=== PATIENT | female | born 1935 | race Caucasian/White ===

== ENCOUNTER 2017-08-02 10:39 | Emergency (ER) | payer MEDICARE, OTHER ==
[~2017-08-02] VITALS: Ht 160 cm; Wt 60.8 kg
[~2017-08-02 10:39] MED LIST: NKM; NORCO 5-325 TA1 EACH ORAL
[2017-08-02] MEDS ORDERED: Tetanus/Diptheria/Pertussis Vaccine 0.5ml Syr IM ONE (11:30)
[2017-08-02] MEDS ORDERED: AUGMENTIN 875-1 EAC1 ORAL (11:49)
[2017-08-02 12:10] VITALS: BP 107/60
--- NOTE | 2017-08-02 14:09 | Emergency Room Report ---
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 family reports that the patient does have some underlying dementia She also does get out of the house intermittently and the exact source of injury is not clear Otherwise no reports of fever Patient denies any knee pain denies any ankle pain/ Allergies: Coded Allergies: No Known Allergies (Unverified , 08/10/13) Patient History Past Medical History: see triage record Pertinent Family History: none Last Menstrual Period: na Reviewed Nursing Documentation: PMH: Agreed, PSxH: Agreed Nursing Documentation-PMH Past Medical History: No History, Except For Hx Cardiac Problems: Yes Hx Hypertension: Yes Hx Pacemaker: Yes Hx Diabetes: Yes Review of Systems All Other Systems: negative except mentioned in HPI Physical Exam Vital Signs Date Time Temp Pulse Resp B/P (MAP) Pulse Ox O2 Delivery O2 Flow Rate FiO2 08/02/17 10:53 97.8 61 18 92/56 96 Room Air 97.9 Sp02 EP Interpretation: reviewed, normal General Appearance: well appearing, no apparent distress Head: normocephalic, atraumatic Eyes: bilateral eye PERRL, bilateral eye EOMI ENT: normal pharynx Neck: supple, thyroid normal Respiratory: lungs clear, normal breath sounds Cardiovascular #1: regular rate, rhythm Gastrointestinal: non tender, soft Musculoskeletal: normal inspection Neurologic: alert, responsive Skin: other - Patient has a semicircular approximately 3 cm laceration, appears to be secondarily scabbing already, no signs of surrounding erythema or fluctuance Lymphatic: no adenopathy Procedures Laceration/Wound Repair Laceration/Wound Repair : Consent: Verbal Wound Location: lower extremity Wound's Depth, Shape: into muscle, irregular Wound Length (cm): 3 Wound Explored: contaminated Irrigated w/ Saline (ccs): 100 Betadine Prep?: Yes Wound Debrided: minimal Layer Closure?: No Sterile Dressing Applied?: Yes Patient Tolerated: Well Complications: None Progress After appropriate cleansing patient had Steri-Strips applied the top of the laceration, the area has started to secondarily heal, further suture would be an appropriate Medical Decision Making Diagnostic Impression: Primary Impression: laceration ER Course Patient had wound care as noted above Area does not appear to be actively infected Already secondarily healing therefore suture was not applied Patient placed on oral antibiotics requires close outpatient follow-up as was concern for possible secondary infection Specifically given the patient's diabetic history Last Vital Signs Date Time Temp Pulse Resp B/P (MAP) Pulse Ox O2 Delivery O2 Flow Rate FiO2 08/02/17 12:10 98.0 87 20 107/60 99 Room Air 98.0 Status: improved Disposition: HOME, SELF-CARE Condition: Improved Scripts Amoxicillin/Potassium Clav 875-125* (AUGMENTIN 875-125 TABLET*) 1 Each Tablet 1 TAB ORAL TWICE A DAY, #14 TAB Prov: Albino Santos DO 08/02/17 Referrals: NOT CHOSEN IPA/MD,REFERRING (PCP) Patient Instructions: Skin Tear Care, [id number], Nonsutured Laceration Care Additional Instructions: Patient is provided with the discharge instructions notified to follow up with primary doctor in the next 2-3 days otherwise return to the er with any worsening symptoms. Please note that this report is being documented using AccuRev technology. This can lead to erroneous entry secondary to incorrect interpretation by the dictating instrument. Albino Santos DO Aug 02, 2017 14:09
== END 2017-08-02 12:10 | disposition home or self-care (01) ==
LOC: EMR 11:30
DX: S81.812A Laceration without foreign body, left lower leg, initial encounter (principal); X58.XXXA Exposure to other specified factors, initial encounter; Y92.9 Unspecified place or not applicable; Z23 Encounter for immunization; I10 Essential (primary) hypertension; E11.9 Type 2 diabetes mellitus without complications; Z95.0 Presence of cardiac pacemaker
CPT/HCPCS: 90471; 90715; 99284

== ENCOUNTER 2017-08-27 15:17 | Emergency (ER) | payer MEDICARE, OTHER ==
[~2017-08-27] VITALS: Ht 152.4 cm; Wt 49.9 kg
[~2017-08-27 15:17] MED LIST changes: +AUGMENTIN 875-1 EAC1 ORAL
[2017-08-27] MEDS ORDERED: Sodium Chloride 500ML 500 ML IV ONE (15:27)
[2017-08-27] MEDS ORDERED: Lidocaine 2% Visc 15ml soln ORAL ONE (15:30)
[2017-08-27] MEDS ORDERED: Dicyclomine HCl 10mg/5ml oral soln ORAL ONE (15:30)
[2017-08-27] MEDS ORDERED: Mylanta II UD 30ml ORAL ONE (15:30)
--- NOTE | 2017-08-27 15:34 | Emergency Room Report ---
History of Present Illness General Chief Complaint: Abdominal Pain Source: Patient Present Illness HPI Patient is an 82-year-old female brought in by EMS after increased left-sided abdominal pain. Patient reports having increased abdominal pain associated with nausea and vomiting. She reports having a tightness sensation. She denies any hematemesis. She denies any bloody stools. Patient denies any dysuria. The patient states she's had last bowel movement yesterday. She believes that she has a hernia to the left lower abdomen. The patient had prior history of pacemaker as well as the abdominal surgery for hernia. Allergies: Coded Allergies: No Known Allergies (Unverified , 08/10/13) Patient History Past Medical History: see triage record Past Surgical History: pacemaker Reviewed Nursing Documentation: PMH: Agreed; PSxH: Agreed Nursing Documentation-PMH Past Medical History: No Stated History Hx Cardiac Problems: Yes Hx Hypertension: Yes Hx Pacemaker: Yes Hx Diabetes: Yes Review of Systems All Other Systems: negative except mentioned in HPI Physical Exam Vital Signs Date Time Temp Pulse Resp B/P (MAP) Pulse Ox O2 Delivery O2 Flow Rate FiO2 08/27/17 15:10 98.0 78 16 142/60 98 Room Air 98.1 Sp02 EP Interpretation: reviewed, normal General Appearance: normal inspection, well appearing, no apparent distress, alert, GCS 15, Chronically Ill Head: atraumatic ENT: normal ENT inspection, hearing grossly normal, normal voice Neck: normal inspection, full range of motion, supple, no bony tend Respiratory: normal inspection, lungs clear, normal breath sounds, no respiratory distress, no retraction, no wheezing Cardiovascular #1: regular rate, rhythm, no edema Gastrointestinal: normal inspection, normal bowel sounds, non tender, soft, no guarding, no hernia Genitourinary: no CVA tenderness Musculoskeletal: normal inspection, back normal, normal range of motion Neurologic: normal inspection, alert, oriented x3, responsive, cord maker III-XII nml as tested, speech normal Psychiatric: normal inspection, judgement/insight normal, mood/affect normal Skin: normal inspection, normal color, no rash Medical Decision Making Diagnostic Impression: Primary Impression: Abdominal pain Additional Impression: Colitis ER Course Patient presented for abdominal pain. Differential diagnoses included ischemic bowel, appendicitis, perforated viscus, abdominal aortic aneurysm, inferior myocardial infarction, viral gastroenteritis. Because of complexity of patient' s case laboratory testing and imaging studies were ordered. CT imaging of the abdomen pelvis read by radiology showed evidence of the colon wall thickening consistent with possible colitis. Laboratory testing was unremarkable. Patient was noted to have improvement in discomfort after IV medications for nausea. The patient was offered admission for further evaluation and treatment with [place] seismic interpreter. The patient declined inpatient treatment stated she wanted to go home. Patient was advised that she could return at any time. Labs Test 08/27/17 15:55 08/27/17 17:30 White Blood Count 6.6 K/UL (4.8-10.8) Red Blood Count 3.51 M/UL (4.20-5.40) Hemoglobin 11.7 G/DL (12.0-16.0) Hematocrit 34.0 % (37.0-47.0) Mean Corpuscular Volume 97 FL (80-99) Mean Corpuscular Hemoglobin 33.4 PG (27.0-31.0) Mean Corpuscular Hemoglobin Concent 34.6 G/DL (32.0-36.0) Red Cell Distribution Width 14.3 % (11.6-14.8) Platelet Count 194 K/UL (150-450) Mean Platelet Volume 7.9 FL (6.5-10.1) Neutrophils (%) (Auto) 61.7 % (45.0-75.0) Lymphocytes (%) (Auto) 29.2 % (20.0-45.0) Monocytes (%) (Auto) 6.4 % (1.0-10.0) Eosinophils (%) (Auto) 2.5 % (0.0-3.0) Basophils (%) (Auto) 0.3 % (0.0-2.0) Prothrombin Time 9.6 SEC (9.30-11.50) Prothromb Time International Ratio 0.9 (0.9-1.1) Activated Partial Thromboplast Time 24 SEC (23-33) Sodium Level 145 MMOL/L (136-145) Potassium Level 3.5 MMOL/L (3.5-5.1) Chloride Level 110 MMOL/L (98-107) Carbon Dioxide Level 26 MMOL/L (21-32) Anion Gap 9 mmol/L (5-15) Blood Urea Nitrogen 18 mg/dL (7-18) Creatinine 1.0 MG/DL (0.55-1.30) Estimat Glomerular Filtration Rate mL/min (>60) Glucose Level 95 MG/DL (74-106) Calcium Level 8.9 MG/DL (8.5-10.1) Total Bilirubin 0.4 MG/DL (0.2-1.0) Aspartate Amino Transf (AST/SGOT) 15 U/L (15-37) Alanine Aminotransferase (ALT/SGPT) 15 U/L (12-78) Alkaline Phosphatase 51 U/L (46-116) Troponin I 0.002 ng/mL (0.000-0.056) Total Protein 6.3 G/DL (6.4-8.2) Albumin 3.5 G/DL (3.4-5.0) Globulin 2.8 g/dL Albumin/Globulin Ratio 1.2 (1.0-2.7) Lipase 298 U/L (73-393) Urine Color Pale yellow Urine Appearance Clear Urine pH 5 (4.5-8.0) Urine Specific [place] 1.015 (1.005-1.035) Urine Protein Negative (NEGATIVE) Urine Glucose (UA) Negative (NEGATIVE) Urine Ketones Negative (NEGATIVE) Urine Occult Blood 1+ (NEGATIVE) Urine Nitrite Negative (NEGATIVE) Urine Bilirubin Negative (NEGATIVE) Urine Urobilinogen Normal MG/DL (0.0-1.0) Urine Leukocyte Esterase Negative (NEGATIVE) Urine RBC 0-2 /HPF (0 - 2) Urine WBC 0 /HPF (0 - 2) Urine Squamous Epithelial Cells None /LPF (NONE/OCC) Urine Bacteria Occasional /HPF (NONE) Last Vital Signs Date Time Temp Pulse Resp B/P (MAP) Pulse Ox O2 Delivery O2 Flow Rate FiO2 08/27/17 15:10 98.0 78 16 142/60 98 Room Air 98.1 Status: improved Disposition: HOME, SELF-CARE Condition: Stable Scripts Dicyclomine Hcl* (DICYCLOMINE HCL*) 10 Mg Capsule 10 MG PO QID, #20 CAP Prov: Randall Aguirre 08/27/17 Famotidine (PEPCID) 20 Mg Tablet 20 MG ORAL BEDTIME, #7 TAB 0 Refills Prov: Randall Aguirre 08/27/17 Randall Aguirre Aug 27, 2017 15:34
[2017-08-27 16:28] LABS: BASOPHILS % (AUTO) 0.3 % (0.0-2.0); EOSINOPHILS % (AUTO) 2.5 % (0.0-3.0); HEMOGLOBIN 11.7 G/DL (12.0-16.0); LYMPHOCYTES % (AUTO) 29.2 % (20.0-45.0); MEAN CORPUSCULAR VOLUME 97 FL (80-99); MONOCYTES % (AUTO) 6.4 % (1.0-10.0); NEUTROPHILS % (AUTO) 61.7 % (45.0-75.0); PLATELET COUNT 194 K/UL (150-450); RED BLOOD COUNT 3.51 M/UL (4.20-5.40); RED CELL DISTRIBUTION WIDTH 14.3 % (11.6-14.8); WHITE BLOOD COUNT 6.6 K/UL (4.8-10.8)
[2017-08-27 16:35] LABS: ANION GAP 9 mmol/L (5-15); BLOOD UREA NITROGEN 18 mg/dL (7-18); CALCIUM 8.9 MG/DL (8.5-10.1); CARBON DIOXIDE 26 MMOL/L (21-32); CHLORIDE 110 MMOL/L (98-107); POTASSIUM 3.5 MMOL/L (3.5-5.1); SODIUM 145 MMOL/L (136-145)
[2017-08-27 16:39] LABS: ALANINE AMINOTRANSFERASE 15 U/L (12-78); ALBUMIN 3.5 G/DL (3.4-5.0); ALBUMIN/GLOBULIN RATIO 1.2 (1.0-2.7); ALKALINE PHOSPHATASE 51 U/L (46-116); ASPARTATE AMINO TRANSFERASE 15 U/L (15-37); BILIRUBIN,TOTAL 0.4 MG/DL (0.2-1.0)
[2017-08-27 16:42] LABS: INR 0.9 (0.9-1.1)
[2017-08-27 16:55] VITALS: BP 163/83
[2017-08-27] MEDS ORDERED: UNOBMED (18:04)
[2017-08-27 18:11] LABS: APPEARANCE,URINE CLEAR; BILIRUBIN, URINE NEGATIVE (NEGATIVE); COLOR,URINE PALE YELLOW; GLUCOSE, URINE (UA) NEGATIVE (NEGATIVE); KETONES,URINE NEGATIVE (NEGATIVE); LEUKOCYTE ESTERASE ,URINE NEGATIVE (NEGATIVE); NITRITE,URINE NEGATIVE (NEGATIVE); PH,URINE 5 (4.5-8.0); PROTEIN,URINE NEGATIVE (NEGATIVE); UROBILINOGEN,URINE NORMAL MG/DL (0.0-1.0)
[2017-08-27] MEDS ORDERED: PEPCID20 MG ORAL (18:26)
[2017-08-27] MEDS ORDERED: DICYCLOMINE HCL10 MG PO (18:26)
[2017-08-27 18:40] VITALS: BP 163/83
--- NOTE | 2017-08-28 08:41 | Diagnostic Imaging Report ---
Clinical Indication: Increasing left-sided abdominal pain, nausea, vomiting, tightness sensation Technique: No oral contrast utilized, per emergency room physician request IV administration nonionic contrast. Venous phase spiral acquisition obtained through the abdomen and pelvis. Multiplanar reconstructions were generated. Total dose length product 654.97 mGycm. CTDIvol(s) 12.67 mGy. Dose reduction achieved using automated exposure control Comparison: none Findings: There is colonic diverticulosis. No evidence of diverticulitis. The appendix is normal. Small bowel loops are fluid-filled with equivocally mildly enhancing shafer. There is a moderate size hiatal hernia. The stomach and duodenum are unremarkable. No small bowel distention. No free or loculated intraperitoneal air or fluid. There are small bilateral inguinal hernias which contain only fat The liver, gallbladder, bile ducts, pancreas, spleen, adrenals are unremarkable. There are bilateral renal parapelvic cysts. There are bilateral subcentimeter renal parenchymal lesions which are too small to characterize. No retroperitoneal or mesenteric mass or adenopathy. No pelvic mass or adenopathy. Uterus and adnexal structures are unremarkable. There is bilateral L4 spondylolysis, grade 2 L4 on L5 spondylolisthesis and marked secondary degenerative change, as well as degenerative spondylosis elsewhere. There is a compression fracture deformity of the T9 vertebral body, age indeterminate. Pacemaker wires are seen in the heart. Compressive atelectatic changes are seen at both lung bases. The heart is enlarged Impression: Mildly fluid-filled small bowel loops with slightly striking bowel wall enhancement; of uncertain significance, could indicate mild enteritis changes No other acute abnormality Diverticulosis. No evidence of diverticulitis Moderate size hiatal hernia Cardiomegaly Bilateral L4 spondylolysis, resultant grade 2 no 4 on L5 spondylolisthesis and secondary degenerative change T9 vertebral body compression fracture, age indeterminate. Consider MRI for better characterization if this is considered clinically relevant Bilateral renal parapelvic cysts. Bilateral subcentimeter renal parenchymal lesions which are too small to characterize, most likely benign simple cortical cysts. No further follow-up necessary Other findings as noted, including pacemaker, small fat-containing bilateral inguinal hernias, bilateral basilar compressive pulmonary parenchymal atelectasis. This agrees with the preliminary interpretation provided overnight by [facility] teleradiology service. The CT scanner at [facility] is accredited by the [employer] and the scans are performed using protocols designed to limit radiation exposure to as low as reasonably achievable to attain images of sufficient resolution adequate for diagnostic evaluation.
--- NOTE | 2017-08-28 14:57 | Cardiology Report ---
APPROVED REPORT EKG Measurement Heart [id number] ID [id number] Normal sinus rhythm Left axis deviation Abnormal ECG
== END 2017-08-27 18:40 | disposition home or self-care (01) ==
LOC: EDBD 15:17 → EMR 17:58 → CANBEDREQ 18:33 → EMR 18:40
DX: K52.9 Noninfective gastroenteritis and colitis, unspecified (principal); K57.30 Diverticulosis of large intestine without perforation or abscess without bleeding; K44.9 Diaphragmatic hernia without obstruction or gangrene; M43.06 Spondylolysis, lumbar region; M48.54XA Collapsed vertebra, not elsewhere classified, thoracic region, initial encounter for fracture; I10 Essential (primary) hypertension; Z95.0 Presence of cardiac pacemaker; E11.9 Type 2 diabetes mellitus without complications
CPT/HCPCS: 36415; 74177; 80053; 81003; 82962; 83690; 84484; 85025; 85610; 85730; 86850; 86900; 86901; 93005; 96374; 96375; 99284; J2405; J7040; Q9967

== ENCOUNTER 2018-01-23 21:33 | Emergency (ER) | payer MEDICARE, OTHER ==
[~2018-01-23] VITALS: Ht 162.6 cm; Wt 59.0 kg
[~2018-01-23 21:33] MED LIST changes: +DICYCLOMINE HCL10 MG PO; +PEPCID20 MG ORAL; +UNOBMED
[2018-01-23 21:55] VITALS: BP 162/74
--- NOTE | 2018-01-23 22:16 | Emergency Room Report ---
History of Present Illness General Chief Complaint: Dyspnea/Respdistress Source: EMS Present Illness HPI This 82F reportedly called 911 herself. The paramedics known this patient and state usually family keeps her there if/when she calls 911 but there was no family tonight. Pt. c/o "can't breathe." However while she says that she is very excited, lively, with no difficulty. She speaks only [place] and we had a transformation consultant on the phone. There really is nothing new. No cp, no cough, no fever. No travel. We spoke with her granddaughter who confirmed nothing new and she asked us to keep patient here overnight b/c it was hard for her to come pick her up. Reportedly no change in meds. Hx. limited due to age, language. Allergies: Coded Allergies: No Known Allergies (Unverified , 08/10/13) Patient History Limited by: language barrier, age Nursing Documentation-[facility] Past Medical History: No History, Except For Hx Cardiac Problems: Yes Hx Hypertension: Yes Hx Pacemaker: Yes Hx Asthma: Yes Hx Diabetes: Yes Review of Systems All Other Systems: limited Physical Exam Vital Signs Date Time Temp Pulse Resp B/P (MAP) Pulse Ox O2 Delivery O2 Flow Rate FiO2 01/23/18 21:26 98.0 88 16 162/74 100 Room Air 98.1 General Appearance: well appearing, no apparent distress Head: normocephalic, atraumatic ENT: hearing grossly normal, normal voice Neck: full range of motion, supple Respiratory: no respiratory distress, speaking full sentences Musculoskeletal: no calf tenderness Neurologic: alert, normal gait Psychiatric: anxious Skin: no rash Medical Decision Making Diagnostic Impression: Primary Impression: Anxiety ER Course Pt. is not at all dyspneic. RR 14-16, 99% on RA, able to talk with great energy , full paragraphs without difficulty. She is an anxious person. On PE no acute abnorm. No w/u needed at this time. PE, ACS, pericarditis, pleural effusion, COPD exacerbation, asthma exacerbation , CHF exacerbation, pulmonary edema, bronchitis, URI, pneumonia A: Anxiety Last Vital Signs Date Time Temp Pulse Resp B/P (MAP) Pulse Ox O2 Delivery O2 Flow Rate FiO2 01/23/18 21:26 98.0 88 16 162/74 100 Room Air 98.1 Status: improved Disposition: HOME, SELF-CARE Condition: Stable Patient Instructions: Shortness of Breath, [id number] Marcos Mccrary M.D. Jan 23, 2018 22:16
[2018-01-23] MEDS ORDERED: LORazepam 0.5mg tab ORAL ONE (22:30)
[2018-01-24 02:50] VITALS: BP 162/74
== END 2018-01-24 02:54 | disposition home or self-care (01) ==
LOC: EDBD 21:33 → EMR 22:00
DX: F41.9 Anxiety disorder, unspecified (principal)
CPT/HCPCS: 99283

== ENCOUNTER 2018-01-31 11:30 | Inpatient (IN) | payer MEDICARE, OTHER ==
[~2018-01-31] VITALS: Ht 162.6 cm; Wt 60.8 kg
[2018-01-31 11:48] VITALS: BP 122/65
[2018-01-31] MEDS ORDERED: ASPIRIN-LOW81 MG ORAL (11:51)
[2018-01-31] MEDS ORDERED: TENORMIN25 MG ORAL (11:51)
--- NOTE | 2018-01-31 11:57 | Emergency Room Report ---
History of Present Illness General Chief Complaint: General Complaint Source: Patient, Medical Record Present Illness HPI Patient presents with complaints of shortness of breath She has also had several falls with contusion to the left hip area Patient saw me reports that the patient had called ambulance several days ago with asthma exacerbation However they were told that it was anxiety and did not come to the emergency room At this time patient feels that her breathing is worsened when laying flat She has pain to the left hip area with obvious bruising Denies any vomiting or diarrhea denies any pleurisy Allergies: Coded Allergies: No Known Allergies (Unverified , 08/10/13) Patient History Past Medical History: see triage record Pertinent Family History: none Last Menstrual Period: unk Reviewed Nursing Documentation: PMH: Agreed; PSxH: Agreed Nursing Documentation-PMH Hx Cardiac Problems: Yes Hx Hypertension: Yes Hx Pacemaker: Yes Hx Asthma: Yes Hx Diabetes: Yes Review of Systems All Other Systems: negative except mentioned in HPI Physical Exam Vital Signs Date Time Temp Pulse Resp B/P (MAP) Pulse Ox O2 Delivery O2 Flow Rate FiO2 01/31/18 11:38 98.4 64 20 122/65 Room Air 98.4 01/31/18 11:48 99 Sp02 EP Interpretation: reviewed, normal General Appearance: mild distress - Appears short of breath Head: normocephalic, atraumatic Eyes: bilateral eye PERRL, bilateral eye EOMI ENT: normal pharynx, no angioedema Neck: supple, thyroid normal Respiratory: no retraction, no accessory muscle use, crackles - And wheezing bilaterally Cardiovascular #1: regular rate, rhythm, no edema Gastrointestinal: non tender, soft Musculoskeletal: other - Bruising to the left hip with ecchymosis Neurologic: alert, oriented x3, responsive Skin: other - As above Lymphatic: no adenopathy Procedures Critical Care Time Critical Care Time 50 minutesMultiple re-evaluations initial critical presentation concerning for cardiopulmonary arrest and injury not including any procedural time Medical Decision Making Diagnostic Impression: Primary Impression: NSTEMI (non-ST elevated myocardial infarction) Additional Impressions: CHF (congestive heart failure) Pelvic fracture ER Course Patient is a fairly complex patient with multiple differential to consideration including but not limited to cardiac cardiopulmonary and vascular emergencies Patient appears short of breath some wheezing was noted as well Breathing treatment was appropriately provided Patient has done better except also reveals some congestion Lasix was provided Patient's troponin level is elevated BNP is elevated EKG shows a paced rhythm patient at this time does not have any chest pain And shows concerning findings of non-ST elevation WA Patient's CAT scan of the pelvic area also shows multiple fractures Orthopedic consultation has been made Patient will require admission and further evaluation Labs Test 01/31/18 12:00 White Blood Count 6.4 K/UL (4.8-10.8) Red Blood Count 3.08 M/UL (4.20-5.40) Hemoglobin 8.9 G/DL (12.0-16.0) Hematocrit 28.6 % (37.0-47.0) Mean Corpuscular Volume 93 FL (80-99) Mean Corpuscular Hemoglobin 28.9 PG (27.0-31.0) Mean Corpuscular Hemoglobin Concent 31.1 G/DL (32.0-36.0) Red Cell Distribution Width 17.5 % (11.6-14.8) Platelet Count 328 K/UL (150-450) Mean Platelet Volume 7.2 FL (6.5-10.1) Neutrophils (%) (Auto) 70.8 % (45.0-75.0) Lymphocytes (%) (Auto) 21.9 % (20.0-45.0) Monocytes (%) (Auto) 5.7 % (1.0-10.0) Eosinophils (%) (Auto) 1.3 % (0.0-3.0) Basophils (%) (Auto) 0.3 % (0.0-2.0) Sodium Level 144 MMOL/L (136-145) Potassium Level 4.0 MMOL/L (3.5-5.1) Chloride Level 111 MMOL/L (98-107) Carbon Dioxide Level 22 MMOL/L (21-32) Anion Gap 11 mmol/L (5-15) Blood Urea Nitrogen 11 mg/dL (7-18) Creatinine 1.0 MG/DL (0.55-1.30) Estimat Glomerular Filtration Rate mL/min (>60) Glucose Level 143 MG/DL (74-106) Calcium Level 8.9 MG/DL (8.5-10.1) Total Bilirubin 0.6 MG/DL (0.2-1.0) Aspartate Amino Transf (AST/SGOT) 27 U/L (15-37) Alanine Aminotransferase (ALT/SGPT) 24 U/L (12-78) Alkaline Phosphatase 70 U/L (46-116) Total Creatine Kinase 488 U/L (26-308) Creatine Kinase MB 2.2 NG/ML (0.0-3.6) Creatine Kinase MB Relative Index 0.4 Troponin I 0.457 ng/mL (0.000-0.056) Pro-B-Type Natriuretic Peptide 72436 pg/mL (0-125) Total Protein 6.5 G/DL (6.4-8.2) Albumin 3.2 G/DL (3.4-5.0) Globulin 3.3 g/dL Albumin/Globulin Ratio 1.0 (1.0-2.7) Lipase 180 U/L (73-393) EKG Diagnostic Results Rate: other - pa Rhythm: other ST Segments: no acute changes Rhythm Strip Diag. Results EP Interpretation: yes Rate: 60 Rhythm: no PVC's, no ectopy, other - paced Chest X-Ray Diagnostic Results Chest X-Ray Diagnostic Results : Chest X-Ray Ordered: Yes # of Views/Limited/Complete: 1 View Indication: Chest Pain EP Interpretation: Yes Interpretation: no pneumothorax, other - Cardiomegaly, pulmonary congestion Impression: Other - Acute CHF Other X-Ray Diagnostic Results Other X-Ray Diagnostic Results #1: X-Ray ordered: Pelvic # of Views/Limited Vs Complete: 1 View Indication: Pain EP Interpretation: Yes Interpretation: no soft tissue swelling, other - Superior and inferior pubic rami fractures, displaced, Impression: Other - Superior and inferior Other X-Ray Diagnostic Results #2: X-Ray ordered: left femur # of Views/Limited Vs Complete: 2 View Indication: Pain EP Interpretation: Yes Interpretation: no dislocation, no soft tissue swelling, no fractures Impression: No acute disease - Of the femur Electronically Signed by: Albino Santos DO CT/MRI/US Diagnostic Results CT/MRI/US Diagnostic Results : Impression CT pelvicComminuted left parasymphyseal fracture extending to the proximal portions of the left superior and inferior pubic rami. Mildlydistracted fracture of the superior left iliacwing paralleling and extending to the left SI joint Bilateral L4 spondylolysiswith associated anterolisthesis of L4 relative to L5with 4 mmoffset, stable compared to 08/28/17. Degenerative changeswith disc space loss, endplate osteophytes, and bilateral facet arthrosis, at L4- 5 and L5-S1. Bilateral inguinal hernias containing loops of small bowel. No evidence of obstruction. Last Vital Signs Date Time Temp Pulse Resp B/P (MAP) Pulse Ox O2 Delivery O2 Flow Rate FiO2 01/31/18 11:48 98.4 20 122/65 99 Room Air 98.4 01/31/18 11:38 64 Status: improved Disposition: ADMITTED INPATIENT Condition: Critical Albino Santos DO Jan 31, 2018 11:57
[2018-01-31] MEDS ORDERED: Levalbuterol Inh UD 1.25mg/0.5ml HHN ONE (12:00)
[2018-01-31] MEDS ORDERED: Morphine Sulfate 2mg/ml Inj IVP ONE (12:00)
[2018-01-31 12:32] LABS: BASOPHILS % (AUTO) 0.3 % (0.0-2.0); EOSINOPHILS % (AUTO) 1.3 % (0.0-3.0); HEMATOCRIT 28.6 % (37.0-47.0); HEMOGLOBIN 8.9 G/DL (12.0-16.0); LYMPHOCYTES % (AUTO) 21.9 % (20.0-45.0); MEAN CORPUSCULAR VOLUME 93 FL (80-99); MONOCYTES % (AUTO) 5.7 % (1.0-10.0); NEUTROPHILS % (AUTO) 70.8 % (45.0-75.0); PLATELET COUNT 328 K/UL (150-450); RED BLOOD COUNT 3.08 M/UL (4.20-5.40); RED CELL DISTRIBUTION WIDTH 17.5 % (11.6-14.8); WHITE BLOOD COUNT 6.4 K/UL (4.8-10.8)
[2018-01-31 12:45] LABS: ANION GAP 11 mmol/L (5-15); BLOOD UREA NITROGEN 11 mg/dL (7-18); CALCIUM 8.9 MG/DL (8.5-10.1); CARBON DIOXIDE 22 MMOL/L (21-32); CHLORIDE 111 MMOL/L (98-107); SODIUM 144 MMOL/L (136-145)
[2018-01-31 12:57] LABS: ALANINE AMINOTRANSFERASE 24 U/L (12-78); ALBUMIN 3.2 G/DL (3.4-5.0); ALKALINE PHOSPHATASE 70 U/L (46-116); ASPARTATE AMINO TRANSFERASE 27 U/L (15-37); BILIRUBIN,TOTAL 0.6 MG/DL (0.2-1.0); CKMB 2.2 NG/ML (0.0-3.6); CREATINE KINASE 488 U/L (26-308)
[2018-01-31] MEDS ORDERED: dilTIAZem HCl 25mg/5ml Inj IV PRN (14:00)
[2018-01-31 14:08] VITALS: BP 126/70
--- NOTE | 2018-01-31 14:36 | Cardiology Progress Note ---
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 gi bleed reproted otoniel contreras post pci called into dr mina [id number] Objective Last 24 Hour Vital Signs Date Time Temp Pulse Resp B/P (MAP) Pulse Ox O2 Delivery O2 Flow Rate FiO2 01/31/18 14:08 98.0 71 19 126/70 95 Room Air 98.0 01/31/18 12:52 79 23 100 Room Air 21 01/31/18 12:43 72 14 Room Air 21 01/31/18 12:43 72 14 98 Room Air 21 01/31/18 12:10 98.4 01/31/18 11:48 98.4 20 122/65 99 Room Air 98.4 01/31/18 11:38 98.4 64 20 122/65 Room Air 98.4 Laboratory Tests Test 01/31/18 12:00 White Blood Count 6.4 K/UL (4.8-10.8) Red Blood Count 3.08 M/UL (4.20-5.40) L Hemoglobin 8.9 G/DL (12.0-16.0) L Hematocrit 28.6 % (37.0-47.0) L Mean Corpuscular Volume 93 FL (80-99) Mean Corpuscular Hemoglobin 28.9 PG (27.0-31.0) Mean Corpuscular Hemoglobin Concent 31.1 G/DL (32.0-36.0) L Red Cell Distribution Width 17.5 % (11.6-14.8) H Platelet Count 328 K/UL (150-450) Mean Platelet Volume 7.2 FL (6.5-10.1) Neutrophils (%) (Auto) 70.8 % (45.0-75.0) Lymphocytes (%) (Auto) 21.9 % (20.0-45.0) Monocytes (%) (Auto) 5.7 % (1.0-10.0) Eosinophils (%) (Auto) 1.3 % (0.0-3.0) Basophils (%) (Auto) 0.3 % (0.0-2.0) Sodium Level 144 MMOL/L (136-145) Potassium Level 4.0 MMOL/L (3.5-5.1) Chloride Level 111 MMOL/L (98-107) H Carbon Dioxide Level 22 MMOL/L (21-32) Anion Gap 11 mmol/L (5-15) Blood Urea Nitrogen 11 mg/dL (7-18) Creatinine 1.0 MG/DL (0.55-1.30) Estimat Glomerular Filtration Rate mL/min (>60) Glucose Level 143 MG/DL (74-106) H Calcium Level 8.9 MG/DL (8.5-10.1) Total Bilirubin 0.6 MG/DL (0.2-1.0) Aspartate Amino Transf (AST/SGOT) 27 U/L (15-37) Alanine Aminotransferase (ALT/SGPT) 24 U/L (12-78) Alkaline Phosphatase 70 U/L (46-116) Total Creatine Kinase 488 U/L (26-308) H Creatine Kinase MB 2.2 NG/ML (0.0-3.6) Creatine Kinase MB Relative Index 0.4 Troponin I 0.457 ng/mL (0.000-0.056) Pro-B-Type Natriuretic Peptide 57223 pg/mL (0-125) H Total Protein 6.5 G/DL (6.4-8.2) Albumin 3.2 G/DL (3.4-5.0) L Globulin 3.3 g/dL Albumin/Globulin Ratio 1.0 (1.0-2.7) Lipase 180 U/L (73-393) Ihsan Fischer MD Jan 31, 2018 14:35
[2018-01-31] MEDS ORDERED: Nitroglycerin Subl 0.4mg tab SL PRN (14:43)
[2018-01-31] MEDS ORDERED: Miralax 17gm pkt ORAL PRN (14:43)
[2018-01-31] MEDS ORDERED: Albuterol/Ipratropium 3ml neb HHN PRN (14:43)
[2018-01-31] MEDS ORDERED: Enalaprilat 2.5mg/2ml Inj IV PRN (14:44)
[2018-01-31] MEDS ORDERED: Norco 5mg/325mg tab ORAL PRN ×2 (14:47→23:45)
[2018-01-31] MEDS ORDERED: Ketorolac 30mg Inj IV PRN (14:48)
[2018-01-31] MEDS ORDERED: Morphine Sulfate 2mg/ml Inj IVP PRN (14:48)
[2018-01-31 15:54] VITALS: BP 110/79
[2018-01-31 16:50] VITALS: BP 134/78
--- NOTE | 2018-01-31 18:30 | Consultation ---
DATE OF CONSULTATION: 01/31/2018 CARDIOLOGY CONSULTATION CONSULTING PHYSICIAN: Ihsan Fischer M.D. REFERRING PHYSICIAN: Rod Mancera M.D. REASON FOR REFERRAL: Abnormal cardiac enzymes. HISTORY OF PRESENT ILLNESS: This is an elderly Nigerien speaking female, who really is a poor historian. The patient was brought to the emergency room at [facility], may have had a fall, the timing of which is not really clear and part of the workup was cardiac enzymes, which were mildly abnormal and this consultation was subsequently requested. The patient is being admitted to the hospital. The patient herself denies any pain. As much as I can ascertain, she does indicate that she has had some shortness of breath. No palpitations. No dizziness. She indicates she fell from a bed to the floor, but not clear when this occurred. When she presented to the emergency room, apparently, she was complaining of shortness of breath, had several falls with contusion to her lip area, apparently had an several days ago with asthma exacerbation, and she was told that was anxiety. She does not want to come to the emergency room and apparently, she has had some shortness of breath that worsens on laying down. The patient also has had delirium while she is in the intensive care unit as noted above as well as ischemic cardiomyopathy with ejection fraction most recently at [facility] of approximately 30%. Based on last ejection fraction at [facility] on 12/24/2017, it was actually an ejection fraction of 23% with moderate mitral regurgitation and severe tricuspid regurgitation being noted with a PA pressure in the 50s. PAST MEDICAL HISTORY: Positive for recent hospitalization at [facility] where she had presented with hypotension and was noted to have a troponin of 17, underwent cardiac consultation by Dr. Oliver, was noted to have basically severe coronary disease, not be a candidate for cardiac catheterization. The patient underwent percutaneous coronary intervention of the first obtuse marginal and the left anterior descending artery. She also has significant right coronary artery disease, but the history indicates that the patient had severe agitation and was subsequently discharged home relatively quickly after her percutaneous coronary intervention. She had drug-eluting stent that was placed in the obtuse marginal 1 and another one in the 90% stenosis of left anterior descending artery. Her past medical history is positive for diabetes, hyperlipidemia, hypertension, sick sinus syndrome, status post pacemaker implantation, she has two pacemakers, one that was placed in 1999 and the other one was in 2017 for sick sinus syndrome. MEDICATIONS: Previously had been listed as including metformin, atorvastatin, Detrol, Klonopin, Tenormin, Diovan HCT, Prilosec, aspirin, Plavix, and Crestor. ALLERGIES: She has no allergy to medications. [facility] data indicates the allergies to fish product derivatives and vancomycin. SOCIAL HISTORY: She denies any smoking or drinking. REVIEW OF SYSTEMS: GASTROINTESTINAL: She denies any abdominal pain. Denies any vomiting. Denies any diarrhea. Denies any bloody or black bowel movement. GENITOURINARY: Denies any problem with her urination. PULMONARY: Denies any coughing. CONSTITUTIONAL: Denies any fevers, chills, or night sweats. PHYSICAL EXAM: GENERAL: Shows to be elderly female, in no respiratory distress. She is lying down with approximately 10 to 20 degrees head of bed elevation. NECK: Supple. LUNGS: Appear to be relatively clear to auscultation and percussion. CARDIAC: S1 is normal. S2 is normal. Regular rate. Holosystolic regurgitant murmur noted. ABDOMEN: Soft and nontender. Positive bowel sounds. EXTREMITIES: There is no edema. There is ecchymosis of the area around the left hip. NEUROLOGICAL: She is awake, alert, and responsive. LABORATORY DATA: Her blood tests at this time show white count of 6.4 with a hemoglobin of 8.9 and platelet count of 328,000. Sodium 144, potassium 4.0, chloride 111, bicarb 22, BUN of 11, creatinine 1.0, and glucose of 143. Calcium is 8.9. The CK of 488. ProBNP of 3300. Troponin of 0.457. Albumin of 3.2. Electrocardiogram shows atrial pacing, ventricular sensing with some T-wave inversions in the inferolateral leads on the ventricular spontaneously conducted QRS's and in direct comparison with her prior EKGs done on 12/24/2017 at [facility]. The T-wave inversion may not be all that new. She did have some biphasic T-waves in 2, 3, AVF, and some in lead V6 as well. There may be slightly more prominent, but that different equipment for recording was used at this time. Her chest x-ray shows cardiomegaly and two different pacemakers, one on the left and one on the right. ASSESSMENT AND PLAN: 1. History of multiple falls. 2. Pubic ramus fracture and pelvic fractures. 3. Coronary disease status post PCI of the LAD and obtuse marginal in December of 2015 with significant right coronary artery stenosis remaining. 4. Ischemic cardiomyopathy history. 5. Dementia history. 6. Delirium history. 7. Diabetes mellitus. 8. History of hypertension. 9. Permanent pacemaker implantation for sick sinus syndrome. 10. Possible gastrointestinal bleed based on communications with Dr. Oliver regarding bloody stools post PCI. Stool should be checked for occult blood. Iron studies should be performed. PLAN: Dr. Mancera, this patient was seen in cardiac consultation. She seems to be denying any chest pain at this time for what that is . Her EKG is not significantly abnormal though she does have mild troponin abnormality, which in light of the fact that she has a history of coronary disease and this needs to be followed. Her creatinine is not significantly elevated, but she is somewhat anemic with a hemoglobin of 8.9 in comparison. Her last hemoglobin at [facility] was 10.9. There are some pain medications in the [facility] chart indicating that the patient may have had some gastrointestinal bleeding and compliance with aspirin and Plavix status is unknown. The patient should have serial enzymes, EKGs, and echocardiogram be monitored and I will let Dr. Oliver, who is the patient's primary treating elevating grader operator to follow the patient along, should have stool studies, and stool for occult blood should be sent. Ihsan Fischer M.D. DR: SINDY JOB#: [id number] CC:
[2018-01-31 20:00] VITALS: BP 115/70
[2018-01-31] MEDS: Heparin 5000 units/ml inj SUBQ SCH (20:36)
[2018-02-01] VITALS: BP 140/85
[2018-02-01] MEDS ORDERED: Norco 5mg/325mg tab ORAL PRN (02:47)
[2018-02-01 04:00] VITALS: BP 145/80
[2018-02-01 05:53] LABS: INR 1.2 (0.9-1.1)
[2018-02-01 06:00] LABS: BASOPHILS % (AUTO) 0.3 % (0.0-2.0); EOSINOPHILS % (AUTO) 1.5 % (0.0-3.0); HEMATOCRIT 28.4 % (37.0-47.0); HEMOGLOBIN 8.9 G/DL (12.0-16.0); IRON 34 ug/dL (50-175); LYMPHOCYTES % (AUTO) 34.6 % (20.0-45.0); MEAN CORPUSCULAR VOLUME 94 FL (80-99); NEUTROPHILS % (AUTO) 58.6 % (45.0-75.0); PLATELET COUNT 302 K/UL (150-450); RED BLOOD COUNT 3.02 M/UL (4.20-5.40); RED CELL DISTRIBUTION WIDTH 17.9 % (11.6-14.8); WHITE BLOOD COUNT 6.2 K/UL (4.8-10.8)
[2018-02-01 06:52] LABS: ALANINE AMINOTRANSFERASE 26 U/L (12-78); ALBUMIN 3.1 G/DL (3.4-5.0); ALKALINE PHOSPHATASE 58 U/L (46-116); ANION GAP 11 mmol/L (5-15); ASPARTATE AMINO TRANSFERASE 25 U/L (15-37); BILIRUBIN,TOTAL 0.6 MG/DL (0.2-1.0); BLOOD UREA NITROGEN 17 mg/dL (7-18); CALCIUM 8.9 MG/DL (8.5-10.1); CARBON DIOXIDE 23 MMOL/L (21-32); CHLORIDE 110 MMOL/L (98-107); CHOLESTEROL 149 MG/DL (< 200); HDL CHOLESTEROL 53 MG/DL (40-60); POTASSIUM 4.2 MMOL/L (3.5-5.1); SODIUM 144 MMOL/L (136-145); TRIGLYCERIDES 69 MG/DL (30-150)
[2018-02-01] MEDS ORDERED: ALPRAZolam 0.5mg tab ORAL PRN (07:15)
[2018-02-01 08:00] VITALS: BP 147/79
[2018-02-01] MEDS: Heparin 5000 units/ml inj SUBQ SCH ×2 (08:36→20:47)
[2018-02-01] MEDS ORDERED: Aspirin Baby 81mg ORAL SCH (09:00)
[2018-02-01] MEDS ORDERED: Atenolol 25mg tab ORAL SCH (09:00)
--- NOTE | 2018-02-01 09:11 | Diagnostic Imaging Report ---
Indication: Pain, trauma Technique: CT pelvis was performed utilizing automated exposure control without intravenous contrast material. Axial, sagittal coronal images were generated. CT dose: Total DLP 384.48 mGycm; CTDI vol 12.46 mGy Comparison: CT of the abdomen and pelvis 08/27/2017 Findings: There is a comminuted left parasymphyseal fracture extending to the left inferior and, to a lesser extent, superior pubic rami. There is a mildly distracted fracture of the left superior iliac wing paralleling and extending to the left sacroiliac joint (series series 3 image #19; series 6 image #62). There is degenerative change of the spine with disc space loss, endplate osteophytes, facet arthrosis and vacuum disc phenomenon. There is bilateral L4 spondylolysis with associated anterolisthesis of L4 relative to L5 with approximately 4 mm offset. This is stable when compared to 08/27/2017. There are bilateral inguinal hernias which contain a nonobstructed loops of small bowel. There is extensive atherosclerotic calcification of the visualized abdominal aorta, with areas of circumferential calcification. Calcification of the iliac vessels also noted. There is calcifications in the posterior gluteal soft tissues. IMPRESSION: Left-sided pelvic fractures including the left pubic rami and iliac bone fractures as detailed above. 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 Bilateral inguinal hernias containing loops of small bowel. No evidence of associated small bowel obstruction. This corresponds with the statrad preliminary report. The CT scanner at [facility] is accredited by the [employer] and the scans are performed using protocols designed to limit radiation exposure to as low as reasonably achievable to attain images of sufficient resolution adequate for diagnostic evaluation.
--- NOTE | 2018-02-01 11:02 | Cardiology Report ---
APPROVED REPORT EXAM: Two-dimensional and M-mode echocardiogram with Doppler and color Doppler. INDICATION Left Ventricular Function M-Mode DIMENSIONS IVSd1.1 (0.7-1.1cm)Left Atrium (MM)5.1 (1.6-4.0cm) LVDd5.8 (3.5-5.6cm)Aortic Root2.7 (2.0-3.7cm) PWd1.1 (0.7-1.1cm)Aortic Cusp Exc.1.2 (1.5-2.0cm) LVDs4.2 (2.5-4.0cm) PWs1.4 cm Mild left ventricular enlargement. Global left ventricular hypokinesis. Left ventricular ejection fraction estimated to be 30-35 %. Borderline left ventricular hypertrophy. No evidence of pericardial effusion. Mild left atrial enlargement. Right cardiac chamber sizes are within normal limits. Aortic valve calcification with decreased cusp excursion c/w aortic stenosis. Mildly thickened mitral valve leaflets with normal excursion. Moderate mitral annulus and aortic root calcification. Normal pulmonic valve structure. Normal tricuspid valve structure. IVC dilated at 2.5 cm with physiological collapse, suggestive of increased RA pressure. A color flow and spectral Doppler study was performed and revealed: Mild aortic insufficiency. Peak aortic valve gradient of 12 mmHg and a mean of 6 mmHg. Aortic valve area 1.3 cm2 calculated by continuity equation. Moderate to severe mitral regurgitation. Mitral inflow indicates increased left atrial pressure, suggestive restrictive pattern (Grade III). Moderate tricuspid regurgitation. Tricuspid systolic velocities suggests peak right ventricular systolic pressure of 83 mmHg, consistent with severe pulmonary hypertension. Moderate pulmonic regurgitation present.
--- NOTE | 2018-02-01 11:11 | Diagnostic Imaging Report ---
Indication: Chest pain Technique: XRAY Chest 1v Comparison: 06/06/2008 Findings: Interval placement of a right-sided pacemaker with lead tips projecting over the expected regions of the right atrium and ventricle. The previously identified left sided pacemaker is unchanged. Heart is enlarged. There is interstitial opacification/edema and perihilar fullness. There are patchy bibasilar airspace opacities. There is blunting of the bilateral costophrenic sulci, right greater than left. No pneumothorax. There are degenerative changes of the spine. Impression: Cardiomegaly with interstitial opacification/edema, patchy bibasilar airspace opacities and possible trace bilateral pleural effusions. Findings are likely related to CHF/pulmonary edema. Superimposed pneumonia not excluded. Clinical correlation/follow-up recommended. Bilateral chest pacemaker is in place. This corresponds with the preliminary interpretation of the treating ER physician, as documented in the electronic medical record. Study obtained via the emergency department however patient admitted to the hospital at time of dictation of the final report.
--- NOTE | 2018-02-01 11:16 | Diagnostic Imaging Report ---
Indication: Pain Technique: XRAY Pelvis 1v Comparison: Images of the pelvis from CT of the abdomen and pelvis 08/27/2017. Findings: Bones are demineralized. There is acute fracture involving the inferior pubic ramus on the left. This likely also extends to the superior pubic ramus and parasymphyseal region. No pubic symphysis widening. Additionally there is a transverse lucency through the superior iliac bone on the left concerning for fracture. There is degenerative change of the lower lumbar spine. There are atherosclerotic vascular calcifications. Degenerative changes also noted in the bilateral hips. No radiopaque foreign body identified. IMPRESSION: Left parasymphyseal fracture. Linear lucency through the left iliac bone concerning for additional fracture.
--- NOTE | 2018-02-01 11:18 | Diagnostic Imaging Report ---
Indication: Pain Technique: XRAY Femur 2v L Comparison: None Findings: Bones appear demineralized. Fracture of the left pubic bone partially visualized. The left hip is maintained, with some degenerative change. No femoral fracture identified. Left knee joint is maintained, also some degenerative changes. There are extensive atherosclerotic vascular calcifications. No radiopaque foreign body identified. Impression: No evidence of left femoral fracture. Additional findings as above.
--- NOTE | 2018-02-01 11:43 | Consultation ---
History of Present Illness General Date patient seen: Feb 01, 2018 Chief Complaint: General Complaint Present Illness HPI 82 year old female wth hx of CAD, pacemaker, htn presented to ER by paramedics with complaints of shortness of breath, dizziness and episodes of fall. She has pain to the left hip area with obvious bruising. Her troponin was positive. She is admitted to telemetry/jaqui to rule out pacemaker malfunction and rule out arrhythmias. Allergies: Coded Allergies: No Known Allergies (Unverified , 08/10/13) Medication History Scheduled Amoxicillin/Potassium Clav 875-125* (Augmentin 875-125 Tablet*), 1 TAB ORAL TWICE A DAY Aspirin (Aspirin EC), 81 MG ORAL DAILY, (Reported) Atenolol (Tenormin), 25 MG ORAL DAILY, (Reported) Dicyclomine Hcl* (Dicyclomine Hcl*), 10 MG PO QID Famotidine (Pepcid), 20 MG ORAL BEDTIME No Known Medications* (NKM - No Known Medications*), 0 ., (Reported) Scheduled PRN Hydrocodone Bit/Acetaminophen 5-325* (Renick 5-325*), 1 TAB ORAL Q6H PRN for For Pain Miscellaneous Medications Unable to Obtain Medications (Unable To Obtain Meds), (Reported) Patient History Healthcare decision maker Resuscitation status Full Code Advanced Directive on File Past Medical/Surgical History Past Medical/Surgical History: (1) CHF (congestive heart failure) (2) Pacemaker Review of Systems All Other Systems: negative except mentioned in HPI Physical Exam General Appearance: WD/WN Lines, tubes and drains: peripheral HEENT: normocephalic, atraumatic Neck: non-tender, supple Respiratory/Chest: chest wall non-tender, lungs clear Cardiovascular/Chest: normal peripheral pulses, normal rate Abdomen: normal bowel sounds, non tender Genitourinary/Rectal: normal genital exam, normal rectal exam Skin Exam: normal pigmentation Neurologic: administrator pesticide II-XII grossly normal Last 24 Hour Vital Signs Date Time Temp Pulse Resp B/P (MAP) Pulse Ox O2 Delivery O2 Flow Rate FiO2 02/01/18 09:00 74 02/01/18 08:34 65 147/79 02/01/18 08:00 98.1 65 20 147/79 (101) 97 98.1 02/01/18 08:00 Nasal Cannula 2.0 02/01/18 04:00 83 02/01/18 04:00 Nasal Cannula 2.0 02/01/18 04:00 98.2 78 20 145/80 (101) 100 98.2 02/01/18 00:00 98.3 72 20 140/85 (103) 95 98.3 02/01/18 00:00 75 02/01/18 00:00 Nasal Cannula 2.0 01/31/18 23:33 77 20 99 Room Air 21 01/31/18 23:10 77 18 98 Room Air 21 01/31/18 22:58 79 18 Room Air 21 01/31/18 20:00 62 01/31/18 20:00 97.9 66 20 115/70 (85) 95 97.9 01/31/18 20:00 Room Air 01/31/18 17:29 Room Air 01/31/18 17:04 98.4 70 21 110/79 95 Room Air 21 98.4 01/31/18 16:50 97.7 77 20 134/78 (96) 97.7 01/31/18 15:54 98.4 70 21 110/79 95 Room Air 21 98.4 01/31/18 14:08 98.0 71 19 126/70 95 Room Air 98.0 01/31/18 12:52 79 23 100 Room Air 01/31/18 12:43 72 14 Room Air 21 01/31/18 12:43 72 14 98 Room Air 21 01/31/18 12:10 98.4 01/31/18 11:48 98.4 20 122/65 99 Room Air 98.4 01/31/18 11:38 98.4 64 20 122/65 Room Air 98.4 Intake and Output 01/31/18 02/01/18 19:00 07:00 Intake Total 120 ml Output Total 200 ml Balance -80 ml Intake Oral 120 ml Output Urine Total 200 ml # Voids 3 7 Laboratory Tests Test 01/31/18 12:00 02/01/18 03:59 White Blood Count 6.4 K/UL (4.8-10.8) 6.2 K/UL (4.8-10.8) Red Blood Count 3.08 M/UL (4.20-5.40) L 3.02 M/UL (4.20-5.40) L Hemoglobin 8.9 G/DL (12.0-16.0) L 8.9 G/DL (12.0-16.0) L Hematocrit 28.6 % (37.0-47.0) L 28.4 % (37.0-47.0) L Mean Corpuscular Volume 93 FL (80-99) 94 FL (80-99) Mean Corpuscular Hemoglobin 28.9 PG (27.0-31.0) 29.5 PG (27.0-31.0) Mean Corpuscular Hemoglobin Concent 31.1 G/DL (32.0-36.0) L 31.4 G/DL (32.0-36.0) L Red Cell Distribution Width 17.5 % (11.6-14.8) H 17.9 % (11.6-14.8) H Platelet Count 328 K/UL (150-450) 302 K/UL (150-450) Mean Platelet Volume 7.2 FL (6.5-10.1) 6.7 FL (6.5-10.1) Neutrophils (%) (Auto) 70.8 % (45.0-75.0) 58.6 % (45.0-75.0) Lymphocytes (%) (Auto) 21.9 % (20.0-45.0) 34.6 % (20.0-45.0) Monocytes (%) (Auto) 5.7 % (1.0-10.0) 5.0 % (1.0-10.0) Eosinophils (%) (Auto) 1.3 % (0.0-3.0) 1.5 % (0.0-3.0) Basophils (%) (Auto) 0.3 % (0.0-2.0) 0.3 % (0.0-2.0) Sodium Level 144 MMOL/L (136-145) 144 MMOL/L (136-145) Potassium Level 4.0 MMOL/L (3.5-5.1) 4.2 MMOL/L (3.5-5.1) Chloride Level 111 MMOL/L (98-107) H 110 MMOL/L (98-107) H Carbon Dioxide Level 22 MMOL/L (21-32) 23 MMOL/L (21-32) Anion Gap 11 mmol/L (5-15) 11 mmol/L (5-15) Blood Urea Nitrogen 11 mg/dL (7-18) 17 mg/dL (7-18) Creatinine 1.0 MG/DL (0.55-1.30) 1.0 MG/DL (0.55-1.30) Estimat Glomerular Filtration Rate mL/min (>60) mL/min (>60) Glucose Level 143 MG/DL (74-106) H 89 MG/DL (74-106) Calcium Level 8.9 MG/DL (8.5-10.1) 8.9 MG/DL (8.5-10.1) Total Bilirubin 0.6 MG/DL (0.2-1.0) 0.6 MG/DL (0.2-1.0) Aspartate Amino Transf (AST/SGOT) 27 U/L (15-37) 25 U/L (15-37) Alanine Aminotransferase (ALT/SGPT) 24 U/L (12-78) 26 U/L (12-78) Alkaline Phosphatase 70 U/L (46-116) 58 U/L (46-116) Total Creatine Kinase 488 U/L (26-308) H Creatine Kinase MB 2.2 NG/ML (0.0-3.6) Creatine Kinase MB Relative Index 0.4 Troponin I 0.457 ng/mL (0.000-0.056) 0.320 ng/mL (0.000-0.056) Pro-B-Type Natriuretic Peptide 75261 pg/mL (0-125) H Total Protein 6.5 G/DL (6.4-8.2) 6.2 G/DL (6.4-8.2) L Albumin 3.2 G/DL (3.4-5.0) L 3.1 G/DL (3.4-5.0) L Globulin 3.3 g/dL 3.1 g/dL Albumin/Globulin Ratio 1.0 (1.0-2.7) 1.0 (1.0-2.7) Lipase 180 U/L (73-393) Prothrombin Time 12.2 SEC (9.30-11.50) H Prothromb Time International Ratio 1.2 (0.9-1.1) H Activated Partial Thromboplast Time 25 SEC (23-33) Magnesium Level 1.5 MG/DL (1.8-2.4) L Iron Level 34 ug/dL (50-175) L C-Reactive Protein, Quantitative 1.0 mg/dL (0.00-0.90) H Triglycerides Level 69 MG/DL (30-150) Cholesterol Level 149 MG/DL (< 200) LDL Cholesterol 80 mg/dL (<100) HDL Cholesterol 53 MG/DL (40-60) Cholesterol/HDL Ratio 2.8 (3.3-4.4) L Thyroid Stimulating Hormone (TSH) 3.306 uiU/mL (0.358-3.740) Height (Feet): 5 Height (Inches): 4.00 Weight (Pounds): 136 Medications Current Medications Medications (Trade) Dose Ordered Sig/Yi Route PRN Reason Start Time Stop Time Status Last Admin Dose Admin Acetaminophen (Tylenol) 650 mg Q4H PRN ORAL FEVER 01/31/18 14:43 03/02/18 14:42 Acetaminophen/ Hydrocodone Bitart (Renick 5/325) 1 tab Q6H PRN ORAL Moderate Pain (Pain Scale 4-6) 01/31/18 23:45 02/07/18 23:44 02/01/18 00:04 Albuterol/ Ipratropium (Albuterol/ Ipratropium) 3 ml EVERY 4 HOURS PRN HHN Shortness of Breath 01/31/18 14:43 02/05/18 14:42 01/31/18 23:12 Alprazolam (Xanax) 1 mg Q4H PRN ORAL For Anxiety 02/01/18 07:15 02/08/18 07:14 Aspirin (ASA) 162 mg DAILY ORAL 02/01/18 09:00 03/03/18 08:59 02/01/18 08:33 Atenolol (Tenormin) 25 mg DAILY ORAL 02/01/18 09:00 03/03/18 08:59 02/01/18 08:34 Diltiazem HCl (Cardizem) 10 mg Q1H PRN IV heart rate more than 120, 01/31/18 14:00 03/02/18 13:59 Enalaprilat (Vasotec) 2.5 mg EVERY 6 HOURS PRN IV sbp more than 160 01/31/18 14:44 03/02/18 14:43 Heparin Sodium (Porcine) (Heparin 5000 units/ml) 5,000 units EVERY 12 HOURS SUBQ 01/31/18 21:00 03/02/18 20:59 02/01/18 08:36 Ketorolac Tromethamine (Toradol 30mg) 15 mg Q6HR PRN IV moderate pain ( 4-6) 01/31/18 14:48 02/05/18 14:47 Morphine Sulfate (Morphine Sulfate) 2 mg Q4H PRN IVP severe Pain (Pain Scale 7-10) 01/31/18 14:48 02/07/18 14:47 Nitroglycerin (Ntg) 0.4 mg Q5MIN X 3 DOSES PRN SL Prn Chest Pain 01/31/18 14:43 03/02/18 14:42 Ondansetron HCl (Zofran) 4 mg Q6H PRN IVP Nausea & Vomiting 01/31/18 14:43 03/02/18 14:42 Polyethylene Glycol (Miralax) 17 gm DAILYPRN PRN ORAL Constipation 01/31/18 14:43 03/02/18 14:42 Temazepam (Restoril) 15 mg HSPRN PRN ORAL Insomnia 01/31/18 21:00 02/07/18 20:59 01/31/18 23:08 Assessment/Plan Problem List: (1) Dyspnea ICD Codes: R06.00 - Dyspnea, unspecified SNOMED: 910364001 (2) Pacemaker ICD Codes: Z95.0 - Presence of cardiac pacemaker SNOMED: 835596539 (3) NSTEMI (non-ST elevated myocardial infarction) ICD Codes: I21.4 - Non-ST elevation (NSTEMI) myocardial infarction SNOMED: 529186401 Assessment/Plan pt's cxr is clear she in not a high risk for PE f/u troponin check echo f/u cardiology recommendations keep bp at high normal levels Rod Mancera MD Feb 01, 2018 11:43
[2018-02-01 12:00] VITALS: BP 142/70
[2018-02-01] MEDS ORDERED: dilTIAZem HCl 25mg/5ml Inj IV PRN (16:28)
[2018-02-01] MEDS ORDERED: Miralax 17gm pkt ORAL PRN (16:29)
[2018-02-01] MEDS ORDERED: Nitroglycerin Subl 0.4mg tab SL PRN (16:30)
--- NOTE | 2018-02-01 16:48 | Cardiology Progress Note ---
Assessment/Plan Assessment/Plan congestive heart failure, systolic, acute on chronic ischenmic cardiomyopathy severe demential and delirium the patient is agitated, standing in the soler and refusing to cooperate I spoke to the nurse and recommended to call admitting physician for sedation Subjective Subjective the patient is agitated and delirious, refusing to go to her room and screaming Objective Last 24 Hour Vital Signs Date Time Temp Pulse Resp B/P (MAP) Pulse Ox O2 Delivery O2 Flow Rate FiO2 02/01/18 14:36 65 18 Room Air 21 02/01/18 12:00 97.9 77 18 142/70 (94) 97 97.9 02/01/18 12:00 81 02/01/18 12:00 Nasal Cannula 2.0 02/01/18 09:00 74 02/01/18 08:34 65 147/79 02/01/18 08:00 98.1 65 20 147/79 (101) 97 98.1 02/01/18 08:00 Nasal Cannula 2.0 02/01/18 04:00 83 02/01/18 04:00 Nasal Cannula 2.0 02/01/18 04:00 98.2 78 20 145/80 (101) 100 98.2 02/01/18 00:00 98.3 72 20 140/85 (103) 95 98.3 02/01/18 00:00 75 02/01/18 00:00 Nasal Cannula 2.0 01/31/18 23:33 77 20 99 Room Air 21 01/31/18 23:10 77 18 98 Room Air 21 01/31/18 22:58 79 18 Room Air 21 01/31/18 20:00 62 01/31/18 20:00 97.9 66 20 115/70 (85) 95 97.9 01/31/18 20:00 Room Air 01/31/18 17:29 Room Air 01/31/18 17:04 98.4 70 21 110/79 95 Room Air 21 98.4 01/31/18 16:50 97.7 77 20 134/78 (96) 97.7 General Appearance: alert, agitated, combative, other - confused EENT: PERRL/EOMI Neck: JVD Rhythm: NSR Cardiovascular: regular rhythm, gallop/S3 Respiratory/Chest: crackles/rales Abdomen: non tender Extremities: no swelling Intake and Output 01/31/18 02/01/18 19:00 07:00 Intake Total 120 ml Output Total 200 ml Balance -80 ml Intake Oral 120 ml Output Urine Total 200 ml # Voids 3 7 Laboratory Tests Test 02/01/18 03:59 White Blood Count 6.2 K/UL (4.8-10.8) Red Blood Count 3.02 M/UL (4.20-5.40) L Hemoglobin 8.9 G/DL (12.0-16.0) L Hematocrit 28.4 % (37.0-47.0) L Mean Corpuscular Volume 94 FL (80-99) Mean Corpuscular Hemoglobin 29.5 PG (27.0-31.0) Mean Corpuscular Hemoglobin Concent 31.4 G/DL (32.0-36.0) L Red Cell Distribution Width 17.9 % (11.6-14.8) H Platelet Count 302 K/UL (150-450) Mean Platelet Volume 6.7 FL (6.5-10.1) Neutrophils (%) (Auto) 58.6 % (45.0-75.0) Lymphocytes (%) (Auto) 34.6 % (20.0-45.0) Monocytes (%) (Auto) 5.0 % (1.0-10.0) Eosinophils (%) (Auto) 1.5 % (0.0-3.0) Basophils (%) (Auto) 0.3 % (0.0-2.0) Prothrombin Time 12.2 SEC (9.30-11.50) H Prothromb Time International Ratio 1.2 (0.9-1.1) H Activated Partial Thromboplast Time 25 SEC (23-33) Sodium Level 144 MMOL/L (136-145) Potassium Level 4.2 MMOL/L (3.5-5.1) Chloride Level 110 MMOL/L (98-107) H Carbon Dioxide Level 23 MMOL/L (21-32) Anion Gap 11 mmol/L (5-15) Blood Urea Nitrogen 17 mg/dL (7-18) Creatinine 1.0 MG/DL (0.55-1.30) Estimat Glomerular Filtration Rate mL/min (>60) Glucose Level 89 MG/DL (74-106) Calcium Level 8.9 MG/DL (8.5-10.1) Magnesium Level 1.5 MG/DL (1.8-2.4) L Iron Level 34 ug/dL (50-175) L Total Bilirubin 0.6 MG/DL (0.2-1.0) Aspartate Amino Transf (AST/SGOT) 25 U/L (15-37) Alanine Aminotransferase (ALT/SGPT) 26 U/L (12-78) Alkaline Phosphatase 58 U/L (46-116) Troponin I 0.320 ng/mL (0.000-0.056) C-Reactive Protein, Quantitative 1.0 mg/dL (0.00-0.90) H Total Protein 6.2 G/DL (6.4-8.2) L Albumin 3.1 G/DL (3.4-5.0) L Globulin 3.1 g/dL Albumin/Globulin Ratio 1.0 (1.0-2.7) Triglycerides Level 69 MG/DL (30-150) Cholesterol Level 149 MG/DL (< 200) LDL Cholesterol 80 mg/dL (<100) HDL Cholesterol 53 MG/DL (40-60) Cholesterol/HDL Ratio 2.8 (3.3-4.4) L Thyroid Stimulating Hormone (TSH) 3.306 uiU/mL (0.358-3.740) Karol Oliver MD Feb 01, 2018 16:48
[2018-02-01] MEDS ORDERED: Albuterol/Ipratropium 3ml neb HHN PRN (17:00)
[2018-02-01] MEDS ORDERED: LORazepam Inj 2mg/ml 1ml IV PRN (17:15)
--- NOTE | 2018-02-01 17:45 | Consultation ---
DATE OF CONSULTATION: 02/01/2018 ORTHOPEDIC CONSULTATION CONSULTING PHYSICIAN: Johnnie Ward M.D. REQUESTING PHYSICIAN: Carlos Alberto Berkowitz M.D. DIAGNOSIS: Pelvic fracture. HISTORY: The patient is an 82-year-old, [place] African-speaking woman with a history of coronary artery disease, pacemaker, and hypertension who presented to the emergency room because of shortness of breath, dizziness, and multiple falls. She was admitted to the hospital because of presumptive cardiac complaints. She had difficulty ambulating reportedly at that time as well. PAST MEDICAL HISTORY: Significant for coronary artery disease and has had percutaneous coronary intervention. She has a pacemaker. MEDICATIONS: It is unclear all medications include, but they may include metformin, atorvastatin, Detrol, Tenormin, Diovan, Prilosec, Plavix, and Crestor. ALLERGIES: She has allergies to fish product derivatives and vancomycin. REVIEW OF SYSTEMS: A 12-point review of system is difficult to elicit because she is a relatively poor historian. PHYSICAL EXAMINATION: GENERAL: She is well appearing and resting comfortably in bed. EXTREMITIES: A bilateral hip examination reveals normal range of motion, no pain with log rolling, and ability to straight leg raise bilaterally. She has no pelvic pain with lateral compression test or AP compression test. CT scan of 01/31/2018 of the pelvis revealed a comminuted left parasymphyseal fracture to the proximal portions of the left superior and inferior pubic rami and mildly distracted fracture of the left iliac wing paralleling and extending into the left sacroiliac joint. There are degenerative changes of her spine noted as well. The patient has multiple pelvic fractures that do not clinically appear to be acute. These may be old in nature and she has had multiple other falls as well. She has no pain on examination today. No operation is warranted from an orthopedic standpoint. She may be weightbearing as tolerated and seen by Physiotherapy. Should she remain bed-bound, appropriate DVT prophylaxis is recommended. Thank you for the opportunity to consult. Johnnie Ward M.D. DR: TONYA JOB#: [id number] CC:
[2018-02-01] MEDS ORDERED: Tubing IV Secondary IV ONE (17:49)
--- NOTE | 2018-02-01 17:58 | History & Physical ---
History and Physical History & Physicial Dictated for Int Med-dr Berkowitz no. [id number]. Aquilino Matthews MD Feb 01, 2018 17:58
[2018-02-01] MEDS ORDERED: Ketorolac 30mg Inj IV PRN (18:00)
[2018-02-01] MEDS ORDERED: Enalaprilat 2.5mg/2ml Inj IV PRN (18:00)
[2018-02-01] MEDS: LORazepam Inj 2mg/ml 1ml IV PRN (18:01)
--- NOTE | 2018-02-01 18:30 | History and Physical Report ---
DATE OF ADMISSION: 01/31/2018 CHIEF COMPLAINT: The patient is an 82-year-old white female, who presents with chief complaint of shortness of breath. HISTORY OF PRESENT ILLNESS: The patient was admitted to [facility] in December 2017. The patient was diagnosed with acute myocardial infarction, [id number] myocardial infarction. The patient herself speaks mostly Maldivian. The patient became short of breath yesterday, January 31, 2018. The patient was transported to [facility]. The patient is admitted with shortness of breath to rule out congestive heart failure versus acute myocardial infarction. REVIEW OF SYSTEMS: Unable to assess secondary to language barrier. PAST MEDICAL HISTORY: Significant for: 1. Diabetes type 2. 2. Hypertension. 3. Sick sinus syndrome. 4. Hypercholesterolemia. 5. Fxx-OT-[id number] myocardial infarction as above. PAST SURGICAL HISTORY: Significant for: 1. Coronary artery bypass graft in 2016. 2. Pacemaker generator change in 2016. 3. History of elbow debridement. 4. Pacemaker implantation in 2013. 5. Debridement of septic elbow. CURRENT MEDICATIONS: 1. Aspirin 81 mg one tablet p.o. daily. 2. Atenolol 25 mg p.o. daily. 3. Bentyl 10 mg p.o. 4 times daily p.r.n. 4. Pepcid 20 mg p.o. daily. 5. [place] 5/325 one tablet p.o. q.6 hours p.r.n. ALLERGIES: No known drug allergies. SOCIAL HISTORY: The patient is . The patient denies tobacco or alcohol use. PHYSICAL EXAMINATION: VITAL SIGNS: Temperature 98.1, respirations 20, pulse 65, blood pressure 147/79. GENERAL: The patient is a well-developed, well-nourished, agitated white female, in no apparent distress. HEENT: Eyes, pupils equal and responsive to light and accommodation. Extraocular movements are intact. NECK: Supple without lymphadenopathy. CHEST: Lungs with few crackles in bilateral bases, otherwise clear to auscultation. No wheezes or rales. CARDIOVASCULAR: Regular rhythm and rate. S1, S2 are normal without murmurs, rubs, or gallops. ABDOMEN: Soft, nontender, and nondistended. Positive bowel sounds. No evidence of hepatosplenomegaly. Currently, no rebound or guarding noted. EXTREMITIES: Negative for clubbing, cyanosis, or edema. RECTAL: Refused. GENITAL: Refused. NEUROLOGIC: Cranial nerves II through XII are grossly intact without focal deficits. Motor strength is 5/5 bilaterally intact. Deep tendon reflexes are 2+, plantar. LABORATORY STUDIES: WBC 6.4, hemoglobin 8.9, hematocrit 25.6, platelets 328,000. Sodium 144, potassium 4.0, chloride 111, CO2 22, BUN 11, creatinine 1.0, glucose 143. BNP elevated at 33,171. Troponin elevated at 0.457. Chest x-ray revealed cardiomegaly with interstitial opacification/edema consistent with congestive heart failure and/or pulmonary edema. ASSESSMENT: This is an 82-year-old white female with: 1. Shortness of breath. 2. Congestive heart failure. 3. Diabetes type 2. 4. Hypertension. 5. Sick sinus syndrome. 6. Hypercholesterolemia. 7. Pacemaker in situ. TREATMENT: 1. Shortness of breath. This is probably secondary to congestive heart failure. Cardiology consultation has been obtained with Dr. Oliver. We will follow recommendations of Cardiology. An echocardiogram is pending. 2. Congestive heart failure. As above, Cardiology consultation has been obtained with Dr. Karol Oliver. We will follow recommendations of Cardiology. 3. Diabetes type 2. The patient has been started on NovoLog sliding scale. 4. Hypertension. Continue atenolol as above. 5. Sick sinus syndrome. The patient is status post pacemaker implantation. 6. Hypercholesterolemia, stable. 7. Pacemaker in situ. Aquilino Matthews M.D. DR: Vikas JOB#: [id number] CC:
[2018-02-01 20:00] VITALS: BP 159/91
--- NOTE | 2018-02-01 22:08 | Consultation ---
History of Present Illness General Chief Complaint: General Complaint Present Illness HPI 82-year-old, Georgian-speaking female with a history of psychosis coronary artery disease, pacemaker, and hypertension who presented to the emergency room because of shortness of breath, dizziness, and multiple falls. the pt is agitated and pw waxing and waning of consciousness. the pt is forgetful Allergies: Coded Allergies: No Known Allergies (Unverified , 08/10/13) Medication History Scheduled Amoxicillin/Potassium Clav 875-125* (Augmentin 875-125 Tablet*), 1 TAB ORAL TWICE A DAY Aspirin (Aspirin EC), 81 MG ORAL DAILY, (Reported) Atenolol (Tenormin), 25 MG ORAL DAILY, (Reported) Dicyclomine Hcl* (Dicyclomine Hcl*), 10 MG PO QID Famotidine (Pepcid), 20 MG ORAL BEDTIME No Known Medications* (NKM - No Known Medications*), 0 ., (Reported) Scheduled PRN Hydrocodone Bit/Acetaminophen 5-325* ([place] 5-325*), 1 TAB ORAL Q6H PRN for For Pain Miscellaneous Medications Unable to Obtain Medications (Unable To Obtain Meds), (Reported) Patient History Limited by: medical condition History Provided By: Patient, Medical Record, PMD Healthcare decision maker Resuscitation status Full Code Advanced Directive on File Past Medical/Surgical History Past Medical/Surgical History: (1) right arm contusion (2) Abdominal pain (3) Colitis (4) CHF (congestive heart failure) (5) Pelvic fracture (6) Pacemaker (7) NSTEMI (non-ST elevated myocardial infarction) (8) Dyspnea (9) Delirium (10) Acute on chronic systolic CHF (congestive heart failure) Review of Systems Psychiatric: Reports: prior hx, anxiety, depressed feelings, emotional problems , hallucinations Physical Exam General Appearance: no apparent distress, alert, confused, agitated Last 24 Hour Vital Signs Date Time Temp Pulse Resp B/P (MAP) Pulse Ox O2 Delivery O2 Flow Rate FiO2 02/01/18 20:57 84 20 99 Nasal Cannula 2.0 28 02/01/18 20:50 80 18 98 Nasal Cannula 2.0 28 02/01/18 20:22 68 18 Room Air 21 02/01/18 20:00 99.1 85 18 159/91 (113) 97 99.1 02/01/18 20:00 82 9/17/18 16:00 Nasal Cannula 2.0 02/01/18 14:36 65 18 Room Air 21 02/01/18 12:00 97.9 77 18 142/70 (94) 97 97.9 02/01/18 12:00 81 02/01/18 12:00 Nasal Cannula 2.0 02/01/18 09:00 74 02/01/18 08:34 65 147/79 02/01/18 08:00 98.1 65 20 147/79 (101) 97 98.1 02/01/18 08:00 Nasal Cannula 2.0 02/01/18 04:00 83 02/01/18 04:00 Nasal Cannula 2.0 02/01/18 04:00 98.2 78 20 145/80 (101) 100 98.2 02/01/18 00:00 98.3 72 20 140/85 (103) 95 98.3 02/01/18 00:00 75 02/01/18 00:00 Nasal Cannula 2.0 01/31/18 23:33 77 20 99 Room Air 21 01/31/18 23:10 77 18 98 Room Air 21 01/31/18 22:58 79 18 Room Air 21 Intake and Output 01/31/18 02/01/18 19:00 07:00 Intake Total 120 ml Output Total 200 ml Balance -80 ml Intake Oral 120 ml Output Urine Total 200 ml # Voids 3 7 Laboratory Tests Test 02/01/18 03:59 White Blood Count 6.2 K/UL (4.8-10.8) Red Blood Count 3.02 M/UL (4.20-5.40) L Hemoglobin 8.9 G/DL (12.0-16.0) L Hematocrit 28.4 % (37.0-47.0) L Mean Corpuscular Volume 94 FL (80-99) Mean Corpuscular Hemoglobin 29.5 PG (27.0-31.0) Mean Corpuscular Hemoglobin Concent 31.4 G/DL (32.0-36.0) L Red Cell Distribution Width 17.9 % (11.6-14.8) H Platelet Count 302 K/UL (150-450) Mean Platelet Volume 6.7 FL (6.5-10.1) Neutrophils (%) (Auto) 58.6 % (45.0-75.0) Lymphocytes (%) (Auto) 34.6 % (20.0-45.0) Monocytes (%) (Auto) 5.0 % (1.0-10.0) Eosinophils (%) (Auto) 1.5 % (0.0-3.0) Basophils (%) (Auto) 0.3 % (0.0-2.0) Prothrombin Time 12.2 SEC (9.30-11.50) H Prothromb Time International Ratio 1.2 (0.9-1.1) H Activated Partial Thromboplast Time 25 SEC (23-33) Sodium Level 144 MMOL/L (136-145) Potassium Level 4.2 MMOL/L (3.5-5.1) Chloride Level 110 MMOL/L (98-107) H Carbon Dioxide Level 23 MMOL/L (21-32) Anion Gap 11 mmol/L (5-15) Blood Urea Nitrogen 17 mg/dL (7-18) Creatinine 1.0 MG/DL (0.55-1.30) Estimat Glomerular Filtration Rate mL/min (>60) Glucose Level 89 MG/DL (74-106) Calcium Level 8.9 MG/DL (8.5-10.1) Magnesium Level 1.5 MG/DL (1.8-2.4) L Iron Level 34 ug/dL (50-175) L Total Bilirubin 0.6 MG/DL (0.2-1.0) Aspartate Amino Transf (AST/SGOT) 25 U/L (15-37) Alanine Aminotransferase (ALT/SGPT) 26 U/L (12-78) Alkaline Phosphatase 58 U/L (46-116) Troponin I 0.320 ng/mL (0.000-0.056) C-Reactive Protein, Quantitative 1.0 mg/dL (0.00-0.90) H Total Protein 6.2 G/DL (6.4-8.2) L Albumin 3.1 G/DL (3.4-5.0) L Globulin 3.1 g/dL Albumin/Globulin Ratio 1.0 (1.0-2.7) Triglycerides Level 69 MG/DL (30-150) Cholesterol Level 149 MG/DL (< 200) LDL Cholesterol 80 mg/dL (<100) HDL Cholesterol 53 MG/DL (40-60) Cholesterol/HDL Ratio 2.8 (3.3-4.4) L Thyroid Stimulating Hormone (TSH) 3.306 uiU/mL (0.358-3.740) Height (Feet): 5 Height (Inches): 4.00 Weight (Pounds): 136 Medications Current Medications Medications (Trade) Dose Ordered Sig/Yi Route PRN Reason Start Time Stop Time Status Last Admin Dose Admin Acetaminophen (Tylenol) 650 mg Q4H PRN ORAL FEVER 02/01/18 16:27 03/02/18 16:26 Acetaminophen/ Hydrocodone Bitart ([place] 5/325) 1 tab Q6H PRN ORAL Moderate Pain (Pain Scale 4-6) 02/01/18 16:29 02/07/18 16:28 Albuterol/ Ipratropium (Albuterol/ Ipratropium) 3 ml Q4H PRN HHN Shortness of Breath 02/01/18 17:00 02/06/18 16:59 02/01/18 20:56 Alprazolam (Xanax) 1 mg Q4H PRN ORAL For Anxiety 02/01/18 16:28 02/08/18 16:27 Aspirin (ASA) 162 mg DAILY ORAL 02/02/18 09:00 03/03/18 08:59 Atenolol (Tenormin) 25 mg DAILY ORAL 02/02/18 09:00 03/03/18 08:59 Diltiazem HCl (Cardizem) 10 mg Q1H PRN IV heart rate more than 120, 02/01/18 16:28 03/02/18 16:27 Enalaprilat (Vasotec) 2.5 mg Q6H PRN IV sbp more than 160 02/01/18 18:00 03/03/18 17:59 Heparin Sodium (Porcine) (Heparin 5000 units/ml) 5,000 units EVERY 12 HOURS SUBQ 02/01/18 21:00 03/02/18 20:59 Ketorolac Tromethamine (Toradol 30mg) 15 mg Q6H PRN IV moderate pain ( 4-6) 02/01/18 18:00 02/06/18 17:59 Lorazepam (Ativan 2mg/ml 1ml) 0.5 mg Q4H PRN IV For Anxiety 02/01/18 17:35 02/08/18 17:14 02/01/18 18:01 Morphine Sulfate (Morphine Sulfate) 2 mg Q4H PRN IVP severe Pain (Pain Scale 7-10) 02/01/18 16:29 02/07/18 16:28 Nitroglycerin (Ntg) 0.4 mg Q5MIN X 3 DOSES PRN SL Prn Chest Pain 02/01/18 16:30 03/02/18 14:42 Ondansetron HCl (Zofran) 4 mg Q6H PRN IVP Nausea & Vomiting 02/01/18 16:29 03/02/18 16:28 Polyethylene Glycol (Miralax) 17 gm DAILYPRN PRN ORAL Constipation 02/01/18 16:29 03/03/18 16:28 Quetiapine Fumarate (SEROquel) 25 mg Q6H PRN ORAL ANXIETY/AGITATION 02/01/18 17:15 03/03/18 17:14 Quetiapine Fumarate (SEROquel) 25 mg THREE TIMES A DAY ORAL 02/01/18 18:00 03/03/18 17:59 02/01/18 20:43 Temazepam (Restoril) 15 mg HSPRN PRN ORAL Insomnia 02/01/18 21:00 02/07/18 20:59 Assessment/Plan Problem List: (1) encephalopathy due to Assessment & Plan: [facility] [place] psychotic d/o seroquel prn ativan prn Status: unchanged Lena Bob MD Feb 01, 2018 22:08
[2018-02-01] MEDS: ALPRAZolam 0.5mg tab ORAL PRN (22:20)
[2018-02-02] VITALS: BP 144/83
[2018-02-02] MEDS: LORazepam Inj 2mg/ml 1ml IV PRN ×3 (01:30→23:53)
[2018-02-02 04:00] VITALS: BP 157/88
[2018-02-02 07:59] LABS: BASOPHILS % (AUTO) 0.3 % (0.0-2.0); EOSINOPHILS % (AUTO) 1.2 % (0.0-3.0); HEMATOCRIT 28.9 % (37.0-47.0); LYMPHOCYTES % (AUTO) 20.9 % (20.0-45.0); MEAN CORPUSCULAR VOLUME 92 FL (80-99); NEUTROPHILS % (AUTO) 71.6 % (45.0-75.0); PLATELET COUNT 273 K/UL (150-450); RED BLOOD COUNT 3.14 M/UL (4.20-5.40); RED CELL DISTRIBUTION WIDTH 17.5 % (11.6-14.8); WHITE BLOOD COUNT 7.5 K/UL (4.8-10.8)
[2018-02-02 08:00] VITALS: BP 143/68
[2018-02-02 08:20] LABS: LACTATE DEHYDROGENASE 285 U/L (81-234)
[2018-02-02 08:21] LABS: INR 1.2 (0.9-1.1)
[2018-02-02 08:27] LABS: ANION GAP 12 mmol/L (5-15); BLOOD UREA NITROGEN 20 mg/dL (7-18); CALCIUM 9.1 MG/DL (8.5-10.1); CARBON DIOXIDE 23 MMOL/L (21-32); CHLORIDE 109 MMOL/L (98-107); CREATININE 1.2 MG/DL (0.55-1.30); POTASSIUM 4.3 MMOL/L (3.5-5.1); SODIUM 144 MMOL/L (136-145)
[2018-02-02] MEDS: Heparin 5000 units/ml inj SUBQ SCH ×3 (09:00→21:28)
[2018-02-02 09:01] LABS: % IRON SATURATION 12 % (15-50); IRON 29 ug/dL (50-175); TOTAL IRON BINDING CAPACITY 237 ug/dL (250-450)
[2018-02-02] MEDS: Atenolol 25mg tab ORAL SCH (09:03)
[2018-02-02] MEDS: Aspirin Baby 81mg ORAL SCH (09:03)
[2018-02-02] MEDS: ALPRAZolam 0.5mg tab ORAL PRN (09:53)
--- NOTE | 2018-02-02 10:32 | Pulmonology Progress Note ---
Assessment/Plan Problems: (1) Acute on chronic systolic CHF (congestive heart failure) (2) Dyspnea (3) Pacemaker (4) NSTEMI (non-ST elevated myocardial infarction) (5) Delirium Assessment/Plan diuretics optimize cardiac meds f/u BNP sedation, and psychiatry f/u f/u cxr respiratory treatment symptomatic treatment. Subjective ROS Limited/Unobtainable: No Constitutional: Reports: no symptoms HEENT: Repors: no symptoms Respiratory: Reports: no symptoms Allergies: Coded Allergies: No Known Allergies (Unverified , 08/10/13) Objective Last 24 Hour Vital Signs Date Time Temp Pulse Resp B/P (MAP) Pulse Ox O2 Delivery O2 Flow Rate FiO2 02/02/18 09:03 97 143/68 02/02/18 09:00 Nasal Cannula 2.0 02/02/18 08:00 97.7 97 21 143/68 (93) 94 97.7 02/02/18 04:00 98.6 81 21 157/88 (111) 97 98.6 02/02/18 04:00 90 02/02/18 00:00 86 02/02/18 00:00 98.9 80 19 144/83 (103) 97 98.9 02/01/18 21:00 Nasal Cannula 2.0 02/01/18 20:57 84 20 99 Nasal Cannula 2.0 28 02/01/18 20:50 80 18 98 Nasal Cannula 2.0 28 02/01/18 20:22 68 18 Room Air 21 02/01/18 20:00 99.1 85 18 159/91 (113) 97 99.1 02/01/18 20:00 82 02/01/18 16:00 Nasal Cannula 2.0 02/01/18 14:36 65 18 Room Air 21 02/01/18 12:00 97.9 77 18 142/70 (94) 97 97.9 02/01/18 12:00 81 02/01/18 12:00 Nasal Cannula 2.0 Intake and Output 02/01/18 02/02/18 19:00 07:00 Intake Total 600 ml 1015 ml Output Total 3 ml Balance 597 ml 1015 ml Intake Oral 600 ml 1015 ml Output Urine Total 3 ml # Voids 6 General Appearance: WD/WN HEENT: normocephalic, atraumatic Respiratory/Chest: chest wall non-tender, lungs clear Breasts: no masses Cardiovascular: normal peripheral pulses Abdomen: normal bowel sounds, soft, non tender Genitourinary: normal external genitalia Extremities: no clubbing Neurologic/Psychiatric: abnormal gait Lymphatic: no groin adenopathy Laboratory Tests 02/02/18 06:55: White Blood Count 7.5, Red Blood Count 3.14L, Hemoglobin 9.0L, Hematocrit 28.9L , Mean Corpuscular Volume 92, Mean Corpuscular Hemoglobin 28.8, Mean Corpuscular Hemoglobin Concent 31.3L, Red Cell Distribution Width 17.5H, Platelet Count 273, Mean Platelet Volume 7.0, Neutrophils (%) (Auto) 71.6, Lymphocytes (%) (Auto) 20.9, Monocytes (%) (Auto) 6.0, Eosinophils (%) (Auto) 1.2, Basophils (%) (Auto) 0.3, Erythrocyte Sedimentation Rate 15, Reticulocyte Count [Pending], Prothrombin Time 12.9H, Prothromb Time International Ratio 1.2H , Activated Partial Thromboplast Time 26, Sodium Level 144, Potassium Level 4.3 , Chloride Level 109H, Carbon Dioxide Level 23, Anion Gap 12, Blood Urea Nitrogen 20H, Creatinine 1.2, Estimat Glomerular Filtration Rate , Glucose Level 92, Calcium Level 9.1, Iron Level 29L, Total Iron Binding Capacity 237L, Percent Iron Saturation 12L, Unsaturated Iron Binding 208, Lactate Dehydrogenase 285H, Troponin I 0.174H, Pro-B-Type Natriuretic Peptide > 78383A, Carcinoembryonic Antigen [Pending], Vitamin B12 Level 606, Folate 18.2 Current Medications Medications (Trade) Dose Ordered Sig/Yi Route PRN Reason Start Time Stop Time Status Last Admin Dose Admin Acetaminophen (Tylenol) 650 mg Q4H PRN ORAL FEVER 02/01/18 16:27 03/02/18 16:26 Acetaminophen/ Hydrocodone Bitart ([place] 5/325) 1 tab Q6H PRN ORAL Moderate Pain (Pain Scale 4-6) 02/01/18 16:29 02/07/18 16:28 Albuterol/ Ipratropium (Albuterol/ Ipratropium) 3 ml Q4H PRN HHN Shortness of Breath 02/01/18 17:00 02/06/18 16:59 02/01/18 20:56 Alprazolam (Xanax) 1 mg Q4H PRN ORAL For Anxiety 02/01/18 16:28 02/08/18 16:27 02/02/18 09:53 Aspirin (ASA) 162 mg DAILY ORAL 02/02/18 09:00 03/03/18 08:59 02/02/18 09:03 Atenolol (Tenormin) 25 mg DAILY ORAL 02/02/18 09:00 03/03/18 08:59 02/02/18 09:03 Diltiazem HCl (Cardizem) 10 mg Q1H PRN IV heart rate more than 120, 02/01/18 16:28 03/02/18 16:27 Enalaprilat (Vasotec) 2.5 mg Q6H PRN IV sbp more than 160 02/01/18 18:00 03/03/18 17:59 Heparin Sodium (Porcine) (Heparin 5000 units/ml) 5,000 units EVERY 12 HOURS SUBQ 02/01/18 21:00 03/02/18 20:59 Ketorolac Tromethamine (Toradol 30mg) 15 mg Q6H PRN IV moderate pain ( 4-6) 02/01/18 18:00 02/06/18 17:59 Lorazepam (Ativan 2mg/ml 1ml) 0.5 mg Q4H PRN IV For Anxiety 02/01/18 17:35 02/08/18 17:14 02/02/18 08:20 Morphine Sulfate (Morphine Sulfate) 2 mg Q4H PRN IVP severe Pain (Pain Scale 7-10) 02/01/18 16:29 02/07/18 16:28 Nitroglycerin (Ntg) 0.4 mg Q5MIN X 3 DOSES PRN SL Prn Chest Pain 02/01/18 16:30 03/02/18 14:42 Ondansetron HCl (Zofran) 4 mg Q6H PRN IVP Nausea & Vomiting 02/01/18 16:29 03/02/18 16:28 Polyethylene Glycol (Miralax) 17 gm DAILYPRN PRN ORAL Constipation 02/01/18 16:29 03/03/18 16:28 Quetiapine Fumarate (SEROquel) 25 mg Q6H PRN ORAL ANXIETY/AGITATION 02/01/18 17:15 03/03/18 17:14 02/02/18 05:01 Quetiapine Fumarate (SEROquel) 25 mg THREE TIMES A DAY ORAL 02/01/18 18:00 03/03/18 17:59 02/02/18 09:03 Temazepam (Restoril) 15 mg HSPRN PRN ORAL Insomnia 02/01/18 21:00 02/07/18 20:59 Rod Mancera MD Feb 02, 2018 10:32
[2018-02-02] MEDS ORDERED: LORazepam Inj 2mg/ml 1ml IM SCH (10:45)
[2018-02-02] MEDS ORDERED: DiphenhydrAMINE 50mg/ml Inj IM SCH (10:45)
[2018-02-02] MEDS: Norco 5mg/325mg tab ORAL PRN (11:50)
[2018-02-02 12:00] VITALS: BP 133/76
--- NOTE | 2018-02-02 12:08 | General Progress Note ---
Assessment/Plan Assessment/Plan encephalopathy due to [facility] [facility] [place] d/o seroquel prn ativan prn Subjective Neurologic/Psychiatric: Reports: anxiety, depressed, emotional problems Allergies: Coded Allergies: No Known Allergies (Unverified , 08/10/13) Subjective yelling agitated Objective Last 24 Hour Vital Signs Date Time Temp Pulse Resp B/P (MAP) Pulse Ox O2 Delivery O2 Flow Rate FiO2 02/02/18 12:00 97.7 100 21 133/76 (95) 99 97.7 02/02/18 09:03 97 143/68 02/02/18 09:00 Nasal Cannula 2.0 02/02/18 08:00 97.7 97 21 143/68 (93) 94 97.7 02/02/18 08:00 84 02/02/18 04:00 98.6 81 21 157/88 (111) 97 98.6 02/02/18 04:00 90 02/02/18 00:00 86 02/02/18 00:00 98.9 80 19 144/83 (103) 97 98.9 02/01/18 21:00 Nasal Cannula 2.0 02/01/18 20:57 84 20 99 Nasal Cannula 2.0 28 02/01/18 20:50 80 18 98 Nasal Cannula 2.0 28 02/01/18 20:22 68 18 Room Air 21 02/01/18 20:00 99.1 85 18 159/91 (113) 97 99.1 02/01/18 20:00 82 02/01/18 16:00 Nasal Cannula 2.0 02/01/18 14:36 65 18 Room Air 21 Intake and Output 02/01/18 02/02/18 19:00 07:00 Intake Total 600 ml 1015 ml Output Total 3 ml Balance 597 ml 1015 ml Intake Oral 600 ml 1015 ml Output Urine Total 3 ml # Voids 6 Laboratory Tests 02/02/18 06:55: White Blood Count 7.5, Red Blood Count 3.14L, Hemoglobin 9.0L, Hematocrit 28.9L , Mean Corpuscular Volume 92, Mean Corpuscular Hemoglobin 28.8, Mean Corpuscular Hemoglobin Concent 31.3L, Red Cell Distribution Width 17.5H, Platelet Count 273, Mean Platelet Volume 7.0, Neutrophils (%) (Auto) 71.6, Lymphocytes (%) (Auto) 20.9, Monocytes (%) (Auto) 6.0, Eosinophils (%) (Auto) 1.2, Basophils (%) (Auto) 0.3, Erythrocyte Sedimentation Rate 15, Reticulocyte Count [Pending], Prothrombin Time 12.9H, Prothromb Time International Ratio 1.2H , Activated Partial Thromboplast Time 26, Sodium Level 144, Potassium Level 4.3 , Chloride Level 109H, Carbon Dioxide Level 23, Anion Gap 12, Blood Urea Nitrogen 20H, Creatinine 1.2, Estimat Glomerular Filtration Rate , Glucose Level 92, Calcium Level 9.1, Iron Level 29L, Total Iron Binding Capacity 237L, Percent Iron Saturation 12L, Unsaturated Iron Binding 208, Lactate Dehydrogenase 285H, Troponin I 0.174H, Pro-B-Type Natriuretic Peptide > 11600G, Carcinoembryonic Antigen [Pending], Vitamin B12 Level 606, Folate 18.2 Height (Feet): 5 Height (Inches): 4.00 Weight (Pounds): 136 General Appearance: no apparent distress, alert, confused, agitated Lena Bob MD Feb 02, 2018 12:08
[2018-02-02] MEDS ORDERED: Haloperidol 5mg/ml Inj IM SCH (12:15)
--- NOTE | 2018-02-02 14:06 | Psych Consult Progress Note ---
Psych Consult Progress Note Vital Signs Last 24 Hour Vital Signs Date Time Temp Pulse Resp B/P (MAP) Pulse Ox O2 Delivery O2 Flow Rate FiO2 02/02/18 12:00 97.7 100 21 133/76 (95) 99 97.7 02/02/18 10:05 78 18 Room Air 21 02/02/18 09:03 97 143/68 02/02/18 09:00 Nasal Cannula 2.0 02/02/18 08:00 97.7 97 21 143/68 (93) 94 97.7 02/02/18 08:00 84 02/02/18 04:00 98.6 81 21 157/88 (111) 97 98.6 02/02/18 04:00 90 02/02/18 00:00 86 02/02/18 00:00 98.9 80 19 144/83 (103) 97 98.9 02/01/18 21:00 Nasal Cannula 2.0 02/01/18 20:57 84 20 99 Nasal Cannula 2.0 28 02/01/18 20:50 80 18 98 Nasal Cannula 2.0 28 02/01/18 20:22 68 18 Room Air 21 02/01/18 20:00 99.1 85 18 159/91 (113) 97 99.1 02/01/18 20:00 82 02/01/18 16:00 Nasal Cannula 2.0 02/01/18 14:36 65 18 Room Air 21 Labs Laboratory Tests Test 02/02/18 06:55 White Blood Count 7.5 K/UL (4.8-10.8) Red Blood Count 3.14 M/UL (4.20-5.40) L Hemoglobin 9.0 G/DL (12.0-16.0) L Hematocrit 28.9 % (37.0-47.0) L Mean Corpuscular Volume 92 FL (80-99) Mean Corpuscular Hemoglobin 28.8 PG (27.0-31.0) Mean Corpuscular Hemoglobin Concent 31.3 G/DL (32.0-36.0) L Red Cell Distribution Width 17.5 % (11.6-14.8) H Platelet Count 273 K/UL (150-450) Mean Platelet Volume 7.0 FL (6.5-10.1) Neutrophils (%) (Auto) 71.6 % (45.0-75.0) Lymphocytes (%) (Auto) 20.9 % (20.0-45.0) Monocytes (%) (Auto) 6.0 % (1.0-10.0) Eosinophils (%) (Auto) 1.2 % (0.0-3.0) Basophils (%) (Auto) 0.3 % (0.0-2.0) Differential Total Cells Counted 100 Neutrophils % (Manual) 73 % (45-75) Lymphocytes % (Manual) 21 % (20-45) Monocytes % (Manual) 5 % (1-10) Eosinophils % (Manual) 1 % (0-3) Basophils % (Manual) 0 % (0-2) Band Neutrophils 0 % (0-8) Platelet Estimate Adequate Platelet Morphology Normal Hypochromasia 2+ Anisocytosis 1+ Erythrocyte Sedimentation Rate 15 MM/HR (0-30) Reticulocyte Count 2.9 % (0.0-2.0) H Prothrombin Time 12.9 SEC (9.30-11.50) H Prothromb Time International Ratio 1.2 (0.9-1.1) H Activated Partial Thromboplast Time 26 SEC (23-33) Sodium Level 144 MMOL/L (136-145) Potassium Level 4.3 MMOL/L (3.5-5.1) Chloride Level 109 MMOL/L (98-107) H Carbon Dioxide Level 23 MMOL/L (21-32) Anion Gap 12 mmol/L (5-15) Blood Urea Nitrogen 20 mg/dL (7-18) H Creatinine 1.2 MG/DL (0.55-1.30) Estimat Glomerular Filtration Rate mL/min (>60) Glucose Level 92 MG/DL (74-106) Calcium Level 9.1 MG/DL (8.5-10.1) Iron Level 29 ug/dL (50-175) L Total Iron Binding Capacity 237 ug/dL (250-450) L Percent Iron Saturation 12 % (15-50) L Unsaturated Iron Binding 208 ug/dL (112-346) Lactate Dehydrogenase 285 U/L (81-234) H Troponin I 0.174 ng/mL (0.000-0.056) Pro-B-Type Natriuretic Peptide > 20397 pg/mL (0-125) H Carcinoembryonic Antigen Pending Vitamin B12 Level 606 PG/ML (193-986) Folate 18.2 NG/ML (8.6-58.9) Medications Current Medications Medications (Trade) Dose Ordered Sig/Yi Route PRN Reason Start Time Stop Time Status Last Admin Dose Admin Acetaminophen (Tylenol) 650 mg Q4H PRN ORAL FEVER 02/01/18 16:27 03/02/18 16:26 Acetaminophen/ Hydrocodone Bitart ([place] 5/325) 1 tab Q6H PRN ORAL Moderate Pain (Pain Scale 4-6) 02/01/18 16:29 02/07/18 16:28 02/02/18 11:50 Albuterol/ Ipratropium (Albuterol/ Ipratropium) 3 ml Q4H PRN HHN Shortness of Breath 02/01/18 17:00 02/06/18 16:59 02/01/18 20:56 Alprazolam (Xanax) 1 mg Q4H PRN ORAL For Anxiety 02/01/18 16:28 02/08/18 16:27 02/02/18 09:53 Aspirin (ASA) 162 mg DAILY ORAL 02/02/18 09:00 03/03/18 08:59 02/02/18 09:03 Atenolol (Tenormin) 25 mg DAILY ORAL 02/02/18 09:00 03/03/18 08:59 02/02/18 09:03 Diltiazem HCl (Cardizem) 10 mg Q1H PRN IV heart rate more than 120, 02/01/18 16:28 03/02/18 16:27 Enalaprilat (Vasotec) 2.5 mg Q6H PRN IV sbp more than 160 02/01/18 18:00 03/03/18 17:59 Heparin Sodium (Porcine) (Heparin 5000 units/ml) 5,000 units EVERY 12 HOURS SUBQ 02/01/18 21:00 03/02/18 20:59 Ketorolac Tromethamine (Toradol 30mg) 15 mg Q6H PRN IV moderate pain ( 4-6) 02/01/18 18:00 02/06/18 17:59 Lorazepam (Ativan 2mg/ml 1ml) 0.5 mg Q4H PRN IV For Anxiety 02/01/18 17:35 02/08/18 17:14 02/02/18 08:20 Morphine Sulfate (Morphine Sulfate) 2 mg Q4H PRN IVP severe Pain (Pain Scale 7-10) 02/01/18 16:29 02/07/18 16:28 Nitroglycerin (Ntg) 0.4 mg Q5MIN X 3 DOSES PRN SL Prn Chest Pain 02/01/18 16:30 03/02/18 14:42 Ondansetron HCl (Zofran) 4 mg Q6H PRN IVP Nausea & Vomiting 02/01/18 16:29 03/02/18 16:28 Polyethylene Glycol (Miralax) 17 gm DAILYPRN PRN ORAL Constipation 02/01/18 16:29 03/03/18 16:28 Quetiapine Fumarate (SEROquel) 25 mg Q6H PRN ORAL ANXIETY/AGITATION 02/01/18 17:15 03/03/18 17:14 02/02/18 05:01 Quetiapine Fumarate (SEROquel) 50 mg THREE TIMES A DAY ORAL 02/02/18 13:00 03/04/18 12:59 02/02/18 13:57 Temazepam (Restoril) 15 mg HSPRN PRN ORAL Insomnia 02/01/18 21:00 02/07/18 20:59 Problems: (1) encephalopathy due to Assessment & Plan: encephalopathy due to C psychotic d/o seroquel prn ativan prn haldol prn benadryl prn dc the sitter restraints Lena Bob MD Feb 02, 2018 14:06
--- NOTE | 2018-02-02 14:23 | Cardiology Report ---
APPROVED REPORT EKG Measurement Heart [id number] [id number] Normal sinus rhythm Left axis deviation Septal infarct, age undetermined Abnormal ECG
--- NOTE | 2018-02-02 14:26 | Cardiology Report ---
APPROVED REPORT EKG Measurement Heart [id number] atrial pacing
[2018-02-02 16:00] VITALS: BP 121/81
--- NOTE | 2018-02-02 18:00 | Internal Med Progress Note ---
Subjective Date of Service: Feb 02, 2018 Physician Name Matthews,Aquilino Attending Physician Carlos Alberto Berkowitz MD Current Medications Medications (Trade) Dose Ordered Sig/Yi Route PRN Reason Start Time Stop Time Status Last Admin Dose Admin Acetaminophen (Tylenol) 650 mg Q4H PRN ORAL FEVER 02/01/18 16:27 03/02/18 16:26 Acetaminophen/ Hydrocodone Bitart ([place] 5/325) 1 tab Q6H PRN ORAL Moderate Pain (Pain Scale 4-6) 02/01/18 16:29 02/07/18 16:28 02/02/18 11:50 Albuterol/ Ipratropium (Albuterol/ Ipratropium) 3 ml Q4H PRN HHN Shortness of Breath 02/01/18 17:00 02/06/18 16:59 02/01/18 20:56 Alprazolam (Xanax) 1 mg Q4H PRN ORAL For Anxiety 02/01/18 16:28 02/08/18 16:27 02/02/18 09:53 Aspirin (ASA) 162 mg DAILY ORAL 02/02/18 09:00 03/03/18 08:59 02/02/18 09:03 Atenolol (Tenormin) 25 mg DAILY ORAL 02/02/18 09:00 03/03/18 08:59 02/02/18 09:03 Diltiazem HCl (Cardizem) 10 mg Q1H PRN IV heart rate more than 120, 02/01/18 16:28 03/02/18 16:27 Enalaprilat (Vasotec) 2.5 mg Q6H PRN IV sbp more than 160 02/01/18 18:00 03/03/18 17:59 Heparin Sodium (Porcine) (Heparin 5000 units/ml) 5,000 units EVERY 12 HOURS SUBQ 02/01/18 21:00 03/02/18 20:59 Ketorolac Tromethamine (Toradol 30mg) 15 mg Q6H PRN IV moderate pain ( 4-6) 02/01/18 18:00 02/06/18 17:59 Lorazepam (Ativan 2mg/ml 1ml) 0.5 mg Q4H PRN IV For Anxiety 02/01/18 17:35 02/08/18 17:14 02/02/18 08:20 Morphine Sulfate (Morphine Sulfate) 2 mg Q4H PRN IVP severe Pain (Pain Scale 7-10) 02/01/18 16:29 02/07/18 16:28 Nitroglycerin (Ntg) 0.4 mg Q5MIN X 3 DOSES PRN SL Prn Chest Pain 02/01/18 16:30 03/02/18 14:42 Ondansetron HCl (Zofran) 4 mg Q6H PRN IVP Nausea & Vomiting 02/01/18 16:29 03/02/18 16:28 Polyethylene Glycol (Miralax) 17 gm DAILYPRN PRN ORAL Constipation 02/01/18 16:29 03/03/18 16:28 Quetiapine Fumarate (SEROquel) 25 mg Q6H PRN ORAL ANXIETY/AGITATION 02/01/18 17:15 03/03/18 17:14 02/02/18 05:01 Quetiapine Fumarate (SEROquel) 50 mg THREE TIMES A DAY ORAL 02/02/18 13:00 03/04/18 12:59 02/02/18 13:57 Temazepam (Restoril) 15 mg HSPRN PRN ORAL Insomnia 02/01/18 21:00 02/07/18 20:59 Allergies: Coded Allergies: No Known Allergies (Unverified , 08/10/13) ROS Limited/Unobtainable: Yes Subjective 82 YO F admitted with shortness of breath. Now marisela heart failure. Cover for Int Aakash-Dr Berkowitz Objective Last Vital Signs Date Time Temp Pulse Resp B/P (MAP) Pulse Ox O2 Delivery O2 Flow Rate FiO2 02/02/18 16:00 98.5 81 21 121/81 (94) 96 98.5 02/02/18 10:05 Room Air 21 02/02/18 09:00 2.0 General Appearance: WD/WN, no apparent distress, alert EENT: PERRL/EOMI, normal ENT inspection Neck: non-tender, normal alignment, supple, normal inspection Cardiovascular: normal peripheral pulses, normal rate, regular rhythm, no gallop/murmur, no JVD Respiratory/Chest: chest wall non-tender, respiratory distress, crackles/rales , rhonchi - bilaterally, expiratory wheezing Abdomen: normal bowel sounds, non tender, soft, no organomegaly, no mass Extremities: normal range of motion, non-tender Edema: trace edema Neurologic: energy 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 II-XII grossly normal, no motor/sensory deficits Skin: normal pigmentation, warm/dry Laboratory Tests Test 02/02/18 06:55 White Blood Count 7.5 K/UL (4.8-10.8) Red Blood Count 3.14 M/UL (4.20-5.40) L Hemoglobin 9.0 G/DL (12.0-16.0) L Hematocrit 28.9 % (37.0-47.0) L Mean Corpuscular Volume 92 FL (80-99) Mean Corpuscular Hemoglobin 28.8 PG (27.0-31.0) Mean Corpuscular Hemoglobin Concent 31.3 G/DL (32.0-36.0) L Red Cell Distribution Width 17.5 % (11.6-14.8) H Platelet Count 273 K/UL (150-450) Mean Platelet Volume 7.0 FL (6.5-10.1) Neutrophils (%) (Auto) 71.6 % (45.0-75.0) Lymphocytes (%) (Auto) 20.9 % (20.0-45.0) Monocytes (%) (Auto) 6.0 % (1.0-10.0) Eosinophils (%) (Auto) 1.2 % (0.0-3.0) Basophils (%) (Auto) 0.3 % (0.0-2.0) Differential Total Cells Counted 100 Neutrophils % (Manual) 73 % (45-75) Lymphocytes % (Manual) 21 % (20-45) Monocytes % (Manual) 5 % (1-10) Eosinophils % (Manual) 1 % (0-3) Basophils % (Manual) 0 % (0-2) Band Neutrophils 0 % (0-8) Platelet Estimate Adequate Platelet Morphology Normal Hypochromasia 2+ Anisocytosis 1+ Erythrocyte Sedimentation Rate 15 MM/HR (0-30) Reticulocyte Count 2.9 % (0.0-2.0) H Prothrombin Time 12.9 SEC (9.30-11.50) H Prothromb Time International Ratio 1.2 (0.9-1.1) H Activated Partial Thromboplast Time 26 SEC (23-33) Sodium Level 144 MMOL/L (136-145) Potassium Level 4.3 MMOL/L (3.5-5.1) Chloride Level 109 MMOL/L (98-107) H Carbon Dioxide Level 23 MMOL/L (21-32) Anion Gap 12 mmol/L (5-15) Blood Urea Nitrogen 20 mg/dL (7-18) H Creatinine 1.2 MG/DL (0.55-1.30) Estimat Glomerular Filtration Rate mL/min (>60) Glucose Level 92 MG/DL (74-106) Calcium Level 9.1 MG/DL (8.5-10.1) Iron Level 29 ug/dL (50-175) L Total Iron Binding Capacity 237 ug/dL (250-450) L Percent Iron Saturation 12 % (15-50) L Unsaturated Iron Binding 208 ug/dL (112-346) Lactate Dehydrogenase 285 U/L (81-234) H Troponin I 0.174 ng/mL (0.000-0.056) Pro-B-Type Natriuretic Peptide > 37155 pg/mL (0-125) H Carcinoembryonic Antigen Pending Vitamin B12 Level 606 PG/ML (193-986) Folate 18.2 NG/ML (8.6-58.9) Intake and Output 02/01/18 02/02/18 19:00 07:00 Intake Total 600 ml 1015 ml Output Total 3 ml Balance 597 ml 1015 ml Intake Oral 600 ml 1015 ml Output Urine Total 3 ml # Voids 6 Assessment/Plan Problem List: (1) Sick sinus syndrome Assessment & Plan: S/P pacemaker (2) Hypercholesteremia (3) Fracture of pubic ramus Assessment & Plan: Non surgical - see ortho note (4) Closed fracture of symphysis pubis Assessment & Plan: Non surgical-see ortho note. (5) Diabetes mellitus, type II (6) HTN (hypertension) Assessment & Plan: Continue vasotec and diltiazem (7) Dyspnea (8) Acute on chronic systolic CHF (congestive heart failure) Assessment & Plan: BNP >35,000. see cardiology note. LVEF=35% (9) Pacemaker Status: not improved Aquilino Matthews MD Feb 02, 2018 17:59
[2018-02-02 20:00] VITALS: BP 158/78
[2018-02-03] VITALS: BP 114/63
[2018-02-03 04:00] VITALS: BP 152/93
[2018-02-03 08:00] VITALS: BP 148/77
--- NOTE | 2018-02-03 09:10 | Diagnostic Imaging Report ---
. Indication: Dyspnea Technique: One view of the chest Comparison: 01/31/2018 Findings: Bilateral pacemakers are again demonstrated. Bilateral interstitial congestive changes and airspace consolidation appear slightly increased from the prior studies. Left costophrenic angle remains slightly blunted, right costophrenic angle is obscured by the overlying pacemaker power pack Impression: Slightly increased interstitial congestion and bilateral airspace opacities, over 3 days. Other stable findings as described
[2018-02-03] MEDS: Aspirin Baby 81mg ORAL SCH (09:13)
[2018-02-03] MEDS: ALPRAZolam 0.5mg tab ORAL PRN (09:14)
[2018-02-03] MEDS: Atenolol 25mg tab ORAL SCH (09:14)
[2018-02-03] MEDS: Heparin 5000 units/ml inj SUBQ SCH ×2 (09:16→20:34)
[2018-02-03 09:42] LABS: BASOPHILS % (AUTO) 0.3 % (0.0-2.0); EOSINOPHILS % (AUTO) 0.9 % (0.0-3.0); HEMATOCRIT 30.6 % (37.0-47.0); HEMOGLOBIN 9.8 G/DL (12.0-16.0); LYMPHOCYTES % (AUTO) 15.1 % (20.0-45.0); MEAN CORPUSCULAR VOLUME 93 FL (80-99); MONOCYTES % (AUTO) 7.3 % (1.0-10.0); NEUTROPHILS % (AUTO) 76.4 % (45.0-75.0); PLATELET COUNT 287 K/UL (150-450); RED BLOOD COUNT 3.29 M/UL (4.20-5.40); WHITE BLOOD COUNT 6.8 K/UL (4.8-10.8)
[2018-02-03 10:16] LABS: ALANINE AMINOTRANSFERASE 24 U/L (12-78); ALBUMIN/GLOBULIN RATIO 0.9 (1.0-2.7); ALKALINE PHOSPHATASE 58 U/L (46-116); ANION GAP 10 mmol/L (5-15); ASPARTATE AMINO TRANSFERASE 25 U/L (15-37); BILIRUBIN,TOTAL 0.7 MG/DL (0.2-1.0); BLOOD UREA NITROGEN 15 mg/dL (7-18); CALCIUM 8.9 MG/DL (8.5-10.1); CARBON DIOXIDE 24 MMOL/L (21-32); CHLORIDE 112 MMOL/L (98-107); CREATININE 1.1 MG/DL (0.55-1.30); POTASSIUM 3.6 MMOL/L (3.5-5.1); SODIUM 146 MMOL/L (136-145)
--- NOTE | 2018-02-03 11:06 | General Progress Note ---
Assessment/Plan Problem List: (1) encephalopathy due to Assessment & Plan: encephalopathy due to [facility] psychotic d/o seroquel prn ativan prn haldol prn benadryl prn restraints Status: stable, progressing Assessment/Plan encephalopathy due to [facility] psychotic d/o seroquel prn ativan prn Subjective Date patient seen: Feb 03, 2018 Neurologic/Psychiatric: Reports: anxiety, depressed, emotional problems Allergies: Coded Allergies: No Known Allergies (Unverified , 08/10/13) Subjective yelling agitated Objective Last 24 Hour Vital Signs Date Time Temp Pulse Resp B/P (MAP) Pulse Ox O2 Delivery O2 Flow Rate FiO2 02/03/18 09:14 81 148/77 02/03/18 09:00 Nasal Cannula 2.0 02/03/18 08:00 98.1 81 20 148/77 (100) 93 98.1 02/03/18 07:54 83 02/03/18 04:00 80 02/03/18 04:00 97.8 87 20 152/93 (112) 94 97.8 02/03/18 00:00 97.0 93 20 114/63 (80) 97 97.0 02/03/18 00:00 70 02/02/18 22:07 77 18 Room Air 21 02/02/18 21:00 Nasal Cannula 2.0 02/02/18 20:00 97.8 64 20 158/78 (104) 95 97.8 02/02/18 20:00 68 02/02/18 16:00 89 02/02/18 16:00 98.5 81 21 121/81 (94) 96 98.5 02/02/18 12:00 97.7 100 21 133/76 (95) 99 97.7 02/02/18 12:00 76 Intake and Output 02/02/18 02/03/18 19:00 07:00 Intake Total 90 ml Balance 90 ml Intake Oral 90 ml # Voids 2 3 Laboratory Tests 02/03/18 09:30: White Blood Count 6.8, Red Blood Count 3.29L, Hemoglobin 9.8L, Hematocrit 30.6L , Mean Corpuscular Volume 93, Mean Corpuscular Hemoglobin 29.8, Mean Corpuscular Hemoglobin Concent 32.0, Red Cell Distribution Width 18.0H, Platelet Count 287, Mean Platelet Volume 7.4, Neutrophils (%) (Auto) 76.4H, Lymphocytes (%) (Auto) 15.1L, Monocytes (%) (Auto) 7.3, Eosinophils (%) (Auto) 0.9, Basophils (%) (Auto) 0.3, Sodium Level 146H, Potassium Level 3.6, Chloride Level 112H, Carbon Dioxide Level 24, Anion Gap 10, Blood Urea Nitrogen 15, Creatinine 1.1, Estimat Glomerular Filtration Rate , Glucose Level 138H, Calcium Level 8.9, Total Bilirubin 0.7, Aspartate Amino Transf (AST/SGOT) 25, Alanine Aminotransferase (ALT/SGPT) 24, Alkaline Phosphatase 58, Pro-B-Type Natriuretic Peptide 44316Y, Total Protein 6.4, Albumin 3.0L, Globulin 3.4, Albumin/Globulin Ratio 0.9L Height (Feet): 5 Height (Inches): 4.00 Weight (Pounds): 134 General Appearance: no apparent distress, alert, confused, agitated Lena Bob MD Feb 03, 2018 11:06
--- NOTE | 2018-02-03 11:11 | Pulmonology Progress Note ---
Assessment/Plan Problems: (1) Acute on chronic systolic CHF (congestive heart failure) (2) Dyspnea (3) Pacemaker (4) NSTEMI (non-ST elevated myocardial infarction) (5) Delirium Assessment/Plan diuretics optimize cardiac meds f/u BNP sedation, and psychiatry f/u respiratory treatment symptomatic treatment. f/u cardiology recommendation Subjective ROS Limited/Unobtainable: No Constitutional: Reports: no symptoms HEENT: Repors: no symptoms Respiratory: Reports: no symptoms Allergies: Coded Allergies: No Known Allergies (Unverified , 08/10/13) Objective Last 24 Hour Vital Signs Date Time Temp Pulse Resp B/P (MAP) Pulse Ox O2 Delivery O2 Flow Rate FiO2 02/03/18 09:14 81 148/77 02/03/18 09:00 Nasal Cannula 2.0 02/03/18 08:00 98.1 81 20 148/77 (100) 93 98.1 02/03/18 07:54 83 02/03/18 04:00 80 02/03/18 04:00 97.8 87 20 152/93 (112) 94 97.8 02/03/18 00:00 97.0 93 20 114/63 (80) 97 97.0 02/03/18 00:00 70 02/02/18 22:07 77 18 Room Air 21 02/02/18 21:00 Nasal Cannula 2.0 02/02/18 20:00 97.8 64 20 158/78 (104) 95 97.8 02/02/18 20:00 68 02/02/18 16:00 89 02/02/18 16:00 98.5 81 21 121/81 (94) 96 98.5 02/02/18 12:00 97.7 100 21 133/76 (95) 99 97.7 02/02/18 12:00 76 Intake and Output 02/02/18 02/03/18 19:00 07:00 Intake Total 90 ml Balance 90 ml Intake Oral 90 ml # Voids 2 3 General Appearance: WD/WN HEENT: normocephalic, atraumatic Respiratory/Chest: chest wall non-tender, lungs clear, no respiratory distress Cardiovascular: normal peripheral pulses, normal rate Abdomen: normal bowel sounds, soft, non tender Genitourinary: normal external genitalia Extremities: no clubbing Skin: no rash Laboratory Tests 02/03/18 09:30: White Blood Count 6.8, Red Blood Count 3.29L, Hemoglobin 9.8L, Hematocrit 30.6L , Mean Corpuscular Volume 93, Mean Corpuscular Hemoglobin 29.8, Mean Corpuscular Hemoglobin Concent 32.0, Red Cell Distribution Width 18.0H, Platelet Count 287, Mean Platelet Volume 7.4, Neutrophils (%) (Auto) 76.4H, Lymphocytes (%) (Auto) 15.1L, Monocytes (%) (Auto) 7.3, Eosinophils (%) (Auto) 0.9, Basophils (%) (Auto) 0.3, Sodium Level 146H, Potassium Level 3.6, Chloride Level 112H, Carbon Dioxide Level 24, Anion Gap 10, Blood Urea Nitrogen 15, Creatinine 1.1, Estimat Glomerular Filtration Rate , Glucose Level 138H, Calcium Level 8.9, Total Bilirubin 0.7, Aspartate Amino Transf (AST/SGOT) 25, Alanine Aminotransferase (ALT/SGPT) 24, Alkaline Phosphatase 58, Pro-B-Type Natriuretic Peptide 32818S, Total Protein 6.4, Albumin 3.0L, Globulin 3.4, Albumin/Globulin Ratio 0.9L Current Medications Medications (Trade) Dose Ordered Sig/Yi Route PRN Reason Start Time Stop Time Status Last Admin Dose Admin Acetaminophen (Tylenol) 650 mg Q4H PRN ORAL FEVER 02/01/18 16:27 03/02/18 16:26 Acetaminophen/ Hydrocodone Bitart ([place] 5/325) 1 tab Q6H PRN ORAL Moderate Pain (Pain Scale 4-6) 02/01/18 16:29 02/07/18 16:28 02/02/18 11:50 Albuterol/ Ipratropium (Albuterol/ Ipratropium) 3 ml Q4H PRN HHN Shortness of Breath 02/01/18 17:00 02/06/18 16:59 02/01/18 20:56 Aspirin (ASA) 162 mg DAILY ORAL 02/02/18 09:00 03/03/18 08:59 02/03/18 09:13 Atenolol (Tenormin) 25 mg DAILY ORAL 02/02/18 09:00 03/03/18 08:59 02/03/18 09:14 Diltiazem HCl (Cardizem) 10 mg Q1H PRN IV heart rate more than 120, 02/01/18 16:28 03/02/18 16:27 Enalaprilat (Vasotec) 2.5 mg Q6H PRN IV sbp more than 160 02/01/18 18:00 03/03/18 17:59 Heparin Sodium (Porcine) (Heparin 5000 units/ml) 5,000 units EVERY 12 HOURS SUBQ 02/01/18 21:00 03/02/18 20:59 02/03/18 09:16 Ketorolac Tromethamine (Toradol 30mg) 15 mg Q6H PRN IV moderate pain ( 4-6) 02/01/18 18:00 02/06/18 17:59 Lorazepam (Ativan 2mg/ml 1ml) 1 mg Q4H PRN IV For Anxiety 02/03/18 12:00 02/10/18 11:59 Morphine Sulfate (Morphine Sulfate) 2 mg Q4H PRN IVP severe Pain (Pain Scale 7-10) 02/01/18 16:29 02/07/18 16:28 Nitroglycerin (Ntg) 0.4 mg Q5MIN X 3 DOSES PRN SL Prn Chest Pain 02/01/18 16:30 03/02/18 14:42 Ondansetron HCl (Zofran) 4 mg Q6H PRN IVP Nausea & Vomiting 02/01/18 16:29 03/02/18 16:28 Polyethylene Glycol (Miralax) 17 gm DAILYPRN PRN ORAL Constipation 02/01/18 16:29 03/03/18 16:28 Quetiapine Fumarate (SEROquel) 25 mg Q6H PRN ORAL ANXIETY/AGITATION 02/01/18 17:15 03/03/18 17:14 02/02/18 05:01 Quetiapine Fumarate (SEROquel) 50 mg THREE TIMES A DAY ORAL 02/02/18 13:00 03/04/18 12:59 02/03/18 09:14 Temazepam (Restoril) 15 mg HSPRN PRN ORAL Insomnia 02/01/18 21:00 02/07/18 20:59 Rod Mancera MD Feb 03, 2018 11:11
[2018-02-03] MEDS: Norco 5mg/325mg tab ORAL PRN (11:49)
[2018-02-03 12:00] VITALS: BP 140/81
[2018-02-03] MEDS ORDERED: LORazepam Inj 2mg/ml 1ml IV PRN (12:00)
[2018-02-03] MEDS: Morphine Sulfate 2mg/ml Inj IVP PRN (14:44)
[2018-02-03 16:00] VITALS: BP 148/90
--- NOTE | 2018-02-03 17:45 | Internal Med Progress Note ---
Subjective Date of Service: Feb 03, 2018 Physician Name CassieAquilino Attending Physician Carlos Alberto Berkowitz MD Current Medications Medications (Trade) Dose Ordered Sig/Yi Route PRN Reason Start Time Stop Time Status Last Admin Dose Admin Acetaminophen (Tylenol) 650 mg Q4H PRN ORAL FEVER 02/01/18 16:27 03/02/18 16:26 Acetaminophen/ Hydrocodone Bitart ([place] 5/325) 1 tab Q6H PRN ORAL Moderate Pain (Pain Scale 4-6) 02/01/18 16:29 02/07/18 16:28 02/03/18 11:49 Albuterol/ Ipratropium (Albuterol/ Ipratropium) 3 ml Q4H PRN HHN Shortness of Breath 02/01/18 17:00 02/06/18 16:59 02/01/18 20:56 Aspirin (ASA) 162 mg DAILY ORAL 02/02/18 09:00 03/03/18 08:59 02/03/18 09:13 Atenolol (Tenormin) 25 mg DAILY ORAL 02/02/18 09:00 03/03/18 08:59 02/03/18 09:14 Diltiazem HCl (Cardizem) 10 mg Q1H PRN IV heart rate more than 120, 02/01/18 16:28 03/02/18 16:27 Enalaprilat (Vasotec) 2.5 mg Q6H PRN IV sbp more than 160 02/01/18 18:00 03/03/18 17:59 Heparin Sodium (Porcine) (Heparin 5000 units/ml) 5,000 units EVERY 12 HOURS SUBQ 02/01/18 21:00 03/02/18 20:59 02/03/18 09:16 Ketorolac Tromethamine (Toradol 30mg) 15 mg Q6H PRN IV moderate pain ( 4-6) 02/01/18 18:00 02/06/18 17:59 Lorazepam (Ativan 2mg/ml 1ml) 1 mg Q4H PRN IM Agitation 02/03/18 15:45 02/10/18 15:44 Morphine Sulfate (Morphine Sulfate) 2 mg Q4H PRN IVP severe Pain (Pain Scale 7-10) 02/01/18 16:29 02/07/18 16:28 02/03/18 14:44 Nitroglycerin (Ntg) 0.4 mg Q5MIN X 3 DOSES PRN SL Prn Chest Pain 02/01/18 16:30 03/02/18 14:42 Ondansetron HCl (Zofran) 4 mg Q6H PRN IVP Nausea & Vomiting 02/01/18 16:29 03/02/18 16:28 Polyethylene Glycol (Miralax) 17 gm DAILYPRN PRN ORAL Constipation 02/01/18 16:29 03/03/18 16:28 Quetiapine Fumarate (SEROquel) 25 mg Q6H PRN ORAL ANXIETY/AGITATION 02/01/18 17:15 03/03/18 17:14 02/02/18 05:01 Quetiapine Fumarate (SEROquel) 50 mg THREE TIMES A DAY ORAL 02/02/18 13:00 03/04/18 12:59 02/03/18 09:14 Temazepam (Restoril) 15 mg HSPRN PRN ORAL Insomnia 02/01/18 21:00 02/07/18 20:59 Allergies: Coded Allergies: No Known Allergies (Unverified , 08/10/13) ROS Limited/Unobtainable: Yes Subjective 82 YO F admitted with shortness of breath. Now marisela heart failure. Cover for Int Med-Dr Berkowitz Objective Last Vital Signs Date Time Temp Pulse Resp B/P (MAP) Pulse Ox O2 Delivery O2 Flow Rate FiO2 02/03/18 16:00 80 02/03/18 16:00 97.5 18 148/90 (109) 99 97.5 02/03/18 09:00 Nasal Cannula 2.0 02/02/18 22:07 21 Laboratory Tests Test 02/03/18 09:30 White Blood Count 6.8 K/UL (4.8-10.8) Red Blood Count 3.29 M/UL (4.20-5.40) L Hemoglobin 9.8 G/DL (12.0-16.0) L Hematocrit 30.6 % (37.0-47.0) L Mean Corpuscular Volume 93 FL (80-99) Mean Corpuscular Hemoglobin 29.8 PG (27.0-31.0) Mean Corpuscular Hemoglobin Concent 32.0 G/DL (32.0-36.0) Red Cell Distribution Width 18.0 % (11.6-14.8) H Platelet Count 287 K/UL (150-450) Mean Platelet Volume 7.4 FL (6.5-10.1) Neutrophils (%) (Auto) 76.4 % (45.0-75.0) H Lymphocytes (%) (Auto) 15.1 % (20.0-45.0) L Monocytes (%) (Auto) 7.3 % (1.0-10.0) Eosinophils (%) (Auto) 0.9 % (0.0-3.0) Basophils (%) (Auto) 0.3 % (0.0-2.0) Sodium Level 146 MMOL/L (136-145) H Potassium Level 3.6 MMOL/L (3.5-5.1) Chloride Level 112 MMOL/L (98-107) H Carbon Dioxide Level 24 MMOL/L (21-32) Anion Gap 10 mmol/L (5-15) Blood Urea Nitrogen 15 mg/dL (7-18) Creatinine 1.1 MG/DL (0.55-1.30) Estimat Glomerular Filtration Rate mL/min (>60) Glucose Level 138 MG/DL (74-106) H Calcium Level 8.9 MG/DL (8.5-10.1) Total Bilirubin 0.7 MG/DL (0.2-1.0) Aspartate Amino Transf (AST/SGOT) 25 U/L (15-37) Alanine Aminotransferase (ALT/SGPT) 24 U/L (12-78) Alkaline Phosphatase 58 U/L (46-116) Pro-B-Type Natriuretic Peptide 44239 pg/mL (0-125) H Total Protein 6.4 G/DL (6.4-8.2) Albumin 3.0 G/DL (3.4-5.0) L Globulin 3.4 g/dL Albumin/Globulin Ratio 0.9 (1.0-2.7) L Intake and Output 02/02/18 02/03/18 19:00 07:00 Intake Total 90 ml Balance 90 ml Intake Oral 90 ml # Voids 2 3 Objective General Appearance: WD/WN, no apparent distress, alert EENT: PERRL/EOMI, normal ENT inspection Neck: non-tender, normal alignment, supple, normal inspection Cardiovascular: normal peripheral pulses, normal rate, regular rhythm, no gallop/murmur, no JVD Respiratory/Chest: chest wall non-tender, respiratory distress, crackles/rales , rhonchi - bilaterally, expiratory wheezing Abdomen: normal bowel sounds, non tender, soft, no organomegaly, no mass Extremities: normal range of motion, non-tender Edema: trace edema 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 (5) Diabetes mellitus, type II (6) HTN (hypertension) Assessment & Plan: Continue vasotec and diltiazem (7) Dyspnea (8) Acute on chronic systolic CHF (congestive heart failure) Assessment & Plan: BNP >35,000. see cardiology note. LVEF=35% (9) Pacemaker (10) Psychosis Assessment & Plan: See psych note. Status: progressing Aquilino Matthews MD Feb 03, 2018 17:45
--- NOTE | 2018-02-03 17:55 | Cardiology Progress Note ---
Assessment/Plan Assessment/Plan the patient is restrianted, she does not seem ot be in acute distress, she clinically does not looks like CHF will change to cardvedilol and to losartan, add furosemide and atorvastatin, consider GI work up for recent GI bleed Subjective Subjective the patient is laying down in restraint, both wrist confused denies chest pin Objective Last 24 Hour Vital Signs Date Time Temp Pulse Resp B/P (MAP) Pulse Ox O2 Delivery O2 Flow Rate FiO2 02/03/18 16:00 80 02/03/18 16:00 97.5 84 18 148/90 (109) 99 97.5 02/03/18 12:03 78 02/03/18 12:00 97.3 73 20 140/81 (100) 96 97.3 02/03/18 10:05 71 16 Room Air 21 02/03/18 09:14 81 148/77 02/03/18 09:00 Nasal Cannula 2.0 02/03/18 08:00 98.1 81 20 148/77 (100) 93 98.1 02/03/18 07:54 83 02/03/18 04:00 80 02/03/18 04:00 97.8 87 20 152/93 (112) 94 97.8 02/03/18 00:00 97.0 93 20 114/63 (80) 97 97.0 02/03/18 00:00 70 02/02/18 22:07 77 18 Room Air 21 02/02/18 21:00 Nasal Cannula 2.0 02/02/18 20:00 97.8 64 20 158/78 (104) 95 97.8 02/02/18 20:00 68 General Appearance: cachetic, other - confused EENT: PERRL/EOMI Neck: JVD Rhythm: NSR Cardiovascular: normal rate, gallop/S4 Respiratory/Chest: crackles/rales - at bases Abdomen: non tender Extremities: normal capillary refill Neurologic: disoriented Intake and Output 02/02/18 02/03/18 19:00 07:00 Intake Total 90 ml Balance 90 ml Intake Oral 90 ml # Voids 2 3 Laboratory Tests Test 02/03/18 09:30 White Blood Count 6.8 K/UL (4.8-10.8) Red Blood Count 3.29 M/UL (4.20-5.40) L Hemoglobin 9.8 G/DL (12.0-16.0) L Hematocrit 30.6 % (37.0-47.0) L Mean Corpuscular Volume 93 FL (80-99) Mean Corpuscular Hemoglobin 29.8 PG (27.0-31.0) Mean Corpuscular Hemoglobin Concent 32.0 G/DL (32.0-36.0) Red Cell Distribution Width 18.0 % (11.6-14.8) H Platelet Count 287 K/UL (150-450) Mean Platelet Volume 7.4 FL (6.5-10.1) Neutrophils (%) (Auto) 76.4 % (45.0-75.0) H Lymphocytes (%) (Auto) 15.1 % (20.0-45.0) L Monocytes (%) (Auto) 7.3 % (1.0-10.0) Eosinophils (%) (Auto) 0.9 % (0.0-3.0) Basophils (%) (Auto) 0.3 % (0.0-2.0) Sodium Level 146 MMOL/L (136-145) H Potassium Level 3.6 MMOL/L (3.5-5.1) Chloride Level 112 MMOL/L (98-107) H Carbon Dioxide Level 24 MMOL/L (21-32) Anion Gap 10 mmol/L (5-15) Blood Urea Nitrogen 15 mg/dL (7-18) Creatinine 1.1 MG/DL (0.55-1.30) Estimat Glomerular Filtration Rate mL/min (>60) Glucose Level 138 MG/DL (74-106) H Calcium Level 8.9 MG/DL (8.5-10.1) Total Bilirubin 0.7 MG/DL (0.2-1.0) Aspartate Amino Transf (AST/SGOT) 25 U/L (15-37) Alanine Aminotransferase (ALT/SGPT) 24 U/L (12-78) Alkaline Phosphatase 58 U/L (46-116) Pro-B-Type Natriuretic Peptide 50545 pg/mL (0-125) H Total Protein 6.4 G/DL (6.4-8.2) Albumin 3.0 G/DL (3.4-5.0) L Globulin 3.4 g/dL Albumin/Globulin Ratio 0.9 (1.0-2.7) L Atif Olivere Y. MD Feb 03, 2018 17:55
[2018-02-03] MEDS: Losartan 25mg tab ORAL SCH (18:00)
[2018-02-03 20:30] VITALS: BP 160/85
[2018-02-03] MEDS: Carvedilol 6.25mg Tab ORAL SCH (20:33)
[2018-02-03] MEDS ORDERED: Atorvastatin 20mg tab ORAL SCH (21:00)
[2018-02-03] MEDS: Albuterol/Ipratropium 3ml neb HHN PRN (21:15)
[2018-02-03] MEDS: LORazepam Inj 2mg/ml 1ml IM PRN (22:44)
[2018-02-04] VITALS: BP 168/70
[2018-02-04 01:00] VITALS: BP 170/69
[2018-02-04] MEDS: Albuterol/Ipratropium 3ml neb HHN PRN (03:06)
[2018-02-04 03:30] VITALS: BP 150/84
[2018-02-04] MEDS: LORazepam Inj 2mg/ml 1ml IM PRN (05:26)
[2018-02-04 08:00] VITALS: BP 154/98
[2018-02-04] MEDS: Aspirin Baby 81mg ORAL SCH (08:16)
[2018-02-04] MEDS: Carvedilol 6.25mg Tab ORAL SCH (08:16)
[2018-02-04] MEDS: Losartan 25mg tab ORAL SCH (08:16)
[2018-02-04] MEDS: Heparin 5000 units/ml inj SUBQ SCH (08:17)
[2018-02-04] MEDS: Morphine Sulfate 2mg/ml Inj IVP PRN (08:18)
[2018-02-04] MEDS ORDERED: Furosemide 40mg tab ORAL SCH (09:00)
--- NOTE | 2018-02-04 10:38 | Pulmonology Progress Note ---
Assessment/Plan Problems: (1) DVT of left axillary vein, acute (2) Acute on chronic systolic CHF (congestive heart failure) (3) Dyspnea (4) Pacemaker (5) NSTEMI (non-ST elevated myocardial infarction) (6) Delirium (7) Psychosis Assessment/Plan diuretics, on laix PO optimize cardiac meds f/u BNP sedation, and psychiatry f/u respiratory treatment symptomatic treatment. f/u cardiology recommendation About left arm DVT, I am not sure if anticoagulation is a good option because of pts dementia and high risk of fall. Subjective ROS Limited/Unobtainable: No Constitutional: Reports: no symptoms HEENT: Repors: no symptoms Allergies: Coded Allergies: No Known Allergies (Unverified , 08/10/13) Objective Last 24 Hour Vital Signs Date Time Temp Pulse Resp B/P (MAP) Pulse Ox O2 Delivery O2 Flow Rate FiO2 02/04/18 09:00 Room Air 02/04/18 08:16 154/98 02/04/18 08:16 94 154/98 02/04/18 08:00 79 02/04/18 08:00 98.1 94 22 154/98 (116) 98 98.1 02/04/18 03:53 170/69 02/04/18 03:30 150/84 (106) 02/04/18 03:18 95 24 96 Room Air 21 02/04/18 03:18 21 02/04/18 03:10 95 20 94 Room Air 21 02/04/18 01:00 170/69 (102) 02/04/18 00:19 94 02/04/18 00:00 98.0 98 20 168/70 (102) 98 98.0 02/03/18 21:27 93 24 99 Room Air 21 02/03/18 21:15 21 02/03/18 21:15 87 20 Room Air 21 02/03/18 21:15 87 20 98 Room Air 21 02/03/18 21:00 Room Air 02/03/18 20:33 88 160/85 02/03/18 20:30 97.9 88 20 160/85 (110) 98 97.9 02/03/18 20:00 84 02/03/18 16:00 80 02/03/18 16:00 97.5 84 18 148/90 (109) 99 97.5 9/19/18 12:03 78 02/03/18 12:00 97.3 73 20 140/81 (100) 96 97.3 Intake and Output 02/03/18 02/04/18 19:00 07:00 Intake Total 120 ml Balance 120 ml Intake Oral 120 ml # Voids 1 4 General Appearance: WD/WN HEENT: normocephalic Respiratory/Chest: chest wall non-tender, lungs clear Breasts: no masses Cardiovascular: normal rate Abdomen: normal bowel sounds, soft, non tender Genitourinary: normal external genitalia Extremities: no cyanosis Current Medications Medications (Trade) Dose Ordered Sig/Yi Route PRN Reason Start Time Stop Time Status Last Admin Dose Admin Acetaminophen (Tylenol) 650 mg Q4H PRN ORAL FEVER 02/01/18 16:27 03/02/18 16:26 Acetaminophen/ Hydrocodone Bitart ([place] 5/325) 1 tab Q6H PRN ORAL Moderate Pain (Pain Scale 4-6) 02/01/18 16:29 02/07/18 16:28 02/03/18 11:49 Albuterol/ Ipratropium (Albuterol/ Ipratropium) 3 ml Q6HRT PRN HHN Shortness of Breath 02/03/18 01:00 02/08/18 00:59 02/04/18 03:06 Aspirin (ASA) 162 mg DAILY ORAL 02/02/18 09:00 03/03/18 08:59 02/04/18 08:16 Atorvastatin Calcium (Lipitor) 20 mg BEDTIME ORAL 02/03/18 21:00 03/05/18 20:59 02/03/18 20:33 Carvedilol (Coreg) 6.25 mg EVERY 12 HOURS ORAL 02/03/18 21:00 03/05/18 20:59 02/04/18 08:16 Diltiazem HCl (Cardizem) 10 mg Q1H PRN IV heart rate more than 120, 02/01/18 16:28 03/02/18 16:27 Enalaprilat (Vasotec) 2.5 mg Q6H PRN IV sbp more than 160 02/01/18 18:00 03/03/18 17:59 02/04/18 03:53 Furosemide (Lasix) 40 mg DAILY ORAL 02/04/18 09:00 03/06/18 08:59 02/04/18 08:15 Heparin Sodium (Porcine) (Heparin 5000 units/ml) 5,000 units EVERY 12 HOURS SUBQ 02/01/18 21:00 03/02/18 20:59 02/04/18 08:17 Ketorolac Tromethamine (Toradol 30mg) 15 mg Q6H PRN IV moderate pain ( 4-6) 02/01/18 18:00 02/06/18 17:59 Lorazepam (Ativan 2mg/ml 1ml) 1 mg Q4H PRN IM Agitation 02/03/18 15:45 02/10/18 15:44 02/04/18 05:26 Losartan Potassium (Cozaar) 25 mg DAILY ORAL 02/03/18 18:00 03/05/18 17:59 02/04/18 08:16 Morphine Sulfate (Morphine Sulfate) 2 mg Q4H PRN IVP severe Pain (Pain Scale 7-10) 02/01/18 16:29 02/07/18 16:28 02/04/18 08:18 Nitroglycerin (Ntg) 0.4 mg Q5MIN X 3 DOSES PRN SL Prn Chest Pain 02/01/18 16:30 03/02/18 14:42 Ondansetron HCl (Zofran) 4 mg Q6H PRN IVP Nausea & Vomiting 02/01/18 16:29 03/02/18 16:28 Polyethylene Glycol (Miralax) 17 gm DAILYPRN PRN ORAL Constipation 02/01/18 16:29 03/03/18 16:28 Quetiapine Fumarate (SEROquel) 25 mg Q6H PRN ORAL ANXIETY/AGITATION 02/01/18 17:15 03/03/18 17:14 02/02/18 05:01 Quetiapine Fumarate (SEROquel) 50 mg THREE TIMES A DAY ORAL 02/02/18 13:00 03/04/18 12:59 02/04/18 08:15 Temazepam (Restoril) 15 mg HSPRN PRN ORAL Insomnia 02/01/18 21:00 02/07/18 20:59 Rod Mancera MD Feb 04, 2018 10:38
[2018-02-04 12:00] VITALS: BP 149/90
--- NOTE | 2018-02-04 17:46 | Cardiology Progress Note ---
Assessment/Plan Assessment/Plan noted arm DVT the patient is restrained, otherwise she is very agitated and walks out of the floor her respiratory status is improved she is not a candidate for anticoagulation due to recent GI bleed, I believe it is better to discharge her she is better at home I had long discussion with other providers and with her I told him that they should comply with prescribed medications, and her promised to bring her to my office in one week. She should be discharged on b-blockers, arb and aspirin and furosemide Subjective Subjective the patient is laying down in restraint, both wrist confused denies chest pain she is confused Objective Last 24 Hour Vital Signs Date Time Temp Pulse Resp B/P (MAP) Pulse Ox O2 Delivery O2 Flow Rate FiO2 02/04/18 12:00 97.9 85 22 149/90 (109) 95 97.9 02/04/18 12:00 92 02/04/18 09:00 Room Air 02/04/18 08:16 154/98 02/04/18 08:16 94 154/98 02/04/18 08:00 79 02/04/18 08:00 98.1 94 22 154/98 (116) 98 98.1 02/04/18 03:53 170/69 02/04/18 03:30 150/84 (106) 02/04/18 03:18 95 24 96 Room Air 21 02/04/18 03:18 21 02/04/18 03:10 95 20 94 Room Air 21 02/04/18 01:00 170/69 (102) 02/04/18 00:19 94 02/04/18 00:00 98.0 98 20 168/70 (102) 98 98.0 02/03/18 21:27 93 24 99 Room Air 21 02/03/18 21:15 21 02/03/18 21:15 87 20 Room Air 21 02/03/18 21:15 87 20 98 Room Air 21 02/03/18 21:00 Room Air 02/03/18 20:33 88 160/85 02/03/18 20:30 97.9 88 20 160/85 (110) 98 97.9 02/03/18 20:00 84 General Appearance: agitated - confused EENT: PERRL/EOMI Neck: JVD Rhythm: NSR Cardiovascular: normal rate, gallop/S3 Respiratory/Chest: crackles/rales Abdomen: decreased bowel sounds Extremities: normal range of motion Intake and Output 02/03/18 02/04/18 19:00 07:00 Intake Total 120 ml Balance 120 ml Intake Oral 120 ml # Voids 1 4 Karol Oliver MD Feb 04, 2018 17:46
--- NOTE | 2018-02-05 13:58 | Discharge Summary ---
Discharge Summary Discharge Summary _ DATE OF ADMISSION: 01/31/2018 DATE OF DISCHARGE: 02/04/2018 CONSULTANTS: Dr. Karol Ward [facility]SE: Patient is an 82-year-old Burmese speaking female, who presented to ED with chief complaint of shortness of breath. Patient was admitted to [facility] on December 2017. She was diagnosed with acute [place]. She became short of breath, symptoms started on 01/31/2018. She also had several falls with contusion to the left hip area. She had pain to the left hip area without obvious bruising. She has medical history significant for type 2 diabetes mellitus, hypertension , sick sinus syndrome, hypercholesterolemia and recent non-ST elevated [place]. She was transported to [facility] for further evaluation. On evaluation at ED, vital signs were stable. Blood work did not show any leukocytosis, hemoglobin was 8.9, hematocrit was 26. Troponin was elevated to 0.457. BNP was elevated at 33,000. EKG showed paced rhythm. Chest x-ray revealed cardiomegaly with interstitial opacification/edema consistent with congestive heart failure and/or pulmonary edema. She was given nebulizer treatment and Lasix IV. X-ray of the pelvic area showed superior and inferior pubic rami fractures. Left femur x-ray was negative for fractures. A pelvic CT was then done and showed left sided pelvic fractures including the left pubic rami and iliac bone. She was admitted to [facility] for evaluation of non-ST elevated NY and pelvic fracture. She was seen by assistant elementary teacher. Upon review of records from [facility], patient has ischemic cardiomyopathy with ejection fraction of 23% with moderate mitral regurgitation and severe tricuspid regurgitation being noted with PA pressure in the 50s. She had severe coronary heart disease; she had drug eluding stent placed in the first obtuse marginal and left anterior descending artery. She also had significant right coronary artery disease. She has 2 pacemakers, one inserted on 1999 and another one on 2017 for sick sinus syndrome. She underwent evaluation by orthopedic surgeon. Patient had multiple pelvic fractures appear to be not clinically acute. Maybe old in nature and she had multiple other falls as well. Examination revealed no pain. No surgical intervention was warranted. She was advised weightbearing as tolerated. Patient was agitated and screaming, refusing to cooperate with care. Psychiatric evaluation was done. Patient was placed on restraints. She was given cocktail of Ativan, Haldol and Benadryl prn. She was given Seroquel. She had a venous duplex scan. Imaging showed acute thrombosis in the subclavian , axillary and brachial vein. There was acute thrombosis in the left basilar vein at the upper arm level. Anticoagulation not a good option due to patient' s dementia and high risk of falls. Full treatment was not carried out as patient left AMA. FINAL DIAGNOSES: Acute on chronic systolic congestive heart failure Non-ST elevated [place] Acute DVT of the left axillary vein Encephalopathy due to general medical condition Ischemic cardiomyopathy Delirium Psychosis Sick sinus syndrome status post pacemaker Hypercholesterolemia Pelvic fracture with history of multiple falls Diabetes mellitus type 2 Hypertension Coronary artery disease status post PCI of LAD and obtuse marginal in December 2015 with significant right coronary artery stenosis Possible GI bleed from recent hospitalization DISPOSITION: Patient left AMA I have been assigned to dictate discharge summary on this account, and I was not involved in the patient's management. Lacie Schulte NP Feb 05, 2018 13:58
--- NOTE | 2018-02-07 20:26 | Diagnostic Imaging Report ---
APPROVED REPORT CPT Code: 81143 Present Symptoms Comments: Swelling 2D Evaluation LEFT UPPER EXTREMITY: Venous imaging reveals acute thrombus in the subclavian, axillary and brachial veins. The remaining segments are within normal limits. There is no evidence of thrombus within the internal jugular, innominate, radial and ulnar veins. SUPERFICIAL VENOUS SYSTEM: Imaging reveals acute thrombus in the left basilic vein at upper arm level. Imaging also reveals patency of the left cephalic vein. Imaging also reveals a hematoma (3.5cm x 1.6cm) at the upper arm level. SOILA Moss was notified of abnormal results at 0945 hours.
== END 2018-02-04 12:29 | disposition left against medical advice (07) | DRG 280 ==
LOC: EMR 12:05 → EDBEDREQ 13:43 → EDBEDREQSVC 13:43 → EDBEDREQ 15:49 → 2W 16:12 → 2E 02-01 16:24
DX: I11.0 Hypertensive heart disease with heart failure (principal); I21.4 Non-ST elevation (NSTEMI) myocardial infarction; G93.40 Encephalopathy, unspecified; S32.592A Other specified fracture of left pubis, initial encounter for closed fracture; S32.392A Other fracture of left ilium, initial encounter for closed fracture; I82.A12 Acute embolism and thrombosis of left axillary vein; I50.23 Acute on chronic systolic (congestive) heart failure; E11.9 Type 2 diabetes mellitus without complications; Z95.0 Presence of cardiac pacemaker; W19.XXXA Unspecified fall, initial encounter; Z95.1 Presence of aortocoronary bypass graft; E78.00 Pure hypercholesterolemia, unspecified; I34.0 Nonrheumatic mitral (valve) insufficiency; I36.1 Nonrheumatic tricuspid (valve) insufficiency; I25.10 Atherosclerotic heart disease of native coronary artery without angina pectoris; Z95.5 Presence of coronary angioplasty implant and graft; F03.90 Unspecified dementia, unspecified severity, without behavioral disturbance, psychotic disturbance, mood disturbance, and anxiety; I25.5 Ischemic cardiomyopathy; F29 Unspecified psychosis not due to a substance or known physiological condition; Z79.84 Long term (current) use of oral hypoglycemic drugs; Z79.02 Long term (current) use of antithrombotics/antiplatelets; Z79.82 Long term (current) use of aspirin; Z91.81 History of falling; Z91.19 Patient's noncompliance with other medical treatment and regimen; R06.00 Dyspnea, unspecified
CPT/HCPCS: 36415; 71045; 72170; 72192; 80048; 80053; 80061; 82378; 82550; 82553; 82607; 82746; 83540; 83550; 83615; 83690; 83735; 83880; 84443; 84484; 85007; 85025; 85044; 85060; 85610; 85651; 85730; 86140; 93005; 93306; 93971; 94640; 94664; 96361; 96374; 96375; 99291; J2405; J7620

== ENCOUNTER 2018-02-16 08:55 | Inpatient (IN) | payer MEDICARE, OTHER ==
[2018-02-16] VITALS (7 sets, daily range): BP systolic 120–157; BP diastolic 59–90
[~2018-02-16] VITALS: Ht 167.6 cm; Wt 54.5 kg
[~2018-02-16 08:55] MED LIST changes: +ASPIRIN-LOW81 MG ORAL; +TENORMIN25 MG ORAL
[2018-02-16] MEDS ORDERED: JANUMET XR 50-1 EAC1 ORAL (10:27)
[2018-02-16] MEDS ORDERED: LOSARTAN POTASS25 MG ORAL (10:27)
[2018-02-16] MEDS ORDERED: VITAMIN D400 INTLU ORAL (10:27)
[2018-02-16] MEDS ORDERED: CLOPIDOGREL75 MG ORAL (10:27)
[2018-02-16] MEDS ORDERED: METOPROLOL SUCC50 MG ORAL (10:27)
[2018-02-16] MEDS ORDERED: TRAZODONE HCL150 MG ORAL (10:27)
[2018-02-16] MEDS ORDERED: CRESTOR10 M2 ORAL (10:27)
[2018-02-16] MEDS ORDERED: KLONOPIN0.5 MG ORAL (10:27)
[2018-02-16] MEDS ORDERED: FUROSEMIDE40 MG ORAL (10:27)
[2018-02-16] MEDS ORDERED: CATAPRES0.1 MG ORAL (10:27)
[2018-02-16] MEDS ORDERED: POTASSIUM CHLO10 ME3 ORAL (10:27)
[2018-02-16] MEDS ORDERED: Ketorolac 30mg Inj IV ONE (10:45)
[2018-02-16 11:00] LABS: APPEARANCE,URINE CLOUDY; BILIRUBIN, URINE NEGATIVE (NEGATIVE); COLOR,URINE PALE YELLOW; GLUCOSE, URINE (UA) NEGATIVE (NEGATIVE); KETONES,URINE NEGATIVE (NEGATIVE); LEUKOCYTE ESTERASE ,URINE 1+ (NEGATIVE); NITRITE,URINE POSITIVE (NEGATIVE); PH,URINE 5 (4.5-8.0); PROTEIN,URINE 1+ (NEGATIVE); UROBILINOGEN,URINE NORMAL MG/DL (0.0-1.0)
[2018-02-16 11:02] LABS: BASOPHILS % (AUTO) 0.4 % (0.0-2.0); EOSINOPHILS % (AUTO) 0.4 % (0.0-3.0); HEMATOCRIT 30.9 % (37.0-47.0); HEMOGLOBIN 9.5 G/DL (12.0-16.0); LYMPHOCYTES % (AUTO) 13.5 % (20.0-45.0); MEAN CORPUSCULAR VOLUME 93 FL (80-99); MONOCYTES % (AUTO) 7.1 % (1.0-10.0); NEUTROPHILS % (AUTO) 78.6 % (45.0-75.0); PLATELET COUNT 443 K/UL (150-450); RED BLOOD COUNT 3.34 M/UL (4.20-5.40); RED CELL DISTRIBUTION WIDTH 17.3 % (11.6-14.8); WHITE BLOOD COUNT 10.5 K/UL (4.8-10.8)
[2018-02-16 11:12] LABS: ANION GAP 10 mmol/L (5-15); BLOOD UREA NITROGEN 20 mg/dL (7-18); CALCIUM 8.9 MG/DL (8.5-10.1); CARBON DIOXIDE 26 MMOL/L (21-32); CHLORIDE 106 MMOL/L (98-107); CREATININE 1.1 MG/DL (0.55-1.30); POTASSIUM 4.4 MMOL/L (3.5-5.1); SODIUM 141 MMOL/L (136-145)
[2018-02-16 11:17] LABS: ALANINE AMINOTRANSFERASE 27 U/L (12-78); ALBUMIN 3.1 G/DL (3.4-5.0); ALKALINE PHOSPHATASE 69 U/L (46-116); ASPARTATE AMINO TRANSFERASE 27 U/L (15-37); BILIRUBIN,TOTAL 0.4 MG/DL (0.2-1.0)
--- NOTE | 2018-02-16 12:04 | Diagnostic Imaging Report ---
Indications: Reason For Exam: PAIN Technique: Spiral acquisitions obtained through the lumbar spine. Multiplanar reconstructions were generated. No IV contrast utilized. Total dose length product 485.71 mGycm. CTDIvol(s) 14.03 mGy. Dose reduction achieved using automated exposure control Comparison: Reference made to abdomen pelvis CT dated 08/27/2017 Findings: There is bilateral L4 spondylolysis. This results in grade 2 L4 on L5 spondylolisthesis. There is severe degenerative change at L4-5, with complete obliteration of the disc, significant degenerative remodeling, and considerable proliferative change posterior to the posterior margin of the L4 vertebral body. The appearance, however, is unchanged from the previous abdomen pelvis CT of August 2017 Bony alignment is normal at the other segments. The vertebral body heights are preserved. There is degenerative disc narrowing at T12-L1. The remaining lumbar disc spaces are preserved. There is [id number] apposition of the L2-3 and L3-4 spinous processes with some secondary degenerative change as a result. No acute fractures. No dislocations. At at L1-2, there is circumferential annular bulge which may result in minimal compromise of the right neural foramen. No significant spinal stenosis or left neural foraminal stenosis. At L2-3, there is bilateral facet arthrosis. There is mild circumferential annular bulge, which may impinge slightly upon the bilateral neural foramina. Desiccation spinal stenosis. At L3-4, no significant disc bulge or protrusion or spinal stenosis. There is bilateral facet arthrosis. At L4-5, the alignment abnormality results in significant kinking of the spinal canal. It is uncertain whether this results in significant impingement upon the thecal sac, but at its narrowest point the spinal canal measures approximately 9 mm minimum AP dimension. The alignment abnormality does result in at least moderate narrowing of the bilateral neural foramina. At L5-S1, there is minimal circumferential annular bulge which does not significant compromise the spinal canal or the neural foramina. The included extraspinal soft tissues demonstrate bilateral pleural effusions. There are extensive vascular calcifications there is a 1.1 cm exophytic lesion of the upper pole of the right kidney. Previous CT exam demonstrates a nonexophytic hypoattenuating area at the same location, current finding more prominent than previously.. Impression: No acute bony trauma. No significant interim change from prior abdomen pelvis CT of 08/27/2017 Bilateral L4 spondylolysis, L4 on L5 spondylolisthesis, spurs dedicated. Degenerative change, resulting in possible impingement upon the spinal canal and narrowing of the bilateral neural foramina. This is unchanged from earlier study of August 2017, however. Other less extensive multilevel degenerative changes, as detailed above. Possible left renal mass, new/increased from prior CT scan of 08/27/2017. Although likely a hyperattenuating proteinaceous cyst, solid neoplasm not excludable. Recommend ultrasound for better characterization Findings discussed by phone with Dr. Lui in the emergency room at the time of interpretation The CT scanner at [facility] is accredited by the [employer] and the scans are performed using protocols designed to limit radiation exposure to as low as reasonably achievable to attain images of sufficient resolution adequate for diagnostic evaluation.
--- NOTE | 2018-02-16 12:20 | Diagnostic Imaging Report ---
Indication: Right hip and leg pain, trauma Technique: Noncontrast spiral acquisitions obtained through the pelvis. Multiplanar reconstructions generated. Total dose length product 361.92 mGycm. CTDIvol(s) 11.52 mGy. Dose reduction achieved using automated exposure control Comparison: 01/31/2018 Findings: There is a fracture of the right femoral head neck junction. This is comminuted. There is upwardly displaced by about one half bone width, slightly posteriorly angulated, anteriorly displaced by about one half bone width. There is significant unusual calcific densities are seen posterior to the left acetabulum, posterior to the left greater trochanter, lateral to the right ischium, and medial to the proximal femur. These are not evident on the previous exam. There is mild swelling of the adjacent musculature, but no definite soft tissue hematoma is demonstrated. There is mild edema of the subcutaneous fat. Fracture deformity of the right inferior and superior pubic rami are again demonstrated, with some callus formation about the inferior pubic ramus fracture that was not evident previously, otherwise unchanged in appearance there is also fracture deformity of the posterior iliac bone, with evidence of some healing. Previously demonstrated right inguinal no longer contains bowel, still contains a small amount of fat. Previously demonstrated left inguinal hernia is still present, but appears to contain less bowel than the prior study. Degenerative changes of the lumbosacral junction are again noted. Impression: Comminuted fracture of the subcapital right femoral neck, as described Unusual calcific/ossific densities about the right hip joint, as described, not evident on prior study of 2 1/2 weeks earlier. This could be rapidly progressive heterotopic ossification, given recent trauma to this area, but development over 16 days would be very unusual. Significance/etiology otherwise uncertain Subacute left superior and inferior pubic fracture, left posterior iliac bone fracture again demonstrated, with evidence of a slight degree of healing of the inferior pubic ramus in the interim. Previously demonstrated right inguinal hernia no longer contains bowel. Previously demonstrated left inguinal hernia persists, appears smaller than on the previous study. Generalized mild soft tissue edema noted Findings discussed by phone with Dr. Lui in the emergency room at the time of interpretation The CT scanner at [facility] is accredited by the [employer] and the scans are performed using protocols designed to limit radiation exposure to as low as reasonably achievable to attain images of sufficient resolution adequate for diagnostic evaluation.
[2018-02-16] MEDS ORDERED: Morphine Sulfate 2mg/ml Inj IVP ONE (12:30)
--- NOTE | 2018-02-16 13:00 | Emergency Room Report ---
History of Present Illness General Chief Complaint: Pain Source: Patient Present Illness HPI This patient states that she has had multiple falls over the past 3 weeks. She states that she has generalized weakness and pain in her right hip. She states that she has been unable to walk and keeps falling at home. She complains of pain in her right hip and inability to walk for the past week. She states that she has fallen down multiple times. She lives with her elderly who has very severe edema and cannot walk and she cares for him. Allergies: Coded Allergies: No Known Allergies (Unverified , 08/10/13) Patient History Past Medical History: see triage record, DM, HTN, asthma, dementia Past Surgical History: pacemaker Social History: Denies: smoking, alcohol use, drug use Now: No Reviewed Nursing Documentation: PMH: Agreed; PSxH: Agreed Nursing Documentation-PMH Hx Cardiac Problems: Yes Hx Hypertension: Yes Hx Pacemaker: Yes - left chest pacemaker Hx Asthma: Yes Hx Diabetes: Yes Hx Cancer: No Hx Gastrointestinal Problems: No Hx Neurological Problems: Yes Hx Dementia: Yes Review of Systems All Other Systems: negative except mentioned in HPI Physical Exam Vital Signs Date Time Temp Pulse Resp B/P (MAP) Pulse Ox O2 Delivery O2 Flow Rate FiO2 02/16/18 08:50 83 18 157/73 100 Room Air 02/16/18 09:02 98.0 98.0 02/16/18 10:35 1.0 Sp02 EP Interpretation: reviewed, normal General Appearance: no apparent distress, alert, GCS 15, non-toxic Head: normocephalic, atraumatic Eyes: bilateral eye normal inspection, bilateral eye PERRL ENT: hearing grossly normal, normal pharynx, no angioedema, normal voice Neck: full range of motion, supple/symm/no masses Respiratory: chest non-tender, lungs clear, normal breath sounds, no respiratory distress, no retraction, no accessory muscle use, speaking full sentences Cardiovascular #1: regular rate, rhythm, no edema Gastrointestinal: normal bowel sounds, non tender, soft, non-distended, no guarding, no rebound Rectal: deferred Musculoskeletal: other - Unable to ambulate. Severe pain with palpation and ROM of R. hip. Neurologic: alert, oriented x3, responsive, motor strength/tone normal, sensory intact, speech normal Psychiatric: judgement/insight normal, memory normal, mood/affect normal, no suicidal/homicidal ideation Skin: normal color, no rash, warm/dry, well hydrated Medical Decision Making Diagnostic Impression: Primary Impression: Hip fracture, right ER Course This patient has a right hip fracture. She will need surgical repair. She is admitted for surgical repair. She will also need a social work and manager case management evaluation. She and her elderly reside home alone together and are not able to safely go about their activities of daily living. Laboratory Tests Test 02/16/18 10:45 White Blood Count 10.5 K/UL (4.8-10.8) Red Blood Count 3.34 M/UL (4.20-5.40) L Hemoglobin 9.5 G/DL (12.0-16.0) L Hematocrit 30.9 % (37.0-47.0) L Mean Corpuscular Volume 93 FL (80-99) Mean Corpuscular Hemoglobin 28.6 PG (27.0-31.0) Mean Corpuscular Hemoglobin Concent 30.8 G/DL (32.0-36.0) L Red Cell Distribution Width 17.3 % (11.6-14.8) H Platelet Count 443 K/UL (150-450) Mean Platelet Volume 6.9 FL (6.5-10.1) Neutrophils (%) (Auto) 78.6 % (45.0-75.0) H Lymphocytes (%) (Auto) 13.5 % (20.0-45.0) L Monocytes (%) (Auto) 7.1 % (1.0-10.0) Eosinophils (%) (Auto) 0.4 % (0.0-3.0) Basophils (%) (Auto) 0.4 % (0.0-2.0) Urine Color Pale yellow Urine Appearance Cloudy Urine pH 5 (4.5-8.0) Urine Specific [place] 1.015 (1.005-1.035) Urine Protein 1+ (NEGATIVE) H Urine Glucose (UA) Negative (NEGATIVE) Urine Ketones Negative (NEGATIVE) Urine Blood 1+ (NEGATIVE) H Urine Nitrite Positive (NEGATIVE) H Urine Bilirubin Negative (NEGATIVE) Urine Urobilinogen Normal MG/DL (0.0-1.0) Urine Leukocyte Esterase 1+ (NEGATIVE) H Urine RBC 0-2 /HPF (0 - 2) Urine WBC 5-10 /HPF (0 - 2) H Urine Squamous Epithelial Cells Few /LPF (NONE/OCC) Urine Bacteria Many /HPF (NONE) H Sodium Level 141 MMOL/L (136-145) Potassium Level 4.4 MMOL/L (3.5-5.1) Chloride Level 106 MMOL/L (98-107) Carbon Dioxide Level 26 MMOL/L (21-32) Anion Gap 10 mmol/L (5-15) Blood Urea Nitrogen 20 mg/dL (7-18) H Creatinine 1.1 MG/DL (0.55-1.30) Estimate Glomerular Filtration Rate mL/min (>60) Glucose Level 89 MG/DL (74-106) Calcium Level 8.9 MG/DL (8.5-10.1) Total Bilirubin 0.4 MG/DL (0.2-1.0) Aspartate Amino Transferase (AST) 27 U/L (15-37) Alanine Aminotransferase (ALT) 27 U/L (12-78) Alkaline Phosphatase 69 U/L (46-116) Total Protein 6.3 G/DL (6.4-8.2) L Albumin 3.1 G/DL (3.4-5.0) L Globulin 3.2 g/dL Albumin/Globulin Ratio 1.0 (1.0-2.7) CT/MRI/US Diagnostic Results CT/MRI/US Diagnostic Results : Imaging Test Ordered: CT abd/pelvis, CT L-spine Impression Impression: No acute bony trauma. No significant interim change from prior abdomen pelvis CT of 08/27/2017 Bilateral L4 spondylolysis, L4 on L5 spondylolisthesis, spurs dedicated. Degenerative change, resulting in possible impingement upon the spinal canal and narrowing of the bilateral neural foramina. This is unchanged from earlier study of August 2017, however. Other less extensive multilevel degenerative changes, as detailed above. Possible left renal mass, new/increased from prior CT scan of 08/27/2017. Although likely a hyperattenuating proteinaceous cyst, solid neoplasm not excludable. Recommend ultrasound for better characterization Findings discussed by phone with Dr. Lui in the emergency room at the time of interpretation Impression: Comminuted fracture of the subcapital right femoral neck, as described Unusual calcific/ossific densities about the right hip joint, as described, not evident on prior study of 2 1/2 weeks earlier. This could be rapidly progressive heterotopic ossification, given recent trauma to this area, but development over 16 days would be very unusual. Significance/etiology otherwise uncertain Subacute left superior and inferior pubic fracture, left posterior iliac bone fracture again demonstrated, with evidence of a slight degree of healing of the inferior pubic ramus in the interim. Previously demonstrated right inguinal hernia no longer contains bowel. Previously demonstrated left inguinal hernia persists, appears smaller than on the previous study. Generalized mild soft tissue edema noted Findings discussed by phone with Dr. Lui in the emergency room at the time of interpretation Last Vital Signs Date Time Temp Pulse Resp B/P (MAP) Pulse Ox O2 Delivery O2 Flow Rate FiO2 02/16/18 12:33 98.0 02/16/18 10:35 74 18 140/90 100 Nasal Cannula 1.0 Disposition: ADMITTED INPATIENT Condition: Serious Referrals: NON PHYSICIAN (PCP) Anne Marie Rivera DO Feb 16, 2018 13:00
[2018-02-16] MEDS ORDERED: Mylanta II UD 30ml ORAL PRN (14:23)
[2018-02-16] MEDS ORDERED: Morphine Sulfate 2mg/ml Inj IVP PRN (14:30)
[2018-02-16] MEDS ORDERED: Miralax 17gm pkt ORAL PRN (14:30)
--- NOTE | 2018-02-16 14:30 | Diagnostic Imaging Report ---
Indication: Reason For Exam: PAIN Technique: 2 views of the right hip and one view of the pelvis Comparison: 01/31/2018 Findings: Interim development of comminuted subcapital right femoral neck fracture. Unusual soft tissue calcifications are seen medial to the greater trochanter. Complex left superior and inferior pubic ramus fracture also demonstrated. Left iliac bone fracture demonstrated on recent CT scan is not clearly evident on plain radiograph. Impression: Positive for right hip fracture, as described. Findings previously discussed by phone with Dr. Lui in the emergency room
[2018-02-16] MEDS: D5 1/2NS 1,000 ML IV SCH (15:36)
[2018-02-16] MEDS: clonazePAM 0.5mg tab ORAL SCH (17:43)
--- NOTE | 2018-02-16 18:41 | History & Physical ---
History and Physical History & Physicial Dictated for Int Med Dr Berkowitz no. [id number]. Aquilino Matthews MD Feb 16, 2018 18:41
[2018-02-16] MEDS: Haloperidol 5mg/ml Inj IM PRN (18:42)
[2018-02-16] MEDS: Norco 5mg/325mg tab ORAL PRN (18:52)
[2018-02-16] MEDS: LORazepam Inj 2mg/ml 1ml IV PRN (20:22)
[2018-02-16] MEDS: TraZODone 50mg tab ORAL SCH (20:58)
[2018-02-16] MEDS: Heparin 5000 units/ml inj SUBQ SCH (21:00)
[2018-02-16] MEDS: Zolpidem 5mg tab ORAL PRN (22:09)
[2018-02-17] VITALS: BP 130/62
[2018-02-17] MEDS: clonazePAM 0.5mg tab ORAL SCH ×4 (00:05→17:02)
--- NOTE | 2018-02-17 02:00 | History and Physical Report ---
DATE OF ADMISSION: 02/16/2018 CHIEF COMPLAINT: The patient is an 82-year-old Serbian-speaking female, presents with chief complaint of right hip pain. HISTORY OF PRESENT ILLNESS: The patient was admitted to [facility] from 01/31/2018 to 02/06/2018. The patient was status post non-ST elevated myocardial infarction. The patient also had congestive heart failure. Please see history and physical and discharge summary dictated at that time. The patient has been falling since she returned home. The patient presented to [place] emergency room after being found on the floor. The patient was complaining of right hip pain. A CT scan of the right hip revealed comminuted fracture of the right femoral neck. The patient is admitted for right femoral neck fracture. PAST MEDICAL HISTORY: Significant for: 1. Diabetes, type 2. 2. Hypertension. 3. Sick sinus syndrome. 4. Hypercholesterolemia. 5. Non ST elevated myocardial infarction as above. PAST SURGICAL HISTORY: Significant for: 1. Coronary artery bypass graft in 2016. 2. Pacemaker generator change in 2016. 3. History of elbow debridement. 4. Pacemaker implantation in 2013. CURRENT MEDICATIONS: 1. Aspirin 81 mg p.o. daily. 2. Atenolol 25 mg p.o. daily. 3. Klonopin 0.5 mg p.o. q.6 h. p.r.n. 4. Clonidine 0.1 mg p.o. q.8 h. 5. Clopidogrel 75 mg p.o. daily. 6. Dicyclomine 10 mg p.o. four times daily. 7. Pepcid 20 mg p.o. daily. 8. Furosemide 40 mg p.o. daily. 9. [place] 5/325 mg one tablet p.o. q.6 h. 10. Losartan 25 mg p.o. daily. 11. Metoprolol 50 mg p.o. daily. 12. Potassium chloride 10 mEq p.o. daily. 13. Crestor 10 mg p.o. daily. 14. Janumet one tablet p.o. daily. 15. Trazodone 50 mg p.o. at bedtime. 16. Vitamin D 400 mg one tablet p.o. daily. ALLERGIES: No known drug allergies. SOCIAL HISTORY: The patient is and lives with her . The patient denies tobacco or alcohol use. REVIEW OF SYSTEMS: CONSTITUTIONAL: The patient denies weight loss or weight gain. The patient denies fevers or chills. HEENT: The patient denies ear or throat pain. The patient denies headache. CARDIOVASCULAR: The patient denies palpitations or chest pain. CHEST: The patient denies wheezing or shortness of breath. ABDOMINAL: The patient denies nausea, vomiting, diarrhea, or constipation. GENITOURINARY: The patient denies dysuria or increased frequency of urination. NEUROMUSCULAR: The patient complains of right hip pain as above. The patient denies seizures or generalized weakness. PHYSICAL EXAMINATION: VITAL SIGNS: Temperature 98.0 degrees, respirations 18, pulse 73, and blood pressure 142/80. GENERAL: The patient is well-developed and well-nourished thin-appearing white female, in no apparent distress. HEENT: Eyes, pupils are equal and responsive to light and accommodation. Extraocular movements are intact. NECK: Supple without lymphadenopathy. CHEST: Lungs are clear to auscultation bilaterally without wheezes or rales. CARDIOVASCULAR: Regular rhythm and rate. S1 and S2 are normal without murmurs, rubs, or gallops. ABDOMEN: Soft, nontender, and nondistended. Positive bowel sounds. No evidence of hepatosplenomegaly. Currently, no rebound or guarding noted. EXTREMITIES: Negative for clubbing, cyanosis, or edema. RECTAL/GENITAL: Refused. NEUROLOGIC: Cranial nerves II through XII are grossly intact without focal deficits. Motor strength is 5/5 bilaterally. Deep tendon reflexes are 2+ plantar. LABORATORY STUDIES: WBC 10.5, hemoglobin 9.5, hematocrit 30.9, and platelets 442,000. Sodium 141, potassium 4.4, chloride 106, CO2 26, BUN 20, creatinine 1.1, and glucose 89. CT of the pelvis revealed a comminuted fracture of the right femoral neck. ASSESSMENT: This is an 82-year-old white female. 1. Comminuted fracture of the right femoral neck. 2. Coronary artery disease. 3. Hypertension. 4. Sick sinus syndrome. 5. Hypercholesterolemia. 6. Diabetes, type 2. 7. Pacemaker. TREATMENT: 1. Right femoral neck fracture. An Orthopedic consultation has been obtained with Dr. Shen Lopez. The patient will require surgery. We will follow recommendations of Orthopedic Surgery. 2. Coronary artery disease. A Cardiology consultation has been obtained with Dr. Oliver. The patient is to follow as an outpatient by Dr. Oliver. 3. Diabetes type 2. A regular insulin sliding scale has been instituted. 4. Hypertension. Continue clonidine, metoprolol, and losartan as above. 5. Sick sinus syndrome. 6. Hypercholesterolemia. The patient is status post pacemaker implantation. 7. Hypercholesterolemia. Continue Crestor as above. 8. Pacemaker in situ. Aquilino Matthews M.D. DR: SADIE JOB#: [id number] CC:
[2018-02-17 04:00] VITALS: BP 113/61
[2018-02-17] MEDS: Haloperidol 5mg/ml Inj IM PRN (04:36)
[2018-02-17] MEDS: LORazepam Inj 2mg/ml 1ml IV PRN (06:22)
[2018-02-17 07:43] LABS: BASOPHILS % (AUTO) 0.3 % (0.0-2.0); EOSINOPHILS % (AUTO) 0.6 % (0.0-3.0); HEMATOCRIT 32.7 % (37.0-47.0); LYMPHOCYTES % (AUTO) 20.6 % (20.0-45.0); MEAN CORPUSCULAR VOLUME 93 FL (80-99); MONOCYTES % (AUTO) 6.5 % (1.0-10.0); PLATELET COUNT 475 K/UL (150-450); RED CELL DISTRIBUTION WIDTH 17.7 % (11.6-14.8); WHITE BLOOD COUNT 9.5 K/UL (4.8-10.8)
[2018-02-17 08:00] VITALS: BP 116/60
--- NOTE | 2018-02-17 08:16 | Consultation ---
History of Present Illness General Date patient seen: Feb 17, 2018 Present Illness Allergies: Coded Allergies: No Known Allergies (Unverified , 08/10/13) Medication History Scheduled Amoxicillin/Potassium Clav 875-125* (Augmentin 875-125 Tablet*), 1 TAB ORAL TWICE A DAY Aspirin (Aspirin EC), 81 MG ORAL DAILY, (Reported) Atenolol (Tenormin), 25 MG ORAL DAILY, (Reported) Clonazepam* (Klonopin*), 0.5 MG ORAL Q6H, (Reported) Clonidine Hcl* (Catapres*), 0.1 MG ORAL EVERY 8 HOURS, (Reported) Clopidogrel* (Clopidogrel*), 75 MG ORAL DAILY, (Reported) Dicyclomine Hcl* (Dicyclomine Hcl*), 10 MG PO QID Famotidine (Pepcid), 20 MG ORAL BEDTIME Furosemide* (Lasix*), 40 MG ORAL DAILY, (Reported) Losartan Potassium* (Losartan Potassium*), 25 MG ORAL DAILY, (Reported) Metoprolol Succinate* (Metoprolol Succinate*), 50 MG ORAL DAILY, (Reported) No Known Medications* (NKM - No Known Medications*), 0 ., (Reported) Potassium Chloride (Potassium Chloride), 10 MEQ ORAL DAILY, (Reported) Rosuvastatin Calcium* (Crestor*), 10 MG ORAL DAILY, (Reported) Sitagliptin Phos/Metformin Hcl (Janumet Xr 50-1,000 Mg Tablet), 1 TAB ORAL DAILY , (Reported) Trazodone* (Trazodone*), 50 MG ORAL BEDTIME, (Reported) Vitamin D (Vitamin D3), 5,000 UNITS ORAL DAILY, (Reported) Scheduled PRN Hydrocodone Bit/Acetaminophen 5-325* ([place] 5-325*), 1 TAB ORAL Q6H PRN for For Pain Miscellaneous Medications Unable to Obtain Medications (Unable To Obtain Meds), (Reported) Patient History Healthcare decision maker Resuscitation status Full Code Advanced Directive on File Physical Exam Last 24 Hour Vital Signs Date Time Temp Pulse Resp B/P (MAP) Pulse Ox O2 Delivery O2 Flow Rate FiO2 02/17/18 04:00 98.4 75 18 113/61 (78) 95 98.4 02/17/18 00:00 98.2 87 18 130/62 (84) 99 98.2 02/16/18 21:00 Room Air 02/16/18 20:00 99.3 81 19 142/84 (103) 97 99.3 02/16/18 18:52 98.1 02/16/18 18:36 98.1 77 18 148/60 (89) 98 98.1 02/16/18 15:46 Room Air 02/16/18 15:40 97.8 77 18 138/78 (98) 95 97.8 02/16/18 15:15 98.1 73 16 144/88 97 Room Air 02/16/18 15:14 98.1 73 18 142/88 97 Room Air 98.1 02/16/18 13:03 98.0 02/16/18 12:33 98.0 02/16/18 12:00 98.2 80 18 120/59 97 Room Air 98.2 02/16/18 11:24 98.0 02/16/18 10:54 98.0 02/16/18 10:35 97.9 74 18 140/90 100 Nasal Cannula 1.0 97.9 02/16/18 09:02 98.0 18 157/73 100 Room Air 98.0 02/16/18 08:50 83 18 157/73 100 Room Air Intake and Output 02/16/18 02/17/18 19:00 07:00 Intake Total 50 ml 250 ml Balance 50 ml 250 ml Intake Oral 0 ml IV Total 50 ml 250 ml Laboratory Tests Test 02/16/18 10:45 02/17/18 06:10 White Blood Count 10.5 K/UL (4.8-10.8) 9.5 K/UL (4.8-10.8) Red Blood Count 3.34 M/UL (4.20-5.40) L 3.50 M/UL (4.20-5.40) L Hemoglobin 9.5 G/DL (12.0-16.0) L 10.0 G/DL (12.0-16.0) L Hematocrit 30.9 % (37.0-47.0) L 32.7 % (37.0-47.0) L Mean Corpuscular Volume 93 FL (80-99) 93 FL (80-99) Mean Corpuscular Hemoglobin 28.6 PG (27.0-31.0) 28.5 PG (27.0-31.0) Mean Corpuscular Hemoglobin Concent 30.8 G/DL (32.0-36.0) L 30.5 G/DL (32.0-36.0) L Red Cell Distribution Width 17.3 % (11.6-14.8) H 17.7 % (11.6-14.8) H Platelet Count 443 K/UL (150-450) 475 K/UL (150-450) H Mean Platelet Volume 6.9 FL (6.5-10.1) 6.7 FL (6.5-10.1) Neutrophils (%) (Auto) 78.6 % (45.0-75.0) H 72.0 % (45.0-75.0) Lymphocytes (%) (Auto) 13.5 % (20.0-45.0) L 20.6 % (20.0-45.0) Monocytes (%) (Auto) 7.1 % (1.0-10.0) 6.5 % (1.0-10.0) Eosinophils (%) (Auto) 0.4 % (0.0-3.0) 0.6 % (0.0-3.0) Basophils (%) (Auto) 0.4 % (0.0-2.0) 0.3 % (0.0-2.0) Urine Color Pale yellow Urine Appearance Cloudy Urine pH 5 (4.5-8.0) Urine Specific [place] 1.015 (1.005-1.035) Urine Protein 1+ (NEGATIVE) H Urine Glucose (UA) Negative (NEGATIVE) Urine Ketones Negative (NEGATIVE) Urine Blood 1+ (NEGATIVE) H Urine Nitrite Positive (NEGATIVE) H Urine Bilirubin Negative (NEGATIVE) Urine Urobilinogen Normal MG/DL (0.0-1.0) Urine Leukocyte Esterase 1+ (NEGATIVE) H Urine RBC 0-2 /HPF (0 - 2) Urine WBC 5-10 /HPF (0 - 2) H Urine Squamous Epithelial Cells Few /LPF (NONE/OCC) Urine Bacteria Many /HPF (NONE) H Sodium Level 141 MMOL/L (136-145) Pending Potassium Level 4.4 MMOL/L (3.5-5.1) Pending Chloride Level 106 MMOL/L (98-107) Pending Carbon Dioxide Level 26 MMOL/L (21-32) Pending Anion Gap 10 mmol/L (5-15) Blood Urea Nitrogen 20 mg/dL (7-18) H Pending Creatinine 1.1 MG/DL (0.55-1.30) Pending Estimat Glomerular Filtration Rate mL/min (>60) Pending Glucose Level 89 MG/DL (74-106) Pending Calcium Level 8.9 MG/DL (8.5-10.1) Pending Total Bilirubin 0.4 MG/DL (0.2-1.0) Pending Aspartate Amino Transf (AST/SGOT) 27 U/L (15-37) Pending Alanine Aminotransferase (ALT/SGPT) 27 U/L (12-78) Pending Alkaline Phosphatase 69 U/L (46-116) Pending Total Protein 6.3 G/DL (6.4-8.2) L Pending Albumin 3.1 G/DL (3.4-5.0) L Pending Globulin 3.2 g/dL Pending Albumin/Globulin Ratio 1.0 (1.0-2.7) Thyroid Stimulating Hormone (TSH) Pending Height (Feet): 5 Height (Inches): 6.00 Weight (Pounds): 120 Medications Current Medications Medications (Trade) Dose Ordered Sig/Yi Route PRN Reason Start Time Stop Time Status Last Admin Dose Admin Acetaminophen (Tylenol) 650 mg Q4H PRN ORAL fever 02/16/18 14:30 03/18/18 14:29 Acetaminophen/ Hydrocodone Bitart ([place] 5/325) 1 tab Q6H PRN ORAL For PAIN 1-3 02/16/18 14:30 02/23/18 14:29 02/16/18 18:52 Al Hydroxide/Mg Hydroxide ([place] II) 30 ml Q6H PRN ORAL dyspepsia 02/16/18 14:23 03/18/18 14:22 Atenolol (Tenormin) 25 mg DAILY ORAL 02/17/18 09:00 03/19/18 08:59 Clonazepam (KlonoPIN) 0.5 mg Q6HR ORAL 02/16/18 18:00 02/23/18 17:59 02/17/18 05:47 Dextrose (Dextrose 50%) 25 ml Q30M PRN IV Hypoglycemia 02/16/18 14:30 03/18/18 14:25 Dextrose (Dextrose 50%) 50 ml Q30M PRN IV hypoglycemia 02/16/18 14:30 03/18/18 14:29 Dextrose/Sodium Chloride 1,000 ml @ 50 mls/hr Q20H IV 02/16/18 14:22 03/18/18 14:21 02/16/18 15:36 Haloperidol Lactate (Haldol) 5 mg Q4H PRN IM Agitation 02/16/18 18:45 03/18/18 18:44 02/17/18 04:36 Heparin Sodium (Porcine) (Heparin 5000 units/ml) 5,000 units EVERY 12 HOURS SUBQ 02/16/18 21:00 03/18/18 20:59 02/16/18 21:00 Lorazepam (Ativan 2mg/ml 1ml) 0.5 mg Q4H PRN IV For Anxiety 02/16/18 14:30 02/23/18 14:29 02/17/18 06:22 Losartan Potassium (Cozaar) 25 mg DAILY ORAL 02/17/18 09:00 03/19/18 08:59 Morphine Sulfate (Morphine Sulfate) 2 mg Q4H PRN IVP For Pain 4-6 02/16/18 14:30 02/23/18 14:29 Morphine Sulfate (Morphine Sulfate) 4 mg Q4H PRN IVP For Pain 7-10 02/16/18 14:30 02/23/18 14:29 Ondansetron HCl (Zofran) 4 mg Q6H PRN IVP Nausea & Vomiting 02/16/18 14:30 03/18/18 14:29 Polyethylene Glycol (Miralax) 17 gm HSPRN PRN ORAL Constipation 02/16/18 14:30 03/18/18 14:29 Quetiapine Fumarate (SEROquel) 25 mg QHS ORAL 02/17/18 00:30 03/19/18 00:29 02/17/18 00:34 Trazodone HCl (Desyrel) 50 mg BEDTIME ORAL 02/16/18 21:00 03/18/18 20:59 02/16/18 20:58 Zolpidem Tartrate (Ambien) 5 mg HSPRN PRN ORAL Insomnia 02/16/18 14:30 02/23/18 14:29 02/16/18 22:09 Assessment/Plan Assessment/Plan (1) Right hip fracture (2) Right hip pain (3) S/p fall seen dictated. Efren Beltran Feb 17, 2018 08:16
[2018-02-17 08:22] LABS: ALANINE AMINOTRANSFERASE 24 U/L (12-78); ALBUMIN 2.9 G/DL (3.4-5.0); ALBUMIN/GLOBULIN RATIO 0.9 (1.0-2.7); ALKALINE PHOSPHATASE 55 U/L (46-116); ANION GAP 10 mmol/L (5-15); ASPARTATE AMINO TRANSFERASE 29 U/L (15-37); BILIRUBIN,TOTAL 0.6 MG/DL (0.2-1.0); BLOOD UREA NITROGEN 20 mg/dL (7-18); CALCIUM 8.8 MG/DL (8.5-10.1); CARBON DIOXIDE 26 MMOL/L (21-32); CHLORIDE 107 MMOL/L (98-107); POTASSIUM 4.2 MMOL/L (3.5-5.1); SODIUM 143 MMOL/L (136-145)
[2018-02-17] MEDS: Atenolol 25mg tab ORAL SCH (08:41)
[2018-02-17] MEDS: D5 1/2NS 1,000 ML IV SCH ×2 (08:42→22:07)
[2018-02-17] MEDS: Losartan 25mg tab ORAL SCH (08:42)
[2018-02-17] MEDS: Heparin 5000 units/ml inj SUBQ SCH ×2 (08:46→20:48)
[2018-02-17] MEDS: Morphine Sulfate 4mg/ml Inj (IV USE ONLY) IVP PRN ×2 (09:38→15:19)
[2018-02-17 12:07] VITALS: BP 126/85
--- NOTE | 2018-02-17 12:37 | Internal Med Progress Note ---
Subjective Date of Service: Feb 17, 2018 Physician Name Aquilino Matthews Attending Physician Carlos Alberto Berkowitz MD Current Medications Medications (Trade) Dose Ordered Sig/Yi Route PRN Reason Start Time Stop Time Status Last Admin Dose Admin Acetaminophen (Tylenol) 650 mg Q4H PRN ORAL fever 02/16/18 14:30 03/18/18 14:29 Acetaminophen/ Hydrocodone Bitart ([place] 5/325) 1 tab Q6H PRN ORAL For PAIN 1-3 02/16/18 14:30 02/23/18 14:29 02/16/18 18:52 Al Hydroxide/Mg Hydroxide (Mylanta II) 30 ml Q6H PRN ORAL dyspepsia 02/16/18 14:23 03/18/18 14:22 Atenolol (Tenormin) 25 mg DAILY ORAL 02/17/18 09:00 03/19/18 08:59 02/17/18 08:41 Clonazepam (KlonoPIN) 0.5 mg Q6HR ORAL 02/16/18 18:00 02/23/18 17:59 02/17/18 12:24 Dextrose (Dextrose 50%) 25 ml Q30M PRN IV Hypoglycemia 02/16/18 14:30 03/18/18 14:25 Dextrose (Dextrose 50%) 50 ml Q30M PRN IV hypoglycemia 02/16/18 14:30 03/18/18 14:29 Dextrose/Sodium Chloride 1,000 ml @ 50 mls/hr Q20H IV 02/16/18 14:22 03/18/18 14:21 02/17/18 08:42 Haloperidol Lactate (Haldol) 5 mg Q4H PRN IM Agitation 02/16/18 18:45 03/18/18 18:44 02/17/18 04:36 Heparin Sodium (Porcine) (Heparin 5000 units/ml) 5,000 units EVERY 12 HOURS SUBQ 02/16/18 21:00 03/18/18 20:59 02/17/18 08:46 Lorazepam (Ativan 2mg/ml 1ml) 0.5 mg Q4H PRN IV For Anxiety 02/16/18 14:30 02/23/18 14:29 02/17/18 06:22 Losartan Potassium (Cozaar) 25 mg DAILY ORAL 02/17/18 09:00 03/19/18 08:59 02/17/18 08:42 Morphine Sulfate (Morphine Sulfate) 2 mg Q4H PRN IVP For Pain 4-6 02/16/18 14:30 02/23/18 14:29 Morphine Sulfate (Morphine Sulfate) 4 mg Q4H PRN IVP For Pain 7-10 02/16/18 14:30 02/23/18 14:29 02/17/18 09:38 Ondansetron HCl (Zofran) 4 mg Q6H PRN IVP Nausea & Vomiting 02/16/18 14:30 03/18/18 14:29 Polyethylene Glycol (Miralax) 17 gm HSPRN PRN ORAL Constipation 02/16/18 14:30 03/18/18 14:29 Quetiapine Fumarate (SEROquel) 25 mg QHS ORAL 02/17/18 00:30 03/19/18 00:29 02/17/18 00:34 Trazodone HCl (Desyrel) 50 mg BEDTIME ORAL 02/16/18 21:00 03/18/18 20:59 02/16/18 20:58 Zolpidem Tartrate (Ambien) 5 mg HSPRN PRN ORAL Insomnia 02/16/18 14:30 02/23/18 14:29 02/16/18 22:09 Allergies: Coded Allergies: No Known Allergies (Unverified , 08/10/13) ROS Limited/Unobtainable: Yes Subjective 82 YO F admitted with right hip pain; S/P fall. Now right femoral neck fracture. Cover for Int Aakash-Dr Berkowitz Objective Last Vital Signs Date Time Temp Pulse Resp B/P (MAP) Pulse Ox O2 Delivery O2 Flow Rate FiO2 02/17/18 12:07 97.7 69 18 126/85 (99) 99 97.7 02/17/18 09:00 Room Air 02/16/18 10:35 1.0 Laboratory Tests Test 02/17/18 06:10 White Blood Count 9.5 K/UL (4.8-10.8) Red Blood Count 3.50 M/UL (4.20-5.40) L Hemoglobin 10.0 G/DL (12.0-16.0) L Hematocrit 32.7 % (37.0-47.0) L Mean Corpuscular Volume 93 FL (80-99) Mean Corpuscular Hemoglobin 28.5 PG (27.0-31.0) Mean Corpuscular Hemoglobin Concent 30.5 G/DL (32.0-36.0) L Red Cell Distribution Width 17.7 % (11.6-14.8) H Platelet Count 475 K/UL (150-450) H Mean Platelet Volume 6.7 FL (6.5-10.1) Neutrophils (%) (Auto) 72.0 % (45.0-75.0) Lymphocytes (%) (Auto) 20.6 % (20.0-45.0) Monocytes (%) (Auto) 6.5 % (1.0-10.0) Eosinophils (%) (Auto) 0.6 % (0.0-3.0) Basophils (%) (Auto) 0.3 % (0.0-2.0) Sodium Level 143 MMOL/L (136-145) Potassium Level 4.2 MMOL/L (3.5-5.1) Chloride Level 107 MMOL/L (98-107) Carbon Dioxide Level 26 MMOL/L (21-32) Anion Gap 10 mmol/L (5-15) Blood Urea Nitrogen 20 mg/dL (7-18) H Creatinine 1.0 MG/DL (0.55-1.30) Estimat Glomerular Filtration Rate mL/min (>60) Glucose Level 114 MG/DL (74-106) H Calcium Level 8.8 MG/DL (8.5-10.1) Total Bilirubin 0.6 MG/DL (0.2-1.0) Aspartate Amino Transf (AST/SGOT) 29 U/L (15-37) Alanine Aminotransferase (ALT/SGPT) 24 U/L (12-78) Alkaline Phosphatase 55 U/L (46-116) Total Protein 6.1 G/DL (6.4-8.2) L Albumin 2.9 G/DL (3.4-5.0) L Globulin 3.2 g/dL Albumin/Globulin Ratio 0.9 (1.0-2.7) L Thyroid Stimulating Hormone (TSH) 3.103 uiU/mL (0.358-3.740) Microbiology Date/Time Source Procedure Growth Status 02/16/18 10:45 Urine,Clean Catch Urine Culture - Preliminary Gram Negative Bacillus 1 Resulted Intake and Output 02/16/18 02/17/18 19:00 07:00 Intake Total 50 ml 250 ml Balance 50 ml 250 ml Intake Oral 0 ml IV Total 50 ml 250 ml Objective PHYSICAL EXAMINATION: GENERAL: The patient is well-developed and well-nourished thin-appearing white female, in no apparent distress. HEENT: Eyes, pupils are equal and responsive to light and accommodation. Extraocular movements are intact. NECK: Supple without lymphadenopathy. CHEST: Lungs are clear to auscultation bilaterally without wheezes or rales. CARDIOVASCULAR: Regular rhythm and rate. S1 and S2 are normal without murmurs, rubs, or gallops. ABDOMEN: Soft, nontender, and nondistended. Positive bowel sounds. No evidence of hepatosplenomegaly. Currently, no rebound or guarding noted. EXTREMITIES: Negative for clubbing, cyanosis, or edema. Pain to palp right hip RECTAL/GENITAL: Refused. NEUROLOGIC: Cranial nerves II through XII are grossly intact without focal deficits. Motor strength is 5/5 bilaterally. Deep tendon reflexes are 2+ plantar. Assessment/Plan Problem List: (1) Hypercholesterolemia (2) CAD (coronary artery disease) Assessment & Plan: see dardiology note (3) Fracture of femoral neck, right, closed Assessment & Plan: Surgery on 02/18/18-see ortho note. (4) HTN (hypertension) (5) Sick sinus syndrome Assessment & Plan: S/P pacemaker (6) Pacemaker Status: not improved Aquilino Matthews MD Feb 17, 2018 12:37
--- NOTE | 2018-02-17 14:21 | Consultation ---
History of Present Illness General Date patient seen: Feb 17, 2018 Chief Complaint: Pain Present Illness HPI 82 year old female with hx of pacemaker, psychosis, DM, CAD presented to ER with CC of multiple falls over the past 3 weeks. She states that she has generalized weakness and pain in her right hip. She states that she has been unable to walk and keeps falling at home. She complains of pain in her right hip and inability to walk for the past week. she was diagnosed to have hip fracture and admitted for further work up. Allergies: Coded Allergies: No Known Allergies (Unverified , 08/10/13) Medication History Scheduled Amoxicillin/Potassium Clav 875-125* (Augmentin 875-125 Tablet*), 1 TAB ORAL TWICE A DAY Aspirin (Aspirin EC), 81 MG ORAL DAILY, (Reported) Atenolol (Tenormin), 25 MG ORAL DAILY, (Reported) Clonazepam* (Klonopin*), 0.5 MG ORAL Q6H, (Reported) Clonidine Hcl* (Catapres*), 0.1 MG ORAL EVERY 8 HOURS, (Reported) Clopidogrel* (Clopidogrel*), 75 MG ORAL DAILY, (Reported) Dicyclomine Hcl* (Dicyclomine Hcl*), 10 MG PO QID Famotidine (Pepcid), 20 MG ORAL BEDTIME Furosemide* (Lasix*), 40 MG ORAL DAILY, (Reported) Losartan Potassium* (Losartan Potassium*), 25 MG ORAL DAILY, (Reported) Metoprolol Succinate* (Metoprolol Succinate*), 50 MG ORAL DAILY, (Reported) No Known Medications* (NKM - No Known Medications*), 0 ., (Reported) Potassium Chloride (Potassium Chloride), 10 MEQ ORAL DAILY, (Reported) Rosuvastatin Calcium* (Crestor*), 10 MG ORAL DAILY, (Reported) Sitagliptin Phos/Metformin Hcl (Janumet Xr 50-1,000 Mg Tablet), 1 TAB ORAL DAILY , (Reported) Trazodone* (Trazodone*), 50 MG ORAL BEDTIME, (Reported) Vitamin D (Vitamin D3), 5,000 UNITS ORAL DAILY, (Reported) Scheduled PRN Hydrocodone Bit/Acetaminophen 5-325* ([place] 5-325*), 1 TAB ORAL Q6H PRN for For Pain Miscellaneous Medications Unable to Obtain Medications (Unable To Obtain Meds), (Reported) Patient History Healthcare decision maker Resuscitation status Full Code Advanced Directive on File Past Medical/Surgical History Past Medical/Surgical History: (1) Pacemaker (2) HTN (hypertension) (3) CAD (coronary artery disease) (4) Sick sinus syndrome (5) Psychosis (6) Diabetes mellitus, type II Review of Systems All Other Systems: negative except mentioned in HPI Physical Exam General Appearance: cachetic Lines, tubes and drains: peripheral HEENT: normocephalic, atraumatic Neck: non-tender, normal alignment Respiratory/Chest: chest wall non-tender, lungs clear Breasts: no masses Cardiovascular/Chest: normal peripheral pulses Abdomen: normal bowel sounds, non tender Genitourinary/Rectal: normal genital exam Extremities: normal range of motion Skin Exam: normal pigmentation Last 24 Hour Vital Signs Date Time Temp Pulse Resp B/P (MAP) Pulse Ox O2 Delivery O2 Flow Rate FiO2 02/17/18 12:07 97.7 69 18 126/85 (99) 99 97.7 02/17/18 10:08 97.7 02/17/18 09:00 Room Air 02/17/18 08:42 116/60 02/17/18 08:41 93 116/60 02/17/18 08:00 97.7 93 21 116/60 (78) 93 97.7 02/17/18 04:00 98.4 75 18 113/61 (78) 95 98.4 02/17/18 00:00 98.2 87 18 130/62 (84) 99 98.2 02/16/18 21:00 Room Air 02/16/18 20:00 99.3 81 19 142/84 (103) 97 99.3 02/16/18 18:52 98.1 02/16/18 18:36 98.1 77 18 148/60 (89) 98 98.1 02/16/18 15:46 Room Air 02/16/18 15:40 97.8 77 18 138/78 (98) 95 97.8 02/16/18 15:15 98.1 73 16 144/88 97 Room Air 02/16/18 15:14 98.1 73 18 142/88 97 Room Air 98.1 Intake and Output 02/16/18 02/17/18 19:00 07:00 Intake Total 50 ml 250 ml Balance 50 ml 250 ml Intake Oral 0 ml IV Total 50 ml 250 ml Laboratory Tests Test 02/17/18 06:10 White Blood Count 9.5 K/UL (4.8-10.8) Red Blood Count 3.50 M/UL (4.20-5.40) L Hemoglobin 10.0 G/DL (12.0-16.0) L Hematocrit 32.7 % (37.0-47.0) L Mean Corpuscular Volume 93 FL (80-99) Mean Corpuscular Hemoglobin 28.5 PG (27.0-31.0) Mean Corpuscular Hemoglobin Concent 30.5 G/DL (32.0-36.0) L Red Cell Distribution Width 17.7 % (11.6-14.8) H Platelet Count 475 K/UL (150-450) H Mean Platelet Volume 6.7 FL (6.5-10.1) Neutrophils (%) (Auto) 72.0 % (45.0-75.0) Lymphocytes (%) (Auto) 20.6 % (20.0-45.0) Monocytes (%) (Auto) 6.5 % (1.0-10.0) Eosinophils (%) (Auto) 0.6 % (0.0-3.0) Basophils (%) (Auto) 0.3 % (0.0-2.0) Sodium Level 143 MMOL/L (136-145) Potassium Level 4.2 MMOL/L (3.5-5.1) Chloride Level 107 MMOL/L (98-107) Carbon Dioxide Level 26 MMOL/L (21-32) Anion Gap 10 mmol/L (5-15) Blood Urea Nitrogen 20 mg/dL (7-18) H Creatinine 1.0 MG/DL (0.55-1.30) Estimat Glomerular Filtration Rate mL/min (>60) Glucose Level 114 MG/DL (74-106) H Calcium Level 8.8 MG/DL (8.5-10.1) Total Bilirubin 0.6 MG/DL (0.2-1.0) Aspartate Amino Transf (AST/SGOT) 29 U/L (15-37) Alanine Aminotransferase (ALT/SGPT) 24 U/L (12-78) Alkaline Phosphatase 55 U/L (46-116) Total Protein 6.1 G/DL (6.4-8.2) L Albumin 2.9 G/DL (3.4-5.0) L Globulin 3.2 g/dL Albumin/Globulin Ratio 0.9 (1.0-2.7) L Thyroid Stimulating Hormone (TSH) 3.103 uiU/mL (0.358-3.740) Height (Feet): 5 Height (Inches): 6.00 Weight (Pounds): 120 Medications Current Medications Medications (Trade) Dose Ordered Sig/Yi Route PRN Reason Start Time Stop Time Status Last Admin Dose Admin Acetaminophen (Tylenol) 650 mg Q4H PRN ORAL fever 02/16/18 14:30 03/18/18 14:29 Acetaminophen/ Hydrocodone Bitart ([place] 5/325) 1 tab Q6H PRN ORAL For PAIN 1-3 02/16/18 14:30 02/23/18 14:29 02/16/18 18:52 Al Hydroxide/Mg Hydroxide (Mylanta II) 30 ml Q6H PRN ORAL dyspepsia 02/16/18 14:23 03/18/18 14:22 Atenolol (Tenormin) 25 mg DAILY ORAL 02/17/18 09:00 03/19/18 08:59 02/17/18 08:41 Clonazepam (KlonoPIN) 0.5 mg Q6HR ORAL 02/16/18 18:00 02/23/18 17:59 02/17/18 12:24 Dextrose (Dextrose 50%) 25 ml Q30M PRN IV Hypoglycemia 02/16/18 14:30 03/18/18 14:25 Dextrose (Dextrose 50%) 50 ml Q30M PRN IV hypoglycemia 02/16/18 14:30 03/18/18 14:29 Dextrose/Sodium Chloride 1,000 ml @ 50 mls/hr Q20H IV 02/16/18 14:22 03/18/18 14:21 02/17/18 08:42 Haloperidol Lactate (Haldol) 5 mg Q4H PRN IM Agitation 02/16/18 18:45 03/18/18 18:44 02/17/18 04:36 Heparin Sodium (Porcine) (Heparin 5000 units/ml) 5,000 units EVERY 12 HOURS SUBQ 02/16/18 21:00 03/18/18 20:59 02/17/18 08:46 Lorazepam (Ativan 2mg/ml 1ml) 0.5 mg Q4H PRN IV For Anxiety 02/16/18 14:30 02/23/18 14:29 02/17/18 06:22 Losartan Potassium (Cozaar) 25 mg DAILY ORAL 02/17/18 09:00 03/19/18 08:59 02/17/18 08:42 Morphine Sulfate (Morphine Sulfate) 2 mg Q4H PRN IVP For Pain 4-6 02/16/18 14:30 02/23/18 14:29 Morphine Sulfate (Morphine Sulfate) 4 mg Q4H PRN IVP For Pain 7-10 02/16/18 14:30 02/23/18 14:29 02/17/18 09:38 Ondansetron HCl (Zofran) 4 mg Q6H PRN IVP Nausea & Vomiting 02/16/18 14:30 03/18/18 14:29 Polyethylene Glycol (Miralax) 17 gm HSPRN PRN ORAL Constipation 02/16/18 14:30 03/18/18 14:29 Quetiapine Fumarate (SEROquel) 25 mg QHS ORAL 02/17/18 00:30 03/19/18 00:29 02/17/18 00:34 Trazodone HCl (Desyrel) 50 mg BEDTIME ORAL 02/16/18 21:00 03/18/18 20:59 02/16/18 20:58 Zolpidem Tartrate (Ambien) 5 mg HSPRN PRN ORAL Insomnia 02/16/18 14:30 02/23/18 14:29 02/16/18 22:09 Assessment/Plan Problem List: (1) Fracture of femoral neck, right, closed ICD Codes: S72.001A - Fracture of unspecified part of neck of right femur, initial encounter for closed fracture SNOMED: 324728834 (2) Pacemaker ICD Codes: Z95.0 - Presence of cardiac pacemaker SNOMED: 625223503 (3) HTN (hypertension) ICD Codes: I10 - Essential (primary) hypertension SNOMED: 70143376 (4) CAD (coronary artery disease) ICD Codes: I25.10 - Atherosclerotic heart disease of [place] coronary artery without angina pectoris SNOMED: 97492194 (5) Sick sinus syndrome ICD Codes: I49.5 - Sick sinus syndrome SNOMED: 16902146 (6) Hip fracture, right ICD Codes: S72.001A - Fracture of unspecified part of neck of right femur, initial encounter for closed fracture SNOMED: 257327913 (7) Hypercholesterolemia ICD Codes: E78.00 - Pure hypercholesterolemia, unspecified SNOMED: 73136037 Assessment/Plan surgical evaluation symptomatic treatment pain management cxr, Echo for cardiac evaluation sliding scale, diabetic diet dvt prophylaxis. Rod Mancera MD Feb 17, 2018 14:21
--- NOTE | 2018-02-17 14:34 | Consultation ---
History of Present Illness General Date patient seen: Feb 17, 2018 Chief Complaint: Pain Present Illness HPI 82-year-old [place]ian-speaking female, presents with chief complaint of right hip pain. The pt is having waxing and waning of consciousness. the pt has episodes of agitation Allergies: Coded Allergies: No Known Allergies (Unverified , 08/10/13) Medication History Scheduled Amoxicillin/Potassium Clav 875-125* (Augmentin 875-125 Tablet*), 1 TAB ORAL TWICE A DAY Aspirin (Aspirin EC), 81 MG ORAL DAILY, (Reported) Atenolol (Tenormin), 25 MG ORAL DAILY, (Reported) Clonazepam* (Klonopin*), 0.5 MG ORAL Q6H, (Reported) Clonidine Hcl* (Catapres*), 0.1 MG ORAL EVERY 8 HOURS, (Reported) Clopidogrel* (Clopidogrel*), 75 MG ORAL DAILY, (Reported) Dicyclomine Hcl* (Dicyclomine Hcl*), 10 MG PO QID Famotidine (Pepcid), 20 MG ORAL BEDTIME Furosemide* (Lasix*), 40 MG ORAL DAILY, (Reported) Losartan Potassium* (Losartan Potassium*), 25 MG ORAL DAILY, (Reported) Metoprolol Succinate* (Metoprolol Succinate*), 50 MG ORAL DAILY, (Reported) No Known Medications* (NKM - No Known Medications*), 0 ., (Reported) Potassium Chloride (Potassium Chloride), 10 MEQ ORAL DAILY, (Reported) Rosuvastatin Calcium* (Crestor*), 10 MG ORAL DAILY, (Reported) Sitagliptin Phos/Metformin Hcl (Janumet Xr 50-1,000 Mg Tablet), 1 TAB ORAL DAILY , (Reported) Trazodone* (Trazodone*), 50 MG ORAL BEDTIME, (Reported) Vitamin D (Vitamin D3), 5,000 UNITS ORAL DAILY, (Reported) Scheduled PRN Hydrocodone Bit/Acetaminophen 5-325* ([place] 5-325*), 1 TAB ORAL Q6H PRN for For Pain Miscellaneous Medications Unable to Obtain Medications (Unable To Obtain Meds), (Reported) Patient History Limited by: medical condition History Provided By: Patient, Medical Record Healthcare decision maker Resuscitation status Full Code Advanced Directive on File Past Medical/Surgical History Past Medical/Surgical History: (1) Delirium (2) Acute on chronic systolic CHF (congestive heart failure) (3) Colitis (4) Abdominal pain (5) right arm contusion (6) encephalopathy due to (7) Diabetes mellitus, type II (8) Hypercholesteremia (9) Closed fracture of symphysis pubis (10) Fracture of pubic ramus (11) Psychosis (12) DVT of left axillary vein, acute (13) Hip fracture, right (14) Sick sinus syndrome (15) CAD (coronary artery disease) (16) Hypercholesterolemia (17) HTN (hypertension) (18) Pacemaker (19) Fracture of femoral neck, right, closed Review of Systems Psychiatric: Reports: prior hx, anxiety Physical Exam General Appearance: no apparent distress, alert, agitated Neurologic: depressed affect Last 24 Hour Vital Signs Date Time Temp Pulse Resp B/P (MAP) Pulse Ox O2 Delivery O2 Flow Rate FiO2 02/17/18 12:07 97.7 69 18 126/85 (99) 99 97.7 02/17/18 10:08 97.7 02/17/18 09:00 Room Air 02/17/18 08:42 116/60 02/17/18 08:41 93 116/60 02/17/18 08:00 97.7 93 21 116/60 (78) 93 97.7 02/17/18 04:00 98.4 75 18 113/61 (78) 95 98.4 02/17/18 00:00 98.2 87 18 130/62 (84) 99 98.2 02/16/18 21:00 Room Air 02/16/18 20:00 99.3 81 19 142/84 (103) 97 99.3 02/16/18 18:52 98.1 02/16/18 18:36 98.1 77 18 148/60 (89) 98 98.1 02/16/18 15:46 Room Air 02/16/18 15:40 97.8 77 18 138/78 (98) 95 97.8 02/16/18 15:15 98.1 73 16 144/88 97 Room Air 02/16/18 15:14 98.1 73 18 142/88 97 Room Air 98.1 Intake and Output 02/16/18 02/17/18 19:00 07:00 Intake Total 50 ml 250 ml Balance 50 ml 250 ml Intake Oral 0 ml IV Total 50 ml 250 ml Laboratory Tests Test 02/17/18 06:10 White Blood Count 9.5 K/UL (4.8-10.8) Red Blood Count 3.50 M/UL (4.20-5.40) L Hemoglobin 10.0 G/DL (12.0-16.0) L Hematocrit 32.7 % (37.0-47.0) L Mean Corpuscular Volume 93 FL (80-99) Mean Corpuscular Hemoglobin 28.5 PG (27.0-31.0) Mean Corpuscular Hemoglobin Concent 30.5 G/DL (32.0-36.0) L Red Cell Distribution Width 17.7 % (11.6-14.8) H Platelet Count 475 K/UL (150-450) H Mean Platelet Volume 6.7 FL (6.5-10.1) Neutrophils (%) (Auto) 72.0 % (45.0-75.0) Lymphocytes (%) (Auto) 20.6 % (20.0-45.0) Monocytes (%) (Auto) 6.5 % (1.0-10.0) Eosinophils (%) (Auto) 0.6 % (0.0-3.0) Basophils (%) (Auto) 0.3 % (0.0-2.0) Sodium Level 143 MMOL/L (136-145) Potassium Level 4.2 MMOL/L (3.5-5.1) Chloride Level 107 MMOL/L (98-107) Carbon Dioxide Level 26 MMOL/L (21-32) Anion Gap 10 mmol/L (5-15) Blood Urea Nitrogen 20 mg/dL (7-18) H Creatinine 1.0 MG/DL (0.55-1.30) Estimat Glomerular Filtration Rate mL/min (>60) Glucose Level 114 MG/DL (74-106) H Calcium Level 8.8 MG/DL (8.5-10.1) Total Bilirubin 0.6 MG/DL (0.2-1.0) Aspartate Amino Transf (AST/SGOT) 29 U/L (15-37) Alanine Aminotransferase (ALT/SGPT) 24 U/L (12-78) Alkaline Phosphatase 55 U/L (46-116) Total Protein 6.1 G/DL (6.4-8.2) L Albumin 2.9 G/DL (3.4-5.0) L Globulin 3.2 g/dL Albumin/Globulin Ratio 0.9 (1.0-2.7) L Thyroid Stimulating Hormone (TSH) 3.103 uiU/mL (0.358-3.740) Height (Feet): 5 Height (Inches): 6.00 Weight (Pounds): 120 Medications Current Medications Medications (Trade) Dose Ordered Sig/Yi Route PRN Reason Start Time Stop Time Status Last Admin Dose Admin Acetaminophen (Tylenol) 650 mg Q4H PRN ORAL fever 02/16/18 14:30 03/18/18 14:29 Acetaminophen/ Hydrocodone Bitart ([place] 5/325) 1 tab Q6H PRN ORAL For PAIN 1-3 02/16/18 14:30 02/23/18 14:29 02/16/18 18:52 Al Hydroxide/Mg Hydroxide (Mylanta II) 30 ml Q6H PRN ORAL dyspepsia 02/16/18 14:23 03/18/18 14:22 Atenolol (Tenormin) 25 mg DAILY ORAL 02/17/18 09:00 03/19/18 08:59 02/17/18 08:41 Clonazepam (KlonoPIN) 0.5 mg Q6HR ORAL 02/16/18 18:00 02/23/18 17:59 02/17/18 12:24 Dextrose (Dextrose 50%) 25 ml Q30M PRN IV Hypoglycemia 02/16/18 14:30 03/18/18 14:25 Dextrose (Dextrose 50%) 50 ml Q30M PRN IV hypoglycemia 02/16/18 14:30 03/18/18 14:29 Dextrose/Sodium Chloride 1,000 ml @ 50 mls/hr Q20H IV 02/16/18 14:22 03/18/18 14:21 02/17/18 08:42 Haloperidol Lactate (Haldol) 5 mg Q4H PRN IM Agitation 02/16/18 18:45 03/18/18 18:44 02/17/18 04:36 Heparin Sodium (Porcine) (Heparin 5000 units/ml) 5,000 units EVERY 12 HOURS SUBQ 02/16/18 21:00 03/18/18 20:59 02/17/18 08:46 Lorazepam (Ativan 2mg/ml 1ml) 0.5 mg Q4H PRN IV For Anxiety 02/16/18 14:30 02/23/18 14:29 02/17/18 06:22 Losartan Potassium (Cozaar) 25 mg DAILY ORAL 02/17/18 09:00 03/19/18 08:59 02/17/18 08:42 Morphine Sulfate (Morphine Sulfate) 2 mg Q4H PRN IVP For Pain 4-6 02/16/18 14:30 02/23/18 14:29 Morphine Sulfate (Morphine Sulfate) 4 mg Q4H PRN IVP For Pain 7-10 02/16/18 14:30 02/23/18 14:29 02/17/18 09:38 Ondansetron HCl (Zofran) 4 mg Q6H PRN IVP Nausea & Vomiting 02/16/18 14:30 03/18/18 14:29 Polyethylene Glycol (Miralax) 17 gm HSPRN PRN ORAL Constipation 02/16/18 14:30 03/18/18 14:29 Quetiapine Fumarate (SEROquel) 25 mg QHS ORAL 02/17/18 00:30 03/19/18 00:29 02/17/18 00:34 Trazodone HCl (Desyrel) 50 mg BEDTIME ORAL 02/16/18 21:00 03/18/18 20:59 02/16/18 20:58 Zolpidem Tartrate (Ambien) 5 mg HSPRN PRN ORAL Insomnia 02/16/18 14:30 02/23/18 14:29 02/16/18 22:09 Assessment/Plan Status: stable Status Narrative encephalopathy due to metabolic condition -seroquel prn -provided kenneth/Lena Lawrence MD Feb 17, 2018 14:34
--- NOTE | 2018-02-17 15:22 | Diagnostic Imaging Report ---
Indication: Shortness of breath Technique: One view of the chest Comparison: 02/03/2018 Findings: Bilateral pacemakers are again demonstrated. There is possibly some right perihilar infiltrate. The heart is enlarged. There is equivocal slight blunting of left costophrenic sulcus. The remainder of the lungs are clear. Previously demonstrated generalized mild interstitial congestion has resolved Impression: Suspect right perihilar infiltrate Questionable trace left pleural effusion
--- NOTE | 2018-02-17 18:00 | Consultation ---
DATE OF CONSULTATION: 02/17/2018 PAIN MANAGEMENT CONSULTATION CONSULTING PHYSICIAN: Ruthie Lynn M.D. REFERRING PHYSICIAN: Rod Mancera M.D. PHYSICIAN [employer] PROFESSOR: NICOLLE Zapata. CHIEF COMPLAINT: Right hip pain. HISTORY OF PRESENT ILLNESS: This is an 82-year-old female, who is being seen on the Med/Surg floor of [facility] for initial comprehensive pain management consultation. The patient is admitted under the care of Dr. Berkowitz, being seen by Dr. Matthews, Tongan-speaking, and complaining of right hip pain, found to be on the floor. CT scan of the right hip was found to have a comminuted fracture of the right femoral neck and is going for surgery with Dr. Lopez. At this time, she is on morphine 2 to 4 mg IV every 4 hours as needed for [id number] pain with Riverside 5/325 one tablet every 4 hours as needed for mild pain. At this time, the patient is comfortable and showing no signs of pain or distress at this time. PAST MEDICAL HISTORY: Diabetes mellitus, hypertension, sick sinus syndrome, hypercholesteremia, and history of non-STEMI. PAST SURGICAL HISTORY: Coronary artery bypass, pacemaker placement, history of elbow debridement, and pacemaker implantation. SOCIAL HISTORY: Denies smoking tobacco, drinking alcohol, or IV drug abuse. MEDICATIONS: Aspirin, atenolol, Klonopin, clonidine, clopidogrel, dicyclomine, Pepcid, furosemide, Riverside, losartan, metoprolol, potassium, Crestor, Janumet, trazodone, and vitamin D. ALLERGIES: No known drug allergies. REVIEW OF SYSTEMS: Denies rash, fever, chills, sweating, dizziness, drowsiness, blurred vision, sore throat, or change in her weight. No shortness of breath, chest pain, palpitations, or cough. She is complaining of right hip pain. PHYSICAL EXAMINATION: GENERAL: Alert and awake. VITAL SIGNS: Blood pressure 113/64, heart rate 75, oxygen saturation 95%, respirations 18, and temperature 98.4 degrees Fahrenheit. HEENT: PERRLA. NECK: Range of motion is full in all directions. No tenderness to paracervical muscles. No adenopathy. LUNGS: Decreased breath sounds bilaterally. HEART: S1 and S2 regular. ABDOMEN: Benign. BACK: Range of motion is full in flexion and extension. EXTREMITIES: Upper and lower extremity range of motion is decreased due to the patient's condition with tenderness to palpation on the right hip. Ecchymosis noted. NEUROLOGIC: Sensory is intact. Reflexes are not obtainable. No adenopathy. ASSESSMENT: This is an 82-year-old female with right hip fracture and right hip pain status post fall. The patient will continue on Riverside and morphine as needed. The patient is awaiting to have surgical intervention with the orthopedic surgeon for the right hip fracture. The patient was discussed with Dr. Lynn and he concurred. We will follow up with the patient. Thank you very much for the courtesy of this consultation. Ruthie Lynn M.D. NICOLLE Liang DR: MARIS JOB#: [id number] CC:
[2018-02-17 19:26] LABS: INR 1.1 (0.9-1.1)
[2018-02-17 20:00] VITALS: BP 154/89
[2018-02-17] MEDS: TraZODone 50mg tab ORAL SCH (20:47)
[2018-02-18] VITALS (13 sets, daily range): BP systolic 114–157; BP diastolic 54–91
[2018-02-18] MEDS: Zolpidem 5mg tab ORAL PRN (00:14)
[2018-02-18] MEDS: clonazePAM 0.5mg tab ORAL SCH ×4 (00:14→22:04)
[2018-02-18] MEDS: Morphine Sulfate 4mg/ml Inj (IV USE ONLY) IVP PRN (05:40)
[2018-02-18] MEDS: Losartan 25mg tab ORAL SCH (09:00)
[2018-02-18] MEDS: Atenolol 25mg tab ORAL SCH (09:00)
[2018-02-18] MEDS: Heparin 5000 units/ml inj SUBQ SCH ×2 (09:00→22:03)
[2018-02-18 10:37] LABS: BASOPHILS % (AUTO) 0.3 % (0.0-2.0); EOSINOPHILS % (AUTO) 0.7 % (0.0-3.0); HEMATOCRIT 30.7 % (37.0-47.0); HEMOGLOBIN 9.6 G/DL (12.0-16.0); LYMPHOCYTES % (AUTO) 14.2 % (20.0-45.0); MEAN CORPUSCULAR VOLUME 93 FL (80-99); MONOCYTES % (AUTO) 7.8 % (1.0-10.0); NEUTROPHILS % (AUTO) 76.9 % (45.0-75.0); PLATELET COUNT 453 K/UL (150-450); RED BLOOD COUNT 3.31 M/UL (4.20-5.40); RED CELL DISTRIBUTION WIDTH 17.1 % (11.6-14.8)
[2018-02-18 10:52] LABS: ANION GAP 8 mmol/L (5-15); BLOOD UREA NITROGEN 12 mg/dL (7-18); CALCIUM 8.7 MG/DL (8.5-10.1); CARBON DIOXIDE 28 MMOL/L (21-32); CHLORIDE 108 MMOL/L (98-107); CREATININE 0.8 MG/DL (0.55-1.30); POTASSIUM 3.8 MMOL/L (3.5-5.1); SODIUM 143 MMOL/L (136-145)
[2018-02-18] MEDS ORDERED: cefTRIAXone 1 GM in D5W 55 ML IVPB SCH (12:30)
[2018-02-18] MEDS: LORazepam Inj 2mg/ml 1ml IV PRN (12:57)
--- NOTE | 2018-02-18 14:16 | General Progress Note ---
Assessment/Plan Assessment/Plan (1) Right hip fracture (2) Right hip pain (3) S/p fall Patient to be continued on Morphine and [place] as needed. D/w Dr. Lynn and he concurred. Subjective Date patient seen: Feb 18, 2018 Time patient seen: 01:15 - pm Allergies: Coded Allergies: No Known Allergies (Unverified , 08/10/13) Subjective REVIEW OF SYSTEMS: Denies rash, fever, chills, sweating, dizziness, drowsiness, blurred vision, sore throat, or change in her weight. No shortness of breath, chest pain, palpitations, or cough. She is complaining of right hip pain. SUBJECTIVE: Patient is in bed and showing no signs of pain or distress at this time. Had been c/o pain which was severe and received 3 doses of Morphine and 1 [place] in the last 24hrs. Waiting for Ortho eval. Objective Last 24 Hour Vital Signs Date Time Temp Pulse Resp B/P (MAP) Pulse Ox O2 Delivery O2 Flow Rate FiO2 02/18/18 12:09 97.7 81 20 155/75 (101) 97 97.7 02/18/18 09:00 Room Air 02/18/18 08:22 94.1 95 19 157/91 (113) 100 94.1 02/18/18 04:00 97.3 85 20 154/80 (104) 99 97.3 02/18/18 00:00 97.9 80 22 148/73 (98) 99 97.9 02/17/18 21:00 Room Air 02/17/18 20:00 97.9 99 20 154/89 (110) 100 97.9 02/17/18 15:49 97.7 Intake and Output 02/17/18 02/18/18 19:00 07:00 Intake Total 500 ml 550 ml Balance 500 ml 550 ml IV Total 500 ml 550 ml # Voids 3 7 Laboratory Tests 02/17/18 18:00: Prothrombin Time 11.9H, Prothromb Time International Ratio 1.1, Activated Partial Thromboplast Time 27 02/18/18 10:20: White Blood Count 8.0, Red Blood Count 3.31L, Hemoglobin 9.6L, Hematocrit 30.7L , Mean Corpuscular Volume 93, Mean Corpuscular Hemoglobin 28.9, Mean Corpuscular Hemoglobin Concent 31.1L, Red Cell Distribution Width 17.1H, Platelet Count 453H, Mean Platelet Volume 7.1, Neutrophils (%) (Auto) 76.9H, Lymphocytes (%) (Auto) 14.2L, Monocytes (%) (Auto) 7.8, Eosinophils (%) (Auto) 0.7, Basophils (%) (Auto) 0.3, Sodium Level 143, Potassium Level 3.8, Chloride Level 108H, Carbon Dioxide Level 28, Anion Gap 8, Blood Urea Nitrogen 12, Creatinine 0.8, Estimat Glomerular Filtration Rate , Glucose Level 139H, Calcium Level 8.7 Height (Feet): 5 Height (Inches): 6.00 Weight (Pounds): 120 Objective GENERAL: Alert and awake. LUNGS: Decreased breath sounds bilaterally. HEART: S1 and S2 regular. ABDOMEN: Benign. EXTREMITIES: No CCE noted. NEURO: No changes. Efren Beltran Feb 18, 2018 14:16
--- NOTE | 2018-02-18 15:08 | Pulmonology Progress Note ---
Assessment/Plan Problems: (1) Fracture of femoral neck, right, closed (2) Pacemaker (3) HTN (hypertension) (4) CAD (coronary artery disease) (5) Sick sinus syndrome (6) Hip fracture, right (7) Hypercholesterolemia Assessment/Plan cxr reviewed, questionable Right perihilar infiltrate noted. doubt pneumonia, will call ID titrate cardiology meds symptomatic treatment surgery when ok with Cardio Subjective ROS Limited/Unobtainable: No Constitutional: Reports: no symptoms HEENT: Repors: no symptoms Respiratory: Reports: no symptoms Allergies: Coded Allergies: No Known Allergies (Unverified , 08/10/13) Objective Last 24 Hour Vital Signs Date Time Temp Pulse Resp B/P (MAP) Pulse Ox O2 Delivery O2 Flow Rate FiO2 02/18/18 12:09 97.7 81 20 155/75 (101) 97 97.7 02/18/18 09:00 Room Air 02/18/18 08:22 94.1 95 19 157/91 (113) 100 94.1 02/18/18 04:00 97.3 85 20 154/80 (104) 99 97.3 02/18/18 00:00 97.9 80 22 148/73 (98) 99 97.9 02/17/18 21:00 Room Air 02/17/18 20:00 97.9 99 20 154/89 (110) 100 97.9 02/17/18 15:49 97.7 Intake and Output 02/17/18 02/18/18 19:00 07:00 Intake Total 500 ml 550 ml Balance 500 ml 550 ml IV Total 500 ml 550 ml # Voids 3 7 General Appearance: WD/WN HEENT: normocephalic, anicteric Breasts: no masses Cardiovascular: normal peripheral pulses, regular rhythm Abdomen: soft, non tender, no organomegaly Extremities: no cyanosis Skin: no rash Microbiology Date/Time Source Procedure Growth Status 02/16/18 10:45 Urine,Clean Catch Urine Culture - Final Escherichia Coli Complete Laboratory Tests 02/17/18 18:00: Prothrombin Time 11.9H, Prothromb Time International Ratio 1.1, Activated Partial Thromboplast Time 27 02/18/18 10:20: White Blood Count 8.0, Red Blood Count 3.31L, Hemoglobin 9.6L, Hematocrit 30.7L , Mean Corpuscular Volume 93, Mean Corpuscular Hemoglobin 28.9, Mean Corpuscular Hemoglobin Concent 31.1L, Red Cell Distribution Width 17.1H, Platelet Count 453H, Mean Platelet Volume 7.1, Neutrophils (%) (Auto) 76.9H, Lymphocytes (%) (Auto) 14.2L, Monocytes (%) (Auto) 7.8, Eosinophils (%) (Auto) 0.7, Basophils (%) (Auto) 0.3, Sodium Level 143, Potassium Level 3.8, Chloride Level 108H, Carbon Dioxide Level 28, Anion Gap 8, Blood Urea Nitrogen 12, Creatinine 0.8, Estimat Glomerular Filtration Rate , Glucose Level 139H, Calcium Level 8.7 Current Medications Medications (Trade) Dose Ordered Sig/Yi Route PRN Reason Start Time Stop Time Status Last Admin Dose Admin Acetaminophen (Tylenol) 650 mg Q4H PRN ORAL fever 02/16/18 14:30 03/18/18 14:29 Acetaminophen/ Hydrocodone Bitart ([place] 5/325) 1 tab Q6H PRN ORAL For PAIN 1-3 02/16/18 14:30 02/23/18 14:29 02/16/18 18:52 Al Hydroxide/Mg Hydroxide (Mylanta II) 30 ml Q6H PRN ORAL dyspepsia 02/16/18 14:23 03/18/18 14:22 Atenolol (Tenormin) 25 mg DAILY ORAL 02/17/18 09:00 03/19/18 08:59 02/17/18 08:41 Ceftriaxone Sodium 1 gm/ Dextrose 55 ml @ 110 mls/hr Q24H IVPB 02/18/18 12:30 02/25/18 12:29 02/18/18 13:07 Clonazepam (KlonoPIN) 0.5 mg Q6HR ORAL 02/16/18 18:00 02/23/18 17:59 02/18/18 05:39 Dextrose (Dextrose 50%) 25 ml Q30M PRN IV Hypoglycemia 02/16/18 14:30 03/18/18 14:25 Dextrose (Dextrose 50%) 50 ml Q30M PRN IV hypoglycemia 02/16/18 14:30 03/18/18 14:29 Dextrose/Sodium Chloride 1,000 ml @ 50 mls/hr Q20H IV 02/16/18 14:22 03/18/18 14:21 10/3/18 22:07 Haloperidol Lactate (Haldol) 5 mg Q4H PRN IM Agitation 02/16/18 18:45 03/18/18 18:44 02/17/18 04:36 Heparin Sodium (Porcine) (Heparin 5000 units/ml) 5,000 units EVERY 12 HOURS SUBQ 02/16/18 21:00 03/18/18 20:59 02/17/18 20:48 Lorazepam (Ativan 2mg/ml 1ml) 0.5 mg Q4H PRN IV For Anxiety 02/16/18 14:30 02/23/18 14:29 02/18/18 12:57 Losartan Potassium (Cozaar) 25 mg DAILY ORAL 02/17/18 09:00 03/19/18 08:59 02/17/18 08:42 Morphine Sulfate (Morphine Sulfate) 2 mg Q4H PRN IVP For Pain 4-6 02/16/18 14:30 02/23/18 14:29 Morphine Sulfate (Morphine Sulfate) 4 mg Q4H PRN IVP For Pain 7-10 02/16/18 14:30 02/23/18 14:29 02/18/18 05:40 Ondansetron HCl (Zofran) 4 mg Q6H PRN IVP Nausea & Vomiting 02/16/18 14:30 03/18/18 14:29 Polyethylene Glycol (Miralax) 17 gm HSPRN PRN ORAL Constipation 02/16/18 14:30 03/18/18 14:29 Quetiapine Fumarate (SEROquel) 12.5 mg Q4H PRN ORAL agitation 02/17/18 14:45 03/19/18 14:44 Quetiapine Fumarate (SEROquel) 25 mg QHS ORAL 02/17/18 00:30 03/19/18 00:29 02/17/18 20:47 Trazodone HCl (Desyrel) 50 mg BEDTIME ORAL 02/16/18 21:00 03/18/18 20:59 02/17/18 20:47 Zolpidem Tartrate (Ambien) 5 mg HSPRN PRN ORAL Insomnia 02/16/18 14:30 02/23/18 14:29 02/18/18 00:14 Rod Mancera MD Feb 18, 2018 15:08
[2018-02-18] MEDS ORDERED: Morphine Sulfate PF 0 ML ONE (16:34)
[2018-02-18] MEDS ORDERED: cloNIDine 1000mcg/10ml inj ONE (16:35)
[2018-02-18] MEDS ORDERED: Bupivacaine w/Epi 0.5% 30ml Vial INJ ONE (16:35)
[2018-02-18] MEDS ORDERED: Kenalog-40 1ml Vial ONE (16:35)
[2018-02-18] MEDS ORDERED: Ketorolac 30mg Inj ONE (16:35)
[2018-02-18] MEDS ORDERED: NeoSporin Gu Irrig 1ml Amp IRRIG ONE (16:35)
[2018-02-18] MEDS ORDERED: Bacitracin 50000 Units Vial ONE (16:35)
[2018-02-18] MEDS ORDERED: Bupivacaine 0.5% Inj 30 ml vial INJ ONE (16:37)
[2018-02-18] MEDS ORDERED: Bupivacaine w/Epi 0.25% 30ml Vial INJ ONE (16:37)
[2018-02-18] MEDS ORDERED: Propofol 200mg/20ml IV ONE (17:00)
[2018-02-18] MEDS ORDERED: Sterile Water Irrig 1000ml IRRIG ONE (17:00)
[2018-02-18] MEDS ORDERED: NS Irrig 1000ml ONE (17:00)
[2018-02-18] MEDS ORDERED: LR 1000ml 1,000 ML IVLG SCH (17:01)
--- NOTE | 2018-02-18 17:09 | Anethesia Preoperative Eval ---
Anesthesia Pre-op PMH/ROS General Date of Evaluation: Feb 18, 2018 Time of Evaluation: 17:11 Anesthesiologist: Jerod ASA Score: ASA 4 - Emergency Mallampati Score Class I : Soft palate, uvula, fauces, pillars visible Class II: Soft palate, uvula, fauces visible Class III: Soft palate, base of uvula visible Class IV: Only hard plate visible Mallampati Classification: Class III Surgeon: John Diagnosis: R Hip Fx Surgical Procedure: R Hip Hemiarthroplasty Anesthesia History: none Family History: no anesthesia problems Allergies: Coded Allergies: No Known Allergies (Unverified , 08/10/13) Medications: see eMAR Past Medical History Cardiovascular: Reports: HTN, CAD - CHF, arrhythmia - SSS, other - HL Gastrointestinal/Genitourinary: Reports: other - Colitis Neurologic/Psychiatric: Reports: dementia, depression/anxiety Hematology/Immune: Reports: anemia Musculoskeletal/Integumentary: Reports: other - R Hip Fracture PSxH Narrative: Pacemaker Anesthesia Pre-op Phys. Exam Physician Exam Last Vital Signs Date Time Temp Pulse Resp B/P (MAP) Pulse Ox O2 Delivery O2 Flow Rate FiO2 02/18/18 15:54 98.6 78 22 152/70 (97) 99 98.6 02/18/18 09:00 Room Air 02/16/18 10:35 1.0 Constitutional: NAD Neurologic: CN 2-12 intact Cardiovascular: RRR Respiratory: CTA Gastrointestinal: S/NT/ND Airway Exam Mallampati Score: Class III MO: limited ROM: limited Teeth: missing, intact Anesthesia Pre-op A/P Labs Hematology Test 02/18/18 10:20 White Blood Count 8.0 K/UL (4.8-10.8) Red Blood Count 3.31 M/UL (4.20-5.40) L Hemoglobin 9.6 G/DL (12.0-16.0) L Hematocrit 30.7 % (37.0-47.0) L Mean Corpuscular Volume 93 FL (80-99) Mean Corpuscular Hemoglobin 28.9 PG (27.0-31.0) Mean Corpuscular Hemoglobin Concent 31.1 G/DL (32.0-36.0) L Red Cell Distribution Width 17.1 % (11.6-14.8) H Platelet Count 453 K/UL (150-450) H Mean Platelet Volume 7.1 FL (6.5-10.1) Neutrophils (%) (Auto) 76.9 % (45.0-75.0) H Lymphocytes (%) (Auto) 14.2 % (20.0-45.0) L Monocytes (%) (Auto) 7.8 % (1.0-10.0) Eosinophils (%) (Auto) 0.7 % (0.0-3.0) Basophils (%) (Auto) 0.3 % (0.0-2.0) Coagulation Test 02/17/18 18:00 Prothrombin Time 11.9 SEC (9.30-11.50) H Prothromb Time International Ratio 1.1 (0.9-1.1) Activated Partial Thromboplast Time 27 SEC (23-33) Chemistry Test 02/18/18 10:20 Sodium Level 143 MMOL/L (136-145) Potassium Level 3.8 MMOL/L (3.5-5.1) Chloride Level 108 MMOL/L (98-107) H Carbon Dioxide Level 28 MMOL/L (21-32) Anion Gap 8 mmol/L (5-15) Blood Urea Nitrogen 12 mg/dL (7-18) Creatinine 0.8 MG/DL (0.55-1.30) Estimat Glomerular Filtration Rate mL/min (>60) Glucose Level 139 MG/DL (74-106) H Calcium Level 8.7 MG/DL (8.5-10.1) Risk Assessment & Plan Assessment: ASA 4 Plan: GA, SED, Spinal Status Change Before Surgery: No Pre-Antibiotics Dru Gram Ancef IV Given Within 1 Hr of Incision: Yes Time Given: 17:36 Arnulfo Newsome MD Feb 18, 2018 17:09
--- NOTE | 2018-02-18 17:10 | Immediate Post-Op Evaluation ---
Immediate Post-Op Evalulation Immediate Post-Op Evalulation Procedure: R Hip Hemiarthroplasty Date of Evaluation: Feb 18, 2018 Time of Evaluation: 19:05 IV Fluids: 300 NS Blood Products: 0 Estimated Blood Loss: 25 Urinary Output: 100 Blood Pressure Systolic: 142 Blood Pressure Diastolic: 71 Pulse Rate: 82 Respiratory Rate: 16 O2 Sat by Pulse Oximetry: 100 Temperature (Fahrenheit): 98.7 Pain Score (1-10): 1 Nausea: No Vomiting: No Complications 0 Patient Status: awake, reacts, patent, none Hydration Status: adequate Dru Gram Ancef IV Given Within 1 Hr of Incision: Yes Time Given: 17:36 Arnulfo Newsome MD Feb 18, 2018 17:10
[2018-02-18] MEDS ORDERED: fentaNYL 100 mcg/2 mL IV PRN (17:15)
[2018-02-18] MEDS ORDERED: DiphenhydrAMINE 50mg/ml Inj IVP PRN (17:15)
[2018-02-18] MEDS ORDERED: Meperidine 50mg/ml Inj(FOR RIGORS ONLY) IVP PRN (17:15)
[2018-02-18] MEDS ORDERED: LORazepam Inj 2mg/ml 1ml IV PRN (17:15)
[2018-02-18] MEDS ORDERED: oxyCODONE HCL/Acetaminophen 5/325mg ORAL PRN (17:15)
[2018-02-18] MEDS ORDERED: Hydromorphone 0.5mg/0.5ml inj IVP PRN (17:15)
[2018-02-18] MEDS ORDERED: Midazolam 2mg/2ml Inj IVP PRN (17:15)
[2018-02-18] MEDS ORDERED: Atropine Sulfate 0.4mg/ml inj IVP PRN (17:15)
[2018-02-18] MEDS ORDERED: HYDROcodone/Acetamin 7.5/325 tab ORAL PRN (17:15)
[2018-02-18] MEDS ORDERED: Norco 5mg/325mg tab ORAL PRN ×2 (17:15→17:30)
[2018-02-18] MEDS ORDERED: Labetalol 5mg/ml 20ml vial IV PRN (17:15)
[2018-02-18] MEDS ORDERED: Ketorolac 30mg Inj IV PRN ×2 (17:15)
[2018-02-18] MEDS ORDERED: EPINEPHrine 1mg/1ml Amp ONE (17:21)
[2018-02-18] MEDS ORDERED: Lidocaine 1% Plain 30 ml INJ ONE (17:28)
--- NOTE | 2018-02-18 17:29 | Operative Note - PDOC ---
Operative Note Operative Note Pre-op Diagnosis: right femoral neck fracture Procedure: see op report Post-op Diagnosis: same as pre-op plus Operative Findings: consistent w/pre-op dx studies Specimen: none Complications: none Condition: stable Estimated Blood Loss: none Implant(s) used?: Yes Shen Lopez MD Feb 18, 2018 17:29
--- NOTE | 2018-02-18 17:29 | Pre-Procedure Note/Attestation ---
Pre-Procedure Note/Attestation Complete Prior to Procedure Planned Procedure: right Procedure Narrative: hip hemiarthroplasty Indications for Procedure Pre-Operative Diagnosis: right femoral neck fracture Attestation I attest that I discussed the nature of the procedure; its benefits; risks and complications; and alternatives (and the risks and benefits of such alternatives ), prior to the procedure, with the patient (or the patient's legal direct customer service representative). I attest that, if there was a reasonable possibility of needing a blood transfusion, the patient (or the patient's legal direct customer service representative) was given the [facility] standardized written summary, pursuant to the [place] Blood Safety Act ([place] Health and Safety Code # 1645, as amended). I attest that I re-evaluated the patient just prior to the surgery and that there has been no change in the patient's H&P, except as documented below: Shen Lopez MD Feb 18, 2018 17:29
[2018-02-18] MEDS ORDERED: Milk of Magnesia 30ml Ud ORAL PRN (17:30)
[2018-02-18] MEDS ORDERED: Morphine Sulfate 2mg/ml Inj IVP PRN ×2 (17:30)
[2018-02-18] MEDS ORDERED: Midazolam 2mg/2ml Inj ONE (17:31)
[2018-02-18] MEDS ORDERED: ePHEDrine 50mg/ml Inj ONE (18:00)
[2018-02-18] MEDS ORDERED: Tranexamic Acid 1,000 MG in NS 65 ML IVPB ONE (18:15)
--- NOTE | 2018-02-18 19:48 | Internal Med Progress Note ---
Subjective Date of Service: Feb 18, 2018 Physician Name Aquilino Matthews Attending Physician Carlos Alberto Berkowitz MD Current Medications Medications (Trade) Dose Ordered Sig/Yi Route PRN Reason Start Time Stop Time Status Last Admin Dose Admin Acetaminophen (Tylenol) 650 mg Q4H PRN ORAL fever 02/16/18 14:30 03/18/18 14:29 Acetaminophen/ Hydrocodone Bitart ([place] 5/325) 1 tab Q1H PRN ORAL Mild Pain (Pain Scale 1-3) 02/18/18 17:15 02/18/18 20:00 Acetaminophen/ Hydrocodone Bitart ([place] 5/325) 1 tab Q6H PRN ORAL For PAIN 1-3 02/16/18 14:30 02/23/18 14:29 02/16/18 18:52 Acetaminophen/ Hydrocodone Bitart ([place] 5/325) 2 tab Q6H PRN ORAL Severe Pain (Pain Scale 7-10) 02/18/18 17:30 02/25/18 17:29 UNV Acetaminophen/ Hydrocodone Bitart ([place] 7.5/325) 1 tab Q1H PRN ORAL Moderate Pain (Pain Scale 4-6) 02/18/18 17:15 02/18/18 20:00 Al Hydroxide/Mg Hydroxide (Mylanta II) 30 ml Q6H PRN ORAL dyspepsia 02/16/18 14:23 03/18/18 14:22 Al Hydroxide/Mg Hydroxide (Mylanta) 15 ml Q1H PRN ORAL gi upset 02/18/18 17:15 02/18/18 20:00 Atenolol (Tenormin) 25 mg DAILY ORAL 02/17/18 09:00 03/19/18 08:59 02/17/18 08:41 Atropine Sulfate (Atropine 0.4mg/ ml) 0.5 mg Q5M PRN IVP HR<40 02/18/18 17:15 02/18/18 20:00 Cefazolin Sodium 2 gm/Dextrose 110 ml @ 220 mls/hr EVERY 8 HOURS IV 02/18/18 22:00 02/19/18 06:29 UNV Ceftriaxone Sodium 1 gm/ Dextrose 55 ml @ 110 mls/hr Q24H IVPB 02/18/18 12:30 02/25/18 12:29 02/18/18 13:07 Clonazepam (KlonoPIN) 0.5 mg Q6HR ORAL 02/16/18 18:00 02/23/18 17:59 02/18/18 05:39 Dextrose (Dextrose 50%) 25 ml Q30M PRN IV Hypoglycemia 02/16/18 14:30 03/18/18 14:25 Dextrose (Dextrose 50%) 50 ml Q30M PRN IV hypoglycemia 02/16/18 14:30 03/18/18 14:29 Dextrose/ Electrolytes 1,000 ml @ 75 mls/hr [id number] IV 02/18/18 17:28 03/20/18 17:27 UNV Dextrose/Sodium Chloride 1,000 ml @ 50 mls/hr Q20H IV 02/16/18 14:22 03/18/18 14:21 02/17/18 22:07 Diphenhydramine HCl (Benadryl) 25 mg Q15M PRN IVP Itching 02/18/18 17:15 02/18/18 20:00 Docusate Sodium (Colace) 100 mg THREE TIMES A DAY ORAL 02/18/18 18:00 03/20/18 17:59 UNV Fentanyl Citrate (Sublimaze 100 mcg/2 mL) 25 mcg Q10M PRN IV Moderate Pain (Pain Scale 4-6) 02/18/18 17:15 02/18/18 20:00 Ferrous Sulfate (Feosol) 325 mg THREE TIMES A DAY ORAL 02/18/18 18:00 03/20/18 17:59 UNV Haloperidol Lactate (Haldol) 5 mg Q4H PRN IM Agitation 02/16/18 18:45 03/18/18 18:44 02/17/18 04:36 Heparin Sodium (Porcine) (Heparin 5000 units/ml) 5,000 units EVERY 12 HOURS SUBQ 02/16/18 21:00 03/18/18 20:59 02/17/18 20:48 Hydralazine HCl (Apresoline) 5 mg Q30M PRN IV SBP>160 / DBP>90 02/18/18 17:15 02/18/18 20:00 Hydromorphone HCl (Dilaudid) 0.5 mg Q15M PRN IVP Severe Pain (Pain Scale 7-10) 02/18/18 17:15 02/18/18 20:00 Ketorolac Tromethamine (Toradol 30mg) 15 mg Q1H PRN IV Moderate Breakthru Pain (5-7) 02/18/18 17:15 02/18/18 20:00 Ketorolac Tromethamine (Toradol 30mg) 30 mg Q1H PRN IV Severe Breakthru Pain (>7) 02/18/18 17:15 02/18/18 20:00 Labetalol HCl (Normodyne) 5 mg Q10M PRN IV SBP>160 / DBP>90 02/18/18 17:15 02/18/18 20:00 Lactated Ringer's 1,000 ml @ 10 mls/hr Q24H IVLG 02/18/18 17:01 02/18/18 20:00 Lorazepam (Ativan 2mg/ml 1ml) 0.5 mg Q4H PRN IV For Anxiety 02/16/18 14:30 02/23/18 14:29 02/18/18 12:57 Lorazepam (Ativan 2mg/ml 1ml) 1 mg Q15M PRN IV For Anxiety 02/18/18 17:15 02/18/18 20:00 Losartan Potassium (Cozaar) 25 mg DAILY ORAL 02/17/18 09:00 03/19/18 08:59 02/17/18 08:42 Magnesium Hydroxide (Mom) 30 ml DAILYPRN PRN ORAL Constipation 02/18/18 17:30 03/20/18 17:29 UNV Meperidine HCl (Demerol) 25 mg Q5M PRN IVP Shivering.May repeat x 1 02/18/18 17:15 02/18/18 20:00 Midazolam HCl (Versed 2mg/2ml vial) 1 mg Q15M PRN IVP For Anxiety 02/18/18 17:15 02/18/18 20:00 Morphine Sulfate (Morphine Sulfate) 1 mg Q3H PRN IVP Pain scale 1-3 02/18/18 17:30 02/25/18 17:29 UNV Morphine Sulfate (Morphine Sulfate) 2 mg Q3H PRN IVP Moderate Pain (Pain Scale 4-6) 02/18/18 17:30 02/25/18 17:29 UNV Morphine Sulfate (Morphine Sulfate) 2 mg Q4H PRN IVP For Pain 4-6 02/16/18 14:30 02/23/18 14:29 Morphine Sulfate (Morphine Sulfate) 4 mg Q4H PRN IVP For Pain 7-10 02/16/18 14:30 02/23/18 14:29 02/18/18 05:40 Ondansetron HCl (Zofran) 4 mg Q1H PRN IVP Nausea & Vomiting 02/18/18 17:15 02/18/18 20:00 Ondansetron HCl (Zofran) 4 mg Q6H PRN IVP Nausea & Vomiting 02/16/18 14:30 03/18/18 14:29 Oxycodone/ Acetaminophen ([place] 5-325) 1 tab Q1H PRN ORAL Severe Pain (Pain Scale 7-10) 02/18/18 17:15 02/18/18 20:00 Polyethylene Glycol (Miralax) 17 gm HSPRN PRN ORAL Constipation 02/16/18 14:30 03/18/18 14:29 Prochlorperazine (Compazine) 10 mg Q6H PRN IVP Nausea & Vomiting 02/18/18 17:30 03/20/18 17:29 UNV Quetiapine Fumarate (SEROquel) 12.5 mg Q4H PRN ORAL agitation 02/17/18 14:45 03/19/18 14:44 Quetiapine Fumarate (SEROquel) 25 mg QHS ORAL 02/17/18 00:30 03/19/18 00:29 02/17/18 20:47 Trazodone HCl (Desyrel) 50 mg BEDTIME ORAL 02/16/18 21:00 03/18/18 20:59 02/17/18 20:47 Zolpidem Tartrate (Ambien) 5 mg HSPRN PRN ORAL Insomnia 02/16/18 14:30 02/23/18 14:29 02/18/18 00:14 Allergies: Coded Allergies: No Known Allergies (Unverified , 08/10/13) ROS Limited/Unobtainable: No Constitutional: Reports: no symptoms HEENT: Reports: no symptoms Cardiovascular: Reports: no symptoms Respiratory: Reports: no symptoms Gastrointestinal/Abdominal: Reports: no symptoms Genitourinary: Reports: no symptoms Neurologic/Psychiatric: Reports: no symptoms Subjective 82 YO F admitted with right hip pain; S/P fall. Now right femoral neck fracture. Cover for Int Med-Dr Berkowitz. S/P ORIF right hip fracture 02/18/18 Objective Last Vital Signs Date Time Temp Pulse Resp B/P (MAP) Pulse Ox O2 Delivery O2 Flow Rate FiO2 02/18/18 19:35 98.8 77 13 127/65 100 Nasal Cannula 3 98.8 Laboratory Tests Test 02/18/18 10:20 White Blood Count 8.0 K/UL (4.8-10.8) Red Blood Count 3.31 M/UL (4.20-5.40) L Hemoglobin 9.6 G/DL (12.0-16.0) L Hematocrit 30.7 % (37.0-47.0) L Mean Corpuscular Volume 93 FL (80-99) Mean Corpuscular Hemoglobin 28.9 PG (27.0-31.0) Mean Corpuscular Hemoglobin Concent 31.1 G/DL (32.0-36.0) L Red Cell Distribution Width 17.1 % (11.6-14.8) H Platelet Count 453 K/UL (150-450) H Mean Platelet Volume 7.1 FL (6.5-10.1) Neutrophils (%) (Auto) 76.9 % (45.0-75.0) H Lymphocytes (%) (Auto) 14.2 % (20.0-45.0) L Monocytes (%) (Auto) 7.8 % (1.0-10.0) Eosinophils (%) (Auto) 0.7 % (0.0-3.0) Basophils (%) (Auto) 0.3 % (0.0-2.0) Sodium Level 143 MMOL/L (136-145) Potassium Level 3.8 MMOL/L (3.5-5.1) Chloride Level 108 MMOL/L (98-107) H Carbon Dioxide Level 28 MMOL/L (21-32) Anion Gap 8 mmol/L (5-15) Blood Urea Nitrogen 12 mg/dL (7-18) Creatinine 0.8 MG/DL (0.55-1.30) Estimat Glomerular Filtration Rate mL/min (>60) Glucose Level 139 MG/DL (74-106) H Calcium Level 8.7 MG/DL (8.5-10.1) Microbiology Date/Time Source Procedure Growth Status 02/16/18 10:45 Urine,Clean Catch Urine Culture - Final Escherichia Coli Complete Intake and Output 02/17/18 02/18/18 19:00 07:00 Intake Total 500 ml 550 ml Balance 500 ml 550 ml IV Total 500 ml 550 ml # Voids 3 7 Objective PHYSICAL EXAMINATION: GENERAL: The patient is well-developed and well-nourished thin-appearing white female, in no apparent distress. HEENT: Eyes, pupils are equal and responsive to light and accommodation. Extraocular movements are intact. NECK: Supple without lymphadenopathy. CHEST: Lungs are clear to auscultation bilaterally without wheezes or rales. CARDIOVASCULAR: Regular rhythm and rate. S1 and S2 are normal without murmurs, rubs, or gallops. ABDOMEN: Soft, nontender, and nondistended. Positive bowel sounds. No evidence of hepatosplenomegaly. Currently, no rebound or guarding noted. EXTREMITIES: Negative for clubbing, cyanosis, or edema. Pain to palp right hip RECTAL/GENITAL: Refused. NEUROLOGIC: Cranial nerves II through XII are grossly intact without focal deficits. Motor strength is 5/5 bilaterally. Deep tendon reflexes are 2+ plantar. Assessment/Plan Problem List: (1) Hypercholesterolemia (2) CAD (coronary artery disease) Assessment & Plan: see dardiology note (3) Fracture of femoral neck, right, closed Assessment & Plan: S/P ORIF 02/18/18-see ortho note. (4) HTN (hypertension) (5) Sick sinus syndrome Assessment & Plan: S/P pacemaker (6) Pacemaker Status: not improved Aquilino Matthews MD Feb 18, 2018 19:48
[2018-02-18] MEDS: Docusate 100mg cap ORAL SCH (22:02)
[2018-02-18] MEDS: TraZODone 50mg tab ORAL SCH (22:02)
--- NOTE | 2018-02-18 22:06 | Psych Consult Progress Note ---
Psych Consult Progress Note Consult 02/16/18 encephalopathy due to metabolic condition -seroquel prn -provided ro/st Vital Signs Last 24 Hour Vital Signs Date Time Temp Pulse Resp B/P (MAP) Pulse Ox O2 Delivery O2 Flow Rate FiO2 02/18/18 19:40 98.8 80 15 118/58 100 Nasal Cannula 3 98.8 02/18/18 19:35 98.8 77 13 127/65 100 Nasal Cannula 3 98.8 02/18/18 19:20 84 12 121/56 100 Nasal Cannula 3 02/18/18 19:10 80 18 114/54 100 Simple Mask 6 02/18/18 18:59 78 13 115/55 100 Simple Mask 6 02/18/18 18:54 75 15 118/56 100 Simple Mask 6 02/18/18 18:54 209.7 82 16 100 02/18/18 18:51 98.7 78 26 142/71 100 Simple Mask 6 98.7 02/18/18 15:54 98.6 78 22 152/70 (97) 99 98.6 02/18/18 12:09 97.7 81 20 155/75 (101) 97 97.7 02/18/18 09:00 Room Air 02/18/18 08:22 94.1 95 19 157/91 (113) 100 94.1 02/18/18 04:00 97.3 85 20 154/80 (104) 99 97.3 02/18/18 00:00 97.9 80 22 148/73 (98) 99 97.9 Labs Laboratory Tests Test 02/18/18 10:20 White Blood Count 8.0 K/UL (4.8-10.8) Red Blood Count 3.31 M/UL (4.20-5.40) L Hemoglobin 9.6 G/DL (12.0-16.0) L Hematocrit 30.7 % (37.0-47.0) L Mean Corpuscular Volume 93 FL (80-99) Mean Corpuscular Hemoglobin 28.9 PG (27.0-31.0) Mean Corpuscular Hemoglobin Concent 31.1 G/DL (32.0-36.0) L Red Cell Distribution Width 17.1 % (11.6-14.8) H Platelet Count 453 K/UL (150-450) H Mean Platelet Volume 7.1 FL (6.5-10.1) Neutrophils (%) (Auto) 76.9 % (45.0-75.0) H Lymphocytes (%) (Auto) 14.2 % (20.0-45.0) L Monocytes (%) (Auto) 7.8 % (1.0-10.0) Eosinophils (%) (Auto) 0.7 % (0.0-3.0) Basophils (%) (Auto) 0.3 % (0.0-2.0) Sodium Level 143 MMOL/L (136-145) Potassium Level 3.8 MMOL/L (3.5-5.1) Chloride Level 108 MMOL/L (98-107) H Carbon Dioxide Level 28 MMOL/L (21-32) Anion Gap 8 mmol/L (5-15) Blood Urea Nitrogen 12 mg/dL (7-18) Creatinine 0.8 MG/DL (0.55-1.30) Estimat Glomerular Filtration Rate mL/min (>60) Glucose Level 139 MG/DL (74-106) H Calcium Level 8.7 MG/DL (8.5-10.1) Medications Current Medications Medications (Trade) Dose Ordered Sig/Yi Route PRN Reason Start Time Stop Time Status Last Admin Dose Admin Acetaminophen (Tylenol) 650 mg Q4H PRN ORAL fever 02/16/18 14:30 03/18/18 14:29 Acetaminophen/ Hydrocodone Bitart ([place] 5/325) 1 tab Q6H PRN ORAL For PAIN 1-3 02/16/18 14:30 02/23/18 14:29 02/16/18 18:52 Acetaminophen/ Hydrocodone Bitart ([place] 5/325) 2 tab Q6H PRN ORAL Severe Pain (Pain Scale 7-10) 02/18/18 17:30 02/25/18 17:29 Al Hydroxide/Mg Hydroxide (Mylanta II) 30 ml Q6H PRN ORAL dyspepsia 02/16/18 14:23 03/18/18 14:22 Atenolol (Tenormin) 25 mg DAILY ORAL 02/17/18 09:00 03/19/18 08:59 02/17/18 08:41 Cefazolin Sodium 50 ml @ 100 mls/hr Q8H IV 02/19/18 01:00 02/19/18 09:29 Ceftriaxone Sodium 1 gm/ Dextrose 55 ml @ 110 mls/hr Q24H IVPB 02/18/18 12:30 02/25/18 12:29 02/18/18 13:07 Clonazepam (KlonoPIN) 0.5 mg Q6HR ORAL 02/16/18 18:00 02/23/18 17:59 02/18/18 22:04 Dextrose (Dextrose 50%) 25 ml Q30M PRN IV Hypoglycemia 02/16/18 14:30 03/18/18 14:25 Dextrose (Dextrose 50%) 50 ml Q30M PRN IV hypoglycemia 02/16/18 14:30 03/18/18 14:29 Dextrose/ Electrolytes 1,000 ml @ 75 mls/hr [id number] IV 02/18/18 21:00 03/20/18 20:59 Docusate Sodium (Colace) 100 mg THREE TIMES A DAY ORAL 02/18/18 18:00 03/20/18 17:59 02/18/18 22:02 Ferrous Sulfate (Feosol) 325 mg THREE TIMES A DAY ORAL 02/18/18 18:00 03/20/18 17:59 02/18/18 22:02 Haloperidol Lactate (Haldol) 5 mg Q4H PRN IM Agitation 02/16/18 18:45 03/18/18 18:44 02/17/18 04:36 Heparin Sodium (Porcine) (Heparin 5000 units/ml) 5,000 units EVERY 12 HOURS SUBQ 02/16/18 21:00 03/18/18 20:59 02/18/18 22:03 Lorazepam (Ativan 2mg/ml 1ml) 0.5 mg Q4H PRN IV For Anxiety 02/16/18 14:30 02/23/18 14:29 02/18/18 12:57 Losartan Potassium (Cozaar) 25 mg DAILY ORAL 02/17/18 09:00 03/19/18 08:59 02/17/18 08:42 Magnesium Hydroxide (Mom) 30 ml DAILYPRN PRN ORAL Constipation 02/18/18 17:30 03/20/18 17:29 Morphine Sulfate (Morphine Sulfate) 1 mg Q3H PRN IVP Pain scale 1-3 02/18/18 17:30 02/25/18 17:29 Morphine Sulfate (Morphine Sulfate) 2 mg Q3H PRN IVP Moderate Pain (Pain Scale 4-6) 02/18/18 17:30 02/25/18 17:29 Morphine Sulfate (Morphine Sulfate) 4 mg Q4H PRN IVP For Pain 7-10 02/16/18 14:30 02/23/18 14:29 02/18/18 05:40 Ondansetron HCl (Zofran) 4 mg Q6H PRN IVP Nausea & Vomiting 02/16/18 14:30 03/18/18 14:29 Polyethylene Glycol (Miralax) 17 gm HSPRN PRN ORAL Constipation 02/16/18 14:30 03/18/18 14:29 Prochlorperazine (Compazine) 10 mg Q6H PRN IVP Nausea & Vomiting 02/18/18 17:30 03/20/18 17:29 Quetiapine Fumarate (SEROquel) 12.5 mg Q4H PRN ORAL agitation 02/17/18 14:45 03/19/18 14:44 Quetiapine Fumarate (SEROquel) 25 mg QHS ORAL 02/17/18 00:30 03/19/18 00:29 02/18/18 22:02 Trazodone HCl (Desyrel) 50 mg BEDTIME ORAL 02/16/18 21:00 03/18/18 20:59 02/18/18 22:02 Zolpidem Tartrate (Ambien) 5 mg HSPRN PRN ORAL Insomnia 02/16/18 14:30 02/23/18 14:29 02/18/18 00:14 Problems: (1) Psychosis (2) encephalopathy due to Lena Bob MD Feb 18, 2018 22:06
--- NOTE | 2018-02-18 22:07 | General Progress Note ---
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 SNOMED: 74075284 (2) encephalopathy due to Status: stable, progressing Assessment/Plan encephalopathy due to metabolic condition -seroquel prn -provided ro/st Subjective Date patient seen: Feb 18, 2018 Neurologic/Psychiatric: Reports: anxiety, depressed, emotional problems Allergies: Coded Allergies: No Known Allergies (Unverified , 08/10/13) Objective Last 24 Hour Vital Signs Date Time Temp Pulse Resp B/P (MAP) Pulse Ox O2 Delivery O2 Flow Rate FiO2 02/18/18 19:40 98.8 80 15 118/58 100 Nasal Cannula 3 98.8 02/18/18 19:35 98.8 77 13 127/65 100 Nasal Cannula 3 98.8 02/18/18 19:20 84 12 121/56 100 Nasal Cannula 3 02/18/18 19:10 80 18 114/54 100 Simple Mask 6 02/18/18 18:59 78 13 115/55 100 Simple Mask 6 02/18/18 18:54 75 15 118/56 100 Simple Mask 6 02/18/18 18:54 209.7 82 16 100 02/18/18 18:51 98.7 78 26 142/71 100 Simple Mask 6 98.7 02/18/18 15:54 98.6 78 22 152/70 (97) 99 98.6 02/18/18 12:09 97.7 81 20 155/75 (101) 97 97.7 02/18/18 09:00 Room Air 02/18/18 08:22 94.1 95 19 157/91 (113) 100 94.1 02/18/18 04:00 97.3 85 20 154/80 (104) 99 97.3 02/18/18 00:00 97.9 80 22 148/73 (98) 99 97.9 Intake and Output 02/17/18 02/18/18 19:00 07:00 Intake Total 500 ml 550 ml Balance 500 ml 550 ml IV Total 500 ml 550 ml # Voids 3 7 Laboratory Tests 02/18/18 10:20: White Blood Count 8.0, Red Blood Count 3.31L, Hemoglobin 9.6L, Hematocrit 30.7L , Mean Corpuscular Volume 93, Mean Corpuscular Hemoglobin 28.9, Mean Corpuscular Hemoglobin Concent 31.1L, Red Cell Distribution Width 17.1H, Platelet Count 453H, Mean Platelet Volume 7.1, Neutrophils (%) (Auto) 76.9H, Lymphocytes (%) (Auto) 14.2L, Monocytes (%) (Auto) 7.8, Eosinophils (%) (Auto) 0.7, Basophils (%) (Auto) 0.3, Sodium Level 143, Potassium Level 3.8, Chloride Level 108H, Carbon Dioxide Level 28, Anion Gap 8, Blood Urea Nitrogen 12, Creatinine 0.8, Estimat Glomerular Filtration Rate , Glucose Level 139H, Calcium Level 8.7 Height (Feet): 5 Height (Inches): 6.00 Weight (Pounds): 120 General Appearance: no apparent distress, alert, confused Lena Bob MD Feb 18, 2018 22:07
[2018-02-18] MEDS: D5 1/2NS w/KCl 20mEq 1,000 ML IV SCH (22:25)
--- NOTE | 2018-02-18 23:30 | Consultation ---
DATE OF CONSULTATION: 02/16/2018 NOTE: "POOR AUDIO QUALITY" ORTHOPEDIC CONSULTATION CONSULTING PHYSICIAN: Shen Lopez M.D. CHIEF COMPLAINT: Right hip pain. HISTORY OF PRESENT ILLNESS: The patient is a pleasant female, who sustained a mechanical fall. She was brought to the ER where she was diagnosed with a hip fracture. Orthopedic consultation was obtained for further care and recommendation. She has history of multiple falls and generalized weakness. PAST MEDICAL HISTORY: Significant for diabetes, hypertension, asthma, and dementia. PAST SURGICAL HISTORY: Pacemaker placement. MEDICATIONS: Reviewed from the intake chart. ALLERGIES: None. SOCIAL HISTORY: The patient resides with her . FAMILY HISTORY: Noncontributory. PHYSICAL EXAMINATION: GENERAL: The patient is alert. She is resting comfortably at this time in bed. EXTREMITIES: She has pain with internal and external rotation of the right leg. The right leg is shortened and internally rotated. DIAGNOSTIC DATA: Imaging studies showed displaced femoral neck fracture. ASSESSMENT: Right displaced femoral neck fracture. DISCUSSION: At this point, what I recommend is to proceed with right hip hemiarthroplasty. She will be medically optimized of surgery is tomorrow, Thursday. Risks, limitations, expectations, and complications of procedure were discussed in detail with her family, Jo Ann who is her daughter. Shen Lopez M.D. DR: Kayla JOB#: [id number] CC:
[2018-02-19] VITALS: BP 144/81
[2018-02-19] MEDS: Haloperidol 5mg/ml Inj IM PRN ×2 (02:00→09:03)
[2018-02-19] MEDS: ceFAZolin 2gm/50ml Premix 50 ML IV SCH ×2 (02:07→09:00)
[2018-02-19 04:00] VITALS: BP 159/94
--- NOTE | 2018-02-19 04:00 | Progress Note ---
DATE: 02/17/2018 SUBJECTIVE: No issues overnight. OBJECTIVE: The patient is resting comfortably at this time in bed. Stable vital signs. Right hip examination shows internally rotated and shortened. Posterior calf is soft. Dorsalis pedis +2. ASSESSMENT: Right displaced femoral neck fracture. DISCUSSION: At this point, we will follow up with Cardiology consult. She is optimized for surgery. We will proceed accordingly. She should be able to have surgery tomorrow. She will be made NPO after midnight in anticipation of surgery. Shen Lopez M.D. DR: WILLIAM JOB#: [id number] CC:
--- NOTE | 2018-02-19 05:15 | Operative Note - Dictated ---
DATE OF OPERATION: 02/18/2018 PREOPERATIVE DIAGNOSIS: Right displaced femoral neck fracture. POSTOPERATIVE DIAGNOSIS: Right displaced femoral neck fracture. PROCEDURE: Right hip hemiarthroplasty. SURGEON: Shen Lopez M.D. ANESTHESIA: General. INDICATION FOR PROCEDURE: A pleasant female, who sustained mechanical fall. She was diagnosed with displaced femoral neck fracture. Internal fixation with right hip hemiarthroplasty. Risks, limitations, expectations, and complications of procedure were discussed in detail. All questions were addressed. DESCRIPTION OF PROCEDURE: After informed consent was obtained, the patient was brought to the operating room. We placed the patient under general anesthesia. The patient was then carefully placed in lateral decubitus position. Right hip was prepped and draped in sterile manner. Time-out was performed. Posterolateral approach to the posterior hip was performed. The head was removed. Sequential broaching up to 10 was performed. A 10 standard 0 [id number] combo was selected. Hip was reduced, flexed to 120 degrees, 90 degrees flexion, and internal rotation to 60 degrees. Extension and external rotation were stable and this would be clinically equal. She had a little bit laxity to the soft tissue and therefore, we felt that implant selection was reasonable. Therefore, the trial components were removed. Final implants were packed into place. Hip flexed to 130 degrees, 90 degrees flexion, and internal rotation to 60 degrees. Extension and external rotation were stable. Leg lengths were clinically equal. Good soft tissue tensioning. At this point, the skin was closed with #1 Vicryl suture, 2-0 Vicryl suture, and 3-0 Monocryl suture. Steri-Strips and sterile dressing were applied. The patient was awoken and taken to recovery room with stable vital signs. ESTIMATED BLOOD LOSS: Minimal. COMPLICATIONS: None. SPECIMENS: None. IMPLANTS: Include consensus size 10 stem, high offset stem with a 0-47 bipolar head. Shen Lopez M.D. DR: Spencer JOB#: [id number] CC: KRISSY
[2018-02-19] MEDS: clonazePAM 0.5mg tab ORAL SCH ×5 (06:05→23:15)
[2018-02-19 08:00] VITALS: BP 142/96
[2018-02-19] MEDS ORDERED: Norco 5mg/325mg tab ORAL PRN (09:06)
--- NOTE | 2018-02-19 09:12 | General Progress Note ---
Assessment/Plan Assessment/Plan (1) Right hip fracture (2) Right hip pain (3) S/p fall and right hip arthroplasty Patient to be continued on Morphine and [place] as needed. D/w Dr. Lynn and he concurred. Subjective Date patient seen: Feb 19, 2018 Time patient seen: 07:15 - am Allergies: Coded Allergies: No Known Allergies (Unverified , 08/10/13) Subjective REVIEW OF SYSTEMS: Denies rash, fever, chills, sweating, dizziness, drowsiness, blurred vision, sore throat, or change in her weight. No shortness of breath, chest pain, palpitations, or cough. She is complaining of right hip pain. SUBJECTIVE: Patient is s/p right hip hemiarthroplasty. She is in bed with at bed side. No signs of pain or distress at this time. Objective Last 24 Hour Vital Signs Date Time Temp Pulse Resp B/P (MAP) Pulse Ox O2 Delivery O2 Flow Rate FiO2 02/19/18 04:00 97.9 117 20 159/94 (115) 100 97.9 02/19/18 00:00 97.7 103 20 144/81 (102) 98 97.7 02/18/18 21:00 Room Air 02/18/18 20:00 97.4 88 17 130/62 (84) 97 97.4 02/18/18 19:40 98.8 80 15 118/58 100 Nasal Cannula 3 98.8 02/18/18 19:35 98.8 77 13 127/65 100 Nasal Cannula 3 98.8 02/18/18 19:20 84 12 121/56 100 Nasal Cannula 3 02/18/18 19:10 80 18 114/54 100 Simple Mask 6 02/18/18 18:59 78 13 115/55 100 Simple Mask 6 02/18/18 18:54 75 15 118/56 100 Simple Mask 6 02/18/18 18:54 209.7 82 16 100 02/18/18 18:51 98.7 78 26 142/71 100 Simple Mask 6 98.7 02/18/18 15:54 98.6 78 22 152/70 (97) 99 98.6 02/18/18 12:09 97.7 81 20 155/75 (101) 97 97.7 Intake and Output 02/18/18 02/19/18 19:00 07:00 Intake Total 880 ml 580 ml Output Total 125 ml Balance 755 ml 580 ml Intake Oral 480 ml IV Total 880 ml 100 ml Output Urine Total 100 ml Estimated Blood Loss 25 ml # Voids 4 Laboratory Tests 02/18/18 10:20: White Blood Count 8.0, Red Blood Count 3.31L, Hemoglobin 9.6L, Hematocrit 30.7L , Mean Corpuscular Volume 93, Mean Corpuscular Hemoglobin 28.9, Mean Corpuscular Hemoglobin Concent 31.1L, Red Cell Distribution Width 17.1H, Platelet Count 453H, Mean Platelet Volume 7.1, Neutrophils (%) (Auto) 76.9H, Lymphocytes (%) (Auto) 14.2L, Monocytes (%) (Auto) 7.8, Eosinophils (%) (Auto) 0.7, Basophils (%) (Auto) 0.3, Sodium Level 143, Potassium Level 3.8, Chloride Level 108H, Carbon Dioxide Level 28, Anion Gap 8, Blood Urea Nitrogen 12, Creatinine 0.8, Estimat Glomerular Filtration Rate , Glucose Level 139H, Calcium Level 8.7 Height (Feet): 5 Height (Inches): 6.00 Weight (Pounds): 120 Objective GENERAL: Alert and awake. LUNGS: Decreased breath sounds bilaterally. HEART: S1 and S2 regular. ABDOMEN: Benign. EXTREMITIES: No CCE noted. Right hip bandages placed. NEURO: No changes. Efren Beltran Feb 19, 2018 09:12
[2018-02-19] MEDS: Docusate 100mg cap ORAL SCH ×3 (09:52→17:47)
[2018-02-19] MEDS: Atenolol 25mg tab ORAL SCH (09:52)
[2018-02-19] MEDS: Losartan 25mg tab ORAL SCH (09:52)
[2018-02-19] MEDS: Norco 5mg/325mg tab ORAL PRN ×2 (09:53→19:55)
[2018-02-19] MEDS: Heparin 5000 units/ml inj SUBQ SCH ×2 (09:55→21:26)
--- NOTE | 2018-02-19 10:00 | 48 Hour Post Anesthesia Eval ---
Post Anesthesia Evaluation Procedure: R Hip Hemiarthroplasty Date of Evaluation: Feb 19, 2018 Time of Evaluation: 06:10 Blood Pressure Systolic: 159 0: 94 Pulse Rate: 117 Respiratory Rate: 20 Temperature (Fahrenheit): 97.9 O2 Sat by Pulse Oximetry: 100 Airway: patent Nausea: No Vomiting: No Pain Intensity: 0 Hydration Status: adequate Cardiopulmonary Status: at baseline Mental Status/LOC: patient returned to baseline Post-Anesthesia Complications: 0 Follow-up care needed: N/A - further care as per primary team Sagrario Peterson MD Feb 19, 2018 10:00
[2018-02-19 10:50] LABS: HEMATOCRIT 29.1 % (37.0-47.0); HEMOGLOBIN 9.2 G/DL (12.0-16.0); MEAN CORPUSCULAR VOLUME 91 FL (80-99); PLATELET COUNT 376 K/UL (150-450); RED BLOOD COUNT 3.19 M/UL (4.20-5.40); RED CELL DISTRIBUTION WIDTH 16.7 % (11.6-14.8); WHITE BLOOD COUNT 11.8 K/UL (4.8-10.8)
[2018-02-19] MEDS: D5 1/2NS w/KCl 20mEq 1,000 ML IV SCH ×2 (11:13→23:16)
[2018-02-19] MEDS: Morphine Sulfate 4mg/ml Inj (IV USE ONLY) IVP PRN (11:14)
[2018-02-19 11:17] LABS: ALANINE AMINOTRANSFERASE 26 U/L (12-78); ALBUMIN 2.8 G/DL (3.4-5.0); ALBUMIN/GLOBULIN RATIO 0.9 (1.0-2.7); ALKALINE PHOSPHATASE 51 U/L (46-116); ANION GAP 11 mmol/L (5-15); ASPARTATE AMINO TRANSFERASE 41 U/L (15-37); BILIRUBIN,TOTAL 0.9 MG/DL (0.2-1.0); BLOOD UREA NITROGEN 9 mg/dL (7-18); CALCIUM 8.4 MG/DL (8.5-10.1); CARBON DIOXIDE 23 MMOL/L (21-32); CHLORIDE 107 MMOL/L (98-107); CREATININE 0.8 MG/DL (0.55-1.30); PHOSPHORUS 2.5 MG/DL (2.5-4.9); POTASSIUM 3.5 MMOL/L (3.5-5.1); SODIUM 140 MMOL/L (136-145)
--- NOTE | 2018-02-19 11:22 | Diagnostic Imaging Report ---
Indication: Postoperative, status post right hip arthroplasty Technique: One view of the pelvis Comparison: 02/16/2018 Findings: Interim right hip hemiarthroplasty for repair of previously demonstrated subcapital fracture. Satisfactory anatomic alignment of the prosthesis. Gas within the soft tissues presumably reflects retained air from the surgical exposure. A Harris catheter is noted. Old healed fracture deformities of the left pubic bone are noted. Impression: Postoperative right hip. No unusual features
--- NOTE | 2018-02-19 12:13 | Pulmonology Progress Note ---
Assessment/Plan Problems: (1) Fracture of femoral neck, right, closed (2) Pacemaker (3) HTN (hypertension) (4) CAD (coronary artery disease) (5) Sick sinus syndrome (6) Hip fracture, right (7) Hypercholesterolemia Assessment/Plan doing better surgery done yesterday titrate cardiology meds symptomatic treatment pt/ot Subjective ROS Limited/Unobtainable: No Constitutional: Reports: no symptoms HEENT: Repors: no symptoms Respiratory: Reports: no symptoms Allergies: Coded Allergies: No Known Allergies (Unverified , 08/10/13) Objective Last 24 Hour Vital Signs Date Time Temp Pulse Resp B/P (MAP) Pulse Ox O2 Delivery O2 Flow Rate FiO2 02/19/18 11:14 97.9 02/19/18 10:23 97.9 02/19/18 10:00 208.2 117 20 100 02/19/18 09:53 97.9 02/19/18 09:52 142/96 02/19/18 09:52 63 142/96 02/19/18 08:00 97.5 63 20 142/96 (111) 100 97.5 02/19/18 04:00 97.9 117 20 159/94 (115) 100 97.9 02/19/18 00:00 97.7 103 20 144/81 (102) 98 97.7 02/18/18 21:00 Room Air 02/18/18 20:00 97.4 88 17 130/62 (84) 97 97.4 02/18/18 19:40 98.8 80 15 118/58 100 Nasal Cannula 3 98.8 02/18/18 19:35 98.8 77 13 127/65 100 Nasal Cannula 3 98.8 02/18/18 19:20 84 12 121/56 100 Nasal Cannula 3 02/18/18 19:10 80 18 114/54 100 Simple Mask 6 02/18/18 18:59 78 13 115/55 100 Simple Mask 6 02/18/18 18:54 75 15 118/56 100 Simple Mask 6 02/18/18 18:54 209.7 82 16 100 02/18/18 18:51 98.7 78 26 142/71 100 Simple Mask 6 98.7 02/18/18 15:54 98.6 78 22 152/70 (97) 99 98.6 Intake and Output 02/18/18 02/19/18 19:00 07:00 Intake Total 880 ml 580 ml Output Total 125 ml Balance 755 ml 580 ml Intake Oral 480 ml IV Total 880 ml 100 ml Output Urine Total 100 ml Estimated Blood Loss 25 ml # Voids 4 Objective General Appearance: WD/WN HEENT: normocephalic, anicteric Breasts: no masses Cardiovascular: normal peripheral pulses, regular rhythm Abdomen: soft, non tender, no organomegaly Extremities: no cyanosis Skin: no rash Laboratory Tests 02/19/18 09:50: White Blood Count 11.8H, Red Blood Count 3.19L, Hemoglobin 9.2L, Hematocrit 29.1L, Mean Corpuscular Volume 91, Mean Corpuscular Hemoglobin 28.7, Mean Corpuscular Hemoglobin Concent 31.5L, Red Cell Distribution Width 16.7H, Platelet Count 376, Mean Platelet Volume 6.8, Neutrophils (%) (Auto) , Lymphocytes (%) (Auto) , Monocytes (%) (Auto) , Eosinophils (%) (Auto) , Basophils (%) (Auto) , Differential Total Cells Counted 100, Neutrophils % ( Manual) 86H, Lymphocytes % (Manual) 8L, Monocytes % (Manual) 6, Eosinophils % ( Manual) 0, Basophils % (Manual) 0, Band Neutrophils 0, Platelet Estimate Adequate, Platelet Morphology Normal, Hypochromasia 2+, Anisocytosis 1+, Sodium Level 140, Potassium Level 3.5, Chloride Level 107, Carbon Dioxide Level 23, Anion Gap 11, Blood Urea Nitrogen 9, Creatinine 0.8, Estimat Glomerular Filtration Rate , Glucose Level 118H, Calcium Level 8.4L, Phosphorus Level 2.5, Magnesium Level 1.2L, Total Bilirubin 0.9, Aspartate Amino Transf (AST/SGOT) 41H , Alanine Aminotransferase (ALT/SGPT) 26, Alkaline Phosphatase 51, Total Protein 5.8L, Albumin 2.8L, Globulin 3.0, Albumin/Globulin Ratio 0.9L Current Medications Medications (Trade) Dose Ordered Sig/Yi Route PRN Reason Start Time Stop Time Status Last Admin Dose Admin Acetaminophen (Tylenol) 650 mg Q4H PRN ORAL fever 02/16/18 14:30 03/18/18 14:29 Acetaminophen/ Hydrocodone Bitart ([place] 5/325) 1 tab Q4H PRN ORAL Moderate Pain (Pain Scale 4-6) 02/19/18 09:06 02/26/18 09:05 Acetaminophen/ Hydrocodone Bitart ([place] 5/325) 1 tab Q6H PRN ORAL For PAIN 1-3 02/16/18 14:30 02/23/18 14:29 02/19/18 09:53 Al Hydroxide/Mg Hydroxide (Mylanta II) 30 ml Q6H PRN ORAL dyspepsia 02/16/18 14:23 03/18/18 14:22 Atenolol (Tenormin) 25 mg DAILY ORAL 02/17/18 09:00 03/19/18 08:59 02/19/18 09:52 Ceftriaxone Sodium 1 gm/ Dextrose 55 ml @ 110 mls/hr Q24H IVPB 02/18/18 12:30 02/25/18 12:29 02/18/18 13:07 Clonazepam (KlonoPIN) 0.5 mg Q6HR ORAL 02/16/18 18:00 02/23/18 17:59 02/19/18 11:13 Dextrose (Dextrose 50%) 25 ml Q30M PRN IV Hypoglycemia 02/16/18 14:30 03/18/18 14:25 Dextrose (Dextrose 50%) 50 ml Q30M PRN IV hypoglycemia 02/16/18 14:30 03/18/18 14:29 Dextrose/ Electrolytes 1,000 ml @ 75 mls/hr [id number] IV 02/18/18 21:00 03/20/18 20:59 02/19/18 11:13 Docusate Sodium (Colace) 100 mg THREE TIMES A DAY ORAL 02/18/18 18:00 03/20/18 17:59 02/19/18 09:52 Ferrous Sulfate (Feosol) 325 mg THREE TIMES A DAY ORAL 02/18/18 18:00 03/20/18 17:59 02/19/18 09:53 Haloperidol Lactate (Haldol) 5 mg Q4H PRN IM Agitation 02/16/18 18:45 03/18/18 18:44 02/19/18 09:03 Heparin Sodium (Porcine) (Heparin 5000 units/ml) 5,000 units EVERY 12 HOURS SUBQ 02/16/18 21:00 03/18/18 20:59 02/19/18 09:55 Lorazepam (Ativan 2mg/ml 1ml) 0.5 mg Q4H PRN IV For Anxiety 02/16/18 14:30 02/23/18 14:29 02/18/18 12:57 Losartan Potassium (Cozaar) 25 mg DAILY ORAL 02/17/18 09:00 03/19/18 08:59 02/19/18 09:52 Magnesium Hydroxide (Mom) 30 ml DAILYPRN PRN ORAL Constipation 02/18/18 17:30 03/20/18 17:29 Morphine Sulfate (Morphine Sulfate) 4 mg Q4H PRN IVP For Pain 7-10 02/16/18 14:30 02/23/18 14:29 02/19/18 11:14 Ondansetron HCl (Zofran) 4 mg Q6H PRN IVP Nausea & Vomiting 02/16/18 14:30 03/18/18 14:29 Polyethylene Glycol (Miralax) 17 gm HSPRN PRN ORAL Constipation 02/16/18 14:30 03/18/18 14:29 Prochlorperazine (Compazine) 10 mg Q6H PRN IVP Nausea & Vomiting 02/18/18 17:30 03/20/18 17:29 Quetiapine Fumarate (SEROquel) 12.5 mg Q4H PRN ORAL agitation 02/17/18 14:45 03/19/18 14:44 Quetiapine Fumarate (SEROquel) 25 mg QHS ORAL 02/17/18 00:30 03/19/18 00:29 02/18/18 22:02 Trazodone HCl (Desyrel) 50 mg BEDTIME ORAL 02/16/18 21:00 03/18/18 20:59 02/18/18 22:02 Zolpidem Tartrate (Ambien) 5 mg HSPRN PRN ORAL Insomnia 02/16/18 14:30 02/23/18 14:29 02/18/18 00:14 Rod Mancera MD Feb 19, 2018 12:12
--- NOTE | 2018-02-19 14:06 | Consultation ---
Consult Note Consult Note [id number] Antonio Rodrigez MD Feb 19, 2018 14:06
[2018-02-19] MEDS: LORazepam Inj 2mg/ml 1ml IV PRN ×2 (15:17→23:15)
--- NOTE | 2018-02-19 18:00 | Consultation ---
DATE OF CONSULTATION: 02/19/2018 INFECTIOUS DISEASE CONSULTATION CONSULTING PHYSICIAN: Antonio Rodrigez M.D. REFERRING PHYSICIAN: Carlos Alberto Berkowitz M.D. and Rod Mancera M.D. REASON FOR CONSULTATION: Evaluation of the patient for probable urinary tract infection. HISTORY OF PRESENT ILLNESS: The patient is an 82-year-old female with multiple medical problems who was admitted to this medical center after the patient had multiple falls at home and was found to have right femoral neck fracture. The patient underwent surgery yesterday. The patient has been confused since admission. I am not sure what the patient's baseline mental status; however, I tried to reach patient's family though unfortunately I was not able to reach anyone. According to latest notes less than a month ago, the patient was alert and oriented. The patient has positive urine culture. Infectious Diseases consultation requested for further evaluation of the patient and antibiotic management. PAST MEDICAL HISTORY: 1. Diabetes. 2. Hypertension. 3. Sick sinus syndrome. 4. . 5. History of non-ST elevation. 6. History of coronary artery bypass surgery. 7. History of pacemaker in 2017. 8. History of pacemaker implantation. ALLERGIES: No known drug allergies. SOCIAL HISTORY: The patient lives at home. FAMILY HISTORY: Unavailable. REVIEW OF SYSTEMS: Unobtainable. PHYSICAL EXAMINATION: VITAL SIGNS: Temperature 97.8, pulse 86, respiratory rate 18. HEENT: No pale conjunctivae. No icterus. NECK: No lymphadenopathy. CHEST: Clear. HEART: S1 and S2. ABDOMEN: Soft. EXTREMITIES: Incision site on the right hip is healing. No sign of erythema. NEUROLOGIC: Confused. LABORATORY AND DIAGNOSTIC DATA: White blood 11.8, hemoglobin 9.2, platelets 376. UA showed positive nitrites, 5 to 10 white blood cells. BUN 9 and creatinine 0.8. ALT, AST, alkaline phosphatase unremarkable. Urine culture is growing more than 100,000 colonies of E. coli. Chest x-ray, right perihilar infiltrate. CT of pelvis subcapital right femoral neck fracture. ASSESSMENT: The patient is an 82-year-old female with: 1. Probable urinary tract infection. Urine culture, E. coli. 2. Probable pneumonia. 3. Probable sepsis (history of several falls and altered level of consciousness), this may be due to an infectious process. 4. Right hip fracture status post ORIF. PLAN: 1. We will start patient on Rocephin 1 g daily for coverage of possible healthcare-associated pneumonia and hospital-acquired pneumonia/urinary tract infection. 2. Monitor CBC. 3. Monitor BMP. 4. Monitor cultures, urine and blood. 5. Based on the patient's clinical course and labs, we will do further recommendations. 6. Monitor chest x-ray. Thank you for this consultation. I will follow the patient with you during this hospital. Antonio Rodrigez M.D. DR: Ted JOB#: [id number] CC:
--- NOTE | 2018-02-19 20:20 | Internal Med Progress Note ---
Subjective Date of Service: Feb 19, 2018 Physician Name Aquilino Matthews Attending Physician Carlos Alberto Berkowitz MD Current Medications Medications (Trade) Dose Ordered Sig/Yi Route PRN Reason Start Time Stop Time Status Last Admin Dose Admin Acetaminophen (Tylenol) 650 mg Q4H PRN ORAL fever 02/16/18 14:30 03/18/18 14:29 Acetaminophen/ Hydrocodone Bitart ([place] 5/325) 1 tab Q4H PRN ORAL Moderate Pain (Pain Scale 4-6) 02/19/18 09:06 02/26/18 09:05 Acetaminophen/ Hydrocodone Bitart ([place] 5/325) 1 tab Q6H PRN ORAL For PAIN 1-3 02/16/18 14:30 02/23/18 14:29 02/19/18 19:55 Al Hydroxide/Mg Hydroxide (Mylanta II) 30 ml Q6H PRN ORAL dyspepsia 02/16/18 14:23 03/18/18 14:22 Atenolol (Tenormin) 25 mg DAILY ORAL 02/17/18 09:00 03/19/18 08:59 02/19/18 09:52 Ceftriaxone Sodium 1 gm/ Dextrose 55 ml @ 110 mls/hr Q24H IVPB 02/20/18 12:30 02/27/18 12:29 Clonazepam (KlonoPIN) 0.5 mg Q6HR ORAL 02/16/18 18:00 02/23/18 17:59 02/19/18 17:47 Dextrose (Dextrose 50%) 25 ml Q30M PRN IV Hypoglycemia 02/16/18 14:30 03/18/18 14:25 Dextrose (Dextrose 50%) 50 ml Q30M PRN IV hypoglycemia 02/16/18 14:30 03/18/18 14:29 Dextrose/ Electrolytes 1,000 ml @ 75 mls/hr [id number] IV 02/18/18 21:00 03/20/18 20:59 02/19/18 11:13 Docusate Sodium (Colace) 100 mg THREE TIMES A DAY ORAL 02/18/18 18:00 03/20/18 17:59 02/19/18 17:47 Ferrous Sulfate (Feosol) 325 mg THREE TIMES A DAY ORAL 02/18/18 18:00 03/20/18 17:59 02/19/18 17:47 Haloperidol Lactate (Haldol) 5 mg Q4H PRN IM Agitation 02/16/18 18:45 03/18/18 18:44 02/19/18 09:03 Heparin Sodium (Porcine) (Heparin 5000 units/ml) 5,000 units EVERY 12 HOURS SUBQ 02/16/18 21:00 03/18/18 20:59 02/19/18 09:55 Lorazepam (Ativan 2mg/ml 1ml) 0.5 mg Q4H PRN IV For Anxiety 02/16/18 14:30 02/23/18 14:29 02/19/18 15:17 Losartan Potassium (Cozaar) 25 mg DAILY ORAL 02/17/18 09:00 03/19/18 08:59 02/19/18 09:52 Magnesium Hydroxide (Mom) 30 ml DAILYPRN PRN ORAL Constipation 02/18/18 17:30 03/20/18 17:29 Morphine Sulfate (Morphine Sulfate) 4 mg Q4H PRN IVP For Pain 7-10 02/16/18 14:30 02/23/18 14:29 02/19/18 11:14 Ondansetron HCl (Zofran) 4 mg Q6H PRN IVP Nausea & Vomiting 02/16/18 14:30 03/18/18 14:29 Polyethylene Glycol (Miralax) 17 gm HSPRN PRN ORAL Constipation 02/16/18 14:30 03/18/18 14:29 Prochlorperazine (Compazine) 10 mg Q6H PRN IVP Nausea & Vomiting 02/18/18 17:30 03/20/18 17:29 Quetiapine Fumarate (SEROquel) 12.5 mg Q4H PRN ORAL agitation 02/17/18 14:45 03/19/18 14:44 Quetiapine Fumarate (SEROquel) 25 mg QHS ORAL 02/17/18 00:30 03/19/18 00:29 02/18/18 22:02 Trazodone HCl (Desyrel) 50 mg BEDTIME ORAL 02/16/18 21:00 03/18/18 20:59 02/18/18 22:02 Zolpidem Tartrate (Ambien) 5 mg HSPRN PRN ORAL Insomnia 02/16/18 14:30 10/9/18 14:29 02/18/18 00:14 Allergies: Coded Allergies: No Known Allergies (Unverified , 08/10/13) Subjective 82 YO F admitted with right hip pain; S/P fall. Now right femoral neck fracture. Cover for Int Med-Dr Berkowitz. S/P ORIF right hip fracture 02/18/18 Objective Last Vital Signs Date Time Temp Pulse Resp B/P (MAP) Pulse Ox O2 Delivery O2 Flow Rate FiO2 02/19/18 11:44 97.9 02/19/18 10:00 117 20 100 02/19/18 09:52 142/96 02/19/18 09:00 Room Air 02/18/18 19:40 3 Laboratory Tests Test 02/19/18 09:50 White Blood Count 11.8 K/UL (4.8-10.8) H Red Blood Count 3.19 M/UL (4.20-5.40) L Hemoglobin 9.2 G/DL (12.0-16.0) L Hematocrit 29.1 % (37.0-47.0) L Mean Corpuscular Volume 91 FL (80-99) Mean Corpuscular Hemoglobin 28.7 PG (27.0-31.0) Mean Corpuscular Hemoglobin Concent 31.5 G/DL (32.0-36.0) L Red Cell Distribution Width 16.7 % (11.6-14.8) H Platelet Count 376 K/UL (150-450) Mean Platelet Volume 6.8 FL (6.5-10.1) Neutrophils (%) (Auto) % (45.0-75.0) Lymphocytes (%) (Auto) % (20.0-45.0) Monocytes (%) (Auto) % (1.0-10.0) Eosinophils (%) (Auto) % (0.0-3.0) Basophils (%) (Auto) % (0.0-2.0) Differential Total Cells Counted 100 Neutrophils % (Manual) 86 % (45-75) H Lymphocytes % (Manual) 8 % (20-45) L Monocytes % (Manual) 6 % (1-10) Eosinophils % (Manual) 0 % (0-3) Basophils % (Manual) 0 % (0-2) Band Neutrophils 0 % (0-8) Platelet Estimate Adequate Platelet Morphology Normal Hypochromasia 2+ Anisocytosis 1+ Sodium Level 140 MMOL/L (136-145) Potassium Level 3.5 MMOL/L (3.5-5.1) Chloride Level 107 MMOL/L (98-107) Carbon Dioxide Level 23 MMOL/L (21-32) Anion Gap 11 mmol/L (5-15) Blood Urea Nitrogen 9 mg/dL (7-18) Creatinine 0.8 MG/DL (0.55-1.30) Estimat Glomerular Filtration Rate mL/min (>60) Glucose Level 118 MG/DL (74-106) H Calcium Level 8.4 MG/DL (8.5-10.1) L Phosphorus Level 2.5 MG/DL (2.5-4.9) Magnesium Level 1.2 MG/DL (1.8-2.4) L Total Bilirubin 0.9 MG/DL (0.2-1.0) Aspartate Amino Transf (AST/SGOT) 41 U/L (15-37) H Alanine Aminotransferase (ALT/SGPT) 26 U/L (12-78) Alkaline Phosphatase 51 U/L (46-116) Total Protein 5.8 G/DL (6.4-8.2) L Albumin 2.8 G/DL (3.4-5.0) L Globulin 3.0 g/dL Albumin/Globulin Ratio 0.9 (1.0-2.7) L Intake and Output 02/18/18 02/19/18 19:00 07:00 Intake Total 880 ml 580 ml Output Total 125 ml Balance 755 ml 580 ml Intake Oral 480 ml IV Total 880 ml 100 ml Output Urine Total 100 ml Estimated Blood Loss 25 ml # Voids 4 Objective PHYSICAL EXAMINATION: GENERAL: The patient is well-developed and well-nourished thin-appearing white female, in no apparent distress. HEENT: Eyes, pupils are equal and responsive to light and accommodation. Extraocular movements are intact. NECK: Supple without lymphadenopathy. CHEST: Lungs are clear to auscultation bilaterally without wheezes or rales. CARDIOVASCULAR: Regular rhythm and rate. S1 and S2 are normal without murmurs, rubs, or gallops. ABDOMEN: Soft, nontender, and nondistended. Positive bowel sounds. No evidence of hepatosplenomegaly. Currently, no rebound or guarding noted. EXTREMITIES: Negative for clubbing, cyanosis, or edema. Pain to palp right hip RECTAL/GENITAL: Refused. NEUROLOGIC: Cranial nerves II through XII are grossly intact without focal deficits. Motor strength is 5/5 bilaterally. Deep tendon reflexes are 2+ plantar. Assessment/Plan Problem List: (1) Hypercholesterolemia (2) CAD (coronary artery disease) Assessment & Plan: see dardiology note (3) Fracture of femoral neck, right, closed Assessment & Plan: S/P ORIF 02/18/18-see ortho note. (4) HTN (hypertension) (5) Sick sinus syndrome Assessment & Plan: S/P pacemaker (6) Pacemaker Status: progressing Aquilino Matthews MD Feb 19, 2018 20:20
[2018-02-19 20:22] VITALS: BP 158/96
[2018-02-19] MEDS: TraZODone 50mg tab ORAL SCH (21:24)
[2018-02-19 23:30] VITALS: BP 129/76
[2018-02-20 04:00] VITALS: BP 138/82
[2018-02-20] MEDS: Norco 5mg/325mg tab ORAL PRN (05:00)
[2018-02-20] MEDS: clonazePAM 0.5mg tab ORAL SCH ×4 (05:00→23:44)
[2018-02-20 08:00] VITALS: BP 137/82
[2018-02-20 08:06] LABS: BASOPHILS % (AUTO) 0.5 % (0.0-2.0); EOSINOPHILS % (AUTO) 0.1 % (0.0-3.0); HEMATOCRIT 32.7 % (37.0-47.0); HEMOGLOBIN 10.5 G/DL (12.0-16.0); LYMPHOCYTES % (AUTO) 9.3 % (20.0-45.0); MEAN CORPUSCULAR VOLUME 91 FL (80-99); MONOCYTES % (AUTO) 5.8 % (1.0-10.0); NEUTROPHILS % (AUTO) 84.3 % (45.0-75.0); PLATELET COUNT 324 K/UL (150-450); RED BLOOD COUNT 3.58 M/UL (4.20-5.40); RED CELL DISTRIBUTION WIDTH 17.1 % (11.6-14.8); WHITE BLOOD COUNT 11.8 K/UL (4.8-10.8)
[2018-02-20 08:35] LABS: IRON 14 ug/dL (50-175); TOTAL IRON BINDING CAPACITY 216 ug/dL (250-450)
[2018-02-20 08:36] LABS: % IRON SATURATION 6 % (15-50)
[2018-02-20 08:44] LABS: INR 1.1 (0.9-1.1)
[2018-02-20] MEDS: Losartan 25mg tab ORAL SCH (09:22)
[2018-02-20] MEDS: Docusate 100mg cap ORAL SCH ×3 (09:22→17:04)
[2018-02-20] MEDS: Atenolol 25mg tab ORAL SCH (09:23)
[2018-02-20] MEDS: Heparin 5000 units/ml inj SUBQ SCH ×2 (09:24→21:56)
[2018-02-20 10:03] LABS: ALANINE AMINOTRANSFERASE 24 U/L (12-78); ALBUMIN 2.6 G/DL (3.4-5.0); ALBUMIN/GLOBULIN RATIO 0.8 (1.0-2.7); ALKALINE PHOSPHATASE 56 U/L (46-116); ANION GAP 11 mmol/L (5-15); ASPARTATE AMINO TRANSFERASE 39 U/L (15-37); BILIRUBIN,TOTAL 0.7 MG/DL (0.2-1.0); BLOOD UREA NITROGEN 8 mg/dL (7-18); CALCIUM 8.5 MG/DL (8.5-10.1); CARBON DIOXIDE 24 MMOL/L (21-32); CHLORIDE 108 MMOL/L (98-107); CREATININE 0.8 MG/DL (0.55-1.30); PHOSPHORUS 2.5 MG/DL (2.5-4.9); POTASSIUM 3.4 MMOL/L (3.5-5.1); SODIUM 143 MMOL/L (136-145)
[2018-02-20 10:42] LABS: LACTATE DEHYDROGENASE 461 U/L (81-234)
--- NOTE | 2018-02-20 11:48 | Pulmonology Progress Note ---
Assessment/Plan Problems: (1) Fracture of femoral neck, right, closed (2) Pacemaker (3) HTN (hypertension) (4) CAD (coronary artery disease) (5) Sick sinus syndrome (6) Hip fracture, right (7) Hypercholesterolemia Assessment/Plan confused doing better surgery done yesterday titrate cardiology meds symptomatic treatment pt/ot dc planning Subjective ROS Limited/Unobtainable: No Constitutional: Reports: no symptoms HEENT: Repors: no symptoms Allergies: Coded Allergies: No Known Allergies (Unverified , 08/10/13) Objective Last 24 Hour Vital Signs Date Time Temp Pulse Resp B/P (MAP) Pulse Ox O2 Delivery O2 Flow Rate FiO2 02/20/18 09:23 94 138/62 02/20/18 09:22 138/62 02/20/18 08:00 98.7 94 22 137/82 (100) 100 98.7 02/20/18 07:46 Room Air 02/20/18 05:30 98.9 02/20/18 04:00 98.9 101 20 138/82 (100) 98 98.9 02/19/18 23:30 98.2 104 20 129/76 (93) 100 98.2 02/19/18 23:27 Room Air 02/19/18 20:22 98.2 117 20 158/96 (116) 100 98.2 Intake and Output 02/19/18 02/20/18 19:00 07:00 Intake Total 585 ml 1375 ml Balance 585 ml 1375 ml Intake Oral 510 ml 550 ml IV Total 75 ml 825 ml # Voids 2 4 Objective General Appearance: WD/WN HEENT: normocephalic, anicteric Breasts: no masses Cardiovascular: normal peripheral pulses, regular rhythm Abdomen: soft, non tender, no organomegaly Extremities: no cyanosis Skin: no rash Laboratory Tests 02/20/18 07:10: White Blood Count 11.8H, Red Blood Count 3.58L, Hemoglobin 10.5L, Hematocrit 32.7L, Mean Corpuscular Volume 91, Mean Corpuscular Hemoglobin 29.3, Mean Corpuscular Hemoglobin Concent 32.0, Red Cell Distribution Width 17.1H, Platelet Count 324, Mean Platelet Volume 6.1L, Neutrophils (%) (Auto) 84.3H, Lymphocytes (%) (Auto) 9.3L, Monocytes (%) (Auto) 5.8, Eosinophils (%) (Auto) 0.1, Basophils (%) (Auto) 0.5, Neutrophils % (Manual) [Pending], Lymphocytes % ( Manual) [Pending], Platelet Estimate [Pending], Platelet Morphology [Pending], Erythrocyte Sedimentation Rate 22, Reticulocyte Count [Pending], Prothrombin Time 12.0H, Prothromb Time International Ratio 1.1, Activated Partial Thromboplast Time 27, Sodium Level 143, Potassium Level 3.4L, Chloride Level 108H, Carbon Dioxide Level 24, Anion Gap 11, Blood Urea Nitrogen 8, Creatinine 0.8, Estimat Glomerular Filtration Rate , Glucose Level 135H, Calcium Level 8.5 , Phosphorus Level 2.5, Magnesium Level 1.4L, Iron Level 14L, Total Iron Binding Capacity 216L, Percent Iron Saturation 6L, Unsaturated Iron Binding 202 , Total Bilirubin 0.7, Aspartate Amino Transf (AST/SGOT) 39H, Alanine Aminotransferase (ALT/SGPT) 24, Alkaline Phosphatase 56, Lactate Dehydrogenase 461H, Total Protein 5.9L, Albumin 2.6L, Globulin 3.3, Albumin/Globulin Ratio 0.8L, Carcinoembryonic Antigen [Pending], Vitamin B12 Level 959, Folate 21.6, Hepatitis A IgM Antibody [Pending], Hepatitis B Surface Antigen [Pending], Hepatitis B Core IgM Antibody [Pending], Hepatitis C Antibody [Pending], HIV (1& 2) Antibody Rapid [Pending] Current Medications Medications (Trade) Dose Ordered Sig/Yi Route PRN Reason Start Time Stop Time Status Last Admin Dose Admin Acetaminophen (Tylenol) 650 mg Q4H PRN ORAL fever 02/16/18 14:30 03/18/18 14:29 Acetaminophen/ Hydrocodone Bitart ([place] 5/325) 1 tab Q4H PRN ORAL Moderate Pain (Pain Scale 4-6) 02/19/18 09:06 02/26/18 09:05 Acetaminophen/ Hydrocodone Bitart ([place] 5/325) 1 tab Q6H PRN ORAL For PAIN 1-3 02/16/18 14:30 02/23/18 14:29 02/20/18 05:00 Al Hydroxide/Mg Hydroxide (Mylanta II) 30 ml Q6H PRN ORAL dyspepsia 02/16/18 14:23 03/18/18 14:22 Atenolol (Tenormin) 25 mg DAILY ORAL 02/17/18 09:00 03/19/18 08:59 02/20/18 09:23 Ceftriaxone Sodium 1 gm/ Dextrose 55 ml @ 110 mls/hr Q24H IVPB 02/20/18 12:30 02/27/18 12:29 Clonazepam (KlonoPIN) 0.5 mg Q6HR ORAL 02/16/18 18:00 02/23/18 17:59 02/20/18 05:00 Dextrose (Dextrose 50%) 25 ml Q30M PRN IV Hypoglycemia 02/16/18 14:30 03/18/18 14:25 Dextrose (Dextrose 50%) 50 ml Q30M PRN IV hypoglycemia 02/16/18 14:30 03/18/18 14:29 Dextrose/ Electrolytes 1,000 ml @ 75 mls/hr [id number] IV 02/18/18 21:00 03/20/18 20:59 02/19/18 23:16 Docusate Sodium (Colace) 100 mg THREE TIMES A DAY ORAL 02/18/18 18:00 03/20/18 17:59 02/20/18 09:22 Ferrous Sulfate (Feosol) 325 mg THREE TIMES A DAY ORAL 02/18/18 18:00 03/20/18 17:59 02/20/18 09:22 Haloperidol Lactate (Haldol) 5 mg Q4H PRN IM Agitation 02/16/18 18:45 03/18/18 18:44 02/19/18 09:03 Heparin Sodium (Porcine) (Heparin 5000 units/ml) 5,000 units EVERY 12 HOURS SUBQ 02/16/18 21:00 03/18/18 20:59 02/20/18 09:24 Lorazepam (Ativan 2mg/ml 1ml) 0.5 mg Q4H PRN IV For Anxiety 02/16/18 14:30 02/23/18 14:29 02/19/18 23:15 Losartan Potassium (Cozaar) 25 mg DAILY ORAL 02/17/18 09:00 03/19/18 08:59 02/20/18 09:22 Magnesium Hydroxide (Mom) 30 ml DAILYPRN PRN ORAL Constipation 02/18/18 17:30 03/20/18 17:29 Morphine Sulfate (Morphine Sulfate) 4 mg Q4H PRN IVP For Pain 7-10 02/16/18 14:30 02/23/18 14:29 02/19/18 11:14 Ondansetron HCl (Zofran) 4 mg Q6H PRN IVP Nausea & Vomiting 02/16/18 14:30 03/18/18 14:29 Polyethylene Glycol (Miralax) 17 gm HSPRN PRN ORAL Constipation 02/16/18 14:30 03/18/18 14:29 Prochlorperazine (Compazine) 10 mg Q6H PRN IVP Nausea & Vomiting 02/18/18 17:30 03/20/18 17:29 Quetiapine Fumarate (SEROquel) 12.5 mg Q4H PRN ORAL agitation 02/17/18 14:45 03/19/18 14:44 Quetiapine Fumarate (SEROquel) 25 mg QHS ORAL 02/17/18 00:30 03/19/18 00:29 02/19/18 21:24 Trazodone HCl (Desyrel) 50 mg BEDTIME ORAL 02/16/18 21:00 03/18/18 20:59 02/19/18 21:24 Zolpidem Tartrate (Ambien) 5 mg HSPRN PRN ORAL Insomnia 02/16/18 14:30 02/23/18 14:29 02/18/18 00:14 Rod Mancera MD Feb 20, 2018 11:48
[2018-02-20 12:00] VITALS: BP 146/84
[2018-02-20] MEDS: cefTRIAXone 1 GM in D5W 55 ML IVPB SCH (12:46)
[2018-02-20] MEDS: D5 1/2NS w/KCl 20mEq 1,000 ML IV SCH (12:55)
[2018-02-20 16:00] VITALS: BP 136/78
--- NOTE | 2018-02-20 17:32 | Internal Med Progress Note ---
Subjective Date of Service: Feb 20, 2018 Physician Name Aquilino Matthews Attending Physician Carlos Alberto Berkowitz MD Current Medications Medications (Trade) Dose Ordered Sig/Yi Route PRN Reason Start Time Stop Time Status Last Admin Dose Admin Acetaminophen (Tylenol) 650 mg Q4H PRN ORAL fever 02/16/18 14:30 03/18/18 14:29 Acetaminophen/ Hydrocodone Bitart ([place] 5/325) 1 tab Q4H PRN ORAL Moderate Pain (Pain Scale 4-6) 02/19/18 09:06 02/26/18 09:05 Acetaminophen/ Hydrocodone Bitart ([place] 5/325) 1 tab Q6H PRN ORAL For PAIN 1-3 02/16/18 14:30 02/23/18 14:29 02/20/18 05:00 Al Hydroxide/Mg Hydroxide (Mylanta II) 30 ml Q6H PRN ORAL dyspepsia 02/16/18 14:23 03/18/18 14:22 Atenolol (Tenormin) 25 mg DAILY ORAL 02/17/18 09:00 03/19/18 08:59 02/20/18 09:23 Ceftriaxone Sodium 1 gm/ Dextrose 55 ml @ 110 mls/hr Q24H IVPB 02/20/18 12:30 02/27/18 12:29 02/20/18 12:46 Clonazepam (KlonoPIN) 0.5 mg Q6HR ORAL 02/16/18 18:00 02/23/18 17:59 02/20/18 17:04 Dextrose (Dextrose 50%) 25 ml Q30M PRN IV Hypoglycemia 02/16/18 14:30 03/18/18 14:25 Dextrose (Dextrose 50%) 50 ml Q30M PRN IV hypoglycemia 02/16/18 14:30 03/18/18 14:29 Docusate Sodium (Colace) 100 mg THREE TIMES A DAY ORAL 02/18/18 18:00 03/20/18 17:59 02/20/18 17:04 Ferrous Sulfate (Feosol) 325 mg THREE TIMES A DAY ORAL 02/18/18 18:00 03/20/18 17:59 02/20/18 17:04 Haloperidol Lactate (Haldol) 5 mg Q4H PRN IM Agitation 02/16/18 18:45 03/18/18 18:44 02/19/18 09:03 Heparin Sodium (Porcine) (Heparin 5000 units/ml) 5,000 units EVERY 12 HOURS SUBQ 02/16/18 21:00 03/18/18 20:59 02/20/18 09:24 Lorazepam (Ativan 2mg/ml 1ml) 0.5 mg Q4H PRN IV For Anxiety 02/16/18 14:30 02/23/18 14:29 02/19/18 23:15 Losartan Potassium (Cozaar) 25 mg DAILY ORAL 02/17/18 09:00 03/19/18 08:59 02/20/18 09:22 Magnesium Hydroxide (Mom) 30 ml DAILYPRN PRN ORAL Constipation 02/18/18 17:30 03/20/18 17:29 Morphine Sulfate (Morphine Sulfate) 4 mg Q4H PRN IVP For Pain 7-02/16/18 14:30 02/23/18 14:29 02/19/18 11:14 Ondansetron HCl (Zofran) 4 mg Q6H PRN IVP Nausea & Vomiting 02/16/18 14:30 03/18/18 14:29 Polyethylene Glycol (Miralax) 17 gm HSPRN PRN ORAL Constipation 02/16/18 14:30 03/18/18 14:29 Potassium Chloride (K-Dur) 20 meq DAILY ORAL 02/20/18 21:00 03/22/18 20:59 Prochlorperazine (Compazine) 10 mg Q6H PRN IVP Nausea & Vomiting 02/18/18 17:30 03/20/18 17:29 Quetiapine Fumarate (SEROquel) 12.5 mg Q4H PRN ORAL agitation 02/17/18 14:45 03/19/18 14:44 Quetiapine Fumarate (SEROquel) 25 mg QHS ORAL 02/17/18 00:30 03/19/18 00:29 02/19/18 21:24 Trazodone HCl (Desyrel) 50 mg BEDTIME ORAL 02/16/18 21:00 03/18/18 20:59 02/19/18 21:24 Zolpidem Tartrate (Ambien) 5 mg HSPRN PRN ORAL Insomnia 02/16/18 14:30 02/23/18 14:29 02/18/18 00:14 Allergies: Coded Allergies: No Known Allergies (Unverified , 08/10/13) ROS Limited/Unobtainable: Yes Subjective 82 YO F admitted with right hip pain; S/P fall. Now right femoral neck fracture. Cover for Int Med-Dr Berkowitz. S/P ORIF right hip fracture 02/18/18 Objective Last Vital Signs Date Time Temp Pulse Resp B/P (MAP) Pulse Ox O2 Delivery O2 Flow Rate FiO2 02/20/18 16:00 98.8 98 18 136/78 (97) 98.8 02/20/18 12:00 96 02/20/18 07:46 Room Air 02/18/18 19:40 3 Laboratory Tests Test 02/20/18 07:10 White Blood Count 11.8 K/UL (4.8-10.8) H Red Blood Count 3.58 M/UL (4.20-5.40) L Hemoglobin 10.5 G/DL (12.0-16.0) L Hematocrit 32.7 % (37.0-47.0) L Mean Corpuscular Volume 91 FL (80-99) Mean Corpuscular Hemoglobin 29.3 PG (27.0-31.0) Mean Corpuscular Hemoglobin Concent 32.0 G/DL (32.0-36.0) Red Cell Distribution Width 17.1 % (11.6-14.8) H Platelet Count 324 K/UL (150-450) Mean Platelet Volume 6.1 FL (6.5-10.1) L Neutrophils (%) (Auto) 84.3 % (45.0-75.0) H Lymphocytes (%) (Auto) 9.3 % (20.0-45.0) L Monocytes (%) (Auto) 5.8 % (1.0-10.0) Eosinophils (%) (Auto) 0.1 % (0.0-3.0) Basophils (%) (Auto) 0.5 % (0.0-2.0) Differential Total Cells Counted 100 Neutrophils % (Manual) 88 % (45-75) H Lymphocytes % (Manual) 8 % (20-45) L Monocytes % (Manual) 4 % (1-10) Eosinophils % (Manual) 0 % (0-3) Basophils % (Manual) 0 % (0-2) Band Neutrophils 0 % (0-8) Platelet Estimate Adequate Platelet Morphology Normal Anisocytosis 1+ Erythrocyte Sedimentation Rate 22 MM/HR (0-30) Reticulocyte Count 1.8 % (0.0-2.0) Prothrombin Time 12.0 SEC (9.30-11.50) H Prothromb Time International Ratio 1.1 (0.9-1.1) Activated Partial Thromboplast Time 27 SEC (23-33) Sodium Level 143 MMOL/L (136-145) Potassium Level 3.4 MMOL/L (3.5-5.1) L Chloride Level 108 MMOL/L (98-107) H Carbon Dioxide Level 24 MMOL/L (21-32) Anion Gap 11 mmol/L (5-15) Blood Urea Nitrogen 8 mg/dL (7-18) Creatinine 0.8 MG/DL (0.55-1.30) Estimat Glomerular Filtration Rate mL/min (>60) Glucose Level 135 MG/DL (74-106) H Calcium Level 8.5 MG/DL (8.5-10.1) Phosphorus Level 2.5 MG/DL (2.5-4.9) Magnesium Level 1.4 MG/DL (1.8-2.4) L Iron Level 14 ug/dL (50-175) L Total Iron Binding Capacity 216 ug/dL (250-450) L Percent Iron Saturation 6 % (15-50) L Unsaturated Iron Binding 202 ug/dL (112-346) Total Bilirubin 0.7 MG/DL (0.2-1.0) Aspartate Amino Transf (AST/SGOT) 39 U/L (15-37) H Alanine Aminotransferase (ALT/SGPT) 24 U/L (12-78) Alkaline Phosphatase 56 U/L (46-116) Lactate Dehydrogenase 461 U/L (81-234) H Total Protein 5.9 G/DL (6.4-8.2) L Albumin 2.6 G/DL (3.4-5.0) L Globulin 3.3 g/dL Albumin/Globulin Ratio 0.8 (1.0-2.7) L Carcinoembryonic Antigen Pending Vitamin B12 Level 959 PG/ML (193-986) Folate 21.6 NG/ML (8.6-58.9) Hepatitis A IgM Antibody Pending Hepatitis B Surface Antigen Pending Hepatitis B Core IgM Antibody Pending Hepatitis C Antibody Pending HIV (1&2) Antibody Rapid Negative (NEGATIVE) Intake and Output 02/19/18 02/20/18 19:00 07:00 Intake Total 585 ml 1375 ml Balance 585 ml 1375 ml Intake Oral 510 ml 550 ml IV Total 75 ml 825 ml # Voids 2 4 Objective PHYSICAL EXAMINATION: GENERAL: The patient is well-developed and well-nourished thin-appearing white female, in no apparent distress. HEENT: Eyes, pupils are equal and responsive to light and accommodation. Extraocular movements are intact. NECK: Supple without lymphadenopathy. CHEST: Lungs are clear to auscultation bilaterally without wheezes or rales. CARDIOVASCULAR: Regular rhythm and rate. S1 and S2 are normal without murmurs, rubs, or gallops. ABDOMEN: Soft, nontender, and nondistended. Positive bowel sounds. No evidence of hepatosplenomegaly. Currently, no rebound or guarding noted. EXTREMITIES: Negative for clubbing, cyanosis, or edema. Pain to palp right hip RECTAL/GENITAL: Refused. NEUROLOGIC: Cranial nerves II through XII are grossly intact without focal deficits. Motor strength is 5/5 bilaterally. Deep tendon reflexes are 2+ plantar. Assessment/Plan Problem List: (1) Hypercholesterolemia (2) CAD (coronary artery disease) Assessment & Plan: see dardiology note (3) Fracture of femoral neck, right, closed Assessment & Plan: S/P ORIF 02/18/18-see ortho note. (4) HTN (hypertension) (5) Sick sinus syndrome Assessment & Plan: S/P pacemaker (6) Pacemaker (7) UTI (urinary tract infection) Assessment & Plan: E.Coli. Continue rocephin per ID (8) E coli infection Status: progressing Assessment/Plan Discharge planning: SNF vs Acute rehab Aquilino Matthews MD Feb 20, 2018 17:31
[2018-02-20 20:00] VITALS: BP 130/70
[2018-02-20] MEDS: TraZODone 50mg tab ORAL SCH (21:55)
--- NOTE | 2018-02-20 23:49 | General Progress Note ---
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 SNOMED: 16025281 (2) encephalopathy due to Status: stable, progressing Assessment/Plan encephalopathy due to metabolic condition -seroquel prn -provided ro/st Subjective Neurologic/Psychiatric: Reports: anxiety Allergies: Coded Allergies: No Known Allergies (Unverified , 08/10/13) Objective Last 24 Hour Vital Signs Date Time Temp Pulse Resp B/P (MAP) Pulse Ox O2 Delivery O2 Flow Rate FiO2 02/20/18 21:00 Room Air 02/20/18 20:00 98.1 97 19 130/70 (90) 98 98.1 02/20/18 16:00 98.8 98 18 136/78 (97) 98.8 02/20/18 12:00 98.6 112 20 146/84 (104) 96 98.6 02/20/18 09:23 94 138/62 02/20/18 09:22 138/62 02/20/18 08:00 98.7 94 22 137/82 (100) 100 98.7 02/20/18 07:46 Room Air 02/20/18 05:30 98.9 02/20/18 04:00 98.9 101 20 138/82 (100) 98 98.9 Intake and Output 02/19/18 02/20/18 19:00 07:00 Intake Total 585 ml 1375 ml Balance 585 ml 1375 ml Intake Oral 510 ml 550 ml IV Total 75 ml 825 ml # Voids 2 4 Laboratory Tests 02/20/18 07:10: White Blood Count 11.8H, Red Blood Count 3.58L, Hemoglobin 10.5L, Hematocrit 32.7L, Mean Corpuscular Volume 91, Mean Corpuscular Hemoglobin 29.3, Mean Corpuscular Hemoglobin Concent 32.0, Red Cell Distribution Width 17.1H, Platelet Count 324, Mean Platelet Volume 6.1L, Neutrophils (%) (Auto) 84.3H, Lymphocytes (%) (Auto) 9.3L, Monocytes (%) (Auto) 5.8, Eosinophils (%) (Auto) 0.1, Basophils (%) (Auto) 0.5, Differential Total Cells Counted 100, Neutrophils % (Manual) 88H, Lymphocytes % (Manual) 8L, Monocytes % (Manual) 4, Eosinophils % (Manual) 0, Basophils % (Manual) 0, Band Neutrophils 0, Platelet Estimate Adequate, Platelet Morphology Normal, Anisocytosis 1+, Erythrocyte Sedimentation Rate 22, Reticulocyte Count 1.8, Prothrombin Time 12.0H, Prothromb Time International Ratio 1.1, Activated Partial Thromboplast Time 27, Sodium Level 143, Potassium Level 3.4L, Chloride Level 108H, Carbon Dioxide Level 24, Anion Gap 11, Blood Urea Nitrogen 8, Creatinine 0.8, Estimat Glomerular Filtration Rate , Glucose Level 135H, Calcium Level 8.5, Phosphorus Level 2.5, Magnesium Level 1.4L, Iron Level 14L, Total Iron Binding Capacity 216L, Percent Iron Saturation 6L, Unsaturated Iron Binding 202, Total Bilirubin 0.7, Aspartate Amino Transf (AST/SGOT) 39H, Alanine Aminotransferase (ALT/SGPT) 24, Alkaline Phosphatase 56, Lactate Dehydrogenase 461H, Total Protein 5.9L, Albumin 2.6L, Globulin 3.3, Albumin/Globulin Ratio 0.8L, Carcinoembryonic Antigen [Pending], Vitamin B12 Level 959, Folate 21.6, Hepatitis A IgM Antibody [Pending], Hepatitis B Surface Antigen [Pending], Hepatitis B Core IgM Antibody [Pending], Hepatitis C Antibody [Pending], HIV (1&2) Antibody Rapid Negative Height (Feet): 5 Height (Inches): 6.00 Weight (Pounds): 120 General Appearance: no apparent distress, alert, confused Lena Bob MD Feb 20, 2018 23:49
--- NOTE | 2018-02-20 23:49 | Psych Consult Progress Note ---
Psych Consult Progress Note Vital Signs Last 24 Hour Vital Signs Date Time Temp Pulse Resp B/P (MAP) Pulse Ox O2 Delivery O2 Flow Rate FiO2 02/20/18 21:00 Room Air 02/20/18 20:00 98.1 97 19 130/70 (90) 98 98.1 02/20/18 16:00 98.8 98 18 136/78 (97) 98.8 02/20/18 12:00 98.6 112 20 146/84 (104) 96 98.6 02/20/18 09:23 94 138/62 02/20/18 09:22 138/62 02/20/18 08:00 98.7 94 22 137/82 (100) 100 98.7 02/20/18 07:46 Room Air 02/20/18 05:30 98.9 02/20/18 04:00 98.9 101 20 138/82 (100) 98 98.9 Labs Laboratory Tests Test 02/20/18 07:10 White Blood Count 11.8 K/UL (4.8-10.8) H Red Blood Count 3.58 M/UL (4.20-5.40) L Hemoglobin 10.5 G/DL (12.0-16.0) L Hematocrit 32.7 % (37.0-47.0) L Mean Corpuscular Volume 91 FL (80-99) Mean Corpuscular Hemoglobin 29.3 PG (27.0-31.0) Mean Corpuscular Hemoglobin Concent 32.0 G/DL (32.0-36.0) Red Cell Distribution Width 17.1 % (11.6-14.8) H Platelet Count 324 K/UL (150-450) Mean Platelet Volume 6.1 FL (6.5-10.1) L Neutrophils (%) (Auto) 84.3 % (45.0-75.0) H Lymphocytes (%) (Auto) 9.3 % (20.0-45.0) L Monocytes (%) (Auto) 5.8 % (1.0-10.0) Eosinophils (%) (Auto) 0.1 % (0.0-3.0) Basophils (%) (Auto) 0.5 % (0.0-2.0) Differential Total Cells Counted 100 Neutrophils % (Manual) 88 % (45-75) H Lymphocytes % (Manual) 8 % (20-45) L Monocytes % (Manual) 4 % (1-10) Eosinophils % (Manual) 0 % (0-3) Basophils % (Manual) 0 % (0-2) Band Neutrophils 0 % (0-8) Platelet Estimate Adequate Platelet Morphology Normal Anisocytosis 1+ Erythrocyte Sedimentation Rate 22 MM/HR (0-30) Reticulocyte Count 1.8 % (0.0-2.0) Prothrombin Time 12.0 SEC (9.30-11.50) H Prothromb Time International Ratio 1.1 (0.9-1.1) Activated Partial Thromboplast Time 27 SEC (23-33) Sodium Level 143 MMOL/L (136-145) Potassium Level 3.4 MMOL/L (3.5-5.1) L Chloride Level 108 MMOL/L (98-107) H Carbon Dioxide Level 24 MMOL/L (21-32) Anion Gap 11 mmol/L (5-15) Blood Urea Nitrogen 8 mg/dL (7-18) Creatinine 0.8 MG/DL (0.55-1.30) Estimat Glomerular Filtration Rate mL/min (>60) Glucose Level 135 MG/DL (74-106) H Calcium Level 8.5 MG/DL (8.5-10.1) Phosphorus Level 2.5 MG/DL (2.5-4.9) Magnesium Level 1.4 MG/DL (1.8-2.4) L Iron Level 14 ug/dL (50-175) L Total Iron Binding Capacity 216 ug/dL (250-450) L Percent Iron Saturation 6 % (15-50) L Unsaturated Iron Binding 202 ug/dL (112-346) Total Bilirubin 0.7 MG/DL (0.2-1.0) Aspartate Amino Transf (AST/SGOT) 39 U/L (15-37) H Alanine Aminotransferase (ALT/SGPT) 24 U/L (12-78) Alkaline Phosphatase 56 U/L (46-116) Lactate Dehydrogenase 461 U/L (81-234) H Total Protein 5.9 G/DL (6.4-8.2) L Albumin 2.6 G/DL (3.4-5.0) L Globulin 3.3 g/dL Albumin/Globulin Ratio 0.8 (1.0-2.7) L Carcinoembryonic Antigen Pending Vitamin B12 Level 959 PG/ML (193-986) Folate 21.6 NG/ML (8.6-58.9) Hepatitis A IgM Antibody Pending Hepatitis B Surface Antigen Pending Hepatitis B Core IgM Antibody Pending Hepatitis C Antibody Pending HIV (1&2) Antibody Rapid Negative (NEGATIVE) Medications Current Medications Medications (Trade) Dose Ordered Sig/Yi Route PRN Reason Start Time Stop Time Status Last Admin Dose Admin Acetaminophen (Tylenol) 650 mg Q4H PRN ORAL fever 02/16/18 14:30 03/18/18 14:29 Acetaminophen/ Hydrocodone Bitart ([place] 5/325) 1 tab Q4H PRN ORAL Moderate Pain (Pain Scale 4-6) 02/19/18 09:06 02/26/18 09:05 Acetaminophen/ Hydrocodone Bitart ([place] 5/325) 1 tab Q6H PRN ORAL For PAIN 1-3 02/16/18 14:30 02/23/18 14:29 02/20/18 05:00 Al Hydroxide/Mg Hydroxide (Mylanta II) 30 ml Q6H PRN ORAL dyspepsia 02/16/18 14:23 03/18/18 14:22 Atenolol (Tenormin) 25 mg DAILY ORAL 02/17/18 09:00 03/19/18 08:59 02/20/18 09:23 Ceftriaxone Sodium 1 gm/ Dextrose 55 ml @ 110 mls/hr Q24H IVPB 02/20/18 12:30 02/27/18 12:29 02/20/18 12:46 Clonazepam (KlonoPIN) 0.5 mg Q6HR ORAL 02/16/18 18:00 02/23/18 17:59 02/20/18 23:44 Dextrose (Dextrose 50%) 25 ml Q30M PRN IV Hypoglycemia 02/16/18 14:30 03/18/18 14:25 Dextrose (Dextrose 50%) 50 ml Q30M PRN IV hypoglycemia 02/16/18 14:30 03/18/18 14:29 Docusate Sodium (Colace) 100 mg THREE TIMES A DAY ORAL 02/18/18 18:00 03/20/18 17:59 02/20/18 17:04 Ferrous Sulfate (Feosol) 325 mg THREE TIMES A DAY ORAL 02/18/18 18:00 03/20/18 17:59 02/20/18 17:04 Haloperidol Lactate (Haldol) 5 mg Q4H PRN IM Agitation 02/16/18 18:45 03/18/18 18:44 02/19/18 09:03 Heparin Sodium (Porcine) (Heparin 5000 units/ml) 5,000 units EVERY 12 HOURS SUBQ 02/16/18 21:00 03/18/18 20:59 02/20/18 21:56 Lorazepam (Ativan 2mg/ml 1ml) 0.5 mg Q4H PRN IV For Anxiety 02/16/18 14:30 02/23/18 14:29 02/19/18 23:15 Losartan Potassium (Cozaar) 25 mg DAILY ORAL 02/17/18 09:00 03/19/18 08:59 02/20/18 09:22 Magnesium Hydroxide (Mom) 30 ml DAILYPRN PRN ORAL Constipation 02/18/18 17:30 03/20/18 17:29 Morphine Sulfate (Morphine Sulfate) 4 mg Q4H PRN IVP For Pain 7-10 02/16/18 14:30 02/23/18 14:29 02/19/18 11:14 Ondansetron HCl (Zofran) 4 mg Q6H PRN IVP Nausea & Vomiting 02/16/18 14:30 03/18/18 14:29 Polyethylene Glycol (Miralax) 17 gm HSPRN PRN ORAL Constipation 02/16/18 14:30 03/18/18 14:29 Potassium Chloride (K-Dur) 20 meq DAILY ORAL 02/20/18 21:00 03/22/18 20:59 02/20/18 21:55 Prochlorperazine (Compazine) 10 mg Q6H PRN IVP Nausea & Vomiting 02/18/18 17:30 03/20/18 17:29 Quetiapine Fumarate (SEROquel) 12.5 mg Q4H PRN ORAL agitation 02/17/18 14:45 03/19/18 14:44 Quetiapine Fumarate (SEROquel) 25 mg QHS ORAL 02/17/18 00:30 03/19/18 00:29 02/20/18 21:55 Trazodone HCl (Desyrel) 50 mg BEDTIME ORAL 02/16/18 21:00 03/18/18 20:59 02/20/18 21:55 Zolpidem Tartrate (Ambien) 5 mg HSPRN PRN ORAL Insomnia 02/16/18 14:30 02/23/18 14:29 02/18/18 00:14 Problems: (1) Psychosis (2) encephalopathy due to Assessment & Plan: encephalopathy due to metabolic condition -seroquel prn -provided kenneth/Lena Lawrence MD Feb 20, 2018 23:49
[2018-02-21] VITALS (9 sets, daily range): BP systolic 125–156; BP diastolic 63–88
[2018-02-21] MEDS: clonazePAM 0.5mg tab ORAL SCH ×4 (05:53→18:34)
[2018-02-21 07:28] LABS: BASOPHILS % (AUTO) 0.3 % (0.0-2.0); EOSINOPHILS % (AUTO) 0.3 % (0.0-3.0); HEMATOCRIT 30.1 % (37.0-47.0); HEMOGLOBIN 9.4 G/DL (12.0-16.0); LYMPHOCYTES % (AUTO) 10.5 % (20.0-45.0); MEAN CORPUSCULAR VOLUME 92 FL (80-99); MONOCYTES % (AUTO) 6.1 % (1.0-10.0); NEUTROPHILS % (AUTO) 82.8 % (45.0-75.0); PLATELET COUNT 295 K/UL (150-450); RED BLOOD COUNT 3.27 M/UL (4.20-5.40); WHITE BLOOD COUNT 11.1 K/UL (4.8-10.8)
[2018-02-21 07:57] LABS: ANION GAP 9 mmol/L (5-15); BLOOD UREA NITROGEN 10 mg/dL (7-18); CALCIUM 8.3 MG/DL (8.5-10.1); CARBON DIOXIDE 23 MMOL/L (21-32); CHLORIDE 111 MMOL/L (98-107); CREATININE 0.8 MG/DL (0.55-1.30); POTASSIUM 3.5 MMOL/L (3.5-5.1); SODIUM 143 MMOL/L (136-145)
[2018-02-21] MEDS: Heparin 5000 units/ml inj SUBQ SCH ×2 (08:46→21:14)
[2018-02-21] MEDS: Atenolol 25mg tab ORAL SCH (08:48)
[2018-02-21] MEDS: Losartan 25mg tab ORAL SCH (08:48)
[2018-02-21] MEDS: Docusate 100mg cap ORAL SCH ×4 (08:56→18:34)
[2018-02-21 13:07] LABS: BASOPHILS % (AUTO) 0.3 % (0.0-2.0); EOSINOPHILS % (AUTO) 0.3 % (0.0-3.0); HEMATOCRIT 29.9 % (37.0-47.0); HEMOGLOBIN 9.4 G/DL (12.0-16.0); LYMPHOCYTES % (AUTO) 9.4 % (20.0-45.0); MEAN CORPUSCULAR VOLUME 92 FL (80-99); MONOCYTES % (AUTO) 7.5 % (1.0-10.0); NEUTROPHILS % (AUTO) 82.4 % (45.0-75.0); PLATELET COUNT 288 K/UL (150-450); RED BLOOD COUNT 3.25 M/UL (4.20-5.40); RED CELL DISTRIBUTION WIDTH 17.2 % (11.6-14.8); WHITE BLOOD COUNT 9.6 K/UL (4.8-10.8)
[2018-02-21] MEDS: cefTRIAXone 1 GM in D5W 55 ML IVPB SCH (13:20)
[2018-02-21 13:34] LABS: ANION GAP 10 mmol/L (5-15); BLOOD UREA NITROGEN 9 mg/dL (7-18); CALCIUM 8.5 MG/DL (8.5-10.1); CARBON DIOXIDE 24 MMOL/L (21-32); CHLORIDE 109 MMOL/L (98-107); CREATININE 0.7 MG/DL (0.55-1.30); POTASSIUM 3.5 MMOL/L (3.5-5.1); SODIUM 143 MMOL/L (136-145)
--- NOTE | 2018-02-21 14:42 | Internal Med Progress Note ---
Subjective Date of Service: Feb 21, 2018 Physician Name Aquilino Matthews Attending Physician Carlos Alberto Berkowitz MD Current Medications Medications (Trade) Dose Ordered Sig/Yi Route PRN Reason Start Time Stop Time Status Last Admin Dose Admin Acetaminophen (Tylenol) 650 mg Q4H PRN ORAL fever 02/16/18 14:30 03/18/18 14:29 Acetaminophen/ Hydrocodone Bitart ([place] 5/325) 1 tab Q4H PRN ORAL Moderate Pain (Pain Scale 4-6) 02/19/18 09:06 02/26/18 09:05 Acetaminophen/ Hydrocodone Bitart ([place] 5/325) 1 tab Q6H PRN ORAL For PAIN 1-3 02/16/18 14:30 02/23/18 14:29 02/20/18 05:00 Al Hydroxide/Mg Hydroxide (Mylanta II) 30 ml Q6H PRN ORAL dyspepsia 02/16/18 14:23 03/18/18 14:22 Atenolol (Tenormin) 25 mg DAILY ORAL 02/17/18 09:00 03/19/18 08:59 02/21/18 08:48 Ceftriaxone Sodium 1 gm/ Dextrose 55 ml @ 110 mls/hr Q24H IVPB 02/20/18 12:30 02/27/18 12:29 02/21/18 13:20 Clonazepam (KlonoPIN) 0.5 mg Q6HR ORAL 02/16/18 18:00 02/23/18 17:59 02/21/18 05:53 Dextrose (Dextrose 50%) 25 ml Q30M PRN IV Hypoglycemia 02/16/18 14:30 03/18/18 14:25 Dextrose (Dextrose 50%) 50 ml Q30M PRN IV hypoglycemia 02/16/18 14:30 03/18/18 14:29 Docusate Sodium (Colace) 100 mg THREE TIMES A DAY ORAL 02/18/18 18:00 03/20/18 17:59 02/20/18 17:04 Ferrous Sulfate (Feosol) 325 mg THREE TIMES A DAY ORAL 02/18/18 18:00 03/20/18 17:59 02/21/18 08:48 Haloperidol Lactate (Haldol) 5 mg Q4H PRN IM Agitation 02/16/18 18:45 03/18/18 18:44 02/19/18 09:03 Heparin Sodium (Porcine) (Heparin 5000 units/ml) 5,000 units EVERY 12 HOURS SUBQ 02/16/18 21:00 03/18/18 20:59 02/21/18 08:46 Lorazepam (Ativan 2mg/ml 1ml) 0.5 mg Q4H PRN IV For Anxiety 02/16/18 14:30 02/23/18 14:29 02/19/18 23:15 Losartan Potassium (Cozaar) 25 mg DAILY ORAL 02/17/18 09:00 03/19/18 08:59 02/21/18 08:48 Magnesium Hydroxide (Mom) 30 ml DAILYPRN PRN ORAL Constipation 02/18/18 17:30 03/20/18 17:29 Morphine Sulfate (Morphine Sulfate) 4 mg Q4H PRN IVP For Pain 7-02/16/18 14:30 02/23/18 14:29 02/19/18 11:14 Ondansetron HCl (Zofran) 4 mg Q6H PRN IVP Nausea & Vomiting 02/16/18 14:30 03/18/18 14:29 Polyethylene Glycol (Miralax) 17 gm HSPRN PRN ORAL Constipation 02/16/18 14:30 03/18/18 14:29 Potassium Chloride (K-Dur) 20 meq DAILY ORAL 02/20/18 21:00 03/22/18 20:59 02/21/18 08:47 Prochlorperazine (Compazine) 10 mg Q6H PRN IVP Nausea & Vomiting 02/18/18 17:30 03/20/18 17:29 Quetiapine Fumarate (SEROquel) 12.5 mg Q4H PRN ORAL agitation 02/17/18 14:45 03/19/18 14:44 Quetiapine Fumarate (SEROquel) 25 mg QHS ORAL 02/17/18 00:30 03/19/18 00:29 02/20/18 21:55 Trazodone HCl (Desyrel) 50 mg BEDTIME ORAL 02/16/18 21:00 03/18/18 20:59 02/20/18 21:55 Zolpidem Tartrate (Ambien) 5 mg HSPRN PRN ORAL Insomnia 02/16/18 14:30 10/9/18 14:29 02/18/18 00:14 Allergies: Coded Allergies: No Known Allergies (Unverified , 08/10/13) ROS Limited/Unobtainable: No Constitutional: Reports: no symptoms HEENT: Reports: no symptoms Cardiovascular: Reports: no symptoms Respiratory: Reports: no symptoms Gastrointestinal/Abdominal: Reports: no symptoms Genitourinary: Reports: no symptoms Neurologic/Psychiatric: Reports: no symptoms Subjective 82 YO F admitted with right hip pain; S/P fall. Now right femoral neck fracture. Cover for Int Med-Dr Berkowitz. S/P ORIF right hip fracture 02/18/18. Patient had syncopal episode transferring from chair to bed today-now on Tele Objective Last Vital Signs Date Time Temp Pulse Resp B/P (MAP) Pulse Ox O2 Delivery O2 Flow Rate FiO2 02/21/18 11:21 71 18 138/83 (101) 100 02/21/18 09:00 Room Air 02/21/18 08:00 98.6 98.6 02/18/18 19:40 3 Laboratory Tests Test 02/21/18 06:35 02/21/18 11:45 White Blood Count 11.1 K/UL (4.8-10.8) H 9.6 K/UL (4.8-10.8) Red Blood Count 3.27 M/UL (4.20-5.40) L 3.25 M/UL (4.20-5.40) L Hemoglobin 9.4 G/DL (12.0-16.0) L 9.4 G/DL (12.0-16.0) L Hematocrit 30.1 % (37.0-47.0) L 29.9 % (37.0-47.0) L Mean Corpuscular Volume 92 FL (80-99) 92 FL (80-99) Mean Corpuscular Hemoglobin 28.7 PG (27.0-31.0) 29.0 PG (27.0-31.0) Mean Corpuscular Hemoglobin Concent 31.2 G/DL (32.0-36.0) L 31.4 G/DL (32.0-36.0) L Red Cell Distribution Width 17.0 % (11.6-14.8) H 17.2 % (11.6-14.8) H Platelet Count 295 K/UL (150-450) 288 K/UL (150-450) Mean Platelet Volume 5.8 FL (6.5-10.1) L 6.2 FL (6.5-10.1) L Neutrophils (%) (Auto) 82.8 % (45.0-75.0) H 82.4 % (45.0-75.0) H Lymphocytes (%) (Auto) 10.5 % (20.0-45.0) L 9.4 % (20.0-45.0) L Monocytes (%) (Auto) 6.1 % (1.0-10.0) 7.5 % (1.0-10.0) Eosinophils (%) (Auto) 0.3 % (0.0-3.0) 0.3 % (0.0-3.0) Basophils (%) (Auto) 0.3 % (0.0-2.0) 0.3 % (0.0-2.0) Sodium Level 143 MMOL/L (136-145) 143 MMOL/L (136-145) Potassium Level 3.5 MMOL/L (3.5-5.1) 3.5 MMOL/L (3.5-5.1) Chloride Level 111 MMOL/L (98-107) H 109 MMOL/L (98-107) H Carbon Dioxide Level 23 MMOL/L (21-32) 24 MMOL/L (21-32) Anion Gap 9 mmol/L (5-15) 10 mmol/L (5-15) Blood Urea Nitrogen 10 mg/dL (7-18) 9 mg/dL (7-18) Creatinine 0.8 MG/DL (0.55-1.30) 0.7 MG/DL (0.55-1.30) Estimat Glomerular Filtration Rate mL/min (>60) mL/min (>60) Glucose Level 88 MG/DL (74-106) 104 MG/DL (74-106) Calcium Level 8.3 MG/DL (8.5-10.1) L 8.5 MG/DL (8.5-10.1) Microbiology Date/Time Source Procedure Growth Status 02/19/18 18:45 Blood Blood Culture - Preliminary NO GROWTH AFTER 24 HOURS Resulted 02/19/18 18:30 Blood Blood Culture - Preliminary NO GROWTH AFTER 24 HOURS Resulted Intake and Output 10/6/18 10/7/18 19:00 07:00 Intake Total 75 ml 560 ml Balance 75 ml 560 ml Intake Oral 560 ml IV Total 75 ml # Voids 4 Objective PHYSICAL EXAMINATION: GENERAL: The patient is well-developed and well-nourished thin-appearing white female, in no apparent distress. HEENT: Eyes, pupils are equal and responsive to light and accommodation. Extraocular movements are intact. NECK: Supple without lymphadenopathy. CHEST: Lungs are clear to auscultation bilaterally without wheezes or rales. CARDIOVASCULAR: Regular rhythm and rate. S1 and S2 are normal without murmurs, rubs, or gallops. ABDOMEN: Soft, nontender, and nondistended. Positive bowel sounds. No evidence of hepatosplenomegaly. Currently, no rebound or guarding noted. EXTREMITIES: Negative for clubbing, cyanosis, or edema. Pain to palp right hip RECTAL/GENITAL: Refused. NEUROLOGIC: Cranial nerves II through XII are grossly intact without focal deficits. Motor strength is 5/5 bilaterally. Deep tendon reflexes are 2+ plantar. Assessment/Plan Problem List: (1) Hypercholesterolemia (2) CAD (coronary artery disease) Assessment & Plan: see dardiology note (3) Fracture of femoral neck, right, closed Assessment & Plan: S/P ORIF 02/18/18-see ortho note. (4) HTN (hypertension) (5) Sick sinus syndrome Assessment & Plan: S/P pacemaker (6) Pacemaker (7) UTI (urinary tract infection) Assessment & Plan: E.Coli. Continue rocephin per ID (8) E coli infection (9) Syncope Assessment & Plan: ?vasovagal vs hypoglycemia? Transfer to [facility]; [facility] & [facility] Status: not improved Assessment/Plan Discharge planning: SNF vs Acute rehab Aquilino Matthews MD Feb 21, 2018 14:42
[2018-02-21] MEDS ORDERED: Mylanta II UD 30ml ORAL PRN (15:16)
[2018-02-21] MEDS ORDERED: Norco 5mg/325mg tab ORAL PRN ×3 (15:18→16:15)
[2018-02-21] MEDS ORDERED: Haloperidol 5mg/ml Inj IM PRN (15:18)
[2018-02-21] MEDS ORDERED: LORazepam Inj 2mg/ml 1ml IV PRN (15:19)
[2018-02-21] MEDS ORDERED: Milk of Magnesia 30ml Ud ORAL PRN (15:19)
[2018-02-21] MEDS ORDERED: Morphine Sulfate 4mg/ml Inj (IV USE ONLY) IVP PRN (15:19)
[2018-02-21] MEDS ORDERED: Miralax 17gm pkt ORAL PRN ×2 (15:19→15:25)
[2018-02-21] MEDS ORDERED: Zolpidem 5mg tab ORAL PRN (15:20)
--- NOTE | 2018-02-21 16:16 | General Progress Note ---
Assessment/Plan Assessment/Plan (1) Right hip fracture (2) Right hip pain (3) S/p fall and right hip arthroplasty Patient to be discontinued off Morphine and continued on Weed or Tylenol as needed. D/w Dr. Lynn and he concurred. Subjective Date patient seen: Feb 21, 2018 Time patient seen: 03:45 - pm Allergies: Coded Allergies: No Known Allergies (Unverified , 08/10/13) Subjective REVIEW OF SYSTEMS: Denies rash, fever, chills, sweating, dizziness, drowsiness, blurred vision, sore throat, or change in her weight. No shortness of breath, chest pain, palpitations, or cough. She is complaining of right hip pain. SUBJECTIVE: Patient is in bed showing no signs of pain or distress. Has not requested the Morphine or Weed in the last 24hrs. D/w nurse. Objective Last 24 Hour Vital Signs Date Time Temp Pulse Resp B/P (MAP) Pulse Ox O2 Delivery O2 Flow Rate FiO2 02/21/18 11:21 71 18 138/83 (101) 100 02/21/18 11:00 77 18 142/81 (101) 100 02/21/18 10:50 69 18 156/79 (104) 95 02/21/18 09:00 Room Air 02/21/18 08:48 132/78 02/21/18 08:48 96 132/78 02/21/18 08:00 98.6 96 18 132/78 (96) 98 98.6 02/21/18 04:00 99.6 93 19 125/63 (83) 98 99.6 02/21/18 00:00 98.0 95 20 137/82 (100) 98 98.0 02/20/18 21:00 Room Air 02/20/18 20:00 98.1 97 19 130/70 (90) 98 98.1 Intake and Output 02/20/18 02/21/18 19:00 07:00 Intake Total 75 ml 560 ml Balance 75 ml 560 ml Intake Oral 560 ml IV Total 75 ml # Voids 4 Laboratory Tests 02/21/18 06:35: White Blood Count 11.1H, Red Blood Count 3.27L, Hemoglobin 9.4L, Hematocrit 30.1L, Mean Corpuscular Volume 92, Mean Corpuscular Hemoglobin 28.7, Mean Corpuscular Hemoglobin Concent 31.2L, Red Cell Distribution Width 17.0H, Platelet Count 295, Mean Platelet Volume 5.8L, Neutrophils (%) (Auto) 82.8H, Lymphocytes (%) (Auto) 10.5L, Monocytes (%) (Auto) 6.1, Eosinophils (%) (Auto) 0.3, Basophils (%) (Auto) 0.3, Sodium Level 143, Potassium Level 3.5, Chloride Level 111H, Carbon Dioxide Level 23, Anion Gap 9, Blood Urea Nitrogen 10, Creatinine 0.8, Estimat Glomerular Filtration Rate , Glucose Level 88, Calcium Level 8.3L 02/21/18 11:45: White Blood Count 9.6, Red Blood Count 3.25L, Hemoglobin 9.4L, Hematocrit 29.9L , Mean Corpuscular Volume 92, Mean Corpuscular Hemoglobin 29.0, Mean Corpuscular Hemoglobin Concent 31.4L, Red Cell Distribution Width 17.2H, Platelet Count 288, Mean Platelet Volume 6.2L, Neutrophils (%) (Auto) 82.4H, Lymphocytes (%) (Auto) 9.4L, Monocytes (%) (Auto) 7.5, Eosinophils (%) (Auto) 0.3, Basophils (%) (Auto) 0.3, Sodium Level 143, Potassium Level 3.5, Chloride Level 109H, Carbon Dioxide Level 24, Anion Gap 10, Blood Urea Nitrogen 9, Creatinine 0.7, Estimat Glomerular Filtration Rate , Glucose Level 104, Calcium Level 8.5 Height (Feet): 5 Height (Inches): 6.00 Weight (Pounds): 120 Objective GENERAL: Alert and awake. LUNGS: Decreased breath sounds bilaterally. HEART: S1 and S2 regular. ABDOMEN: Benign. EXTREMITIES: No CCE noted. Right hip bandages placed. NEURO: No changes. Efren Beltran Feb 21, 2018 16:16
[2018-02-21 16:34] LABS: BASOPHILS % (AUTO) 0.3 % (0.0-2.0); EOSINOPHILS % (AUTO) 0.5 % (0.0-3.0); HEMATOCRIT 35.4 % (37.0-47.0); HEMOGLOBIN 11.1 G/DL (12.0-16.0); LYMPHOCYTES % (AUTO) 10.5 % (20.0-45.0); MEAN CORPUSCULAR VOLUME 96 FL (80-99); MONOCYTES % (AUTO) 7.3 % (1.0-10.0); NEUTROPHILS % (AUTO) 81.4 % (45.0-75.0); PLATELET COUNT 304 K/UL (150-450); RED BLOOD COUNT 3.68 M/UL (4.20-5.40); RED CELL DISTRIBUTION WIDTH 17.1 % (11.6-14.8); WHITE BLOOD COUNT 11.2 K/UL (4.8-10.8)
--- NOTE | 2018-02-21 20:42 | Infectious Diseases Prog Note ---
Assessment/Plan Assessment/Plan ASSESSMENT: The patient is an 82-year-old female with: Mild leukocytosis Probable urinary tract infection. Urine culture, E. coli. Probable pneumonia. Probable sepsis (history of several falls and altered level of consciousness), this may be due to an infectious process. Neg: HIV< Hep panel Right hip fracture status post ORIF. Diabetes. Hypertension. Sick sinus syndrome. History of non-ST elevation. History of coronary artery bypass surgery. History of pacemaker in 2017. History of pacemaker implantation. PLAN: - cont on Rocephin d # 2 - Monitor CBC. BMP - Monitor CXR. - Monitor cultures, urine and blood. Subjective Constitutional: Denies: no symptoms, fever, chills, fatigue, anorexia, drenching sweats, other Allergies: Coded Allergies: No Known Allergies (Unverified , 08/10/13) Objective Vital Signs Last 24 Hour Vital Signs Date Time Temp Pulse Resp B/P (MAP) Pulse Ox O2 Delivery O2 Flow Rate FiO2 02/21/18 19:19 98.1 89 18 135/78 (97) 99 98.1 02/21/18 16:00 84 02/21/18 16:00 98.8 96 22 136/86 (103) 98 98.8 02/21/18 12:00 79 02/21/18 12:00 98.7 86 20 136/88 (104) 100 98.7 02/21/18 11:21 71 18 138/83 (101) 100 02/21/18 11:00 77 18 142/81 (101) 100 02/21/18 10:50 69 18 156/79 (104) 95 02/21/18 09:00 Room Air 02/21/18 08:48 132/78 02/21/18 08:48 96 132/78 02/21/18 08:00 98.6 96 18 132/78 (96) 98 98.6 02/21/18 04:00 99.6 93 19 125/63 (83) 98 99.6 02/21/18 00:00 98.0 95 20 137/82 (100) 98 98.0 02/20/18 21:00 Room Air Height (Feet): 5 Height (Inches): 6.00 Weight (Pounds): 120 HEENT: anicteric Respiratory/Chest: no respiratory distress Cardiovascular: normal rate Abdomen: no organomegaly Microbiology Date/Time Source Procedure Growth Status 02/19/18 18:45 Blood Blood Culture - Preliminary NO GROWTH AFTER 24 HOURS Resulted 02/19/18 18:30 Blood Blood Culture - Preliminary NO GROWTH AFTER 24 HOURS Resulted Laboratory Tests Test 02/21/18 06:35 02/21/18 11:45 02/21/18 16:15 White Blood Count 11.1 K/UL (4.8-10.8) H 9.6 K/UL (4.8-10.8) 11.2 K/UL (4.8-10.8) H Red Blood Count 3.27 M/UL (4.20-5.40) L 3.25 M/UL (4.20-5.40) L 3.68 M/UL (4.20-5.40) L Hemoglobin 9.4 G/DL (12.0-16.0) L 9.4 G/DL (12.0-16.0) L 11.1 G/DL (12.0-16.0) L Hematocrit 30.1 % (37.0-47.0) L 29.9 % (37.0-47.0) L 35.4 % (37.0-47.0) L Mean Corpuscular Volume 92 FL (80-99) 92 FL (80-99) 96 FL (80-99) Mean Corpuscular Hemoglobin 28.7 PG (27.0-31.0) 29.0 PG (27.0-31.0) 30.1 PG (27.0-31.0) Mean Corpuscular Hemoglobin Concent 31.2 G/DL (32.0-36.0) L 31.4 G/DL (32.0-36.0) L 31.4 G/DL (32.0-36.0) L Red Cell Distribution Width 17.0 % (11.6-14.8) H 17.2 % (11.6-14.8) H 17.1 % (11.6-14.8) H Platelet Count 295 K/UL (150-450) 288 K/UL (150-450) 304 K/UL (150-450) Mean Platelet Volume 5.8 FL (6.5-10.1) L 6.2 FL (6.5-10.1) L 7.0 FL (6.5-10.1) Neutrophils (%) (Auto) 82.8 % (45.0-75.0) H 82.4 % (45.0-75.0) H 81.4 % (45.0-75.0) H Lymphocytes (%) (Auto) 10.5 % (20.0-45.0) L 9.4 % (20.0-45.0) L 10.5 % (20.0-45.0) L Monocytes (%) (Auto) 6.1 % (1.0-10.0) 7.5 % (1.0-10.0) 7.3 % (1.0-10.0) Eosinophils (%) (Auto) 0.3 % (0.0-3.0) 0.3 % (0.0-3.0) 0.5 % (0.0-3.0) Basophils (%) (Auto) 0.3 % (0.0-2.0) 0.3 % (0.0-2.0) 0.3 % (0.0-2.0) Sodium Level 143 MMOL/L (136-145) 143 MMOL/L (136-145) Potassium Level 3.5 MMOL/L (3.5-5.1) 3.5 MMOL/L (3.5-5.1) Chloride Level 111 MMOL/L (98-107) H 109 MMOL/L (98-107) H Carbon Dioxide Level 23 MMOL/L (21-32) 24 MMOL/L (21-32) Anion Gap 9 mmol/L (5-15) 10 mmol/L (5-15) Blood Urea Nitrogen 10 mg/dL (7-18) 9 mg/dL (7-18) Creatinine 0.8 MG/DL (0.55-1.30) 0.7 MG/DL (0.55-1.30) Estimat Glomerular Filtration Rate mL/min (>60) mL/min (>60) Glucose Level 88 MG/DL (74-106) 104 MG/DL (74-106) Calcium Level 8.3 MG/DL (8.5-10.1) L 8.5 MG/DL (8.5-10.1) Current Medications Medications (Trade) Dose Ordered Sig/Yi Route PRN Reason Start Time Stop Time Status Last Admin Dose Admin Acetaminophen (Tylenol) 650 mg Q4H PRN ORAL moderate pain/fever 02/21/18 16:15 03/18/18 16:14 Acetaminophen/ Hydrocodone Bitart ([place] 5/325) 1 tab Q4H PRN ORAL severe pain 02/21/18 16:15 02/26/18 16:14 Al Hydroxide/Mg Hydroxide (Mylanta II) 30 ml Q6H PRN ORAL dyspepsia 02/21/18 15:16 03/18/18 15:15 Atenolol (Tenormin) 25 mg DAILY ORAL 02/22/18 09:00 03/19/18 08:59 Ceftriaxone Sodium 1 gm/ Dextrose 55 ml @ 110 mls/hr Q24H IVPB 02/22/18 12:30 02/27/18 12:29 Clonazepam (KlonoPIN) 0.5 mg Q6HR ORAL 02/21/18 18:00 02/23/18 17:59 Dextrose (Dextrose 50%) 25 ml Q30M PRN IV Hypoglycemia 02/21/18 15:30 03/18/18 14:25 Dextrose (Dextrose 50%) 50 ml Q30M PRN IV hypoglycemia 02/21/18 15:30 03/18/18 14:29 Docusate Sodium (Colace) 100 mg THREE TIMES A DAY ORAL 02/21/18 18:00 03/20/18 17:59 Ferrous Sulfate (Feosol) 325 mg TIAC ORAL 02/21/18 16:30 03/23/18 16:29 Haloperidol Lactate (Haldol) 5 mg Q4H PRN IM Agitation 02/21/18 15:18 03/18/18 15:17 Heparin Sodium (Porcine) (Heparin 5000 units/ml) 5,000 units EVERY 12 HOURS SUBQ 02/21/18 21:00 03/18/18 20:59 Lorazepam (Ativan 2mg/ml 1ml) 0.5 mg Q4H PRN IV For Anxiety 02/21/18 15:19 02/23/18 15:18 Losartan Potassium (Cozaar) 25 mg DAILY ORAL 02/22/18 09:00 03/19/18 08:59 Magnesium Hydroxide (Mom) 30 ml DAILYPRN PRN ORAL Constipation 10/7/18 15:19 03/20/18 15:18 Ondansetron HCl (Zofran) 4 mg Q6H PRN IVP Nausea & Vomiting 02/21/18 15:19 03/18/18 15:18 Polyethylene Glycol (Miralax) 17 gm HSPRN PRN ORAL Constipation 02/21/18 15:25 03/23/18 15:18 Potassium Chloride (K-Dur) 20 meq DAILY ORAL 02/22/18 09:00 03/22/18 20:59 Prochlorperazine (Compazine) 10 mg Q6H PRN IVP Nausea & Vomiting 02/21/18 15:20 03/20/18 15:19 Quetiapine Fumarate (SEROquel) 12.5 mg Q4H PRN ORAL agitation 02/21/18 15:20 03/19/18 15:19 Quetiapine Fumarate (SEROquel) 25 mg QHS ORAL 02/21/18 21:00 03/19/18 00:29 Trazodone HCl (Desyrel) 50 mg BEDTIME ORAL 02/21/18 21:00 03/18/18 20:59 Zolpidem Tartrate (Ambien) 5 mg HSPRN PRN ORAL Insomnia 02/21/18 15:20 02/28/18 15:19 Antonio Rodrigez MD Feb 21, 2018 20:42
[2018-02-21] MEDS ORDERED: TraZODone 50mg tab ORAL SCH (21:00)
[2018-02-22] MEDS: clonazePAM 0.5mg tab ORAL SCH ×2 (00:04→06:04)
[2018-02-22 00:37] VITALS: BP 126/64
[2018-02-22 04:02] VITALS: BP 133/71
--- NOTE | 2018-02-22 07:42 | Cardiology Report ---
APPROVED REPORT EXAM: Two-dimensional and M-mode echocardiogram with Doppler and color Doppler. M-Mode DIMENSIONS IVSd1.3 (0.7-1.1cm)Left Atrium (MM)4.3 (1.6-4.0cm) LVDd6.3 (3.5-5.6cm)Aortic Root3.4 (2.0-3.7cm) PWd1.1 (0.7-1.1cm)Aortic Cusp Exc.1.2 (1.5-2.0cm) LVDs5.4 (2.5-4.0cm) PWs1.5 cm Limited 2-D Echo study due to pt's resistance. Moderate left ventricular enlargement. Global left ventricular hypokinesis, worse in posterior wall. Left ventricular ejection fraction estimated to be 30-35 %. Increased E point-interventricular septal separation c/w left ventricular dysfunction. Mild left ventricular hypertrophy. No evidence of pericardial effusion. Moderate bi-atrial enlargement. Right cardiac chamber size is within normal limits. Aortic valve calcification with decreased cusp excursion c/w aortic stenosis. Thickened mitral valve leaflets with normal excursion. Moderate mitral annulus and aortic root calcification. Normal pulmonic valve structure. Normal tricuspid valve structure. No subcostal views obtained. Pacemaker wire present in the right side chambers. A color flow and spectral Doppler study was performed and revealed: Mild aortic insufficiency. Peak aortic valve gradient of 20 mmHg and a mean of 8 mmHg. Aortic valve area 1.2 cm2 calculated by continuity equation suggestive of mild to moderate aortic stenosis. Moderate mitral regurgitation. Mitral inflow velocities indicates possible pseudo normalization pattern implying moderately elevated left atrial pressure (Grade II ). Moderate tricuspid regurgitation. Tricuspid systolic velocities suggests peak right ventricular systolic pressure of 82 mmHg, consistent with severe pulmonary hypertension. Moderate pulmonic regurgitation present.
[2018-02-22 07:55] VITALS: BP 159/75
--- NOTE | 2018-02-22 08:57 | General Progress Note ---
Assessment/Plan Assessment/Plan (1) Right hip fracture (2) Right hip pain (3) S/p fall and right hip arthroplasty Patient to be continued on [place] or Tylenol as needed. D/w Dr. Lynn and he concurred. Subjective Date patient seen: Feb 22, 2018 Time patient seen: 07:45 - am Allergies: Coded Allergies: No Known Allergies (Unverified , 08/10/13) Subjective REVIEW OF SYSTEMS: Denies rash, fever, chills, sweating, dizziness, drowsiness, blurred vision, sore throat, or change in her weight. No shortness of breath, chest pain, palpitations, or cough. She is complaining of right hip pain. SUBJECTIVE: Patient has continued pain more so with movement. The pain has been tolerated on the norco using one dose in the last 24hrs. No new complaints at this time. Objective Last 24 Hour Vital Signs Date Time Temp Pulse Resp B/P (MAP) Pulse Ox O2 Delivery O2 Flow Rate FiO2 02/22/18 07:55 96.3 100 18 159/75 (103) 100 96.3 02/22/18 04:02 97.9 86 19 133/71 (91) 97 97.9 02/22/18 00:37 97.7 81 19 126/64 (84) 98 97.7 02/22/18 00:00 99 02/21/18 21:00 Room Air 02/21/18 20:00 76 02/21/18 19:19 98.1 89 18 135/78 (97) 99 98.1 02/21/18 16:00 84 02/21/18 16:00 98.8 96 22 136/86 (103) 98 98.8 02/21/18 12:00 79 02/21/18 12:00 98.7 86 20 136/88 (104) 100 98.7 02/21/18 11:21 71 18 138/83 (101) 100 02/21/18 11:00 77 18 142/81 (101) 100 02/21/18 10:50 69 18 156/79 (104) 95 02/21/18 09:00 Room Air Intake and Output 02/21/18 02/22/18 19:00 07:00 # Voids 2 Laboratory Tests 02/21/18 11:45: White Blood Count 9.6, Red Blood Count 3.25L, Hemoglobin 9.4L, Hematocrit 29.9L , Mean Corpuscular Volume 92, Mean Corpuscular Hemoglobin 29.0, Mean Corpuscular Hemoglobin Concent 31.4L, Red Cell Distribution Width 17.2H, Platelet Count 288, Mean Platelet Volume 6.2L, Neutrophils (%) (Auto) 82.4H, Lymphocytes (%) (Auto) 9.4L, Monocytes (%) (Auto) 7.5, Eosinophils (%) (Auto) 0.3, Basophils (%) (Auto) 0.3, Sodium Level 143, Potassium Level 3.5, Chloride Level 109H, Carbon Dioxide Level 24, Anion Gap 10, Blood Urea Nitrogen 9, Creatinine 0.7, Estimat Glomerular Filtration Rate , Glucose Level 104, Calcium Level 8.5 02/21/18 16:15: White Blood Count 11.2H, Red Blood Count 3.68L, Hemoglobin 11.1L, Hematocrit 35.4L, Mean Corpuscular Volume 96, Mean Corpuscular Hemoglobin 30.1, Mean Corpuscular Hemoglobin Concent 31.4L, Red Cell Distribution Width 17.1H, Platelet Count 304, Mean Platelet Volume 7.0, Neutrophils (%) (Auto) 81.4H, Lymphocytes (%) (Auto) 10.5L, Monocytes (%) (Auto) 7.3, Eosinophils (%) (Auto) 0.5, Basophils (%) (Auto) 0.3 02/22/18 08:15: Sodium Level [Pending], Potassium Level [Pending], Chloride Level [Pending], Carbon Dioxide Level [Pending], Blood Urea Nitrogen [Pending], Creatinine [ Pending], Estimat Glomerular Filtration Rate [Pending], Glucose Level [Pending] , Calcium Level [Pending] Height (Feet): 5 Height (Inches): 6.00 Weight (Pounds): 120 Objective GENERAL: Alert and awake. LUNGS: Decreased breath sounds bilaterally. HEART: S1 and S2 regular. ABDOMEN: Benign. EXTREMITIES: No CCE noted. Right hip bandages placed. NEURO: No changes. Efren Beltran Feb 22, 2018 08:57
[2018-02-22 09:05] LABS: ANION GAP 14 mmol/L (5-15); BLOOD UREA NITROGEN 12 mg/dL (7-18); CALCIUM 8.3 MG/DL (8.5-10.1); CARBON DIOXIDE 18 MMOL/L (21-32); CHLORIDE 109 MMOL/L (98-107); CREATININE 0.6 MG/DL (0.55-1.30); POTASSIUM 4.6 MMOL/L (3.5-5.1); SODIUM 141 MMOL/L (136-145)
[2018-02-22] MEDS: Docusate 100mg cap ORAL SCH ×3 (09:23→17:35)
[2018-02-22] MEDS: Atenolol 25mg tab ORAL SCH (09:23)
[2018-02-22] MEDS: Losartan 25mg tab ORAL SCH (09:23)
[2018-02-22] MEDS: Heparin 5000 units/ml inj SUBQ SCH ×2 (09:26→21:25)
--- NOTE | 2018-02-22 10:38 | General Progress Note ---
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 SNOMED: [id number] (2) encephalopathy due to Assessment & Plan: encephalopathy due to metabolic condition -seroquel prn -provided ro/st Status: deteriorating Assessment/Plan encephalopathy due to metabolic condition -seroquel prn -provided ro/st -seroquel standing -dc haldol -dc sitter -restraints Subjective Date patient seen: Feb 22, 2018 Neurologic/Psychiatric: Reports: anxiety, emotional problems Allergies: Coded Allergies: No Known Allergies (Unverified , 08/10/13) Subjective the pt was agitated and had a sitter pulls out IV noncompliance Objective Last 24 Hour Vital Signs Date Time Temp Pulse Resp B/P (MAP) Pulse Ox O2 Delivery O2 Flow Rate FiO2 02/22/18 09:23 159/75 02/22/18 09:23 100 159/75 02/22/18 07:55 96.3 100 18 159/75 (103) 100 96.3 02/22/18 04:02 97.9 86 19 133/71 (91) 97 97.9 02/22/18 00:37 97.7 81 19 126/64 (84) 98 97.7 02/22/18 00:00 99 02/21/18 21:00 Room Air 02/21/18 20:00 76 02/21/18 19:19 98.1 89 18 135/78 (97) 99 98.1 02/21/18 16:00 84 02/21/18 16:00 98.8 96 22 136/86 (103) 98 98.8 02/21/18 12:00 79 02/21/18 12:00 98.7 86 20 136/88 (104) 100 98.7 02/21/18 11:21 71 18 138/83 (101) 100 02/21/18 11:00 77 18 142/81 (101) 100 02/21/18 10:50 69 18 156/79 (104) 95 Intake and Output 02/21/18 02/22/18 19:00 07:00 # Voids 2 Laboratory Tests 02/21/18 11:45: White Blood Count 9.6, Red Blood Count 3.25L, Hemoglobin 9.4L, Hematocrit 29.9L , Mean Corpuscular Volume 92, Mean Corpuscular Hemoglobin 29.0, Mean Corpuscular Hemoglobin Concent 31.4L, Red Cell Distribution Width 17.2H, Platelet Count 288, Mean Platelet Volume 6.2L, Neutrophils (%) (Auto) 82.4H, Lymphocytes (%) (Auto) 9.4L, Monocytes (%) (Auto) 7.5, Eosinophils (%) (Auto) 0.3, Basophils (%) (Auto) 0.3, Sodium Level 143, Potassium Level 3.5, Chloride Level 109H, Carbon Dioxide Level 24, Anion Gap 10, Blood Urea Nitrogen 9, Creatinine 0.7, Estimat Glomerular Filtration Rate , Glucose Level 104, Calcium Level 8.5 02/21/18 16:15: White Blood Count 11.2H, Red Blood Count 3.68L, Hemoglobin 11.1L, Hematocrit 35.4L, Mean Corpuscular Volume 96, Mean Corpuscular Hemoglobin 30.1, Mean Corpuscular Hemoglobin Concent 31.4L, Red Cell Distribution Width 17.1H, Platelet Count 304, Mean Platelet Volume 7.0, Neutrophils (%) (Auto) 81.4H, Lymphocytes (%) (Auto) 10.5L, Monocytes (%) (Auto) 7.3, Eosinophils (%) (Auto) 0.5, Basophils (%) (Auto) 0.3 02/22/18 08:15: Sodium Level 141, Potassium Level 4.6, Chloride Level 109H, Carbon Dioxide Level 18L, Anion Gap 14, Blood Urea Nitrogen 12, Creatinine 0.6, Estimat Glomerular Filtration Rate , Glucose Level 155H, Calcium Level 8.3L Height (Feet): 5 Height (Inches): 6.00 Weight (Pounds): 120 General Appearance: alert, confused, agitated Lena Bob MD Feb 22, 2018 10:38
[2018-02-22 12:00] VITALS: BP 154/85
--- NOTE | 2018-02-22 12:04 | Pulmonology Progress Note ---
Assessment/Plan Problems: (1) Fracture of femoral neck, right, closed (2) Pacemaker (3) HTN (hypertension) (4) CAD (coronary artery disease) (5) Sick sinus syndrome (6) Hip fracture, right (7) Hypercholesterolemia Assessment/Plan sinus rhythm, v-paced\ confused doing better surgery done yesterday titrate cardiology meds symptomatic treatment pt/ot dc planning Subjective ROS Limited/Unobtainable: Yes Interval Events: confused HEENT: Repors: no symptoms Allergies: Coded Allergies: No Known Allergies (Unverified , 08/10/13) Objective Last 24 Hour Vital Signs Date Time Temp Pulse Resp B/P (MAP) Pulse Ox O2 Delivery O2 Flow Rate FiO2 02/22/18 09:23 159/75 02/22/18 09:23 100 159/75 02/22/18 07:55 96.3 100 18 159/75 (103) 100 96.3 02/22/18 04:02 97.9 86 19 133/71 (91) 97 97.9 02/22/18 00:37 97.7 81 19 126/64 (84) 98 97.7 02/22/18 00:00 99 02/21/18 21:00 Room Air 02/21/18 20:00 76 02/21/18 19:19 98.1 89 18 135/78 (97) 99 98.1 02/21/18 16:00 84 02/21/18 16:00 98.8 96 22 136/86 (103) 98 98.8 02/21/18 12:00 79 02/21/18 12:00 98.7 86 20 136/88 (104) 100 98.7 Intake and Output 02/21/18 02/22/18 19:00 07:00 # Voids 2 Objective General Appearance: WD/WN HEENT: normocephalic, anicteric Breasts: no masses Cardiovascular: normal peripheral pulses, regular rhythm Abdomen: soft, non tender, no organomegaly Extremities: no cyanosis Skin: no rash Microbiology Date/Time Source Procedure Growth Status 02/19/18 18:45 Blood Blood Culture - Preliminary NO GROWTH AFTER 48 HOURS Resulted 02/19/18 18:30 Blood Blood Culture - Preliminary NO GROWTH AFTER 48 HOURS Resulted Laboratory Tests 02/21/18 16:15: White Blood Count 11.2H, Red Blood Count 3.68L, Hemoglobin 11.1L, Hematocrit 35.4L, Mean Corpuscular Volume 96, Mean Corpuscular Hemoglobin 30.1, Mean Corpuscular Hemoglobin Concent 31.4L, Red Cell Distribution Width 17.1H, Platelet Count 304, Mean Platelet Volume 7.0, Neutrophils (%) (Auto) 81.4H, Lymphocytes (%) (Auto) 10.5L, Monocytes (%) (Auto) 7.3, Eosinophils (%) (Auto) 0.5, Basophils (%) (Auto) 0.3 02/22/18 08:15: Sodium Level 141, Potassium Level 4.6, Chloride Level 109H, Carbon Dioxide Level 18L, Anion Gap 14, Blood Urea Nitrogen 12, Creatinine 0.6, Estimat Glomerular Filtration Rate , Glucose Level 155H, Calcium Level 8.3L Current Medications Medications (Trade) Dose Ordered Sig/Yi Route PRN Reason Start Time Stop Time Status Last Admin Dose Admin Acetaminophen (Tylenol) 650 mg Q4H PRN ORAL moderate pain/fever 02/21/18 16:15 03/18/18 16:14 Acetaminophen/ Hydrocodone Bitart ([place] 5/325) 1 tab Q4H PRN ORAL severe pain 02/21/18 16:15 02/26/18 16:14 02/22/18 02:52 Al Hydroxide/Mg Hydroxide (Mylanta II) 30 ml Q6H PRN ORAL dyspepsia 02/21/18 15:16 03/18/18 15:15 Atenolol (Tenormin) 25 mg DAILY ORAL 02/22/18 09:00 03/19/18 08:59 02/22/18 09:23 Ceftriaxone Sodium 1 gm/ Dextrose 55 ml @ 110 mls/hr Q24H IVPB 02/22/18 12:30 02/27/18 12:29 Dextrose (Dextrose 50%) 25 ml Q30M PRN IV Hypoglycemia 02/21/18 15:30 03/18/18 14:25 Dextrose (Dextrose 50%) 50 ml Q30M PRN IV hypoglycemia 02/21/18 15:30 03/18/18 14:29 Docusate Sodium (Colace) 100 mg THREE TIMES A DAY ORAL 02/21/18 18:00 03/20/18 17:59 02/22/18 09:23 Ferrous Sulfate (Feosol) 325 mg TIAC ORAL 02/21/18 16:30 03/23/18 16:29 02/22/18 06:04 Heparin Sodium (Porcine) (Heparin 5000 units/ml) 5,000 units EVERY 12 HOURS SUBQ 02/21/18 21:00 03/18/18 20:59 02/22/18 09:26 Losartan Potassium (Cozaar) 25 mg DAILY ORAL 02/22/18 09:00 03/19/18 08:59 02/22/18 09:23 Magnesium Hydroxide (Mom) 30 ml DAILYPRN PRN ORAL Constipation 02/21/18 15:19 03/20/18 15:18 Ondansetron HCl (Zofran) 4 mg Q6H PRN IVP Nausea & Vomiting 02/21/18 15:19 03/18/18 15:18 Polyethylene Glycol (Miralax) 17 gm HSPRN PRN ORAL Constipation 02/21/18 15:25 03/23/18 15:18 Potassium Chloride (K-Dur) 20 meq DAILY ORAL 02/22/18 09:00 03/22/18 20:59 02/22/18 09:24 Prochlorperazine (Compazine) 10 mg Q6H PRN IVP Nausea & Vomiting 02/21/18 15:20 03/20/18 15:19 Quetiapine Fumarate (SEROquel) 25 mg Q4H PRN ORAL agitation 02/22/18 11:20 03/24/18 11:19 Quetiapine Fumarate (SEROquel) 25 mg QHS ORAL 02/21/18 21:00 03/19/18 00:29 02/21/18 21:12 Rod Mancera MD Feb 22, 2018 12:04
--- NOTE | 2018-02-22 12:13 | Infectious Diseases Prog Note ---
Assessment/Plan Assessment/Plan ASSESSMENT: The patient is an 82-year-old female with: Mild leukocytosis Probable urinary tract infection. Urine culture, E. coli. (R amp, bactrim otherwise S) Probable pneumonia. Probable sepsis (history of several falls and altered level of consciousness), this may be due to an infectious process. Neg: HIV< Hep panel Right hip fracture status post ORIF. Diabetes. Hypertension. Sick sinus syndrome. History of non-ST elevation. History of coronary artery bypass surgery. History of pacemaker in 2017. History of pacemaker implantation. PLAN: - cont on Rocephin d # 07/20- - Monitor CBC. BMP - Monitor CXR. - Monitor cultures, urine and blood. -CBC, CXR am Subjective Allergies: Coded Allergies: No Known Allergies (Unverified , 08/10/13) Subjective afebrile mild leukocytosis, no cbc today Objective Vital Signs Last 24 Hour Vital Signs Date Time Temp Pulse Resp B/P (MAP) Pulse Ox O2 Delivery O2 Flow Rate FiO2 02/22/18 09:23 159/75 02/22/18 09:23 100 159/75 02/22/18 07:55 96.3 100 18 159/75 (103) 100 96.3 02/22/18 04:02 97.9 86 19 133/71 (91) 97 97.9 02/22/18 00:37 97.7 81 19 126/64 (84) 98 97.7 02/22/18 00:00 99 02/21/18 21:00 Room Air 02/21/18 20:00 76 02/21/18 19:19 98.1 89 18 135/78 (97) 99 98.1 02/21/18 16:00 84 02/21/18 16:00 98.8 96 22 136/86 (103) 98 98.8 Height (Feet): 5 Height (Inches): 6.00 Weight (Pounds): 120 Objective General Appearance: WD/WN HEENT: normocephalic, anicteric Breasts: no masses Cardiovascular: normal peripheral pulses, regular rhythm Abdomen: soft, non tender, no organomegaly Extremities: no cyanosis Skin: no rash Microbiology Date/Time Source Procedure Growth Status 02/19/18 18:45 Blood Blood Culture - Preliminary NO GROWTH AFTER 48 HOURS Resulted 02/19/18 18:30 Blood Blood Culture - Preliminary NO GROWTH AFTER 48 HOURS Resulted Laboratory Tests Test 02/21/18 16:15 02/22/18 08:15 White Blood Count 11.2 K/UL (4.8-10.8) H Red Blood Count 3.68 M/UL (4.20-5.40) L Hemoglobin 11.1 G/DL (12.0-16.0) L Hematocrit 35.4 % (37.0-47.0) L Mean Corpuscular Volume 96 FL (80-99) Mean Corpuscular Hemoglobin 30.1 PG (27.0-31.0) Mean Corpuscular Hemoglobin Concent 31.4 G/DL (32.0-36.0) L Red Cell Distribution Width 17.1 % (11.6-14.8) H Platelet Count 304 K/UL (150-450) Mean Platelet Volume 7.0 FL (6.5-10.1) Neutrophils (%) (Auto) 81.4 % (45.0-75.0) H Lymphocytes (%) (Auto) 10.5 % (20.0-45.0) L Monocytes (%) (Auto) 7.3 % (1.0-10.0) Eosinophils (%) (Auto) 0.5 % (0.0-3.0) Basophils (%) (Auto) 0.3 % (0.0-2.0) Sodium Level 141 MMOL/L (136-145) Potassium Level 4.6 MMOL/L (3.5-5.1) Chloride Level 109 MMOL/L (98-107) H Carbon Dioxide Level 18 MMOL/L (21-32) L Anion Gap 14 mmol/L (5-15) Blood Urea Nitrogen 12 mg/dL (7-18) Creatinine 0.6 MG/DL (0.55-1.30) Estimat Glomerular Filtration Rate mL/min (>60) Glucose Level 155 MG/DL (74-106) H Calcium Level 8.3 MG/DL (8.5-10.1) L Current Medications Medications (Trade) Dose Ordered Sig/Yi Route PRN Reason Start Time Stop Time Status Last Admin Dose Admin Acetaminophen (Tylenol) 650 mg Q4H PRN ORAL moderate pain/fever 02/21/18 16:15 03/18/18 16:14 Acetaminophen/ Hydrocodone Bitart ([place] 5/325) 1 tab Q4H PRN ORAL severe pain 02/21/18 16:15 02/26/18 16:14 02/22/18 02:52 Al Hydroxide/Mg Hydroxide (Mylanta II) 30 ml Q6H PRN ORAL dyspepsia 02/21/18 15:16 03/18/18 15:15 Atenolol (Tenormin) 25 mg DAILY ORAL 02/22/18 09:00 03/19/18 08:59 02/22/18 09:23 Ceftriaxone Sodium 1 gm/ Dextrose 55 ml @ 110 mls/hr Q24H IVPB 02/22/18 12:30 02/27/18 12:29 Dextrose (Dextrose 50%) 25 ml Q30M PRN IV Hypoglycemia 02/21/18 15:30 03/18/18 14:25 Dextrose (Dextrose 50%) 50 ml Q30M PRN IV hypoglycemia 02/21/18 15:30 03/18/18 14:29 Docusate Sodium (Colace) 100 mg THREE TIMES A DAY ORAL 02/21/18 18:00 03/20/18 17:59 02/22/18 09:23 Ferrous Sulfate (Feosol) 325 mg TIAC ORAL 02/21/18 16:30 03/23/18 16:29 02/22/18 06:04 Heparin Sodium (Porcine) (Heparin 5000 units/ml) 5,000 units EVERY 12 HOURS SUBQ 02/21/18 21:00 03/18/18 20:59 02/22/18 09:26 Losartan Potassium (Cozaar) 25 mg DAILY ORAL 02/22/18 09:00 03/19/18 08:59 02/22/18 09:23 Magnesium Hydroxide (Mom) 30 ml DAILYPRN PRN ORAL Constipation 02/21/18 15:19 03/20/18 15:18 Ondansetron HCl (Zofran) 4 mg Q6H PRN IVP Nausea & Vomiting 02/21/18 15:19 03/18/18 15:18 Polyethylene Glycol (Miralax) 17 gm HSPRN PRN ORAL Constipation 02/21/18 15:25 03/23/18 15:18 Potassium Chloride (K-Dur) 20 meq DAILY ORAL 02/22/18 09:00 03/22/18 20:59 02/22/18 09:24 Prochlorperazine (Compazine) 10 mg Q6H PRN IVP Nausea & Vomiting 02/21/18 15:20 03/20/18 15:19 Quetiapine Fumarate (SEROquel) 25 mg Q4H PRN ORAL agitation 02/22/18 11:20 03/24/18 11:19 Quetiapine Fumarate (SEROquel) 25 mg QHS ORAL 02/21/18 21:00 03/19/18 00:29 02/21/18 21:12 Roseann Bardales M.D. Feb 22, 2018 12:13
[2018-02-22] MEDS: cefTRIAXone 1 GM in D5W 55 ML IVPB SCH (14:23)
--- NOTE | 2018-02-22 14:44 | Cardiology Report ---
APPROVED REPORT EKG Measurement Heart [id number] ID [id number] Normal sinus rhythm Septal infarct, age undetermined Lateral infarct, age undetermined Abnormal ECG
--- NOTE | 2018-02-22 14:56 | Cardiology Report ---
APPROVED REPORT EKG Measurement Heart [id number] Left axis deviation Left ventricular hypertrophy with repolarization abnormality Possible Lateral infarct, age undetermined Abnormal ECG
[2018-02-22 16:00] VITALS: BP 120/79
--- NOTE | 2018-02-22 19:23 | Internal Med Progress Note ---
Subjective Date of Service: Feb 22, 2018 Physician Name Aquilino Matthews Attending Physician Carlos Alberto Berkowitz MD Current Medications Medications (Trade) Dose Ordered Sig/Yi Route PRN Reason Start Time Stop Time Status Last Admin Dose Admin Acetaminophen (Tylenol) 650 mg Q4H PRN ORAL moderate pain/fever 02/21/18 16:15 03/18/18 16:14 Acetaminophen/ Hydrocodone Bitart ([place] 5/325) 1 tab Q4H PRN ORAL severe pain 02/21/18 16:15 02/26/18 16:14 02/22/18 02:52 Al Hydroxide/Mg Hydroxide (Mylanta II) 30 ml Q6H PRN ORAL dyspepsia 02/21/18 15:16 03/18/18 15:15 Atenolol (Tenormin) 25 mg DAILY ORAL 02/22/18 09:00 03/19/18 08:59 02/22/18 09:23 Ceftriaxone Sodium 1 gm/ Dextrose 55 ml @ 110 mls/hr Q24H IVPB 02/22/18 12:30 02/27/18 12:29 02/22/18 14:23 Dextrose (Dextrose 50%) 25 ml Q30M PRN IV Hypoglycemia 02/21/18 15:30 03/18/18 14:25 Dextrose (Dextrose 50%) 50 ml Q30M PRN IV hypoglycemia 02/21/18 15:30 03/18/18 14:29 Docusate Sodium (Colace) 100 mg THREE TIMES A DAY ORAL 02/21/18 18:00 03/20/18 17:59 02/22/18 17:35 Ferrous Sulfate (Feosol) 325 mg TIAC ORAL 02/21/18 16:30 03/23/18 16:29 02/22/18 17:35 Heparin Sodium (Porcine) (Heparin 5000 units/ml) 5,000 units EVERY 12 HOURS SUBQ 02/21/18 21:00 03/18/18 20:59 02/22/18 09:26 Losartan Potassium (Cozaar) 25 mg DAILY ORAL 02/22/18 09:00 03/19/18 08:59 02/22/18 09:23 Magnesium Hydroxide (Mom) 30 ml DAILYPRN PRN ORAL Constipation 02/21/18 15:19 03/20/18 15:18 Ondansetron HCl (Zofran) 4 mg Q6H PRN IVP Nausea & Vomiting 02/21/18 15:19 03/18/18 15:18 Polyethylene Glycol (Miralax) 17 gm HSPRN PRN ORAL Constipation 02/21/18 15:25 03/23/18 15:18 Potassium Chloride (K-Dur) 20 meq DAILY ORAL 02/22/18 09:00 03/22/18 20:59 02/22/18 09:24 Prochlorperazine (Compazine) 10 mg Q6H PRN IVP Nausea & Vomiting 02/21/18 15:20 03/20/18 15:19 Quetiapine Fumarate (SEROquel) 25 mg Q4H PRN ORAL agitation 02/22/18 11:20 03/24/18 11:19 Quetiapine Fumarate (SEROquel) 25 mg QHS ORAL 02/21/18 21:00 03/19/18 00:29 02/21/18 21:12 Allergies: Coded Allergies: No Known Allergies (Unverified , 08/10/13) ROS Limited/Unobtainable: No Constitutional: Reports: no symptoms HEENT: Reports: no symptoms Cardiovascular: Reports: no symptoms Respiratory: Reports: no symptoms Gastrointestinal/Abdominal: Reports: no symptoms Genitourinary: Reports: no symptoms Neurologic/Psychiatric: Reports: no symptoms Subjective 82 YO F admitted with right hip pain; S/P fall. Now right femoral neck fracture. Cover for Int Med-Dr Berkowitz. S/P ORIF right hip fracture 02/18/18. Patient had syncopal episode transferring from chair to bed today-now on Tele Objective Last Vital Signs Date Time Temp Pulse Resp B/P (MAP) Pulse Ox O2 Delivery O2 Flow Rate FiO2 02/22/18 16:00 97.7 85 18 120/79 (93) 99 97.7 02/22/18 09:00 Room Air 02/18/18 19:40 3 Laboratory Tests Test 02/22/18 08:15 Sodium Level 141 MMOL/L (136-145) Potassium Level 4.6 MMOL/L (3.5-5.1) Chloride Level 109 MMOL/L (98-107) H Carbon Dioxide Level 18 MMOL/L (21-32) L Anion Gap 14 mmol/L (5-15) Blood Urea Nitrogen 12 mg/dL (7-18) Creatinine 0.6 MG/DL (0.55-1.30) Estimat Glomerular Filtration Rate mL/min (>60) Glucose Level 155 MG/DL (74-106) H Calcium Level 8.3 MG/DL (8.5-10.1) L Intake and Output 02/21/18 02/22/18 19:00 07:00 # Voids 2 Objective PHYSICAL EXAMINATION: GENERAL: The patient is well-developed and well-nourished thin-appearing white female, in no apparent distress. HEENT: Eyes, pupils are equal and responsive to light and accommodation. Extraocular movements are intact. NECK: Supple without lymphadenopathy. CHEST: Lungs are clear to auscultation bilaterally without wheezes or rales. CARDIOVASCULAR: Regular rhythm and rate. S1 and S2 are normal without murmurs, rubs, or gallops. ABDOMEN: Soft, nontender, and nondistended. Positive bowel sounds. No evidence of hepatosplenomegaly. Currently, no rebound or guarding noted. EXTREMITIES: Negative for clubbing, cyanosis, or edema. Pain to palp right hip RECTAL/GENITAL: Refused. NEUROLOGIC: Cranial nerves II through XII are grossly intact without focal deficits. Motor strength is 5/5 bilaterally. Deep tendon reflexes are 2+ plantar. Assessment/Plan Problem List: (1) Hypercholesterolemia (2) CAD (coronary artery disease) Assessment & Plan: see dardiology note (3) Fracture of femoral neck, right, closed Assessment & Plan: S/P ORIF 02/18/18-see ortho note. (4) HTN (hypertension) (5) Sick sinus syndrome Assessment & Plan: S/P pacemaker (6) Pacemaker (7) UTI (urinary tract infection) Assessment & Plan: E.Coli. Continue rocephin per ID (8) E coli infection (9) Syncope Assessment & Plan: ?vasovagal vs hypoglycemia? Transfer to [facility] Status: stable Assessment/Plan Discharge planning: SNF vs Acute rehab Aquilino Matthews MD Feb 22, 2018 19:23
[2018-02-22 20:00] VITALS: BP 145/82
--- NOTE | 2018-02-22 21:38 | Consultation ---
History of Present Illness General Date patient seen: Feb 22, 2018 Time patient seen: 15:23 Chief Complaint: Pain Present Illness HPI 82 year old female complains of right hip and right leg pain, 10/10 pain score and noted screaming and swelling noted on right ankle. The patient was admitted to [facility] from 01/31/2018 to 02/06/2018. The patient was status post non-ST elevated myocardial infarction. The patient also had congestive heart failure. The patient has been falling since she returned home. The patient presented to [facility] emergency room after being found on the floor. The patient was complaining of right hip pain. A CT scan of the right hip revealed comminuted fracture of the right femoral neck. The patient is admitted for right femoral neck fracture. Limited 2-D Echo study due to pt's resistance. Moderate left ventricular enlargement. Global left ventricular hypokinesis, worse in posterior wall. Left ventricular ejection fraction estimated to be 30-35 %. Increased E point-interventricular septal separation c/w left ventricular dysfunction. Mild left ventricular hypertrophy. No evidence of pericardial effusion. Moderate bi-atrial enlargement. Right cardiac chamber size is within normal limits. Aortic valve calcification with decreased cusp excursion c/w aortic stenosis. Thickened mitral valve leaflets with normal excursion. Moderate mitral annulus and aortic root calcification. Normal pulmonic valve structure. Normal tricuspid valve structure. No subcostal views obtained. Pacemaker wire present in the right side chambers. A color flow and spectral Doppler study was performed and revealed: Mild aortic insufficiency. Peak aortic valve gradient of 20 mmHg and a mean of 8 mmHg. Aortic valve area 1.2 cm2 calculated by continuity equation suggestive of mild to moderate aortic stenosis. Moderate mitral regurgitation. Mitral inflow velocities indicates possible pseudo normalization pattern implying moderately elevated left atrial pressure (Grade II ). Moderate tricuspid regurgitation. Tricuspid systolic velocities suggests peak right ventricular systolic pressure of 82 mmHg, consistent with severe pulmonary hypertension. Moderate pulmonic regurgitation present. Allergies: Coded Allergies: No Known Allergies (Unverified , 08/10/13) Medication History Scheduled Amoxicillin/Potassium Clav 875-125* (Augmentin 875-125 Tablet*), 1 TAB ORAL TWICE A DAY Aspirin (Aspirin EC), 81 MG ORAL DAILY, (Reported) Atenolol (Tenormin), 25 MG ORAL DAILY, (Reported) Clonazepam* (Klonopin*), 0.5 MG ORAL Q6H, (Reported) Clonidine Hcl* (Catapres*), 0.1 MG ORAL EVERY 8 HOURS, (Reported) Clopidogrel* (Clopidogrel*), 75 MG ORAL DAILY, (Reported) Dicyclomine Hcl* (Dicyclomine Hcl*), 10 MG PO QID Famotidine (Pepcid), 20 MG ORAL BEDTIME Furosemide* (Lasix*), 40 MG ORAL DAILY, (Reported) Losartan Potassium* (Losartan Potassium*), 25 MG ORAL DAILY, (Reported) Metoprolol Succinate* (Metoprolol Succinate*), 50 MG ORAL DAILY, (Reported) No Known Medications* (NKM - No Known Medications*), 0 ., (Reported) Potassium Chloride (Potassium Chloride), 10 MEQ ORAL DAILY, (Reported) Rosuvastatin Calcium* (Crestor*), 10 MG ORAL DAILY, (Reported) Sitagliptin Phos/Metformin Hcl (Janumet Xr 50-1,000 Mg Tablet), 1 TAB ORAL DAILY , (Reported) Trazodone* (Trazodone*), 50 MG ORAL BEDTIME, (Reported) Vitamin D (Vitamin D3), 5,000 UNITS ORAL DAILY, (Reported) Scheduled PRN Hydrocodone Bit/Acetaminophen 5-325* ([place] 5-325*), 1 TAB ORAL Q6H PRN for For Pain Miscellaneous Medications Unable to Obtain Medications (Unable To Obtain Meds), (Reported) Patient History Healthcare decision maker Resuscitation status Full Code Advanced Directive on File Review of Systems Constitutional: Reports: no symptoms Eye: Reports: no symptoms ENT: Reports: no symptoms Respiratory: Reports: no symptoms Cardiovascular: Reports: no symptoms Gastrointestinal: Reports: no symptoms Genitourinary: Reports: no symptoms Musculoskeletal: Reports: no symptoms Skin: Reports: no symptoms Psychiatric: Reports: no symptoms Neurological: Reports: no symptoms Endocrine: Reports: no symptoms Hematologic/Lymphatic: Reports: no symptoms Physical Exam General Appearance: no apparent distress, lethargic, confused Lines, tubes and drains: peripheral HEENT: normocephalic, atraumatic, anicteric, mucous membranes moist, PERRL Neck: non-tender, normal alignment, supple, normal inspection Respiratory/Chest: chest wall non-tender, lungs clear, normal breath sounds Cardiovascular/Chest: normal peripheral pulses, normal rate, regular rhythm, diastolic murmur, systolic murmur, gallop/S3, gallop/S4, pacemaker/AICD Abdomen: normal bowel sounds, non tender Extremities: normal range of motion, non-tender, normal inspection 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, 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 Last 24 Hour Vital Signs Date Time Temp Pulse Resp B/P (MAP) Pulse Ox O2 Delivery O2 Flow Rate FiO2 02/22/18 16:00 97.7 85 18 120/79 (93) 99 97.7 02/22/18 16:00 98 02/22/18 12:00 97.7 79 18 154/85 (108) 100 97.7 02/22/18 12:00 84 02/22/18 09:23 159/75 02/22/18 09:23 100 159/75 02/22/18 09:00 Room Air 02/22/18 07:55 96.3 100 18 159/75 (103) 100 96.3 02/22/18 04:02 97.9 86 19 133/71 (91) 97 97.9 02/22/18 00:37 97.7 81 19 126/64 (84) 98 97.7 02/22/18 00:00 99 Intake and Output 02/21/18 02/22/18 19:00 07:00 # Voids 2 Laboratory Tests Test 02/22/18 08:15 Sodium Level 141 MMOL/L (136-145) Potassium Level 4.6 MMOL/L (3.5-5.1) Chloride Level 109 MMOL/L (98-107) H Carbon Dioxide Level 18 MMOL/L (21-32) L Anion Gap 14 mmol/L (5-15) Blood Urea Nitrogen 12 mg/dL (7-18) Creatinine 0.6 MG/DL (0.55-1.30) Estimat Glomerular Filtration Rate mL/min (>60) Glucose Level 155 MG/DL (74-106) H Calcium Level 8.3 MG/DL (8.5-10.1) L Height (Feet): 5 Height (Inches): 6.00 Weight (Pounds): 120 Medications Current Medications Medications (Trade) Dose Ordered Sig/Yi Route PRN Reason Start Time Stop Time Status Last Admin Dose Admin Acetaminophen (Tylenol) 650 mg Q4H PRN ORAL moderate pain/fever 02/21/18 16:15 03/18/18 16:14 Acetaminophen/ Hydrocodone Bitart ([place] 5/325) 1 tab Q4H PRN ORAL severe pain 02/21/18 16:15 02/26/18 16:14 02/22/18 02:52 Al Hydroxide/Mg Hydroxide (Mylanta II) 30 ml Q6H PRN ORAL dyspepsia 02/21/18 15:16 03/18/18 15:15 Atenolol (Tenormin) 25 mg DAILY ORAL 02/22/18 09:00 03/19/18 08:59 02/22/18 09:23 Ceftriaxone Sodium 1 gm/ Dextrose 55 ml @ 110 mls/hr Q24H IVPB 02/22/18 12:30 02/27/18 12:29 02/22/18 14:23 Dextrose (Dextrose 50%) 25 ml Q30M PRN IV Hypoglycemia 02/21/18 15:30 03/18/18 14:25 Dextrose (Dextrose 50%) 50 ml Q30M PRN IV hypoglycemia 02/21/18 15:30 03/18/18 14:29 Docusate Sodium (Colace) 100 mg THREE TIMES A DAY ORAL 02/21/18 18:00 03/20/18 17:59 02/22/18 17:35 Ferrous Sulfate (Feosol) 325 mg TIAC ORAL 02/21/18 16:30 03/23/18 16:29 02/22/18 17:35 Heparin Sodium (Porcine) (Heparin 5000 units/ml) 5,000 units EVERY 12 HOURS SUBQ 02/21/18 21:00 03/18/18 20:59 02/22/18 21:25 Losartan Potassium (Cozaar) 25 mg DAILY ORAL 02/22/18 09:00 03/19/18 08:59 02/22/18 09:23 Magnesium Hydroxide (Mom) 30 ml DAILYPRN PRN ORAL Constipation 02/21/18 15:19 03/20/18 15:18 Ondansetron HCl (Zofran) 4 mg Q6H PRN IVP Nausea & Vomiting 02/21/18 15:19 03/18/18 15:18 Polyethylene Glycol (Miralax) 17 gm HSPRN PRN ORAL Constipation 02/21/18 15:25 03/23/18 15:18 Potassium Chloride (K-Dur) 20 meq DAILY ORAL 10/8/18 09:00 03/22/18 20:59 02/22/18 09:24 Prochlorperazine (Compazine) 10 mg Q6H PRN IVP Nausea & Vomiting 02/21/18 15:20 03/20/18 15:19 Quetiapine Fumarate (SEROquel) 25 mg Q4H PRN ORAL agitation 02/22/18 11:20 03/24/18 11:19 Quetiapine Fumarate (SEROquel) 25 mg QHS ORAL 02/21/18 21:00 03/19/18 00:29 02/22/18 21:17 Assessment/Plan Status: stable Assessment/Plan Assessment: 1. Diabetes, type 2. 2. Hypertension. 3. Sick sinus syndrome. 4. Hypercholesterolemia. 5. Non ST elevated myocardial infarction as above. 6. Coronary artery bypass graft in 2016. 7. Pacemaker generator change in 2016. 8. History of elbow debridement. 9. Pacemaker implantation in 2013. 10. Hip fracture s/p sugery 02/18 11. Aortic stenosis 12. Mitral regurgitation Plan: Pain control Incentive spirometry Aspirin Crestor TTE: LVEF 35% with and MR and elevated filling pressures -change atenolol to coreg 3.125 BID and titrate to max tolerated -Losartan -Add aldactone -CV stable, no indication for cath/stress test at this time Johnnie Herrera MD Feb 22, 2018 21:38
--- NOTE | 2018-02-22 23:32 | Psych Consult Progress Note ---
Psych Consult Progress Note Consult 02/21/18 Vital Signs Last 24 Hour Vital Signs Date Time Temp Pulse Resp B/P (MAP) Pulse Ox O2 Delivery O2 Flow Rate FiO2 02/22/18 21:00 Room Air 02/22/18 20:00 98.5 87 19 145/82 (103) 95 98.5 02/22/18 20:00 94 02/22/18 16:00 97.7 85 18 120/79 (93) 99 97.7 02/22/18 16:00 98 02/22/18 12:00 97.7 79 18 154/85 (108) 100 97.7 02/22/18 12:00 84 02/22/18 09:23 159/75 02/22/18 09:23 100 159/75 02/22/18 09:00 Room Air 02/22/18 07:55 96.3 100 18 159/75 (103) 100 96.3 02/22/18 04:02 97.9 86 19 133/71 (91) 97 97.9 02/22/18 00:37 97.7 81 19 126/64 (84) 98 97.7 02/22/18 00:00 99 Labs Laboratory Tests Test 02/22/18 08:15 Sodium Level 141 MMOL/L (136-145) Potassium Level 4.6 MMOL/L (3.5-5.1) Chloride Level 109 MMOL/L (98-107) H Carbon Dioxide Level 18 MMOL/L (21-32) L Anion Gap 14 mmol/L (5-15) Blood Urea Nitrogen 12 mg/dL (7-18) Creatinine 0.6 MG/DL (0.55-1.30) Estimat Glomerular Filtration Rate mL/min (>60) Glucose Level 155 MG/DL (74-106) H Calcium Level 8.3 MG/DL (8.5-10.1) L Medications Current Medications Medications (Trade) Dose Ordered Sig/Yi Route PRN Reason Start Time Stop Time Status Last Admin Dose Admin Acetaminophen (Tylenol) 650 mg Q4H PRN ORAL moderate pain/fever 02/21/18 16:15 03/18/18 16:14 Acetaminophen/ Hydrocodone Bitart ([place] 5/325) 1 tab Q4H PRN ORAL severe pain 02/21/18 16:15 02/26/18 16:14 02/22/18 02:52 Al Hydroxide/Mg Hydroxide (Mylanta II) 30 ml Q6H PRN ORAL dyspepsia 02/21/18 15:16 03/18/18 15:15 Atenolol (Tenormin) 25 mg DAILY ORAL 02/22/18 09:00 03/19/18 08:59 02/22/18 09:23 Ceftriaxone Sodium 1 gm/ Dextrose 55 ml @ 110 mls/hr Q24H IVPB 02/22/18 12:30 02/27/18 12:29 02/22/18 14:23 Dextrose (Dextrose 50%) 25 ml Q30M PRN IV Hypoglycemia 02/21/18 15:30 03/18/18 14:25 Dextrose (Dextrose 50%) 50 ml Q30M PRN IV hypoglycemia 02/21/18 15:30 03/18/18 14:29 Docusate Sodium (Colace) 100 mg THREE TIMES A DAY ORAL 02/21/18 18:00 03/20/18 17:59 02/22/18 17:35 Ferrous Sulfate (Feosol) 325 mg TIAC ORAL 02/21/18 16:30 03/23/18 16:29 02/22/18 17:35 Heparin Sodium (Porcine) (Heparin 5000 units/ml) 5,000 units EVERY 12 HOURS SUBQ 02/21/18 21:00 03/18/18 20:59 02/22/18 21:25 Losartan Potassium (Cozaar) 25 mg DAILY ORAL 02/22/18 09:00 03/19/18 08:59 02/22/18 09:23 Magnesium Hydroxide (Mom) 30 ml DAILYPRN PRN ORAL Constipation 02/21/18 15:19 03/20/18 15:18 Ondansetron HCl (Zofran) 4 mg Q6H PRN IVP Nausea & Vomiting 02/21/18 15:19 03/18/18 15:18 Polyethylene Glycol (Miralax) 17 gm HSPRN PRN ORAL Constipation 02/21/18 15:25 03/23/18 15:18 Potassium Chloride (K-Dur) 20 meq DAILY ORAL 02/22/18 09:00 03/22/18 20:59 02/22/18 09:24 Prochlorperazine (Compazine) 10 mg Q6H PRN IVP Nausea & Vomiting 02/21/18 15:20 03/20/18 15:19 Quetiapine Fumarate (SEROquel) 25 mg Q4H PRN ORAL agitation 02/22/18 11:20 03/24/18 11:19 Quetiapine Fumarate (SEROquel) 25 mg QHS ORAL 02/21/18 21:00 03/19/18 00:29 02/22/18 21:17 Problems: (1) Psychosis (2) encephalopathy due to Assessment & Plan: encephalopathy due to metabolic condition -seroquel prn -provided ro/st -seroquel standing Lena Bob MD Feb 22, 2018 23:32
[2018-02-23] VITALS: BP 126/89
[2018-02-23 04:00] VITALS: BP 130/67
[2018-02-23 08:00] VITALS: BP 133/80
[2018-02-23 08:02] LABS: BASOPHILS % (AUTO) 0.3 % (0.0-2.0); EOSINOPHILS % (AUTO) 1.1 % (0.0-3.0); HEMATOCRIT 32.5 % (37.0-47.0); HEMOGLOBIN 10.1 G/DL (12.0-16.0); LYMPHOCYTES % (AUTO) 18.7 % (20.0-45.0); MEAN CORPUSCULAR VOLUME 92 FL (80-99); MONOCYTES % (AUTO) 7.4 % (1.0-10.0); NEUTROPHILS % (AUTO) 72.5 % (45.0-75.0); PLATELET COUNT 210 K/UL (150-450); RED BLOOD COUNT 3.54 M/UL (4.20-5.40); RED CELL DISTRIBUTION WIDTH 16.8 % (11.6-14.8); WHITE BLOOD COUNT 7.4 K/UL (4.8-10.8)
[2018-02-23 08:20] LABS: ALANINE AMINOTRANSFERASE 16 U/L (12-78); ALBUMIN 2.4 G/DL (3.4-5.0); ALBUMIN/GLOBULIN RATIO 0.7 (1.0-2.7); ALKALINE PHOSPHATASE 52 U/L (46-116); ANION GAP 10 mmol/L (5-15); ASPARTATE AMINO TRANSFERASE 31 U/L (15-37); BILIRUBIN,TOTAL 0.4 MG/DL (0.2-1.0); BLOOD UREA NITROGEN 10 mg/dL (7-18); CALCIUM 8.5 MG/DL (8.5-10.1); CARBON DIOXIDE 24 MMOL/L (21-32); CHLORIDE 110 MMOL/L (98-107); CREATININE 0.8 MG/DL (0.55-1.30); POTASSIUM 3.7 MMOL/L (3.5-5.1); SODIUM 144 MMOL/L (136-145)
[2018-02-23] MEDS: Docusate 100mg cap ORAL SCH ×2 (09:16→11:58)
[2018-02-23] MEDS: Atenolol 25mg tab ORAL SCH (09:17)
[2018-02-23] MEDS: Losartan 25mg tab ORAL SCH (09:17)
[2018-02-23] MEDS: Heparin 5000 units/ml inj SUBQ SCH (09:20)
--- NOTE | 2018-02-23 11:10 | Pulmonology Progress Note ---
Assessment/Plan Problems: (1) Fracture of femoral neck, right, closed (2) Pacemaker (3) HTN (hypertension) (4) CAD (coronary artery disease) (5) Sick sinus syndrome (6) Hip fracture, right (7) Hypercholesterolemia Assessment/Plan sinus rhythm, v-paced\ confused doing better surgery done yesterday titrate cardiology meds symptomatic treatment pt/ot dc planning home, family doesn't want any skilled facility Subjective ROS Limited/Unobtainable: No Constitutional: Reports: no symptoms HEENT: Repors: no symptoms Respiratory: Reports: no symptoms Allergies: Coded Allergies: No Known Allergies (Unverified , 08/10/13) Objective Last 24 Hour Vital Signs Date Time Temp Pulse Resp B/P (MAP) Pulse Ox O2 Delivery O2 Flow Rate FiO2 02/23/18 09:17 133/80 02/23/18 09:17 83 133/80 02/23/18 08:00 97.9 83 19 133/80 (97) 100 97.9 02/23/18 04:00 85 02/23/18 04:00 99.0 72 19 130/67 (88) 99 99.0 02/23/18 00:00 97 02/23/18 00:00 99.1 94 19 126/89 (101) 100 99.1 02/22/18 21:00 Room Air 02/22/18 20:00 98.5 87 19 145/82 (103) 95 98.5 02/22/18 20:00 94 02/22/18 16:00 97.7 85 18 120/79 (93) 99 97.7 02/22/18 16:00 98 02/22/18 12:00 97.7 79 18 154/85 (108) 100 97.7 02/22/18 12:00 84 Intake and Output 02/22/18 02/23/18 19:00 07:00 Intake Total 60 ml 60 ml Balance 60 ml 60 ml Intake Oral 60 ml 60 ml # Voids 2 2 Objective General Appearance: WD/WN HEENT: normocephalic, anicteric Breasts: no masses Cardiovascular: normal peripheral pulses, regular rhythm Abdomen: soft, non tender, no organomegaly Extremities: no cyanosis Skin: no rash Laboratory Tests 02/23/18 07:45: White Blood Count 7.4, Red Blood Count 3.54L, Hemoglobin 10.1L, Hematocrit 32.5L , Mean Corpuscular Volume 92, Mean Corpuscular Hemoglobin 28.4, Mean Corpuscular Hemoglobin Concent 30.9L, Red Cell Distribution Width 16.8H, Platelet Count 210, Mean Platelet Volume 6.8, Neutrophils (%) (Auto) 72.5, Lymphocytes (%) (Auto) 18.7L, Monocytes (%) (Auto) 7.4, Eosinophils (%) (Auto) 1.1, Basophils (%) (Auto) 0.3, Sodium Level 144, Potassium Level 3.7, Chloride Level 110H, Carbon Dioxide Level 24, Anion Gap 10, Blood Urea Nitrogen 10, Creatinine 0.8, Estimat Glomerular Filtration Rate , Glucose Level 94, Calcium Level 8.5, Total Bilirubin 0.4, Aspartate Amino Transf (AST/SGOT) 31, Alanine Aminotransferase (ALT/SGPT) 16, Alkaline Phosphatase 52, Total Protein 5.7L, Albumin 2.4L, Globulin 3.3, Albumin/Globulin Ratio 0.7L Current Medications Medications (Trade) Dose Ordered Sig/Yi Route PRN Reason Start Time Stop Time Status Last Admin Dose Admin Acetaminophen (Tylenol) 650 mg Q4H PRN ORAL moderate pain/fever 02/21/18 16:15 03/18/18 16:14 Acetaminophen/ Hydrocodone Bitart ([place] 5/325) 1 tab Q4H PRN ORAL severe pain 02/21/18 16:15 02/26/18 16:14 02/22/18 02:52 Al Hydroxide/Mg Hydroxide (Mylanta II) 30 ml Q6H PRN ORAL dyspepsia 02/21/18 15:16 03/18/18 15:15 Atenolol (Tenormin) 25 mg DAILY ORAL 02/22/18 09:00 03/19/18 08:59 02/23/18 09:17 Ceftriaxone Sodium 1 gm/ Dextrose 55 ml @ 110 mls/hr Q24H IVPB 02/22/18 12:30 02/27/18 12:29 02/22/18 14:23 Dextrose (Dextrose 50%) 25 ml Q30M PRN IV Hypoglycemia 02/21/18 15:30 03/18/18 14:25 Dextrose (Dextrose 50%) 50 ml Q30M PRN IV hypoglycemia 02/21/18 15:30 03/18/18 14:29 Docusate Sodium (Colace) 100 mg THREE TIMES A DAY ORAL 02/21/18 18:00 03/20/18 17:59 02/23/18 09:16 Ferrous Sulfate (Feosol) 325 mg TIAC ORAL 02/21/18 16:30 03/23/18 16:29 02/23/18 06:06 Heparin Sodium (Porcine) (Heparin 5000 units/ml) 5,000 units EVERY 12 HOURS SUBQ 02/21/18 21:00 03/18/18 20:59 02/23/18 09:20 Losartan Potassium (Cozaar) 25 mg DAILY ORAL 02/22/18 09:00 03/19/18 08:59 02/23/18 09:17 Magnesium Hydroxide (Mom) 30 ml DAILYPRN PRN ORAL Constipation 02/21/18 15:19 03/20/18 15:18 Ondansetron HCl (Zofran) 4 mg Q6H PRN IVP Nausea & Vomiting 02/21/18 15:19 03/18/18 15:18 Polyethylene Glycol (Miralax) 17 gm HSPRN PRN ORAL Constipation 02/21/18 15:25 03/23/18 15:18 Potassium Chloride (K-Dur) 20 meq DAILY ORAL 02/22/18 09:00 03/22/18 20:59 02/23/18 09:17 Prochlorperazine (Compazine) 10 mg Q6H PRN IVP Nausea & Vomiting 02/21/18 15:20 03/20/18 15:19 Quetiapine Fumarate (SEROquel) 25 mg Q4H PRN ORAL agitation 02/22/18 11:20 03/24/18 11:19 Quetiapine Fumarate (SEROquel) 25 mg QHS ORAL 02/21/18 21:00 03/19/18 00:29 02/22/18 21:17 Rod Mancera MD Feb 23, 2018 11:10
[2018-02-23] MEDS: cefTRIAXone 1 GM in D5W 55 ML IVPB SCH (11:33)
--- NOTE | 2018-02-23 11:41 | General Progress Note ---
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 SNOMED: 72802184 (2) encephalopathy due to Assessment & Plan: encephalopathy due to metabolic condition -seroquel prn -provided ro/st -seroquel standing Status: stable Assessment/Plan encephalopathy due to metabolic condition -seroquel prn -provided ro/st -seroquel standing -dc haldol -dc sitter -restraints Subjective Date patient seen: Feb 23, 2018 Neurologic/Psychiatric: Reports: anxiety, depressed, emotional problems Allergies: Coded Allergies: No Known Allergies (Unverified , 08/10/13) Subjective the pt was agitated and unable to make decisions. the pts family would like to take the pt home. Objective Last 24 Hour Vital Signs Date Time Temp Pulse Resp B/P (MAP) Pulse Ox O2 Delivery O2 Flow Rate FiO2 02/23/18 09:17 133/80 02/23/18 09:17 83 133/80 02/23/18 08:00 97.9 83 19 133/80 (97) 100 97.9 02/23/18 04:00 85 02/23/18 04:00 99.0 72 19 130/67 (88) 99 99.0 02/23/18 00:00 97 02/23/18 00:00 99.1 94 19 126/89 (101) 100 99.1 02/22/18 21:00 Room Air 02/22/18 20:00 98.5 87 19 145/82 (103) 95 98.5 02/22/18 20:00 94 02/22/18 16:00 97.7 85 18 120/79 (93) 99 97.7 02/22/18 16:00 98 02/22/18 12:00 97.7 79 18 154/85 (108) 100 97.7 02/22/18 12:00 84 Intake and Output 02/22/18 02/23/18 19:00 07:00 Intake Total 60 ml 60 ml Balance 60 ml 60 ml Intake Oral 60 ml 60 ml # Voids 2 2 Laboratory Tests 02/23/18 07:45: White Blood Count 7.4, Red Blood Count 3.54L, Hemoglobin 10.1L, Hematocrit 32.5L , Mean Corpuscular Volume 92, Mean Corpuscular Hemoglobin 28.4, Mean Corpuscular Hemoglobin Concent 30.9L, Red Cell Distribution Width 16.8H, Platelet Count 210, Mean Platelet Volume 6.8, Neutrophils (%) (Auto) 72.5, Lymphocytes (%) (Auto) 18.7L, Monocytes (%) (Auto) 7.4, Eosinophils (%) (Auto) 1.1, Basophils (%) (Auto) 0.3, Sodium Level 144, Potassium Level 3.7, Chloride Level 110H, Carbon Dioxide Level 24, Anion Gap 10, Blood Urea Nitrogen 10, Creatinine 0.8, Estimat Glomerular Filtration Rate , Glucose Level 94, Calcium Level 8.5, Total Bilirubin 0.4, Aspartate Amino Transf (AST/SGOT) 31, Alanine Aminotransferase (ALT/SGPT) 16, Alkaline Phosphatase 52, Total Protein 5.7L, Albumin 2.4L, Globulin 3.3, Albumin/Globulin Ratio 0.7L Height (Feet): 5 Height (Inches): 6.00 Weight (Pounds): 120 General Appearance: no apparent distress, alert, confused Neurologic: alert, disoriented, depressed affect Lena Bob MD Feb 23, 2018 11:41
[2018-02-23 12:00] VITALS: BP 135/72
--- NOTE | 2018-02-23 12:19 | Infectious Diseases Prog Note ---
Assessment/Plan Assessment/Plan ASSESSMENT: The patient is an 82-year-old female with: Mild leukocytosis , SP Probable urinary tract infection. Urine culture, E. coli. (R amp, bactrim otherwise S) Probable pneumonia. Probable sepsis (history of several falls and altered level of consciousness), this may be due to an infectious process.- SP Neg: HIV< Hep panel Right hip fracture status post ORIF. Diabetes. Hypertension. Sick sinus syndrome. History of non-ST elevation. History of coronary artery bypass surgery. History of pacemaker in 2017. History of pacemaker implantation. PLAN: - cont on Rocephin d # 4/-7 - Monitor CBC. BMP - Monitor CXR. - Monitor cultures, urine and blood. -f/u CXR am Subjective Allergies: Coded Allergies: No Known Allergies (Unverified , 08/10/13) Subjective afebrile leukocytosis resolved Bcx NTD Objective Vital Signs Last 24 Hour Vital Signs Date Time Temp Pulse Resp B/P (MAP) Pulse Ox O2 Delivery O2 Flow Rate FiO2 02/23/18 09:17 133/80 02/23/18 09:17 83 133/80 02/23/18 08:00 97.9 83 19 133/80 (97) 100 97.9 02/23/18 04:00 85 02/23/18 04:00 99.0 72 19 130/67 (88) 99 99.0 02/23/18 00:00 97 02/23/18 00:00 99.1 94 19 126/89 (101) 100 99.1 02/22/18 21:00 Room Air 02/22/18 20:00 98.5 87 19 145/82 (103) 95 98.5 02/22/18 20:00 94 02/22/18 16:00 97.7 85 18 120/79 (93) 99 97.7 02/22/18 16:00 98 Height (Feet): 5 Height (Inches): 6.00 Weight (Pounds): 120 Objective General Appearance: WD/WN HEENT: normocephalic, anicteric Breasts: no masses Cardiovascular: normal peripheral pulses, regular rhythm Abdomen: soft, non tender, no organomegaly Extremities: no cyanosis Skin: no rash Laboratory Tests Test 02/23/18 07:45 White Blood Count 7.4 K/UL (4.8-10.8) Red Blood Count 3.54 M/UL (4.20-5.40) L Hemoglobin 10.1 G/DL (12.0-16.0) L Hematocrit 32.5 % (37.0-47.0) L Mean Corpuscular Volume 92 FL (80-99) Mean Corpuscular Hemoglobin 28.4 PG (27.0-31.0) Mean Corpuscular Hemoglobin Concent 30.9 G/DL (32.0-36.0) L Red Cell Distribution Width 16.8 % (11.6-14.8) H Platelet Count 210 K/UL (150-450) Mean Platelet Volume 6.8 FL (6.5-10.1) Neutrophils (%) (Auto) 72.5 % (45.0-75.0) Lymphocytes (%) (Auto) 18.7 % (20.0-45.0) L Monocytes (%) (Auto) 7.4 % (1.0-10.0) Eosinophils (%) (Auto) 1.1 % (0.0-3.0) Basophils (%) (Auto) 0.3 % (0.0-2.0) Sodium Level 144 MMOL/L (136-145) Potassium Level 3.7 MMOL/L (3.5-5.1) Chloride Level 110 MMOL/L (98-107) H Carbon Dioxide Level 24 MMOL/L (21-32) Anion Gap 10 mmol/L (5-15) Blood Urea Nitrogen 10 mg/dL (7-18) Creatinine 0.8 MG/DL (0.55-1.30) Estimat Glomerular Filtration Rate mL/min (>60) Glucose Level 94 MG/DL (74-106) Calcium Level 8.5 MG/DL (8.5-10.1) Total Bilirubin 0.4 MG/DL (0.2-1.0) Aspartate Amino Transf (AST/SGOT) 31 U/L (15-37) Alanine Aminotransferase (ALT/SGPT) 16 U/L (12-78) Alkaline Phosphatase 52 U/L (46-116) Total Protein 5.7 G/DL (6.4-8.2) L Albumin 2.4 G/DL (3.4-5.0) L Globulin 3.3 g/dL Albumin/Globulin Ratio 0.7 (1.0-2.7) L Current Medications Medications (Trade) Dose Ordered Sig/Yi Route PRN Reason Start Time Stop Time Status Last Admin Dose Admin Acetaminophen (Tylenol) 650 mg Q4H PRN ORAL moderate pain/fever 02/21/18 16:15 03/18/18 16:14 Acetaminophen/ Hydrocodone Bitart ([place] 5/325) 1 tab Q4H PRN ORAL severe pain 02/21/18 16:15 02/26/18 16:14 02/22/18 02:52 Al Hydroxide/Mg Hydroxide (Mylanta II) 30 ml Q6H PRN ORAL dyspepsia 02/21/18 15:16 03/18/18 15:15 Atenolol (Tenormin) 25 mg DAILY ORAL 02/22/18 09:00 03/19/18 08:59 02/23/18 09:17 Ceftriaxone Sodium 1 gm/ Dextrose 55 ml @ 110 mls/hr Q24H IVPB 02/22/18 12:30 02/27/18 12:29 02/23/18 11:33 Dextrose (Dextrose 50%) 25 ml Q30M PRN IV Hypoglycemia 02/21/18 15:30 03/18/18 14:25 Dextrose (Dextrose 50%) 50 ml Q30M PRN IV hypoglycemia 02/21/18 15:30 03/18/18 14:29 Docusate Sodium (Colace) 100 mg THREE TIMES A DAY ORAL 02/21/18 18:00 03/20/18 17:59 02/23/18 11:58 Ferrous Sulfate (Feosol) 325 mg TIAC ORAL 02/21/18 16:30 03/23/18 16:29 02/23/18 11:33 Heparin Sodium (Porcine) (Heparin 5000 units/ml) 5,000 units EVERY 12 HOURS SUBQ 02/21/18 21:00 03/18/18 20:59 02/23/18 09:20 Losartan Potassium (Cozaar) 25 mg DAILY ORAL 02/22/18 09:00 03/19/18 08:59 02/23/18 09:17 Magnesium Hydroxide (Mom) 30 ml DAILYPRN PRN ORAL Constipation 02/21/18 15:19 03/20/18 15:18 Ondansetron HCl (Zofran) 4 mg Q6H PRN IVP Nausea & Vomiting 02/21/18 15:19 03/18/18 15:18 Polyethylene Glycol (Miralax) 17 gm HSPRN PRN ORAL Constipation 02/21/18 15:25 03/23/18 15:18 Potassium Chloride (K-Dur) 20 meq DAILY ORAL 02/22/18 09:00 03/22/18 20:59 02/23/18 09:17 Prochlorperazine (Compazine) 10 mg Q6H PRN IVP Nausea & Vomiting 02/21/18 15:20 03/20/18 15:19 Quetiapine Fumarate (SEROquel) 25 mg Q4H PRN ORAL agitation 02/22/18 11:20 03/24/18 11:19 Quetiapine Fumarate (SEROquel) 25 mg QHS ORAL 02/21/18 21:00 03/19/18 00:29 02/22/18 21:17 Roseann Bardales M.D. Feb 23, 2018 12:19
--- NOTE | 2018-02-23 13:26 | Diagnostic Imaging Report ---
Indication: Dyspnea Comparison: 02/17/2018 A single view chest radiograph was obtained. Findings: Cardiomegaly is present and relatively stable. There is a hazy opacity at the right lung bases. There is a possible effusion accounting for this. Central vessels appear prominent at the hilum. There is no evidence of interstitial edema or pneumonia. Bones are unremarkable. Pacemaker also present on the left. IMPRESSION: No significant change from the previous examination. Possible small right pleural effusion Hilar vascular prominence without overt CHF. Bilateral pacemakers
--- NOTE | 2018-02-23 14:35 | Cardiology Progress Note ---
Assessment/Plan Status: stable Assessment/Plan Assessment: 1. Diabetes, type 2. 2. Hypertension. 3. Sick sinus syndrome. 4. Hypercholesterolemia. 5. Non ST elevated myocardial infarction as above. 6. Coronary artery bypass graft in 2017. 7. Pacemaker generator change in 2016. 8. History of elbow debridement. 9. Pacemaker implantation in 2013. 10. Hip fracture s/p sugery 02/18 11. Aortic stenosis 12. Mitral regurgitation Plan: Pain control Incentive spirometry Aspirin Crestor TTE: LVEF 35% with and MR and elevated filling pressures -change atenolol to coreg 3.125 BID and titrate to max tolerated -Losartan -Add aldactone -CV stable, no indication for cath/stress test at this time Subjective Cardiovascular: Reports: no symptoms Respiratory: Reports: no symptoms Gastrointestinal/Abdominal: Reports: no symptoms Genitourinary: Reports: no symptoms Subjective no acute events, patient altered, vitals stable, mild pain Objective Last 24 Hour Vital Signs Date Time Temp Pulse Resp B/P (MAP) Pulse Ox O2 Delivery O2 Flow Rate FiO2 02/23/18 12:00 97.7 78 20 135/72 (93) 100 97.7 02/23/18 12:00 68 02/23/18 09:17 133/80 02/23/18 09:17 83 133/80 02/23/18 09:00 Room Air 02/23/18 08:00 77 02/23/18 08:00 97.9 83 19 133/80 (97) 100 97.9 02/23/18 04:00 85 02/23/18 04:00 99.0 72 19 130/67 (88) 99 99.0 02/23/18 00:00 97 02/23/18 00:00 99.1 94 19 126/89 (101) 100 99.1 02/22/18 21:00 Room Air 02/22/18 20:00 98.5 87 19 145/82 (103) 95 98.5 02/22/18 20:00 94 02/22/18 16:00 97.7 85 18 120/79 (93) 99 97.7 02/22/18 16:00 98 General Appearance: no apparent distress, agitated, combative EENT: PERRL/EOMI, normal ENT inspection, TMs normal Neck: non-tender, normal alignment, supple, normal inspection Rhythm: NSR Cardiovascular: normal peripheral pulses, normal rate, regular rhythm, diastolic murmur, systolic murmur Respiratory/Chest: chest wall non-tender, lungs clear, normal breath sounds, no respiratory distress Abdomen: normal bowel sounds, non tender, soft, no organomegaly Extremities: normal range of motion, non-tender, normal inspection Neurologic: childrens club attendant II-XII grossly normal, no motor/sensory deficits, disoriented, unresponsiveness Intake and Output 02/22/18 02/23/18 19:00 07:00 Intake Total 60 ml 60 ml Balance 60 ml 60 ml Intake Oral 60 ml 60 ml # Voids 2 2 Laboratory Tests Test 02/23/18 07:45 White Blood Count 7.4 K/UL (4.8-10.8) Red Blood Count 3.54 M/UL (4.20-5.40) L Hemoglobin 10.1 G/DL (12.0-16.0) L Hematocrit 32.5 % (37.0-47.0) L Mean Corpuscular Volume 92 FL (80-99) Mean Corpuscular Hemoglobin 28.4 PG (27.0-31.0) Mean Corpuscular Hemoglobin Concent 30.9 G/DL (32.0-36.0) L Red Cell Distribution Width 16.8 % (11.6-14.8) H Platelet Count 210 K/UL (150-450) Mean Platelet Volume 6.8 FL (6.5-10.1) Neutrophils (%) (Auto) 72.5 % (45.0-75.0) Lymphocytes (%) (Auto) 18.7 % (20.0-45.0) L Monocytes (%) (Auto) 7.4 % (1.0-10.0) Eosinophils (%) (Auto) 1.1 % (0.0-3.0) Basophils (%) (Auto) 0.3 % (0.0-2.0) Sodium Level 144 MMOL/L (136-145) Potassium Level 3.7 MMOL/L (3.5-5.1) Chloride Level 110 MMOL/L (98-107) H Carbon Dioxide Level 24 MMOL/L (21-32) Anion Gap 10 mmol/L (5-15) Blood Urea Nitrogen 10 mg/dL (7-18) Creatinine 0.8 MG/DL (0.55-1.30) Estimat Glomerular Filtration Rate mL/min (>60) Glucose Level 94 MG/DL (74-106) Calcium Level 8.5 MG/DL (8.5-10.1) Total Bilirubin 0.4 MG/DL (0.2-1.0) Aspartate Amino Transf (AST/SGOT) 31 U/L (15-37) Alanine Aminotransferase (ALT/SGPT) 16 U/L (12-78) Alkaline Phosphatase 52 U/L (46-116) Total Protein 5.7 G/DL (6.4-8.2) L Albumin 2.4 G/DL (3.4-5.0) L Globulin 3.3 g/dL Albumin/Globulin Ratio 0.7 (1.0-2.7) L Johnnie Herrera MD Feb 23, 2018 14:35
[2018-02-23 16:00] VITALS: BP 149/73
[2018-02-24] MEDS ORDERED: Spironolactone 25mg tab ORAL SCH (09:00)
--- NOTE | 2018-02-26 10:28 | Discharge Summary ---
Discharge Summary Discharge Summary _ DATE OF ADMISSION: 02/16/2018 DATE OF DISCHARGE: 02/23/2018 REASON FOR ADMISSION: 82 years old female with past medical history of diabetes mellitus, hypertension , asthma, dementia, pacemaker, was brought for evaluation due to generalized weakness and right hip pain. Patient reported multiply falls over the past 3 weeks. Patient reported inability to walk . She stated, that she kept falling at home. Upon evaluation vital signs were stable. No leukocytosis, evidence of anemia with hemoglobin 9.5 hematocrit 30.9 Urinalysis with evidence of UTI. Stable electrolytes and renal parameters. X-ray right hip revealed comminuted R hip fracture. CT L-spine revealed no acute bony trauma , bilateral spondylolysis at L4 and spondylolisthesis L4 on L5 ; less extensive other multilevel degenerative changes. Possible left renal mass, increased from prior CT scan on 08/27. CT of the pelvis revealed comminuted fracture of the subcapital right femoral neck. Chest x-ray revealed suspicion of right perihilar infiltrate. Patient admitted with diagnoses status post fall , acute right hip fracture, urinary tract infection, probable pneumonia, probable sepsis (with history of several falls and altered level of consciousness, possibly due to infectious process), coronary artery disease with history of CABG, sick sinus syndrome , status post pacemaker, hypertension, diabetes mellitus, asthma ,dementia , anemia. CONSULTANTS: sales agent protective service Dr. Herrera pulmonary Dr. Mancera ID specialist Dr. Rodrigez surgery Dr. Lopez psychiatrist pain specialist Dr. Lynn HOSPITAL COURSE: Patient admitted to telemetry floor. Orthopedic surgery consult was requested. Patient subsequently undergone right hip hemiarthroplasty on February 18. Patient was working with physical and occupational therapists. Fall precautions maintained. Hip surgery precautions maintained. Pain management was addressed as per pain specialist recommendations. Pain was controlled. Bowel regimen instituted. DVT and GI prophylaxis provided. Patient started initially on empiric antibiotic. Infectious disease specialist followed. Patient noted to have leukocytosis . Chest x-ray with possible pneumonia . Urine culture revealed Escherichia coli. Blood culture were negative. Antibiotic provided as per ID specialist recommendations. According to ID specialist , patient probably had sepsis due to history of multiple falls at home and altered level of consciousness, which could be possibly due to infectious process. Leukocytosis resolved , no fevers. Hepatitis panel and HIV test were negative. Condenser Setter closely followed. Echocardiogram revealed ejection fraction of 30-35%, grade 2 diastolic dysfunction, moderate mitral regurgitation, moderate aortic stenosis, and evidence of severe pulmonary hypertension with right ventricular systolic pressure of 82. Condenser Setter optimized anti-failure medication regimen. Atenolol was changed to Coreg and to be titrated to maximum dose as tolerated as outpatient . Aldactone was added. ARB was continued. Blood rpessure was stable with current regimen. Cardiovascular status was stable, no evidence of decompensation at this time. Per sales agent protective service, no indication for cardiac catheterization or stress test at this time. Patient was V pacing on telemetry. Supplemental oxygen provided as needed to keep pulse oximetry above 92%. Pulmonary toilet provided as needed. No evidence of asthma exacerbation. Blood sugar was stable, [id number]. Hemoglobin and hematocrit were closely monitored with goal to keep hemoglobin above 7. CEA was negative. Patient started on iron supplement. Prior to discharge hemoglobin 10.1 hematocrit 22.5. Psychiatrist seen and evaluated patient, and diagnosed patient with encephalopathy due to metabolic condition and psychosis. Patient started on Seroquel. Reality orientation and supportive therapy provided. Family declined SNF placement. Patient was discharged home with home health services to follow . FINAL DIAGNOSES: Status post multiply falls Right hip displaced femoral neck fracture Status post right hip hemiarthroplasty Encephalopathy due to metabolic condition Probably sepsis UTI Escherichia coli Probably pneumonia Coronary artery disease with history of CABG Sick sinus syndrome , status post permanent pacemaker implantation Hypertension Diabetes mellitus Dementia Anemia Cardiomyopathy( per Echo) Aortic stenosis Mitral regurgitation Severe pulmonary hypertension DISCHARGE MEDICATIONS: See Medication Reconciliation list. DISCHARGE INSTRUCTIONS: Patient was discharged home with home health services. Follow up with primary care provider in one week. I have been assigned to dictate discharge summary for this account. I was not involved in the patient's management. Stormy Morel NP Feb 26, 2018 10:28
== END 2018-02-23 17:05 | disposition home health service (06) | DRG 469 ==
LOC: EDBD 08:55 → EMR 09:57 → 4E 13:14 → EDBEDREQ 13:53 → 3E 02-18 19:55 → 2E 02-21 11:22
PROC: 0SRR0JZ Replacement of Right Hip Joint, Femoral Surface with Synthetic Substitute, Open Approach (ICD-10-PCS; principal; 2018-02-18 15:30)
DX: S72.011A Unspecified intracapsular fracture of right femur, initial encounter for closed fracture (principal); G93.41 Metabolic encephalopathy; I21.4 Non-ST elevation (NSTEMI) myocardial infarction; A41.9 Sepsis, unspecified organism; J18.9 Pneumonia, unspecified organism; I50.20 Unspecified systolic (congestive) heart failure; G93.40 Encephalopathy, unspecified; N39.0 Urinary tract infection, site not specified; W19.XXXA Unspecified fall, initial encounter; Z91.81 History of falling; Y92.009 Unspecified place in unspecified non-institutional (private) residence as the place of occurrence of the external cause; E11.9 Type 2 diabetes mellitus without complications; I11.0 Hypertensive heart disease with heart failure; F03.90 Unspecified dementia, unspecified severity, without behavioral disturbance, psychotic disturbance, mood disturbance, and anxiety; E78.00 Pure hypercholesterolemia, unspecified; I25.10 Atherosclerotic heart disease of native coronary artery without angina pectoris; Z95.1 Presence of aortocoronary bypass graft; Z95.0 Presence of cardiac pacemaker; B96.20 Unspecified Escherichia coli [E. coli] as the cause of diseases classified elsewhere; F29 Unspecified psychosis not due to a substance or known physiological condition; J45.909 Unspecified asthma, uncomplicated
CPT/HCPCS: 36415; 71045; 72131; 72170; 72192; 80048; 80053; 81003; 82378; 82607; 82746; 82962; 83036; 83540; 83550; 83615; 83735; 84100; 84443; 85007; 85025; 85044; 85060; 85610; 85651; 85730; 86703; 86705; 86709; 86803; 87040; 87086; 87181; 87340; 93005; 93306; 94003; 94150; 96361; 96374; 96375; 99285; J2250; J8499

== ENCOUNTER 2018-02-28 10:50 | Inpatient (IN) | payer MEDICARE, OTHER ==
[2018-02-28] VITALS (8 sets, daily range): BP systolic 110–152; BP diastolic 54–76
[~2018-02-28] VITALS: Ht 160 cm; Wt 61.8 kg
[~2018-02-28 10:50] MED LIST changes: +CATAPRES0.1 MG ORAL; +CLOPIDOGREL75 MG ORAL; +CRESTOR10 M2 ORAL; +FUROSEMIDE40 MG ORAL; +JANUMET XR 50-1 EAC1 ORAL; +KLONOPIN0.5 MG ORAL; +LOSARTAN POTASS25 MG ORAL; +METOPROLOL SUCC50 MG ORAL; +POTASSIUM CHLO10 ME3 ORAL; +TRAZODONE HCL150 MG ORAL; +VITAMIN D400 INTLU ORAL
[2018-02-28] MEDS ORDERED: Morphine Sulfate 2mg/ml Inj IVP ONE (11:45)
[2018-02-28 12:06] LABS: BASOPHILS % (AUTO) 0.3 % (0.0-2.0); EOSINOPHILS % (AUTO) 1.2 % (0.0-3.0); HEMATOCRIT 29.4 % (37.0-47.0); HEMOGLOBIN 9.1 G/DL (12.0-16.0); LYMPHOCYTES % (AUTO) 18.4 % (20.0-45.0); MEAN CORPUSCULAR VOLUME 92 FL (80-99); MONOCYTES % (AUTO) 9.4 % (1.0-10.0); NEUTROPHILS % (AUTO) 70.7 % (45.0-75.0); PLATELET COUNT 239 K/UL (150-450); RED CELL DISTRIBUTION WIDTH 17.6 % (11.6-14.8); WHITE BLOOD COUNT 6.1 K/UL (4.8-10.8)
[2018-02-28 12:13] LABS: INR 1.1 (0.9-1.1)
--- NOTE | 2018-02-28 12:13 | Diagnostic Imaging Report ---
INDICATION: Pain COMPARISON: CT dated [birth year] FINDINGS: Patient is status post right total hip arthroplasty with dislocation of the arthroplasty. Fracture deformity of the left inferior and superior pubic rami seen. Limited visualization of the sacrum due to bowel. Decreased bone mineral density. IMPRESSION: 1. Status post right total hip arthroplasty with dislocation of the arthroplasty. Correlation can be obtained with CT for exact anatomic location. 2. Fracture deformity of left superior pubic rami. [employer] 02/28/18 12:05 Call Doctor Regarding Other, called Kylee Buck 02/28/18 12:17 Call Doctor Regarding Other, called Timothy GODINEZ on 02/28 12: 17 (-07:00)
[2018-02-28 12:14] LABS: ANION GAP 6 mmol/L (5-15); BLOOD UREA NITROGEN 14 mg/dL (7-18); CALCIUM 8.7 MG/DL (8.5-10.1); CARBON DIOXIDE 25 MMOL/L (21-32); CHLORIDE 109 MMOL/L (98-107); CREATININE 0.9 MG/DL (0.55-1.30); POTASSIUM 3.8 MMOL/L (3.5-5.1); SODIUM 140 MMOL/L (136-145)
[2018-02-28 12:18] LABS: ALANINE AMINOTRANSFERASE 22 U/L (12-78); ALBUMIN 2.5 G/DL (3.4-5.0); ALBUMIN/GLOBULIN RATIO 0.8 (1.0-2.7); ALKALINE PHOSPHATASE 64 U/L (46-116); ASPARTATE AMINO TRANSFERASE 23 U/L (15-37); BILIRUBIN,TOTAL 0.3 MG/DL (0.2-1.0)
[2018-02-28] MEDS ORDERED: Propofol 200mg/20ml IV ONE (12:30)
--- NOTE | 2018-02-28 12:32 | Emergency Room Report ---
History of Present Illness General Chief Complaint: Pain Source: Medical Record Present Illness HPI Patient is an 82-year-old female presented after fall from the bed. Patient had a recent right hip fracture and was noted to have the surgical repair. The patient's approximately 10 days postoperative. The patient had been unable to ambulate since falling. History is markedly limited by patient's mental status and dementia. Allergies: Coded Allergies: No Known Allergies (Unverified , 08/10/13) Patient History Past Medical History: see triage record Reviewed Nursing Documentation: PMH: Agreed; PSxH: Agreed Nursing Documentation-PMH Past Medical History: No History, Except For Hx Cardiac Problems: Yes Hx Hypertension: Yes Hx Pacemaker: Yes - left chest pacemaker Hx Asthma: Yes Hx Diabetes: Yes Hx Cancer: No Hx Gastrointestinal Problems: No Hx Neurological Problems: Yes Hx Dementia: Yes Review of Systems All Other Systems: limited - by mental status Physical Exam Vital Signs Date Time Temp Pulse Resp B/P (MAP) Pulse Ox O2 Delivery O2 Flow Rate FiO2 02/28/18 10:52 97.8 70 13 111/54 100 Room Air 97.9 Sp02 EP Interpretation: reviewed, normal General Appearance: normal inspection, alert, Chronically Ill Head: atraumatic ENT: normal ENT inspection, hearing grossly normal, normal voice Neck: normal inspection, supple, no bony tend, limited range of motion Respiratory: normal inspection, lungs clear, normal breath sounds, no respiratory distress, no retraction, no wheezing Cardiovascular #1: regular rate, rhythm, edema - right lower extremity Gastrointestinal: normal inspection, normal bowel sounds, non tender, soft, no guarding, no hernia Genitourinary: no CVA tenderness Musculoskeletal: normal inspection, back normal, other - deformity and shortening of left hip Neurologic: normal inspection, alert, responsive, speech normal Psychiatric: normal inspection, mood/affect normal Skin: normal inspection, normal color, no rash Procedures Procedural Sedation Consent: Emergent Time out called at: 13:13 Pre-Sedation Assessment: Elective Airway Assessment (Malampati): I Heart: abnormal - chf Lungs: normal Abdomen: normal Extremities: abnormal - dislocation Plan for Moderate Sedation: Propofol ASA Score: III Procedure Narrative The patient was given IV propofol in 10 mg aliquots until the patient was adequately sedated. The reduction was attempted without successful reduction. Start Time: 13:15 End Time: 13:25 Communication: No Apparent Limitation Mental Status: Awake Respiration: Unlabored Skin Condition: WNL Abdomen: WNL Nausea: NO Vomiting: NO Additional Comments: unable to reduce hip Post procedure xray without change in alignement. Medical Decision Making Diagnostic Impression: Primary Impression: Hip dislocation, right Additional Impression: Closed fracture of symphysis pubis ER Course Patient presented for hip pain. Differential diagnosis included was not limited to fracture, dislocation, sprain, contusion and among others. X-ray imaging of the right hip the interpreted by me showed posterior dislocation of prosthesis. The pelvic fracture was noted. The patient's hip could not be successfully reduced by me in emergency department. Dr. Lopez was contacted for orthopedic consult. Dr. Carlos Alberto Berkowitz was contacted for inpatient management Labs Test 02/28/18 11:50 White Blood Count 6.1 K/UL (4.8-10.8) Red Blood Count 3.20 M/UL (4.20-5.40) Hemoglobin 9.1 G/DL (12.0-16.0) Hematocrit 29.4 % (37.0-47.0) Mean Corpuscular Volume 92 FL (80-99) Mean Corpuscular Hemoglobin 28.6 PG (27.0-31.0) Mean Corpuscular Hemoglobin Concent 31.2 G/DL (32.0-36.0) Red Cell Distribution Width 17.6 % (11.6-14.8) Platelet Count 239 K/UL (150-450) Mean Platelet Volume 7.9 FL (6.5-10.1) Neutrophils (%) (Auto) 70.7 % (45.0-75.0) Lymphocytes (%) (Auto) 18.4 % (20.0-45.0) Monocytes (%) (Auto) 9.4 % (1.0-10.0) Eosinophils (%) (Auto) 1.2 % (0.0-3.0) Basophils (%) (Auto) 0.3 % (0.0-2.0) Prothrombin Time 11.4 SEC (9.30-11.50) Prothromb Time International Ratio 1.1 (0.9-1.1) Activated Partial Thromboplast Time 22 SEC (23-33) Sodium Level 140 MMOL/L (136-145) Potassium Level 3.8 MMOL/L (3.5-5.1) Chloride Level 109 MMOL/L (98-107) Carbon Dioxide Level 25 MMOL/L (21-32) Anion Gap 6 mmol/L (5-15) Blood Urea Nitrogen 14 mg/dL (7-18) Creatinine 0.9 MG/DL (0.55-1.30) Estimat Glomerular Filtration Rate mL/min (>60) Glucose Level 134 MG/DL (74-106) Calcium Level 8.7 MG/DL (8.5-10.1) Total Bilirubin 0.3 MG/DL (0.2-1.0) Aspartate Amino Transf (AST/SGOT) 23 U/L (15-37) Alanine Aminotransferase (ALT/SGPT) 22 U/L (12-78) Alkaline Phosphatase 64 U/L (46-116) Total Protein 5.7 G/DL (6.4-8.2) Albumin 2.5 G/DL (3.4-5.0) Globulin 3.2 g/dL Albumin/Globulin Ratio 0.8 (1.0-2.7) Last Vital Signs Date Time Temp Pulse Resp B/P (MAP) Pulse Ox O2 Delivery O2 Flow Rate FiO2 02/28/18 11:55 97.9 02/28/18 11:09 61 16 111/54 100 Room Air Status: improved Referrals: NOT CHOSEN IPA/,REFERRING (PCP) Randall Aguirre MD Feb 28, 2018 12:32
[2018-02-28] MEDS ORDERED: ATENOLOL50 MG ORAL (14:22)
[2018-02-28] MEDS ORDERED: TOFRANIL50 MG ORAL (14:22)
[2018-02-28] MEDS ORDERED: clonazePAM 0.5mg tab ORAL PRN (17:45)
[2018-02-28] MEDS ORDERED: Norco 5mg/325mg tab ORAL PRN (17:45)
[2018-02-28] MEDS: TraZODone 50mg tab ORAL SCH (20:26)
[2018-02-28] MEDS: Heparin 5000 units/ml inj SUBQ SCH (20:26)
[2018-03-01] VITALS (12 sets, daily range): BP systolic 106–165; BP diastolic 58–94
[2018-03-01 08:19] LABS: BASOPHILS % (AUTO) 0.6 % (0.0-2.0); EOSINOPHILS % (AUTO) 1.7 % (0.0-3.0); HEMOGLOBIN 8.9 G/DL (12.0-16.0); LYMPHOCYTES % (AUTO) 22.1 % (20.0-45.0); MEAN CORPUSCULAR VOLUME 91 FL (80-99); MONOCYTES % (AUTO) 7.6 % (1.0-10.0); PLATELET COUNT 241 K/UL (150-450); RED BLOOD COUNT 3.07 M/UL (4.20-5.40); RED CELL DISTRIBUTION WIDTH 17.3 % (11.6-14.8); WHITE BLOOD COUNT 5.3 K/UL (4.8-10.8)
[2018-03-01 08:29] LABS: INR 1.1 (0.9-1.1)
[2018-03-01] MEDS: Imipramine 10mg tab ORAL SCH ×2 (08:29→09:00)
[2018-03-01] MEDS: Aspirin EC 81mg tab ORAL SCH ×2 (08:30→09:00)
[2018-03-01] MEDS: Furosemide 40mg tab ORAL SCH ×2 (08:30→09:00)
[2018-03-01] MEDS: Losartan 25mg tab ORAL SCH ×2 (08:30→09:00)
[2018-03-01] MEDS: Heparin 5000 units/ml inj SUBQ SCH ×3 (08:32→21:00)
[2018-03-01 08:48] LABS: ALANINE AMINOTRANSFERASE 19 U/L (12-78); ALBUMIN 2.2 G/DL (3.4-5.0); ALBUMIN/GLOBULIN RATIO 0.8 (1.0-2.7); ALKALINE PHOSPHATASE 64 U/L (46-116); ANION GAP 6 mmol/L (5-15); ASPARTATE AMINO TRANSFERASE 22 U/L (15-37); BILIRUBIN,TOTAL 0.3 MG/DL (0.2-1.0); BLOOD UREA NITROGEN 14 mg/dL (7-18); CALCIUM 8.3 MG/DL (8.5-10.1); CARBON DIOXIDE 24 MMOL/L (21-32); CHLORIDE 110 MMOL/L (98-107); CREATININE 0.8 MG/DL (0.55-1.30); POTASSIUM 3.8 MMOL/L (3.5-5.1); SODIUM 140 MMOL/L (136-145)
--- NOTE | 2018-03-01 10:50 | Diagnostic Imaging Report ---
Indication: pain Pelvic trauma and pain Findings: Single AP view of the pelvis was performed. Dislocated right hip demonstrated with superolateral dislocation of the right hip in a patient was had a bipolar hemiarthroplasty. There are fractures present involving the superior pubic ramus bilaterally as well as the left inferior pubic ramus. The sacrum is a obscured and not evaluated well on this examination. These fractures were described on a CT report from February 16, 2018 at the time of the right hip fracture. IMPRESSION: Dislocation of the right bipolar hemiarthroplasty
--- NOTE | 2018-03-01 10:52 | Consultation ---
History of Present Illness General Chief Complaint: Pain Present Illness HPI 82-year-old female presented with mmp who was admitted for hip displacement. The pt was agitated and yelling. the pt is Congolese speaking and is disorganized. the pt is unable to provide hx. The pt is disoriented. She get Trazodone outside of the hospital Allergies: Coded Allergies: No Known Allergies (Unverified , 08/10/13) Medication History Scheduled Amoxicillin/Potassium Clav 875-125* (Augmentin 875-125 Tablet*), 1 TAB ORAL TWICE A DAY Aspirin (Aspirin EC), 81 MG ORAL DAILY, (Reported) Atenolol (Tenormin), 25 MG ORAL DAILY, (Reported) Atenolol* (Tenormin*), 50 MG ORAL BID, (Reported) Clonazepam* (Klonopin*), 0.5 MG ORAL Q6H, (Reported) Clonidine Hcl* (Catapres*), 0.1 MG ORAL EVERY 8 HOURS, (Reported) Clopidogrel* (Clopidogrel*), 75 MG ORAL DAILY, (Reported) Dicyclomine Hcl* (Dicyclomine Hcl*), 10 MG PO QID Famotidine (Pepcid), 20 MG ORAL BEDTIME Furosemide* (Lasix*), 40 MG ORAL DAILY, (Reported) Imipramine Hcl* (Tofranil*), 25 MG ORAL DAILY, (Reported) Losartan Potassium* (Losartan Potassium*), 25 MG ORAL DAILY, (Reported) Metoprolol Succinate* (Metoprolol Succinate*), 50 MG ORAL DAILY, (Reported) No Known Medications* (NKM - No Known Medications*), 0 ., (Reported) Potassium Chloride (Potassium Chloride), 10 MEQ ORAL DAILY, (Reported) Rosuvastatin Calcium* (Crestor*), 10 MG ORAL DAILY, (Reported) Sitagliptin Phos/Metformin Hcl (Janumet Xr 50-1,000 Mg Tablet), 1 TAB ORAL DAILY , (Reported) Trazodone* (Trazodone*), 50 MG ORAL BEDTIME, (Reported) Vitamin D (Vitamin D3), 5,000 UNITS ORAL DAILY, (Reported) Scheduled PRN Hydrocodone Bit/Acetaminophen 5-325* (Keene 5-325*), 1 TAB ORAL Q6H PRN for For Pain Miscellaneous Medications Unable to Obtain Medications (Unable To Obtain Meds), (Reported) Patient History Limited by: medical condition History Provided By: Patient, Medical Record Healthcare decision maker Resuscitation status Full Code Advanced Directive on File No Past Medical/Surgical History Past Medical/Surgical History: (1) Delirium (2) Acute on chronic systolic CHF (congestive heart failure) (3) Colitis (4) Diabetes mellitus, type II (5) Closed fracture of symphysis pubis (6) Psychosis (7) DVT of left axillary vein, acute (8) Sick sinus syndrome (9) CAD (coronary artery disease) (10) HTN (hypertension) (11) Pacemaker (12) Fracture of femoral neck, right, closed (13) Hip fracture requiring operative repair (14) UTI (urinary tract infection) (15) E coli infection (16) Hip dislocation, right Review of Systems Psychiatric: Reports: anxiety, hallucinations Physical Exam General Appearance: alert, confused, severe distress, agitated Last 24 Hour Vital Signs Date Time Temp Pulse Resp B/P (MAP) Pulse Ox O2 Delivery O2 Flow Rate FiO2 03/01/18 09:00 Room Air 03/01/18 09:00 119/58 03/01/18 08:00 97.9 76 19 119/58 (78) 98 97.9 03/01/18 07:45 80 03/01/18 04:00 77 03/01/18 04:00 97.0 76 20 118/60 (79) 98 97.0 03/01/18 00:00 97.3 69 20 106/63 (77) 98 97.3 03/01/18 00:00 68 02/28/18 21:00 Room Air 02/28/18 20:00 98.1 68 20 117/59 (78) 97 98.1 02/28/18 20:00 68 02/28/18 17:55 Room Air 02/28/18 17:01 61 02/28/18 16:45 97.7 65 19 110/57 (74) 95 97.7 02/28/18 16:44 97.9 69 15 150/72 100 Room Air 97.9 02/28/18 15:56 69 15 150/72 100 Room Air 02/28/18 14:45 68 12 152/74 100 Room Air 02/28/18 13:38 97.9 77 15 110/59 100 Room Air 97.9 02/28/18 13:12 98.2 60 15 100 Room Air 98.2 69 94 64 96 62 100 72 02/28/18 13:12 Room Air 02/28/18 13:08 97.9 02/28/18 12:39 97.9 61 16 120/58 100 Room Air 97.9 02/28/18 11:55 97.9 02/28/18 11:09 97.9 61 16 111/54 100 Room Air 97.9 02/28/18 10:52 97.8 70 13 111/54 100 Room Air 97.9 Intake and Output 02/28/18 03/01/18 19:00 07:00 Intake Total 220 ml Balance 220 ml Intake Oral 220 ml # Voids 1 2 Laboratory Tests Test 02/28/18 11:50 03/01/18 07:01 White Blood Count 6.1 K/UL (4.8-10.8) 5.3 K/UL (4.8-10.8) Red Blood Count 3.20 M/UL (4.20-5.40) L 3.07 M/UL (4.20-5.40) L Hemoglobin 9.1 G/DL (12.0-16.0) L 8.9 G/DL (12.0-16.0) L Hematocrit 29.4 % (37.0-47.0) L 28.0 % (37.0-47.0) L Mean Corpuscular Volume 92 FL (80-99) 91 FL (80-99) Mean Corpuscular Hemoglobin 28.6 PG (27.0-31.0) 29.1 PG (27.0-31.0) Mean Corpuscular Hemoglobin Concent 31.2 G/DL (32.0-36.0) L 31.9 G/DL (32.0-36.0) L Red Cell Distribution Width 17.6 % (11.6-14.8) H 17.3 % (11.6-14.8) H Platelet Count 239 K/UL (150-450) 241 K/UL (150-450) Mean Platelet Volume 7.9 FL (6.5-10.1) 7.4 FL (6.5-10.1) Neutrophils (%) (Auto) 70.7 % (45.0-75.0) 68.0 % (45.0-75.0) Lymphocytes (%) (Auto) 18.4 % (20.0-45.0) L 22.1 % (20.0-45.0) Monocytes (%) (Auto) 9.4 % (1.0-10.0) 7.6 % (1.0-10.0) Eosinophils (%) (Auto) 1.2 % (0.0-3.0) 1.7 % (0.0-3.0) Basophils (%) (Auto) 0.3 % (0.0-2.0) 0.6 % (0.0-2.0) Prothrombin Time 11.4 SEC (9.30-11.50) 11.4 SEC (9.30-11.50) Prothromb Time International Ratio 1.1 (0.9-1.1) 1.1 (0.9-1.1) Activated Partial Thromboplast Time 22 SEC (23-33) L 27 SEC (23-33) Sodium Level 140 MMOL/L (136-145) 140 MMOL/L (136-145) Potassium Level 3.8 MMOL/L (3.5-5.1) 3.8 MMOL/L (3.5-5.1) Chloride Level 109 MMOL/L (98-107) H 110 MMOL/L (98-107) H Carbon Dioxide Level 25 MMOL/L (21-32) 24 MMOL/L (21-32) Anion Gap 6 mmol/L (5-15) 6 mmol/L (5-15) Blood Urea Nitrogen 14 mg/dL (7-18) 14 mg/dL (7-18) Creatinine 0.9 MG/DL (0.55-1.30) 0.8 MG/DL (0.55-1.30) Estimat Glomerular Filtration Rate mL/min (>60) mL/min (>60) Glucose Level 134 MG/DL (74-106) H 102 MG/DL (74-106) Calcium Level 8.7 MG/DL (8.5-10.1) 8.3 MG/DL (8.5-10.1) L Total Bilirubin 0.3 MG/DL (0.2-1.0) 0.3 MG/DL (0.2-1.0) Aspartate Amino Transf (AST/SGOT) 23 U/L (15-37) 22 U/L (15-37) Alanine Aminotransferase (ALT/SGPT) 22 U/L (12-78) 19 U/L (12-78) Alkaline Phosphatase 64 U/L (46-116) 64 U/L (46-116) Total Protein 5.7 G/DL (6.4-8.2) L 5.1 G/DL (6.4-8.2) L Albumin 2.5 G/DL (3.4-5.0) L 2.2 G/DL (3.4-5.0) L Globulin 3.2 g/dL 2.9 g/dL Albumin/Globulin Ratio 0.8 (1.0-2.7) L 0.8 (1.0-2.7) L Height (Feet): 5 Height (Inches): 4.00 Weight (Pounds): 120 Medications Current Medications Medications (Trade) Dose Ordered Sig/Yi Route PRN Reason Start Time Stop Time Status Last Admin Dose Admin Acetaminophen/ Hydrocodone Bitart (Keene 5/325) 1 tab Q6H PRN ORAL For Pain 02/28/18 17:45 03/07/18 17:44 03/01/18 01:35 Aspirin (Ecotrin) 81 mg DAILY ORAL 03/01/18 09:00 03/31/18 08:59 Atenolol (Tenormin) 50 mg BID ORAL 02/28/18 18:00 03/30/18 17:59 UNV Clonazepam (KlonoPIN) 0.5 mg Q6H PRN ORAL For Anxiety 02/28/18 17:45 03/07/18 17:44 Famotidine (Pepcid) 20 mg DAILY ORAL 03/01/18 09:00 03/31/18 08:59 Furosemide (Lasix) 40 mg DAILY ORAL 03/01/18 09:00 03/31/18 08:59 Heparin Sodium (Porcine) (Heparin 5000 units/ml) 5,000 units EVERY 12 HOURS SUBQ 02/28/18 21:00 03/30/18 20:59 02/28/18 20:26 Imipramine HCl (Tofranil) 25 mg DAILY ORAL 03/01/18 09:00 03/31/18 08:59 Losartan Potassium (Cozaar) 25 mg DAILY ORAL 03/01/18 09:00 03/31/18 08:59 Metoprolol Succinate (Toprol XL) 50 mg DAILY ORAL 03/01/18 09:00 03/31/18 08:59 UNV Potassium Chloride (K-Dur) 10 meq DAILY ORAL 03/01/18 09:00 03/31/18 08:59 Trazodone HCl (Desyrel) 50 mg BEDTIME ORAL 02/28/18 21:00 03/30/18 20:59 02/28/18 20:26 Assessment/Plan Status: stable Assessment/Plan Dementia with behavioral dist Encephalopathy Psychotic d/o Risperdal .5mg tid ativan prn trazodone 50mg qhs Lena Bob MD Mar 01, 2018 10:52
--- NOTE | 2018-03-01 11:00 | Consultation ---
History of Present Illness General Date patient seen: Mar 01, 2018 Chief Complaint: Pain Present Illness HPI 82-year-old female with hx of dementia, CAD, HTN, with recent fall and fracture of right hip and s/p R hip replacement presented to ER by paramedics after and an episode of fall from the bed. The patient had been unable to ambulate since falling. Pt was diagnosed to have a dislocation of her right and admitted for surgical correction. Allergies: Coded Allergies: No Known Allergies (Unverified , 08/10/13) Medication History Scheduled Amoxicillin/Potassium Clav 875-125* (Augmentin 875-125 Tablet*), 1 TAB ORAL TWICE A DAY Aspirin (Aspirin EC), 81 MG ORAL DAILY, (Reported) Atenolol (Tenormin), 25 MG ORAL DAILY, (Reported) Atenolol* (Tenormin*), 50 MG ORAL BID, (Reported) Clonazepam* (Klonopin*), 0.5 MG ORAL Q6H, (Reported) Clonidine Hcl* (Catapres*), 0.1 MG ORAL EVERY 8 HOURS, (Reported) Clopidogrel* (Clopidogrel*), 75 MG ORAL DAILY, (Reported) Dicyclomine Hcl* (Dicyclomine Hcl*), 10 MG PO QID Famotidine (Pepcid), 20 MG ORAL BEDTIME Furosemide* (Lasix*), 40 MG ORAL DAILY, (Reported) Imipramine Hcl* (Tofranil*), 25 MG ORAL DAILY, (Reported) Losartan Potassium* (Losartan Potassium*), 25 MG ORAL DAILY, (Reported) Metoprolol Succinate* (Metoprolol Succinate*), 50 MG ORAL DAILY, (Reported) No Known Medications* (NKM - No Known Medications*), 0 ., (Reported) Potassium Chloride (Potassium Chloride), 10 MEQ ORAL DAILY, (Reported) Rosuvastatin Calcium* (Crestor*), 10 MG ORAL DAILY, (Reported) Sitagliptin Phos/Metformin Hcl (Janumet Xr 50-1,000 Mg Tablet), 1 TAB ORAL DAILY , (Reported) Trazodone* (Trazodone*), 50 MG ORAL BEDTIME, (Reported) Vitamin D (Vitamin D3), 5,000 UNITS ORAL DAILY, (Reported) Scheduled PRN Hydrocodone Bit/Acetaminophen 5-325* ([place] 5-325*), 1 TAB ORAL Q6H PRN for For Pain Miscellaneous Medications Unable to Obtain Medications (Unable To Obtain Meds), (Reported) Patient History Healthcare decision maker Resuscitation status Full Code Advanced Directive on File No Past Medical/Surgical History Past Medical/Surgical History: (1) Pacemaker (2) HTN (hypertension) (3) CAD (coronary artery disease) (4) Psychosis Review of Systems All Other Systems: negative except mentioned in HPI Physical Exam General Appearance: cachetic Lines, tubes and drains: peripheral HEENT: normocephalic, atraumatic Neck: non-tender, normal alignment Respiratory/Chest: chest wall non-tender, lungs clear Cardiovascular/Chest: normal peripheral pulses, normal rate Abdomen: normal bowel sounds, non tender Genitourinary/Rectal: normal genital exam Extremities: normal range of motion Last 24 Hour Vital Signs Date Time Temp Pulse Resp B/P (MAP) Pulse Ox O2 Delivery O2 Flow Rate FiO2 03/01/18 09:00 Room Air 03/01/18 09:00 119/58 03/01/18 08:00 97.9 76 19 119/58 (78) 98 97.9 03/01/18 07:45 80 03/01/18 04:00 77 03/01/18 04:00 97.0 76 20 118/60 (79) 98 97.0 03/01/18 00:00 97.3 69 20 106/63 (77) 98 97.3 03/01/18 00:00 68 02/28/18 21:00 Room Air 02/28/18 20:00 98.1 68 20 117/59 (78) 97 98.1 02/28/18 20:00 68 02/28/18 17:55 Room Air 02/28/18 17:01 61 02/28/18 16:45 97.7 65 19 110/57 (74) 95 97.7 02/28/18 16:44 97.9 69 15 150/72 100 Room Air 97.9 02/28/18 15:56 69 15 150/72 100 Room Air 02/28/18 14:45 68 12 152/74 100 Room Air 02/28/18 13:38 97.9 77 15 110/59 100 Room Air 97.9 02/28/18 13:12 98.2 60 15 100 Room Air 98.2 69 94 64 96 62 100 72 02/28/18 13:12 Room Air 02/28/18 13:08 97.9 02/28/18 12:39 97.9 61 16 120/58 100 Room Air 97.9 02/28/18 11:55 97.9 02/28/18 11:09 97.9 61 16 111/54 100 Room Air 97.9 Intake and Output 02/28/18 03/01/18 19:00 07:00 Intake Total 220 ml Balance 220 ml Intake Oral 220 ml # Voids 1 2 Laboratory Tests Test 02/28/18 11:50 03/01/18 07:01 White Blood Count 6.1 K/UL (4.8-10.8) 5.3 K/UL (4.8-10.8) Red Blood Count 3.20 M/UL (4.20-5.40) L 3.07 M/UL (4.20-5.40) L Hemoglobin 9.1 G/DL (12.0-16.0) L 8.9 G/DL (12.0-16.0) L Hematocrit 29.4 % (37.0-47.0) L 28.0 % (37.0-47.0) L Mean Corpuscular Volume 92 FL (80-99) 91 FL (80-99) Mean Corpuscular Hemoglobin 28.6 PG (27.0-31.0) 29.1 PG (27.0-31.0) Mean Corpuscular Hemoglobin Concent 31.2 G/DL (32.0-36.0) L 31.9 G/DL (32.0-36.0) L Red Cell Distribution Width 17.6 % (11.6-14.8) H 17.3 % (11.6-14.8) H Platelet Count 239 K/UL (150-450) 241 K/UL (150-450) Mean Platelet Volume 7.9 FL (6.5-10.1) 7.4 FL (6.5-10.1) Neutrophils (%) (Auto) 70.7 % (45.0-75.0) 68.0 % (45.0-75.0) Lymphocytes (%) (Auto) 18.4 % (20.0-45.0) L 22.1 % (20.0-45.0) Monocytes (%) (Auto) 9.4 % (1.0-10.0) 7.6 % (1.0-10.0) Eosinophils (%) (Auto) 1.2 % (0.0-3.0) 1.7 % (0.0-3.0) Basophils (%) (Auto) 0.3 % (0.0-2.0) 0.6 % (0.0-2.0) Prothrombin Time 11.4 SEC (9.30-11.50) 11.4 SEC (9.30-11.50) Prothromb Time International Ratio 1.1 (0.9-1.1) 1.1 (0.9-1.1) Activated Partial Thromboplast Time 22 SEC (23-33) L 27 SEC (23-33) Sodium Level 140 MMOL/L (136-145) 140 MMOL/L (136-145) Potassium Level 3.8 MMOL/L (3.5-5.1) 3.8 MMOL/L (3.5-5.1) Chloride Level 109 MMOL/L (98-107) H 110 MMOL/L (98-107) H Carbon Dioxide Level 25 MMOL/L (21-32) 24 MMOL/L (21-32) Anion Gap 6 mmol/L (5-15) 6 mmol/L (5-15) Blood Urea Nitrogen 14 mg/dL (7-18) 14 mg/dL (7-18) Creatinine 0.9 MG/DL (0.55-1.30) 0.8 MG/DL (0.55-1.30) Estimat Glomerular Filtration Rate mL/min (>60) mL/min (>60) Glucose Level 134 MG/DL (74-106) H 102 MG/DL (74-106) Calcium Level 8.7 MG/DL (8.5-10.1) 8.3 MG/DL (8.5-10.1) L Total Bilirubin 0.3 MG/DL (0.2-1.0) 0.3 MG/DL (0.2-1.0) Aspartate Amino Transf (AST/SGOT) 23 U/L (15-37) 22 U/L (15-37) Alanine Aminotransferase (ALT/SGPT) 22 U/L (12-78) 19 U/L (12-78) Alkaline Phosphatase 64 U/L (46-116) 64 U/L (46-116) Total Protein 5.7 G/DL (6.4-8.2) L 5.1 G/DL (6.4-8.2) L Albumin 2.5 G/DL (3.4-5.0) L 2.2 G/DL (3.4-5.0) L Globulin 3.2 g/dL 2.9 g/dL Albumin/Globulin Ratio 0.8 (1.0-2.7) L 0.8 (1.0-2.7) L Height (Feet): 5 Height (Inches): 4.00 Weight (Pounds): 120 Medications Current Medications Medications (Trade) Dose Ordered Sig/Yi Route PRN Reason Start Time Stop Time Status Last Admin Dose Admin Acetaminophen/ Hydrocodone Bitart ([place] 5/325) 1 tab Q6H PRN ORAL For Pain 02/28/18 17:45 03/07/18 17:44 03/01/18 01:35 Aspirin (Ecotrin) 81 mg DAILY ORAL 03/01/18 09:00 03/31/18 08:59 Atenolol (Tenormin) 50 mg BID ORAL 02/28/18 18:00 03/30/18 17:59 UNV Clonazepam (KlonoPIN) 0.5 mg Q6H PRN ORAL For Anxiety 02/28/18 17:45 03/07/18 17:44 Famotidine (Pepcid) 20 mg DAILY ORAL 03/01/18 09:00 03/31/18 08:59 Furosemide (Lasix) 40 mg DAILY ORAL 03/01/18 09:00 03/31/18 08:59 Heparin Sodium (Porcine) (Heparin 5000 units/ml) 5,000 units EVERY 12 HOURS SUBQ 02/28/18 21:00 03/30/18 20:59 02/28/18 20:26 Imipramine HCl (Tofranil) 25 mg DAILY ORAL 03/01/18 09:00 03/31/18 08:59 Losartan Potassium (Cozaar) 25 mg DAILY ORAL 03/01/18 09:00 03/31/18 08:59 Metoprolol Succinate (Toprol XL) 50 mg DAILY ORAL 03/01/18 09:00 11/14/18 08:59 UNV Potassium Chloride (K-Dur) 10 meq DAILY ORAL 03/01/18 09:00 03/31/18 08:59 Trazodone HCl (Desyrel) 50 mg BEDTIME ORAL 02/28/18 21:00 03/30/18 20:59 02/28/18 20:26 Assessment/Plan Problem List: (1) Hip dislocation, right ICD Codes: S73.004A - Unspecified dislocation of right hip, initial encounter SNOMED: 522793868 (2) Delirium ICD Codes: R41.0 - Disorientation, unspecified SNOMED: 2186203 (3) CAD (coronary artery disease) ICD Codes: I25.10 - Atherosclerotic heart disease of [place] coronary artery without angina pectoris SNOMED: 99718347 (4) HTN (hypertension) ICD Codes: I10 - Essential (primary) hypertension SNOMED: 64870986 (5) Pacemaker ICD Codes: Z95.0 - Presence of cardiac pacemaker SNOMED: 316051151 (6) Diabetes mellitus, type II ICD Codes: E11.9 - Type 2 diabetes mellitus without complications SNOMED: 80307439 Assessment/Plan symptomatic treatment psychology f/u sliding scale iv fluids ortho consult dvt prophylaxis monitor BP Rod Mancera MD Mar 01, 2018 11:00
[2018-03-01] MEDS ORDERED: LORazepam 1mg tab ORAL PRN (11:47)
[2018-03-01] MEDS: Metoprolol Succinate XL 50mg tab ORAL SCH (11:47)
--- NOTE | 2018-03-01 18:13 | History & Physical ---
History and Physical History & Physicial Dictated for Int Med-dr Berkowitz no. [id number]. Aquilino Matthews MD Mar 01, 2018 18:13
[2018-03-01] MEDS ORDERED: Ketamine 500mg Inj ONE (19:59)
[2018-03-01] MEDS ORDERED: NS Irrig 1000ml ONE (20:00)
[2018-03-01] MEDS ORDERED: LR 1000ml ONE (20:00)
[2018-03-01] MEDS ORDERED: Sterile Water Irrig 1000ml IRRIG ONE (20:00)
--- NOTE | 2018-03-01 20:01 | Pre-Procedure Note/Attestation ---
Pre-Procedure Note/Attestation Complete Prior to Procedure Planned Procedure: right Procedure Narrative: hip closed reduction verses open reduction Indications for Procedure Pre-Operative Diagnosis: right hip dislocation Attestation I attest that I discussed the nature of the procedure; its benefits; risks and complications; and alternatives (and the risks and benefits of such alternatives ), prior to the procedure, with the patient (or the patient's legal medical center representative). I attest that, if there was a reasonable possibility of needing a blood transfusion, the patient (or the patient's legal medical center representative) was given the [facility] standardized written summary, pursuant to the [place] Blood Safety Act ([place] Health and Safety Code # 1645, as amended). I attest that I re-evaluated the patient just prior to the surgery and that there has been no change in the patient's H&P, except as documented below: Shen Lopez MD Mar 01, 2018 20:01
--- NOTE | 2018-03-01 20:01 | Operative Note - PDOC ---
Operative Note Operative Note Pre-op Diagnosis: right hip dislocation Procedure: see op report Post-op Diagnosis: same as pre-op plus Operative Findings: consistent w/pre-op dx studies Anesthesia: general Specimen: none Complications: none Condition: stable Estimated Blood Loss: none Implant(s) used?: Shen Costa MD Mar 01, 2018 20:01
[2018-03-01] MEDS ORDERED: Propofol 200mg/20ml IV ONE (20:24)
[2018-03-01] MEDS ORDERED: Metoclopramide 10mg/2ml Inj ONE (20:24)
[2018-03-01] MEDS ORDERED: Phenylephrine 10mg/ml Vial ONE (20:24)
[2018-03-01] MEDS ORDERED: Lidocaine 1% MPF 10mg/ml 5ml ONE (20:24)
[2018-03-01] MEDS ORDERED: Bacitracin 50000 Units Vial ONE (20:26)
[2018-03-01] MEDS ORDERED: NeoSporin Gu Irrig 1ml Amp IRRIG ONE (20:26)
[2018-03-01] MEDS ORDERED: ePHEDrine 50mg/ml Inj ONE (20:38)
[2018-03-01] MEDS ORDERED: Hydromorphone 0.5mg/0.5ml inj IVP PRN (20:45)
[2018-03-01] MEDS ORDERED: fentaNYL 100 mcg/2 mL IV PRN (20:45)
[2018-03-01] MEDS ORDERED: Metoclopramide 10mg/2ml Inj IVP PRN (20:45)
[2018-03-01] MEDS ORDERED: LORazepam Inj 2mg/ml 1ml IV PRN (20:45)
--- NOTE | 2018-03-01 20:48 | Anethesia Preoperative Eval ---
Anesthesia Pre-op PMH/ROS General Date of Evaluation: Mar 01, 2018 Time of Evaluation: 19:30 Anesthesiologist: lauren ASA Score: ASA 4 Mallampati Score Class I : Soft palate, uvula, fauces, pillars visible Class II: Soft palate, uvula, fauces visible Class III: Soft palate, base of uvula visible Class IV: Only hard plate visible Mallampati Classification: Class III Surgeon: ed Diagnosis: hip dislocation Surgical Procedure: closed and open right hip reduction Anesthesia History: none Family History: no anesthesia problems Allergies: Coded Allergies: No Known Allergies (Unverified , 08/10/13) Medications: see eMAR Patient NPO?: Yes NPO Date: Mar 01, 2018 NPO Time: 0800 Past Medical History Cardiovascular: Reports: HTN, CAD, arrhythmia - hx sick sinus, other - pacemaker AV paced - 2013; chf ef 35% Pulmonary: Reports: asthma, other - chf Gastrointestinal/Genitourinary: Denies: GERD, CRI, ESRD, other Neurologic/Psychiatric: Reports: dementia, depression/anxiety; Denies: CVA, TIA, other Endocrine: Reports: DM; Denies: hypothyroidism, steroids, other HEENT: Denies: cataract (L), cataract (R), glaucoma, ILIAMNA (L), ILIAMNA (R), other Hematology/Immune: Denies: anemia, DVT, bleeding disorder, other Musculoskeletal/Integumentary: Reports: DJD, other - dislocated hip; Denies: OA, RA, DDD, edema PSxH Narrative: hip replacement 10d ago; cardiac bypass 2017 Anesthesia Pre-op Phys. Exam Physician Exam Last Vital Signs Date Time Temp Pulse Resp B/P (MAP) Pulse Ox O2 Delivery O2 Flow Rate FiO2 03/01/18 16:00 97.7 89 18 131/58 (82) 98 97.7 03/01/18 09:00 Room Air Constitutional: other - vss at this time; disoriented Neurologic: other - demented Cardiovascular: other - av paced Respiratory: CTA Gastrointestinal: S/NT/ND Airway Exam Mallampati Classification 2 Mallampati Score: Class II MO: limited ROM: limited Dentures: no upper, no lower Anesthesia Pre-op A/P Labs Hematology Test 03/01/18 07:01 White Blood Count 5.3 K/UL (4.8-10.8) Red Blood Count 3.07 M/UL (4.20-5.40) L Hemoglobin 8.9 G/DL (12.0-16.0) L Hematocrit 28.0 % (37.0-47.0) L Mean Corpuscular Volume 91 FL (80-99) Mean Corpuscular Hemoglobin 29.1 PG (27.0-31.0) Mean Corpuscular Hemoglobin Concent 31.9 G/DL (32.0-36.0) L Red Cell Distribution Width 17.3 % (11.6-14.8) H Platelet Count 241 K/UL (150-450) Mean Platelet Volume 7.4 FL (6.5-10.1) Neutrophils (%) (Auto) 68.0 % (45.0-75.0) Lymphocytes (%) (Auto) 22.1 % (20.0-45.0) Monocytes (%) (Auto) 7.6 % (1.0-10.0) Eosinophils (%) (Auto) 1.7 % (0.0-3.0) Basophils (%) (Auto) 0.6 % (0.0-2.0) Coagulation Test 03/01/18 07:01 Prothrombin Time 11.4 SEC (9.30-11.50) Prothromb Time International Ratio 1.1 (0.9-1.1) Activated Partial Thromboplast Time 27 SEC (23-33) Chemistry Test 03/01/18 07:01 Sodium Level 140 MMOL/L (136-145) Potassium Level 3.8 MMOL/L (3.5-5.1) Chloride Level 110 MMOL/L (98-107) H Carbon Dioxide Level 24 MMOL/L (21-32) Anion Gap 6 mmol/L (5-15) Blood Urea Nitrogen 14 mg/dL (7-18) Creatinine 0.8 MG/DL (0.55-1.30) Estimat Glomerular Filtration Rate mL/min (>60) Glucose Level 102 MG/DL (74-106) Calcium Level 8.3 MG/DL (8.5-10.1) L Total Bilirubin 0.3 MG/DL (0.2-1.0) Aspartate Amino Transf (AST/SGOT) 22 U/L (15-37) Alanine Aminotransferase (ALT/SGPT) 19 U/L (12-78) Alkaline Phosphatase 64 U/L (46-116) Total Protein 5.1 G/DL (6.4-8.2) L Albumin 2.2 G/DL (3.4-5.0) L Globulin 2.9 g/dL Albumin/Globulin Ratio 0.8 (1.0-2.7) L Studies Pre-op Studies: EKG - AV paced, echo - ef 35% Risk Assessment & Plan Assessment: admitted to ; Plan: general Status Change Before Surgery: No Pre-Antibiotics Drug: ancef Given Within 1 Hr of Incision: Yes Time Given: 20:15 Naty Funes [facility] Mar 01, 2018 20:48
[2018-03-01] MEDS: TraZODone 50mg tab ORAL SCH (21:00)
--- NOTE | 2018-03-01 21:15 | Immediate Post-Op Evaluation ---
Immediate Post-Op Evalulation Immediate Post-Op Evalulation Procedure: closed and open reduction of right hip Date of Evaluation: Mar 01, 2018 Time of Evaluation: 21:15 IV Fluids: 400 Blood Products: 0 Estimated Blood Loss: 5 Blood Pressure Systolic: 164 Blood Pressure Diastolic: 81 Pulse Rate: 73 Respiratory Rate: 14 O2 Sat by Pulse Oximetry: 98 Temperature (Fahrenheit): 98.9 Pain Score (1-10): 0 Nausea: No Vomiting: No Complications none Patient Status: awake, reacts, patent Hydration Status: adequate Drug: ancef Given Within 1 Hr of Incision: Yes Time Given: 20:15 Naty Funes CRNA Mar 01, 2018 21:15
--- NOTE | 2018-03-01 22:30 | Consultation ---
DATE OF CONSULTATION: 02/28/2018 ORTHOPEDIC CONSULTATION CONSULTING PHYSICIAN: Shen Lopez M.D. CHIEF COMPLAINT: Right hip pain. HISTORY OF PRESENT ILLNESS: The patient is an 82-year-old female, who underwent a right hip hemiarthroplasty last week. She subsequently was brought to the ER with shortened, internally rotated leg. Imaging studies showed what appeared to be dislocation of the hip prosthesis. Now, the patient was noticed to have a fall from her bed. PAST MEDICAL HISTORY: Reviewed from the intake chart. SURGICAL HISTORY: Reviewed from the intake chart. MEDICATION: Reviewed from the intake chart. PHYSICAL EXAMINATION: SKIN: Shows incision is clean, dry, and intact. No ecchymosis or swelling of the right hip. MUSCULOSKELETAL: Right leg is shortened and internally rotated. DIAGNOSTIC DATA: Imaging studies showed hip dislocation with hemiarthroplasty. No obvious loosening or periprosthetic fracture. ASSESSMENT: Right hip hemiarthroplasty dislocation. DISCUSSION: At this point, ER tried multiple times to try to reduce it. It was unsuccessful. Therefore, we will preop her for possible closed reduction versus open reduction in the operating room tomorrow. She will be made n.p.o. after midnight in anticipation of surgery. Shen Lopez M.D. DR: Kayla JOB#: [id number] CC:
[2018-03-01] MEDS: D5 1/2NS w/KCl 20mEq 1,000 ML IV SCH (22:31)
--- NOTE | 2018-03-01 22:59 | Psych Consult Progress Note ---
Psych Consult Progress Note Consult 02/28/18 the pt was agitated and confused. the pt was yelling and became more agitated when seeing her dislocated hip Vital Signs Last 24 Hour Vital Signs Date Time Temp Pulse Resp B/P (MAP) Pulse Ox O2 Delivery O2 Flow Rate FiO2 03/01/18 21:42 75 14 158/76 100 Nasal Cannula 3 03/01/18 21:35 97.7 76 14 165/77 100 Nasal Cannula 3 97.7 03/01/18 21:30 75 15 155/78 100 Nasal Cannula 3 03/01/18 21:20 76 14 162/73 100 Nasal Cannula 3 03/01/18 21:15 210.0 73 14 98 03/01/18 21:10 73 14 150/94 100 Simple Mask 6 03/01/18 21:05 73 17 163/81 100 Simple Mask 6 03/01/18 21:00 98.9 73 14 161/92 100 Simple Mask 6 98.9 03/01/18 16:00 97.7 89 18 131/58 (82) 98 97.7 03/01/18 16:00 86 03/01/18 13:03 97 03/01/18 12:00 97.7 83 19 141/82 (101) 92 97.7 03/01/18 11:47 83 141/82 03/01/18 09:00 Room Air 03/01/18 09:00 119/58 03/01/18 08:00 97.9 76 19 119/58 (78) 98 97.9 03/01/18 07:45 80 03/01/18 04:00 77 03/01/18 04:00 97.0 76 20 118/60 (79) 98 97.0 03/01/18 00:00 97.3 69 20 106/63 (77) 98 97.3 03/01/18 00:00 68 Labs Laboratory Tests Test 03/01/18 07:01 White Blood Count 5.3 K/UL (4.8-10.8) Red Blood Count 3.07 M/UL (4.20-5.40) L Hemoglobin 8.9 G/DL (12.0-16.0) L Hematocrit 28.0 % (37.0-47.0) L Mean Corpuscular Volume 91 FL (80-99) Mean Corpuscular Hemoglobin 29.1 PG (27.0-31.0) Mean Corpuscular Hemoglobin Concent 31.9 G/DL (32.0-36.0) L Red Cell Distribution Width 17.3 % (11.6-14.8) H Platelet Count 241 K/UL (150-450) Mean Platelet Volume 7.4 FL (6.5-10.1) Neutrophils (%) (Auto) 68.0 % (45.0-75.0) Lymphocytes (%) (Auto) 22.1 % (20.0-45.0) Monocytes (%) (Auto) 7.6 % (1.0-10.0) Eosinophils (%) (Auto) 1.7 % (0.0-3.0) Basophils (%) (Auto) 0.6 % (0.0-2.0) Prothrombin Time 11.4 SEC (9.30-11.50) Prothromb Time International Ratio 1.1 (0.9-1.1) Activated Partial Thromboplast Time 27 SEC (23-33) Sodium Level 140 MMOL/L (136-145) Potassium Level 3.8 MMOL/L (3.5-5.1) Chloride Level 110 MMOL/L (98-107) H Carbon Dioxide Level 24 MMOL/L (21-32) Anion Gap 6 mmol/L (5-15) Blood Urea Nitrogen 14 mg/dL (7-18) Creatinine 0.8 MG/DL (0.55-1.30) Estimat Glomerular Filtration Rate mL/min (>60) Glucose Level 102 MG/DL (74-106) Calcium Level 8.3 MG/DL (8.5-10.1) L Total Bilirubin 0.3 MG/DL (0.2-1.0) Aspartate Amino Transf (AST/SGOT) 22 U/L (15-37) Alanine Aminotransferase (ALT/SGPT) 19 U/L (12-78) Alkaline Phosphatase 64 U/L (46-116) Total Protein 5.1 G/DL (6.4-8.2) L Albumin 2.2 G/DL (3.4-5.0) L Globulin 2.9 g/dL Albumin/Globulin Ratio 0.8 (1.0-2.7) L Medications Current Medications Medications (Trade) Dose Ordered Sig/Yi Route PRN Reason Start Time Stop Time Status Last Admin Dose Admin Acetaminophen/ Hydrocodone Bitart ([place] 5/325) 1 tab Q6H PRN ORAL For Pain 02/28/18 17:45 03/07/18 17:44 03/01/18 01:35 Aspirin (Ecotrin) 81 mg DAILY ORAL 03/01/18 09:00 03/31/18 08:59 Dextrose/ Electrolytes 1,000 ml @ 75 mls/hr [id number] IV 03/01/18 20:00 03/31/18 19:59 03/01/18 22:31 Famotidine (Pepcid) 20 mg DAILY ORAL 03/01/18 09:00 03/31/18 08:59 Fentanyl Citrate (Sublimaze 100 mcg/2 mL) 25 mcg Q10M PRN IV Moderate Pain (Pain Scale 4-6) 03/01/18 20:45 03/02/18 01:00 Furosemide (Lasix) 40 mg DAILY ORAL 03/01/18 09:00 03/31/18 08:59 Heparin Sodium (Porcine) (Heparin 5000 units/ml) 5,000 units EVERY 12 HOURS SUBQ 02/28/18 21:00 03/30/18 20:59 02/28/18 20:26 Hydromorphone HCl (Dilaudid) 0.5 mg Q15M PRN IVP Severe Pain (Pain Scale 7-10) 03/01/18 20:45 03/02/18 01:00 03/01/18 22:31 Imipramine HCl (Tofranil) 25 mg DAILY ORAL 03/01/18 09:00 03/31/18 08:59 Lorazepam (Ativan 2mg/ml 1ml) 0.5 mg Q15M PRN IV For Anxiety 03/01/18 20:45 03/02/18 01:00 Lorazepam (Ativan 2mg/ml 1ml) 2 mg Q6H PRN IV For Anxiety 03/01/18 17:45 03/08/18 17:44 Losartan Potassium (Cozaar) 25 mg DAILY ORAL 03/01/18 09:00 03/31/18 08:59 Metoclopramide HCl (Reglan) 10 mg Q1H PRN IVP Nausea & Vomiting 03/01/18 20:45 03/02/18 01:00 Metoprolol Succinate (Toprol XL) 50 mg DAILY ORAL 03/01/18 11:47 03/31/18 11:46 Ondansetron HCl (Zofran) 4 mg Q1H PRN IVP Nausea & Vomiting 03/01/18 20:45 03/02/18 01:00 Potassium Chloride (K-Dur) 10 meq DAILY ORAL 03/01/18 09:00 03/31/18 08:59 Risperidone (RisperDAL) 0.5 mg TID ORAL 03/01/18 13:00 03/31/18 12:59 Trazodone HCl (Desyrel) 50 mg BEDTIME ORAL 02/28/18 21:00 03/30/18 20:59 02/28/18 20:26 Problems: (1) Delirium Assessment & Plan: Dementia with behavioral dist Encephalopathy Psychotic d/o Risperdal .5mg tid ativan prn trazodone 50mg qhs (2) Psychosis (3) Hip dislocation, right Status: Acute Lena Bob MD Mar 01, 2018 22:59
--- NOTE | 2018-03-01 23:15 | History and Physical Report ---
DATE OF ADMISSION: 02/28/2018 CHIEF COMPLAINT: This is an 82-year-old Swedish-speaking female who presents with chief complaint of right hip pain. HISTORY OF PRESENT ILLNESS: The patient was admitted to [facility] from February 16, 2018 to February 23, 2018. The patient was admitted with right femoral neck fracture. The patient is status post right hip hemiarthroplasty on February 18, 2018. The patient was discharged home with home health. The patient then fell out of bed yesterday February 28, 2018. The patient was transported to [facility] emergency room with right hip pain. An x-ray demonstrated a dislocation of the right hip arthroplasty. The patient was admitted with dislocation of the right hip arthroplasty for Orthopedic consultation. REVIEW OF SYSTEMS: Unable to assess secondary to patient's mental status. PAST MEDICAL HISTORY: Significant for: 1. Right hip fracture as above. 2. Diabetes type 2. 3. Hypertension. 4. Sick sinus syndrome. 5. Hypercholesterolemia. 6. Coronary artery disease, status post non-ST elevated myocardial infarction. 7. Hypertension. 8. Aortic stenosis. 9. Pulmonary hypertension. 10. Alzheimer's dementia. PAST SURGICAL HISTORY: Significant for: 1. Right hip hemiarthroplasty on February 18, 2018. 2. Coronary artery bypass graft in 2016. 3. Pacemaker generator change in 2016. 4. Elbow debridement. 5. Pacemaker implantation in 2013. CURRENT MEDICATIONS: 1. Aspirin 81 mg one tablet p.o. daily. 2. Atenolol 25 mg p.o. daily. 3. Klonopin 0.5 mg p.o. twice daily. 4. Clonidine 0.1 mg p.o. q.8 hours p.r.n. 5. Clopidogrel 75 mg p.o. daily. 6. Dicyclomine 10 mg p.o. four times daily. 7. Pepcid 20 mg p.o. at bedtime. 8. Lasix 40 mg p.o. daily. 9. [place] 5/325 mg one tablet p.o. q.6 h. p.r.n. 10. Imipramine 25 mg p.o. daily. 11. Losartan 25 mg p.o. daily. 12. Metoprolol 50 mg p.o. daily. 13. Potassium chloride 10 mEq p.o. daily. 14. Rosuvastatin 10 mg p.o. daily. 15. Sitagliptin/metformin one tab p.o. daily. 16. Trazodone 50 mg p.o. at bedtime. ALLERGIES: No known drug allergies. SOCIAL HISTORY: The patient is and lives with her . The patient denies tobacco or alcohol use. PHYSICAL EXAMINATION: VITAL SIGNS: Temperature 97.9, respirations 19, pulse 76, blood pressure 119/58. GENERAL: The patient is well-developed and well-nourished confused elderly female, in no apparent distress. HEENT: Eyes, pupils are equal and responsive to light and accommodation. Extraocular movements are intact. NECK: Supple without lymphadenopathy. CHEST: Lungs are clear to auscultation bilaterally without wheezes or rales. CARDIOVASCULAR: Regular rate. S1 and S2 are normal without murmurs, rubs, or gallops. ABDOMEN: Soft, nontender, nondistended. Positive bowel sounds. No evidence of hepatosplenomegaly. Currently, no rebound or guarding noted. EXTREMITIES: Negative for clubbing, cyanosis, or edema. There is pain to palpation in the right hip. RECTAL/GENITAL: Refused. NEUROLOGICAL: Cranial nerves II through XII are grossly intact without focal deficits. Motor strength is 5/5 bilaterally. Deep tendon reflexes 2+ plantar. LABORATORY AND DIAGNOSTIC DATA: An x-ray of the pelvis showed dislocation of the right total hip arthroplasty and fracture of the left superior pubic rami. WBC 6.1, hemoglobin 9.1, hematocrit 29.4, platelets 239,000. Sodium 140, potassium 3.8, chloride 109, CO2 25, BUN 14, creatinine 0.9, glucose 134. ASSESSMENT: This is an 82-year-old white female. 1. Dislocation of the right hip arthroplasty. 2. Left superior rami fracture. 3. Coronary artery disease. 4. Diabetes type 2. 5. Hypertension. 6. Sick sinus syndrome. 7. Hypercholesteremia. 8. Aortic stenosis. 9. Alzheimer's dementia. 10. Pulmonary hypertension. TREATMENT: 1. Dislocation of the right hip arthroplasty. An Orthopedic consultation obtained with Dr. Girish Lopez. We will follow recommendation of Orthopedic Surgery. The patient will require repair of dislocation right hip arthroplasty. 2. Left superior rami fracture. 3. Coronary artery disease. The patient is status post coronary artery bypass graft in 2017. 4. Diabetes type 2. The patient has been started on NovoLog sliding scale. 5. Hypertension. The patient is currently hypotensive. Hold antihypertensive medication. 6. Sick sinus syndrome. The patient is status post pacemaker implantation. 7. Hypercholesteremia. Continue rosuvastatin as above. 8. Aortic stenosis. 9. Pulmonary hypertension. 10. Alzheimer's dementia. Aquilino Matthews M.D. DR: Jocelyn JOB#: [id number] CC:
--- NOTE | 2018-03-01 23:30 | Operative Note - Dictated ---
DATE OF OPERATION: 03/01/2018 NOTE: "POOR AUDIO QUALITY" SURGEON: Shen Lopez M.D. PREOPERATIVE DIAGNOSIS: Right dislocated hemiarthroplasty. POSTOPERATIVE DIAGNOSIS: Right dislocated hemiarthroplasty. PROCEDURE: Open reduction of a right hip hemiarthroplasty dislocation. SURGEON: Shen Lopez M.D. ANESTHESIA: General. INDICATION FOR PROCEDURE: The patient is a pleasant 82-year-old female, who sustained a mechanical fall and underwent right hip hemiarthroplasty approximately a week ago. She was in rehabilitation center. She was noted to have a fall from her bed and subsequently presented with shortened, internally rotated leg. Attempted reduction of the hip dislocation was attempted by the ER staff, which was unsuccessful and therefore, she was brought to the ER for possible closed reduction versus open reduction. I attempted to contact her daughter, Celine, was attempted, however, voicemail was full at the contact number provided. DESCRIPTION OF PROCEDURE: After informed consent was obtained, the patient was brought to the operating room. The patient was placed under sedation. Attempted reduction of the hip was performed which was unsuccessful. Therefore, it was felt that a formal open reduction was necessary. The patient was then carefully positioned in lateral decubitus position. The right hip was prepped and draped in sterile manner. Previous skin incision was marked out. The skin was incised. Blunt dissection through the fascia was performed. A hematoma was evacuated. Once this was done, care was taken to make sure there was no any soft tissue in the acetabulum that might be causing dislocation difficult with capsule head torn off the greater tuberosity. Reduction maneuver was performed. Once reduction maneuver was performed, hip flexed to 110 degrees, 90 degrees of flexion, internal rotation was 45 in extension, extension in external rotation was somewhat tight. It seemed like the patient had been out for at least a couple of days given that the soft tissue tension was much harder than I remembered it to be last week. Therefore, given that there was no loosening of the implant and postoperative x-rays looked reasonable in terms of the leg length, so it was felt that this was appropriate soft tissue tensioning. The capsule was reapproximated to the greater tuberosity. Fascia reji was approximated with #1 Vicryl suture, 2-0 Vicryl suture, and 3-0 Monocryl suture. Steri-Strips and a sterile dressing were applied. The patient was awoken and taken to recovery room with stable signs. ESTIMATED BLOOD LOSS: None. COMPLICATIONS: None. SPECIMENS: Include right hip aspirate for cultures. Shen Lopez M.D. DR: Kayla JOB#: [id number] CC:
[2018-03-02] VITALS (7 sets, daily range): BP systolic 113–174; BP diastolic 55–94
[2018-03-02] MEDS ORDERED: Hydromorphone 0.5mg/0.5ml inj IVP PRN (02:00)
[2018-03-02] MEDS: Hydromorphone 0.5mg/0.5ml inj IVP PRN ×2 (02:15→09:11)
[2018-03-02] MEDS: Losartan 25mg tab ORAL SCH (08:51)
[2018-03-02] MEDS: Imipramine 10mg tab ORAL SCH (08:51)
[2018-03-02] MEDS: Metoprolol Succinate XL 50mg tab ORAL SCH (08:52)
[2018-03-02] MEDS: Furosemide 40mg tab ORAL SCH (08:52)
[2018-03-02] MEDS: Aspirin EC 81mg tab ORAL SCH (08:52)
[2018-03-02] MEDS: LORazepam Inj 2mg/ml 1ml IV PRN (08:53)
[2018-03-02] MEDS: Heparin 5000 units/ml inj SUBQ SCH ×2 (08:53→21:11)
[2018-03-02] MEDS: D5 1/2NS w/KCl 20mEq 1,000 ML IV SCH ×2 (09:02→21:17)
--- NOTE | 2018-03-02 11:14 | General Progress Note ---
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 .5mg tid ativan prn trazodone 50mg qhs ICD Codes: R41.0 - Disorientation, unspecified SNOMED: 8253051 (2) Psychosis ICD Codes: F29 - Unspecified psychosis not due to a substance or known physiological condition SNOMED: 93532986 (3) Hip dislocation, right ICD Codes: S73.004A - Unspecified dislocation of right hip, initial encounter SNOMED: 978364614 Status: stable, progressing Subjective Date patient seen: Mar 02, 2018 Neurologic/Psychiatric: Reports: anxiety, depressed, emotional problems Allergies: Coded Allergies: No Known Allergies (Unverified , 08/10/13) Subjective the pt cont to be confused however calm and resting in NAD Objective Last 24 Hour Vital Signs Date Time Temp Pulse Resp B/P (MAP) Pulse Ox O2 Delivery O2 Flow Rate FiO2 03/02/18 09:11 98.0 03/02/18 08:52 96 144/82 03/02/18 08:51 144/82 03/02/18 07:10 105 144/88 (106) 97 03/02/18 04:00 98.0 115 22 150/84 (106) 86 98.0 03/02/18 04:00 79 03/02/18 00:00 98.1 118 22 174/94 (120) 88 98.1 03/02/18 00:00 131 03/01/18 21:42 75 14 158/76 100 Nasal Cannula 3 03/01/18 21:35 97.7 76 14 165/77 100 Nasal Cannula 3 97.7 03/01/18 21:30 75 15 155/78 100 Nasal Cannula 3 03/01/18 21:20 76 14 162/73 100 Nasal Cannula 3 03/01/18 21:15 210.0 73 14 98 03/01/18 21:10 73 14 150/94 100 Simple Mask 6 03/01/18 21:05 73 17 163/81 100 Simple Mask 6 03/01/18 21:00 Room Air 03/01/18 21:00 98.9 73 14 161/92 100 Simple Mask 6 98.9 03/01/18 20:00 93 03/01/18 16:00 97.7 89 18 131/58 (82) 98 97.7 03/01/18 16:00 86 03/01/18 13:03 97 03/01/18 12:00 97.7 83 19 141/82 (101) 92 97.7 03/01/18 11:47 83 141/82 Intake and Output 03/01/18 03/02/18 19:00 07:00 Intake Total 450 ml Output Total 10 ml Balance 440 ml IV Total 450 ml Output Urine Total 0 ml Estimated Blood Loss 10 ml # Voids 3 Height (Feet): 5 Height (Inches): 3.00 Weight (Pounds): 120 General Appearance: no apparent distress, alert, confused Neurologic: depressed affect Lena Bob MD Mar 02, 2018 11:14
--- NOTE | 2018-03-02 11:30 | Pulmonology Progress Note ---
Assessment/Plan Problems: (1) Hip dislocation, right (2) Delirium (3) CAD (coronary artery disease) (4) HTN (hypertension) (5) Pacemaker (6) Diabetes mellitus, type II Assessment/Plan symptomatic treatment pain management ortho f/u sliding scale one episode of fever. Open reduction was done yesterday. Subjective ROS Limited/Unobtainable: No Constitutional: Reports: no symptoms HEENT: Repors: no symptoms Respiratory: Reports: no symptoms Allergies: Coded Allergies: No Known Allergies (Unverified , 08/10/13) Objective Last 24 Hour Vital Signs Date Time Temp Pulse Resp B/P (MAP) Pulse Ox O2 Delivery O2 Flow Rate FiO2 03/02/18 09:11 98.0 03/02/18 08:52 96 144/82 03/02/18 08:51 144/82 03/02/18 07:10 105 144/88 (106) 97 03/02/18 04:00 98.0 115 22 150/84 (106) 86 98.0 03/02/18 04:00 79 03/02/18 00:00 98.1 118 22 174/94 (120) 88 98.1 03/02/18 00:00 131 03/01/18 21:42 75 14 158/76 100 Nasal Cannula 3 03/01/18 21:35 97.7 76 14 165/77 100 Nasal Cannula 3 97.7 03/01/18 21:30 75 15 155/78 100 Nasal Cannula 3 03/01/18 21:20 76 14 162/73 100 Nasal Cannula 3 03/01/18 21:15 210.0 73 14 98 03/01/18 21:10 73 14 150/94 100 Simple Mask 6 03/01/18 21:05 73 17 163/81 100 Simple Mask 6 03/01/18 21:00 Room Air 03/01/18 21:00 98.9 73 14 161/92 100 Simple Mask 6 98.9 03/01/18 20:00 93 03/01/18 16:00 97.7 89 18 131/58 (82) 98 97.7 03/01/18 16:00 86 03/01/18 13:03 97 03/01/18 12:00 97.7 83 19 141/82 (101) 92 97.7 03/01/18 11:47 83 141/82 Intake and Output 03/01/18 03/02/18 19:00 07:00 Intake Total 450 ml Output Total 10 ml Balance 440 ml IV Total 450 ml Output Urine Total 0 ml Estimated Blood Loss 10 ml # Voids 3 General Appearance: cachetic HEENT: normocephalic, atraumatic Respiratory/Chest: chest wall non-tender, lungs clear Cardiovascular: normal peripheral pulses, normal rate Abdomen: normal bowel sounds, soft, non tender Skin: no rash 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 Complete Current Medications Medications (Trade) Dose Ordered Sig/Yi Route PRN Reason Start Time Stop Time Status Last Admin Dose Admin Acetaminophen/ Hydrocodone Bitart ([place] 5/325) 1 tab Q6H PRN ORAL For Pain 02/28/18 17:45 03/07/18 17:44 03/01/18 01:35 Aspirin (Ecotrin) 81 mg DAILY ORAL 03/01/18 09:00 03/31/18 08:59 03/02/18 08:52 Dextrose/ Electrolytes 1,000 ml @ 75 mls/hr [id number] IV 03/01/18 20:00 03/31/18 19:59 03/02/18 09:02 Famotidine (Pepcid) 20 mg DAILY ORAL 03/01/18 09:00 03/31/18 08:59 03/02/18 08:52 Furosemide (Lasix) 40 mg DAILY ORAL 03/01/18 09:00 03/31/18 08:59 03/02/18 08:52 Heparin Sodium (Porcine) (Heparin 5000 units/ml) 5,000 units EVERY 12 HOURS SUBQ 02/28/18 21:00 03/30/18 20:59 03/02/18 08:53 Hydromorphone HCl (Dilaudid) 0.5 mg Q4H PRN IVP For SEVERE Pain 7-02/2403/02/18 06:00 03/09/18 01:59 03/02/18 09:11 Imipramine HCl (Tofranil) 25 mg DAILY ORAL 03/01/18 09:00 03/31/18 08:59 03/02/18 08:51 Lorazepam (Ativan 2mg/ml 1ml) 2 mg Q6H PRN IV For Anxiety 03/01/18 17:45 03/08/18 17:44 03/02/18 08:53 Losartan Potassium (Cozaar) 25 mg DAILY ORAL 03/01/18 09:00 03/31/18 08:59 03/02/18 08:51 Metoprolol Succinate (Toprol XL) 50 mg DAILY ORAL 03/01/18 11:47 03/31/18 11:46 03/02/18 08:52 Potassium Chloride (K-Dur) 10 meq DAILY ORAL 03/01/18 09:00 03/31/18 08:59 03/02/18 08:52 Risperidone (RisperDAL) 0.5 mg BEDTIME ORAL 03/02/18 21:00 04/01/18 20:59 Trazodone HCl (Desyrel) 50 mg BEDTIME ORAL 02/28/18 21:00 03/30/18 20:59 02/28/18 20:26 Rod Mancera MD Mar 02, 2018 11:30
--- NOTE | 2018-03-02 12:30 | Diagnostic Imaging Report ---
Indication: POST-OP, hip pain, status post prosthesis dislocation Technique: One view of the pelvis Comparison: 02/28/2018 Findings: Interim reduction of previously demonstrated dislocated right hip hemiarthroplasty prosthesis, prosthesis in good position. A small amount of gas is seen in the soft tissues, presumably retained air from the surgical exposure. Old fracture deformity of the left pubic bones is noted. Impression: Interim reduction of previously demonstrated dislocated right hip hemiarthroplasty prosthesis. No unusual features
--- NOTE | 2018-03-02 13:25 | 48 Hour Post Anesthesia Eval ---
Post Anesthesia Evaluation Procedure: closed and open reduction of right hip Date of Evaluation: Mar 02, 2018 Time of Evaluation: 13:25 Nausea: No Vomiting: No Sarah Conner MD Mar 02, 2018 13:25
--- NOTE | 2018-03-02 16:22 | Internal Med Progress Note ---
Subjective Date of Service: Mar 02, 2018 Physician Name Aquilino Matthews Attending Physician Carlos Alberto Berkowitz MD Current Medications Medications (Trade) Dose Ordered Sig/Yi Route PRN Reason Start Time Stop Time Status Last Admin Dose Admin Acetaminophen/ Hydrocodone Bitart ([place] 5/325) 1 tab Q6H PRN ORAL For Pain 02/28/18 17:45 03/07/18 17:44 03/01/18 01:35 Aspirin (Ecotrin) 81 mg DAILY ORAL 03/01/18 09:00 03/31/18 08:59 03/02/18 08:52 Dextrose/ Electrolytes 1,000 ml @ 75 mls/hr [id number] IV 03/01/18 20:00 03/31/18 19:59 03/02/18 09:02 Famotidine (Pepcid) 20 mg DAILY ORAL 03/01/18 09:00 03/31/18 08:59 03/02/18 08:52 Furosemide (Lasix) 40 mg DAILY ORAL 03/01/18 09:00 03/31/18 08:59 03/02/18 08:52 Heparin Sodium (Porcine) (Heparin 5000 units/ml) 5,000 units EVERY 12 HOURS SUBQ 02/28/18 21:00 03/30/18 20:59 03/02/18 08:53 Hydromorphone HCl (Dilaudid) 0.5 mg Q4H PRN IVP For SEVERE Pain 7-02/2403/02/18 06:00 03/09/18 01:59 03/02/18 09:11 Imipramine HCl (Tofranil) 25 mg DAILY ORAL 03/01/18 09:00 03/31/18 08:59 03/02/18 08:51 Lorazepam (Ativan 2mg/ml 1ml) 2 mg Q6H PRN IV For Anxiety 03/01/18 17:45 03/08/18 17:44 03/02/18 08:53 Losartan Potassium (Cozaar) 25 mg DAILY ORAL 03/01/18 09:00 03/31/18 08:59 03/02/18 08:51 Metoprolol Succinate (Toprol XL) 50 mg DAILY ORAL 03/01/18 11:47 03/31/18 11:46 03/02/18 08:52 Potassium Chloride (K-Dur) 10 meq DAILY ORAL 03/01/18 09:00 03/31/18 08:59 03/02/18 08:52 Risperidone (RisperDAL) 0.5 mg BEDTIME ORAL 03/02/18 21:00 04/01/18 20:59 Trazodone HCl (Desyrel) 50 mg BEDTIME ORAL 02/28/18 21:00 03/30/18 20:59 02/28/18 20:26 Allergies: Coded Allergies: No Known Allergies (Unverified , 08/10/13) ROS Limited/Unobtainable: No Constitutional: Reports: no symptoms HEENT: Reports: no symptoms Cardiovascular: Reports: no symptoms Respiratory: Reports: no symptoms Gastrointestinal/Abdominal: Reports: no symptoms Genitourinary: Reports: no symptoms Neurologic/Psychiatric: Reports: no symptoms Subjective 82 YO F admitted with dislocation of right hip hemiarthroplasty. S/P open reduction right hip hemiarthroplasty dislocation on 03/01/18. Cover for [facility] Aak[facility] -Dr Berkowitz. Objective Last Vital Signs Date Time Temp Pulse Resp B/P (MAP) Pulse Ox O2 Delivery O2 Flow Rate FiO2 03/02/18 12:00 97.2 83 18 113/61 (78) 99 97.2 03/02/18 09:00 Room Air 03/01/18 21:42 3 General Appearance: WD/WN, no apparent distress, alert EENT: PERRL/EOMI, normal ENT inspection Neck: non-tender, normal alignment, supple, normal inspection Cardiovascular: normal peripheral pulses, normal rate, regular rhythm, no gallop/murmur, no JVD Respiratory/Chest: chest wall non-tender, lungs clear, normal breath sounds, no respiratory distress, no accessory muscle use Abdomen: normal bowel sounds, non tender, soft, no organomegaly, no mass Extremities: normal range of motion, other - tender right hip 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 Complete Intake and Output 03/01/18 03/02/18 19:00 07:00 Intake Total 450 ml Output Total 10 ml Balance 440 ml IV Total 450 ml Output Urine Total 0 ml Estimated Blood Loss 10 ml # Voids 3 Assessment/Plan Problem List: (1) Hypercholesterolemia (2) Aortic stenosis (3) Pulmonary hypertension (4) Alzheimer's dementia (5) Recurrent dislocation, right hip Assessment & Plan: S/P open reduction right hip hemiarthroplasty dislocation on 03/01/18-see ortho note (6) Fracture of superior pubic ramus (7) CAD (coronary artery disease) (8) Diabetes mellitus, type II (9) HTN (hypertension) Assessment & Plan: Continue cozaar (10) Sick sinus syndrome Aquilino Matthews MD Mar 02, 2018 16:22
[2018-03-02] MEDS: TraZODone 50mg tab ORAL SCH (21:10)
[2018-03-03] VITALS (7 sets, daily range): BP systolic 108–151; BP diastolic 59–96
[2018-03-03] MEDS: Hydromorphone 0.5mg/0.5ml inj IVP PRN (00:12)
[2018-03-03 07:42] LABS: BASOPHILS % (AUTO) 0.5 % (0.0-2.0); EOSINOPHILS % (AUTO) 0.7 % (0.0-3.0); HEMATOCRIT 29.3 % (37.0-47.0); HEMOGLOBIN 9.1 G/DL (12.0-16.0); LYMPHOCYTES % (AUTO) 15.4 % (20.0-45.0); MEAN CORPUSCULAR VOLUME 93 FL (80-99); NEUTROPHILS % (AUTO) 77.4 % (45.0-75.0); PLATELET COUNT 221 K/UL (150-450); RED BLOOD COUNT 3.14 M/UL (4.20-5.40); RED CELL DISTRIBUTION WIDTH 17.8 % (11.6-14.8); WHITE BLOOD COUNT 5.8 K/UL (4.8-10.8)
[2018-03-03 08:04] LABS: ALANINE AMINOTRANSFERASE 16 U/L (12-78); ALBUMIN 2.2 G/DL (3.4-5.0); ALBUMIN/GLOBULIN RATIO 0.7 (1.0-2.7); ALKALINE PHOSPHATASE 57 U/L (46-116); ANION GAP 10 mmol/L (5-15); ASPARTATE AMINO TRANSFERASE 44 U/L (15-37); BILIRUBIN,TOTAL 0.5 MG/DL (0.2-1.0); BLOOD UREA NITROGEN 10 mg/dL (7-18); CALCIUM 8.5 MG/DL (8.5-10.1); CARBON DIOXIDE 23 MMOL/L (21-32); CHLORIDE 106 MMOL/L (98-107); CREATININE 0.7 MG/DL (0.55-1.30); PHOSPHORUS 3.1 MG/DL (2.5-4.9); POTASSIUM 4.3 MMOL/L (3.5-5.1); SODIUM 139 MMOL/L (136-145)
[2018-03-03] MEDS: LORazepam Inj 2mg/ml 1ml IV PRN (08:33)
[2018-03-03] MEDS: Aspirin EC 81mg tab ORAL SCH (09:03)
[2018-03-03] MEDS: Imipramine 10mg tab ORAL SCH (09:03)
[2018-03-03] MEDS: Losartan 25mg tab ORAL SCH (09:03)
[2018-03-03] MEDS: Furosemide 40mg tab ORAL SCH (09:03)
[2018-03-03] MEDS: Metoprolol Succinate XL 50mg tab ORAL SCH (09:03)
[2018-03-03] MEDS: Heparin 5000 units/ml inj SUBQ SCH ×2 (09:06→20:09)
--- NOTE | 2018-03-03 11:02 | General Progress Note ---
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 .5mg tid ativan prn trazodone 50mg qhs ICD Codes: R41.0 - Disorientation, unspecified SNOMED: 2625326 (2) Psychosis ICD Codes: F29 - Unspecified psychosis not due to a substance or known physiological condition SNOMED: 28909322 (3) Hip dislocation, right ICD Codes: S73.004A - Unspecified dislocation of right hip, initial encounter SNOMED: 342602357 Status: stable - risperdal .5 bid Subjective Date patient seen: Mar 03, 2018 Neurologic/Psychiatric: Reports: anxiety, depressed Allergies: Coded Allergies: No Known Allergies (Unverified , 08/10/13) Subjective the pt cont to be confused and was agitated this am. the pt was given ativan Objective Last 24 Hour Vital Signs Date Time Temp Pulse Resp B/P (MAP) Pulse Ox O2 Delivery O2 Flow Rate FiO2 03/03/18 09:03 87 120/72 03/03/18 09:03 120/72 03/03/18 09:00 Room Air 03/03/18 08:00 101 03/03/18 08:00 97.7 87 18 120/72 (88) 92 97.7 03/03/18 04:00 87 03/03/18 04:00 97.0 79 20 129/68 (88) 93 97.0 03/03/18 00:00 94 03/03/18 00:00 97.0 84 23 108/71 (83) 97 97.0 03/02/18 21:00 Room Air 03/02/18 20:00 96.8 88 19 132/69 (90) 97 96.8 03/02/18 20:00 86 03/02/18 16:00 97.1 76 18 117/55 (75) 97 97.1 03/02/18 16:00 76 03/02/18 12:00 97.2 83 18 113/61 (78) 99 97.2 03/02/18 12:00 78 Intake and Output 03/02/18 03/03/18 19:00 07:00 Intake Total 150 ml 1075 ml Output Total 1000 ml 310 ml Balance -850 ml 765 ml Intake Oral 150 ml 150 ml IV Total 925 ml Output Urine Total 1000 ml 300 ml Estimated Blood Loss 10 ml # Voids 3 Laboratory Tests 03/03/18 06:13: White Blood Count 5.8, Red Blood Count 3.14L, Hemoglobin 9.1L, Hematocrit 29.3L , Mean Corpuscular Volume 93, Mean Corpuscular Hemoglobin 29.0, Mean Corpuscular Hemoglobin Concent 31.1L, Red Cell Distribution Width 17.8H, Platelet Count 221, Mean Platelet Volume 7.4, Neutrophils (%) (Auto) 77.4H, Lymphocytes (%) (Auto) 15.4L, Monocytes (%) (Auto) 6.0, Eosinophils (%) (Auto) 0.7, Basophils (%) (Auto) 0.5, Sodium Level 139, Potassium Level 4.3, Chloride Level 106, Carbon Dioxide Level 23, Anion Gap 10, Blood Urea Nitrogen 10, Creatinine 0.7, Estimat Glomerular Filtration Rate , Glucose Level 105, Calcium Level 8.5, Phosphorus Level 3.1, Magnesium Level 1.4L, Total Bilirubin 0.5, Aspartate Amino Transf (AST/SGOT) 44H, Alanine Aminotransferase (ALT/SGPT) 16, Alkaline Phosphatase 57, Total Protein 5.2L, Albumin 2.2L, Globulin 3.0, Albumin /Globulin Ratio 0.7L Height (Feet): 5 Height (Inches): 3.00 Weight (Pounds): 136 General Appearance: no apparent distress, alert, confused, agitated Lena Bob MD Mar 03, 2018 11:02
--- NOTE | 2018-03-03 11:26 | Pulmonology Progress Note ---
Assessment/Plan Problems: (1) Hip dislocation, right (2) Delirium (3) CAD (coronary artery disease) (4) HTN (hypertension) (5) Pacemaker (6) Diabetes mellitus, type II Assessment/Plan symptomatic treatment pain management ortho f/u sliding scale one episode of fever. Open reduction was done Subjective ROS Limited/Unobtainable: No Constitutional: Reports: no symptoms HEENT: Repors: no symptoms Respiratory: Reports: no symptoms Allergies: Coded Allergies: No Known Allergies (Unverified , 08/10/13) Objective Last 24 Hour Vital Signs Date Time Temp Pulse Resp B/P (MAP) Pulse Ox O2 Delivery O2 Flow Rate FiO2 03/03/18 09:03 87 120/72 03/03/18 09:03 120/72 03/03/18 09:00 Room Air 03/03/18 08:00 101 03/03/18 08:00 97.7 87 18 120/72 (88) 92 97.7 03/03/18 04:00 87 03/03/18 04:00 97.0 79 20 129/68 (88) 93 97.0 03/03/18 00:00 94 03/03/18 00:00 97.0 84 23 108/71 (83) 97 97.0 03/02/18 21:00 Room Air 03/02/18 20:00 96.8 88 19 132/69 (90) 97 96.8 03/02/18 20:00 86 03/02/18 16:00 97.1 76 18 117/55 (75) 97 97.1 03/02/18 16:00 76 03/02/18 12:00 97.2 83 18 113/61 (78) 99 97.2 03/02/18 12:00 78 Intake and Output 03/02/18 03/03/18 19:00 07:00 Intake Total 150 ml 1075 ml Output Total 1000 ml 310 ml Balance -850 ml 765 ml Intake Oral 150 ml 150 ml IV Total 925 ml Output Urine Total 1000 ml 300 ml Estimated Blood Loss 10 ml # Voids 3 General Appearance: cachetic HEENT: normocephalic, atraumatic Respiratory/Chest: chest wall non-tender, lungs clear Breasts: no masses Cardiovascular: normal peripheral pulses Abdomen: normal bowel sounds Genitourinary: normal external genitalia Skin: no rash Microbiology Date/Time Source Procedure Growth Status 02/28/18 14:00 Nasal Nares MRSA Culture - Final Staphylococcus Aureus - Mrsa Complete 03/01/18 20:27 Hip Right Gram Stain - Final Resulted 03/01/18 20:27 Hip Right Aerobic Culture - Preliminary NO GROWTH AFTER 24 HOURS Resulted 03/01/18 20:27 Hip Right Anaerobic Culture - Preliminary NO GROWTH AFTER 48 HOURS Resulted 02/28/18 14:00 Rectum VRE Culture - Final NO VANCOMYCIN RESISTANT ENTEROCOCCUS ... Complete Laboratory Tests 03/03/18 06:13: White Blood Count 5.8, Red Blood Count 3.14L, Hemoglobin 9.1L, Hematocrit 29.3L , Mean Corpuscular Volume 93, Mean Corpuscular Hemoglobin 29.0, Mean Corpuscular Hemoglobin Concent 31.1L, Red Cell Distribution Width 17.8H, Platelet Count 221, Mean Platelet Volume 7.4, Neutrophils (%) (Auto) 77.4H, Lymphocytes (%) (Auto) 15.4L, Monocytes (%) (Auto) 6.0, Eosinophils (%) (Auto) 0.7, Basophils (%) (Auto) 0.5, Sodium Level 139, Potassium Level 4.3, Chloride Level 106, Carbon Dioxide Level 23, Anion Gap 10, Blood Urea Nitrogen 10, Creatinine 0.7, Estimat Glomerular Filtration Rate , Glucose Level 105, Calcium Level 8.5, Phosphorus Level 3.1, Magnesium Level 1.4L, Total Bilirubin 0.5, Aspartate Amino Transf (AST/SGOT) 44H, Alanine Aminotransferase (ALT/SGPT) 16, Alkaline Phosphatase 57, Total Protein 5.2L, Albumin 2.2L, Globulin 3.0, Albumin /Globulin Ratio 0.7L Current Medications Medications (Trade) Dose Ordered Sig/Yi Route PRN Reason Start Time Stop Time Status Last Admin Dose Admin Acetaminophen/ Hydrocodone Bitart ([place] 5/325) 1 tab Q6H PRN ORAL For Pain 02/28/18 17:45 03/07/18 17:44 03/01/18 01:35 Aspirin (Ecotrin) 81 mg DAILY ORAL 03/01/18 09:00 03/31/18 08:59 03/03/18 09:03 Dextrose/ Electrolytes 1,000 ml @ 75 mls/hr [id number] IV 03/01/18 20:00 03/31/18 19:59 03/02/18 21:17 Famotidine (Pepcid) 20 mg DAILY ORAL 03/01/18 09:00 03/31/18 08:59 03/03/18 09:03 Furosemide (Lasix) 40 mg DAILY ORAL 03/01/18 09:00 03/31/18 08:59 03/03/18 09:03 Heparin Sodium (Porcine) (Heparin 5000 units/ml) 5,000 units EVERY 12 HOURS SUBQ 02/28/18 21:00 03/30/18 20:59 03/03/18 09:06 Hydromorphone HCl (Dilaudid) 0.5 mg Q4H PRN IVP For SEVERE Pain 7-02/2403/02/18 06:00 03/09/18 01:59 03/03/18 00:12 Imipramine HCl (Tofranil) 25 mg DAILY ORAL 03/01/18 09:00 03/31/18 08:59 03/03/18 09:03 Lorazepam (Ativan 2mg/ml 1ml) 2 mg Q6H PRN IV For Anxiety 03/01/18 17:45 03/08/18 17:44 03/03/18 08:33 Losartan Potassium (Cozaar) 25 mg DAILY ORAL 03/01/18 09:00 03/31/18 08:59 03/03/18 09:03 Metoprolol Succinate (Toprol XL) 50 mg DAILY ORAL 03/01/18 11:47 03/31/18 11:46 03/03/18 09:03 Potassium Chloride (K-Dur) 10 meq DAILY ORAL 03/01/18 09:00 03/31/18 08:59 03/03/18 09:03 Risperidone (RisperDAL) 0.5 mg BID ORAL 03/03/18 18:00 04/02/18 17:59 Trazodone HCl (Desyrel) 50 mg BEDTIME ORAL 02/28/18 21:00 03/30/18 20:59 03/02/18 21:10 Rod Mancera MD Mar 03, 2018 11:26
--- NOTE | 2018-03-03 11:54 | Internal Med Progress Note ---
Subjective Date of Service: Mar 03, 2018 Physician Name Aquilino Matthews Attending Physician Carlos Alberto Berkowitz MD Current Medications Medications (Trade) Dose Ordered Sig/Yi Route PRN Reason Start Time Stop Time Status Last Admin Dose Admin Acetaminophen/ Hydrocodone Bitart ([place] 5/325) 1 tab Q6H PRN ORAL For Pain 02/28/18 17:45 03/07/18 17:44 03/01/18 01:35 Aspirin (Ecotrin) 81 mg DAILY ORAL 03/01/18 09:00 03/31/18 08:59 03/03/18 09:03 Dextrose/ Electrolytes 1,000 ml @ 75 mls/hr [id number] IV 03/01/18 20:00 03/31/18 19:59 03/02/18 21:17 Famotidine (Pepcid) 20 mg DAILY ORAL 03/01/18 09:00 03/31/18 08:59 03/03/18 09:03 Furosemide (Lasix) 40 mg DAILY ORAL 03/01/18 09:00 03/31/18 08:59 03/03/18 09:03 Heparin Sodium (Porcine) (Heparin 5000 units/ml) 5,000 units EVERY 12 HOURS SUBQ 02/28/18 21:00 03/30/18 20:59 03/03/18 09:06 Hydromorphone HCl (Dilaudid) 0.5 mg Q4H PRN IVP For SEVERE Pain 7-02/2403/02/18 06:00 03/09/18 01:59 03/03/18 00:12 Imipramine HCl (Tofranil) 25 mg DAILY ORAL 03/01/18 09:00 03/31/18 08:59 03/03/18 09:03 Lorazepam (Ativan 2mg/ml 1ml) 2 mg Q6H PRN IV For Anxiety 03/01/18 17:45 03/08/18 17:44 03/03/18 08:33 Losartan Potassium (Cozaar) 25 mg DAILY ORAL 03/01/18 09:00 03/31/18 08:59 03/03/18 09:03 Metoprolol Succinate (Toprol XL) 50 mg DAILY ORAL 03/01/18 11:47 03/31/18 11:46 03/03/18 09:03 Potassium Chloride (K-Dur) 10 meq DAILY ORAL 03/01/18 09:00 03/31/18 08:59 03/03/18 09:03 Risperidone (RisperDAL) 0.5 mg BID ORAL 03/03/18 18:00 04/02/18 17:59 Trazodone HCl (Desyrel) 50 mg BEDTIME ORAL 02/28/18 21:00 03/30/18 20:59 03/02/18 21:10 Allergies: Coded Allergies: No Known Allergies (Unverified , 08/10/13) ROS Limited/Unobtainable: No Constitutional: Reports: no symptoms HEENT: Reports: no symptoms Cardiovascular: Reports: no symptoms Respiratory: Reports: no symptoms Gastrointestinal/Abdominal: Reports: no symptoms Genitourinary: Reports: no symptoms Neurologic/Psychiatric: Reports: no symptoms Subjective 82 YO F admitted with dislocation of right hip hemiarthroplasty. S/P open reduction right hip hemiarthroplasty dislocation on 03/01/18. Cover for Int Aakash -Dr Berkowitz. Less agitated today Objective Last Vital Signs Date Time Temp Pulse Resp B/P (MAP) Pulse Ox O2 Delivery O2 Flow Rate FiO2 03/03/18 09:03 87 120/72 03/03/18 09:00 Room Air 03/03/18 08:00 97.7 18 92 97.7 03/01/18 21:42 3 Laboratory Tests Test 03/03/18 06:13 White Blood Count 5.8 K/UL (4.8-10.8) Red Blood Count 3.14 M/UL (4.20-5.40) L Hemoglobin 9.1 G/DL (12.0-16.0) L Hematocrit 29.3 % (37.0-47.0) L Mean Corpuscular Volume 93 FL (80-99) Mean Corpuscular Hemoglobin 29.0 PG (27.0-31.0) Mean Corpuscular Hemoglobin Concent 31.1 G/DL (32.0-36.0) L Red Cell Distribution Width 17.8 % (11.6-14.8) H Platelet Count 221 K/UL (150-450) Mean Platelet Volume 7.4 FL (6.5-10.1) Neutrophils (%) (Auto) 77.4 % (45.0-75.0) H Lymphocytes (%) (Auto) 15.4 % (20.0-45.0) L Monocytes (%) (Auto) 6.0 % (1.0-10.0) Eosinophils (%) (Auto) 0.7 % (0.0-3.0) Basophils (%) (Auto) 0.5 % (0.0-2.0) Sodium Level 139 MMOL/L (136-145) Potassium Level 4.3 MMOL/L (3.5-5.1) Chloride Level 106 MMOL/L (98-107) Carbon Dioxide Level 23 MMOL/L (21-32) Anion Gap 10 mmol/L (5-15) Blood Urea Nitrogen 10 mg/dL (7-18) Creatinine 0.7 MG/DL (0.55-1.30) Estimat Glomerular Filtration Rate mL/min (>60) Glucose Level 105 MG/DL (74-106) Calcium Level 8.5 MG/DL (8.5-10.1) Phosphorus Level 3.1 MG/DL (2.5-4.9) Magnesium Level 1.4 MG/DL (1.8-2.4) L Total Bilirubin 0.5 MG/DL (0.2-1.0) Aspartate Amino Transf (AST/SGOT) 44 U/L (15-37) H Alanine Aminotransferase (ALT/SGPT) 16 U/L (12-78) Alkaline Phosphatase 57 U/L (46-116) Total Protein 5.2 G/DL (6.4-8.2) L Albumin 2.2 G/DL (3.4-5.0) L Globulin 3.0 g/dL Albumin/Globulin Ratio 0.7 (1.0-2.7) L Microbiology Date/Time Source Procedure Growth Status 02/28/18 14:00 Nasal Nares MRSA Culture - Final Staphylococcus Aureus - Mrsa Complete 03/01/18 20:27 Hip Right Gram Stain - Final Resulted 03/01/18 20:27 Hip Right Aerobic Culture - Preliminary NO GROWTH AFTER 24 HOURS Resulted 03/01/18 20:27 Hip Right Anaerobic Culture - Preliminary NO GROWTH AFTER 48 HOURS Resulted 02/28/18 14:00 Rectum VRE Culture - Final NO VANCOMYCIN RESISTANT ENTEROCOCCUS ... Complete Intake and Output 03/02/18 03/03/18 19:00 07:00 Intake Total 150 ml 1075 ml Output Total 1000 ml 310 ml Balance -850 ml 765 ml Intake Oral 150 ml 150 ml IV Total 925 ml Output Urine Total 1000 ml 300 ml Estimated Blood Loss 10 ml # Voids 3 Objective General Appearance: WD/WN, no apparent distress, alert EENT: PERRL/EOMI, normal ENT inspection Neck: non-tender, normal alignment, supple, normal inspection Cardiovascular: normal peripheral pulses, normal rate, regular rhythm, no gallop/murmur, no JVD Respiratory/Chest: chest wall non-tender, lungs clear, normal breath sounds, no respiratory distress, no accessory muscle use Abdomen: normal bowel sounds, non tender, soft, no organomegaly, no mass Extremities: normal range of motion, other - tender right hip 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, no motor/sensory deficits Skin: normal pigmentation, warm/dry Assessment/Plan Problem List: (1) Hypercholesterolemia (2) Aortic stenosis (3) Pulmonary hypertension (4) Alzheimer's dementia (5) Recurrent dislocation, right hip Assessment & Plan: S/P open reduction right hip hemiarthroplasty dislocation on 03/01/18-see ortho note (6) Fracture of superior pubic ramus (7) CAD (coronary artery disease) (8) Diabetes mellitus, type II (9) HTN (hypertension) Assessment & Plan: Continue cozaar (10) Sick sinus syndrome Assessment/Plan Discharge planning: SNF vs Acute Rehab Aquilino Matthews MD Mar 03, 2018 11:54
[2018-03-03] MEDS: D5 1/2NS w/KCl 20mEq 1,000 ML IV SCH ×2 (12:10→17:45)
[2018-03-03] MEDS ORDERED: Norco 5mg/325mg tab ORAL PRN (17:45)
[2018-03-03] MEDS ORDERED: Hydromorphone 0.5mg/0.5ml inj IVP PRN (18:00)
[2018-03-03] MEDS ORDERED: TraZODone 50mg tab ORAL SCH (21:00)
[2018-03-04] VITALS (7 sets, daily range): BP systolic 98–149; BP diastolic 44–89
[2018-03-04] MEDS: D5 1/2NS w/KCl 20mEq 1,000 ML IV SCH (06:01)
[2018-03-04 08:30] LABS: ANION GAP 9 mmol/L (5-15); BLOOD UREA NITROGEN 7 mg/dL (7-18); CALCIUM 8.3 MG/DL (8.5-10.1); CARBON DIOXIDE 25 MMOL/L (21-32); CHLORIDE 105 MMOL/L (98-107); CREATININE 0.6 MG/DL (0.55-1.30); POTASSIUM 3.3 MMOL/L (3.5-5.1); SODIUM 139 MMOL/L (136-145)
[2018-03-04] MEDS: Furosemide 40mg tab ORAL SCH (09:05)
[2018-03-04] MEDS: Metoprolol Succinate XL 50mg tab ORAL SCH (09:06)
[2018-03-04] MEDS: Losartan 25mg tab ORAL SCH (09:06)
[2018-03-04] MEDS: Aspirin EC 81mg tab ORAL SCH (09:07)
[2018-03-04] MEDS: Imipramine 10mg tab ORAL SCH (09:08)
[2018-03-04] MEDS: Heparin 5000 units/ml inj SUBQ SCH ×2 (09:10→21:01)
[2018-03-04 09:52] LABS: BASOPHILS % (AUTO) 0.6 % (0.0-2.0); EOSINOPHILS % (AUTO) 1.2 % (0.0-3.0); HEMATOCRIT 30.2 % (37.0-47.0); HEMOGLOBIN 9.4 G/DL (12.0-16.0); MEAN CORPUSCULAR VOLUME 94 FL (80-99); NEUTROPHILS % (AUTO) 68.3 % (45.0-75.0); PLATELET COUNT 181 K/UL (150-450); RED BLOOD COUNT 3.22 M/UL (4.20-5.40); RED CELL DISTRIBUTION WIDTH 17.4 % (11.6-14.8); WHITE BLOOD COUNT 5.4 K/UL (4.8-10.8)
[2018-03-04] MEDS: LORazepam Inj 2mg/ml 1ml IV PRN (11:19)
[2018-03-04] MEDS ORDERED: LORazepam Inj 2mg/ml 1ml IV SCH (12:30)
--- NOTE | 2018-03-04 12:41 | Diagnostic Imaging Report ---
Indication: Cough Comparison: 02/23/2018 A single view chest radiograph was obtained. Findings: Heart is borderline enlarged. Bilateral pacemakers are present. Bones are osteopenic. Aorta is ectatic and mildly calcified. IMPRESSION: No acute disease
--- NOTE | 2018-03-04 12:52 | Pulmonology Progress Note ---
Assessment/Plan Problems: (1) Hip dislocation, right (2) Delirium (3) CAD (coronary artery disease) (4) HTN (hypertension) (5) Pacemaker (6) Diabetes mellitus, type II Assessment/Plan symptomatic treatment pain management ortho f/u sliding scale one episode of fever. Open reduction was done f/u by psychiatry dc home Subjective ROS Limited/Unobtainable: No Constitutional: Reports: no symptoms HEENT: Repors: no symptoms Respiratory: Reports: no symptoms Allergies: Coded Allergies: No Known Allergies (Unverified , 08/10/13) Objective Last 24 Hour Vital Signs Date Time Temp Pulse Resp B/P (MAP) Pulse Ox O2 Delivery O2 Flow Rate FiO2 03/04/18 12:00 97.5 86 20 98/44 (62) 95 97.5 03/04/18 09:06 80 122/60 03/04/18 09:06 122/60 03/04/18 09:00 Room Air 03/04/18 08:00 97.9 80 18 122/60 (80) 99 97.9 03/04/18 04:00 98.0 64 20 129/89 (102) 94 98.0 03/04/18 00:00 98.5 80 20 149/73 (98) 92 98.5 03/03/18 21:00 Room Air 03/03/18 20:00 99.3 112 20 142/90 (107) 92 99.3 03/03/18 17:48 51 123/59 (80) 95 51 03/03/18 16:00 97.5 90 22 125/66 (85) 98 97.5 Intake and Output 03/03/18 03/04/18 19:00 07:00 Intake Total 907.5 ml Balance 907.5 ml Intake Oral 240 ml IV Total 667.5 ml # Voids 2 4 General Appearance: WD/WN HEENT: normocephalic, atraumatic Respiratory/Chest: chest wall non-tender, lungs clear Cardiovascular: normal peripheral pulses, normal rate Abdomen: normal bowel sounds, soft, non tender Genitourinary: normal external genitalia Extremities: no cyanosis Skin: no rash 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 Microbiology Date/Time Source Procedure Growth Status 03/01/18 20:27 Hip Right Gram Stain - Final Resulted 03/01/18 20:27 Hip Right Aerobic Culture - Preliminary NO GROWTH AFTER 48 HOURS Resulted 03/01/18 20:27 Hip Right Anaerobic Culture - Preliminary NO GROWTH AFTER 48 HOURS Resulted Laboratory Tests 03/04/18 06:40: Sodium Level 139, Potassium Level 3.3L, Chloride Level 105, Carbon Dioxide Level 25, Anion Gap 9, Blood Urea Nitrogen 7, Creatinine 0.6, Estimat Glomerular Filtration Rate , Glucose Level 95, Calcium Level 8.3L 03/04/18 08:40: White Blood Count 5.4, Red Blood Count 3.22L, Hemoglobin 9.4L, Hematocrit 30.2L , Mean Corpuscular Volume 94, Mean Corpuscular Hemoglobin 29.2, Mean Corpuscular Hemoglobin Concent 31.1L, Red Cell Distribution Width 17.4H, Platelet Count 181, Mean Platelet Volume 7.1, Neutrophils (%) (Auto) 68.3, Lymphocytes (%) (Auto) 16.0L, Monocytes (%) (Auto) 14.0H, Eosinophils (%) (Auto ) 1.2, Basophils (%) (Auto) 0.6 03/04/18 08:54: Arterial Blood pH 7.443, Arterial Blood Partial Pressure CO2 38.4, Arterial Blood Partial Pressure O2 182.9H, Arterial Blood HCO3 25.7, Arterial Blood Oxygen Saturation 98.8, Arterial Blood Base Excess 1.5, Feroz Test Positive Current Medications Medications (Trade) Dose Ordered Sig/Yi Route PRN Reason Start Time Stop Time Status Last Admin Dose Admin Acetaminophen/ Hydrocodone Bitart ([place] 5/325) 1 tab Q6H PRN ORAL For Pain 03/03/18 17:45 03/07/18 17:44 Aspirin (Ecotrin) 81 mg DAILY ORAL 03/04/18 09:00 03/31/18 08:59 03/04/18 09:07 Famotidine (Pepcid) 20 mg DAILY ORAL 03/04/18 09:00 03/31/18 08:59 03/04/18 09:06 Furosemide (Lasix) 40 mg DAILY ORAL 03/04/18 09:00 03/31/18 08:59 03/04/18 09:05 Heparin Sodium (Porcine) (Heparin 5000 units/ml) 5,000 units EVERY 12 HOURS SUBQ 03/03/18 21:00 03/30/18 20:59 03/04/18 09:10 Imipramine HCl (Tofranil) 25 mg DAILY ORAL 03/04/18 09:00 03/31/18 08:59 03/04/18 09:08 Lorazepam (Ativan 2mg/ml 1ml) 1 mg ONCE IV 03/04/18 12:30 03/04/18 14:00 03/04/18 12:51 Lorazepam (Ativan 2mg/ml 1ml) 2 mg Q6H PRN IV For Anxiety 03/03/18 17:45 03/08/18 17:44 03/04/18 11:19 Losartan Potassium (Cozaar) 25 mg DAILY ORAL 03/04/18 09:00 03/31/18 08:59 03/04/18 09:06 Metoprolol Succinate (Toprol XL) 50 mg DAILY ORAL 03/04/18 09:00 03/31/18 11:46 03/04/18 09:06 Mirtazapine (Remeron) 7.5 mg BEDTIME ORAL 03/04/18 21:00 04/03/18 20:59 Potassium Chloride (K-Dur) 20 meq DAILY ORAL 03/05/18 09:00 04/04/18 08:59 Risperidone (RisperDAL) 1 mg DAILY ORAL 03/05/18 09:00 04/04/18 08:59 Rod Mancera MD Mar 04, 2018 12:52
--- NOTE | 2018-03-04 13:26 | Cardiology Report ---
APPROVED REPORT EKG Measurement Heart [id number] Normal sinus rhythm Left axis deviation Septal infarct, age undetermined Abnormal ECG
--- NOTE | 2018-03-04 18:30 | Internal Med Progress Note ---
Subjective Date of Service: Mar 04, 2018 Physician Name Aquilino Matthews Attending Physician Carlos Alberto Berkowitz MD Current Medications Medications (Trade) Dose Ordered Sig/Yi Route PRN Reason Start Time Stop Time Status Last Admin Dose Admin Acetaminophen/ Hydrocodone Bitart ([place] 5/325) 1 tab Q6H PRN ORAL For Pain 03/03/18 17:45 03/07/18 17:44 Aspirin (Ecotrin) 81 mg DAILY ORAL 03/04/18 09:00 03/31/18 08:59 03/04/18 09:07 Famotidine (Pepcid) 20 mg DAILY ORAL 03/04/18 09:00 03/31/18 08:59 03/04/18 09:06 Furosemide (Lasix) 40 mg DAILY ORAL 03/04/18 09:00 03/31/18 08:59 03/04/18 09:05 Heparin Sodium (Porcine) (Heparin 5000 units/ml) 5,000 units EVERY 12 HOURS SUBQ 03/03/18 21:00 03/30/18 20:59 03/04/18 09:10 Imipramine HCl (Tofranil) 25 mg DAILY ORAL 03/04/18 09:00 03/31/18 08:59 03/04/18 09:08 Lorazepam (Ativan 2mg/ml 1ml) 2 mg Q6H PRN IV For Anxiety 03/03/18 17:45 03/08/18 17:44 03/04/18 11:19 Losartan Potassium (Cozaar) 25 mg DAILY ORAL 03/04/18 09:00 03/31/18 08:59 03/04/18 09:06 Metoprolol Succinate (Toprol XL) 50 mg DAILY ORAL 03/04/18 09:00 03/31/18 11:46 03/04/18 09:06 Mirtazapine (Remeron) 7.5 mg BEDTIME ORAL 03/04/18 21:00 04/03/18 20:59 Potassium Chloride (K-Dur) 20 meq DAILY ORAL 03/05/18 09:00 04/04/18 08:59 Risperidone (RisperDAL) 1 mg DAILY ORAL 03/05/18 09:00 04/04/18 08:59 Allergies: Coded Allergies: No Known Allergies (Unverified , 08/10/13) ROS Limited/Unobtainable: No Constitutional: Reports: no symptoms HEENT: Reports: no symptoms Cardiovascular: Reports: no symptoms Respiratory: Reports: no symptoms Gastrointestinal/Abdominal: Reports: no symptoms Genitourinary: Reports: no symptoms Neurologic/Psychiatric: Reports: no symptoms Subjective 82 YO F admitted with dislocation of right hip hemiarthroplasty. S/P open reduction right hip hemiarthroplasty dislocation on 03/01/18. Cover for Int Aakash -Dr Berkowitz. Less agitated today. at bedside Objective Last Vital Signs Date Time Temp Pulse Resp B/P (MAP) Pulse Ox O2 Delivery O2 Flow Rate FiO2 03/04/18 16:00 98.5 85 16 111/55 (73) 96 98.5 03/04/18 09:00 Room Air 03/01/18 21:42 3 Laboratory Tests Test 03/04/18 06:40 03/04/18 08:40 03/04/18 08:54 Sodium Level 139 MMOL/L (136-145) Potassium Level 3.3 MMOL/L (3.5-5.1) L Chloride Level 105 MMOL/L (98-107) Carbon Dioxide Level 25 MMOL/L (21-32) Anion Gap 9 mmol/L (5-15) Blood Urea Nitrogen 7 mg/dL (7-18) Creatinine 0.6 MG/DL (0.55-1.30) Estimat Glomerular Filtration Rate mL/min (>60) Glucose Level 95 MG/DL (74-106) Calcium Level 8.3 MG/DL (8.5-10.1) L White Blood Count 5.4 K/UL (4.8-10.8) Red Blood Count 3.22 M/UL (4.20-5.40) L Hemoglobin 9.4 G/DL (12.0-16.0) L Hematocrit 30.2 % (37.0-47.0) L Mean Corpuscular Volume 94 FL (80-99) Mean Corpuscular Hemoglobin 29.2 PG (27.0-31.0) Mean Corpuscular Hemoglobin Concent 31.1 G/DL (32.0-36.0) L Red Cell Distribution Width 17.4 % (11.6-14.8) H Platelet Count 181 K/UL (150-450) Mean Platelet Volume 7.1 FL (6.5-10.1) Neutrophils (%) (Auto) 68.3 % (45.0-75.0) Lymphocytes (%) (Auto) 16.0 % (20.0-45.0) L Monocytes (%) (Auto) 14.0 % (1.0-10.0) H Eosinophils (%) (Auto) 1.2 % (0.0-3.0) Basophils (%) (Auto) 0.6 % (0.0-2.0) Arterial Blood pH 7.443 (7.350-7.450) Arterial Blood Partial Pressure CO2 38.4 mmHg (35.0-45.0) Arterial Blood Partial Pressure O2 182.9 mmHg (75.0-100.0) H Arterial Blood HCO3 25.7 mmol/L (22.0-26.0) Arterial Blood Oxygen Saturation 98.8 % (95-100) Arterial Blood Base Excess 1.5 (-2-2) Feroz Test Positive Microbiology Date/Time Source Procedure Growth Status 03/01/18 20:27 Hip Right Gram Stain - Final Resulted 03/01/18 20:27 Hip Right Aerobic Culture - Preliminary NO GROWTH AFTER 48 HOURS Resulted 03/01/18 20:27 Hip Right Anaerobic Culture - Preliminary NO GROWTH AFTER 48 HOURS Resulted Intake and Output 03/03/18 03/04/18 19:00 07:00 Intake Total 907.5 ml Balance 907.5 ml Intake Oral 240 ml IV Total 667.5 ml # Voids 2 4 Objective General Appearance: WD/WN, no apparent distress, alert EENT: PERRL/EOMI, normal ENT inspection Neck: non-tender, normal alignment, supple, normal inspection Cardiovascular: normal peripheral pulses, normal rate, regular rhythm, no gallop/murmur, no JVD Respiratory/Chest: chest wall non-tender, lungs clear, normal breath sounds, no respiratory distress, no accessory muscle use Abdomen: normal bowel sounds, non tender, soft, no organomegaly, no mass Extremities: normal range of motion, other - tender right hip 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, no motor/sensory deficits Skin: normal pigmentation, warm/dry Assessment/Plan Problem List: (1) Hypercholesterolemia (2) Aortic stenosis (3) Pulmonary hypertension (4) Alzheimer's dementia (5) Recurrent dislocation, right hip Assessment & Plan: S/P open reduction right hip hemiarthroplasty dislocation on 03/01/18-see ortho note (6) Fracture of superior pubic ramus (7) CAD (coronary artery disease) (8) Diabetes mellitus, type II (9) HTN (hypertension) Assessment & Plan: Continue cozaar (10) Sick sinus syndrome Status: progressing Assessment/Plan Discharge planning: [facility] Aquilino Cox MD Mar 04, 2018 18:30
[2018-03-05] MEDS: LORazepam Inj 2mg/ml 1ml IV PRN ×2 (00:13→11:31)
--- NOTE | 2018-03-05 02:30 | Progress Note ---
DATE: 03/04/2018 SUBJECTIVE: The patient continues to have episodes of agitation with yelling and screaming today, not following staff's direction. She is having anxiety. Her blood pressure was too low. We were not able to administer antianxiety medication until later. The patient at some point became combative. MENTAL STATUS EXAMINATION: The patient is alert and oriented times self, confused. Mood is agitated. Affect is flat. Thought process, there is paucity of thought content. Thought content, no suicidal or homicidal ideations. 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 PLAN: We will continue current medication. Provide the patient with supportive therapy and reality orientation. Lena Bob M.D. DR: Brigitte JOB#: [id number] CC:
[2018-03-05 04:00] VITALS: BP 144/66
[2018-03-05 08:00] VITALS: BP 125/74
[2018-03-05 08:03] LABS: BASOPHILS % (AUTO) 0.5 % (0.0-2.0); EOSINOPHILS % (AUTO) 2.7 % (0.0-3.0); HEMATOCRIT 26.3 % (37.0-47.0); HEMOGLOBIN 8.5 G/DL (12.0-16.0); LYMPHOCYTES % (AUTO) 27.9 % (20.0-45.0); MEAN CORPUSCULAR VOLUME 91 FL (80-99); MONOCYTES % (AUTO) 10.1 % (1.0-10.0); NEUTROPHILS % (AUTO) 58.8 % (45.0-75.0); PLATELET COUNT 308 K/UL (150-450); RED CELL DISTRIBUTION WIDTH 16.7 % (11.6-14.8); WHITE BLOOD COUNT 4.3 K/UL (4.8-10.8)
[2018-03-05 08:18] LABS: ANION GAP 8 mmol/L (5-15); BLOOD UREA NITROGEN 10 mg/dL (7-18); CALCIUM 8.7 MG/DL (8.5-10.1); CARBON DIOXIDE 27 MMOL/L (21-32); CHLORIDE 106 MMOL/L (98-107); CREATININE 0.7 MG/DL (0.55-1.30); POTASSIUM 3.6 MMOL/L (3.5-5.1); SODIUM 141 MMOL/L (136-145)
[2018-03-05] MEDS: Metoprolol Succinate XL 50mg tab ORAL SCH (09:16)
[2018-03-05] MEDS: Losartan 25mg tab ORAL SCH (09:16)
[2018-03-05] MEDS: Aspirin EC 81mg tab ORAL SCH (09:17)
[2018-03-05] MEDS: Furosemide 40mg tab ORAL SCH (09:17)
[2018-03-05] MEDS: Imipramine 10mg tab ORAL SCH (09:17)
[2018-03-05] MEDS: Heparin 5000 units/ml inj SUBQ SCH (09:21)
--- NOTE | 2018-03-05 11:07 | Discharge Summary ---
Discharge Summary Hospital Course Date of Admission Feb 28, 2018 at 15:37 Date of Discharge Admitting Diagnosis Prosthetic Hip Dislocation MINERVA Lafleur is a 82 year old female who was admitted on Feb 28, 2018 at 15 :37 for Prosthetic Hip Dislocation Hospital Course Job 3 [id number] Last 24 Hour Vital Signs Date Time Temp Pulse Resp B/P (MAP) Pulse Ox O2 Delivery O2 Flow Rate FiO2 03/05/18 09:16 79 125/74 03/05/18 09:16 125/74 03/05/18 09:14 Room Air 03/05/18 08:00 97.7 79 18 125/74 (91) 95 97.7 03/05/18 04:00 97.6 79 20 144/66 (92) 96 97.6 03/04/18 23:47 98.1 86 20 125/84 (98) 98 98.1 03/04/18 21:00 Room Air 03/04/18 20:00 99.6 99 20 121/56 (77) 100 99.6 03/04/18 16:00 98.5 85 16 111/55 (73) 96 98.5 03/04/18 12:00 97.5 86 20 98/44 (62) 95 97.5 Physical Exam General: No acute distress, awake and alert HEENT: NCAT, sclera anicteric, PERRL, EOMI. Neck: Supple, no significant jugular venous distention, Lungs: fair inspiratory effort, clear to auscultation bilaterally, no Wheeze or Rales. Heart: Regular rate and rhythm, normal S1/S2, + GEOVANNY @ LCW, PPM @ LCW. Abdomen: soft, nontender, nondistended. Normoactive bowel sounds. / Rectal: Refused and deferred. Extremities: No Cyanosis , clubbing or edema. Right hip surgical incision intact. Neuro: A&O x 3, Able to move all extremities Skin: warm, no rashes or lesions Psych: Normal mood and affect Discharge Discharge Disposition Patient was discharged to Carlos Alberto Berkowitz MD Mar 05, 2018 11:07
[2018-03-05 11:43] VITALS: BP 97/42
[2018-03-05] MEDS ORDERED: LORazepam Inj 2mg/ml 1ml IM SCH (11:45)
[2018-03-05] MEDS ORDERED: LORazepam 1mg tab ORAL PRN (11:45)
--- NOTE | 2018-03-05 13:32 | Pulmonology Progress Note ---
Assessment/Plan Problems: (1) Hip dislocation, right (2) Delirium (3) CAD (coronary artery disease) (4) HTN (hypertension) (5) Pacemaker (6) Diabetes mellitus, type II Assessment/Plan symptomatic treatment pain management ortho f/u sliding scale one episode of fever. Open reduction was done f/u by psychiatry dc to [facility] Subjective ROS Limited/Unobtainable: No Constitutional: Reports: no symptoms HEENT: Repors: no symptoms Respiratory: Reports: no symptoms Allergies: Coded Allergies: No Known Allergies (Unverified , 08/10/13) Objective Last 24 Hour Vital Signs Date Time Temp Pulse Resp B/P (MAP) Pulse Ox O2 Delivery O2 Flow Rate FiO2 03/05/18 11:43 98.2 83 18 97/42 (60) 95 98.2 03/05/18 09:16 79 125/74 03/05/18 09:16 125/74 03/05/18 09:14 Room Air 03/05/18 08:00 97.7 79 18 125/74 (91) 95 97.7 03/05/18 04:00 97.6 79 20 144/66 (92) 96 97.6 03/04/18 23:47 98.1 86 20 125/84 (98) 98 98.1 03/04/18 21:00 Room Air 03/04/18 20:00 99.6 99 20 121/56 (77) 100 99.6 03/04/18 16:00 98.5 85 16 111/55 (73) 96 98.5 Intake and Output 03/04/18 03/05/18 18:59 06:59 Intake Total 240 ml 60 ml Balance 240 ml 60 ml Intake Oral 240 ml 60 ml # Voids 5 3 General Appearance: WD/WN HEENT: normocephalic, anicteric Respiratory/Chest: lungs clear, no respiratory distress Breasts: no masses Cardiovascular: normal rate Abdomen: normal bowel sounds, soft, non tender Laboratory Tests 03/05/18 06:30: White Blood Count 4.3L, Red Blood Count 2.90L, Hemoglobin 8.5L, Hematocrit 26.3L , Mean Corpuscular Volume 91, Mean Corpuscular Hemoglobin 29.2, Mean Corpuscular Hemoglobin Concent 32.2, Red Cell Distribution Width 16.7H, Platelet Count 308#, Mean Platelet Volume 6.0L, Neutrophils (%) (Auto) 58.8, Lymphocytes (%) (Auto) 27.9, Monocytes (%) (Auto) 10.1H, Eosinophils (%) (Auto) 2.7, Basophils (%) (Auto) 0.5, Sodium Level 141, Potassium Level 3.6, Chloride Level 106, Carbon Dioxide Level 27, Anion Gap 8, Blood Urea Nitrogen 10, Creatinine 0.7, Estimat Glomerular Filtration Rate , Glucose Level 89, Calcium Level 8.7 Current Medications Medications (Trade) Dose Ordered Sig/Yi Route PRN Reason Start Time Stop Time Status Last Admin Dose Admin Acetaminophen/ Hydrocodone Bitart ([place] 5/325) 1 tab Q6H PRN ORAL For Pain 03/03/18 17:45 03/07/18 17:44 Aspirin (Ecotrin) 81 mg DAILY ORAL 03/04/18 09:00 03/31/18 08:59 03/05/18 09:17 Famotidine (Pepcid) 20 mg DAILY ORAL 03/04/18 09:00 03/31/18 08:59 03/05/18 09:16 Furosemide (Lasix) 40 mg DAILY ORAL 03/04/18 09:00 03/31/18 08:59 03/05/18 09:17 Heparin Sodium (Porcine) (Heparin 5000 units/ml) 5,000 units EVERY 12 HOURS SUBQ 03/03/18 21:00 03/30/18 20:59 03/05/18 09:21 Imipramine HCl (Tofranil) 25 mg DAILY ORAL 03/04/18 09:00 03/31/18 08:59 03/05/18 09:17 Lorazepam (Ativan) 2 mg Q6H PRN ORAL For Anxiety 03/05/18 11:45 03/12/18 11:44 Losartan Potassium (Cozaar) 25 mg DAILY ORAL 03/04/18 09:00 03/31/18 08:59 03/05/18 09:16 Metoprolol Succinate (Toprol XL) 50 mg DAILY ORAL 03/04/18 09:00 03/31/18 11:46 03/05/18 09:16 Mirtazapine (Remeron) 7.5 mg BEDTIME ORAL 03/04/18 21:00 04/03/18 20:59 03/04/18 20:57 Potassium Chloride (K-Dur) 20 meq DAILY ORAL 03/05/18 09:00 04/04/18 08:59 03/05/18 09:23 Risperidone (RisperDAL) 1 mg BID ORAL 03/05/18 18:00 04/04/18 17:59 Rod Mancera MD Mar 05, 2018 13:32
--- NOTE | 2018-03-05 21:40 | General Progress Note ---
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 .5mg tid ativan prn trazodone 50mg qhs ICD Codes: R41.0 - Disorientation, unspecified SNOMED: 0236123 (2) Psychosis ICD Codes: F29 - Unspecified psychosis not due to a substance or known physiological condition SNOMED: 59363796 (3) Hip dislocation, right ICD Codes: S73.004A - Unspecified dislocation of right hip, initial encounter SNOMED: 042297265 Status: stable Assessment/Plan risperdal 1mg bid ativan po prn Subjective Date patient seen: Mar 05, 2018 Neurologic/Psychiatric: Reports: anxiety, depressed, emotional problems Allergies: Coded Allergies: No Known Allergies (Unverified , 08/10/13) Subjective the pt cont to be confused and was agitated this am. the pt was given ativan again the pt is more agitated today Objective Last 24 Hour Vital Signs Date Time Temp Pulse Resp B/P (MAP) Pulse Ox O2 Delivery O2 Flow Rate FiO2 03/05/18 11:43 98.2 83 18 97/42 (60) 95 98.2 03/05/18 09:16 79 125/74 03/05/18 09:16 125/74 03/05/18 09:14 Room Air 03/05/18 08:00 97.7 79 18 125/74 (91) 95 97.7 03/05/18 04:00 97.6 79 20 144/66 (92) 96 97.6 03/04/18 23:47 98.1 86 20 125/84 (98) 98 98.1 Intake and Output 03/04/18 03/05/18 19:00 07:00 Intake Total 240 ml 60 ml Balance 240 ml 60 ml Intake Oral 240 ml 60 ml # Voids 5 3 Laboratory Tests 03/05/18 06:30: White Blood Count 4.3L, Red Blood Count 2.90L, Hemoglobin 8.5L, Hematocrit 26.3L , Mean Corpuscular Volume 91, Mean Corpuscular Hemoglobin 29.2, Mean Corpuscular Hemoglobin Concent 32.2, Red Cell Distribution Width 16.7H, Platelet Count 308#, Mean Platelet Volume 6.0L, Neutrophils (%) (Auto) 58.8, Lymphocytes (%) (Auto) 27.9, Monocytes (%) (Auto) 10.1H, Eosinophils (%) (Auto) 2.7, Basophils (%) (Auto) 0.5, Sodium Level 141, Potassium Level 3.6, Chloride Level 106, Carbon Dioxide Level 27, Anion Gap 8, Blood Urea Nitrogen 10, Creatinine 0.7, Estimat Glomerular Filtration Rate , Glucose Level 89, Calcium Level 8.7 Height (Feet): 5 Height (Inches): 3.00 Weight (Pounds): 136 General Appearance: alert, confused, moderate distress, agitated Lena Bob MD Mar 05, 2018 21:40
--- NOTE | 2018-03-06 03:45 | Discharge Summary ---
DATE OF ADMISSION: 02/28/2018 DATE OF DISCHARGE: 03/05/2018 HOSPITAL COURSE: This is an 82-year-old English-speaking female with past medical history significant for sick sinus syndrome, status post pacemaker; hypertension; diabetes type 2; history of recent right hip fracture, status post ORIF; dyslipidemia; coronary artery disease; hypertension; aortic stenosis; pulmonary hypertension; and Alzheimer dementia who presented to the hospital after she had complained about right hip pain. The patient was noted to have ORIF of the right hip on February 18, 2018 at [facility] due to the fracture. The patient tolerated the procedure well, discharged home and felt that the right hip became painful again, and upon arrival to the emergency room, x-ray confirmed the patient had dislocation of the right hip arthroplasty. The patient underwent a right hip revision by Dr. Shen Lopez on March 01, 2018, underwent open reduction of the right hip hemiarthroplasty dislocation. The patient tolerated the procedure well and subsequently was discharged to the senior living to be followed as outpatient. Throughout the hospital course, the patient was followed up with Dr. Shen Lopez from orthopedics, Dr. Rod Mancera from Pulmonary Critical Care, and Dr. Bob from Psychiatry. MEDICATIONS ON DISCHARGE: Continue discharge medication list. ACTIVITY: As tolerated. DIET: 1800-ADA cardiac diet. FINAL DIAGNOSES: 1. Dislocation of the right arthroplasty, hip. 2. Dyslipidemia. 3. Aortic stenosis. 4. Pulmonary hypertension. 5. Alzheimer dementia. 6. History of fracture of the superior pubic ramus. 7. Coronary artery disease. 8. Diabetes, type 2. 9. Hypertension. 10. Sick sinus syndrome, status post pacemaker. Carlos Alberto Berkowitz M.D. DR: CANDIE JOB#: [id number] CC:
== END 2018-03-05 14:55 | DRG 467 ==
LOC: EDBD 10:50 → EMR 11:09 → EDBEDREQ 12:34 → EDBEDREQSVC 12:36 → EDBEDREQ 13:28 → 2E 15:37 → 4E 03-03 17:14
PROC: 0SW90JZ Revision of Synthetic Substitute in Right Hip Joint, Open Approach (ICD-10-PCS; principal; 2018-03-01 19:30)
DX: T84.020A Dislocation of internal right hip prosthesis, initial encounter (principal); S32.512A Fracture of superior rim of left pubis, initial encounter for closed fracture; G93.40 Encephalopathy, unspecified; F02.81 Dementia in other diseases classified elsewhere, unspecified severity, with behavioral disturbance; W06.XXXA Fall from bed, initial encounter; Y92.003 Bedroom of unspecified non-institutional (private) residence as the place of occurrence of the external cause; I35.0 Nonrheumatic aortic (valve) stenosis; I27.20 Pulmonary hypertension, unspecified; G30.9 Alzheimer's disease, unspecified; F02.80 Dementia in other diseases classified elsewhere, unspecified severity, without behavioral disturbance, psychotic disturbance, mood disturbance, and anxiety; E11.9 Type 2 diabetes mellitus without complications; I25.10 Atherosclerotic heart disease of native coronary artery without angina pectoris; I25.2 Old myocardial infarction; Z95.0 Presence of cardiac pacemaker; E78.5 Hyperlipidemia, unspecified; Z86.718 Personal history of other venous thrombosis and embolism; F29 Unspecified psychosis not due to a substance or known physiological condition; Z79.82 Long term (current) use of aspirin
CPT/HCPCS: 36415; 36600; 71045; 72170; 76001; 80048; 80053; 82803; 83735; 84100; 85025; 85610; 85730; 87070; 87075; 87081; 87205; 93005; 94003; 94150; 96374; 96375; 99285; J2370; J2405; J2765; J8499

== ENCOUNTER 2018-04-02 12:26 | Inpatient (IN) | payer MEDICARE, OTHER ==
[~2018-04-02] VITALS: Ht 165.1 cm; Wt 67.1 kg
[~2018-04-02 12:26] MED LIST changes: +ATENOLOL50 MG ORAL; +TOFRANIL50 MG ORAL
[2018-04-02] MEDS ORDERED: NS 1000ml 1,400 ML IVLG ONE (12:45)
[2018-04-02 13:37] LABS: APPEARANCE,URINE SLIGHTLY CLOUDY; BASOPHILS % (AUTO) 0.2 % (0.0-2.0); BILIRUBIN, URINE 1+ (NEGATIVE); COLOR,URINE BROWN; EOSINOPHILS % (AUTO) 0.4 % (0.0-3.0); GLUCOSE, URINE (UA) NEGATIVE (NEGATIVE); HEMOGLOBIN 9.1 G/DL (12.0-16.0); KETONES,URINE 2+ (NEGATIVE); LEUKOCYTE ESTERASE ,URINE 1+ (NEGATIVE); LYMPHOCYTES % (AUTO) 18.7 % (20.0-45.0); MEAN CORPUSCULAR VOLUME 86 FL (80-99); MONOCYTES % (AUTO) 7.1 % (1.0-10.0); NEUTROPHILS % (AUTO) 73.6 % (45.0-75.0); NITRITE,URINE NEGATIVE (NEGATIVE); PH,URINE 5 (4.5-8.0); PLATELET COUNT 574 K/UL (150-450); PROTEIN,URINE 2+ (NEGATIVE); RED CELL DISTRIBUTION WIDTH 16.4 % (11.6-14.8); UROBILINOGEN,URINE 4 MG/DL (0.0-1.0); WHITE BLOOD COUNT 6.6 K/UL (4.8-10.8)
[2018-04-02 13:42] VITALS: BP 117/92
[2018-04-02 13:52] LABS: ANION GAP 9 mmol/L (5-15); BLOOD UREA NITROGEN 13 mg/dL (7-18); CALCIUM 8.6 MG/DL (8.5-10.1); CARBON DIOXIDE 24 MMOL/L (21-32); CHLORIDE 109 MMOL/L (98-107); CREATININE 0.7 MG/DL (0.55-1.30); POTASSIUM 3.7 MMOL/L (3.5-5.1); SODIUM 142 MMOL/L (136-145)
--- NOTE | 2018-04-02 13:54 | Diagnostic Imaging Report ---
Indications: Altered mental status Technique: Spiral acquisitions obtained through the brain. Angled axial and coronal 5 x 5 mm slices were reconstructed. Total dose length product 1372.57 mGycm. CTDI vol(s) 70.38 mGy. Dose reduction achieved using automated exposure control Comparison: None. Findings: There is age-related enlargement of the ventricles and extra axial CSF spaces. There is periventricular deep white matter low-attenuation consistent with chronic ischemic change. No acute intercranial hemorrhage nor edema. No mass effect nor midline shift. The calvarium is intact. Visualized orbits and sinuses are unremarkable. The mastoids are clear. Impression: Chronic and age-related changes, as described. Negative for acute intracranial bleed or mass effect The CT scanner at [facility] is accredited by the [employer] and the scans are performed using protocols designed to limit radiation exposure to as low as reasonably achievable to attain images of sufficient resolution adequate for diagnostic evaluation.
[2018-04-02 14:06] LABS: ALANINE AMINOTRANSFERASE 18 U/L (12-78); ALBUMIN 2.4 G/DL (3.4-5.0); ALBUMIN/GLOBULIN RATIO 0.5 (1.0-2.7); ALKALINE PHOSPHATASE 105 U/L (46-116); ASPARTATE AMINO TRANSFERASE 19 U/L (15-37); BILIRUBIN,TOTAL 0.6 MG/DL (0.2-1.0); CKMB 1.8 NG/ML (0.0-3.6); CREATINE KINASE 354 U/L (26-308)
--- NOTE | 2018-04-02 14:45 | Diagnostic Imaging Report ---
Indication: Shortness of breath Technique: One view of the chest Comparison: 03/04/2018 Findings: Interim development of bilateral pleural effusions. There is questionable mild interstitial congestive change. The heart is borderline enlarged. Bilateral pacemakers are again demonstrated Impression: Bilateral pleural effusions, developing since prior study 03/04/2018 Questionable mild interstitial edema Cardiomegaly
[2018-04-02] MEDS ORDERED: LORazepam Inj 2mg/ml 1ml IV ONE (15:45)
--- NOTE | 2018-04-02 15:50 | Emergency Room Report ---
History of Present Illness General Chief Complaint: Generalized Weakness Source: Medical Record Present Illness Allergies: Coded Allergies: No Known Allergies (Unverified , 08/10/13) Nursing Documentation-[facility] Past Medical History: No History, Except For Hx Cardiac Problems: Yes Hx Hypertension: Yes Hx Pacemaker: Yes - left chest pacemaker Hx Asthma: Yes Hx Diabetes: Yes Hx Cancer: No Hx Gastrointestinal Problems: No Hx Neurological Problems: Yes Hx Dementia: Yes Physical Exam Vital Signs Date Time Temp Pulse Resp B/P (MAP) Pulse Ox O2 Delivery O2 Flow Rate FiO2 04/02/18 12:29 98.1 91 14 155/69 98 Room Air 04/02/18 13:42 98 Medical Decision Making Diagnostic Impression: Primary Impression: Failure to thrive Additional Impression: Gravely disabled Laboratory Tests Test 04/02/18 13:15 White Blood Count 6.6 K/UL (4.8-10.8) Red Blood Count 3.50 M/UL (4.20-5.40) L Hemoglobin 9.1 G/DL (12.0-16.0) L Hematocrit 30.0 % (37.0-47.0) L Mean Corpuscular Volume 86 FL (80-99) Mean Corpuscular Hemoglobin 26.1 PG (27.0-31.0) L Mean Corpuscular Hemoglobin Concent 30.5 G/DL (32.0-36.0) L Red Cell Distribution Width 16.4 % (11.6-14.8) H Platelet Count 574 K/UL (150-450) H Mean Platelet Volume 6.6 FL (6.5-10.1) Neutrophils (%) (Auto) 73.6 % (45.0-75.0) Lymphocytes (%) (Auto) 18.7 % (20.0-45.0) L Monocytes (%) (Auto) 7.1 % (1.0-10.0) Eosinophils (%) (Auto) 0.4 % (0.0-3.0) Basophils (%) (Auto) 0.2 % (0.0-2.0) Urine Color Brown Urine Appearance Slightly cloudy Urine pH 5 (4.5-8.0) Urine Specific Collins 1.020 (1.005-1.035) Urine Protein 2+ (NEGATIVE) H Urine Glucose (UA) Negative (NEGATIVE) Urine Ketones 2+ (NEGATIVE) H Urine Blood Negative (NEGATIVE) Urine Nitrite Negative (NEGATIVE) Urine Bilirubin 1+ (NEGATIVE) H Urine Ictotest Negative (NEGATIVE) Urine Urobilinogen 4 MG/DL (0.0-1.0) H Urine Leukocyte Esterase 1+ (NEGATIVE) H Urine RBC 0 /HPF (0 - 2) Urine WBC 0-2 /HPF (0 - 2) Urine Squamous Epithelial Cells Few /LPF (NONE/OCC) Urine Bacteria Occasional /HPF (NONE) Sodium Level 142 MMOL/L (136-145) Potassium Level 3.7 MMOL/L (3.5-5.1) Chloride Level 109 MMOL/L (98-107) H Carbon Dioxide Level 24 MMOL/L (21-32) Anion Gap 9 mmol/L (5-15) Blood Urea Nitrogen 13 mg/dL (7-18) Creatinine 0.7 MG/DL (0.55-1.30) Estimate Glomerular Filtration Rate mL/min (>60) Glucose Level 86 MG/DL (74-106) Lactic Acid Level 1.10 mmol/L (0.4-2.0) Calcium Level 8.6 MG/DL (8.5-10.1) Total Bilirubin 0.6 MG/DL (0.2-1.0) Aspartate Amino Transferase (AST) 19 U/L (15-37) Alanine Aminotransferase (ALT) 18 U/L (12-78) Alkaline Phosphatase 105 U/L (46-116) Total Creatine Kinase 354 U/L (26-308) H Creatine Kinase MB 1.8 NG/ML (0.0-3.6) Creatine Kinase MB Relative Index 0.5 Troponin I 0.042 ng/mL (0.000-0.056) Total Protein 6.8 G/DL (6.4-8.2) Albumin 2.4 G/DL (3.4-5.0) L Globulin 4.4 g/dL Albumin/Globulin Ratio 0.5 (1.0-2.7) L EKG Diagnostic Results Rate: normal Rhythm: NSR ST Segments: no acute changes Rhythm Strip Diag. Results EP Interpretation: yes Rate: 70 Rhythm: NSR, no PVC's, no ectopy Chest X-Ray Diagnostic Results Chest X-Ray Diagnostic Results : Chest X-Ray Ordered: Yes # of Views/Limited/Complete: 1 View Indication: Other Impression: Other - Impression: Bilateral pleural effusions, developing since prior study 03/04/2018 Electronically Signed by: Norma CT/MRI/US Diagnostic Results CT/MRI/US Diagnostic Results : Imaging Test Ordered: CT head Impression No acute findings. Specifically no intracranial bleed, mass effect or edema. See official report. Last Vital Signs Date Time Temp Pulse Resp B/P (MAP) Pulse Ox O2 Delivery O2 Flow Rate FiO2 04/02/18 13:42 77 17 Room Air 98 04/02/18 13:42 98.1 117/92 98 Disposition: ADMITTED INPATIENT Condition: Serious Referrals: NOT CHOSEN IPA/,REFERRING (PCP) Anne Marie Rivera DO Apr 02, 2018 15:50
[2018-04-02 16:52] VITALS: BP 151/88
[2018-04-02] MEDS ORDERED: Norco 5mg/325mg tab ORAL PRN (17:30)
--- NOTE | 2018-04-02 18:58 | History & Physical ---
History and Physical History & Physicial Dictated for Int Med-dr Berkowitz no. [id number]. Aquilino Matthews MD Apr 02, 2018 18:58
[2018-04-02] MEDS: Dicyclomine 10mg Cap ORAL SCH ×2 (19:12→20:32)
[2018-04-02 20:00] VITALS: BP 159/97
[2018-04-02] MEDS: TraZODone 50mg tab ORAL SCH (20:32)
[2018-04-02] MEDS: Heparin 5000 units/ml inj SUBQ SCH (21:33)
--- NOTE | 2018-04-02 22:30 | History and Physical Report ---
DATE OF ADMISSION: 04/02/2018 CHIEF COMPLAINT: The patient is an 82-year-old Green[place]ic-speaking female who presents with chief complaint of generalized weakness. HISTORY OF PRESENT ILLNESS: The patient was admitted to [facility] from 02/28/2018 to 03/05/2018. The patient is status post open reduction and internal fixation and right hip hemiarthroplasty on 03/01/2018. The patient is status post open reduction and internal fixation of the right hip on 02/18/2018. The patient had dislocation on 02/28/2018. The patient underwent open reduction of right hip hemiarthroplasty dislocation on 03/01/2018. The patient was discharged home with home health. The patient has been noted to have increasing weakness at home. The patient has not been able to ambulate. The patient presented to [place] emergency room. The patient is admitted for generalized weakness. REVIEW OF SYSTEMS: Unable to assess secondary to the patient's mental status. PAST MEDICAL HISTORY: Significant for: 1. Right hip fracture on 02/16/2018 as above, status post right hip hemiarthroplasty on 02/18/2018. 2. Dislocation of right hip arthroplasty and subsequent reduction of dislocation on 03/01/2018 as above. 3. Diabetes type 2. 4. Hypertension. 5. Sick sinus syndrome. 6. Hypercholesterolemia. 7. Coronary artery disease, status post non-ST elevated myocardial infarction. 8. Hypertension. 9. Aortic stenosis. 10. Pulmonary hypertension. 11. Alzheimer dementia. PAST SURGICAL HISTORY: Significant for: 1. Reduction of right hip hemiarthroplasty dislocation on 03/01/2018. 2. Right hip hemiarthroplasty on 02/18/2018. 3. Coronary artery bypass graft in 2016. 4. Pacemaker generator change in 2016. 5. Elbow debridement. 6. Pacemaker implantation in 2013. CURRENT MEDICATIONS: 1. Aspirin 81 mg p.o. daily. 2. Atenolol 50 mg p.o. twice daily. 3. Klonopin 0.5 mg p.o. q.6 h. p.r.n. 4. Clonidine 0.1 mg p.o. q.8 h. 5. Clopidogrel 75 mg p.o. daily. 6. Bentyl 10 mg p.o. four times daily. 7. Pepcid 20 mg p.o. at bedtime. 8. Lasix 40 mg p.o. daily. 9. [place] 5/325 one tablet p.o. q.6 h. p.r.n. 10. Losartan 25 mg p.o. daily. 11. Potassium chloride 10 mEq p.o. daily. 12. Crestor 10 mg p.o. daily. 13. Sitagliptin/metformin one tablet p.o. daily. 14. Trazodone 50 mg p.o. at bedtime. 15. Vitamin D 5000 units p.o. daily. ALLERGIES: No known drug allergies. SOCIAL HISTORY: The patient is and lives with her . The patient denies tobacco or alcohol use. PHYSICAL EXAMINATION: VITAL SIGNS: Temperature 98.1, respirations 14, blood pressure 155/69, and pulse 91. GENERAL: The patient is a well-developed and well-nourished thin-appearing white female, in no apparent distress. HEENT: Eyes, pupils equal responsive to light and accommodation. Extraocular movements are intact. NECK: Supple. No lymphadenopathy. CHEST: Lungs are clear to auscultation bilaterally without wheezes or rales. CARDIOVASCULAR: Regular rhythm and rate. S1 and S2 are normal without murmurs, rubs, or gallops. ABDOMEN: Soft, nontender, and nondistended. Positive bowel sounds. No evidence of hepatosplenomegaly. Currently, no rebounding or guarding noted. EXTREMITIES: Negative for clubbing, cyanosis, or edema. RECTAL/GENITAL: Not performed. NEUROLOGIC: Cranial nerves II through XII are grossly intact without focal deficits. Motor strength is 5/5 bilaterally. Motor strength is 3/5 bilaterally. Deep tendon reflexes are 2+ plantar. LABORATORY STUDIES: WBC 6.6, hemoglobin 9.1, hematocrit 30.0, and platelets 535,000. Sodium 142, potassium 3.7, chloride 109, CO2 24, BUN 13, creatinine 0.7, glucose 86, and troponin 0.042. ASSESSMENT: This is an 82-year-old white female. 1. Generalized weakness. 2. Failure to thrive. 3. Coronary artery disease. 4. Diabetes, type 2. 5. Hypertension. 6. Sick sinus syndrome. 7. Hypercholesterolemia. 8. Aortic stenosis. 9. Pulmonary hypertension. 10. Alzheimer dementia. TREATMENT: 1. Generalized weakness/failure to thrive. A physical therapy consultation has been obtained. We will follow recommendation of physical therapy. The patient may have decreased condition secondary to previous surgeries. 2. Coronary artery disease. The patient is status post coronary artery bypass graft in 2017. 3. Diabetes, type 2. The patient has been started on NovoLog sliding scale. Januvia and metformin have been discontinued, as the patient is not tolerating p.o. well. 4. Hypertension. The patient is to continue on atenolol and losartan as above. 5. Sick sinus syndrome. The patient is status post pacemaker implantation. 6. Hypercholesterolemia. Continue simvastatin as above. 7. Aortic stenosis. 8. Pulmonary hypertension. 9. Alzheimer dementia. Aquilino Matthews M.D. DR: SADIE JOB#: [id number] CC:
[2018-04-03] VITALS (7 sets, daily range): BP systolic 146–158; BP diastolic 63–96
[2018-04-03] MEDS: sitaGLIPtin 50mg tab ORAL SCH (05:51)
[2018-04-03] MEDS: Heparin 5000 units/ml inj SUBQ SCH ×3 (05:55→21:13)
[2018-04-03 06:24] LABS: HEMATOCRIT 25.6 % (37.0-47.0); HEMOGLOBIN 7.8 G/DL (12.0-16.0); MEAN CORPUSCULAR VOLUME 86 FL (80-99); PLATELET COUNT 510 K/UL (150-450); RED BLOOD COUNT 2.99 M/UL (4.20-5.40); RED CELL DISTRIBUTION WIDTH 16.9 % (11.6-14.8); WHITE BLOOD COUNT 5.8 K/UL (4.8-10.8)
[2018-04-03 06:41] LABS: ALANINE AMINOTRANSFERASE 14 U/L (12-78); ALBUMIN/GLOBULIN RATIO 0.5 (1.0-2.7); ALKALINE PHOSPHATASE 90 U/L (46-116); ANION GAP 11 mmol/L (5-15); ASPARTATE AMINO TRANSFERASE 14 U/L (15-37); BILIRUBIN,TOTAL 0.5 MG/DL (0.2-1.0); BLOOD UREA NITROGEN 10 mg/dL (7-18); CARBON DIOXIDE 22 MMOL/L (21-32); CHLORIDE 111 MMOL/L (98-107); CREATININE 0.7 MG/DL (0.55-1.30); PHOSPHORUS 2.8 MG/DL (2.5-4.9); POTASSIUM 3.5 MMOL/L (3.5-5.1); SODIUM 144 MMOL/L (136-145)
[2018-04-03] MEDS: Aspirin Baby 81mg ORAL SCH (08:42)
[2018-04-03] MEDS: Dicyclomine 10mg Cap ORAL SCH ×4 (08:43→20:31)
[2018-04-03] MEDS: Furosemide 40mg tab ORAL SCH (08:45)
[2018-04-03] MEDS: metFORMIN 500mg tab ORAL SCH ×2 (08:45→18:00)
[2018-04-03] MEDS: Vitamin D 1000 IU Tab ORAL SCH (08:46)
[2018-04-03] MEDS ORDERED: Losartan 25mg tab ORAL SCH (09:00)
--- NOTE | 2018-04-03 17:00 | Internal Med Progress Note ---
Subjective Date of Service: Apr 03, 2018 Physician Name Aquilino Matthews Attending Physician Carlos Alberto Berkowitz MD Current Medications Medications (Trade) Dose Ordered Sig/Yi Route PRN Reason Start Time Stop Time Status Last Admin Dose Admin Acetaminophen (Tylenol) 650 mg Q6H PRN ORAL Mild Pain/Temp > 100.5 04/02/18 17:15 05/02/18 17:14 Acetaminophen/ Hydrocodone Bitart ([place] 5/325) 1 tab Q6H PRN ORAL Severe Pain (Pain Scale 7-10) 04/02/18 20:30 04/09/18 20:29 Aspirin (ASA) 81 mg DAILY ORAL 04/03/18 09:00 05/03/18 08:59 04/03/18 08:42 Atenolol (Tenormin) 50 mg Q12HR ORAL 04/02/18 21:00 05/02/18 20:59 04/03/18 08:46 Atorvastatin Calcium (Lipitor) 20 mg BEDTIME ORAL 04/03/18 21:00 05/03/18 20:59 Clonazepam (KlonoPIN) 0.5 mg Q6H PRN ORAL For Anxiety 04/02/18 17:30 04/09/18 17:29 Clonidine HCl (Catapres Tab) 0.1 mg EVERY 8 HOURS ORAL 04/02/18 22:00 05/02/18 21:59 04/03/18 13:46 Clopidogrel Bisulfate (Plavix) 75 mg DAILY ORAL 04/03/18 09:00 05/03/18 08:59 04/03/18 08:45 Dicyclomine HCl (Bentyl) 10 mg QID ORAL 04/02/18 18:00 05/02/18 17:59 04/03/18 13:46 Furosemide (Lasix) 40 mg DAILY ORAL 04/03/18 09:00 05/03/18 08:59 04/03/18 08:45 Heparin Sodium (Porcine) (Heparin 5000 units/ml) 5,000 units EVERY 8 HOURS SUBQ 04/02/18 22:00 05/02/18 21:59 04/03/18 13:45 Losartan Potassium (Cozaar) 25 mg DAILY ORAL 04/03/18 09:00 05/03/18 08:59 04/03/18 08:44 Metformin HCl (Glucophage) 500 mg BID ORAL 04/03/18 09:00 05/03/18 08:59 04/03/18 08:45 Potassium Chloride (K-Dur) 10 meq DAILY ORAL 04/03/18 09:00 05/03/18 08:59 04/03/18 08:45 Sitagliptin Phosphate (Januvia) 50 mg ACBREAKFAST ORAL 04/03/18 06:30 05/03/18 06:29 04/03/18 05:51 Trazodone HCl (Desyrel) 50 mg BEDTIME ORAL 04/02/18 21:00 05/02/18 20:59 04/02/18 20:32 Vitamin D (Vitamin D) 5,000 intlu DAILY ORAL 04/03/18 09:00 05/03/18 08:59 04/03/18 08:46 Allergies: Coded Allergies: No Known Allergies (Unverified , 08/10/13) ROS Limited/Unobtainable: Yes Subjective 82 YO F admitted with generalized weakness. Cover for Int Med-Dr Berkowitz. Objective Last Vital Signs Date Time Temp Pulse Resp B/P (MAP) Pulse Ox O2 Delivery O2 Flow Rate FiO2 04/03/18 13:46 154/82 04/03/18 12:09 65 18 99 04/03/18 09:00 Room Air Room Air 04/03/18 08:00 97.9 04/02/18 18:13 98 General Appearance: WD/WN, mild distress, agitated EENT: PERRL/EOMI, normal ENT inspection Neck: non-tender, normal alignment, supple, normal inspection Cardiovascular: normal peripheral pulses, normal rate, regular rhythm, no gallop/murmur, no JVD Respiratory/Chest: chest wall non-tender, lungs clear, normal breath sounds, no accessory muscle use, respiratory distress Abdomen: normal bowel sounds, non tender, soft, no organomegaly, no mass Extremities: normal range of motion Neurologic: university intern II-XII grossly normal Skin: normal pigmentation, warm/dry Laboratory Tests Test 04/03/18 05:40 White Blood Count 5.8 K/UL (4.8-10.8) Red Blood Count 2.99 M/UL (4.20-5.40) L Hemoglobin 7.8 G/DL (12.0-16.0) L Hematocrit 25.6 % (37.0-47.0) L Mean Corpuscular Volume 86 FL (80-99) Mean Corpuscular Hemoglobin 25.9 PG (27.0-31.0) L Mean Corpuscular Hemoglobin Concent 30.3 G/DL (32.0-36.0) L Red Cell Distribution Width 16.9 % (11.6-14.8) H Platelet Count 510 K/UL (150-450) H Mean Platelet Volume 6.9 FL (6.5-10.1) Neutrophils (%) (Auto) % (45.0-75.0) Lymphocytes (%) (Auto) % (20.0-45.0) Monocytes (%) (Auto) % (1.0-10.0) Eosinophils (%) (Auto) % (0.0-3.0) Basophils (%) (Auto) % (0.0-2.0) Differential Total Cells Counted 100 Neutrophils % (Manual) 68 % (45-75) Lymphocytes % (Manual) 27 % (20-45) Monocytes % (Manual) 5 % (1-10) Eosinophils % (Manual) 0 % (0-3) Basophils % (Manual) 0 % (0-2) Band Neutrophils 0 % (0-8) Platelet Estimate Increased H Platelet Morphology Normal Polychromasia Occasional Hypochromasia 2+ Anisocytosis 1+ Ovalocytes 1+ Sodium Level 144 MMOL/L (136-145) Potassium Level 3.5 MMOL/L (3.5-5.1) Chloride Level 111 MMOL/L (98-107) H Carbon Dioxide Level 22 MMOL/L (21-32) Anion Gap 11 mmol/L (5-15) Blood Urea Nitrogen 10 mg/dL (7-18) Creatinine 0.7 MG/DL (0.55-1.30) Estimat Glomerular Filtration Rate mL/min (>60) Glucose Level 72 MG/DL (74-106) L Calcium Level 8.0 MG/DL (8.5-10.1) L Phosphorus Level 2.8 MG/DL (2.5-4.9) Magnesium Level 1.6 MG/DL (1.8-2.4) L Total Bilirubin 0.5 MG/DL (0.2-1.0) Aspartate Amino Transf (AST/SGOT) 14 U/L (15-37) L Alanine Aminotransferase (ALT/SGPT) 14 U/L (12-78) Alkaline Phosphatase 90 U/L (46-116) Total Protein 5.8 G/DL (6.4-8.2) L Albumin 2.0 G/DL (3.4-5.0) L Globulin 3.8 g/dL Albumin/Globulin Ratio 0.5 (1.0-2.7) L Intake and Output 04/02/18 04/03/18 19:00 07:00 Intake Total 350 ml Output Total 2 ml Balance 348 ml Intake Oral 350 ml Output Urine Total 2 ml # Voids 1 Assessment/Plan Problem List: (1) Generalized weakness Assessment & Plan: ?deconditioning due to recent hip surgery? Await PT/OT eval (2) Diabetes mellitus, type II Assessment & Plan: Continue metformin and januvia (3) HTN (hypertension) Assessment & Plan: continue atenolol and cozaar (4) Sick sinus syndrome Assessment & Plan: S/P pacemaker (5) Aortic stenosis (6) Pulmonary hypertension (7) Alzheimer's dementia (8) Hypercholesterolemia Status: not improved Aquilino Matthews MD Apr 03, 2018 17:00
[2018-04-03] MEDS: Atorvastatin 20mg tab ORAL SCH (20:31)
[2018-04-03] MEDS: TraZODone 50mg tab ORAL SCH (20:31)
--- NOTE | 2018-04-03 22:43 | Consultation ---
History of Present Illness General Date patient seen: Apr 02, 2018 Chief Complaint: Generalized Weakness Present Illness HPI 82-year-old Lebanese-speaking female who presents with chief complaint of generalized weakness. the pt has hx of anxiety and depression . the pt has memory impairment and pw depressed mood and low energy. the pt is a poor historian and is confused. the pt has been agitated and given ativan Allergies: Coded Allergies: No Known Allergies (Unverified , 08/10/13) Medication History Scheduled Aspirin (Aspirin EC), 81 MG ORAL DAILY, (Reported) Atenolol* (Tenormin*), 50 MG ORAL BID, (Reported) Clonazepam* (Klonopin*), 0.5 MG ORAL Q6H, (Reported) Clonidine Hcl* (Catapres*), 0.1 MG ORAL EVERY 8 HOURS, (Reported) Clopidogrel* (Clopidogrel*), 75 MG ORAL DAILY, (Reported) Dicyclomine Hcl* (Dicyclomine Hcl*), 10 MG PO QID Famotidine (Pepcid), 20 MG ORAL BEDTIME Furosemide* (Lasix*), 40 MG ORAL DAILY, (Reported) Losartan Potassium* (Losartan Potassium*), 25 MG ORAL DAILY, (Reported) Potassium Chloride (Potassium Chloride), 10 MEQ ORAL DAILY, (Reported) Rosuvastatin Calcium* (Crestor*), 10 MG ORAL DAILY, (Reported) Sitagliptin Phos/Metformin Hcl (Janumet Xr 50-1,000 Mg Tablet), 1 TAB ORAL DAILY , (Reported) Trazodone* (Trazodone*), 50 MG ORAL BEDTIME, (Reported) Vitamin D (Vitamin D3), 5,000 UNITS ORAL DAILY, (Reported) Scheduled PRN Hydrocodone Bit/Acetaminophen 5-325* ([place] 5-325*), 1 TAB ORAL Q6H PRN for For Pain Patient History Limited by: medical condition History Provided By: Patient, Medical Record Healthcare decision maker Resuscitation status Full Code Advanced Directive on File No Past Medical/Surgical History Past Medical/Surgical History: (1) Recurrent dislocation, right hip (2) Fracture of superior pubic ramus (3) Gravely disabled (4) Failure to thrive (5) Pulmonary hypertension (6) Aortic stenosis (7) Generalized weakness (8) Hypercholesteremia (9) Hypercholesterolemia (10) Alzheimer's dementia (11) Delirium (12) Acute on chronic systolic CHF (congestive heart failure) (13) Colitis (14) Diabetes mellitus, type II (15) Closed fracture of symphysis pubis (16) Psychosis (17) DVT of left axillary vein, acute (18) Sick sinus syndrome (19) CAD (coronary artery disease) (20) HTN (hypertension) (21) Pacemaker (22) Fracture of femoral neck, right, closed (23) Hip fracture requiring operative repair (24) UTI (urinary tract infection) (25) E coli infection Review of Systems Psychiatric: Reports: prior hx, anxiety, depressed feelings Physical Exam General Appearance: alert, confused, moderate distress, agitated Last 24 Hour Vital Signs Date Time Temp Pulse Resp B/P (MAP) Pulse Ox O2 Delivery O2 Flow Rate FiO2 04/03/18 21:09 148/71 04/03/18 21:00 Room Air Room Air 04/03/18 20:31 69 149/74 04/03/18 20:00 97.9 69 20 149/74 (99) 99 04/03/18 16:00 97.6 66 18 146/63 (90) 100 04/03/18 13:46 154/82 04/03/18 12:09 65 18 156/89 (111) 99 04/03/18 09:00 Room Air Room Air 04/03/18 08:46 80 149/80 04/03/18 08:45 88 149/80 (103) 04/03/18 08:44 149/80 04/03/18 08:00 97.9 77 16 148/75 (99) 97 04/03/18 05:51 151/83 04/03/18 04:00 97.8 74 20 151/83 (105) 93 04/03/18 00:00 97.6 80 20 158/96 (116) 95 Intake and Output 04/02/18 04/03/18 18:59 06:59 Intake Total 350 ml Output Total 2 ml Balance 348 ml Intake Oral 350 ml Output Urine Total 2 ml # Voids 1 Laboratory Tests Test 04/03/18 05:40 White Blood Count 5.8 K/UL (4.8-10.8) Red Blood Count 2.99 M/UL (4.20-5.40) L Hemoglobin 7.8 G/DL (12.0-16.0) L Hematocrit 25.6 % (37.0-47.0) L Mean Corpuscular Volume 86 FL (80-99) Mean Corpuscular Hemoglobin 25.9 PG (27.0-31.0) L Mean Corpuscular Hemoglobin Concent 30.3 G/DL (32.0-36.0) L Red Cell Distribution Width 16.9 % (11.6-14.8) H Platelet Count 510 K/UL (150-450) H Mean Platelet Volume 6.9 FL (6.5-10.1) Neutrophils (%) (Auto) % (45.0-75.0) Lymphocytes (%) (Auto) % (20.0-45.0) Monocytes (%) (Auto) % (1.0-10.0) Eosinophils (%) (Auto) % (0.0-3.0) Basophils (%) (Auto) % (0.0-2.0) Differential Total Cells Counted 100 Neutrophils % (Manual) 68 % (45-75) Lymphocytes % (Manual) 27 % (20-45) Monocytes % (Manual) 5 % (1-10) Eosinophils % (Manual) 0 % (0-3) Basophils % (Manual) 0 % (0-2) Band Neutrophils 0 % (0-8) Platelet Estimate Increased H Platelet Morphology Normal Polychromasia Occasional Hypochromasia 2+ Anisocytosis 1+ Ovalocytes 1+ Sodium Level 144 MMOL/L (136-145) Potassium Level 3.5 MMOL/L (3.5-5.1) Chloride Level 111 MMOL/L (98-107) H Carbon Dioxide Level 22 MMOL/L (21-32) Anion Gap 11 mmol/L (5-15) Blood Urea Nitrogen 10 mg/dL (7-18) Creatinine 0.7 MG/DL (0.55-1.30) Estimat Glomerular Filtration Rate mL/min (>60) Glucose Level 72 MG/DL (74-106) L Calcium Level 8.0 MG/DL (8.5-10.1) L Phosphorus Level 2.8 MG/DL (2.5-4.9) Magnesium Level 1.6 MG/DL (1.8-2.4) L Total Bilirubin 0.5 MG/DL (0.2-1.0) Aspartate Amino Transf (AST/SGOT) 14 U/L (15-37) L Alanine Aminotransferase (ALT/SGPT) 14 U/L (12-78) Alkaline Phosphatase 90 U/L (46-116) Total Protein 5.8 G/DL (6.4-8.2) L Albumin 2.0 G/DL (3.4-5.0) L Globulin 3.8 g/dL Albumin/Globulin Ratio 0.5 (1.0-2.7) L Height (Feet): 5 Height (Inches): 0.00 Weight (Pounds): 100 Medications Current Medications Medications (Trade) Dose Ordered Sig/Yi Route PRN Reason Start Time Stop Time Status Last Admin Dose Admin Acetaminophen (Tylenol) 650 mg Q6H PRN ORAL Mild Pain/Temp > 100.5 04/02/18 17:15 05/02/18 17:14 Acetaminophen/ Hydrocodone Bitart ([place] 5/325) 1 tab Q6H PRN ORAL Severe Pain (Pain Scale 7-10) 04/02/18 20:30 04/09/18 20:29 Aspirin (ASA) 81 mg DAILY ORAL 04/03/18 09:00 05/03/18 08:59 04/03/18 08:42 Atenolol (Tenormin) 50 mg Q12HR ORAL 04/02/18 21:00 05/02/18 20:59 04/03/18 20:31 Atorvastatin Calcium (Lipitor) 20 mg BEDTIME ORAL 04/03/18 21:00 05/03/18 20:59 04/03/18 20:31 Clonazepam (KlonoPIN) 0.5 mg Q6H PRN ORAL For Anxiety 04/02/18 17:30 04/09/18 17:29 Clonidine HCl (Catapres Tab) 0.1 mg EVERY 8 HOURS ORAL 04/02/18 22:00 05/02/18 21:59 04/03/18 21:09 Clopidogrel Bisulfate (Plavix) 75 mg DAILY ORAL 04/03/18 09:00 05/03/18 08:59 04/03/18 08:45 Dicyclomine HCl (Bentyl) 10 mg QID ORAL 04/02/18 18:00 18 17:59 04/03/18 20:31 Furosemide (Lasix) 40 mg DAILY ORAL 04/03/18 09:00 12/17/18 08:59 04/03/18 08:45 Heparin Sodium (Porcine) (Heparin 5000 units/ml) 5,000 units EVERY 8 HOURS SUBQ 04/02/18 22:00 05/02/18 21:59 04/03/18 21:13 Losartan Potassium (Cozaar) 50 mg DAILY ORAL 04/04/18 09:00 05/03/18 08:59 Metformin HCl (Glucophage) 500 mg BID ORAL 04/03/18 09:00 05/03/18 08:59 04/03/18 18:00 Potassium Chloride (K-Dur) 10 meq DAILY ORAL 04/03/18 09:00 05/03/18 08:59 04/03/18 08:45 Sitagliptin Phosphate (Januvia) 50 mg ACBREAKFAST ORAL 04/03/18 06:30 05/03/18 06:29 04/03/18 05:51 Trazodone HCl (Desyrel) 50 mg BEDTIME ORAL 04/02/18 21:00 05/02/18 20:59 04/03/18 20:31 Vitamin D (Vitamin D) 5,000 intlu DAILY ORAL 04/03/18 09:00 05/03/18 08:59 04/03/18 08:46 Assessment/Plan Problem List: (1) encephalopathy due to metabolic diorder (2) Psychosis ICD Codes: F29 - Unspecified psychosis not due to a substance or known physiological condition SNOMED: 92054727 (3) Alzheimer's dementia ICD Codes: G30.9 - Alzheimer's disease, unspecified; F02.80 - Dementia in other diseases classified elsewhere without behavioral disturbance SNOMED: 85970771 Assessment/Plan trazadone 50mg qhs klomopin .5mg q 6hr prn the pt lacks capacity to make decisions. Lena Bob MD Apr 03, 2018 22:42
--- NOTE | 2018-04-03 22:46 | General Progress Note ---
Assessment/Plan Problem List: (1) encephalopathy due to metabolic diorder (2) Psychosis ICD Codes: F29 - Unspecified psychosis not due to a substance or known physiological condition SNOMED: 71678651 (3) Alzheimer's dementia ICD Codes: G30.9 - Alzheimer's disease, unspecified; F02.80 - Dementia in other diseases classified elsewhere without behavioral disturbance SNOMED: 26334542 Status: unchanged Assessment/Plan trazadone 50mg qhs klomopin .5mg q 6hr prn the pt lacks capacity to make decisions. Subjective Date patient seen: Apr 03, 2018 Neurologic/Psychiatric: Reports: anxiety, depressed, emotional problems Allergies: Coded Allergies: No Known Allergies (Unverified , 08/10/13) Objective Last 24 Hour Vital Signs Date Time Temp Pulse Resp B/P (MAP) Pulse Ox O2 Delivery O2 Flow Rate FiO2 04/03/18 21:09 148/71 04/03/18 21:00 Room Air Room Air 04/03/18 20:31 69 149/74 04/03/18 20:00 97.9 69 20 149/74 (99) 99 04/03/18 16:00 97.6 66 18 146/63 (90) 100 04/03/18 13:46 154/82 04/03/18 12:09 65 18 156/89 (111) 99 04/03/18 09:00 Room Air Room Air 04/03/18 08:46 80 149/80 04/03/18 08:45 88 149/80 (103) 04/03/18 08:44 149/80 04/03/18 08:00 97.9 77 16 148/75 (99) 97 04/03/18 05:51 151/83 04/03/18 04:00 97.8 74 20 151/83 (105) 93 04/03/18 00:00 97.6 80 20 158/96 (116) 95 Intake and Output 04/02/18 04/03/18 18:59 06:59 Intake Total 350 ml Output Total 2 ml Balance 348 ml Intake Oral 350 ml Output Urine Total 2 ml # Voids 1 Laboratory Tests 04/03/18 05:40: White Blood Count 5.8, Red Blood Count 2.99L, Hemoglobin 7.8L, Hematocrit 25.6L , Mean Corpuscular Volume 86, Mean Corpuscular Hemoglobin 25.9L, Mean Corpuscular Hemoglobin Concent 30.3L, Red Cell Distribution Width 16.9H, Platelet Count 510H, Mean Platelet Volume 6.9, Neutrophils (%) (Auto) , Lymphocytes (%) (Auto) , Monocytes (%) (Auto) , Eosinophils (%) (Auto) , Basophils (%) (Auto) , Differential Total Cells Counted 100, Neutrophils % ( Manual) 68, Lymphocytes % (Manual) 27, Monocytes % (Manual) 5, Eosinophils % ( Manual) 0, Basophils % (Manual) 0, Band Neutrophils 0, Platelet Estimate IncreasedH, Platelet Morphology Normal, Polychromasia Occasional, Hypochromasia 2+, Anisocytosis 1+, Ovalocytes 1+, Sodium Level 144, Potassium Level 3.5, Chloride Level 111H, Carbon Dioxide Level 22, Anion Gap 11, Blood Urea Nitrogen 10, Creatinine 0.7, Estimat Glomerular Filtration Rate , Glucose Level 72L, Calcium Level 8.0L, Phosphorus Level 2.8, Magnesium Level 1.6L, Total Bilirubin 0.5, Aspartate Amino Transf (AST/SGOT) 14L, Alanine Aminotransferase (ALT/SGPT) 14, Alkaline Phosphatase 90, Total Protein 5.8L, Albumin 2.0L, Globulin 3.8, Albumin/Globulin Ratio 0.5L Height (Feet): 5 Height (Inches): 0.00 Weight (Pounds): 100 General Appearance: alert, confused, agitated Lena Bob MD Apr 03, 2018 22:46
[2018-04-03] MEDS: clonazePAM 0.5mg tab ORAL PRN (23:31)
[2018-04-04] VITALS: BP 141/70
[2018-04-04 04:00] VITALS: BP 144/87
[2018-04-04] MEDS: sitaGLIPtin 50mg tab ORAL SCH (05:56)
[2018-04-04] MEDS: Heparin 5000 units/ml inj SUBQ SCH (06:01)
[2018-04-04 06:07] LABS: BASOPHILS % (AUTO) 0.3 % (0.0-2.0); EOSINOPHILS % (AUTO) 0.4 % (0.0-3.0); HEMATOCRIT 26.9 % (37.0-47.0); HEMOGLOBIN 8.2 G/DL (12.0-16.0); LYMPHOCYTES % (AUTO) 14.9 % (20.0-45.0); MEAN CORPUSCULAR VOLUME 84 FL (80-99); MONOCYTES % (AUTO) 8.9 % (1.0-10.0); NEUTROPHILS % (AUTO) 75.5 % (45.0-75.0); PLATELET COUNT 509 K/UL (150-450); RED BLOOD COUNT 3.19 M/UL (4.20-5.40); RED CELL DISTRIBUTION WIDTH 16.7 % (11.6-14.8); WHITE BLOOD COUNT 7.7 K/UL (4.8-10.8)
[2018-04-04 07:15] LABS: ANION GAP 10 mmol/L (5-15); BLOOD UREA NITROGEN 13 mg/dL (7-18); CALCIUM 8.2 MG/DL (8.5-10.1); CARBON DIOXIDE 24 MMOL/L (21-32); CHLORIDE 105 MMOL/L (98-107); CREATININE 0.7 MG/DL (0.55-1.30); SODIUM 139 MMOL/L (136-145)
[2018-04-04 08:00] VITALS: BP 143/68
[2018-04-04] MEDS: Vitamin D 1000 IU Tab ORAL SCH (08:16)
[2018-04-04] MEDS: Dicyclomine 10mg Cap ORAL SCH ×4 (08:17→20:24)
[2018-04-04] MEDS: Aspirin Baby 81mg ORAL SCH (08:17)
[2018-04-04] MEDS: metFORMIN 500mg tab ORAL SCH ×2 (08:17→17:11)
[2018-04-04] MEDS: Furosemide 40mg tab ORAL SCH (08:17)
[2018-04-04] MEDS: clonazePAM 0.5mg tab ORAL PRN (08:18)
[2018-04-04] MEDS: Losartan 25mg tab ORAL SCH (08:18)
[2018-04-04 12:00] VITALS: BP 160/68
[2018-04-04] MEDS ORDERED: Haloperidol 5mg/ml Inj IM PRN (13:00)
--- NOTE | 2018-04-04 13:08 | Internal Med Progress Note ---
Subjective Date of Service: Apr 04, 2018 Physician Name CassieAquilino Attending Physician Carlos Alberto Berkowitz MD Current Medications Medications (Trade) Dose Ordered Sig/Yi Route PRN Reason Start Time Stop Time Status Last Admin Dose Admin Acetaminophen (Tylenol) 650 mg Q6H PRN ORAL Mild Pain/Temp > 100.5 04/02/18 17:15 05/02/18 17:14 Acetaminophen/ Hydrocodone Bitart ([place] 5/325) 1 tab Q6H PRN ORAL Severe Pain (Pain Scale 7-10) 04/02/18 20:30 04/09/18 20:29 Atenolol (Tenormin) 50 mg Q12HR ORAL 04/02/18 21:00 05/02/18 20:59 04/04/18 08:17 Atorvastatin Calcium (Lipitor) 20 mg BEDTIME ORAL 04/03/18 21:00 05/03/18 20:59 04/03/18 20:31 Clonazepam (KlonoPIN) 0.5 mg Q6H PRN ORAL For Anxiety 04/02/18 17:30 04/09/18 17:29 04/04/18 08:18 Clonidine HCl (Catapres Tab) 0.1 mg EVERY 8 HOURS ORAL 04/02/18 22:00 05/02/18 21:59 04/04/18 05:56 Dicyclomine HCl (Bentyl) 10 mg QID ORAL 04/02/18 18:00 05/02/18 17:59 04/04/18 08:17 Furosemide (Lasix) 40 mg DAILY ORAL 04/03/18 09:00 05/03/18 08:59 04/04/18 08:17 Haloperidol Lactate (Haldol) 5 mg Q4H PRN IM Agitation 04/04/18 13:00 05/04/18 12:59 Losartan Potassium (Cozaar) 50 mg DAILY ORAL 04/04/18 09:00 05/03/18 08:59 04/04/18 08:18 Metformin HCl (Glucophage) 500 mg BID ORAL 04/03/18 09:00 05/03/18 08:59 04/04/18 08:17 Potassium Chloride (K-Dur) 10 meq DAILY ORAL 04/03/18 09:00 05/03/18 08:59 04/04/18 08:17 Sitagliptin Phosphate (Januvia) 50 mg ACBREAKFAST ORAL 04/03/18 06:30 05/03/18 06:29 04/04/18 05:56 Trazodone HCl (Desyrel) 50 mg BEDTIME ORAL 04/02/18 21:00 05/02/18 20:59 04/03/18 20:31 Vitamin D (Vitamin D) 5,000 intlu DAILY ORAL 04/03/18 09:00 05/03/18 08:59 04/04/18 08:16 Allergies: Coded Allergies: No Known Allergies (Unverified , 08/10/13) ROS Limited/Unobtainable: No Subjective 82 YO F admitted with generalized weakness. Cover for Int Med-Dr Berkowitz. Objective Last Vital Signs Date Time Temp Pulse Resp B/P (MAP) Pulse Ox O2 Delivery O2 Flow Rate FiO2 04/04/18 12:00 98.1 72 20 160/68 (98) 99 04/04/18 09:00 Room Air Room Air 04/02/18 18:13 98 Laboratory Tests Test 04/04/18 05:15 White Blood Count 7.7 K/UL (4.8-10.8) Red Blood Count 3.19 M/UL (4.20-5.40) L Hemoglobin 8.2 G/DL (12.0-16.0) L Hematocrit 26.9 % (37.0-47.0) L Mean Corpuscular Volume 84 FL (80-99) Mean Corpuscular Hemoglobin 25.7 PG (27.0-31.0) L Mean Corpuscular Hemoglobin Concent 30.4 G/DL (32.0-36.0) L Red Cell Distribution Width 16.7 % (11.6-14.8) H Platelet Count 509 K/UL (150-450) H Mean Platelet Volume 6.6 FL (6.5-10.1) Neutrophils (%) (Auto) 75.5 % (45.0-75.0) H Lymphocytes (%) (Auto) 14.9 % (20.0-45.0) L Monocytes (%) (Auto) 8.9 % (1.0-10.0) Eosinophils (%) (Auto) 0.4 % (0.0-3.0) Basophils (%) (Auto) 0.3 % (0.0-2.0) Sodium Level 139 MMOL/L (136-145) Potassium Level 3.0 MMOL/L (3.5-5.1) L Chloride Level 105 MMOL/L (98-107) Carbon Dioxide Level 24 MMOL/L (21-32) Anion Gap 10 mmol/L (5-15) Blood Urea Nitrogen 13 mg/dL (7-18) Creatinine 0.7 MG/DL (0.55-1.30) Estimat Glomerular Filtration Rate mL/min (>60) Glucose Level 111 MG/DL (74-106) H Calcium Level 8.2 MG/DL (8.5-10.1) L Microbiology Date/Time Source Procedure Growth Status 04/02/18 13:00 Blood Blood Culture - Preliminary NO GROWTH AFTER 24 HOURS Resulted 04/02/18 12:00 Blood Blood Culture - Preliminary NO GROWTH AFTER 24 HOURS Resulted Intake and Output 04/03/18 04/04/18 19:00 07:00 Intake Total 478 ml Balance 478 ml Intake Oral 478 ml # Voids 5 2 Objective General Appearance: WD/WN, mild distress, agitated EENT: PERRL/EOMI, normal ENT inspection Neck: non-tender, normal alignment, supple, normal inspection Cardiovascular: normal peripheral pulses, normal rate, regular rhythm, no gallop/murmur, no JVD Respiratory/Chest: chest wall non-tender, lungs clear, normal breath sounds, no accessory muscle use, respiratory distress Abdomen: normal bowel sounds, non tender, soft, no organomegaly, no mass Extremities: normal range of motion 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 Await PT/OT eval (2) Diabetes mellitus, type II Assessment & Plan: Continue metformin and januvia (3) HTN (hypertension) Assessment & Plan: continue atenolol and cozaar (4) Sick sinus syndrome Assessment & Plan: S/P pacemaker (5) Aortic stenosis (6) Pulmonary hypertension (7) Alzheimer's dementia (8) Hypercholesterolemia Aquilino Matthews MD Apr 04, 2018 13:08
[2018-04-04 15:52] VITALS: BP 127/69
--- NOTE | 2018-04-04 16:14 | Consultation ---
History of Present Illness General Date patient seen: Apr 04, 2018 Chief Complaint: Generalized Weakness Present Illness HPI 82 year old female with multiple medical comorbidities presented for generalized weakness/failure to thrive. Has been in care facility and recently has had Ortho surgery. In recovery when she declined and required admission. On admission noted to have sacral decubitus ulcers which may need intervention. Surgery called to evaluate and assist with care / management. patient seen, chart reviewed, patient examined. in bed comfortable. alert. significant dementia. Allergies: Coded Allergies: No Known Allergies (Unverified , 08/10/13) Medication History Scheduled Aspirin (Aspirin EC), 81 MG ORAL DAILY, (Reported) Atenolol* (Tenormin*), 50 MG ORAL BID, (Reported) Clonazepam* (Klonopin*), 0.5 MG ORAL Q6H, (Reported) Clonidine Hcl* (Catapres*), 0.1 MG ORAL EVERY 8 HOURS, (Reported) Clopidogrel* (Clopidogrel*), 75 MG ORAL DAILY, (Reported) Dicyclomine Hcl* (Dicyclomine Hcl*), 10 MG PO QID Famotidine (Pepcid), 20 MG ORAL BEDTIME Furosemide* (Lasix*), 40 MG ORAL DAILY, (Reported) Losartan Potassium* (Losartan Potassium*), 25 MG ORAL DAILY, (Reported) Potassium Chloride (Potassium Chloride), 10 MEQ ORAL DAILY, (Reported) Rosuvastatin Calcium* (Crestor*), 10 MG ORAL DAILY, (Reported) Sitagliptin Phos/Metformin Hcl (Janumet Xr 50-1,000 Mg Tablet), 1 TAB ORAL DAILY , (Reported) Trazodone* (Trazodone*), 50 MG ORAL BEDTIME, (Reported) Vitamin D (Vitamin D3), 5,000 UNITS ORAL DAILY, (Reported) Scheduled PRN Hydrocodone Bit/Acetaminophen 5-325* ([place] 5-325*), 1 TAB ORAL Q6H PRN for For Pain Patient History Limited by: age, medical condition History Provided By: Patient, Medical Record, PMD Healthcare decision maker Resuscitation status Full Code Advanced Directive on File No Past Medical/Surgical History Past Medical/Surgical History: (1) Gravely disabled (2) Pulmonary hypertension (3) Aortic stenosis (4) Generalized weakness (5) Hypercholesteremia (6) Hypercholesterolemia (7) Alzheimer's dementia (8) Failure to thrive (9) Recurrent dislocation, right hip (10) Fracture of superior pubic ramus (11) encephalopathy due to metabolic diorder (12) Pressure ulcer (13) Delirium (14) Acute on chronic systolic CHF (congestive heart failure) (15) Colitis (16) Diabetes mellitus, type II (17) Closed fracture of symphysis pubis (18) Psychosis (19) DVT of left axillary vein, acute (20) Sick sinus syndrome (21) CAD (coronary artery disease) (22) HTN (hypertension) (23) Pacemaker (24) Fracture of femoral neck, right, closed (25) Hip fracture requiring operative repair (26) UTI (urinary tract infection) (27) E coli infection Review of Systems All Other Systems: negative except mentioned in HPI ROS Narrative cannot obtain given medical condition Physical Exam General Appearance: no apparent distress, alert Lines, tubes and drains: peripheral HEENT: mucous membranes moist Neck: normal inspection Respiratory/Chest: normal breath sounds, no respiratory distress Cardiovascular/Chest: normal rate Abdomen: normal bowel sounds, non tender, soft, no organomegaly Extremities: normal inspection, other Skin Exam: other Neurologic: alert, disoriented Last 24 Hour Vital Signs Date Time Temp Pulse Resp B/P (MAP) Pulse Ox O2 Delivery O2 Flow Rate FiO2 04/04/18 15:52 98.3 63 16 127/69 (88) 99 04/04/18 13:20 160/68 04/04/18 12:00 98.1 72 20 160/68 (98) 99 04/04/18 09:00 Room Air Room Air 04/04/18 08:18 143/78 04/04/18 08:17 70 143/78 04/04/18 08:00 99.0 70 20 143/68 (93) 99 04/04/18 05:56 144/87 04/04/18 04:00 97.9 99 20 144/87 (106) 99 04/04/18 00:00 97.0 67 20 141/70 (93) 98 04/03/18 21:09 148/71 04/03/18 21:00 Room Air Room Air 04/03/18 20:31 69 149/74 04/03/18 20:00 97.9 69 20 149/74 (99) 99 Intake and Output 04/03/18 04/04/18 19:00 07:00 Intake Total 478 ml Balance 478 ml Intake Oral 478 ml # Voids 5 2 Laboratory Tests Test 04/04/18 05:15 White Blood Count 7.7 K/UL (4.8-10.8) Red Blood Count 3.19 M/UL (4.20-5.40) L Hemoglobin 8.2 G/DL (12.0-16.0) L Hematocrit 26.9 % (37.0-47.0) L Mean Corpuscular Volume 84 FL (80-99) Mean Corpuscular Hemoglobin 25.7 PG (27.0-31.0) L Mean Corpuscular Hemoglobin Concent 30.4 G/DL (32.0-36.0) L Red Cell Distribution Width 16.7 % (11.6-14.8) H Platelet Count 509 K/UL (150-450) H Mean Platelet Volume 6.6 FL (6.5-10.1) Neutrophils (%) (Auto) 75.5 % (45.0-75.0) H Lymphocytes (%) (Auto) 14.9 % (20.0-45.0) L Monocytes (%) (Auto) 8.9 % (1.0-10.0) Eosinophils (%) (Auto) 0.4 % (0.0-3.0) Basophils (%) (Auto) 0.3 % (0.0-2.0) Sodium Level 139 MMOL/L (136-145) Potassium Level 3.0 MMOL/L (3.5-5.1) L Chloride Level 105 MMOL/L (98-107) Carbon Dioxide Level 24 MMOL/L (21-32) Anion Gap 10 mmol/L (5-15) Blood Urea Nitrogen 13 mg/dL (7-18) Creatinine 0.7 MG/DL (0.55-1.30) Estimat Glomerular Filtration Rate mL/min (>60) Glucose Level 111 MG/DL (74-106) H Calcium Level 8.2 MG/DL (8.5-10.1) L Height (Feet): 5 Height (Inches): 0.00 Weight (Pounds): 100 Medications Current Medications Medications (Trade) Dose Ordered Sig/Yi Route PRN Reason Start Time Stop Time Status Last Admin Dose Admin Acetaminophen (Tylenol) 650 mg Q6H PRN ORAL Mild Pain/Temp > 100.5 04/02/18 17:15 05/02/18 17:14 Acetaminophen/ Hydrocodone Bitart ([place] 5/325) 1 tab Q6H PRN ORAL Severe Pain (Pain Scale 7-10) 04/02/18 20:30 04/09/18 20:29 Atenolol (Tenormin) 50 mg Q12HR ORAL 04/02/18 21:00 05/02/18 20:59 04/04/18 08:17 Atorvastatin Calcium (Lipitor) 20 mg BEDTIME ORAL 04/03/18 21:00 05/03/18 20:59 04/03/18 20:31 Clonazepam (KlonoPIN) 0.5 mg Q6H PRN ORAL For Anxiety 04/02/18 17:30 04/09/18 17:29 04/04/18 08:18 Clonidine HCl (Catapres Tab) 0.1 mg EVERY 8 HOURS ORAL 04/02/18 22:00 05/02/18 21:59 04/04/18 13:20 Dicyclomine HCl (Bentyl) 10 mg QID ORAL 04/02/18 18:00 05/02/18 17:59 04/04/18 13:19 Haloperidol Lactate (Haldol) 5 mg Q4H PRN IM Agitation 04/04/18 13:00 05/04/18 12:59 Losartan Potassium (Cozaar) 50 mg DAILY ORAL 04/04/18 09:00 05/03/18 08:59 04/04/18 08:18 Metformin HCl (Glucophage) 500 mg BID ORAL 04/03/18 09:00 05/03/18 08:59 04/04/18 08:17 Potassium Chloride (K-Dur) 10 meq DAILY ORAL 04/03/18 09:00 05/03/18 08:59 04/04/18 08:17 Sitagliptin Phosphate (Januvia) 50 mg ACBREAKFAST ORAL 04/03/18 06:30 05/03/18 06:29 04/04/18 05:56 Trazodone HCl (Desyrel) 50 mg BEDTIME ORAL 04/02/18 21:00 05/02/18 20:59 04/03/18 20:31 Vitamin D (Vitamin D) 5,000 intlu DAILY ORAL 04/03/18 09:00 05/03/18 08:59 04/04/18 08:16 Assessment/Plan Problem List: (1) Sacral decubitus ulcer, stage III Assessment & Plan: Full thickness pressure injury to sacral region. multiple areas some which are chronic with some slow resolving areas noted. 2cm x3cm midline sacral full thickness wound with 100% sloth, just right and just left to this there are smaller areas approximately <2cm x <2cm with similar appearing ulcerations. no odor. no significant drainage. no bone or muscle seem to be exposed. 100% sloth. wounds present upon admission and will be cared for during hospital stay Plan: wash wounds daily with NS; apply hydrogel or therahoney followed by foam dressing turn q2h heel protectors air mattress will likely need excisional vs non excisional debridement of sloth down to healthy viable tissue. may consider during hospitalization nutritional support ICD Codes: L89.153 - Pressure ulcer of sacral region, stage 3 SNOMED: 812696704, [id number] (2) Failure to thrive Assessment & Plan: elderly female with dementia albumin 2 multiple decubitus ulcers nutritional consult increase protein and Caloric intake will need optimization to help heal wounds SNOMED: [id number] Status: stable Sher Younger Apr 04, 2018 16:14
[2018-04-04] MEDS: Norco 5mg/325mg tab ORAL PRN (16:16)
--- NOTE | 2018-04-04 19:58 | General Progress Note ---
Subjective Allergies: Coded Allergies: No Known Allergies (Unverified , 08/10/13) Objective Last 24 Hour Vital Signs Date Time Temp Pulse Resp B/P (MAP) Pulse Ox O2 Delivery O2 Flow Rate FiO2 04/04/18 15:52 98.3 63 16 127/69 (88) 99 04/04/18 13:20 160/68 04/04/18 12:00 98.1 72 20 160/68 (98) 99 04/04/18 09:00 Room Air Room Air 04/04/18 08:18 143/78 04/04/18 08:17 70 143/78 04/04/18 08:00 99.0 70 20 143/68 (93) 99 04/04/18 05:56 144/87 04/04/18 04:00 97.9 99 20 144/87 (106) 99 04/04/18 00:00 97.0 67 20 141/70 (93) 98 04/03/18 21:09 148/71 04/03/18 21:00 Room Air Room Air 04/03/18 20:31 69 149/74 04/03/18 20:00 97.9 69 20 149/74 (99) 99 Intake and Output 04/03/18 04/04/18 19:00 07:00 Intake Total 478 ml Balance 478 ml Intake Oral 478 ml # Voids 5 2 Laboratory Tests 04/04/18 05:15: White Blood Count 7.7, Red Blood Count 3.19L, Hemoglobin 8.2L, Hematocrit 26.9L , Mean Corpuscular Volume 84, Mean Corpuscular Hemoglobin 25.7L, Mean Corpuscular Hemoglobin Concent 30.4L, Red Cell Distribution Width 16.7H, Platelet Count 509H, Mean Platelet Volume 6.6, Neutrophils (%) (Auto) 75.5H, Lymphocytes (%) (Auto) 14.9L, Monocytes (%) (Auto) 8.9, Eosinophils (%) (Auto) 0.4, Basophils (%) (Auto) 0.3, Sodium Level 139, Potassium Level 3.0L, Chloride Level 105, Carbon Dioxide Level 24, Anion Gap 10, Blood Urea Nitrogen 13, Creatinine 0.7, Estimat Glomerular Filtration Rate , Glucose Level 111H, Calcium Level 8.2L Height (Feet): 5 Height (Inches): 0.00 Weight (Pounds): 100 Thalia Grant MD Apr 04, 2018 19:57
[2018-04-04 20:00] VITALS: BP 147/67
[2018-04-04] MEDS ORDERED: Sorbitol Solution UD 30ml ORAL SCH (20:10)
--- NOTE | 2018-04-04 20:22 | General Progress Note ---
Assessment/Plan Assessment/Plan Assessment - constipation, rectal loading - hematochezia, likely hemorrhoidal - Anemia - agitation Recommendations - clear liquid diet - GI laxative - Will contact family re findings - Monitor H&H - Check Fe panel Subjective Allergies: Coded Allergies: No Known Allergies (Unverified , 08/10/13) Objective Last 24 Hour Vital Signs Date Time Temp Pulse Resp B/P (MAP) Pulse Ox O2 Delivery O2 Flow Rate FiO2 04/04/18 20:00 98.3 70 20 147/67 (93) 99 04/04/18 15:52 98.3 63 16 127/69 (88) 99 04/04/18 13:20 160/68 04/04/18 12:00 98.1 72 20 160/68 (98) 99 04/04/18 09:00 Room Air Room Air 04/04/18 08:18 143/78 04/04/18 08:17 70 143/78 04/04/18 08:00 99.0 70 20 143/68 (93) 99 04/04/18 05:56 144/87 04/04/18 04:00 97.9 99 20 144/87 (106) 99 04/04/18 00:00 97.0 67 20 141/70 (93) 98 04/03/18 21:09 148/71 04/03/18 21:00 Room Air Room Air 04/03/18 20:31 69 149/74 Intake and Output 04/03/18 04/04/18 19:00 07:00 Intake Total 478 ml Balance 478 ml Intake Oral 478 ml # Voids 5 2 Laboratory Tests 04/04/18 05:15: White Blood Count 7.7, Red Blood Count 3.19L, Hemoglobin 8.2L, Hematocrit 26.9L , Mean Corpuscular Volume 84, Mean Corpuscular Hemoglobin 25.7L, Mean Corpuscular Hemoglobin Concent 30.4L, Red Cell Distribution Width 16.7H, Platelet Count 509H, Mean Platelet Volume 6.6, Neutrophils (%) (Auto) 75.5H, Lymphocytes (%) (Auto) 14.9L, Monocytes (%) (Auto) 8.9, Eosinophils (%) (Auto) 0.4, Basophils (%) (Auto) 0.3, Sodium Level 139, Potassium Level 3.0L, Chloride Level 105, Carbon Dioxide Level 24, Anion Gap 10, Blood Urea Nitrogen 13, Creatinine 0.7, Estimat Glomerular Filtration Rate , Glucose Level 111H, Calcium Level 8.2L Height (Feet): 5 Height (Inches): 0.00 Weight (Pounds): 100 Thalia Grant MD Apr 04, 2018 20:22
[2018-04-04] MEDS: TraZODone 50mg tab ORAL SCH (20:24)
[2018-04-04] MEDS: Atorvastatin 20mg tab ORAL SCH (20:24)
[2018-04-04] MEDS ORDERED: Bisacodyl EC 5mg tab ORAL SCH (20:45)
--- NOTE | 2018-04-04 23:56 | General Progress Note ---
Assessment/Plan Problem List: (1) encephalopathy due to metabolic diorder (2) Psychosis ICD Codes: F29 - Unspecified psychosis not due to a substance or known physiological condition SNOMED: 29300413 (3) Alzheimer's dementia ICD Codes: G30.9 - Alzheimer's disease, unspecified; F02.80 - Dementia in other diseases classified elsewhere without behavioral disturbance SNOMED: 00087864 Assessment/Plan trazadone 50mg qhs klomopin .5mg q 6hr prn the pt lacks capacity to make decisions. Subjective Neurologic/Psychiatric: Reports: anxiety, depressed Allergies: Coded Allergies: No Known Allergies (Unverified , 08/10/13) Objective Last 24 Hour Vital Signs Date Time Temp Pulse Resp B/P (MAP) Pulse Ox O2 Delivery O2 Flow Rate FiO2 04/04/18 21:11 Room Air Room Air 04/04/18 20:51 147/67 04/04/18 20:24 70 147/67 04/04/18 20:00 98.3 70 20 147/67 (93) 99 04/04/18 15:52 98.3 63 16 127/69 (88) 99 04/04/18 13:20 160/68 04/04/18 12:00 98.1 72 20 160/68 (98) 99 04/04/18 09:00 Room Air Room Air 04/04/18 08:18 143/78 04/04/18 08:17 70 143/78 04/04/18 08:00 99.0 70 20 143/68 (93) 99 04/04/18 05:56 144/87 04/04/18 04:00 97.9 99 20 144/87 (106) 99 04/04/18 00:00 97.0 67 20 141/70 (93) 98 Intake and Output 04/03/18 04/04/18 19:00 07:00 Intake Total 478 ml Balance 478 ml Intake Oral 478 ml # Voids 5 2 Laboratory Tests 04/04/18 05:15: White Blood Count 7.7, Red Blood Count 3.19L, Hemoglobin 8.2L, Hematocrit 26.9L , Mean Corpuscular Volume 84, Mean Corpuscular Hemoglobin 25.7L, Mean Corpuscular Hemoglobin Concent 30.4L, Red Cell Distribution Width 16.7H, Platelet Count 509H, Mean Platelet Volume 6.6, Neutrophils (%) (Auto) 75.5H, Lymphocytes (%) (Auto) 14.9L, Monocytes (%) (Auto) 8.9, Eosinophils (%) (Auto) 0.4, Basophils (%) (Auto) 0.3, Sodium Level 139, Potassium Level 3.0L, Chloride Level 105, Carbon Dioxide Level 24, Anion Gap 10, Blood Urea Nitrogen 13, Creatinine 0.7, Estimat Glomerular Filtration Rate , Glucose Level 111H, Calcium Level 8.2L Height (Feet): 5 Height (Inches): 0.00 Weight (Pounds): 100 General Appearance: alert, confused, moderate distress, agitated Lena Bob MD Apr 04, 2018 23:55
[2018-04-05 00:12] VITALS: BP 163/85
--- NOTE | 2018-04-05 01:00 | Consultation ---
DATE OF CONSULTATION: 04/04/2018 GASTROENTEROLOGY CONSULTATION CONSULTING PHYSICIAN: Thalia Grant M.D. REFERRING PHYSICIAN: Carlos Alberto Berkowitz M.D. CHIEF COMPLAINT: I was asked to see this patient by Dr. Carlos Alberto Berkowitz for evaluation of gastrointestinal bleeding. The patient is an 82-year-old [place] woman who is admitted to the hospital due to complaints of generalized weakness. She has been seen by multiple consultants. At times, she has been agitated. She is status post open reduction and internal fixation of right hip on March 01. She was noted to have a bowel movement which had just a little amount of blood in it. Yesterday her bowel movements were brown and normal. There is no chart report of any significant gastrointestinal history in the past. PAST MEDICAL HISTORY: History of right hip fracture, status post right hip arthroplasty about a month ago. She has a history of right hip arthroplasty and subsequent reduction , type 2 diabetes, hypertension, sick sinus syndrome, hypercholesterolemia, coronary artery disease, status post myocardial infarction, aortic stenosis, pulmonary hypertension, Alzheimer dementia, status post pacemaker placement in 2013 as well as pacemaker generator change in 2016. MEDICATIONS: Include calcium and Forteo. ALLERGIES: None. FAMILY HISTORY: Noncontributory. SOCIAL HISTORY: The patient is and lives with her . There has been no history of smoking or drinking. REVIEW OF SYSTEMS: Otherwise negative. PHYSICAL EXAMINATION: GENERAL: An elderly white woman, seen in her room with the nurses at bedside. HEENT: Normocephalic and atraumatic. Sclerae are anicteric. Oropharynx clear. NECK: Supple. CHEST: Clear to auscultation. CARDIOVASCULAR: Revealed a regular rate. ABDOMEN: Soft. Good bowel sounds. There is no organomegaly. RECTAL: Revealed solid stool in the rectum, which was brown from just the anal area, which had some thrombosed hemorrhoids. ASSESSMENT: This patient has rectal bleeding, which is likely from hemorrhoids. The patient does have constipation and rectal stool loading. She could have lower gastrointestinal workup for evaluation of the bleeding, but I will first discuss with family regarding medication risks. For the time being, the patient should be placed on clear liquid diet and bowel regimen will be given. The CBC should be monitored. RECOMMENDATIONS: Per above discussion and per orders written in the chart. Thank you for asking me to participate in the care of this patient. Thalia Grant M.D. DR: RUSTY JOB#: [id number] CC: KRISSY
[2018-04-05 04:00] VITALS: BP 134/64
[2018-04-05] MEDS: sitaGLIPtin 50mg tab ORAL SCH (05:55)
[2018-04-05 08:00] VITALS: BP 143/84
[2018-04-05 08:04] LABS: BASOPHILS % (AUTO) 0.4 % (0.0-2.0); EOSINOPHILS % (AUTO) 0.2 % (0.0-3.0); HEMATOCRIT 28.8 % (37.0-47.0); HEMOGLOBIN 8.8 G/DL (12.0-16.0); LYMPHOCYTES % (AUTO) 17.6 % (20.0-45.0); MEAN CORPUSCULAR VOLUME 85 FL (80-99); MONOCYTES % (AUTO) 8.9 % (1.0-10.0); PLATELET COUNT 467 K/UL (150-450); RED BLOOD COUNT 3.39 M/UL (4.20-5.40); RED CELL DISTRIBUTION WIDTH 16.7 % (11.6-14.8); WHITE BLOOD COUNT 7.8 K/UL (4.8-10.8)
[2018-04-05 08:24] LABS: ANION GAP 9 mmol/L (5-15); BLOOD UREA NITROGEN 12 mg/dL (7-18); CALCIUM 8.8 MG/DL (8.5-10.1); CARBON DIOXIDE 27 MMOL/L (21-32); CHLORIDE 105 MMOL/L (98-107); CREATININE 0.7 MG/DL (0.55-1.30); POTASSIUM 3.5 MMOL/L (3.5-5.1); SODIUM 141 MMOL/L (136-145)
[2018-04-05 08:25] LABS: % IRON SATURATION 9 % (15-50); IRON 18 ug/dL (50-175); TOTAL IRON BINDING CAPACITY 201 ug/dL (250-450)
[2018-04-05] MEDS: Vitamin D 1000 IU Tab ORAL SCH (09:04)
[2018-04-05] MEDS: Losartan 25mg tab ORAL SCH (09:05)
[2018-04-05] MEDS: metFORMIN 500mg tab ORAL SCH ×2 (09:06→17:49)
[2018-04-05] MEDS: Dicyclomine 10mg Cap ORAL SCH ×4 (09:06→21:00)
[2018-04-05] MEDS: Norco 5mg/325mg tab ORAL PRN (09:16)
[2018-04-05] MEDS: clonazePAM 0.5mg tab ORAL PRN (09:35)
--- NOTE | 2018-04-05 10:33 | Consultation ---
History of Present Illness General Date patient seen: Apr 05, 2018 Chief Complaint: Generalized Weakness Present Illness HPI 82 year old female with hx of dementia, HTN, pace maker, pulmonary hypertension , aortic stenosis, decubiti ulcers, right hip replacement brought in by paramedics with CC of intractable pain of right hip and failure to thrive and possible neglect. an XR of right hip showed some dislocation of the right hip. She is admitted for further work up. Allergies: Coded Allergies: No Known Allergies (Unverified , 08/10/13) Medication History Scheduled Aspirin (Aspirin EC), 81 MG ORAL DAILY, (Reported) Atenolol* (Tenormin*), 50 MG ORAL BID, (Reported) Clonazepam* (Klonopin*), 0.5 MG ORAL Q6H, (Reported) Clonidine Hcl* (Catapres*), 0.1 MG ORAL EVERY 8 HOURS, (Reported) Clopidogrel* (Clopidogrel*), 75 MG ORAL DAILY, (Reported) Dicyclomine Hcl* (Dicyclomine Hcl*), 10 MG PO QID Famotidine (Pepcid), 20 MG ORAL BEDTIME Furosemide* (Lasix*), 40 MG ORAL DAILY, (Reported) Losartan Potassium* (Losartan Potassium*), 25 MG ORAL DAILY, (Reported) Potassium Chloride (Potassium Chloride), 10 MEQ ORAL DAILY, (Reported) Rosuvastatin Calcium* (Crestor*), 10 MG ORAL DAILY, (Reported) Sitagliptin Phos/Metformin Hcl (Janumet Xr 50-1,000 Mg Tablet), 1 TAB ORAL DAILY , (Reported) Trazodone* (Trazodone*), 50 MG ORAL BEDTIME, (Reported) Vitamin D (Vitamin D3), 5,000 UNITS ORAL DAILY, (Reported) Scheduled PRN Hydrocodone Bit/Acetaminophen 5-325* (Lavina 5-325*), 1 TAB ORAL Q6H PRN for For Pain Patient History Healthcare decision maker Resuscitation status Full Code Advanced Directive on File No Past Medical/Surgical History Past Medical/Surgical History: (1) Pulmonary hypertension (2) Aortic stenosis (3) Alzheimer's dementia (4) Pressure ulcer (5) Pacemaker (6) HTN (hypertension) (7) CAD (coronary artery disease) (8) Sick sinus syndrome (9) DVT of left axillary vein, acute Review of Systems All Other Systems: negative except mentioned in HPI Physical Exam General Appearance: cachetic Lines, tubes and drains: peripheral HEENT: normocephalic, atraumatic Neck: non-tender, normal alignment Respiratory/Chest: chest wall non-tender, lungs clear Breasts: no masses Cardiovascular/Chest: normal peripheral pulses Abdomen: normal bowel sounds, hyperactive bowel sounds Genitourinary/Rectal: normal rectal exam Extremities: non-tender Last 24 Hour Vital Signs Date Time Temp Pulse Resp B/P (MAP) Pulse Ox O2 Delivery O2 Flow Rate FiO2 04/05/18 09:05 143/84 04/05/18 09:05 77 143/84 04/05/18 08:16 Room Air Room Air 04/05/18 08:00 98.0 77 19 143/84 (103) 97 04/05/18 05:52 134/64 04/05/18 04:00 97.4 74 18 134/64 (87) 95 04/05/18 00:12 98.0 80 20 163/85 (111) 96 04/04/18 21:11 Room Air Room Air 04/04/18 20:51 147/67 04/04/18 20:24 70 147/67 04/04/18 20:00 98.3 70 20 147/67 (93) 99 04/04/18 15:52 98.3 63 16 127/69 (88) 99 04/04/18 13:20 160/68 04/04/18 12:00 98.1 72 20 160/68 (98) 99 Intake and Output 04/04/18 04/05/18 19:00 07:00 Intake Total 354 ml 118 ml Balance 354 ml 118 ml Intake Oral 354 ml 118 ml # Voids 4 6 # Bowel Movements 1 7 Laboratory Tests Test 04/05/18 07:16 White Blood Count 7.8 K/UL (4.8-10.8) Red Blood Count 3.39 M/UL (4.20-5.40) L Hemoglobin 8.8 G/DL (12.0-16.0) L Hematocrit 28.8 % (37.0-47.0) L Mean Corpuscular Volume 85 FL (80-99) Mean Corpuscular Hemoglobin 26.0 PG (27.0-31.0) L Mean Corpuscular Hemoglobin Concent 30.7 G/DL (32.0-36.0) L Red Cell Distribution Width 16.7 % (11.6-14.8) H Platelet Count 467 K/UL (150-450) H Mean Platelet Volume 6.8 FL (6.5-10.1) Neutrophils (%) (Auto) 73.0 % (45.0-75.0) Lymphocytes (%) (Auto) 17.6 % (20.0-45.0) L Monocytes (%) (Auto) 8.9 % (1.0-10.0) Eosinophils (%) (Auto) 0.2 % (0.0-3.0) Basophils (%) (Auto) 0.4 % (0.0-2.0) Sodium Level 141 MMOL/L (136-145) Potassium Level 3.5 MMOL/L (3.5-5.1) Chloride Level 105 MMOL/L (98-107) Carbon Dioxide Level 27 MMOL/L (21-32) Anion Gap 9 mmol/L (5-15) Blood Urea Nitrogen 12 mg/dL (7-18) Creatinine 0.7 MG/DL (0.55-1.30) Estimat Glomerular Filtration Rate mL/min (>60) Glucose Level 107 MG/DL (74-106) H Calcium Level 8.8 MG/DL (8.5-10.1) Iron Level 18 ug/dL (50-175) L Total Iron Binding Capacity 201 ug/dL (250-450) L Percent Iron Saturation 9 % (15-50) L Unsaturated Iron Binding 183 ug/dL (112-346) Height (Feet): 5 Height (Inches): 0.00 Weight (Pounds): 100 Medications Current Medications Medications (Trade) Dose Ordered Sig/Yi Route PRN Reason Start Time Stop Time Status Last Admin Dose Admin Acetaminophen (Tylenol) 650 mg Q6H PRN ORAL Mild Pain/Temp > 100.5 04/02/18 17:15 05/02/18 17:14 Acetaminophen/ Hydrocodone Bitart (Lavina 5/325) 1 tab Q6H PRN ORAL Severe Pain (Pain Scale 7-10) 04/02/18 20:30 04/09/18 20:29 04/05/18 09:16 Atenolol (Tenormin) 50 mg Q12HR ORAL 04/02/18 21:00 05/02/18 20:59 04/05/18 09:05 Atorvastatin Calcium (Lipitor) 20 mg BEDTIME ORAL 04/03/18 21:00 05/03/18 20:59 04/04/18 20:24 Clonazepam (KlonoPIN) 0.5 mg Q6H PRN ORAL For Anxiety 04/02/18 17:30 04/09/18 17:29 04/05/18 09:35 Clonidine HCl (Catapres Tab) 0.1 mg EVERY 8 HOURS ORAL 04/02/18 22:00 05/02/18 21:59 04/05/18 05:52 Dicyclomine HCl (Bentyl) 10 mg QID ORAL 04/02/18 18:00 05/02/18 17:59 04/05/18 09:06 Haloperidol Lactate (Haldol) 5 mg Q4H PRN IM Agitation 04/04/18 13:00 05/04/18 12:59 Losartan Potassium (Cozaar) 50 mg DAILY ORAL 04/04/18 09:00 05/03/18 08:59 04/05/18 09:05 Metformin HCl (Glucophage) 500 mg BID ORAL 04/03/18 09:00 05/03/18 08:59 04/05/18 09:06 Potassium Chloride (K-Dur) 10 meq DAILY ORAL 04/03/18 09:00 05/03/18 08:59 04/05/18 09:04 Sitagliptin Phosphate (Januvia) 50 mg ACBREAKFAST ORAL 04/03/18 06:30 05/03/18 06:29 04/05/18 05:55 Trazodone HCl (Desyrel) 50 mg BEDTIME ORAL 04/02/18 21:00 05/02/18 20:59 04/04/18 20:24 Vitamin D (Vitamin D) 5,000 intlu DAILY ORAL 04/03/18 09:00 05/03/18 08:59 04/05/18 09:04 Assessment/Plan Problem List: (1) Hip dislocation, right ICD Codes: S73.004A - Unspecified dislocation of right hip, initial encounter SNOMED: 193190426 (2) Protein-calorie malnutrition, severe ICD Codes: E43 - Unspecified severe protein-calorie malnutrition SNOMED: 365485828 (3) Psychosis ICD Codes: F29 - Unspecified psychosis not due to a substance or known physiological condition SNOMED: 23749814 (4) Sacral decubitus ulcer, stage III ICD Codes: L89.153 - Pressure ulcer of sacral region, stage 3 SNOMED: 690384631, 717760550 (5) CAD (coronary artery disease) ICD Codes: I25.10 - Atherosclerotic heart disease of lime coronary artery without angina pectoris SNOMED: 83887081 (6) Pulmonary hypertension ICD Codes: I27.20 - Pulmonary hypertension, unspecified SNOMED: 53215418 (7) Aortic stenosis ICD Codes: I35.0 - Nonrheumatic aortic (valve) stenosis SNOMED: 14209670 (8) Pacemaker ICD Codes: Z95.0 - Presence of cardiac pacemaker SNOMED: 757614043 (9) Diabetes mellitus, type II ICD Codes: E11.9 - Type 2 diabetes mellitus without complications SNOMED: 78570409 (10) HTN (hypertension) ICD Codes: I10 - Essential (primary) hypertension SNOMED: 03045174 (11) Alzheimer's dementia ICD Codes: G30.9 - Alzheimer's disease, unspecified; F02.80 - Dementia in other diseases classified elsewhere without behavioral disturbance SNOMED: 39925086 Assessment/Plan symptomatic treatment f/u ortho recommendations wound care consult nutrition evaluation social service consult check electrolytes Rod Mancera MD Apr 05, 2018 10:33
[2018-04-05] MEDS ORDERED: Haloperidol 5mg/ml Inj IM PRN (10:45)
[2018-04-05 12:00] VITALS: BP 130/80
--- NOTE | 2018-04-05 12:51 | General Progress Note ---
Assessment/Plan Problem List: (1) encephalopathy due to metabolic diorder (2) Psychosis ICD Codes: F29 - Unspecified psychosis not due to a substance or known physiological condition SNOMED: 61277949 (3) Alzheimer's dementia ICD Codes: G30.9 - Alzheimer's disease, unspecified; F02.80 - Dementia in other diseases classified elsewhere without behavioral disturbance SNOMED: 66062008 Status: unchanged Assessment/Plan trazadone 50mg qhs klomopin .5mg q 6hr prn the pt lacks capacity to make decisions. Subjective Neurologic/Psychiatric: Reports: anxiety, depressed, emotional problems Allergies: Coded Allergies: No Known Allergies (Unverified , 08/10/13) Objective Last 24 Hour Vital Signs Date Time Temp Pulse Resp B/P (MAP) Pulse Ox O2 Delivery O2 Flow Rate FiO2 04/05/18 12:00 98.1 80 18 130/80 (97) 98 04/05/18 09:05 143/84 04/05/18 09:05 77 143/84 04/05/18 08:16 Room Air Room Air 04/05/18 08:00 98.0 77 19 143/84 (103) 97 04/05/18 05:52 134/64 04/05/18 04:00 97.4 74 18 134/64 (87) 95 04/05/18 00:12 98.0 80 20 163/85 (111) 96 04/04/18 21:11 Room Air Room Air 04/04/18 20:51 147/67 04/04/18 20:24 70 147/67 04/04/18 20:00 98.3 70 20 147/67 (93) 99 04/04/18 15:52 98.3 63 16 127/69 (88) 99 04/04/18 13:20 160/68 Intake and Output 04/04/18 04/05/18 19:00 07:00 Intake Total 354 ml 118 ml Balance 354 ml 118 ml Intake Oral 354 ml 118 ml # Voids 4 6 # Bowel Movements 1 7 Laboratory Tests 04/05/18 07:16: White Blood Count 7.8, Red Blood Count 3.39L, Hemoglobin 8.8L, Hematocrit 28.8L , Mean Corpuscular Volume 85, Mean Corpuscular Hemoglobin 26.0L, Mean Corpuscular Hemoglobin Concent 30.7L, Red Cell Distribution Width 16.7H, Platelet Count 467H, Mean Platelet Volume 6.8, Neutrophils (%) (Auto) 73.0, Lymphocytes (%) (Auto) 17.6L, Monocytes (%) (Auto) 8.9, Eosinophils (%) (Auto) 0.2, Basophils (%) (Auto) 0.4, Sodium Level 141, Potassium Level 3.5, Chloride Level 105, Carbon Dioxide Level 27, Anion Gap 9, Blood Urea Nitrogen 12, Creatinine 0.7, Estimat Glomerular Filtration Rate , Glucose Level 107H, Calcium Level 8.8, Iron Level 18L, Total Iron Binding Capacity 201L, Percent Iron Saturation 9L, Unsaturated Iron Binding 183 Height (Feet): 5 Height (Inches): 0.00 Weight (Pounds): 100 General Appearance: alert, confused, moderate distress, agitated Lena Bob MD Apr 05, 2018 12:51
--- NOTE | 2018-04-05 14:13 | General Surgery Progress Note ---
General Surgery-Progress Note Subjective Additional Comments no acute events. anemia. iron panel noted. Objective Last 24 Hour Vital Signs Date Time Temp Pulse Resp B/P (MAP) Pulse Ox O2 Delivery O2 Flow Rate FiO2 04/05/18 12:00 98.1 80 18 130/80 (97) 98 04/05/18 09:05 143/84 04/05/18 09:05 77 143/84 04/05/18 08:16 Room Air Room Air 04/05/18 08:00 98.0 77 19 143/84 (103) 97 04/05/18 05:52 134/64 04/05/18 04:00 97.4 74 18 134/64 (87) 95 04/05/18 00:12 98.0 80 20 163/85 (111) 96 04/04/18 21:11 Room Air Room Air 04/04/18 20:51 147/67 04/04/18 20:24 70 147/67 04/04/18 20:00 98.3 70 20 147/67 (93) 99 04/04/18 15:52 98.3 63 16 127/69 (88) 99 I&O Intake and Output 04/04/18 04/05/18 19:00 07:00 Intake Total 354 ml 118 ml Balance 354 ml 118 ml Intake Oral 354 ml 118 ml # Voids 4 6 # Bowel Movements 1 7 Dressing: saturated Wound: other Drains: other Cardiovascular: RSR Respiratory: clear Abdomen: soft, flat, non-tender, present bowel sounds Extremities: other Laboratory Tests Test 04/05/18 07:16 White Blood Count 7.8 K/UL (4.8-10.8) Red Blood Count 3.39 M/UL (4.20-5.40) L Hemoglobin 8.8 G/DL (12.0-16.0) L Hematocrit 28.8 % (37.0-47.0) L Mean Corpuscular Volume 85 FL (80-99) Mean Corpuscular Hemoglobin 26.0 PG (27.0-31.0) L Mean Corpuscular Hemoglobin Concent 30.7 G/DL (32.0-36.0) L Red Cell Distribution Width 16.7 % (11.6-14.8) H Platelet Count 467 K/UL (150-450) H Mean Platelet Volume 6.8 FL (6.5-10.1) Neutrophils (%) (Auto) 73.0 % (45.0-75.0) Lymphocytes (%) (Auto) 17.6 % (20.0-45.0) L Monocytes (%) (Auto) 8.9 % (1.0-10.0) Eosinophils (%) (Auto) 0.2 % (0.0-3.0) Basophils (%) (Auto) 0.4 % (0.0-2.0) Sodium Level 141 MMOL/L (136-145) Potassium Level 3.5 MMOL/L (3.5-5.1) Chloride Level 105 MMOL/L (98-107) Carbon Dioxide Level 27 MMOL/L (21-32) Anion Gap 9 mmol/L (5-15) Blood Urea Nitrogen 12 mg/dL (7-18) Creatinine 0.7 MG/DL (0.55-1.30) Estimat Glomerular Filtration Rate mL/min (>60) Glucose Level 107 MG/DL (74-106) H Calcium Level 8.8 MG/DL (8.5-10.1) Iron Level 18 ug/dL (50-175) L Total Iron Binding Capacity 201 ug/dL (250-450) L Percent Iron Saturation 9 % (15-50) L Unsaturated Iron Binding 183 ug/dL (112-346) Plan Problems: (1) Sacral decubitus ulcer, stage III Assessment & Plan: Full thickness pressure injury to sacral region. multiple areas some which are chronic with some slow resolving areas noted. 2cm x3cm midline sacral full thickness wound with 100% sloth, just right and just left to this there are smaller areas approximately <2cm x <2cm with similar appearing ulcerations. no odor. no significant drainage. no bone or muscle seem to be exposed. 100% sloth. wounds present upon admission and will be cared for during hospital stay Plan: wash wounds daily with NS; apply hydrogel or therahoney followed by foam dressing turn q2h heel protectors air mattress will likely need excisional vs non excisional debridement of sloth down to healthy viable tissue. may consider during hospitalization nutritional support (2) Failure to thrive Assessment & Plan: elderly female with dementia albumin 2 multiple decubitus ulcers nutritional consult increase protein and Caloric intake will need optimization to help heal wounds Sher Younger Apr 05, 2018 14:13
[2018-04-05 15:46] VITALS: BP 144/87
[2018-04-05] MEDS ORDERED: Bisacodyl EC 5mg tab ORAL ONE (16:30)
[2018-04-05] MEDS ORDERED: Magnesium Citrate Liq Btl ORAL ONE (16:30)
--- NOTE | 2018-04-05 16:49 | Diagnostic Imaging Report ---
Indication: Right hip pain Technique: 2 views of the hip Comparison: none Findings: There is superior dislocation of the right hip hemiarthroplasty prosthesis, previously normally situated.. Request only a few bony fragments located medially, could represent fracture fragments but acuity indeterminate although suspect not acute. The acetabulum appears to be intact. The bones are osteoporotic Impression: Positive for superior dislocation of right femoral hemiarthroplasty prosthesis Osteoporosis Findings discussed by phone with patient's nurse at the time of interpretation
--- NOTE | 2018-04-05 18:02 | Internal Med Progress Note ---
Subjective Date of Service: Apr 05, 2018 Physician Name Matthews,Aquilino Attending Physician Carlos Alberto Berkowitz MD Current Medications Medications (Trade) Dose Ordered Sig/Yi Route PRN Reason Start Time Stop Time Status Last Admin Dose Admin Acetaminophen (Tylenol) 650 mg Q6H PRN ORAL Mild Pain/Temp > 100.5 04/02/18 17:15 05/02/18 17:14 Acetaminophen/ Hydrocodone Bitart (Camino 5/325) 1 tab Q6H PRN ORAL Severe Pain (Pain Scale 7-10) 04/02/18 20:30 04/09/18 20:29 04/05/18 09:16 Atenolol (Tenormin) 50 mg Q12HR ORAL 04/02/18 21:00 05/02/18 20:59 04/05/18 09:05 Atorvastatin Calcium (Lipitor) 20 mg BEDTIME ORAL 04/03/18 21:00 05/03/18 20:59 04/04/18 20:24 Clonazepam (KlonoPIN) 0.5 mg Q6H PRN ORAL For Anxiety 04/02/18 17:30 04/09/18 17:29 04/05/18 09:35 Clonidine HCl (Catapres Tab) 0.1 mg EVERY 8 HOURS ORAL 04/02/18 22:00 05/02/18 21:59 04/05/18 14:12 Dicyclomine HCl (Bentyl) 10 mg QID ORAL 04/02/18 18:00 05/02/18 17:59 04/05/18 17:49 Haloperidol Lactate (Haldol) 5 mg Q6H PRN IM Agitation 04/05/18 10:45 05/05/18 10:44 Lorazepam (Ativan 2mg/ml 1ml) 1 mg Q4H PRN IM For Anxiety 04/05/18 10:45 04/12/18 10:44 Losartan Potassium (Cozaar) 50 mg DAILY ORAL 04/06/18 09:00 05/03/18 08:59 Metformin HCl (Glucophage) 500 mg BID ORAL 04/03/18 09:00 05/03/18 08:59 04/05/18 17:49 Potassium Chloride (K-Dur) 10 meq DAILY ORAL 04/03/18 09:00 05/03/18 08:59 04/05/18 09:04 Sitagliptin Phosphate (Januvia) 50 mg ACBREAKFAST ORAL 04/03/18 06:30 05/03/18 06:29 04/05/18 05:55 Trazodone HCl (Desyrel) 50 mg BEDTIME ORAL 04/02/18 21:00 05/02/18 20:59 04/04/18 20:24 Vitamin D (Vitamin D) 5,000 intlu DAILY ORAL 04/03/18 09:00 05/03/18 08:59 04/05/18 09:04 Allergies: Coded Allergies: No Known Allergies (Unverified , 08/10/13) ROS Limited/Unobtainable: No Constitutional: Reports: no symptoms HEENT: Reports: no symptoms Cardiovascular: Reports: no symptoms Respiratory: Reports: no symptoms Gastrointestinal/Abdominal: Reports: no symptoms Genitourinary: Reports: no symptoms Neurologic/Psychiatric: Reports: no symptoms Subjective 82 YO F admitted with generalized weakness. Cover for Int Med-Dr Berkowitz. Await post acute care placement Objective Last Vital Signs Date Time Temp Pulse Resp B/P (MAP) Pulse Ox O2 Delivery O2 Flow Rate FiO2 04/05/18 15:46 97.5 99 20 144/87 (106) 98 04/05/18 08:16 Room Air Room Air 04/02/18 18:13 98 Laboratory Tests Test 04/05/18 07:16 White Blood Count 7.8 K/UL (4.8-10.8) Red Blood Count 3.39 M/UL (4.20-5.40) L Hemoglobin 8.8 G/DL (12.0-16.0) L Hematocrit 28.8 % (37.0-47.0) L Mean Corpuscular Volume 85 FL (80-99) Mean Corpuscular Hemoglobin 26.0 PG (27.0-31.0) L Mean Corpuscular Hemoglobin Concent 30.7 G/DL (32.0-36.0) L Red Cell Distribution Width 16.7 % (11.6-14.8) H Platelet Count 467 K/UL (150-450) H Mean Platelet Volume 6.8 FL (6.5-10.1) Neutrophils (%) (Auto) 73.0 % (45.0-75.0) Lymphocytes (%) (Auto) 17.6 % (20.0-45.0) L Monocytes (%) (Auto) 8.9 % (1.0-10.0) Eosinophils (%) (Auto) 0.2 % (0.0-3.0) Basophils (%) (Auto) 0.4 % (0.0-2.0) Sodium Level 141 MMOL/L (136-145) Potassium Level 3.5 MMOL/L (3.5-5.1) Chloride Level 105 MMOL/L (98-107) Carbon Dioxide Level 27 MMOL/L (21-32) Anion Gap 9 mmol/L (5-15) Blood Urea Nitrogen 12 mg/dL (7-18) Creatinine 0.7 MG/DL (0.55-1.30) Estimat Glomerular Filtration Rate mL/min (>60) Glucose Level 107 MG/DL (74-106) H Calcium Level 8.8 MG/DL (8.5-10.1) Iron Level 18 ug/dL (50-175) L Total Iron Binding Capacity 201 ug/dL (250-450) L Percent Iron Saturation 9 % (15-50) L Unsaturated Iron Binding 183 ug/dL (112-346) Intake and Output 04/04/18 04/05/18 19:00 07:00 Intake Total 354 ml 118 ml Balance 354 ml 118 ml Intake Oral 354 ml 118 ml # Voids 4 6 # Bowel Movements 1 7 Objective General Appearance: WD/WN, mild distress, agitated EENT: PERRL/EOMI, normal ENT inspection Neck: non-tender, normal alignment, supple, normal inspection Cardiovascular: normal peripheral pulses, normal rate, regular rhythm, no gallop/murmur, no JVD Respiratory/Chest: chest wall non-tender, lungs clear, normal breath sounds, no accessory muscle use, respiratory distress Abdomen: normal bowel sounds, non tender, soft, no organomegaly, no mass Extremities: normal range of motion Neurologic: business transformation consultant II-XII grossly normal Skin: normal pigmentation, warm/dry Assessment/Plan Problem List: (1) Generalized weakness Assessment & Plan: ?deconditioning due to recent hip surgery? Await PT/OT eval (2) Diabetes mellitus, type II Assessment & Plan: Continue metformin and januvia (3) HTN (hypertension) Assessment & Plan: continue atenolol and cozaar (4) Sick sinus syndrome Assessment & Plan: S/P pacemaker (5) Aortic stenosis (6) Pulmonary hypertension (7) Alzheimer's dementia (8) Hypercholesterolemia (9) Sacral decubitus ulcer, stage II Assessment & Plan: see wound care note. Status: not improved Assessment/Plan Discharge planning: post acute care. Aquilino Matthews MD Apr 05, 2018 18:02
[2018-04-05 20:00] VITALS: BP 115/67
[2018-04-05] MEDS: TraZODone 50mg tab ORAL SCH (21:00)
[2018-04-05] MEDS: Atorvastatin 20mg tab ORAL SCH (21:00)
[2018-04-05] MEDS ORDERED: Fleet's Enema 133ml RECTAL ONE (21:45)
[2018-04-05] MEDS ORDERED: Sorbitol Solution UD 30ml ORAL ONE (22:30)
--- NOTE | 2018-04-05 23:41 | General Progress Note ---
Assessment/Plan Assessment/Plan Assessment - constipation, rectal loading - hematochezia, likely hemorrhoidal - Anemia - agitation Recommendations - clear liquid diet - GI laxative - Colonoscopy in am - WIll log-roll patient given recent hip surgery - Monitor H&H - Check Fe panel Subjective Allergies: Coded Allergies: No Known Allergies (Unverified , 08/10/13) Subjective still agitated this am (+) BM d/w daughter - wants to proceed with colonoscopy patient refusing some of the GI prep Objective Last 24 Hour Vital Signs Date Time Temp Pulse Resp B/P (MAP) Pulse Ox O2 Delivery O2 Flow Rate FiO2 04/05/18 21:00 59 115/67 04/05/18 21:00 Room Air Room Air 04/05/18 20:00 97.3 59 17 115/67 (83) 93 04/05/18 15:46 97.5 99 20 144/87 (106) 98 04/05/18 14:12 130/80 04/05/18 12:00 98.1 80 18 130/80 (97) 98 04/05/18 09:05 143/84 04/05/18 09:05 77 143/84 04/05/18 08:16 Room Air Room Air 04/05/18 08:00 98.0 77 19 143/84 (103) 97 04/05/18 05:52 134/64 04/05/18 04:00 97.4 74 18 134/64 (87) 95 04/05/18 00:12 98.0 80 20 163/85 (111) 96 Intake and Output 04/04/18 04/05/18 19:00 07:00 Intake Total 354 ml 118 ml Balance 354 ml 118 ml Intake Oral 354 ml 118 ml # Voids 4 6 # Bowel Movements 1 7 Laboratory Tests 04/05/18 07:16: White Blood Count 7.8, Red Blood Count 3.39L, Hemoglobin 8.8L, Hematocrit 28.8L , Mean Corpuscular Volume 85, Mean Corpuscular Hemoglobin 26.0L, Mean Corpuscular Hemoglobin Concent 30.7L, Red Cell Distribution Width 16.7H, Platelet Count 467H, Mean Platelet Volume 6.8, Neutrophils (%) (Auto) 73.0, Lymphocytes (%) (Auto) 17.6L, Monocytes (%) (Auto) 8.9, Eosinophils (%) (Auto) 0.2, Basophils (%) (Auto) 0.4, Sodium Level 141, Potassium Level 3.5, Chloride Level 105, Carbon Dioxide Level 27, Anion Gap 9, Blood Urea Nitrogen 12, Creatinine 0.7, Estimat Glomerular Filtration Rate , Glucose Level 107H, Calcium Level 8.8, Iron Level 18L, Total Iron Binding Capacity 201L, Percent Iron Saturation 9L, Unsaturated Iron Binding 183 Height (Feet): 5 Height (Inches): 0.00 Weight (Pounds): 100 Objective Elderly WW NCAT CTA RRR Abd NT ND ext no edema Thalia Grant MD Apr 05, 2018 23:41
[2018-04-06] VITALS (16 sets, daily range): BP systolic 108–146; BP diastolic 55–86
--- NOTE | 2018-04-06 00:30 | Consultation ---
DATE OF CONSULTATION: 04/05/2018 CONSULTING PHYSICIAN: Shen Lopez M.D. CHIEF COMPLAINT: Right hip pain. HISTORY OF PRESENT ILLNESS: The patient is a pleasant female who is well known to me. She underwent right hip hemiarthroplasty. Subsequently underwent open reduction of the dislocated hemiarthroplasty. Subsequently and transferred home where she was doing well. She subsequently had another fall now presents for further care and recommendation. PAST MEDICAL HISTORY: Reviewed per intake chart. SURGICAL HISTORY: Reviewed per intake chart. MEDICATIONS: Reviewed per intake chart. PHYSICAL EXAMINATION: Showed an internally rotated right hip. Posterior calf is soft. Incisions clean, dry, and intact. ASSESSMENT: Right hip dislocated hemiarthroplasty. DISCUSSION: At this point, she underwent an uneventful right hip hemiarthroplasty. She had to undergo an open reduction. Clearly, she dislocated her hip given that she has been noncompliant. Therefore, I recommend at this point as to proceed with a conversion to a more constrained implant like total hip arthroplasty. Risks, limitations, expectations, and complications of procedure were discussed in detail with her daughter, Vesna. All questions were addressed. We will proceed with surgery tomorrow. She is medically cleared for surgery. Shen Lopez M.D. DR: SUMEET JOB#: [id number] CC:
[2018-04-06] MEDS ORDERED: Fleet's Enema 133ml RECTAL ONE (06:00)
[2018-04-06 06:01] LABS: BASOPHILS % (AUTO) 0.2 % (0.0-2.0); EOSINOPHILS % (AUTO) 0.3 % (0.0-3.0); HEMOGLOBIN 8.9 G/DL (12.0-16.0); LYMPHOCYTES % (AUTO) 18.3 % (20.0-45.0); MEAN CORPUSCULAR VOLUME 84 FL (80-99); MONOCYTES % (AUTO) 9.1 % (1.0-10.0); NEUTROPHILS % (AUTO) 72.1 % (45.0-75.0); PLATELET COUNT 520 K/UL (150-450); RED BLOOD COUNT 3.32 M/UL (4.20-5.40); RED CELL DISTRIBUTION WIDTH 16.4 % (11.6-14.8); WHITE BLOOD COUNT 7.4 K/UL (4.8-10.8)
[2018-04-06] MEDS: sitaGLIPtin 50mg tab ORAL SCH (06:15)
[2018-04-06 06:21] LABS: ALANINE AMINOTRANSFERASE 12 U/L (12-78); ALBUMIN 2.4 G/DL (3.4-5.0); ALBUMIN/GLOBULIN RATIO 0.6 (1.0-2.7); ALKALINE PHOSPHATASE 89 U/L (46-116); ANION GAP 7 mmol/L (5-15); ASPARTATE AMINO TRANSFERASE 20 U/L (15-37); BILIRUBIN,TOTAL 0.5 MG/DL (0.2-1.0); BLOOD UREA NITROGEN 12 mg/dL (7-18); CALCIUM 8.6 MG/DL (8.5-10.1); CARBON DIOXIDE 28 MMOL/L (21-32); CHLORIDE 108 MMOL/L (98-107); CREATININE 0.7 MG/DL (0.55-1.30); POTASSIUM 3.1 MMOL/L (3.5-5.1); SODIUM 143 MMOL/L (136-145)
[2018-04-06] MEDS ORDERED: Midazolam 2mg/2ml Inj IVP PRN ×2 (06:30→18:15)
[2018-04-06] MEDS ORDERED: Atropine Inj 1mg/10ml Syr IV PRN (06:30)
[2018-04-06] MEDS ORDERED: fentaNYL 100 mcg/2 mL IV PRN ×2 (06:30→18:15)
[2018-04-06] MEDS ORDERED: DiphenhydrAMINE 50mg/ml Inj IVP PRN ×2 (06:30→18:15)
--- NOTE | 2018-04-06 06:47 | Anethesia Preoperative Eval ---
Anesthesia Pre-op PMH/ROS General Date of Evaluation: Apr 06, 2018 Time of Evaluation: 06:30 Anesthesiologist: nalini ASA Score: ASA 4 Mallampati Score Class I : Soft palate, uvula, fauces, pillars visible Class II: Soft palate, uvula, fauces visible Class III: Soft palate, base of uvula visible Class IV: Only hard plate visible Mallampati Classification: Class II Surgeon: asher Diagnosis: hematochezia, constipation Surgical Procedure: colonoscopy Anesthesia History: none Family History: no anesthesia problems Allergies: Coded Allergies: No Known Allergies (Unverified , 08/10/13) Medications: see eMAR Patient NPO?: Yes Past Medical History Cardiovascular: Reports: HTN, CAD, NE, arrhythmia - sick sinus syndrome, other - chf, sick sinus syndrome, aortic stenosis, cabgx3, pacemaker Pulmonary: Reports: asthma, other - pulmonary htn Gastrointestinal/Genitourinary: Reports: other - crohn's disease Neurologic/Psychiatric: Reports: other - alzheimer's disease,ftt, psychosis Endocrine: Reports: DM Hematology/Immune: Reports: anemia, other - contact isolation MRSA nares Musculoskeletal/Integumentary: Reports: other - pelvic fx, right hip fx, stage 3 decubitus ulcer PSxH Narrative: right hip fracture repair,and revision Anesthesia Pre-op Phys. Exam Physician Exam Last Vital Signs Date Time Temp Pulse Resp B/P (MAP) Pulse Ox O2 Delivery O2 Flow Rate FiO2 04/06/18 04:00 97.0 66 17 140/66 (90) 92 04/05/18 21:00 Room Air Room Air 04/02/18 18:13 98 Constitutional: NAD Neurologic: CN 2-12 intact Cardiovascular: RRR Respiratory: CTA Gastrointestinal: S/NT/ND Airway Exam Mallampati Score: Class II MO: limited Neck: flexible TMD: 2fb ROM: limited Teeth: intact Anesthesia Pre-op A/P Labs Hematology Test 04/05/18 07:16 04/06/18 05:15 White Blood Count 7.8 K/UL (4.8-10.8) 7.4 K/UL (4.8-10.8) Red Blood Count 3.39 M/UL (4.20-5.40) L 3.32 M/UL (4.20-5.40) L Hemoglobin 8.8 G/DL (12.0-16.0) L 8.9 G/DL (12.0-16.0) L Hematocrit 28.8 % (37.0-47.0) L 28.0 % (37.0-47.0) L Mean Corpuscular Volume 85 FL (80-99) 84 FL (80-99) Mean Corpuscular Hemoglobin 26.0 PG (27.0-31.0) L 26.8 PG (27.0-31.0) L Mean Corpuscular Hemoglobin Concent 30.7 G/DL (32.0-36.0) L 31.9 G/DL (32.0-36.0) L Red Cell Distribution Width 16.7 % (11.6-14.8) H 16.4 % (11.6-14.8) H Platelet Count 467 K/UL (150-450) H 520 K/UL (150-450) H Mean Platelet Volume 6.8 FL (6.5-10.1) 6.9 FL (6.5-10.1) Neutrophils (%) (Auto) 73.0 % (45.0-75.0) 72.1 % (45.0-75.0) Lymphocytes (%) (Auto) 17.6 % (20.0-45.0) L 18.3 % (20.0-45.0) L Monocytes (%) (Auto) 8.9 % (1.0-10.0) 9.1 % (1.0-10.0) Eosinophils (%) (Auto) 0.2 % (0.0-3.0) 0.3 % (0.0-3.0) Basophils (%) (Auto) 0.4 % (0.0-2.0) 0.2 % (0.0-2.0) Chemistry Test 04/05/18 07:16 04/06/18 05:15 Sodium Level 141 MMOL/L (136-145) Pending Potassium Level 3.5 MMOL/L (3.5-5.1) Pending Chloride Level 105 MMOL/L (98-107) Pending Carbon Dioxide Level 27 MMOL/L (21-32) Pending Anion Gap 9 mmol/L (5-15) Blood Urea Nitrogen 12 mg/dL (7-18) Pending Creatinine 0.7 MG/DL (0.55-1.30) Pending Estimat Glomerular Filtration Rate mL/min (>60) Pending Glucose Level 107 MG/DL (74-106) H Pending Calcium Level 8.8 MG/DL (8.5-10.1) Pending Iron Level 18 ug/dL (50-175) L Total Iron Binding Capacity 201 ug/dL (250-450) L Percent Iron Saturation 9 % (15-50) L Unsaturated Iron Binding 183 ug/dL (112-346) Phosphorus Level Pending Magnesium Level Pending Total Bilirubin Pending Aspartate Amino Transf (AST/SGOT) Pending Alanine Aminotransferase (ALT/SGPT) Pending Alkaline Phosphatase Pending Total Protein Pending Albumin Pending Globulin Pending Risk Assessment & Plan Assessment: asa4 Plan: mac Status Change Before Surgery: No Pre-Antibiotics Drug: Regine Cohen MD Apr 06, 2018 06:47
[2018-04-06] MEDS ORDERED: Lidocaine 1% MPF 10mg/ml 5ml ONE (07:30)
[2018-04-06] MEDS ORDERED: Propofol 200mg/20ml IV ONE ×2 (07:30→17:00)
[2018-04-06] MEDS ORDERED: NS 500ML IVPB ONE (07:50)
--- NOTE | 2018-04-06 07:58 | General Progress Note ---
Assessment/Plan Assessment/Plan Assessment - constipation, rectal loading - hematochezia, likely hemorrhoidal, r/o other - low K and Mg - Anemia - agitation/OBS - dislocated hip Recommendations - NPO - replace K and MG - Colonoscopy today - will keep and do procedure on supine position - Monitor H&H - re check lytes Subjective Allergies: Coded Allergies: No Known Allergies (Unverified , 08/10/13) Subjective discussed with IM last night and with ortho this am discussed with daughter this am patient did not accept all of her GI prep yesterday (+) blood in BM this am anemic but stable scheduled for hip surgery tonight K and Mg low - replacements ordered Objective Last 24 Hour Vital Signs Date Time Temp Pulse Resp B/P (MAP) Pulse Ox O2 Delivery O2 Flow Rate FiO2 04/06/18 04:00 97.0 66 17 140/66 (90) 92 04/06/18 00:00 97.0 60 19 121/67 (85) 98 04/05/18 21:00 59 115/67 04/05/18 21:00 Room Air Room Air 04/05/18 20:00 97.3 59 17 115/67 (83) 93 04/05/18 15:46 97.5 99 20 144/87 (106) 98 04/05/18 14:12 130/80 04/05/18 12:00 98.1 80 18 130/80 (97) 98 04/05/18 09:05 143/84 04/05/18 09:05 77 143/84 04/05/18 08:16 Room Air Room Air 04/05/18 08:00 98.0 77 19 143/84 (103) 97 Intake and Output 04/05/18 04/06/18 19:00 07:00 Intake Total 500 ml Balance 500 ml Other 500 ml # Voids 4 6 # Bowel Movements 2 8 Laboratory Tests 04/06/18 05:15: White Blood Count 7.4, Red Blood Count 3.32L, Hemoglobin 8.9L, Hematocrit 28.0L , Mean Corpuscular Volume 84, Mean Corpuscular Hemoglobin 26.8L, Mean Corpuscular Hemoglobin Concent 31.9L, Red Cell Distribution Width 16.4H, Platelet Count 520H, Mean Platelet Volume 6.9, Neutrophils (%) (Auto) 72.1, Lymphocytes (%) (Auto) 18.3L, Monocytes (%) (Auto) 9.1, Eosinophils (%) (Auto) 0.3, Basophils (%) (Auto) 0.2, Sodium Level 143, Potassium Level 3.1L, Chloride Level 108H, Carbon Dioxide Level 28, Anion Gap 7, Blood Urea Nitrogen 12, Creatinine 0.7, Estimat Glomerular Filtration Rate , Glucose Level 106, Calcium Level 8.6, Phosphorus Level 3.0, Magnesium Level 1.4L, Total Bilirubin 0.5, Aspartate Amino Transf (AST/SGOT) 20, Alanine Aminotransferase (ALT/SGPT) 12, Alkaline Phosphatase 89, Total Protein 6.4, Albumin 2.4L, Globulin 4.0, Albumin/ Globulin Ratio 0.6L Height (Feet): 5 Height (Inches): 5.00 Weight (Pounds): 121 Objective Elderly WW NCAT CTA RRR Abd NT ND ext no edema Thalia Grant MD Apr 06, 2018 07:58
--- NOTE | 2018-04-06 07:58 | Pre-Procedure Note/Attestation ---
Pre-Procedure Note/Attestation Complete Prior to Procedure Planned Procedure: not applicable Procedure Narrative: colonoscopy Indications for Procedure Pre-Operative Diagnosis: GI Bleed Attestation I attest that I discussed the nature of the procedure; its benefits; risks and complications; and alternatives (and the risks and benefits of such alternatives ), prior to the procedure, with the patient (or the patient's legal sales representative facility services). I attest that, if there was a reasonable possibility of needing a blood transfusion, the patient (or the patient's legal sales representative facility services) was given the [facility] standardized written summary, pursuant to the Cheng Reggie Blood Safety Act ([place] Health and Safety Code # 1645, as amended). I attest that I re-evaluated the patient just prior to the surgery and that there has been no change in the patient's H&P, except as documented below: Thalia Grant MD Apr 06, 2018 07:58
--- NOTE | 2018-04-06 08:20 | General Progress Note ---
Assessment/Plan Assessment/Plan POST PROCEDURE ADDENDUM - Procedure performed in supine position - poor colonic preparation - only able to do a flexible sig to 30 cm - retroflex view of rectum showed ulcerated hemorrhoids, presumed site of rectal bleeding - solid stool above rectum is green, therefore do not suspect any other source for the blood - Procedure time appox 5 minutes Subjective Allergies: Coded Allergies: No Known Allergies (Unverified , 08/10/13) Objective Last 24 Hour Vital Signs Date Time Temp Pulse Resp B/P (MAP) Pulse Ox O2 Delivery O2 Flow Rate FiO2 04/06/18 04:00 97.0 66 17 140/66 (90) 92 04/06/18 00:00 97.0 60 19 121/67 (85) 98 04/05/18 21:00 59 115/67 04/05/18 21:00 Room Air Room Air 04/05/18 20:00 97.3 59 17 115/67 (83) 93 04/05/18 15:46 97.5 99 20 144/87 (106) 98 04/05/18 14:12 130/80 04/05/18 12:00 98.1 80 18 130/80 (97) 98 04/05/18 09:05 143/84 04/05/18 09:05 77 143/84 Intake and Output 04/05/18 04/06/18 18:59 06:59 Intake Total 500 ml Balance 500 ml Other 500 ml # Voids 4 6 # Bowel Movements 2 8 Laboratory Tests 04/06/18 05:15: White Blood Count 7.4, Red Blood Count 3.32L, Hemoglobin 8.9L, Hematocrit 28.0L , Mean Corpuscular Volume 84, Mean Corpuscular Hemoglobin 26.8L, Mean Corpuscular Hemoglobin Concent 31.9L, Red Cell Distribution Width 16.4H, Platelet Count 520H, Mean Platelet Volume 6.9, Neutrophils (%) (Auto) 72.1, Lymphocytes (%) (Auto) 18.3L, Monocytes (%) (Auto) 9.1, Eosinophils (%) (Auto) 0.3, Basophils (%) (Auto) 0.2, Sodium Level 143, Potassium Level 3.1L, Chloride Level 108H, Carbon Dioxide Level 28, Anion Gap 7, Blood Urea Nitrogen 12, Creatinine 0.7, Estimat Glomerular Filtration Rate , Glucose Level 106, Calcium Level 8.6, Phosphorus Level 3.0, Magnesium Level 1.4L, Total Bilirubin 0.5, Aspartate Amino Transf (AST/SGOT) 20, Alanine Aminotransferase (ALT/SGPT) 12, Alkaline Phosphatase 89, Total Protein 6.4, Albumin 2.4L, Globulin 4.0, Albumin/ Globulin Ratio 0.6L Height (Feet): 5 Height (Inches): 5.00 Weight (Pounds): 121 Thalia Grant MD Apr 06, 2018 08:20
[2018-04-06] MEDS: Losartan 50mg tab ORAL SCH (08:23)
[2018-04-06] MEDS: Dicyclomine 10mg Cap ORAL SCH ×4 (08:23→21:11)
[2018-04-06] MEDS: Vitamin D 1000 IU Tab ORAL SCH (08:24)
[2018-04-06] MEDS: metFORMIN 500mg tab ORAL SCH ×2 (08:24→18:00)
[2018-04-06] MEDS ORDERED: Potassium Chloride 10 MEQ in D5 1/2NS 1,000 ML IV SCH (09:00)
--- NOTE | 2018-04-06 09:30 | Immediate Post-Op Evaluation ---
Immediate Post-Op Evalulation Immediate Post-Op Evalulation Procedure: flexible sigmoidoscopy Date of Evaluation: Apr 06, 2018 Time of Evaluation: 08:37 IV Fluids: 250ml 0.9ns Blood Products: none Estimated Blood Loss: negligible Blood Pressure Systolic: 146 Blood Pressure Diastolic: 69 Pulse Rate: 57 Respiratory Rate: 18 O2 Sat by Pulse Oximetry: 100 Temperature (Fahrenheit): 97.7 Pain Score (1-10): 0 Nausea: No Vomiting: No Complications none Patient Status: awake, reacts, patent Hydration Status: adequate Drug: Regine Cohen MD Apr 06, 2018 09:30
--- NOTE | 2018-04-06 09:32 | 48 Hour Post Anesthesia Eval ---
Post Anesthesia Evaluation Procedure: flexible sigmoidoscopy Date of Evaluation: Apr 06, 2018 Time of Evaluation: 08:39 Blood Pressure Systolic: 144 0: 69 Pulse Rate: 66 Respiratory Rate: 18 Temperature (Fahrenheit): 97.7 O2 Sat by Pulse Oximetry: 100 Airway: patent Nausea: No Vomiting: No Pain Intensity: 0 Hydration Status: adequate Cardiopulmonary Status: stable Mental Status/LOC: patient returned to baseline Post-Anesthesia Complications: none Follow-up care needed: N/A Regine Dominique MD Apr 06, 2018 09:32
--- NOTE | 2018-04-06 10:48 | General Surgery Progress Note ---
General Surgery-Progress Note Subjective Additional Comments no acute events. looks more comfortable today Objective Last 24 Hour Vital Signs Date Time Temp Pulse Resp B/P (MAP) Pulse Ox O2 Delivery O2 Flow Rate FiO2 04/06/18 09:50 97.7 70 16 139/65 (89) 99 04/06/18 09:32 66 18 100 04/06/18 09:30 57 18 100 04/06/18 09:13 Room Air Room Air 04/06/18 08:47 62 18 133/69 100 Simple Mask 8 04/06/18 08:35 66 18 144/73 100 Simple Mask 8 04/06/18 08:30 63 18 134/69 100 Simple Mask 8 04/06/18 08:25 97.7 57 18 146/69 100 Simple Mask 8 04/06/18 04:00 97.0 66 17 140/66 (90) 92 04/06/18 00:00 97.0 60 19 121/67 (85) 98 04/05/18 21:00 59 115/67 04/05/18 21:00 Room Air Room Air 04/05/18 20:00 97.3 59 17 115/67 (83) 93 04/05/18 15:46 97.5 99 20 144/87 (106) 98 04/05/18 14:12 130/80 04/05/18 12:00 98.1 80 18 130/80 (97) 98 I&O Intake and Output 04/05/18 04/06/18 18:59 06:59 Intake Total 500 ml Balance 500 ml Other 500 ml # Voids 4 6 # Bowel Movements 2 8 Dressing: saturated Wound: other Drains: other Cardiovascular: RSR Respiratory: clear Abdomen: soft, flat, non-tender, present bowel sounds Extremities: other Laboratory Tests Test 04/06/18 05:15 White Blood Count 7.4 K/UL (4.8-10.8) Red Blood Count 3.32 M/UL (4.20-5.40) L Hemoglobin 8.9 G/DL (12.0-16.0) L Hematocrit 28.0 % (37.0-47.0) L Mean Corpuscular Volume 84 FL (80-99) Mean Corpuscular Hemoglobin 26.8 PG (27.0-31.0) L Mean Corpuscular Hemoglobin Concent 31.9 G/DL (32.0-36.0) L Red Cell Distribution Width 16.4 % (11.6-14.8) H Platelet Count 520 K/UL (150-450) H Mean Platelet Volume 6.9 FL (6.5-10.1) Neutrophils (%) (Auto) 72.1 % (45.0-75.0) Lymphocytes (%) (Auto) 18.3 % (20.0-45.0) L Monocytes (%) (Auto) 9.1 % (1.0-10.0) Eosinophils (%) (Auto) 0.3 % (0.0-3.0) Basophils (%) (Auto) 0.2 % (0.0-2.0) Sodium Level 143 MMOL/L (136-145) Potassium Level 3.1 MMOL/L (3.5-5.1) L Chloride Level 108 MMOL/L (98-107) H Carbon Dioxide Level 28 MMOL/L (21-32) Anion Gap 7 mmol/L (5-15) Blood Urea Nitrogen 12 mg/dL (7-18) Creatinine 0.7 MG/DL (0.55-1.30) Estimat Glomerular Filtration Rate mL/min (>60) Glucose Level 106 MG/DL (74-106) Calcium Level 8.6 MG/DL (8.5-10.1) Phosphorus Level 3.0 MG/DL (2.5-4.9) Magnesium Level 1.4 MG/DL (1.8-2.4) L Total Bilirubin 0.5 MG/DL (0.2-1.0) Aspartate Amino Transf (AST/SGOT) 20 U/L (15-37) Alanine Aminotransferase (ALT/SGPT) 12 U/L (12-78) Alkaline Phosphatase 89 U/L (46-116) Total Protein 6.4 G/DL (6.4-8.2) Albumin 2.4 G/DL (3.4-5.0) L Globulin 4.0 g/dL Albumin/Globulin Ratio 0.6 (1.0-2.7) L Plan Problems: (1) Sacral decubitus ulcer, stage III Assessment & Plan: Full thickness pressure injury to sacral region. multiple areas some which are chronic with some slow resolving areas noted. 2cm x3cm midline sacral full thickness wound with 100% sloth, just right and just left to this there are smaller areas approximately <2cm x <2cm with similar appearing ulcerations. no odor. no significant drainage. no bone or muscle seem to be exposed. 100% sloth. wounds present upon admission and will be cared for during hospital stay Plan: wash wounds daily with NS; apply hydrogel or therahoney followed by foam dressing turn q2h heel protectors air mattress will likely need excisional vs non excisional debridement of sloth down to healthy viable tissue. may consider during hospitalization nutritional support (2) Failure to thrive Assessment & Plan: elderly female with dementia albumin 2 multiple decubitus ulcers nutritional consult increase protein and Caloric intake will need optimization to help heal wounds Sher Younger Apr 06, 2018 10:48
[2018-04-06] MEDS: Norco 5mg/325mg tab ORAL PRN (11:21)
--- NOTE | 2018-04-06 11:21 | Pulmonology Progress Note ---
Assessment/Plan Problems: (1) Hip dislocation, right (2) Sacral decubitus ulcer, stage III (3) Protein-calorie malnutrition, severe (4) Psychosis (5) CAD (coronary artery disease) (6) Pulmonary hypertension (7) Aortic stenosis (8) Pacemaker (9) Diabetes mellitus, type II (10) HTN (hypertension) (11) Alzheimer's dementia Assessment/Plan symptomatic treatment f/u ortho recommendations wound care consult nutrition evaluation social service consult check electrolytes dvt prophylaxis Subjective ROS Limited/Unobtainable: No Constitutional: Reports: no symptoms Respiratory: Reports: no symptoms Allergies: Coded Allergies: No Known Allergies (Unverified , 08/10/13) Objective Last 24 Hour Vital Signs Date Time Temp Pulse Resp B/P (MAP) Pulse Ox O2 Delivery O2 Flow Rate FiO2 04/06/18 09:50 97.7 70 16 139/65 (89) 99 04/06/18 09:32 66 18 100 04/06/18 09:30 57 18 100 04/06/18 09:13 Room Air Room Air 04/06/18 08:47 62 18 133/69 100 Simple Mask 8 04/06/18 08:35 66 18 144/73 100 Simple Mask 8 04/06/18 08:30 63 18 134/69 100 Simple Mask 8 04/06/18 08:25 97.7 57 18 146/69 100 Simple Mask 8 04/06/18 04:00 97.0 66 17 140/66 (90) 92 04/06/18 00:00 97.0 60 19 121/67 (85) 98 04/05/18 21:00 59 115/67 04/05/18 21:00 Room Air Room Air 04/05/18 20:00 97.3 59 17 115/67 (83) 93 04/05/18 15:46 97.5 99 20 144/87 (106) 98 04/05/18 14:12 130/80 04/05/18 12:00 98.1 80 18 130/80 (97) 98 Intake and Output 04/05/18 04/06/18 18:59 06:59 Intake Total 500 ml Balance 500 ml Other 500 ml # Voids 4 6 # Bowel Movements 2 8 General Appearance: cachetic HEENT: normocephalic, atraumatic Respiratory/Chest: chest wall non-tender, normal breath sounds, chest wall tender Breasts: no masses Cardiovascular: normal rate Abdomen: normal bowel sounds, no organomegaly Genitourinary: normal external genitalia Skin: no rash Laboratory Tests 04/06/18 05:15: White Blood Count 7.4, Red Blood Count 3.32L, Hemoglobin 8.9L, Hematocrit 28.0L , Mean Corpuscular Volume 84, Mean Corpuscular Hemoglobin 26.8L, Mean Corpuscular Hemoglobin Concent 31.9L, Red Cell Distribution Width 16.4H, Platelet Count 520H, Mean Platelet Volume 6.9, Neutrophils (%) (Auto) 72.1, Lymphocytes (%) (Auto) 18.3L, Monocytes (%) (Auto) 9.1, Eosinophils (%) (Auto) 0.3, Basophils (%) (Auto) 0.2, Sodium Level 143, Potassium Level 3.1L, Chloride Level 108H, Carbon Dioxide Level 28, Anion Gap 7, Blood Urea Nitrogen 12, Creatinine 0.7, Estimat Glomerular Filtration Rate , Glucose Level 106, Calcium Level 8.6, Phosphorus Level 3.0, Magnesium Level 1.4L, Total Bilirubin 0.5, Aspartate Amino Transf (AST/SGOT) 20, Alanine Aminotransferase (ALT/SGPT) 12, Alkaline Phosphatase 89, Total Protein 6.4, Albumin 2.4L, Globulin 4.0, Albumin/ Globulin Ratio 0.6L Current Medications Medications (Trade) Dose Ordered Sig/Yi Route PRN Reason Start Time Stop Time Status Last Admin Dose Admin Acetaminophen (Tylenol) 650 mg Q6H PRN ORAL Mild Pain/Temp > 100.5 04/02/18 17:15 05/02/18 17:14 Acetaminophen/ Hydrocodone Bitart ([place] 5/325) 1 tab Q6H PRN ORAL Severe Pain (Pain Scale 7-10) 04/02/18 20:30 04/09/18 20:29 04/05/18 09:16 Al Hydroxide/Mg Hydroxide (Mylanta) 15 ml Q1H PRN ORAL gi upset 04/06/18 06:30 04/06/18 15:00 Atenolol (Tenormin) 50 mg Q12HR ORAL 04/02/18 21:00 05/02/18 20:59 04/05/18 09:05 Atorvastatin Calcium (Lipitor) 20 mg BEDTIME ORAL 04/03/18 21:00 05/03/18 20:59 04/04/18 20:24 Atropine Sulfate (Atropine) 0.5 mg Q5M PRN IV bpm less than 45 04/06/18 06:30 04/06/18 15:00 Clonazepam (KlonoPIN) 0.5 mg Q6H PRN ORAL For Anxiety 04/02/18 17:30 04/09/18 17:29 04/05/18 09:35 Clonidine HCl (Catapres Tab) 0.1 mg EVERY 8 HOURS ORAL 04/02/18 22:00 05/02/18 21:59 04/05/18 14:12 Dicyclomine HCl (Bentyl) 10 mg QID ORAL 04/02/18 18:00 05/02/18 17:59 04/05/18 17:49 Diphenhydramine HCl (Benadryl) 25 mg Q15M PRN IVP Itching 04/06/18 06:30 04/06/18 15:00 Fentanyl Citrate (Sublimaze 100 mcg/2 mL) 25 mcg Q10M PRN IV Moderate Pain (Pain Scale 4-6) 04/06/18 06:30 04/06/18 15:00 Haloperidol Lactate (Haldol) 5 mg Q6H PRN IM Agitation 04/05/18 10:45 05/05/18 10:44 Hydralazine HCl (Apresoline) 5 mg Q30M PRN IV SBP>160 OR___/DBP>90 OR___ 04/06/18 06:30 04/06/18 15:00 Lorazepam (Ativan 2mg/ml 1ml) 1 mg Q4H PRN IM For Anxiety 04/05/18 10:45 04/12/18 10:44 Losartan Potassium (Cozaar) 50 mg DAILY ORAL 04/06/18 09:00 05/03/18 08:59 Metformin HCl (Glucophage) 500 mg BID ORAL 04/03/18 09:00 05/03/18 08:59 04/05/18 17:49 Midazolam HCl (Versed 2mg/2ml vial) 1 mg Q15M PRN IVP For Anxiety 04/06/18 06:30 04/06/18 15:00 Ondansetron HCl (Zofran) 4 mg Q1H PRN IVP Nausea & Vomiting 04/06/18 06:30 04/06/18 15:00 Potassium Chloride 10 meq/ Dextrose/Sodium Chloride 1,005 ml @ 75 mls/hr [id number] IV 04/06/18 09:00 05/06/18 08:59 04/06/18 09:49 Potassium Chloride (K-Dur) 10 meq DAILY ORAL 04/03/18 09:00 05/03/18 08:59 04/05/18 09:04 Sitagliptin Phosphate (Januvia) 50 mg ACBREAKFAST ORAL 04/03/18 06:30 05/03/18 06:29 04/05/18 05:55 Sodium Chloride 1,000 ml @ 0 mls/hr Q0M IV 04/06/18 07:30 05/06/18 07:29 Sodium Chloride 1,000 ml @ 10 mls/hr Q24H IVLG 04/06/18 06:28 04/06/18 15:00 04/06/18 06:28 Trazodone HCl (Desyrel) 50 mg BEDTIME ORAL 04/02/18 21:00 05/02/18 20:59 04/04/18 20:24 Vitamin D (Vitamin D) 5,000 intlu DAILY ORAL 04/03/18 09:00 05/03/18 08:59 04/05/18 09:04 Rod Mancera MD Apr 06, 2018 11:21
--- NOTE | 2018-04-06 12:16 | General Progress Note ---
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 SNOMED: 86419067 (2) Alzheimer's dementia ICD Codes: G30.9 - Alzheimer's disease, unspecified; F02.80 - Dementia in other diseases classified elsewhere without behavioral disturbance SNOMED: [id number] Assessment/Plan trazadone 50mg qhs klomopin .5mg q 6hr prn the pt lacks capacity to make decisions. Subjective Date patient seen: Apr 06, 2018 Neurologic/Psychiatric: Reports: anxiety, depressed, emotional problems Allergies: Coded Allergies: No Known Allergies (Unverified , 08/10/13) Objective Last 24 Hour Vital Signs Date Time Temp Pulse Resp B/P (MAP) Pulse Ox O2 Delivery O2 Flow Rate FiO2 04/06/18 09:50 97.7 70 16 139/65 (89) 99 04/06/18 09:32 66 18 100 04/06/18 09:30 57 18 100 04/06/18 09:13 Room Air Room Air 04/06/18 08:47 62 18 133/69 100 Simple Mask 8 04/06/18 08:35 66 18 144/73 100 Simple Mask 8 04/06/18 08:30 63 18 134/69 100 Simple Mask 8 04/06/18 08:25 97.7 57 18 146/69 100 Simple Mask 8 04/06/18 04:00 97.0 66 17 140/66 (90) 92 04/06/18 00:00 97.0 60 19 121/67 (85) 98 04/05/18 21:00 59 115/67 04/05/18 21:00 Room Air Room Air 04/05/18 20:00 97.3 59 17 115/67 (83) 93 04/05/18 15:46 97.5 99 20 144/87 (106) 98 04/05/18 14:12 130/80 Intake and Output 04/05/18 04/06/18 18:59 06:59 Intake Total 500 ml Balance 500 ml Other 500 ml # Voids 4 6 # Bowel Movements 2 8 Laboratory Tests 04/06/18 05:15: White Blood Count 7.4, Red Blood Count 3.32L, Hemoglobin 8.9L, Hematocrit 28.0L , Mean Corpuscular Volume 84, Mean Corpuscular Hemoglobin 26.8L, Mean Corpuscular Hemoglobin Concent 31.9L, Red Cell Distribution Width 16.4H, Platelet Count 520H, Mean Platelet Volume 6.9, Neutrophils (%) (Auto) 72.1, Lymphocytes (%) (Auto) 18.3L, Monocytes (%) (Auto) 9.1, Eosinophils (%) (Auto) 0.3, Basophils (%) (Auto) 0.2, Sodium Level 143, Potassium Level 3.1L, Chloride Level 108H, Carbon Dioxide Level 28, Anion Gap 7, Blood Urea Nitrogen 12, Creatinine 0.7, Estimat Glomerular Filtration Rate , Glucose Level 106, Calcium Level 8.6, Phosphorus Level 3.0, Magnesium Level 1.4L, Total Bilirubin 0.5, Aspartate Amino Transf (AST/SGOT) 20, Alanine Aminotransferase (ALT/SGPT) 12, Alkaline Phosphatase 89, Total Protein 6.4, Albumin 2.4L, Globulin 4.0, Albumin/ Globulin Ratio 0.6L Height (Feet): 5 Height (Inches): 5.00 Weight (Pounds): 121 General Appearance: no apparent distress, alert, confused, agitated Lena Bob MD Apr 06, 2018 12:16
[2018-04-06] MEDS ORDERED: cloNIDine 1000mcg/10ml inj ONE (13:43)
[2018-04-06] MEDS ORDERED: Bupivacaine 0.5% Inj 30 ml vial INJ ONE (13:44)
[2018-04-06] MEDS ORDERED: EPINEPHrine 1mg/1ml Amp ONE (13:45)
[2018-04-06] MEDS ORDERED: Tranexamic Acid 500 MG in NS 55 ML IVPB ONE (14:00)
[2018-04-06 14:14] LABS: ANION GAP 10 mmol/L (5-15); BLOOD UREA NITROGEN 13 mg/dL (7-18); CALCIUM 8.5 MG/DL (8.5-10.1); CARBON DIOXIDE 26 MMOL/L (21-32); CHLORIDE 108 MMOL/L (98-107); CREATININE 0.7 MG/DL (0.55-1.30); POTASSIUM 4.1 MMOL/L (3.5-5.1); SODIUM 143 MMOL/L (136-145)
[2018-04-06] MEDS: LORazepam Inj 2mg/ml 1ml IM PRN (15:14)
[2018-04-06] MEDS ORDERED: Bupivacaine w/Epi 0.25% 30ml Vial INJ ONE (16:15)
[2018-04-06] MEDS ORDERED: Bacitracin 50000 Units Vial ONE (16:16)
[2018-04-06] MEDS ORDERED: Tranexamic Acid(Epistaxis Use) TOPIC ONE (16:30)
[2018-04-06] MEDS ORDERED: NS Irrig 1000ml ONE (17:00)
[2018-04-06] MEDS ORDERED: NS Irrig 2000ml IRRIG ONE ×2 (17:00→17:11)
[2018-04-06] MEDS ORDERED: Sterile Water Irrig 1000ml IRRIG ONE (17:00)
[2018-04-06] MEDS ORDERED: LR 1000ml ONE (17:00)
--- NOTE | 2018-04-06 17:03 | Cardiology Report ---
APPROVED REPORT EKG Measurement Heart [id number] Normal sinus rhythm Left axis deviation Septal infarct, age undetermined Abnormal ECG
[2018-04-06] MEDS ORDERED: Lidocaine 1% Plain 30 ml INJ ONE (17:13)
[2018-04-06] MEDS ORDERED: Sodium Chloride 10ml vial INJ ONE (17:13)
[2018-04-06] MEDS ORDERED: Midazolam 2mg/2ml Inj ONE (17:14)
--- NOTE | 2018-04-06 17:29 | Pre-Procedure Note/Attestation ---
Pre-Procedure Note/Attestation Complete Prior to Procedure Planned Procedure: right Procedure Narrative: revision hip replacement Indications for Procedure Pre-Operative Diagnosis: right dislocated hip hemiarthroplasty Attestation I attest that I discussed the nature of the procedure; its benefits; risks and complications; and alternatives (and the risks and benefits of such alternatives ), prior to the procedure, with the patient (or the patient's legal sales representatives). I attest that, if there was a reasonable possibility of needing a blood transfusion, the patient (or the patient's legal sales representatives) was given the [facility] standardized written summary, pursuant to the [place] Reggie Blood Safety Act ([place] Health and Safety Code # 1645, as amended). I attest that I re-evaluated the patient just prior to the surgery and that there has been no change in the patient's H&P, except as documented below: Shen Lopez MD Apr 06, 2018 17:29
--- NOTE | 2018-04-06 17:30 | Operative Note - PDOC ---
Operative Note Operative Note Pre-op Diagnosis: right dislocated hip hemiarthroplasty Procedure: see op report Post-op Diagnosis: same as pre-op plus Operative Findings: consistent w/pre-op dx studies Anesthesia: regional Specimen: none Complications: none Condition: stable Estimated Blood Loss: minimal Implant(s) used?: Yes Shen Lopez MD Apr 06, 2018 17:29
[2018-04-06] MEDS ORDERED: ePHEDrine 50mg/ml Inj ONE (17:50)
[2018-04-06] MEDS ORDERED: LR 1000ml 1,000 ML IVLG SCH (18:02)
--- NOTE | 2018-04-06 18:04 | Internal Med Progress Note ---
Subjective Date of Service: Apr 06, 2018 Physician Name Matthews,Aquilino Attending Physician Carlos Alberto Berkowitz MD Current Medications Medications (Trade) Dose Ordered Sig/Yi Route PRN Reason Start Time Stop Time Status Last Admin Dose Admin Acetaminophen (Tylenol) 650 mg Q6H PRN ORAL Mild Pain/Temp > 100.5 04/02/18 17:15 05/02/18 17:14 Acetaminophen/ Hydrocodone Bitart ([place] 5/325) 1 tab Q6H PRN ORAL Severe Pain (Pain Scale 7-10) 04/02/18 20:30 04/09/18 20:29 04/06/18 11:21 Atenolol (Tenormin) 50 mg Q12HR ORAL 04/02/18 21:00 05/02/18 20:59 04/05/18 09:05 Atorvastatin Calcium (Lipitor) 20 mg BEDTIME ORAL 04/03/18 21:00 05/03/18 20:59 04/04/18 20:24 Clonazepam (KlonoPIN) 0.5 mg Q6H PRN ORAL For Anxiety 04/02/18 17:30 04/09/18 17:29 04/05/18 09:35 Clonidine HCl (Catapres Tab) 0.1 mg EVERY 8 HOURS ORAL 04/02/18 22:00 05/02/18 21:59 04/05/18 14:12 Dextrose (Dextrose 50%) 25 ml Q30M PRN IV bs 60-69 04/06/18 15:30 05/06/18 15:29 Dextrose/ Electrolytes 1,000 ml @ 75 mls/hr [id number] IV 04/06/18 18:30 05/06/18 18:29 Dicyclomine HCl (Bentyl) 10 mg QID ORAL 04/02/18 18:00 05/02/18 17:59 04/05/18 17:49 Haloperidol Lactate (Haldol) 5 mg Q6H PRN IM Agitation 04/05/18 10:45 05/05/18 10:44 Lorazepam (Ativan 2mg/ml 1ml) 1 mg Q4H PRN IM For Anxiety 04/05/18 10:45 04/12/18 10:44 04/06/18 15:14 Losartan Potassium (Cozaar) 50 mg DAILY ORAL 04/06/18 09:00 05/03/18 08:59 Metformin HCl (Glucophage) 500 mg BID ORAL 04/03/18 09:00 05/03/18 08:59 04/05/18 17:49 Potassium Chloride (K-Dur) 10 meq DAILY ORAL 04/03/18 09:00 05/03/18 08:59 04/05/18 09:04 Sitagliptin Phosphate (Januvia) 50 mg ACBREAKFAST ORAL 04/03/18 06:30 05/03/18 06:29 04/05/18 05:55 Sodium Chloride 1,000 ml @ 0 mls/hr Q0M IV 04/06/18 07:30 05/06/18 07:29 Trazodone HCl (Desyrel) 50 mg BEDTIME ORAL 04/02/18 21:00 05/02/18 20:59 04/04/18 20:24 Vitamin D (Vitamin D) 5,000 intlu DAILY ORAL 04/03/18 09:00 05/03/18 08:59 04/05/18 09:04 Allergies: Coded Allergies: No Known Allergies (Unverified , 08/10/13) ROS Limited/Unobtainable: Yes Subjective 82 YO F admitted with generalized weakness. Cover for Int Med-Dr Berkowitz. S/P revision of dislocated right femoral hemiarthroplasty prosthesis 04/06/18 Objective Last Vital Signs Date Time Temp Pulse Resp B/P (MAP) Pulse Ox O2 Delivery O2 Flow Rate FiO2 04/06/18 16:10 97.0 76 16 130/81 (97) 99 04/06/18 09:13 Room Air Room Air 04/06/18 08:47 8 04/02/18 18:13 98 Laboratory Tests Test 04/06/18 05:15 04/06/18 13:45 White Blood Count 7.4 K/UL (4.8-10.8) Red Blood Count 3.32 M/UL (4.20-5.40) L Hemoglobin 8.9 G/DL (12.0-16.0) L Hematocrit 28.0 % (37.0-47.0) L Mean Corpuscular Volume 84 FL (80-99) Mean Corpuscular Hemoglobin 26.8 PG (27.0-31.0) L Mean Corpuscular Hemoglobin Concent 31.9 G/DL (32.0-36.0) L Red Cell Distribution Width 16.4 % (11.6-14.8) H Platelet Count 520 K/UL (150-450) H Mean Platelet Volume 6.9 FL (6.5-10.1) Neutrophils (%) (Auto) 72.1 % (45.0-75.0) Lymphocytes (%) (Auto) 18.3 % (20.0-45.0) L Monocytes (%) (Auto) 9.1 % (1.0-10.0) Eosinophils (%) (Auto) 0.3 % (0.0-3.0) Basophils (%) (Auto) 0.2 % (0.0-2.0) Sodium Level 143 MMOL/L (136-145) 143 MMOL/L (136-145) Potassium Level 3.1 MMOL/L (3.5-5.1) L 4.1 MMOL/L (3.5-5.1) Chloride Level 108 MMOL/L (98-107) H 108 MMOL/L (98-107) H Carbon Dioxide Level 28 MMOL/L (21-32) 26 MMOL/L (21-32) Anion Gap 7 mmol/L (5-15) 10 mmol/L (5-15) Blood Urea Nitrogen 12 mg/dL (7-18) 13 mg/dL (7-18) Creatinine 0.7 MG/DL (0.55-1.30) 0.7 MG/DL (0.55-1.30) Estimat Glomerular Filtration Rate mL/min (>60) mL/min (>60) Glucose Level 106 MG/DL (74-106) 118 MG/DL (74-106) H Calcium Level 8.6 MG/DL (8.5-10.1) 8.5 MG/DL (8.5-10.1) Phosphorus Level 3.0 MG/DL (2.5-4.9) Magnesium Level 1.4 MG/DL (1.8-2.4) L 1.6 MG/DL (1.8-2.4) L Total Bilirubin 0.5 MG/DL (0.2-1.0) Aspartate Amino Transf (AST/SGOT) 20 U/L (15-37) Alanine Aminotransferase (ALT/SGPT) 12 U/L (12-78) Alkaline Phosphatase 89 U/L (46-116) Total Protein 6.4 G/DL (6.4-8.2) Albumin 2.4 G/DL (3.4-5.0) L Globulin 4.0 g/dL Albumin/Globulin Ratio 0.6 (1.0-2.7) L Intake and Output 04/05/18 04/06/18 19:00 07:00 Intake Total 500 ml Balance 500 ml Other 500 ml # Voids 4 6 # Bowel Movements 2 8 Objective General Appearance: WD/WN, mild distress, agitated EENT: PERRL/EOMI, normal ENT inspection Neck: non-tender, normal alignment, supple, normal inspection Cardiovascular: normal peripheral pulses, normal rate, regular rhythm, no gallop/murmur, no JVD Respiratory/Chest: chest wall non-tender, lungs clear, normal breath sounds, no accessory muscle use, respiratory distress Abdomen: normal bowel sounds, non tender, soft, no organomegaly, no mass Extremities: normal range of motion Neurologic: duster tender II-XII grossly normal Skin: normal pigmentation, warm/dry Assessment/Plan Problem List: (1) Diabetes mellitus, type II Assessment & Plan: Continue metformin and januvia (2) HTN (hypertension) Assessment & Plan: continue atenolol and cozaar (3) Sick sinus syndrome Assessment & Plan: S/P pacemaker (4) Aortic stenosis (5) Pulmonary hypertension (6) Alzheimer's dementia (7) Dislocation, hip closed Assessment & Plan: S/P revision dislocated right femoral hemiarthroplasty prosthesis 04/06/18-see ortho note. Status: unchanged Assessment/Plan Discharge planning: post acute care. Aquilino Matthews MD Apr 06, 2018 18:03
--- NOTE | 2018-04-06 18:06 | Immediate Post-Op Evaluation ---
Immediate Post-Op Evalulation Immediate Post-Op Evalulation Procedure: R Hip Revision Hemiarthroplasty Date of Evaluation: Apr 06, 2018 Time of Evaluation: 19:37 IV Fluids: 600 LR Blood Products: 0 Estimated Blood Loss: 50 Urinary Output: 100 Blood Pressure Systolic: 111 Blood Pressure Diastolic: 64 Pulse Rate: 74 Respiratory Rate: 16 O2 Sat by Pulse Oximetry: 100 Temperature (Fahrenheit): 97.4 Pain Score (1-10): 1 Nausea: No Vomiting: No Complications 0 Patient Status: awake, reacts, patent, none Hydration Status: adequate Dru Gram Ancef IV Given Within 1 Hr of Incision: Yes Time Given: 17:28 Arnulfo Newsome MD Apr 06, 2018 18:06
[2018-04-06] MEDS ORDERED: Hydromorphone 0.5mg/0.5ml inj IVP PRN (18:15)
[2018-04-06] MEDS ORDERED: HYDROcodone/Acetamin 7.5/325 tab ORAL PRN (18:15)
[2018-04-06] MEDS ORDERED: Atropine Sulfate 0.4mg/ml inj IVP PRN (18:15)
[2018-04-06] MEDS ORDERED: Ketorolac 30mg Inj IV PRN ×2 (18:15)
[2018-04-06] MEDS ORDERED: Norco 5mg/325mg tab ORAL PRN (18:15)
[2018-04-06] MEDS ORDERED: LORazepam Inj 2mg/ml 1ml IV PRN (18:15)
[2018-04-06] MEDS ORDERED: oxyCODONE HCL/Acetaminophen 5/325mg ORAL PRN (18:15)
[2018-04-06] MEDS ORDERED: Meperidine 50mg/ml Inj(FOR RIGORS ONLY) IVP PRN (18:15)
[2018-04-06] MEDS ORDERED: Vancomycin 1gm inj IVPB ONE ×2 (18:49→18:55)
--- NOTE | 2018-04-06 18:58 | Endoscopy Procedure Note ---
Endoscopy Procedure Note General Indication for Procedure: rectal bleed Operative Findings/Diagnosis: ulcerated hemorrhoid Specimen: none Pt Tolerated Procedure Well: Yes Estimated Blood Loss: none Anesthesia Anesthesiologist: Dharmesh sanchez Anesthesia: MAC Medications Medication Given: fentanyl, see anesthesia record Inserted Devices Implant(s) used?: No GI Core Measures 50 yrs or older w/o bx or poly: Not Applicable 10yrs. F/U not recommended: Not Applicable If not recommended, why?: Thalia Grant MD Apr 06, 2018 18:58
--- NOTE | 2018-04-06 18:59 | Brief Operative Note ---
Immediate Post Operative Note Operative Note Chief Complaint: BRBPR Pre-op Diagnosis: GI Bleed Procedure: Flex sig Post-op Diagnosis: Ulcerated hemorrhoid Surgeon: asher Anesthesiologist: Dharmesh sanchez Specimen: none Complications: none Condition: stable Fluids: recorded Estimated Blood Loss: none Drains: none Implant(s) used?: No Thalia Grant MD Apr 06, 2018 18:59
--- NOTE | 2018-04-06 20:15 | Procedure Note ---
DATE OF PROCEDURE: 04/06/2018 PROCEDURE: Flexible sigmoidoscopy (original procedure plan was colonoscopy but procedure changed to sigmoidoscopy due to poor colonic preparation) . SURGEON: Thalia Grant M.D. ANESTHESIOLOGIST: Dr. Ashford. PRE-ENDOSCOPIC DIAGNOSIS: Rectal bleeding. POSTOPERATIVE DIAGNOSIS: 1. Ulcerated internal hemorrhoids. 2. No evidence of active bleeding. DESCRIPTION OF PROCEDURE: The procedure, its risks, indications, alternatives, and possible complications were explained to the patient's family and informed consent was obtained. Initially plans were made to perform a full colonoscopy but the patient refused all of her medications for preparation and therefore colon was felt to be unprepped and the colonoscope could not be advanced beyond 30 cm. The procedure was therefore changed to a flexible sigmoidoscopy which was felt to be adequate for the purpose of evaluation. The colonoscope was introduced into rectum and advanced to about 30 cm, at which point, the examination had to be halted due to solid stool. The colonoscope was then gradually withdrawn and the mucosa examined carefully. Examination of colonic mucosa in the rectum on retroflexed view revealed internal hemorrhoids that were ulcerated and was felt to be a source. There is stool above this area which was brown and there was no blood seen. The colonoscope was removed. The patient left to the recovery in good condition. COMPLICATIONS: None. RECOMMENDATIONS: 1. Bowel regimen. 2. Followup for further episodes of bleeding. 3. At the family desire, a complete colonoscopy can be offered a later date. Thank you for asking me to participate in the care of this patient. Thalia Grant M.D. DR: Arianna JOB#: [id number] CC:
[2018-04-06] MEDS: D5 1/2NS w/KCl 20mEq 1,000 ML IV SCH (21:06)
[2018-04-06] MEDS: Atorvastatin 20mg tab ORAL SCH (21:10)
[2018-04-06] MEDS: TraZODone 50mg tab ORAL SCH (21:11)
--- NOTE | 2018-04-06 22:00 | Operative Note - Dictated ---
DATE OF OPERATION: 04/06/2018 NOTE: "POOR AUDIO QUALITY" PREOPERATIVE DIAGNOSIS: Right dislocated hemiarthroplasty. POSTOPERATIVE DIAGNOSIS: Right dislocated hemiarthroplasty. PROCEDURE: 1. Conversion of previous hip surgery to total hip arthroplasty, complicated secondary to chronic dislocation. 2. Complete synovectomy, right hip. 3. Complex wound closure measuring 15 cm. SURGEON: Shen Lopez M.D. ANESTHESIA: Spinal. INDICATION FOR PROCEDURE: The patient is a pleasant female who underwent hip hemiarthroplasty, subsequently had dislocation, and underwent open reduction. She did well, was discharged home, then subsequently had another fall at home, and dislocated right hip hemiarthroplasty. Therefore, she was indicated for operative fixation and recommended total hip arthroplasty provide more stability. Risks, limitations, expectations, and complications of the procedure were discussed in detail with the daughter. All questions were addressed. DESCRIPTION OF PROCEDURE: After informed consent was obtained, the patient was brought to the operating room. The patient was placed under spinal anesthesia. The patient was then carefully placed in lateral decubitus position. Right hip was prepped and draped in sterile manner. Previous incision was marked out. The skin was incised. Fascia reji was incised. The previous femoral head was in the superior acetabular fossa. Complete synovectomy of the hip was performed. Once complete synovectomy was performed, the soft tissue in the acetabulum was removed. Sequential reaming up to 50 was performed. A 52 Renetta Trident Tritanium cup was placed along with a screw and neutral liner. A 28 -3 head was selected and the hip was reduced. The soft tissue was very tight. The abductors seemed very tight. Hip was stable to 90 degrees of flexion and internal rotation to 45. At this point, the capsule was reapproximated with two drill holes to the greater trochanter. Fascia reji was approximated with #1 Vicryl suture, 2-0 Vicryl suture, and 3-0 Monocryl suture, and covered with Dermabond. Dressing was applied. The patient was awoken and taken to recovery room with stable vital signs. ESTIMATED BLOOD LOSS: 50 mL. COMPLICATIONS: None. SPECIMENS: None. EXPLANTS: Include femoral head with bipolar femoral head. IMPLANTS: Include 52 acetabular component with neutral liner, 35 mm screw, and a 28 -3 head-neck combo. Shen Lopez M.D. DR: Kayla JOB#: [id number] CC:
[2018-04-07] VITALS (8 sets, daily range): BP systolic 90–131; BP diastolic 50–65
[2018-04-07] MEDS: Norco 5mg/325mg tab ORAL PRN ×3 (00:43→23:55)
[2018-04-07] MEDS: clonazePAM 0.5mg tab ORAL PRN ×3 (03:07→23:55)
[2018-04-07] MEDS: sitaGLIPtin 50mg tab ORAL SCH (06:25)
[2018-04-07] MEDS: LORazepam Inj 2mg/ml 1ml IM PRN (06:28)
[2018-04-07 06:38] LABS: HEMATOCRIT 21.3 % (37.0-47.0); MEAN CORPUSCULAR VOLUME 85 FL (80-99); PLATELET COUNT 393 K/UL (150-450); RED BLOOD COUNT 2.52 M/UL (4.20-5.40); RED CELL DISTRIBUTION WIDTH 16.6 % (11.6-14.8); WHITE BLOOD COUNT 12.1 K/UL (4.8-10.8)
[2018-04-07 06:43] LABS: HEMOGLOBIN 6.6 G/DL (12.0-16.0)
[2018-04-07 06:56] LABS: ALANINE AMINOTRANSFERASE 14 U/L (12-78); ALBUMIN 2.1 G/DL (3.4-5.0); ALBUMIN/GLOBULIN RATIO 0.6 (1.0-2.7); ALKALINE PHOSPHATASE 74 U/L (46-116); ANION GAP 9 mmol/L (5-15); ASPARTATE AMINO TRANSFERASE 19 U/L (15-37); BILIRUBIN,TOTAL 0.4 MG/DL (0.2-1.0); BLOOD UREA NITROGEN 15 mg/dL (7-18); CALCIUM 7.8 MG/DL (8.5-10.1); CARBON DIOXIDE 23 MMOL/L (21-32); CHLORIDE 104 MMOL/L (98-107); CREATININE 0.8 MG/DL (0.55-1.30); PHOSPHORUS 2.7 MG/DL (2.5-4.9); POTASSIUM 3.7 MMOL/L (3.5-5.1); SODIUM 136 MMOL/L (136-145)
[2018-04-07] MEDS: D5 1/2NS w/KCl 20mEq 1,000 ML IV SCH ×2 (07:50→21:12)
[2018-04-07] MEDS: metFORMIN 500mg tab ORAL SCH ×2 (08:55→17:07)
[2018-04-07] MEDS: Dicyclomine 10mg Cap ORAL SCH ×4 (08:56→21:37)
[2018-04-07] MEDS: Vitamin D 1000 IU Tab ORAL SCH (08:57)
[2018-04-07] MEDS: Losartan 50mg tab ORAL SCH (08:59)
--- NOTE | 2018-04-07 09:38 | General Surgery Progress Note ---
General Surgery-Progress Note Subjective Additional Comments doing okay. comfortable. awake, responsive, eating with assistance of nursing staff. pain controlled. labs noted Objective Last 24 Hour Vital Signs Date Time Temp Pulse Resp B/P (MAP) Pulse Ox O2 Delivery O2 Flow Rate FiO2 04/07/18 08:59 119/54 04/07/18 08:58 86 119/54 04/07/18 08:16 97.7 86 20 119/54 (75) 95 04/07/18 04:00 97.0 20 112/59 (76) 94 04/07/18 00:04 97.4 20 90/50 (63) 100 04/06/18 21:00 Room Air Room Air 04/06/18 20:52 96.3 20 108/63 (78) 94 04/06/18 20:10 98.0 69 15 116/67 96 Nasal Cannula 3 04/06/18 19:55 75 16 121/56 98 Nasal Cannula 3 04/06/18 19:45 78 16 121/61 100 Nasal Cannula 3 04/06/18 19:36 84 15 126/55 100 Simple Mask 6 04/06/18 19:31 71 14 123/59 100 Simple Mask 6 04/06/18 19:26 97.4 77 29 111/64 100 Simple Mask 6 04/06/18 19:25 74 16 100 04/06/18 16:10 97.0 76 16 130/81 (97) 99 04/06/18 12:29 97.0 72 16 139/86 (103) 99 04/06/18 11:51 97.7 04/06/18 09:50 97.7 70 16 139/65 (89) 99 I&O Intake and Output 04/06/18 04/07/18 19:00 07:00 Intake Total 725 ml 1070 ml Output Total 450 ml Balance 725 ml 620 ml Intake Oral 200 ml 120 ml IV Total 525 ml 950 ml Output Urine Total 400 ml Estimated Blood Loss 50 ml # Voids 3 Dressing: other Wound: other Drains: other Cardiovascular: RSR Respiratory: clear Abdomen: soft, flat, non-tender, present bowel sounds Extremities: other Laboratory Tests Test 04/06/18 13:45 04/07/18 06:00 Sodium Level 143 MMOL/L (136-145) 136 MMOL/L (136-145) Potassium Level 4.1 MMOL/L (3.5-5.1) 3.7 MMOL/L (3.5-5.1) Chloride Level 108 MMOL/L (98-107) H 104 MMOL/L (98-107) Carbon Dioxide Level 26 MMOL/L (21-32) 23 MMOL/L (21-32) Anion Gap 10 mmol/L (5-15) 9 mmol/L (5-15) Blood Urea Nitrogen 13 mg/dL (7-18) 15 mg/dL (7-18) Creatinine 0.7 MG/DL (0.55-1.30) 0.8 MG/DL (0.55-1.30) Estimat Glomerular Filtration Rate mL/min (>60) mL/min (>60) Glucose Level 118 MG/DL (74-106) H 180 MG/DL (74-106) H Calcium Level 8.5 MG/DL (8.5-10.1) 7.8 MG/DL (8.5-10.1) L Magnesium Level 1.6 MG/DL (1.8-2.4) L 1.3 MG/DL (1.8-2.4) L White Blood Count 12.1 K/UL (4.8-10.8) #H Red Blood Count 2.52 M/UL (4.20-5.40) L Hemoglobin 6.6 G/DL (12.0-16.0) *L Hematocrit 21.3 % (37.0-47.0) L Mean Corpuscular Volume 85 FL (80-99) Mean Corpuscular Hemoglobin 26.1 PG (27.0-31.0) L Mean Corpuscular Hemoglobin Concent 30.9 G/DL (32.0-36.0) L Red Cell Distribution Width 16.6 % (11.6-14.8) H Platelet Count 393 K/UL (150-450) Mean Platelet Volume 6.9 FL (6.5-10.1) Neutrophils (%) (Auto) % (45.0-75.0) Lymphocytes (%) (Auto) % (20.0-45.0) Monocytes (%) (Auto) % (1.0-10.0) Eosinophils (%) (Auto) % (0.0-3.0) Basophils (%) (Auto) % (0.0-2.0) Differential Total Cells Counted 100 Neutrophils % (Manual) 88 % (45-75) H Lymphocytes % (Manual) 7 % (20-45) L Monocytes % (Manual) 5 % (1-10) Eosinophils % (Manual) 0 % (0-3) Basophils % (Manual) 0 % (0-2) Band Neutrophils 0 % (0-8) Platelet Estimate Adequate Platelet Morphology Normal Hypochromasia 3+ Anisocytosis 2+ Erythrocyte Sedimentation Rate 18 MM/HR (0-30) Phosphorus Level 2.7 MG/DL (2.5-4.9) Total Bilirubin 0.4 MG/DL (0.2-1.0) Aspartate Amino Transf (AST/SGOT) 19 U/L (15-37) Alanine Aminotransferase (ALT/SGPT) 14 U/L (12-78) Alkaline Phosphatase 74 U/L (46-116) C-Reactive Protein, Quantitative 5.9 mg/dL (0.00-0.90) H Total Protein 5.5 G/DL (6.4-8.2) L Albumin 2.1 G/DL (3.4-5.0) L Globulin 3.4 g/dL Albumin/Globulin Ratio 0.6 (1.0-2.7) L Plan Problems: (1) Sacral decubitus ulcer, stage III Assessment & Plan: Full thickness pressure injury to sacral region. multiple areas some which are chronic with some slow resolving areas noted. 2cm x3cm midline sacral full thickness wound with 100% sloth, just right and just left to this there are smaller areas approximately <2cm x <2cm with similar appearing ulcerations. no odor. no significant drainage. no bone or muscle seem to be exposed. 100% sloth. wounds present upon admission and will be cared for during hospital stay Plan: wash wounds daily with NS; apply hydrogel or therahoney followed by foam dressing turn q2h heel protectors air mattress will likely need excisional vs non excisional debridement of sloth down to healthy viable tissue. may consider during hospitalization once ortho and GI care completed nutritional support (2) Failure to thrive Assessment & Plan: elderly female with dementia albumin 2 multiple decubitus ulcers nutritional consult increase protein and Caloric intake will need optimization to help heal wounds Sher Younger Apr 07, 2018 09:38
--- NOTE | 2018-04-07 10:32 | Diagnostic Imaging Report ---
Indication: Postoperative, status post right total hip replacement for dislocation, hip pain Technique: One view of the pelvis Comparison: 03/01/2018 pelvic radiograph, right hip radiograph dated 04/05/2018 Findings: Interim revision of previously demonstrated dislocated right hip hemiarthroplasty, with a total hip acetabular cup now in place. The femoral stem appears to remain the same. Retained air from the surgical exposure is seen in the soft tissues. Prosthesis appears well aligned. The bones are osteoporotic. Old healed fracture deformity of the left superior and inferior pubic rami are again demonstrated Impression: Postoperative right hip, as described
--- NOTE | 2018-04-07 10:48 | Internal Med Progress Note ---
Subjective Date of Service: Apr 07, 2018 Physician Name Aquilino Matthews Attending Physician Carlos Alberto Berkowitz MD Current Medications Medications (Trade) Dose Ordered Sig/Yi Route PRN Reason Start Time Stop Time Status Last Admin Dose Admin Acetaminophen (Tylenol) 650 mg Q6H PRN ORAL Mild Pain/Temp > 100.5 04/02/18 17:15 05/02/18 17:14 Acetaminophen/ Hydrocodone Bitart ([place] 5/325) 1 tab Q6H PRN ORAL Severe Pain (Pain Scale 7-10) 04/02/18 20:30 04/09/18 20:29 04/07/18 00:43 Atenolol (Tenormin) 50 mg Q12HR ORAL 04/02/18 21:00 05/02/18 20:59 04/07/18 08:58 Atorvastatin Calcium (Lipitor) 20 mg BEDTIME ORAL 04/03/18 21:00 05/03/18 20:59 04/06/18 21:10 Clonazepam (KlonoPIN) 0.5 mg Q6H PRN ORAL For Anxiety 04/02/18 17:30 04/09/18 17:29 04/07/18 03:07 Clonidine HCl (Catapres Tab) 0.1 mg EVERY 8 HOURS ORAL 04/02/18 22:00 05/02/18 21:59 04/05/18 14:12 Dextrose (Dextrose 50%) 25 ml Q30M PRN IV bs 60-69 04/06/18 15:30 05/06/18 15:29 Dextrose/ Electrolytes 1,000 ml @ 75 mls/hr [id number] IV 04/06/18 18:30 05/06/18 18:29 04/06/18 21:06 Dicyclomine HCl (Bentyl) 10 mg QID ORAL 04/02/18 18:00 05/02/18 17:59 04/07/18 08:56 Furosemide (Lasix) 20 mg BID IV 04/07/18 09:00 05/07/18 08:59 Haloperidol Lactate (Haldol) 5 mg Q6H PRN IM Agitation 04/05/18 10:45 05/05/18 10:44 Lorazepam (Ativan 2mg/ml 1ml) 1 mg Q4H PRN IM For Anxiety 04/05/18 10:45 04/12/18 10:44 04/07/18 06:28 Losartan Potassium (Cozaar) 50 mg DAILY ORAL 04/06/18 09:00 05/03/18 08:59 04/07/18 08:59 Metformin HCl (Glucophage) 500 mg BID ORAL 04/03/18 09:00 05/03/18 08:59 04/07/18 08:55 Potassium Chloride (K-Dur) 10 meq DAILY ORAL 04/03/18 09:00 05/03/18 08:59 04/07/18 08:55 Sitagliptin Phosphate (Januvia) 50 mg ACBREAKFAST ORAL 04/03/18 06:30 05/03/18 06:29 04/07/18 06:25 Trazodone HCl (Desyrel) 50 mg BEDTIME ORAL 04/02/18 21:00 05/02/18 20:59 04/06/18 21:11 Vitamin D (Vitamin D) 5,000 intlu DAILY ORAL 04/03/18 09:00 05/03/18 08:59 04/07/18 08:57 Allergies: Coded Allergies: No Known Allergies (Unverified , 08/10/13) ROS Limited/Unobtainable: Yes Subjective 82 YO F admitted with generalized weakness. Cover for Int Med-Dr Berkowitz. S/P right hip total arthroplasty 04/06/18. S/P colonoscopy 04/06/18 Objective Last Vital Signs Date Time Temp Pulse Resp B/P (MAP) Pulse Ox O2 Delivery O2 Flow Rate FiO2 04/07/18 09:00 Room Air Room Air 04/07/18 08:59 119/54 04/07/18 08:58 86 04/07/18 08:16 97.7 20 95 04/06/18 20:10 3 04/02/18 18:13 98 Laboratory Tests Test 04/06/18 13:45 04/07/18 06:00 Sodium Level 143 MMOL/L (136-145) 136 MMOL/L (136-145) Potassium Level 4.1 MMOL/L (3.5-5.1) 3.7 MMOL/L (3.5-5.1) Chloride Level 108 MMOL/L (98-107) H 104 MMOL/L (98-107) Carbon Dioxide Level 26 MMOL/L (21-32) 23 MMOL/L (21-32) Anion Gap 10 mmol/L (5-15) 9 mmol/L (5-15) Blood Urea Nitrogen 13 mg/dL (7-18) 15 mg/dL (7-18) Creatinine 0.7 MG/DL (0.55-1.30) 0.8 MG/DL (0.55-1.30) Estimat Glomerular Filtration Rate mL/min (>60) mL/min (>60) Glucose Level 118 MG/DL (74-106) H 180 MG/DL (74-106) H Calcium Level 8.5 MG/DL (8.5-10.1) 7.8 MG/DL (8.5-10.1) L Magnesium Level 1.6 MG/DL (1.8-2.4) L 1.3 MG/DL (1.8-2.4) L White Blood Count 12.1 K/UL (4.8-10.8) #H Red Blood Count 2.52 M/UL (4.20-5.40) L Hemoglobin 6.6 G/DL (12.0-16.0) *L Hematocrit 21.3 % (37.0-47.0) L Mean Corpuscular Volume 85 FL (80-99) Mean Corpuscular Hemoglobin 26.1 PG (27.0-31.0) L Mean Corpuscular Hemoglobin Concent 30.9 G/DL (32.0-36.0) L Red Cell Distribution Width 16.6 % (11.6-14.8) H Platelet Count 393 K/UL (150-450) Mean Platelet Volume 6.9 FL (6.5-10.1) Neutrophils (%) (Auto) % (45.0-75.0) Lymphocytes (%) (Auto) % (20.0-45.0) Monocytes (%) (Auto) % (1.0-10.0) Eosinophils (%) (Auto) % (0.0-3.0) Basophils (%) (Auto) % (0.0-2.0) Differential Total Cells Counted 100 Neutrophils % (Manual) 88 % (45-75) H Lymphocytes % (Manual) 7 % (20-45) L Monocytes % (Manual) 5 % (1-10) Eosinophils % (Manual) 0 % (0-3) Basophils % (Manual) 0 % (0-2) Band Neutrophils 0 % (0-8) Platelet Estimate Adequate Platelet Morphology Normal Hypochromasia 3+ Anisocytosis 2+ Erythrocyte Sedimentation Rate 18 MM/HR (0-30) Phosphorus Level 2.7 MG/DL (2.5-4.9) Total Bilirubin 0.4 MG/DL (0.2-1.0) Aspartate Amino Transf (AST/SGOT) 19 U/L (15-37) Alanine Aminotransferase (ALT/SGPT) 14 U/L (12-78) Alkaline Phosphatase 74 U/L (46-116) C-Reactive Protein, Quantitative 5.9 mg/dL (0.00-0.90) H Total Protein 5.5 G/DL (6.4-8.2) L Albumin 2.1 G/DL (3.4-5.0) L Globulin 3.4 g/dL Albumin/Globulin Ratio 0.6 (1.0-2.7) L Intake and Output 04/06/18 04/07/18 18:59 06:59 Intake Total 725 ml 1070 ml Output Total 450 ml Balance 725 ml 620 ml Intake Oral 200 ml 120 ml IV Total 525 ml 950 ml Output Urine Total 400 ml Estimated Blood Loss 50 ml # Voids 3 Objective General Appearance: WD/WN, mild distress, agitated EENT: PERRL/EOMI, normal ENT inspection Neck: non-tender, normal alignment, supple, normal inspection Cardiovascular: normal peripheral pulses, normal rate, regular rhythm, no gallop/murmur, no JVD Respiratory/Chest: chest wall non-tender, lungs clear, normal breath sounds, no accessory muscle use, respiratory distress Abdomen: normal bowel sounds, non tender, soft, no organomegaly, no mass Extremities: normal range of motion 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 (8) Rectal bleed Assessment & Plan: S/P colonoscopy 04/06/18=ulcerated hemorrhoid. See GI note. Status: progressing Assessment/Plan Discharge planning: post acute care. Aquilino Matthews MD Apr 07, 2018 10:48
--- NOTE | 2018-04-07 10:49 | Pulmonology Progress Note ---
Assessment/Plan Problems: (1) Hip dislocation, right (2) Sacral decubitus ulcer, stage III (3) Protein-calorie malnutrition, severe (4) Psychosis (5) CAD (coronary artery disease) (6) Pulmonary hypertension (7) Aortic stenosis (8) Pacemaker (9) Diabetes mellitus, type II (10) HTN (hypertension) (11) Alzheimer's dementia Assessment/Plan prbc today check h/h and Pt, ptt in symptomatic treatment f/u ortho recommendations wound care consult nutrition evaluation social service consult check electrolytes dvt prophylaxis Subjective Constitutional: Reports: no symptoms HEENT: Repors: no symptoms Respiratory: Reports: no symptoms Allergies: Coded Allergies: No Known Allergies (Unverified , 08/10/13) Objective Last 24 Hour Vital Signs Date Time Temp Pulse Resp B/P (MAP) Pulse Ox O2 Delivery O2 Flow Rate FiO2 04/07/18 09:00 Room Air Room Air 04/07/18 08:59 119/54 04/07/18 08:58 86 119/54 04/07/18 08:16 97.7 86 20 119/54 (75) 95 04/07/18 04:00 97.0 20 112/59 (76) 94 04/07/18 00:04 97.4 20 90/50 (63) 100 04/06/18 21:00 Room Air Room Air 04/06/18 20:52 96.3 20 108/63 (78) 94 04/06/18 20:10 98.0 69 15 116/67 96 Nasal Cannula 3 04/06/18 19:55 75 16 121/56 98 Nasal Cannula 3 04/06/18 19:45 78 16 121/61 100 Nasal Cannula 3 04/06/18 19:36 84 15 126/55 100 Simple Mask 6 04/06/18 19:31 71 14 123/59 100 Simple Mask 6 04/06/18 19:26 97.4 77 29 111/64 100 Simple Mask 6 04/06/18 19:25 74 16 100 04/06/18 16:10 97.0 76 16 130/81 (97) 99 04/06/18 12:29 97.0 72 16 139/86 (103) 99 04/06/18 11:51 97.7 Intake and Output 04/06/18 04/07/18 18:59 06:59 Intake Total 725 ml 1070 ml Output Total 450 ml Balance 725 ml 620 ml Intake Oral 200 ml 120 ml IV Total 525 ml 950 ml Output Urine Total 400 ml Estimated Blood Loss 50 ml # Voids 3 General Appearance: WD/WN HEENT: normocephalic Respiratory/Chest: chest wall non-tender, normal breath sounds Breasts: no masses Cardiovascular: normal peripheral pulses, normal rate Abdomen: normal bowel sounds, no organomegaly Genitourinary: normal external genitalia Skin: no rash Microbiology Date/Time Source Procedure Growth Status 04/06/18 18:02 Hip Right Gram Stain - Final Resulted 04/06/18 18:02 Hip Right Aerobic Culture Pending Resulted 04/06/18 18:02 Hip Right Anaerobic Culture Pending Resulted Laboratory Tests 04/06/18 13:45: Sodium Level 143, Potassium Level 4.1, Chloride Level 108H, Carbon Dioxide Level 26, Anion Gap 10, Blood Urea Nitrogen 13, Creatinine 0.7, Estimat Glomerular Filtration Rate , Glucose Level 118H, Calcium Level 8.5, Magnesium Level 1.6L 04/07/18 06:00: Sodium Level 136, Potassium Level 3.7, Chloride Level 104, Carbon Dioxide Level 23, Anion Gap 9, Blood Urea Nitrogen 15, Creatinine 0.8, Estimat Glomerular Filtration Rate , Glucose Level 180H, Calcium Level 7.8L, Magnesium Level 1.3L, White Blood Count 12.1#H, Red Blood Count 2.52L, Hemoglobin 6.6*L, Hematocrit 21.3L, Mean Corpuscular Volume 85, Mean Corpuscular Hemoglobin 26.1L, Mean Corpuscular Hemoglobin Concent 30.9L, Red Cell Distribution Width 16.6H, Platelet Count 393, Mean Platelet Volume 6.9, Neutrophils (%) (Auto) , Lymphocytes (%) (Auto) , Monocytes (%) (Auto) , Eosinophils (%) (Auto) , Basophils (%) (Auto) , Differential Total Cells Counted 100, Neutrophils % ( Manual) 88H, Lymphocytes % (Manual) 7L, Monocytes % (Manual) 5, Eosinophils % ( Manual) 0, Basophils % (Manual) 0, Band Neutrophils 0, Platelet Estimate Adequate, Platelet Morphology Normal, Hypochromasia 3+, Anisocytosis 2+, Erythrocyte Sedimentation Rate 18, Phosphorus Level 2.7, Total Bilirubin 0.4, Aspartate Amino Transf (AST/SGOT) 19, Alanine Aminotransferase (ALT/SGPT) 14, Alkaline Phosphatase 74, C-Reactive Protein, Quantitative 5.9H, Total Protein 5.5L, Albumin 2.1L, Globulin 3.4, Albumin/Globulin Ratio 0.6L Current Medications Medications (Trade) Dose Ordered Sig/Yi Route PRN Reason Start Time Stop Time Status Last Admin Dose Admin Acetaminophen (Tylenol) 650 mg Q6H PRN ORAL Mild Pain/Temp > 100.5 04/02/18 17:15 05/02/18 17:14 Acetaminophen/ Hydrocodone Bitart ([place] 5/325) 1 tab Q6H PRN ORAL Severe Pain (Pain Scale 7-10) 04/02/18 20:30 04/09/18 20:29 04/07/18 00:43 Atenolol (Tenormin) 50 mg Q12HR ORAL 04/02/18 21:00 05/02/18 20:59 04/07/18 08:58 Atorvastatin Calcium (Lipitor) 20 mg BEDTIME ORAL 04/03/18 21:00 05/03/18 20:59 04/06/18 21:10 Clonazepam (KlonoPIN) 0.5 mg Q6H PRN ORAL For Anxiety 04/02/18 17:30 04/09/18 17:29 04/07/18 03:07 Clonidine HCl (Catapres Tab) 0.1 mg EVERY 8 HOURS ORAL 04/02/18 22:00 05/02/18 21:59 04/05/18 14:12 Dextrose (Dextrose 50%) 25 ml Q30M PRN IV bs 60-69 04/06/18 15:30 05/06/18 15:29 Dextrose/ Electrolytes 1,000 ml @ 75 mls/hr [id number] IV 04/06/18 18:30 05/06/18 18:29 04/06/18 21:06 Dicyclomine HCl (Bentyl) 10 mg QID ORAL 04/02/18 18:00 05/02/18 17:59 04/07/18 08:56 Furosemide (Lasix) 20 mg BID IV 04/07/18 09:00 05/07/18 08:59 Haloperidol Lactate (Haldol) 5 mg Q6H PRN IM Agitation 04/05/18 10:45 05/05/18 10:44 Lorazepam (Ativan 2mg/ml 1ml) 1 mg Q4H PRN IM For Anxiety 04/05/18 10:45 04/12/18 10:44 04/07/18 06:28 Losartan Potassium (Cozaar) 50 mg DAILY ORAL 04/06/18 09:00 05/03/18 08:59 04/07/18 08:59 Metformin HCl (Glucophage) 500 mg BID ORAL 04/03/18 09:00 05/03/18 08:59 04/07/18 08:55 Potassium Chloride (K-Dur) 10 meq DAILY ORAL 04/03/18 09:00 05/03/18 08:59 04/07/18 08:55 Sitagliptin Phosphate (Januvia) 50 mg ACBREAKFAST ORAL 04/03/18 06:30 05/03/18 06:29 04/07/18 06:25 Trazodone HCl (Desyrel) 50 mg BEDTIME ORAL 04/02/18 21:00 05/02/18 20:59 04/06/18 21:11 Vitamin D (Vitamin D) 5,000 intlu DAILY ORAL 04/03/18 09:00 05/03/18 08:59 04/07/18 08:57 Rod Mancera MD Apr 07, 2018 10:49
[2018-04-07 15:22] LABS: HEMATOCRIT 21.4 % (37.0-47.0); MEAN CORPUSCULAR VOLUME 83 FL (80-99); PLATELET COUNT 361 K/UL (150-450); RED BLOOD COUNT 2.57 M/UL (4.20-5.40); RED CELL DISTRIBUTION WIDTH 15.9 % (11.6-14.8); WHITE BLOOD COUNT 10.3 K/UL (4.8-10.8)
[2018-04-07 15:25] LABS: HEMOGLOBIN 6.9 G/DL (12.0-16.0)
--- NOTE | 2018-04-07 20:35 | General Progress Note ---
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 SNOMED: 50632010 (2) Alzheimer's dementia ICD Codes: G30.9 - Alzheimer's disease, unspecified; F02.80 - Dementia in other diseases classified elsewhere without behavioral disturbance SNOMED: 32063405 Status: stable Assessment/Plan trazadone 50mg qhs klomopin .5mg q 6hr prn the pt lacks capacity to make decisions. Subjective Neurologic/Psychiatric: Reports: anxiety, depressed, emotional problems Allergies: Coded Allergies: No Known Allergies (Unverified , 08/10/13) Objective Last 24 Hour Vital Signs Date Time Temp Pulse Resp B/P (MAP) Pulse Ox O2 Delivery O2 Flow Rate FiO2 04/07/18 16:40 98.8 04/07/18 15:43 98.8 65 20 128/65 (86) 95 04/07/18 13:58 130/62 04/07/18 13:54 98.6 130/62 (84) 04/07/18 13:09 98.6 04/07/18 12:15 99.9 63 123/65 (84) 96 04/07/18 11:56 98.5 65 20 131/62 (85) 99 04/07/18 11:45 98.5 04/07/18 09:00 Room Air Room Air 04/07/18 08:59 119/54 04/07/18 08:58 86 119/54 04/07/18 08:16 97.7 86 20 119/54 (75) 95 04/07/18 04:00 97.0 20 112/59 (76) 94 04/07/18 00:04 97.4 20 90/50 (63) 100 04/06/18 21:00 Room Air Room Air 04/06/18 20:52 96.3 20 108/63 (78) 94 Intake and Output 04/06/18 04/07/18 19:00 07:00 Intake Total 725 ml 1070 ml Output Total 450 ml Balance 725 ml 620 ml Intake Oral 200 ml 120 ml IV Total 525 ml 950 ml Output Urine Total 400 ml Estimated Blood Loss 50 ml # Voids 3 Laboratory Tests 04/07/18 06:00: White Blood Count 12.1#H, Red Blood Count 2.52L, Hemoglobin 6.6*L, Hematocrit 21.3L, Mean Corpuscular Volume 85, Mean Corpuscular Hemoglobin 26.1L, Mean Corpuscular Hemoglobin Concent 30.9L, Red Cell Distribution Width 16.6H, Platelet Count 393, Mean Platelet Volume 6.9, Neutrophils (%) (Auto) , Lymphocytes (%) (Auto) , Monocytes (%) (Auto) , Eosinophils (%) (Auto) , Basophils (%) (Auto) , Differential Total Cells Counted 100, Neutrophils % ( Manual) 88H, Lymphocytes % (Manual) 7L, Monocytes % (Manual) 5, Eosinophils % ( Manual) 0, Basophils % (Manual) 0, Band Neutrophils 0, Platelet Estimate Adequate, Platelet Morphology Normal, Hypochromasia 3+, Anisocytosis 2+, Erythrocyte Sedimentation Rate 18, Sodium Level 136, Potassium Level 3.7, Chloride Level 104, Carbon Dioxide Level 23, Anion Gap 9, Blood Urea Nitrogen 15 , Creatinine 0.8, Estimat Glomerular Filtration Rate , Glucose Level 180H, Calcium Level 7.8L, Phosphorus Level 2.7, Magnesium Level 1.3L, Total Bilirubin 0.4, Aspartate Amino Transf (AST/SGOT) 19, Alanine Aminotransferase (ALT/SGPT) 14, Alkaline Phosphatase 74, C-Reactive Protein, Quantitative 5.9H, Total Protein 5.5L, Albumin 2.1L, Globulin 3.4, Albumin/Globulin Ratio 0.6L 04/07/18 15:00: White Blood Count 10.3, Red Blood Count 2.57L, Hemoglobin 6.9*L, Hematocrit 21.4L, Mean Corpuscular Volume 83, Mean Corpuscular Hemoglobin 27.0, Mean Corpuscular Hemoglobin Concent 32.4, Red Cell Distribution Width 15.9H, Platelet Count 361, Mean Platelet Volume 6.9, Neutrophils (%) (Auto) , Lymphocytes (%) (Auto) , Monocytes (%) (Auto) , Eosinophils (%) (Auto) , Basophils (%) (Auto) , Differential Total Cells Counted 100, Neutrophils % ( Manual) 88H, Lymphocytes % (Manual) 5L, Monocytes % (Manual) 7, Eosinophils % ( Manual) 0, Basophils % (Manual) 0, Band Neutrophils 0, Platelet Estimate Adequate, Platelet Morphology Normal, Hypochromasia 3+, Anisocytosis 1+, Polychromasia 1+ Height (Feet): 5 Height (Inches): 5.00 Weight (Pounds): 136 General Appearance: no apparent distress, alert, confused, agitated Lena Bob MD Apr 07, 2018 20:35
--- NOTE | 2018-04-07 20:50 | General Progress Note ---
Assessment/Plan Assessment/Plan Assessment - constipation - rectal loading due to ulcerated hemorrhoids - low K and Mg - Anemia - worse post op - agitation/OBS - dislocated hip - s/p arthroplasty conversion Recommendations - push po - replace K and MG PRN - Monitor H&H - transfuse PRN - Ortho f/u Subjective Allergies: Coded Allergies: No Known Allergies (Unverified , 08/10/13) Subjective s/p (R) hip hemiarthroplasty conversion calm NAD d/w RN Objective Last 24 Hour Vital Signs Date Time Temp Pulse Resp B/P (MAP) Pulse Ox O2 Delivery O2 Flow Rate FiO2 04/07/18 16:40 98.8 04/07/18 15:43 98.8 65 20 128/65 (86) 95 04/07/18 13:58 130/62 04/07/18 13:54 98.6 130/62 (84) 04/07/18 13:09 98.6 04/07/18 12:15 99.9 63 123/65 (84) 96 04/07/18 11:56 98.5 65 20 131/62 (85) 99 04/07/18 11:45 98.5 04/07/18 09:00 Room Air Room Air 04/07/18 08:59 119/54 04/07/18 08:58 86 119/54 04/07/18 08:16 97.7 86 20 119/54 (75) 95 04/07/18 04:00 97.0 20 112/59 (76) 94 04/07/18 00:04 97.4 20 90/50 (63) 100 04/06/18 21:00 Room Air Room Air 04/06/18 20:52 96.3 20 108/63 (78) 94 Intake and Output 04/06/18 04/07/18 19:00 07:00 Intake Total 725 ml 1070 ml Output Total 450 ml Balance 725 ml 620 ml Intake Oral 200 ml 120 ml IV Total 525 ml 950 ml Output Urine Total 400 ml Estimated Blood Loss 50 ml # Voids 3 Laboratory Tests 04/07/18 06:00: White Blood Count 12.1#H, Red Blood Count 2.52L, Hemoglobin 6.6*L, Hematocrit 21.3L, Mean Corpuscular Volume 85, Mean Corpuscular Hemoglobin 26.1L, Mean Corpuscular Hemoglobin Concent 30.9L, Red Cell Distribution Width 16.6H, Platelet Count 393, Mean Platelet Volume 6.9, Neutrophils (%) (Auto) , Lymphocytes (%) (Auto) , Monocytes (%) (Auto) , Eosinophils (%) (Auto) , Basophils (%) (Auto) , Differential Total Cells Counted 100, Neutrophils % ( Manual) 88H, Lymphocytes % (Manual) 7L, Monocytes % (Manual) 5, Eosinophils % ( Manual) 0, Basophils % (Manual) 0, Band Neutrophils 0, Platelet Estimate Adequate, Platelet Morphology Normal, Hypochromasia 3+, Anisocytosis 2+, Erythrocyte Sedimentation Rate 18, Sodium Level 136, Potassium Level 3.7, Chloride Level 104, Carbon Dioxide Level 23, Anion Gap 9, Blood Urea Nitrogen 15 , Creatinine 0.8, Estimat Glomerular Filtration Rate , Glucose Level 180H, Calcium Level 7.8L, Phosphorus Level 2.7, Magnesium Level 1.3L, Total Bilirubin 0.4, Aspartate Amino Transf (AST/SGOT) 19, Alanine Aminotransferase (ALT/SGPT) 14, Alkaline Phosphatase 74, C-Reactive Protein, Quantitative 5.9H, Total Protein 5.5L, Albumin 2.1L, Globulin 3.4, Albumin/Globulin Ratio 0.6L 04/07/18 15:00: White Blood Count 10.3, Red Blood Count 2.57L, Hemoglobin 6.9*L, Hematocrit 21.4L, Mean Corpuscular Volume 83, Mean Corpuscular Hemoglobin 27.0, Mean Corpuscular Hemoglobin Concent 32.4, Red Cell Distribution Width 15.9H, Platelet Count 361, Mean Platelet Volume 6.9, Neutrophils (%) (Auto) , Lymphocytes (%) (Auto) , Monocytes (%) (Auto) , Eosinophils (%) (Auto) , Basophils (%) (Auto) , Differential Total Cells Counted 100, Neutrophils % ( Manual) 88H, Lymphocytes % (Manual) 5L, Monocytes % (Manual) 7, Eosinophils % ( Manual) 0, Basophils % (Manual) 0, Band Neutrophils 0, Platelet Estimate Adequate, Platelet Morphology Normal, Hypochromasia 3+, Anisocytosis 1+, Polychromasia 1+ Height (Feet): 5 Height (Inches): 5.00 Weight (Pounds): 136 Objective WDWN NCAT supple CTA RRR abd soft no edema Khorrami,Payman MD Apr 07, 2018 20:50
[2018-04-07] MEDS: TraZODone 50mg tab ORAL SCH (21:36)
[2018-04-07] MEDS: Atorvastatin 20mg tab ORAL SCH (21:37)
[2018-04-08] VITALS: BP 124/71
[2018-04-08 04:00] VITALS: BP 119/61
[2018-04-08] MEDS: sitaGLIPtin 50mg tab ORAL SCH (06:30)
[2018-04-08 07:10] LABS: INR 1.2 (0.9-1.1)
[2018-04-08 07:17] LABS: BASOPHILS % (AUTO) 0.3 % (0.0-2.0); EOSINOPHILS % (AUTO) 0.6 % (0.0-3.0); HEMATOCRIT 26.5 % (37.0-47.0); LYMPHOCYTES % (AUTO) 11.1 % (20.0-45.0); MEAN CORPUSCULAR VOLUME 85 FL (80-99); MONOCYTES % (AUTO) 7.7 % (1.0-10.0); NEUTROPHILS % (AUTO) 80.4 % (45.0-75.0); PLATELET COUNT 342 K/UL (150-450); RED BLOOD COUNT 3.13 M/UL (4.20-5.40); RED CELL DISTRIBUTION WIDTH 15.2 % (11.6-14.8); WHITE BLOOD COUNT 11.1 K/UL (4.8-10.8)
[2018-04-08 07:23] LABS: ALANINE AMINOTRANSFERASE 14 U/L (12-78); ALBUMIN 2.1 G/DL (3.4-5.0); ALBUMIN/GLOBULIN RATIO 0.6 (1.0-2.7); ALKALINE PHOSPHATASE 81 U/L (46-116); ANION GAP 7 mmol/L (5-15); ASPARTATE AMINO TRANSFERASE 19 U/L (15-37); BILIRUBIN,TOTAL 0.7 MG/DL (0.2-1.0); BLOOD UREA NITROGEN 12 mg/dL (7-18); CALCIUM 8.4 MG/DL (8.5-10.1); CARBON DIOXIDE 25 MMOL/L (21-32); CHLORIDE 107 MMOL/L (98-107); CREATININE 0.8 MG/DL (0.55-1.30); PHOSPHORUS 2.7 MG/DL (2.5-4.9); POTASSIUM 3.9 MMOL/L (3.5-5.1); SODIUM 139 MMOL/L (136-145)
[2018-04-08 07:31] LABS: HEMOGLOBIN 8.4 G/DL (12.0-16.0)
[2018-04-08 08:00] VITALS: BP 121/70
--- NOTE | 2018-04-08 08:12 | Pulmonology Progress Note ---
Assessment/Plan Assessment/Plan ASSESSMENT recurrent dislocation right hip hemiarthroplasty s/p 04/06 conversion to total hip arthroplasty ulcerated internal hemorrhoids s/p flexible sigmoidoscopy anemia , s/p blood transfusion severe protein calorie malnutrition electrolytes imbalance sacral decub stage III, present on admission diabetes mellitus type 2 hypertension CAD with hx of NSTEMI aortic stenosis pulmonary hypertension Alzheimer dementia sick sinus syndrome , status post pacemaker implantation PLAN OF CARE Med Surg floor s/p R JEFFERY hip precautions PT/OT pain management bowel regimen s/p flexible sigmoidoscopy , no evidence of active bleeding colonoscopy later with consent of family fup with Gi recs anemia workup noted , s/p 2 u PRBC check ferritin level , may benefit from Venofer IV fluids monitor renal parameters ,electrolytes corrected electrolytes prn BP management with BB and ARB continue statin BS management with metformin and Januvia nutritional recommendations implemented in plan of care psychiatrist follow on trazodone according to psychiatrist, patient lacks capacity to make decisions supportive care wound care as per surgeon recommendations case discussed and evaluated by supervising physician Subjective Allergies: Coded Allergies: No Known Allergies (Unverified , 08/10/13) Subjective mild leukocytosis, no fever HH better after blood tranfusion Objective Last 24 Hour Vital Signs Date Time Temp Pulse Resp B/P (MAP) Pulse Ox O2 Delivery O2 Flow Rate FiO2 04/08/18 06:30 122/62 04/08/18 04:00 97.5 67 16 119/61 (80) 93 04/08/18 00:00 97.7 72 16 124/71 (88) 95 04/07/18 22:30 115/69 04/07/18 21:37 65 125/71 04/07/18 21:00 Room Air Room Air 04/07/18 20:00 97.8 76 16 121/63 (82) 95 04/07/18 16:40 98.8 04/07/18 15:43 98.8 65 20 128/65 (86) 95 04/07/18 13:58 130/62 04/07/18 13:54 98.6 130/62 (84) 04/07/18 13:09 98.6 04/07/18 12:15 99.9 63 123/65 (84) 96 04/07/18 11:56 98.5 65 20 131/62 (85) 99 04/07/18 11:45 98.5 04/07/18 09:00 Room Air Room Air 04/07/18 08:59 119/54 04/07/18 08:58 86 119/54 04/07/18 08:16 97.7 86 20 119/54 (75) 95 Intake and Output 04/07/18 04/08/18 19:00 07:00 Intake Total 315 ml 525 ml Balance 315 ml 525 ml Intake Oral 315 ml IV Total 525 ml # Voids 3 3 General Appearance: no acute distress, other - awake, confused elderly Iraqi speking female in NAD HEENT: normocephalic, atraumatic, anicteric Respiratory/Chest: lungs clear - with moderate air exchange Cardiovascular: normal rate Abdomen: soft, non tender, non distended Extremities: no edema Skin: other - R hip dressing intact Neurologic/Psychiatric: abnormal gait - bedridden , other - awake, but very confused Musculoskeletal: atrophy - BLE Microbiology Date/Time Source Procedure Growth Status 04/06/18 18:02 Hip Right Gram Stain - Final Resulted 04/06/18 18:02 Hip Right Aerobic Culture Pending Resulted 04/06/18 18:02 Hip Right Anaerobic Culture Pending Resulted Laboratory Tests 04/07/18 15:00: White Blood Count 10.3, Red Blood Count 2.57L, Hemoglobin 6.9*L, Hematocrit 21.4L, Mean Corpuscular Volume 83, Mean Corpuscular Hemoglobin 27.0, Mean Corpuscular Hemoglobin Concent 32.4, Red Cell Distribution Width 15.9H, Platelet Count 361, Mean Platelet Volume 6.9, Neutrophils (%) (Auto) , Lymphocytes (%) (Auto) , Monocytes (%) (Auto) , Eosinophils (%) (Auto) , Basophils (%) (Auto) , Differential Total Cells Counted 100, Neutrophils % ( Manual) 88H, Lymphocytes % (Manual) 5L, Monocytes % (Manual) 7, Eosinophils % ( Manual) 0, Basophils % (Manual) 0, Band Neutrophils 0, Platelet Estimate Adequate, Platelet Morphology Normal, Polychromasia 1+, Hypochromasia 3+, Anisocytosis 1+ 04/08/18 06:30: White Blood Count 11.1H, Red Blood Count 3.13L, Hemoglobin 8.4L, Hematocrit 26.5L, Mean Corpuscular Volume 85, Mean Corpuscular Hemoglobin 26.9L, Mean Corpuscular Hemoglobin Concent 31.8L, Red Cell Distribution Width 15.2H, Platelet Count 342, Mean Platelet Volume 7.4, Neutrophils (%) (Auto) 80.4H, Lymphocytes (%) (Auto) 11.1L, Monocytes (%) (Auto) 7.7, Eosinophils (%) (Auto) 0.6, Basophils (%) (Auto) 0.3, Prothrombin Time 13.0H, Prothromb Time International Ratio 1.2H, Activated Partial Thromboplast Time 36H, Sodium Level 139, Potassium Level 3.9, Chloride Level 107, Carbon Dioxide Level 25, Anion Gap 7, Blood Urea Nitrogen 12, Creatinine 0.8, Estimat Glomerular Filtration Rate , Glucose Level 94, Calcium Level 8.4L, Phosphorus Level 2.7, Magnesium Level 1.4L, Total Bilirubin 0.7, Aspartate Amino Transf (AST/SGOT) 19, Alanine Aminotransferase (ALT/SGPT) 14, Alkaline Phosphatase 81, Total Protein 5.8L, Albumin 2.1L, Globulin 3.7, Albumin/Globulin Ratio 0.6L Current Medications Medications (Trade) Dose Ordered Sig/Yi Route PRN Reason Start Time Stop Time Status Last Admin Dose Admin Acetaminophen (Tylenol) 650 mg Q6H PRN ORAL Mild Pain/Temp > 100.5 04/02/18 17:15 05/02/18 17:14 04/07/18 12:39 Acetaminophen/ Hydrocodone Bitart ([place] 5/325) 1 tab Q6H PRN ORAL Severe Pain (Pain Scale 7-10) 04/02/18 20:30 04/09/18 20:29 04/07/18 23:55 Atenolol (Tenormin) 50 mg Q12HR ORAL 04/02/18 21:00 05/02/18 20:59 04/07/18 21:37 Atorvastatin Calcium (Lipitor) 20 mg BEDTIME ORAL 04/03/18 21:00 05/03/18 20:59 04/07/18 21:37 Clonazepam (KlonoPIN) 0.5 mg Q6H PRN ORAL For Anxiety 04/02/18 17:30 04/09/18 17:29 04/07/18 23:55 Clonidine HCl (Catapres Tab) 0.1 mg EVERY 8 HOURS ORAL 04/02/18 22:00 05/02/18 21:59 04/08/18 06:30 Dextrose (Dextrose 50%) 25 ml Q30M PRN IV bs 60-69 04/06/18 15:30 05/06/18 15:29 Dextrose/ Electrolytes 1,000 ml @ 75 mls/hr [id number] IV 04/06/18 18:30 05/06/18 18:29 04/07/18 21:12 Dicyclomine HCl (Bentyl) 10 mg QID ORAL 04/02/18 18:00 05/02/18 17:59 04/07/18 21:37 Haloperidol Lactate (Haldol) 5 mg Q6H PRN IM Agitation 04/05/18 10:45 05/05/18 10:44 Lorazepam (Ativan 2mg/ml 1ml) 1 mg Q4H PRN IM For Anxiety 04/05/18 10:45 04/12/18 10:44 04/07/18 06:28 Losartan Potassium (Cozaar) 50 mg DAILY ORAL 04/06/18 09:00 05/03/18 08:59 04/07/18 08:59 Metformin HCl (Glucophage) 500 mg BID ORAL 04/03/18 09:00 05/03/18 08:59 04/07/18 17:07 Potassium Chloride (K-Dur) 10 meq DAILY ORAL 04/03/18 09:00 05/03/18 08:59 04/07/18 08:55 Sitagliptin Phosphate (Januvia) 50 mg ACBREAKFAST ORAL 04/03/18 06:30 05/03/18 06:29 04/08/18 06:30 Trazodone HCl (Desyrel) 50 mg BEDTIME ORAL 04/02/18 21:00 05/02/18 20:59 04/07/18 21:36 Vitamin D (Vitamin D) 5,000 intlu DAILY ORAL 04/03/18 09:00 05/03/18 08:59 04/07/18 08:57 Stormy Morel NP Apr 08, 2018 08:12
[2018-04-08] MEDS: Vitamin D 1000 IU Tab ORAL SCH (08:40)
[2018-04-08] MEDS: Losartan 50mg tab ORAL SCH (08:40)
[2018-04-08] MEDS: Dicyclomine 10mg Cap ORAL SCH ×4 (08:40→20:35)
[2018-04-08] MEDS: metFORMIN 500mg tab ORAL SCH ×2 (08:40→17:06)
[2018-04-08] MEDS: Norco 5mg/325mg tab ORAL PRN (08:41)
[2018-04-08] MEDS ORDERED: Tubing Blood Filter IV ONE (09:49)
--- NOTE | 2018-04-08 10:16 | General Surgery Progress Note ---
General Surgery-Progress Note Subjective Additional Comments no acute events. comfortable. pain controlled. resting Objective Last 24 Hour Vital Signs Date Time Temp Pulse Resp B/P (MAP) Pulse Ox O2 Delivery O2 Flow Rate FiO2 04/08/18 09:00 Room Air Room Air 04/08/18 08:40 121/70 04/08/18 08:40 70 121/70 04/08/18 08:00 96.0 70 16 121/70 (87) 93 04/08/18 06:30 122/62 04/08/18 04:00 97.5 67 16 119/61 (80) 93 04/08/18 00:00 97.7 72 16 124/71 (88) 95 04/07/18 22:30 115/69 04/07/18 21:37 65 125/71 04/07/18 21:00 Room Air Room Air 04/07/18 20:00 97.8 76 16 121/63 (82) 95 04/07/18 16:40 98.8 04/07/18 15:43 98.8 65 20 128/65 (86) 95 04/07/18 13:58 130/62 04/07/18 13:54 98.6 130/62 (84) 04/07/18 13:09 98.6 04/07/18 12:15 99.9 63 123/65 (84) 96 04/07/18 11:56 98.5 65 20 131/62 (85) 99 04/07/18 11:45 98.5 I&O Intake and Output 04/07/18 04/08/18 19:00 07:00 Intake Total 315 ml 525 ml Balance 315 ml 525 ml Intake Oral 315 ml IV Total 525 ml # Voids 3 3 Dressing: saturated Wound: other Drains: other Cardiovascular: RSR Respiratory: clear Abdomen: soft, flat, non-tender, present bowel sounds Extremities: no tenderness, no cyanosis, other Laboratory Tests Test 04/07/18 15:00 04/08/18 06:30 White Blood Count 10.3 K/UL (4.8-10.8) 11.1 K/UL (4.8-10.8) H Red Blood Count 2.57 M/UL (4.20-5.40) L 3.13 M/UL (4.20-5.40) L Hemoglobin 6.9 G/DL (12.0-16.0) *L 8.4 G/DL (12.0-16.0) L Hematocrit 21.4 % (37.0-47.0) L 26.5 % (37.0-47.0) L Mean Corpuscular Volume 83 FL (80-99) 85 FL (80-99) Mean Corpuscular Hemoglobin 27.0 PG (27.0-31.0) 26.9 PG (27.0-31.0) L Mean Corpuscular Hemoglobin Concent 32.4 G/DL (32.0-36.0) 31.8 G/DL (32.0-36.0) L Red Cell Distribution Width 15.9 % (11.6-14.8) H 15.2 % (11.6-14.8) H Platelet Count 361 K/UL (150-450) 342 K/UL (150-450) Mean Platelet Volume 6.9 FL (6.5-10.1) 7.4 FL (6.5-10.1) Neutrophils (%) (Auto) % (45.0-75.0) 80.4 % (45.0-75.0) H Lymphocytes (%) (Auto) % (20.0-45.0) 11.1 % (20.0-45.0) L Monocytes (%) (Auto) % (1.0-10.0) 7.7 % (1.0-10.0) Eosinophils (%) (Auto) % (0.0-3.0) 0.6 % (0.0-3.0) Basophils (%) (Auto) % (0.0-2.0) 0.3 % (0.0-2.0) Differential Total Cells Counted 100 Neutrophils % (Manual) 88 % (45-75) H Lymphocytes % (Manual) 5 % (20-45) L Monocytes % (Manual) 7 % (1-10) Eosinophils % (Manual) 0 % (0-3) Basophils % (Manual) 0 % (0-2) Band Neutrophils 0 % (0-8) Platelet Estimate Adequate Platelet Morphology Normal Polychromasia 1+ Hypochromasia 3+ Anisocytosis 1+ Prothrombin Time 13.0 SEC (9.30-11.50) H Prothromb Time International Ratio 1.2 (0.9-1.1) H Activated Partial Thromboplast Time 36 SEC (23-33) H Sodium Level 139 MMOL/L (136-145) Potassium Level 3.9 MMOL/L (3.5-5.1) Chloride Level 107 MMOL/L (98-107) Carbon Dioxide Level 25 MMOL/L (21-32) Anion Gap 7 mmol/L (5-15) Blood Urea Nitrogen 12 mg/dL (7-18) Creatinine 0.8 MG/DL (0.55-1.30) Estimat Glomerular Filtration Rate mL/min (>60) Glucose Level 94 MG/DL (74-106) Calcium Level 8.4 MG/DL (8.5-10.1) L Phosphorus Level 2.7 MG/DL (2.5-4.9) Magnesium Level 1.4 MG/DL (1.8-2.4) L Total Bilirubin 0.7 MG/DL (0.2-1.0) Aspartate Amino Transf (AST/SGOT) 19 U/L (15-37) Alanine Aminotransferase (ALT/SGPT) 14 U/L (12-78) Alkaline Phosphatase 81 U/L (46-116) Total Protein 5.8 G/DL (6.4-8.2) L Albumin 2.1 G/DL (3.4-5.0) L Globulin 3.7 g/dL Albumin/Globulin Ratio 0.6 (1.0-2.7) L Plan Problems: (1) Sacral decubitus ulcer, stage III Assessment & Plan: Multiple pressure injuries to sacrum and R hip. Four individual pressure injuries in close proximity noted to sacrum,Total area measuring (L)2cm x (W)7 cm., each wound with 100% yellow slough with red margins. Non-blanchable erythema periwound. Small pressure injury noted to L buttocks (L)0.4cm x(W)0.5cm with 100% slough. Full thickness pressure injury to R hip at historical surgical incision (L) 1.1cm x(W)0.9cm ,with 90% yellow slough noted. Non-blanchable erythema noted periwound ,an area of (L)7cm x (W)6.6cm . Stable dry eschar medial R heel. Periwound without erythema or induration. Wounds present upon admission and will be cared for during hospital stay Tx.Plan: Reposition at least every 2hours or as tolerated. Air fluidized mattress. Apply Cavilon wipes to heels and off-load heels with pillow. Cleanse wounds Sacrum with Saline. Apply Therahoney to wounds .Cavilon to borders and cover with Optifoam Drsg. Cleanse R hip wound with Saline.Apply Therahoney.Apply Cavilon wipe to red area periwound and cover with Optifoam drsg Daily and prn. Will likely need excisional vs non excisional debridement of sloth down to healthy viable tissue. may consider during hospitalization once ortho and GI care completed Nutritional support (2) Failure to thrive Assessment & Plan: elderly female with dementia albumin 2 multiple decubitus ulcers nutritional consult increase protein and Caloric intake will need optimization to help heal wounds DAILY ESTIMATED NEEDS: Needs based on Wound, DM, wasting / 51kg 30-35 kcals/kg [id number] total kcals 1.25-1.5 g protein/kg 64-77 g total protein NUTRITION DIAGNOSIS: * Increased kcal/prot needs R/T wound healing as evidenced by pt w/ stage 3 sacral and R hip wounds, refer to WC eval. PO DIET RECOMMENDATIONS: [place]/ Regular diet w/ <50% po intake (texture per [employer]) ADDITIONAL RECOMMENDATIONS: * Calibrated bedscale wt for accurate CBW * Wound healing: add MVI w/ min 1 tab QD, Vit C 500mg BID, [place] 1pkt BID * Add Glucerna 1 tetra harper TID * Lytes daily, replete as needed ( Mg 1.6) . Sher Younger Apr 08, 2018 10:16
[2018-04-08] MEDS: D5 1/2NS w/KCl 20mEq 1,000 ML IV SCH (10:20)
[2018-04-08 12:00] VITALS: BP 115/70
--- NOTE | 2018-04-08 13:02 | Internal Med Progress Note ---
Subjective Date of Service: Apr 08, 2018 Physician Name CassieAquilino Attending Physician Carlos Alberto Berkowitz MD Current Medications Medications (Trade) Dose Ordered Sig/Yi Route PRN Reason Start Time Stop Time Status Last Admin Dose Admin Acetaminophen (Tylenol) 650 mg Q6H PRN ORAL Mild Pain/Temp > 100.5 04/02/18 17:15 05/02/18 17:14 04/07/18 12:39 Acetaminophen/ Hydrocodone Bitart ([place] 5/325) 1 tab Q6H PRN ORAL Severe Pain (Pain Scale 7-10) 04/02/18 20:30 04/09/18 20:29 04/08/18 08:41 Atenolol (Tenormin) 50 mg Q12HR ORAL 04/02/18 21:00 05/02/18 20:59 04/08/18 08:40 Atorvastatin Calcium (Lipitor) 20 mg BEDTIME ORAL 04/03/18 21:00 05/03/18 20:59 04/07/18 21:37 Clonazepam (KlonoPIN) 0.5 mg Q6H PRN ORAL For Anxiety 04/02/18 17:30 04/09/18 17:29 04/07/18 23:55 Clonidine HCl (Catapres Tab) 0.1 mg EVERY 8 HOURS ORAL 04/02/18 22:00 05/02/18 21:59 04/08/18 06:30 Dextrose (Dextrose 50%) 25 ml Q30M PRN IV bs 60-69 04/06/18 15:30 05/06/18 15:29 Dextrose/ Electrolytes 1,000 ml @ 75 mls/hr [id number] IV 04/06/18 18:30 05/06/18 18:29 04/08/18 10:20 Dicyclomine HCl (Bentyl) 10 mg QID ORAL 04/02/18 18:00 05/02/18 17:59 04/08/18 08:40 Haloperidol Lactate (Haldol) 5 mg Q6H PRN IM Agitation 04/05/18 10:45 05/05/18 10:44 Lorazepam (Ativan 2mg/ml 1ml) 1 mg Q4H PRN IM For Anxiety 04/05/18 10:45 04/12/18 10:44 04/07/18 06:28 Losartan Potassium (Cozaar) 50 mg DAILY ORAL 04/06/18 09:00 05/03/18 08:59 04/08/18 08:40 Metformin HCl (Glucophage) 500 mg BID ORAL 04/03/18 09:00 05/03/18 08:59 04/08/18 08:40 Potassium Chloride (K-Dur) 10 meq DAILY ORAL 04/03/18 09:00 05/03/18 08:59 04/08/18 08:40 Sitagliptin Phosphate (Januvia) 50 mg ACBREAKFAST ORAL 04/03/18 06:30 05/03/18 06:29 04/08/18 06:30 Trazodone HCl (Desyrel) 50 mg BEDTIME ORAL 04/02/18 21:00 05/02/18 20:59 04/07/18 21:36 Vitamin D (Vitamin D) 5,000 intlu DAILY ORAL 04/03/18 09:00 05/03/18 08:59 04/08/18 08:40 Allergies: Coded Allergies: No Known Allergies (Unverified , 08/10/13) ROS Limited/Unobtainable: No Constitutional: Reports: no symptoms HEENT: Reports: no symptoms Cardiovascular: Reports: no symptoms Respiratory: Reports: no symptoms Gastrointestinal/Abdominal: Reports: no symptoms Genitourinary: Reports: no symptoms Subjective 82 YO F admitted with generalized weakness. Cover for Int Med-Dr Berkowitz. S/P right hip total arthroplasty 04/06/18. S/P colonoscopy 04/06/18 Objective Last Vital Signs Date Time Temp Pulse Resp B/P (MAP) Pulse Ox O2 Delivery O2 Flow Rate FiO2 04/08/18 09:00 Room Air Room Air 04/08/18 08:40 121/70 04/08/18 08:40 70 04/08/18 08:00 96.0 16 93 04/06/18 20:10 3 04/02/18 18:13 98 Laboratory Tests Test 04/07/18 15:00 04/08/18 06:30 White Blood Count 10.3 K/UL (4.8-10.8) 11.1 K/UL (4.8-10.8) H Red Blood Count 2.57 M/UL (4.20-5.40) L 3.13 M/UL (4.20-5.40) L Hemoglobin 6.9 G/DL (12.0-16.0) *L 8.4 G/DL (12.0-16.0) L Hematocrit 21.4 % (37.0-47.0) L 26.5 % (37.0-47.0) L Mean Corpuscular Volume 83 FL (80-99) 85 FL (80-99) Mean Corpuscular Hemoglobin 27.0 PG (27.0-31.0) 26.9 PG (27.0-31.0) L Mean Corpuscular Hemoglobin Concent 32.4 G/DL (32.0-36.0) 31.8 G/DL (32.0-36.0) L Red Cell Distribution Width 15.9 % (11.6-14.8) H 15.2 % (11.6-14.8) H Platelet Count 361 K/UL (150-450) 342 K/UL (150-450) Mean Platelet Volume 6.9 FL (6.5-10.1) 7.4 FL (6.5-10.1) Neutrophils (%) (Auto) % (45.0-75.0) 80.4 % (45.0-75.0) H Lymphocytes (%) (Auto) % (20.0-45.0) 11.1 % (20.0-45.0) L Monocytes (%) (Auto) % (1.0-10.0) 7.7 % (1.0-10.0) Eosinophils (%) (Auto) % (0.0-3.0) 0.6 % (0.0-3.0) Basophils (%) (Auto) % (0.0-2.0) 0.3 % (0.0-2.0) Differential Total Cells Counted 100 Neutrophils % (Manual) 88 % (45-75) H Lymphocytes % (Manual) 5 % (20-45) L Monocytes % (Manual) 7 % (1-10) Eosinophils % (Manual) 0 % (0-3) Basophils % (Manual) 0 % (0-2) Band Neutrophils 0 % (0-8) Platelet Estimate Adequate Platelet Morphology Normal Polychromasia 1+ Hypochromasia 3+ Anisocytosis 1+ Prothrombin Time 13.0 SEC (9.30-11.50) H Prothromb Time International Ratio 1.2 (0.9-1.1) H Activated Partial Thromboplast Time 36 SEC (23-33) H Sodium Level 139 MMOL/L (136-145) Potassium Level 3.9 MMOL/L (3.5-5.1) Chloride Level 107 MMOL/L (98-107) Carbon Dioxide Level 25 MMOL/L (21-32) Anion Gap 7 mmol/L (5-15) Blood Urea Nitrogen 12 mg/dL (7-18) Creatinine 0.8 MG/DL (0.55-1.30) Estimat Glomerular Filtration Rate mL/min (>60) Glucose Level 94 MG/DL (74-106) Calcium Level 8.4 MG/DL (8.5-10.1) L Phosphorus Level 2.7 MG/DL (2.5-4.9) Magnesium Level 1.4 MG/DL (1.8-2.4) L Total Bilirubin 0.7 MG/DL (0.2-1.0) Aspartate Amino Transf (AST/SGOT) 19 U/L (15-37) Alanine Aminotransferase (ALT/SGPT) 14 U/L (12-78) Alkaline Phosphatase 81 U/L (46-116) Total Protein 5.8 G/DL (6.4-8.2) L Albumin 2.1 G/DL (3.4-5.0) L Globulin 3.7 g/dL Albumin/Globulin Ratio 0.6 (1.0-2.7) L Microbiology Date/Time Source Procedure Growth Status 04/06/18 18:02 Hip Right Gram Stain - Final Resulted 04/06/18 18:02 Hip Right Aerobic Culture - Preliminary Resulted 04/06/18 18:02 Hip Right Anaerobic Culture - Preliminary Resulted Intake and Output 04/07/18 04/08/18 19:00 07:00 Intake Total 315 ml 525 ml Balance 315 ml 525 ml Intake Oral 315 ml IV Total 525 ml # Voids 3 3 Objective General Appearance: WD/WN, mild distress, agitated EENT: PERRL/EOMI, normal ENT inspection Neck: non-tender, normal alignment, supple, normal inspection Cardiovascular: normal peripheral pulses, normal rate, regular rhythm, no gallop/murmur, no JVD Respiratory/Chest: chest wall non-tender, lungs clear, normal breath sounds, no accessory muscle use, respiratory distress Abdomen: normal bowel sounds, non tender, soft, no organomegaly, no mass Extremities: normal range of motion Neurologic: fixer boarding room II-XII grossly normal Skin: normal pigmentation, warm/dry Assessment/Plan Problem List: (1) Diabetes mellitus, type II Assessment & Plan: Continue metformin and januvia (2) HTN (hypertension) Assessment & Plan: continue atenolol and cozaar (3) Sick sinus syndrome Assessment & Plan: S/P pacemaker (4) Aortic stenosis (5) Pulmonary hypertension (6) Alzheimer's dementia (7) Dislocation, hip closed Assessment & Plan: S/P right total hip arthroplasty 04/06/18-see ortho note. (8) Rectal bleed Assessment & Plan: S/P colonoscopy 04/06/18=ulcerated hemorrhoid. See GI note. (9) Severe anemia Assessment & Plan: Due to rectal bleed. S/P transfusion 2 units packed RBC Status: progressing Assessment/Plan Discharge planning: post acute care. Aquilino Matthews MD Apr 08, 2018 13:02
[2018-04-08] MEDS: clonazePAM 0.5mg tab ORAL PRN (13:37)
[2018-04-08 16:00] VITALS: BP 120/70
--- NOTE | 2018-04-08 18:49 | General Progress Note ---
Assessment/Plan Assessment/Plan Assessment - constipation - rectal loading due to ulcerated hemorrhoids - Anemia - worse post op - agitation/OBS - dislocated hip - s/p arthroplasty conversion Recommendations - push po - Monitor H&H - transfuse PRN - Ortho f/u Subjective Allergies: Coded Allergies: No Known Allergies (Unverified , 08/10/13) Subjective s/p (R) hip hemiarthroplasty conversion calm NAD d/w RN Objective Last 24 Hour Vital Signs Date Time Temp Pulse Resp B/P (MAP) Pulse Ox O2 Delivery O2 Flow Rate FiO2 04/08/18 16:00 98.0 67 16 120/70 (87) 93 04/08/18 13:35 121/70 04/08/18 12:00 97.9 63 16 115/70 (85) 93 04/08/18 09:00 Room Air Room Air 04/08/18 08:40 121/70 04/08/18 08:40 70 121/70 04/08/18 08:00 96.0 70 16 121/70 (87) 93 04/08/18 06:30 122/62 04/08/18 04:00 97.5 67 16 119/61 (80) 93 04/08/18 00:00 97.7 72 16 124/71 (88) 95 04/07/18 22:30 115/69 04/07/18 21:37 65 125/71 04/07/18 21:00 Room Air Room Air 04/07/18 20:00 97.8 76 16 121/63 (82) 95 Intake and Output 04/07/18 04/08/18 18:59 06:59 Intake Total 315 ml 525 ml Balance 315 ml 525 ml Intake Oral 315 ml IV Total 525 ml # Voids 3 3 Laboratory Tests 04/08/18 06:30: White Blood Count 11.1H, Red Blood Count 3.13L, Hemoglobin 8.4L, Hematocrit 26.5L, Mean Corpuscular Volume 85, Mean Corpuscular Hemoglobin 26.9L, Mean Corpuscular Hemoglobin Concent 31.8L, Red Cell Distribution Width 15.2H, Platelet Count 342, Mean Platelet Volume 7.4, Neutrophils (%) (Auto) 80.4H, Lymphocytes (%) (Auto) 11.1L, Monocytes (%) (Auto) 7.7, Eosinophils (%) (Auto) 0.6, Basophils (%) (Auto) 0.3, Prothrombin Time 13.0H, Prothromb Time International Ratio 1.2H, Activated Partial Thromboplast Time 36H, Sodium Level 139, Potassium Level 3.9, Chloride Level 107, Carbon Dioxide Level 25, Anion Gap 7, Blood Urea Nitrogen 12, Creatinine 0.8, Estimat Glomerular Filtration Rate , Glucose Level 94, Calcium Level 8.4L, Phosphorus Level 2.7, Magnesium Level 1.4L, Total Bilirubin 0.7, Aspartate Amino Transf (AST/SGOT) 19, Alanine Aminotransferase (ALT/SGPT) 14, Alkaline Phosphatase 81, Total Protein 5.8L, Albumin 2.1L, Globulin 3.7, Albumin/Globulin Ratio 0.6L Height (Feet): 5 Height (Inches): 5.00 Weight (Pounds): 136 Objective WDWN NCAT supple CTA RRR abd soft no edema Thalia Grant MD Apr 08, 2018 18:49
[2018-04-08 20:00] VITALS: BP 107/63
[2018-04-08] MEDS: Atorvastatin 20mg tab ORAL SCH (20:34)
[2018-04-08] MEDS: TraZODone 50mg tab ORAL SCH (20:34)
[2018-04-08] MEDS: Sorbitol Solution UD 30ml ORAL SCH (20:35)
[2018-04-09] VITALS: BP 95/59
[2018-04-09] MEDS: D5 1/2NS w/KCl 20mEq 1,000 ML IV SCH ×3 (00:41→18:07)
[2018-04-09 04:00] VITALS: BP 122/53
[2018-04-09] MEDS: sitaGLIPtin 50mg tab ORAL SCH (05:20)
[2018-04-09 06:16] LABS: HEMATOCRIT 24.2 % (37.0-47.0); HEMOGLOBIN 7.7 G/DL (12.0-16.0); MEAN CORPUSCULAR VOLUME 85 FL (80-99); PLATELET COUNT 289 K/UL (150-450); RED BLOOD COUNT 2.86 M/UL (4.20-5.40); RED CELL DISTRIBUTION WIDTH 15.2 % (11.6-14.8); WHITE BLOOD COUNT 9.2 K/UL (4.8-10.8)
[2018-04-09 06:30] LABS: ANION GAP 6 mmol/L (5-15); BLOOD UREA NITROGEN 11 mg/dL (7-18); CALCIUM 7.8 MG/DL (8.5-10.1); CARBON DIOXIDE 24 MMOL/L (21-32); CHLORIDE 109 MMOL/L (98-107); CREATININE 0.7 MG/DL (0.55-1.30); POTASSIUM 3.8 MMOL/L (3.5-5.1); SODIUM 139 MMOL/L (136-145)
[2018-04-09 08:00] VITALS: BP 110/58
[2018-04-09] MEDS: Losartan 50mg tab ORAL SCH (09:02)
[2018-04-09] MEDS: Vitamin D 1000 IU Tab ORAL SCH (09:02)
[2018-04-09] MEDS: Dicyclomine 10mg Cap ORAL SCH ×4 (09:02→21:02)
[2018-04-09] MEDS: metFORMIN 500mg tab ORAL SCH ×2 (09:03→18:06)
[2018-04-09] MEDS: Norco 5mg/325mg tab ORAL PRN (09:39)
--- NOTE | 2018-04-09 11:33 | General Surgery Progress Note ---
General Surgery-Progress Note Subjective Additional Comments no acute events. resting comfortable. no n/v/f/c. Objective Last 24 Hour Vital Signs Date Time Temp Pulse Resp B/P (MAP) Pulse Ox O2 Delivery O2 Flow Rate FiO2 04/09/18 10:09 98.2 04/09/18 09:02 110/58 04/09/18 09:01 59 110/58 04/09/18 09:00 Room Air Room Air 04/09/18 09:00 59 110/58 04/09/18 08:00 98.2 59 18 110/58 (75) 94 04/09/18 05:20 122/53 04/09/18 04:00 97.4 64 16 122/53 (76) 94 04/09/18 00:00 98.7 60 16 95/59 (71) 100 04/08/18 22:08 120/61 04/08/18 21:00 Room Air Room Air 04/08/18 20:35 66 107/63 04/08/18 20:00 99.1 66 16 107/63 (78) 92 04/08/18 16:00 98.0 67 16 120/70 (87) 93 04/08/18 13:35 121/70 04/08/18 12:00 97.9 63 16 115/70 (85) 93 I&O Intake and Output 04/08/18 04/09/18 19:00 07:00 Intake Total 1975 ml 675 ml Balance 1975 ml 675 ml Intake Oral 1000 ml IV Total 975 ml 675 ml # Voids 3 3 # Bowel Movements 1 Dressing: saturated, other Wound: other Drains: other Cardiovascular: RSR Respiratory: clear Abdomen: soft, flat, non-tender, present bowel sounds Extremities: no cyanosis, other Laboratory Tests Test 04/09/18 05:25 White Blood Count 9.2 K/UL (4.8-10.8) Red Blood Count 2.86 M/UL (4.20-5.40) L Hemoglobin 7.7 G/DL (12.0-16.0) L Hematocrit 24.2 % (37.0-47.0) L Mean Corpuscular Volume 85 FL (80-99) Mean Corpuscular Hemoglobin 27.1 PG (27.0-31.0) Mean Corpuscular Hemoglobin Concent 32.0 G/DL (32.0-36.0) Red Cell Distribution Width 15.2 % (11.6-14.8) H Platelet Count 289 K/UL (150-450) Mean Platelet Volume 7.5 FL (6.5-10.1) Neutrophils (%) (Auto) % (45.0-75.0) Lymphocytes (%) (Auto) % (20.0-45.0) Monocytes (%) (Auto) % (1.0-10.0) Eosinophils (%) (Auto) % (0.0-3.0) Basophils (%) (Auto) % (0.0-2.0) Sodium Level 139 MMOL/L (136-145) Potassium Level 3.8 MMOL/L (3.5-5.1) Chloride Level 109 MMOL/L (98-107) H Carbon Dioxide Level 24 MMOL/L (21-32) Anion Gap 6 mmol/L (5-15) Blood Urea Nitrogen 11 mg/dL (7-18) Creatinine 0.7 MG/DL (0.55-1.30) Estimat Glomerular Filtration Rate mL/min (>60) Glucose Level 105 MG/DL (74-106) Calcium Level 7.8 MG/DL (8.5-10.1) L Plan Problems: (1) Sacral decubitus ulcer, stage III Assessment & Plan: Multiple pressure injuries to sacrum and R hip. Four individual pressure injuries in close proximity noted to sacrum,Total area measuring (L)2cm x (W)7 cm., each wound with 100% yellow slough with red margins. Non-blanchable erythema periwound. Small pressure injury noted to L buttocks (L)0.4cm x(W)0.5cm with 100% slough. Full thickness pressure injury to R hip at historical surgical incision (L) 1.1cm x(W)0.9cm ,with 90% yellow slough noted. Non-blanchable erythema noted periwound ,an area of (L)7cm x (W)6.6cm . Stable dry eschar medial R heel. Periwound without erythema or induration. Wounds present upon admission and will be cared for during hospital stay Tx.Plan: Reposition at least every 2hours or as tolerated. Air fluidized mattress. Apply Cavilon wipes to heels and off-load heels with pillow. Cleanse wounds Sacrum with Saline. Apply Therahoney to wounds .Cavilon to borders and cover with Optifoam Drsg. Cleanse R hip wound with Saline.Apply Therahoney.Apply Cavilon wipe to red area periwound and cover with Optifoam drsg Daily and prn. Will likely need excisional vs non excisional debridement of sloth down to healthy viable tissue. may consider during hospitalization once ortho and GI care completed. can be done as outpatient Nutritional support Okay to d/c from surgical standpoint with outpatient follow up (2) Failure to thrive Assessment & Plan: elderly female with dementia albumin 2 multiple decubitus ulcers nutritional consult increase protein and Caloric intake will need optimization to help heal wounds DAILY ESTIMATED NEEDS: Needs based on Wound, DM, wasting / 51kg 30-35 kcals/kg [id number] total kcals 1.25-1.5 g protein/kg 64-77 g total protein NUTRITION DIAGNOSIS: * Increased kcal/prot needs R/T wound healing as evidenced by pt w/ stage 3 sacral and R hip wounds, refer to WC eval. 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 Sher Younger Apr 09, 2018 11:33
[2018-04-09] MEDS: clonazePAM 0.5mg tab ORAL PRN (11:49)
[2018-04-09 12:00] VITALS: BP 141/65
--- NOTE | 2018-04-09 12:18 | Internal Med Progress Note ---
Subjective Date of Service: Apr 09, 2018 Physician Name CassieAquilino Attending Physician Carlos Alberto Berkowitz MD Current Medications Medications (Trade) Dose Ordered Sig/Yi Route PRN Reason Start Time Stop Time Status Last Admin Dose Admin Acetaminophen (Tylenol) 650 mg ONCE ORAL 04/09/18 11:00 04/09/18 15:00 04/09/18 11:23 Acetaminophen (Tylenol) 650 mg Q6H PRN ORAL Mild Pain/Temp > 100.5 04/02/18 17:15 05/02/18 17:14 04/07/18 12:39 Acetaminophen/ Hydrocodone Bitart ([place] 5/325) 1 tab Q6H PRN ORAL Severe Pain (Pain Scale 7-10) 04/02/18 20:30 04/09/18 20:29 04/09/18 09:39 Atenolol (Tenormin) 50 mg Q12HR ORAL 04/02/18 21:00 05/02/18 20:59 04/09/18 09:01 Atorvastatin Calcium (Lipitor) 20 mg BEDTIME ORAL 04/03/18 21:00 05/03/18 20:59 04/08/18 20:34 Clonazepam (KlonoPIN) 0.5 mg Q6H PRN ORAL For Anxiety 04/02/18 17:30 04/09/18 17:29 04/09/18 11:49 Clonidine HCl (Catapres Tab) 0.1 mg EVERY 8 HOURS ORAL 04/02/18 22:00 05/02/18 21:59 04/09/18 05:20 Dextrose (Dextrose 50%) 25 ml Q30M PRN IV bs 60-69 04/06/18 15:30 05/06/18 15:29 Dextrose/ Electrolytes 1,000 ml @ 75 mls/hr [id number] IV 04/06/18 18:30 05/06/18 18:29 04/09/18 00:41 Dicyclomine HCl (Bentyl) 10 mg QID ORAL 04/02/18 18:00 05/02/18 17:59 04/09/18 09:02 Diphenhydramine HCl (Benadryl) 25 mg ONCE ORAL 04/09/18 11:00 04/09/18 15:00 04/09/18 11:22 Haloperidol Lactate (Haldol) 5 mg Q6H PRN IM Agitation 04/05/18 10:45 05/05/18 10:44 Lorazepam (Ativan 2mg/ml 1ml) 1 mg Q4H PRN IM For Anxiety 04/05/18 10:45 04/12/18 10:44 04/07/18 06:28 Losartan Potassium (Cozaar) 50 mg DAILY ORAL 04/06/18 09:00 05/03/18 08:59 04/09/18 09:02 Metformin HCl (Glucophage) 500 mg BID ORAL 04/03/18 09:00 05/03/18 08:59 04/09/18 09:03 Potassium Chloride (K-Dur) 10 meq DAILY ORAL 04/03/18 09:00 05/03/18 08:59 04/09/18 09:02 Sitagliptin Phosphate (Januvia) 50 mg ACBREAKFAST ORAL 04/03/18 06:30 05/03/18 06:29 04/09/18 05:20 Sorbitol (Sorbitol) 45 ml QHS ORAL 04/08/18 21:00 05/08/18 20:59 04/08/18 20:35 Trazodone HCl (Desyrel) 50 mg BEDTIME ORAL 04/02/18 21:00 05/02/18 20:59 04/08/18 20:34 Vitamin D (Vitamin D) 5,000 intlu DAILY ORAL 04/03/18 09:00 05/03/18 08:59 04/09/18 09:02 Allergies: Coded Allergies: No Known Allergies (Unverified , 08/10/13) ROS Limited/Unobtainable: No Constitutional: Reports: no symptoms HEENT: Reports: no symptoms Cardiovascular: Reports: no symptoms Respiratory: Reports: no symptoms Gastrointestinal/Abdominal: Reports: no symptoms Genitourinary: Reports: no symptoms Neurologic/Psychiatric: Reports: no symptoms Subjective 82 YO F admitted with generalized weakness. Cover for Int Aakash-Dr Berkowitz. S/P right hip total arthroplasty 04/06/18. S/P colonoscopy 04/06/18 Objective Last Vital Signs Date Time Temp Pulse Resp B/P (MAP) Pulse Ox O2 Delivery O2 Flow Rate FiO2 04/09/18 12:00 98.1 71 18 141/65 (90) 93 04/09/18 09:00 Room Air Room Air 11/20/18 20:10 3 04/02/18 18:13 98 Laboratory Tests Test 04/09/18 05:25 White Blood Count 9.2 K/UL (4.8-10.8) Red Blood Count 2.86 M/UL (4.20-5.40) L Hemoglobin 7.7 G/DL (12.0-16.0) L Hematocrit 24.2 % (37.0-47.0) L Mean Corpuscular Volume 85 FL (80-99) Mean Corpuscular Hemoglobin 27.1 PG (27.0-31.0) Mean Corpuscular Hemoglobin Concent 32.0 G/DL (32.0-36.0) Red Cell Distribution Width 15.2 % (11.6-14.8) H Platelet Count 289 K/UL (150-450) Mean Platelet Volume 7.5 FL (6.5-10.1) Neutrophils (%) (Auto) % (45.0-75.0) Lymphocytes (%) (Auto) % (20.0-45.0) Monocytes (%) (Auto) % (1.0-10.0) Eosinophils (%) (Auto) % (0.0-3.0) Basophils (%) (Auto) % (0.0-2.0) Sodium Level 139 MMOL/L (136-145) Potassium Level 3.8 MMOL/L (3.5-5.1) Chloride Level 109 MMOL/L (98-107) H Carbon Dioxide Level 24 MMOL/L (21-32) Anion Gap 6 mmol/L (5-15) Blood Urea Nitrogen 11 mg/dL (7-18) Creatinine 0.7 MG/DL (0.55-1.30) Estimat Glomerular Filtration Rate mL/min (>60) Glucose Level 105 MG/DL (74-106) Calcium Level 7.8 MG/DL (8.5-10.1) L Microbiology Date/Time Source Procedure Growth Status 04/06/18 18:02 Hip Right Gram Stain - Final Resulted 04/06/18 18:02 Aerobic Culture - Preliminary Staphylococcus Aureus Staphylococcus Sp Coag Neg Resulted 04/06/18 18:02 Hip Right Anaerobic Culture - Preliminary Resulted Intake and Output 04/08/18 04/09/18 19:00 07:00 Intake Total 1975 ml 675 ml Balance 1975 ml 675 ml Intake Oral 1000 ml IV Total 975 ml 675 ml # Voids 3 3 # Bowel Movements 1 Objective General Appearance: WD/WN, mild distress, agitated EENT: PERRL/EOMI, normal ENT inspection Neck: non-tender, normal alignment, supple, normal inspection Cardiovascular: normal peripheral pulses, normal rate, regular rhythm, no gallop/murmur, no JVD Respiratory/Chest: chest wall non-tender, lungs clear, normal breath sounds, no accessory muscle use, respiratory distress Abdomen: normal bowel sounds, non tender, soft, no organomegaly, no mass Extremities: normal range of motion 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 (8) Rectal bleed Assessment & Plan: S/P colonoscopy 04/06/18=ulcerated hemorrhoid. See GI note. (9) Severe anemia Assessment & Plan: Due to rectal bleed. S/P transfusion 2 units packed RBC . Transfuse 1 unit PRBC today Status: progressing Assessment/Plan Discharge planning: post acute care. Aquilino Matthews MD Apr 09, 2018 12:17
--- NOTE | 2018-04-09 12:55 | Pulmonology Progress Note ---
Assessment/Plan Problems: (1) Hip dislocation, right (2) Sacral decubitus ulcer, stage III (3) Protein-calorie malnutrition, severe (4) Psychosis (5) CAD (coronary artery disease) (6) Pulmonary hypertension (7) Aortic stenosis (8) Pacemaker (9) Diabetes mellitus, type II (10) HTN (hypertension) (11) Alzheimer's dementia Assessment/Plan prbc today again check h/h and Pt, ptt in symptomatic treatment f/u ortho recommendations wound care consult nutrition evaluation social service consult check electrolytes dvt prophylaxis Subjective ROS Limited/Unobtainable: No Constitutional: Reports: no symptoms HEENT: Repors: no symptoms Allergies: Coded Allergies: No Known Allergies (Unverified , 08/10/13) Objective Last 24 Hour Vital Signs Date Time Temp Pulse Resp B/P (MAP) Pulse Ox O2 Delivery O2 Flow Rate FiO2 04/09/18 12:00 98.1 71 18 141/65 (90) 93 04/09/18 11:53 98.2 04/09/18 10:09 98.2 04/09/18 09:02 110/58 04/09/18 09:01 59 110/58 04/09/18 09:00 Room Air Room Air 04/09/18 09:00 59 110/58 04/09/18 08:00 98.2 59 18 110/58 (75) 94 04/09/18 05:20 122/53 04/09/18 04:00 97.4 64 16 122/53 (76) 94 04/09/18 00:00 98.7 60 16 95/59 (71) 100 04/08/18 22:08 120/61 04/08/18 21:00 Room Air Room Air 04/08/18 20:35 66 107/63 04/08/18 20:00 99.1 66 16 107/63 (78) 92 04/08/18 16:00 98.0 67 16 120/70 (87) 93 04/08/18 13:35 121/70 Intake and Output 04/08/18 04/09/18 19:00 07:00 Intake Total 1975 ml 675 ml Balance 1975 ml 675 ml Intake Oral 1000 ml IV Total 975 ml 675 ml # Voids 3 3 # Bowel Movements 1 General Appearance: WD/WN HEENT: normocephalic, atraumatic Respiratory/Chest: chest wall non-tender, lungs clear Cardiovascular: normal peripheral pulses, normal rate Abdomen: normal bowel sounds, soft, non tender Genitourinary: normal external genitalia Extremities: no cyanosis 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 grossly normal Lymphatic: no neck adenopathy Microbiology Date/Time Source Procedure Growth Status 04/06/18 18:02 Hip Right Gram Stain - Final Resulted 04/06/18 18:02 Aerobic Culture - Preliminary Staphylococcus Aureus Staphylococcus Sp Coag Neg Resulted 04/06/18 18:02 Hip Right Anaerobic Culture - Preliminary Resulted Laboratory Tests 04/09/18 05:25: White Blood Count 9.2, Red Blood Count 2.86L, Hemoglobin 7.7L, Hematocrit 24.2L , Mean Corpuscular Volume 85, Mean Corpuscular Hemoglobin 27.1, Mean Corpuscular Hemoglobin Concent 32.0, Red Cell Distribution Width 15.2H, Platelet Count 289, Mean Platelet Volume 7.5, Neutrophils (%) (Auto) , Lymphocytes (%) (Auto) , Monocytes (%) (Auto) , Eosinophils (%) (Auto) , Basophils (%) (Auto) , Sodium Level 139, Potassium Level 3.8, Chloride Level 109H, Carbon Dioxide Level 24, Anion Gap 6, Blood Urea Nitrogen 11, Creatinine 0.7, Estimat Glomerular Filtration Rate , Glucose Level 105, Calcium Level 7.8L Current Medications Medications (Trade) Dose Ordered Sig/Yi Route PRN Reason Start Time Stop Time Status Last Admin Dose Admin Acetaminophen (Tylenol) 650 mg ONCE ORAL 04/09/18 11:00 04/09/18 15:00 04/09/18 11:23 Acetaminophen (Tylenol) 650 mg Q6H PRN ORAL Mild Pain/Temp > 100.5 04/02/18 17:15 05/02/18 17:14 04/07/18 12:39 Acetaminophen/ Hydrocodone Bitart ([place] 5/325) 1 tab Q6H PRN ORAL Severe Pain (Pain Scale 7-10) 04/02/18 20:30 04/09/18 20:29 04/09/18 09:39 Atenolol (Tenormin) 50 mg Q12HR ORAL 04/02/18 21:00 05/02/18 20:59 04/09/18 09:01 Atorvastatin Calcium (Lipitor) 20 mg BEDTIME ORAL 04/03/18 21:00 05/03/18 20:59 04/08/18 20:34 Clonazepam (KlonoPIN) 0.5 mg Q6H PRN ORAL For Anxiety 04/02/18 17:30 04/09/18 17:29 04/09/18 11:49 Clonidine HCl (Catapres Tab) 0.1 mg EVERY 8 HOURS ORAL 04/02/18 22:00 05/02/18 21:59 04/09/18 05:20 Dextrose (Dextrose 50%) 25 ml Q30M PRN IV bs 60-69 04/06/18 15:30 05/06/18 15:29 Dextrose/ Electrolytes 1,000 ml @ 75 mls/hr [id number] IV 04/06/18 18:30 05/06/18 18:29 04/09/18 00:41 Dicyclomine HCl (Bentyl) 10 mg QID ORAL 04/02/18 18:00 05/02/18 17:59 04/09/18 09:02 Diphenhydramine HCl (Benadryl) 25 mg ONCE ORAL 04/09/18 11:00 04/09/18 15:00 04/09/18 11:22 Haloperidol Lactate (Haldol) 5 mg Q6H PRN IM Agitation 04/05/18 10:45 05/05/18 10:44 Lorazepam (Ativan 2mg/ml 1ml) 1 mg Q4H PRN IM For Anxiety 04/05/18 10:45 04/12/18 10:44 04/07/18 06:28 Losartan Potassium (Cozaar) 50 mg DAILY ORAL 04/06/18 09:00 05/03/18 08:59 04/09/18 09:02 Metformin HCl (Glucophage) 500 mg BID ORAL 04/03/18 09:00 05/03/18 08:59 04/09/18 09:03 Potassium Chloride (K-Dur) 10 meq DAILY ORAL 04/03/18 09:00 05/03/18 08:59 04/09/18 09:02 Sitagliptin Phosphate (Januvia) 50 mg ACBREAKFAST ORAL 04/03/18 06:30 05/03/18 06:29 04/09/18 05:20 Sorbitol (Sorbitol) 45 ml QHS ORAL 04/08/18 21:00 05/08/18 20:59 04/08/18 20:35 Trazodone HCl (Desyrel) 50 mg BEDTIME ORAL 04/02/18 21:00 05/02/18 20:59 04/08/18 20:34 Vitamin D (Vitamin D) 5,000 intlu DAILY ORAL 04/03/18 09:00 05/03/18 08:59 04/09/18 09:02 Rod Mancera MD Apr 09, 2018 12:55
[2018-04-09 14:57] LABS: ANION GAP 9 mmol/L (5-15); BLOOD UREA NITROGEN 13 mg/dL (7-18); CALCIUM 7.9 MG/DL (8.5-10.1); CARBON DIOXIDE 21 MMOL/L (21-32); CHLORIDE 107 MMOL/L (98-107); CREATININE 0.7 MG/DL (0.55-1.30); POTASSIUM 4.4 MMOL/L (3.5-5.1); SODIUM 137 MMOL/L (136-145)
[2018-04-09 14:58] LABS: INR 1.2 (0.9-1.1)
[2018-04-09] MEDS: LORazepam Inj 2mg/ml 1ml IM PRN ×2 (15:09→23:30)
[2018-04-09 15:11] LABS: HEMATOCRIT 30.7 % (37.0-47.0); HEMOGLOBIN 9.7 G/DL (12.0-16.0); MEAN CORPUSCULAR VOLUME 84 FL (80-99); PLATELET COUNT 304 K/UL (150-450); RED BLOOD COUNT 3.63 M/UL (4.20-5.40); RED CELL DISTRIBUTION WIDTH 15.3 % (11.6-14.8); WHITE BLOOD COUNT 13.9 K/UL (4.8-10.8)
[2018-04-09 16:00] VITALS: BP 127/74
[2018-04-09 20:00] VITALS: BP 135/70
--- NOTE | 2018-04-09 20:07 | General Progress Note ---
Assessment/Plan Assessment/Plan Assessment - constipation - rectal loading due to ulcerated hemorrhoids - Anemia - worse post op - agitation/OBS - dislocated hip - s/p arthroplasty conversion Recommendations - push po - Monitor H&H - transfuse PRN - Ortho f/u Subjective Allergies: Coded Allergies: No Known Allergies (Unverified , 08/10/13) Subjective s/p (R) hip hemiarthroplasty conversion calm NAD d/w RN no further rectal bleeding Objective Last 24 Hour Vital Signs Date Time Temp Pulse Resp B/P (MAP) Pulse Ox O2 Delivery O2 Flow Rate FiO2 04/09/18 16:00 98.1 74 18 127/74 (91) 100 04/09/18 13:16 141/65 04/09/18 12:00 98.1 71 18 141/65 (90) 93 04/09/18 11:53 98.2 04/09/18 10:09 98.2 04/09/18 09:02 110/58 04/09/18 09:01 59 110/58 04/09/18 09:00 Room Air Room Air 04/09/18 09:00 59 110/58 04/09/18 08:00 98.2 59 18 110/58 (75) 94 04/09/18 05:20 122/53 04/09/18 04:00 97.4 64 16 122/53 (76) 94 04/09/18 00:00 98.7 60 16 95/59 (71) 100 04/08/18 22:08 120/61 04/08/18 21:00 Room Air Room Air 04/08/18 20:35 66 107/63 Intake and Output 04/08/18 04/09/18 18:59 06:59 Intake Total 1900 ml 750 ml Balance 1900 ml 750 ml Intake Oral 1000 ml IV Total 900 ml 750 ml # Voids 3 3 # Bowel Movements 1 Laboratory Tests 04/09/18 05:25: White Blood Count 9.2, Red Blood Count 2.86L, Hemoglobin 7.7L, Hematocrit 24.2L , Mean Corpuscular Volume 85, Mean Corpuscular Hemoglobin 27.1, Mean Corpuscular Hemoglobin Concent 32.0, Red Cell Distribution Width 15.2H, Platelet Count 289, Mean Platelet Volume 7.5, Neutrophils (%) (Auto) , Lymphocytes (%) (Auto) , Monocytes (%) (Auto) , Eosinophils (%) (Auto) , Basophils (%) (Auto) , Sodium Level 139, Potassium Level 3.8, Chloride Level 109H, Carbon Dioxide Level 24, Anion Gap 6, Blood Urea Nitrogen 11, Creatinine 0.7, Estimat Glomerular Filtration Rate , Glucose Level 105, Calcium Level 7.8L 04/09/18 14:40: White Blood Count 13.9#H, Red Blood Count 3.63L, Hemoglobin 9.7L, Hematocrit 30.7L, Mean Corpuscular Volume 84, Mean Corpuscular Hemoglobin 26.8L, Mean Corpuscular Hemoglobin Concent 31.7L, Red Cell Distribution Width 15.3H, Platelet Count 304, Mean Platelet Volume 7.6, Neutrophils (%) (Auto) , Lymphocytes (%) (Auto) , Monocytes (%) (Auto) , Eosinophils (%) (Auto) , Basophils (%) (Auto) , Sodium Level 137, Potassium Level 4.4, Chloride Level 107 , Carbon Dioxide Level 21, Anion Gap 9, Blood Urea Nitrogen 13, Creatinine 0.7, Estimat Glomerular Filtration Rate , Glucose Level 118H, Calcium Level 7.9L, Differential Total Cells Counted 100, Neutrophils % (Manual) 93H, Lymphocytes % (Manual) 5L, Monocytes % (Manual) 2, Eosinophils % (Manual) 0, Basophils % ( Manual) 0, Band Neutrophils 0, Platelet Estimate Adequate, Platelet Morphology Normal, Polychromasia 1+, Hypochromasia 2+, Anisocytosis 1+, Prothrombin Time 12.4H, Prothromb Time International Ratio 1.2H, Activated Partial Thromboplast Time 22L Height (Feet): 5 Height (Inches): 5.00 Weight (Pounds): 136 Objective WDWN NCAT supple CTA RRR abd soft no edema Thalia Grant MD Apr 09, 2018 20:07
[2018-04-09] MEDS: Sorbitol Solution UD 30ml ORAL SCH ×2 (21:00→21:02)
[2018-04-09] MEDS: TraZODone 50mg tab ORAL SCH (21:01)
[2018-04-09] MEDS: Atorvastatin 20mg tab ORAL SCH (21:01)
[2018-04-10] VITALS: BP 129/71
[2018-04-10 04:00] VITALS: BP 100/52
[2018-04-10] MEDS: sitaGLIPtin 50mg tab ORAL SCH (06:21)
[2018-04-10 06:23] LABS: BASOPHILS % (AUTO) 0.3 % (0.0-2.0); EOSINOPHILS % (AUTO) 0.8 % (0.0-3.0); HEMATOCRIT 29.7 % (37.0-47.0); HEMOGLOBIN 10.1 G/DL (12.0-16.0); LYMPHOCYTES % (AUTO) 15.3 % (20.0-45.0); MEAN CORPUSCULAR VOLUME 84 FL (80-99); MONOCYTES % (AUTO) 6.8 % (1.0-10.0); NEUTROPHILS % (AUTO) 76.8 % (45.0-75.0); PLATELET COUNT 295 K/UL (150-450); RED BLOOD COUNT 3.53 M/UL (4.20-5.40); RED CELL DISTRIBUTION WIDTH 15.1 % (11.6-14.8); WHITE BLOOD COUNT 9.9 K/UL (4.8-10.8)
[2018-04-10 06:30] LABS: ALANINE AMINOTRANSFERASE 11 U/L (12-78); ALBUMIN 1.8 G/DL (3.4-5.0); ALBUMIN/GLOBULIN RATIO 0.5 (1.0-2.7); ALKALINE PHOSPHATASE 88 U/L (46-116); ANION GAP 8 mmol/L (5-15); ASPARTATE AMINO TRANSFERASE 24 U/L (15-37); BILIRUBIN,TOTAL 0.9 MG/DL (0.2-1.0); BLOOD UREA NITROGEN 13 mg/dL (7-18); CALCIUM 8.1 MG/DL (8.5-10.1); CARBON DIOXIDE 22 MMOL/L (21-32); CHLORIDE 109 MMOL/L (98-107); CREATININE 0.6 MG/DL (0.55-1.30); POTASSIUM 4.2 MMOL/L (3.5-5.1); SODIUM 139 MMOL/L (136-145)
[2018-04-10 06:34] LABS: PHOSPHORUS 2.2 MG/DL (2.5-4.9)
[2018-04-10 08:00] VITALS: BP 127/60
--- NOTE | 2018-04-10 08:05 | Pulmonology Progress Note ---
Assessment/Plan Assessment/Plan ASSESSMENT recurrent dislocation right hip hemiarthroplasty s/p 04/06 conversion to total hip arthroplasty ulcerated internal hemorrhoids s/p flexible sigmoidoscopy anemia , s/p blood transfusion severe protein calorie malnutrition electrolytes imbalance sacral decub stage III, present on admission diabetes mellitus type 2 hypertension CAD with hx of NSTEMI aortic stenosis pulmonary hypertension Alzheimer dementia sick sinus syndrome , status post pacemaker implantation e/lyte imbalance ( low Mg and P) PLAN OF CARE Med Surg floor s/p R JEFFERY hip precautions PT/OT pain management bowel regimen s/p flexible sigmoidoscopy , no evidence of active bleeding colonoscopy later with consent of family fup with Gi recs anemia workup noted , s/p 2 u PRBC check ferritin level , may benefit from Venofer IV fluids monitor renal parameters ,electrolytes correct electrolytes prn, today correct Mg and P BP management with BB and ARB continue statin BS management with metformin and Januvia nutritional recommendations implemented in plan of care psychiatrist follow on trazodone according to psychiatrist, patient lacks capacity to make decisions supportive care wound care as per surgeon recommendations case discussed and evaluated by supervising physician Subjective Allergies: Coded Allergies: No Known Allergies (Unverified , 08/10/13) Subjective no fever , leukocytosis resolved elevated CRP, ESR WNL no signs of distress HH stable low P and Mg Objective Last 24 Hour Vital Signs Date Time Temp Pulse Resp B/P (MAP) Pulse Ox O2 Delivery O2 Flow Rate FiO2 04/10/18 06:00 100/52 04/10/18 04:00 98.2 67 20 100/52 (68) 94 04/10/18 00:00 97.4 69 19 129/71 (90) 99 04/09/18 21:00 Room Air Room Air 04/09/18 20:00 97.0 80 18 135/70 (91) 98 04/09/18 16:00 98.1 74 18 127/74 (91) 100 04/09/18 13:16 141/65 04/09/18 12:00 98.1 71 18 141/65 (90) 93 04/09/18 11:53 98.2 04/09/18 10:09 98.2 04/09/18 09:02 110/58 04/09/18 09:01 59 110/58 04/09/18 09:00 Room Air Room Air 04/09/18 09:00 59 110/58 Intake and Output 11/23/18 11/24/18 19:00 07:00 Intake Total 713 ml Balance 713 ml Intake Oral 118 ml IV Total 595 ml # Voids 1 2 # Bowel Movements 1 Objective General Appearance: no acute distress, awake, confused elderly [place] speaking female in NAD HEENT: normocephalic, atraumatic, anicteric Respiratory/Chest: lungs clear - with moderate air exchange Cardiovascular: normal rate Abdomen: soft, non tender, non distended Extremities: no edema Skin: R hip dressing intact Neurologic/Psychiatric: abnormal gait - bedridden , awake, but very confused Musculoskeletal: atrophy - BLE Laboratory Tests 04/09/18 14:40: White Blood Count 13.9#H, Red Blood Count 3.63L, Hemoglobin 9.7L, Hematocrit 30.7L, Mean Corpuscular Volume 84, Mean Corpuscular Hemoglobin 26.8L, Mean Corpuscular Hemoglobin Concent 31.7L, Red Cell Distribution Width 15.3H, Platelet Count 304, Mean Platelet Volume 7.6, Neutrophils (%) (Auto) , Lymphocytes (%) (Auto) , Monocytes (%) (Auto) , Eosinophils (%) (Auto) , Basophils (%) (Auto) , Differential Total Cells Counted 100, Neutrophils % ( Manual) 93H, Lymphocytes % (Manual) 5L, Monocytes % (Manual) 2, Eosinophils % ( Manual) 0, Basophils % (Manual) 0, Band Neutrophils 0, Platelet Estimate Adequate, Platelet Morphology Normal, Polychromasia 1+, Hypochromasia 2+, Anisocytosis 1+, Prothrombin Time 12.4H, Prothromb Time International Ratio 1.2H , Activated Partial Thromboplast Time 22L, Sodium Level 137, Potassium Level 4.4 , Chloride Level 107, Carbon Dioxide Level 21, Anion Gap 9, Blood Urea Nitrogen 13, Creatinine 0.7, Estimat Glomerular Filtration Rate , Glucose Level 118H, Calcium Level 7.9L 04/10/18 05:10: White Blood Count 9.9, Red Blood Count 3.53L, Hemoglobin 10.1L, Hematocrit 29.7L , Mean Corpuscular Volume 84, Mean Corpuscular Hemoglobin 28.6, Mean Corpuscular Hemoglobin Concent 33.9, Red Cell Distribution Width 15.1H, Platelet Count 295, Mean Platelet Volume 6.9, Neutrophils (%) (Auto) 76.8H, Lymphocytes (%) (Auto) 15.3L, Monocytes (%) (Auto) 6.8, Eosinophils (%) (Auto) 0.8, Basophils (%) (Auto) 0.3, Sodium Level 139, Potassium Level 4.2, Chloride Level 109H, Carbon Dioxide Level 22, Anion Gap 8, Blood Urea Nitrogen 13, Creatinine 0.6, Estimat Glomerular Filtration Rate , Glucose Level 102, Calcium Level 8.1L, Erythrocyte Sedimentation Rate [Pending], Phosphorus Level 2.2L, Magnesium Level 1.4L, Total Bilirubin 0.9, Aspartate Amino Transf (AST/SGOT) 24 , Alanine Aminotransferase (ALT/SGPT) 11L, Alkaline Phosphatase 88, C-Reactive Protein, Quantitative 11.7H, Total Protein 5.6L, Albumin 1.8L, Globulin 3.8, Albumin/Globulin Ratio 0.5L Current Medications Medications (Trade) Dose Ordered Sig/Yi Route PRN Reason Start Time Stop Time Status Last Admin Dose Admin Acetaminophen (Tylenol) 650 mg Q6H PRN ORAL Mild Pain/Temp > 100.5 04/02/18 17:15 05/02/18 17:14 04/07/18 12:39 Atenolol (Tenormin) 50 mg Q12HR ORAL 04/02/18 21:00 05/02/18 20:59 04/09/18 09:01 Atorvastatin Calcium (Lipitor) 20 mg BEDTIME ORAL 04/03/18 21:00 05/03/18 20:59 04/09/18 21:01 Clonidine HCl (Catapres Tab) 0.1 mg EVERY 8 HOURS ORAL 04/02/18 22:00 05/02/18 21:59 04/09/18 13:16 Dextrose (Dextrose 50%) 25 ml Q30M PRN IV bs 60-69 04/06/18 15:30 05/06/18 15:29 Dextrose/ Electrolytes 1,000 ml @ 75 mls/hr [id number] IV 04/06/18 18:30 05/06/18 18:29 04/09/18 18:07 Dicyclomine HCl (Bentyl) 10 mg QID ORAL 04/02/18 18:00 05/02/18 17:59 04/09/18 21:02 Haloperidol Lactate (Haldol) 5 mg Q6H PRN IM Agitation 04/05/18 10:45 05/05/18 10:44 Lorazepam (Ativan 2mg/ml 1ml) 1 mg Q4H PRN IM For Anxiety 04/05/18 10:45 04/12/18 10:44 04/09/18 23:30 Losartan Potassium (Cozaar) 50 mg DAILY ORAL 04/06/18 09:00 05/03/18 08:59 04/09/18 09:02 Metformin HCl (Glucophage) 500 mg BID ORAL 04/03/18 09:00 05/03/18 08:59 04/09/18 18:06 Potassium Chloride (K-Dur) 10 meq DAILY ORAL 04/03/18 09:00 05/03/18 08:59 04/09/18 09:02 Sitagliptin Phosphate (Januvia) 50 mg ACBREAKFAST ORAL 04/03/18 06:30 05/03/18 06:29 04/10/18 06:21 Sorbitol (Sorbitol) 45 ml QHS ORAL 04/08/18 21:00 05/08/18 20:59 04/08/18 20:35 Trazodone HCl (Desyrel) 50 mg BEDTIME ORAL 04/02/18 21:00 05/02/18 20:59 04/09/18 21:01 Vitamin D (Vitamin D) 5,000 intlu DAILY ORAL 04/03/18 09:00 05/03/18 08:59 04/09/18 09:02 Stormy Morel NP Apr 10, 2018 08:05
[2018-04-10] MEDS: Vitamin D 1000 IU Tab ORAL SCH (08:34)
[2018-04-10] MEDS: Losartan 50mg tab ORAL SCH (08:35)
[2018-04-10] MEDS: Dicyclomine 10mg Cap ORAL SCH ×4 (08:35→20:39)
[2018-04-10] MEDS: metFORMIN 500mg tab ORAL SCH ×2 (08:35→17:07)
[2018-04-10] MEDS ORDERED: LORazepam Inj 2mg/ml 1ml IM PRN (09:00)
[2018-04-10] MEDS ORDERED: Albuterol/Ipratropium 3ml neb HHN PRN (09:00)
[2018-04-10] MEDS: Phospha 250 Neutral tab ORAL SCH ×3 (09:20→17:07)
[2018-04-10] MEDS ORDERED: Norco 5mg/325mg tab ORAL PRN (11:30)
[2018-04-10] MEDS: Norco 5mg/325mg tab ORAL PRN ×2 (11:35→22:03)
[2018-04-10 12:00] VITALS: BP 131/81
--- NOTE | 2018-04-10 15:00 | Internal Med Progress Note ---
Subjective Date of Service: Apr 10, 2018 Physician Name CassieAquilino Attending Physician Carlos Alberto Berkowitz MD Current Medications Medications (Trade) Dose Ordered Sig/Yi Route PRN Reason Start Time Stop Time Status Last Admin Dose Admin Acetaminophen (Tylenol) 650 mg Q6H PRN ORAL Mild Pain/Temp > 100.5 04/02/18 17:15 05/02/18 17:14 04/07/18 12:39 Acetaminophen/ Hydrocodone Bitart ([place] 5/325) 1 tab Q6H PRN ORAL PAIN 4-10 04/10/18 11:30 04/17/18 11:29 04/10/18 11:35 Albuterol/ Ipratropium (Albuterol/ Ipratropium) 3 ml Q4H PRN HHN Shortness of Breath 04/10/18 09:00 04/15/18 08:59 Atenolol (Tenormin) 50 mg Q12HR ORAL 04/02/18 21:00 05/02/18 20:59 04/09/18 09:01 Atorvastatin Calcium (Lipitor) 20 mg BEDTIME ORAL 04/03/18 21:00 05/03/18 20:59 04/09/18 21:01 Clonidine HCl (Catapres Tab) 0.1 mg EVERY 8 HOURS ORAL 04/02/18 22:00 05/02/18 21:59 04/10/18 13:17 Dextrose (Dextrose 50%) 25 ml Q30M PRN IV bs 60-69 04/06/18 15:30 05/06/18 15:29 Dextrose/ Electrolytes 1,000 ml @ 75 mls/hr [id number] IV 04/06/18 18:30 05/06/18 18:29 04/09/18 18:07 Dicyclomine HCl (Bentyl) 10 mg QID ORAL 04/02/18 18:00 05/02/18 17:59 04/10/18 12:24 Haloperidol Lactate (Haldol) 5 mg Q6H PRN IM Agitation 04/05/18 10:45 05/05/18 10:44 Lorazepam (Ativan 2mg/ml 1ml) 1 mg Q4H PRN IM For Anxiety 04/10/18 09:00 04/17/18 08:59 Losartan Potassium (Cozaar) 50 mg DAILY ORAL 04/06/18 09:00 05/03/18 08:59 04/10/18 08:35 Metformin HCl (Glucophage) 500 mg BID ORAL 04/03/18 09:00 05/03/18 08:59 04/10/18 08:35 Phosphorus (Phospha 250 Neutral) 250 mg THREE TIMES A DAY ORAL 04/10/18 09:00 05/10/18 08:59 04/10/18 12:24 Potassium Chloride (K-Dur) 10 meq DAILY ORAL 04/03/18 09:00 05/03/18 08:59 04/10/18 08:35 Sitagliptin Phosphate (Januvia) 50 mg ACBREAKFAST ORAL 04/03/18 06:30 05/03/18 06:29 04/10/18 06:21 Sorbitol (Sorbitol) 45 ml QHS ORAL 04/08/18 21:00 05/08/18 20:59 04/08/18 20:35 Trazodone HCl (Desyrel) 50 mg BEDTIME ORAL 04/02/18 21:00 05/02/18 20:59 04/09/18 21:01 Vitamin D (Vitamin D) 5,000 intlu DAILY ORAL 04/03/18 09:00 05/03/18 08:59 04/10/18 08:34 Allergies: Coded Allergies: No Known Allergies (Unverified , 08/10/13) ROS Limited/Unobtainable: No Constitutional: Reports: no symptoms HEENT: Reports: no symptoms Cardiovascular: Reports: no symptoms Respiratory: Reports: no symptoms Gastrointestinal/Abdominal: Reports: no symptoms Genitourinary: Reports: no symptoms Neurologic/Psychiatric: Reports: no symptoms Subjective 82 YO F admitted with generalized weakness. Cover for Int Med-Dr Berkowitz. S/P right hip total arthroplasty 04/06/18. S/P colonoscopy 04/06/18 Objective Last Vital Signs Date Time Temp Pulse Resp B/P (MAP) Pulse Ox O2 Delivery O2 Flow Rate FiO2 04/10/18 13:17 131/81 04/10/18 12:05 98.8 04/10/18 12:00 64 19 98 04/10/18 09:00 Room Air Room Air 04/06/18 20:10 3 04/02/18 18:13 98 Laboratory Tests Test 04/10/18 05:10 White Blood Count 9.9 K/UL (4.8-10.8) Red Blood Count 3.53 M/UL (4.20-5.40) L Hemoglobin 10.1 G/DL (12.0-16.0) L Hematocrit 29.7 % (37.0-47.0) L Mean Corpuscular Volume 84 FL (80-99) Mean Corpuscular Hemoglobin 28.6 PG (27.0-31.0) Mean Corpuscular Hemoglobin Concent 33.9 G/DL (32.0-36.0) Red Cell Distribution Width 15.1 % (11.6-14.8) H Platelet Count 295 K/UL (150-450) Mean Platelet Volume 6.9 FL (6.5-10.1) Neutrophils (%) (Auto) 76.8 % (45.0-75.0) H Lymphocytes (%) (Auto) 15.3 % (20.0-45.0) L Monocytes (%) (Auto) 6.8 % (1.0-10.0) Eosinophils (%) (Auto) 0.8 % (0.0-3.0) Basophils (%) (Auto) 0.3 % (0.0-2.0) Erythrocyte Sedimentation Rate 10 MM/HR (0-30) Sodium Level 139 MMOL/L (136-145) Potassium Level 4.2 MMOL/L (3.5-5.1) Chloride Level 109 MMOL/L (98-107) H Carbon Dioxide Level 22 MMOL/L (21-32) Anion Gap 8 mmol/L (5-15) Blood Urea Nitrogen 13 mg/dL (7-18) Creatinine 0.6 MG/DL (0.55-1.30) Estimat Glomerular Filtration Rate mL/min (>60) Glucose Level 102 MG/DL (74-106) Calcium Level 8.1 MG/DL (8.5-10.1) L Phosphorus Level 2.2 MG/DL (2.5-4.9) L Magnesium Level 1.4 MG/DL (1.8-2.4) L Total Bilirubin 0.9 MG/DL (0.2-1.0) Aspartate Amino Transf (AST/SGOT) 24 U/L (15-37) Alanine Aminotransferase (ALT/SGPT) 11 U/L (12-78) L Alkaline Phosphatase 88 U/L (46-116) C-Reactive Protein, Quantitative 11.7 mg/dL (0.00-0.90) H Total Protein 5.6 G/DL (6.4-8.2) L Albumin 1.8 G/DL (3.4-5.0) L Globulin 3.8 g/dL Albumin/Globulin Ratio 0.5 (1.0-2.7) L Intake and Output 04/09/18 04/10/18 19:00 07:00 Intake Total 713 ml Balance 713 ml Intake Oral 118 ml IV Total 595 ml # Voids 1 2 # Bowel Movements 1 Objective General Appearance: WD/WN, mild distress, agitated EENT: PERRL/EOMI, normal ENT inspection Neck: non-tender, normal alignment, supple, normal inspection Cardiovascular: normal peripheral pulses, normal rate, regular rhythm, no gallop/murmur, no JVD Respiratory/Chest: chest wall non-tender, lungs clear, normal breath sounds, no accessory muscle use, respiratory distress Abdomen: normal bowel sounds, non tender, soft, no organomegaly, no mass Extremities: normal range of motion 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 (8) Rectal bleed Assessment & Plan: S/P colonoscopy 04/06/18=ulcerated hemorrhoid. See GI note. (9) Severe anemia Assessment & Plan: Due to rectal bleed. S/P transfusion 2 units packed RBC and 1 unit PRBC 04/09/18. Status: progressing Assessment/Plan Discharge planning: post acute care. Aquilino Matthews MD Apr 10, 2018 15:00
[2018-04-10] MEDS: D5 1/2NS w/KCl 20mEq 1,000 ML IV SCH (15:23)
--- NOTE | 2018-04-10 15:43 | General Surgery Progress Note ---
General Surgery-Progress Note Subjective Additional Comments bleeding from ortho surgical site. transfused prbc Objective Last 24 Hour Vital Signs Date Time Temp Pulse Resp B/P (MAP) Pulse Ox O2 Delivery O2 Flow Rate FiO2 04/10/18 13:17 131/81 04/10/18 12:05 98.8 04/10/18 12:00 97.7 64 19 131/81 (98) 98 04/10/18 09:00 Room Air Room Air 04/10/18 09:00 55 127/60 04/10/18 08:35 127/60 04/10/18 08:00 98.8 55 19 127/60 (82) 96 04/10/18 06:00 100/52 04/10/18 04:00 98.2 67 20 100/52 (68) 94 04/10/18 00:00 97.4 69 19 129/71 (90) 99 04/09/18 21:00 Room Air Room Air 04/09/18 20:00 97.0 80 18 135/70 (91) 98 04/09/18 16:00 98.1 74 18 127/74 (91) 100 I&O Intake and Output 04/09/18 04/10/18 19:00 07:00 Intake Total 713 ml Balance 713 ml Intake Oral 118 ml IV Total 595 ml # Voids 1 2 # Bowel Movements 1 Dressing: saturated Wound: other Drains: other Cardiovascular: RSR Respiratory: clear Abdomen: soft, flat, non-tender, present bowel sounds Extremities: other Laboratory Tests Test 04/10/18 05:10 White Blood Count 9.9 K/UL (4.8-10.8) Red Blood Count 3.53 M/UL (4.20-5.40) L Hemoglobin 10.1 G/DL (12.0-16.0) L Hematocrit 29.7 % (37.0-47.0) L Mean Corpuscular Volume 84 FL (80-99) Mean Corpuscular Hemoglobin 28.6 PG (27.0-31.0) Mean Corpuscular Hemoglobin Concent 33.9 G/DL (32.0-36.0) Red Cell Distribution Width 15.1 % (11.6-14.8) H Platelet Count 295 K/UL (150-450) Mean Platelet Volume 6.9 FL (6.5-10.1) Neutrophils (%) (Auto) 76.8 % (45.0-75.0) H Lymphocytes (%) (Auto) 15.3 % (20.0-45.0) L Monocytes (%) (Auto) 6.8 % (1.0-10.0) Eosinophils (%) (Auto) 0.8 % (0.0-3.0) Basophils (%) (Auto) 0.3 % (0.0-2.0) Erythrocyte Sedimentation Rate 10 MM/HR (0-30) Sodium Level 139 MMOL/L (136-145) Potassium Level 4.2 MMOL/L (3.5-5.1) Chloride Level 109 MMOL/L (98-107) H Carbon Dioxide Level 22 MMOL/L (21-32) Anion Gap 8 mmol/L (5-15) Blood Urea Nitrogen 13 mg/dL (7-18) Creatinine 0.6 MG/DL (0.55-1.30) Estimat Glomerular Filtration Rate mL/min (>60) Glucose Level 102 MG/DL (74-106) Calcium Level 8.1 MG/DL (8.5-10.1) L Phosphorus Level 2.2 MG/DL (2.5-4.9) L Magnesium Level 1.4 MG/DL (1.8-2.4) L Total Bilirubin 0.9 MG/DL (0.2-1.0) Aspartate Amino Transf (AST/SGOT) 24 U/L (15-37) Alanine Aminotransferase (ALT/SGPT) 11 U/L (12-78) L Alkaline Phosphatase 88 U/L (46-116) C-Reactive Protein, Quantitative 11.7 mg/dL (0.00-0.90) H Total Protein 5.6 G/DL (6.4-8.2) L Albumin 1.8 G/DL (3.4-5.0) L Globulin 3.8 g/dL Albumin/Globulin Ratio 0.5 (1.0-2.7) L Plan Problems: (1) Sacral decubitus ulcer, stage III Assessment & Plan: Multiple pressure injuries to sacrum and R hip. Four individual pressure injuries in close proximity noted to sacrum,Total area measuring (L)2cm x (W)7 cm., each wound with 100% yellow slough with red margins. Non-blanchable erythema periwound. Small pressure injury noted to L buttocks (L)0.4cm x(W)0.5cm with 100% slough. Full thickness pressure injury to R hip at historical surgical incision (L) 1.1cm x(W)0.9cm ,with 90% yellow slough noted. Non-blanchable erythema noted periwound ,an area of (L)7cm x (W)6.6cm . Stable dry eschar medial R heel. Periwound without erythema or induration. Wounds present upon admission and will be cared for during hospital stay Tx.Plan: Reposition at least every 2hours or as tolerated. Air fluidized mattress. Apply Cavilon wipes to heels and off-load heels with pillow. Cleanse wounds Sacrum with Saline. Apply Therahoney to wounds .Cavilon to borders and cover with Optifoam Drsg. Cleanse R hip wound with Saline.Apply Therahoney.Apply Cavilon wipe to red area periwound and cover with Optifoam drsg Daily and prn. Will likely need excisional vs non excisional debridement of sloth down to healthy viable tissue. may consider during hospitalization once ortho and GI care completed. can be done as outpatient Nutritional support Okay to d/c from surgical standpoint with outpatient follow up (2) Failure to thrive Assessment & Plan: elderly female with dementia albumin 2 multiple decubitus ulcers nutritional consult increase protein and Caloric intake will need optimization to help heal wounds DAILY ESTIMATED NEEDS: Needs based on Wound, DM, wasting / 51kg 30-35 kcals/kg [id number] total kcals 1.25-1.5 g protein/kg 64-77 g total protein NUTRITION DIAGNOSIS: * Increased kcal/prot needs R/T wound healing as evidenced by pt w/ stage 3 sacral and R hip wounds, refer to WC eval. PO DIET RECOMMENDATIONS: [place]/ Regular diet w/ <50% po intake (texture per GENERAL II [employer]ARM[employer]) ADDITIONAL RECOMMENDATIONS: * Calibrated bedscale wt for accurate CBW * Wound healing: add MVI w/ min 1 tab QD, Vit C 500mg BID, [place] 1pkt BID * Add Glucerna 1 tetra harper TID * Lytes daily, replete as needed ( Mg 1.6) . Sher Younger Apr 10, 2018 15:43
[2018-04-10 16:00] VITALS: BP 127/81
--- NOTE | 2018-04-10 17:40 | General Progress Note ---
Assessment/Plan Assessment/Plan Assessment - constipation - on sorbitol - rectal bleeding due to ulcerated hemorrhoids - Anemia - agitation/OBS - dislocated hip - s/p arthroplasty conversion Recommendations - push po - Monitor H&H - transfuse PRN - Ortho f/u Subjective Allergies: Coded Allergies: No Known Allergies (Unverified , 08/10/13) Subjective s/p (R) hip hemiarthroplasty conversion calm NAD d/w RN Objective Last 24 Hour Vital Signs Date Time Temp Pulse Resp B/P (MAP) Pulse Ox O2 Delivery O2 Flow Rate FiO2 04/10/18 16:00 98.8 69 17 127/81 (96) 96 04/10/18 13:17 131/81 04/10/18 12:05 98.8 04/10/18 12:00 97.7 64 19 131/81 (98) 98 04/10/18 09:00 Room Air Room Air 04/10/18 09:00 55 127/60 04/10/18 08:35 127/60 04/10/18 08:00 98.8 55 19 127/60 (82) 96 04/10/18 06:00 100/52 04/10/18 04:00 98.2 67 20 100/52 (68) 94 04/10/18 00:00 97.4 69 19 129/71 (90) 99 04/09/18 21:00 Room Air Room Air 04/09/18 20:00 97.0 80 18 135/70 (91) 98 Intake and Output 04/09/18 04/10/18 19:00 07:00 Intake Total 713 ml 75 ml Balance 713 ml 75 ml Intake Oral 118 ml IV Total 595 ml 75 ml # Voids 1 2 # Bowel Movements 1 Laboratory Tests 04/10/18 05:10: White Blood Count 9.9, Red Blood Count 3.53L, Hemoglobin 10.1L, Hematocrit 29.7L , Mean Corpuscular Volume 84, Mean Corpuscular Hemoglobin 28.6, Mean Corpuscular Hemoglobin Concent 33.9, Red Cell Distribution Width 15.1H, Platelet Count 295, Mean Platelet Volume 6.9, Neutrophils (%) (Auto) 76.8H, Lymphocytes (%) (Auto) 15.3L, Monocytes (%) (Auto) 6.8, Eosinophils (%) (Auto) 0.8, Basophils (%) (Auto) 0.3, Erythrocyte Sedimentation Rate 10, Sodium Level 139, Potassium Level 4.2, Chloride Level 109H, Carbon Dioxide Level 22, Anion Gap 8, Blood Urea Nitrogen 13, Creatinine 0.6, Estimat Glomerular Filtration Rate , Glucose Level 102, Calcium Level 8.1L, Phosphorus Level 2.2L, Magnesium Level 1.4L, Total Bilirubin 0.9, Aspartate Amino Transf (AST/SGOT) 24, Alanine Aminotransferase (ALT/SGPT) 11L, Alkaline Phosphatase 88, C-Reactive Protein, Quantitative 11.7H, Total Protein 5.6L, Albumin 1.8L, Globulin 3.8, Albumin/ Globulin Ratio 0.5L Height (Feet): 5 Height (Inches): 5.00 Weight (Pounds): 136 Objective WDWN NCAT supple CTA RRR abd soft no edema Thalia Grant MD Apr 10, 2018 17:40
[2018-04-10 20:00] VITALS: BP 132/62
[2018-04-10] MEDS: TraZODone 50mg tab ORAL SCH (20:39)
[2018-04-10] MEDS: Atorvastatin 20mg tab ORAL SCH (20:40)
[2018-04-10] MEDS: Sorbitol Solution UD 30ml ORAL SCH ×2 (20:41→20:48)
[2018-04-11] VITALS: BP 103/72
[2018-04-11 04:00] VITALS: BP 117/63
[2018-04-11] MEDS: Norco 5mg/325mg tab ORAL PRN ×3 (04:51→20:16)
[2018-04-11] MEDS: D5 1/2NS w/KCl 20mEq 1,000 ML IV SCH ×2 (04:51→17:13)
[2018-04-11] MEDS: sitaGLIPtin 50mg tab ORAL SCH (06:32)
[2018-04-11 07:12] LABS: BASOPHILS % (AUTO) 0.3 % (0.0-2.0); HEMATOCRIT 26.2 % (37.0-47.0); HEMOGLOBIN 8.4 G/DL (12.0-16.0); LYMPHOCYTES % (AUTO) 9.1 % (20.0-45.0); MEAN CORPUSCULAR VOLUME 84 FL (80-99); MONOCYTES % (AUTO) 8.5 % (1.0-10.0); NEUTROPHILS % (AUTO) 81.1 % (45.0-75.0); PLATELET COUNT 305 K/UL (150-450); RED BLOOD COUNT 3.11 M/UL (4.20-5.40); RED CELL DISTRIBUTION WIDTH 15.7 % (11.6-14.8); WHITE BLOOD COUNT 7.3 K/UL (4.8-10.8)
[2018-04-11 07:53] LABS: ANION GAP 5 mmol/L (5-15); BLOOD UREA NITROGEN 8 mg/dL (7-18); CALCIUM 7.7 MG/DL (8.5-10.1); CARBON DIOXIDE 24 MMOL/L (21-32); CHLORIDE 110 MMOL/L (98-107); CREATININE 0.6 MG/DL (0.55-1.30); FERRITIN 134 NG/ML (8-388); POTASSIUM 4.2 MMOL/L (3.5-5.1); SODIUM 139 MMOL/L (136-145)
[2018-04-11 08:00] VITALS: BP 141/67
--- NOTE | 2018-04-11 08:04 | Pulmonology Progress Note ---
Assessment/Plan Assessment/Plan ASSESSMENT recurrent dislocation right hip hemiarthroplasty s/p 04/06 conversion to total hip arthroplasty ulcerated internal hemorrhoids s/p flexible sigmoidoscopy anemia of chronic disease and iron deficiency , s/p blood transfusion severe protein calorie malnutrition electrolytes imbalance sacral decub stage III, present on admission diabetes mellitus type 2 hypertension CAD with hx of NSTEMI aortic stenosis pulmonary hypertension Alzheimer dementia sick sinus syndrome , status post pacemaker implantation e/lyte imbalance ( low Mg and P) PLAN OF CARE Med Surg floor s/p R JEFFERY hip precautions PT/OT pain management bowel regimen s/p flexible sigmoidoscopy , no evidence of active bleeding colonoscopy later with consent of family fup with Gi recs anemia workup noted , s/p 2 u PRBC check ferritin level -WNL, low Fe and sat, HH trending down, give Venofer x 3 doses, check stool OB IV fluids monitor renal parameters ,electrolytes correct electrolytes prn, Mg and P stable after 04/09 replacement BP management with BB and ARB continue statin BS management with metformin and Januvia nutritional recommendations implemented in plan of care psychiatrist follow on trazodone according to psychiatrist, patient lacks capacity to make decisions supportive care wound care as per surgeon recommendations case discussed and evaluated by supervising physician Subjective Allergies: Coded Allergies: No Known Allergies (Unverified , 08/10/13) Subjective no fever , leukocytosis resolved elevated CRP, ESR WNL no signs of distress HH stable P and Mg stable after 04/10 replacement HH with trend down Objective Last 24 Hour Vital Signs Date Time Temp Pulse Resp B/P (MAP) Pulse Ox O2 Delivery O2 Flow Rate FiO2 04/11/18 05:31 112/52 04/11/18 04:00 98.7 64 20 117/63 (81) 97 04/11/18 00:00 97.9 66 19 103/72 (82) 98 04/10/18 22:00 110/57 04/10/18 21:00 Nasal Cannula 2.0 Nasal Cannula 2.0 04/10/18 20:46 70 18 Room Air 98 04/10/18 20:40 71 132/62 04/10/18 20:00 98.0 71 20 132/62 (85) 98 04/10/18 16:00 98.8 69 17 127/81 (96) 96 04/10/18 13:17 131/81 11/24/18 12:05 98.8 04/10/18 12:00 97.7 64 19 131/81 (98) 98 04/10/18 09:00 Room Air Room Air 04/10/18 09:00 55 127/60 04/10/18 08:35 127/60 Intake and Output 04/10/18 04/11/18 19:00 07:00 Intake Total 1230 ml 905 ml Balance 1230 ml 905 ml Intake Oral 180 ml 80 ml IV Total 1050 ml 825 ml # Voids 3 2 Objective General Appearance: no acute distress, awake, confused elderly Swedish speaking female in NAD HEENT: normocephalic, atraumatic, anicteric Respiratory/Chest: lungs clear - with moderate air exchange Cardiovascular: normal rate Abdomen: soft, non tender, non distended Extremities: no edema Skin: R hip incision clean Neurologic/Psychiatric: abnormal gait - bedridden , awake, but very confused Musculoskeletal: atrophy - BLE Laboratory Tests 04/11/18 06:25: White Blood Count 7.3, Red Blood Count 3.11L, Hemoglobin 8.4L, Hematocrit 26.2L , Mean Corpuscular Volume 84, Mean Corpuscular Hemoglobin 27.1, Mean Corpuscular Hemoglobin Concent 32.2, Red Cell Distribution Width 15.7H, Platelet Count 305, Mean Platelet Volume 7.2, Neutrophils (%) (Auto) 81.1H, Lymphocytes (%) (Auto) 9.1L, Monocytes (%) (Auto) 8.5, Eosinophils (%) (Auto) 1.0, Basophils (%) (Auto) 0.3, Sodium Level 139, Potassium Level 4.2, Chloride Level 110H, Carbon Dioxide Level 24, Anion Gap 5, Blood Urea Nitrogen 8, Creatinine 0.6, Estimat Glomerular Filtration Rate , Glucose Level 113H, Calcium Level 7.7L, Phosphorus Level 3.0, Magnesium Level 1.8, Ferritin 134 Current Medications Medications (Trade) Dose Ordered Sig/Yi Route PRN Reason Start Time Stop Time Status Last Admin Dose Admin Acetaminophen (Tylenol) 650 mg Q6H PRN ORAL Mild Pain/Temp > 100.5 04/02/18 17:15 05/02/18 17:14 04/07/18 12:39 Acetaminophen/ Hydrocodone Bitart ([place] 5/325) 1 tab Q6H PRN ORAL PAIN 4-10 04/10/18 11:30 04/17/18 11:29 04/11/18 04:51 Albuterol/ Ipratropium (Albuterol/ Ipratropium) 3 ml Q4H PRN HHN Shortness of Breath 04/10/18 09:00 04/15/18 08:59 Atenolol (Tenormin) 50 mg Q12HR ORAL 04/02/18 21:00 05/02/18 20:59 04/10/18 20:40 Atorvastatin Calcium (Lipitor) 20 mg BEDTIME ORAL 04/03/18 21:00 05/03/18 20:59 04/10/18 20:40 Clonidine HCl (Catapres Tab) 0.1 mg EVERY 8 HOURS ORAL 04/02/18 22:00 05/02/18 21:59 04/10/18 13:17 Dextrose (Dextrose 50%) 25 ml Q30M PRN IV bs 60-69 04/06/18 15:30 05/06/18 15:29 Dextrose/ Electrolytes 1,000 ml @ 75 mls/hr [id number] IV 04/06/18 18:30 05/06/18 18:29 04/11/18 04:51 Dicyclomine HCl (Bentyl) 10 mg QID ORAL 04/02/18 18:00 05/02/18 17:59 04/10/18 20:39 Haloperidol Lactate (Haldol) 5 mg Q6H PRN IM Agitation 04/05/18 10:45 05/05/18 10:44 Lorazepam (Ativan 2mg/ml 1ml) 1 mg Q4H PRN IM For Anxiety 04/10/18 09:00 04/17/18 08:59 Losartan Potassium (Cozaar) 50 mg DAILY ORAL 04/06/18 09:00 05/03/18 08:59 04/10/18 08:35 Metformin HCl (Glucophage) 500 mg BID ORAL 04/03/18 09:00 05/03/18 08:59 04/10/18 17:07 Phosphorus (Phospha 250 Neutral) 250 mg THREE TIMES A DAY ORAL 04/10/18 09:00 05/10/18 08:59 04/10/18 17:07 Potassium Chloride (K-Dur) 10 meq DAILY ORAL 04/03/18 09:00 05/03/18 08:59 04/10/18 08:35 Sitagliptin Phosphate (Januvia) 50 mg ACBREAKFAST ORAL 04/03/18 06:30 05/03/18 06:29 04/11/18 06:32 Sorbitol (Sorbitol) 45 ml QHS ORAL 04/08/18 21:00 05/08/18 20:59 04/08/18 20:35 Trazodone HCl (Desyrel) 50 mg BEDTIME ORAL 04/02/18 21:00 05/02/18 20:59 04/10/18 20:39 Vitamin D (Vitamin D) 5,000 intlu DAILY ORAL 04/03/18 09:00 05/03/18 08:59 04/10/18 08:34 Stormy Morel ROTOR BALANCER Apr 11, 2018 08:04
[2018-04-11] MEDS: Vitamin D 1000 IU Tab ORAL SCH (08:30)
[2018-04-11] MEDS: metFORMIN 500mg tab ORAL SCH ×2 (08:30→17:13)
[2018-04-11] MEDS: Dicyclomine 10mg Cap ORAL SCH ×4 (08:30→20:14)
[2018-04-11] MEDS: Phospha 250 Neutral tab ORAL SCH ×3 (08:31→17:13)
[2018-04-11] MEDS: Losartan 50mg tab ORAL SCH (08:31)
[2018-04-11 11:51] VITALS: BP 129/69
--- NOTE | 2018-04-11 13:38 | Internal Med Progress Note ---
Subjective Date of Service: Apr 11, 2018 Physician Name Matthews,Aquilino Attending Physician Carlos Alberto Berkowitz MD Current Medications Medications (Trade) Dose Ordered Sig/Yi Route PRN Reason Start Time Stop Time Status Last Admin Dose Admin Acetaminophen (Tylenol) 650 mg Q6H PRN ORAL Mild Pain/Temp > 100.5 04/02/18 17:15 05/02/18 17:14 04/11/18 08:31 Acetaminophen/ Hydrocodone Bitart ([place] 5/325) 1 tab Q6H PRN ORAL PAIN 4-10 04/10/18 11:30 04/17/18 11:29 04/11/18 11:05 Albuterol/ Ipratropium (Albuterol/ Ipratropium) 3 ml Q4H PRN HHN Shortness of Breath 04/10/18 09:00 04/15/18 08:59 Atenolol (Tenormin) 50 mg Q12HR ORAL 04/02/18 21:00 05/02/18 20:59 04/11/18 08:30 Atorvastatin Calcium (Lipitor) 20 mg BEDTIME ORAL 04/03/18 21:00 05/03/18 20:59 04/10/18 20:40 Clonidine HCl (Catapres Tab) 0.1 mg EVERY 8 HOURS ORAL 04/02/18 22:00 05/02/18 21:59 04/11/18 13:11 Dextrose (Dextrose 50%) 25 ml Q30M PRN IV bs 60-69 04/06/18 15:30 05/06/18 15:29 Dextrose/ Electrolytes 1,000 ml @ 75 mls/hr [id number] IV 04/06/18 18:30 05/06/18 18:29 04/11/18 04:51 Dicyclomine HCl (Bentyl) 10 mg QID ORAL 04/02/18 18:00 05/02/18 17:59 04/11/18 13:11 Haloperidol Lactate (Haldol) 5 mg Q6H PRN IM Agitation 04/05/18 10:45 05/05/18 10:44 Iron Sucrose 100 mg/Sodium Chloride 60 ml @ 240 mls/hr BEDTIME IV 04/11/18 21:00 04/13/18 21:14 Lorazepam (Ativan 2mg/ml 1ml) 1 mg Q4H PRN IM For Anxiety 04/10/18 09:00 04/17/18 08:59 Losartan Potassium (Cozaar) 50 mg DAILY ORAL 04/06/18 09:00 05/03/18 08:59 04/11/18 08:31 Metformin HCl (Glucophage) 500 mg BID ORAL 04/03/18 09:00 05/03/18 08:59 04/11/18 08:30 Phosphorus (Phospha 250 Neutral) 250 mg THREE TIMES A DAY ORAL 04/10/18 09:00 05/10/18 08:59 04/11/18 13:11 Potassium Chloride (K-Dur) 10 meq DAILY ORAL 04/03/18 09:00 05/03/18 08:59 04/11/18 08:31 Sitagliptin Phosphate (Januvia) 50 mg ACBREAKFAST ORAL 04/03/18 06:30 05/03/18 06:29 04/11/18 06:32 Sorbitol (Sorbitol) 45 ml QHS ORAL 04/08/18 21:00 05/08/18 20:59 04/08/18 20:35 Trazodone HCl (Desyrel) 50 mg BEDTIME ORAL 04/02/18 21:00 05/02/18 20:59 04/10/18 20:39 Vitamin D (Vitamin D) 5,000 intlu DAILY ORAL 04/03/18 09:00 05/03/18 08:59 04/11/18 08:30 Allergies: Coded Allergies: No Known Allergies (Unverified , 08/10/13) ROS Limited/Unobtainable: No Constitutional: Reports: no symptoms HEENT: Reports: no symptoms Cardiovascular: Reports: no symptoms Respiratory: Reports: no symptoms Gastrointestinal/Abdominal: Reports: no symptoms Genitourinary: Reports: no symptoms Neurologic/Psychiatric: Reports: no symptoms Subjective 82 YO F admitted with generalized weakness. Cover for Int Aakash-Dr Berkowitz. S/P right hip total arthroplasty 04/06/18. S/P colonoscopy 04/06/18 Objective Last Vital Signs Date Time Temp Pulse Resp B/P (MAP) Pulse Ox O2 Delivery O2 Flow Rate FiO2 04/11/18 13:11 129/69 04/11/18 11:51 98.4 68 18 97 04/11/18 09:00 Room Air Room Air 04/10/18 21:00 2.0 2.0 04/10/18 20:46 98 Laboratory Tests Test 04/11/18 06:25 White Blood Count 7.3 K/UL (4.8-10.8) Red Blood Count 3.11 M/UL (4.20-5.40) L Hemoglobin 8.4 G/DL (12.0-16.0) L Hematocrit 26.2 % (37.0-47.0) L Mean Corpuscular Volume 84 FL (80-99) Mean Corpuscular Hemoglobin 27.1 PG (27.0-31.0) Mean Corpuscular Hemoglobin Concent 32.2 G/DL (32.0-36.0) Red Cell Distribution Width 15.7 % (11.6-14.8) H Platelet Count 305 K/UL (150-450) Mean Platelet Volume 7.2 FL (6.5-10.1) Neutrophils (%) (Auto) 81.1 % (45.0-75.0) H Lymphocytes (%) (Auto) 9.1 % (20.0-45.0) L Monocytes (%) (Auto) 8.5 % (1.0-10.0) Eosinophils (%) (Auto) 1.0 % (0.0-3.0) Basophils (%) (Auto) 0.3 % (0.0-2.0) Sodium Level 139 MMOL/L (136-145) Potassium Level 4.2 MMOL/L (3.5-5.1) Chloride Level 110 MMOL/L (98-107) H Carbon Dioxide Level 24 MMOL/L (21-32) Anion Gap 5 mmol/L (5-15) Blood Urea Nitrogen 8 mg/dL (7-18) Creatinine 0.6 MG/DL (0.55-1.30) Estimat Glomerular Filtration Rate mL/min (>60) Glucose Level 113 MG/DL (74-106) H Calcium Level 7.7 MG/DL (8.5-10.1) L Phosphorus Level 3.0 MG/DL (2.5-4.9) Magnesium Level 1.8 MG/DL (1.8-2.4) Ferritin 134 NG/ML (8-388) Carcinoembryonic Antigen Pending Intake and Output 04/10/18 04/11/18 19:00 07:00 Intake Total 1230 ml 905 ml Balance 1230 ml 905 ml Intake Oral 180 ml 80 ml IV Total 1050 ml 825 ml # Voids 3 2 Objective General Appearance: WD/WN, mild distress, agitated EENT: PERRL/EOMI, normal ENT inspection Neck: non-tender, normal alignment, supple, normal inspection Cardiovascular: normal peripheral pulses, normal rate, regular rhythm, no gallop/murmur, no JVD Respiratory/Chest: chest wall non-tender, lungs clear, normal breath sounds, no accessory muscle use, respiratory distress Abdomen: normal bowel sounds, non tender, soft, no organomegaly, no mass Extremities: normal range of motion Neurologic: penology professor II-XII grossly normal Skin: normal pigmentation, warm/dry Assessment/Plan Problem List: (1) Diabetes mellitus, type II Assessment & Plan: Continue metformin and januvia (2) HTN (hypertension) Assessment & Plan: continue atenolol and cozaar (3) Sick sinus syndrome Assessment & Plan: S/P pacemaker (4) Aortic stenosis (5) Pulmonary hypertension (6) Alzheimer's dementia (7) Dislocation, hip closed Assessment & Plan: S/P right total hip arthroplasty 04/06/18-see ortho note. (8) Rectal bleed Assessment & Plan: S/P colonoscopy 04/06/18=ulcerated hemorrhoid. See GI note. (9) Severe anemia Assessment & Plan: Due to rectal bleed. S/P transfusion 2 units packed RBC and 1 unit PRBC 04/09/18. Status: progressing Assessment/Plan Discharge planning: post acute care. Aquilino Matthews MD Apr 11, 2018 13:38
--- NOTE | 2018-04-11 15:10 | General Progress Note ---
Assessment/Plan Assessment/Plan Assessment - constipation - on sorbitol - rectal bleeding due to ulcerated hemorrhoids - Anemia - agitation/OBS - dislocated hip - s/p arthroplasty conversion Recommendations - push po - Monitor H&H - transfuse PRN - Ortho f/u Subjective Allergies: Coded Allergies: No Known Allergies (Unverified , 08/10/13) Subjective no events calm NAD d/w RN Objective Last 24 Hour Vital Signs Date Time Temp Pulse Resp B/P (MAP) Pulse Ox O2 Delivery O2 Flow Rate FiO2 04/11/18 13:11 129/69 04/11/18 11:51 98.4 68 18 129/69 (89) 97 04/11/18 09:00 Room Air Room Air 04/11/18 08:31 141/67 04/11/18 08:30 75 141/67 04/11/18 08:00 98.4 75 18 141/67 (91) 97 04/11/18 05:31 112/52 04/11/18 04:00 98.7 64 20 117/63 (81) 97 04/11/18 00:00 97.9 66 19 103/72 (82) 98 04/10/18 22:00 110/57 04/10/18 21:00 Nasal Cannula 2.0 Nasal Cannula 2.0 04/10/18 20:46 70 18 Room Air 98 04/10/18 20:40 71 132/62 04/10/18 20:00 98.0 71 20 132/62 (85) 98 04/10/18 16:00 98.8 69 17 127/81 (96) 96 Intake and Output 04/10/18 04/11/18 19:00 07:00 Intake Total 1230 ml 905 ml Balance 1230 ml 905 ml Intake Oral 180 ml 80 ml IV Total 1050 ml 825 ml # Voids 3 2 Laboratory Tests 04/11/18 06:25: White Blood Count 7.3, Red Blood Count 3.11L, Hemoglobin 8.4L, Hematocrit 26.2L , Mean Corpuscular Volume 84, Mean Corpuscular Hemoglobin 27.1, Mean Corpuscular Hemoglobin Concent 32.2, Red Cell Distribution Width 15.7H, Platelet Count 305, Mean Platelet Volume 7.2, Neutrophils (%) (Auto) 81.1H, Lymphocytes (%) (Auto) 9.1L, Monocytes (%) (Auto) 8.5, Eosinophils (%) (Auto) 1.0, Basophils (%) (Auto) 0.3, Sodium Level 139, Potassium Level 4.2, Chloride Level 110H, Carbon Dioxide Level 24, Anion Gap 5, Blood Urea Nitrogen 8, Creatinine 0.6, Estimat Glomerular Filtration Rate , Glucose Level 113H, Calcium Level 7.7L, Phosphorus Level 3.0, Magnesium Level 1.8, Ferritin 134, Carcinoembryonic Antigen [Pending] Height (Feet): 5 Height (Inches): 5.00 Weight (Pounds): 136 Objective WDWN NCAT supple CTA RRR abd soft no edema Thalia Grant MD Apr 11, 2018 15:10
[2018-04-11 16:00] VITALS: BP 108/57
--- NOTE | 2018-04-11 17:48 | General Surgery Progress Note ---
General Surgery-Progress Note Subjective Additional Comments anemia. labs noted. no n/v/f/c. Objective Last 24 Hour Vital Signs Date Time Temp Pulse Resp B/P (MAP) Pulse Ox O2 Delivery O2 Flow Rate FiO2 04/11/18 16:00 98.8 68 19 108/57 (74) 100 04/11/18 13:11 129/69 04/11/18 11:51 98.4 68 18 129/69 (89) 97 04/11/18 09:00 Room Air Room Air 04/11/18 08:31 141/67 04/11/18 08:30 75 141/67 04/11/18 08:00 98.4 75 18 141/67 (91) 97 04/11/18 05:31 112/52 04/11/18 04:00 98.7 64 20 117/63 (81) 97 04/11/18 00:00 97.9 66 19 103/72 (82) 98 04/10/18 22:00 110/57 04/10/18 21:00 Nasal Cannula 2.0 Nasal Cannula 2.0 04/10/18 20:46 70 18 Room Air 98 04/10/18 20:40 71 132/62 04/10/18 20:00 98.0 71 20 132/62 (85) 98 I&O Intake and Output 04/10/18 04/11/18 19:00 07:00 Intake Total 1230 ml 905 ml Balance 1230 ml 905 ml Intake Oral 180 ml 80 ml IV Total 1050 ml 825 ml # Voids 3 2 Dressing: saturated Wound: other Drains: other Cardiovascular: RSR Respiratory: decreased breath sounds Abdomen: soft, non-tender, present bowel sounds Extremities: other Laboratory Tests Test 04/11/18 06:25 White Blood Count 7.3 K/UL (4.8-10.8) Red Blood Count 3.11 M/UL (4.20-5.40) L Hemoglobin 8.4 G/DL (12.0-16.0) L Hematocrit 26.2 % (37.0-47.0) L Mean Corpuscular Volume 84 FL (80-99) Mean Corpuscular Hemoglobin 27.1 PG (27.0-31.0) Mean Corpuscular Hemoglobin Concent 32.2 G/DL (32.0-36.0) Red Cell Distribution Width 15.7 % (11.6-14.8) H Platelet Count 305 K/UL (150-450) Mean Platelet Volume 7.2 FL (6.5-10.1) Neutrophils (%) (Auto) 81.1 % (45.0-75.0) H Lymphocytes (%) (Auto) 9.1 % (20.0-45.0) L Monocytes (%) (Auto) 8.5 % (1.0-10.0) Eosinophils (%) (Auto) 1.0 % (0.0-3.0) Basophils (%) (Auto) 0.3 % (0.0-2.0) Sodium Level 139 MMOL/L (136-145) Potassium Level 4.2 MMOL/L (3.5-5.1) Chloride Level 110 MMOL/L (98-107) H Carbon Dioxide Level 24 MMOL/L (21-32) Anion Gap 5 mmol/L (5-15) Blood Urea Nitrogen 8 mg/dL (7-18) Creatinine 0.6 MG/DL (0.55-1.30) Estimat Glomerular Filtration Rate mL/min (>60) Glucose Level 113 MG/DL (74-106) H Calcium Level 7.7 MG/DL (8.5-10.1) L Phosphorus Level 3.0 MG/DL (2.5-4.9) Magnesium Level 1.8 MG/DL (1.8-2.4) Ferritin 134 NG/ML (8-388) Carcinoembryonic Antigen Pending Plan Problems: (1) Sacral decubitus ulcer, stage III Assessment & Plan: Multiple pressure injuries to sacrum and R hip. Four individual pressure injuries in close proximity noted to sacrum,Total area measuring (L)2cm x (W)7 cm., each wound with 100% yellow slough with red margins. Non-blanchable erythema periwound. Small pressure injury noted to L buttocks (L)0.4cm x(W)0.5cm with 100% slough. Full thickness pressure injury to R hip at historical surgical incision (L) 1.1cm x(W)0.9cm ,with 90% yellow slough noted. Non-blanchable erythema noted periwound ,an area of (L)7cm x (W)6.6cm . Stable dry eschar medial R heel. Periwound without erythema or induration. Wounds present upon admission and will be cared for during hospital stay Tx.Plan: Reposition at least every 2hours or as tolerated. Air fluidized mattress. Apply Cavilon wipes to heels and off-load heels with pillow. Cleanse wounds Sacrum with Saline. Apply Therahoney to wounds .Cavilon to borders and cover with Optifoam Drsg. Cleanse R hip wound with Saline.Apply Therahoney.Apply Cavilon wipe to red area periwound and cover with Optifoam drsg Daily and prn. Will likely need excisional vs non excisional debridement of sloth down to healthy viable tissue. may consider during hospitalization once ortho and GI care completed. can be done as outpatient Nutritional support Ortho f/u of wound (2) Failure to thrive Assessment & Plan: elderly female with dementia albumin 2 multiple decubitus ulcers nutritional consult increase protein and Caloric intake will need optimization to help heal wounds DAILY ESTIMATED NEEDS: Needs based on Wound, DM, wasting / 51kg 30-35 kcals/kg 5842-6280 total kcals 1.25-1.5 g protein/kg 64-77 g total protein NUTRITION DIAGNOSIS: * Increased kcal/prot needs R/T wound healing as evidenced by pt w/ stage 3 sacral and R hip wounds, refer to WC eval. PO DIET RECOMMENDATIONS: [place]/ Regular diet w/ <50% po intake (texture per CLERK CASHIER) ADDITIONAL RECOMMENDATIONS: * Calibrated bedscale wt for accurate CBW * Wound healing: add MVI w/ min 1 tab QD, Vit C 500mg BID, [place] 1pkt BID * Add Glucerna 1 tetra harper TID * Lytes daily, replete as needed ( Mg 1.6) . Sher Younger Apr 11, 2018 17:48
[2018-04-11 20:00] VITALS: BP 132/68
[2018-04-11] MEDS: TraZODone 50mg tab ORAL SCH (20:14)
[2018-04-11] MEDS: Sorbitol Solution UD 30ml ORAL SCH (20:15)
[2018-04-11] MEDS: Atorvastatin 20mg tab ORAL SCH (20:15)
[2018-04-11] MEDS: Iron Sucrose 100 MG in NS 55 ML IV SCH (20:23)
[2018-04-11] MEDS: LORazepam Inj 2mg/ml 1ml IM PRN (23:54)
[2018-04-12] VITALS: BP 138/69
[2018-04-12 04:00] VITALS: BP 138/76
[2018-04-12] MEDS: sitaGLIPtin 50mg tab ORAL SCH (05:40)
[2018-04-12 07:17] LABS: BASOPHILS % (AUTO) 0.2 % (0.0-2.0); EOSINOPHILS % (AUTO) 0.5 % (0.0-3.0); HEMOGLOBIN 8.6 G/DL (12.0-16.0); LYMPHOCYTES % (AUTO) 12.5 % (20.0-45.0); MEAN CORPUSCULAR VOLUME 85 FL (80-99); MONOCYTES % (AUTO) 7.5 % (1.0-10.0); NEUTROPHILS % (AUTO) 79.3 % (45.0-75.0); PLATELET COUNT 301 K/UL (150-450); RED BLOOD COUNT 3.29 M/UL (4.20-5.40); RED CELL DISTRIBUTION WIDTH 15.8 % (11.6-14.8)
[2018-04-12 07:37] LABS: ANION GAP 7 mmol/L (5-15); BLOOD UREA NITROGEN 11 mg/dL (7-18); CALCIUM 7.8 MG/DL (8.5-10.1); CARBON DIOXIDE 25 MMOL/L (21-32); CHLORIDE 107 MMOL/L (98-107); CREATININE 0.7 MG/DL (0.55-1.30); POTASSIUM 4.2 MMOL/L (3.5-5.1); SODIUM 139 MMOL/L (136-145)
[2018-04-12 08:00] VITALS: BP 145/93
[2018-04-12] MEDS: D5 1/2NS w/KCl 20mEq 1,000 ML IV SCH ×2 (09:31→21:10)
[2018-04-12] MEDS: Losartan 50mg tab ORAL SCH (09:31)
[2018-04-12] MEDS: Vitamin D 1000 IU Tab ORAL SCH (09:31)
[2018-04-12] MEDS: metFORMIN 500mg tab ORAL SCH ×2 (09:32→18:00)
[2018-04-12] MEDS: Phospha 250 Neutral tab ORAL SCH ×3 (09:32→18:00)
[2018-04-12] MEDS: Dicyclomine 10mg Cap ORAL SCH ×5 (09:32→21:20)
--- NOTE | 2018-04-12 10:59 | General Surgery Progress Note ---
General Surgery-Progress Note Subjective Additional Comments H/H stable. alert. awake. seems comfortable Objective Last 24 Hour Vital Signs Date Time Temp Pulse Resp B/P (MAP) Pulse Ox O2 Delivery O2 Flow Rate FiO2 04/12/18 09:32 84 145/93 04/12/18 09:31 145/93 04/12/18 09:00 Room Air Room Air 04/12/18 08:01 75 18 Room Air 98 04/12/18 08:01 94 Room Air 21 04/12/18 08:00 97.7 84 21 145/93 (110) 100 04/12/18 04:00 97.7 76 18 138/76 (96) 98 04/12/18 00:00 97.9 77 19 138/69 (92) 98 04/11/18 21:00 Room Air Room Air 04/11/18 20:15 73 132/68 04/11/18 20:00 98.1 73 19 132/68 (89) 98 04/11/18 19:52 93 Room Air 21 04/11/18 16:00 98.8 68 19 108/57 (74) 100 04/11/18 13:11 129/69 04/11/18 11:51 98.4 68 18 129/69 (89) 97 I&O Intake and Output 04/11/18 04/12/18 19:00 07:00 Intake Total 1600 ml 810 ml Balance 1600 ml 810 ml IV Total 900 ml 810 ml Other 700 ml # Voids 4 2 # Bowel Movements 1 Dressing: saturated Wound: other Drains: other Cardiovascular: RSR Respiratory: clear Abdomen: soft, flat, non-tender, present bowel sounds Extremities: other Laboratory Tests Test 04/12/18 06:00 White Blood Count 8.0 K/UL (4.8-10.8) Red Blood Count 3.29 M/UL (4.20-5.40) L Hemoglobin 8.6 G/DL (12.0-16.0) L Hematocrit 28.0 % (37.0-47.0) L Mean Corpuscular Volume 85 FL (80-99) Mean Corpuscular Hemoglobin 26.2 PG (27.0-31.0) L Mean Corpuscular Hemoglobin Concent 30.8 G/DL (32.0-36.0) L Red Cell Distribution Width 15.8 % (11.6-14.8) H Platelet Count 301 K/UL (150-450) Mean Platelet Volume 7.1 FL (6.5-10.1) Neutrophils (%) (Auto) 79.3 % (45.0-75.0) H Lymphocytes (%) (Auto) 12.5 % (20.0-45.0) L Monocytes (%) (Auto) 7.5 % (1.0-10.0) Eosinophils (%) (Auto) 0.5 % (0.0-3.0) Basophils (%) (Auto) 0.2 % (0.0-2.0) Sodium Level 139 MMOL/L (136-145) Potassium Level 4.2 MMOL/L (3.5-5.1) Chloride Level 107 MMOL/L (98-107) Carbon Dioxide Level 25 MMOL/L (21-32) Anion Gap 7 mmol/L (5-15) Blood Urea Nitrogen 11 mg/dL (7-18) Creatinine 0.7 MG/DL (0.55-1.30) Estimat Glomerular Filtration Rate mL/min (>60) Glucose Level 110 MG/DL (74-106) H Calcium Level 7.8 MG/DL (8.5-10.1) L Plan Problems: (1) Sacral decubitus ulcer, stage III Assessment & Plan: Multiple pressure injuries to sacrum and R hip. Four individual pressure injuries in close proximity noted to sacrum,Total area measuring (L)2cm x (W)7 cm., each wound with 100% yellow slough with red margins. Non-blanchable erythema periwound. Small pressure injury noted to L buttocks (L)0.4cm x(W)0.5cm with 100% slough. Full thickness pressure injury to R hip at historical surgical incision (L) 1.1cm x(W)0.9cm ,with 90% yellow slough noted. Non-blanchable erythema noted periwound ,an area of (L)7cm x (W)6.6cm . Stable dry eschar medial R heel. Periwound without erythema or induration. Wounds present upon admission and will be cared for during hospital stay Tx.Plan: Reposition at least every 2hours or as tolerated. Air fluidized mattress. Apply Cavilon wipes to heels and off-load heels with pillow. Cleanse wounds Sacrum with Saline. Apply Therahoney to wounds .Cavilon to borders and cover with Optifoam Drsg. Cleanse R hip wound with Saline.Apply Therahoney.Apply Cavilon wipe to red area periwound and cover with Optifoam drsg Daily and prn. Will likely need excisional vs non excisional debridement of sloth down to healthy viable tissue. may consider during hospitalization once ortho and GI care completed. Plan for outpatient care. Nutritional support Ortho f/u of wound okay to d/c from surgical standpoint (2) Failure to thrive Assessment & Plan: elderly female with dementia albumin 2 multiple decubitus ulcers nutritional consult increase protein and Caloric intake will need optimization to help heal wounds DAILY ESTIMATED NEEDS: Needs based on Wound, DM, wasting / 51kg 30-35 kcals/kg 2029-4896 total kcals 1.25-1.5 g protein/kg 64-77 g total protein NUTRITION DIAGNOSIS: * Increased kcal/prot needs R/T wound healing as evidenced by pt w/ stage 3 sacral and R hip wounds, refer to WC eval. PO DIET RECOMMENDATIONS: [place]/ Regular diet w/ <50% po intake (texture per PLASMA PROCESSOR) ADDITIONAL RECOMMENDATIONS: * Calibrated bedscale wt for accurate CBW * Wound healing: add MVI w/ min 1 tab QD, Vit C 500mg BID, [place] 1pkt BID * Add Glucerna 1 tetra harper TID * Lytes daily, replete as needed ( Mg 1.6) . Sher Younger Apr 12, 2018 10:59
[2018-04-12 12:00] VITALS: BP 117/56
--- NOTE | 2018-04-12 12:51 | Pulmonology Progress Note ---
Assessment/Plan Problems: (1) Hip dislocation, right (2) Sacral decubitus ulcer, stage III (3) Protein-calorie malnutrition, severe (4) Psychosis (5) CAD (coronary artery disease) (6) Pulmonary hypertension (7) Aortic stenosis (8) Pacemaker (9) Diabetes mellitus, type II (10) HTN (hypertension) (11) Alzheimer's dementia Assessment/Plan no new complains check h/h and Pt, ptt in symptomatic treatment f/u ortho recommendations wound care consult nutrition evaluation social service consult check electrolytes dvt prophylaxis Subjective ROS Limited/Unobtainable: No Allergies: Coded Allergies: No Known Allergies (Unverified , 08/10/13) Objective Last 24 Hour Vital Signs Date Time Temp Pulse Resp B/P (MAP) Pulse Ox O2 Delivery O2 Flow Rate FiO2 04/12/18 09:32 84 145/93 04/12/18 09:31 145/93 04/12/18 09:00 Room Air Room Air 04/12/18 08:01 75 18 Room Air 98 04/12/18 08:01 94 Room Air 21 04/12/18 08:00 97.7 84 21 145/93 (110) 100 04/12/18 04:00 97.7 76 18 138/76 (96) 98 04/12/18 00:00 97.9 77 19 138/69 (92) 98 04/11/18 21:00 Room Air Room Air 04/11/18 20:15 73 132/68 04/11/18 20:00 98.1 73 19 132/68 (89) 98 04/11/18 19:52 93 Room Air 21 04/11/18 16:00 98.8 68 19 108/57 (74) 100 04/11/18 13:11 129/69 Intake and Output 04/11/18 04/12/18 19:00 07:00 Intake Total 1600 ml 810 ml Balance 1600 ml 810 ml IV Total 900 ml 810 ml Other 700 ml # Voids 4 2 # Bowel Movements 1 General Appearance: WD/WN HEENT: normocephalic Respiratory/Chest: chest wall non-tender, lungs clear Breasts: no masses Cardiovascular: normal peripheral pulses Abdomen: normal bowel sounds, no mass Genitourinary: normal external genitalia Skin: no rash Laboratory Tests 04/12/18 06:00: White Blood Count 8.0, Red Blood Count 3.29L, Hemoglobin 8.6L, Hematocrit 28.0L , Mean Corpuscular Volume 85, Mean Corpuscular Hemoglobin 26.2L, Mean Corpuscular Hemoglobin Concent 30.8L, Red Cell Distribution Width 15.8H, Platelet Count 301, Mean Platelet Volume 7.1, Neutrophils (%) (Auto) 79.3H, Lymphocytes (%) (Auto) 12.5L, Monocytes (%) (Auto) 7.5, Eosinophils (%) (Auto) 0.5, Basophils (%) (Auto) 0.2, Sodium Level 139, Potassium Level 4.2, Chloride Level 107, Carbon Dioxide Level 25, Anion Gap 7, Blood Urea Nitrogen 11, Creatinine 0.7, Estimat Glomerular Filtration Rate , Glucose Level 110H, Calcium Level 7.8L Current Medications Medications (Trade) Dose Ordered Sig/Yi Route PRN Reason Start Time Stop Time Status Last Admin Dose Admin Acetaminophen (Tylenol) 650 mg Q6H PRN ORAL Mild Pain/Temp > 100.5 04/02/18 17:15 05/02/18 17:14 04/11/18 08:31 Acetaminophen/ Hydrocodone Bitart ([place] 5/325) 1 tab Q6H PRN ORAL PAIN 4-10 04/10/18 11:30 04/17/18 11:29 04/11/18 20:16 Albuterol/ Ipratropium (Albuterol/ Ipratropium) 3 ml Q4H PRN HHN Shortness of Breath 04/10/18 09:00 04/15/18 08:59 Atenolol (Tenormin) 50 mg Q12HR ORAL 04/02/18 21:00 05/02/18 20:59 04/12/18 09:32 Atorvastatin Calcium (Lipitor) 20 mg BEDTIME ORAL 04/03/18 21:00 05/03/18 20:59 04/11/18 20:15 Clonidine HCl (Catapres Tab) 0.1 mg EVERY 8 HOURS ORAL 04/02/18 22:00 05/02/18 21:59 04/11/18 13:11 Dextrose (Dextrose 50%) 25 ml Q30M PRN IV bs 60-69 04/06/18 15:30 05/06/18 15:29 Dextrose/ Electrolytes 1,000 ml @ 75 mls/hr [id number] IV 04/06/18 18:30 05/06/18 18:29 04/12/18 09:31 Dicyclomine HCl (Bentyl) 10 mg QID ORAL 04/02/18 18:00 05/02/18 17:59 04/12/18 09:32 Haloperidol Lactate (Haldol) 5 mg Q6H PRN IM Agitation 04/05/18 10:45 05/05/18 10:44 Iron Sucrose 100 mg/Sodium Chloride 60 ml @ 240 mls/hr BEDTIME IV 04/11/18 21:00 04/13/18 21:14 04/11/18 20:23 Lorazepam (Ativan 2mg/ml 1ml) 1 mg Q4H PRN IM For Anxiety 04/10/18 09:00 04/17/18 08:59 04/11/18 23:54 Losartan Potassium (Cozaar) 50 mg DAILY ORAL 04/06/18 09:00 05/03/18 08:59 04/12/18 09:31 Metformin HCl (Glucophage) 500 mg BID ORAL 04/03/18 09:00 05/03/18 08:59 04/12/18 09:32 Phosphorus (Phospha 250 Neutral) 250 mg THREE TIMES A DAY ORAL 04/10/18 09:00 05/10/18 08:59 04/12/18 09:32 Potassium Chloride (K-Dur) 10 meq DAILY ORAL 04/03/18 09:00 05/03/18 08:59 04/12/18 09:32 Sitagliptin Phosphate (Januvia) 50 mg ACBREAKFAST ORAL 04/03/18 06:30 05/03/18 06:29 04/11/18 06:32 Sorbitol (Sorbitol) 45 ml QHS ORAL 04/08/18 21:00 05/08/18 20:59 04/11/18 20:15 Trazodone HCl (Desyrel) 50 mg BEDTIME ORAL 04/02/18 21:00 05/02/18 20:59 04/11/18 20:14 Vitamin D (Vitamin D) 5,000 intlu DAILY ORAL 04/03/18 09:00 05/03/18 08:59 04/12/18 09:31 Rod Mancera MD Apr 12, 2018 12:51
[2018-04-12] MEDS: Norco 5mg/325mg tab ORAL PRN (13:52)
[2018-04-12 16:00] VITALS: BP 115/71
[2018-04-12] MEDS: LORazepam Inj 2mg/ml 1ml IM PRN (17:01)
--- NOTE | 2018-04-12 18:30 | Internal Med Progress Note ---
Subjective Date of Service: Apr 12, 2018 Physician Name Matthews,Aquilino Attending Physician Carlos Alberto Berkowitz MD Current Medications Medications (Trade) Dose Ordered Sig/Yi Route PRN Reason Start Time Stop Time Status Last Admin Dose Admin Acetaminophen (Tylenol) 650 mg Q6H PRN ORAL Mild Pain/Temp > 100.5 04/02/18 17:15 05/02/18 17:14 04/11/18 08:31 Acetaminophen/ Hydrocodone Bitart ([place] 5/325) 1 tab Q6H PRN ORAL PAIN 4-10 04/10/18 11:30 04/17/18 11:29 04/12/18 13:52 Albuterol/ Ipratropium (Albuterol/ Ipratropium) 3 ml Q4H PRN HHN Shortness of Breath 04/10/18 09:00 04/15/18 08:59 Atenolol (Tenormin) 50 mg Q12HR ORAL 04/02/18 21:00 05/02/18 20:59 04/12/18 09:32 Atorvastatin Calcium (Lipitor) 20 mg BEDTIME ORAL 04/03/18 21:00 05/03/18 20:59 04/11/18 20:15 Clonidine HCl (Catapres Tab) 0.1 mg EVERY 8 HOURS ORAL 04/02/18 22:00 05/02/18 21:59 04/11/18 13:11 Dextrose (Dextrose 50%) 25 ml Q30M PRN IV bs 60-69 04/06/18 15:30 05/06/18 15:29 Dextrose/ Electrolytes 1,000 ml @ 75 mls/hr [id number] IV 04/06/18 18:30 05/06/18 18:29 04/12/18 09:31 Dicyclomine HCl (Bentyl) 10 mg QID ORAL 04/02/18 18:00 05/02/18 17:59 04/12/18 18:00 Haloperidol Lactate (Haldol) 5 mg Q6H PRN IM Agitation 04/05/18 10:45 05/05/18 10:44 Iron Sucrose 100 mg/Sodium Chloride 60 ml @ 240 mls/hr BEDTIME IV 04/11/18 21:00 04/13/18 21:14 04/11/18 20:23 Lorazepam (Ativan 2mg/ml 1ml) 1 mg Q4H PRN IM For Anxiety 04/10/18 09:00 04/17/18 08:59 04/12/18 17:01 Losartan Potassium (Cozaar) 50 mg DAILY ORAL 04/06/18 09:00 05/03/18 08:59 04/12/18 09:31 Metformin HCl (Glucophage) 500 mg BID ORAL 04/03/18 09:00 05/03/18 08:59 04/12/18 18:00 Phosphorus (Phospha 250 Neutral) 250 mg THREE TIMES A DAY ORAL 04/10/18 09:00 05/10/18 08:59 04/12/18 18:00 Potassium Chloride (K-Dur) 10 meq DAILY ORAL 04/03/18 09:00 05/03/18 08:59 04/12/18 09:32 Sitagliptin Phosphate (Januvia) 50 mg ACBREAKFAST ORAL 04/03/18 06:30 05/03/18 06:29 04/11/18 06:32 Sorbitol (Sorbitol) 45 ml QHS ORAL 04/08/18 21:00 05/08/18 20:59 04/11/18 20:15 Trazodone HCl (Desyrel) 50 mg BEDTIME ORAL 04/02/18 21:00 05/02/18 20:59 04/11/18 20:14 Vitamin D (Vitamin D) 5,000 intlu DAILY ORAL 04/03/18 09:00 05/03/18 08:59 04/12/18 09:31 Allergies: Coded Allergies: No Known Allergies (Unverified , 08/10/13) ROS Limited/Unobtainable: No Constitutional: Reports: no symptoms HEENT: Reports: no symptoms Cardiovascular: Reports: no symptoms Respiratory: Reports: no symptoms Gastrointestinal/Abdominal: Reports: no symptoms Genitourinary: Reports: no symptoms Neurologic/Psychiatric: Reports: no symptoms Subjective 82 YO F admitted with generalized weakness. Cover for Int Aakash-Dr Berkowitz. S/P right hip total arthroplasty 04/06/18. S/P colonoscopy 04/06/18 Objective Last Vital Signs Date Time Temp Pulse Resp B/P (MAP) Pulse Ox O2 Delivery O2 Flow Rate FiO2 04/12/18 16:00 97.3 70 20 115/71 (86) 98 04/12/18 09:00 Room Air Room Air 04/12/18 08:01 98 04/10/18 21:00 2.0 2.0 Laboratory Tests Test 04/12/18 06:00 White Blood Count 8.0 K/UL (4.8-10.8) Red Blood Count 3.29 M/UL (4.20-5.40) L Hemoglobin 8.6 G/DL (12.0-16.0) L Hematocrit 28.0 % (37.0-47.0) L Mean Corpuscular Volume 85 FL (80-99) Mean Corpuscular Hemoglobin 26.2 PG (27.0-31.0) L Mean Corpuscular Hemoglobin Concent 30.8 G/DL (32.0-36.0) L Red Cell Distribution Width 15.8 % (11.6-14.8) H Platelet Count 301 K/UL (150-450) Mean Platelet Volume 7.1 FL (6.5-10.1) Neutrophils (%) (Auto) 79.3 % (45.0-75.0) H Lymphocytes (%) (Auto) 12.5 % (20.0-45.0) L Monocytes (%) (Auto) 7.5 % (1.0-10.0) Eosinophils (%) (Auto) 0.5 % (0.0-3.0) Basophils (%) (Auto) 0.2 % (0.0-2.0) Sodium Level 139 MMOL/L (136-145) Potassium Level 4.2 MMOL/L (3.5-5.1) Chloride Level 107 MMOL/L (98-107) Carbon Dioxide Level 25 MMOL/L (21-32) Anion Gap 7 mmol/L (5-15) Blood Urea Nitrogen 11 mg/dL (7-18) Creatinine 0.7 MG/DL (0.55-1.30) Estimat Glomerular Filtration Rate mL/min (>60) Glucose Level 110 MG/DL (74-106) H Calcium Level 7.8 MG/DL (8.5-10.1) L Intake and Output 04/11/18 04/12/18 19:00 07:00 Intake Total 1600 ml 810 ml Balance 1600 ml 810 ml IV Total 900 ml 810 ml Other 700 ml # Voids 4 2 # Bowel Movements 1 Objective General Appearance: WD/WN, mild distress, agitated EENT: PERRL/EOMI, normal ENT inspection Neck: non-tender, normal alignment, supple, normal inspection Cardiovascular: normal peripheral pulses, normal rate, regular rhythm, no gallop/murmur, no JVD Respiratory/Chest: chest wall non-tender, lungs clear, normal breath sounds, no accessory muscle use, respiratory distress Abdomen: normal bowel sounds, non tender, soft, no organomegaly, no mass Extremities: normal range of motion 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 (8) Rectal bleed Assessment & Plan: S/P colonoscopy 04/06/18=ulcerated hemorrhoid. See GI note. (9) Severe anemia Assessment & Plan: Due to rectal bleed. S/P transfusion 2 units packed RBC and 1 unit PRBC 04/09/18. Status: progressing Assessment/Plan Discharge planning: post acute care vs SNF vs acute rehab Aquilino Matthews MD Apr 12, 2018 18:30
[2018-04-12 20:00] VITALS: BP 148/90
[2018-04-12] MEDS: Sorbitol Solution UD 30ml ORAL SCH ×2 (21:00→21:20)
[2018-04-12] MEDS: TraZODone 50mg tab ORAL SCH ×2 (21:00→21:20)
[2018-04-12] MEDS: Atorvastatin 20mg tab ORAL SCH ×2 (21:00→21:19)
[2018-04-12] MEDS: Iron Sucrose 100 MG in NS 55 ML IV SCH (22:05)
--- NOTE | 2018-04-12 22:42 | General Progress Note ---
Assessment/Plan Assessment/Plan Assessment - constipation - on sorbitol - rectal bleeding due to ulcerated hemorrhoids - Anemia - agitation/OBS - dislocated hip - s/p arthroplasty conversion Recommendations - push po - Monitor H&H - transfuse PRN - Ortho f/u Subjective Allergies: Coded Allergies: No Known Allergies (Unverified , 08/10/13) Subjective no events calm NAD no abdominal issues Objective Last 24 Hour Vital Signs Date Time Temp Pulse Resp B/P (MAP) Pulse Ox O2 Delivery O2 Flow Rate FiO2 04/12/18 20:00 70 18 Room Air 21 04/12/18 16:00 97.3 70 20 115/71 (86) 98 04/12/18 13:53 117/56 04/12/18 12:00 97.2 66 20 117/56 (76) 98 04/12/18 09:32 84 145/93 04/12/18 09:31 145/93 04/12/18 09:00 Room Air Room Air 04/12/18 08:01 75 18 Room Air 98 04/12/18 08:01 94 Room Air 21 04/12/18 08:00 97.7 84 21 145/93 (110) 100 04/12/18 04:00 97.7 76 18 138/76 (96) 98 04/12/18 00:00 97.9 77 19 138/69 (92) 98 Intake and Output 04/11/18 04/12/18 19:00 07:00 Intake Total 1600 ml 810 ml Balance 1600 ml 810 ml IV Total 900 ml 810 ml Other 700 ml # Voids 4 2 # Bowel Movements 1 Laboratory Tests 04/12/18 06:00: White Blood Count 8.0, Red Blood Count 3.29L, Hemoglobin 8.6L, Hematocrit 28.0L , Mean Corpuscular Volume 85, Mean Corpuscular Hemoglobin 26.2L, Mean Corpuscular Hemoglobin Concent 30.8L, Red Cell Distribution Width 15.8H, Platelet Count 301, Mean Platelet Volume 7.1, Neutrophils (%) (Auto) 79.3H, Lymphocytes (%) (Auto) 12.5L, Monocytes (%) (Auto) 7.5, Eosinophils (%) (Auto) 0.5, Basophils (%) (Auto) 0.2, Sodium Level 139, Potassium Level 4.2, Chloride Level 107, Carbon Dioxide Level 25, Anion Gap 7, Blood Urea Nitrogen 11, Creatinine 0.7, Estimat Glomerular Filtration Rate , Glucose Level 110H, Calcium Level 7.8L Height (Feet): 5 Height (Inches): 5.00 Weight (Pounds): 136 Objective WDWN NCAT supple CTA RRR abd soft no edema Thalia Grant MD Apr 12, 2018 22:41
--- NOTE | 2018-04-12 23:18 | General Progress Note ---
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 SNOMED: 52802422 (2) Alzheimer's dementia ICD Codes: G30.9 - Alzheimer's disease, unspecified; F02.80 - Dementia in other diseases classified elsewhere without behavioral disturbance SNOMED: 97862665 Status: stable Assessment/Plan trazadone 50mg qhs klomopin .5mg q 6hr prn the pt lacks capacity to make decisions. Subjective Date patient seen: Apr 12, 2018 Neurologic/Psychiatric: Reports: anxiety, depressed, emotional problems Allergies: Coded Allergies: No Known Allergies (Unverified , 08/10/13) Objective Last 24 Hour Vital Signs Date Time Temp Pulse Resp B/P (MAP) Pulse Ox O2 Delivery O2 Flow Rate FiO2 04/12/18 20:00 70 18 Room Air 21 04/12/18 16:00 97.3 70 20 115/71 (86) 98 04/12/18 13:53 117/56 04/12/18 12:00 97.2 66 20 117/56 (76) 98 04/12/18 09:32 84 145/93 04/12/18 09:31 145/93 04/12/18 09:00 Room Air Room Air 04/12/18 08:01 75 18 Room Air 98 04/12/18 08:01 94 Room Air 21 04/12/18 08:00 97.7 84 21 145/93 (110) 100 04/12/18 04:00 97.7 76 18 138/76 (96) 98 04/12/18 00:00 97.9 77 19 138/69 (92) 98 Intake and Output 04/11/18 04/12/18 19:00 07:00 Intake Total 1600 ml 810 ml Balance 1600 ml 810 ml IV Total 900 ml 810 ml Other 700 ml # Voids 4 2 # Bowel Movements 1 Laboratory Tests 04/12/18 06:00: White Blood Count 8.0, Red Blood Count 3.29L, Hemoglobin 8.6L, Hematocrit 28.0L , Mean Corpuscular Volume 85, Mean Corpuscular Hemoglobin 26.2L, Mean Corpuscular Hemoglobin Concent 30.8L, Red Cell Distribution Width 15.8H, Platelet Count 301, Mean Platelet Volume 7.1, Neutrophils (%) (Auto) 79.3H, Lymphocytes (%) (Auto) 12.5L, Monocytes (%) (Auto) 7.5, Eosinophils (%) (Auto) 0.5, Basophils (%) (Auto) 0.2, Sodium Level 139, Potassium Level 4.2, Chloride Level 107, Carbon Dioxide Level 25, Anion Gap 7, Blood Urea Nitrogen 11, Creatinine 0.7, Estimat Glomerular Filtration Rate , Glucose Level 110H, Calcium Level 7.8L Height (Feet): 5 Height (Inches): 5.00 Weight (Pounds): 136 General Appearance: alert Neurologic: oriented x 3, responsive, depressed affect Lena Bob MD Apr 12, 2018 23:18
[2018-04-13] VITALS: BP 157/78
[2018-04-13] MEDS: Norco 5mg/325mg tab ORAL PRN ×3 (01:45→17:18)
[2018-04-13 04:00] VITALS: BP 147/73
[2018-04-13] MEDS: sitaGLIPtin 50mg tab ORAL SCH (06:00)
[2018-04-13 07:09] LABS: ANION GAP 7 mmol/L (5-15); BLOOD UREA NITROGEN 10 mg/dL (7-18); CALCIUM 7.8 MG/DL (8.5-10.1); CARBON DIOXIDE 24 MMOL/L (21-32); CHLORIDE 106 MMOL/L (98-107); CREATININE 0.7 MG/DL (0.55-1.30); POTASSIUM 4.8 MMOL/L (3.5-5.1); SODIUM 137 MMOL/L (136-145)
[2018-04-13 07:18] LABS: BASOPHILS % (AUTO) 0.6 % (0.0-2.0); EOSINOPHILS % (AUTO) 0.5 % (0.0-3.0); HEMATOCRIT 29.4 % (37.0-47.0); HEMOGLOBIN 9.2 G/DL (12.0-16.0); LYMPHOCYTES % (AUTO) 18.9 % (20.0-45.0); MEAN CORPUSCULAR VOLUME 85 FL (80-99); MONOCYTES % (AUTO) 7.4 % (1.0-10.0); NEUTROPHILS % (AUTO) 72.6 % (45.0-75.0); PLATELET COUNT 318 K/UL (150-450); RED BLOOD COUNT 3.45 M/UL (4.20-5.40); RED CELL DISTRIBUTION WIDTH 15.9 % (11.6-14.8); WHITE BLOOD COUNT 8.3 K/UL (4.8-10.8)
[2018-04-13 08:00] VITALS: BP 136/77
[2018-04-13] MEDS: Phospha 250 Neutral tab ORAL SCH ×3 (08:28→17:18)
[2018-04-13] MEDS: Losartan 50mg tab ORAL SCH (08:28)
[2018-04-13] MEDS: Dicyclomine 10mg Cap ORAL SCH ×4 (08:28→21:48)
[2018-04-13] MEDS: metFORMIN 500mg tab ORAL SCH ×2 (08:28→17:18)
[2018-04-13] MEDS: Vitamin D 1000 IU Tab ORAL SCH (08:29)
--- NOTE | 2018-04-13 10:53 | General Surgery Progress Note ---
General Surgery-Progress Note Subjective Additional Comments no acute events. h/h stable. wounds okay Objective Last 24 Hour Vital Signs Date Time Temp Pulse Resp B/P (MAP) Pulse Ox O2 Delivery O2 Flow Rate FiO2 04/13/18 09:30 71 18 Room Air 21 04/13/18 09:01 97.3 04/13/18 08:28 136/77 04/13/18 08:28 71 136/77 04/13/18 08:00 97.3 71 20 136/77 (96) 98 04/13/18 06:00 147/73 04/13/18 04:00 98.0 69 16 147/73 (97) 93 04/13/18 00:00 99.6 80 16 157/78 (104) 97 04/12/18 21:00 Room Air Room Air 04/12/18 20:00 70 18 Room Air 21 04/12/18 20:00 97.4 93 16 148/90 (109) 95 04/12/18 16:00 97.3 70 20 115/71 (86) 98 04/12/18 13:53 117/56 04/12/18 12:00 97.2 66 20 117/56 (76) 98 I&O Intake and Output 04/12/18 04/13/18 19:00 07:00 Intake Total 1275 ml Balance 1275 ml Intake Oral 600 ml IV Total 675 ml # Voids 2 3 Dressing: saturated Wound: other Drains: other Cardiovascular: RSR Respiratory: clear Abdomen: soft, flat, non-tender, present bowel sounds Extremities: other Laboratory Tests Test 04/13/18 06:10 White Blood Count 8.3 K/UL (4.8-10.8) Red Blood Count 3.45 M/UL (4.20-5.40) L Hemoglobin 9.2 G/DL (12.0-16.0) L Hematocrit 29.4 % (37.0-47.0) L Mean Corpuscular Volume 85 FL (80-99) Mean Corpuscular Hemoglobin 26.5 PG (27.0-31.0) L Mean Corpuscular Hemoglobin Concent 31.2 G/DL (32.0-36.0) L Red Cell Distribution Width 15.9 % (11.6-14.8) H Platelet Count 318 K/UL (150-450) Mean Platelet Volume 6.6 FL (6.5-10.1) Neutrophils (%) (Auto) 72.6 % (45.0-75.0) Lymphocytes (%) (Auto) 18.9 % (20.0-45.0) L Monocytes (%) (Auto) 7.4 % (1.0-10.0) Eosinophils (%) (Auto) 0.5 % (0.0-3.0) Basophils (%) (Auto) 0.6 % (0.0-2.0) Sodium Level 137 MMOL/L (136-145) Potassium Level 4.8 MMOL/L (3.5-5.1) Chloride Level 106 MMOL/L (98-107) Carbon Dioxide Level 24 MMOL/L (21-32) Anion Gap 7 mmol/L (5-15) Blood Urea Nitrogen 10 mg/dL (7-18) Creatinine 0.7 MG/DL (0.55-1.30) Estimat Glomerular Filtration Rate mL/min (>60) Glucose Level 173 MG/DL (74-106) H Calcium Level 7.8 MG/DL (8.5-10.1) L Plan Problems: (1) Sacral decubitus ulcer, stage III Assessment & Plan: Multiple pressure injuries to sacrum and R hip. Four individual pressure injuries in close proximity noted to sacrum,Total area measuring (L)2cm x (W)7 cm., each wound with 100% yellow slough with red margins. Non-blanchable erythema periwound. Small pressure injury noted to L buttocks (L)0.4cm x(W)0.5cm with 100% slough. Full thickness pressure injury to R hip at historical surgical incision (L) 1.1cm x(W)0.9cm ,with 90% yellow slough noted. Non-blanchable erythema noted periwound ,an area of (L)7cm x (W)6.6cm . Stable dry eschar medial R heel. Periwound without erythema or induration. Wounds present upon admission and will be cared for during hospital stay Tx.Plan: Reposition at least every 2hours or as tolerated. Air fluidized mattress. Apply Cavilon wipes to heels and off-load heels with pillow. Cleanse wounds Sacrum with Saline. Apply Therahoney to wounds .Cavilon to borders and cover with Optifoam Drsg. Cleanse R hip wound with Saline.Apply Therahoney.Apply Cavilon wipe to red area periwound and cover with Optifoam drsg Daily and prn. Will likely need excisional vs non excisional debridement of sloth down to healthy viable tissue. may consider during hospitalization once ortho and GI care completed. Plan for outpatient care. Nutritional support Ortho f/u of wound okay to d/c from surgical standpoint (2) Failure to thrive Assessment & Plan: elderly female with dementia albumin 2 multiple decubitus ulcers nutritional consult increase protein and Caloric intake will need optimization to help heal wounds DAILY ESTIMATED NEEDS: Needs based on Wound, DM, wasting / 51kg 30-35 kcals/kg [id number] total kcals 1.25-1.5 g protein/kg 64-77 g total protein NUTRITION DIAGNOSIS: * Increased kcal/prot needs R/T wound healing as evidenced by pt w/ stage 3 sacral and R hip wounds, refer to WC eval. PO DIET RECOMMENDATIONS: Matthews/ Regular diet w/ <50% po intake (texture per [employer]) ADDITIONAL RECOMMENDATIONS: * Calibrated bedscale wt for accurate CBW * Wound healing: add MVI w/ min 1 tab QD, Vit C 500mg BID, [place] 1pkt BID * Add Glucerna 1 tetra harper TID * Lytes daily, replete as needed ( Mg 1.6) . Sher Younger Apr 13, 2018 10:53
[2018-04-13] MEDS: D5 1/2NS w/KCl 20mEq 1,000 ML IV SCH (11:32)
[2018-04-13 12:00] VITALS: BP 116/60
--- NOTE | 2018-04-13 12:38 | Pulmonology Progress Note ---
Assessment/Plan Problems: (1) Hip dislocation, right (2) Sacral decubitus ulcer, stage III (3) Protein-calorie malnutrition, severe (4) Psychosis (5) CAD (coronary artery disease) (6) Pulmonary hypertension (7) Aortic stenosis (8) Pacemaker (9) Diabetes mellitus, type II (10) HTN (hypertension) (11) Alzheimer's dementia Assessment/Plan no new complains check h/h and Pt, ptt in symptomatic treatment f/u ortho recommendations wound care consult nutrition evaluation social service consult check electrolytes dvt prophylaxis Subjective ROS Limited/Unobtainable: No Constitutional: Reports: no symptoms HEENT: Repors: no symptoms Allergies: Coded Allergies: No Known Allergies (Unverified , 08/10/13) Objective Last 24 Hour Vital Signs Date Time Temp Pulse Resp B/P (MAP) Pulse Ox O2 Delivery O2 Flow Rate FiO2 04/13/18 09:30 71 18 Room Air 21 04/13/18 09:01 97.3 04/13/18 09:00 Room Air Room Air 04/13/18 08:28 136/77 04/13/18 08:28 71 136/77 04/13/18 08:00 97.3 71 20 136/77 (96) 98 04/13/18 06:00 147/73 04/13/18 04:00 98.0 69 16 147/73 (97) 93 04/13/18 00:00 99.6 80 16 157/78 (104) 97 04/12/18 21:00 Room Air Room Air 04/12/18 20:00 70 18 Room Air 21 04/12/18 20:00 97.4 93 16 148/90 (109) 95 04/12/18 16:00 97.3 70 20 115/71 (86) 98 04/12/18 13:53 117/56 Intake and Output 04/12/18 04/13/18 19:00 07:00 Intake Total 1275 ml Balance 1275 ml Intake Oral 600 ml IV Total 675 ml # Voids 2 3 General Appearance: cachetic HEENT: normocephalic, atraumatic Respiratory/Chest: chest wall non-tender, lungs clear Breasts: no masses Cardiovascular: normal peripheral pulses Abdomen: normal bowel sounds, soft, non tender Extremities: no cyanosis, no clubbing Skin: no lesions 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 normal Laboratory Tests 04/13/18 06:10: White Blood Count 8.3, Red Blood Count 3.45L, Hemoglobin 9.2L, Hematocrit 29.4L , Mean Corpuscular Volume 85, Mean Corpuscular Hemoglobin 26.5L, Mean Corpuscular Hemoglobin Concent 31.2L, Red Cell Distribution Width 15.9H, Platelet Count 318, Mean Platelet Volume 6.6, Neutrophils (%) (Auto) 72.6, Lymphocytes (%) (Auto) 18.9L, Monocytes (%) (Auto) 7.4, Eosinophils (%) (Auto) 0.5, Basophils (%) (Auto) 0.6, Sodium Level 137, Potassium Level 4.8, Chloride Level 106, Carbon Dioxide Level 24, Anion Gap 7, Blood Urea Nitrogen 10, Creatinine 0.7, Estimat Glomerular Filtration Rate , Glucose Level 173H, Calcium Level 7.8L Current Medications Medications (Trade) Dose Ordered Sig/Yi Route PRN Reason Start Time Stop Time Status Last Admin Dose Admin Acetaminophen (Tylenol) 650 mg Q6H PRN ORAL Mild Pain/Temp > 100.5 04/02/18 17:15 05/02/18 17:14 04/11/18 08:31 Acetaminophen/ Hydrocodone Bitart ([place] 5/325) 1 tab Q6H PRN ORAL PAIN 4-10 04/10/18 11:30 04/17/18 11:29 04/13/18 08:31 Albuterol/ Ipratropium (Albuterol/ Ipratropium) 3 ml Q4H PRN HHN Shortness of Breath 04/10/18 09:00 04/15/18 08:59 Atenolol (Tenormin) 50 mg Q12HR ORAL 04/02/18 21:00 05/02/18 20:59 04/13/18 08:28 Atorvastatin Calcium (Lipitor) 20 mg BEDTIME ORAL 04/03/18 21:00 05/03/18 20:59 04/11/18 20:15 Clonidine HCl (Catapres Tab) 0.1 mg EVERY 8 HOURS ORAL 04/02/18 22:00 05/02/18 21:59 04/13/18 06:00 Dextrose (Dextrose 50%) 25 ml Q30M PRN IV bs 60-69 04/06/18 15:30 05/06/18 15:29 Dextrose/ Electrolytes 1,000 ml @ 75 mls/hr [id number] IV 04/06/18 18:30 05/06/18 18:29 04/13/18 11:32 Dicyclomine HCl (Bentyl) 10 mg QID ORAL 04/02/18 18:00 05/02/18 17:59 04/13/18 08:28 Haloperidol Lactate (Haldol) 5 mg Q6H PRN IM Agitation 04/05/18 10:45 05/05/18 10:44 Iron Sucrose 100 mg/Sodium Chloride 60 ml @ 240 mls/hr BEDTIME IV 04/11/18 21:00 04/13/18 21:14 04/12/18 22:05 Lorazepam (Ativan 2mg/ml 1ml) 1 mg Q4H PRN IM For Anxiety 04/10/18 09:00 04/17/18 08:59 04/12/18 17:01 Losartan Potassium (Cozaar) 50 mg DAILY ORAL 04/06/18 09:00 05/03/18 08:59 04/13/18 08:28 Metformin HCl (Glucophage) 500 mg BID ORAL 04/03/18 09:00 05/03/18 08:59 04/13/18 08:28 Phosphorus (Phospha 250 Neutral) 250 mg THREE TIMES A DAY ORAL 04/10/18 09:00 05/10/18 08:59 04/13/18 08:28 Potassium Chloride (K-Dur) 10 meq DAILY ORAL 04/03/18 09:00 05/03/18 08:59 04/13/18 08:29 Sitagliptin Phosphate (Januvia) 50 mg ACBREAKFAST ORAL 04/03/18 06:30 05/03/18 06:29 04/13/18 06:00 Sorbitol (Sorbitol) 45 ml QHS ORAL 04/08/18 21:00 05/08/18 20:59 04/11/18 20:15 Trazodone HCl (Desyrel) 50 mg BEDTIME ORAL 04/02/18 21:00 05/02/18 20:59 04/11/18 20:14 Vitamin D (Vitamin D) 5,000 intlu DAILY ORAL 04/03/18 09:00 05/03/18 08:59 04/13/18 08:29 Rod Mancera MD Apr 13, 2018 12:38
--- NOTE | 2018-04-13 12:51 | General Progress Note ---
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 SNOMED: 00419638 (2) Alzheimer's dementia ICD Codes: G30.9 - Alzheimer's disease, unspecified; F02.80 - Dementia in other diseases classified elsewhere without behavioral disturbance SNOMED: 89644160 Assessment/Plan remeron 15mg ativan prn the pt lacks capacity to make decisions. Subjective Neurologic/Psychiatric: Reports: anxiety, depressed, emotional problems Allergies: Coded Allergies: No Known Allergies (Unverified , 08/10/13) Objective Last 24 Hour Vital Signs Date Time Temp Pulse Resp B/P (MAP) Pulse Ox O2 Delivery O2 Flow Rate FiO2 04/13/18 12:00 96.1 64 16 116/60 (78) 100 04/13/18 09:30 71 18 Room Air 21 04/13/18 09:01 97.3 04/13/18 09:00 Room Air Room Air 04/13/18 08:28 136/77 04/13/18 08:28 71 136/77 04/13/18 08:00 97.3 71 20 136/77 (96) 98 04/13/18 06:00 147/73 04/13/18 04:00 98.0 69 16 147/73 (97) 93 04/13/18 00:00 99.6 80 16 157/78 (104) 97 04/12/18 21:00 Room Air Room Air 04/12/18 20:00 70 18 Room Air 21 04/12/18 20:00 97.4 93 16 148/90 (109) 95 04/12/18 16:00 97.3 70 20 115/71 (86) 98 04/12/18 13:53 117/56 Intake and Output 04/12/18 04/13/18 19:00 07:00 Intake Total 1275 ml Balance 1275 ml Intake Oral 600 ml IV Total 675 ml # Voids 2 3 Laboratory Tests 04/13/18 06:10: White Blood Count 8.3, Red Blood Count 3.45L, Hemoglobin 9.2L, Hematocrit 29.4L , Mean Corpuscular Volume 85, Mean Corpuscular Hemoglobin 26.5L, Mean Corpuscular Hemoglobin Concent 31.2L, Red Cell Distribution Width 15.9H, Platelet Count 318, Mean Platelet Volume 6.6, Neutrophils (%) (Auto) 72.6, Lymphocytes (%) (Auto) 18.9L, Monocytes (%) (Auto) 7.4, Eosinophils (%) (Auto) 0.5, Basophils (%) (Auto) 0.6, Sodium Level 137, Potassium Level 4.8, Chloride Level 106, Carbon Dioxide Level 24, Anion Gap 7, Blood Urea Nitrogen 10, Creatinine 0.7, Estimat Glomerular Filtration Rate , Glucose Level 173H, Calcium Level 7.8L Height (Feet): 5 Height (Inches): 5.00 Weight (Pounds): 136 General Appearance: alert, confused, agitated Neurologic: alert, responsive, disoriented, depressed affect Lena Bob MD Apr 13, 2018 12:51
[2018-04-13] MEDS: OLANZapine 2.5mg tab ORAL SCH (13:02)
[2018-04-13 16:00] VITALS: BP 117/57
--- NOTE | 2018-04-13 16:15 | Progress Note ---
DATE: 04/13/2018 SUBJECTIVE: The patient continues to be having cognitive impairment, has episodes of agitation. He is having cognitive impairment and is able to respond to simple questions. MENTAL STATUS EXAMINATION: The patient is alert and oriented times self. Mood is anxious. Affect is constricted. Congruent with mood. Thought process is concrete. Thought content, no suicidal or homicidal ideation. Cognition is impaired. ASSESSMENT: 1. 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 2. Agitation PLAN: 1. We will continue the current medication. 2. Provide the patient with reality orientation and supportive therapy. Lena Bob M.D. DR: Bertha JOB#: [id number] CC:
--- NOTE | 2018-04-13 18:00 | Internal Med Progress Note ---
Subjective Date of Service: Apr 13, 2018 Physician Name Matthews,Aquilino Attending Physician Carlos Alberto Berkowitz MD Current Medications Medications (Trade) Dose Ordered Sig/Yi Route PRN Reason Start Time Stop Time Status Last Admin Dose Admin Acetaminophen (Tylenol) 650 mg Q6H PRN ORAL Mild Pain/Temp > 100.5 04/02/18 17:15 05/02/18 17:14 04/11/18 08:31 Acetaminophen/ Hydrocodone Bitart ([place] 5/325) 1 tab Q6H PRN ORAL PAIN 4-10 04/10/18 11:30 04/17/18 11:29 04/13/18 17:18 Albuterol/ Ipratropium (Albuterol/ Ipratropium) 3 ml Q4H PRN HHN Shortness of Breath 04/10/18 09:00 04/15/18 08:59 Atenolol (Tenormin) 50 mg Q12HR ORAL 04/02/18 21:00 05/02/18 20:59 04/13/18 08:28 Atorvastatin Calcium (Lipitor) 20 mg BEDTIME ORAL 04/03/18 21:00 05/03/18 20:59 04/11/18 20:15 Clonidine HCl (Catapres Tab) 0.1 mg EVERY 8 HOURS ORAL 04/02/18 22:00 05/02/18 21:59 04/13/18 13:01 Dextrose (Dextrose 50%) 25 ml Q30M PRN IV bs 60-69 04/06/18 15:30 05/06/18 15:29 Dextrose/ Electrolytes 1,000 ml @ 75 mls/hr [id number] IV 04/06/18 18:30 05/06/18 18:29 04/13/18 11:32 Dicyclomine HCl (Bentyl) 10 mg QID ORAL 04/02/18 18:00 05/02/18 17:59 04/13/18 13:02 Haloperidol Lactate (Haldol) 5 mg Q6H PRN IM Agitation 04/05/18 10:45 05/05/18 10:44 Iron Sucrose 100 mg/Sodium Chloride 60 ml @ 240 mls/hr BEDTIME IV 04/11/18 21:00 04/13/18 21:14 04/12/18 22:05 Lorazepam (Ativan 2mg/ml 1ml) 1 mg Q4H PRN IM For Anxiety 04/10/18 09:00 04/17/18 08:59 04/12/18 17:01 Losartan Potassium (Cozaar) 50 mg DAILY ORAL 04/06/18 09:00 05/03/18 08:59 04/13/18 08:28 Metformin HCl (Glucophage) 500 mg BID ORAL 04/03/18 09:00 05/03/18 08:59 04/13/18 17:18 Mirtazapine (Remeron) 15 mg BEDTIME ORAL 04/13/18 21:00 05/13/18 20:59 Olanzapine (ZyPREXA) 2.5 mg DAILY ORAL 04/13/18 12:52 05/13/18 12:51 04/13/18 13:02 Phosphorus (Phospha 250 Neutral) 250 mg THREE TIMES A DAY ORAL 04/10/18 09:00 05/10/18 08:59 04/13/18 17:18 Potassium Chloride (K-Dur) 10 meq DAILY ORAL 04/03/18 09:00 05/03/18 08:59 04/13/18 08:29 Sitagliptin Phosphate (Januvia) 50 mg ACBREAKFAST ORAL 04/03/18 06:30 05/03/18 06:29 04/13/18 06:00 Sorbitol (Sorbitol) 45 ml QHS ORAL 04/08/18 21:00 05/08/18 20:59 04/11/18 20:15 Vitamin D (Vitamin D) 5,000 intlu DAILY ORAL 04/03/18 09:00 05/03/18 08:59 04/13/18 08:29 Allergies: Coded Allergies: No Known Allergies (Unverified , 08/10/13) ROS Limited/Unobtainable: No Constitutional: Reports: no symptoms HEENT: Reports: no symptoms Cardiovascular: Reports: no symptoms Respiratory: Reports: no symptoms Gastrointestinal/Abdominal: Reports: no symptoms Genitourinary: Reports: no symptoms Neurologic/Psychiatric: Reports: no symptoms Subjective 82 YO F admitted with generalized weakness. Cover for Int Aakash-Dr Berkowitz. S/P right hip total arthroplasty 04/06/18. S/P colonoscopy 04/06/18. Patient pulled out IV Objective Last Vital Signs Date Time Temp Pulse Resp B/P (MAP) Pulse Ox O2 Delivery O2 Flow Rate FiO2 04/13/18 17:48 96.1 04/13/18 16:00 66 16 117/57 (77) 98 04/13/18 09:30 Room Air 21 04/10/18 21:00 2.0 2.0 Laboratory Tests Test 04/13/18 06:10 White Blood Count 8.3 K/UL (4.8-10.8) Red Blood Count 3.45 M/UL (4.20-5.40) L Hemoglobin 9.2 G/DL (12.0-16.0) L Hematocrit 29.4 % (37.0-47.0) L Mean Corpuscular Volume 85 FL (80-99) Mean Corpuscular Hemoglobin 26.5 PG (27.0-31.0) L Mean Corpuscular Hemoglobin Concent 31.2 G/DL (32.0-36.0) L Red Cell Distribution Width 15.9 % (11.6-14.8) H Platelet Count 318 K/UL (150-450) Mean Platelet Volume 6.6 FL (6.5-10.1) Neutrophils (%) (Auto) 72.6 % (45.0-75.0) Lymphocytes (%) (Auto) 18.9 % (20.0-45.0) L Monocytes (%) (Auto) 7.4 % (1.0-10.0) Eosinophils (%) (Auto) 0.5 % (0.0-3.0) Basophils (%) (Auto) 0.6 % (0.0-2.0) Sodium Level 137 MMOL/L (136-145) Potassium Level 4.8 MMOL/L (3.5-5.1) Chloride Level 106 MMOL/L (98-107) Carbon Dioxide Level 24 MMOL/L (21-32) Anion Gap 7 mmol/L (5-15) Blood Urea Nitrogen 10 mg/dL (7-18) Creatinine 0.7 MG/DL (0.55-1.30) Estimat Glomerular Filtration Rate mL/min (>60) Glucose Level 173 MG/DL (74-106) H Calcium Level 7.8 MG/DL (8.5-10.1) L Intake and Output 04/12/18 04/13/18 19:00 07:00 Intake Total 1275 ml Balance 1275 ml Intake Oral 600 ml IV Total 675 ml # Voids 2 3 Objective General Appearance: WD/WN, mild distress, agitated EENT: PERRL/EOMI, normal ENT inspection Neck: non-tender, normal alignment, supple, normal inspection Cardiovascular: normal peripheral pulses, normal rate, regular rhythm, no gallop/murmur, no JVD Respiratory/Chest: chest wall non-tender, lungs clear, normal breath sounds, no accessory muscle use, respiratory distress Abdomen: normal bowel sounds, non tender, soft, no organomegaly, no mass Extremities: normal range of motion 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 (8) Rectal bleed Assessment & Plan: S/P colonoscopy 04/06/18=ulcerated hemorrhoid. See GI note. (9) Severe anemia Assessment & Plan: Due to rectal bleed. S/P transfusion 2 units packed RBC and 1 unit PRBC 04/09/18. Assessment/Plan Discharge planning: post acute care vs SNF vs acute rehab Aquilino Matthews MD Apr 13, 2018 18:00
--- NOTE | 2018-04-13 19:20 | General Progress Note ---
Assessment/Plan Assessment/Plan Assessment - constipation - on sorbitol - rectal bleeding due to ulcerated hemorrhoids - Anemia - agitation/OBS - dislocated hip - s/p arthroplasty conversion Recommendations - push po - Monitor H&H - transfuse PRN - Ortho f/u Subjective Allergies: Coded Allergies: No Known Allergies (Unverified , 08/10/13) Subjective no events no abdominal issues (+) BM agitated at times Objective Last 24 Hour Vital Signs Date Time Temp Pulse Resp B/P (MAP) Pulse Ox O2 Delivery O2 Flow Rate FiO2 04/13/18 17:48 96.1 04/13/18 16:00 97.9 66 16 117/57 (77) 98 04/13/18 13:01 116/60 04/13/18 12:00 96.1 64 16 116/60 (78) 100 04/13/18 09:30 71 18 Room Air 21 04/13/18 09:00 Room Air Room Air 04/13/18 08:28 136/77 04/13/18 08:28 71 136/77 04/13/18 08:00 97.3 71 20 136/77 (96) 98 04/13/18 06:00 147/73 04/13/18 04:00 98.0 69 16 147/73 (97) 93 04/13/18 00:00 99.6 80 16 157/78 (104) 97 04/12/18 21:00 Room Air Room Air 04/12/18 20:00 70 18 Room Air 21 04/12/18 20:00 97.4 93 16 148/90 (109) 95 Intake and Output 04/12/18 04/13/18 19:00 07:00 Intake Total 1275 ml Balance 1275 ml Intake Oral 600 ml IV Total 675 ml # Voids 2 3 Laboratory Tests 04/13/18 06:10: White Blood Count 8.3, Red Blood Count 3.45L, Hemoglobin 9.2L, Hematocrit 29.4L , Mean Corpuscular Volume 85, Mean Corpuscular Hemoglobin 26.5L, Mean Corpuscular Hemoglobin Concent 31.2L, Red Cell Distribution Width 15.9H, Platelet Count 318, Mean Platelet Volume 6.6, Neutrophils (%) (Auto) 72.6, Lymphocytes (%) (Auto) 18.9L, Monocytes (%) (Auto) 7.4, Eosinophils (%) (Auto) 0.5, Basophils (%) (Auto) 0.6, Sodium Level 137, Potassium Level 4.8, Chloride Level 106, Carbon Dioxide Level 24, Anion Gap 7, Blood Urea Nitrogen 10, Creatinine 0.7, Estimat Glomerular Filtration Rate , Glucose Level 173H, Calcium Level 7.8L Height (Feet): 5 Height (Inches): 5.00 Weight (Pounds): 136 Objective WDWN NCAT supple CTA RRR abd soft no edema Thalia Grant MD Apr 13, 2018 19:20
[2018-04-13 20:00] VITALS: BP 128/59
[2018-04-13] MEDS: Sorbitol Solution UD 30ml ORAL SCH (21:00)
[2018-04-13] MEDS: Atorvastatin 20mg tab ORAL SCH (21:48)
[2018-04-14] VITALS: BP 141/68
[2018-04-14 04:00] VITALS: BP 139/67
[2018-04-14] MEDS: Norco 5mg/325mg tab ORAL PRN ×2 (04:03→13:05)
[2018-04-14] MEDS: sitaGLIPtin 50mg tab ORAL SCH (05:28)
[2018-04-14] MEDS: LORazepam Inj 2mg/ml 1ml IM PRN (05:28)
[2018-04-14 06:33] LABS: BASOPHILS % (AUTO) 0.2 % (0.0-2.0); EOSINOPHILS % (AUTO) 0.4 % (0.0-3.0); HEMATOCRIT 28.8 % (37.0-47.0); HEMOGLOBIN 9.1 G/DL (12.0-16.0); LYMPHOCYTES % (AUTO) 10.6 % (20.0-45.0); MEAN CORPUSCULAR VOLUME 85 FL (80-99); MONOCYTES % (AUTO) 5.8 % (1.0-10.0); NEUTROPHILS % (AUTO) 82.9 % (45.0-75.0); PLATELET COUNT 339 K/UL (150-450); RED CELL DISTRIBUTION WIDTH 16.4 % (11.6-14.8); WHITE BLOOD COUNT 9.3 K/UL (4.8-10.8)
[2018-04-14 06:48] LABS: ANION GAP 9 mmol/L (5-15); BLOOD UREA NITROGEN 11 mg/dL (7-18); CALCIUM 8.3 MG/DL (8.5-10.1); CARBON DIOXIDE 24 MMOL/L (21-32); CHLORIDE 109 MMOL/L (98-107); CREATININE 0.7 MG/DL (0.55-1.30); POTASSIUM 3.8 MMOL/L (3.5-5.1); SODIUM 142 MMOL/L (136-145)
[2018-04-14 08:00] VITALS: BP 143/64
[2018-04-14] MEDS: Dicyclomine 10mg Cap ORAL SCH ×3 (08:55→17:31)
[2018-04-14] MEDS: Vitamin D 1000 IU Tab ORAL SCH (08:55)
[2018-04-14] MEDS: OLANZapine 2.5mg tab ORAL SCH (08:55)
[2018-04-14] MEDS: Phospha 250 Neutral tab ORAL SCH ×3 (08:55→17:31)
[2018-04-14] MEDS: metFORMIN 500mg tab ORAL SCH ×2 (08:56→17:31)
[2018-04-14] MEDS: Losartan 50mg tab ORAL SCH (08:56)
[2018-04-14] MEDS ORDERED: LORazepam 1mg tab ORAL PRN (11:45)
--- NOTE | 2018-04-14 11:47 | General Progress Note ---
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 SNOMED: [id number] (2) Alzheimer's dementia ICD Codes: G30.9 - Alzheimer's disease, unspecified; F02.80 - Dementia in other diseases classified elsewhere without behavioral disturbance SNOMED: [id number] Status: stable Assessment/Plan Remeron 15mg increase Ativan prn the pt lacks capacity to make decisions. ashu Guajardo Subjective Date patient seen: Apr 14, 2018 Neurologic/Psychiatric: Reports: anxiety, depressed, emotional problems Allergies: Coded Allergies: No Known Allergies (Unverified , 08/10/13) Subjective the pt was agitated and pull out the IV access. the pt was yelling all day Objective Last 24 Hour Vital Signs Date Time Temp Pulse Resp B/P (MAP) Pulse Ox O2 Delivery O2 Flow Rate FiO2 04/14/18 09:00 Room Air Room Air 04/14/18 08:57 78 143/64 04/14/18 08:56 143/64 04/14/18 08:00 98.7 78 18 143/64 (90) 99 04/14/18 04:33 98.1 04/14/18 04:00 98.1 78 20 139/67 (91) 96 04/14/18 00:00 97.0 75 20 141/68 (92) 99 04/13/18 21:48 67 128/59 04/13/18 21:09 128/59 04/13/18 21:00 Room Air Room Air 04/13/18 20:00 98.0 67 20 128/59 (82) 97 04/13/18 19:44 68 16 Room Air 21 04/13/18 16:00 97.9 66 16 117/57 (77) 98 04/13/18 13:01 116/60 04/13/18 12:00 96.1 64 16 116/60 (78) 100 Intake and Output 04/13/18 04/14/18 18:59 06:59 Intake Total 1061 ml 220 ml Balance 1061 ml 220 ml Intake Oral 236 ml 220 ml IV Total 825 ml # Voids 1 4 Laboratory Tests 04/14/18 05:00: White Blood Count 9.3, Red Blood Count 3.40L, Hemoglobin 9.1L, Hematocrit 28.8L , Mean Corpuscular Volume 85, Mean Corpuscular Hemoglobin 26.7L, Mean Corpuscular Hemoglobin Concent 31.5L, Red Cell Distribution Width 16.4H, Platelet Count 339, Mean Platelet Volume 7.1, Neutrophils (%) (Auto) 82.9H, Lymphocytes (%) (Auto) 10.6L, Monocytes (%) (Auto) 5.8, Eosinophils (%) (Auto) 0.4, Basophils (%) (Auto) 0.2, Sodium Level 142, Potassium Level 3.8, Chloride Level 109H, Carbon Dioxide Level 24, Anion Gap 9, Blood Urea Nitrogen 11, Creatinine 0.7, Estimat Glomerular Filtration Rate , Glucose Level 125H, Calcium Level 8.3L Height (Feet): 5 Height (Inches): 5.00 Weight (Pounds): 148 General Appearance: alert, confused, moderate distress, agitated Lena Bob MD Apr 14, 2018 11:47
--- NOTE | 2018-04-14 11:55 | General Surgery Progress Note ---
General Surgery-Progress Note Subjective Additional Comments no acute events. Objective Last 24 Hour Vital Signs Date Time Temp Pulse Resp B/P (MAP) Pulse Ox O2 Delivery O2 Flow Rate FiO2 04/14/18 09:00 Room Air Room Air 04/14/18 08:57 78 143/64 04/14/18 08:56 143/64 04/14/18 08:00 98.7 78 18 143/64 (90) 99 04/14/18 04:33 98.1 04/14/18 04:00 98.1 78 20 139/67 (91) 96 04/14/18 00:00 97.0 75 20 141/68 (92) 99 04/13/18 21:48 67 128/59 04/13/18 21:09 128/59 04/13/18 21:00 Room Air Room Air 04/13/18 20:00 98.0 67 20 128/59 (82) 97 04/13/18 19:44 68 16 Room Air 21 04/13/18 16:00 97.9 66 16 117/57 (77) 98 04/13/18 13:01 116/60 04/13/18 12:00 96.1 64 16 116/60 (78) 100 I&O Intake and Output 04/13/18 04/14/18 18:59 06:59 Intake Total 1061 ml 220 ml Balance 1061 ml 220 ml Intake Oral 236 ml 220 ml IV Total 825 ml # Voids 1 4 Dressing: saturated Wound: other Drains: other Cardiovascular: RSR Respiratory: decreased breath sounds Abdomen: soft, flat, non-tender, present bowel sounds Extremities: other Laboratory Tests Test 04/14/18 05:00 White Blood Count 9.3 K/UL (4.8-10.8) Red Blood Count 3.40 M/UL (4.20-5.40) L Hemoglobin 9.1 G/DL (12.0-16.0) L Hematocrit 28.8 % (37.0-47.0) L Mean Corpuscular Volume 85 FL (80-99) Mean Corpuscular Hemoglobin 26.7 PG (27.0-31.0) L Mean Corpuscular Hemoglobin Concent 31.5 G/DL (32.0-36.0) L Red Cell Distribution Width 16.4 % (11.6-14.8) H Platelet Count 339 K/UL (150-450) Mean Platelet Volume 7.1 FL (6.5-10.1) Neutrophils (%) (Auto) 82.9 % (45.0-75.0) H Lymphocytes (%) (Auto) 10.6 % (20.0-45.0) L Monocytes (%) (Auto) 5.8 % (1.0-10.0) Eosinophils (%) (Auto) 0.4 % (0.0-3.0) Basophils (%) (Auto) 0.2 % (0.0-2.0) Sodium Level 142 MMOL/L (136-145) Potassium Level 3.8 MMOL/L (3.5-5.1) Chloride Level 109 MMOL/L (98-107) H Carbon Dioxide Level 24 MMOL/L (21-32) Anion Gap 9 mmol/L (5-15) Blood Urea Nitrogen 11 mg/dL (7-18) Creatinine 0.7 MG/DL (0.55-1.30) Estimat Glomerular Filtration Rate mL/min (>60) Glucose Level 125 MG/DL (74-106) H Calcium Level 8.3 MG/DL (8.5-10.1) L Plan Problems: (1) Sacral decubitus ulcer, stage III Assessment & Plan: Multiple pressure injuries to sacrum and R hip. Four individual pressure injuries in close proximity noted to sacrum,Total area measuring (L)2cm x (W)7 cm., each wound with 100% yellow slough with red margins. Non-blanchable erythema periwound. Small pressure injury noted to L buttocks (L)0.4cm x(W)0.5cm with 100% slough. Full thickness pressure injury to R hip at historical surgical incision (L) 1.1cm x(W)0.9cm ,with 90% yellow slough noted. Non-blanchable erythema noted periwound ,an area of (L)7cm x (W)6.6cm . Stable dry eschar medial R heel. Periwound without erythema or induration. Wounds present upon admission and will be cared for during hospital stay Tx.Plan: Reposition at least every 2hours or as tolerated. Air fluidized mattress. Apply Cavilon wipes to heels and off-load heels with pillow. Cleanse wounds Sacrum with Saline. Apply Therahoney to wounds .Cavilon to borders and cover with Optifoam Drsg. Cleanse R hip wound with Saline.Apply Therahoney.Apply Cavilon wipe to red area periwound and cover with Optifoam drsg Daily and prn. Will likely need excisional vs non excisional debridement of sloth down to healthy viable tissue. may consider during hospitalization once ortho and GI care completed. Plan for outpatient care. Nutritional support Ortho f/u of wound okay to d/c from surgical standpoint (2) Failure to thrive Assessment & Plan: elderly female with dementia albumin 2 multiple decubitus ulcers nutritional consult increase protein and Caloric intake will need optimization to help heal wounds DAILY ESTIMATED NEEDS: Needs based on Wound, DM, wasting / 51kg 30-35 kcals/kg [id number] total kcals 1.25-1.5 g protein/kg 64-77 g total protein NUTRITION DIAGNOSIS: * Increased kcal/prot needs R/T wound healing as evidenced by pt w/ stage 3 sacral and R hip wounds, refer to WC eval. PO DIET RECOMMENDATIONS: [place]/ Regular diet w/ <50% po intake (texture per [employer]) ADDITIONAL RECOMMENDATIONS: * Calibrated bedscale wt for accurate CBW * Wound healing: add MVI w/ min 1 tab QD, Vit C 500mg BID, [place] 1pkt BID * Add Glucerna 1 tetra harper TID * Lytes daily, replete as needed ( Mg 1.6) . Sher Younger Apr 14, 2018 11:55
[2018-04-14 12:00] VITALS: BP 116/60
--- NOTE | 2018-04-14 12:19 | Internal Med Progress Note ---
Subjective Date of Service: Apr 14, 2018 Physician Name Aquilino Matthews Attending Physician Carlos Alberto Berkowitz MD Current Medications Medications (Trade) Dose Ordered Sig/Yi Route PRN Reason Start Time Stop Time Status Last Admin Dose Admin Acetaminophen (Tylenol) 650 mg Q6H PRN ORAL Mild Pain/Temp > 100.5 04/02/18 17:15 05/02/18 17:14 04/11/18 08:31 Acetaminophen/ Hydrocodone Bitart ([place] 5/325) 1 tab Q6H PRN ORAL PAIN 4-10 04/10/18 11:30 04/17/18 11:29 04/14/18 04:03 Albuterol/ Ipratropium (Albuterol/ Ipratropium) 3 ml Q4H PRN HHN Shortness of Breath 04/10/18 09:00 04/15/18 08:59 Atenolol (Tenormin) 50 mg Q12HR ORAL 04/02/18 21:00 05/02/18 20:59 04/14/18 08:57 Atorvastatin Calcium (Lipitor) 20 mg BEDTIME ORAL 04/03/18 21:00 05/03/18 20:59 04/13/18 21:48 Clonidine HCl (Catapres Tab) 0.1 mg EVERY 8 HOURS ORAL 04/02/18 22:00 05/02/18 21:59 04/13/18 13:01 Dextrose (Dextrose 50%) 25 ml Q30M PRN IV bs 60-69 04/06/18 15:30 05/06/18 15:29 Dicyclomine HCl (Bentyl) 10 mg QID ORAL 04/02/18 18:00 05/02/18 17:59 04/14/18 08:55 Haloperidol Lactate (Haldol) 5 mg Q6H PRN IM Agitation 04/05/18 10:45 05/05/18 10:44 Lorazepam (Ativan) 2 mg Q6H PRN ORAL For Anxiety 04/14/18 11:45 04/21/18 11:44 Losartan Potassium (Cozaar) 50 mg DAILY ORAL 04/06/18 09:00 05/03/18 08:59 04/14/18 08:56 Metformin HCl (Glucophage) 500 mg BID ORAL 04/03/18 09:00 05/03/18 08:59 04/14/18 08:56 Mirtazapine (Remeron) 15 mg BEDTIME ORAL 04/13/18 21:00 05/13/18 20:59 04/13/18 21:48 Phosphorus (Phospha 250 Neutral) 250 mg THREE TIMES A DAY ORAL 04/10/18 09:00 05/10/18 08:59 04/14/18 08:55 Potassium Chloride (K-Dur) 10 meq DAILY ORAL 04/03/18 09:00 05/03/18 08:59 04/14/18 08:56 Sitagliptin Phosphate (Januvia) 50 mg ACBREAKFAST ORAL 04/03/18 06:30 05/03/18 06:29 04/13/18 06:00 Sorbitol (Sorbitol) 45 ml QHS ORAL 04/08/18 21:00 05/08/18 20:59 04/11/18 20:15 Vitamin D (Vitamin D) 5,000 intlu DAILY ORAL 04/03/18 09:00 05/03/18 08:59 04/14/18 08:55 Allergies: Coded Allergies: No Known Allergies (Unverified , 08/10/13) ROS Limited/Unobtainable: No Constitutional: Reports: no symptoms HEENT: Reports: no symptoms Cardiovascular: Reports: no symptoms Respiratory: Reports: no symptoms Gastrointestinal/Abdominal: Reports: no symptoms Genitourinary: Reports: no symptoms Neurologic/Psychiatric: Reports: no symptoms Subjective 82 YO F admitted with generalized weakness. Cover for Int Med-Dr Berkowitz. S/P right hip total arthroplasty 04/06/18. S/P colonoscopy 04/06/18. Await SNF vs [facility] re[facility] Objective Last Vital Signs Date Time Temp Pulse Resp B/P (MAP) Pulse Ox O2 Delivery O2 Flow Rate FiO2 04/14/18 09:00 Room Air Room Air 04/14/18 08:57 78 143/64 04/14/18 08:00 98.7 18 99 04/13/18 19:44 21 04/10/18 21:00 2.0 2.0 Laboratory Tests Test 04/14/18 05:00 White Blood Count 9.3 K/UL (4.8-10.8) Red Blood Count 3.40 M/UL (4.20-5.40) L Hemoglobin 9.1 G/DL (12.0-16.0) L Hematocrit 28.8 % (37.0-47.0) L Mean Corpuscular Volume 85 FL (80-99) Mean Corpuscular Hemoglobin 26.7 PG (27.0-31.0) L Mean Corpuscular Hemoglobin Concent 31.5 G/DL (32.0-36.0) L Red Cell Distribution Width 16.4 % (11.6-14.8) H Platelet Count 339 K/UL (150-450) Mean Platelet Volume 7.1 FL (6.5-10.1) Neutrophils (%) (Auto) 82.9 % (45.0-75.0) H Lymphocytes (%) (Auto) 10.6 % (20.0-45.0) L Monocytes (%) (Auto) 5.8 % (1.0-10.0) Eosinophils (%) (Auto) 0.4 % (0.0-3.0) Basophils (%) (Auto) 0.2 % (0.0-2.0) Sodium Level 142 MMOL/L (136-145) Potassium Level 3.8 MMOL/L (3.5-5.1) Chloride Level 109 MMOL/L (98-107) H Carbon Dioxide Level 24 MMOL/L (21-32) Anion Gap 9 mmol/L (5-15) Blood Urea Nitrogen 11 mg/dL (7-18) Creatinine 0.7 MG/DL (0.55-1.30) Estimat Glomerular Filtration Rate mL/min (>60) Glucose Level 125 MG/DL (74-106) H Calcium Level 8.3 MG/DL (8.5-10.1) L Intake and Output 04/13/18 04/14/18 18:59 06:59 Intake Total 1061 ml 220 ml Balance 1061 ml 220 ml Intake Oral 236 ml 220 ml IV Total 825 ml # Voids 1 4 Objective General Appearance: WD/WN, mild distress, agitated EENT: PERRL/EOMI, normal ENT inspection Neck: non-tender, normal alignment, supple, normal inspection Cardiovascular: normal peripheral pulses, normal rate, regular rhythm, no gallop/murmur, no JVD Respiratory/Chest: chest wall non-tender, lungs clear, normal breath sounds, no accessory muscle use, respiratory distress Abdomen: normal bowel sounds, non tender, soft, no organomegaly, no mass Extremities: normal range of motion 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 (8) Rectal bleed Assessment & Plan: S/P colonoscopy 04/06/18=ulcerated hemorrhoid. See GI note. (9) Severe anemia Assessment & Plan: Due to rectal bleed. S/P transfusion 2 units packed RBC and 1 unit PRBC 04/09/18. Assessment/Plan Discharge planning: post acute care vs SNF vs acute rehab Aquilino Matthews MD Apr 14, 2018 12:19
--- NOTE | 2018-04-14 12:54 | Pulmonology Progress Note ---
Assessment/Plan Problems: (1) Hip dislocation, right (2) Sacral decubitus ulcer, stage III (3) Protein-calorie malnutrition, severe (4) Psychosis (5) CAD (coronary artery disease) (6) Pulmonary hypertension (7) Aortic stenosis (8) Pacemaker (9) Diabetes mellitus, type II (10) HTN (hypertension) (11) Alzheimer's dementia Assessment/Plan still confused check h/h and Pt, ptt in symptomatic treatment f/u ortho recommendations wound care consult nutrition evaluation social service consult check electrolytes dvt prophylaxis Subjective ROS Limited/Unobtainable: No Constitutional: Reports: no symptoms HEENT: Repors: no symptoms Respiratory: Reports: no symptoms Allergies: Coded Allergies: No Known Allergies (Unverified , 08/10/13) Objective Last 24 Hour Vital Signs Date Time Temp Pulse Resp B/P (MAP) Pulse Ox O2 Delivery O2 Flow Rate FiO2 04/14/18 12:00 96.1 64 16 116/60 (78) 100 04/14/18 09:00 Room Air Room Air 04/14/18 08:57 78 143/64 04/14/18 08:56 143/64 04/14/18 08:00 98.7 78 18 143/64 (90) 99 04/14/18 04:33 98.1 04/14/18 04:00 98.1 78 20 139/67 (91) 96 04/14/18 00:00 97.0 75 20 141/68 (92) 99 04/13/18 21:48 67 128/59 04/13/18 21:09 128/59 04/13/18 21:00 Room Air Room Air 04/13/18 20:00 98.0 67 20 128/59 (82) 97 04/13/18 19:44 68 16 Room Air 21 04/13/18 16:00 97.9 66 16 117/57 (77) 98 04/13/18 13:01 116/60 Intake and Output 04/13/18 04/14/18 19:00 07:00 Intake Total 1061 ml 220 ml Balance 1061 ml 220 ml Intake Oral 236 ml 220 ml IV Total 825 ml # Voids 1 4 General Appearance: WD/WN HEENT: normocephalic, atraumatic Respiratory/Chest: chest wall non-tender, lungs clear Breasts: no masses Cardiovascular: normal peripheral pulses Skin: no rash Laboratory Tests 04/14/18 05:00: White Blood Count 9.3, Red Blood Count 3.40L, Hemoglobin 9.1L, Hematocrit 28.8L , Mean Corpuscular Volume 85, Mean Corpuscular Hemoglobin 26.7L, Mean Corpuscular Hemoglobin Concent 31.5L, Red Cell Distribution Width 16.4H, Platelet Count 339, Mean Platelet Volume 7.1, Neutrophils (%) (Auto) 82.9H, Lymphocytes (%) (Auto) 10.6L, Monocytes (%) (Auto) 5.8, Eosinophils (%) (Auto) 0.4, Basophils (%) (Auto) 0.2, Sodium Level 142, Potassium Level 3.8, Chloride Level 109H, Carbon Dioxide Level 24, Anion Gap 9, Blood Urea Nitrogen 11, Creatinine 0.7, Estimat Glomerular Filtration Rate , Glucose Level 125H, Calcium Level 8.3L Current Medications Medications (Trade) Dose Ordered Sig/Yi Route PRN Reason Start Time Stop Time Status Last Admin Dose Admin Acetaminophen (Tylenol) 650 mg Q6H PRN ORAL Mild Pain/Temp > 100.5 04/02/18 17:15 05/02/18 17:14 04/11/18 08:31 Acetaminophen/ Hydrocodone Bitart ([place] 5/325) 1 tab Q6H PRN ORAL PAIN 4-10 04/10/18 11:30 04/17/18 11:29 04/14/18 04:03 Albuterol/ Ipratropium (Albuterol/ Ipratropium) 3 ml Q4H PRN HHN Shortness of Breath 04/10/18 09:00 04/15/18 08:59 Atenolol (Tenormin) 50 mg Q12HR ORAL 04/02/18 21:00 05/02/18 20:59 04/14/18 08:57 Atorvastatin Calcium (Lipitor) 20 mg BEDTIME ORAL 04/03/18 21:00 05/03/18 20:59 04/13/18 21:48 Clonidine HCl (Catapres Tab) 0.1 mg EVERY 8 HOURS ORAL 04/02/18 22:00 05/02/18 21:59 04/13/18 13:01 Dextrose (Dextrose 50%) 25 ml Q30M PRN IV bs 60-69 04/06/18 15:30 12/20/18 15:29 Dicyclomine HCl (Bentyl) 10 mg QID ORAL 04/02/18 18:00 05/02/18 17:59 04/14/18 12:36 Haloperidol Lactate (Haldol) 5 mg Q6H PRN IM Agitation 04/05/18 10:45 05/05/18 10:44 Lorazepam (Ativan) 2 mg Q6H PRN ORAL For Anxiety 04/14/18 11:45 04/21/18 11:44 Losartan Potassium (Cozaar) 50 mg DAILY ORAL 04/06/18 09:00 05/03/18 08:59 04/14/18 08:56 Metformin HCl (Glucophage) 500 mg BID ORAL 04/03/18 09:00 05/03/18 08:59 04/14/18 08:56 Mirtazapine (Remeron) 15 mg BEDTIME ORAL 04/13/18 21:00 05/13/18 20:59 04/13/18 21:48 Phosphorus (Phospha 250 Neutral) 250 mg THREE TIMES A DAY ORAL 04/10/18 09:00 05/10/18 08:59 04/14/18 12:35 Potassium Chloride (K-Dur) 10 meq DAILY ORAL 04/03/18 09:00 05/03/18 08:59 04/14/18 08:56 Sitagliptin Phosphate (Januvia) 50 mg ACBREAKFAST ORAL 04/03/18 06:30 05/03/18 06:29 04/13/18 06:00 Sorbitol (Sorbitol) 45 ml QHS ORAL 04/08/18 21:00 05/08/18 20:59 04/11/18 20:15 Vitamin D (Vitamin D) 5,000 intlu DAILY ORAL 04/03/18 09:00 05/03/18 08:59 04/14/18 08:55 Rod Mancera MD Apr 14, 2018 12:54
[2018-04-14 16:00] VITALS: BP 138/67
--- NOTE | 2018-04-14 20:45 | General Progress Note ---
Assessment/Plan Assessment/Plan Assessment - constipation - on sorbitol - rectal bleeding due to ulcerated hemorrhoids - Anemia - agitation/OBS - dislocated hip - s/p arthroplasty conversion Recommendations - push po - Monitor H&H - transfuse PRN - Ortho f/u Subjective Allergies: Coded Allergies: No Known Allergies (Unverified , 08/10/13) Subjective no events no abdominal issues (+) BM more calm for d/c today Objective Last 24 Hour Vital Signs Date Time Temp Pulse Resp B/P (MAP) Pulse Ox O2 Delivery O2 Flow Rate FiO2 04/14/18 16:00 99.5 80 18 138/67 (90) 98 04/14/18 13:35 96.1 04/14/18 13:05 116/60 04/14/18 12:00 96.1 64 16 116/60 (78) 100 04/14/18 09:00 Room Air Room Air 04/14/18 08:57 78 143/64 04/14/18 08:56 143/64 04/14/18 08:00 98.7 78 18 143/64 (90) 99 04/14/18 04:00 98.1 78 20 139/67 (91) 96 04/14/18 00:00 97.0 75 20 141/68 (92) 99 04/13/18 21:48 67 128/59 04/13/18 21:09 128/59 04/13/18 21:00 Room Air Room Air Intake and Output 04/13/18 04/14/18 19:00 07:00 Intake Total 1061 ml 220 ml Balance 1061 ml 220 ml Intake Oral 236 ml 220 ml IV Total 825 ml # Voids 1 4 Laboratory Tests 04/14/18 05:00: White Blood Count 9.3, Red Blood Count 3.40L, Hemoglobin 9.1L, Hematocrit 28.8L , Mean Corpuscular Volume 85, Mean Corpuscular Hemoglobin 26.7L, Mean Corpuscular Hemoglobin Concent 31.5L, Red Cell Distribution Width 16.4H, Platelet Count 339, Mean Platelet Volume 7.1, Neutrophils (%) (Auto) 82.9H, Lymphocytes (%) (Auto) 10.6L, Monocytes (%) (Auto) 5.8, Eosinophils (%) (Auto) 0.4, Basophils (%) (Auto) 0.2, Sodium Level 142, Potassium Level 3.8, Chloride Level 109H, Carbon Dioxide Level 24, Anion Gap 9, Blood Urea Nitrogen 11, Creatinine 0.7, Estimat Glomerular Filtration Rate , Glucose Level 125H, Calcium Level 8.3L Height (Feet): 5 Height (Inches): 5.00 Weight (Pounds): 148 Objective WDWN NCAT supple CTA RRR abd soft no edema Thalia Grant MD Apr 14, 2018 20:45
--- NOTE | 2018-04-14 21:00 | Consultation ---
DATE OF CONSULTATION: PHYSICAL MEDICINE AND REHABILITATION CONSULTATION DATE OF SURGERY: 04/06/2018. CONSULTING PHYSICIAN: Robert Koehler M.D. REQUESTING PHYSICIANS: 1. Carlos Alberto Berkowitz M.D. 2. Aquilino Matthews M.D. PSYCHIATRIST: Lena Bob M.D. ORTHOPEDIC SURGEON: Shen Lopez M.D. SURGEON: Sher Younger M.D. SOFTWARE MAINTENANCE ENGINEER: Thalia Grant M.D. KITCHEN LEAD: Rod Mancera M.D. CHIEF COMPLAINT: Functional impairment, difficulty with ambulation and activity of daily living, and cognitive and memory impairment in a patient with complicated right hip fracture, multiple dislocations, now status post total hip arthroplasty and difficulty with swallowing. HISTORY OF PRESENT ILLNESS: The patient is an 82-year-old Stateless female who was originally admitted to [facility] on 02/16/2018, status post fall with right hip fracture. At that time, the patient underwent open reduction and internal fixation of the right hip displaced femoral neck fracture and then underwent right hip hemiarthroplasty on 02/18/2018. Apparently, the patient had multiple ulcers, which were seen by a surgeon and wound care team. The patient was eventually discharged home. However, she was readmitted to the hospital on 03/02/2018 due to right hip dislocation. This was reduced by orthopedic surgeon and the patient was discharged home again on 04/05/2018. The patient was readmitted to the hospital on 04/02/2018 with hip dislocation and significant functional impairment, also with worsening of the pressure ulcers, was seen and followed by multiple consultants as above. Head CT reported chronic atrophy. Chest x-ray reported with bilateral pleural effusion and cardiomegaly. Repeat of hip x-ray reported with superior dislocation of right femoral hemiarthroplasty. The patient was taken to operation room by Dr. Shen Lopez and underwent total hip replacement on 04/06/2018. At this time, the patient has been followed by multiple consultants including psychiatrist. She had a drop on her hemoglobin and hematocrit to as low as 6.6 on 04/07/2018, and she received two packs of packed RBC on 2 occasions of 04/07/2018 and 04/09/2018. The patient had some rectal bleed, which underwent colonoscopy by adult school counselor on 04/06/2018, reported with ulcerated hemorrhoid. The patient also closely followed up by psychiatrist with diagnoses of Alzheimer disease, dementia, and unspecified psychosis. I was asked today to evaluate the patient for rehabilitation. The patient has memory and cognitive impairment and severe functional impairment and multiple ulcers, which were seen and followed by a surgeon and customs compliance specialist. Ejection fraction per echocardiogram on 02/18/2018 reported 35%. PAST MEDICAL AND SURGICAL HISTORY: 1. Aortic stenosis. 2. Alzheimer dementia. 3. Pressure ulcer. 4. Sick sinus syndrome with pacemaker. 5. Hypertension. 6. Coronary artery disease. 7. DVT of the left axillary vein. 8. Diabetes mellitus. 9. Coronary artery bypass graft in 2017 and pacemaker placement in 2017. ALLERGIES: No known drug allergy. MEDICATIONS: Ativan p.r.n., Remeron 15 mg at bedtime, [place] p.r.n., albuterol inhaler every 4 hours, sorbitol 45 mL at bedtime, Cozaar 50 mg daily, Haldol p.r.n., Lipitor 20 mg daily. K-Dur 10 mEq daily, vitamin D 5000 units p.o. daily, Glucophage 500 mg b.i.d., Januvia 50 mg daily, clonidine q.8 h. 0.1 mg, atenolol 50 mg b.i.d., Bentyl 10 mg q.i.d, and Tylenol p.r.n. FAMILY AND SOCIAL HISTORY: This patient was at home until February, which she had a hip fracture and after that was in snf for few days, but due to the dislocation of the hip again admitted to the hospital. Apparently, on her previous admission, she was able to ambulate up to 30 feet with front wheeled walker. No history of tobacco, alcohol, or illicit drugs reported. The patient lives with her and family are supporting willing to take care of her at home. Current level of function requires moderate assist on rolling and [id number] and moderate to maximum assist [id number] and [id number] transfer. Family history is unclear. Family are willing to take her back home to her condominium with 4 steps. REVIEW OF SYSTEMS: Difficult to assess due to patient's cognitive and memory status. CONSTITUTIONAL: No chills. No fever. EYES: No pain. EAR, NOSE, AND THROAT: The patient with dysphagia. CARDIOVASCULAR: No chest pain. PULMONARY: The patient with chest x-ray reports of bilateral pleural effusion. No short of breath reported. GASTROINTESTINAL: With ulcerative hemorrhoid and episode of rectal bleed. GENITOURINARY: With Harris catheter. MUSCULOSKELETAL: Right hip fracture and multiple dislocations, now status post total hip arthroplasty. INTEGUMENTARY: Multiple ulcers. NEUROLOGIC: The patient with dementia, Alzheimer's, and weakness. PHYSICAL EXAMINATION: VITAL SIGNS: Blood pressure 130/60, respiratory rate 18 per minute, heart rate 80 per minute, temperature 99 degrees Fahrenheit, and O2 saturation 98%. Height is 165 cm, weight is 67 kg, and body mass index 25. GENERAL: No acute distress. HEENT: No facial droop. NECK: Supple with no lymphadenopathy. HEART: Regular. LUNGS: Clear to auscultation bilaterally. ABDOMEN: Soft, nontender, and nondistended. EXTREMITIES: Right knee postoperative with dressing. SKIN: Multiple ulcers including left heel, left ankle, and sacral. NEUROLOGIC: The patient is awake. Follows simple commands. Not oriented to place. Moves bilateral upper and left lower limb with weakness. The right lower limb movement is very limited, especially at the proximal area, post hip fracture and surgery. DATA: WBC 9.3, hemoglobin 9.1, platelets 339,000. Sodium 142, potassium 3.8, BUN 11, creatinine 0.7, and glucose 125. Gram Stain of ulcers positive for Staphylococcus aureus. ASSESSMENT: An 82-year-old Stateless female with 1. Status post fall on 02/16/2018, causing right neck fracture, status post right hemiarthroplasty on 02/18/[address] Shen Lopez, status post multiple dislocations and reduction, which was not successful and now status post conversion of previous hip surgery to total hip arthroplasty on 04/06/2018. 2. Weightbearing as tolerated per orthopedic surgeon. 3. Multiple pressure ulcers. 4. Limb pain. 5. Debility and functional decline. 6. Gait abnormality. 7. Ulcerative hemorrhoid and rectal bleed. 8. Diabetes mellitus. 9. Hypertension. 10. Sick sinus syndrome with pacemaker in place. 11. Ejection fraction of 35%. 12. Aortic stenosis. 13. Severe anemia, required 2 times blood transfusion on 04/07/2018 and 04/09/2018. 14. Dysphagia. RECOMMENDATION: This patient requires physical therapy, occupational therapy, speech therapy, and 24 hours nursing care. Physical therapy for range of motion, transfer training, endurance, balance, and ambulation training with appropriate assistive device. Occupational therapy for activities of daily living, equipment, function and transfer evaluation and training, and upper extremity range of motion and strengthening exercise. Speech therapy for evaluation of retraining on status of her cognition, memory, communication and swallowing and aspiration precaution and language and speech retraining. Nursing for evaluation of her bowel and bladder, medication regimen, skin care, prevention of pressure ulcer, and patient and family education. Wound care manager follow up closely on prevention of further pressure ulcer and management of current ulcer. Continue medical and surgical management per Medicine. Acute inpatient rehabilitation is warranted when the patient is medically and surgically stable. Thank you for your consultation. Robert Koehler M.D. DR: HENRY JOB#: [id number] CC:
--- NOTE | 2018-04-15 16:06 | Discharge Summary ---
Discharge Summary Discharge Summary _ DATE OF ADMISSION: 04/02/2018 DATE OF DISCHARGE: 04/14/2018 CONSULTANTS: Dr. Robert Bob BRIEF HOSPITAL COURSE: Patient is an 82-year-old Honduran-speaking female, who presented with chief complaint of generalized weakness. Patient was admitted to [facility] on 02/18/2018 and underwent right hip hemiarthroplasty due to right hip displaced femoral neck fracture. She presented with a right dislocated hemiarthroplasty, and on 03/01/2018, underwent open reduction of right hemiarthroplasty dislocation. She was subsequently discharged to a rehabilitation center and was subsequently discharged home with home health. She was noted to have increasing weakness home. She was not able to ambulate. She was then taken to [place] emergency room. On evaluation at ED, vital signs were stable. Blood work did not show any leukocytosis. Hemoglobin was 9, hematocrit 30. Troponin was negative. EKG showed normal sinus rhythm with no acute changes. CT of the head did not show any acute findings. Chest x-ray showed developing bilateral pleural effusions. She was admitted for evaluation of failure to thrive and generalized weakness. She was continued on her home medications. Patient is status post pacemaker implantation. She was given atenolol and Cozaar. She was continued on simvastatin. Blood glucose was monitored. Patient has anxiety and depression and had been agitated. Psychiatrist was consulted. She was assessed to lack capacity to make medical decisions. She was placed on trazodone and Klonopin. Patient was agitated she was given lorazepam and Haldol. She was noted to have stage III sacral decubitus ulcer on admission. Surgery was called to evaluate and assist with care and management. She was given wound care. She was placed on air mattress. Advised nutritional support to optimize wound healing. She was noted to have a bowel movement with blood. GI was consulted. She was placed on clear liquid diet. CBC was monitored. There was a drop in patient's hemoglobin. She required blood transfusion. She complained on pain on the right hip. X-ray done showed superior dislocation of the right femoral hemiarthroplasty prostheses. Dr. Lopez was consulted. Patient had been noncompliant and had dislocated the hip. On 2017, she underwent conversion of previous hip surgery to total hip arthroplasty , complicated secondary to chronic dislocation. She also underwent flexible sigmoidoscopy, originally planned as colonoscopy but procedure change to sigmoidoscopy due to poor colonic preparation. Findings showed ulcerated internal hemorrhoids, there was no evidence of active bleed. Postoperatively, she was given pain control. She was given physical therapy. There was again drop in hemoglobin on 04/09/2018, she received another 1 unit packed RBC blood transfusion. She was given IV iron. Dr. Koehler was consulted. Patient was recommended physical therapy, occupational therapy, speech therapy and 24-hour nursing care. Acute inpatient rehabilitation was warranted. She was eventually discharged to [facility] acute rehabilitation. FINAL DIAGNOSES: Recurrent hip locations status post right total hip arthroplasty on 04/06/2018 Rectal bleeding secondary to ulcerated hemorrhoids, status post sigmoidoscopy on 04/06/2018 Severe anemia requiring blood transfusion Alzheimer's dementia Pulmonary hypertension Aortic stenosis Sick sinus syndrome Eppert tension Diabetes mellitus type 2 Constipation Agitation Sacral decubitus ulcer, stage III, present on admission Protein calorie malnutrition, severe Psychosis Coronary artery disease DISPOSITION: Patient was discharged to Acute Rehab. DISCHARGE MEDICATIONS: Refer to Discharge Medication List. I have been assigned to dictate discharge summary on this account, and I was not involved in the patient's management. Lacie Schulte NP Apr 15, 2018 16:06
== END 2018-04-14 18:30 | disposition short-term general hospital (02) | DRG 466 ==
LOC: EDUNIT# 12:26 → EDBD 12:26 → EMR 13:15 → 4E 14:57 → ENRESERVDT 15:05 → ENRESERVTM 15:05 → EDBEDREQ 15:07
PROC: 0DJD8ZZ Inspection of Lower Intestinal Tract, Via Natural or Artificial Opening Endoscopic (ICD-10-PCS; 2018-04-06)
PROC: 0SR90JZ Replacement of Right Hip Joint with Synthetic Substitute, Open Approach (ICD-10-PCS; principal; 2018-04-06 08:04)
PROC: 0SB90ZZ Excision of Right Hip Joint, Open Approach (ICD-10-PCS; principal; 2018-04-06 08:04)
PROC: 0SP90JZ Removal of Synthetic Substitute from Right Hip Joint, Open Approach (ICD-10-PCS; principal; 2018-04-06 08:04)
DX: T84.020A Dislocation of internal right hip prosthesis, initial encounter (principal); E43 Unspecified severe protein-calorie malnutrition; L89.153 Pressure ulcer of sacral region, stage 3; G93.41 Metabolic encephalopathy; R71.0 Precipitous drop in hematocrit; Z68.24 Body mass index [BMI] 24.0-24.9, adult; E11.9 Type 2 diabetes mellitus without complications; I10 Essential (primary) hypertension; Z95.0 Presence of cardiac pacemaker; E78.00 Pure hypercholesterolemia, unspecified; I25.10 Atherosclerotic heart disease of native coronary artery without angina pectoris; I25.2 Old myocardial infarction; I35.0 Nonrheumatic aortic (valve) stenosis; I27.20 Pulmonary hypertension, unspecified; G30.9 Alzheimer's disease, unspecified; F02.80 Dementia in other diseases classified elsewhere, unspecified severity, without behavioral disturbance, psychotic disturbance, mood disturbance, and anxiety; R62.7 Adult failure to thrive; F29 Unspecified psychosis not due to a substance or known physiological condition; K59.00 Constipation, unspecified; K64.8 Other hemorrhoids; R13.10 Dysphagia, unspecified
CPT/HCPCS: 36415; 70450; 71045; 72170; 80048; 80053; 81003; 82378; 82550; 82553; 82728; 82962; 83540; 83550; 83605; 83735; 84100; 84484; 85007; 85025; 85610; 85651; 85730; 86140; 86850; 86900; 86901; 86920; 87040; 87070; 87075; 87181; 87205; 93005; 94003; 94150; 94664; 94760; 96361; 96374; 99285; C9399; J2250; J8499

== ENCOUNTER 2018-05-12 18:00 | Emergency (ER) | payer MEDICARE, OTHER ==
[~2018-05-12] VITALS: Ht 170.2 cm; Wt 59.0 kg
[2018-05-12 18:40] VITALS: BP 125/76
[2018-05-12] MEDS ORDERED: ELIQUIS5 MG PO (19:11)
[2018-05-12] MEDS ORDERED: MIRTAZAPINE15 M3 ORAL (19:11)
[2018-05-12] MEDS ORDERED: LORAZEPAM2 MG ORAL (19:11)
[2018-05-12] MEDS ORDERED: METFORMIN HCL500 M1 ORAL (19:11)
[2018-05-12] MEDS ORDERED: HALOPERIDOL0.5 MG IM (19:11)
[2018-05-12] MEDS ORDERED: VANCOCIN250 MG IV (19:11)
[2018-05-12] MEDS ORDERED: ZINC SULFATE220 M1 ORAL (19:11)
[2018-05-12] MEDS ORDERED: VITAMIN D1000 UNI1 ORAL (19:11)
[2018-05-12] MEDS ORDERED: ASCORBIC ACID500 MG ORAL (19:11)
[2018-05-12] MEDS ORDERED: ATORVASTATIN CA20 MG ORAL (19:11)
--- NOTE | 2018-05-12 19:22 | Emergency Room Report ---
History of Present Illness General Chief Complaint: General Complaint Source: EMS Present Illness HPI Patient was sent to the emergency room as she has had no IV access Apparently recently pulled out her PICC line Which was being used to treat endocarditis Patient herself has severe Alzheimer's and dementia History is obtained from the nursing facility notes and paramedics patient herself cannot provide any appropriate input there was no reports of any vomiting or diarrhea No documented recent fevers Allergies: Coded Allergies: No Known Allergies (Unverified , 08/10/13) Patient History Limited by: medical condition Past Medical History: see triage record Pertinent Family History: none Reviewed Nursing Documentation: PMH: Agreed; PSxH: Agreed Nursing Documentation-PMH Past Medical History: No History, Except For Hx Cardiac Problems: Yes - HTN, PACEMAKER, 3 BYPASS SUGERIES Hx Hypertension: Yes Hx Pacemaker: Yes Hx Asthma: Yes Hx Diabetes: Yes Hx Cancer: No - UNKNOWN Hx Gastrointestinal Problems: No - UNKNOWN, PT IS CONFUSED Hx Neurological Problems: Yes - DEMENTIA, ALHZEIMERS, SCHIZOPHRENIA Hx Dementia: Yes Hx Memory Loss: Yes Review of Systems All Other Systems: limited - Other than the ones mentioned in the history of present illness all others are reviewed however they do stay limited due to the patient's mental status Physical Exam Vital Signs Date Time Temp Pulse Resp B/P (MAP) Pulse Ox O2 Delivery O2 Flow Rate FiO2 05/12/18 17:58 98.2 85 17 125/76 98 Room Air Sp02 EP Interpretation: reviewed, normal General Appearance: no apparent distress Head: normocephalic, atraumatic Eyes: bilateral eye PERRL, bilateral eye EOMI ENT: normal pharynx Neck: supple Respiratory: lungs clear Cardiovascular #1: regular rate, rhythm Gastrointestinal: non tender, soft Musculoskeletal: other - No obvious focal deficit Neurologic: responsive - To verbal and physical stimuli Skin: normal color, no rash Lymphatic: no adenopathy Medical Decision Making Diagnostic Impression: Primary Impression: Alzheimer's dementia Additional Impression: Endocarditis ER Course Given the patient's history and presentation Patient's primary physician at the nursing facility is contacted He will accept a peripheral line at this time Patient did have a peripheral line placed And is able to have continued medications at the nursing facility Disposition for further outpatient care Rhythm Strip Diag. Results EP Interpretation: yes Rate: 66 Rhythm: NSR, no PVC's, no ectopy Last Vital Signs Date Time Temp Pulse Resp B/P (MAP) Pulse Ox O2 Delivery O2 Flow Rate FiO2 05/12/18 18:40 98.2 76 17 125/76 98 Room Air Status: improved Disposition: XFER SNF Condition: Improved Additional Instructions: Please follow-up with primary physician next one day, patient will require likely or permanent IV access however the peripheral line can be used safely for the next 2-3 days Albino Santos DO May 12, 2018 19:22
[2018-05-12 19:37] VITALS: BP 124/61
[2018-05-12 20:12] VITALS: BP 126/61
[2018-05-12 20:15] VITALS: BP 126/61
== END 2018-05-12 20:42 ==
LOC: EDBD 18:00 → EMR 19:45
DX: I38 Endocarditis, valve unspecified (principal); G30.9 Alzheimer's disease, unspecified; F02.80 Dementia in other diseases classified elsewhere, unspecified severity, without behavioral disturbance, psychotic disturbance, mood disturbance, and anxiety; I10 Essential (primary) hypertension; E11.9 Type 2 diabetes mellitus without complications; J45.909 Unspecified asthma, uncomplicated; F20.9 Schizophrenia, unspecified; Z95.0 Presence of cardiac pacemaker; Z95.1 Presence of aortocoronary bypass graft
CPT/HCPCS: 99282

== ENCOUNTER 2018-06-24 11:53 | Inpatient (IN) | payer MEDICARE, OTHER ==
[~2018-06-24] VITALS: Ht 165.1 cm; Wt 66.7 kg
[~2018-06-24 11:53] MED LIST changes: +ASCORBIC ACID500 MG ORAL; +ATORVASTATIN CA20 MG ORAL; +ELIQUIS5 MG PO; +HALOPERIDOL0.5 MG IM; +LORAZEPAM2 MG ORAL; +METFORMIN HCL500 M1 ORAL; +MIRTAZAPINE15 M3 ORAL; +VANCOCIN250 MG IV; +VITAMIN D1000 UNI1 ORAL; +ZINC SULFATE220 M1 ORAL
[2018-06-24] MEDS ORDERED: LORazepam Inj 2mg/ml 1ml IV ONE (12:00)
[2018-06-24 12:05] VITALS: BP 110/64
--- NOTE | 2018-06-24 12:05 | NUR ---
ED Nurse Note: pt brought in by BLS from [facility], c/o dehydration and evaluation. pt Ethiopian speaking, AA&ox0, gcs=13, confused, hx dementia, skin warm and dry, resp even and unlabored, on RA, 100% o2sat, -n/v/d, abd soft nontender, noted hx incision site on right hip. pt has skin tear on right lateral LE with dressing, no drainage, pressure ulcer on left heel and coccyx area. noted edema on left elbow area, ERMD notified. NSR on desk monitor, vss, will cont monitor. pt bed lowest position w/ siderail x2, will cont monitor.
[2018-06-24 12:43] LABS: ANION GAP 13 mmol/L (5-15); BLOOD UREA NITROGEN 47 mg/dL (7-18); CALCIUM 9.2 MG/DL (8.5-10.1); CARBON DIOXIDE 21 MMOL/L (21-32); CHLORIDE 111 MMOL/L (98-107); CREATININE 1.5 MG/DL (0.55-1.30); POTASSIUM 5.2 MMOL/L (3.5-5.1); SODIUM 145 MMOL/L (136-145)
[2018-06-24 12:58] LABS: ALANINE AMINOTRANSFERASE 85 U/L (12-78); ALBUMIN 2.1 G/DL (3.4-5.0); ALBUMIN/GLOBULIN RATIO 0.5 (1.0-2.7); ALKALINE PHOSPHATASE 133 U/L (46-116); ASPARTATE AMINO TRANSFERASE 204 U/L (15-37); CKMB 0.8 NG/ML (0.0-3.6); CREATINE KINASE 211 U/L (26-308)
[2018-06-24 13:00] LABS: HEMATOCRIT 36.4 % (37.0-47.0); HEMOGLOBIN 11.3 G/DL (12.0-16.0); MEAN CORPUSCULAR VOLUME 93 FL (80-99); PLATELET COUNT 124 K/UL (150-450); RED BLOOD COUNT 3.92 M/UL (4.20-5.40); RED CELL DISTRIBUTION WIDTH 16.9 % (11.6-14.8); WHITE BLOOD COUNT 14.6 K/UL (4.8-10.8)
[2018-06-24 13:01] LABS: BILIRUBIN,DIRECT 1.2 MG/DL (0.0-0.3)
[2018-06-24 13:05] VITALS: BP 120/62
--- NOTE | 2018-06-24 13:15 | NUR ---
ED Nurse Note: lactic reflex redraw sent.
--- NOTE | 2018-06-24 13:20 | Diagnostic Imaging Report ---
Indication: Chest pain Comparison: 04/02/2018 A single view chest radiograph was obtained. Findings: Lungs are clear. Cardiomegaly is present. Bilateral pacemakers noted. Bones are osteopenic. No pleural effusion identified. IMPRESSION: No acute disease
--- NOTE | 2018-06-24 13:25 | Consultation ---
History of Present Illness General Date patient seen: Jun 24, 2018 Chief Complaint: General Complaint Present Illness HPI 82 year old female with hx of dementia, HTN, pace-maker, pulmonary hypertension , DM, aortic stenosis, decubiti ulcers, right hip replacement brought in by paramedics with CC of less responsive and poor oral intake. She has multiple decubiti ulcers and was found to be azotemic. She is admitted for further work up. Allergies: Coded Allergies: No Known Allergies (Unverified , 08/10/13) Medication History Scheduled Ascorbic Acid* (Ascorbic Acid*), 500 MG ORAL DAILY, (Reported) Aspirin (Aspirin EC), 81 MG ORAL DAILY, (Reported) Atenolol* (Tenormin*), 50 MG ORAL BID, (Reported) Atorvastatin Calcium* (Atorvastatin Calcium*), 20 MG ORAL BEDTIME, (Reported) Cholecalciferol (Vitamin D3)* (Vitamin D*), 2,000 UNITS ORAL DAILY, (Reported) Clonazepam* (Klonopin*), 0.5 MG ORAL Q6H, (Reported) Clonidine Hcl* (Catapres*), 0.1 MG ORAL EVERY 8 HOURS, (Reported) Clopidogrel* (Clopidogrel*), 75 MG ORAL DAILY, (Reported) Dicyclomine Hcl* (Dicyclomine Hcl*), 10 MG PO QID Famotidine (Pepcid), 20 MG ORAL BEDTIME Furosemide* (Lasix*), 40 MG ORAL DAILY, (Reported) Losartan Potassium* (Losartan Potassium*), 25 MG ORAL DAILY, (Reported) Metformin Hcl* (Metformin Hcl*), 500 MG ORAL TWICE A DAY, (Reported) Mirtazapine* (Mirtazapine*), 15 MG ORAL BEDTIME, (Reported) Potassium Chloride (Potassium Chloride), 10 MEQ ORAL DAILY, (Reported) Rosuvastatin Calcium* (Crestor*), 10 MG ORAL DAILY, (Reported) Sitagliptin Phos/Metformin Hcl (Janumet Xr 50-1,000 Mg Tablet), 1 TAB ORAL DAILY , (Reported) Trazodone* (Trazodone*), 50 MG ORAL BEDTIME, (Reported) Vancomycin HCl (Vancocin HCl), 1,000 MG IV DAILY, (Reported) Vitamin D (Vitamin D3), 5,000 UNITS ORAL DAILY, (Reported) Zinc Sulfate (Zinc Sulfate*), 220 MG ORAL DAILY, (Reported) Scheduled PRN Haloperidol* (Haldol*), 5 MG IM EVERY 6 HOURS PRN for Agitation, (Reported) Hydrocodone Bit/Acetaminophen 5-325* ([place] 5-325*), 1 TAB ORAL Q6H PRN for For Pain Lorazepam* (Lorazepam*), 2 MG ORAL THREE TIMES A DAY PRN for For Anxiety, ( Reported) Miscellaneous Medications Apixaban (Eliquis), 5 MG PO, (Reported) Patient History Healthcare decision maker Resuscitation status Advanced Directive on File Past Medical/Surgical History Past Medical/Surgical History: (1) Diabetes mellitus, type II (2) Psychosis (3) CAD (coronary artery disease) (4) HTN (hypertension) (5) Pacemaker (6) Protein-calorie malnutrition, severe (7) Alzheimer's dementia (8) Sacral decubitus ulcer, stage III Review of Systems All Other Systems: negative except mentioned in HPI Physical Exam General Appearance: cachetic Lines, tubes and drains: peripheral HEENT: normocephalic Neck: non-tender, normal alignment Respiratory/Chest: chest wall non-tender, lungs clear Cardiovascular/Chest: normal peripheral pulses, regular rhythm Abdomen: normal bowel sounds, non tender Genitourinary/Rectal: normal genital exam Extremities: non-pitting Skin Exam: normal pigmentation Neurologic: resident buyer II-XII grossly normal Last 24 Hour Vital Signs Date Time Temp Pulse Resp B/P (MAP) Pulse Ox O2 Delivery O2 Flow Rate FiO2 06/24/18 11:54 99.5 68 20 100/64 98 Room Air Laboratory Tests Test 06/24/18 12:07 White Blood Count 14.6 K/UL (4.8-10.8) H Red Blood Count 3.92 M/UL (4.20-5.40) L Hemoglobin 11.3 G/DL (12.0-16.0) L Hematocrit 36.4 % (37.0-47.0) L Mean Corpuscular Volume 93 FL (80-99) Mean Corpuscular Hemoglobin 28.9 PG (27.0-31.0) Mean Corpuscular Hemoglobin Concent 31.2 G/DL (32.0-36.0) L Red Cell Distribution Width 16.9 % (11.6-14.8) H Platelet Count 124 K/UL (150-450) L Mean Platelet Volume 9.5 FL (6.5-10.1) Neutrophils (%) (Auto) % (45.0-75.0) Lymphocytes (%) (Auto) % (20.0-45.0) Monocytes (%) (Auto) % (1.0-10.0) Eosinophils (%) (Auto) % (0.0-3.0) Basophils (%) (Auto) % (0.0-2.0) Neutrophils % (Manual) Pending Lymphocytes % (Manual) Pending Platelet Estimate Pending Platelet Morphology Pending Sodium Level 145 MMOL/L (136-145) Potassium Level 5.2 MMOL/L (3.5-5.1) H Chloride Level 111 MMOL/L (98-107) H Carbon Dioxide Level 21 MMOL/L (21-32) Anion Gap 13 mmol/L (5-15) Blood Urea Nitrogen 47 mg/dL (7-18) H Creatinine 1.5 MG/DL (0.55-1.30) H Estimat Glomerular Filtration Rate mL/min (>60) Glucose Level 131 MG/DL (74-106) H Lactic Acid Level 3.70 mmol/L (0.4-2.0) H Calcium Level 9.2 MG/DL (8.5-10.1) Total Bilirubin 2.0 MG/DL (0.2-1.0) H Direct Bilirubin 1.2 MG/DL (0.0-0.3) H Aspartate Amino Transf (AST/SGOT) 204 U/L (15-37) H Alanine Aminotransferase (ALT/SGPT) 85 U/L (12-78) H Alkaline Phosphatase 133 U/L (46-116) H Total Creatine Kinase 211 U/L (26-308) Creatine Kinase MB 0.8 NG/ML (0.0-3.6) Creatine Kinase MB Relative Index 0.3 Troponin I 0.131 ng/mL (0.000-0.056) Total Protein 6.6 G/DL (6.4-8.2) Albumin 2.1 G/DL (3.4-5.0) L Globulin 4.5 g/dL Albumin/Globulin Ratio 0.5 (1.0-2.7) L Lipase 58 U/L (73-393) L Height (Feet): 5 Height (Inches): 6.00 Weight (Pounds): 150 Assessment/Plan Problem List: (1) Sepsis ICD Codes: A41.9 - Sepsis, unspecified organism SNOMED: 98182240 (2) ATN (acute tubular necrosis) ICD Codes: N17.0 - Acute kidney failure with tubular necrosis SNOMED: 69283598 (3) Pulmonary hypertension ICD Codes: I27.20 - Pulmonary hypertension, unspecified SNOMED: 14287298 (4) Pacemaker ICD Codes: Z95.0 - Presence of cardiac pacemaker SNOMED: 204897219 (5) HTN (hypertension) ICD Codes: I10 - Essential (primary) hypertension SNOMED: 82983799 (6) CAD (coronary artery disease) ICD Codes: I25.10 - Atherosclerotic heart disease of [place] coronary artery without angina pectoris SNOMED: 57915046 (7) Protein-calorie malnutrition, severe ICD Codes: E43 - Unspecified severe protein-calorie malnutrition SNOMED: 879153684 (8) Alzheimer's dementia ICD Codes: G30.9 - Alzheimer's disease, unspecified; F02.80 - Dementia in other diseases classified elsewhere without behavioral disturbance SNOMED: 58700536 Assessment/Plan mckeon cultures iv fluids sliding scale check electrolytes daily broad spectrum abx dvt prophylaxis insulin coverage. social service consult Rod Mancera MD Jun 24, 2018 13:25
[2018-06-24] MEDS ORDERED: Miralax 17gm pkt ORAL PRN (13:30)
[2018-06-24] MEDS ORDERED: Morphine Sulfate 2mg/ml Inj(IV/IM USE ONLY) IVP PRN (13:30)
[2018-06-24] MEDS ORDERED: Albuterol/Ipratropium 3ml neb HHN PRN (13:30)
[2018-06-24] MEDS ORDERED: clonazePAM 0.5mg tab ORAL PRN (13:30)
--- NOTE | 2018-06-24 13:30 | NUR ---
ED Nurse Note: unable to upload pictures due to computer failure, IT notified.
[2018-06-24] MEDS ORDERED: Dextrose 50% 25ml Syringe IV PRN (13:45)
--- NOTE | 2018-06-24 14:00 | NUR ---
ED Nurse Note: pt cleaned and changed, extra blanket provided for comfort.
[2018-06-24 14:05] VITALS: BP 126/68
--- NOTE | 2018-06-24 14:35 | Diagnostic Imaging Report ---
Indication: Pain Findings: 3 views of the left elbow were obtained. No acute fractures, malalignment, erosions or periostitis are identified. Soft tissues are unremarkable. Impression: No acute injury
--- NOTE | 2018-06-24 14:38 | Emergency Room Report ---
History of Present Illness General Chief Complaint: General Complaint Source: Patient, EMS Present Illness HPI Patient presents from nursing facility with reports of decreased oral intake General malaise Patient upon arrival is not verbal with staff History of present illness is significantly limited There was no reports of vomiting or diarrhea Unclear change in medications There was no reports of any rash Attempt is being made to contact nursing facility and obtain further history as well Allergies: Coded Allergies: No Known Allergies (Unverified , 08/10/13) Patient History Limited by: medical condition Past Medical History: see triage record Pertinent Family History: unable to obtain Now: No Reviewed Nursing Documentation: PMH: Agreed; PSxH: Agreed Nursing Documentation-PMH Past Medical History: No History, Except For Hx Cardiac Problems: Yes - HTN, PACEMAKER L SIDE, 3 BYPASS SUGERIES Hx Hypertension: Yes Hx Pacemaker: Yes Hx Asthma: Yes Hx Diabetes: Yes - TYPE 2 Hx Cancer: No - UNKNOWN Hx Gastrointestinal Problems: No - UNKNOWN, PT IS CONFUSED Hx Neurological Problems: Yes - DEMENTIA, ALHZEIMERS, SCHIZOPHRENIA Hx Dementia: Yes Hx Memory Loss: Yes Review of Systems All Other Systems: limited - Other than the ones mentioned in the history of present illness all others are reviewed however they do stay limited due to the patient's mental status Physical Exam Vital Signs Date Time Temp Pulse Resp B/P (MAP) Pulse Ox O2 Delivery O2 Flow Rate FiO2 06/24/18 11:54 99.5 68 20 100/64 98 Room Air Sp02 EP Interpretation: reviewed, normal General Appearance: mild distress - Appears agitated Head: normocephalic, atraumatic Eyes: bilateral eye PERRL, bilateral eye EOMI ENT: dry mucus membranes Neck: supple Respiratory: lungs clear, no retraction, no accessory muscle use Cardiovascular #1: regular rate, rhythm Gastrointestinal: non tender, soft Musculoskeletal: swelling - Left elbow area Neurologic: responsive - To physical and verbal stimuli Skin: other - As above along with decubitus ulcer lower back Lymphatic: no adenopathy Medical Decision Making Diagnostic Impression: Primary Impression: Dehydration Additional Impressions: Weakness Acute encephalopathy Leukocytosis ER Course Patient is a fairly complex patient with multiple differential to consideration including but not limited to cardiac cardiopulmonary and vascular emergencies Other intracranial, infectious pathology also entertained Patient's white blood cell count is elevated lactic acid is also elevated Patient is further hydrated However does not meet severe sepsis criteria Also consideration for fluid overload is made and patient has limited fluid intake There is no obvious source of infection an antibiotic for held until further inpatient consultation Labs Test 06/24/18 12:07 06/24/18 13:00 06/24/18 13:36 White Blood Count 14.6 K/UL (4.8-10.8) Red Blood Count 3.92 M/UL (4.20-5.40) Hemoglobin 11.3 G/DL (12.0-16.0) Hematocrit 36.4 % (37.0-47.0) Mean Corpuscular Volume 93 FL (80-99) Mean Corpuscular Hemoglobin 28.9 PG (27.0-31.0) Mean Corpuscular Hemoglobin Concent 31.2 G/DL (32.0-36.0) Red Cell Distribution Width 16.9 % (11.6-14.8) Platelet Count 124 K/UL (150-450) Mean Platelet Volume 9.5 FL (6.5-10.1) Neutrophils (%) (Auto) % (45.0-75.0) Lymphocytes (%) (Auto) % (20.0-45.0) Monocytes (%) (Auto) % (1.0-10.0) Eosinophils (%) (Auto) % (0.0-3.0) Basophils (%) (Auto) % (0.0-2.0) Differential Total Cells Counted 100 Neutrophils % (Manual) 84 % (45-75) Lymphocytes % (Manual) 4 % (20-45) Monocytes % (Manual) 2 % (1-10) Eosinophils % (Manual) 0 % (0-3) Basophils % (Manual) 0 % (0-2) Band Neutrophils 10 % (0-8) Platelet Estimate Decreased Platelet Morphology Normal Hypochromasia 1+ Anisocytosis 1+ Sodium Level 145 MMOL/L (136-145) Potassium Level 5.2 MMOL/L (3.5-5.1) Chloride Level 111 MMOL/L (98-107) Carbon Dioxide Level 21 MMOL/L (21-32) Anion Gap 13 mmol/L (5-15) Blood Urea Nitrogen 47 mg/dL (7-18) Creatinine 1.5 MG/DL (0.55-1.30) Estimat Glomerular Filtration Rate mL/min (>60) Glucose Level 131 MG/DL (74-106) Lactic Acid Level 3.70 mmol/L (0.4-2.0) 5.30 mmol/L (0.66-2.22) Uric Acid 5.7 MG/DL (2.6-7.2) Calcium Level 9.2 MG/DL (8.5-10.1) Total Bilirubin 2.0 MG/DL (0.2-1.0) Direct Bilirubin 1.2 MG/DL (0.0-0.3) Aspartate Amino Transf (AST/SGOT) 204 U/L (15-37) Alanine Aminotransferase (ALT/SGPT) 85 U/L (12-78) Alkaline Phosphatase 133 U/L (46-116) Total Creatine Kinase 211 U/L (26-308) Creatine Kinase MB 0.8 NG/ML (0.0-3.6) Creatine Kinase MB Relative Index 0.3 Troponin I 0.131 ng/mL (0.000-0.056) Total Protein 6.6 G/DL (6.4-8.2) Albumin 2.1 G/DL (3.4-5.0) Globulin 4.5 g/dL Albumin/Globulin Ratio 0.5 (1.0-2.7) Lipase 58 U/L (73-393) Urine Eosinophils None seen (NONE SEEN) Urine Random Sodium < 20 mmol/L (20-110) Urine Potassium Timed 61 mmol/L (12-62) Rhythm Strip Diag. Results EP Interpretation: yes Rate: 80 Rhythm: NSR, no PVC's, no ectopy Chest X-Ray Diagnostic Results Chest X-Ray Diagnostic Results : Chest X-Ray Ordered: Yes # of Views/Limited/Complete: 1 View Indication: Chest Pain EP Interpretation: Yes Interpretation: no consolidation, no effusion, no pneumothorax Impression: No acute disease Electronically Signed by: Albino Santos DO Other X-Ray Diagnostic Results Other X-Ray Diagnostic Results : X-Ray ordered: Left elbow # of Views/Limited Vs Complete: 3 View Indication: Pain EP Interpretation: Yes Interpretation: no dislocation, no soft tissue swelling, no fractures Impression: No acute disease Electronically Signed by: Albino Santos DO Last Vital Signs Date Time Temp Pulse Resp B/P (MAP) Pulse Ox O2 Delivery O2 Flow Rate FiO2 06/24/18 12:05 68 20 Room Air 2/7/19 12:05 99.4 110/64 100 Status: improved Disposition: ADMITTED INPATIENT Condition: Serious Referrals: Aquilino Matthews MD (PCP) Albino Santos DO Jun 24, 2018 14:38
[2018-06-24] MEDS ORDERED: Cefepime HCl 2 GM in D5W 110 ML IV ONE (16:00)
[2018-06-24 16:05] VITALS: BP 132/68
--- NOTE | 2018-06-24 16:26 | NUR ---
ED Nurse Note: report given to monica CM.
[2018-06-24] MEDS ORDERED: Vancomycin 1250mg/D5W 275ml IVPB ONE (17:00)
[2018-06-24 18:05] VITALS: BP 128/63
--- NOTE | 2018-06-24 19:35 | History & Physical ---
History and Physical History & Physicial Patient: NILA RASHID [facility] Rec #: [id number] Date of Service: 06/24/18 DATE OF ADMISSION: 06/24/2018 CHIEF COMPLAINT: The patient is an 82-year-old Stateless-speaking female who presents with chief complaint of generalized weakness and decreased oral intake. HISTORY OF PRESENT ILLNESS: The patient was admitted to [facility] from 02/28/2018 to 03/05/2018. The patient is status post open reduction and internal fixation and right hip hemiarthroplasty on 03/01/2018. The patient is status post open reduction and internal fixation of the right hip on 2017. The patient had dislocation on 02/28/2018. The patient underwent open reduction of right hip hemiarthroplasty dislocation on 03/01/2018. She presented to the hospital from country we last saw nursing facility due to the severe dehydration, decreased oral intake, and weakness. she has not been able to ambulate. The patient presented to [facility] emergency department as per request by Dr. Aquilino Matthews for further evaluation and aggressive therapy. Shortly after initial evaluation emergency patient was noted to have elevated lactic acid and severe dehydration and subsequently patient was admitted to hospital for possible sepsis and acute kidney injury with dehydration. REVIEW OF SYSTEMS: Unable to assess secondary to the patient's mental status. PAST MEDICAL HISTORY: Significant for: 1. Right hip fracture on 02/16/2018 as above, status post right hip hemiarthroplasty on 02/18/2018. 2. Dislocation of right hip arthroplasty and subsequent reduction of dislocation on 03/01/2018 as above. 3. Diabetes type 2. 4. Hypertension. 5. Sick sinus syndrome. 6. Hypercholesterolemia. 7. Coronary artery disease, status post non-ST elevated myocardial infarction. 8. Hypertension. 9. Aortic stenosis. 10. Pulmonary hypertension. 11. Alzheimer dementia. PAST SURGICAL HISTORY: Significant for: 1. Reduction of right hip hemiarthroplasty dislocation on 03/01/2018. 2. Right hip hemiarthroplasty on 02/18/2018. 3. Coronary artery bypass graft in 2016. 4. Pacemaker generator change in 2016. 5. Elbow debridement. 6. Pacemaker implantation in 2013. CURRENT MEDICATIONS: 1. Aspirin 81 mg p.o. daily. 2. Atenolol 50 mg p.o. twice daily. 3. Klonopin 0.5 mg p.o. q.6 h. p.r.n. 4. Clonidine 0.1 mg p.o. q.8 h. 5. Clopidogrel 75 mg p.o. daily. 6. Bentyl 10 mg p.o. four times daily. 7. Pepcid 20 mg p.o. at bedtime. 8. Lasix 40 mg p.o. daily. 9. [place] 5/325 one tablet p.o. q.6 h. p.r.n. 10. Losartan 25 mg p.o. daily. 11. Potassium chloride 10 mEq p.o. daily. 12. Crestor 10 mg p.o. daily. 13. Sitagliptin/metformin one tablet p.o. daily. 14. Trazodone 50 mg p.o. at bedtime. 15. Vitamin D 5000 units p.o. daily. ALLERGIES: No known drug allergies. SOCIAL HISTORY: The patient is and lives with her . The patient denies tobacco or alcohol use. PHYSICAL EXAMINATION: VITAL SIGNS: Date Time Temp Pulse Resp B/P (MAP) Pulse Ox O2 Delivery O2 Flow Rate FiO2 06/24/18 16:05 98.9 86 18 132/68 100 Room Air 06/24/18 14:05 99.4 80 18 126/68 100 Room Air 06/24/18 13:05 99.4 78 18 120/62 100 Room Air 06/24/18 12:05 68 20 Room Air 06/24/18 12:05 99.4 78 18 110/64 100 Room Air 06/24/18 11:54 99.5 68 20 100/64 98 Room Air GENERAL: Awake responsive to deep stimuli with opening of her eyes, in no apparent distress. HEENT: Eyes, pupils equal responsive to light and accommodation. Extraocular movements are intact. NECK: Supple. No lymphadenopathy. CHEST: Poor inspiratory effort, decreased air in the bases no wheezes or rhonchi was appreciated CARDIOVASCULAR: Regular rhythm and rate. S1 and S2 are normal without murmurs or gallops. ABDOMEN: Soft, nontender, and nondistended. Positive bowel sounds. No rebounding or guarding noted. EXTREMITIES: Negative for clubbing, cyanosis, or edema, muscle atrophy in bilateral lower extremity RECTAL/GENITAL: Not performed. NEUROLOGIC: Less responsive, unable to follow commands, however open her eyes with a deep stimulation, unable to evaluate for gait due to the patient's status. LABORATORY STUDIES: Test 06/24/18 12:07 06/24/18 13:00 06/24/18 13:36 06/24/18 19:20 White Blood Count 14.6 K/UL (4.8-10.8) Red Blood Count 3.92 M/UL (4.20-5.40) Hemoglobin 11.3 G/DL (12.0-16.0) Hematocrit 36.4 % (37.0-47.0) Mean Corpuscular Volume 93 FL (80-99) Mean Corpuscular Hemoglobin 28.9 PG (27.0-31.0) Mean Corpuscular Hemoglobin Concent 31.2 G/DL (32.0-36.0) Red Cell Distribution Width 16.9 % (11.6-14.8) Platelet Count 124 K/UL (150-450) Mean Platelet Volume 9.5 FL (6.5-10.1) Neutrophils (%) (Auto) % (45.0-75.0) Lymphocytes (%) (Auto) % (20.0-45.0) Monocytes (%) (Auto) % (1.0-10.0) Eosinophils (%) (Auto) % (0.0-3.0) Basophils (%) (Auto) % (0.0-2.0) Differential Total Cells Counted 100 Neutrophils % (Manual) 84 % (45-75) Lymphocytes % (Manual) 4 % (20-45) Monocytes % (Manual) 2 % (1-10) Eosinophils % (Manual) 0 % (0-3) Basophils % (Manual) 0 % (0-2) Band Neutrophils 10 % (0-8) Platelet Estimate Decreased Platelet Morphology Normal Hypochromasia 1+ Anisocytosis 1+ Sodium Level 145 MMOL/L (136-145) Potassium Level 5.2 MMOL/L (3.5-5.1) Chloride Level 111 MMOL/L (98-107) Carbon Dioxide Level 21 MMOL/L (21-32) Anion Gap 13 mmol/L (5-15) Blood Urea Nitrogen 47 mg/dL (7-18) Creatinine 1.5 MG/DL (0.55-1.30) Estimat Glomerular Filtration Rate mL/min (>60) Glucose Level 131 MG/DL (74-106) Lactic Acid Level 3.70 mmol/L (0.4-2.0) 5.30 mmol/L (0.66-2.22) Uric Acid 5.7 MG/DL (2.6-7.2) Calcium Level 9.2 MG/DL (8.5-10.1) Total Bilirubin 2.0 MG/DL (0.2-1.0) Direct Bilirubin 1.2 MG/DL (0.0-0.3) Aspartate Amino Transf (AST/SGOT) 204 U/L (15-37) Alanine Aminotransferase (ALT/SGPT) 85 U/L (12-78) Alkaline Phosphatase 133 U/L (46-116) Total Creatine Kinase 211 U/L (26-308) Creatine Kinase MB 0.8 NG/ML (0.0-3.6) Creatine Kinase MB Relative Index 0.3 Troponin I 0.131 ng/mL (0.000-0.056) Total Protein 6.6 G/DL (6.4-8.2) Albumin 2.1 G/DL (3.4-5.0) Globulin 4.5 g/dL Albumin/Globulin Ratio 0.5 (1.0-2.7) Lipase 58 U/L (73-393) Urine Eosinophils None seen (NONE SEEN) Urine Random Sodium < 20 mmol/L (20-110) Urine Potassium Timed 61 mmol/L (12-62) ASSESSMENT: This is an 82-year-old white female. 1. Sepsis, lactic acidosis. 2. Failure to thrive with severe protein calorie malnutrition. 3. Coronary artery disease. 4. Diabetes, type 2. 5. Hypertension. 6. Sick sinus syndrome. 7. Hypercholesterolemia. 8. Aortic stenosis. 9. Pulmonary hypertension. 10. Alzheimer dementia. 11. Acute tubular necrosis/acute kidney injury most likely secondary to dehydration and sepsis. TREATMENT: 1. Patient on broad spectrum antibiotics with vancomycin and cefepime. Monitor culture. 2. Coronary artery disease. The patient is status post coronary artery bypass graft in 2017. 3. Diabetes, type 2. The patient has been started on NovoLog sliding scale. Januvia and metformin have been discontinued, as the patient is not tolerating p.o. well. 4. Hypertension. The patient is to continue on atenolol and losartan as above. 5. Sick sinus syndrome. The patient is status post pacemaker implantation. 6. Hypercholesterolemia. Continue simvastatin as above. 7. Aortic stenosis. 8. Pulmonary hypertension. 9. Alzheimer dementia. CODE STATUS is full code as per ARLET, DVT prophylaxis: Heparin subcu. Carlos Alberto Berkowitz M.D. Carlos Alberto Berkowitz MD Jun 24, 2018 19:35
--- NOTE | 2018-06-24 20:12 | NUR ---
ED Nurse Note: noted fluid in right elbow area, ERMD notified and MD inserted IV 20g in L EJ, flushed with 10cc, pt tolerated well, dressing applied and intact. IV on right forearm dc.
[2018-06-24 20:13] LABS: APPEARANCE,URINE CLEAR; BILIRUBIN, URINE 1+ (NEGATIVE); GLUCOSE, URINE (UA) NEGATIVE (NEGATIVE); KETONES,URINE 1+ (NEGATIVE); LEUKOCYTE ESTERASE ,URINE 1+ (NEGATIVE); NITRITE,URINE NEGATIVE (NEGATIVE); PH,URINE 5 (4.5-8.0); PROTEIN,URINE 2+ (NEGATIVE); UROBILINOGEN,URINE 4 MG/DL (0.0-1.0)
[2018-06-24 20:15] LABS: COLOR,URINE YELLOW
--- NOTE | 2018-06-24 20:31 | NUR ---
ED Nurse Note: report given to SOILA Penaloza from Tele floor to continue care.
[2018-06-24 20:33] VITALS: BP 119/67
--- NOTE | 2018-06-24 20:39 | NUR ---
ED Nurse Note: pt transferred to tele, all belongings sent with pt, pt vss, airway intact, endorsed care to SOILA Penaloza.
--- NOTE | 2018-06-24 20:40 | NUR ---
NURSE NOTES: Received report from Anushka CM. Pt on perico confused, agitated, bedbound and moaning, transferred to bed with staff assist. Pt IVF running at prescribed rate. Bed in lowest position with side rails up x2 and tele monitor applied. Pt belongings list reviewed and signed. VSS. Pt on room air. Will continue to monitor.
[2018-06-24] MEDS: NovoLOG Insulin Flexpen SUBQ SCH ×2 (20:57→22:10)
[2018-06-24] MEDS ORDERED: TraZODone 50mg tab ORAL SCH (21:00)
[2018-06-24] MEDS: Heparin 5000 units/ml inj SUBQ SCH (22:08)
--- NOTE | 2018-06-24 22:40 | NUR ---
NURSE NOTES: Rechecked BS and there was increase from 49 to 104 after administering dextrose 50% syringe. CN made aware.
[2018-06-25] VITALS (7 sets, daily range): BP systolic 112–142; BP diastolic 54–99
[2018-06-25] MEDS ORDERED: Vancomycin 1 GM in D5W 275 ML IV SCH (00:30)
--- NOTE | 2018-06-25 02:31 | NUR ---
NURSE NOTES: Gave report to Magaly Hong RN per Stem Shaper and CN. Endorsed continuity of care.
--- NOTE | 2018-06-25 02:47 | NUR ---
NURSE NOTES: Received report from SOILA Penaloza. Patient is asleep lying semi-sky's; resting comfortably. Arousable to verbal stimuli. No signs of acute distress or pain noted at this time. AOx1; unable to verbalize needs. Checked IV site, line, and IV rate; patent and running. No erythema, bleeding, or infiltration noted. Bed at lowest position, brakes on, siderails up x3. Call light within reach. Will continue to monitor.
[2018-06-25] MEDS: NovoLOG Insulin Flexpen SUBQ SCH ×4 (05:55→21:49)
--- NOTE | 2018-06-25 05:55 | NUR ---
NURSE NOTES: NURSE NOTES: Dextrose 50 administered as ordered since patient's blood sugar level was noted to be 36. Will continue to monitor.
--- NOTE | 2018-06-25 06:10 | NUR ---
NURSE NOTES: Rechecked blood sugar. 50. Will administer another dose of Dextrose 50.
--- NOTE | 2018-06-25 06:39 | NUR ---
NURSE NOTES: Notified [facility] pharmacist regarding 0600 dose of Dextrose 50 not scanned. Was told, "you can scan a dose now and we'll just call the on-site pharmacy to see if they can address this a bit better."
--- NOTE | 2018-06-25 06:43 | NUR ---
NURSE NOTES: Called Dr. Mancera to notify him that patient's blood sugar is 50 after pushing Dextrose 50 when patient's blood sugar was inititally 36. Awaiting callback.
--- NOTE | 2018-06-25 06:50 | NUR ---
NURSE NOTES: Received new order from Dr. Mancera to change 1/2 NS fluid to D5 1/2 NS at 100 mls/hr. Noted and carried out.
[2018-06-25] MEDS ORDERED: D5 1/2NS 1,000 ML IV SCH (07:00)
--- NOTE | 2018-06-25 07:05 | NUR ---
NURSE NOTES: Rechecked blood sugar. 191.
[2018-06-25 07:29] LABS: HEMATOCRIT 31.6 % (37.0-47.0); MEAN CORPUSCULAR VOLUME 92 FL (80-99); PLATELET COUNT 105 K/UL (150-450); RED BLOOD COUNT 3.42 M/UL (4.20-5.40); WHITE BLOOD COUNT 14.9 K/UL (4.8-10.8)
--- NOTE | 2018-06-25 07:37 | NUR ---
HAND-OFF: Report given to SOILA Yusuf. Patient is awake lying semi-sky's; resting comfortably. In stable condition.
[2018-06-25 08:12] LABS: PHOSPHORUS 3.6 MG/DL (2.5-4.9)
--- NOTE | 2018-06-25 08:26 | NUR ---
NURSE NOTES: Pt in bed with HOB in semi fowlers and in a low position, pt is confused Ox zero, may or may not respond to name, and is a [place] speaker, is a 1:1 feeder, is not strong enough so pt needs to be turned every 2hrs, night nurse reported that the pt was having episodes of hypoglycemia and D50% was given twice to bring up the blood sugar to acceptable levels, no s/s of distress or sob noted.
[2018-06-25 08:54] LABS: ALANINE AMINOTRANSFERASE 54 U/L (12-78); ALBUMIN 1.5 G/DL (3.4-5.0); ALBUMIN/GLOBULIN RATIO 0.4 (1.0-2.7); ALKALINE PHOSPHATASE 90 U/L (46-116); ANION GAP 14 mmol/L (5-15); ASPARTATE AMINO TRANSFERASE 68 U/L (15-37); BILIRUBIN,TOTAL 1.4 MG/DL (0.2-1.0); BLOOD UREA NITROGEN 47 mg/dL (7-18); CARBON DIOXIDE 17 MMOL/L (21-32); CHLORIDE 111 MMOL/L (98-107); CREATININE 1.3 MG/DL (0.55-1.30); POTASSIUM 3.6 MMOL/L (3.5-5.1); SODIUM 142 MMOL/L (136-145)
--- NOTE | 2018-06-25 09:53 | Consultation ---
History of Present Illness General Date patient seen: Jun 25, 2018 Chief Complaint: General Complaint Reason for Consultation: Sepsis Present Illness HPI Ms. Lafleur is a 82 yo female with PMHx DM, CAD, Alzheimer dementia and Hip fracture who presents with dehydration and weakness. The patient was seen by Dr. Matthews and was then sent to the hospital for futher treatment. The patient has been experincing wekaness and poor oral intake. She has not been able to walk and lives at a [place] [facility]. We are unabel to get futher history due to her dementia. In the ED she was afebrile with WBCs of 14. She also had elevated lactic acid. CXR negative, UA positive. ID consulted for sepsis PMHx/PSHx Right hip fracture with hemiarthroplasty Feb 2018 DM HTN Sick sinus syndrome sp Pacemaker HLD CAD - SP IN and CABG Aortic stenosis. Pulmonary hypertension. Alzheimer dementia. SocHx Unable to obtain secondary to dementia FamHx Unable to obtain secondary to dementia Allergies: Coded Allergies: No Known Allergies (Unverified , 08/10/13) Medication History Scheduled Ascorbic Acid* (Ascorbic Acid*), 500 MG ORAL DAILY, (Reported) Aspirin (Aspirin EC), 81 MG ORAL DAILY, (Reported) Atenolol* (Tenormin*), 50 MG ORAL BID, (Reported) Atorvastatin Calcium* (Atorvastatin Calcium*), 20 MG ORAL BEDTIME, (Reported) Cholecalciferol (Vitamin D3)* (Vitamin D*), 2,000 UNITS ORAL DAILY, (Reported) Clonazepam* (Klonopin*), 0.5 MG ORAL Q6H, (Reported) Clonidine Hcl* (Catapres*), 0.1 MG ORAL EVERY 8 HOURS, (Reported) Clopidogrel* (Clopidogrel*), 75 MG ORAL DAILY, (Reported) Dicyclomine Hcl* (Dicyclomine Hcl*), 10 MG PO QID Famotidine (Pepcid), 20 MG ORAL BEDTIME Furosemide* (Lasix*), 40 MG ORAL DAILY, (Reported) Losartan Potassium* (Losartan Potassium*), 25 MG ORAL DAILY, (Reported) Metformin Hcl* (Metformin Hcl*), 500 MG ORAL TWICE A DAY, (Reported) Mirtazapine* (Mirtazapine*), 15 MG ORAL BEDTIME, (Reported) Potassium Chloride (Potassium Chloride), 10 MEQ ORAL DAILY, (Reported) Rosuvastatin Calcium* (Crestor*), 10 MG ORAL DAILY, (Reported) Sitagliptin Phos/Metformin Hcl (Janumet Xr 50-1,000 Mg Tablet), 1 TAB ORAL DAILY , (Reported) Trazodone* (Trazodone*), 50 MG ORAL BEDTIME, (Reported) Vancomycin HCl (Vancocin HCl), 1,000 MG IV DAILY, (Reported) Vitamin D (Vitamin D3), 5,000 UNITS ORAL DAILY, (Reported) Zinc Sulfate (Zinc Sulfate*), 220 MG ORAL DAILY, (Reported) Scheduled PRN Haloperidol* (Haldol*), 5 MG IM EVERY 6 HOURS PRN for Agitation, (Reported) Hydrocodone Bit/Acetaminophen 5-325* ([place] 5-325*), 1 TAB ORAL Q6H PRN for For Pain Lorazepam* (Lorazepam*), 2 MG ORAL THREE TIMES A DAY PRN for For Anxiety, ( Reported) Miscellaneous Medications Apixaban (Eliquis), 5 MG PO, (Reported) Patient History Healthcare decision maker Resuscitation status Full Code Advanced Directive on File Review of Systems ROS Narrative Unable to obtain secondary to dementia Physical Exam Last 24 Hour Vital Signs Date Time Temp Pulse Resp B/P (MAP) Pulse Ox O2 Delivery O2 Flow Rate FiO2 06/25/18 08:51 Room Air 06/25/18 08:00 98.9 70 19 125/74 (91) 92 06/25/18 04:00 65 06/25/18 04:00 97.6 20 112/56 (74) 95 06/25/18 00:00 61 06/25/18 00:00 97.5 71 20 122/54 (76) 95 06/24/18 22:45 97.2 06/24/18 22:42 Room Air 06/24/18 20:37 97.2 86 18 128/63 100 Room Air 06/24/18 20:33 98.9 67 18 119/67 100 Room Air 06/24/18 18:05 98.9 86 18 128/63 100 Room Air 06/24/18 16:05 98.9 86 18 132/68 100 Room Air 06/24/18 14:05 99.4 80 18 126/68 100 Room Air 06/24/18 13:05 99.4 78 18 120/62 100 Room Air 06/24/18 12:05 68 20 Room Air 06/24/18 12:05 99.4 78 18 110/64 100 Room Air 06/24/18 11:54 99.5 68 20 100/64 98 Room Air Intake and Output 06/24/18 06/25/18 19:00 07:00 Intake Total 668 ml Balance 668 ml Intake IV Total 668 ml # Voids 1 Laboratory Tests Test 06/24/18 12:07 06/24/18 13:00 06/24/18 13:36 06/24/18 19:20 White Blood Count 14.6 K/UL (4.8-10.8) H Red Blood Count 3.92 M/UL (4.20-5.40) L Hemoglobin 11.3 G/DL (12.0-16.0) L Hematocrit 36.4 % (37.0-47.0) L Mean Corpuscular Volume 93 FL (80-99) Mean Corpuscular Hemoglobin 28.9 PG (27.0-31.0) Mean Corpuscular Hemoglobin Concent 31.2 G/DL (32.0-36.0) L Red Cell Distribution Width 16.9 % (11.6-14.8) H Platelet Count 124 K/UL (150-450) L Mean Platelet Volume 9.5 FL (6.5-10.1) Neutrophils (%) (Auto) % (45.0-75.0) Lymphocytes (%) (Auto) % (20.0-45.0) Monocytes (%) (Auto) % (1.0-10.0) Eosinophils (%) (Auto) % (0.0-3.0) Basophils (%) (Auto) % (0.0-2.0) Differential Total Cells Counted 100 Neutrophils % (Manual) 84 % (45-75) H Lymphocytes % (Manual) 4 % (20-45) L Monocytes % (Manual) 2 % (1-10) Eosinophils % (Manual) 0 % (0-3) Basophils % (Manual) 0 % (0-2) Band Neutrophils 10 % (0-8) H Platelet Estimate Decreased L Platelet Morphology Normal Hypochromasia 1+ Anisocytosis 1+ Sodium Level 145 MMOL/L (136-145) Potassium Level 5.2 MMOL/L (3.5-5.1) H Chloride Level 111 MMOL/L (98-107) H Carbon Dioxide Level 21 MMOL/L (21-32) Anion Gap 13 mmol/L (5-15) Blood Urea Nitrogen 47 mg/dL (7-18) H Creatinine 1.5 MG/DL (0.55-1.30) H Estimat Glomerular Filtration Rate mL/min (>60) Glucose Level 131 MG/DL (74-106) H Lactic Acid Level 3.70 mmol/L (0.4-2.0) H 5.30 mmol/L (0.66-2.22) H 3.30 mmol/L (0.4-2.0) H Uric Acid 5.7 MG/DL (2.6-7.2) Calcium Level 9.2 MG/DL (8.5-10.1) Total Bilirubin 2.0 MG/DL (0.2-1.0) H Direct Bilirubin 1.2 MG/DL (0.0-0.3) H Aspartate Amino Transf (AST/SGOT) 204 U/L (15-37) H Alanine Aminotransferase (ALT/SGPT) 85 U/L (12-78) H Alkaline Phosphatase 133 U/L (46-116) H Total Creatine Kinase 211 U/L (26-308) Creatine Kinase MB 0.8 NG/ML (0.0-3.6) Creatine Kinase MB Relative Index 0.3 Troponin I 0.131 ng/mL (0.000-0.056) Total Protein 6.6 G/DL (6.4-8.2) Albumin 2.1 G/DL (3.4-5.0) L Globulin 4.5 g/dL Albumin/Globulin Ratio 0.5 (1.0-2.7) L Lipase 58 U/L (73-393) L Urine Eosinophils None seen (NONE SEEN) Urine Random Sodium < 20 mmol/L (20-110) L Urine Potassium Timed 61 mmol/L (12-62) Test 06/24/18 19:33 06/25/18 07:15 Urine Color Yellow Urine Appearance Clear Urine pH 5 (4.5-8.0) Urine Specific [place] 1.015 (1.005-1.035) Urine Protein 2+ (NEGATIVE) H Urine Glucose (UA) Negative (NEGATIVE) Urine Ketones 1+ (NEGATIVE) H Urine Blood 3+ (NEGATIVE) H Urine Nitrite Negative (NEGATIVE) Urine Bilirubin 1+ (NEGATIVE) H Urine Ictotest Negative (NEGATIVE) Urine Urobilinogen 4 MG/DL (0.0-1.0) H Urine Leukocyte Esterase 1+ (NEGATIVE) H Urine RBC 10-15 /HPF (0 - 2) H Urine WBC 5-10 /HPF (0 - 2) H Urine Squamous Epithelial Cells Few /LPF (NONE/OCC) Urine Bacteria Few /HPF (NONE) White Blood Count 14.9 K/UL (4.8-10.8) H Red Blood Count 3.42 M/UL (4.20-5.40) L Hemoglobin 10.0 G/DL (12.0-16.0) L Hematocrit 31.6 % (37.0-47.0) L Mean Corpuscular Volume 92 FL (80-99) Mean Corpuscular Hemoglobin 29.1 PG (27.0-31.0) Mean Corpuscular Hemoglobin Concent 31.5 G/DL (32.0-36.0) L Red Cell Distribution Width 16.0 % (11.6-14.8) H Platelet Count 105 K/UL (150-450) L Mean Platelet Volume 11.4 FL (6.5-10.1) H Neutrophils (%) (Auto) % (45.0-75.0) Lymphocytes (%) (Auto) % (20.0-45.0) Monocytes (%) (Auto) % (1.0-10.0) Eosinophils (%) (Auto) % (0.0-3.0) Basophils (%) (Auto) % (0.0-2.0) Neutrophils % (Manual) Pending Lymphocytes % (Manual) Pending Platelet Estimate Pending Platelet Morphology Pending Sodium Level 142 MMOL/L (136-145) Potassium Level 3.6 MMOL/L (3.5-5.1) Chloride Level 111 MMOL/L (98-107) H Carbon Dioxide Level 17 MMOL/L (21-32) L Anion Gap 14 mmol/L (5-15) Blood Urea Nitrogen 47 mg/dL (7-18) H Creatinine 1.3 MG/DL (0.55-1.30) Estimat Glomerular Filtration Rate mL/min (>60) Glucose Level 352 MG/DL (74-106) #H Calcium Level 8.0 MG/DL (8.5-10.1) L Phosphorus Level 3.6 MG/DL (2.5-4.9) Magnesium Level 1.6 MG/DL (1.8-2.4) L Total Bilirubin 1.4 MG/DL (0.2-1.0) H Direct Bilirubin 1.0 MG/DL (0.0-0.3) H Aspartate Amino Transf (AST/SGOT) 68 U/L (15-37) H Alanine Aminotransferase (ALT/SGPT) 54 U/L (12-78) Alkaline Phosphatase 90 U/L (46-116) Troponin I 0.062 ng/mL (0.000-0.056) Total Protein 5.1 G/DL (6.4-8.2) L Albumin 1.5 G/DL (3.4-5.0) L Globulin 3.6 g/dL Albumin/Globulin Ratio 0.4 (1.0-2.7) L Height (Feet): 5 Height (Inches): 6.00 Weight (Pounds): 150 Medications Current Medications Medications (Trade) Dose Ordered Sig/Yi Route PRN Reason Start Time Stop Time Status Last Admin Dose Admin Acetaminophen (Tylenol) 650 mg Q4H PRN ORAL T>100.5 06/24/18 13:30 07/24/18 13:29 Albuterol/ Ipratropium (Albuterol/ Ipratropium) 3 ml Q4H PRN HHN Shortness of Breath 06/24/18 13:30 06/29/18 13:29 Cefepime HCl 1 gm/ Dextrose 55 ml @ 110 mls/hr Q24H IVPB 06/25/18 16:00 07/02/18 15:59 Clonazepam (KlonoPIN) 0.5 mg Q6H PRN ORAL Anxiety/agitation 06/24/18 13:30 07/01/18 13:29 Clonidine HCl (Catapres Tab) 0.1 mg Q8H PRN ORAL SBP>160mmHg 06/24/18 17:00 07/24/18 16:59 Dextrose (Dextrose 50%) 25 ml Q30M PRN IV Hypoglycemia 06/24/18 13:45 07/24/18 13:30 Dextrose (Dextrose 50%) 50 ml ONCE PRN IV HYPOGLYCEMIA 06/25/18 06:00 07/25/18 05:59 Dextrose (Dextrose 50%) 50 ml Q30M PRN IV hypoglycemia 06/24/18 13:45 07/24/18 13:44 06/25/18 06:46 Dextrose/Sodium Chloride 1,000 ml @ 100 mls/hr Q10H IV 06/25/18 07:00 07/25/18 06:59 Heparin Sodium (Porcine) (Heparin 5000 units/ml) 5,000 units EVERY 12 HOURS SUBQ 06/24/18 21:00 07/24/18 20:59 06/24/18 22:08 Insulin Aspart (NovoLOG) BEFORE MEALS AND HS SUBQ 06/24/18 16:30 07/24/18 16:29 Morphine Sulfate (Morphine Sulfate) 2 mg Q4H PRN IVP Moderate Pain (Pain Scale 4-6) 06/24/18 13:30 07/01/18 13:29 06/24/18 22:15 Ondansetron HCl (Zofran) 4 mg Q6H PRN IVP Nausea & Vomiting 06/24/18 13:30 07/24/18 13:29 Phenazopyridine HCl (Pyridium) 100 mg DAILYPRN PRN ORAL dysuria 06/24/18 13:30 07/24/18 13:29 Polyethylene Glycol (Miralax) 17 gm DAILYPRN PRN ORAL Constipation 06/24/18 13:30 07/24/18 13:29 Temazepam (Restoril) 15 mg HSPRN PRN ORAL Insomnia 06/24/18 21:00 07/01/18 20:59 Trazodone HCl (Desyrel) 50 mg BEDTIME ORAL 06/24/18 21:00 07/24/18 20:59 Vancomycin HCl (Vanco rx to dose) 1 ea DAILY PRN MISC . 06/24/18 14:45 07/24/18 14:44 Vancomycin HCl 750 mg/Sodium Chloride 275 ml @ 183.333 mls/hr Q24H IVPB 06/25/18 17:00 06/30/18 16:59 Objective Narrative Gen: Moaning, Awake but no following HEENT: NCAT, MMM, EOMI, PERRL, poor dentition, no scleral icterus NECK: full range of motion, supple, no meningismus, No LAD, No JVD LUNGS: CTAB, No W/C, No Accessory muscle use CARDS: RRR, S1, S2, No M/R/G, ABD: Soft, NT, ND, No R/G, + BS, No HSM, No Masses : Deferred Ext: Poor circulation to Ext (cool to touch) , Pulses 2+ B/L (DP, Rad): NEURO: A/O x 4, Strength and Sensation Grossly intact PSYCH: Mood/affect normal SKIN: Dry, No rashes, Large sacral ulcer. Mild odor no surrounding cellulitis, foot with eschar Assessment/Plan Assessment/Plan 82 yo female with PMHx DM, CAD, Alzheimer dementia and Hip fracture who presents with dehydration and weakness. Sepsis Unclear souce suspect may be lack of oral intake with UTI Mild leukocytosis Aferbile Positive UA CXR neg Pressure ulcers Not infected Right hip fracture with hemiarthroplasty Feb 2018 DM HTN Sick sinus syndrome sp Pacemaker HLD CAD - SP IN and CABG Aortic stenosis. Pulmonary hypertension. Alzheimer dementia. PLAN - continue cefepime and vancomycin - pending Cx - f/u cultures - Monitor CBC and temps - wound care - Nutritional support Thank you for this consult. We will continue to follow the patient during this hospitalization. Johnnie Alberts MD Jun 25, 2018 09:53
[2018-06-25] MEDS: Heparin 5000 units/ml inj SUBQ SCH ×2 (10:00→21:54)
[2018-06-25] MEDS ORDERED: LORazepam 1mg tab ORAL PRN (11:00)
[2018-06-25] MEDS ORDERED: OLANZapine 2.5mg tab ORAL SCH (11:00)
--- NOTE | 2018-06-25 11:02 | Pulmonology Progress Note ---
Assessment/Plan Problems: (1) Sepsis (2) ATN (acute tubular necrosis) (3) Pulmonary hypertension (4) Pacemaker (5) CAD (coronary artery disease) (6) Sacral decubitus ulcer, stage III (7) Alzheimer's dementia (8) Protein-calorie malnutrition, severe (9) HTN (hypertension) Assessment/Plan d/w wound care nurse, mckeon cultures iv fluids check electrolytes sliding scale check electrolytes daily broad spectrum abx dvt prophylaxis insulin coverage. social service consult Subjective ROS Limited/Unobtainable: No Constitutional: Reports: no symptoms HEENT: Repors: no symptoms Respiratory: Reports: no symptoms Allergies: Coded Allergies: No Known Allergies (Unverified , 08/10/13) Objective Last 24 Hour Vital Signs Date Time Temp Pulse Resp B/P (MAP) Pulse Ox O2 Delivery O2 Flow Rate FiO2 06/25/18 08:51 Room Air 06/25/18 08:00 98.9 70 19 125/74 (91) 92 06/25/18 04:00 65 06/25/18 04:00 97.6 20 112/56 (74) 95 06/25/18 00:00 61 06/25/18 00:00 97.5 71 20 122/54 (76) 95 06/24/18 22:45 97.2 06/24/18 22:42 Room Air 06/24/18 20:37 97.2 86 18 128/63 100 Room Air 06/24/18 20:33 98.9 67 18 119/67 100 Room Air 06/24/18 18:05 98.9 86 18 128/63 100 Room Air 06/24/18 16:05 98.9 86 18 132/68 100 Room Air 06/24/18 14:05 99.4 80 18 126/68 100 Room Air 06/24/18 13:05 99.4 78 18 120/62 100 Room Air 06/24/18 12:05 68 20 Room Air 06/24/18 12:05 99.4 78 18 110/64 100 Room Air 06/24/18 11:54 99.5 68 20 100/64 98 Room Air Intake and Output 06/24/18 06/25/18 19:00 07:00 Intake Total 668 ml Balance 668 ml Intake IV Total 668 ml # Voids 1 General Appearance: cachetic HEENT: normocephalic, atraumatic Respiratory/Chest: chest wall non-tender, lungs clear Cardiovascular: normal peripheral pulses, normal rate Abdomen: normal bowel sounds, no organomegaly Extremities: other - cold toes Laboratory Tests 06/24/18 12:07: White Blood Count 14.6H, Red Blood Count 3.92L, Hemoglobin 11.3L, Hematocrit 36.4L, Mean Corpuscular Volume 93, Mean Corpuscular Hemoglobin 28.9, Mean Corpuscular Hemoglobin Concent 31.2L, Red Cell Distribution Width 16.9H, Platelet Count 124L, Mean Platelet Volume 9.5, Neutrophils (%) (Auto) , Lymphocytes (%) (Auto) , Monocytes (%) (Auto) , Eosinophils (%) (Auto) , Basophils (%) (Auto) , Differential Total Cells Counted 100, Neutrophils % ( Manual) 84H, Lymphocytes % (Manual) 4L, Monocytes % (Manual) 2, Eosinophils % ( Manual) 0, Basophils % (Manual) 0, Band Neutrophils 10H, Platelet Estimate DecreasedL, Platelet Morphology Normal, Hypochromasia 1+, Anisocytosis 1+, Sodium Level 145, Potassium Level 5.2H, Chloride Level 111H, Carbon Dioxide Level 21, Anion Gap 13, Blood Urea Nitrogen 47H, Creatinine 1.5H, Estimat Glomerular Filtration Rate , Glucose Level 131H, Lactic Acid Level 3.70H, Uric Acid 5.7, Calcium Level 9.2, Total Bilirubin 2.0H, Direct Bilirubin 1.2H, Aspartate Amino Transf (AST/SGOT) 204H, Alanine Aminotransferase (ALT/SGPT) 85H , Alkaline Phosphatase 133H, Total Creatine Kinase 211, Creatine Kinase MB 0.8, Creatine Kinase MB Relative Index 0.3, Troponin I 0.131H, Total Protein 6.6, Albumin 2.1L, Globulin 4.5, Albumin/Globulin Ratio 0.5L, Lipase 58L 06/24/18 13:00: Urine Eosinophils None seen, Urine Random Sodium < 20L, Urine Potassium Timed 61 06/24/18 13:36: Lactic Acid Level 5.30H 06/24/18 19:20: Lactic Acid Level 3.30H 06/24/18 19:33: Urine Color Yellow, Urine Appearance Clear, Urine pH 5, Urine Specific [place] 1.015, Urine Protein 2+H, Urine Glucose (UA) Negative, Urine Ketones 1+H, Urine Blood 3+H, Urine Nitrite Negative, Urine Bilirubin 1+H, Urine Ictotest Negative , Urine Urobilinogen 4H, Urine Leukocyte Esterase 1+H, Urine RBC 10-15H, Urine WBC 5-10H, Urine Squamous Epithelial Cells Few, Urine Bacteria Few 06/25/18 07:15: White Blood Count 14.9H, Red Blood Count 3.42L, Hemoglobin 10.0L, Hematocrit 31.6L, Mean Corpuscular Volume 92, Mean Corpuscular Hemoglobin 29.1, Mean Corpuscular Hemoglobin Concent 31.5L, Red Cell Distribution Width 16.0H, Platelet Count 105L, Mean Platelet Volume 11.4H, Neutrophils (%) (Auto) , Lymphocytes (%) (Auto) , Monocytes (%) (Auto) , Eosinophils (%) (Auto) , Basophils (%) (Auto) , Differential Total Cells Counted 100, Neutrophils % ( Manual) 89H, Lymphocytes % (Manual) 3L, Monocytes % (Manual) 1, Eosinophils % ( Manual) 0, Basophils % (Manual) 0, Band Neutrophils 7, Platelet Estimate DecreasedL, Platelet Morphology Normal, Hypochromasia 2+, Anisocytosis 1+, Ovalocytes 1+, [place] Cells Occasional, Sodium Level 142, Potassium Level 3.6, Chloride Level 111H, Carbon Dioxide Level 17L, Anion Gap 14, Blood Urea Nitrogen 47H, Creatinine 1.3, Estimat Glomerular Filtration Rate , Glucose Level 352#H, Calcium Level 8.0L, Phosphorus Level 3.6, Magnesium Level 1.6L, Total Bilirubin 1.4H, Direct Bilirubin 1.0H, Aspartate Amino Transf (AST/SGOT) 68H, Alanine Aminotransferase (ALT/SGPT) 54, Alkaline Phosphatase 90, Troponin I 0.062H, Total Protein 5.1L, Albumin 1.5L, Globulin 3.6, Albumin/Globulin Ratio 0.4L Current Medications Medications (Trade) Dose Ordered Sig/Yi Route PRN Reason Start Time Stop Time Status Last Admin Dose Admin Acetaminophen (Tylenol) 650 mg Q4H PRN ORAL T>100.5 06/24/18 13:30 07/24/18 13:29 Albuterol/ Ipratropium (Albuterol/ Ipratropium) 3 ml Q4H PRN HHN Shortness of Breath 06/24/18 13:30 06/29/18 13:29 Cefepime HCl 1 gm/ Dextrose 55 ml @ 110 mls/hr Q24H IVPB 06/25/18 16:00 07/02/18 15:59 Clonidine HCl (Catapres Tab) 0.1 mg Q8H PRN ORAL SBP>160mmHg 06/24/18 17:00 07/24/18 16:59 Dextrose (Dextrose 50%) 25 ml Q30M PRN IV Hypoglycemia 06/24/18 13:45 07/24/18 13:30 Dextrose (Dextrose 50%) 50 ml ONCE PRN IV HYPOGLYCEMIA 06/25/18 06:00 07/25/18 05:59 Dextrose (Dextrose 50%) 50 ml Q30M PRN IV hypoglycemia 06/24/18 13:45 07/24/18 13:44 06/25/18 06:46 Dextrose/Sodium Chloride 1,000 ml @ 100 mls/hr Q10H IV 06/25/18 07:00 07/25/18 06:59 06/25/18 10:22 Heparin Sodium (Porcine) (Heparin 5000 units/ml) 5,000 units EVERY 12 HOURS SUBQ 06/24/18 21:00 07/24/18 20:59 06/24/18 22:08 Insulin Aspart (NovoLOG) BEFORE MEALS AND HS SUBQ 06/24/18 16:30 07/24/18 16:29 Mirtazapine (Remeron) 7.5 mg BEDTIME ORAL 06/25/18 21:00 07/25/18 20:59 UNV Morphine Sulfate (Morphine Sulfate) 2 mg Q4H PRN IVP Moderate Pain (Pain Scale 4-6) 06/24/18 13:30 07/01/18 13:29 06/24/18 22:15 Ondansetron HCl (Zofran) 4 mg Q6H PRN IVP Nausea & Vomiting 06/24/18 13:30 07/24/18 13:29 Phenazopyridine HCl (Pyridium) 100 mg DAILYPRN PRN ORAL dysuria 06/24/18 13:30 07/24/18 13:29 Polyethylene Glycol (Miralax) 17 gm DAILYPRN PRN ORAL Constipation 06/24/18 13:30 07/24/18 13:29 Temazepam (Restoril) 15 mg HSPRN PRN ORAL Insomnia 06/24/18 21:00 07/01/18 20:59 Vancomycin HCl (Vanco rx to dose) 1 ea DAILY PRN MISC . 06/24/18 14:45 07/24/18 14:44 Vancomycin HCl 750 mg/Sodium Chloride 275 ml @ 183.333 mls/hr Q24H IVPB 06/25/18 17:00 06/30/18 16:59 Rod Mancera MD Jun 25, 2018 11:02
--- NOTE | 2018-06-25 12:27 | Consultation ---
History of Present Illness General Date patient seen: Jun 25, 2018 Chief Complaint: General Complaint Reason for Consultation: Sepsis Present Illness HPI 82 yo female with multiple medical comorbidities including DM, CAD, Alzheimer dementia and Hip fracture presented with dehydration and weakness. On admission noted to have multiple wounds requiring care and assistance. patient long term resident dependant on care. surgery called to evaluate and assist with care/management. Allergies: Coded Allergies: No Known Allergies (Unverified , 08/10/13) Medication History Scheduled Ascorbic Acid* (Ascorbic Acid*), 500 MG ORAL DAILY, (Reported) Aspirin (Aspirin EC), 81 MG ORAL DAILY, (Reported) Atenolol* (Tenormin*), 50 MG ORAL BID, (Reported) Atorvastatin Calcium* (Atorvastatin Calcium*), 20 MG ORAL BEDTIME, (Reported) Cholecalciferol (Vitamin D3)* (Vitamin D*), 2,000 UNITS ORAL DAILY, (Reported) Clonazepam* (Klonopin*), 0.5 MG ORAL Q6H, (Reported) Clonidine Hcl* (Catapres*), 0.1 MG ORAL EVERY 8 HOURS, (Reported) Clopidogrel* (Clopidogrel*), 75 MG ORAL DAILY, (Reported) Dicyclomine Hcl* (Dicyclomine Hcl*), 10 MG PO QID Famotidine (Pepcid), 20 MG ORAL BEDTIME Furosemide* (Lasix*), 40 MG ORAL DAILY, (Reported) Losartan Potassium* (Losartan Potassium*), 25 MG ORAL DAILY, (Reported) Metformin Hcl* (Metformin Hcl*), 500 MG ORAL TWICE A DAY, (Reported) Mirtazapine* (Mirtazapine*), 15 MG ORAL BEDTIME, (Reported) Potassium Chloride (Potassium Chloride), 10 MEQ ORAL DAILY, (Reported) Rosuvastatin Calcium* (Crestor*), 10 MG ORAL DAILY, (Reported) Sitagliptin Phos/Metformin Hcl (Janumet Xr 50-1,000 Mg Tablet), 1 TAB ORAL DAILY , (Reported) Trazodone* (Trazodone*), 50 MG ORAL BEDTIME, (Reported) Vancomycin HCl (Vancocin HCl), 1,000 MG IV DAILY, (Reported) Vitamin D (Vitamin D3), 5,000 UNITS ORAL DAILY, (Reported) Zinc Sulfate (Zinc Sulfate*), 220 MG ORAL DAILY, (Reported) Scheduled PRN Haloperidol* (Haldol*), 5 MG IM EVERY 6 HOURS PRN for Agitation, (Reported) Hydrocodone Bit/Acetaminophen 5-325* ([place] 5-325*), 1 TAB ORAL Q6H PRN for For Pain Lorazepam* (Lorazepam*), 2 MG ORAL THREE TIMES A DAY PRN for For Anxiety, ( Reported) Miscellaneous Medications Apixaban (Eliquis), 5 MG PO, (Reported) Patient History Limited by: medical condition History Provided By: Medical Record, PMD Healthcare decision maker Resuscitation status Full Code Advanced Directive on File Past Medical/Surgical History Past Medical/Surgical History: (1) Sepsis (2) ATN (acute tubular necrosis) (3) Dehydration (4) Weakness (5) Delirium (6) Acute on chronic systolic CHF (congestive heart failure) (7) Colitis (8) Diabetes mellitus, type II (9) Psychosis (10) DVT of left axillary vein, acute (11) Sick sinus syndrome (12) CAD (coronary artery disease) (13) HTN (hypertension) (14) Pacemaker (15) Fracture of femoral neck, right, closed (16) UTI (urinary tract infection) (17) Protein-calorie malnutrition, severe (18) Pulmonary hypertension (19) Aortic stenosis (20) Alzheimer's dementia (21) Sacral decubitus ulcer, stage III (22) Rectal bleed (23) Severe anemia Review of Systems ROS Narrative cannot obtain Physical Exam General Appearance: no apparent distress Lines, tubes and drains: peripheral HEENT: mucous membranes moist Neck: normal inspection Respiratory/Chest: normal breath sounds Cardiovascular/Chest: regular rhythm Abdomen: soft, no organomegaly, no mass Extremities: other Skin Exam: other Last 24 Hour Vital Signs Date Time Temp Pulse Resp B/P (MAP) Pulse Ox O2 Delivery O2 Flow Rate FiO2 06/25/18 08:51 Room Air 06/25/18 08:00 98.9 70 19 125/74 (91) 92 06/25/18 04:00 65 06/25/18 04:00 97.6 20 112/56 (74) 95 06/25/18 00:00 61 06/25/18 00:00 97.5 71 20 122/54 (76) 95 06/24/18 22:45 97.2 06/24/18 22:42 Room Air 06/24/18 20:37 97.2 86 18 128/63 100 Room Air 06/24/18 20:33 98.9 67 18 119/67 100 Room Air 06/24/18 18:05 98.9 86 18 128/63 100 Room Air 06/24/18 16:05 98.9 86 18 132/68 100 Room Air 06/24/18 14:05 99.4 80 18 126/68 100 Room Air 06/24/18 13:05 99.4 78 18 120/62 100 Room Air Intake and Output 06/24/18 06/25/18 19:00 07:00 Intake Total 668 ml Balance 668 ml Intake IV Total 668 ml # Voids 1 Laboratory Tests Test 06/24/18 13:00 06/24/18 13:36 06/24/18 19:20 06/24/18 19:33 Urine Eosinophils None seen (NONE SEEN) Urine Random Sodium < 20 mmol/L (20-110) L Urine Potassium Timed 61 mmol/L (12-62) Lactic Acid Level 5.30 mmol/L (0.66-2.22) H 3.30 mmol/L (0.4-2.0) H Urine Color Yellow Urine Appearance Clear Urine pH 5 (4.5-8.0) Urine Specific [place] 1.015 (1.005-1.035) Urine Protein 2+ (NEGATIVE) H Urine Glucose (UA) Negative (NEGATIVE) Urine Ketones 1+ (NEGATIVE) H Urine Blood 3+ (NEGATIVE) H Urine Nitrite Negative (NEGATIVE) Urine Bilirubin 1+ (NEGATIVE) H Urine Ictotest Negative (NEGATIVE) Urine Urobilinogen 4 MG/DL (0.0-1.0) H Urine Leukocyte Esterase 1+ (NEGATIVE) H Urine RBC 10-15 /HPF (0 - 2) H Urine WBC 5-10 /HPF (0 - 2) H Urine Squamous Epithelial Cells Few /LPF (NONE/OCC) Urine Bacteria Few /HPF (NONE) Test 06/25/18 07:15 White Blood Count 14.9 K/UL (4.8-10.8) H Red Blood Count 3.42 M/UL (4.20-5.40) L Hemoglobin 10.0 G/DL (12.0-16.0) L Hematocrit 31.6 % (37.0-47.0) L Mean Corpuscular Volume 92 FL (80-99) Mean Corpuscular Hemoglobin 29.1 PG (27.0-31.0) Mean Corpuscular Hemoglobin Concent 31.5 G/DL (32.0-36.0) L Red Cell Distribution Width 16.0 % (11.6-14.8) H Platelet Count 105 K/UL (150-450) L Mean Platelet Volume 11.4 FL (6.5-10.1) H Neutrophils (%) (Auto) % (45.0-75.0) Lymphocytes (%) (Auto) % (20.0-45.0) Monocytes (%) (Auto) % (1.0-10.0) Eosinophils (%) (Auto) % (0.0-3.0) Basophils (%) (Auto) % (0.0-2.0) Differential Total Cells Counted 100 Neutrophils % (Manual) 89 % (45-75) H Lymphocytes % (Manual) 3 % (20-45) L Monocytes % (Manual) 1 % (1-10) Eosinophils % (Manual) 0 % (0-3) Basophils % (Manual) 0 % (0-2) Band Neutrophils 7 % (0-8) Platelet Estimate Decreased L Platelet Morphology Normal Hypochromasia 2+ Anisocytosis 1+ Ovalocytes 1+ Megan Cells Occasional Sodium Level 142 MMOL/L (136-145) Potassium Level 3.6 MMOL/L (3.5-5.1) Chloride Level 111 MMOL/L (98-107) H Carbon Dioxide Level 17 MMOL/L (21-32) L Anion Gap 14 mmol/L (5-15) Blood Urea Nitrogen 47 mg/dL (7-18) H Creatinine 1.3 MG/DL (0.55-1.30) Estimat Glomerular Filtration Rate mL/min (>60) Glucose Level 352 MG/DL (74-106) #H Calcium Level 8.0 MG/DL (8.5-10.1) L Phosphorus Level 3.6 MG/DL (2.5-4.9) Magnesium Level 1.6 MG/DL (1.8-2.4) L Total Bilirubin 1.4 MG/DL (0.2-1.0) H Direct Bilirubin 1.0 MG/DL (0.0-0.3) H Aspartate Amino Transf (AST/SGOT) 68 U/L (15-37) H Alanine Aminotransferase (ALT/SGPT) 54 U/L (12-78) Alkaline Phosphatase 90 U/L (46-116) Troponin I 0.062 ng/mL (0.000-0.056) Total Protein 5.1 G/DL (6.4-8.2) L Albumin 1.5 G/DL (3.4-5.0) L Globulin 3.6 g/dL Albumin/Globulin Ratio 0.4 (1.0-2.7) L Height (Feet): 5 Height (Inches): 6.00 Weight (Pounds): 150 Medications Current Medications Medications (Trade) Dose Ordered Sig/Yi Route PRN Reason Start Time Stop Time Status Last Admin Dose Admin Acetaminophen (Tylenol) 650 mg Q4H PRN ORAL T>100.5 06/24/18 13:30 07/24/18 13:29 Albuterol/ Ipratropium (Albuterol/ Ipratropium) 3 ml Q4H PRN HHN Shortness of Breath 06/24/18 13:30 06/29/18 13:29 Cefepime HCl 1 gm/ Dextrose 55 ml @ 110 mls/hr Q24H IVPB 06/25/18 16:00 07/02/18 15:59 Clonidine HCl (Catapres Tab) 0.1 mg Q8H PRN ORAL SBP>160mmHg 06/24/18 17:00 07/24/18 16:59 Dextrose (Dextrose 50%) 25 ml Q30M PRN IV Hypoglycemia 06/24/18 13:45 07/24/18 13:30 Dextrose (Dextrose 50%) 50 ml ONCE PRN IV HYPOGLYCEMIA 06/25/18 06:00 07/25/18 05:59 Dextrose (Dextrose 50%) 50 ml Q30M PRN IV hypoglycemia 06/24/18 13:45 07/24/18 13:44 06/25/18 12:08 Dextrose/Sodium Chloride 1,000 ml @ 100 mls/hr Q10H IV 06/25/18 07:00 07/25/18 06:59 06/25/18 10:22 Heparin Sodium (Porcine) (Heparin 5000 units/ml) 5,000 units EVERY 12 HOURS SUBQ 06/24/18 21:00 07/24/18 20:59 06/24/18 22:08 Insulin Aspart (NovoLOG) BEFORE MEALS AND HS SUBQ 06/24/18 16:30 07/24/18 16:29 Lorazepam (Ativan) 1 mg Q6H PRN ORAL For Anxiety 06/25/18 11:00 07/02/18 10:59 Mirtazapine (Remeron) 7.5 mg BEDTIME ORAL 06/25/18 21:00 07/25/18 20:59 Morphine Sulfate (Morphine Sulfate) 2 mg Q4H PRN IVP Moderate Pain (Pain Scale 4-6) 06/24/18 13:30 07/01/18 13:29 06/24/18 22:15 Olanzapine (ZyPREXA) 2.5 mg BID ORAL 06/25/18 11:00 07/25/18 10:59 Ondansetron HCl (Zofran) 4 mg Q6H PRN IVP Nausea & Vomiting 06/24/18 13:30 07/24/18 13:29 Phenazopyridine HCl (Pyridium) 100 mg DAILYPRN PRN ORAL dysuria 06/24/18 13:30 07/24/18 13:29 Polyethylene Glycol (Miralax) 17 gm DAILYPRN PRN ORAL Constipation 06/24/18 13:30 07/24/18 13:29 Temazepam (Restoril) 15 mg HSPRN PRN ORAL Insomnia 06/24/18 21:00 07/01/18 20:59 Vancomycin HCl (Vanco rx to dose) 1 ea DAILY PRN MISC . 06/24/18 14:45 07/24/18 14:44 Vancomycin HCl 750 mg/Sodium Chloride 275 ml @ 183.333 mls/hr Q24H IVPB 06/25/18 17:00 06/30/18 16:59 Assessment/Plan Problem List: (1) Sepsis ICD Codes: A41.9 - Sepsis, unspecified organism SNOMED: 36548987 (2) Sacral decubitus ulcer, stage III Assessment & Plan: DTPI sacrum.Maroon- indurated discoloration with opening at sacral coccygeal area(L)3.8cm x (W)1.4cm with entire wound measuring (L)10cmx(W) 12cm.Small amt malodorous brown exudate. Stable dry eschar R heel with dry peeling skin periwound (L)2cm x (W)3.5cm. Periwound is also red and boggy. Small dry eschar noted to lateral R 5th metatarsal (L)1.4cm x (W)0.3cm. L heel is boggy but colour is dusky . Resolving skin tear lateral R tibia. Wound bed is clean and dry. Tx. Plan: Cleanse Sacral wound with Saline.Apply Therahoney to opening at sacrococcygeal area.Cavilon skin barrier to DTPI. Cover with Optifoam drsg .Change Daily and prn. Apply Betadine to R heel and Lateral R 5th metatarsal.Cover with Abd pad .Wrap with kerlix daily and prn. Apply Cavilon Skin Barrier to L heel.Cover with Optifoam drsg .Change every 7 days and prn. Reposition at least every 2hours or as tolerated. Off-load heels with pillow. ICD Codes: L89.153 - Pressure ulcer of sacral region, stage 3 SNOMED: 342124616, 749037553 (3) Rectal bleed ICD Codes: K62.5 - Hemorrhage of anus and rectum SNOMED: 19733649 (4) Protein-calorie malnutrition, severe ICD Codes: E43 - Unspecified severe protein-calorie malnutrition SNOMED: 106096537 (5) Dehydration ICD Codes: E86.0 - Dehydration SNOMED: 70210651 Sher Younger Jun 25, 2018 12:27
[2018-06-25] MEDS ORDERED: Miralax 17gm pkt ORAL PRN (12:53)
--- NOTE | 2018-06-25 12:55 | NUR ---
NURSE NOTES: Transferring patient to [facility] [id number], md Mancera placed order for NG-Tube placement and xray to confirm placement
--- NOTE | 2018-06-25 13:17 | NUR ---
RD ASSESSMENT & RECOMMENDATIONS SEE CARE ACTIVITY FOR COMPLETE ASSESSMENT DAILY ESTIMATED NEEDS: Needs based on Wound, DM, wasting, sepsis / 55kg 30-35 kcals/kg 9548-4551 total kcals 1.25-2 g protein/kg 69-110 g total protein 25-30 mL/kg 4312-2914 total fluid mLs NUTRITION DIAGNOSIS: * Increased kcal/prot needs R/T wound healing as evidenced by pt w/ stage 3 sacral wound per MD CURRENT DIET:NPO ENTERAL NUTRITION RECOMMENDATIONS: Glucerna 1.5 @47ml/hr x24 hrs to provide 1128ml, 1692 kcal, 93g prot, 856ml free H2O - Obtain GI access, start Glucerna 1.5 @17ml/hr for 6 hrs - Advance 10ml/hr q4-6 hrs to goal as tolerated. TF at goal meets 100% est needs - Flush per MD. HOB over 30 degrees ADDITIONAL RECOMMENDATIONS: * RE-calibrate bedscale for accurate CBW * Wound healing: add MVI w/ min 1 tab QD, Vit C 250mg BID, [place]ano 1pkt BID + ZnSO4 220mg daily * Lytes daily, replete as needed * CAD ADMINISTRATOR eval/ currently NPO * TF recs as above as needed/ if part of POC
[2018-06-25] MEDS: D5 1/2NS 1,000 ML IV SCH ×2 (13:19→23:08)
--- NOTE | 2018-06-25 13:27 | NUR ---
NURSE NOTES: Pt is transferred to the floor via gurney. Received report form SOILA Yusuf. Pt is in the bed. Confused, on the RA. No s/s of respiratory distress or discomfort noted. Pictures had been taken earlier today and uploaded. Belongings reviewed and accounted for. Bed is in the lowest position. Call light is within the reach. Will continue to monitor.
[2018-06-25] MEDS ORDERED: Albuterol/Ipratropium 3ml neb HHN PRN (13:30)
--- NOTE | 2018-06-25 13:45 | NUR ---
NURSE NOTES: Talked to Eliana, speech therapist. Per Eliana, no swallow eval will be done till Thursday and we should proceed with the NG tube placement.
--- NOTE | 2018-06-25 14:14 | NUR ---
CASE MANAGEMENT: REVIEW 82/F BIBA FROM [facility] CC: WEAKNESS SI: DEHYDRATION . SEPSIS . SACRAL DECUBITUS ULCER, STAGE III T 99.5 HR 68 RR 20 BP 100/64 SAT 98% ROOM AIR WBC 14.6 H/H 11.3/36.4 LACTIC ACID 3.30 IS: NS IVF BOLUS X1 MAXIPIME IV X1 VANCO IV X1 INTERQUAL CRITERIA MET: PATIENT ADMITTED TO MED/SURG UNIT 06/24/2018 DCP: PATIENT IS FROM [facility]
--- NOTE | 2018-06-25 14:57 | NUR ---
NURSE NOTES:WOUND CARE NOTES:PT presents with DTPI sacrum.Maroon- indurated discoloration with opening at sacral coccygeal area(L)3.8cm x (W)1.4cm with entire wound measuring (L)10cmx(W)12cm.Small amt malodorous brown exudate.Stable dry eschar R heel with dry peeling skin periwound (L)2cm x (W)3.5cm. Periwound is also red and boggy. Small dry eschar noted to lateral R 5th metatarsal (L)1.4cm x (W)0.3cm. L heel is boggy but colour is dusky . Resolving skin tear lateral R tibia. Wound bed is clean and dry. Tx. Plan:Cleanse Sacral wound with Saline.Apply Therahoney to opening at sacrococcygeal area.Cavilon skin barrier to DTPI. Cover with Optifoam drsg .Change Daily and prn. Apply Betadine to R heel and Lateral R 5th metatarsal.Cover with Abd pad .Wrap with kerlix daily and prn. Apply CAvilon Skin Barrier to L heel.Cover with Optifoam drsg .Change every 7 days and prn. Reposition at least every 2hours or as tolerated. Off-load heels with pillow.
--- NOTE | 2018-06-25 15:34 | NUR ---
Social Work This Sw received a consult due to end of life decision making. Patient is not able to swallow and will require NG for nutrition. Patient is from [facility], with daughter, Celine Bernal ([phone]) listed as her contact. This SW made attempts to contact daughter; left message and awaiting call return at this time. -East finance and administration manager, Johnnie also explains they will continue making efforts to locate family as well. POLST stating full code, full treatment at this time.
--- NOTE | 2018-06-25 15:37 | Consultation ---
History of Present Illness General Date patient seen: Jun 24, 2018 Chief Complaint: General Complaint Reason for Consultation: Sepsis Present Illness HPI 82-year-old female with hx of mmp and dementia who presents with chief complaint of generalized weakness and decreased oral intake. the pt was yelling and screaming she was agitated and was unable to provide hx. Allergies: Coded Allergies: No Known Allergies (Unverified , 08/10/13) Medication History Scheduled Ascorbic Acid* (Ascorbic Acid*), 500 MG ORAL DAILY, (Reported) Aspirin (Aspirin EC), 81 MG ORAL DAILY, (Reported) Atenolol* (Tenormin*), 50 MG ORAL BID, (Reported) Atorvastatin Calcium* (Atorvastatin Calcium*), 20 MG ORAL BEDTIME, (Reported) Cholecalciferol (Vitamin D3)* (Vitamin D*), 2,000 UNITS ORAL DAILY, (Reported) Clonazepam* (Klonopin*), 0.5 MG ORAL Q6H, (Reported) Clonidine Hcl* (Catapres*), 0.1 MG ORAL EVERY 8 HOURS, (Reported) Clopidogrel* (Clopidogrel*), 75 MG ORAL DAILY, (Reported) Dicyclomine Hcl* (Dicyclomine Hcl*), 10 MG PO QID Famotidine (Pepcid), 20 MG ORAL BEDTIME Furosemide* (Lasix*), 40 MG ORAL DAILY, (Reported) Losartan Potassium* (Losartan Potassium*), 25 MG ORAL DAILY, (Reported) Metformin Hcl* (Metformin Hcl*), 500 MG ORAL TWICE A DAY, (Reported) Mirtazapine* (Mirtazapine*), 15 MG ORAL BEDTIME, (Reported) Potassium Chloride (Potassium Chloride), 10 MEQ ORAL DAILY, (Reported) Rosuvastatin Calcium* (Crestor*), 10 MG ORAL DAILY, (Reported) Sitagliptin Phos/Metformin Hcl (Janumet Xr 50-1,000 Mg Tablet), 1 TAB ORAL DAILY , (Reported) Trazodone* (Trazodone*), 50 MG ORAL BEDTIME, (Reported) Vancomycin HCl (Vancocin HCl), 1,000 MG IV DAILY, (Reported) Vitamin D (Vitamin D3), 5,000 UNITS ORAL DAILY, (Reported) Zinc Sulfate (Zinc Sulfate*), 220 MG ORAL DAILY, (Reported) Scheduled PRN Haloperidol* (Haldol*), 5 MG IM EVERY 6 HOURS PRN for Agitation, (Reported) Hydrocodone Bit/Acetaminophen 5-325* ([place] 5-325*), 1 TAB ORAL Q6H PRN for For Pain Lorazepam* (Lorazepam*), 2 MG ORAL THREE TIMES A DAY PRN for For Anxiety, ( Reported) Miscellaneous Medications Apixaban (Eliquis), 5 MG PO, (Reported) Patient History Limited by: medical condition History Provided By: Medical Record, PMD Healthcare decision maker Resuscitation status Full Code Advanced Directive on File Past Medical/Surgical History Past Medical/Surgical History: (1) Sepsis (2) ATN (acute tubular necrosis) (3) Dehydration (4) Weakness (5) Delirium (6) Acute on chronic systolic CHF (congestive heart failure) (7) Colitis (8) Diabetes mellitus, type II (9) Psychosis (10) DVT of left axillary vein, acute (11) Sick sinus syndrome (12) CAD (coronary artery disease) (13) HTN (hypertension) (14) Pacemaker (15) Fracture of femoral neck, right, closed (16) UTI (urinary tract infection) (17) Protein-calorie malnutrition, severe (18) Pulmonary hypertension (19) Aortic stenosis (20) Alzheimer's dementia (21) Sacral decubitus ulcer, stage III (22) Rectal bleed (23) Severe anemia Review of Systems Psychiatric: Reports: prior hx, anxiety, emotional problems, hallucinations Physical Exam General Appearance: alert, lethargic - waxing and waning of conciousness , confused, agitated Last 24 Hour Vital Signs Date Time Temp Pulse Resp B/P (MAP) Pulse Ox O2 Delivery O2 Flow Rate FiO2 06/25/18 12:00 98.6 62 20 122/75 (91) 98 06/25/18 08:51 Room Air 06/25/18 08:00 98.9 70 19 125/74 (91) 92 06/25/18 07:56 70 06/25/18 04:00 65 06/25/18 04:00 97.6 20 112/56 (74) 95 06/25/18 00:00 61 06/25/18 00:00 97.5 71 20 122/54 (76) 95 06/24/18 22:45 97.2 06/24/18 22:42 Room Air 06/24/18 20:37 97.2 86 18 128/63 100 Room Air 06/24/18 20:33 98.9 67 18 119/67 100 Room Air 06/24/18 18:05 98.9 86 18 128/63 100 Room Air 06/24/18 16:05 98.9 86 18 132/68 100 Room Air Intake and Output 06/24/18 06/25/18 19:00 07:00 Intake Total 668 ml Balance 668 ml Intake IV Total 668 ml # Voids 1 Laboratory Tests Test 06/24/18 19:20 06/24/18 19:33 06/25/18 07:15 Lactic Acid Level 3.30 mmol/L (0.4-2.0) H Urine Color Yellow Urine Appearance Clear Urine pH 5 (4.5-8.0) Urine Specific [place] 1.015 (1.005-1.035) Urine Protein 2+ (NEGATIVE) H Urine Glucose (UA) Negative (NEGATIVE) Urine Ketones 1+ (NEGATIVE) H Urine Blood 3+ (NEGATIVE) H Urine Nitrite Negative (NEGATIVE) Urine Bilirubin 1+ (NEGATIVE) H Urine Ictotest Negative (NEGATIVE) Urine Urobilinogen 4 MG/DL (0.0-1.0) H Urine Leukocyte Esterase 1+ (NEGATIVE) H Urine RBC 10-15 /HPF (0 - 2) H Urine WBC 5-10 /HPF (0 - 2) H Urine Squamous Epithelial Cells Few /LPF (NONE/OCC) Urine Bacteria Few /HPF (NONE) White Blood Count 14.9 K/UL (4.8-10.8) H Red Blood Count 3.42 M/UL (4.20-5.40) L Hemoglobin 10.0 G/DL (12.0-16.0) L Hematocrit 31.6 % (37.0-47.0) L Mean Corpuscular Volume 92 FL (80-99) Mean Corpuscular Hemoglobin 29.1 PG (27.0-31.0) Mean Corpuscular Hemoglobin Concent 31.5 G/DL (32.0-36.0) L Red Cell Distribution Width 16.0 % (11.6-14.8) H Platelet Count 105 K/UL (150-450) L Mean Platelet Volume 11.4 FL (6.5-10.1) H Neutrophils (%) (Auto) % (45.0-75.0) Lymphocytes (%) (Auto) % (20.0-45.0) Monocytes (%) (Auto) % (1.0-10.0) Eosinophils (%) (Auto) % (0.0-3.0) Basophils (%) (Auto) % (0.0-2.0) Differential Total Cells Counted 100 Neutrophils % (Manual) 89 % (45-75) H Lymphocytes % (Manual) 3 % (20-45) L Monocytes % (Manual) 1 % (1-10) Eosinophils % (Manual) 0 % (0-3) Basophils % (Manual) 0 % (0-2) Band Neutrophils 7 % (0-8) Platelet Estimate Decreased L Platelet Morphology Normal Hypochromasia 2+ Anisocytosis 1+ Ovalocytes 1+ Megan Cells Occasional Sodium Level 142 MMOL/L (136-145) Potassium Level 3.6 MMOL/L (3.5-5.1) Chloride Level 111 MMOL/L (98-107) H Carbon Dioxide Level 17 MMOL/L (21-32) L Anion Gap 14 mmol/L (5-15) Blood Urea Nitrogen 47 mg/dL (7-18) H Creatinine 1.3 MG/DL (0.55-1.30) Estimat Glomerular Filtration Rate mL/min (>60) Glucose Level 352 MG/DL (74-106) #H Calcium Level 8.0 MG/DL (8.5-10.1) L Phosphorus Level 3.6 MG/DL (2.5-4.9) Magnesium Level 1.6 MG/DL (1.8-2.4) L Total Bilirubin 1.4 MG/DL (0.2-1.0) H Direct Bilirubin 1.0 MG/DL (0.0-0.3) H Aspartate Amino Transf (AST/SGOT) 68 U/L (15-37) H Alanine Aminotransferase (ALT/SGPT) 54 U/L (12-78) Alkaline Phosphatase 90 U/L (46-116) Troponin I 0.062 ng/mL (0.000-0.056) Total Protein 5.1 G/DL (6.4-8.2) L Albumin 1.5 G/DL (3.4-5.0) L Globulin 3.6 g/dL Albumin/Globulin Ratio 0.4 (1.0-2.7) L Height (Feet): 5 Height (Inches): 6.00 Weight (Pounds): 150 Medications Current Medications Medications (Trade) Dose Ordered Sig/Yi Route PRN Reason Start Time Stop Time Status Last Admin Dose Admin Acetaminophen (Tylenol) 650 mg Q4H PRN ORAL T>100.5 06/25/18 13:30 07/24/18 13:29 Albuterol/ Ipratropium (Albuterol/ Ipratropium) 3 ml Q4H PRN HHN Shortness of Breath 06/25/18 13:30 06/29/18 13:29 Cefepime HCl 1 gm/ Dextrose 55 ml @ 110 mls/hr Q24H IVPB 06/25/18 16:00 07/02/18 15:59 Clonidine HCl (Catapres Tab) 0.1 mg Q8H PRN ORAL SBP>160mmHg 06/25/18 12:52 07/25/18 12:51 Dextrose (Dextrose 50%) 25 ml Q30M PRN IV Hypoglycemia 06/25/18 13:15 07/24/18 13:30 Dextrose (Dextrose 50%) 50 ml Q30M PRN IV hypoglycemia 06/25/18 13:15 07/24/18 13:44 Dextrose/Sodium Chloride 1,000 ml @ 100 mls/hr Q10H IV 06/25/18 12:52 07/25/18 12:51 06/25/18 13:19 Heparin Sodium (Porcine) (Heparin 5000 units/ml) 5,000 units EVERY 12 HOURS SUBQ 06/25/18 21:00 07/24/18 20:59 Insulin Aspart (NovoLOG) BEFORE MEALS AND HS SUBQ 06/25/18 16:30 07/24/18 16:29 Lorazepam (Ativan) 1 mg Q6H PRN ORAL For Anxiety 06/25/18 12:53 07/02/18 12:52 Mirtazapine (Remeron) 7.5 mg BEDTIME ORAL 06/25/18 21:00 07/25/18 20:59 Morphine Sulfate (Morphine Sulfate) 2 mg Q4H PRN IVP Moderate Pain (Pain Scale 4-6) 06/25/18 12:53 07/02/18 12:52 Olanzapine (ZyPREXA) 2.5 mg BID ORAL 06/25/18 18:00 07/25/18 10:59 Ondansetron HCl (Zofran) 4 mg Q6H PRN IVP Nausea & Vomiting 06/25/18 12:53 07/25/18 12:52 Phenazopyridine HCl (Pyridium) 100 mg DAILYPRN PRN ORAL dysuria 06/25/18 12:53 07/25/18 12:52 Polyethylene Glycol (Miralax) 17 gm DAILYPRN PRN ORAL Constipation 06/25/18 12:53 07/25/18 12:52 Temazepam (Restoril) 15 mg HSPRN PRN ORAL Insomnia 06/25/18 21:00 07/01/18 20:59 Vancomycin HCl (Vanco rx to dose) 1 ea DAILY PRN MISC . 06/26/18 09:00 07/24/18 14:44 Vancomycin HCl 750 mg/Sodium Chloride 275 ml @ 183.333 mls/hr Q24H IVPB 06/25/18 17:00 06/30/18 16:59 Assessment/Plan Problem List: (1) Acute encephalopathy Assessment & Plan: metabolic ICD Codes: G93.40 - Encephalopathy, unspecified SNOMED: 22755269, 729545184 (2) Delirium ICD Codes: R41.0 - Disorientation, unspecified SNOMED: 9677540 (3) Alzheimer's dementia ICD Codes: G30.9 - Alzheimer's disease, unspecified; F02.80 - Dementia in other diseases classified elsewhere without behavioral disturbance SNOMED: 96011825 Assessment/Plan Zyprexa the pt lacks capacity soft restraints if needed Lena Bob MD Jun 25, 2018 15:37
[2018-06-25] MEDS ORDERED: Cefepime 1gm/D5W 55ml IVPB SCH ×2 (16:00)
--- NOTE | 2018-06-25 16:43 | Diagnostic Imaging Report ---
Indication: NG tube placement Comparison: None Single view of the abdomen obtained Findings: Single view of the upper abdomen shows a nasogastric tube projected over the lower chest presumably within the esophagus. The tip is several centimeters above the EG junction. IMPRESSION: Nasogastric tube tip is likely within the distal esophagus several centimeters above the EG junction.
--- NOTE | 2018-06-25 16:48 | Internal Med Progress Note ---
Subjective Physician Name Carlos Alberto Berkowitz Attending Physician Carlos Alberto Berkowitz MD Current Medications Medications (Trade) Dose Ordered Sig/Yi Route PRN Reason Start Time Stop Time Status Last Admin Dose Admin Acetaminophen (Tylenol) 650 mg Q4H PRN ORAL T>100.5 06/25/18 13:30 07/24/18 13:29 Albuterol/ Ipratropium (Albuterol/ Ipratropium) 3 ml Q4H PRN HHN Shortness of Breath 06/25/18 13:30 06/29/18 13:29 Cefepime HCl 1 gm/ Dextrose 55 ml @ 110 mls/hr Q24H IVPB 06/25/18 16:00 07/02/18 15:59 Clonidine HCl (Catapres Tab) 0.1 mg Q8H PRN ORAL SBP>160mmHg 06/25/18 12:52 07/25/18 12:51 Dextrose (Dextrose 50%) 25 ml Q30M PRN IV Hypoglycemia 06/25/18 13:15 07/24/18 13:30 Dextrose (Dextrose 50%) 50 ml Q30M PRN IV hypoglycemia 06/25/18 13:15 07/24/18 13:44 Dextrose/Sodium Chloride 1,000 ml @ 100 mls/hr Q10H IV 06/25/18 12:52 07/25/18 12:51 06/25/18 13:19 Heparin Sodium (Porcine) (Heparin 5000 units/ml) 5,000 units EVERY 12 HOURS SUBQ 06/25/18 21:00 07/24/18 20:59 Insulin Aspart (NovoLOG) BEFORE MEALS AND HS SUBQ 06/25/18 16:30 07/24/18 16:29 Lorazepam (Ativan) 1 mg Q6H PRN ORAL For Anxiety 06/25/18 12:53 07/02/18 12:52 Mirtazapine (Remeron) 7.5 mg BEDTIME ORAL 06/25/18 21:00 07/25/18 20:59 Morphine Sulfate (Morphine Sulfate) 2 mg Q4H PRN IVP Moderate Pain (Pain Scale 4-6) 06/25/18 12:53 07/02/18 12:52 Olanzapine (ZyPREXA) 2.5 mg BID ORAL 06/25/18 18:00 07/25/18 10:59 Ondansetron HCl (Zofran) 4 mg Q6H PRN IVP Nausea & Vomiting 06/25/18 12:53 07/25/18 12:52 Phenazopyridine HCl (Pyridium) 100 mg DAILYPRN PRN ORAL dysuria 06/25/18 12:53 07/25/18 12:52 Polyethylene Glycol (Miralax) 17 gm DAILYPRN PRN ORAL Constipation 06/25/18 12:53 07/25/18 12:52 Temazepam (Restoril) 15 mg HSPRN PRN ORAL Insomnia 06/25/18 21:00 07/01/18 20:59 Vancomycin HCl (Vanco rx to dose) 1 ea DAILY PRN MISC . 06/26/18 09:00 07/24/18 14:44 Vancomycin HCl 750 mg/Sodium Chloride 275 ml @ 183.333 mls/hr Q24H IVPB 06/25/18 17:00 06/30/18 16:59 Allergies: Coded Allergies: No Known Allergies (Unverified , 08/10/13) Subjective Patient is awake and more responsive, no chest pain, no shortness of breath, feeling very weak, Objective Last Vital Signs Date Time Temp Pulse Resp B/P (MAP) Pulse Ox O2 Delivery O2 Flow Rate FiO2 06/25/18 16:00 97.7 77 20 120/72 (88) 96 06/25/18 08:51 Room Air Laboratory Tests Test 06/24/18 19:20 06/24/18 19:33 06/25/18 07:15 Lactic Acid Level 3.30 mmol/L (0.4-2.0) H Urine Color Yellow Urine Appearance Clear Urine pH 5 (4.5-8.0) Urine Specific [place] 1.015 (1.005-1.035) Urine Protein 2+ (NEGATIVE) H Urine Glucose (UA) Negative (NEGATIVE) Urine Ketones 1+ (NEGATIVE) H Urine Blood 3+ (NEGATIVE) H Urine Nitrite Negative (NEGATIVE) Urine Bilirubin 1+ (NEGATIVE) H Urine Ictotest Negative (NEGATIVE) Urine Urobilinogen 4 MG/DL (0.0-1.0) H Urine Leukocyte Esterase 1+ (NEGATIVE) H Urine RBC 10-15 /HPF (0 - 2) H Urine WBC 5-10 /HPF (0 - 2) H Urine Squamous Epithelial Cells Few /LPF (NONE/OCC) Urine Bacteria Few /HPF (NONE) White Blood Count 14.9 K/UL (4.8-10.8) H Red Blood Count 3.42 M/UL (4.20-5.40) L Hemoglobin 10.0 G/DL (12.0-16.0) L Hematocrit 31.6 % (37.0-47.0) L Mean Corpuscular Volume 92 FL (80-99) Mean Corpuscular Hemoglobin 29.1 PG (27.0-31.0) Mean Corpuscular Hemoglobin Concent 31.5 G/DL (32.0-36.0) L Red Cell Distribution Width 16.0 % (11.6-14.8) H Platelet Count 105 K/UL (150-450) L Mean Platelet Volume 11.4 FL (6.5-10.1) H Neutrophils (%) (Auto) % (45.0-75.0) Lymphocytes (%) (Auto) % (20.0-45.0) Monocytes (%) (Auto) % (1.0-10.0) Eosinophils (%) (Auto) % (0.0-3.0) Basophils (%) (Auto) % (0.0-2.0) Differential Total Cells Counted 100 Neutrophils % (Manual) 89 % (45-75) H Lymphocytes % (Manual) 3 % (20-45) L Monocytes % (Manual) 1 % (1-10) Eosinophils % (Manual) 0 % (0-3) Basophils % (Manual) 0 % (0-2) Band Neutrophils 7 % (0-8) Platelet Estimate Decreased L Platelet Morphology Normal Hypochromasia 2+ Anisocytosis 1+ Ovalocytes 1+ Megan Cells Occasional Sodium Level 142 MMOL/L (136-145) Potassium Level 3.6 MMOL/L (3.5-5.1) Chloride Level 111 MMOL/L (98-107) H Carbon Dioxide Level 17 MMOL/L (21-32) L Anion Gap 14 mmol/L (5-15) Blood Urea Nitrogen 47 mg/dL (7-18) H Creatinine 1.3 MG/DL (0.55-1.30) Estimat Glomerular Filtration Rate mL/min (>60) Glucose Level 352 MG/DL (74-106) #H Calcium Level 8.0 MG/DL (8.5-10.1) L Phosphorus Level 3.6 MG/DL (2.5-4.9) Magnesium Level 1.6 MG/DL (1.8-2.4) L Total Bilirubin 1.4 MG/DL (0.2-1.0) H Direct Bilirubin 1.0 MG/DL (0.0-0.3) H Aspartate Amino Transf (AST/SGOT) 68 U/L (15-37) H Alanine Aminotransferase (ALT/SGPT) 54 U/L (12-78) Alkaline Phosphatase 90 U/L (46-116) Troponin I 0.062 ng/mL (0.000-0.056) Total Protein 5.1 G/DL (6.4-8.2) L Albumin 1.5 G/DL (3.4-5.0) L Globulin 3.6 g/dL Albumin/Globulin Ratio 0.4 (1.0-2.7) L Microbiology Date/Time Source Procedure Growth Status 06/24/18 12:07 Blood Blood Culture - Preliminary Resulted 06/24/18 12:07 Blood Blood Culture - Preliminary Resulted Intake and Output 06/24/18 06/25/18 19:00 07:00 Intake Total 668 ml Balance 668 ml Intake IV Total 668 ml # Voids 1 Objective General: No acute distress, awake and more responsive, opening her eyes, cachectic. HEENT: NCAT, sclera anicteric, PERRL, EOMI. Neck: Supple, no significant jugular venous distention, Lungs: Poor inspiratory effort, decreased air in the bases , no Wheeze or Rales. Heart: Regular rate and rhythm, normal S1/S2, no murmur. Abdomen: soft, nontender, nondistended. Normoactive bowel sounds. / Rectal: Refused and deferred. Extremities: No Cyanosis , clubbing or edema. Lateral lower extremity / feet dressing intact. Neuro: A&O x 3, Able to move all extremities slowly Skin: warm, no rashes or lesions, ecchymosis in bilateral upper extremity noted. Assessment/Plan Assessment/Plan 1. Sepsis /gram positive cocci bacteremia, lactic acidosis. 2. Failure to thrive with severe protein calorie malnutrition. 3. Coronary artery disease. 4. Diabetes, type 2. 5. Hypertension. 6. Sick sinus syndrome. 7. Hypercholesterolemia. 8. Aortic stenosis. 9. Pulmonary hypertension. 10. Alzheimer dementia. 11. Acute tubular necrosis/acute kidney injury most likely secondary to dehydration and sepsis. TREATMENT: 1. Patient on broad spectrum antibiotics with vancomycin and cefepime. Monitor culture. 2. Coronary artery disease. The patient is status post coronary artery bypass graft in 2017. 3. Diabetes, type 2. The patient has been started on NovoLog sliding scale. Januvia and metformin have been discontinued, as the patient is not tolerating p.o. well. 4. Hypertension. The patient is to continue on atenolol and losartan as above. 5. Sick sinus syndrome. The patient is status post pacemaker implantation. 6. Hypercholesterolemia. Continue simvastatin as above. 7. Aortic stenosis. 8. Pulmonary hypertension. 9. Alzheimer dementia. CODE STATUS is full code as per POL, DVT prophylaxis: Heparin subcu. Carlos Alberto Berkowitz MD Jun 25, 2018 16:48
[2018-06-25] MEDS ORDERED: Vancomycin 750mg/NS 275ml IVPB SCH ×2 (17:00)
[2018-06-25] MEDS: Cefepime HCl 1 GM in D5W 55 ML IVPB SCH (17:15)
[2018-06-25] MEDS: OLANZapine 2.5mg tab ORAL SCH (18:00)
[2018-06-25] MEDS: Vancomycin 750 MG in NS 275 ML IVPB SCH (18:05)
--- NOTE | 2018-06-25 19:42 | NUR ---
HAND-OFF: Report given to SOILA Odell.
--- NOTE | 2018-06-25 20:03 | Diagnostic Imaging Report ---
History: NGT Exam: XR ABDOMEN single image Comparison: FINDINGS/IMPRESSION: Nasogastric tube tip either at the antrum of the distal stomach or duodenal bulb with side-port over the distal stomach.
--- NOTE | 2018-06-25 20:15 | NUR ---
NURSE NOTES: RT at bedside, patient 02 sat 35-40%, Dr Berkowitz called. ABG stat and CXR ordered by Dr. Berkowitz.
--- NOTE | 2018-06-25 21:00 | NUR ---
NURSE NOTES: Pt 02 sat now at 96-99%. Stable VS. Dr Berkowitz aware. No s/s of acute distress. NG placement confirmed via ABD xray. Called Dr Mancera for NG feeding orders.
--- NOTE | 2018-06-25 21:50 | Diagnostic Imaging Report ---
History: SOB Exam: XR CXR 1 VIEW Comparison: 06/24/2018 FINDINGS: Mild patchy right base opacity may represent atelectasis or developing infiltrate. The left lung appears clear. Cardiac silhouette appears unchanged with again note of multilead pacemakers. Nasogastric tube is seen at the second portion of the duodenum and tip extends off the inferior edge of film. IMPRESSION: Mild patchy right base opacity may represent atelectasis or developing infiltrate. The left lung appears clear. Cardiac silhouette appears unchanged with again note of multilead pacemakers. Nasogastric tube is seen at the second portion of the duodenum and tip extends off the inferior edge of film.
[2018-06-26] VITALS: BP 108/48
[2018-06-26] MEDS: LORazepam 1mg tab ORAL PRN ×2 (03:13→22:50)
[2018-06-26 04:00] VITALS: BP 106/54
[2018-06-26] MEDS: NovoLOG Insulin Flexpen SUBQ SCH ×3 (05:41→16:30)
[2018-06-26] MEDS ORDERED: 1/2 NS 1000ml IV ONE (07:47)
[2018-06-26 08:00] VITALS: BP 126/66
--- NOTE | 2018-06-26 08:16 | NUR ---
HAND-OFF: Report given to SOILA Blair.
--- NOTE | 2018-06-26 08:20 | NUR ---
NURSE NOTES: Patient recievd on bed, asleep. IV sites intact and patent. NG tube in place. Bed in low and locked position, call light within reach. No signs of respiratory distress or pain. Room board updated, will continue to monitor.
[2018-06-26] MEDS: D5 1/2NS 1,000 ML IV SCH ×2 (08:52→14:41)
[2018-06-26] MEDS: Heparin 5000 units/ml inj SUBQ SCH ×2 (09:00→20:54)
[2018-06-26] MEDS: OLANZapine 2.5mg tab ORAL SCH ×2 (09:30→17:08)
[2018-06-26 12:00] VITALS: BP 118/69
[2018-06-26] MEDS: Morphine Sulfate 2mg/ml Inj(IV/IM USE ONLY) IVP PRN ×2 (12:02→20:49)
--- NOTE | 2018-06-26 12:22 | NUR ---
NURSE NOTES: Patient bedside glucose was 46. Dextrose given and bedside glucose is now 82. Message left for MD Berkowitz. Awaiting any further orders. Charge nurse Sandy made aware.
--- NOTE | 2018-06-26 12:54 | Surgery Progress Note ---
Surgery Progress Note Subjective Additional Comments no acute events. leukocytosis. abnormal LFT's. Objective Last 24 Hour Vital Signs Date Time Temp Pulse Resp B/P (MAP) Pulse Ox O2 Delivery O2 Flow Rate FiO2 06/26/18 09:00 Room Air 06/26/18 08:00 97.4 73 18 126/66 (86) 98 06/26/18 04:00 97.7 68 20 106/54 (71) 97 06/26/18 00:00 97.8 70 20 108/48 (68) 95 06/25/18 21:00 Room Air 06/25/18 20:00 98.6 84 20 142/88 (106) 96 06/25/18 19:48 76 20 Room Air 21 06/25/18 16:00 97.7 77 20 120/72 (88) 96 06/25/18 13:45 98.2 73 20 133/99 (110) 98 I&O Intake and Output 06/25/18 06/26/18 19:00 07:00 Intake Total 510 ml 983.333 ml Balance 510 ml 983.333 ml Intake IV Total 510 ml 983.333 ml # Voids 2 Dressing: dry Wound: other Drains: other Cardiovascular: RSR Respiratory: clear Abdomen: soft, present bowel sounds, non-distended Extremities: other Laboratory Tests Test 06/25/18 20:15 Arterial Blood pH 7.468 (7.350-7.450) Arterial Blood Partial Pressure CO2 22.2 mmHg (35.0-45.0) *L Arterial Blood Partial Pressure O2 499.7 mmHg (75.0-100.0) H Arterial Blood HCO3 15.7 mmol/L (22.0-26.0) *L Arterial Blood Oxygen Saturation 99.2 % (95-100) Arterial Blood Base Excess -6.7 (-2-2) L Feroz Test Positive Plan Problems: (1) Sepsis Assessment & Plan: Leukocytosis LFT's elevated w/ t bili / d bili AM labs ordered hydrate Ultrasound abdomen ordered will follow with recs. (2) Sacral decubitus ulcer, stage III Assessment & Plan: DTPI sacrum.Maroon- indurated discoloration with opening at sacral coccygeal area(L)3.8cm x (W)1.4cm with entire wound measuring (L)10cmx(W) 12cm.Small amt malodorous brown exudate. Stable dry eschar R heel with dry peeling skin periwound (L)2cm x (W)3.5cm. Periwound is also red and boggy. Small dry eschar noted to lateral R 5th metatarsal (L)1.4cm x (W)0.3cm. L heel is boggy but colour is dusky . Resolving skin tear lateral R tibia. Wound bed is clean and dry. Tx. Plan: Cleanse Sacral wound with Saline.Apply Therahoney to opening at sacrococcygeal area.Cavilon skin barrier to DTPI. Cover with Optifoam drsg .Change Daily and prn. Apply Betadine to R heel and Lateral R 5th metatarsal.Cover with Abd pad .Wrap with kerlix daily and prn. Apply Cavilon Skin Barrier to L heel.Cover with Optifoam drsg .Change every 7 days and prn. Reposition at least every 2hours or as tolerated. Off-load heels with pillow. (3) Rectal bleed (4) Protein-calorie malnutrition, severe (5) Dehydration Sher Younger Jun 26, 2018 12:54
--- NOTE | 2018-06-26 13:25 | Pulmonology Progress Note ---
Assessment/Plan Problems: (1) Sepsis (2) ATN (acute tubular necrosis) (3) Pulmonary hypertension (4) Pacemaker (5) CAD (coronary artery disease) (6) Sacral decubitus ulcer, stage III (7) Alzheimer's dementia (8) Protein-calorie malnutrition, severe (9) HTN (hypertension) Assessment/Plan d/w wound care nurse, mckeon cultures iv fluids check electrolytes sliding scale check electrolytes daily broad spectrum abx dvt prophylaxis insulin coverage. social service consult Subjective ROS Limited/Unobtainable: No Constitutional: Reports: no symptoms HEENT: Repors: no symptoms Respiratory: Reports: no symptoms Allergies: Coded Allergies: No Known Allergies (Unverified , 08/10/13) Objective Last 24 Hour Vital Signs Date Time Temp Pulse Resp B/P (MAP) Pulse Ox O2 Delivery O2 Flow Rate FiO2 06/26/18 12:00 97.1 68 20 118/69 (85) 94 06/26/18 09:00 Room Air 06/26/18 08:00 97.4 73 18 126/66 (86) 98 06/26/18 04:00 97.7 68 20 106/54 (71) 97 06/26/18 00:00 97.8 70 20 108/48 (68) 95 06/25/18 21:00 Room Air 06/25/18 20:00 98.6 84 20 142/88 (106) 96 06/25/18 19:48 76 20 Room Air 21 06/25/18 16:00 97.7 77 20 120/72 (88) 96 06/25/18 13:45 98.2 73 20 133/99 (110) 98 Intake and Output 06/25/18 06/26/18 19:00 07:00 Intake Total 510 ml 983.333 ml Balance 510 ml 983.333 ml Intake IV Total 510 ml 983.333 ml # Voids 2 Objective General Appearance: cachectic HEENT: normocephalic, somnolent Respiratory/Chest: chest wall non-tender, lungs clear Cardiovascular: normal peripheral pulses, normal rate Abdomen: normal bowel sounds, soft, non tender Extremities: no cyanosis Skin: no rash Microbiology Date/Time Source Procedure Growth Status 06/24/18 12:07 Blood Blood Culture - Preliminary Staphylococcus Aureus Resulted 06/24/18 12:07 Blood Blood Culture - Preliminary Staphylococcus Aureus Resulted 06/25/18 05:30 Wound Gram Stain - Final Resulted 06/25/18 05:30 Wound Culture - Preliminary Gram Negative Beka Staphylococcus Aureus Resulted 06/24/18 13:00 Nasal Nares MRSA Culture - Final Staphylococcus Aureus - Mrsa Complete Laboratory Tests 06/25/18 20:15: Arterial Blood pH 7.468H, Arterial Blood Partial Pressure CO2 22.2*L, Arterial Blood Partial Pressure O2 499.7H, Arterial Blood HCO3 15.7*L, Arterial Blood Oxygen Saturation 99.2, Arterial Blood Base Excess -6.7L, Feroz Test Positive Current Medications Medications (Trade) Dose Ordered Sig/Yi Route PRN Reason Start Time Stop Time Status Last Admin Dose Admin Acetaminophen (Tylenol) 650 mg Q4H PRN ORAL T>100.5 06/25/18 13:30 07/24/18 13:29 Albuterol/ Ipratropium (Albuterol/ Ipratropium) 3 ml Q4H PRN HHN Shortness of Breath 06/25/18 13:30 06/29/18 13:29 Cefepime HCl 1 gm/ Dextrose 55 ml @ 110 mls/hr Q24H IVPB 06/25/18 16:00 07/02/18 15:59 06/25/18 17:15 Clonidine HCl (Catapres Tab) 0.1 mg Q8H PRN ORAL SBP>160mmHg 06/25/18 12:52 07/25/18 12:51 Dextrose (Dextrose 50%) 25 ml Q30M PRN IV Hypoglycemia 06/25/18 13:15 07/24/18 13:30 Dextrose (Dextrose 50%) 50 ml Q30M PRN IV hypoglycemia 06/25/18 13:15 07/24/18 13:44 06/26/18 11:50 Dextrose/Sodium Chloride 1,000 ml @ 100 mls/hr Q10H IV 06/25/18 12:52 07/25/18 12:51 06/25/18 23:08 Heparin Sodium (Porcine) (Heparin 5000 units/ml) 5,000 units EVERY 12 HOURS SUBQ 06/25/18 21:00 07/24/18 20:59 06/25/18 21:54 Insulin Aspart (NovoLOG) BEFORE MEALS AND HS SUBQ 06/25/18 16:30 07/24/18 16:29 06/26/18 05:41 Lorazepam (Ativan) 1 mg Q6H PRN ORAL For Anxiety 06/25/18 12:53 07/02/18 12:52 06/26/18 03:13 Mirtazapine (Remeron) 7.5 mg BEDTIME ORAL 06/25/18 21:00 07/25/18 20:59 06/25/18 22:52 Morphine Sulfate (Morphine Sulfate) 2 mg Q4H PRN IVP Moderate Pain (Pain Scale 4-6) 06/25/18 12:53 07/02/18 12:52 06/26/18 12:02 Olanzapine (ZyPREXA) 2.5 mg BID ORAL 06/25/18 18:00 07/25/18 10:59 06/26/18 09:30 Ondansetron HCl (Zofran) 4 mg Q6H PRN IVP Nausea & Vomiting 06/25/18 12:53 07/25/18 12:52 Phenazopyridine HCl (Pyridium) 100 mg DAILYPRN PRN ORAL dysuria 06/25/18 12:53 07/25/18 12:52 Polyethylene Glycol (Miralax) 17 gm DAILYPRN PRN ORAL Constipation 06/25/18 12:53 07/25/18 12:52 Temazepam (Restoril) 15 mg HSPRN PRN ORAL Insomnia 06/25/18 21:00 07/01/18 20:59 Vancomycin HCl (Vanco rx to dose) 1 ea DAILY PRN MISC . 06/26/18 09:00 07/24/18 14:44 Vancomycin HCl 750 mg/Sodium Chloride 275 ml @ 183.333 mls/hr Q24H IVPB 06/25/18 17:00 06/30/18 16:59 06/25/18 18:05 Rod Mancera MD Jun 26, 2018 13:25
--- NOTE | 2018-06-26 14:30 | NUR ---
NURSE NOTES: Started tube feeding Glucerna 1.5 at 10mL/hour. Goal is 47mL/hour. Patient tolerating well.
[2018-06-26 16:00] VITALS: BP 143/76
[2018-06-26] MEDS: Cefepime HCl 1 GM in D5W 55 ML IVPB SCH (16:30)
[2018-06-26] MEDS: Vancomycin 750 MG in NS 275 ML IVPB SCH (17:08)
--- NOTE | 2018-06-26 19:30 | NUR ---
HAND-OFF: Report given to SOILA Dunham.
--- NOTE | 2018-06-26 19:39 | NUR ---
NURSE NOTES: Received patient in bed, non verbal. On NG tube feeding, currently running at 20cc/hr, goal to be 47cc/hr. No S/Sx of aspiration, HOB remaining up. IV on L IJ intact, patent running fluids. Wound dressing intact, dry. Bed in lowest position, locked, alarms on. Call light in reach.
[2018-06-26 20:00] VITALS: BP 132/80
--- NOTE | 2018-06-26 22:09 | General Progress Note ---
Assessment/Plan Problem List: (1) Acute encephalopathy Assessment & Plan: metabolic ICD Codes: G93.40 - Encephalopathy, unspecified SNOMED: 92276057, 154951035 (2) Delirium ICD Codes: R41.0 - Disorientation, unspecified SNOMED: 7969178 (3) Alzheimer's dementia ICD Codes: G30.9 - Alzheimer's disease, unspecified; F02.80 - Dementia in other diseases classified elsewhere without behavioral disturbance SNOMED: 66093839 Assessment/Plan Zyprexa the pt lacks capacity soft restraints if needed Subjective Allergies: Coded Allergies: No Known Allergies (Unverified , 08/10/13) Subjective calmer was not yelling as much Objective Last 24 Hour Vital Signs Date Time Temp Pulse Resp B/P (MAP) Pulse Ox O2 Delivery O2 Flow Rate FiO2 06/26/18 21:00 Room Air 06/26/18 20:00 70 20 Room Air 21 06/26/18 20:00 98.8 70 21 132/80 (97) 99 06/26/18 16:00 97.8 83 18 143/76 (98) 96 06/26/18 12:00 97.1 68 20 118/69 (85) 94 06/26/18 09:00 Room Air 06/26/18 08:00 97.4 73 18 126/66 (86) 98 06/26/18 04:00 97.7 68 20 106/54 (71) 97 06/26/18 00:00 97.8 70 20 108/48 (68) 95 Intake and Output 06/25/18 06/26/18 19:00 07:00 Intake Total 510 ml 983.333 ml Balance 510 ml 983.333 ml IV Total 510 ml 983.333 ml # Voids 2 Laboratory Tests 06/26/18 16:15: Vancomycin Level Trough 15.4H Height (Feet): 5 Height (Inches): 6.00 Weight (Pounds): 150 General Appearance: alert, confused, agitated Lena Bob MD Jun 26, 2018 22:09
--- NOTE | 2018-06-26 23:47 | Internal Med Progress Note ---
Subjective Physician Name Carlos Alberto Berkowitz Attending Physician Carlos Alberto Berkowitz MD Current Medications Medications (Trade) Dose Ordered Sig/Yi Route PRN Reason Start Time Stop Time Status Last Admin Dose Admin Acetaminophen (Tylenol) 650 mg Q4H PRN ORAL T>100.5 06/25/18 13:30 07/24/18 13:29 Albuterol/ Ipratropium (Albuterol/ Ipratropium) 3 ml Q4H PRN HHN Shortness of Breath 06/25/18 13:30 06/29/18 13:29 Cefepime HCl 1 gm/ Dextrose 55 ml @ 110 mls/hr Q24H IVPB 06/25/18 16:00 07/02/18 15:59 06/26/18 16:30 Clonidine HCl (Catapres Tab) 0.1 mg Q8H PRN ORAL SBP>160mmHg 06/25/18 12:52 07/25/18 12:51 Dextrose (Dextrose 50%) 25 ml Q30M PRN IV Hypoglycemia 06/25/18 13:15 07/24/18 13:30 Dextrose (Dextrose 50%) 50 ml Q30M PRN IV hypoglycemia 06/25/18 13:15 07/24/18 13:44 06/26/18 11:50 Dextrose/Sodium Chloride 1,000 ml @ 100 mls/hr Q10H IV 06/25/18 12:52 07/25/18 12:51 06/26/18 14:41 Heparin Sodium (Porcine) (Heparin 5000 units/ml) 5,000 units EVERY 12 HOURS SUBQ 06/25/18 21:00 07/24/18 20:59 06/25/18 21:54 Insulin Aspart (NovoLOG) EVERY 6 HOURS SUBQ 06/27/18 00:00 07/24/18 16:29 Lorazepam (Ativan) 1 mg Q6H PRN ORAL For Anxiety 06/25/18 12:53 07/02/18 12:52 06/26/18 22:50 Mirtazapine (Remeron) 7.5 mg BEDTIME ORAL 06/25/18 21:00 07/25/18 20:59 06/26/18 20:48 Morphine Sulfate (Morphine Sulfate) 2 mg Q4H PRN IVP Moderate Pain (Pain Scale 4-6) 06/25/18 12:53 07/02/18 12:52 2/9/19 20:49 Olanzapine (ZyPREXA) 2.5 mg BID ORAL 06/25/18 18:00 07/25/18 10:59 06/26/18 17:08 Ondansetron HCl (Zofran) 4 mg Q6H PRN IVP Nausea & Vomiting 06/25/18 12:53 07/25/18 12:52 Phenazopyridine HCl (Pyridium) 100 mg DAILYPRN PRN ORAL dysuria 06/25/18 12:53 07/25/18 12:52 Polyethylene Glycol (Miralax) 17 gm DAILYPRN PRN ORAL Constipation 06/25/18 12:53 07/25/18 12:52 Temazepam (Restoril) 15 mg HSPRN PRN ORAL Insomnia 06/25/18 21:00 07/01/18 20:59 Vancomycin HCl (Vanco rx to dose) 1 ea DAILY PRN MISC . 06/26/18 09:00 07/24/18 14:44 Vancomycin HCl 750 mg/Sodium Chloride 275 ml @ 183.333 mls/hr Q24H IVPB 06/25/18 17:00 06/30/18 16:59 06/26/18 17:08 Allergies: Coded Allergies: No Known Allergies (Unverified , 08/10/13) Subjective Awake and responsive,with open eyes, NAD, agitated., Objective Last Vital Signs Date Time Temp Pulse Resp B/P (MAP) Pulse Ox O2 Delivery O2 Flow Rate FiO2 06/26/18 21:00 Room Air 06/26/18 20:00 70 20 21 06/26/18 20:00 98.8 132/80 (97) 99 Laboratory Tests Test 06/26/18 16:15 Vancomycin Level Trough 15.4 ug/mL (5.0-12.0) H Microbiology Date/Time Source Procedure Growth Status 06/24/18 12:07 Blood Blood Culture - Preliminary Staphylococcus Aureus Resulted 06/24/18 12:07 Blood Blood Culture - Preliminary Staphylococcus Aureus Resulted 06/25/18 05:30 Wound Gram Stain - Final Resulted 06/25/18 05:30 Wound Culture - Preliminary Gram Negative Beka Staphylococcus Aureus Resulted 06/24/18 13:00 Nasal Nares MRSA Culture - Final Staphylococcus Aureus - Mrsa Complete Intake and Output 2/8/19 2/9/19 19:00 07:00 Intake Total 510 ml 983.333 ml Balance 510 ml 983.333 ml IV Total 510 ml 983.333 ml # Voids 2 Objective General: No acute distress, awake and responsive, opening her eyes, cachectic. HEENT: NCAT, sclera anicteric, PERRL, NG tube. Neck: Supple, no significant jugular venous distention, Lungs: Poor inspiratory effort, decreased air in the bases , no Wheeze or Rales. Heart: Regular rate and rhythm, normal S1/S2, no murmur. Abdomen: soft, nontender, nondistended. Normoactive bowel sounds. / Rectal: Refused and deferred. Extremities: No Cyanosis , No clubbing, Left UE edema. Lateral lower extremity / feet dressing intact. Neuro: A&O x 1, Able to move all extremities Skin: warm, no rashes or lesions, ecchymosis in bilateral upper extremity noted. Assessment/Plan Assessment/Plan 1. Sepsis / STAPHYLOCOCCUS AUREUS bacteremia, lactic acidosis. 2. Failure to thrive with severe protein calorie malnutrition. 3. Coronary artery disease. 4. Diabetes, type 2. 5. Hypertension. 6. Sick sinus syndrome. 7. Hypercholesterolemia. 8. Aortic stenosis. 9. Pulmonary hypertension. 10. Alzheimer dementia. 11. Acute tubular necrosis/acute kidney injury most likely secondary to dehydration and sepsis. 12. Sacral decubitus ulcer, stage III 13. Severe dehydration TREATMENT: 1. Patient on broad spectrum antibiotics with vancomycin and cefepime. Monitor culture. 2. Coronary artery disease. The patient is status post coronary artery bypass graft in 2017. 3. Diabetes, type 2. The patient has been started on NovoLog sliding scale. Januvia and metformin have been discontinued, as the patient is not tolerating p.o. well. 4. Hypertension. The patient is to continue on atenolol and losartan as above. 5. Sick sinus syndrome. The patient is status post pacemaker implantation. 6. Hypercholesterolemia. Continue simvastatin as above. 7. Aortic stenosis. 8. Pulmonary hypertension. 9. Alzheimer dementia. CODE STATUS is full code as per POL, DVT prophylaxis: Heparin subcu. Carlos Alberto Berkowitz MD Jun 26, 2018 23:47
[2018-06-27] VITALS (7 sets, daily range): BP systolic 124–143; BP diastolic 61–88
--- NOTE | 2018-06-27 01:00 | NUR ---
NURSE NOTES: Patient noted with low blood sugar of 63 at 0020. 25ml dextrose given and blood sugar noted 140 at 0035. Currently NG tube feeding running glucerna 1.5 at 30cc/hr, goal to be 47cc/hr. IV intact, patent running D5 1/2 NS 100cc/hr. Asymptomatic, V/S stable. Left message to Dr Berkowitz and Dr Mancera.
[2018-06-27] MEDS: D5 1/2NS 1,000 ML IV SCH ×2 (03:42→12:43)
[2018-06-27] MEDS: NovoLOG Insulin Flexpen SUBQ SCH ×4 (05:47→17:26)
[2018-06-27] MEDS: Morphine Sulfate 2mg/ml Inj(IV/IM USE ONLY) IVP PRN ×3 (05:54→17:30)
[2018-06-27 07:06] LABS: HEMOGLOBIN 8.8 G/DL (12.0-16.0); MEAN CORPUSCULAR VOLUME 91 FL (80-99); PLATELET COUNT 43 K/UL (150-450); RED BLOOD COUNT 2.97 M/UL (4.20-5.40); RED CELL DISTRIBUTION WIDTH 16.5 % (11.6-14.8); WHITE BLOOD COUNT 10.6 K/UL (4.8-10.8)
[2018-06-27 07:08] LABS: ALANINE AMINOTRANSFERASE 117 U/L (12-78); ALBUMIN 1.4 G/DL (3.4-5.0); ALBUMIN/GLOBULIN RATIO 0.4 (1.0-2.7); ALKALINE PHOSPHATASE 175 U/L (46-116); ANION GAP 12 mmol/L (5-15); ASPARTATE AMINO TRANSFERASE 242 U/L (15-37); BILIRUBIN,TOTAL 1.7 MG/DL (0.2-1.0); BLOOD UREA NITROGEN 36 mg/dL (7-18); CARBON DIOXIDE 18 MMOL/L (21-32); CHLORIDE 112 MMOL/L (98-107); SODIUM 142 MMOL/L (136-145)
[2018-06-27 07:09] LABS: BILIRUBIN,DIRECT 1.2 MG/DL (0.0-0.3)
--- NOTE | 2018-06-27 07:37 | NUR ---
HAND-OFF: Report given to Irma CM.
--- NOTE | 2018-06-27 08:56 | Infectious Diseases Prog Note ---
Assessment/Plan Assessment/Plan 82 yo female with PMHx DM, CAD, Alzheimer dementia and Hip fracture who presents with dehydration and weakness. Septicemia - Sacral wound likely source 06/25/18 Blood Cx 06/19 MRSA 06/24/18 Wound Cx MRSA Mild leukocytosis - resolved Aferbile Positive UA CXR neg TTE to look of obvious endocarditis Will need to consider risks and benefits of NELDA if negative given Pacemaker Pressure ulcers Not infected Right hip fracture with hemiarthroplasty Feb 2018 DM HTN Sick sinus syndrome sp Pacemaker HLD CAD - SP RI and CABG Aortic stenosis. Pulmonary hypertension. Alzheimer dementia. PLAN - D/C Cefepime #3 - Start Zosyn #1 - Continue Vancomycin #3 - f/u repeat cultures - Monitor CBC and temps - wound care - Nutritional support Thank you for this consult. We will continue to follow the patient during this hospitalization. Subjective Allergies: Coded Allergies: No Known Allergies (Unverified , 08/10/13) Subjective Afebrile Leukocytosis resolved Objective Vital Signs Last 24 Hour Vital Signs Date Time Temp Pulse Resp B/P (MAP) Pulse Ox O2 Delivery O2 Flow Rate FiO2 06/27/18 04:00 99.3 90 22 131/66 (87) 100 06/27/18 00:00 99.1 72 21 132/88 (103) 100 06/26/18 21:00 Room Air 06/26/18 20:00 70 20 Room Air 21 06/26/18 20:00 98.8 70 21 132/80 (97) 99 06/26/18 16:00 97.8 83 18 143/76 (98) 96 06/26/18 12:00 97.1 68 20 118/69 (85) 94 06/26/18 09:00 Room Air Height (Feet): 5 Height (Inches): 6.00 Weight (Pounds): 150 Objective Gen: Moaning, Awake but no following HEENT: NCAT, MMM, EOMI, PERRL LUNGS: CTAB, No W CARDS: RRR, S1, S2, No M/R/G, ABD: Soft, NT, ND, + BS Ext: Poor circulation to Ext (cool to touch) , Pulses 2+ B/L (DP, Rad): SKIN: Dry, No rashes, Large sacral ulcer. Mild odor no surrounding cellulitis, foot with eschar Microbiology Date/Time Source Procedure Growth Status 2/7/19 12:07 Blood Blood Culture - Final Staphylococcus Aureus - Mrsa Complete 06/24/18 12:07 Blood Blood Culture - Final Staphylococcus Aureus - Mrsa Complete 06/25/18 05:30 Wound Gram Stain - Final Complete 06/25/18 05:30 Wound Culture - Final Klebsiella Pneumoniae Escherichia Coli - Esbl Staphylococcus Aureus - Mrsa Complete 06/24/18 13:00 Nasal Nares MRSA Culture - Final Staphylococcus Aureus - Mrsa Complete Laboratory Tests Test 06/26/18 16:15 06/27/18 05:40 Vancomycin Level Trough 15.4 ug/mL (5.0-12.0) H White Blood Count 10.6 K/UL (4.8-10.8) Red Blood Count 2.97 M/UL (4.20-5.40) L Hemoglobin 8.8 G/DL (12.0-16.0) L Hematocrit 27.0 % (37.0-47.0) L Mean Corpuscular Volume 91 FL (80-99) Mean Corpuscular Hemoglobin 29.5 PG (27.0-31.0) Mean Corpuscular Hemoglobin Concent 32.5 G/DL (32.0-36.0) Red Cell Distribution Width 16.5 % (11.6-14.8) H Platelet Count 43 K/UL (150-450) L Mean Platelet Volume 11.8 FL (6.5-10.1) H Neutrophils (%) (Auto) % (45.0-75.0) Lymphocytes (%) (Auto) % (20.0-45.0) Monocytes (%) (Auto) % (1.0-10.0) Eosinophils (%) (Auto) % (0.0-3.0) Basophils (%) (Auto) % (0.0-2.0) Neutrophils % (Manual) Pending Lymphocytes % (Manual) Pending Platelet Estimate Pending Platelet Morphology Pending Sodium Level 142 MMOL/L (136-145) Potassium Level 3.0 MMOL/L (3.5-5.1) L Chloride Level 112 MMOL/L (98-107) H Carbon Dioxide Level 18 MMOL/L (21-32) L Anion Gap 12 mmol/L (5-15) Blood Urea Nitrogen 36 mg/dL (7-18) H Creatinine 1.0 MG/DL (0.55-1.30) Estimat Glomerular Filtration Rate mL/min (>60) Glucose Level 218 MG/DL (74-106) H Lactic Acid Level 2.60 mmol/L (0.4-2.0) H Calcium Level 8.0 MG/DL (8.5-10.1) L Total Bilirubin 1.7 MG/DL (0.2-1.0) H Direct Bilirubin 1.2 MG/DL (0.0-0.3) H Aspartate Amino Transf (AST/SGOT) 242 U/L (15-37) H Alanine Aminotransferase (ALT/SGPT) 117 U/L (12-78) H Alkaline Phosphatase 175 U/L (46-116) H Total Protein 5.1 G/DL (6.4-8.2) L Albumin 1.4 G/DL (3.4-5.0) L Globulin 3.7 g/dL Albumin/Globulin Ratio 0.4 (1.0-2.7) L Lipase 58 U/L (73-393) L Current Medications Medications (Trade) Dose Ordered Sig/Yi Route PRN Reason Start Time Stop Time Status Last Admin Dose Admin Acetaminophen (Tylenol) 650 mg Q4H PRN ORAL T>100.5 06/25/18 13:30 07/24/18 13:29 Albuterol/ Ipratropium (Albuterol/ Ipratropium) 3 ml Q4H PRN HHN Shortness of Breath 06/25/18 13:30 06/29/18 13:29 Cefepime HCl 1 gm/ Dextrose 55 ml @ 110 mls/hr Q24H IVPB 06/25/18 16:00 07/02/18 15:59 06/26/18 16:30 Clonidine HCl (Catapres Tab) 0.1 mg Q8H PRN ORAL SBP>160mmHg 06/25/18 12:52 07/25/18 12:51 Dextrose (Dextrose 50%) 25 ml Q30M PRN IV Hypoglycemia 06/25/18 13:15 07/24/18 13:30 06/27/18 00:21 Dextrose (Dextrose 50%) 50 ml Q30M PRN IV hypoglycemia 06/25/18 13:15 07/24/18 13:44 06/26/18 11:50 Dextrose/Sodium Chloride 1,000 ml @ 100 mls/hr Q10H IV 06/25/18 12:52 07/25/18 12:51 06/27/18 03:42 Heparin Sodium (Porcine) (Heparin 5000 units/ml) 5,000 units EVERY 12 HOURS SUBQ 06/25/18 21:00 07/24/18 20:59 06/25/18 21:54 Insulin Aspart (NovoLOG) EVERY 6 HOURS SUBQ 06/27/18 00:00 07/24/18 16:29 Lorazepam (Ativan) 1 mg Q6H PRN ORAL For Anxiety 06/25/18 12:53 07/02/18 12:52 06/26/18 22:50 Mirtazapine (Remeron) 7.5 mg BEDTIME ORAL 06/25/18 21:00 07/25/18 20:59 06/26/18 20:48 Morphine Sulfate (Morphine Sulfate) 2 mg Q4H PRN IVP Moderate Pain (Pain Scale 4-6) 06/25/18 12:53 07/02/18 12:52 06/27/18 05:54 Olanzapine (ZyPREXA) 2.5 mg BID ORAL 06/25/18 18:00 07/25/18 10:59 06/26/18 17:08 Ondansetron HCl (Zofran) 4 mg Q6H PRN IVP Nausea & Vomiting 06/25/18 12:53 07/25/18 12:52 Phenazopyridine HCl (Pyridium) 100 mg DAILYPRN PRN ORAL dysuria 06/25/18 12:53 07/25/18 12:52 Polyethylene Glycol (Miralax) 17 gm DAILYPRN PRN ORAL Constipation 06/25/18 12:53 07/25/18 12:52 Temazepam (Restoril) 15 mg HSPRN PRN ORAL Insomnia 06/25/18 21:00 07/01/18 20:59 Vancomycin HCl (Vanco rx to dose) 1 ea DAILY PRN MISC . 06/26/18 09:00 07/24/18 14:44 Vancomycin HCl 750 mg/Sodium Chloride 275 ml @ 183.333 mls/hr Q24H IVPB 06/25/18 17:00 06/30/18 16:59 06/26/18 17:08 Johnnie Alberts MD Jun 27, 2018 08:56
[2018-06-27] MEDS: Heparin 5000 units/ml inj SUBQ SCH ×2 (09:00→21:00)
[2018-06-27] MEDS: OLANZapine 2.5mg tab ORAL SCH ×2 (09:31→17:24)
[2018-06-27] MEDS: LORazepam 1mg tab ORAL PRN (09:34)
[2018-06-27] MEDS ORDERED: D5 1/2NS 1000ml IV ONE (10:25)
[2018-06-27] MEDS: Piperacillin/Tazobactam 3.375 GM in D5W 110 ML IVPB SCH ×2 (12:27→22:28)
--- NOTE | 2018-06-27 12:50 | Cardiology Report ---
APPROVED REPORT EXAM: Two-dimensional and M-mode echocardiogram with Doppler and color Doppler. INDICATION ENDOCARDITIS M-Mode DIMENSIONS IVSd1.3 (0.7-1.1cm)Left Atrium (MM)4.4 (1.6-4.0cm) LVDd5.1 (3.5-5.6cm)Aortic Root3.0 (2.0-3.7cm) PWd1.1 (0.7-1.1cm)Aortic Cusp Exc.1.3 (1.5-2.0cm) IVSs1.7 cm LVDs4.2 (2.5-4.0cm) PWs1.0 cm Technically difficult study due to patient's contractures.. Global left ventricular hypokinesis . Mild left ventricular enlargement . Left ventricular ejection fraction estimated to be 20-25%. Mild left ventricular hypertrophy. No evidence of pericardial fat or effusion. Mild bi- atrial enlargement. Right ventricular chamber sizes is within normal limits. Aortic valve calcification with decreased cusp excursion c/w aortic stenosis. Mildly thickened mitral valve leaflets with normal excursion. Mild mitral annulus and aortic root calcification. Pulmonic valve not well visualized. Subcostal views are not obtained . Pacemaker wire present in the right side chambers. A color flow and spectral Doppler study was performed and revealed: Trace aortic insufficiency . Peak aortic valve gradient of 13 mm Hg and a mean of 7 mmHg. Aortic valve area 1.4 cm2 calculated by continuity equation. Mitral diastolic velocities suggest reduced left ventricular relaxation c/w mild LV diastolic dysfunction (Grade I ) Mild mitral regurgitation. Moderate tricuspid regurgitation. Tricuspid systolic velocities suggests peak right ventricular systolic pressure of 77mmHg,consistent with severe pulmonary hypertension . Mild pulmonic regurgitation .
--- NOTE | 2018-06-27 13:09 | Cardiology Report ---
APPROVED REPORT EKG Measurement Heart [id number] Normal sinus rhythm Left axis deviation Nonspecific intraventricular block Possible Lateral infarct, age undetermined Abnormal ECG
--- NOTE | 2018-06-27 13:29 | Internal Med Progress Note ---
Subjective Physician Name Carlos Alberto Berkowitz Attending Physician Carlos Alberto Berkowitz MD Current Medications Medications (Trade) Dose Ordered Sig/Yi Route PRN Reason Start Time Stop Time Status Last Admin Dose Admin Acetaminophen (Tylenol) 650 mg Q4H PRN ORAL T>100.5 06/25/18 13:30 07/24/18 13:29 Albuterol/ Ipratropium (Albuterol/ Ipratropium) 3 ml Q4H PRN HHN Shortness of Breath 06/25/18 13:30 06/29/18 13:29 Clonidine HCl (Catapres Tab) 0.1 mg Q8H PRN ORAL SBP>160mmHg 06/25/18 12:52 07/25/18 12:51 Dextrose (Dextrose 50%) 25 ml Q30M PRN IV Hypoglycemia 06/25/18 13:15 07/24/18 13:30 06/27/18 00:21 Dextrose (Dextrose 50%) 50 ml Q30M PRN IV hypoglycemia 06/25/18 13:15 07/24/18 13:44 06/26/18 11:50 Dextrose/Sodium Chloride 1,000 ml @ 100 mls/hr Q10H IV 06/25/18 12:52 07/25/18 12:51 06/27/18 12:43 Heparin Sodium (Porcine) (Heparin 5000 units/ml) 5,000 units EVERY 12 HOURS SUBQ 06/25/18 21:00 07/24/18 20:59 06/25/18 21:54 Insulin Aspart (NovoLOG) EVERY 6 HOURS SUBQ 06/27/18 00:00 07/24/18 16:29 06/27/18 12:47 Lorazepam (Ativan) 1 mg Q6H PRN ORAL For Anxiety 06/25/18 12:53 07/02/18 12:52 06/27/18 09:34 Mirtazapine (Remeron) 7.5 mg BEDTIME ORAL 06/25/18 21:00 07/25/18 20:59 06/26/18 20:48 Morphine Sulfate (Morphine Sulfate) 2 mg Q4H PRN IVP Moderate Pain (Pain Scale 4-6) 06/25/18 12:53 07/02/18 12:52 06/27/18 12:43 Olanzapine (ZyPREXA) 2.5 mg BID ORAL 06/25/18 18:00 3/10/19 10:59 06/27/18 09:31 Ondansetron HCl (Zofran) 4 mg Q6H PRN IVP Nausea & Vomiting 06/25/18 12:53 07/25/18 12:52 Phenazopyridine HCl (Pyridium) 100 mg DAILYPRN PRN ORAL dysuria 06/25/18 12:53 07/25/18 12:52 Piperacillin Sod/ Tazobactam Sod 3.375 gm/Dextrose 110 ml @ 27.5 mls/hr EVERY 8 HOURS IVPB 06/27/18 11:00 07/02/18 10:59 06/27/18 12:27 Polyethylene Glycol (Miralax) 17 gm DAILYPRN PRN ORAL Constipation 06/25/18 12:53 07/25/18 12:52 Temazepam (Restoril) 15 mg HSPRN PRN ORAL Insomnia 06/25/18 21:00 07/01/18 20:59 Vancomycin HCl (Vanco rx to dose) 1 ea DAILY PRN MISC . 06/26/18 09:00 07/24/18 14:44 Vancomycin HCl 750 mg/Sodium Chloride 275 ml @ 183.333 mls/hr Q24H IVPB 06/25/18 17:00 06/30/18 16:59 06/26/18 17:08 Allergies: Coded Allergies: No Known Allergies (Unverified , 08/10/13) Subjective Awake and less responsive, sleepy., K: 3.0, abnormal liver function test Objective Last Vital Signs Date Time Temp Pulse Resp B/P (MAP) Pulse Ox O2 Delivery O2 Flow Rate FiO2 06/27/18 09:00 Room Air 06/27/18 08:15 76 20 21 06/27/18 08:00 97.4 126/61 (82) 98 Laboratory Tests Test 06/26/18 16:15 06/27/18 05:40 06/27/18 10:20 Vancomycin Level Trough 15.4 ug/mL (5.0-12.0) H White Blood Count 10.6 K/UL (4.8-10.8) Red Blood Count 2.97 M/UL (4.20-5.40) L Hemoglobin 8.8 G/DL (12.0-16.0) L Hematocrit 27.0 % (37.0-47.0) L Mean Corpuscular Volume 91 FL (80-99) Mean Corpuscular Hemoglobin 29.5 PG (27.0-31.0) Mean Corpuscular Hemoglobin Concent 32.5 G/DL (32.0-36.0) Red Cell Distribution Width 16.5 % (11.6-14.8) H Platelet Count 43 K/UL (150-450) L Mean Platelet Volume 11.8 FL (6.5-10.1) H Neutrophils (%) (Auto) % (45.0-75.0) Lymphocytes (%) (Auto) % (20.0-45.0) Monocytes (%) (Auto) % (1.0-10.0) Eosinophils (%) (Auto) % (0.0-3.0) Basophils (%) (Auto) % (0.0-2.0) Differential Total Cells Counted 100 Neutrophils % (Manual) 89 % (45-75) H Lymphocytes % (Manual) 1 % (20-45) L Monocytes % (Manual) 3 % (1-10) Eosinophils % (Manual) 0 % (0-3) Basophils % (Manual) 0 % (0-2) Band Neutrophils 7 % (0-8) Platelet Estimate Decreased L Platelet Morphology Normal Anisocytosis 1+ Megan Cells 1+ Sodium Level 142 MMOL/L (136-145) Potassium Level 3.0 MMOL/L (3.5-5.1) L Chloride Level 112 MMOL/L (98-107) H Carbon Dioxide Level 18 MMOL/L (21-32) L Anion Gap 12 mmol/L (5-15) Blood Urea Nitrogen 36 mg/dL (7-18) H Creatinine 1.0 MG/DL (0.55-1.30) Estimat Glomerular Filtration Rate mL/min (>60) Glucose Level 218 MG/DL (74-106) H Lactic Acid Level 2.60 mmol/L (0.4-2.0) H 2.50 mmol/L (0.66-2.22) H Calcium Level 8.0 MG/DL (8.5-10.1) L Total Bilirubin 1.7 MG/DL (0.2-1.0) H Direct Bilirubin 1.2 MG/DL (0.0-0.3) H Aspartate Amino Transf (AST/SGOT) 242 U/L (15-37) H Alanine Aminotransferase (ALT/SGPT) 117 U/L (12-78) H Alkaline Phosphatase 175 U/L (46-116) H Total Protein 5.1 G/DL (6.4-8.2) L Albumin 1.4 G/DL (3.4-5.0) L Globulin 3.7 g/dL Albumin/Globulin Ratio 0.4 (1.0-2.7) L Lipase 58 U/L (73-393) L Microbiology Date/Time Source Procedure Growth Status 06/25/18 05:30 Wound Gram Stain - Final Complete 06/25/18 05:30 Wound Culture - Final Klebsiella Pneumoniae Escherichia Coli - Esbl Staphylococcus Aureus - Mrsa Complete Intake and Output 06/26/18 06/27/18 19:00 07:00 Intake Total 780.000 ml 1620 ml Balance 780.000 ml 1620 ml Intake Free Water 100 ml 100 ml IV Total 630.000 ml 1200 ml Tube Feeding 50 ml 320 ml Objective General: No acute distress, awake and less responsive, Sleepy, cachectic. HEENT: NCAT, sclera anicteric, PERRL, NG tube. Neck: Supple, no significant jugular venous distention, Lungs: Poor inspiratory effort, decreased air in the bases , no Wheeze or Rales. Heart: Regular rate and rhythm, normal S1/S2, no murmur. Abdomen: soft, nontender, nondistended. Normoactive bowel sounds. / Rectal: Refused and deferred. Extremities: No Cyanosis , No clubbing, Left UE edema. Lateral lower extremity / feet dressing intact. Neuro: A&O x 1, Able to move all extremities Skin: warm, no rashes or lesions, ecchymosis in bilateral upper extremity noted. Assessment/Plan Assessment/Plan 1. Sepsis / STAPHYLOCOCCUS AUREUS bacteremia, lactic acidosis. 2. Failure to thrive with severe protein calorie malnutrition. 3. Coronary artery disease. 4. Diabetes, type 2. 5. Hypertension. 6. Sick sinus syndrome. 7. Hypercholesterolemia. 8. Aortic stenosis. 9. Pulmonary hypertension. 10. Alzheimer dementia. 11. Acute tubular necrosis/acute kidney injury most likely secondary to dehydration and sepsis. 12. Sacral decubitus ulcer, stage III 13. Severe dehydration 14. Hypokalemia. 15. Abnormal liver function test TREATMENT: 1. Patient on broad spectrum antibiotics with vancomycin and Zosyn IV. Monitor culture. 2. Coronary artery disease. The patient is status post coronary artery bypass graft in 2017. 3. Diabetes, type 2. The patient has been started on NovoLog sliding scale. 4. Hypertension. The patient is to continue on atenolol and losartan as above. 5. Sick sinus syndrome. The patient is status post pacemaker implantation. 6. Hypercholesterolemia. Continue simvastatin as above. 7. Aortic stenosis. 8. Pulmonary hypertension. 9. Alzheimer dementia. KCl supplement, will follow her laboratory as well as culture in the morning. Continue tube feeding at rate of 45 cc/hr. CODE STATUS is full code as per ARLET, DVT prophylaxis: Heparin subcu. Carlos Alberto Berkowitz MD Jun 27, 2018 13:29
--- NOTE | 2018-06-27 13:33 | NUR ---
CASE MANAGEMENT: REVIEW 06/27/2018 SI: DEHYDRATION . SEPSIS . SACRAL DECUBITUS ULCER, STAGE III T 97.4 HR 76 RR 18 B/P 126/61 SATS 98% ON RA K 3 CL 112 CO2 18 BUN 36 GLUCOSE 218 LACTIC ACID 2.6 CA 8 TBILI 1.7 DBILI 1.2 AST 242 ALT 117 ALP 175 IS: IVF @ 100 mL/HR INSULIN ASPART SUBQ Q6H ZOSYN IV Q8H K DUR PO BID VANCO IV Q24H MED/SURG STATUS DCP: PATIENT IS FROM [facility]
--- NOTE | 2018-06-27 13:59 | Surgery Progress Note ---
Surgery Progress Note Subjective Additional Comments no acute events. stable. comfortable. Objective Last 24 Hour Vital Signs Date Time Temp Pulse Resp B/P (MAP) Pulse Ox O2 Delivery O2 Flow Rate FiO2 06/27/18 13:13 97.4 06/27/18 09:00 Room Air 06/27/18 08:15 76 20 Room Air 21 06/27/18 08:00 97.4 76 18 126/61 (82) 98 06/27/18 04:00 99.3 90 22 131/66 (87) 100 06/27/18 00:00 99.1 72 21 132/88 (103) 100 06/26/18 21:00 Room Air 06/26/18 20:00 70 20 Room Air 21 06/26/18 20:00 98.8 70 21 132/80 (97) 99 06/26/18 16:00 97.8 83 18 143/76 (98) 96 I&O Intake and Output 06/26/18 06/27/18 19:00 07:00 Intake Total 780.000 ml 1620 ml Balance 780.000 ml 1620 ml Intake Free Water 100 ml 100 ml IV Total 630.000 ml 1200 ml Tube Feeding 50 ml 320 ml Dressing: dry Wound: other Drains: other Cardiovascular: RSR Respiratory: clear Abdomen: soft, flat, present bowel sounds, non-distended Extremities: other Laboratory Tests Test 06/26/18 16:15 06/27/18 05:40 06/27/18 10:20 Vancomycin Level Trough 15.4 ug/mL (5.0-12.0) H White Blood Count 10.6 K/UL (4.8-10.8) Red Blood Count 2.97 M/UL (4.20-5.40) L Hemoglobin 8.8 G/DL (12.0-16.0) L Hematocrit 27.0 % (37.0-47.0) L Mean Corpuscular Volume 91 FL (80-99) Mean Corpuscular Hemoglobin 29.5 PG (27.0-31.0) Mean Corpuscular Hemoglobin Concent 32.5 G/DL (32.0-36.0) Red Cell Distribution Width 16.5 % (11.6-14.8) H Platelet Count 43 K/UL (150-450) L Mean Platelet Volume 11.8 FL (6.5-10.1) H Neutrophils (%) (Auto) % (45.0-75.0) Lymphocytes (%) (Auto) % (20.0-45.0) Monocytes (%) (Auto) % (1.0-10.0) Eosinophils (%) (Auto) % (0.0-3.0) Basophils (%) (Auto) % (0.0-2.0) Differential Total Cells Counted 100 Neutrophils % (Manual) 89 % (45-75) H Lymphocytes % (Manual) 1 % (20-45) L Monocytes % (Manual) 3 % (1-10) Eosinophils % (Manual) 0 % (0-3) Basophils % (Manual) 0 % (0-2) Band Neutrophils 7 % (0-8) Platelet Estimate Decreased L Platelet Morphology Normal Anisocytosis 1+ [place] Cells 1+ Sodium Level 142 MMOL/L (136-145) Potassium Level 3.0 MMOL/L (3.5-5.1) L Chloride Level 112 MMOL/L (98-107) H Carbon Dioxide Level 18 MMOL/L (21-32) L Anion Gap 12 mmol/L (5-15) Blood Urea Nitrogen 36 mg/dL (7-18) H Creatinine 1.0 MG/DL (0.55-1.30) Estimat Glomerular Filtration Rate mL/min (>60) Glucose Level 218 MG/DL (74-106) H Lactic Acid Level 2.60 mmol/L (0.4-2.0) H 2.50 mmol/L (0.66-2.22) H Calcium Level 8.0 MG/DL (8.5-10.1) L Total Bilirubin 1.7 MG/DL (0.2-1.0) H Direct Bilirubin 1.2 MG/DL (0.0-0.3) H Aspartate Amino Transf (AST/SGOT) 242 U/L (15-37) H Alanine Aminotransferase (ALT/SGPT) 117 U/L (12-78) H Alkaline Phosphatase 175 U/L (46-116) H Total Protein 5.1 G/DL (6.4-8.2) L Albumin 1.4 G/DL (3.4-5.0) L Globulin 3.7 g/dL Albumin/Globulin Ratio 0.4 (1.0-2.7) L Lipase 58 U/L (73-393) L Plan Problems: (1) Sepsis Assessment & Plan: Leukocytosis LFT's elevated w/ t bili / d bili AM labs ordered hydrate Ultrasound abdomen ordered will follow with recs. (2) Sacral decubitus ulcer, stage III Assessment & Plan: DTPI sacrum.Maroon- indurated discoloration with opening at sacral coccygeal area(L)3.8cm x (W)1.4cm with entire wound measuring (L)10cmx(W) 12cm.Small amt malodorous brown exudate. Stable dry eschar R heel with dry peeling skin periwound (L)2cm x (W)3.5cm. Periwound is also red and boggy. Small dry eschar noted to lateral R 5th metatarsal (L)1.4cm x (W)0.3cm. L heel is boggy but colour is dusky . Resolving skin tear lateral R tibia. Wound bed is clean and dry. Tx. Plan: Cleanse Sacral wound with Saline.Apply Therahoney to opening at sacrococcygeal area.Cavilon skin barrier to DTPI. Cover with Optifoam drsg .Change Daily and prn. Apply Betadine to R heel and Lateral R 5th metatarsal.Cover with Abd pad .Wrap with kerlix daily and prn. Apply Cavilon Skin Barrier to L heel.Cover with Optifoam drsg .Change every 7 days and prn. Reposition at least every 2hours or as tolerated. Off-load heels with pillow. (3) Rectal bleed (4) Protein-calorie malnutrition, severe (5) Dehydration Sher Younger Jun 27, 2018 13:59
[2018-06-27] MEDS: Vancomycin 750 MG in NS 275 ML IVPB SCH (17:29)
--- NOTE | 2018-06-27 19:30 | NUR ---
HAND-OFF: Report given to SOILA Dunham.
--- NOTE | 2018-06-27 19:58 | NUR ---
RESPIRATORY NOTE: [facility]ID RESPONSE CALLED AT THIS TIME. RT PRESENT IN ROOM WHE RAPID WAS CALLED. RN COBY CAMPBELL PRESENT AND ASSISTED IN NT SX. LARGE AMOUNT OF ZAFAR SECRETIONS OBTAINED ROM THIS PT. PT WAS FOUND WITH AND INCREASED RR OF 40-44BPM. HR OF 115-112, SPO2 IN LOW 90"S ON 2LPM N/C. AND LOUD RALES BILATERALLY. PT PLACED ON VENTI MASK 8LPM 40 %. ABG DRAWN. FIO2 INCREASED TO 14LPM 55% VENTI MASK POST ABG RESULTS. BREATHING TX GIVEN AND PT CONDITION IMPROVED POST TX. CURRENT VS HR99, SPO2 97, RR 28. WILL CONTINUE TO MONITOR.
--- NOTE | 2018-06-27 20:21 | Pulmonology Progress Note ---
Assessment/Plan Problems: (1) Sepsis (2) ATN (acute tubular necrosis) (3) Pulmonary hypertension (4) Pacemaker (5) CAD (coronary artery disease) (6) Sacral decubitus ulcer, stage III (7) Alzheimer's dementia (8) Protein-calorie malnutrition, severe (9) HTN (hypertension) Assessment/Plan d/w wound care nurse, mckeon cultures iv fluids check electrolytes sliding scale check electrolytes daily broad spectrum abx dvt prophylaxis insulin coverage. social service consult Subjective ROS Limited/Unobtainable: No Interval Events: mourning Allergies: Coded Allergies: No Known Allergies (Unverified , 08/10/13) Objective Last 24 Hour Vital Signs Date Time Temp Pulse Resp B/P (MAP) Pulse Ox O2 Delivery O2 Flow Rate FiO2 06/27/18 18:00 98.1 06/27/18 16:00 98.1 76 18 126/68 (87) 94 06/27/18 12:00 97.9 80 18 124/63 (83) 98 06/27/18 09:00 Room Air 06/27/18 08:15 76 20 Room Air 21 06/27/18 08:00 97.4 76 18 126/61 (82) 98 06/27/18 04:00 99.3 90 22 131/66 (87) 100 06/27/18 00:00 99.1 72 21 132/88 (103) 100 06/26/18 21:00 Room Air Intake and Output 06/26/18 06/27/18 19:00 07:00 Intake Total 780.000 ml 1620 ml Balance 780.000 ml 1620 ml Intake Free Water 100 ml 100 ml IV Total 630.000 ml 1200 ml Tube Feeding 50 ml 320 ml Objective General Appearance: cachectic HEENT: normocephalic, somnolent Respiratory/Chest: chest wall non-tender, lungs clear Cardiovascular: normal peripheral pulses, normal rate Abdomen: normal bowel sounds, soft, non tender Extremities: no cyanosis Skin: no rash Microbiology Date/Time Source Procedure Growth Status 06/25/18 05:30 Wound Gram Stain - Final Complete 06/25/18 05:30 Wound Culture - Final Klebsiella Pneumoniae Escherichia Coli - Esbl Staphylococcus Aureus - Mrsa Complete Laboratory Tests 06/27/18 05:40: White Blood Count 10.6, Red Blood Count 2.97L, Hemoglobin 8.8L, Hematocrit 27.0L , Mean Corpuscular Volume 91, Mean Corpuscular Hemoglobin 29.5, Mean Corpuscular Hemoglobin Concent 32.5, Red Cell Distribution Width 16.5H, Platelet Count 43L, Mean Platelet Volume 11.8H, Neutrophils (%) (Auto) , Lymphocytes (%) (Auto) , Monocytes (%) (Auto) , Eosinophils (%) (Auto) , Basophils (%) (Auto) , Differential Total Cells Counted 100, Neutrophils % ( Manual) 89H, Lymphocytes % (Manual) 1L, Monocytes % (Manual) 3, Eosinophils % ( Manual) 0, Basophils % (Manual) 0, Band Neutrophils 7, Platelet Estimate DecreasedL, Platelet Morphology Normal, Anisocytosis 1+, Megan Cells 1+, Sodium Level 142, Potassium Level 3.0L, Chloride Level 112H, Carbon Dioxide Level 18L, Anion Gap 12, Blood Urea Nitrogen 36H, Creatinine 1.0, Estimat Glomerular Filtration Rate , Glucose Level 218H, Lactic Acid Level 2.60H, Calcium Level 8.0L, Total Bilirubin 1.7H, Direct Bilirubin 1.2H, Aspartate Amino Transf (AST/ SGOT) 242H, Alanine Aminotransferase (ALT/SGPT) 117H, Alkaline Phosphatase 175H , Total Protein 5.1L, Albumin 1.4L, Globulin 3.7, Albumin/Globulin Ratio 0.4L, Lipase 58L 06/27/18 10:20: Lactic Acid Level 2.50H 06/27/18 20:06: Arterial Blood pH 7.395, Arterial Blood Partial Pressure CO2 25.6L, Arterial Blood Partial Pressure O2 82.4, Arterial Blood HCO3 15.3*L, Arterial Blood Oxygen Saturation 95.0, Arterial Blood Base Excess -8.3L, Feroz Test Positive Current Medications Medications (Trade) Dose Ordered Sig/Yi Route PRN Reason Start Time Stop Time Status Last Admin Dose Admin Acetaminophen (Tylenol) 650 mg Q4H PRN ORAL T>100.5 06/25/18 13:30 07/24/18 13:29 Albuterol/ Ipratropium (Albuterol/ Ipratropium) 3 ml Q4H PRN HHN Shortness of Breath 06/25/18 13:30 06/29/18 13:29 Clonidine HCl (Catapres Tab) 0.1 mg Q8H PRN ORAL SBP>160mmHg 06/25/18 12:52 07/25/18 12:51 Dextrose (Dextrose 50%) 25 ml Q30M PRN IV Hypoglycemia 06/25/18 13:15 07/24/18 13:30 06/27/18 00:21 Dextrose (Dextrose 50%) 50 ml Q30M PRN IV hypoglycemia 06/25/18 13:15 07/24/18 13:44 06/26/18 11:50 Dextrose/Sodium Chloride 1,000 ml @ 100 mls/hr Q10H IV 06/25/18 12:52 07/25/18 12:51 06/27/18 12:43 Heparin Sodium (Porcine) (Heparin 5000 units/ml) 5,000 units EVERY 12 HOURS SUBQ 06/25/18 21:00 07/24/18 20:59 06/25/18 21:54 Insulin Aspart (NovoLOG) EVERY 6 HOURS SUBQ 06/27/18 00:00 07/24/18 16:29 06/27/18 17:26 Lorazepam (Ativan) 1 mg Q6H PRN ORAL For Anxiety 06/25/18 12:53 07/02/18 12:52 06/27/18 09:34 Morphine Sulfate (Morphine Sulfate) 2 mg Q4H PRN IVP Moderate Pain (Pain Scale 4-6) 06/25/18 12:53 07/02/18 12:52 06/27/18 17:30 Olanzapine (ZyPREXA) 2.5 mg BID ORAL 06/25/18 18:00 07/25/18 10:59 06/27/18 17:24 Ondansetron HCl (Zofran) 4 mg Q6H PRN IVP Nausea & Vomiting 06/25/18 12:53 07/25/18 12:52 Phenazopyridine HCl (Pyridium) 100 mg DAILYPRN PRN ORAL dysuria 06/25/18 12:53 07/25/18 12:52 Piperacillin Sod/ Tazobactam Sod 3.375 gm/Dextrose 110 ml @ 27.5 mls/hr EVERY 8 HOURS IVPB 06/27/18 11:00 07/02/18 10:59 06/27/18 12:27 Polyethylene Glycol (Miralax) 17 gm DAILYPRN PRN ORAL Constipation 06/25/18 12:53 07/25/18 12:52 Potassium Chloride (K-Dur) 40 meq TWICE A DAY ORAL 06/27/18 18:00 06/28/18 17:59 06/27/18 17:23 Temazepam (Restoril) 15 mg HSPRN PRN ORAL Insomnia 06/25/18 21:00 07/01/18 20:59 Vancomycin HCl (Vanco rx to dose) 1 ea DAILY PRN MISC . 06/26/18 09:00 07/24/18 14:44 Vancomycin HCl 750 mg/Sodium Chloride 275 ml @ 183.333 mls/hr Q24H IVPB 06/25/18 17:00 06/30/18 16:59 06/27/18 17:29 Rod Mancera MD Jun 27, 2018 20:21
--- NOTE | 2018-06-27 20:40 | NUR ---
NURSE NOTES: Patient noted with RR of 40-44 with gurgling breathing sound upon rounding. Stopped NG feeding, raised HOB. [employer] was called by CN. Large amt of secretion noted with oral and deep suctioning. Removed about 600cc of air from NG tube. HHN Tx and O2 via venturi mask given by RT. V/S noted [id number] on 14 lpm 55% ventri mask. Blood sugar at 186. Stat ABG and CXR taken. Dr Berkowitz was notified and agreed to transfer to [facility].
--- NOTE | 2018-06-27 20:53 | NUR ---
Nurse's notes: per Yovanny Ma, requesting photos of wounds be taken prior to transfer to [facility] s/p [employer] as this patient will be the assigned to Herson Ramírez
--- NOTE | 2018-06-27 21:20 | NUR ---
NURSE NOTES: Transferred patient to [facility] 242-1. Belongings checked. Report given to charge nurse Shakira.
--- NOTE | 2018-06-27 21:53 | General Progress Note ---
Assessment/Plan Problem List: (1) Acute encephalopathy Assessment & Plan: metabolic ICD Codes: G93.40 - Encephalopathy, unspecified SNOMED: 58059590, 962947766 (2) Delirium ICD Codes: R41.0 - Disorientation, unspecified SNOMED: 1783591 (3) Alzheimer's dementia ICD Codes: G30.9 - Alzheimer's disease, unspecified; F02.80 - Dementia in other diseases classified elsewhere without behavioral disturbance SNOMED: 88211142 Assessment/Plan Zyprexa the pt lacks capacity soft restraints if needed Subjective Neurologic/Psychiatric: Reports: anxiety Allergies: Coded Allergies: No Known Allergies (Unverified , 08/10/13) Subjective cont to be agitated Objective Last 24 Hour Vital Signs Date Time Temp Pulse Resp B/P (MAP) Pulse Ox O2 Delivery O2 Flow Rate FiO2 06/27/18 20:18 97 28 Venturi Mask 55 06/27/18 20:18 99 28 97 Venturi Mask 14.0 55 06/27/18 20:08 109 32 100 Venturi Mask 8.0 40 06/27/18 18:00 98.1 06/27/18 16:00 98.1 76 18 126/68 (87) 94 06/27/18 12:00 97.9 80 18 124/63 (83) 98 06/27/18 09:00 Room Air 06/27/18 08:15 76 20 Room Air 21 06/27/18 08:00 97.4 76 18 126/61 (82) 98 06/27/18 04:00 99.3 90 22 131/66 (87) 100 06/27/18 00:00 99.1 72 21 132/88 (103) 100 Intake and Output 06/26/18 06/27/18 19:00 07:00 Intake Total 780.000 ml 1620 ml Balance 780.000 ml 1620 ml Intake Free Water 100 ml 100 ml IV Total 630.000 ml 1200 ml Tube Feeding 50 ml 320 ml Laboratory Tests 06/27/18 05:40: White Blood Count 10.6, Red Blood Count 2.97L, Hemoglobin 8.8L, Hematocrit 27.0L , Mean Corpuscular Volume 91, Mean Corpuscular Hemoglobin 29.5, Mean Corpuscular Hemoglobin Concent 32.5, Red Cell Distribution Width 16.5H, Platelet Count 43L, Mean Platelet Volume 11.8H, Neutrophils (%) (Auto) , Lymphocytes (%) (Auto) , Monocytes (%) (Auto) , Eosinophils (%) (Auto) , Basophils (%) (Auto) , Differential Total Cells Counted 100, Neutrophils % ( Manual) 89H, Lymphocytes % (Manual) 1L, Monocytes % (Manual) 3, Eosinophils % ( Manual) 0, Basophils % (Manual) 0, Band Neutrophils 7, Platelet Estimate DecreasedL, Platelet Morphology Normal, Anisocytosis 1+, Megan Cells 1+, Sodium Level 142, Potassium Level 3.0L, Chloride Level 112H, Carbon Dioxide Level 18L, Anion Gap 12, Blood Urea Nitrogen 36H, Creatinine 1.0, Estimat Glomerular Filtration Rate , Glucose Level 218H, Lactic Acid Level 2.60H, Calcium Level 8.0L, Total Bilirubin 1.7H, Direct Bilirubin 1.2H, Aspartate Amino Transf (AST/ SGOT) 242H, Alanine Aminotransferase (ALT/SGPT) 117H, Alkaline Phosphatase 175H , Total Protein 5.1L, Albumin 1.4L, Globulin 3.7, Albumin/Globulin Ratio 0.4L, Lipase 58L 06/27/18 10:20: Lactic Acid Level 2.50H 06/27/18 20:06: Arterial Blood pH 7.395, Arterial Blood Partial Pressure CO2 25.6L, Arterial Blood Partial Pressure O2 82.4, Arterial Blood HCO3 15.3*L, Arterial Blood Oxygen Saturation 95.0, Arterial Blood Base Excess -8.3L, Feroz Test Positive Height (Feet): 5 Height (Inches): 6.00 Weight (Pounds): 150 General Appearance: alert, confused, agitated Lena Bob MD Jun 27, 2018 21:53
--- NOTE | 2018-06-27 23:00 | NUR ---
NURSE NOTES: RECEIVED PATIENT FROM 4E S/P [employer]ITE[employer] RAFTING GUIDE DUE TO INCREASED RESPIRATORY RATE 40/MIN.PATIENT OBTUNDED,MOANS WHEN TOUCH.BP 124/69 ,HR 91 SINUS ON THE MONITOR,ON VENTURI MASK 55% WITH O2 SAT 95-97%,FEBRILE 100.5. ABG RESULTS: PH 7.3;CO2 25.6;HCO3 15.3 PO2 82.0,CHEST X-RAY RESULTS SHOWS PATCHY RIGHT GREATER THAN LEFT LING BASE AIRSPACE DIS. MAY REFLECT ATELECTASIS OR PNEUMONIA .,AIRSPACE DIS. HAS PROGRESSED.PAGED AND INFORMED DR AGUILAR.
[2018-06-28] VITALS: BP 124/75
[2018-06-28] MEDS: D5 1/2NS 1,000 ML IV SCH ×3 (01:11→21:31)
[2018-06-28] MEDS: NovoLOG Insulin Flexpen SUBQ SCH ×4 (01:12→18:52)
[2018-06-28 04:00] VITALS: BP 133/71
[2018-06-28 05:23] LABS: HEMATOCRIT 22.5 % (37.0-47.0); HEMOGLOBIN 7.1 G/DL (12.0-16.0); MEAN CORPUSCULAR VOLUME 91 FL (80-99); PLATELET COUNT 20 K/UL (150-450); RED BLOOD COUNT 2.46 M/UL (4.20-5.40); RED CELL DISTRIBUTION WIDTH 16.7 % (11.6-14.8); WHITE BLOOD COUNT 6.4 K/UL (4.8-10.8)
[2018-06-28] MEDS: Piperacillin/Tazobactam 3.375 GM in D5W 110 ML IVPB SCH ×3 (05:52→21:32)
[2018-06-28] MEDS ORDERED: NovoLOG Insulin Flexpen SUBQ SCH (06:00)
[2018-06-28] MEDS ORDERED: Piperacillin/Tazobactam 3.375 GM in D5W 110 ML IVPB SCH (06:00)
[2018-06-28] MEDS ORDERED: D5 1/2NS 1,000 ML IV SCH (06:00)
[2018-06-28 06:02] LABS: ALANINE AMINOTRANSFERASE 103 U/L (12-78); ALBUMIN 1.2 G/DL (3.4-5.0); ALBUMIN/GLOBULIN RATIO 0.4 (1.0-2.7); ALKALINE PHOSPHATASE 134 U/L (46-116); ANION GAP 10 mmol/L (5-15); ASPARTATE AMINO TRANSFERASE 148 U/L (15-37); BLOOD UREA NITROGEN 36 mg/dL (7-18); CALCIUM 7.7 MG/DL (8.5-10.1); CARBON DIOXIDE 20 MMOL/L (21-32); CHLORIDE 113 MMOL/L (98-107); PHOSPHORUS 1.6 MG/DL (2.5-4.9); POTASSIUM 3.5 MMOL/L (3.5-5.1); SODIUM 143 MMOL/L (136-145)
[2018-06-28 06:09] LABS: BILIRUBIN,DIRECT 1.6 MG/DL (0.0-0.3)
[2018-06-28] MEDS ORDERED: Miralax 17gm pkt ORAL PRN (06:30)
[2018-06-28] MEDS ORDERED: LORazepam 1mg tab ORAL PRN (07:00)
--- NOTE | 2018-06-28 07:40 | NUR ---
NURSE NOTES: Received report from Kirti Rivera RN. Patient asleep in bed, responsive to tactile stimuli, nonverbal. Receiving O2 via Venturi mask @ 14L/min, FiO2 55%, saturating at 100%. Left NGT in place, patient NPO at this time. Female external catheter in place and attached to continuous, low suction. Left EJ IV site infusing D51/2NS @ 100 cc/hr, asymptomatic. Bed locked in lowest position with side rails up x 3. All needs attended to. Call light within reach. Will continue to monitor.
[2018-06-28 08:00] VITALS: BP 150/77
[2018-06-28] MEDS ORDERED: Heparin 5000 units/ml inj SUBQ SCH (09:00)
[2018-06-28] MEDS: OLANZapine 2.5mg tab ORAL SCH ×2 (09:03→18:51)
[2018-06-28] MEDS ORDERED: Albuterol/Ipratropium 3ml neb HHN PRN (09:30)
--- NOTE | 2018-06-28 10:48 | NUR ---
swallow/speech therapy note: see swallow eval completed post chart review REFERRED BY DR GARCIA AND DR BINGHAM: DYSPHAGIA RISK FACTORS FOR THIS 82 Y.O. [place]ORE[place]-SPEAKING WOMAN: ACUTE DEHYDRATION, WEAKNESS, POOR INTAKE, DIFFICULTY CLEARING SECRETIONS AND RALES PER RT, PER CXR 06/25/18 MILD PATCHY RIGHT BASE OPACITY MAY REP ATELECTASIS OR DEV INFILTRATE. SEPSIS,PROTEIN-CALORIE MALNUTRITION, AMS. RELEVANT MEDS - ATIVAN, ALBUTEROL, MORPHINE, ZYPREXA H/O ALZHEIMER'S DZ DEMENTIA (?SEVERITY),FTT, HAD MILD OP DYSPHAGIA ON 03/2018, DM2, CHF, HTN, PSYCH (SCHIZO), PM (2013), ASTHMA. PER [facility] FULL [place] (NO NOTATION ABOUT TF PREFERENCES) PRIOR TO ADMIT AT A SNF ? DIET. AT [facility] [place]/2018 HAD A MILD OROPHARYNGEAL DYSPHAGIA WITH ASP RISK AND POOR INTAKE. [facility] AND THIN LIQUIDS AND GLUCERNA SUPPLEMENTS. PT NPO AND WAS GETTING NGT FEEDINGS OF GLUCERNA ON HOLD NOW DUE TO RESP ISSUES. INITIAL IMPRESSIONS: HIGH RISK FOR A PERSISTENT AND POSSIBLY WORSENENED OROPHARYNGEAL DYSPHAGIA PER RT HAS DIFFICULTY CLEARING ORAL SECRETIONS AND NEED DEEP NASAL SUCTION AND HAS MODERATE THICK AND THIN SECRETIONS. PATIENT DID NOT FOLLOW COMMANDS TO MOVE TONGUE AND WOULD ONLY MOAN. DID NOT SOUND LIKE SHE NEEDED OROPHARYNGEAL SUCTION. HAS HIGH RISK FOR SILENT ASPIRATION VITALS SIGNS STABLE FOR EXAM RECOMMENDATIONS: CONTINUE WITH ORAL CARE, ASP PREC FOR SECRETIONS (SEE SIGN) AND NONORAL FEEDINGS (GLUCERNA) WHEN ABLE COMPLETED MOD BARIUM SWALLOW STUDY WHEN READY TO FURTHER ASSESS SWALLOW, DETERMINE SILENT ASP RISK/ETIOLOGY, AND ATTEMPT TRIAL TX TECHNIQUES CONTINUE WITH DYSPHAGIA MANAGEMENT AND TX COG-COM EVAL/TX D/W RN (CORA)
--- NOTE | 2018-06-28 11:03 | Infectious Diseases Prog Note ---
Assessment/Plan Assessment/Plan 82 yo female with PMHx DM, CAD, Alzheimer dementia and Hip fracture who presents with dehydration and weakness. High grade bacteremia- suspect endovascular source (ie endocarditis, PPM infection) -2d Echo (limited study due to contractures): no vegetations seen -06/27 Bcx 4/4 GPC clusters 06/25/18 Blood Cx / MRSA 06/24/18 Wound Cx MRSA, ESBL E.coli (S ZOsyn), K. pna (S Zosyn) Mild leukocytosis - resolved Low grade fever Positive UA CXR neg Pressure ulcers Not infected Right hip fracture with hemiarthroplasty Feb 2018 DM HTN Sick sinus syndrome sp Pacemaker HLD CAD - SP NM and CABG Aortic stenosis. Pulmonary hypertension. Alzheimer dementia. PLAN - Continue Vancomycin #4 for persistent MRSA Bacteremia - Continue Zosyn #2/5 for sacral wound pathogens -06/27 SP Cefepime #3 -Will need NELDA to look for endocarditis and/or PPM infection if consistent with goals of care -REpeat 2 sets of Bcx - f/u repeat cultures - Monitor CBC and temps - wound care - Nutritional support Thank you for this consult. We will continue to follow the patient during this hospitalization. Subjective Allergies: Coded Allergies: No Known Allergies (Unverified , 08/10/13) Subjective Tm 100.9 no leukoycotis remains bacteremic Objective Vital Signs Last 24 Hour Vital Signs Date Time Temp Pulse Resp B/P (MAP) Pulse Ox O2 Delivery O2 Flow Rate FiO2 06/28/18 08:00 97.7 78 24 150/77 (101) 100 78 06/28/18 07:21 99 20 Venturi Mask 30 06/28/18 04:00 Venturi Mask 14.0 06/28/18 04:00 96.6 98 22 133/71 (91) 95 80 06/28/18 04:00 80 06/28/18 00:00 98.6 98 24 124/75 (91) 98 06/28/18 00:00 Venturi Mask 14.0 06/28/18 00:00 79 06/28/18 00:00 79 06/27/18 23:00 99.9 06/27/18 22:00 92 06/27/18 21:30 Venturi Mask 14.0 06/27/18 21:30 94 06/27/18 21:30 100.5 92 40 124/69 (87) 96 2/10/19 20:18 97 28 Venturi Mask 55 06/27/18 20:18 99 28 97 Venturi Mask 14.0 55 06/27/18 20:08 109 32 100 Venturi Mask 8.0 40 06/27/18 20:00 100.9 127 40 143/73 (96) 100 06/27/18 18:00 98.1 06/27/18 16:00 98.1 76 18 126/68 (87) 94 06/27/18 12:00 97.9 80 18 124/63 (83) 98 Height (Feet): 5 Height (Inches): 6.00 Weight (Pounds): 150 Objective Gen: Moaning, Awake but no following HEENT: NCAT, MMM, EOMI, PERRL LUNGS: CTAB, No W CARDS: RRR, S1, S2, No M/R/G, ABD: Soft, NT, ND, + BS Ext: Poor circulation to Ext (cool to touch) , Pulses 2+ B/L (DP, Rad): SKIN: Dry, No rashes, Large sacral ulcer. Mild odor no surrounding cellulitis, foot with eschar Microbiology Date/Time Source Procedure Growth Status 06/27/18 10:31 Blood Blood Culture - Preliminary Resulted 06/27/18 10:20 Blood Blood Culture - Preliminary Resulted Laboratory Tests Test 06/27/18 20:06 06/28/18 03:20 Arterial Blood pH 7.395 (7.350-7.450) Arterial Blood Partial Pressure CO2 25.6 mmHg (35.0-45.0) L Arterial Blood Partial Pressure O2 82.4 mmHg (75.0-100.0) Arterial Blood HCO3 15.3 mmol/L (22.0-26.0) *L Arterial Blood Oxygen Saturation 95.0 % (95-100) Arterial Blood Base Excess -8.3 (-2-2) L Feroz Test Positive White Blood Count 6.4 K/UL (4.8-10.8) Red Blood Count 2.46 M/UL (4.20-5.40) L Hemoglobin 7.1 G/DL (12.0-16.0) L Hematocrit 22.5 % (37.0-47.0) L Mean Corpuscular Volume 91 FL (80-99) Mean Corpuscular Hemoglobin 29.1 PG (27.0-31.0) Mean Corpuscular Hemoglobin Concent 31.8 G/DL (32.0-36.0) L Red Cell Distribution Width 16.7 % (11.6-14.8) H Platelet Count 20 K/UL (150-450) #L Mean Platelet Volume 13.2 FL (6.5-10.1) H Neutrophils (%) (Auto) % (45.0-75.0) Lymphocytes (%) (Auto) % (20.0-45.0) Monocytes (%) (Auto) % (1.0-10.0) Eosinophils (%) (Auto) % (0.0-3.0) Basophils (%) (Auto) % (0.0-2.0) Differential Total Cells Counted 100 Neutrophils % (Manual) 80 % (45-75) H Lymphocytes % (Manual) 6 % (20-45) L Monocytes % (Manual) 4 % (1-10) Eosinophils % (Manual) 0 % (0-3) Basophils % (Manual) 0 % (0-2) Band Neutrophils 10 % (0-8) H Platelet Estimate Decreased L Platelet Morphology Normal Anisocytosis 1+ Target Cells 2+ Ovalocytes 1+ Acanthocytes 1+ Schistocytes 1+ Sodium Level 143 MMOL/L (136-145) Potassium Level 3.5 MMOL/L (3.5-5.1) Chloride Level 113 MMOL/L (98-107) H Carbon Dioxide Level 20 MMOL/L (21-32) L Anion Gap 10 mmol/L (5-15) Blood Urea Nitrogen 36 mg/dL (7-18) H Creatinine 1.0 MG/DL (0.55-1.30) Estimat Glomerular Filtration Rate mL/min (>60) Glucose Level 127 MG/DL (74-106) H Calcium Level 7.7 MG/DL (8.5-10.1) L Phosphorus Level 1.6 MG/DL (2.5-4.9) L Magnesium Level 1.4 MG/DL (1.8-2.4) L Total Bilirubin 2.0 MG/DL (0.2-1.0) H Direct Bilirubin 1.6 MG/DL (0.0-0.3) H Aspartate Amino Transf (AST/SGOT) 148 U/L (15-37) H Alanine Aminotransferase (ALT/SGPT) 103 U/L (12-78) H Alkaline Phosphatase 134 U/L (46-116) H Total Protein 4.6 G/DL (6.4-8.2) L Albumin 1.2 G/DL (3.4-5.0) L Globulin 3.4 g/dL Albumin/Globulin Ratio 0.4 (1.0-2.7) L Current Medications Medications (Trade) Dose Ordered Sig/Yi Route PRN Reason Start Time Stop Time Status Last Admin Dose Admin Acetaminophen (Tylenol) 650 mg Q4H PRN ORAL T>100.5 06/28/18 09:30 07/24/18 13:29 Albuterol/ Ipratropium (Albuterol/ Ipratropium) 3 ml Q4H PRN HHN Shortness of Breath 06/28/18 09:30 06/29/18 13:29 Clonidine HCl (Catapres Tab) 0.1 mg Q8H PRN ORAL SBP>160mmHg 06/28/18 06:30 07/25/18 06:29 Dextrose (Dextrose 50%) 25 ml Q30M PRN IV Hypoglycemia 06/28/18 06:15 07/24/18 13:30 Dextrose (Dextrose 50%) 50 ml Q30M PRN IV hypoglycemia 06/28/18 06:15 07/24/18 13:44 Dextrose/Sodium Chloride 1,000 ml @ 100 mls/hr Q10H IV 06/28/18 10:00 07/25/18 12:51 06/28/18 09:02 Heparin Sodium (Porcine) (Heparin 5000 units/ml) 5,000 units EVERY 12 HOURS SUBQ 06/28/18 09:00 07/24/18 20:59 UNV Insulin Aspart (NovoLOG) EVERY 6 HOURS SUBQ 06/28/18 12:00 07/24/18 16:29 Lorazepam (Ativan) 1 mg Q6H PRN ORAL For Anxiety 06/28/18 07:00 07/02/18 12:52 Morphine Sulfate (Morphine Sulfate) 2 mg Q4H PRN IVP Moderate Pain (Pain Scale 4-6) 06/28/18 09:00 07/02/18 12:52 Olanzapine (ZyPREXA) 2.5 mg BID ORAL 06/28/18 09:00 07/25/18 10:59 2/11/19 09:03 Ondansetron HCl (Zofran) 4 mg Q6H PRN IVP Nausea & Vomiting 06/28/18 07:00 07/25/18 12:52 Phenazopyridine HCl (Pyridium) 100 mg DAILYPRN PRN ORAL dysuria 06/28/18 06:30 07/25/18 06:29 Piperacillin Sod/ Tazobactam Sod 3.375 gm/Dextrose 110 ml @ 27.5 mls/hr EVERY 8 HOURS IVPB 06/28/18 14:00 07/02/18 10:59 Polyethylene Glycol (Miralax) 17 gm DAILYPRN PRN ORAL Constipation 06/28/18 06:30 07/25/18 06:29 Potassium Chloride (K-Dur) 40 meq TWICE A DAY ORAL 06/28/18 09:00 06/28/18 17:59 06/28/18 09:03 Temazepam (Restoril) 15 mg HSPRN PRN ORAL Insomnia 06/28/18 21:00 07/01/18 20:59 Vancomycin HCl (Vanco rx to dose) 1 ea DAILY PRN MISC . 06/28/18 09:00 07/24/18 14:44 Vancomycin HCl 750 mg/Sodium Chloride 275 ml @ 183.333 mls/hr Q24H IVPB 06/28/18 17:00 06/30/18 16:59 Roseann Bardales M.D. Jun 28, 2018 11:03
--- NOTE | 2018-06-28 11:16 | Diagnostic Imaging Report ---
Indication: Chest pain Technique: One view of the chest Comparison: 06/25/2018 Findings: Nasogastric tube has retracted, tip now projected at the level of the gastric fundus and proximal port possibly the gastroesophageal junction. Bilateral pacemakers are again demonstrated. There is increased parenchymal consolidation in the right mid and lower lung and possibly in the left retrocardiac region. Suspect that there is a small amount of pleural fluid on the right, unchanged Impression: Retracted and now somewhat high position of nasogastric tube, advancement recommended. This finding was discussed with patient's nurse at the time of interpretation Slightly worsening bilateral infiltrates, over 2 days Other findings as noted This agrees with the preliminary interpretation provided overnight by [facility] teleradiology service.
[2018-06-28 12:00] VITALS: BP 139/106
--- NOTE | 2018-06-28 12:05 | Surgery Progress Note ---
Surgery Progress Note Subjective Additional Comments low grade fevers. leukocytosis resolved. lft's elevated. Objective Last 24 Hour Vital Signs Date Time Temp Pulse Resp B/P (MAP) Pulse Ox O2 Delivery O2 Flow Rate FiO2 06/28/18 08:00 97.7 78 24 150/77 (101) 100 78 06/28/18 08:00 73 06/28/18 08:00 Venturi Mask 14.0 06/28/18 07:21 99 20 Venturi Mask 30 06/28/18 04:00 Venturi Mask 14.0 06/28/18 04:00 96.6 98 22 133/71 (91) 95 80 06/28/18 04:00 80 06/28/18 00:00 98.6 98 24 124/75 (91) 98 06/28/18 00:00 Venturi Mask 14.0 06/28/18 00:00 79 06/28/18 00:00 79 06/27/18 23:00 99.9 06/27/18 22:00 92 06/27/18 21:30 Venturi Mask 14.0 06/27/18 21:30 94 06/27/18 21:30 100.5 92 40 124/69 (87) 96 06/27/18 20:18 97 28 Venturi Mask 55 06/27/18 20:18 99 28 97 Venturi Mask 14.0 55 06/27/18 20:08 109 32 100 Venturi Mask 8.0 40 06/27/18 20:00 100.9 127 40 143/73 (96) 100 06/27/18 18:00 98.1 06/27/18 16:00 98.1 76 18 126/68 (87) 94 I&O Intake and Output 06/27/18 06/28/18 18:59 06:59 Intake Total 893.333 ml 997.5 ml Balance 893.333 ml 997.5 ml Intake Free Water 60 ml IV Total 893.333 ml 937.5 ml # Voids 2 Drains: none Cardiovascular: RSR Respiratory: clear Abdomen: soft, flat, non-tender, non-distended Extremities: other Laboratory Tests Test 06/27/18 20:06 06/28/18 03:20 Arterial Blood pH 7.395 (7.350-7.450) Arterial Blood Partial Pressure CO2 25.6 mmHg (35.0-45.0) L Arterial Blood Partial Pressure O2 82.4 mmHg (75.0-100.0) Arterial Blood HCO3 15.3 mmol/L (22.0-26.0) *L Arterial Blood Oxygen Saturation 95.0 % (95-100) Arterial Blood Base Excess -8.3 (-2-2) L Feroz Test Positive White Blood Count 6.4 K/UL (4.8-10.8) Red Blood Count 2.46 M/UL (4.20-5.40) L Hemoglobin 7.1 G/DL (12.0-16.0) L Hematocrit 22.5 % (37.0-47.0) L Mean Corpuscular Volume 91 FL (80-99) Mean Corpuscular Hemoglobin 29.1 PG (27.0-31.0) Mean Corpuscular Hemoglobin Concent 31.8 G/DL (32.0-36.0) L Red Cell Distribution Width 16.7 % (11.6-14.8) H Platelet Count 20 K/UL (150-450) #L Mean Platelet Volume 13.2 FL (6.5-10.1) H Neutrophils (%) (Auto) % (45.0-75.0) Lymphocytes (%) (Auto) % (20.0-45.0) Monocytes (%) (Auto) % (1.0-10.0) Eosinophils (%) (Auto) % (0.0-3.0) Basophils (%) (Auto) % (0.0-2.0) Differential Total Cells Counted 100 Neutrophils % (Manual) 80 % (45-75) H Lymphocytes % (Manual) 6 % (20-45) L Monocytes % (Manual) 4 % (1-10) Eosinophils % (Manual) 0 % (0-3) Basophils % (Manual) 0 % (0-2) Band Neutrophils 10 % (0-8) H Platelet Estimate Decreased L Platelet Morphology Normal Anisocytosis 1+ Target Cells 2+ Ovalocytes 1+ Acanthocytes 1+ Schistocytes 1+ Sodium Level 143 MMOL/L (136-145) Potassium Level 3.5 MMOL/L (3.5-5.1) Chloride Level 113 MMOL/L (98-107) H Carbon Dioxide Level 20 MMOL/L (21-32) L Anion Gap 10 mmol/L (5-15) Blood Urea Nitrogen 36 mg/dL (7-18) H Creatinine 1.0 MG/DL (0.55-1.30) Estimat Glomerular Filtration Rate mL/min (>60) Glucose Level 127 MG/DL (74-106) H Calcium Level 7.7 MG/DL (8.5-10.1) L Phosphorus Level 1.6 MG/DL (2.5-4.9) L Magnesium Level 1.4 MG/DL (1.8-2.4) L Total Bilirubin 2.0 MG/DL (0.2-1.0) H Direct Bilirubin 1.6 MG/DL (0.0-0.3) H Aspartate Amino Transf (AST/SGOT) 148 U/L (15-37) H Alanine Aminotransferase (ALT/SGPT) 103 U/L (12-78) H Alkaline Phosphatase 134 U/L (46-116) H Total Protein 4.6 G/DL (6.4-8.2) L Albumin 1.2 G/DL (3.4-5.0) L Globulin 3.4 g/dL Albumin/Globulin Ratio 0.4 (1.0-2.7) L Plan Problems: (1) Sepsis Assessment & Plan: Leukocytosis resolved LFT's elevated w/ t bili / d bili AM labs ordered hydrate Ultrasound abdomen ordered and pending will follow with recs. (2) Sacral decubitus ulcer, stage III Assessment & Plan: DTPI sacrum.Maroon- indurated discoloration with opening at sacral coccygeal area(L)3.8cm x (W)1.4cm with entire wound measuring (L)10cmx(W) 12cm.Small amt malodorous brown exudate. Stable dry eschar R heel with dry peeling skin periwound (L)2cm x (W)3.5cm. Periwound is also red and boggy. Small dry eschar noted to lateral R 5th metatarsal (L)1.4cm x (W)0.3cm. L heel is boggy but colour is dusky . Resolving skin tear lateral R tibia. Wound bed is clean and dry. Tx. Plan: Cleanse Sacral wound with Saline.Apply Therahoney to opening at sacrococcygeal area.Cavilon skin barrier to DTPI. Cover with Optifoam drsg .Change Daily and prn. Apply Betadine to R heel and Lateral R 5th metatarsal.Cover with Abd pad .Wrap with kerlix daily and prn. Apply Cavilon Skin Barrier to L heel.Cover with Optifoam drsg .Change every 7 days and prn. Reposition at least every 2hours or as tolerated. Off-load heels with pillow. (3) Rectal bleed (4) Protein-calorie malnutrition, severe (5) Dehydration Sher Younger Jun 28, 2018 12:05
--- NOTE | 2018-06-28 12:13 | General Progress Note ---
Assessment/Plan Problem List: (1) Acute encephalopathy Assessment & Plan: metabolic ICD Codes: G93.40 - Encephalopathy, unspecified SNOMED: 52355335, 598760564 (2) Delirium ICD Codes: R41.0 - Disorientation, unspecified SNOMED: 8367387 (3) Alzheimer's dementia ICD Codes: G30.9 - Alzheimer's disease, unspecified; F02.80 - Dementia in other diseases classified elsewhere without behavioral disturbance SNOMED: 51443657 Assessment/Plan Zyprexa the pt lacks capacity soft restraints if needed Subjective Allergies: Coded Allergies: No Known Allergies (Unverified , 08/10/13) Subjective cont to be agitated lethargic today Objective Last 24 Hour Vital Signs Date Time Temp Pulse Resp B/P (MAP) Pulse Ox O2 Delivery O2 Flow Rate FiO2 06/28/18 08:00 97.7 78 24 150/77 (101) 100 78 06/28/18 08:00 73 06/28/18 08:00 Venturi Mask 14.0 06/28/18 07:21 99 20 Venturi Mask 30 06/28/18 04:00 Venturi Mask 14.0 06/28/18 04:00 96.6 98 22 133/71 (91) 95 80 06/28/18 04:00 80 06/28/18 00:00 98.6 98 24 124/75 (91) 98 06/28/18 00:00 Venturi Mask 14.0 06/28/18 00:00 79 06/28/18 00:00 79 06/27/18 23:00 99.9 06/27/18 22:00 92 06/27/18 21:30 Venturi Mask 14.0 06/27/18 21:30 94 06/27/18 21:30 100.5 92 40 124/69 (87) 96 06/27/18 20:18 97 28 Venturi Mask 55 06/27/18 20:18 99 28 97 Venturi Mask 14.0 55 06/27/18 20:08 109 32 100 Venturi Mask 8.0 40 06/27/18 20:00 100.9 127 40 143/73 (96) 100 06/27/18 18:00 98.1 06/27/18 16:00 98.1 76 18 126/68 (87) 94 Intake and Output 06/27/18 06/28/18 18:59 06:59 Intake Total 893.333 ml 997.5 ml Balance 893.333 ml 997.5 ml Intake Free Water 60 ml IV Total 893.333 ml 937.5 ml # Voids 2 Laboratory Tests 06/27/18 20:06: Arterial Blood pH 7.395, Arterial Blood Partial Pressure CO2 25.6L, Arterial Blood Partial Pressure O2 82.4, Arterial Blood HCO3 15.3*L, Arterial Blood Oxygen Saturation 95.0, Arterial Blood Base Excess -8.3L, Feroz Test Positive 06/28/18 03:20: White Blood Count 6.4, Red Blood Count 2.46L, Hemoglobin 7.1L, Hematocrit 22.5L , Mean Corpuscular Volume 91, Mean Corpuscular Hemoglobin 29.1, Mean Corpuscular Hemoglobin Concent 31.8L, Red Cell Distribution Width 16.7H, Platelet Count 20#L, Mean Platelet Volume 13.2H, Neutrophils (%) (Auto) , Lymphocytes (%) (Auto) , Monocytes (%) (Auto) , Eosinophils (%) (Auto) , Basophils (%) (Auto) , Differential Total Cells Counted 100, Neutrophils % ( Manual) 80H, Lymphocytes % (Manual) 6L, Monocytes % (Manual) 4, Eosinophils % ( Manual) 0, Basophils % (Manual) 0, Band Neutrophils 10H, Platelet Estimate DecreasedL, Platelet Morphology Normal, Anisocytosis 1+, Target Cells 2+, Ovalocytes 1+, Acanthocytes 1+, Schistocytes 1+, Sodium Level 143, Potassium Level 3.5, Chloride Level 113H, Carbon Dioxide Level 20L, Anion Gap 10, Blood Urea Nitrogen 36H, Creatinine 1.0, Estimat Glomerular Filtration Rate , Glucose Level 127H, Calcium Level 7.7L, Phosphorus Level 1.6L, Magnesium Level 1.4L, Total Bilirubin 2.0H, Direct Bilirubin 1.6H, Aspartate Amino Transf (AST/SGOT) 148H, Alanine Aminotransferase (ALT/SGPT) 103H, Alkaline Phosphatase 134H, Total Protein 4.6L, Albumin 1.2L, Globulin 3.4, Albumin/Globulin Ratio 0.4L Height (Feet): 5 Height (Inches): 6.00 Weight (Pounds): 150 General Appearance: lethargic, confused, agitated Lena Bob MD Jun 28, 2018 12:13
--- NOTE | 2018-06-28 12:18 | Pulmonology Progress Note ---
Assessment/Plan Problems: (1) Sepsis (2) ATN (acute tubular necrosis) (3) Pulmonary hypertension (4) Pacemaker (5) CAD (coronary artery disease) (6) Sacral decubitus ulcer, stage III (7) Alzheimer's dementia (8) Protein-calorie malnutrition, severe (9) HTN (hypertension) Assessment/Plan continues to have episodes of loud mourning failed swallow study Morphine prn d/w wound care nurse, mckeon cultures iv fluids check electrolytes sliding scale check electrolytes daily broad spectrum abx dvt prophylaxis insulin coverage. social service consult Subjective ROS Limited/Unobtainable: No Constitutional: Reports: no symptoms HEENT: Repors: no symptoms Respiratory: Reports: no symptoms Allergies: Coded Allergies: No Known Allergies (Unverified , 08/10/13) Objective Last 24 Hour Vital Signs Date Time Temp Pulse Resp B/P (MAP) Pulse Ox O2 Delivery O2 Flow Rate FiO2 06/28/18 08:00 97.7 78 24 150/77 (101) 100 78 06/28/18 08:00 73 06/28/18 08:00 Venturi Mask 14.0 06/28/18 07:21 99 20 Venturi Mask 30 06/28/18 04:00 Venturi Mask 14.0 06/28/18 04:00 96.6 98 22 133/71 (91) 95 80 06/28/18 04:00 80 06/28/18 00:00 98.6 98 24 124/75 (91) 98 06/28/18 00:00 Venturi Mask 14.0 06/28/18 00:00 79 06/28/18 00:00 79 06/27/18 23:00 99.9 06/27/18 22:00 92 06/27/18 21:30 Venturi Mask 14.0 06/27/18 21:30 94 06/27/18 21:30 100.5 92 40 124/69 (87) 96 06/27/18 20:18 97 28 Venturi Mask 55 06/27/18 20:18 99 28 97 Venturi Mask 14.0 55 06/27/18 20:08 109 32 100 Venturi Mask 8.0 40 06/27/18 20:00 100.9 127 40 143/73 (96) 100 06/27/18 18:00 98.1 06/27/18 16:00 98.1 76 18 126/68 (30) 94 Intake and Output 06/27/18 06/28/18 18:59 06:59 Intake Total 893.333 ml 997.5 ml Balance 893.333 ml 997.5 ml Intake Free Water 60 ml IV Total 893.333 ml 937.5 ml # Voids 2 Objective General Appearance: cachectic HEENT: normocephalic, somnolent Respiratory/Chest: chest wall non-tender, lungs clear Cardiovascular: normal peripheral pulses, normal rate Abdomen: normal bowel sounds, soft, non tender Extremities: no cyanosis Skin: no rash Microbiology Date/Time Source Procedure Growth Status 06/27/18 10:31 Blood Blood Culture - Preliminary Resulted 06/27/18 10:20 Blood Blood Culture - Preliminary Resulted Laboratory Tests 06/27/18 20:06: Arterial Blood pH 7.395, Arterial Blood Partial Pressure CO2 25.6L, Arterial Blood Partial Pressure O2 82.4, Arterial Blood HCO3 15.3*L, Arterial Blood Oxygen Saturation 95.0, Arterial Blood Base Excess -8.3L, Feroz Test Positive 06/28/18 03:20: White Blood Count 6.4, Red Blood Count 2.46L, Hemoglobin 7.1L, Hematocrit 22.5L , Mean Corpuscular Volume 91, Mean Corpuscular Hemoglobin 29.1, Mean Corpuscular Hemoglobin Concent 31.8L, Red Cell Distribution Width 16.7H, Platelet Count 20#L, Mean Platelet Volume 13.2H, Neutrophils (%) (Auto) , Lymphocytes (%) (Auto) , Monocytes (%) (Auto) , Eosinophils (%) (Auto) , Basophils (%) (Auto) , Differential Total Cells Counted 100, Neutrophils % ( Manual) 80H, Lymphocytes % (Manual) 6L, Monocytes % (Manual) 4, Eosinophils % ( Manual) 0, Basophils % (Manual) 0, Band Neutrophils 10H, Platelet Estimate DecreasedL, Platelet Morphology Normal, Anisocytosis 1+, Target Cells 2+, Ovalocytes 1+, Acanthocytes 1+, Schistocytes 1+, Sodium Level 143, Potassium Level 3.5, Chloride Level 113H, Carbon Dioxide Level 20L, Anion Gap 10, Blood Urea Nitrogen 36H, Creatinine 1.0, Estimat Glomerular Filtration Rate , Glucose Level 127H, Calcium Level 7.7L, Phosphorus Level 1.6L, Magnesium Level 1.4L, Total Bilirubin 2.0H, Direct Bilirubin 1.6H, Aspartate Amino Transf (AST/SGOT) 148H, Alanine Aminotransferase (ALT/SGPT) 103H, Alkaline Phosphatase 134H, Total Protein 4.6L, Albumin 1.2L, Globulin 3.4, Albumin/Globulin Ratio 0.4L Current Medications Medications (Trade) Dose Ordered Sig/Yi Route PRN Reason Start Time Stop Time Status Last Admin Dose Admin Acetaminophen (Tylenol) 650 mg Q4H PRN ORAL T>100.5 06/28/18 09:30 07/24/18 13:29 Albuterol/ Ipratropium (Albuterol/ Ipratropium) 3 ml Q4H PRN HHN Shortness of Breath 06/28/18 09:30 06/29/18 13:29 Clonidine HCl (Catapres Tab) 0.1 mg Q8H PRN ORAL SBP>160mmHg 06/28/18 06:30 07/25/18 06:29 Dextrose (Dextrose 50%) 25 ml Q30M PRN IV Hypoglycemia 06/28/18 06:15 07/24/18 13:30 Dextrose (Dextrose 50%) 50 ml Q30M PRN IV hypoglycemia 06/28/18 06:15 07/24/18 13:44 Dextrose/Sodium Chloride 1,000 ml @ 100 mls/hr Q10H IV 06/28/18 10:00 07/25/18 12:51 06/28/18 09:02 Heparin Sodium (Porcine) (Heparin 5000 units/ml) 5,000 units EVERY 12 HOURS SUBQ 06/28/18 09:00 07/24/18 20:59 UNV Insulin Aspart (NovoLOG) EVERY 6 HOURS SUBQ 06/28/18 12:00 07/24/18 16:29 06/28/18 11:54 Lorazepam (Ativan) 1 mg Q6H PRN ORAL For Anxiety 06/28/18 07:00 07/02/18 12:52 Morphine Sulfate (Morphine Sulfate) 2 mg Q4H PRN IVP Moderate Pain (Pain Scale 4-6) 06/28/18 09:00 07/02/18 12:52 Olanzapine (ZyPREXA) 2.5 mg BID ORAL 06/28/18 09:00 07/25/18 10:59 06/28/18 09:03 Ondansetron HCl (Zofran) 4 mg Q6H PRN IVP Nausea & Vomiting 06/28/18 07:00 07/25/18 12:52 Phenazopyridine HCl (Pyridium) 100 mg DAILYPRN PRN ORAL dysuria 06/28/18 06:30 07/25/18 06:29 Piperacillin Sod/ Tazobactam Sod 3.375 gm/Dextrose 110 ml @ 27.5 mls/hr EVERY 8 HOURS IVPB 06/28/18 14:00 07/02/18 10:59 Polyethylene Glycol (Miralax) 17 gm DAILYPRN PRN ORAL Constipation 06/28/18 06:30 07/25/18 06:29 Potassium Chloride (K-Dur) 40 meq TWICE A DAY ORAL 06/28/18 09:00 06/28/18 17:59 06/28/18 09:03 Temazepam (Restoril) 15 mg HSPRN PRN ORAL Insomnia 06/28/18 21:00 07/01/18 20:59 Vancomycin HCl (Vanco rx to dose) 1 ea DAILY PRN MISC . 06/28/18 09:00 07/24/18 14:44 Vancomycin HCl 750 mg/Sodium Chloride 275 ml @ 183.333 mls/hr Q24H IVPB 06/28/18 17:00 06/30/18 16:59 Rod Mancera MD Jun 28, 2018 12:18
[2018-06-28] MEDS: Morphine Sulfate 2mg/ml Inj(IV/IM USE ONLY) IVP PRN (12:23)
[2018-06-28] MEDS ORDERED: D5 1/2NS 1000ml IV ONE (15:59)
[2018-06-28 16:00] VITALS: BP 144/64
--- NOTE | 2018-06-28 17:10 | Diagnostic Imaging Report ---
Indication: Abnormal liver function tests Technique: Mix-scale and duplex images of the upper abdomen were obtained Comparison: 06/15/2006 Findings: Exam is very limited, due to limited ability of the patient to cooperate and due to contraction Gallbladder is distended, demonstrates sludge but no definite stones. No wall thickening or pericholecystic fluid. Sonographic Sharif's sign is negative. Common bile duct measures 4 mm in diameter. No intrahepatic biliary ductal dilatation. Liver demonstrates normal echogenicity, no focal abnormality. Portal vein and hepatic veins are patent. Pancreas is unremarkable. The spleen cannot be visualized Left kidney measures 9.5 cm in length. Right kidney measures 10.3 cm length. Both kidneys demonstrate normal echogenicity. There is no hydronephrosis. There are questionable bilateral parapelvic cysts . Non-aneurysmal abdominal aorta . There is incidental finding of a right pleural effusion Impression: Limited exam, as described. Note inability to visualize the spleen Negative for gallstones or dilated bile ducts Questionable bilateral renal parapelvic cysts Small to moderate right pleural effusion
[2018-06-28] MEDS: Vancomycin 750 MG in NS 275 ML IVPB SCH (17:14)
--- NOTE | 2018-06-28 19:06 | Internal Med Progress Note ---
Subjective Physician Name Aquilino Matthews Attending Physician Carlos Alberto Berkowitz MD Current Medications Medications (Trade) Dose Ordered Sig/Yi Route PRN Reason Start Time Stop Time Status Last Admin Dose Admin Acetaminophen (Tylenol) 650 mg Q4H PRN ORAL T>100.5 06/28/18 09:30 07/24/18 13:29 Albuterol/ Ipratropium (Albuterol/ Ipratropium) 3 ml Q4H PRN HHN Shortness of Breath 06/28/18 09:30 06/29/18 13:29 Clonidine HCl (Catapres Tab) 0.1 mg Q8H PRN ORAL SBP>160mmHg 06/28/18 06:30 07/25/18 06:29 Dextrose (Dextrose 50%) 25 ml Q30M PRN IV Hypoglycemia 06/28/18 06:15 07/24/18 13:30 Dextrose (Dextrose 50%) 50 ml Q30M PRN IV hypoglycemia 06/28/18 06:15 07/24/18 13:44 Dextrose/Sodium Chloride 1,000 ml @ 100 mls/hr Q10H IV 06/28/18 10:00 07/25/18 12:51 06/28/18 09:02 Insulin Aspart (NovoLOG) EVERY 6 HOURS SUBQ 06/28/18 12:00 07/24/18 16:29 06/28/18 11:54 Lorazepam (Ativan) 1 mg Q6H PRN ORAL For Anxiety 06/28/18 07:00 07/02/18 12:52 Morphine Sulfate (Morphine Sulfate) 2 mg Q4H PRN IVP Moderate Pain (Pain Scale 4-6) 06/28/18 09:00 07/02/18 12:52 06/28/18 12:23 Olanzapine (ZyPREXA) 2.5 mg BID ORAL 06/28/18 09:00 07/25/18 10:59 06/28/18 18:51 Ondansetron HCl (Zofran) 4 mg Q6H PRN IVP Nausea & Vomiting 06/28/18 07:00 07/25/18 12:52 Phenazopyridine HCl (Pyridium) 100 mg DAILYPRN PRN ORAL dysuria 06/28/18 06:30 07/25/18 06:29 Piperacillin Sod/ Tazobactam Sod 3.375 gm/Dextrose 110 ml @ 27.5 mls/hr EVERY 8 HOURS IVPB 06/28/18 14:00 07/02/18 10:59 06/28/18 14:23 Polyethylene Glycol (Miralax) 17 gm DAILYPRN PRN ORAL Constipation 06/28/18 06:30 07/25/18 06:29 Temazepam (Restoril) 15 mg HSPRN PRN ORAL Insomnia 06/28/18 21:00 07/01/18 20:59 Vancomycin HCl (Vanco rx to dose) 1 ea DAILY PRN MISC . 06/28/18 09:00 07/24/18 14:44 Vancomycin HCl 750 mg/Sodium Chloride 275 ml @ 183.333 mls/hr Q24H IVPB 06/28/18 17:00 06/30/18 16:59 06/28/18 17:14 Allergies: Coded Allergies: No Known Allergies (Unverified , 08/10/13) Objective Last Vital Signs Date Time Temp Pulse Resp B/P (MAP) Pulse Ox O2 Delivery O2 Flow Rate FiO2 06/28/18 16:00 79 06/28/18 16:00 Venturi Mask 14.0 06/28/18 12:53 97.7 06/28/18 12:00 31 139/106 (117) 96 06/28/18 07:21 30 Laboratory Tests Test 06/27/18 20:06 06/28/18 03:20 Arterial Blood pH 7.395 (7.350-7.450) Arterial Blood Partial Pressure CO2 25.6 mmHg (35.0-45.0) L Arterial Blood Partial Pressure O2 82.4 mmHg (75.0-100.0) Arterial Blood HCO3 15.3 mmol/L (22.0-26.0) *L Arterial Blood Oxygen Saturation 95.0 % (95-100) Arterial Blood Base Excess -8.3 (-2-2) L Feroz Test Positive White Blood Count 6.4 K/UL (4.8-10.8) Red Blood Count 2.46 M/UL (4.20-5.40) L Hemoglobin 7.1 G/DL (12.0-16.0) L Hematocrit 22.5 % (37.0-47.0) L Mean Corpuscular Volume 91 FL (80-99) Mean Corpuscular Hemoglobin 29.1 PG (27.0-31.0) Mean Corpuscular Hemoglobin Concent 31.8 G/DL (32.0-36.0) L Red Cell Distribution Width 16.7 % (11.6-14.8) H Platelet Count 20 K/UL (150-450) #L Mean Platelet Volume 13.2 FL (6.5-10.1) H Neutrophils (%) (Auto) % (45.0-75.0) Lymphocytes (%) (Auto) % (20.0-45.0) Monocytes (%) (Auto) % (1.0-10.0) Eosinophils (%) (Auto) % (0.0-3.0) Basophils (%) (Auto) % (0.0-2.0) Differential Total Cells Counted 100 Neutrophils % (Manual) 80 % (45-75) H Lymphocytes % (Manual) 6 % (20-45) L Monocytes % (Manual) 4 % (1-10) Eosinophils % (Manual) 0 % (0-3) Basophils % (Manual) 0 % (0-2) Band Neutrophils 10 % (0-8) H Platelet Estimate Decreased L Platelet Morphology Normal Anisocytosis 1+ Target Cells 2+ Ovalocytes 1+ Acanthocytes 1+ Schistocytes 1+ Sodium Level 143 MMOL/L (136-145) Potassium Level 3.5 MMOL/L (3.5-5.1) Chloride Level 113 MMOL/L (98-107) H Carbon Dioxide Level 20 MMOL/L (21-32) L Anion Gap 10 mmol/L (5-15) Blood Urea Nitrogen 36 mg/dL (7-18) H Creatinine 1.0 MG/DL (0.55-1.30) Estimat Glomerular Filtration Rate mL/min (>60) Glucose Level 127 MG/DL (74-106) H Calcium Level 7.7 MG/DL (8.5-10.1) L Phosphorus Level 1.6 MG/DL (2.5-4.9) L Magnesium Level 1.4 MG/DL (1.8-2.4) L Total Bilirubin 2.0 MG/DL (0.2-1.0) H Direct Bilirubin 1.6 MG/DL (0.0-0.3) H Aspartate Amino Transf (AST/SGOT) 148 U/L (15-37) H Alanine Aminotransferase (ALT/SGPT) 103 U/L (12-78) H Alkaline Phosphatase 134 U/L (46-116) H Total Protein 4.6 G/DL (6.4-8.2) L Albumin 1.2 G/DL (3.4-5.0) L Globulin 3.4 g/dL Albumin/Globulin Ratio 0.4 (1.0-2.7) L Microbiology Date/Time Source Procedure Growth Status 06/27/18 10:31 Blood Blood Culture - Preliminary Resulted 06/27/18 10:20 Blood Blood Culture - Preliminary Resulted Intake and Output 06/27/18 06/28/18 19:00 07:00 Intake Total 893.333 ml 1125.0 ml Balance 893.333 ml 1125.0 ml Intake Free Water 60 ml IV Total 893.333 ml 1065.0 ml # Voids 2 Objective Objective General: No acute distress, awake and less responsive, Sleepy, cachectic. HEENT: NCAT, sclera anicteric, PERRL, NG tube. Neck: Supple, no significant jugular venous distention, Lungs: Poor inspiratory effort, decreased air in the bases , no Wheeze or Rales. Heart: Regular rate and rhythm, normal S1/S2, no murmur. Abdomen: soft, nontender, nondistended. Normoactive bowel sounds. / Rectal: Refused and deferred. Extremities: No Cyanosis , No clubbing, Left UE edema. Lateral lower extremity / feet dressing intact. Neuro: A&O x 1, Able to move all extremities Skin: warm, no rashes or lesions, ecchymosis in bilateral upper extremity noted. Assessment/Plan Status: not improved Assessment/Plan Assessment/Plan Assessment/Plan 1. Sepsis / METHACILLIN RESISTANT STAPHYLOCOCCUS AUREUS bacteremia, lactic acidosis. 2. Failure to thrive with severe protein calorie malnutrition. 3. Coronary artery disease. 4. Diabetes, type 2. 5. Hypertension. 6. Sick sinus syndrome. 7. Hypercholesterolemia. 8. Aortic stenosis. 9. Pulmonary hypertension. 10. Alzheimer dementia. 11. Acute tubular necrosis/acute kidney injury most likely secondary to dehydration and sepsis. 12. Sacral decubitus ulcer, stage III 13. Severe dehydration 14. Hypokalemia. 15. Abnormal liver function test TREATMENT: 1. Patient on broad spectrum antibiotics with vancomycin and Zosyn IV. Monitor culture. 2. Coronary artery disease. The patient is status post coronary artery bypass graft in 2017. 3. Diabetes, type 2. The patient has been started on NovoLog sliding scale. 4. Hypertension. The patient is to continue on atenolol and losartan as above. 5. Sick sinus syndrome. The patient is status post pacemaker implantation. 6. Hypercholesterolemia. Continue simvastatin as above. 7. Aortic stenosis. 8. Pulmonary hypertension. 9. Alzheimer dementia. KCl supplement, will follow her laboratory as well as culture in the morning. Continue tube feeding at rate of 45 cc/hr. CODE STATUS is full code as per POL, DVT prophylaxis: Heparin subcu. Aquilino Matthews MD Jun 28, 2018 19:06
--- NOTE | 2018-06-28 19:35 | NUR ---
HAND-OFF: Report given to Mike Kang RN. IV site D/C per patient, unable to insert new line. Endorsed to receiving nurse. 1 PRBC ready at 18:15, patient's daughter has not yet called back to give consent for blood transfusion.
--- NOTE | 2018-06-28 19:36 | NUR ---
NURSE NOTES: Received bedside report from SOILA Mcgee.Patient stable,nonverbal,sleeping in a bed,moaning al the time,no IV access,patient hard to stick,will try later,tolerated non rebreathing mask with 15L well, SR on gambling monitor,BS active in all quadrants,no s/s of pain,no respiratory distress noted,bed in a low safety position,call light within a reach,will continue to monitor.
[2018-06-28 20:00] VITALS: BP 108/60
[2018-06-29] VITALS: BP 149/74
--- NOTE | 2018-06-29 00:10 | NUR ---
NURSE NOTES: Started blood transfusion,patient tolerated well no adverse reaction noted
[2018-06-29] MEDS: NovoLOG Insulin Flexpen SUBQ SCH ×4 (00:29→17:14)
[2018-06-29] MEDS: Morphine Sulfate 2mg/ml Inj(IV/IM USE ONLY) IVP PRN ×2 (00:36→22:01)
--- NOTE | 2018-06-29 02:20 | NUR ---
NURSE NOTES: Blood transfusion done,no adverse reaction noted,V/S stable.Will continue to monitor patient
[2018-06-29 04:00] VITALS: BP 125/80
[2018-06-29 05:55] LABS: HEMATOCRIT 22.4 % (37.0-47.0); HEMOGLOBIN 7.2 G/DL (12.0-16.0); MEAN CORPUSCULAR VOLUME 91 FL (80-99); PLATELET COUNT 23 K/UL (150-450); RED BLOOD COUNT 2.46 M/UL (4.20-5.40); RED CELL DISTRIBUTION WIDTH 16.5 % (11.6-14.8); WHITE BLOOD COUNT 6.3 K/UL (4.8-10.8)
[2018-06-29] MEDS: Piperacillin/Tazobactam 3.375 GM in D5W 110 ML IVPB SCH ×3 (06:04→21:05)
[2018-06-29] MEDS: D5 1/2NS 1,000 ML IV SCH ×2 (06:04→11:36)
--- NOTE | 2018-06-29 07:08 | NUR ---
HAND-OFF: Report given to SOILA Ann.Patient stable.
--- NOTE | 2018-06-29 07:25 | NUR ---
NURSE NOTES: Received report SOILA Ridley. Patient is resting in bed, in stable condition. Non-rebreather noted at 15 L, SpO2 93%. NGT noted in position. Patient is NPO. No s/sx of SOB, breathing is even and unlabored. Observed no presence of pain or discomfort at this time. Bed is in lowest position, brakes engaged. Call light is kept within easy reach. Will continue to monitor patient.
--- NOTE | 2018-06-29 07:26 | NUR ---
NURSE NOTES: Per report Dr. Mancera is aware of current magnesium and phosphorus levels. Noted. Will continue to monitor patient.
[2018-06-29 08:00] VITALS: BP 134/62
[2018-06-29] MEDS: OLANZapine 2.5mg tab ORAL SCH ×2 (09:00→17:14)
[2018-06-29 09:33] LABS: HEMATOCRIT 21.8 % (37.0-47.0); MEAN CORPUSCULAR VOLUME 102 FL (80-99); PLATELET COUNT 21 K/UL (150-450); RED BLOOD COUNT 2.14 M/UL (4.20-5.40); WHITE BLOOD COUNT 6.5 K/UL (4.8-10.8)
[2018-06-29 09:46] LABS: HEMOGLOBIN 6.2 G/DL (12.0-16.0)
--- NOTE | 2018-06-29 09:55 | NUR ---
RADIOLOGY DEPT ABDOMEN (KUB) X-RAY FOR NGT PLMT COMPLETED.-P.DYE
[2018-06-29] MEDS ORDERED: Heparin 2000 units/Ns 1000ml INJ PRN (11:00)
[2018-06-29] MEDS ORDERED: Lidocaine 1% Plain 30 ml INJ PRN (11:00)
--- NOTE | 2018-06-29 11:00 | NUR ---
NURSE NOTES: Dr. Mancera seen and examined patient and ordered PICC placement. Order entered, noted, and carried out. Will continue to monitor patient.
--- NOTE | 2018-06-29 11:05 | NUR ---
NURSE NOTES: Called and left message for patient's daughter, Celine, regarding PICC placement consent. Will call back. Will continue to monitor patient.
--- NOTE | 2018-06-29 11:13 | Pulmonology Progress Note ---
Assessment/Plan Problems: (1) Sepsis (2) ATN (acute tubular necrosis) (3) Pulmonary hypertension (4) Pacemaker (5) CAD (coronary artery disease) (6) Sacral decubitus ulcer, stage III (7) Alzheimer's dementia (8) Protein-calorie malnutrition, severe (9) HTN (hypertension) Assessment/Plan on face mask prbc X 2 failed swallow study Morphine prn d/w wound care nurse, mckeon cultures iv fluids check electrolytes sliding scale check electrolytes daily broad spectrum abx dvt prophylaxis insulin coverage. social service consult Subjective ROS Limited/Unobtainable: Yes Constitutional: Reports: no symptoms HEENT: Repors: no symptoms Allergies: Coded Allergies: No Known Allergies (Unverified , 08/10/13) Objective Last 24 Hour Vital Signs Date Time Temp Pulse Resp B/P (MAP) Pulse Ox O2 Delivery O2 Flow Rate FiO2 06/29/18 08:00 98 06/29/18 08:00 Non-Rebreather 15.0 06/29/18 08:00 98.9 93 26 134/62 (86) 98 06/29/18 04:00 Non-Rebreather 15.0 06/29/18 04:00 99.0 99 24 125/80 (95) 100 06/29/18 04:00 85 06/29/18 00:00 Venturi Mask 14.0 06/29/18 00:00 98.4 99 24 149/74 (99) 100 06/28/18 23:21 82 06/28/18 20:15 88 20 Venturi Mask 12.0 50 06/28/18 20:15 99 Venturi Mask 12.0 50 06/28/18 20:15 Venturi Mask 12.0 50 06/28/18 20:00 94 06/28/18 20:00 99.0 108 28 108/60 (76) 100 06/28/18 20:00 Venturi Mask 14.0 06/28/18 16:00 98.9 99 21 144/64 (90) 96 99 06/28/18 16:00 79 06/28/18 16:00 Venturi Mask 14.0 06/28/18 12:53 97.7 06/28/18 12:00 90 06/28/18 12:00 98.4 76 31 139/106 (117) 96 76 06/28/18 12:00 Venturi Mask 14.0 Intake and Output 06/28/18 06/29/18 19:00 07:00 Intake Total 1826.958 ml 1047.50 ml Output Total 600 ml 200 ml Balance 1226.958 ml 847.50 ml Intake Free Water 60 ml IV Total 1626.958 ml 987.50 ml Other 200 ml Output Urine Total 600 ml 200 ml # Bowel Movements 1 Objective General Appearance: cachectic HEENT: normocephalic, somnolent Respiratory/Chest: chest wall non-tender, lungs clear Cardiovascular: normal peripheral pulses, normal rate Abdomen: normal bowel sounds, soft, non tender Extremities: no cyanosis Skin: no rash Microbiology Date/Time Source Procedure Growth Status 06/28/18 15:15 Blood Blood Culture - Preliminary Resulted 06/28/18 15:15 Blood Blood Culture - Preliminary Resulted 06/27/18 10:31 Blood Blood Culture - Preliminary Staphylococcus Aureus Resulted 06/27/18 10:20 Blood Blood Culture - Preliminary Staphylococcus Aureus Resulted Laboratory Tests 06/29/18 03:45: White Blood Count 6.3, Red Blood Count 2.46L, Hemoglobin 7.2L, Hematocrit 22.4L , Mean Corpuscular Volume 91, Mean Corpuscular Hemoglobin 29.2, Mean Corpuscular Hemoglobin Concent 31.9L, Red Cell Distribution Width 16.5H, Platelet Count 23L, Mean Platelet Volume 11.2H, Neutrophils (%) (Auto) , Lymphocytes (%) (Auto) , Monocytes (%) (Auto) , Eosinophils (%) (Auto) , Basophils (%) (Auto) , Differential Total Cells Counted 100, Neutrophils % ( Manual) 80H, Lymphocytes % (Manual) 2L, Monocytes % (Manual) 4, Eosinophils % ( Manual) 0, Basophils % (Manual) 0, Band Neutrophils 14H, Platelet Estimate DecreasedL, Platelet Morphology Normal, Hypochromasia 1+, Anisocytosis 1+, Ovalocytes 1+ 06/29/18 09:10: White Blood Count 6.5, Red Blood Count 2.14L, Hemoglobin 6.2*L, Hematocrit 21.8L , Mean Corpuscular Volume 102#H, Mean Corpuscular Hemoglobin 29.0, Mean Corpuscular Hemoglobin Concent 28.4L, Red Cell Distribution Width 17.0H, Platelet Count 21L, Mean Platelet Volume 16.5H, Neutrophils (%) (Auto) , Lymphocytes (%) (Auto) , Monocytes (%) (Auto) , Eosinophils (%) (Auto) , Basophils (%) (Auto) , Neutrophils % (Manual) [Pending], Lymphocytes % (Manual) [Pending], Platelet Estimate [Pending], Platelet Morphology [Pending] Current Medications Medications (Trade) Dose Ordered Sig/Yi Route PRN Reason Start Time Stop Time Status Last Admin Dose Admin Acetaminophen (Tylenol) 650 mg Q4H PRN ORAL T>100.5 06/28/18 09:30 07/24/18 13:29 Albuterol/ Ipratropium (Albuterol/ Ipratropium) 3 ml Q4H PRN HHN Shortness of Breath 06/28/18 09:30 06/29/18 13:29 Chlorhexidine Gluconate (Mirtha-Hex 2%) 1 applic DAILY@2000 TOPIC 06/29/18 20:00 07/29/18 19:59 Clonidine HCl (Catapres Tab) 0.1 mg Q8H PRN ORAL SBP>160mmHg 06/28/18 06:30 07/25/18 06:29 Dextrose (Dextrose 50%) 25 ml Q30M PRN IV Hypoglycemia 06/28/18 06:15 07/24/18 13:30 Dextrose (Dextrose 50%) 50 ml Q30M PRN IV hypoglycemia 06/28/18 06:15 07/24/18 13:44 Dextrose/Sodium Chloride 1,000 ml @ 100 mls/hr Q10H IV 06/28/18 10:00 07/25/18 12:51 06/29/18 06:04 Heparin Sodium/ Sodium Chloride (Heparin 2000 units/Ns 1000ml premix) 2,000 unit ONCE PRN INJ picc line placement 06/29/18 11:00 06/30/18 10:59 Insulin Aspart (NovoLOG) EVERY 6 HOURS SUBQ 06/28/18 12:00 07/24/18 16:29 06/29/18 06:04 Lidocaine HCl (Xylocaine 1% 30ml) 30 ml ONCE PRN INJ picc line placement 06/29/18 11:00 06/30/18 10:59 Lorazepam (Ativan) 1 mg Q6H PRN ORAL For Anxiety 06/28/18 07:00 07/02/18 12:52 Morphine Sulfate (Morphine Sulfate) 2 mg Q4H PRN IVP Moderate Pain (Pain Scale 4-6) 06/28/18 09:00 07/02/18 12:52 06/29/18 00:36 Olanzapine (ZyPREXA) 2.5 mg BID ORAL 06/28/18 09:00 07/25/18 10:59 06/28/18 18:51 Ondansetron HCl (Zofran) 4 mg Q6H PRN IVP Nausea & Vomiting 06/28/18 07:00 07/25/18 12:52 Phenazopyridine HCl (Pyridium) 100 mg DAILYPRN PRN ORAL dysuria 06/28/18 06:30 07/25/18 06:29 Piperacillin Sod/ Tazobactam Sod 3.375 gm/Dextrose 110 ml @ 27.5 mls/hr EVERY 8 HOURS IVPB 06/28/18 14:00 07/02/18 10:59 06/29/18 06:04 Polyethylene Glycol (Miralax) 17 gm DAILYPRN PRN ORAL Constipation 06/28/18 06:30 07/25/18 06:29 Temazepam (Restoril) 15 mg HSPRN PRN ORAL Insomnia 06/28/18 21:00 07/01/18 20:59 Vancomycin HCl (Vanco rx to dose) 1 ea DAILY PRN MISC . 06/28/18 09:00 07/24/18 14:44 Vancomycin HCl 750 mg/Sodium Chloride 275 ml @ 183.333 mls/hr Q24H IVPB 06/28/18 17:00 06/30/18 16:59 06/28/18 17:14 Rod Mancera MD Jun 29, 2018 11:12
[2018-06-29 11:59] LABS: HEMATOCRIT 30.7 % (37.0-47.0); HEMOGLOBIN 9.7 G/DL (12.0-16.0); MEAN CORPUSCULAR VOLUME 93 FL (80-99); PLATELET COUNT 37 K/UL (150-450); RED CELL DISTRIBUTION WIDTH 15.7 % (11.6-14.8); WHITE BLOOD COUNT 8.1 K/UL (4.8-10.8)
[2018-06-29 12:00] VITALS: BP 121/77
[2018-06-29 12:19] LABS: ANION GAP 12 mmol/L (5-15); BLOOD UREA NITROGEN 34 mg/dL (7-18); CALCIUM 8.4 MG/DL (8.5-10.1); CARBON DIOXIDE 18 MMOL/L (21-32); CHLORIDE 113 MMOL/L (98-107); POTASSIUM 3.9 MMOL/L (3.5-5.1); SODIUM 143 MMOL/L (136-145)
--- NOTE | 2018-06-29 12:41 | Surgery Progress Note ---
Surgery Progress Note Subjective Additional Comments ill appearing. responded to blood products. labs noted. Objective Last 24 Hour Vital Signs Date Time Temp Pulse Resp B/P (MAP) Pulse Ox O2 Delivery O2 Flow Rate FiO2 06/29/18 12:00 Non-Rebreather 15.0 06/29/18 12:00 99.1 89 27 121/77 (92) 99 06/29/18 08:00 98 06/29/18 08:00 Non-Rebreather 15.0 06/29/18 08:00 98.9 93 26 134/62 (86) 98 06/29/18 04:00 Non-Rebreather 15.0 06/29/18 04:00 99.0 99 24 125/80 (95) 100 06/29/18 04:00 85 06/29/18 00:00 Venturi Mask 14.0 06/29/18 00:00 98.4 99 24 149/74 (99) 100 06/28/18 23:21 82 06/28/18 20:15 88 20 Venturi Mask 12.0 50 06/28/18 20:15 99 Venturi Mask 12.0 50 06/28/18 20:15 Venturi Mask 12.0 50 06/28/18 20:00 94 06/28/18 20:00 99.0 108 28 108/60 (76) 100 06/28/18 20:00 Venturi Mask 14.0 06/28/18 16:00 98.9 99 21 144/64 (90) 96 99 06/28/18 16:00 79 06/28/18 16:00 Venturi Mask 14.0 06/28/18 12:53 97.7 I&O Intake and Output 06/28/18 06/29/18 18:59 06:59 Intake Total 1954.458 ml 920.00 ml Output Total 600 ml 200 ml Balance 1354.458 ml 720.00 ml Intake Free Water 60 ml IV Total 1754.458 ml 860.00 ml Other 200 ml Output Urine Total 600 ml 200 ml # Bowel Movements 1 Dressing: other Wound: other Drains: other Cardiovascular: RSR Respiratory: decreased breath sounds Abdomen: soft, present bowel sounds, non-distended Extremities: other Laboratory Tests Test 06/29/18 03:45 06/29/18 09:10 06/29/18 11:45 White Blood Count 6.3 K/UL (4.8-10.8) 6.5 K/UL (4.8-10.8) 8.1 K/UL (4.8-10.8) Red Blood Count 2.46 M/UL (4.20-5.40) L 2.14 M/UL (4.20-5.40) L 3.30 M/UL (4.20-5.40) L Hemoglobin 7.2 G/DL (12.0-16.0) L 6.2 G/DL (12.0-16.0) *L 9.7 G/DL (12.0-16.0) #L Hematocrit 22.4 % (37.0-47.0) L 21.8 % (37.0-47.0) L 30.7 % (37.0-47.0) #L Mean Corpuscular Volume 91 FL (80-99) 102 FL (80-99) #H 93 FL (80-99) # Mean Corpuscular Hemoglobin 29.2 PG (27.0-31.0) 29.0 PG (27.0-31.0) 29.2 PG (27.0-31.0) Mean Corpuscular Hemoglobin Concent 31.9 G/DL (32.0-36.0) L 28.4 G/DL (32.0-36.0) L 31.4 G/DL (32.0-36.0) L Red Cell Distribution Width 16.5 % (11.6-14.8) H 17.0 % (11.6-14.8) H 15.7 % (11.6-14.8) H Platelet Count 23 K/UL (150-450) L 21 K/UL (150-450) L 37 K/UL (150-450) #L Mean Platelet Volume 11.2 FL (6.5-10.1) H 16.5 FL (6.5-10.1) H 12.9 FL (6.5-10.1) H Neutrophils (%) (Auto) % (45.0-75.0) % (45.0-75.0) % (45.0-75.0) Lymphocytes (%) (Auto) % (20.0-45.0) % (20.0-45.0) % (20.0-45.0) Monocytes (%) (Auto) % (1.0-10.0) % (1.0-10.0) % (1.0-10.0) Eosinophils (%) (Auto) % (0.0-3.0) % (0.0-3.0) % (0.0-3.0) Basophils (%) (Auto) % (0.0-2.0) % (0.0-2.0) % (0.0-2.0) Differential Total Cells Counted 100 100 Neutrophils % (Manual) 80 % (45-75) H 79 % (45-75) H Pending Lymphocytes % (Manual) 2 % (20-45) L 8 % (20-45) L Pending Monocytes % (Manual) 4 % (1-10) 5 % (1-10) Eosinophils % (Manual) 0 % (0-3) 0 % (0-3) Basophils % (Manual) 0 % (0-2) 0 % (0-2) Band Neutrophils 14 % (0-8) H 8 % (0-8) Platelet Estimate Decreased L Decreased L Pending Platelet Morphology Normal Normal Pending Hypochromasia 1+ 2+ Anisocytosis 1+ Ovalocytes 1+ Sodium Level 143 MMOL/L (136-145) Potassium Level 3.9 MMOL/L (3.5-5.1) Chloride Level 113 MMOL/L (98-107) H Carbon Dioxide Level 18 MMOL/L (21-32) L Anion Gap 12 mmol/L (5-15) Blood Urea Nitrogen 34 mg/dL (7-18) H Creatinine 1.0 MG/DL (0.55-1.30) Estimat Glomerular Filtration Rate mL/min (>60) Glucose Level 116 MG/DL (74-106) H Calcium Level 8.4 MG/DL (8.5-10.1) L Plan Problems: (1) Sepsis Assessment & Plan: Leukocytosis resolved LFT's elevated w/ t bili / d bili - improved AM labs ordered hydrate US Impression: Limited exam, as described. Note inability to visualize the spleen Negative for gallstones or dilated bile ducts Questionable bilateral renal parapelvic cysts Small to moderate right pleural effusion no acute surgical intervention planned. will follow with recs. (2) Sacral decubitus ulcer, stage III Assessment & Plan: DTPI sacrum.Maroon- indurated discoloration with opening at sacral coccygeal area(L)3.8cm x (W)1.4cm with entire wound measuring (L)10cmx(W) 12cm.Small amt malodorous brown exudate. Stable dry eschar R heel with dry peeling skin periwound (L)2cm x (W)3.5cm. Periwound is also red and boggy. Small dry eschar noted to lateral R 5th metatarsal (L)1.4cm x (W)0.3cm. L heel is boggy but colour is dusky . Resolving skin tear lateral R tibia. Wound bed is clean and dry. Tx. Plan: Cleanse Sacral wound with Saline.Apply Therahoney to opening at sacrococcygeal area.Cavilon skin barrier to DTPI. Cover with Optifoam drsg .Change Daily and prn. Apply Betadine to R heel and Lateral R 5th metatarsal.Cover with Abd pad .Wrap with kerlix daily and prn. Apply Cavilon Skin Barrier to L heel.Cover with Optifoam drsg .Change every 7 days and prn. Reposition at least every 2hours or as tolerated. Off-load heels with pillow. (3) Rectal bleed (4) Protein-calorie malnutrition, severe (5) Dehydration Sher Younger Jun 29, 2018 12:41
--- NOTE | 2018-06-29 12:44 | Diagnostic Imaging Report ---
Indication: Post nasogastric tube placement Technique: Supine view of the upper abdomen Comparison: June 25 2018 Findings: There is a nasogastric tube in place, tip projected at the level gastric antrum. Bowel gas pattern is unremarkable. Pulmonary parenchymal disease and bilateral pacemakers are noted Impression: Satisfactory nasogastric tube position Other stable findings as described
--- NOTE | 2018-06-29 13:08 | NUR ---
NURSE NOTES: Radiology department informed this nurse that PICC line may not be inserted at this time because per chest x-ray patient is shown with bilateral chest pacemakers. Informed Dr. Mancera, Dr. Mancera acknowledged and ordered to have a Midline inserted. Order entered and noted. Called and informed technical training manager of Midline insertion for patient, technical training manager acknowledged. Will continue to monitor patient.
--- NOTE | 2018-06-29 13:13 | General Progress Note ---
Assessment/Plan Problem List: (1) Acute encephalopathy Assessment & Plan: metabolic ICD Codes: G93.40 - Encephalopathy, unspecified SNOMED: 89376205, 149343520 (2) Delirium ICD Codes: R41.0 - Disorientation, unspecified SNOMED: 5333364 (3) Alzheimer's dementia ICD Codes: G30.9 - Alzheimer's disease, unspecified; F02.80 - Dementia in other diseases classified elsewhere without behavioral disturbance SNOMED: 55745870 Assessment/Plan Zyprexa the pt lacks capacity soft restraints if needed Subjective Allergies: Coded Allergies: No Known Allergies (Unverified , 08/10/13) Subjective cont to be agitated lethargic today Objective Last 24 Hour Vital Signs Date Time Temp Pulse Resp B/P (MAP) Pulse Ox O2 Delivery O2 Flow Rate FiO2 06/29/18 12:00 84 06/29/18 12:00 Non-Rebreather 15.0 06/29/18 12:00 99.1 89 27 121/77 (92) 99 06/29/18 08:00 98 06/29/18 08:00 Non-Rebreather 15.0 06/29/18 08:00 98.9 93 26 134/62 (86) 98 06/29/18 04:00 Non-Rebreather 15.0 06/29/18 04:00 99.0 99 24 125/80 (95) 100 06/29/18 04:00 85 06/29/18 00:00 Venturi Mask 14.0 06/29/18 00:00 98.4 99 24 149/74 (99) 100 06/28/18 23:21 82 06/28/18 20:15 88 20 Venturi Mask 12.0 50 06/28/18 20:15 99 Venturi Mask 12.0 50 06/28/18 20:15 Venturi Mask 12.0 50 06/28/18 20:00 94 06/28/18 20:00 99.0 108 28 108/60 (76) 100 06/28/18 20:00 Venturi Mask 14.0 06/28/18 16:00 98.9 99 21 144/64 (90) 96 99 06/28/18 16:00 79 06/28/18 16:00 Venturi Mask 14.0 Intake and Output 06/28/18 06/29/18 18:59 06:59 Intake Total 1954.458 ml 920.00 ml Output Total 600 ml 200 ml Balance 1354.458 ml 720.00 ml Intake Free Water 60 ml IV Total 1754.458 ml 860.00 ml Other 200 ml Output Urine Total 600 ml 200 ml # Bowel Movements 1 Laboratory Tests 06/29/18 03:45: White Blood Count 6.3, Red Blood Count 2.46L, Hemoglobin 7.2L, Hematocrit 22.4L , Mean Corpuscular Volume 91, Mean Corpuscular Hemoglobin 29.2, Mean Corpuscular Hemoglobin Concent 31.9L, Red Cell Distribution Width 16.5H, Platelet Count 23L, Mean Platelet Volume 11.2H, Neutrophils (%) (Auto) , Lymphocytes (%) (Auto) , Monocytes (%) (Auto) , Eosinophils (%) (Auto) , Basophils (%) (Auto) , Differential Total Cells Counted 100, Neutrophils % ( Manual) 80H, Lymphocytes % (Manual) 2L, Monocytes % (Manual) 4, Eosinophils % ( Manual) 0, Basophils % (Manual) 0, Band Neutrophils 14H, Platelet Estimate DecreasedL, Platelet Morphology Normal, Hypochromasia 1+, Anisocytosis 1+, Ovalocytes 1+ 06/29/18 09:10: White Blood Count 6.5, Red Blood Count 2.14L, Hemoglobin 6.2*L, Hematocrit 21.8L , Mean Corpuscular Volume 102#H, Mean Corpuscular Hemoglobin 29.0, Mean Corpuscular Hemoglobin Concent 28.4L, Red Cell Distribution Width 17.0H, Platelet Count 21L, Mean Platelet Volume 16.5H, Neutrophils (%) (Auto) , Lymphocytes (%) (Auto) , Monocytes (%) (Auto) , Eosinophils (%) (Auto) , Basophils (%) (Auto) , Differential Total Cells Counted 100, Neutrophils % ( Manual) 79H, Lymphocytes % (Manual) 8L, Monocytes % (Manual) 5, Eosinophils % ( Manual) 0, Basophils % (Manual) 0, Band Neutrophils 8, Platelet Estimate DecreasedL, Platelet Morphology Normal, Hypochromasia 2+ 06/29/18 11:45: White Blood Count 8.1, Red Blood Count 3.30L, Hemoglobin 9.7#L, Hematocrit 30.7# L, Mean Corpuscular Volume 93#, Mean Corpuscular Hemoglobin 29.2, Mean Corpuscular Hemoglobin Concent 31.4L, Red Cell Distribution Width 15.7H, Platelet Count 37#L, Mean Platelet Volume 12.9H, Neutrophils (%) (Auto) , Lymphocytes (%) (Auto) , Monocytes (%) (Auto) , Eosinophils (%) (Auto) , Basophils (%) (Auto) , Neutrophils % (Manual) [Pending], Lymphocytes % (Manual) [Pending], Platelet Estimate [Pending], Platelet Morphology [Pending], Sodium Level 143, Potassium Level 3.9, Chloride Level 113H, Carbon Dioxide Level 18L, Anion Gap 12, Blood Urea Nitrogen 34H, Creatinine 1.0, Estimat Glomerular Filtration Rate , Glucose Level 116H, Calcium Level 8.4L Height (Feet): 5 Height (Inches): 6.00 Weight (Pounds): 150 General Appearance: lethargic, agitated Lena Bob MD Jun 29, 2018 13:13
--- NOTE | 2018-06-29 14:32 | NUR ---
RD ASSESSMENT & RECOMMENDATIONS SEE CARE ACTIVITY FOR COMPLETE ASSESSMENT DAILY ESTIMATED NEEDS: Needs based on Wound, DM, wasting, sepsis / 55kg 30-35 kcals/kg 9527-0741 total kcals 1.25-2 g protein/kg 69-110 g total protein 25-30 mL/kg 6220-5392 total fluid mLs NUTRITION DIAGNOSIS: * Increased kcal/prot needs R/T wound healing as evidenced by pt w/ stage 3 sacral wound per MD * Swallowing difficulty R/T dysphagia, respiratory status as evidenced by per INTERIOR DECORATOR, pt at high risk for silent aspiration, rec for nonoral feedings, TF held at this time due to respiratory status. CURRENT TF:Glucerna 1.5 @ 47ml/hr x 24 hrs -> HELD ENTERAL NUTRITION RECOMMENDATIONS: Glucerna 1.5 @47ml/hr x24 hrs to provide 1128ml, 1692 kcal, 93g prot, 856ml free H2O - Resume TF as medically appropriate - Flush per MD. HOB over 30 degrees ADDITIONAL RECOMMENDATIONS: * RE-calibrate bedscale for accurate CBW * Wound healing: add MVI w/ min 1 tab QD, Vit C 500mg QD, Tano 1pkt BID + ZnSO4 220mg dailyx 10 days * Lytes daily, replete as needed (low mag and phos) * RESUME TF MEDICALLY APPROPRIATE . .
[2018-06-29 16:00] VITALS: BP 131/75
--- NOTE | 2018-06-29 16:06 | Infectious Diseases Prog Note ---
Assessment/Plan Assessment/Plan 82 yo female with PMHx DM, CAD, Alzheimer dementia and Hip fracture who presents with dehydration and weakness. High grade persistent bacteremia- suspect endovascular source (ie endocarditis, PPM infection) -2d Echo (limited study due to contractures): no vegetations seen -06/27 Bcx 4/4MRSA; 06/28 Bcx /4 GPC clusters 06/25/18 Blood Cx / MRSA 06/24/18 Wound Cx MRSA, ESBL E.coli (S ZOsyn), K. pna (S Zosyn) Mild leukocytosis - resolved Low grade fever; improving Positive UA CXR neg Pressure ulcers Not infected Right hip fracture with hemiarthroplasty Feb 2018 DM HTN Sick sinus syndrome sp Pacemaker HLD CAD - SP NH and CABG Aortic stenosis. Pulmonary hypertension. Alzheimer dementia. PLAN - Continue Vancomycin #5 for persistent MRSA Bacteremia - Continue Zosyn #3/5 for sacral wound pathogens -06/27 SP Cefepime #3 -Will need NELDA to look for endocarditis and/or PPM infection if consistent with goals of care -REpeat 2 sets of Bcx - f/u repeat cultures - Monitor CBC and temps - wound care - Nutritional support Thank you for this consult. We will continue to follow the patient during this hospitalization. Discussed with Dr Matthews and Dr Mancera Subjective Allergies: Coded Allergies: No Known Allergies (Unverified , 08/10/13) Subjective afebrile >36hrs no leukoycotis remains bacteremic Objective Vital Signs Last 24 Hour Vital Signs Date Time Temp Pulse Resp B/P (MAP) Pulse Ox O2 Delivery O2 Flow Rate FiO2 06/29/18 12:00 84 06/29/18 12:00 Non-Rebreather 15.0 06/29/18 12:00 99.1 89 27 121/77 (92) 99 06/29/18 08:00 98 06/29/18 08:00 Non-Rebreather 15.0 06/29/18 08:00 98.9 93 26 134/62 (86) 98 06/29/18 04:00 Non-Rebreather 15.0 06/29/18 04:00 99.0 99 24 125/80 (95) 100 06/29/18 04:00 85 06/29/18 00:00 Venturi Mask 14.0 06/29/18 00:00 98.4 99 24 149/74 (99) 100 06/28/18 23:21 82 06/28/18 20:15 88 20 Venturi Mask 12.0 50 06/28/18 20:15 99 Venturi Mask 12.0 50 06/28/18 20:15 Venturi Mask 12.0 50 06/28/18 20:00 94 06/28/18 20:00 99.0 108 28 108/60 (76) 100 06/28/18 20:00 Venturi Mask 14.0 Height (Feet): 5 Height (Inches): 6.00 Weight (Pounds): 150 Objective Gen: Moaning, Awake but no following HEENT: NCAT, MMM, EOMI, PERRL LUNGS: CTAB, No W CARDS: RRR, S1, S2, No M/R/G, ABD: Soft, NT, ND, + BS Ext: Poor circulation to Ext (cool to touch) , Pulses 2+ B/L (DP, Rad): SKIN: Dry, No rashes, Large sacral ulcer. Mild odor no surrounding cellulitis, foot with eschar Microbiology Date/Time Source Procedure Growth Status 06/28/18 15:15 Blood Blood Culture - Preliminary Resulted 06/28/18 15:15 Blood Blood Culture - Preliminary Resulted 06/27/18 10:31 Blood Blood Culture - Preliminary Staphylococcus Aureus Resulted 06/27/18 10:20 Blood Blood Culture - Preliminary Staphylococcus Aureus Resulted Laboratory Tests Test 06/29/18 03:45 06/29/18 09:10 06/29/18 11:45 White Blood Count 6.3 K/UL (4.8-10.8) 6.5 K/UL (4.8-10.8) 8.1 K/UL (4.8-10.8) Red Blood Count 2.46 M/UL (4.20-5.40) L 2.14 M/UL (4.20-5.40) L 3.30 M/UL (4.20-5.40) L Hemoglobin 7.2 G/DL (12.0-16.0) L 6.2 G/DL (12.0-16.0) *L 9.7 G/DL (12.0-16.0) #L Hematocrit 22.4 % (37.0-47.0) L 21.8 % (37.0-47.0) L 30.7 % (37.0-47.0) #L Mean Corpuscular Volume 91 FL (80-99) 102 FL (80-99) #H 93 FL (80-99) # Mean Corpuscular Hemoglobin 29.2 PG (27.0-31.0) 29.0 PG (27.0-31.0) 29.2 PG (27.0-31.0) Mean Corpuscular Hemoglobin Concent 31.9 G/DL (32.0-36.0) L 28.4 G/DL (32.0-36.0) L 31.4 G/DL (32.0-36.0) L Red Cell Distribution Width 16.5 % (11.6-14.8) H 17.0 % (11.6-14.8) H 15.7 % (11.6-14.8) H Platelet Count 23 K/UL (150-450) L 21 K/UL (150-450) L 37 K/UL (150-450) #L Mean Platelet Volume 11.2 FL (6.5-10.1) H 16.5 FL (6.5-10.1) H 12.9 FL (6.5-10.1) H Neutrophils (%) (Auto) % (45.0-75.0) % (45.0-75.0) % (45.0-75.0) Lymphocytes (%) (Auto) % (20.0-45.0) % (20.0-45.0) % (20.0-45.0) Monocytes (%) (Auto) % (1.0-10.0) % (1.0-10.0) % (1.0-10.0) Eosinophils (%) (Auto) % (0.0-3.0) % (0.0-3.0) % (0.0-3.0) Basophils (%) (Auto) % (0.0-2.0) % (0.0-2.0) % (0.0-2.0) Differential Total Cells Counted 100 100 100 Neutrophils % (Manual) 80 % (45-75) H 79 % (45-75) H 72 % (45-75) Lymphocytes % (Manual) 2 % (20-45) L 8 % (20-45) L 4 % (20-45) L Monocytes % (Manual) 4 % (1-10) 5 % (1-10) 4 % (1-10) Eosinophils % (Manual) 0 % (0-3) 0 % (0-3) 0 % (0-3) Basophils % (Manual) 0 % (0-2) 0 % (0-2) 0 % (0-2) Band Neutrophils 14 % (0-8) H 8 % (0-8) 20 % (0-8) H Platelet Estimate Decreased L Decreased L Decreased L Platelet Morphology Normal Normal Normal Hypochromasia 1+ 2+ Anisocytosis 1+ 1+ Ovalocytes 1+ Megan Cells 1+ Sodium Level 143 MMOL/L (136-145) Potassium Level 3.9 MMOL/L (3.5-5.1) Chloride Level 113 MMOL/L (98-107) H Carbon Dioxide Level 18 MMOL/L (21-32) L Anion Gap 12 mmol/L (5-15) Blood Urea Nitrogen 34 mg/dL (7-18) H Creatinine 1.0 MG/DL (0.55-1.30) Estimat Glomerular Filtration Rate mL/min (>60) Glucose Level 116 MG/DL (74-106) H Calcium Level 8.4 MG/DL (8.5-10.1) L Current Medications Medications (Trade) Dose Ordered Sig/Yi Route PRN Reason Start Time Stop Time Status Last Admin Dose Admin Acetaminophen (Tylenol) 650 mg Q4H PRN ORAL T>100.5 06/28/18 09:30 07/24/18 13:29 Chlorhexidine Gluconate (Mirtha-Hex 2%) 1 applic DAILY@1999 TOPIC 06/29/18 20:00 07/29/18 19:59 Clonidine HCl (Catapres Tab) 0.1 mg Q8H PRN ORAL SBP>160mmHg 06/28/18 06:30 07/25/18 06:29 Dextrose (Dextrose 50%) 25 ml Q30M PRN IV Hypoglycemia 06/28/18 06:15 07/24/18 13:30 Dextrose (Dextrose 50%) 50 ml Q30M PRN IV hypoglycemia 06/28/18 06:15 07/24/18 13:44 Dextrose/Sodium Chloride 1,000 ml @ 50 mls/hr Q20H IV 06/29/18 11:30 07/29/18 11:29 06/29/18 11:36 Heparin Sodium/ Sodium Chloride (Heparin 2000 units/Ns 1000ml premix) 2,000 unit ONCE PRN INJ picc line placement 06/29/18 11:00 06/30/18 10:59 Insulin Aspart (NovoLOG) EVERY 6 HOURS SUBQ 06/28/18 12:00 07/24/18 16:29 06/29/18 12:22 Lidocaine HCl (Xylocaine 1% 30ml) 30 ml ONCE PRN INJ picc line placement 06/29/18 11:00 06/30/18 10:59 Lorazepam (Ativan) 1 mg Q6H PRN ORAL For Anxiety 06/28/18 07:00 07/02/18 12:52 Morphine Sulfate (Morphine Sulfate) 2 mg Q4H PRN IVP Moderate Pain (Pain Scale 4-6) 06/28/18 09:00 07/02/18 12:52 06/29/18 00:36 Olanzapine (ZyPREXA) 2.5 mg BID ORAL 06/28/18 09:00 07/25/18 10:59 06/28/18 18:51 Ondansetron HCl (Zofran) 4 mg Q6H PRN IVP Nausea & Vomiting 06/28/18 07:00 07/25/18 12:52 Phenazopyridine HCl (Pyridium) 100 mg DAILYPRN PRN ORAL dysuria 06/28/18 06:30 07/25/18 06:29 Piperacillin Sod/ Tazobactam Sod 3.375 gm/Dextrose 110 ml @ 27.5 mls/hr EVERY 8 HOURS IVPB 06/28/18 14:00 07/02/18 10:59 06/29/18 13:13 Polyethylene Glycol (Miralax) 17 gm DAILYPRN PRN ORAL Constipation 06/28/18 06:30 07/25/18 06:29 Temazepam (Restoril) 15 mg HSPRN PRN ORAL Insomnia 06/28/18 21:00 07/01/18 20:59 Vancomycin HCl (Vanco rx to dose) 1 ea DAILY PRN MISC . 06/28/18 09:00 07/24/18 14:44 Vancomycin HCl 750 mg/Sodium Chloride 275 ml @ 183.333 mls/hr Q24H IVPB 06/28/18 17:00 06/30/18 16:59 06/28/18 17:14 Roseann Bardales M.D. Jun 29, 2018 16:06
--- NOTE | 2018-06-29 16:47 | Internal Med Progress Note ---
Subjective Date of Service: Jun 29, 2018 Physician Name Aquilino Matthews Attending Physician Carlos Alberto Berkowitz MD Current Medications Medications (Trade) Dose Ordered Sig/Yi Route PRN Reason Start Time Stop Time Status Last Admin Dose Admin Acetaminophen (Tylenol) 650 mg Q4H PRN ORAL T>100.5 06/28/18 09:30 07/24/18 13:29 Chlorhexidine Gluconate (Mirtha-Hex 2%) 1 applic DAILY@2000 TOPIC 06/29/18 20:00 07/29/18 19:59 Clonidine HCl (Catapres Tab) 0.1 mg Q8H PRN ORAL SBP>160mmHg 06/28/18 06:30 07/25/18 06:29 Dextrose (Dextrose 50%) 25 ml Q30M PRN IV Hypoglycemia 06/28/18 06:15 07/24/18 13:30 Dextrose (Dextrose 50%) 50 ml Q30M PRN IV hypoglycemia 06/28/18 06:15 07/24/18 13:44 Dextrose/Sodium Chloride 1,000 ml @ 50 mls/hr Q20H IV 06/29/18 11:30 07/29/18 11:29 06/29/18 11:36 Heparin Sodium/ Sodium Chloride (Heparin 2000 units/Ns 1000ml premix) 2,000 unit ONCE PRN INJ picc line placement 06/29/18 11:00 06/30/18 10:59 Insulin Aspart (NovoLOG) EVERY 6 HOURS SUBQ 06/28/18 12:00 07/24/18 16:29 06/29/18 12:22 Lidocaine HCl (Xylocaine 1% 30ml) 30 ml ONCE PRN INJ picc line placement 06/29/18 11:00 06/30/18 10:59 Lorazepam (Ativan) 1 mg Q6H PRN ORAL For Anxiety 06/28/18 07:00 07/02/18 12:52 Morphine Sulfate (Morphine Sulfate) 2 mg Q4H PRN IVP Moderate Pain (Pain Scale 4-6) 06/28/18 09:00 07/02/18 12:52 06/29/18 00:36 Olanzapine (ZyPREXA) 2.5 mg BID ORAL 06/28/18 09:00 07/25/18 10:59 06/28/18 18:51 Ondansetron HCl (Zofran) 4 mg Q6H PRN IVP Nausea & Vomiting 06/28/18 07:00 07/25/18 12:52 Phenazopyridine HCl (Pyridium) 100 mg DAILYPRN PRN ORAL dysuria 06/28/18 06:30 07/25/18 06:29 Piperacillin Sod/ Tazobactam Sod 3.375 gm/Dextrose 110 ml @ 27.5 mls/hr EVERY 8 HOURS IVPB 06/28/18 14:00 07/02/18 10:59 06/29/18 13:13 Polyethylene Glycol (Miralax) 17 gm DAILYPRN PRN ORAL Constipation 06/28/18 06:30 07/25/18 06:29 Temazepam (Restoril) 15 mg HSPRN PRN ORAL Insomnia 06/28/18 21:00 07/01/18 20:59 Vancomycin HCl (Vanco rx to dose) 1 ea DAILY PRN MISC . 06/28/18 09:00 07/24/18 14:44 Vancomycin HCl 750 mg/Sodium Chloride 275 ml @ 183.333 mls/hr Q24H IVPB 06/28/18 17:00 06/30/18 16:59 06/28/18 17:14 Allergies: Coded Allergies: No Known Allergies (Unverified , 08/10/13) ROS Limited/Unobtainable: No Constitutional: Reports: no symptoms HEENT: Reports: no symptoms Cardiovascular: Reports: no symptoms Respiratory: Reports: no symptoms Gastrointestinal/Abdominal: Reports: no symptoms Genitourinary: Reports: no symptoms Neurologic/Psychiatric: Reports: no symptoms Subjective 82 YO F admitted with dehydration and hypoxia. Now sepsis. Cover for Int Med- Dr Berkowitz. MATTI Objective Last Vital Signs Date Time Temp Pulse Resp B/P (MAP) Pulse Ox O2 Delivery O2 Flow Rate FiO2 06/29/18 12:00 84 06/29/18 12:00 Non-Rebreather 15.0 06/29/18 12:00 99.1 27 121/77 (92) 99 06/28/18 20:15 50 Laboratory Tests Test 06/29/18 03:45 06/29/18 09:10 06/29/18 11:45 White Blood Count 6.3 K/UL (4.8-10.8) 6.5 K/UL (4.8-10.8) 8.1 K/UL (4.8-10.8) Red Blood Count 2.46 M/UL (4.20-5.40) L 2.14 M/UL (4.20-5.40) L 3.30 M/UL (4.20-5.40) L Hemoglobin 7.2 G/DL (12.0-16.0) L 6.2 G/DL (12.0-16.0) *L 9.7 G/DL (12.0-16.0) #L Hematocrit 22.4 % (37.0-47.0) L 21.8 % (37.0-47.0) L 30.7 % (37.0-47.0) #L Mean Corpuscular Volume 91 FL (80-99) 102 FL (80-99) #H 93 FL (80-99) # Mean Corpuscular Hemoglobin 29.2 PG (27.0-31.0) 29.0 PG (27.0-31.0) 29.2 PG (27.0-31.0) Mean Corpuscular Hemoglobin Concent 31.9 G/DL (32.0-36.0) L 28.4 G/DL (32.0-36.0) L 31.4 G/DL (32.0-36.0) L Red Cell Distribution Width 16.5 % (11.6-14.8) H 17.0 % (11.6-14.8) H 15.7 % (11.6-14.8) H Platelet Count 23 K/UL (150-450) L 21 K/UL (150-450) L 37 K/UL (150-450) #L Mean Platelet Volume 11.2 FL (6.5-10.1) H 16.5 FL (6.5-10.1) H 12.9 FL (6.5-10.1) H Neutrophils (%) (Auto) % (45.0-75.0) % (45.0-75.0) % (45.0-75.0) Lymphocytes (%) (Auto) % (20.0-45.0) % (20.0-45.0) % (20.0-45.0) Monocytes (%) (Auto) % (1.0-10.0) % (1.0-10.0) % (1.0-10.0) Eosinophils (%) (Auto) % (0.0-3.0) % (0.0-3.0) % (0.0-3.0) Basophils (%) (Auto) % (0.0-2.0) % (0.0-2.0) % (0.0-2.0) Differential Total Cells Counted 100 100 100 Neutrophils % (Manual) 80 % (45-75) H 79 % (45-75) H 72 % (45-75) Lymphocytes % (Manual) 2 % (20-45) L 8 % (20-45) L 4 % (20-45) L Monocytes % (Manual) 4 % (1-10) 5 % (1-10) 4 % (1-10) Eosinophils % (Manual) 0 % (0-3) 0 % (0-3) 0 % (0-3) Basophils % (Manual) 0 % (0-2) 0 % (0-2) 0 % (0-2) Band Neutrophils 14 % (0-8) H 8 % (0-8) 20 % (0-8) H Platelet Estimate Decreased L Decreased L Decreased L Platelet Morphology Normal Normal Normal Hypochromasia 1+ 2+ Anisocytosis 1+ 1+ Ovalocytes 1+ [place] Cells 1+ Sodium Level 143 MMOL/L (136-145) Potassium Level 3.9 MMOL/L (3.5-5.1) Chloride Level 113 MMOL/L (98-107) H Carbon Dioxide Level 18 MMOL/L (21-32) L Anion Gap 12 mmol/L (5-15) Blood Urea Nitrogen 34 mg/dL (7-18) H Creatinine 1.0 MG/DL (0.55-1.30) Estimat Glomerular Filtration Rate mL/min (>60) Glucose Level 116 MG/DL (74-106) H Calcium Level 8.4 MG/DL (8.5-10.1) L Microbiology Date/Time Source Procedure Growth Status 06/28/18 15:15 Blood Blood Culture - Preliminary Resulted 06/28/18 15:15 Blood Blood Culture - Preliminary Resulted 06/27/18 10:31 Blood Blood Culture - Preliminary Staphylococcus Aureus Resulted 06/27/18 10:20 Blood Blood Culture - Preliminary Staphylococcus Aureus Resulted Intake and Output 06/28/18 06/29/18 18:59 06:59 Intake Total 1954.458 ml 920.00 ml Output Total 600 ml 200 ml Balance 1354.458 ml 720.00 ml Intake Free Water 60 ml IV Total 1754.458 ml 860.00 ml Other 200 ml Output Urine Total 600 ml 200 ml # Bowel Movements 1 Objective Objective General: No acute distress, awake and less responsive, Sleepy, cachectic. HEENT: NCAT, sclera anicteric, PERRL, NG tube. Neck: Supple, no significant jugular venous distention, Lungs: Poor inspiratory effort, decreased air in the bases , no Wheeze or Rales. Heart: Regular rate and rhythm, normal S1/S2, no murmur. Abdomen: soft, nontender, nondistended. Normoactive bowel sounds. / Rectal: Refused and deferred. Extremities: No Cyanosis , No clubbing, Left UE edema. Lateral lower extremity / feet dressing intact. Neuro: A&O x 1, Able to move all extremities Skin: warm, no rashes or lesions, ecchymosis in bilateral upper extremity noted. Assessment/Plan Assessment/Plan Assessment/Plan Assessment/Plan 1. Sepsis / METHACILLIN RESISTANT STAPHYLOCOCCUS AUREUS bacteremia, lactic acidosis. 2. Failure to thrive with severe protein calorie malnutrition. 3. Coronary artery disease. 4. Diabetes, type 2. 5. Hypertension. 6. Sick sinus syndrome. 7. Hypercholesterolemia. 8. Aortic stenosis. 9. Pulmonary hypertension. 10. Alzheimer dementia. 11. Acute tubular necrosis/acute kidney injury most likely secondary to dehydration and sepsis. 12. Sacral decubitus ulcer, stage III 13. Severe dehydration 14. Hypokalemia. 15. Abnormal liver function test TREATMENT: 1. Patient on broad spectrum antibiotics with vancomycin and Zosyn IV. Will require transesophageal echocardiogram to R/O endocarditis-see ID note 2. Coronary artery disease. The patient is status post coronary artery bypass graft in 2017. 3. Diabetes, type 2. The patient has been started on NovoLog sliding scale. 4. Hypertension. The patient is to continue on atenolol and losartan as above. 5. Sick sinus syndrome. The patient is status post pacemaker implantation. 6. Hypercholesterolemia. Continue simvastatin as above. 7. Aortic stenosis. 8. Pulmonary hypertension. 9. Alzheimer dementia. KCl supplement, will follow her laboratory as well as culture in the morning. Continue tube feeding at rate of 45 cc/hr. CODE STATUS is full code as per ARLET, DVT prophylaxis: Heparin subcu. Aquilino Matthews MD Jun 29, 2018 16:47
[2018-06-29] MEDS: Vancomycin 750 MG in NS 275 ML IVPB SCH (17:14)
[2018-06-29] MEDS ORDERED: Acetaminophen 650mg/20.3ml NG PRN (18:15)
--- NOTE | 2018-06-29 19:16 | NUR ---
HAND-OFF: Report given to SOILA Ridley.
--- NOTE | 2018-06-29 19:17 | NUR ---
NURSE NOTES: Received bedside report from SOILA Ann.Patient stable,nonverbal,sleeping in a bed,moaning all the time,tolerated non rebreather mask with 15L well, SR on monitoring analyst,BS active in all quadrants,no feeding started yet,NGT in place,will confirm with doctor, no s/s of pain,no respiratory distress noted,bed in a low safety position,call light within a reach,will continue to monitor.
[2018-06-29 20:00] VITALS: BP 118/67
[2018-06-29] MEDS: Dyna-Hex 2% Top Sol 2oz TOPIC SCH (20:23)
--- NOTE | 2018-06-29 20:45 | NUR ---
CASE MANAGEMENT: REVIEW SI: DEHYDRATION . SEPSIS . SACRAL DECUBITUS ULCER, STAGE III T 100.2 HR 105 RR 26 BP 131/75 SAT 93% VENTURI MASK FIO2 50 H/H 9.7/30.7 IS: VANCO IV Q24HR ZOSYN IV Q8HR S/P TRANSFUSION PRBC STEP DOWN UNIT STATUS DCP: PATIENT IS FROM [facility]\ PLAN: NELDA
--- NOTE | 2018-06-29 22:00 | NUR ---
NURSE NOTES: Patient's grand daughter at bedside,consent for PICC line placement signed.
--- NOTE | 2018-06-29 22:15 | NUR ---
NURSE NOTES: Called to confirm feeding,received instruction to start feeding in a morning.Will endorse next shift,charge nurse aware.
[2018-06-30] VITALS: BP 122/60
[2018-06-30 04:00] VITALS: BP 118/54
[2018-06-30] MEDS: Piperacillin/Tazobactam 3.375 GM in D5W 110 ML IVPB SCH (05:28)
[2018-06-30] MEDS: NovoLOG Insulin Flexpen SUBQ SCH ×4 (05:28→17:23)
[2018-06-30 05:42] LABS: HEMATOCRIT 27.3 % (37.0-47.0); HEMOGLOBIN 8.7 G/DL (12.0-16.0); MEAN CORPUSCULAR VOLUME 92 FL (80-99); PLATELET COUNT 36 K/UL (150-450); RED BLOOD COUNT 2.98 M/UL (4.20-5.40); WHITE BLOOD COUNT 8.1 K/UL (4.8-10.8)
[2018-06-30 06:09] LABS: INR 1.3 (0.9-1.1)
[2018-06-30 06:21] LABS: ALANINE AMINOTRANSFERASE 78 U/L (12-78); ALBUMIN 1.2 G/DL (3.4-5.0); ALBUMIN/GLOBULIN RATIO 0.3 (1.0-2.7); ALKALINE PHOSPHATASE 132 U/L (46-116); ANION GAP 11 mmol/L (5-15); ASPARTATE AMINO TRANSFERASE 163 U/L (15-37); BILIRUBIN,TOTAL 2.6 MG/DL (0.2-1.0); BLOOD UREA NITROGEN 31 mg/dL (7-18); CALCIUM 7.8 MG/DL (8.5-10.1); CARBON DIOXIDE 19 MMOL/L (21-32); CHLORIDE 113 MMOL/L (98-107); CREATININE 0.9 MG/DL (0.55-1.30); PHOSPHORUS 2.4 MG/DL (2.5-4.9); POTASSIUM 3.5 MMOL/L (3.5-5.1); SODIUM 143 MMOL/L (136-145)
[2018-06-30 06:40] LABS: BILIRUBIN,DIRECT 1.8 MG/DL (0.0-0.3)
--- NOTE | 2018-06-30 06:50 | NUR ---
NURSE NOTES: notified lab results Mg 1.3 Ph 2.4 Ca 7.8.Charge nurse aware.
--- NOTE | 2018-06-30 07:05 | NUR ---
HAND-OFF: Report given to SOILA Ann.Patient stable.
--- NOTE | 2018-06-30 07:10 | NUR ---
NURSE NOTES: Received report from Shaye Martinez RN. Patient is asleep in bed, A/O x1. No s/s of acute distress noted. Sinus rhythm on radiation monitor. Receiving 15L O2 via venturi mask at 50%. Left nare NGT in place and set to low-intermittent suction. Purewick catheter in place and suctioning well. Right upper midline double lumen catheter, intact and patent; right hand 22g IV, intact and patent; left thumb 24g IV, intact and patent. Bed locked in lowest position with side rails up x3. Call light left within reach. Will continue to monitor. Addendum: 06/30/18 at 1953 by JR WASHINGTON RN TIME IS 1909 -- NOT 07
--- NOTE | 2018-06-30 07:11 | NUR ---
NURSE NOTES: Received report from SOILA Ridley. Patient is resting in bed in stable condition. No s/sx of SOB, breathing is even and unlabored. Observed no presence of pain or discomfort at this time. Bed is in lowest position, brakes engaged. Call light is kept within easy reach. Will continue to monitor patient.
[2018-06-30] MEDS: D5 1/2NS 1,000 ML IV SCH (07:31)
--- NOTE | 2018-06-30 07:38 | NUR ---
NURSE NOTES: Per report, night nurse endorsed to this nurse that per Dr. Mancera, okay to resume tube feeding in AM. Noted. Will continue to monitor patient.
[2018-06-30 08:00] VITALS: BP 120/62
[2018-06-30] MEDS: OLANZapine 2.5mg tab ORAL SCH ×2 (08:14→17:23)
--- NOTE | 2018-06-30 10:43 | NUR ---
ST NOTE: SWALLOW STATUS AND D/C SUMMARY: FOLLOWED UP PT'S CONDITIONS. PT IS LETHARGIC AND UNABLE TO PARTICIPATE. NGT INSERTED BUT NO TUBE FEEDING STARTED YET. PER BOBBI CM OKAY TO RESUME TUBE FEEDING PER MD. CURRENTLY, PT IS NOT A CANDIDATE FOR SKILLED ST SERVICE. PLEASE RE-ORDER ST EVAL AND EVERWALLOW STUDY WHEN PT IS MEDICALLY IMPROVED. D/W BOBBI CM. Addendum: 06/30/18 at 1156 by ZELALEM NOBLE FIBROUS PLASTERER D/W Rosenda.PJudie, CHRISTI, RE:PT'S CONDITIONS AND RECOMMENDATIONS. PER N.P., POSSIBLE COFFEE GROUND DUE TO BLACKISH SUBSTANCE WAS COMING OUT THROUGH THE NGT. PT PROBABLY REQUIRES LONG-TERM NONORAL FEEDING MEANS TO MEET NUTRITION AND HYDRATION NEEDS DUE TO PT CURRENT MEDICAL CONDITIONS. ALSO, SPOKE TO MD, DR. BINGHAM RE:PT'S CONDITIONS.
--- NOTE | 2018-06-30 11:20 | NUR ---
NURSE NOTES: Dr. Mancera at nurse station. Informed MD that patient has blackish substance coming out of NGT. Dr. Mancera acknowledged and ordered Dr. Wallace as GI consult. Noted. Per Dr. Mancera hold tube feeding at this time. Patient is on IV fluids. Noted. Will continue to monitor patient.
[2018-06-30] MEDS ORDERED: Potassium Chloride 40 MEQ in Sodium Chloride 550 ML IVPB ONE (11:45)
--- NOTE | 2018-06-30 11:59 | Internal Med Progress Note ---
Subjective Date of Service: Jun 30, 2018 Physician Name MatthewsAquilino Attending Physician Carlos Alberto Berkowitz MD Current Medications Medications (Trade) Dose Ordered Sig/Yi Route PRN Reason Start Time Stop Time Status Last Admin Dose Admin Acetaminophen (Tylenol) 650 mg Q4H PRN NG Mild Pain/Temp > 100.5 06/29/18 18:15 07/29/18 18:14 Chlorhexidine Gluconate (Mirtha-Hex 2%) 1 applic DAILY@2000 TOPIC 06/29/18 20:00 07/29/18 19:59 06/29/18 20:23 Clonidine HCl (Catapres Tab) 0.1 mg Q8H PRN ORAL SBP>160mmHg 06/28/18 06:30 07/25/18 06:29 Dextrose (Dextrose 50%) 25 ml Q30M PRN IV Hypoglycemia 06/28/18 06:15 07/24/18 13:30 Dextrose (Dextrose 50%) 50 ml Q30M PRN IV hypoglycemia 06/28/18 06:15 07/24/18 13:44 Dextrose/Sodium Chloride 1,000 ml @ 50 mls/hr Q20H IV 06/29/18 11:30 07/29/18 11:29 06/30/18 07:31 Insulin Aspart (NovoLOG) EVERY 6 HOURS SUBQ 06/28/18 12:00 07/24/18 16:29 06/29/18 12:22 Lorazepam (Ativan) 1 mg Q6H PRN ORAL For Anxiety 06/28/18 07:00 07/02/18 12:52 Magnesium Sulfate 100 ml @ 100 mls/hr Q1H IV 06/30/18 12:45 06/30/18 14:44 UNV Morphine Sulfate (Morphine Sulfate) 2 mg Q4H PRN IVP Moderate Pain (Pain Scale 4-6) 06/28/18 09:00 07/02/18 12:52 06/29/18 22:01 Olanzapine (ZyPREXA) 2.5 mg BID ORAL 06/28/18 09:00 07/25/18 10:59 06/30/18 08:14 Ondansetron HCl (Zofran) 4 mg Q6H PRN IVP Nausea & Vomiting 06/28/18 07:00 07/25/18 12:52 Pantoprazole (Protonix) 40 mg EVERY 12 HOURS IVP 06/30/18 21:00 07/30/18 20:59 UNV Potassium Chloride 40 meq/ Sodium Chloride 570 ml @ 142.5 mls/ hr ONCE ONCE IVPB 06/30/18 11:45 06/30/18 15:44 UNV Sodium Phosphate 30 mm/Sodium Chloride 285 ml @ 47.5 mls/hr ONCE ONCE IV 06/30/18 12:45 06/30/18 18:44 UNV Temazepam (Restoril) 15 mg HSPRN PRN ORAL Insomnia 06/28/18 21:00 07/01/18 20:59 06/30/18 01:10 Vancomycin HCl (Vanco rx to dose) 1 ea DAILY PRN MISC . 06/28/18 09:00 07/24/18 14:44 Vancomycin HCl 750 mg/Sodium Chloride 275 ml @ 183.333 mls/hr Q24H IVPB 06/28/18 17:00 07/01/18 16:59 06/29/18 17:14 Allergies: Coded Allergies: No Known Allergies (Unverified , 08/10/13) ROS Limited/Unobtainable: Yes Subjective 82 YO F admitted with dehydration and hypoxia. Now sepsis. Cover for Int Med- Dr Berkowitz. MATTI. Continues on non-rebreather Objective Last Vital Signs Date Time Temp Pulse Resp B/P (MAP) Pulse Ox O2 Delivery O2 Flow Rate FiO2 06/30/18 08:00 63 06/30/18 08:00 97.7 24 120/62 (81) 100 06/30/18 08:00 Non-Rebreather 15.0 06/30/18 07:08 50 Laboratory Tests Test 06/30/18 03:10 White Blood Count 8.1 K/UL (4.8-10.8) Red Blood Count 2.98 M/UL (4.20-5.40) L Hemoglobin 8.7 G/DL (12.0-16.0) L Hematocrit 27.3 % (37.0-47.0) L Mean Corpuscular Volume 92 FL (80-99) Mean Corpuscular Hemoglobin 29.3 PG (27.0-31.0) Mean Corpuscular Hemoglobin Concent 31.9 G/DL (32.0-36.0) L Red Cell Distribution Width 15.0 % (11.6-14.8) H Platelet Count 36 K/UL (150-450) L Mean Platelet Volume 12.6 FL (6.5-10.1) H Neutrophils (%) (Auto) % (45.0-75.0) Lymphocytes (%) (Auto) % (20.0-45.0) Monocytes (%) (Auto) % (1.0-10.0) Eosinophils (%) (Auto) % (0.0-3.0) Basophils (%) (Auto) % (0.0-2.0) Differential Total Cells Counted 100 Neutrophils % (Manual) 86 % (45-75) H Lymphocytes % (Manual) 2 % (20-45) L Monocytes % (Manual) 3 % (1-10) Eosinophils % (Manual) 0 % (0-3) Basophils % (Manual) 0 % (0-2) Band Neutrophils 9 % (0-8) H Platelet Estimate Decreased L Platelet Morphology Giant Platelets Occasional Hypochromasia 1+ Anisocytosis 1+ Prothrombin Time 13.9 SEC (9.30-11.50) H Prothromb Time International Ratio 1.3 (0.9-1.1) H Activated Partial Thromboplast Time 36 SEC (23-33) H Sodium Level 143 MMOL/L (136-145) Potassium Level 3.5 MMOL/L (3.5-5.1) Chloride Level 113 MMOL/L (98-107) H Carbon Dioxide Level 19 MMOL/L (21-32) L Anion Gap 11 mmol/L (5-15) Blood Urea Nitrogen 31 mg/dL (7-18) H Creatinine 0.9 MG/DL (0.55-1.30) Estimat Glomerular Filtration Rate mL/min (>60) Glucose Level 98 MG/DL (74-106) Calcium Level 7.8 MG/DL (8.5-10.1) L Phosphorus Level 2.4 MG/DL (2.5-4.9) L Magnesium Level 1.3 MG/DL (1.8-2.4) L Total Bilirubin 2.6 MG/DL (0.2-1.0) H Direct Bilirubin 1.8 MG/DL (0.0-0.3) H Aspartate Amino Transf (AST/SGOT) 163 U/L (15-37) H Alanine Aminotransferase (ALT/SGPT) 78 U/L (12-78) Alkaline Phosphatase 132 U/L (46-116) H Total Protein 4.7 G/DL (6.4-8.2) L Albumin 1.2 G/DL (3.4-5.0) L Globulin 3.5 g/dL Albumin/Globulin Ratio 0.3 (1.0-2.7) L Microbiology Date/Time Source Procedure Growth Status 06/29/18 18:15 Blood Blood Culture - Preliminary Resulted 06/29/18 18:00 Blood Blood Culture - Preliminary Resulted 06/28/18 15:15 Blood Blood Culture - Preliminary Staphylococcus Aureus Resulted 06/28/18 15:15 Blood Blood Culture - Preliminary Staphylococcus Aureus Resulted Intake and Output 06/29/18 06/30/18 19:00 07:00 Intake Total 1357.500 ml 851.25 ml Output Total 400 ml 350 ml Balance 957.500 ml 501.25 ml Intake Free Water 60 ml IV Total 1297.500 ml 751.25 ml Other 100 ml Output Urine Total 400 ml 350 ml Objective Objective General: No acute distress, awake and less responsive, Sleepy, cachectic. HEENT: NCAT, sclera anicteric, PERRL, NG tube. Neck: Supple, no significant jugular venous distention, Lungs: Non-rebreather mask; Poor inspiratory effort, decreased air in the bases , Bilateral Wheeze and Rales. Heart: Regular rate and rhythm, normal S1/S2, no murmur. Abdomen: soft, nontender, nondistended. Normoactive bowel sounds. / Rectal: Refused and deferred. Extremities: No Cyanosis , No clubbing, Left UE edema. Lateral lower extremity / feet dressing intact. Neuro: A&O x 1, Able to move all extremities Skin: warm, no rashes or lesions, ecchymosis in bilateral upper extremity noted. Assessment/Plan Status: not improved Assessment/Plan Assessment/Plan Assessment/Plan 1. Sepsis / METHACILLIN RESISTANT STAPHYLOCOCCUS AUREUS bacteremia, lactic acidosis. 2. Failure to thrive with severe protein calorie malnutrition. 3. Coronary artery disease. 4. Diabetes, type 2. 5. Hypertension. 6. Sick sinus syndrome. 7. Hypercholesterolemia. 8. Aortic stenosis. 9. Pulmonary hypertension. 10. Alzheimer dementia. 11. Acute tubular necrosis/acute kidney injury most likely secondary to dehydration and sepsis. 12. Sacral decubitus ulcer, stage III 13. Severe dehydration 14. Hypokalemia. 15. Abnormal liver function test 16. Anemia/thrombocytopenia TREATMENT: 1. Patient on broad spectrum antibiotics with vancomycin and Zosyn IV. Will require transesophageal echocardiogram to R/O endocarditis-see ID note 2. Coronary artery disease. The patient is status post coronary artery bypass graft in 2017. 3. Diabetes, type 2. The patient has been started on NovoLog sliding scale. 4. Hypertension. The patient is to continue on atenolol and losartan as above. 5. Sick sinus syndrome. The patient is status post pacemaker implantation. 6. Hypercholesterolemia. Continue simvastatin as above. 7. Aortic stenosis. 8. Pulmonary hypertension. 9. Alzheimer dementia. 10. Anemia/thrombocytopenia-S/P 1 unit PRBC on 06/28/18. Heme/Onc consult. Hold heparin Restart tube feeding at rate of 45 cc/hr. CODE STATUS is full code as per ARLET, DVT prophylaxis: D/C Heparin subcu due to thrombocytopenia Aquilino Matthews MD Jun 30, 2018 11:59
[2018-06-30 12:00] VITALS: BP 136/78
--- NOTE | 2018-06-30 12:44 | General Progress Note ---
Assessment/Plan Problem List: (1) Acute encephalopathy Assessment & Plan: metabolic ICD Codes: G93.40 - Encephalopathy, unspecified SNOMED: 20750417, 139892186 (2) Delirium ICD Codes: R41.0 - Disorientation, unspecified SNOMED: 4199562 (3) Alzheimer's dementia ICD Codes: G30.9 - Alzheimer's disease, unspecified; F02.80 - Dementia in other diseases classified elsewhere without behavioral disturbance SNOMED: 64455853 Assessment/Plan Zyprexa the pt lacks capacity soft restraints if needed Subjective Neurologic/Psychiatric: Reports: anxiety, depressed, emotional problems Allergies: Coded Allergies: No Known Allergies (Unverified , 08/10/13) Subjective cont to be agitated lethargic Objective Last 24 Hour Vital Signs Date Time Temp Pulse Resp B/P (MAP) Pulse Ox O2 Delivery O2 Flow Rate FiO2 06/30/18 12:00 97.0 83 22 136/78 (97) 100 06/30/18 11:51 Venturi Mask 12.0 06/30/18 08:00 63 06/30/18 08:00 97.7 75 24 120/62 (81) 100 06/30/18 08:00 Non-Rebreather 15.0 06/30/18 07:08 82 20 Venturi Mask 12.0 50 06/30/18 07:08 100 Venturi Mask 12.0 50 06/30/18 07:08 Venturi Mask 12.0 50 06/30/18 04:00 97.9 91 28 118/54 (75) 100 06/30/18 04:00 Non-Rebreather 15.0 06/30/18 03:56 78 06/30/18 00:00 98.2 89 28 122/60 (80) 100 06/30/18 00:00 Non-Rebreather 15.0 06/29/18 23:26 96 06/29/18 20:00 98.8 93 20 118/67 (84) 100 06/29/18 20:00 Non-Rebreather 15.0 06/29/18 20:00 92 06/29/18 19:48 Venturi Mask 12.0 50 06/29/18 19:48 98 Venturi Mask 12.0 50 06/29/18 19:47 85 20 Venturi Mask 12.0 50 06/29/18 16:00 Non-Rebreather 15.0 06/29/18 16:00 85 06/29/18 16:00 100.2 105 26 131/75 (93) 93 Intake and Output 06/29/18 06/30/18 19:00 07:00 Intake Total 1357.500 ml 851.25 ml Output Total 400 ml 350 ml Balance 957.500 ml 501.25 ml Intake Free Water 60 ml IV Total 1297.500 ml 751.25 ml Other 100 ml Output Urine Total 400 ml 350 ml Laboratory Tests 06/30/18 03:10: White Blood Count 8.1, Red Blood Count 2.98L, Hemoglobin 8.7L, Hematocrit 27.3L , Mean Corpuscular Volume 92, Mean Corpuscular Hemoglobin 29.3, Mean Corpuscular Hemoglobin Concent 31.9L, Red Cell Distribution Width 15.0H, Platelet Count 36L, Mean Platelet Volume 12.6H, Neutrophils (%) (Auto) , Lymphocytes (%) (Auto) , Monocytes (%) (Auto) , Eosinophils (%) (Auto) , Basophils (%) (Auto) , Differential Total Cells Counted 100, Neutrophils % ( Manual) 86H, Lymphocytes % (Manual) 2L, Monocytes % (Manual) 3, Eosinophils % ( Manual) 0, Basophils % (Manual) 0, Band Neutrophils 9H, Platelet Estimate DecreasedL, Platelet Morphology , Giant Platelets Occasional, Hypochromasia 1+, Anisocytosis 1+, Prothrombin Time 13.9H, Prothromb Time International Ratio 1.3H , Activated Partial Thromboplast Time 36H, Sodium Level 143, Potassium Level 3.5 , Chloride Level 113H, Carbon Dioxide Level 19L, Anion Gap 11, Blood Urea Nitrogen 31H, Creatinine 0.9, Estimat Glomerular Filtration Rate , Glucose Level 98, Calcium Level 7.8L, Phosphorus Level 2.4L, Magnesium Level 1.3L, Total Bilirubin 2.6H, Direct Bilirubin 1.8H, Aspartate Amino Transf (AST/SGOT) 163H, Alanine Aminotransferase (ALT/SGPT) 78, Alkaline Phosphatase 132H, Total Protein 4.7L, Albumin 1.2L, Globulin 3.5, Albumin/Globulin Ratio 0.3L Height (Feet): 5 Height (Inches): 6.00 Weight (Pounds): 145 General Appearance: lethargic, agitated Farhadi,Pantea MD Jun 30, 2018 12:44
--- NOTE | 2018-06-30 12:57 | Surgery Progress Note ---
Surgery Progress Note Subjective Additional Comments no acute events. stable. unchanged. Objective Last 24 Hour Vital Signs Date Time Temp Pulse Resp B/P (MAP) Pulse Ox O2 Delivery O2 Flow Rate FiO2 06/30/18 12:00 97.0 83 22 136/78 (97) 100 06/30/18 11:51 Venturi Mask 12.0 06/30/18 08:00 63 06/30/18 08:00 97.7 75 24 120/62 (81) 100 06/30/18 08:00 Non-Rebreather 15.0 06/30/18 07:08 82 20 Venturi Mask 12.0 50 06/30/18 07:08 100 Venturi Mask 12.0 50 06/30/18 07:08 Venturi Mask 12.0 50 06/30/18 04:00 97.9 91 28 118/54 (75) 100 06/30/18 04:00 Non-Rebreather 15.0 06/30/18 03:56 78 06/30/18 00:00 98.2 89 28 122/60 (80) 100 06/30/18 00:00 Non-Rebreather 15.0 06/29/18 23:26 96 06/29/18 20:00 98.8 93 20 118/67 (84) 100 06/29/18 20:00 Non-Rebreather 15.0 06/29/18 20:00 92 06/29/18 19:48 Venturi Mask 12.0 50 06/29/18 19:48 98 Venturi Mask 12.0 50 06/29/18 19:47 85 20 Venturi Mask 12.0 50 06/29/18 16:00 Non-Rebreather 15.0 06/29/18 16:00 85 06/29/18 16:00 100.2 105 26 131/75 (93) 93 I&O Intake and Output 06/29/18 06/30/18 19:00 07:00 Intake Total 1357.500 ml 851.25 ml Output Total 400 ml 350 ml Balance 957.500 ml 501.25 ml Intake Free Water 60 ml IV Total 1297.500 ml 751.25 ml Other 100 ml Output Urine Total 400 ml 350 ml Dressing: other Wound: other Drains: other Cardiovascular: RSR Respiratory: decreased breath sounds Abdomen: soft, present bowel sounds, non-distended Extremities: other Laboratory Tests Test 2/13/19 03:10 White Blood Count 8.1 K/UL (4.8-10.8) Red Blood Count 2.98 M/UL (4.20-5.40) L Hemoglobin 8.7 G/DL (12.0-16.0) L Hematocrit 27.3 % (37.0-47.0) L Mean Corpuscular Volume 92 FL (80-99) Mean Corpuscular Hemoglobin 29.3 PG (27.0-31.0) Mean Corpuscular Hemoglobin Concent 31.9 G/DL (32.0-36.0) L Red Cell Distribution Width 15.0 % (11.6-14.8) H Platelet Count 36 K/UL (150-450) L Mean Platelet Volume 12.6 FL (6.5-10.1) H Neutrophils (%) (Auto) % (45.0-75.0) Lymphocytes (%) (Auto) % (20.0-45.0) Monocytes (%) (Auto) % (1.0-10.0) Eosinophils (%) (Auto) % (0.0-3.0) Basophils (%) (Auto) % (0.0-2.0) Differential Total Cells Counted 100 Neutrophils % (Manual) 86 % (45-75) H Lymphocytes % (Manual) 2 % (20-45) L Monocytes % (Manual) 3 % (1-10) Eosinophils % (Manual) 0 % (0-3) Basophils % (Manual) 0 % (0-2) Band Neutrophils 9 % (0-8) H Platelet Estimate Decreased L Platelet Morphology Giant Platelets Occasional Hypochromasia 1+ Anisocytosis 1+ Prothrombin Time 13.9 SEC (9.30-11.50) H Prothromb Time International Ratio 1.3 (0.9-1.1) H Activated Partial Thromboplast Time 36 SEC (23-33) H Sodium Level 143 MMOL/L (136-145) Potassium Level 3.5 MMOL/L (3.5-5.1) Chloride Level 113 MMOL/L (98-107) H Carbon Dioxide Level 19 MMOL/L (21-32) L Anion Gap 11 mmol/L (5-15) Blood Urea Nitrogen 31 mg/dL (7-18) H Creatinine 0.9 MG/DL (0.55-1.30) Estimat Glomerular Filtration Rate mL/min (>60) Glucose Level 98 MG/DL (74-106) Calcium Level 7.8 MG/DL (8.5-10.1) L Phosphorus Level 2.4 MG/DL (2.5-4.9) L Magnesium Level 1.3 MG/DL (1.8-2.4) L Total Bilirubin 2.6 MG/DL (0.2-1.0) H Direct Bilirubin 1.8 MG/DL (0.0-0.3) H Aspartate Amino Transf (AST/SGOT) 163 U/L (15-37) H Alanine Aminotransferase (ALT/SGPT) 78 U/L (12-78) Alkaline Phosphatase 132 U/L (46-116) H Total Protein 4.7 G/DL (6.4-8.2) L Albumin 1.2 G/DL (3.4-5.0) L Globulin 3.5 g/dL Albumin/Globulin Ratio 0.3 (1.0-2.7) L Plan Problems: (1) Sepsis Assessment & Plan: Leukocytosis resolved LFT's elevated w/ t bili / d bili - improved AM labs ordered hydrate US Impression: Limited exam, as described. Note inability to visualize the spleen Negative for gallstones or dilated bile ducts Questionable bilateral renal parapelvic cysts Small to moderate right pleural effusion no acute surgical intervention planned. will follow with recs. (2) Sacral decubitus ulcer, stage III Assessment & Plan: DTPI sacrum.Maroon- indurated discoloration with opening at sacral coccygeal area(L)3.8cm x (W)1.4cm with entire wound measuring (L)10cmx(W) 12cm.Small amt malodorous brown exudate. Stable dry eschar R heel with dry peeling skin periwound (L)2cm x (W)3.5cm. Periwound is also red and boggy. Small dry eschar noted to lateral R 5th metatarsal (L)1.4cm x (W)0.3cm. L heel is boggy but colour is dusky . Resolving skin tear lateral R tibia. Wound bed is clean and dry. Tx. Plan: Cleanse Sacral wound with Saline.Apply Therahoney to opening at sacrococcygeal area.Cavilon skin barrier to DTPI. Cover with Optifoam drsg .Change Daily and prn. Apply Betadine to R heel and Lateral R 5th metatarsal.Cover with Abd pad .Wrap with kerlix daily and prn. Apply Cavilon Skin Barrier to L heel.Cover with Optifoam drsg .Change every 7 days and prn. Reposition at least every 2hours or as tolerated. Off-load heels with pillow. (3) Rectal bleed (4) Protein-calorie malnutrition, severe (5) Dehydration Sher Younger Jun 30, 2018 12:57
--- NOTE | 2018-06-30 13:19 | NUR ---
RADIOLOGY DEPT CHEST POST PICC LINE PLMT COMPLETED (OPAL).VALDEZ
--- NOTE | 2018-06-30 13:30 | GI Initial Consult Note ---
History of Present Illness General Date patient seen: Jun 30, 2018 Time patient seen: 13:24 Reason for Hospitalization: General Complaint Referring physician: LAUREN GARCIA Reason for Consultation: GI BLEED / DYSPHAGIA Present Illness HPI Patient presents from nursing facility with reports of decreased oral intake General malaise Patient upon arrival is not verbal with staff History of present illness is significantly limited There was no reports of vomiting or diarrhea Unclear change in medications There was no reports of any rash Attempt is being made to contact nursing facility and obtain further history as well GI consulted for coffee-ground emesis noted through the NGT. Initial HPI as noted above. ROS limited, patient seen no apparent distress, NGT present with coffee grounds noted. Labs reviewed; patient presents today with anemia most likely secondary to blood loss, elevated LFTs and reported poor p.o. intake with possible dysphagia. Unknown history of endoscopic or colonoscopy at this time. Home Meds Active Scripts Dicyclomine Hcl* (DICYCLOMINE HCL*) 10 Mg Capsule, 10 MG PO QID, #20 CAP Prov:Randall Aguirre MD 08/27/17 Famotidine (PEPCID) 20 Mg Tablet, 20 MG ORAL BEDTIME, #7 TAB 0 Refills Prov:Randall Aguirre MD 08/27/17 Hydrocodone Bit/Acetaminophen 5-325* (NORCO 5-325*) 1 Each Tablet, 1 TAB ORAL Q6H PRN for For Pain, #20 TAB Prov:MARGARET ZEPEDA 08/10/13 Reported Medications Zinc Sulfate (ZINC SULFATE*) 220 Mg Capsule, 220 MG ORAL DAILY, CAP 0 Refills 05/12/18 Vancomycin HCl (Vancocin HCl) 250 Mg Capsule, 1000 MG IV DAILY, CAP 05/12/18 Mirtazapine* (MIRTAZAPINE*) 15 Mg Tablet, 15 MG ORAL BEDTIME, TAB 05/12/18 Metformin Hcl* (METFORMIN HCL*) 500 Mg Tablet, 500 MG ORAL TWICE A DAY, TAB 05/12/18 Lorazepam* (LORAZEPAM*) 2 Mg Tablet, 2 MG ORAL THREE TIMES A DAY PRN for For Anxiety, TAB 05/12/18 Cholecalciferol (Vitamin D3)* (VITAMIN D*) 1,000 Unit Tablet, 2000 UNITS ORAL DAILY, #30 TAB 0 Refills 05/12/18 Atorvastatin Calcium* (ATORVASTATIN CALCIUM*) 20 Mg Tablet, 20 MG ORAL BEDTIME, TAB 05/12/18 Ascorbic Acid* (ASCORBIC ACID*) 500 Mg Tablet, 500 MG ORAL DAILY, TAB 05/12/18 Apixaban (ELIQUIS) 5 Mg Tablet, 5 MG PO, TAB 05/12/18 Haloperidol* (HALDOL*) 0.5 Mg Tablet, 5 MG IM EVERY 6 HOURS PRN for Agitation, # 20 TAB 0 Refills 05/12/18 Atenolol* (TENORMIN*) 50 Mg Tablet, 50 MG ORAL BID, TAB 02/28/18 Clonazepam* (KLONOPIN*) 0.5 Mg Tablet, 0.5 MG ORAL Q6H, #15 TAB 0 Refills 02/16/18 Rosuvastatin Calcium* (CRESTOR*) 10 Mg Tablet, 10 MG ORAL DAILY, TAB 02/16/18 Furosemide* (LASIX*) 40 Mg Tablet, 40 MG ORAL DAILY, TAB 02/16/18 Trazodone* (TRAZODONE*) 150 Mg Tablet, 50 MG ORAL BEDTIME, TAB 02/16/18 Vitamin D (Vitamin D3) 400 Unit Tablet, 5000 UNITS ORAL DAILY, TAB 02/16/18 Losartan Potassium* (LOSARTAN POTASSIUM*) 25 Mg Tablet, 25 MG ORAL DAILY, TAB 02/16/18 Clopidogrel* (CLOPIDOGREL*) 75 Mg Tablet, 75 MG ORAL DAILY, TAB 02/16/18 Potassium Chloride (POTASSIUM CHLORIDE) 10 Meq Tablet.er, 10 MEQ ORAL DAILY, # 30 TAB 0 Refills 02/16/18 Sitagliptin Phos/Metformin Hcl (JANUMET XR 50-1,000 MG TABLET) 1 Each Tbmp.24hr , 1 TAB ORAL DAILY, TAB 02/16/18 Clonidine Hcl* (CATAPRES*) 0.1 Mg Tablet, 0.1 MG ORAL EVERY 8 HOURS, TAB 02/16/18 Aspirin (Aspirin EC) 81 Mg Tablet.dr, 81 MG ORAL DAILY, TAB 01/31/18 Med list reviewed/reconciled: Yes Allergies: Coded Allergies: No Known Allergies (Unverified , 08/10/13) Patient History PMH Narrative Limited by: medical condition Past Medical History: see triage record Pertinent Family History: unable to obtain Now: No Reviewed Nursing Documentation: PMH: Agreed; PSxH: Agreed Nursing Documentation-PMH Past Medical History: No History, Except For Hx Cardiac Problems: Yes - HTN, PACEMAKER L SIDE, 3 BYPASS SURGERIES Hx Hypertension: Yes Hx Pacemaker: Yes Hx Asthma: Yes Hx Diabetes: Yes - TYPE 2 Hx Cancer: No - UNKNOWN Hx Gastrointestinal Problems: No - UNKNOWN, PT IS CONFUSED Hx Neurological Problems: Yes - DEMENTIA, ALZHEIMER, SCHIZOPHRENIA Hx Dementia: Yes Hx Memory Loss: Yes Review of Systems All Other Systems: limited Physical Exam Vital Signs Date Time Temp Pulse Resp B/P (MAP) Pulse Ox O2 Delivery O2 Flow Rate FiO2 06/26/18 08:00 97.4 73 18 126/66 (86) 98 06/26/18 09:00 Room Air 06/26/18 20:00 21 06/27/18 20:08 8.0 Sp02 EP Interpretation: reviewed, normal Labs Laboratory Tests Test 06/30/18 03:10 White Blood Count 8.1 K/UL (4.8-10.8) Red Blood Count 2.98 M/UL (4.20-5.40) L Hemoglobin 8.7 G/DL (12.0-16.0) L Hematocrit 27.3 % (37.0-47.0) L Mean Corpuscular Volume 92 FL (80-99) Mean Corpuscular Hemoglobin 29.3 PG (27.0-31.0) Mean Corpuscular Hemoglobin Concent 31.9 G/DL (32.0-36.0) L Red Cell Distribution Width 15.0 % (11.6-14.8) H Platelet Count 36 K/UL (150-450) L Mean Platelet Volume 12.6 FL (6.5-10.1) H Neutrophils (%) (Auto) % (45.0-75.0) Lymphocytes (%) (Auto) % (20.0-45.0) Monocytes (%) (Auto) % (1.0-10.0) Eosinophils (%) (Auto) % (0.0-3.0) Basophils (%) (Auto) % (0.0-2.0) Differential Total Cells Counted 100 Neutrophils % (Manual) 86 % (45-75) H Lymphocytes % (Manual) 2 % (20-45) L Monocytes % (Manual) 3 % (1-10) Eosinophils % (Manual) 0 % (0-3) Basophils % (Manual) 0 % (0-2) Band Neutrophils 9 % (0-8) H Platelet Estimate Decreased L Platelet Morphology Giant Platelets Occasional Hypochromasia 1+ Anisocytosis 1+ Prothrombin Time 13.9 SEC (9.30-11.50) H Prothromb Time International Ratio 1.3 (0.9-1.1) H Activated Partial Thromboplast Time 36 SEC (23-33) H Sodium Level 143 MMOL/L (136-145) Potassium Level 3.5 MMOL/L (3.5-5.1) Chloride Level 113 MMOL/L (98-107) H Carbon Dioxide Level 19 MMOL/L (21-32) L Anion Gap 11 mmol/L (5-15) Blood Urea Nitrogen 31 mg/dL (7-18) H Creatinine 0.9 MG/DL (0.55-1.30) Estimat Glomerular Filtration Rate mL/min (>60) Glucose Level 98 MG/DL (74-106) Calcium Level 7.8 MG/DL (8.5-10.1) L Phosphorus Level 2.4 MG/DL (2.5-4.9) L Magnesium Level 1.3 MG/DL (1.8-2.4) L Total Bilirubin 2.6 MG/DL (0.2-1.0) H Direct Bilirubin 1.8 MG/DL (0.0-0.3) H Aspartate Amino Transf (AST/SGOT) 163 U/L (15-37) H Alanine Aminotransferase (ALT/SGPT) 78 U/L (12-78) Alkaline Phosphatase 132 U/L (46-116) H Total Protein 4.7 G/DL (6.4-8.2) L Albumin 1.2 G/DL (3.4-5.0) L Globulin 3.5 g/dL Albumin/Globulin Ratio 0.3 (1.0-2.7) L General Appearance: no apparent distress Head: normocephalic EENT: PERRL/EOMI, normal ENT inspection Neck: supple Respiratory: normal breath sounds, no respiratory distress, other - On Venturi mask Cardiovascular: normal rate Gastrointestinal: normal inspection, non tender, soft, normal bowel sounds, non -distended, ngt Rectal: deferred Genitourinary: no CVA tenderness Skin: normal inspection, normal color, no rash, warm/dry, palpation normal, well hydrated Lymphatic: normal inspection, no adenopathy Current Medications Current Medications Medications (Trade) Dose Ordered Sig/Yi Route PRN Reason Start Time Stop Time Status Last Admin Dose Admin Acetaminophen (Tylenol) 650 mg Q4H PRN NG Mild Pain/Temp > 100.5 06/29/18 18:15 07/29/18 18:14 Chlorhexidine Gluconate (Mirtha-Hex 2%) 1 applic DAILY@2000 TOPIC 06/29/18 20:00 07/29/18 19:59 06/29/18 20:23 Clonidine HCl (Catapres Tab) 0.1 mg Q8H PRN ORAL SBP>160mmHg 06/28/18 06:30 07/25/18 06:29 Dextrose (Dextrose 50%) 25 ml Q30M PRN IV Hypoglycemia 06/28/18 06:15 07/24/18 13:30 Dextrose (Dextrose 50%) 50 ml Q30M PRN IV hypoglycemia 06/28/18 06:15 07/24/18 13:44 Dextrose/Sodium Chloride 1,000 ml @ 50 mls/hr Q20H IV 06/29/18 11:30 07/29/18 11:29 06/30/18 07:31 Insulin Aspart (NovoLOG) EVERY 6 HOURS SUBQ 06/28/18 12:00 07/24/18 16:29 06/29/18 12:22 Lorazepam (Ativan) 1 mg Q6H PRN ORAL For Anxiety 06/28/18 07:00 07/02/18 12:52 Magnesium Sulfate 100 ml @ 100 mls/hr Q1H IVPB 06/30/18 13:00 06/30/18 14:59 Morphine Sulfate (Morphine Sulfate) 2 mg Q4H PRN IVP Moderate Pain (Pain Scale 4-6) 06/28/18 09:00 07/02/18 12:52 06/29/18 22:01 Olanzapine (ZyPREXA) 2.5 mg BID ORAL 06/28/18 09:00 07/25/18 10:59 06/30/18 08:14 Ondansetron HCl (Zofran) 4 mg Q6H PRN IVP Nausea & Vomiting 06/28/18 07:00 07/25/18 12:52 Pantoprazole (Protonix) 40 mg EVERY 12 HOURS IVP 06/30/18 21:00 07/30/18 20:59 Potassium Phosphate 30 mm/ Sodium Chloride 285 ml @ 47.5 mls/hr ONCE IV 06/30/18 14:00 06/30/18 15:00 Temazepam (Restoril) 15 mg HSPRN PRN ORAL Insomnia 06/28/18 21:00 07/01/18 20:59 06/30/18 01:10 Vancomycin HCl (Vanco rx to dose) 1 ea DAILY PRN MISC . 06/28/18 09:00 07/24/18 14:44 Vancomycin HCl 750 mg/Sodium Chloride 275 ml @ 183.333 mls/hr Q24H IVPB 06/28/18 17:00 07/01/18 16:59 06/29/18 17:14 GI: Plan Problems: (1) LFT elevation (2) Upper GI bleed (3) Dysphasia (4) Severe malnutrition (5) Severe anemia (6) Alzheimer's dementia (7) Protein-calorie malnutrition, severe (8) Dehydration (9) Weakness Plan Possible EGD tomorrow to evaluate upper GI bleed, will tentatively schedule. Patient may need PEG in the future, follow-up ST evaluations NGT to low intermittent suction Start Protonix drip 1 dose of vitamin K Obtain abdominal ultrasound anemia work up OB stool r/o GI bleed monitor H&H, prn transfusions bowel regime fu labs, hepatitis panel Discussed with Dr. Wallace. Thank you for this patient referral, we will follow. The patient was seen and examined at bedside and all new and available data was reviewed in the patients chart. I agree with the above findings, impression and plan. (Patient seen earlier today. Signature stamp does not reflect patient encounter time.). - MD Tanika Vivas,[facility] CenterPhil TIE MAN Jun 30, 2018 13:29
--- NOTE | 2018-06-30 13:32 | NUR ---
PROCESS IMPROVEMENT ENGINEERMANAGER ACTIVITIES SI: RESP FAILURE,WEAKNESS T. 97.0 HR 83 RR 22 B/P 136/78 MG 1.3 AST 163 ALK PHOS 132 IS; K-PHOS IV PROTONIX IV MAGNESIUM IV IVF D5NS @ 50ML/HR VANCO IV STEP DOWN UNIT
[2018-06-30] MEDS ORDERED: Potassium Phosphate 30 MM in NS 275ml IV SCH (14:00)
--- NOTE | 2018-06-30 14:21 | NUR ---
NURSE NOTES: KINSEY Villarreal at nurse station, informed WIRELESS DEVELOPMENT MANAGER that patient had abdominal ultra sound already done on Thursday. KINSEY Villarreal acknowledged and ordered to continue abdominal ultra sound. Order discontinued. Will continue to monitor patient.
--- NOTE | 2018-06-30 14:32 | NUR ---
NURSE NOTES: Called patient's daughter, Celine Bernal, and gave consent for EGD, esophagogastroduodenoscopy and transesophageal echocardiogram procedures. Consent verified with second nurse, SOILA Jenkins. Consent's placed in chart. Will continue to monitor patient.
--- NOTE | 2018-06-30 14:37 | Diagnostic Imaging Report ---
Indications: Needs long-term IV access Technique: Procedure performed at bedside. Procedural timeout performed. Ultrasound confirms patent compressible right brachial vein. Total sterile technique, including sterile probe cover and sterile gel, sterile gloves, hand hygiene, hat, mask,, sterile gown, large sterile drape, and preparation with 2% chlorhexidine utilized. Local anesthesia with 1% lidocaine. Under real-time ultrasound guidance, puncture vein using 21-gauge needle, passage 0.018 guidewire, exchange for 5 Iraqi peel-away sheath. 5 Iraqi dual-lumen power PICC cut to cm. It was inserted through the peel-away sheath. However, the guidewire catheter combination would not advance centrally, despite multiple manipulations. The catheter was removed and cut short, 15 cm Peel-away sheath and guidewire removed. Catheter fixed to the skin. Both catheter ports aspirated and flushed. Patient tolerated procedure well, without immediate complication. Followup chest x-ray obtained, documents catheter tip position at the level of the right axillary vein Impression: Bedside placement of PICC under sonographic guidance, as described above. Note that the catheter was cut short, suitable only for use as a midline. 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
[2018-06-30] MEDS ORDERED: Phytonadione 1 MG in D5W 55 ML IVPB SCH (15:00)
[2018-06-30] MEDS ORDERED: Sodium Phosphate 30 MM in NS 275 ML IV SCH (15:00)
[2018-06-30] MEDS: Pantoprazole 80 MG in NS 250 ML IV SCH (15:44)
--- NOTE | 2018-06-30 15:58 | Consultation ---
History of Present Illness General Chief Complaint: General Complaint Referring physician: LAUREN BERKOWITZ Reason for Consultation: GI BLEED / DYSPHAGIA Present Illness Allergies: Coded Allergies: No Known Allergies (Unverified , 08/10/13) Medication History Scheduled Ascorbic Acid* (Ascorbic Acid*), 500 MG ORAL DAILY, (Reported) Aspirin (Aspirin EC), 81 MG ORAL DAILY, (Reported) Atenolol* (Tenormin*), 50 MG ORAL BID, (Reported) Atorvastatin Calcium* (Atorvastatin Calcium*), 20 MG ORAL BEDTIME, (Reported) Cholecalciferol (Vitamin D3)* (Vitamin D*), 2,000 UNITS ORAL DAILY, (Reported) Clonazepam* (Klonopin*), 0.5 MG ORAL Q6H, (Reported) Clonidine Hcl* (Catapres*), 0.1 MG ORAL EVERY 8 HOURS, (Reported) Clopidogrel* (Clopidogrel*), 75 MG ORAL DAILY, (Reported) Dicyclomine Hcl* (Dicyclomine Hcl*), 10 MG PO QID Famotidine (Pepcid), 20 MG ORAL BEDTIME Furosemide* (Lasix*), 40 MG ORAL DAILY, (Reported) Losartan Potassium* (Losartan Potassium*), 25 MG ORAL DAILY, (Reported) Metformin Hcl* (Metformin Hcl*), 500 MG ORAL TWICE A DAY, (Reported) Mirtazapine* (Mirtazapine*), 15 MG ORAL BEDTIME, (Reported) Potassium Chloride (Potassium Chloride), 10 MEQ ORAL DAILY, (Reported) Rosuvastatin Calcium* (Crestor*), 10 MG ORAL DAILY, (Reported) Sitagliptin Phos/Metformin Hcl (Janumet Xr 50-1,000 Mg Tablet), 1 TAB ORAL DAILY , (Reported) Trazodone* (Trazodone*), 50 MG ORAL BEDTIME, (Reported) Vancomycin HCl (Vancocin HCl), 1,000 MG IV DAILY, (Reported) Vitamin D (Vitamin D3), 5,000 UNITS ORAL DAILY, (Reported) Zinc Sulfate (Zinc Sulfate*), 220 MG ORAL DAILY, (Reported) Scheduled PRN Haloperidol* (Haldol*), 5 MG IM EVERY 6 HOURS PRN for Agitation, (Reported) Hydrocodone Bit/Acetaminophen 5-325* ([place] 5-325*), 1 TAB ORAL Q6H PRN for For Pain Lorazepam* (Lorazepam*), 2 MG ORAL THREE TIMES A DAY PRN for For Anxiety, ( Reported) Miscellaneous Medications Apixaban (Eliquis), 5 MG PO, (Reported) Patient History Healthcare decision maker Resuscitation status Full Code Advanced Directive on File Physical Exam Last 24 Hour Vital Signs Date Time Temp Pulse Resp B/P (MAP) Pulse Ox O2 Delivery O2 Flow Rate FiO2 06/30/18 12:00 71 06/30/18 12:00 97.0 83 22 136/78 (97) 100 06/30/18 11:51 Venturi Mask 12.0 06/30/18 08:00 63 06/30/18 08:00 97.7 75 24 120/62 (81) 100 06/30/18 08:00 Venturi Mask 15.0 06/30/18 07:08 82 20 Venturi Mask 12.0 50 06/30/18 07:08 100 Venturi Mask 12.0 50 06/30/18 07:08 Venturi Mask 12.0 50 06/30/18 04:00 97.9 91 28 118/54 (75) 100 06/30/18 04:00 Non-Rebreather 15.0 06/30/18 03:56 78 06/30/18 00:00 98.2 89 28 122/60 (80) 100 06/30/18 00:00 Non-Rebreather 15.0 06/29/18 23:26 96 06/29/18 20:00 98.8 93 20 118/67 (84) 100 06/29/18 20:00 Non-Rebreather 15.0 06/29/18 20:00 92 06/29/18 19:48 Venturi Mask 12.0 50 06/29/18 19:48 98 Venturi Mask 12.0 50 06/29/18 19:47 85 20 Venturi Mask 12.0 50 06/29/18 16:00 Non-Rebreather 15.0 06/29/18 16:00 85 06/29/18 16:00 100.2 105 26 131/75 (93) 93 Intake and Output 06/29/18 06/30/18 18:59 06:59 Intake Total 1300.555 ml 958.195 ml Output Total 400 ml 350 ml Balance 900.555 ml 608.195 ml Intake Free Water 60 ml IV Total 1240.555 ml 858.195 ml Other 100 ml Output Urine Total 400 ml 350 ml Laboratory Tests Test 06/30/18 03:10 White Blood Count 8.1 K/UL (4.8-10.8) Red Blood Count 2.98 M/UL (4.20-5.40) L Hemoglobin 8.7 G/DL (12.0-16.0) L Hematocrit 27.3 % (37.0-47.0) L Mean Corpuscular Volume 92 FL (80-99) Mean Corpuscular Hemoglobin 29.3 PG (27.0-31.0) Mean Corpuscular Hemoglobin Concent 31.9 G/DL (32.0-36.0) L Red Cell Distribution Width 15.0 % (11.6-14.8) H Platelet Count 36 K/UL (150-450) L Mean Platelet Volume 12.6 FL (6.5-10.1) H Neutrophils (%) (Auto) % (45.0-75.0) Lymphocytes (%) (Auto) % (20.0-45.0) Monocytes (%) (Auto) % (1.0-10.0) Eosinophils (%) (Auto) % (0.0-3.0) Basophils (%) (Auto) % (0.0-2.0) Differential Total Cells Counted 100 Neutrophils % (Manual) 86 % (45-75) H Lymphocytes % (Manual) 2 % (20-45) L Monocytes % (Manual) 3 % (1-10) Eosinophils % (Manual) 0 % (0-3) Basophils % (Manual) 0 % (0-2) Band Neutrophils 9 % (0-8) H Platelet Estimate Decreased L Platelet Morphology Giant Platelets Occasional Hypochromasia 1+ Anisocytosis 1+ Prothrombin Time 13.9 SEC (9.30-11.50) H Prothromb Time International Ratio 1.3 (0.9-1.1) H Activated Partial Thromboplast Time 36 SEC (23-33) H Sodium Level 143 MMOL/L (136-145) Potassium Level 3.5 MMOL/L (3.5-5.1) Chloride Level 113 MMOL/L (98-107) H Carbon Dioxide Level 19 MMOL/L (21-32) L Anion Gap 11 mmol/L (5-15) Blood Urea Nitrogen 31 mg/dL (7-18) H Creatinine 0.9 MG/DL (0.55-1.30) Estimat Glomerular Filtration Rate mL/min (>60) Glucose Level 98 MG/DL (74-106) Calcium Level 7.8 MG/DL (8.5-10.1) L Phosphorus Level 2.4 MG/DL (2.5-4.9) L Magnesium Level 1.3 MG/DL (1.8-2.4) L Total Bilirubin 2.6 MG/DL (0.2-1.0) H Direct Bilirubin 1.8 MG/DL (0.0-0.3) H Aspartate Amino Transf (AST/SGOT) 163 U/L (15-37) H Alanine Aminotransferase (ALT/SGPT) 78 U/L (12-78) Alkaline Phosphatase 132 U/L (46-116) H Total Protein 4.7 G/DL (6.4-8.2) L Albumin 1.2 G/DL (3.4-5.0) L Globulin 3.5 g/dL Albumin/Globulin Ratio 0.3 (1.0-2.7) L Microbiology Date/Time Source Procedure Growth Status 06/29/18 18:15 Blood Blood Culture - Preliminary Resulted 06/29/18 18:00 Blood Blood Culture - Preliminary Resulted Height (Feet): 5 Height (Inches): 6.00 Weight (Pounds): 145 Medications Current Medications Medications (Trade) Dose Ordered Sig/Yi Route PRN Reason Start Time Stop Time Status Last Admin Dose Admin Acetaminophen (Tylenol) 650 mg Q4H PRN NG Mild Pain/Temp > 100.5 06/29/18 18:15 07/29/18 18:14 Chlorhexidine Gluconate (Mirtha-Hex 2%) 1 applic DAILY@2000 TOPIC 06/29/18 20:00 07/29/18 19:59 06/29/18 20:23 Clonidine HCl (Catapres Tab) 0.1 mg Q8H PRN ORAL SBP>160mmHg 06/28/18 06:30 07/25/18 06:29 Dextrose (Dextrose 50%) 25 ml Q30M PRN IV Hypoglycemia 06/28/18 06:15 07/24/18 13:30 Dextrose (Dextrose 50%) 50 ml Q30M PRN IV hypoglycemia 06/28/18 06:15 07/24/18 13:44 Dextrose/Sodium Chloride 1,000 ml @ 50 mls/hr Q20H IV 06/29/18 11:30 07/29/18 11:29 06/30/18 07:31 Insulin Aspart (NovoLOG) EVERY 6 HOURS SUBQ 06/28/18 12:00 07/24/18 16:29 06/29/18 12:22 Lorazepam (Ativan) 1 mg Q6H PRN ORAL For Anxiety 06/28/18 07:00 07/02/18 12:52 Morphine Sulfate (Morphine Sulfate) 2 mg Q4H PRN IVP Moderate Pain (Pain Scale 4-6) 06/28/18 09:00 07/02/18 12:52 06/29/18 22:01 Olanzapine (ZyPREXA) 2.5 mg BID ORAL 06/28/18 09:00 07/25/18 10:59 06/30/18 08:14 Ondansetron HCl (Zofran) 4 mg Q6H PRN IVP Nausea & Vomiting 06/28/18 07:00 07/25/18 12:52 Pantoprazole 80 mg/Sodium Chloride 250 ml @ 25 mls/hr Q10H IV 06/30/18 15:00 07/30/18 14:59 06/30/18 15:44 Phytonadione 1 mg/ Dextrose 55.5 ml @ 222 mls/hr ONCE IVPB 06/30/18 15:00 06/30/18 17:00 06/30/18 15:02 Temazepam (Restoril) 15 mg HSPRN PRN ORAL Insomnia 06/28/18 21:00 07/01/18 20:59 06/30/18 01:10 Vancomycin HCl (Vanco rx to dose) 1 ea DAILY PRN MISC . 06/28/18 09:00 07/24/18 14:44 Vancomycin HCl 750 mg/Sodium Chloride 275 ml @ 183.333 mls/hr Q24H IVPB 06/28/18 17:00 07/01/18 16:59 06/29/18 17:14 Assessment/Plan Assessment/Plan Hematology Consultation REQ MD: Cassie Berkowitz Date of Service: 06/30/18 CHIEF COMPLAINT: The patient is an 82-year-old Citizen Of [place]-speaking female who presents with chief complaint of generalized weakness and decreased oral intake. RFC: Thrombocytopenia HISTORY OF PRESENT ILLNESS: The patient was admitted to [facility] from 02/28/2018 to 2017. The patient is status post open reduction and internal fixation and right hip hemiarthroplasty on 03/01/2018. The patient is status post open reduction and internal fixation of the right hip on 02/18/2018. The patient had dislocation on 02/28/2018. The patient underwent open reduction of right hip hemiarthroplasty dislocation on 03/01/2018.She presented to the hospital from country we last saw nursing facility due to the severe dehydration, decreased oral intake, and weakness. she has not been able to ambulate. The patient presented to [facility] emergency department as per request by Dr. Aquilino Matthews for further evaluation and aggressive therapy. Shortly after initial evaluation emergency patient was noted to have elevated lactic acid and severe dehydration and subsequently patient was admitted to hospital for possible sepsis and acute kidney injury with dehydration. REVIEW OF SYSTEMS: Unable to assess secondary to the patient's mental status. PAST MEDICAL HISTORY: Significant for: 1. Right hip fracture on 02/16/2018 as above, status post right hip hemiarthroplasty on 02/18/2018. 2. Dislocation of right hip arthroplasty and subsequent reduction of dislocation on 03/01/2018 as above. 3. Diabetes type 2. 4. Hypertension. 5. Sick sinus syndrome. 6. Hypercholesterolemia. 7. Coronary artery disease, status post non-ST elevated myocardial infarction. 8. Hypertension. 9. Aortic stenosis. 10. Pulmonary hypertension. 11. Alzheimer dementia. PAST SURGICAL HISTORY: Significant for: 1. Reduction of right hip hemiarthroplasty dislocation on 03/01/2018. 2. Right hip hemiarthroplasty on 02/18/2018. 3. Coronary artery bypass graft in 2016. 4. Pacemaker generator change in 2016. 5. Elbow debridement. 6. Pacemaker implantation in 2013. CURRENT MEDICATIONS: 1. Aspirin 81 mg p.o. daily. 2. Atenolol 50 mg p.o. twice daily. 3. Klonopin 0.5 mg p.o. q.6 h. p.r.n. 4. Clonidine 0.1 mg p.o. q.8 h. 5. Clopidogrel 75 mg p.o. daily. 6. Bentyl 10 mg p.o. four times daily. 7. Pepcid 20 mg p.o. at bedtime. 8. Lasix 40 mg p.o. daily. 9. [place] 5/325 one tablet p.o. q.6 h. p.r.n. 10. Losartan 25 mg p.o. daily. 11. Potassium chloride 10 mEq p.o. daily. 12. Crestor 10 mg p.o. daily. 13. Sitagliptin/metformin one tablet p.o. daily. 14. Trazodone 50 mg p.o. at bedtime. 15. Vitamin D 5000 units p.o. daily. ALLERGIES: No known drug allergies. SOCIAL HISTORY: The patient is and lives with her . The patient denies tobacco or alcohol use. Last 24 Hour Vital Signs Date Time Temp Pulse Resp B/P (MAP) Pulse Ox O2 Delivery O2 Flow Rate FiO2 06/30/18 12:00 71 06/30/18 12:00 97.0 83 22 136/78 (97) 100 06/30/18 11:51 Venturi Mask 12.0 06/30/18 08:00 63 06/30/18 08:00 97.7 75 24 120/62 (81) 100 06/30/18 08:00 Venturi Mask 15.0 06/30/18 07:08 82 20 Venturi Mask 12.0 50 06/30/18 07:08 100 Venturi Mask 12.0 50 06/30/18 07:08 Venturi Mask 12.0 50 06/30/18 04:00 97.9 91 28 118/54 (75) 100 06/30/18 04:00 Non-Rebreather 15.0 06/30/18 03:56 78 06/30/18 00:00 98.2 89 28 122/60 (80) 100 06/30/18 00:00 Non-Rebreather 15.0 06/29/18 23:26 96 06/29/18 20:00 98.8 93 20 118/67 (84) 100 06/29/18 20:00 Non-Rebreather 15.0 06/29/18 20:00 92 06/29/18 19:48 Venturi Mask 12.0 50 06/29/18 19:48 98 Venturi Mask 12.0 50 06/29/18 19:47 85 20 Venturi Mask 12.0 50 06/29/18 16:00 Non-Rebreather 15.0 06/29/18 16:00 85 06/29/18 16:00 100.2 105 26 131/75 (93) 93 GENERAL: Awake responsive to deep stimuli with opening of her eyes, in no apparent distress. HEENT: Eyes, pupils equal responsive to light and accommodation. Extraocular movements are intact. NECK: Supple. No lymphadenopathy. CHEST: Poor inspiratory effort, decreased air in the bases no wheezes or rhonchi was appreciated CARDIOVASCULAR: Regular rhythm and rate. S1 and S2 are normal without murmurs or gallops. ABDOMEN: Soft, nontender, and nondistended. Positive bowel sounds. No rebounding or guarding noted. EXTREMITIES: Negative for clubbing, cyanosis, or edema, muscle atrophy in bilateral lower extremity RECTAL/GENITAL: Not performed. NEUROLOGIC: Less responsive, unable to follow commands, however open her eyes with a deep stimulation, unable to evaluate for gait due to the patient's status. Laboratory Tests Test 06/30/18 03:10 White Blood Count 8.1 K/UL (4.8-10.8) Red Blood Count 2.98 M/UL (4.20-5.40) L Hemoglobin 8.7 G/DL (12.0-16.0) L Hematocrit 27.3 % (37.0-47.0) L Mean Corpuscular Volume 92 FL (80-99) Mean Corpuscular Hemoglobin 29.3 PG (27.0-31.0) Mean Corpuscular Hemoglobin Concent 31.9 G/DL (32.0-36.0) L Red Cell Distribution Width 15.0 % (11.6-14.8) H Platelet Count 36 K/UL (150-450) L Mean Platelet Volume 12.6 FL (6.5-10.1) H Neutrophils (%) (Auto) % (45.0-75.0) Lymphocytes (%) (Auto) % (20.0-45.0) Monocytes (%) (Auto) % (1.0-10.0) Eosinophils (%) (Auto) % (0.0-3.0) Basophils (%) (Auto) % (0.0-2.0) Differential Total Cells Counted 100 Neutrophils % (Manual) 86 % (45-75) H Lymphocytes % (Manual) 2 % (20-45) L Monocytes % (Manual) 3 % (1-10) Eosinophils % (Manual) 0 % (0-3) Basophils % (Manual) 0 % (0-2) Band Neutrophils 9 % (0-8) H Platelet Estimate Decreased L Platelet Morphology Giant Platelets Occasional Hypochromasia 1+ Anisocytosis 1+ Prothrombin Time 13.9 SEC (9.30-11.50) H Prothromb Time International Ratio 1.3 (0.9-1.1) H Activated Partial Thromboplast Time 36 SEC (23-33) H Sodium Level 143 MMOL/L (136-145) Potassium Level 3.5 MMOL/L (3.5-5.1) Chloride Level 113 MMOL/L (98-107) H Carbon Dioxide Level 19 MMOL/L (21-32) L Anion Gap 11 mmol/L (5-15) Blood Urea Nitrogen 31 mg/dL (7-18) H Creatinine 0.9 MG/DL (0.55-1.30) Estimat Glomerular Filtration Rate mL/min (>60) Glucose Level 98 MG/DL (74-106) Calcium Level 7.8 MG/DL (8.5-10.1) L Phosphorus Level 2.4 MG/DL (2.5-4.9) L Magnesium Level 1.3 MG/DL (1.8-2.4) L Total Bilirubin 2.6 MG/DL (0.2-1.0) H Direct Bilirubin 1.8 MG/DL (0.0-0.3) H Aspartate Amino Transf (AST/SGOT) 163 U/L (15-37) H Alanine Aminotransferase (ALT/SGPT) 78 U/L (12-78) Alkaline Phosphatase 132 U/L (46-116) H Total Protein 4.7 G/DL (6.4-8.2) L Albumin 1.2 G/DL (3.4-5.0) L Globulin 3.5 g/dL Albumin/Globulin Ratio 0.3 (1.0-2.7) L ASSESSMENT/RECS: This is an 82-year-old white female. 1. Pancytopenia with thrombocytopenia that is severe is most likely related to Sepsis, lactic acidosis. In addition has received heparin. US abdomen ordered and shows no spleen and no cirrhosis --> heparin discontinued --> HIT ab test ordered with venous duplex --> smear peripheral has been ordered --> tumor markers as needed/prn --> hold off on transfusion unless plt <20k --> hold off on steriods 2. Failure to thrive with severe protein calorie malnutrition. ->> calorie counts daily --> consider mirtazapine as needed per pcp 3. Anemia of chronic disease --> panel has been ordered --> transfuse if hgb <7 4. Leukocytosis --> on abx as per id for infection 5. Hypertension. 6. Sick sinus syndrome. 7. Hypercholesterolemia. 8. Aortic stenosis. 9. Pulmonary hypertension. 10. Alzheimer dementia. 11. Acute tubular necrosis/acute kidney injury most likely secondary to dehydration and sepsis. Greatly appreciate consultation! Kadeem Bennett MD Jun 30, 2018 15:58
[2018-06-30 16:00] VITALS: BP 141/93
[2018-06-30] MEDS ORDERED: Isovue-300 100ml vial INJ PRN (16:00)
--- NOTE | 2018-06-30 16:06 | Infectious Diseases Prog Note ---
Assessment/Plan Assessment/Plan 82 yo female with PMHx DM, CAD, Alzheimer dementia and Hip fracture who presents with dehydration and weakness. High grade persistent bacteremia- suspect endovascular source (ie endocarditis, PPM infection) -2d Echo (limited study due to contractures): no vegetations seen -06/27 Bcx /4MRSA; 06/28 Bcx / MRSA; 06/29 08/19 GPC clustesr 06/25/18 Blood Cx 08/19 MRSA 06/24/18 Wound Cx MRSA, ESBL E.coli (S ZOsyn), K. pna (S Zosyn) Mild leukocytosis - resolved Low grade fever; improving Positive UA CXR neg Thrombocytopenia- HIT vs medication related Pressure ulcers Not infected Right hip fracture with hemiarthroplasty Feb 2018 DM HTN Sick sinus syndrome sp Pacemaker HLD CAD - SP [place] and CABG Aortic stenosis. Pulmonary hypertension. Alzheimer dementia. PLAN - Switch Vancomycin #6 to Daptomycin given persistent MRSA Bacteremia -06/30 SP Zosyn #4 -06/27 SP Cefepime #3 -Will need NELDA to look for endocarditis and/or PPM infection if consistent with goals of care -REpeat 2 sets of Bcx -CT chest/abd/p w/ to eval for occult abscess - f/u repeat cultures - Monitor CBC and temps - wound care - Nutritional support -CBC, CMP, CPK am Thank you for this consult. We will continue to follow the patient during this hospitalization. Discussed with Dr Matthews and Dr Mancera Subjective Allergies: Coded Allergies: No Known Allergies (Unverified , 08/10/13) Subjective Tm 100.6; afebrline 24hrs no leukoycotis remains bacteremic Objective Vital Signs Last 24 Hour Vital Signs Date Time Temp Pulse Resp B/P (MAP) Pulse Ox O2 Delivery O2 Flow Rate FiO2 06/30/18 12:00 71 06/30/18 12:00 97.0 83 22 136/78 (97) 100 06/30/18 11:51 Venturi Mask 12.0 06/30/18 08:00 63 06/30/18 08:00 97.7 75 24 120/62 (81) 100 06/30/18 08:00 Venturi Mask 15.0 06/30/18 07:08 82 20 Venturi Mask 12.0 50 06/30/18 07:08 100 Venturi Mask 12.0 50 06/30/18 07:08 Venturi Mask 12.0 50 06/30/18 04:00 97.9 91 28 118/54 (75) 100 06/30/18 04:00 Non-Rebreather 15.0 06/30/18 03:56 78 06/30/18 00:00 98.2 89 28 122/60 (80) 100 06/30/18 00:00 Non-Rebreather 15.0 06/29/18 23:26 96 06/29/18 20:00 98.8 93 20 118/67 (84) 100 06/29/18 20:00 Non-Rebreather 15.0 06/29/18 20:00 92 06/29/18 19:48 Venturi Mask 12.0 50 06/29/18 19:48 98 Venturi Mask 12.0 50 06/29/18 19:47 85 20 Venturi Mask 12.0 50 06/29/18 16:00 Non-Rebreather 15.0 06/29/18 16:00 85 06/29/18 16:00 100.2 105 26 131/75 (93) 93 Height (Feet): 5 Height (Inches): 6.00 Weight (Pounds): 145 Objective Gen: Moaning, Awake but no following HEENT: NCAT, MMM, EOMI, PERRL LUNGS: CTAB, No W CARDS: RRR, S1, S2, No M/R/G, ABD: Soft, NT, ND, + BS Ext: Poor circulation to Ext (cool to touch) , Pulses 2+ B/L (DP, Rad): SKIN: Dry, No rashes, Large sacral ulcer. Mild odor no surrounding cellulitis, foot with eschar Microbiology Date/Time Source Procedure Growth Status 06/29/18 18:15 Blood Blood Culture - Preliminary Resulted 06/29/18 18:00 Blood Blood Culture - Preliminary Resulted 06/28/18 15:15 Blood Blood Culture - Preliminary Staphylococcus Aureus Resulted 06/28/18 15:15 Blood Blood Culture - Preliminary Staphylococcus Aureus Resulted Laboratory Tests Test 06/30/18 03:10 White Blood Count 8.1 K/UL (4.8-10.8) Red Blood Count 2.98 M/UL (4.20-5.40) L Hemoglobin 8.7 G/DL (12.0-16.0) L Hematocrit 27.3 % (37.0-47.0) L Mean Corpuscular Volume 92 FL (80-99) Mean Corpuscular Hemoglobin 29.3 PG (27.0-31.0) Mean Corpuscular Hemoglobin Concent 31.9 G/DL (32.0-36.0) L Red Cell Distribution Width 15.0 % (11.6-14.8) H Platelet Count 36 K/UL (150-450) L Mean Platelet Volume 12.6 FL (6.5-10.1) H Neutrophils (%) (Auto) % (45.0-75.0) Lymphocytes (%) (Auto) % (20.0-45.0) Monocytes (%) (Auto) % (1.0-10.0) Eosinophils (%) (Auto) % (0.0-3.0) Basophils (%) (Auto) % (0.0-2.0) Differential Total Cells Counted 100 Neutrophils % (Manual) 86 % (45-75) H Lymphocytes % (Manual) 2 % (20-45) L Monocytes % (Manual) 3 % (1-10) Eosinophils % (Manual) 0 % (0-3) Basophils % (Manual) 0 % (0-2) Band Neutrophils 9 % (0-8) H Platelet Estimate Decreased L Platelet Morphology Giant Platelets Occasional Hypochromasia 1+ Anisocytosis 1+ Prothrombin Time 13.9 SEC (9.30-11.50) H Prothromb Time International Ratio 1.3 (0.9-1.1) H Activated Partial Thromboplast Time 36 SEC (23-33) H Sodium Level 143 MMOL/L (136-145) Potassium Level 3.5 MMOL/L (3.5-5.1) Chloride Level 113 MMOL/L (98-107) H Carbon Dioxide Level 19 MMOL/L (21-32) L Anion Gap 11 mmol/L (5-15) Blood Urea Nitrogen 31 mg/dL (7-18) H Creatinine 0.9 MG/DL (0.55-1.30) Estimat Glomerular Filtration Rate mL/min (>60) Glucose Level 98 MG/DL (74-106) Calcium Level 7.8 MG/DL (8.5-10.1) L Phosphorus Level 2.4 MG/DL (2.5-4.9) L Magnesium Level 1.3 MG/DL (1.8-2.4) L Total Bilirubin 2.6 MG/DL (0.2-1.0) H Direct Bilirubin 1.8 MG/DL (0.0-0.3) H Aspartate Amino Transf (AST/SGOT) 163 U/L (15-37) H Alanine Aminotransferase (ALT/SGPT) 78 U/L (12-78) Alkaline Phosphatase 132 U/L (46-116) H Total Protein 4.7 G/DL (6.4-8.2) L Albumin 1.2 G/DL (3.4-5.0) L Globulin 3.5 g/dL Albumin/Globulin Ratio 0.3 (1.0-2.7) L Current Medications Medications (Trade) Dose Ordered Sig/Yi Route PRN Reason Start Time Stop Time Status Last Admin Dose Admin Acetaminophen (Tylenol) 650 mg Q4H PRN NG Mild Pain/Temp > 100.5 06/29/18 18:15 07/29/18 18:14 Chlorhexidine Gluconate (Mirtha-Hex 2%) 1 applic DAILY@2000 TOPIC 06/29/18 20:00 07/29/18 19:59 06/29/18 20:23 Clonidine HCl (Catapres Tab) 0.1 mg Q8H PRN ORAL SBP>160mmHg 06/28/18 06:30 07/25/18 06:29 Dextrose (Dextrose 50%) 25 ml Q30M PRN IV Hypoglycemia 06/28/18 06:15 07/24/18 13:30 Dextrose (Dextrose 50%) 50 ml Q30M PRN IV hypoglycemia 06/28/18 06:15 07/24/18 13:44 Dextrose/Sodium Chloride 1,000 ml @ 50 mls/hr Q20H IV 06/29/18 11:30 07/29/18 11:29 06/30/18 07:31 Insulin Aspart (NovoLOG) EVERY 6 HOURS SUBQ 06/28/18 12:00 07/24/18 16:29 06/29/18 12:22 Lorazepam (Ativan) 1 mg Q6H PRN ORAL For Anxiety 06/28/18 07:00 07/02/18 12:52 Morphine Sulfate (Morphine Sulfate) 2 mg Q4H PRN IVP Moderate Pain (Pain Scale 4-6) 06/28/18 09:00 07/02/18 12:52 06/29/18 22:01 Olanzapine (ZyPREXA) 2.5 mg BID ORAL 06/28/18 09:00 07/25/18 10:59 06/30/18 08:14 Ondansetron HCl (Zofran) 4 mg Q6H PRN IVP Nausea & Vomiting 06/28/18 07:00 07/25/18 12:52 Pantoprazole 80 mg/Sodium Chloride 250 ml @ 25 mls/hr Q10H IV 06/30/18 15:00 07/30/18 14:59 06/30/18 15:44 Phytonadione 1 mg/ Dextrose 55.5 ml @ 222 mls/hr ONCE IVPB 06/30/18 15:00 06/30/18 17:00 06/30/18 15:02 Temazepam (Restoril) 15 mg HSPRN PRN ORAL Insomnia 06/28/18 21:00 07/01/18 20:59 06/30/18 01:10 Vancomycin HCl (Vanco rx to dose) 1 ea DAILY PRN MISC . 06/28/18 09:00 07/24/18 14:44 Vancomycin HCl 750 mg/Sodium Chloride 275 ml @ 183.333 mls/hr Q24H IVPB 06/28/18 17:00 07/01/18 16:59 06/29/18 17:14 Roseann Bardales M.D. Jun 30, 2018 16:06
[2018-06-30] MEDS: DAPTOmycin 400 MG in NS 55 ML IV SCH (18:11)
--- NOTE | 2018-06-30 18:30 | NUR ---
NURSE NOTES: Patient vomited x 1 grayish emesis. Suctioned and placed on side, and raised head of bead 30 degrees for aspiration precaution. Contacted KINSEY Villarreal of situation. KINSEY Villarreal acknowledged and no new orders were given. Continue low intermittent suction via NGT. Noted. Will continue to monitor patient.
--- NOTE | 2018-06-30 19:10 | NUR ---
NURSE NOTES: Received report from Shaye Martinez RN. Patient is asleep in bed, A/O x1. No s/s of acute distress noted. Sinus rhythm on pit shoveler. Receiving 15L O2 via venturi mask at 50%. Left nare NGT in place and set to low-intermittent suction. Purewick catheter in place and suctioning well. Right upper midline double lumen catheter, intact and patent; right hand 22g IV, intact and patent; left thumb 24g IV, intact and patent. Bed locked in lowest position with side rails up x3. Call light left within reach. Will continue to monitor.
--- NOTE | 2018-06-30 19:20 | NUR ---
NURSE NOTES: Obtained telephone consent from patient's daughter, Celine Bernal, for IV contrast use for CT abdomen with contrast. SOILA Lam is second witness. Consent is placed in chart. Will continue to monitor patient.
--- NOTE | 2018-06-30 19:30 | NUR ---
HAND-OFF: Report given to SOILA aLm.
[2018-06-30 20:00] VITALS: BP 104/63
--- NOTE | 2018-06-30 20:31 | Cardiology Progress Note ---
Assessment/Plan Assessment/Plan The patient is seen and examined, full consult note will be dictated shortly. Objective Last 24 Hour Vital Signs Date Time Temp Pulse Resp B/P (MAP) Pulse Ox O2 Delivery O2 Flow Rate FiO2 06/30/18 20:00 98.6 72 32 104/63 (77) 100 06/30/18 16:00 94 06/30/18 16:00 98.5 99 22 141/93 (109) 95 06/30/18 16:00 Venturi Mask 12.0 06/30/18 12:00 71 06/30/18 12:00 97.0 83 22 136/78 (97) 100 06/30/18 11:51 Venturi Mask 12.0 06/30/18 08:00 63 06/30/18 08:00 97.7 75 24 120/62 (81) 100 06/30/18 08:00 Venturi Mask 15.0 06/30/18 07:08 82 20 Venturi Mask 12.0 50 06/30/18 07:08 100 Venturi Mask 12.0 50 06/30/18 07:08 Venturi Mask 12.0 50 06/30/18 04:00 97.9 91 28 118/54 (75) 100 06/30/18 04:00 Non-Rebreather 15.0 06/30/18 03:56 78 06/30/18 00:00 98.2 89 28 122/60 (80) 100 06/30/18 00:00 Non-Rebreather 15.0 06/29/18 23:26 96 Intake and Output 06/29/18 06/30/18 18:59 06:59 Intake Total 1300.555 ml 958.195 ml Output Total 400 ml 350 ml Balance 900.555 ml 608.195 ml Intake Free Water 60 ml IV Total 1240.555 ml 858.195 ml Other 100 ml Output Urine Total 400 ml 350 ml Laboratory Tests Test 06/30/18 03:10 06/30/18 16:30 White Blood Count 8.1 K/UL (4.8-10.8) Red Blood Count 2.98 M/UL (4.20-5.40) L Hemoglobin 8.7 G/DL (12.0-16.0) L Hematocrit 27.3 % (37.0-47.0) L Mean Corpuscular Volume 92 FL (80-99) Mean Corpuscular Hemoglobin 29.3 PG (27.0-31.0) Mean Corpuscular Hemoglobin Concent 31.9 G/DL (32.0-36.0) L Red Cell Distribution Width 15.0 % (11.6-14.8) H Platelet Count 36 K/UL (150-450) L Mean Platelet Volume 12.6 FL (6.5-10.1) H Neutrophils (%) (Auto) % (45.0-75.0) Lymphocytes (%) (Auto) % (20.0-45.0) Monocytes (%) (Auto) % (1.0-10.0) Eosinophils (%) (Auto) % (0.0-3.0) Basophils (%) (Auto) % (0.0-2.0) Differential Total Cells Counted 100 Neutrophils % (Manual) 86 % (45-75) H Lymphocytes % (Manual) 2 % (20-45) L Monocytes % (Manual) 3 % (1-10) Eosinophils % (Manual) 0 % (0-3) Basophils % (Manual) 0 % (0-2) Band Neutrophils 9 % (0-8) H Platelet Estimate Decreased L Platelet Morphology Giant Platelets Occasional Hypochromasia 1+ Anisocytosis 1+ Prothrombin Time 13.9 SEC (9.30-11.50) H Prothromb Time International Ratio 1.3 (0.9-1.1) H Activated Partial Thromboplast Time 36 SEC (23-33) H Sodium Level 143 MMOL/L (136-145) Potassium Level 3.5 MMOL/L (3.5-5.1) Chloride Level 113 MMOL/L (98-107) H Carbon Dioxide Level 19 MMOL/L (21-32) L Anion Gap 11 mmol/L (5-15) Blood Urea Nitrogen 31 mg/dL (7-18) H Creatinine 0.9 MG/DL (0.55-1.30) Estimat Glomerular Filtration Rate mL/min (>60) Glucose Level 98 MG/DL (74-106) Calcium Level 7.8 MG/DL (8.5-10.1) L Phosphorus Level 2.4 MG/DL (2.5-4.9) L Magnesium Level 1.3 MG/DL (1.8-2.4) L Total Bilirubin 2.6 MG/DL (0.2-1.0) H Direct Bilirubin 1.8 MG/DL (0.0-0.3) H Aspartate Amino Transf (AST/SGOT) 163 U/L (15-37) H Alanine Aminotransferase (ALT/SGPT) 78 U/L (12-78) Alkaline Phosphatase 132 U/L (46-116) H Total Protein 4.7 G/DL (6.4-8.2) L Albumin 1.2 G/DL (3.4-5.0) L Globulin 3.5 g/dL Albumin/Globulin Ratio 0.3 (1.0-2.7) L Ferritin 942 NG/ML (8-388) H Folate 13.1 NG/ML (8.6-58.9) Microbiology Date/Time Source Procedure Growth Status 06/29/18 18:15 Blood Blood Culture - Preliminary Resulted 06/29/18 18:00 Blood Blood Culture - Preliminary Resulted 06/28/18 15:15 Blood Blood Culture - Preliminary Staphylococcus Aureus Resulted 06/28/18 15:15 Blood Blood Culture - Preliminary Staphylococcus Aureus Resulted Ede Newman MD Jun 30, 2018 20:31
[2018-06-30] MEDS: Dyna-Hex 2% Top Sol 2oz TOPIC SCH (20:42)
[2018-06-30] MEDS ORDERED: Pantoprazole Inj IVP SCH (21:00)
--- NOTE | 2018-06-30 21:57 | NUR ---
HAND-OFF: Report given to Omayra Mcdonald RN.
--- NOTE | 2018-06-30 21:57 | NUR ---
NURSE NOTES: Received report from SOILA Lam. Patient seen in bed in sky position. Nonverbal at this time, Currently on venturi mast, 15L50%. Spo02 is 96%. No S/Sx of pain noted using FLACC scale. Mid line present to right arm, peripheral IV to right hand 22g and left thumb 24 g, intact. NGT to left nare present, currently on low intermittent suctioning. Bed is in lowest position. Call light is within easy reach while in bed. Will continue to monitor.
[2018-07-01] VITALS: BP 120/66
[2018-07-01] MEDS: Pantoprazole 80 MG in NS 250 ML IV SCH ×3 (00:29→21:39)
[2018-07-01] MEDS: D5 1/2NS 1,000 ML IV SCH ×2 (03:30→22:57)
[2018-07-01 04:00] VITALS: BP 115/58
[2018-07-01 05:48] LABS: HEMATOCRIT 18.9 % (37.0-47.0); MEAN CORPUSCULAR VOLUME 93 FL (80-99); PLATELET COUNT 30 K/UL (150-450); RED BLOOD COUNT 2.03 M/UL (4.20-5.40); RED CELL DISTRIBUTION WIDTH 15.4 % (11.6-14.8)
[2018-07-01 05:54] LABS: HEMOGLOBIN 5.9 G/DL (12.0-16.0)
[2018-07-01] MEDS: NovoLOG Insulin Flexpen SUBQ SCH ×5 (06:00→22:56)
[2018-07-01 06:01] LABS: ANION GAP 13 mmol/L (5-15); BLOOD UREA NITROGEN 30 mg/dL (7-18); CALCIUM 6.6 MG/DL (8.5-10.1); CARBON DIOXIDE 13 MMOL/L (21-32); CHLORIDE 120 MMOL/L (98-107); CREATININE 0.7 MG/DL (0.55-1.30); POTASSIUM 3.7 MMOL/L (3.5-5.1); SODIUM 146 MMOL/L (136-145)
[2018-07-01 06:04] LABS: INR 1.5 (0.9-1.1)
--- NOTE | 2018-07-01 06:06 | NUR ---
NURSE NOTES: noted with Hgb 5.9, paged Dr Berkowitz. currently awaiting for call back
[2018-07-01 06:08] LABS: ALANINE AMINOTRANSFERASE 46 U/L (12-78); ALBUMIN 1.1 G/DL (3.4-5.0); ALKALINE PHOSPHATASE 91 U/L (46-116); ASPARTATE AMINO TRANSFERASE 28 U/L (15-37); BILIRUBIN,DIRECT 1.2 MG/DL (0.0-0.3); BILIRUBIN,TOTAL 1.9 MG/DL (0.2-1.0)
[2018-07-01 06:17] LABS: % IRON SATURATION 79 % (15-50); IRON 49 ug/dL (50-175); TOTAL IRON BINDING CAPACITY 62 ug/dL (250-450)
[2018-07-01 06:19] LABS: CREATINE KINASE 92 U/L (26-308)
[2018-07-01 06:33] LABS: LACTATE DEHYDROGENASE 206 U/L (81-234)
--- NOTE | 2018-07-01 07:09 | NUR ---
HAND-OFF: Report given to Amanda Kwon RN.
--- NOTE | 2018-07-01 07:10 | NUR ---
NURSE NOTES: Received patient from SOILA Pimentel. Patient is in bed on venturi mask 50%. director of health education in placed. NGT on the left nare on intermittent low suction. Currently NPO. IV sites are asymptomatic. HGB is 5.9, Dr. Berkowitz aware. Will repeat CBC before infusing blood. Bed in lowest position with side rails up. Will continue to follow plan of care.
[2018-07-01 08:00] VITALS: BP 101/79
[2018-07-01 08:20] LABS: HEMOGLOBIN 9.3 G/DL (12.0-16.0); MEAN CORPUSCULAR VOLUME 90 FL (80-99); PLATELET COUNT 34 K/UL (150-450); RED BLOOD COUNT 3.22 M/UL (4.20-5.40); RED CELL DISTRIBUTION WIDTH 15.1 % (11.6-14.8); WHITE BLOOD COUNT 11.8 K/UL (4.8-10.8)
[2018-07-01] MEDS: OLANZapine 2.5mg tab ORAL SCH ×2 (08:45→17:41)
--- NOTE | 2018-07-01 09:00 | NUR ---
NURSE NOTES: No blood was transfused because repeat of CBC was HGB 9.1. Addendum: 07/01/18 at 1949 by Amanda Lama RN HGB 9.3
--- NOTE | 2018-07-01 10:48 | Pulmonology Progress Note ---
Assessment/Plan Problems: (1) Thrombocytopenia (2) Sepsis (3) ATN (acute tubular necrosis) (4) Pulmonary hypertension (5) Sacral decubitus ulcer, stage III (6) Alzheimer's dementia (7) Protein-calorie malnutrition, severe (8) HTN (hypertension) (9) Pacemaker (10) CAD (coronary artery disease) Assessment/Plan on face mask /u PLT failed swallow study Morphine prn d/w wound care nurse, mckeon cultures iv fluids check electrolytes sliding scale check electrolytes daily broad spectrum abx dvt prophylaxis insulin coverage. social service consult Subjective ROS Limited/Unobtainable: Yes Interval Events: responds to pain only Constitutional: Reports: no symptoms Allergies: Coded Allergies: No Known Allergies (Unverified , 08/10/13) Objective Last 24 Hour Vital Signs Date Time Temp Pulse Resp B/P (MAP) Pulse Ox O2 Delivery O2 Flow Rate FiO2 07/01/18 08:00 Venturi Mask 12.0 07/01/18 08:00 97.8 85 32 101/79 (86) 93 07/01/18 04:00 Venturi Mask 12.0 07/01/18 04:00 97.7 67 32 115/58 (77) 97 07/01/18 03:20 71 07/01/18 00:00 Venturi Mask 12.0 07/01/18 00:00 98.0 96 32 120/66 (84) 95 06/30/18 23:24 73 06/30/18 21:55 81 20 Venturi Mask 12.0 50 06/30/18 21:55 Venturi Mask 12.0 50 06/30/18 21:55 100 Venturi Mask 12.0 50 06/30/18 20:00 98.6 72 32 104/63 (77) 100 06/30/18 20:00 Venturi Mask 12.0 06/30/18 19:29 66 06/30/18 16:00 94 06/30/18 16:00 98.5 99 22 141/93 (109) 95 06/30/18 16:00 Venturi Mask 12.0 06/30/18 12:00 71 06/30/18 12:00 97.0 83 22 136/78 (97) 100 06/30/18 11:51 Venturi Mask 12.0 Intake and Output 06/30/18 07/01/18 19:00 07:00 Intake Total 775 ml 875 ml Output Total 300 ml 350 ml Balance 475 ml 525 ml IV Total 675 ml 775 ml Other 100 ml 100 ml Output Urine Total 300 ml 350 ml # Voids 2 Objective General Appearance: cachectic HEENT: normocephalic, somnolent Respiratory/Chest: chest wall non-tender, lungs clear Cardiovascular: normal peripheral pulses, normal rate Abdomen: normal bowel sounds, soft, non tender Extremities: no cyanosis Skin: no rash Microbiology Date/Time Source Procedure Growth Status 06/29/18 18:15 Blood Blood Culture - Final Staphylococcus Aureus - Mrsa Complete 06/29/18 18:00 Blood Blood Culture - Final Staphylococcus Aureus - Mrsa Complete 06/28/18 15:15 Blood Blood Culture - Final Staphylococcus Aureus - Mrsa Complete 06/28/18 15:15 Blood Blood Culture - Final Staphylococcus Aureus - Mrsa Complete Laboratory Tests 06/30/18 16:30: Ferritin 942H, Folate 13.1 07/01/18 05:24: White Blood Count 7.0, Red Blood Count 2.03L, Hemoglobin 5.9#*L, Hematocrit 18.9 #L, Mean Corpuscular Volume 93, Mean Corpuscular Hemoglobin 29.1, Mean Corpuscular Hemoglobin Concent 31.2L, Red Cell Distribution Width 15.4H, Platelet Count 30L, Mean Platelet Volume 13.2H, Neutrophils (%) (Auto) , Lymphocytes (%) (Auto) , Monocytes (%) (Auto) , Eosinophils (%) (Auto) , Basophils (%) (Auto) , Differential Total Cells Counted 100, Neutrophils % ( Manual) 80H, Lymphocytes % (Manual) 9L, Monocytes % (Manual) 3, Eosinophils % ( Manual) 0, Basophils % (Manual) 0, Band Neutrophils 8, Platelet Estimate DecreasedL, Platelet Morphology Normal, Hypochromasia 2+, Anisocytosis 2+, Prothrombin Time 15.4H, Prothromb Time International Ratio 1.5H, Activated Partial Thromboplast Time 39H, Fibrinogen 192L, Sodium Level 146H, Potassium Level 3.7, Chloride Level 120H, Carbon Dioxide Level 13L, Anion Gap 13, Blood Urea Nitrogen 30H, Creatinine 0.7, Estimat Glomerular Filtration Rate , Glucose Level 104, Calcium Level 6.6L, Iron Level 49L, Total Iron Binding Capacity 62L, Percent Iron Saturation 79H, Unsaturated Iron Binding 13L, Total Bilirubin 1.9H , Direct Bilirubin 1.2H, Aspartate Amino Transf (AST/SGOT) 28, Alanine Aminotransferase (ALT/SGPT) 46, Alkaline Phosphatase 91, Lactate Dehydrogenase 206, Total Creatine Kinase 92, C-Reactive Protein, Quantitative 8.9H, Total Protein 4.2L, Albumin 1.1L 07/01/18 07:45: White Blood Count 11.8#H, Red Blood Count 3.22L, Hemoglobin 9.3#L, Hematocrit 29.0#L, Mean Corpuscular Volume 90, Mean Corpuscular Hemoglobin 28.8, Mean Corpuscular Hemoglobin Concent 32.0, Red Cell Distribution Width 15.1H, Platelet Count 34L, Mean Platelet Volume 11.8H, Neutrophils (%) (Auto) , Lymphocytes (%) (Auto) , Monocytes (%) (Auto) , Eosinophils (%) (Auto) , Basophils (%) (Auto) , Differential Total Cells Counted 100, Neutrophils % ( Manual) 85H, Lymphocytes % (Manual) 4L, Monocytes % (Manual) 6, Eosinophils % ( Manual) 1, Basophils % (Manual) 0, Band Neutrophils 4, Platelet Estimate DecreasedL, Platelet Morphology Normal, Hypochromasia 1+, Anisocytosis 1+, Erythrocyte Sedimentation Rate 35H, Haptoglobin [Pending], Heparin-PF4 Antibody Screen [Pending], Hepatitis A IgM Antibody [Pending], Hepatitis B Surface Antigen [Pending], Hepatitis B Core IgM Antibody [Pending], Hepatitis C Antibody [Pending] Current Medications Medications (Trade) Dose Ordered Sig/Yi Route PRN Reason Start Time Stop Time Status Last Admin Dose Admin Acetaminophen (Tylenol) 650 mg Q4H PRN NG Mild Pain/Temp > 100.5 06/29/18 18:15 07/29/18 18:14 Barium Sulfate (Readi-Cat 2) 450 ml NOW PRN ORAL Radiology Procedure 06/30/18 16:00 07/01/18 15:59 Chlorhexidine Gluconate (Mirtha-Hex 2%) 1 applic DAILY@1999 TOPIC 06/29/18 20:00 07/29/18 19:59 06/30/18 20:42 Clonidine HCl (Catapres Tab) 0.1 mg Q8H PRN ORAL SBP>160mmHg 06/28/18 06:30 07/25/18 06:29 Daptomycin 400 mg/ Sodium Chloride 55 ml @ 100 mls/hr Q24H IV 06/30/18 18:00 07/07/18 17:59 06/30/18 18:11 Dextrose (Dextrose 50%) 25 ml Q30M PRN IV Hypoglycemia 06/28/18 06:15 07/24/18 13:30 Dextrose (Dextrose 50%) 50 ml Q30M PRN IV hypoglycemia 06/28/18 06:15 07/24/18 13:44 Dextrose/Sodium Chloride 1,000 ml @ 50 mls/hr Q20H IV 06/29/18 11:30 07/29/18 11:29 07/01/18 03:30 Insulin Aspart (NovoLOG) EVERY 6 HOURS SUBQ 06/28/18 12:00 07/24/18 16:29 06/29/18 12:22 Iopamidol (Isovue-300 100ml) 100 ml NOW PRN INJ Radiology Procedure 06/30/18 16:00 07/01/18 15:59 Lorazepam (Ativan) 1 mg Q6H PRN ORAL For Anxiety 06/28/18 07:00 07/02/18 12:52 Morphine Sulfate (Morphine Sulfate) 2 mg Q4H PRN IVP Moderate Pain (Pain Scale 4-6) 06/28/18 09:00 07/02/18 12:52 06/29/18 22:01 Olanzapine (ZyPREXA) 2.5 mg BID ORAL 06/28/18 09:00 07/25/18 10:59 07/01/18 08:45 Ondansetron HCl (Zofran) 4 mg Q6H PRN IVP Nausea & Vomiting 06/28/18 07:00 07/25/18 12:52 Pantoprazole 80 mg/Sodium Chloride 250 ml @ 25 mls/hr Q10H IV 06/30/18 15:00 07/30/18 14:59 07/01/18 10:15 Temazepam (Restoril) 15 mg HSPRN PRN ORAL Insomnia 06/28/18 21:00 07/01/18 20:59 06/30/18 01:10 Rod Mancera MD Jul 01, 2018 10:48
--- NOTE | 2018-07-01 11:44 | Pre-Procedure Note/Attestation ---
Pre-Procedure Note/Attestation Complete Prior to Procedure Planned Procedure: not applicable Procedure Narrative: EGD Indications for Procedure Pre-Operative Diagnosis: GERD Attestation I attest that I discussed the nature of the procedure; its benefits; risks and complications; and alternatives (and the risks and benefits of such alternatives ), prior to the procedure, with the patient (or the patient's legal retail representative). I attest that, if there was a reasonable possibility of needing a blood transfusion, the patient (or the patient's legal retail representative) was given the [facility] standardized written summary, pursuant to the [place] Blood Safety Act ([place] Health and Safety Code # 1645, as amended). I attest that I re-evaluated the patient just prior to the surgery and that there has been no change in the patient's H&P, except as documented below: Oli Wallace MD Jul 01, 2018 11:44
--- NOTE | 2018-07-01 11:49 | Anethesia Preoperative Eval ---
Anesthesia Pre-op PMH/ROS General Date of Evaluation: Jul 01, 2018 Time of Evaluation: 11:41 Anesthesiologist: Kita Stewart CRNA ASA Score: ASA 4 Mallampati Score Class I : Soft palate, uvula, fauces, pillars visible Class II: Soft palate, uvula, fauces visible Class III: Soft palate, base of uvula visible Class IV: Only hard plate visible Mallampati Classification: Class II Surgeon: Rodrigo Diagnosis: dehydration, gi bleed Surgical Procedure: EGD diagnostic Anesthesia History: none Family History: no anesthesia problems Allergies: Coded Allergies: No Known Allergies (Unverified , 08/10/13) Medications: see eMAR Patient NPO?: Yes NPO Date: Jul 01, 2018 NPO Time: 00:00 Past Medical History Cardiovascular: Reports: HTN, CAD, arrhythmia - sick sinus syndrome, (+) pacemacker, CHF Pulmonary: Reports: other - pulmonary hypertension Gastrointestinal/Genitourinary: Reports: other - acute tubular necrosis Neurologic/Psychiatric: Reports: dementia - alzheimers Endocrine: Reports: DM Hematology/Immune: Reports: anemia, DVT; Denies: bleeding disorder, other Musculoskeletal/Integumentary: Reports: other - sacral decubitus ulcer PMH Narrative: as above PSxH Narrative: see H & P Anesthesia Pre-op Phys. Exam Physician Exam Last Vital Signs Date Time Temp Pulse Resp B/P (MAP) Pulse Ox O2 Delivery O2 Flow Rate FiO2 07/01/18 08:00 Venturi Mask 12.0 07/01/18 08:00 97.8 85 32 101/79 (86) 93 06/30/18 21:55 50 Constitutional: other - contractured Cardiovascular: RRR Respiratory: other - Venturi mask Gastrointestinal: S/NT/ND, other - Ng tube insitu Airway Exam Mallampati Score: Class II Teeth: missing Anesthesia Pre-op A/P Labs Hematology Test 07/01/18 05:24 07/01/18 07:45 White Blood Count 7.0 K/UL (4.8-10.8) 11.8 K/UL (4.8-10.8) #H Red Blood Count 2.03 M/UL (4.20-5.40) L 3.22 M/UL (4.20-5.40) L Hemoglobin 5.9 G/DL (12.0-16.0) 9.3 G/DL (12.0-16.0) #L Hematocrit 18.9 % (37.0-47.0) #L 29.0 % (37.0-47.0) #L Mean Corpuscular Volume 93 FL (80-99) 90 FL (80-99) Mean Corpuscular Hemoglobin 29.1 PG (27.0-31.0) 28.8 PG (27.0-31.0) Mean Corpuscular Hemoglobin Concent 31.2 G/DL (32.0-36.0) L 32.0 G/DL (32.0-36.0) Red Cell Distribution Width 15.4 % (11.6-14.8) H 15.1 % (11.6-14.8) H Platelet Count 30 K/UL (150-450) L 34 K/UL (150-450) L Mean Platelet Volume 13.2 FL (6.5-10.1) H 11.8 FL (6.5-10.1) H Neutrophils (%) (Auto) % (45.0-75.0) % (45.0-75.0) Lymphocytes (%) (Auto) % (20.0-45.0) % (20.0-45.0) Monocytes (%) (Auto) % (1.0-10.0) % (1.0-10.0) Eosinophils (%) (Auto) % (0.0-3.0) % (0.0-3.0) Basophils (%) (Auto) % (0.0-2.0) % (0.0-2.0) Differential Total Cells Counted 100 100 Neutrophils % (Manual) 80 % (45-75) H 85 % (45-75) H Lymphocytes % (Manual) 9 % (20-45) L 4 % (20-45) L Monocytes % (Manual) 3 % (1-10) 6 % (1-10) Eosinophils % (Manual) 0 % (0-3) 1 % (0-3) Basophils % (Manual) 0 % (0-2) 0 % (0-2) Band Neutrophils 8 % (0-8) 4 % (0-8) Platelet Estimate Decreased L Decreased L Platelet Morphology Normal Normal Hypochromasia 2+ 1+ Anisocytosis 2+ 1+ Erythrocyte Sedimentation Rate 35 MM/HR (0-30) H Haptoglobin Pending Coagulation Test 07/01/18 05:24 Prothrombin Time 15.4 SEC (9.30-11.50) H Prothromb Time International Ratio 1.5 (0.9-1.1) H Activated Partial Thromboplast Time 39 SEC (23-33) H Fibrinogen 192 mg/dL (200-400) L Chemistry Test 06/30/18 16:30 07/01/18 05:24 Ferritin 942 NG/ML (8-388) H Folate 13.1 NG/ML (8.6-58.9) Sodium Level 146 MMOL/L (136-145) H Potassium Level 3.7 MMOL/L (3.5-5.1) Chloride Level 120 MMOL/L (98-107) H Carbon Dioxide Level 13 MMOL/L (21-32) L Anion Gap 13 mmol/L (5-15) Blood Urea Nitrogen 30 mg/dL (7-18) H Creatinine 0.7 MG/DL (0.55-1.30) Estimat Glomerular Filtration Rate mL/min (>60) Glucose Level 104 MG/DL (74-106) Calcium Level 6.6 MG/DL (8.5-10.1) L Iron Level 49 ug/dL (50-175) L Total Iron Binding Capacity 62 ug/dL (250-450) L Percent Iron Saturation 79 % (15-50) H Unsaturated Iron Binding 13 ug/dL (112-346) L Total Bilirubin 1.9 MG/DL (0.2-1.0) H Direct Bilirubin 1.2 MG/DL (0.0-0.3) H Aspartate Amino Transf (AST/SGOT) 28 U/L (15-37) Alanine Aminotransferase (ALT/SGPT) 46 U/L (12-78) Alkaline Phosphatase 91 U/L (46-116) Lactate Dehydrogenase 206 U/L (81-234) Total Creatine Kinase 92 U/L (26-308) C-Reactive Protein, Quantitative 8.9 mg/dL (0.00-0.90) H Total Protein 4.2 G/DL (6.4-8.2) L Albumin 1.1 G/DL (3.4-5.0) L Studies Pre-op Studies: EKG - NSR with lateral infarct, echo - EF 20-25, RT ventricula systolic pressure 77 Risk Assessment & Plan Assessment: ASA 4, ok to proceed Plan: MAC Pre-Antibiotics Given Within 1 Hr of Incision: Kita Alcaraz CRNA Jul 01, 2018 11:49
[2018-07-01 12:00] VITALS: BP 104/68
[2018-07-01] MEDS ORDERED: NS 500ML IVPB ONE (12:05)
--- NOTE | 2018-07-01 12:28 | General Progress Note ---
Assessment/Plan Problem List: (1) Severe anemia ICD Codes: D64.9 - Anemia, unspecified SNOMED: 193054826 (2) Alzheimer's dementia ICD Codes: G30.9 - Alzheimer's disease, unspecified; F02.80 - Dementia in other diseases classified elsewhere without behavioral disturbance SNOMED: 50454819 (3) Pulmonary hypertension ICD Codes: I27.20 - Pulmonary hypertension, unspecified SNOMED: 42910622 (4) Protein-calorie malnutrition, severe ICD Codes: E43 - Unspecified severe protein-calorie malnutrition SNOMED: 687199519 (5) Pacemaker ICD Codes: Z95.0 - Presence of cardiac pacemaker SNOMED: 892318114 (6) HTN (hypertension) ICD Codes: I10 - Essential (primary) hypertension SNOMED: 13209294 (7) CAD (coronary artery disease) ICD Codes: I25.10 - Atherosclerotic heart disease of [place] coronary artery without angina pectoris SNOMED: 09794246 (8) Diabetes mellitus, type II ICD Codes: E11.9 - Type 2 diabetes mellitus without complications SNOMED: 62907696 Assessment/Plan Possible EGD tomorrow to evaluate upper GI bleed, today's EGD was canceled by anesthesia Patient may need PEG in the future, follow-up ST evaluations NGT to low intermittent suction Protonix drip anemia work up OB stool r/o GI bleed monitor H&H, prn transfusions bowel regime fu labs, hepatitis panel Subjective ROS Limited/Unobtainable: No Allergies: Coded Allergies: No Known Allergies (Unverified , 08/10/13) Objective Last 24 Hour Vital Signs Date Time Temp Pulse Resp B/P (MAP) Pulse Ox O2 Delivery O2 Flow Rate FiO2 07/01/18 08:02 81 07/01/18 08:00 Venturi Mask 12.0 07/01/18 08:00 97.8 85 32 101/79 (86) 93 07/01/18 04:00 Venturi Mask 12.0 07/01/18 04:00 97.7 67 32 115/58 (77) 97 07/01/18 03:20 71 07/01/18 00:00 Venturi Mask 12.0 07/01/18 00:00 98.0 96 32 120/66 (84) 95 06/30/18 23:24 73 06/30/18 21:55 81 20 Venturi Mask 12.0 50 06/30/18 21:55 Venturi Mask 12.0 50 06/30/18 21:55 100 Venturi Mask 12.0 50 06/30/18 20:00 98.6 72 32 104/63 (77) 100 06/30/18 20:00 Venturi Mask 12.0 06/30/18 19:29 66 06/30/18 16:00 94 06/30/18 16:00 98.5 99 22 141/93 (109) 95 06/30/18 16:00 Venturi Mask 12.0 Intake and Output 06/30/18 07/01/18 19:00 07:00 Intake Total 775 ml 875 ml Output Total 300 ml 350 ml Balance 475 ml 525 ml IV Total 675 ml 775 ml Other 100 ml 100 ml Output Urine Total 300 ml 350 ml # Voids 2 Laboratory Tests 06/30/18 16:30: Ferritin 942H, Folate 13.1 07/01/18 05:24: White Blood Count 7.0, Red Blood Count 2.03L, Hemoglobin 5.9#*L, Hematocrit 18.9 #L, Mean Corpuscular Volume 93, Mean Corpuscular Hemoglobin 29.1, Mean Corpuscular Hemoglobin Concent 31.2L, Red Cell Distribution Width 15.4H, Platelet Count 30L, Mean Platelet Volume 13.2H, Neutrophils (%) (Auto) , Lymphocytes (%) (Auto) , Monocytes (%) (Auto) , Eosinophils (%) (Auto) , Basophils (%) (Auto) , Differential Total Cells Counted 100, Neutrophils % ( Manual) 80H, Lymphocytes % (Manual) 9L, Monocytes % (Manual) 3, Eosinophils % ( Manual) 0, Basophils % (Manual) 0, Band Neutrophils 8, Platelet Estimate DecreasedL, Platelet Morphology Normal, Hypochromasia 2+, Anisocytosis 2+, Prothrombin Time 15.4H, Prothromb Time International Ratio 1.5H, Activated Partial Thromboplast Time 39H, Fibrinogen 192L, Sodium Level 146H, Potassium Level 3.7, Chloride Level 120H, Carbon Dioxide Level 13L, Anion Gap 13, Blood Urea Nitrogen 30H, Creatinine 0.7, Estimat Glomerular Filtration Rate , Glucose Level 104, Calcium Level 6.6L, Iron Level 49L, Total Iron Binding Capacity 62L, Percent Iron Saturation 79H, Unsaturated Iron Binding 13L, Total Bilirubin 1.9H , Direct Bilirubin 1.2H, Aspartate Amino Transf (AST/SGOT) 28, Alanine Aminotransferase (ALT/SGPT) 46, Alkaline Phosphatase 91, Lactate Dehydrogenase 206, Total Creatine Kinase 92, C-Reactive Protein, Quantitative 8.9H, Total Protein 4.2L, Albumin 1.1L 07/01/18 07:45: White Blood Count 11.8#H, Red Blood Count 3.22L, Hemoglobin 9.3#L, Hematocrit 29.0#L, Mean Corpuscular Volume 90, Mean Corpuscular Hemoglobin 28.8, Mean Corpuscular Hemoglobin Concent 32.0, Red Cell Distribution Width 15.1H, Platelet Count 34L, Mean Platelet Volume 11.8H, Neutrophils (%) (Auto) , Lymphocytes (%) (Auto) , Monocytes (%) (Auto) , Eosinophils (%) (Auto) , Basophils (%) (Auto) , Differential Total Cells Counted 100, Neutrophils % ( Manual) 85H, Lymphocytes % (Manual) 4L, Monocytes % (Manual) 6, Eosinophils % ( Manual) 1, Basophils % (Manual) 0, Band Neutrophils 4, Platelet Estimate DecreasedL, Platelet Morphology Normal, Hypochromasia 1+, Anisocytosis 1+, Erythrocyte Sedimentation Rate 35H, Haptoglobin [Pending], Heparin-PF4 Antibody Screen [Pending], Hepatitis A IgM Antibody [Pending], Hepatitis B Surface Antigen [Pending], Hepatitis B Core IgM Antibody [Pending], Hepatitis C Antibody [Pending] Height (Feet): 5 Height (Inches): 5.00 Weight (Pounds): 144 General Appearance: confused EENT: normal ENT inspection Neck: supple Cardiovascular: tachycardia Respiratory/Chest: decreased breath sounds Abdomen: normal bowel sounds, non tender, soft Extremities: non-tender Oli Wallace MD Jul 01, 2018 12:28
--- NOTE | 2018-07-01 14:00 | NUR ---
NURSE NOTES: EGD procedure was cancelled because GI could not speak to the daughter to get consent for the Anesthesia. Will try again tomorrow.
--- NOTE | 2018-07-01 15:36 | Infectious Diseases Prog Note ---
Assessment/Plan Assessment/Plan 82 yo female with PMHx DM, CAD, Alzheimer dementia and Hip fracture who presents with dehydration and weakness. High grade persistent bacteremia- suspect endovascular source (ie endocarditis, PPM infection) -2d Echo (limited study due to contractures): no vegetations seen -06/27 Bcx /MRSA; 06/28 Bcx 06/21 MRSA; 06/29 08/19 MRSA; 06/30 Bc xp 06/25/18 Blood Cx 08/19 MRSA 06/24/18 Wound Cx MRSA, ESBL E.coli (S ZOsyn), K. pna (S Zosyn) Mild leukocytosis, recurrent Low grade fever; improving Positive UA CXR neg Thrombocytopenia- HIT vs medication related Pressure ulcers Not infected Right hip fracture with hemiarthroplasty Feb 2018 DM HTN Sick sinus syndrome sp Pacemaker HLD CAD - SP IL and CABG Aortic stenosis. Pulmonary hypertension. Alzheimer dementia. PLAN - Continue Daptomycin #2 (abx d #7) given persistent MRSA Bacteremia - will add Ceftaroline if ongoing bacteremia -06/30 SP Vancomycin #6 -06/30 SP Zosyn #4 -06/27 SP Cefepime #3 -Will need NELDA to look for endocarditis and/or PPM infection if consistent with goals of care -f/u REpeat 2 sets of Bcx -f/u CT chest/abd/p w/ to eval for occult abscess - f/u repeat cultures - Monitor CBC and temps - wound care - Nutritional support Thank you for this consult. We will continue to follow the patient during this hospitalization. Subjective Allergies: Coded Allergies: No Known Allergies (Unverified , 08/10/13) Subjective ; afebrline >36hrs mild leukoycotis Bcx 06/[address] p Objective Vital Signs Last 24 Hour Vital Signs Date Time Temp Pulse Resp B/P (MAP) Pulse Ox O2 Delivery O2 Flow Rate FiO2 07/01/18 12:00 Venturi Mask 12.0 07/01/18 12:00 96.8 110 28 104/68 (80) 95 07/01/18 08:02 81 07/01/18 08:00 Venturi Mask 12.0 07/01/18 08:00 97.8 85 32 101/79 (86) 93 07/01/18 04:00 Venturi Mask 12.0 07/01/18 04:00 97.7 67 32 115/58 (77) 97 07/01/18 03:20 71 07/01/18 00:00 Venturi Mask 12.0 07/01/18 00:00 98.0 96 32 120/66 (84) 95 06/30/18 23:24 73 06/30/18 21:55 81 20 Venturi Mask 12.0 50 06/30/18 21:55 Venturi Mask 12.0 50 06/30/18 21:55 100 Venturi Mask 12.0 50 06/30/18 20:00 98.6 72 32 104/63 (77) 100 06/30/18 20:00 Venturi Mask 12.0 06/30/18 19:29 66 06/30/18 16:00 94 06/30/18 16:00 98.5 99 22 141/93 (109) 95 06/30/18 16:00 Venturi Mask 12.0 Height (Feet): 5 Height (Inches): 5.00 Weight (Pounds): 144 Objective Gen: Moaning, Awake but no following HEENT: NCAT, MMM, EOMI, PERRL LUNGS: CTAB, No W CARDS: RRR, S1, S2, No M/R/G, ABD: Soft, NT, ND, + BS Ext: Poor circulation to Ext (cool to touch) , Pulses 2+ B/L (DP, Rad): SKIN: Dry, No rashes, Large sacral ulcer. Mild odor no surrounding cellulitis, foot with eschar Microbiology Date/Time Source Procedure Growth Status 06/29/18 18:15 Blood Blood Culture - Final Staphylococcus Aureus - Mrsa Complete 06/29/18 18:00 Blood Blood Culture - Final Staphylococcus Aureus - Mrsa Complete Laboratory Tests Test 06/30/18 16:30 07/01/18 05:24 07/01/18 07:45 Ferritin 942 NG/ML (8-388) H Folate 13.1 NG/ML (8.6-58.9) White Blood Count 7.0 K/UL (4.8-10.8) 11.8 K/UL (4.8-10.8) #H Red Blood Count 2.03 M/UL (4.20-5.40) L 3.22 M/UL (4.20-5.40) L Hemoglobin 5.9 G/DL (12.0-16.0) 9.3 G/DL (12.0-16.0) #L Hematocrit 18.9 % (37.0-47.0) #L 29.0 % (37.0-47.0) #L Mean Corpuscular Volume 93 FL (80-99) 90 FL (80-99) Mean Corpuscular Hemoglobin 29.1 PG (27.0-31.0) 28.8 PG (27.0-31.0) Mean Corpuscular Hemoglobin Concent 31.2 G/DL (32.0-36.0) L 32.0 G/DL (32.0-36.0) Red Cell Distribution Width 15.4 % (11.6-14.8) H 15.1 % (11.6-14.8) H Platelet Count 30 K/UL (150-450) L 34 K/UL (150-450) L Mean Platelet Volume 13.2 FL (6.5-10.1) H 11.8 FL (6.5-10.1) H Neutrophils (%) (Auto) % (45.0-75.0) % (45.0-75.0) Lymphocytes (%) (Auto) % (20.0-45.0) % (20.0-45.0) Monocytes (%) (Auto) % (1.0-10.0) % (1.0-10.0) Eosinophils (%) (Auto) % (0.0-3.0) % (0.0-3.0) Basophils (%) (Auto) % (0.0-2.0) % (0.0-2.0) Differential Total Cells Counted 100 100 Neutrophils % (Manual) 80 % (45-75) H 85 % (45-75) H Lymphocytes % (Manual) 9 % (20-45) L 4 % (20-45) L Monocytes % (Manual) 3 % (1-10) 6 % (1-10) Eosinophils % (Manual) 0 % (0-3) 1 % (0-3) Basophils % (Manual) 0 % (0-2) 0 % (0-2) Band Neutrophils 8 % (0-8) 4 % (0-8) Platelet Estimate Decreased L Decreased L Platelet Morphology Normal Normal Hypochromasia 2+ 1+ Anisocytosis 2+ 1+ Prothrombin Time 15.4 SEC (9.30-11.50) H Prothromb Time International Ratio 1.5 (0.9-1.1) H Activated Partial Thromboplast Time 39 SEC (23-33) H Fibrinogen 192 mg/dL (200-400) L Sodium Level 146 MMOL/L (136-145) H Potassium Level 3.7 MMOL/L (3.5-5.1) Chloride Level 120 MMOL/L (98-107) H Carbon Dioxide Level 13 MMOL/L (21-32) L Anion Gap 13 mmol/L (5-15) Blood Urea Nitrogen 30 mg/dL (7-18) H Creatinine 0.7 MG/DL (0.55-1.30) Estimat Glomerular Filtration Rate mL/min (>60) Glucose Level 104 MG/DL (74-106) Calcium Level 6.6 MG/DL (8.5-10.1) L Iron Level 49 ug/dL (50-175) L Total Iron Binding Capacity 62 ug/dL (250-450) L Percent Iron Saturation 79 % (15-50) H Unsaturated Iron Binding 13 ug/dL (112-346) L Total Bilirubin 1.9 MG/DL (0.2-1.0) H Direct Bilirubin 1.2 MG/DL (0.0-0.3) H Aspartate Amino Transf (AST/SGOT) 28 U/L (15-37) Alanine Aminotransferase (ALT/SGPT) 46 U/L (12-78) Alkaline Phosphatase 91 U/L (46-116) Lactate Dehydrogenase 206 U/L (81-234) Total Creatine Kinase 92 U/L (26-308) C-Reactive Protein, Quantitative 8.9 mg/dL (0.00-0.90) H Total Protein 4.2 G/DL (6.4-8.2) L Albumin 1.1 G/DL (3.4-5.0) L Erythrocyte Sedimentation Rate 35 MM/HR (0-30) H Haptoglobin Pending Heparin-PF4 Antibody Screen Pending Hepatitis A IgM Antibody Pending Hepatitis B Surface Antigen Pending Hepatitis B Core IgM Antibody Pending Hepatitis C Antibody Pending Current Medications Medications (Trade) Dose Ordered Sig/Yi Route PRN Reason Start Time Stop Time Status Last Admin Dose Admin Acetaminophen (Tylenol) 650 mg Q4H PRN NG Mild Pain/Temp > 100.5 06/29/18 18:15 07/29/18 18:14 Barium Sulfate (Readi-Cat 2) 450 ml NOW PRN ORAL Radiology Procedure 06/30/18 16:00 07/01/18 15:59 Chlorhexidine Gluconate (Mirtha-Hex 2%) 1 applic DAILY@2000 TOPIC 06/29/18 20:00 07/29/18 19:59 06/30/18 20:42 Clonidine HCl (Catapres Tab) 0.1 mg Q8H PRN ORAL SBP>160mmHg 06/28/18 06:30 07/25/18 06:29 Daptomycin 400 mg/ Sodium Chloride 55 ml @ 100 mls/hr Q24H IV 06/30/18 18:00 07/07/18 17:59 06/30/18 18:11 Dextrose (Dextrose 50%) 25 ml Q30M PRN IV Hypoglycemia 06/28/18 06:15 07/24/18 13:30 Dextrose (Dextrose 50%) 50 ml Q30M PRN IV hypoglycemia 06/28/18 06:15 07/24/18 13:44 Dextrose/Sodium Chloride 1,000 ml @ 50 mls/hr Q20H IV 06/29/18 11:30 07/29/18 11:29 07/01/18 03:30 Insulin Aspart (NovoLOG) EVERY 6 HOURS SUBQ 06/28/18 12:00 07/24/18 16:29 06/29/18 12:22 Iopamidol (Isovue-300 100ml) 100 ml NOW PRN INJ Radiology Procedure 06/30/18 16:00 07/01/18 15:59 Lorazepam (Ativan) 1 mg Q6H PRN ORAL For Anxiety 06/28/18 07:00 07/02/18 12:52 Morphine Sulfate (Morphine Sulfate) 2 mg Q4H PRN IVP Moderate Pain (Pain Scale 4-6) 06/28/18 09:00 07/02/18 12:52 06/29/18 22:01 Olanzapine (ZyPREXA) 2.5 mg BID ORAL 06/28/18 09:00 07/25/18 10:59 07/01/18 08:45 Ondansetron HCl (Zofran) 4 mg Q6H PRN IVP Nausea & Vomiting 06/28/18 07:00 07/25/18 12:52 Pantoprazole 80 mg/Sodium Chloride 250 ml @ 25 mls/hr Q10H IV 06/30/18 15:00 07/30/18 14:59 07/01/18 10:15 Temazepam (Restoril) 15 mg HSPRN PRN ORAL Insomnia 06/28/18 21:00 07/01/18 20:59 06/30/18 01:10 Roseann Bardales M.D. Jul 01, 2018 15:36
--- NOTE | 2018-07-01 15:46 | NUR ---
NURSE NOTES:WOUND CARE FOLLOW-UP NOTES:Pt's phalanges both hands cyanotic and cold.L upper ext edematous and weeping serous exudate.Non-blanchable erythema L elbow with an area medially noted to be weeping serous exudate.#3 petechiae noted to R scapula. R upper ext also edematous. DTPI sacrum-base of wound maroon ,indurated with multiple open areas with slough. Borders are indurated and purple small amt sanguineous exudate noted. Mild odor noted.(L)9.5cm x (W)11cm. L foot edematous,dusky and cold. cyanosis of metatarsals and plantar aspect .Dorso /flexor L foot maroon with scattered purple areas within base of affected area,oozing small amt serous exudate(L)7cm x (W)8cm. Stable dry eschar L heel2.5cm x (W)2cm .Periwound heel is dusky in colour. Stable dry eschar distal /posterior R tibia (L)1.1cm x (W)3.5cm. Wound posterior R calf with mixed slough/necrosis .Small amt non-odorous brown exudate noted (L)1.5cm x (W)1.5cm. All wound prevention protocols are being observed as implemented.Pt has an APM with ANALILIA mattress overlay and observed positioned properly with pillows. Tx.Plan : Apply Abd pads and wrap L forearm with kerlix .Change daily and prn. Continue all current wound care orders as ordered .
[2018-07-01 16:00] VITALS: BP 102/60
--- NOTE | 2018-07-01 16:54 | General Progress Note ---
Assessment/Plan Assessment/Plan ASSESSMENT/RECS: 1. Pancytopenia with thrombocytopenia that is severe is most likely related to Sepsis, lactic acidosis. In addition has received heparin. US abdomen ordered and shows no spleen and no cirrhosis --> heparin discontinued --> HIT ab test ordered with venous duplex --> smear peripheral has been ordered --> tumor markers as needed/prn --> hold off on transfusion unless plt <20k --> hold off on steriods --> plt trend: 34--> 2. Failure to thrive with severe protein calorie malnutrition. ->> calorie counts daily --> consider mirtazapine as needed per pcp 3. Anemia of chronic disease --> panel has been ordered --> transfuse if hgb <7 4. Leukocytosis --> on abx as per id for infection 5. Hypertension. 6. Sick sinus syndrome. 7. Hypercholesterolemia. 8. Aortic stenosis. 9. Pulmonary hypertension. 10. Alzheimer dementia. 11. Acute tubular necrosis/acute kidney injury most likely secondary to dehydration and sepsis. Greatly appreciate consultation! Subjective Allergies: Coded Allergies: No Known Allergies (Unverified , 08/10/13) Subjective 07/01:seen by bedside, Possible EGD tomorrow to evaluate upper GI bleed, today's EGD was canceled by anesthesia, plt remains low at 34, hgb trending up . Objective Last 24 Hour Vital Signs Date Time Temp Pulse Resp B/P (MAP) Pulse Ox O2 Delivery O2 Flow Rate FiO2 07/01/18 12:00 Venturi Mask 12.0 07/01/18 12:00 96.8 110 28 104/68 (80) 95 07/01/18 11:46 96 07/01/18 08:02 81 07/01/18 08:00 Venturi Mask 12.0 07/01/18 08:00 97.8 85 32 101/79 (86) 93 07/01/18 04:00 Venturi Mask 12.0 07/01/18 04:00 97.7 67 32 115/58 (77) 97 07/01/18 03:20 71 07/01/18 00:00 Venturi Mask 12.0 07/01/18 00:00 98.0 96 32 120/66 (84) 95 06/30/18 23:24 73 06/30/18 21:55 81 20 Venturi Mask 12.0 50 06/30/18 21:55 Venturi Mask 12.0 50 06/30/18 21:55 100 Venturi Mask 12.0 50 06/30/18 20:00 98.6 72 32 104/63 (77) 100 06/30/18 20:00 Venturi Mask 12.0 06/30/18 19:29 66 Intake and Output 06/30/18 07/01/18 19:00 07:00 Intake Total 775 ml 925 ml Output Total 300 ml 350 ml Balance 475 ml 575 ml IV Total 675 ml 825 ml Other 100 ml 100 ml Output Urine Total 300 ml 350 ml # Voids 2 Laboratory Tests 07/01/18 05:24: White Blood Count 7.0, Red Blood Count 2.03L, Hemoglobin 5.9#*L, Hematocrit 18.9 #L, Mean Corpuscular Volume 93, Mean Corpuscular Hemoglobin 29.1, Mean Corpuscular Hemoglobin Concent 31.2L, Red Cell Distribution Width 15.4H, Platelet Count 30L, Mean Platelet Volume 13.2H, Neutrophils (%) (Auto) , Lymphocytes (%) (Auto) , Monocytes (%) (Auto) , Eosinophils (%) (Auto) , Basophils (%) (Auto) , Differential Total Cells Counted 100, Neutrophils % ( Manual) 80H, Lymphocytes % (Manual) 9L, Monocytes % (Manual) 3, Eosinophils % ( Manual) 0, Basophils % (Manual) 0, Band Neutrophils 8, Platelet Estimate DecreasedL, Platelet Morphology Normal, Hypochromasia 2+, Anisocytosis 2+, Prothrombin Time 15.4H, Prothromb Time International Ratio 1.5H, Activated Partial Thromboplast Time 39H, Fibrinogen 192L, Sodium Level 146H, Potassium Level 3.7, Chloride Level 120H, Carbon Dioxide Level 13L, Anion Gap 13, Blood Urea Nitrogen 30H, Creatinine 0.7, Estimat Glomerular Filtration Rate , Glucose Level 104, Calcium Level 6.6L, Iron Level 49L, Total Iron Binding Capacity 62L, Percent Iron Saturation 79H, Unsaturated Iron Binding 13L, Total Bilirubin 1.9H , Direct Bilirubin 1.2H, Aspartate Amino Transf (AST/SGOT) 28, Alanine Aminotransferase (ALT/SGPT) 46, Alkaline Phosphatase 91, Lactate Dehydrogenase 206, Total Creatine Kinase 92, C-Reactive Protein, Quantitative 8.9H, Total Protein 4.2L, Albumin 1.1L 07/01/18 07:45: White Blood Count 11.8#H, Red Blood Count 3.22L, Hemoglobin 9.3#L, Hematocrit 29.0#L, Mean Corpuscular Volume 90, Mean Corpuscular Hemoglobin 28.8, Mean Corpuscular Hemoglobin Concent 32.0, Red Cell Distribution Width 15.1H, Platelet Count 34L, Mean Platelet Volume 11.8H, Neutrophils (%) (Auto) , Lymphocytes (%) (Auto) , Monocytes (%) (Auto) , Eosinophils (%) (Auto) , Basophils (%) (Auto) , Differential Total Cells Counted 100, Neutrophils % ( Manual) 85H, Lymphocytes % (Manual) 4L, Monocytes % (Manual) 6, Eosinophils % ( Manual) 1, Basophils % (Manual) 0, Band Neutrophils 4, Platelet Estimate DecreasedL, Platelet Morphology Normal, Hypochromasia 1+, Anisocytosis 1+, Erythrocyte Sedimentation Rate 35H, Haptoglobin [Pending], Heparin-PF4 Antibody Screen [Pending], Hepatitis A IgM Antibody [Pending], Hepatitis B Surface Antigen [Pending], Hepatitis B Core IgM Antibody [Pending], Hepatitis C Antibody [Pending] Height (Feet): 5 Height (Inches): 5.00 Weight (Pounds): 144 Objective GENERAL: Awake responsive to deep stimuli with opening of her eyes, in no apparent distress. HEENT: Eyes, pupils equal responsive to light and accommodation. CHEST: Poor inspiratory effort, decreased air in the bases no wheezes or rhonchi was appreciated CARDIOVASCULAR: Regular rhythm and rate. S1 and S2 are normal without murmurs or gallops. ABDOMEN: Soft, nontender, and nondistended. Positive bowel sounds. No rebounding or guarding noted. EXTREMITIES: Negative for clubbing, cyanosis, or edema, muscle atrophy in bilateral lower extremity RECTAL/GENITAL: Not performed. NEUROLOGIC: Less responsive, unable to follow commands, however open her eyes with a deep stimulation, unable to evaluate for gait due to the patient's status. Kadeem Bennett MD Jul 01, 2018 16:54
--- NOTE | 2018-07-01 17:04 | Surgery Progress Note ---
Surgery Progress Note Subjective Additional Comments no acute events. Objective Last 24 Hour Vital Signs Date Time Temp Pulse Resp B/P (MAP) Pulse Ox O2 Delivery O2 Flow Rate FiO2 07/01/18 12:00 Venturi Mask 12.0 07/01/18 12:00 96.8 110 28 104/68 (80) 95 07/01/18 11:46 96 07/01/18 08:02 81 07/01/18 08:00 Venturi Mask 12.0 07/01/18 08:00 97.8 85 32 101/79 (86) 93 07/01/18 04:00 Venturi Mask 12.0 07/01/18 04:00 97.7 67 32 115/58 (77) 97 07/01/18 03:20 71 07/01/18 00:00 Venturi Mask 12.0 07/01/18 00:00 98.0 96 32 120/66 (84) 95 06/30/18 23:24 73 06/30/18 21:55 81 20 Venturi Mask 12.0 50 06/30/18 21:55 Venturi Mask 12.0 50 06/30/18 21:55 100 Venturi Mask 12.0 50 06/30/18 20:00 98.6 72 32 104/63 (77) 100 06/30/18 20:00 Venturi Mask 12.0 06/30/18 19:29 66 I&O Intake and Output 06/30/18 07/01/18 19:00 07:00 Intake Total 775 ml 925 ml Output Total 300 ml 350 ml Balance 475 ml 575 ml IV Total 675 ml 825 ml Other 100 ml 100 ml Output Urine Total 300 ml 350 ml # Voids 2 Dressing: other Wound: other Drains: other Cardiovascular: RSR Respiratory: clear Abdomen: soft, non-distended Extremities: other Laboratory Tests Test 07/01/18 05:24 07/01/18 07:45 White Blood Count 7.0 K/UL (4.8-10.8) 11.8 K/UL (4.8-10.8) #H Red Blood Count 2.03 M/UL (4.20-5.40) L 3.22 M/UL (4.20-5.40) L Hemoglobin 5.9 G/DL (12.0-16.0) 9.3 G/DL (12.0-16.0) #L Hematocrit 18.9 % (37.0-47.0) #L 29.0 % (37.0-47.0) #L Mean Corpuscular Volume 93 FL (80-99) 90 FL (80-99) Mean Corpuscular Hemoglobin 29.1 PG (27.0-31.0) 28.8 PG (27.0-31.0) Mean Corpuscular Hemoglobin Concent 31.2 G/DL (32.0-36.0) L 32.0 G/DL (32.0-36.0) Red Cell Distribution Width 15.4 % (11.6-14.8) H 15.1 % (11.6-14.8) H Platelet Count 30 K/UL (150-450) L 34 K/UL (150-450) L Mean Platelet Volume 13.2 FL (6.5-10.1) H 11.8 FL (6.5-10.1) H Neutrophils (%) (Auto) % (45.0-75.0) % (45.0-75.0) Lymphocytes (%) (Auto) % (20.0-45.0) % (20.0-45.0) Monocytes (%) (Auto) % (1.0-10.0) % (1.0-10.0) Eosinophils (%) (Auto) % (0.0-3.0) % (0.0-3.0) Basophils (%) (Auto) % (0.0-2.0) % (0.0-2.0) Differential Total Cells Counted 100 100 Neutrophils % (Manual) 80 % (45-75) H 85 % (45-75) H Lymphocytes % (Manual) 9 % (20-45) L 4 % (20-45) L Monocytes % (Manual) 3 % (1-10) 6 % (1-10) Eosinophils % (Manual) 0 % (0-3) 1 % (0-3) Basophils % (Manual) 0 % (0-2) 0 % (0-2) Band Neutrophils 8 % (0-8) 4 % (0-8) Platelet Estimate Decreased L Decreased L Platelet Morphology Normal Normal Hypochromasia 2+ 1+ Anisocytosis 2+ 1+ Prothrombin Time 15.4 SEC (9.30-11.50) H Prothromb Time International Ratio 1.5 (0.9-1.1) H Activated Partial Thromboplast Time 39 SEC (23-33) H Fibrinogen 192 mg/dL (200-400) L Sodium Level 146 MMOL/L (136-145) H Potassium Level 3.7 MMOL/L (3.5-5.1) Chloride Level 120 MMOL/L (98-107) H Carbon Dioxide Level 13 MMOL/L (21-32) L Anion Gap 13 mmol/L (5-15) Blood Urea Nitrogen 30 mg/dL (7-18) H Creatinine 0.7 MG/DL (0.55-1.30) Estimat Glomerular Filtration Rate mL/min (>60) Glucose Level 104 MG/DL (74-106) Calcium Level 6.6 MG/DL (8.5-10.1) L Iron Level 49 ug/dL (50-175) L Total Iron Binding Capacity 62 ug/dL (250-450) L Percent Iron Saturation 79 % (15-50) H Unsaturated Iron Binding 13 ug/dL (112-346) L Total Bilirubin 1.9 MG/DL (0.2-1.0) H Direct Bilirubin 1.2 MG/DL (0.0-0.3) H Aspartate Amino Transf (AST/SGOT) 28 U/L (15-37) Alanine Aminotransferase (ALT/SGPT) 46 U/L (12-78) Alkaline Phosphatase 91 U/L (46-116) Lactate Dehydrogenase 206 U/L (81-234) Total Creatine Kinase 92 U/L (26-308) C-Reactive Protein, Quantitative 8.9 mg/dL (0.00-0.90) H Total Protein 4.2 G/DL (6.4-8.2) L Albumin 1.1 G/DL (3.4-5.0) L Erythrocyte Sedimentation Rate 35 MM/HR (0-30) H Haptoglobin Pending Heparin-PF4 Antibody Screen Pending Hepatitis A IgM Antibody Pending Hepatitis B Surface Antigen Pending Hepatitis B Core IgM Antibody Pending Hepatitis C Antibody Pending Plan Problems: (1) Sepsis Assessment & Plan: Leukocytosis resolved LFT's elevated w/ t bili / d bili - improved AM labs ordered hydrate US Impression: Limited exam, as described. Note inability to visualize the spleen Negative for gallstones or dilated bile ducts Questionable bilateral renal parapelvic cysts Small to moderate right pleural effusion no acute surgical intervention planned. will follow with recs. (2) Sacral decubitus ulcer, stage III Assessment & Plan: DTPI sacrum.Maroon- indurated discoloration with opening at sacral coccygeal area(L)3.8cm x (W)1.4cm with entire wound measuring (L)10cmx(W) 12cm.Small amt malodorous brown exudate. Stable dry eschar R heel with dry peeling skin periwound (L)2cm x (W)3.5cm. Periwound is also red and boggy. Small dry eschar noted to lateral R 5th metatarsal (L)1.4cm x (W)0.3cm. L heel is boggy but colour is dusky . Resolving skin tear lateral R tibia. Wound bed is clean and dry. Tx. Plan: Cleanse Sacral wound with Saline.Apply Therahoney to opening at sacrococcygeal area.Cavilon skin barrier to DTPI. Cover with Optifoam drsg .Change Daily and prn. Apply Betadine to R heel and Lateral R 5th metatarsal.Cover with Abd pad .Wrap with kerlix daily and prn. Apply Cavilon Skin Barrier to L heel.Cover with Optifoam drsg .Change every 7 days and prn. Reposition at least every 2hours or as tolerated. Off-load heels with pillow. (3) Rectal bleed (4) Protein-calorie malnutrition, severe (5) Dehydration Sher Younger Jul 01, 2018 17:04
--- NOTE | 2018-07-01 17:12 | Diagnostic Imaging Report ---
CLINICAL INDICATION:Abdominal pain, chest pain, persistent MRSA bacteremia TECHNIQUE: Patient given enteric contrast IV administration nonionic contrast multiphasic spiral acquisitions obtained through the chest, abdomen, and pelvis. Multiplanar reconstructions were generated. Total dose length product 2250.17 mGycm. CTDIvol(s) 24.46,23.8 mGy. Radiation dose was minimized using automated exposure control COMPARISON: Reference made to CT pelvis exam 02/16/2018, CT abdomen and pelvis 08/27/2017, recent sonogram 06/28/2018. No comparison chest CTs FINDINGS: There is anasarca, with diffuse edema of the subcutaneous, abdominal, and pelvic and mediastinal fat, as well as pleural fluid and ascites Chest: There is a large right pleural effusion, occupying approximately 40% of the right hemithorax. There is resultant compressive atelectasis of the majority of the right lower lobe. Reticular and groundglass opacity is seen in the right upper lobe. Multiple cavitary masses are seen bilaterally. These demonstrate intermediate wall thickness. The largest on the right is in the upper lobe and measures 2.5 cm in diameter. Largest on the left is in the upper lobe, measures 2.8 cm long axis dimension. There is a vfzzp-ri-[id number] left pleural effusion. This results in compressive atelectasis of portions of the left lower lobe. Reticular interstitial opacities are seen in the inferior left lower lobe. A noncavitary 9 mm nodule is seen in the mid left upper lobe. Other noncavitary nodules are seen scattered within the right middle lobe. The right and left main pulmonary arteries are ectatic but not frankly dilated. Descending thoracic aortic is mildly ectatic but not aneurysmal. There is a moderate size hiatal hernia. There is a nasogastric tube in place. A small amount of debris is seen in the posterior tracheal lumen. The heart is mildly enlarged. There is our bilateral pacemakers. There is evidence of narrowing of the bilateral innominate veins. Right arm midline is seen, tip terminating in the right axillary vein. No pericardial effusion. No mediastinal or hilar mass or adenopathy. The visualized portion of the thyroid is demonstrates a questionable subcentimeter low-attenuation lesion in the left lower pole. No mediastinal or hilar mass or adenopathy. No axillary or chest wall mass or adenopathy. The bones demonstrate compression fracture deformities of the T6 and T9 vertebral bodies; the T9 lesion was demonstrated on the prior 08/27/[address] The T6 lesion is age indeterminate although suspect old. Abdomen pelvis: The appendix is not definitely identified. However, no findings to suggest acute appendicitis are identified. Contrast is seen throughout the entirety of the small bowel and is far distally as ileocecal valve. The nasogastric tube tip terminates in the gastric antrum. The stomach and duodenum are otherwise unremarkable. There is a small amount of free intraperitoneal fluid demonstrated. No small bowel wall thickening. The prior exam demonstrated diverticulosis. This is less evident on the current exam, probably due to the surrounding anasarca. The presence of generalized edema makes diverticulitis and possible to exclude. There is mild distention of the rectal wall by feces. The liver, gallbladder, bile ducts, pancreas are all unremarkable. The spleen demonstrates a wedge-shaped area of low-attenuation in the upper pole. This is not evident on the prior CT abdomen and pelvis. The kidneys again demonstrate bilateral parapelvic cysts and subcentimeter low attenuation parenchymal lesions. No renal or ureteral calculi or hydronephrosis. The uterus and adnexal structures are unremarkable. The bladder is largely obscured by a right hip prosthesis causing streak artifact. The right hip prosthesis is a new finding since previous exams. There is a healed fracture deformity of the left superior and inferior pubic rami, demonstrated on prior pelvis CT of 02/16/2018 as well as an acute hip fracture some heterotopic ossification surrounds the prosthesis. Again demonstrated is bilateral L4 spondylolysis, L4 on L5 spondylolisthesis, and secondary degenerative change of the L4-5 disc. IMPRESSION: Interim development of multiple bilateral mostly upper lobe cavitary pulmonary parenchymal lesions. Given normal appearing chest radiograph on 06/24/2018, these are overwhelmingly likely infectious/inflammatory in nature. Most likely represent septic pulmonary emboli. The possibility of mycobacterial infection should also be included, deemed less likely given absence of adenopathy but still possible. Differential considerations also include fungal infections, noninfectious inflammatory processes. This finding was discussed by phone with Dr. Mancera at the time of interpretation Other noncavitary nodules are also demonstrated, with the same differential Large right and ihmog-ko-noglwspd left pleural effusions Compressive atelectasis of the majority of the right lower lobe. Infiltrates seen in the right upper lobe Anasarca, with, in addition to the above mentioned pleural fluid, ascites and generalized severe edema of the subcutaneous, mediastinal, abdominal and pelvic fat Ectatic but not frankly dilated bilateral pulmonary arteries, there is possibly pulmonary arterial hypertension Mild cardiomegaly Bilateral pacemaker. Evidence of central venoocclusive disease Questional subcentimeter low-attenuation left lower pole thyroid nodule. No further follow-up necessary T6 and T9 vertebral body compression fractures. T6 lesion is age-indeterminate, T9 vertebral lesion is old Wedge-shaped area of low-attenuation in the upper pole of the spleen, suspicious for infarct Postsurgical changes of the right hip. Healed fracture deformity of the left superior and inferior pubic rami Bilateral L4 spondylolysis, L4 on L5 spondylolisthesis, secondary degenerative changes of the L5 disc. Diverticulosis, better evident previously Minimal rectal distention by feces, early fecal impaction possible Other findings as noted, including bilateral renal parapelvic cysts and probable cortical cysts, hiatal hernia, nasogastric tube, bilateral pacemakers, right arm midline The CT scanner at [facility] is accredited by the [place] [employer] and the scans are performed using protocols designed to limit radiation exposure to as low as reasonably achievable to attain images of sufficient resolution adequate for diagnostic evaluation.
[2018-07-01] MEDS: DAPTOmycin 400 MG in NS 55 ML IV SCH (17:41)
--- NOTE | 2018-07-01 19:05 | NUR ---
HAND-OFF: Report given to SOILA Dias.
--- NOTE | 2018-07-01 19:06 | NUR ---
NURSE NOTES: Received patient from SOILA VARGAS. Patient is awake and resting comfortably in bed. Alert and oriented x2. Lithuanian speaking only. Family member call and spoked with patient via telephone. Patient shows no signs and symptoms of pain and/or distress. Will continue plan of care.
--- NOTE | 2018-07-01 19:29 | Internal Med Progress Note ---
Subjective Date of Service: Jul 01, 2018 Physician Name Aquilino Matthews Attending Physician Carlos Alberto Berkowitz MD Current Medications Medications (Trade) Dose Ordered Sig/Yi Route PRN Reason Start Time Stop Time Status Last Admin Dose Admin Acetaminophen (Tylenol) 650 mg Q4H PRN NG Mild Pain/Temp > 100.5 06/29/18 18:15 07/29/18 18:14 Chlorhexidine Gluconate (Mirtha-Hex 2%) 1 applic DAILY@2000 TOPIC 06/29/18 20:00 07/29/18 19:59 06/30/18 20:42 Clonidine HCl (Catapres Tab) 0.1 mg Q8H PRN ORAL SBP>160mmHg 06/28/18 06:30 07/25/18 06:29 Daptomycin 400 mg/ Sodium Chloride 55 ml @ 100 mls/hr Q24H IV 06/30/18 18:00 07/07/18 17:59 07/01/18 17:41 Dextrose (Dextrose 50%) 25 ml Q30M PRN IV Hypoglycemia 06/28/18 06:15 07/24/18 13:30 Dextrose (Dextrose 50%) 50 ml Q30M PRN IV hypoglycemia 06/28/18 06:15 07/24/18 13:44 Dextrose/Sodium Chloride 1,000 ml @ 50 mls/hr Q20H IV 06/29/18 11:30 07/29/18 11:29 07/01/18 03:30 Insulin Aspart (NovoLOG) EVERY 6 HOURS SUBQ 06/28/18 12:00 07/24/18 16:29 06/29/18 12:22 Lorazepam (Ativan) 1 mg Q6H PRN ORAL For Anxiety 06/28/18 07:00 07/02/18 12:52 Morphine Sulfate (Morphine Sulfate) 2 mg Q4H PRN IVP Moderate Pain (Pain Scale 4-6) 06/28/18 09:00 07/02/18 12:52 06/29/18 22:01 Olanzapine (ZyPREXA) 2.5 mg BID ORAL 06/28/18 09:00 07/25/18 10:59 07/01/18 17:41 Ondansetron HCl (Zofran) 4 mg Q6H PRN IVP Nausea & Vomiting 06/28/18 07:00 07/25/18 12:52 Pantoprazole 80 mg/Sodium Chloride 250 ml @ 25 mls/hr Q10H IV 06/30/18 15:00 07/30/18 14:59 07/01/18 10:15 Temazepam (Restoril) 15 mg HSPRN PRN ORAL Insomnia 06/28/18 21:00 07/01/18 20:59 06/30/18 01:10 Allergies: Coded Allergies: No Known Allergies (Unverified , 08/10/13) ROS Limited/Unobtainable: Yes Subjective 82 YO F admitted with dehydration and hypoxia. Now sepsis. Cover for Int Med- Dr Berkowitz. MATTI. Continues on venturi mask Objective Last Vital Signs Date Time Temp Pulse Resp B/P (MAP) Pulse Ox O2 Delivery O2 Flow Rate FiO2 07/01/18 18:00 Venturi Mask 12.0 07/01/18 16:00 97.5 77 20 102/60 (74) 95 06/30/18 21:55 50 Laboratory Tests Test 07/01/18 05:24 07/01/18 07:45 White Blood Count 7.0 K/UL (4.8-10.8) 11.8 K/UL (4.8-10.8) #H Red Blood Count 2.03 M/UL (4.20-5.40) L 3.22 M/UL (4.20-5.40) L Hemoglobin 5.9 G/DL (12.0-16.0) 9.3 G/DL (12.0-16.0) #L Hematocrit 18.9 % (37.0-47.0) #L 29.0 % (37.0-47.0) #L Mean Corpuscular Volume 93 FL (80-99) 90 FL (80-99) Mean Corpuscular Hemoglobin 29.1 PG (27.0-31.0) 28.8 PG (27.0-31.0) Mean Corpuscular Hemoglobin Concent 31.2 G/DL (32.0-36.0) L 32.0 G/DL (32.0-36.0) Red Cell Distribution Width 15.4 % (11.6-14.8) H 15.1 % (11.6-14.8) H Platelet Count 30 K/UL (150-450) L 34 K/UL (150-450) L Mean Platelet Volume 13.2 FL (6.5-10.1) H 11.8 FL (6.5-10.1) H Neutrophils (%) (Auto) % (45.0-75.0) % (45.0-75.0) Lymphocytes (%) (Auto) % (20.0-45.0) % (20.0-45.0) Monocytes (%) (Auto) % (1.0-10.0) % (1.0-10.0) Eosinophils (%) (Auto) % (0.0-3.0) % (0.0-3.0) Basophils (%) (Auto) % (0.0-2.0) % (0.0-2.0) Differential Total Cells Counted 100 100 Neutrophils % (Manual) 80 % (45-75) H 85 % (45-75) H Lymphocytes % (Manual) 9 % (20-45) L 4 % (20-45) L Monocytes % (Manual) 3 % (1-10) 6 % (1-10) Eosinophils % (Manual) 0 % (0-3) 1 % (0-3) Basophils % (Manual) 0 % (0-2) 0 % (0-2) Band Neutrophils 8 % (0-8) 4 % (0-8) Platelet Estimate Decreased L Decreased L Platelet Morphology Normal Normal Hypochromasia 2+ 1+ Anisocytosis 2+ 1+ Prothrombin Time 15.4 SEC (9.30-11.50) H Prothromb Time International Ratio 1.5 (0.9-1.1) H Activated Partial Thromboplast Time 39 SEC (23-33) H Fibrinogen 192 mg/dL (200-400) L Sodium Level 146 MMOL/L (136-145) H Potassium Level 3.7 MMOL/L (3.5-5.1) Chloride Level 120 MMOL/L (98-107) H Carbon Dioxide Level 13 MMOL/L (21-32) L Anion Gap 13 mmol/L (5-15) Blood Urea Nitrogen 30 mg/dL (7-18) H Creatinine 0.7 MG/DL (0.55-1.30) Estimat Glomerular Filtration Rate mL/min (>60) Glucose Level 104 MG/DL (74-106) Calcium Level 6.6 MG/DL (8.5-10.1) L Iron Level 49 ug/dL (50-175) L Total Iron Binding Capacity 62 ug/dL (250-450) L Percent Iron Saturation 79 % (15-50) H Unsaturated Iron Binding 13 ug/dL (112-346) L Total Bilirubin 1.9 MG/DL (0.2-1.0) H Direct Bilirubin 1.2 MG/DL (0.0-0.3) H Aspartate Amino Transf (AST/SGOT) 28 U/L (15-37) Alanine Aminotransferase (ALT/SGPT) 46 U/L (12-78) Alkaline Phosphatase 91 U/L (46-116) Lactate Dehydrogenase 206 U/L (81-234) Total Creatine Kinase 92 U/L (26-308) C-Reactive Protein, Quantitative 8.9 mg/dL (0.00-0.90) H Total Protein 4.2 G/DL (6.4-8.2) L Albumin 1.1 G/DL (3.4-5.0) L Erythrocyte Sedimentation Rate 35 MM/HR (0-30) H Haptoglobin Pending Heparin-PF4 Antibody Screen Pending Hepatitis A IgM Antibody Pending Hepatitis B Surface Antigen Pending Hepatitis B Core IgM Antibody Pending Hepatitis C Antibody Pending Microbiology Date/Time Source Procedure Growth Status 06/29/18 18:15 Blood Blood Culture - Final Staphylococcus Aureus - Mrsa Complete 06/29/18 18:00 Blood Blood Culture - Final Staphylococcus Aureus - Mrsa Complete Intake and Output 06/30/18 07/01/18 19:00 07:00 Intake Total 775 ml 925 ml Output Total 300 ml 350 ml Balance 475 ml 575 ml IV Total 675 ml 825 ml Other 100 ml 100 ml Output Urine Total 300 ml 350 ml # Voids 2 Objective Objective General: No acute distress, awake and less responsive, Sleepy, cachectic. HEENT: NCAT, sclera anicteric, PERRL, NG tube. Neck: Supple, no significant jugular venous distention, Lungs: Non-rebreather mask; Poor inspiratory effort, decreased air in the bases , Bilateral Wheeze and Rales. Heart: Regular rate and rhythm, normal S1/S2, no murmur. Abdomen: soft, nontender, nondistended. Normoactive bowel sounds. / Rectal: Refused and deferred. Extremities: No Cyanosis , No clubbing, Left UE edema. Lateral lower extremity / feet dressing intact. Neuro: A&O x 1, Able to move all extremities Skin: warm, no rashes or lesions, ecchymosis in bilateral upper extremity noted. Assessment/Plan Assessment/Plan Assessment/Plan Assessment/Plan 1. Sepsis / METHACILLIN RESISTANT STAPHYLOCOCCUS AUREUS bacteremia, lactic acidosis. 2. Failure to thrive with severe protein calorie malnutrition. 3. Coronary artery disease. 4. Diabetes, type 2. 5. Hypertension. 6. Sick sinus syndrome. 7. Hypercholesterolemia. 8. Aortic stenosis. 9. Pulmonary hypertension. 10. Alzheimer dementia. 11. Acute tubular necrosis/acute kidney injury most likely secondary to dehydration and sepsis. 12. Sacral decubitus ulcer, stage III 13. Severe dehydration 14. Hypokalemia. 15. Abnormal liver function test 16. Anemia/thrombocytopenia 17. Bilateral pneumonia ?septic emboli? TREATMENT: 1. Patient on broad spectrum antibiotics with vancomycin and Zosyn IV. Will require transesophageal echocardiogram to R/O endocarditis-see ID note 2. Coronary artery disease. The patient is status post coronary artery bypass graft in 2017. 3. Diabetes, type 2. The patient has been started on NovoLog sliding scale. 4. Hypertension. The patient is to continue on atenolol and losartan as above. 5. Sick sinus syndrome. The patient is status post pacemaker implantation. 6. Hypercholesterolemia. Continue simvastatin as above. 7. Aortic stenosis. 8. Pulmonary hypertension. 9. Alzheimer dementia. 10. Anemia/thrombocytopenia-S/P 1 unit PRBC on 06/28/18. Heme/Onc consult. Hold heparin 11. Septic pulmonary emboli-await NELDA-see cardiology note. Restart tube feeding at rate of 45 cc/hr. CODE STATUS is full code as per [facility]LET DVT prophylaxis: D/C Heparin subcu due to thrombocytopenia Aquilino Matthews MD Jul 01, 2018 19:29
[2018-07-01 20:00] VITALS: BP 94/72
--- NOTE | 2018-07-01 22:00 | Consultation ---
DATE OF CONSULTATION: 06/30/2018 CARDIOLOGY CONSULTATION CONSULTING PHYSICIAN: Ede Newman M.D. REFERRING PHYSICIAN: Dr. Aquilino Matthews. REASON FOR CONSULTATION: Management of possible infective endocarditis in the patient with high-grade persistent bacteremia with MRSA. PAST MEDICAL HISTORY: The patient is a very unfortunate 82-year-old lady who is a resident of a nursing facility, who was brought in to this facility on 06/24/2018 with decreased oral intake, general malaise. The patient is nonverbal. Initial evaluation in the emergency department revealed low-grade fever, temperature of 99.5 degrees Fahrenheit. Her blood pressure was 100/64 mmHg and heart rate of 68. Initially, in the emergency department, white blood cells elevated at 14.6 with left shift and presence of a bandemia. The patient also had renal failure with BUN and creatinine of 47 and 1.5 respectively. A troponin I was slightly elevated at 0.131. Initial 12-lead electrocardiogram in the emergency department revealed sinus rhythm, heart rate of 90 with left axis deviation, nonspecific intraventricular conduction delay, possible lateral wall infarct, and age indeterminate. The patient was admitted to the hospital and underwent a workup of sepsis, which showed presence of MRSA in the blood. Cardiology consultation at request of Dr. Matthews for transesophageal echocardiography, which was recommended by Infectious Disease specialist in face of high suspicion for infective endocarditis. PAST MEDICAL HISTORY: 1. Hypertension. 2. Coronary artery disease, status post coronary artery bypass graft surgery. 3. History of asthma. 4. History of diabetes mellitus, type 2. 5. History of dementia. 6. History of schizophrenia. PAST SURGICAL HISTORY: Including coronary artery bypass graft surgery as well as the permanent pacemaker implantation. FAMILY HISTORY: No premature coronary artery disease or arrhythmogenic in first-degree relatives. ALLERGIES: No known drug allergies. SOCIAL HISTORY: No current history of tobacco, alcohol, or illicit drug use. REVIEW OF SYSTEMS: HEENT: Denies any headache, diplopia, or blurred vision. CONSTITUTIONAL: Generalized weakness and malaise, but no fever, chills, or night sweats. CARDIOVASCULAR: Denies any chest pain, shortness breath, PND, orthopnea, or leg swelling. PULMONARY: Denies any cough, hemoptysis, or wheezing. GASTROINTESTINAL: Denies any nausea, vomiting, diarrhea, constipation, abdominal pain, or GI bleed. GENITOURINARY: Denies any hematuria, dysuria, or incontinence. NEUROLOGIC: Denies any motor dysfunction, sensory deficit, or altered speech. MEDICATIONS: List of medications at the nursing facility includes apixaban 5 mg p.o. twice daily, ascorbic acid 500 mg daily, aspirin 81 mg daily, Tenormin 50 mg p.o. twice daily, atorvastatin 20 mg p.o. at bedtime, vitamin D 2000 units daily, Klonopin 0.5 mg q.6 h., Catapres 0.1 mg q.8 h., clopidogrel 75 mg p.o. daily, dicyclomine 10 mg p.o. q.i.d., Pepcid 20 mg p.o. at bedtime, Lasix 40 mg p.o. daily, Haldol 0.5 mg IM q.6 h. p.r.n. agitation, [place] 5/325 one tablet q.6 h. p.r.n. pain, lorazepam 2 mg p.o. three times a day p.r.n. anxiety, losartan 25 mg p.o. daily, metformin 500 mg twice daily, mirtazapine 50 mg p.o. nightly, potassium chloride 10 mEq p.o. daily, rosuvastatin 10 mg p.o. at bedtime, Janumet mg one tablet daily, trazodone 50 mg p.o. nightly, vancomycin 1000 mg IV daily, vitamin D3 5000 unit daily, and zinc sulfate 220 mg p.o. daily. PHYSICAL EXAMINATION: VITAL SIGNS: At the time of my evaluation, blood pressure was 141/93, pulse of 99, temperature of 98.5 degrees Fahrenheit, and O2 saturation of 95% on Venturi mask, and respiratory of 22. GENERAL: The patient is a very unfortunate 82-year-old lady, somewhat confused and agitated. HEENT: Atraumatic and normocephalic. Anicteric. Pupils are equal, round, and reactive to light and accommodation. Extraocular muscles intact. NECK: JVP less than 5 cm. No carotid bruit. Carotid upstrokes 2+ bilaterally. CARDIOVASCULAR: Normal S1, S2. Regular rate and rhythm. No murmurs, gallops, or rubs. PMI is at fourth intercostal space at the midclavicular line. LUNGS: Clear to auscultation bilaterally. ABDOMEN: Soft, nontender, and nondistended. No hepatosplenomegaly. Positive bowel sounds. EXTREMITIES: Soft left elbow edema and some decubitus ulceration on the lower back. LABORATORY FINDINGS: Blood test from 06/30/2018, WBC 8.1, hemoglobin 8.7, hematocrit of 37.3, and platelet count of 36,000. Sodium 142, potassium is 3.5, chloride 113, bicarbonate 19, BUN of 31, creatinine 0.9, glucose 98, calcium is 7.8, and magnesium is 1.3. AST is 163 and ALT is 78. A 2D echocardiography done on 06/27/2018 global left ventricular hypokinesia with septal wall dyskinesia (left ventricular ejection fraction approximately 20 to 25%), biatrial enlargement, evidence of her right ventricular volume and pressure overload, grade 1 LV diastolic dysfunction, and severe pulmonary hypertension with right ventricular systolic pressure measured at 77 mmHg. Chest x-ray obtained from 06/27/2018 shows two pacemaker system with a right middle lobe and lower lobe infiltration, highly suggestive of aspiration pneumonia. ASSESSMENT AND PLAN: The patient is a very unfortunate 82-year-old female, seen in Cardiology consultation at request of Dr. Matthews. 1. MRSA bacteremia. The patient is being evaluated for obtaining consent for transesophageal echocardiography. The patient is considered to be high-risk and given severe LV systolic dysfunction with LVEF of approximately 20% as well as evidence of [id number] myocardial infarction type 2. Given elevation of troponin I level at the time of arrival to the ER. We discussed with the primary care physician as well as Infectious Disease to figure if the patient has management with antibiotic would be different if TE ruled in infective endocarditis now. In the meantime, we will continue with IV antibiotics, recommended by Infectious Disease. Of note, 2D echocardiography, which is a good study with good acoustic windows does not reveal any vegetative mass in the aortic or mitral leaflets. 2. Severe left ventricular systolic dysfunction with most likely ischemic cardiomyopathy in view of history of coronary artery disease and coronary artery bypass graft surgery. Given comorbidities. The patient is not considered to be a candidate for ischemic workup or any invasive procedure. 3. Slight elevation of troponin I level consistent with [id number] myocardial infarction, type 2 with demand ischemia. The patient will require to be on aspirin, statins, and beta-blockers. 4. Severe pulmonary hypertension with right ventricular systolic pressure measured at 77 mmHg. I would like to thank, Dr. Matthews, for courtesy of this consultation. Ede Newman M.D. DR: ARNOL JOB#: [id number] CC:
[2018-07-02] VITALS: BP 109/62
[2018-07-02 04:00] VITALS: BP 110/43
[2018-07-02] MEDS: NovoLOG Insulin Flexpen SUBQ SCH ×3 (05:18→19:56)
[2018-07-02 06:10] LABS: HEMATOCRIT 24.3 % (37.0-47.0); HEMOGLOBIN 7.9 G/DL (12.0-16.0); MEAN CORPUSCULAR VOLUME 90 FL (80-99); PLATELET COUNT 44 K/UL (150-450); WHITE BLOOD COUNT 12.3 K/UL (4.8-10.8)
[2018-07-02 06:30] LABS: INR 1.3 (0.9-1.1)
[2018-07-02 06:32] LABS: PHOSPHORUS 4.4 MG/DL (2.5-4.9)
[2018-07-02 06:50] LABS: ALANINE AMINOTRANSFERASE 35 U/L (12-78); ALBUMIN 1.3 G/DL (3.4-5.0); ALBUMIN/GLOBULIN RATIO 0.4 (1.0-2.7); ALKALINE PHOSPHATASE 76 U/L (46-116); ANION GAP 14 mmol/L (5-15); ASPARTATE AMINO TRANSFERASE 21 U/L (15-37); BILIRUBIN,TOTAL 1.5 MG/DL (0.2-1.0); BLOOD UREA NITROGEN 35 mg/dL (7-18); CALCIUM 7.1 MG/DL (8.5-10.1); CARBON DIOXIDE 17 MMOL/L (21-32); CHLORIDE 113 MMOL/L (98-107); POTASSIUM 3.6 MMOL/L (3.5-5.1); SODIUM 144 MMOL/L (136-145)
[2018-07-02] MEDS: Pantoprazole 80 MG in NS 250 ML IV SCH (07:00)
--- NOTE | 2018-07-02 07:04 | NUR ---
HAND-OFF: Report given to SOILA VARGAS.
--- NOTE | 2018-07-02 07:05 | NUR ---
NURSE NOTES: Received patient from SOILA Dias. Patient in bed and asleep. On venturi mask 50% 12L. Currently NPO. Scheduled for EGD today. campus monitor in placed. IV sites and CHRISTIAN midline are asymptomatic. Bed in lowest position with side rails up. Will continue to follow plan of care.
[2018-07-02 08:00] VITALS: BP 109/47
[2018-07-02] MEDS: OLANZapine 2.5mg tab ORAL SCH ×2 (08:17→19:03)
--- NOTE | 2018-07-02 10:01 | General Progress Note ---
Assessment/Plan Problem List: (1) Severe anemia ICD Codes: D64.9 - Anemia, unspecified SNOMED: 501046709 (2) Alzheimer's dementia ICD Codes: G30.9 - Alzheimer's disease, unspecified; F02.80 - Dementia in other diseases classified elsewhere without behavioral disturbance SNOMED: 39998747 (3) Pulmonary hypertension ICD Codes: I27.20 - Pulmonary hypertension, unspecified SNOMED: 72351721 (4) Protein-calorie malnutrition, severe ICD Codes: E43 - Unspecified severe protein-calorie malnutrition SNOMED: 149329476 (5) Pacemaker ICD Codes: Z95.0 - Presence of cardiac pacemaker SNOMED: 074876215 (6) HTN (hypertension) ICD Codes: I10 - Essential (primary) hypertension SNOMED: 74294290 (7) CAD (coronary artery disease) ICD Codes: I25.10 - Atherosclerotic heart disease of [place] coronary artery without angina pectoris SNOMED: 08668094 (8) Diabetes mellitus, type II ICD Codes: E11.9 - Type 2 diabetes mellitus without complications SNOMED: 86298098 Assessment/Plan EGD on hold per cardiology recs, pending NELDA on Thursday add ppi no obvious GIB per nurses start NGTF repeat labs fu stool ob Subjective ROS Limited/Unobtainable: No Allergies: Coded Allergies: No Known Allergies (Unverified , 08/10/13) Objective Last 24 Hour Vital Signs Date Time Temp Pulse Resp B/P (MAP) Pulse Ox O2 Delivery O2 Flow Rate FiO2 07/02/18 08:00 99.0 91 22 109/47 (67) 100 07/02/18 08:00 Venturi Mask 12.0 07/02/18 04:00 98.1 83 32 110/43 (65) 94 07/02/18 04:00 Venturi Mask 12.0 07/02/18 03:36 91 07/02/18 00:00 Venturi Mask 12.0 07/02/18 00:00 97.9 60 32 109/62 (78) 95 07/01/18 23:36 67 07/01/18 20:00 79 20 Venturi Mask 12.0 50 07/01/18 20:00 Venturi Mask 12.0 50 07/01/18 20:00 93 Venturi Mask 12.0 50 07/01/18 20:00 Venturi Mask 12.0 07/01/18 20:00 97.0 68 24 94/72 (79) 94 07/01/18 19:01 75 07/01/18 18:00 Venturi Mask 12.0 07/01/18 16:00 Venturi Mask 12.0 07/01/18 16:00 97.5 77 20 102/60 (74) 95 07/01/18 15:34 78 07/01/18 12:00 Venturi Mask 12.0 07/01/18 12:00 96.8 110 28 104/68 (80) 95 07/01/18 11:46 96 Intake and Output 07/01/18 07/02/18 19:00 07:00 Intake Total 948.75 ml 708.82 ml Output Total 70 ml 500 ml Balance 878.75 ml 208.82 ml IV Total 848.75 ml 708.82 ml Other 100 ml Output Urine Total 20 ml 500 ml Gastric Drainage Total 50 ml # Voids 1 # Bowel Movements 2 2 Laboratory Tests 07/02/18 03:00: Stool Occult Blood [Pending] 07/02/18 04:25: White Blood Count 12.3H, Red Blood Count 2.70L, Hemoglobin 7.9L, Hematocrit 24.3L, Mean Corpuscular Volume 90, Mean Corpuscular Hemoglobin 29.2, Mean Corpuscular Hemoglobin Concent 32.4, Red Cell Distribution Width 15.0H, Platelet Count 44L, Mean Platelet Volume 11.0H, Neutrophils (%) (Auto) , Lymphocytes (%) (Auto) , Monocytes (%) (Auto) , Eosinophils (%) (Auto) , Basophils (%) (Auto) , Neutrophils % (Manual) [Pending], Lymphocytes % (Manual) [Pending], Platelet Estimate [Pending], Platelet Morphology [Pending], Erythrocyte Sedimentation Rate 30, Prothrombin Time 13.4H, Prothromb Time International Ratio 1.3H, Sodium Level 144, Potassium Level 3.6, Chloride Level 113H, Carbon Dioxide Level 17L, Anion Gap 14, Blood Urea Nitrogen 35H, Creatinine 1.0, Estimat Glomerular Filtration Rate , Glucose Level 137H, Calcium Level 7.1L, Phosphorus Level 4.4, Magnesium Level 1.7L, Total Bilirubin 1.5H, Direct Bilirubin 1.0H, Aspartate Amino Transf (AST/SGOT) 21, Alanine Aminotransferase (ALT/SGPT) 35, Alkaline Phosphatase 76, C-Reactive Protein, Quantitative 11.0H, Total Protein 4.3L, Albumin 1.3L, Globulin 3.0, Albumin/ Globulin Ratio 0.4L Height (Feet): 5 Height (Inches): 5.00 Weight (Pounds): 144 General Appearance: lethargic EENT: normal ENT inspection Neck: supple Cardiovascular: normal rate Respiratory/Chest: decreased breath sounds Abdomen: normal bowel sounds, non tender, soft Extremities: non-tender Oli Wallace MD Jul 02, 2018 10:01
--- NOTE | 2018-07-02 10:51 | Pulmonology Progress Note ---
Assessment/Plan Problems: (1) Sepsis (2) Thrombocytopenia (3) ATN (acute tubular necrosis) (4) Pulmonary hypertension (5) Sacral decubitus ulcer, stage III (6) Alzheimer's dementia (7) Protein-calorie malnutrition, severe (8) HTN (hypertension) (9) Pacemaker (10) CAD (coronary artery disease) Assessment/Plan on face mask /u PLT, better today failed swallow study Morphine prn d/w wound care nurse, mckeon cultures iv fluids check electrolytes sliding scale check electrolytes daily broad spectrum abx dvt prophylaxis insulin coverage. social service consult Subjective ROS Limited/Unobtainable: No Interval Events: still on face mask Constitutional: Reports: no symptoms Allergies: Coded Allergies: No Known Allergies (Unverified , 08/10/13) Objective Last 24 Hour Vital Signs Date Time Temp Pulse Resp B/P (MAP) Pulse Ox O2 Delivery O2 Flow Rate FiO2 07/02/18 08:00 99.0 91 22 109/47 (67) 100 07/02/18 08:00 Venturi Mask 12.0 07/02/18 07:36 91 07/02/18 04:00 98.1 83 32 110/43 (65) 94 07/02/18 04:00 Venturi Mask 12.0 07/02/18 03:36 91 07/02/18 00:00 Venturi Mask 12.0 07/02/18 00:00 97.9 60 32 109/62 (78) 95 07/01/18 23:36 67 07/01/18 20:00 79 20 Venturi Mask 12.0 50 07/01/18 20:00 Venturi Mask 12.0 50 07/01/18 20:00 93 Venturi Mask 12.0 50 07/01/18 20:00 Venturi Mask 12.0 07/01/18 20:00 97.0 68 24 94/72 (79) 94 07/01/18 19:01 75 07/01/18 18:00 Venturi Mask 12.0 07/01/18 16:00 Venturi Mask 12.0 07/01/18 16:00 97.5 77 20 102/60 (74) 95 07/01/18 15:34 78 07/01/18 12:00 Venturi Mask 12.0 07/01/18 12:00 96.8 110 28 104/68 (80) 95 07/01/18 11:46 96 Intake and Output 07/01/18 07/02/18 18:59 06:59 Intake Total 948.75 ml 758.82 ml Output Total 70 ml 500 ml Balance 878.75 ml 258.82 ml IV Total 848.75 ml 758.82 ml Other 100 ml Output Urine Total 20 ml 500 ml Gastric Drainage Total 50 ml # Voids 1 # Bowel Movements 2 2 Objective General Appearance: cachectic HEENT: normocephalic, somnolent Respiratory/Chest: chest wall non-tender, lungs clear Cardiovascular: normal peripheral pulses, normal rate Abdomen: normal bowel sounds, soft, non tender Extremities: no cyanosis Skin: no rash Microbiology Date/Time Source Procedure Growth Status 06/29/18 18:15 Blood Blood Culture - Final Staphylococcus Aureus - Mrsa Complete 06/29/18 18:00 Blood Blood Culture - Final Staphylococcus Aureus - Mrsa Complete Laboratory Tests 07/02/18 03:00: Stool Occult Blood [Pending] 07/02/18 04:25: White Blood Count 12.3H, Red Blood Count 2.70L, Hemoglobin 7.9L, Hematocrit 24.3L, Mean Corpuscular Volume 90, Mean Corpuscular Hemoglobin 29.2, Mean Corpuscular Hemoglobin Concent 32.4, Red Cell Distribution Width 15.0H, Platelet Count 44L, Mean Platelet Volume 11.0H, Neutrophils (%) (Auto) , Lymphocytes (%) (Auto) , Monocytes (%) (Auto) , Eosinophils (%) (Auto) , Basophils (%) (Auto) , Differential Total Cells Counted 100, Neutrophils % ( Manual) 95H, Lymphocytes % (Manual) 3L, Monocytes % (Manual) 2, Eosinophils % ( Manual) 0, Basophils % (Manual) 0, Band Neutrophils 0, Platelet Estimate DecreasedL, Platelet Morphology Normal, Anisocytosis 1+, Acanthocytes 1+, Erythrocyte Sedimentation Rate 30, Prothrombin Time 13.4H, Prothromb Time International Ratio 1.3H, Sodium Level 144, Potassium Level 3.6, Chloride Level 113H, Carbon Dioxide Level 17L, Anion Gap 14, Blood Urea Nitrogen 35H, Creatinine 1.0, Estimat Glomerular Filtration Rate , Glucose Level 137H, Calcium Level 7.1L, Phosphorus Level 4.4, Magnesium Level 1.7L, Total Bilirubin 1.5H, Direct Bilirubin 1.0H, Aspartate Amino Transf (AST/SGOT) 21, Alanine Aminotransferase (ALT/SGPT) 35, Alkaline Phosphatase 76, C-Reactive Protein, Quantitative 11.0H, Total Protein 4.3L, Albumin 1.3L, Globulin 3.0, Albumin/ Globulin Ratio 0.4L Current Medications Medications (Trade) Dose Ordered Sig/Yi Route PRN Reason Start Time Stop Time Status Last Admin Dose Admin Acetaminophen (Tylenol) 650 mg Q4H PRN NG Mild Pain/Temp > 100.5 06/29/18 18:15 07/29/18 18:14 Clonidine HCl (Catapres Tab) 0.1 mg Q8H PRN ORAL SBP>160mmHg 06/28/18 06:30 07/25/18 06:29 Daptomycin 400 mg/ Sodium Chloride 55 ml @ 100 mls/hr Q24H IV 06/30/18 18:00 07/07/18 17:59 07/01/18 17:41 Dextrose (Dextrose 50%) 25 ml Q30M PRN IV Hypoglycemia 06/28/18 06:15 07/24/18 13:30 Dextrose (Dextrose 50%) 50 ml Q30M PRN IV hypoglycemia 06/28/18 06:15 07/24/18 13:44 Dextrose/Sodium Chloride 1,000 ml @ 50 mls/hr Q20H IV 06/29/18 11:30 07/29/18 11:29 07/01/18 22:57 Insulin Aspart (NovoLOG) EVERY 6 HOURS SUBQ 06/28/18 12:00 07/24/18 16:29 06/29/18 12:22 Lansoprazole (Prevacid) 30 mg DAILY NG 07/03/18 09:00 08/02/18 08:59 UNV Lorazepam (Ativan) 1 mg Q6H PRN ORAL For Anxiety 06/28/18 07:00 07/02/18 12:52 Magnesium Sulfate 100 ml @ 100 mls/hr Q1H IV 07/02/18 12:00 07/02/18 13:59 UNV Morphine Sulfate (Morphine Sulfate) 2 mg Q4H PRN IVP Moderate Pain (Pain Scale 4-6) 06/28/18 09:00 07/02/18 12:52 06/29/18 22:01 Olanzapine (ZyPREXA) 2.5 mg BID ORAL 06/28/18 09:00 07/25/18 10:59 07/02/18 08:17 Ondansetron HCl (Zofran) 4 mg Q6H PRN IVP Nausea & Vomiting 06/28/18 07:00 07/25/18 12:52 Rod Mancera MD Jul 02, 2018 10:51
[2018-07-02] MEDS ORDERED: Isovue-300 100ml vial INJ PRN ×2 (11:00→14:43)
[2018-07-02 12:00] VITALS: BP 112/85
[2018-07-02] MEDS ORDERED: PPD Tuberculin Skin Test 5TU IDERMAL ONE (12:00)
--- NOTE | 2018-07-02 12:15 | NUR ---
RD ASSESSMENT & RECOMMENDATIONS SEE CARE ACTIVITY FOR COMPLETE ASSESSMENT DAILY ESTIMATED NEEDS: Needs based on Wound, DM, wasting, sepsis / 55kg 30-35 kcals/kg 6208-0178 total kcals 1.25-2 g protein/kg 69-110 g total protein 25-30 mL/kg 5557-1965 total fluid mLs NUTRITION DIAGNOSIS: * Increased kcal/prot needs R/T wound healing as evidenced by pt w/ stage 3 sacral wound per MD * Swallowing difficulty R/T dysphagia, respiratory status as evidenced by per [employer], pt at high risk for silent aspiration, rec for nonoral feedings, on NGT feeding. CURRENT TF:Vital AF 1.2 @ 55ml/hr x 24 hrs -> just ordered ENTERAL NUTRITION RECOMMENDATIONS: Glucerna 1.2 @ 60ml/hr x 24 hrs to provide 1440ml, 1728kcal, 86g prot, 1159ml free water - Rec Glucerna 1.2-> elemental formula of Vital not indicated. - Initiate Glucerna 1.2 @ 10ml/hr x 6 hrs, advance 10ml q 4-6 hrs as tolerated to goal rate. - Flush per MD/ HOB over 30 degrees ADDITIONAL RECOMMENDATIONS: * RE-calibrate bedscale for accurate CBW * Wound healing: Vit C 500mg BID, [place] 1pkt BID + ZnSO4 220mg daily x 10 days * Lytes daily, replete as needed . . .
--- NOTE | 2018-07-02 13:22 | Cardiology Progress Note ---
Subjective Subjective The patient is well known to me. She has bacteremia. She has two pacemaker batteries and 4 pacemkaer leads. Will need NELDA, potentially pacemaker removal if there are vegetations on the leasd seen I will proceed with NELDA next week. Objective Last 24 Hour Vital Signs Date Time Temp Pulse Resp B/P (MAP) Pulse Ox O2 Delivery O2 Flow Rate FiO2 07/02/18 12:00 Venturi Mask 12.0 07/02/18 11:34 95 07/02/18 08:00 99.0 91 22 109/47 (67) 100 07/02/18 08:00 Venturi Mask 12.0 07/02/18 07:36 91 07/02/18 04:00 98.1 83 32 110/43 (65) 94 07/02/18 04:00 Venturi Mask 12.0 07/02/18 03:36 91 07/02/18 00:00 Venturi Mask 12.0 07/02/18 00:00 97.9 60 32 109/62 (78) 95 07/01/18 23:36 67 07/01/18 20:00 79 20 Venturi Mask 12.0 50 07/01/18 20:00 Venturi Mask 12.0 50 07/01/18 20:00 93 Venturi Mask 12.0 50 07/01/18 20:00 Venturi Mask 12.0 07/01/18 20:00 97.0 68 24 94/72 (79) 94 07/01/18 19:01 75 07/01/18 18:00 Venturi Mask 12.0 07/01/18 16:00 Venturi Mask 12.0 07/01/18 16:00 97.5 77 20 102/60 (74) 95 07/01/18 15:34 78 Intake and Output 07/01/18 07/02/18 18:59 06:59 Intake Total 948.75 ml 758.82 ml Output Total 70 ml 500 ml Balance 878.75 ml 258.82 ml IV Total 848.75 ml 758.82 ml Other 100 ml Output Urine Total 20 ml 500 ml Gastric Drainage Total 50 ml # Voids 1 # Bowel Movements 2 2 Laboratory Tests Test 07/02/18 03:00 07/02/18 04:25 07/02/18 12:30 Stool Occult Blood Positive (NEGATIVE) White Blood Count 12.3 K/UL (4.8-10.8) H Red Blood Count 2.70 M/UL (4.20-5.40) L Hemoglobin 7.9 G/DL (12.0-16.0) L Hematocrit 24.3 % (37.0-47.0) L Mean Corpuscular Volume 90 FL (80-99) Mean Corpuscular Hemoglobin 29.2 PG (27.0-31.0) Mean Corpuscular Hemoglobin Concent 32.4 G/DL (32.0-36.0) Red Cell Distribution Width 15.0 % (11.6-14.8) H Platelet Count 44 K/UL (150-450) L Mean Platelet Volume 11.0 FL (6.5-10.1) H Neutrophils (%) (Auto) % (45.0-75.0) Lymphocytes (%) (Auto) % (20.0-45.0) Monocytes (%) (Auto) % (1.0-10.0) Eosinophils (%) (Auto) % (0.0-3.0) Basophils (%) (Auto) % (0.0-2.0) Differential Total Cells Counted 100 Neutrophils % (Manual) 95 % (45-75) H Lymphocytes % (Manual) 3 % (20-45) L Monocytes % (Manual) 2 % (1-10) Eosinophils % (Manual) 0 % (0-3) Basophils % (Manual) 0 % (0-2) Band Neutrophils 0 % (0-8) Platelet Estimate Decreased L Platelet Morphology Normal Anisocytosis 1+ Acanthocytes 1+ Erythrocyte Sedimentation Rate 30 MM/HR (0-30) Prothrombin Time 13.4 SEC (9.30-11.50) H Prothromb Time International Ratio 1.3 (0.9-1.1) H Sodium Level 144 MMOL/L (136-145) Potassium Level 3.6 MMOL/L (3.5-5.1) Chloride Level 113 MMOL/L (98-107) H Carbon Dioxide Level 17 MMOL/L (21-32) L Anion Gap 14 mmol/L (5-15) Blood Urea Nitrogen 35 mg/dL (7-18) H Creatinine 1.0 MG/DL (0.55-1.30) Estimat Glomerular Filtration Rate mL/min (>60) Glucose Level 137 MG/DL (74-106) H Calcium Level 7.1 MG/DL (8.5-10.1) L Phosphorus Level 4.4 MG/DL (2.5-4.9) Magnesium Level 1.7 MG/DL (1.8-2.4) L Total Bilirubin 1.5 MG/DL (0.2-1.0) H Direct Bilirubin 1.0 MG/DL (0.0-0.3) H Aspartate Amino Transf (AST/SGOT) 21 U/L (15-37) Alanine Aminotransferase (ALT/SGPT) 35 U/L (12-78) Alkaline Phosphatase 76 U/L (46-116) Lactate Dehydrogenase 320 U/L (81-234) H C-Reactive Protein, Quantitative 11.0 mg/dL (0.00-0.90) H Total Protein 4.3 G/DL (6.4-8.2) L Albumin 1.3 G/DL (3.4-5.0) L Globulin 3.0 g/dL Albumin/Globulin Ratio 0.4 (1.0-2.7) L Carcinoembryonic Antigen Pending Blastomyces Ab Immunodiffusion Pending Histoplasma Mycelial Antibody Pending Histoplasma Antibody w Mycelial Ag Pending Histoplasma Antibody with Yeast Ag Pending TB Test (T-Spot) Pending TB Test Nil Control (T-Spot) Pending TB Test Panel A (T-Spot) Pending TB Test Panel B (T-Spot) Pending TB Test Positive Control (T-Spot) Pending Microbiology Date/Time Source Procedure Growth Status 07/01/18 07:45 Blood Blood Culture - Preliminary Resulted 07/01/18 07:35 Blood Blood Culture - Preliminary Resulted 06/29/18 18:15 Blood Blood Culture - Final Staphylococcus Aureus - Mrsa Complete 06/29/18 18:00 Blood Blood Culture - Final Staphylococcus Aureus - Mrsa Complete Karol Oliver MD Jul 02, 2018 13:22
--- NOTE | 2018-07-02 14:30 | NUR ---
NURSE NOTES: Received patient from SOILA Brooks. Patient on Venturi Mask 12L. Patient has midline and IV sites intact, asymptomatic and patent. Patient is on heart monitor at [facility]. Patient is AAO x1, responds in M[place]ese. Patient is on Nicholas 1.2 at 20ml/hr. NGT is secured. Patient has purewick attached. Patient has wounds. Sacral has pressure ulcer stage 4. right shoulder as pressure ulcer. 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 Patient was resting in bed. Will f/u with plan of care. Increase rate at 18:00 for Nicholas 1.2 to 30ml/hr. Had one BM at 18:30 patient was changed.
--- NOTE | 2018-07-02 14:30 | NUR ---
TRANSFER TO FLOOR: Patient transferred to Telemetry 217-2, per Dr. Mancera. Report given to SOILA Davis. Belongings (1 gold bracelet) and medications given to SOILA Davis. Patient stable.
[2018-07-02] MEDS ORDERED: Acetaminophen 650mg/20.3ml NG PRN (14:43)
--- NOTE | 2018-07-02 15:02 | Surgery Progress Note ---
Surgery Progress Note Subjective Additional Comments unchanged Objective Last 24 Hour Vital Signs Date Time Temp Pulse Resp B/P (MAP) Pulse Ox O2 Delivery O2 Flow Rate FiO2 07/02/18 12:00 98.6 77 22 112/85 (94) 100 07/02/18 12:00 Venturi Mask 12.0 07/02/18 11:34 95 07/02/18 08:00 99.0 91 22 109/47 (67) 100 07/02/18 08:00 Venturi Mask 12.0 07/02/18 07:36 91 07/02/18 04:00 98.1 83 32 110/43 (65) 94 07/02/18 04:00 Venturi Mask 12.0 07/02/18 03:36 91 07/02/18 00:00 Venturi Mask 12.0 07/02/18 00:00 97.9 60 32 109/62 (78) 95 07/01/18 23:36 67 07/01/18 20:00 79 20 Venturi Mask 12.0 50 07/01/18 20:00 Venturi Mask 12.0 50 07/01/18 20:00 93 Venturi Mask 12.0 50 07/01/18 20:00 Venturi Mask 12.0 07/01/18 20:00 97.0 68 24 94/72 (79) 94 07/01/18 19:01 75 07/01/18 18:00 Venturi Mask 12.0 07/01/18 16:00 Venturi Mask 12.0 07/01/18 16:00 97.5 77 20 102/60 (74) 95 07/01/18 15:34 78 I&O Intake and Output 07/01/18 07/02/18 19:00 07:00 Intake Total 948.75 ml 708.82 ml Output Total 70 ml 500 ml Balance 878.75 ml 208.82 ml IV Total 848.75 ml 708.82 ml Other 100 ml Output Urine Total 20 ml 500 ml Gastric Drainage Total 50 ml # Voids 1 # Bowel Movements 2 2 Laboratory Tests Test 07/02/18 03:00 07/02/18 04:25 07/02/18 12:30 Stool Occult Blood Positive (NEGATIVE) White Blood Count 12.3 K/UL (4.8-10.8) H Red Blood Count 2.70 M/UL (4.20-5.40) L Hemoglobin 7.9 G/DL (12.0-16.0) L Hematocrit 24.3 % (37.0-47.0) L Mean Corpuscular Volume 90 FL (80-99) Mean Corpuscular Hemoglobin 29.2 PG (27.0-31.0) Mean Corpuscular Hemoglobin Concent 32.4 G/DL (32.0-36.0) Red Cell Distribution Width 15.0 % (11.6-14.8) H Platelet Count 44 K/UL (150-450) L Mean Platelet Volume 11.0 FL (6.5-10.1) H Neutrophils (%) (Auto) % (45.0-75.0) Lymphocytes (%) (Auto) % (20.0-45.0) Monocytes (%) (Auto) % (1.0-10.0) Eosinophils (%) (Auto) % (0.0-3.0) Basophils (%) (Auto) % (0.0-2.0) Differential Total Cells Counted 100 Neutrophils % (Manual) 95 % (45-75) H Lymphocytes % (Manual) 3 % (20-45) L Monocytes % (Manual) 2 % (1-10) Eosinophils % (Manual) 0 % (0-3) Basophils % (Manual) 0 % (0-2) Band Neutrophils 0 % (0-8) Platelet Estimate Decreased L Platelet Morphology Normal Anisocytosis 1+ Acanthocytes 1+ Erythrocyte Sedimentation Rate 30 MM/HR (0-30) Prothrombin Time 13.4 SEC (9.30-11.50) H Prothromb Time International Ratio 1.3 (0.9-1.1) H Sodium Level 144 MMOL/L (136-145) Potassium Level 3.6 MMOL/L (3.5-5.1) Chloride Level 113 MMOL/L (98-107) H Carbon Dioxide Level 17 MMOL/L (21-32) L Anion Gap 14 mmol/L (5-15) Blood Urea Nitrogen 35 mg/dL (7-18) H Creatinine 1.0 MG/DL (0.55-1.30) Estimat Glomerular Filtration Rate mL/min (>60) Glucose Level 137 MG/DL (74-106) H Calcium Level 7.1 MG/DL (8.5-10.1) L Phosphorus Level 4.4 MG/DL (2.5-4.9) Magnesium Level 1.7 MG/DL (1.8-2.4) L Total Bilirubin 1.5 MG/DL (0.2-1.0) H Direct Bilirubin 1.0 MG/DL (0.0-0.3) H Aspartate Amino Transf (AST/SGOT) 21 U/L (15-37) Alanine Aminotransferase (ALT/SGPT) 35 U/L (12-78) Alkaline Phosphatase 76 U/L (46-116) Lactate Dehydrogenase 320 U/L (81-234) H C-Reactive Protein, Quantitative 11.0 mg/dL (0.00-0.90) H Total Protein 4.3 G/DL (6.4-8.2) L Albumin 1.3 G/DL (3.4-5.0) L Globulin 3.0 g/dL Albumin/Globulin Ratio 0.4 (1.0-2.7) L Carcinoembryonic Antigen Pending Blastomyces Ab Immunodiffusion Pending Histoplasma Mycelial Antibody Pending Histoplasma Antibody w Mycelial Ag Pending Histoplasma Antibody with Yeast Ag Pending TB Test (T-Spot) Pending TB Test Nil Control (T-Spot) Pending TB Test Panel A (T-Spot) Pending TB Test Panel B (T-Spot) Pending TB Test Positive Control (T-Spot) Pending Plan Problems: (1) Sepsis Assessment & Plan: Leukocytosis resolved LFT's elevated w/ t bili / d bili - improved AM labs ordered hydrate US Impression: Limited exam, as described. Note inability to visualize the spleen Negative for gallstones or dilated bile ducts Questionable bilateral renal parapelvic cysts Small to moderate right pleural effusion no acute surgical intervention planned. will follow with recs. (2) Sacral decubitus ulcer, stage III Assessment & Plan: DTPI sacrum.Maroon- indurated discoloration with opening at sacral coccygeal area(L)3.8cm x (W)1.4cm with entire wound measuring (L)10cmx(W) 12cm.Small amt malodorous brown exudate. Stable dry eschar R heel with dry peeling skin periwound (L)2cm x (W)3.5cm. Periwound is also red and boggy. Small dry eschar noted to lateral R 5th metatarsal (L)1.4cm x (W)0.3cm. L heel is boggy but colour is dusky . Resolving skin tear lateral R tibia. Wound bed is clean and dry. Tx. Plan: Cleanse Sacral wound with Saline.Apply Therahoney to opening at sacrococcygeal area.Cavilon skin barrier to DTPI. Cover with Optifoam drsg .Change Daily and prn. Apply Betadine to R heel and Lateral R 5th metatarsal.Cover with Abd pad .Wrap with kerlix daily and prn. Apply Cavilon Skin Barrier to L heel.Cover with Optifoam drsg .Change every 7 days and prn. Reposition at least every 2hours or as tolerated. Off-load heels with pillow. (3) Rectal bleed (4) Protein-calorie malnutrition, severe (5) Dehydration Sher Younger Jul 02, 2018 15:02
[2018-07-02] MEDS: D5 1/2NS 1,000 ML IV SCH (15:45)
--- NOTE | 2018-07-02 15:53 | Infectious Diseases Prog Note ---
Assessment/Plan Assessment/Plan 82 yo female with PMHx DM, CAD, Alzheimer dementia and Hip fracture who presents with dehydration and weakness. 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 Given normal appearing chest radiograph on 06/24/2018, these are overwhelmingly likely infectious/inflammatory in nature. Most likely represent septic pulmonary emboli. The possibility of mycobacterial infection should also be included, deemed less likely given absence of adenopathy but still possible. Differential considerations also include fungal infections, noninfectious inflammatory processes. Other noncavitary nodules are also demonstrated, with the same differential. Large right and [id number] left pleural effusions. Compressive atelectasis of the majority of the right lower lobe. Infiltrates seen in the right upper lobe. Bilateral pacemaker. Evidence of central venoocclusive disease. Wedge-shaped area of low-attenuation in the upper pole of the spleen, suspicious for infarct. -2d Echo (limited study due to contractures): no vegetations seen -06/27 Bcx 4/4MRSA; 06/28 Bcx 2/4 MRSA; 06/29 08/19 MRSA; 07/01 Bcx /4 GPC clusters 06/25/18 Blood Cx 08/19 MRSA 06/24/18 Wound Cx MRSA, ESBL E.coli (S ZOsyn), K. pna (S Zosyn) Leukocytosis, recurrent, increasing Low grade fever; improving Positive UA CXR neg Thrombocytopenia- HIT vs medication related Pressure ulcers Not infected Right hip fracture with hemiarthroplasty Feb 2018 DM HTN Sick sinus syndrome sp Pacemaker HLD CAD - SP UT and CABG Aortic stenosis. Pulmonary hypertension. Alzheimer dementia. PLAN - Continue Daptomycin #3 (abx d #8) and add IV Ceftaroline given persistent MRSA Bacteremia - repeat 2 sets of Bcx -06/30 SP Vancomycin #6 -06/30 SP Zosyn #4 -06/27 SP Cefepime #3 -Will need NELDA to look for endocarditis and/or PPM infection if consistent with goals of care -placed on airborne isolation -AFB s/cx x3, MTB PCR x1 - f/u repeat cultures - Monitor CBC and temps - wound care - Nutritional support -f/u cocci, crAg, histo, blasto serologies Thank you for this consult. We will continue to follow the patient during this hospitalization. Subjective Allergies: Coded Allergies: No Known Allergies (Unverified , 08/10/13) Subjective ; afebrline ~72hrs CT w/ cavitary lung lessions; placed on isolation Leukoycotis increasing remains bacteremic Objective Vital Signs Last 24 Hour Vital Signs Date Time Temp Pulse Resp B/P (MAP) Pulse Ox O2 Delivery O2 Flow Rate FiO2 07/02/18 12:00 98.6 77 22 112/85 (94) 100 07/02/18 12:00 Venturi Mask 12.0 07/02/18 11:34 95 07/02/18 08:00 99.0 91 22 109/47 (67) 100 07/02/18 08:00 Venturi Mask 12.0 07/02/18 07:36 91 07/02/18 04:00 98.1 83 32 110/43 (65) 94 07/02/18 04:00 Venturi Mask 12.0 07/02/18 03:36 91 07/02/18 00:00 Venturi Mask 12.0 07/02/18 00:00 97.9 60 32 109/62 (78) 95 07/01/18 23:36 67 07/01/18 20:00 79 20 Venturi Mask 12.0 50 07/01/18 20:00 Venturi Mask 12.0 50 07/01/18 20:00 93 Venturi Mask 12.0 50 07/01/18 20:00 Venturi Mask 12.0 07/01/18 20:00 97.0 68 24 94/72 (79) 94 07/01/18 19:01 75 07/01/18 18:00 Venturi Mask 12.0 07/01/18 16:00 Venturi Mask 12.0 07/01/18 16:00 97.5 77 20 102/60 (74) 95 Height (Feet): 5 Height (Inches): 5.00 Weight (Pounds): 144 Objective Gen: Moaning, Awake but no following HEENT: NCAT, MMM, EOMI, PERRL LUNGS: CTAB, No W CARDS: RRR, S1, S2, No M/R/G, ABD: Soft, NT, ND, + BS Ext: Poor circulation to Ext (cool to touch) , Pulses 2+ B/L (DP, Rad): SKIN: Dry, No rashes, Large sacral ulcer. Mild odor no surrounding cellulitis, foot with eschar Microbiology Date/Time Source Procedure Growth Status 07/01/18 07:45 Blood Blood Culture - Preliminary Resulted 07/01/18 07:35 Blood Blood Culture - Preliminary Resulted 06/29/18 18:15 Blood Blood Culture - Final Staphylococcus Aureus - Mrsa Complete 06/29/18 18:00 Blood Blood Culture - Final Staphylococcus Aureus - Mrsa Complete Laboratory Tests Test 07/02/18 03:00 07/02/18 04:25 07/02/18 12:30 Stool Occult Blood Positive (NEGATIVE) White Blood Count 12.3 K/UL (4.8-10.8) H Red Blood Count 2.70 M/UL (4.20-5.40) L Hemoglobin 7.9 G/DL (12.0-16.0) L Hematocrit 24.3 % (37.0-47.0) L Mean Corpuscular Volume 90 FL (80-99) Mean Corpuscular Hemoglobin 29.2 PG (27.0-31.0) Mean Corpuscular Hemoglobin Concent 32.4 G/DL (32.0-36.0) Red Cell Distribution Width 15.0 % (11.6-14.8) H Platelet Count 44 K/UL (150-450) L Mean Platelet Volume 11.0 FL (6.5-10.1) H Neutrophils (%) (Auto) % (45.0-75.0) Lymphocytes (%) (Auto) % (20.0-45.0) Monocytes (%) (Auto) % (1.0-10.0) Eosinophils (%) (Auto) % (0.0-3.0) Basophils (%) (Auto) % (0.0-2.0) Differential Total Cells Counted 100 Neutrophils % (Manual) 95 % (45-75) H Lymphocytes % (Manual) 3 % (20-45) L Monocytes % (Manual) 2 % (1-10) Eosinophils % (Manual) 0 % (0-3) Basophils % (Manual) 0 % (0-2) Band Neutrophils 0 % (0-8) Platelet Estimate Decreased L Platelet Morphology Normal Anisocytosis 1+ Acanthocytes 1+ Erythrocyte Sedimentation Rate 30 MM/HR (0-30) Prothrombin Time 13.4 SEC (9.30-11.50) H Prothromb Time International Ratio 1.3 (0.9-1.1) H Sodium Level 144 MMOL/L (136-145) Potassium Level 3.6 MMOL/L (3.5-5.1) Chloride Level 113 MMOL/L (98-107) H Carbon Dioxide Level 17 MMOL/L (21-32) L Anion Gap 14 mmol/L (5-15) Blood Urea Nitrogen 35 mg/dL (7-18) H Creatinine 1.0 MG/DL (0.55-1.30) Estimat Glomerular Filtration Rate mL/min (>60) Glucose Level 137 MG/DL (74-106) H Calcium Level 7.1 MG/DL (8.5-10.1) L Phosphorus Level 4.4 MG/DL (2.5-4.9) Magnesium Level 1.7 MG/DL (1.8-2.4) L Total Bilirubin 1.5 MG/DL (0.2-1.0) H Direct Bilirubin 1.0 MG/DL (0.0-0.3) H Aspartate Amino Transf (AST/SGOT) 21 U/L (15-37) Alanine Aminotransferase (ALT/SGPT) 35 U/L (12-78) Alkaline Phosphatase 76 U/L (46-116) Lactate Dehydrogenase 320 U/L (81-234) H C-Reactive Protein, Quantitative 11.0 mg/dL (0.00-0.90) H Total Protein 4.3 G/DL (6.4-8.2) L Albumin 1.3 G/DL (3.4-5.0) L Globulin 3.0 g/dL Albumin/Globulin Ratio 0.4 (1.0-2.7) L Carcinoembryonic Antigen Pending Blastomyces Ab Immunodiffusion Pending Histoplasma Mycelial Antibody Pending Histoplasma Antibody w Mycelial Ag Pending Histoplasma Antibody with Yeast Ag Pending TB Test (T-Spot) Pending TB Test Nil Control (T-Spot) Pending TB Test Panel A (T-Spot) Pending TB Test Panel B (T-Spot) Pending TB Test Positive Control (T-Spot) Pending Current Medications Medications (Trade) Dose Ordered Sig/Yi Route PRN Reason Start Time Stop Time Status Last Admin Dose Admin Acetaminophen (Tylenol) 650 mg Q4H PRN NG Mild Pain/Temp > 100.5 07/02/18 14:43 07/29/18 14:42 Clonidine HCl (Catapres Tab) 0.1 mg Q8H PRN ORAL SBP>160mmHg 07/02/18 14:43 07/25/18 14:42 Daptomycin 400 mg/ Sodium Chloride 55 ml @ 100 mls/hr Q24H IV 07/02/18 18:00 07/07/18 17:59 Dextrose (Dextrose 50%) 25 ml Q30M PRN IV Hypoglycemia 07/02/18 14:45 07/24/18 13:30 Dextrose (Dextrose 50%) 50 ml Q30M PRN IV hypoglycemia 07/02/18 14:45 07/24/18 13:44 Dextrose/Sodium Chloride 1,000 ml @ 50 mls/hr Q20H IV 07/02/18 14:43 07/29/18 14:42 Insulin Aspart (NovoLOG) EVERY 6 HOURS SUBQ 07/02/18 18:00 07/24/18 16:29 Iopamidol (Isovue-300 100ml) 100 ml NOW PRN INJ Radiology Procedure 07/02/18 14:43 07/03/18 14:42 Lansoprazole (Prevacid) 30 mg DAILY NG 07/03/18 09:00 08/02/18 08:59 Olanzapine (ZyPREXA) 2.5 mg BID ORAL 07/02/18 18:00 07/25/18 10:59 Ondansetron HCl (Zofran) 4 mg Q6H PRN IVP Nausea & Vomiting 07/02/18 14:44 07/25/18 14:43 Roseann Bardales M.D. Jul 02, 2018 15:53
[2018-07-02 16:00] VITALS: BP 117/56
--- NOTE | 2018-07-02 19:20 | Internal Med Progress Note ---
Subjective Physician Name Carlos Alberto Berkowitz Attending Physician Carlos Alberto Berkowitz MD Current Medications Medications (Trade) Dose Ordered Sig/Yi Route PRN Reason Start Time Stop Time Status Last Admin Dose Admin Acetaminophen (Tylenol) 650 mg Q4H PRN NG Mild Pain/Temp > 100.5 07/02/18 14:43 07/29/18 14:42 Ceftaroline Fosamil 400 mg/ Sodium Chloride 55 ml @ 55 mls/hr Q12HR IV 07/02/18 21:00 07/09/18 20:59 Clonidine HCl (Catapres Tab) 0.1 mg Q8H PRN ORAL SBP>160mmHg 07/02/18 14:43 07/25/18 14:42 Daptomycin 400 mg/ Sodium Chloride 55 ml @ 100 mls/hr Q24H IV 07/02/18 18:00 07/07/18 17:59 Dextrose (Dextrose 50%) 25 ml Q30M PRN IV Hypoglycemia 07/02/18 14:45 07/24/18 13:30 Dextrose (Dextrose 50%) 50 ml Q30M PRN IV hypoglycemia 07/02/18 14:45 07/24/18 13:44 Dextrose/Sodium Chloride 1,000 ml @ 50 mls/hr Q20H IV 07/02/18 14:43 07/29/18 14:42 07/02/18 15:45 Insulin Aspart (NovoLOG) EVERY 6 HOURS SUBQ 07/02/18 18:00 07/24/18 16:29 Iopamidol (Isovue-300 100ml) 100 ml NOW PRN INJ Radiology Procedure 07/02/18 14:43 07/03/18 14:42 Lansoprazole (Prevacid) 30 mg DAILY NG 07/03/18 09:00 08/02/18 08:59 Olanzapine (ZyPREXA) 2.5 mg BID ORAL 07/02/18 18:00 07/25/18 10:59 Ondansetron HCl (Zofran) 4 mg Q6H PRN IVP Nausea & Vomiting 07/02/18 14:44 07/25/18 14:43 Allergies: Coded Allergies: No Known Allergies (Unverified , 08/10/13) Subjective looking weak, less responsive, sleepy in respiratory isolation, on Venti Mask Objective Last Vital Signs Date Time Temp Pulse Resp B/P (MAP) Pulse Ox O2 Delivery O2 Flow Rate FiO2 07/02/18 16:00 98.1 77 22 117/56 (76) 95 07/02/18 16:00 Venturi Mask 12.0 07/01/18 20:00 50 Laboratory Tests Test 07/02/18 03:00 07/02/18 04:25 07/02/18 12:30 Stool Occult Blood Positive (NEGATIVE) White Blood Count 12.3 K/UL (4.8-10.8) H Red Blood Count 2.70 M/UL (4.20-5.40) L Hemoglobin 7.9 G/DL (12.0-16.0) L Hematocrit 24.3 % (37.0-47.0) L Mean Corpuscular Volume 90 FL (80-99) Mean Corpuscular Hemoglobin 29.2 PG (27.0-31.0) Mean Corpuscular Hemoglobin Concent 32.4 G/DL (32.0-36.0) Red Cell Distribution Width 15.0 % (11.6-14.8) H Platelet Count 44 K/UL (150-450) L Mean Platelet Volume 11.0 FL (6.5-10.1) H Neutrophils (%) (Auto) % (45.0-75.0) Lymphocytes (%) (Auto) % (20.0-45.0) Monocytes (%) (Auto) % (1.0-10.0) Eosinophils (%) (Auto) % (0.0-3.0) Basophils (%) (Auto) % (0.0-2.0) Differential Total Cells Counted 100 Neutrophils % (Manual) 95 % (45-75) H Lymphocytes % (Manual) 3 % (20-45) L Monocytes % (Manual) 2 % (1-10) Eosinophils % (Manual) 0 % (0-3) Basophils % (Manual) 0 % (0-2) Band Neutrophils 0 % (0-8) Platelet Estimate Decreased L Platelet Morphology Normal Anisocytosis 1+ Acanthocytes 1+ Erythrocyte Sedimentation Rate 30 MM/HR (0-30) Prothrombin Time 13.4 SEC (9.30-11.50) H Prothromb Time International Ratio 1.3 (0.9-1.1) H Sodium Level 144 MMOL/L (136-145) Potassium Level 3.6 MMOL/L (3.5-5.1) Chloride Level 113 MMOL/L (98-107) H Carbon Dioxide Level 17 MMOL/L (21-32) L Anion Gap 14 mmol/L (5-15) Blood Urea Nitrogen 35 mg/dL (7-18) H Creatinine 1.0 MG/DL (0.55-1.30) Estimat Glomerular Filtration Rate mL/min (>60) Glucose Level 137 MG/DL (74-106) H Calcium Level 7.1 MG/DL (8.5-10.1) L Phosphorus Level 4.4 MG/DL (2.5-4.9) Magnesium Level 1.7 MG/DL (1.8-2.4) L Total Bilirubin 1.5 MG/DL (0.2-1.0) H Direct Bilirubin 1.0 MG/DL (0.0-0.3) H Aspartate Amino Transf (AST/SGOT) 21 U/L (15-37) Alanine Aminotransferase (ALT/SGPT) 35 U/L (12-78) Alkaline Phosphatase 76 U/L (46-116) Lactate Dehydrogenase 320 U/L (81-234) H C-Reactive Protein, Quantitative 11.0 mg/dL (0.00-0.90) H Total Protein 4.3 G/DL (6.4-8.2) L Albumin 1.3 G/DL (3.4-5.0) L Globulin 3.0 g/dL Albumin/Globulin Ratio 0.4 (1.0-2.7) L Carcinoembryonic Antigen Pending Blastomyces Ab Immunodiffusion Pending Histoplasma Mycelial Antibody Pending Histoplasma Antibody w Mycelial Ag Pending Histoplasma Antibody with Yeast Ag Pending TB Test (T-Spot) Pending TB Test Nil Control (T-Spot) Pending TB Test Panel A (T-Spot) Pending TB Test Panel B (T-Spot) Pending TB Test Positive Control (T-Spot) Pending Microbiology Date/Time Source Procedure Growth Status 07/01/18 07:45 Blood Blood Culture - Preliminary Resulted 07/01/18 07:35 Blood Blood Culture - Preliminary Resulted Intake and Output 07/01/18 07/02/18 19:00 07:00 Intake Total 948.75 ml 708.82 ml Output Total 70 ml 500 ml Balance 878.75 ml 208.82 ml IV Total 848.75 ml 708.82 ml Other 100 ml Output Urine Total 20 ml 500 ml Gastric Drainage Total 50 ml # Voids 1 # Bowel Movements 2 2 Objective General: Awake and less responsive, Sleepy, cachectic. HEENT: NCAT, sclera anicteric, PERRL, NG tube. Neck: Supple, no significant jugular venous distention, Lungs: Poor inspiratory effort, decreased air in the bases , no Wheeze or Rales. Heart: Regular rate and rhythm, normal S1/S2, no murmur. Abdomen: soft, nontender, nondistended. Normoactive bowel sounds. / Rectal: Refused and deferred. Extremities: No Cyanosis , No clubbing, Left UE edema. Lateral lower extremity / feet dressing intact. RUE Piccline. Neuro: A&O x 1, Able to move all extremities Skin: warm, no rashes or lesions, ecchymosis in bilateral upper extremity noted.Stage 4 Decubi ulceration. Assessment/Plan Assessment/Plan 1. Sepsis / High grade persistent MRSA bacteremia w/ septic emboli- Infective endocarditis until proven otherwise- r/o probable PPM infection 2. Failure to thrive with severe protein calorie malnutrition. 3. Coronary artery disease. 4. Diabetes, type 2. 5. Hypertension. 6. Sick sinus syndrome. 7. Hypercholesterolemia. 8. Aortic stenosis. 9. Pulmonary hypertension. 10. Alzheimer dementia. 11. Acute tubular necrosis/acute kidney injury most likely secondary to dehydration and sepsis. 12. Sacral decubitus ulcer, stage III 13. Severe dehydration 14. Hypokalemia. 15. Abnormal liver function test TREATMENT: 1. Antibiotics with Daptomycin and Ceftaroline Monitor culture, for NELDA. 2. Coronary artery disease. The patient is status post coronary artery bypass graft in 2017. 3. Diabetes, type 2. The patient has been started on NovoLog sliding scale. 4. Hypertension. The patient is to continue on atenolol and losartan as above. 5. Sick sinus syndrome. The patient is status post pacemaker implantation. 6. Hypercholesterolemia. Continue simvastatin as above. 7. Aortic stenosis. 8. Pulmonary hypertension. 9. Alzheimer dementia. will follow her laboratory as well as culture in the morning. Tube feeding at rate of 45 cc/hr. CODE STATUS is full code as per ARLET, DVT prophylaxis: Heparin subcu. Carlos Alberto Berkowitz MD Jul 02, 2018 19:20
--- NOTE | 2018-07-02 19:43 | NUR ---
NURSE NOTES: Received pt. and report from SOILA Davis. Observed pt. resting in bed with both eyes open. Pt. is A/O x1; responds to name only. quality assurance monitor body is in placed. Pt. has a CHRISTIAN midline; currently running D5 1/2 NS @ 50cc/hr. Pt. also has a Lt thumb 24G S/L and Rt hand 22G S/L; both IV sites are intact, asymptomatic, and patent. Pt. has a NGT currently feeding Vital AF 1.2 @ 30cc/hr; goal rate of feeding is 55cc/hr. Call light within reach, bed is in the lowest position and locked. No acute distress noted at this time. Will continue plan of care. Addendum: 07/03/18 at 0054 by Maddi Ramírez Mai, RN J CARLOS midline
[2018-07-02] MEDS: DAPTOmycin 400 MG in NS 55 ML IV SCH (19:55)
[2018-07-02 20:00] VITALS: BP 103/63
--- NOTE | 2018-07-02 20:38 | General Progress Note ---
Assessment/Plan Problem List: (1) Acute encephalopathy Assessment & Plan: metabolic ICD Codes: G93.40 - Encephalopathy, unspecified SNOMED: 70758407, [id number] (2) Delirium ICD Codes: R41.0 - Disorientation, unspecified SNOMED: 4393681 (3) Alzheimer's dementia ICD Codes: G30.9 - Alzheimer's disease, unspecified; F02.80 - Dementia in other diseases classified elsewhere without behavioral disturbance SNOMED: 06869425 Assessment/Plan Zyprexa the pt lacks capacity soft restraints if needed Subjective Neurologic/Psychiatric: Reports: anxiety Allergies: Coded Allergies: No Known Allergies (Unverified , 08/10/13) Subjective cont to be agitated lethargic Objective Last 24 Hour Vital Signs Date Time Temp Pulse Resp B/P (MAP) Pulse Ox O2 Delivery O2 Flow Rate FiO2 07/02/18 16:00 98.1 77 22 117/56 (76) 95 07/02/18 16:00 Venturi Mask 12.0 07/02/18 15:36 83 07/02/18 14:00 Venturi Mask 12.0 07/02/18 12:00 98.6 77 22 112/85 (94) 100 07/02/18 12:00 Venturi Mask 12.0 07/02/18 11:34 95 07/02/18 08:00 99.0 91 22 109/47 (67) 100 07/02/18 08:00 Venturi Mask 12.0 07/02/18 07:36 91 07/02/18 04:00 98.1 83 32 110/43 (65) 94 07/02/18 04:00 Venturi Mask 12.0 07/02/18 03:36 91 07/02/18 00:00 Venturi Mask 12.0 07/02/18 00:00 97.9 60 32 109/62 (78) 95 07/01/18 23:36 67 Intake and Output 07/01/18 07/02/18 19:00 07:00 Intake Total 948.75 ml 708.82 ml Output Total 70 ml 500 ml Balance 878.75 ml 208.82 ml IV Total 848.75 ml 708.82 ml Other 100 ml Output Urine Total 20 ml 500 ml Gastric Drainage Total 50 ml # Voids 1 # Bowel Movements 2 2 Laboratory Tests 07/02/18 03:00: Stool Occult Blood Positive 2/15/19 04:25: White Blood Count 12.3H, Red Blood Count 2.70L, Hemoglobin 7.9L, Hematocrit 24.3L, Mean Corpuscular Volume 90, Mean Corpuscular Hemoglobin 29.2, Mean Corpuscular Hemoglobin Concent 32.4, Red Cell Distribution Width 15.0H, Platelet Count 44L, Mean Platelet Volume 11.0H, Neutrophils (%) (Auto) , Lymphocytes (%) (Auto) , Monocytes (%) (Auto) , Eosinophils (%) (Auto) , Basophils (%) (Auto) , Differential Total Cells Counted 100, Neutrophils % ( Manual) 95H, Lymphocytes % (Manual) 3L, Monocytes % (Manual) 2, Eosinophils % ( Manual) 0, Basophils % (Manual) 0, Band Neutrophils 0, Platelet Estimate DecreasedL, Platelet Morphology Normal, Anisocytosis 1+, Acanthocytes 1+, Erythrocyte Sedimentation Rate 30, Prothrombin Time 13.4H, Prothromb Time International Ratio 1.3H, Sodium Level 144, Potassium Level 3.6, Chloride Level 113H, Carbon Dioxide Level 17L, Anion Gap 14, Blood Urea Nitrogen 35H, Creatinine 1.0, Estimat Glomerular Filtration Rate , Glucose Level 137H, Calcium Level 7.1L, Phosphorus Level 4.4, Magnesium Level 1.7L, Total Bilirubin 1.5H, Direct Bilirubin 1.0H, Aspartate Amino Transf (AST/SGOT) 21, Alanine Aminotransferase (ALT/SGPT) 35, Alkaline Phosphatase 76, Lactate Dehydrogenase 320H, C-Reactive Protein, Quantitative 11.0H, Total Protein 4.3L, Albumin 1.3L, Globulin 3.0, Albumin/Globulin Ratio 0.4L, Carcinoembryonic Antigen [Pending], Blastomyces Ab Immunodiffusion [Pending], Histoplasma Mycelial Antibody [Pending ], Histoplasma Antibody w Mycelial Ag [Pending], Histoplasma Antibody with Yeast Ag [Pending] 07/02/18 12:30: TB Test (T-Spot) [Pending], TB Test Nil Control (T-Spot) [Pending], TB Test Panel A (T-Spot) [Pending], TB Test Panel B (T-Spot) [Pending], TB Test Positive Control (T-Spot) [Pending] Height (Feet): 5 Height (Inches): 5.00 Weight (Pounds): 144 General Appearance: lethargic, confused, agitated Lena Bob MD Jul 02, 2018 20:38
[2018-07-02] MEDS ORDERED: Ceftaroline 400 MG in NS 55 ML IV SCH (21:00)
--- NOTE | 2018-07-02 21:01 | General Progress Note ---
Assessment/Plan Assessment/Plan ASSESSMENT/RECS: 1. Pancytopenia with thrombocytopenia that is severe is most likely related to Sepsis, lactic acidosis. In addition has received heparin. US abdomen ordered and shows no spleen and no cirrhosis --> heparin discontinued --> HIT ab test ordered with venous duplex --> smear peripheral has been ordered --> tumor markers as needed/prn --> hold off on transfusion unless plt <20k --> hold off on steriods --> plt trend: 34--> 2. Failure to thrive with severe protein calorie malnutrition. ->> calorie counts daily --> consider mirtazapine as needed per pcp 3. Anemia of chronic disease --> panel has been ordered --> transfuse if hgb <7 4. Leukocytosis --> on abx as per id for infection 5. Hypertension. 6. Sick sinus syndrome. 7. Hypercholesterolemia. 8. Aortic stenosis. 9. Pulmonary hypertension. 10. Alzheimer dementia. 11. Acute tubular necrosis/acute kidney injury most likely secondary to dehydration and sepsis. Greatly appreciate consultation! Subjective Constitutional: Denies: no symptoms, chills, diaphoresis, fever, malaise, weakness, other HEENT: Denies: no symptoms, eye pain, blurred vision, tearing, double vision, ear pain, ear discharge, nose pain, nose congestion, throat pain, throat swelling, mouth pain, mouth swelling, other Cardiovascular: Denies: no symptoms, chest pain, edema, irregular heart rate, lightheadedness, palpitations, syncope, other Respiratory: Denies: no symptoms, cough, orthopnea, shortness of breath, SOB with excertion, SOB at rest, sputum, stridor, wheezing, other Gastrointestinal/Abdominal: Denies: no symptoms, abdomen distended, abdominal pain, black stools, tarry stools, blood in stool, constipated, diarrhea, difficulty swallowing, nausea, poor appetite, poor fluid intake, rectal bleeding , vomiting, other Genitourinary: Denies: no symptoms, burning, discharge, frequency, flank pain, hematuria, incontinence, pain, urgency, other Endocrine: Denies: no symptoms, excessive sweating, flushing, intolerance to cold, intolerance to heat, increased hunger, increased thirst, increased urine, unexplained weight gain, unexplained weight loss, other Hematologic/Lymphatic: Denies: no symptoms, anemia, easy bleeding, easy bruising, other Allergies: Coded Allergies: No Known Allergies (Unverified , 08/10/13) Subjective 07/01:seen by bedside, Possible EGD tomorrow to evaluate upper GI bleed, today's EGD was canceled by anesthesia, plt remains low at 34, hgb trending up . 07/02: Scheduled for EGD today,CT w/ cavitary lung lessions; placed on isolation , remains bacteremic, wbc 12. Objective Last 24 Hour Vital Signs Date Time Temp Pulse Resp B/P (MAP) Pulse Ox O2 Delivery O2 Flow Rate FiO2 07/02/18 16:00 98.1 77 22 117/56 (76) 95 07/02/18 16:00 Venturi Mask 12.0 07/02/18 15:36 83 07/02/18 14:00 Venturi Mask 12.0 07/02/18 12:00 98.6 77 22 112/85 (94) 100 07/02/18 12:00 Venturi Mask 12.0 07/02/18 11:34 95 07/02/18 08:00 99.0 91 22 109/47 (67) 100 07/02/18 08:00 Venturi Mask 12.0 07/02/18 07:36 91 07/02/18 04:00 98.1 83 32 110/43 (65) 94 07/02/18 04:00 Venturi Mask 12.0 07/02/18 03:36 91 07/02/18 00:00 Venturi Mask 12.0 07/02/18 00:00 97.9 60 32 109/62 (78) 95 07/01/18 23:36 67 Intake and Output 07/01/18 07/02/18 19:00 07:00 Intake Total 948.75 ml 708.82 ml Output Total 70 ml 500 ml Balance 878.75 ml 208.82 ml IV Total 848.75 ml 708.82 ml Other 100 ml Output Urine Total 20 ml 500 ml Gastric Drainage Total 50 ml # Voids 1 # Bowel Movements 2 2 Laboratory Tests 07/02/18 03:00: Stool Occult Blood Positive 07/02/18 04:25: White Blood Count 12.3H, Red Blood Count 2.70L, Hemoglobin 7.9L, Hematocrit 24.3L, Mean Corpuscular Volume 90, Mean Corpuscular Hemoglobin 29.2, Mean Corpuscular Hemoglobin Concent 32.4, Red Cell Distribution Width 15.0H, Platelet Count 44L, Mean Platelet Volume 11.0H, Neutrophils (%) (Auto) , Lymphocytes (%) (Auto) , Monocytes (%) (Auto) , Eosinophils (%) (Auto) , Basophils (%) (Auto) , Differential Total Cells Counted 100, Neutrophils % ( Manual) 95H, Lymphocytes % (Manual) 3L, Monocytes % (Manual) 2, Eosinophils % ( Manual) 0, Basophils % (Manual) 0, Band Neutrophils 0, Platelet Estimate DecreasedL, Platelet Morphology Normal, Anisocytosis 1+, Acanthocytes 1+, Erythrocyte Sedimentation Rate 30, Prothrombin Time 13.4H, Prothromb Time International Ratio 1.3H, Sodium Level 144, Potassium Level 3.6, Chloride Level 113H, Carbon Dioxide Level 17L, Anion Gap 14, Blood Urea Nitrogen 35H, Creatinine 1.0, Estimat Glomerular Filtration Rate , Glucose Level 137H, Calcium Level 7.1L, Phosphorus Level 4.4, Magnesium Level 1.7L, Total Bilirubin 1.5H, Direct Bilirubin 1.0H, Aspartate Amino Transf (AST/SGOT) 21, Alanine Aminotransferase (ALT/SGPT) 35, Alkaline Phosphatase 76, Lactate Dehydrogenase 320H, C-Reactive Protein, Quantitative 11.0H, Total Protein 4.3L, Albumin 1.3L, Globulin 3.0, Albumin/Globulin Ratio 0.4L, Carcinoembryonic Antigen [Pending], Blastomyces Ab Immunodiffusion [Pending], Histoplasma Mycelial Antibody [Pending ], Histoplasma Antibody w Mycelial Ag [Pending], Histoplasma Antibody with Yeast Ag [Pending] 07/02/18 12:30: TB Test (T-Spot) [Pending], TB Test Nil Control (T-Spot) [Pending], TB Test Panel A (T-Spot) [Pending], TB Test Panel B (T-Spot) [Pending], TB Test Positive Control (T-Spot) [Pending] Height (Feet): 5 Height (Inches): 5.00 Weight (Pounds): 144 Objective GENERAL: Awake responsive to deep stimuli with opening of her eyes, in no apparent distress. HEENT: Eyes, pupils equal responsive to light and accommodation. CHEST: Poor inspiratory effort, decreased air in the bases no wheezes or rhonchi was appreciated CARDIOVASCULAR: Regular rhythm and rate. S1 and S2 are normal without murmurs or gallops. ABDOMEN: Soft, nontender, and nondistended. Positive bowel sounds. No rebounding or guarding noted. EXTREMITIES: Negative for clubbing, cyanosis, or edema, muscle atrophy in bilateral lower extremity RECTAL/GENITAL: Not performed. NEUROLOGIC: Less responsive, unable to follow commands, however open her eyes with a deep stimulation, unable to evaluate for gait due to the patient's status. Kadeem Bennett MD Jul 02, 2018 21:01
[2018-07-03] VITALS: BP 114/58
[2018-07-03] MEDS: NovoLOG Insulin Flexpen SUBQ SCH ×4 (00:08→17:40)
[2018-07-03 04:00] VITALS: BP 109/87
--- NOTE | 2018-07-03 07:37 | NUR ---
HAND-OFF: Report given to SOILA Moss.
--- NOTE | 2018-07-03 07:38 | NUR ---
NURSE NOTES: Received pt. and report from SOILA Edmonds. Patient is resting in bed with both eyes open. Pt. is A/O x1; responds to name only. clinical research monitor is in placed. Pt. has a CHRISTIAN midline; currently running D5 1/2 NS @ 50cc/hr. Pt. has a NGT currently feeding Vital AF 1.2 @ 40cc/hr; goal rate of feeding is 55cc/hr. Call light and bed side table within reach, Call light on. Bed is in the lowest position with two side rails up and locked. No acute distress noted at this time. Will continue to monitor and follow plan of care.
--- NOTE | 2018-07-03 07:44 | Infectious Diseases Prog Note ---
Assessment/Plan Assessment/Plan 82 yo female with PMHx DM, CAD, Alzheimer dementia and Hip fracture who presents with dehydration and weakness. 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 Given normal appearing chest radiograph on 06/24/2018, these are overwhelmingly likely infectious/inflammatory in nature. Most likely represent septic pulmonary emboli. The possibility of mycobacterial infection should also be included, deemed less likely given absence of adenopathy but still possible. Differential considerations also include fungal infections, noninfectious inflammatory processes. Other noncavitary nodules are also demonstrated, with the same differential. Large right and [id number] left pleural effusions. Compressive atelectasis of the majority of the right lower lobe. Infiltrates seen in the right upper lobe. Bilateral pacemaker. Evidence of central venoocclusive disease. Wedge-shaped area of low-attenuation in the upper pole of the spleen, suspicious for infarct. -2d Echo (limited study due to contractures): no vegetations seen -06/27 Bcx 4/4MRSA; 06/28 Bcx 2/4 MRSA; 06/29 08/19 MRSA; 07/01 Bcx /4 GPC clusters 06/25/18 Blood Cx 08/19 MRSA 06/24/18 Wound Cx MRSA, ESBL E.coli (S ZOsyn), K. pna (S Zosyn) Leukocytosis, recurrent, increasing Low grade fever; improving Positive UA CXR neg Thrombocytopenia- HIT vs medication related Pressure ulcers Not infected Right hip fracture with hemiarthroplasty Feb 2018 DM HTN Sick sinus syndrome sp Pacemaker HLD CAD - SP UT and CABG Aortic stenosis. Pulmonary hypertension. Alzheimer dementia. PLAN - Continue Daptomycin #4 (abx d #9) and Ceftaroline #2 given persistent MRSA Bacteremia - repeat 2 sets of Bcx -06/30 SP Vancomycin #6 -06/30 SP Zosyn #4 -06/27 SP Cefepime #3 -Will need NELDA to look for endocarditis and/or PPM infection if consistent with goals of care -placed on airborne isolation -AFB s/cx x3, MTB PCR x1 - f/u repeat cultures - Monitor CBC and temps - wound care - Nutritional support -f/u cocci, crAg, histo, blasto serologies Thank you for this consult. We will continue to follow the patient during this hospitalization. Subjective Allergies: Coded Allergies: No Known Allergies (Unverified , 08/10/13) Subjective Afebrile Leukocytosis mild Objective Vital Signs Last 24 Hour Vital Signs Date Time Temp Pulse Resp B/P (MAP) Pulse Ox O2 Delivery O2 Flow Rate FiO2 07/03/18 04:00 97.7 90 20 109/87 (94) 98 07/03/18 04:00 87 07/03/18 00:00 97.7 78 22 114/58 (76) 100 07/02/18 23:25 81 07/02/18 22:15 100 Venturi Mask 12.0 50 07/02/18 22:15 Venturi Mask 12.0 50 07/02/18 22:15 84 20 Venturi Mask 12.0 50 07/02/18 21:00 Venturi Mask 12.0 07/02/18 20:00 82 07/02/18 20:00 97.0 80 20 103/63 (76) 96 07/02/18 16:00 98.1 77 22 117/56 (76) 95 07/02/18 16:00 Venturi Mask 12.0 07/02/18 15:36 83 07/02/18 14:00 Venturi Mask 12.0 07/02/18 12:00 98.6 77 22 112/85 (94) 100 07/02/18 12:00 Venturi Mask 12.0 07/02/18 11:34 95 07/02/18 08:00 99.0 91 22 109/47 (67) 100 07/02/18 08:00 Venturi Mask 12.0 Height (Feet): 5 Height (Inches): 5.00 Weight (Pounds): 144 Objective Gen: NAD, Awake HEENT: NCAT, MMM, EOMI, PERRL LUNGS: CTAB, No W CARDS: RRR, S1, S2, No M/R/G, Microbiology Date/Time Source Procedure Growth Status 07/01/18 07:45 Blood Blood Culture - Preliminary Staphylococcus Aureus Resulted 07/01/18 07:35 Blood Blood Culture - Preliminary Staphylococcus Aureus Resulted Laboratory Tests Test 07/02/18 12:30 TB Test (T-Spot) Pending TB Test Nil Control (T-Spot) Pending TB Test Panel A (T-Spot) Pending TB Test Panel B (T-Spot) Pending TB Test Positive Control (T-Spot) Pending Current Medications Medications (Trade) Dose Ordered Sig/Yi Route PRN Reason Start Time Stop Time Status Last Admin Dose Admin Acetaminophen (Tylenol) 650 mg Q4H PRN NG Mild Pain/Temp > 100.5 07/02/18 14:43 07/29/18 14:42 Ceftaroline Fosamil 400 mg/ Sodium Chloride 55 ml @ 55 mls/hr Q12HR IV 07/02/18 21:00 07/09/18 20:59 07/02/18 21:35 Clonidine HCl (Catapres Tab) 0.1 mg Q8H PRN ORAL SBP>160mmHg 07/02/18 14:43 07/25/18 14:42 Daptomycin 400 mg/ Sodium Chloride 55 ml @ 100 mls/hr Q24H IV 07/02/18 18:00 07/07/18 17:59 07/02/18 19:55 Dextrose (Dextrose 50%) 25 ml Q30M PRN IV Hypoglycemia 07/02/18 14:45 07/24/18 13:30 Dextrose (Dextrose 50%) 50 ml Q30M PRN IV hypoglycemia 07/02/18 14:45 07/24/18 13:44 Dextrose/Sodium Chloride 1,000 ml @ 50 mls/hr Q20H IV 07/02/18 14:43 07/29/18 14:42 07/02/18 15:45 Insulin Aspart (NovoLOG) EVERY 6 HOURS SUBQ 07/02/18 18:00 07/24/18 16:29 07/03/18 06:24 Iopamidol (Isovue-300 100ml) 100 ml NOW PRN INJ Radiology Procedure 07/02/18 14:43 07/03/18 14:42 Lansoprazole (Prevacid) 30 mg DAILY NG 07/03/18 09:00 08/02/18 08:59 Olanzapine (ZyPREXA) 2.5 mg BID ORAL 07/02/18 18:00 07/25/18 10:59 07/02/18 19:03 Ondansetron HCl (Zofran) 4 mg Q6H PRN IVP Nausea & Vomiting 2/15/19 14:44 07/25/18 14:43 Johnnie Alberts MD Jul 03, 2018 07:44
[2018-07-03 08:00] VITALS: BP 122/49
[2018-07-03] MEDS: OLANZapine 2.5mg tab ORAL SCH (09:23)
[2018-07-03] MEDS: Ceftaroline 400 MG in NS 55 ML IV SCH ×2 (09:24→20:57)
[2018-07-03 09:28] LABS: ALANINE AMINOTRANSFERASE 31 U/L (12-78); ALBUMIN 1.4 G/DL (3.4-5.0); ALBUMIN/GLOBULIN RATIO 0.4 (1.0-2.7); ALKALINE PHOSPHATASE 106 U/L (46-116); ANION GAP 12 mmol/L (5-15); ASPARTATE AMINO TRANSFERASE 24 U/L (15-37); BILIRUBIN,TOTAL 1.5 MG/DL (0.2-1.0); BLOOD UREA NITROGEN 30 mg/dL (7-18); CALCIUM 8.1 MG/DL (8.5-10.1); CARBON DIOXIDE 16 MMOL/L (21-32); CHLORIDE 113 MMOL/L (98-107); CREATININE 0.9 MG/DL (0.55-1.30); PHOSPHORUS 3.4 MG/DL (2.5-4.9); POTASSIUM 3.4 MMOL/L (3.5-5.1); SODIUM 141 MMOL/L (136-145)
[2018-07-03 09:29] LABS: HEMATOCRIT 26.4 % (37.0-47.0); HEMOGLOBIN 8.4 G/DL (12.0-16.0); MEAN CORPUSCULAR VOLUME 94 FL (80-99); PLATELET COUNT 49 K/UL (150-450); RED BLOOD COUNT 2.83 M/UL (4.20-5.40); RED CELL DISTRIBUTION WIDTH 15.6 % (11.6-14.8); WHITE BLOOD COUNT 12.8 K/UL (4.8-10.8)
--- NOTE | 2018-07-03 09:47 | Pulmonology Progress Note ---
Assessment/Plan Problems: (1) Sepsis (2) Thrombocytopenia (3) ATN (acute tubular necrosis) (4) Pulmonary hypertension (5) Sacral decubitus ulcer, stage III (6) Alzheimer's dementia (7) Protein-calorie malnutrition, severe (8) HTN (hypertension) (9) Pacemaker (10) CAD (coronary artery disease) Assessment/Plan on face mask /u PLT, better today failed swallow study Morphine prn d/w wound care nurse, mckeon cultures iv fluids check electrolytes sliding scale check electrolytes daily broad spectrum abx dvt prophylaxis insulin coverage. social service consult Subjective ROS Limited/Unobtainable: No Constitutional: Reports: no symptoms HEENT: Repors: no symptoms Respiratory: Reports: no symptoms Allergies: Coded Allergies: No Known Allergies (Unverified , 08/10/13) Objective Last 24 Hour Vital Signs Date Time Temp Pulse Resp B/P (MAP) Pulse Ox O2 Delivery O2 Flow Rate FiO2 07/03/18 08:49 85 20 Venturi Mask 12.0 50 07/03/18 08:49 Venturi Mask 12.0 50 07/03/18 08:49 100 Venturi Mask 12.0 50 07/03/18 08:00 97.0 69 20 122/49 (73) 100 07/03/18 04:00 97.7 90 20 109/87 (94) 98 07/03/18 04:00 87 07/03/18 00:00 97.7 78 22 114/58 (76) 100 07/02/18 23:25 81 07/02/18 22:15 100 Venturi Mask 12.0 50 07/02/18 22:15 Venturi Mask 12.0 50 07/02/18 22:15 84 20 Venturi Mask 12.0 50 07/02/18 21:00 Venturi Mask 12.0 07/02/18 20:00 82 07/02/18 20:00 97.0 80 20 103/63 (76) 96 07/02/18 16:00 98.1 77 22 117/56 (76) 95 07/02/18 16:00 Venturi Mask 12.0 07/02/18 15:36 83 07/02/18 14:00 Venturi Mask 12.0 07/02/18 12:00 98.6 77 22 112/85 (94) 100 07/02/18 12:00 Venturi Mask 12.0 07/02/18 11:34 95 Intake and Output 07/02/18 07/03/18 18:59 06:59 Intake Total 710 ml Output Total 100 ml Balance 610 ml Intake Free Water 30 ml IV Total 600 ml Tube Feeding 80 ml Output Urine Total 100 ml # Voids 2 3 # Bowel Movements 2 Objective General Appearance: cachectic HEENT: normocephalic, somnolent Respiratory/Chest: chest wall non-tender, lungs clear Cardiovascular: normal peripheral pulses, normal rate Abdomen: normal bowel sounds, soft, non tender Extremities: no cyanosis Skin: no rash Microbiology Date/Time Source Procedure Growth Status 07/01/18 07:45 Blood Blood Culture - Preliminary Staphylococcus Aureus Resulted 07/01/18 07:35 Blood Blood Culture - Preliminary Staphylococcus Aureus Resulted Laboratory Tests 07/02/18 12:30: TB Test (T-Spot) [Pending], TB Test Nil Control (T-Spot) [Pending], TB Test Panel A (T-Spot) [Pending], TB Test Panel B (T-Spot) [Pending], TB Test Positive Control (T-Spot) [Pending] 07/03/18 08:20: White Blood Count [Pending], Red Blood Count [Pending], Hemoglobin [Pending], Hematocrit [Pending], Mean Corpuscular Volume [Pending], Mean Corpuscular Hemoglobin [Pending], Mean Corpuscular Hemoglobin Concent [Pending], Red Cell Distribution Width [Pending], Platelet Count [Pending], Mean Platelet Volume [ Pending], Neutrophils (%) (Auto) [Pending], Lymphocytes (%) (Auto) [Pending], Monocytes (%) (Auto) [Pending], Eosinophils (%) (Auto) [Pending], Basophils (%) (Auto) [Pending], Erythrocyte Sedimentation Rate [Pending], Sodium Level 141, Potassium Level 3.4L, Chloride Level 113H, Carbon Dioxide Level 16L, Anion Gap 12, Blood Urea Nitrogen 30H, Creatinine 0.9, Estimat Glomerular Filtration Rate , Glucose Level 203H, Calcium Level 8.1L, Phosphorus Level 3.4, Magnesium Level 2.1, Total Bilirubin 1.5H, Direct Bilirubin [Pending], Aspartate Amino Transf ( AST/SGOT) 24, Alanine Aminotransferase (ALT/SGPT) 31, Alkaline Phosphatase 106, C-Reactive Protein, Quantitative 16.0H, Total Protein 5.0L, Albumin 1.4L, Globulin 3.6, Albumin/Globulin Ratio 0.4L Current Medications Medications (Trade) Dose Ordered Sig/Yi Route PRN Reason Start Time Stop Time Status Last Admin Dose Admin Acetaminophen (Tylenol) 650 mg Q4H PRN NG Mild Pain/Temp > 100.5 07/02/18 14:43 07/29/18 14:42 Ceftaroline Fosamil 400 mg/ Sodium Chloride 55 ml @ 55 mls/hr Q12HR IV 07/03/18 09:00 07/10/18 08:59 07/03/18 09:24 Clonidine HCl (Catapres Tab) 0.1 mg Q8H PRN ORAL SBP>160mmHg 07/02/18 14:43 07/25/18 14:42 Daptomycin 400 mg/ Sodium Chloride 55 ml @ 100 mls/hr Q24H IV 07/02/18 18:00 07/07/18 17:59 07/02/18 19:55 Dextrose (Dextrose 50%) 25 ml Q30M PRN IV Hypoglycemia 07/02/18 14:45 07/24/18 13:30 Dextrose (Dextrose 50%) 50 ml Q30M PRN IV hypoglycemia 07/02/18 14:45 07/24/18 13:44 Dextrose/Sodium Chloride 1,000 ml @ 50 mls/hr Q20H IV 07/02/18 14:43 07/29/18 14:42 07/02/18 15:45 Insulin Aspart (NovoLOG) EVERY 6 HOURS SUBQ 07/02/18 18:00 07/24/18 16:29 07/03/18 06:24 Iopamidol (Isovue-300 100ml) 100 ml NOW PRN INJ Radiology Procedure 07/02/18 14:43 07/03/18 14:42 Lansoprazole (Prevacid) 30 mg DAILY NG 07/03/18 09:00 08/02/18 08:59 07/03/18 09:24 Olanzapine (ZyPREXA) 2.5 mg BID ORAL 07/02/18 18:00 07/25/18 10:59 07/03/18 09:23 Ondansetron HCl (Zofran) 4 mg Q6H PRN IVP Nausea & Vomiting 07/02/18 14:44 07/25/18 14:43 Rod Mancera MD Jul 03, 2018 09:47
[2018-07-03 10:03] LABS: BILIRUBIN,DIRECT 0.8 MG/DL (0.0-0.3)
[2018-07-03] MEDS: D5 1/2NS 1,000 ML IV SCH (10:58)
--- NOTE | 2018-07-03 11:34 | General Progress Note ---
Assessment/Plan Problem List: (1) Severe anemia ICD Codes: D64.9 - Anemia, unspecified SNOMED: 663795933 (2) Alzheimer's dementia ICD Codes: G30.9 - Alzheimer's disease, unspecified; F02.80 - Dementia in other diseases classified elsewhere without behavioral disturbance SNOMED: 34360228 (3) Pulmonary hypertension ICD Codes: I27.20 - Pulmonary hypertension, unspecified SNOMED: 51443520 (4) Protein-calorie malnutrition, severe ICD Codes: E43 - Unspecified severe protein-calorie malnutrition SNOMED: 597097700 (5) Pacemaker ICD Codes: Z95.0 - Presence of cardiac pacemaker SNOMED: 812495479 (6) HTN (hypertension) ICD Codes: I10 - Essential (primary) hypertension SNOMED: 36383059 (7) CAD (coronary artery disease) ICD Codes: I25.10 - Atherosclerotic heart disease of cheesh-na coronary artery without angina pectoris SNOMED: 99915350 (8) Diabetes mellitus, type II ICD Codes: E11.9 - Type 2 diabetes mellitus without complications SNOMED: 18633074 Assessment/Plan EGD on hold per cardiology recs, pending NELDA on Thursday on ppi stool ob positive>> monitor H&H NGTF>> plan dc IVF if NGTF tolerated repeat labs Subjective ROS Limited/Unobtainable: No Allergies: Coded Allergies: No Known Allergies (Unverified , 08/10/13) Objective Last 24 Hour Vital Signs Date Time Temp Pulse Resp B/P (MAP) Pulse Ox O2 Delivery O2 Flow Rate FiO2 07/03/18 09:00 Venturi Mask 12.0 07/03/18 08:49 85 20 Venturi Mask 12.0 50 07/03/18 08:49 Venturi Mask 12.0 50 07/03/18 08:49 100 Venturi Mask 12.0 50 07/03/18 08:00 97.0 69 20 122/49 (73) 100 07/03/18 08:00 91 07/03/18 04:00 97.7 90 20 109/87 (94) 98 07/03/18 04:00 87 07/03/18 00:00 97.7 78 22 114/58 (76) 100 07/02/18 23:25 81 07/02/18 22:15 100 Venturi Mask 12.0 50 07/02/18 22:15 Venturi Mask 12.0 50 07/02/18 22:15 84 20 Venturi Mask 12.0 50 07/02/18 21:00 Venturi Mask 12.0 07/02/18 20:00 82 07/02/18 20:00 97.0 80 20 103/63 (76) 96 07/02/18 16:00 98.1 77 22 117/56 (76) 95 07/02/18 16:00 Venturi Mask 12.0 07/02/18 15:36 83 07/02/18 14:00 Venturi Mask 12.0 07/02/18 12:00 98.6 77 22 112/85 (94) 100 07/02/18 12:00 Venturi Mask 12.0 07/02/18 11:34 95 Intake and Output 07/02/18 07/03/18 18:59 06:59 Intake Total 710 ml Output Total 100 ml Balance 610 ml Intake Free Water 30 ml IV Total 600 ml Tube Feeding 80 ml Output Urine Total 100 ml # Voids 2 3 # Bowel Movements 2 Laboratory Tests 07/02/18 12:30: TB Test (T-Spot) [Pending], TB Test Nil Control (T-Spot) [Pending], TB Test Panel A (T-Spot) [Pending], TB Test Panel B (T-Spot) [Pending], TB Test Positive Control (T-Spot) [Pending] 07/03/18 08:20: White Blood Count 12.8H, Red Blood Count 2.83L, Hemoglobin 8.4L, Hematocrit 26.4L, Mean Corpuscular Volume 94, Mean Corpuscular Hemoglobin 29.7, Mean Corpuscular Hemoglobin Concent 31.7L, Red Cell Distribution Width 15.6H, Platelet Count 49L, Mean Platelet Volume 9.4, Neutrophils (%) (Auto) , Lymphocytes (%) (Auto) , Monocytes (%) (Auto) , Eosinophils (%) (Auto) , Basophils (%) (Auto) , Differential Total Cells Counted 100, Neutrophils % ( Manual) 94H, Lymphocytes % (Manual) 4L, Monocytes % (Manual) 2, Eosinophils % ( Manual) 0, Basophils % (Manual) 0, Band Neutrophils 0, Platelet Estimate DecreasedL, Platelet Morphology Normal, Hypochromasia 1+, Anisocytosis 1+, Erythrocyte Sedimentation Rate 40H, Sodium Level 141, Potassium Level 3.4L, Chloride Level 113H, Carbon Dioxide Level 16L, Anion Gap 12, Blood Urea Nitrogen 30H, Creatinine 0.9, Estimat Glomerular Filtration Rate , Glucose Level 203H, Calcium Level 8.1L, Phosphorus Level 3.4, Magnesium Level 2.1, Total Bilirubin 1.5H, Direct Bilirubin 0.8H, Aspartate Amino Transf (AST/SGOT) 24, Alanine Aminotransferase (ALT/SGPT) 31, Alkaline Phosphatase 106, C- Reactive Protein, Quantitative 16.0H, Total Protein 5.0L, Albumin 1.4L, Globulin 3.6, Albumin/Globulin Ratio 0.4L Height (Feet): 5 Height (Inches): 5.00 Weight (Pounds): 144 General Appearance: lethargic EENT: normal ENT inspection Neck: supple Cardiovascular: tachycardia, systolic murmur Respiratory/Chest: decreased breath sounds Abdomen: soft, hypoactive bowel sounds Extremities: non-tender Oli Wallace MD Jul 03, 2018 11:34
[2018-07-03 12:00] VITALS: BP 107/58
--- NOTE | 2018-07-03 13:21 | Cardiology Progress Note ---
Assessment/Plan Assessment/Plan staph bacteremia anemai thrombocytopenia cavitarya pulm nodule likey embolic in natuer metabolic encphalopathy multipe pacemaker generator and wires dr mina who is very familiar with this pt feel she is not a candidate for larissa at this time (to which i woudl agree) specilly now with such low plt counts iv abx supportive care watch plt and hgn for need for tx if full care is felt margo necessary i would in light of pulm cavitating lesion likey has micro embolic form eith erthe wires of right sided valve infection as a source of pulm lesion pt in pulm isolation for possible tb as well in light of pulm cavitating lesion however likely related to staph bacteremia Subjective ROS Limited/Unobtainable: Yes Objective Last 24 Hour Vital Signs Date Time Temp Pulse Resp B/P (MAP) Pulse Ox O2 Delivery O2 Flow Rate FiO2 07/03/18 12:00 97.7 90 22 107/58 (74) 100 07/03/18 09:00 Venturi Mask 12.0 07/03/18 08:49 85 20 Venturi Mask 12.0 50 07/03/18 08:49 Venturi Mask 12.0 50 07/03/18 08:49 100 Venturi Mask 12.0 50 07/03/18 08:00 97.0 69 20 122/49 (73) 100 07/03/18 08:00 91 07/03/18 04:00 97.7 90 20 109/87 (94) 98 07/03/18 04:00 87 07/03/18 00:00 97.7 78 22 114/58 (76) 100 07/02/18 23:25 81 07/02/18 22:15 100 Venturi Mask 12.0 50 07/02/18 22:15 Venturi Mask 12.0 50 07/02/18 22:15 84 20 Venturi Mask 12.0 50 07/02/18 21:00 Venturi Mask 12.0 07/02/18 20:00 82 07/02/18 20:00 97.0 80 20 103/63 (76) 96 07/02/18 16:00 98.1 77 22 117/56 (76) 95 07/02/18 16:00 Venturi Mask 12.0 07/02/18 15:36 83 07/02/18 14:00 Venturi Mask 12.0 General Appearance: no apparent distress Cardiovascular: normal rate, tachycardia Respiratory/Chest: lungs clear Abdomen: non tender, soft Extremities: moderate edema Intake and Output 07/02/18 07/03/18 18:59 06:59 Intake Total 710 ml Output Total 100 ml Balance 610 ml Intake Free Water 30 ml IV Total 600 ml Tube Feeding 80 ml Output Urine Total 100 ml # Voids 2 3 # Bowel Movements 2 Laboratory Tests Test 07/03/18 08:20 White Blood Count 12.8 K/UL (4.8-10.8) H Red Blood Count 2.83 M/UL (4.20-5.40) L Hemoglobin 8.4 G/DL (12.0-16.0) L Hematocrit 26.4 % (37.0-47.0) L Mean Corpuscular Volume 94 FL (80-99) Mean Corpuscular Hemoglobin 29.7 PG (27.0-31.0) Mean Corpuscular Hemoglobin Concent 31.7 G/DL (32.0-36.0) L Red Cell Distribution Width 15.6 % (11.6-14.8) H Platelet Count 49 K/UL (150-450) L Mean Platelet Volume 9.4 FL (6.5-10.1) Neutrophils (%) (Auto) % (45.0-75.0) Lymphocytes (%) (Auto) % (20.0-45.0) Monocytes (%) (Auto) % (1.0-10.0) Eosinophils (%) (Auto) % (0.0-3.0) Basophils (%) (Auto) % (0.0-2.0) Differential Total Cells Counted 100 Neutrophils % (Manual) 94 % (45-75) H Lymphocytes % (Manual) 4 % (20-45) L Monocytes % (Manual) 2 % (1-10) Eosinophils % (Manual) 0 % (0-3) Basophils % (Manual) 0 % (0-2) Band Neutrophils 0 % (0-8) Platelet Estimate Decreased L Platelet Morphology Normal Hypochromasia 1+ Anisocytosis 1+ Erythrocyte Sedimentation Rate 40 MM/HR (0-30) H Sodium Level 141 MMOL/L (136-145) Potassium Level 3.4 MMOL/L (3.5-5.1) L Chloride Level 113 MMOL/L (98-107) H Carbon Dioxide Level 16 MMOL/L (21-32) L Anion Gap 12 mmol/L (5-15) Blood Urea Nitrogen 30 mg/dL (7-18) H Creatinine 0.9 MG/DL (0.55-1.30) Estimat Glomerular Filtration Rate mL/min (>60) Glucose Level 203 MG/DL (74-106) H Calcium Level 8.1 MG/DL (8.5-10.1) L Phosphorus Level 3.4 MG/DL (2.5-4.9) Magnesium Level 2.1 MG/DL (1.8-2.4) Total Bilirubin 1.5 MG/DL (0.2-1.0) H Direct Bilirubin 0.8 MG/DL (0.0-0.3) H Aspartate Amino Transf (AST/SGOT) 24 U/L (15-37) Alanine Aminotransferase (ALT/SGPT) 31 U/L (12-78) Alkaline Phosphatase 106 U/L (46-116) C-Reactive Protein, Quantitative 16.0 mg/dL (0.00-0.90) H Total Protein 5.0 G/DL (6.4-8.2) L Albumin 1.4 G/DL (3.4-5.0) L Globulin 3.6 g/dL Albumin/Globulin Ratio 0.4 (1.0-2.7) L Microbiology Date/Time Source Procedure Growth Status 07/01/18 07:45 Blood Blood Culture - Preliminary Staphylococcus Aureus Resulted 07/01/18 07:35 Blood Blood Culture - Preliminary Staphylococcus Aureus Resulted Ihsan Fischer MD Jul 03, 2018 13:21
[2018-07-03 16:00] VITALS: BP 131/56
--- NOTE | 2018-07-03 16:05 | Surgery Progress Note ---
Surgery Progress Note Subjective Additional Comments leukocytosis. ESR elevated. exam unchanged. ng tube feeds. Objective Last 24 Hour Vital Signs Date Time Temp Pulse Resp B/P (MAP) Pulse Ox O2 Delivery O2 Flow Rate FiO2 07/03/18 12:00 97.7 90 22 107/58 (74) 100 07/03/18 09:00 Venturi Mask 12.0 07/03/18 08:49 85 20 Venturi Mask 12.0 50 07/03/18 08:49 Venturi Mask 12.0 50 07/03/18 08:49 100 Venturi Mask 12.0 50 07/03/18 08:00 97.0 69 20 122/49 (73) 100 07/03/18 08:00 91 07/03/18 04:00 97.7 90 20 109/87 (94) 98 07/03/18 04:00 87 07/03/18 00:00 97.7 78 22 114/58 (76) 100 07/02/18 23:25 81 07/02/18 22:15 100 Venturi Mask 12.0 50 07/02/18 22:15 Venturi Mask 12.0 50 07/02/18 22:15 84 20 Venturi Mask 12.0 50 07/02/18 21:00 Venturi Mask 12.0 07/02/18 20:00 82 07/02/18 20:00 97.0 80 20 103/63 (76) 96 I&O Intake and Output 07/02/18 07/03/18 18:59 06:59 Intake Total 710 ml Output Total 100 ml Balance 610 ml Intake Free Water 30 ml IV Total 600 ml Tube Feeding 80 ml Output Urine Total 100 ml # Voids 2 3 # Bowel Movements 2 Dressing: saturated Wound: other Drains: other Cardiovascular: RSR Respiratory: decreased breath sounds Abdomen: soft, present bowel sounds Extremities: other Laboratory Tests Test 07/03/18 08:20 White Blood Count 12.8 K/UL (4.8-10.8) H Red Blood Count 2.83 M/UL (4.20-5.40) L Hemoglobin 8.4 G/DL (12.0-16.0) L Hematocrit 26.4 % (37.0-47.0) L Mean Corpuscular Volume 94 FL (80-99) Mean Corpuscular Hemoglobin 29.7 PG (27.0-31.0) Mean Corpuscular Hemoglobin Concent 31.7 G/DL (32.0-36.0) L Red Cell Distribution Width 15.6 % (11.6-14.8) H Platelet Count 49 K/UL (150-450) L Mean Platelet Volume 9.4 FL (6.5-10.1) Neutrophils (%) (Auto) % (45.0-75.0) Lymphocytes (%) (Auto) % (20.0-45.0) Monocytes (%) (Auto) % (1.0-10.0) Eosinophils (%) (Auto) % (0.0-3.0) Basophils (%) (Auto) % (0.0-2.0) Differential Total Cells Counted 100 Neutrophils % (Manual) 94 % (45-75) H Lymphocytes % (Manual) 4 % (20-45) L Monocytes % (Manual) 2 % (1-10) Eosinophils % (Manual) 0 % (0-3) Basophils % (Manual) 0 % (0-2) Band Neutrophils 0 % (0-8) Platelet Estimate Decreased L Platelet Morphology Normal Hypochromasia 1+ Anisocytosis 1+ Erythrocyte Sedimentation Rate 40 MM/HR (0-30) H Sodium Level 141 MMOL/L (136-145) Potassium Level 3.4 MMOL/L (3.5-5.1) L Chloride Level 113 MMOL/L (98-107) H Carbon Dioxide Level 16 MMOL/L (21-32) L Anion Gap 12 mmol/L (5-15) Blood Urea Nitrogen 30 mg/dL (7-18) H Creatinine 0.9 MG/DL (0.55-1.30) Estimat Glomerular Filtration Rate mL/min (>60) Glucose Level 203 MG/DL (74-106) H Calcium Level 8.1 MG/DL (8.5-10.1) L Phosphorus Level 3.4 MG/DL (2.5-4.9) Magnesium Level 2.1 MG/DL (1.8-2.4) Total Bilirubin 1.5 MG/DL (0.2-1.0) H Direct Bilirubin 0.8 MG/DL (0.0-0.3) H Aspartate Amino Transf (AST/SGOT) 24 U/L (15-37) Alanine Aminotransferase (ALT/SGPT) 31 U/L (12-78) Alkaline Phosphatase 106 U/L (46-116) C-Reactive Protein, Quantitative 16.0 mg/dL (0.00-0.90) H Total Protein 5.0 G/DL (6.4-8.2) L Albumin 1.4 G/DL (3.4-5.0) L Globulin 3.6 g/dL Albumin/Globulin Ratio 0.4 (1.0-2.7) L Plan Problems: (1) Sepsis Assessment & Plan: Leukocytosis resolved LFT's elevated w/ t bili / d bili - improved AM labs ordered hydrate US Impression: Limited exam, as described. Note inability to visualize the spleen Negative for gallstones or dilated bile ducts Questionable bilateral renal parapelvic cysts Small to moderate right pleural effusion no acute surgical intervention planned. NELDA this week for septic emboli tube feeds as tolerated will follow with recs. (2) Sacral decubitus ulcer, stage III Assessment & Plan: DTPI sacrum.Maroon- indurated discoloration with opening at sacral coccygeal area(L)3.8cm x (W)1.4cm with entire wound measuring (L)10cmx(W) 12cm.Small amt malodorous brown exudate. Stable dry eschar R heel with dry peeling skin periwound (L)2cm x (W)3.5cm. Periwound is also red and boggy. Small dry eschar noted to lateral R 5th metatarsal (L)1.4cm x (W)0.3cm. L heel is boggy but colour is dusky . Resolving skin tear lateral R tibia. Wound bed is clean and dry. Tx. Plan: Cleanse Sacral wound with Saline.Apply Therahoney to opening at sacrococcygeal area.Cavilon skin barrier to DTPI. Cover with Optifoam drsg .Change Daily and prn. Apply Betadine to R heel and Lateral R 5th metatarsal.Cover with Abd pad .Wrap with kerlix daily and prn. Apply Cavilon Skin Barrier to L heel.Cover with Optifoam drsg .Change every 7 days and prn. Reposition at least every 2hours or as tolerated. Off-load heels with pillow. (3) Rectal bleed (4) Protein-calorie malnutrition, severe (5) Dehydration Sher Younger Jul 03, 2018 16:05
[2018-07-03] MEDS: OLANZapine 2.5mg tab NG SCH (17:39)
--- NOTE | 2018-07-03 18:05 | Cardiology Progress Note ---
Subjective Subjective [id number] Objective Last 24 Hour Vital Signs Date Time Temp Pulse Resp B/P (MAP) Pulse Ox O2 Delivery O2 Flow Rate FiO2 07/03/18 16:00 85 07/03/18 16:00 96.8 87 20 131/56 (81) 100 07/03/18 12:00 97.7 90 22 107/58 (74) 100 07/03/18 12:00 93 07/03/18 09:00 Venturi Mask 12.0 07/03/18 08:49 85 20 Venturi Mask 12.0 50 07/03/18 08:49 Venturi Mask 12.0 50 07/03/18 08:49 100 Venturi Mask 12.0 50 07/03/18 08:00 97.0 69 20 122/49 (73) 100 07/03/18 08:00 91 07/03/18 04:00 97.7 90 20 109/87 (94) 98 07/03/18 04:00 87 07/03/18 00:00 97.7 78 22 114/58 (76) 100 07/02/18 23:25 81 07/02/18 22:15 100 Venturi Mask 12.0 50 07/02/18 22:15 Venturi Mask 12.0 50 07/02/18 22:15 84 20 Venturi Mask 12.0 50 07/02/18 21:00 Venturi Mask 12.0 07/02/18 20:00 82 07/02/18 20:00 97.0 80 20 103/63 (76) 96 Intake and Output 07/02/18 07/03/18 19:00 07:00 Intake Total 710 ml Output Total 100 ml Balance 610 ml Intake Free Water 30 ml IV Total 600 ml Tube Feeding 80 ml Output Urine Total 100 ml # Voids 2 3 # Bowel Movements 2 Laboratory Tests Test 07/03/18 08:20 White Blood Count 12.8 K/UL (4.8-10.8) H Red Blood Count 2.83 M/UL (4.20-5.40) L Hemoglobin 8.4 G/DL (12.0-16.0) L Hematocrit 26.4 % (37.0-47.0) L Mean Corpuscular Volume 94 FL (80-99) Mean Corpuscular Hemoglobin 29.7 PG (27.0-31.0) Mean Corpuscular Hemoglobin Concent 31.7 G/DL (32.0-36.0) L Red Cell Distribution Width 15.6 % (11.6-14.8) H Platelet Count 49 K/UL (150-450) L Mean Platelet Volume 9.4 FL (6.5-10.1) Neutrophils (%) (Auto) % (45.0-75.0) Lymphocytes (%) (Auto) % (20.0-45.0) Monocytes (%) (Auto) % (1.0-10.0) Eosinophils (%) (Auto) % (0.0-3.0) Basophils (%) (Auto) % (0.0-2.0) Differential Total Cells Counted 100 Neutrophils % (Manual) 94 % (45-75) H Lymphocytes % (Manual) 4 % (20-45) L Monocytes % (Manual) 2 % (1-10) Eosinophils % (Manual) 0 % (0-3) Basophils % (Manual) 0 % (0-2) Band Neutrophils 0 % (0-8) Platelet Estimate Decreased L Platelet Morphology Normal Hypochromasia 1+ Anisocytosis 1+ Erythrocyte Sedimentation Rate 40 MM/HR (0-30) H Sodium Level 141 MMOL/L (136-145) Potassium Level 3.4 MMOL/L (3.5-5.1) L Chloride Level 113 MMOL/L (98-107) H Carbon Dioxide Level 16 MMOL/L (21-32) L Anion Gap 12 mmol/L (5-15) Blood Urea Nitrogen 30 mg/dL (7-18) H Creatinine 0.9 MG/DL (0.55-1.30) Estimat Glomerular Filtration Rate mL/min (>60) Glucose Level 203 MG/DL (74-106) H Calcium Level 8.1 MG/DL (8.5-10.1) L Phosphorus Level 3.4 MG/DL (2.5-4.9) Magnesium Level 2.1 MG/DL (1.8-2.4) Total Bilirubin 1.5 MG/DL (0.2-1.0) H Direct Bilirubin 0.8 MG/DL (0.0-0.3) H Aspartate Amino Transf (AST/SGOT) 24 U/L (15-37) Alanine Aminotransferase (ALT/SGPT) 31 U/L (12-78) Alkaline Phosphatase 106 U/L (46-116) C-Reactive Protein, Quantitative 16.0 mg/dL (0.00-0.90) H Total Protein 5.0 G/DL (6.4-8.2) L Albumin 1.4 G/DL (3.4-5.0) L Globulin 3.6 g/dL Albumin/Globulin Ratio 0.4 (1.0-2.7) L Microbiology Date/Time Source Procedure Growth Status 07/01/18 07:45 Blood Blood Culture - Preliminary Staphylococcus Aureus Resulted 07/01/18 07:35 Blood Blood Culture - Preliminary Staphylococcus Aureus Resulted Karol Oliver MD Jul 03, 2018 18:05
[2018-07-03] MEDS: DAPTOmycin 400 MG in NS 55 ML IV SCH (18:14)
--- NOTE | 2018-07-03 18:47 | Internal Med Progress Note ---
Subjective Date of Service: Jul 03, 2018 Physician Name Aquilino Matthews Attending Physician Carlos Alberto Berkowitz MD Current Medications Medications (Trade) Dose Ordered Sig/Yi Route PRN Reason Start Time Stop Time Status Last Admin Dose Admin Acetaminophen (Tylenol) 650 mg Q4H PRN NG Mild Pain/Temp > 100.5 07/02/18 14:43 07/29/18 14:42 Ceftaroline Fosamil 400 mg/ Sodium Chloride 55 ml @ 55 mls/hr Q12HR IV 07/03/18 09:00 07/10/18 08:59 07/03/18 09:24 Clonidine HCl (Catapres Tab) 0.1 mg Q8H PRN NG SBP>160mmHg 07/03/18 14:00 07/25/18 13:59 Daptomycin 400 mg/ Sodium Chloride 55 ml @ 100 mls/hr Q24H IV 07/02/18 18:00 07/07/18 17:59 07/03/18 18:14 Dextrose (Dextrose 50%) 25 ml Q30M PRN IV Hypoglycemia 07/02/18 14:45 07/24/18 13:30 Dextrose (Dextrose 50%) 50 ml Q30M PRN IV hypoglycemia 07/02/18 14:45 07/24/18 13:44 Dextrose/Sodium Chloride 1,000 ml @ 50 mls/hr Q20H IV 07/02/18 14:43 07/29/18 14:42 07/03/18 10:58 Insulin Aspart (NovoLOG) EVERY 6 HOURS SUBQ 07/02/18 18:00 07/24/18 16:29 07/03/18 17:40 Lansoprazole (Prevacid) 30 mg DAILY NG 07/03/18 09:00 08/02/18 08:59 07/03/18 09:24 Olanzapine (ZyPREXA) 2.5 mg BID NG 07/03/18 18:00 07/25/18 10:59 07/03/18 17:39 Ondansetron HCl (Zofran) 4 mg Q6H PRN IVP Nausea & Vomiting 07/02/18 14:44 07/25/18 14:43 Allergies: Coded Allergies: No Known Allergies (Unverified , 08/10/13) ROS Limited/Unobtainable: Yes Subjective 82 YO F admitted with dehydration and hypoxia. Now sepsis. Cover for Int Med- Dr Woo. MATTI. Continues on venturi mask Objective Last Vital Signs Date Time Temp Pulse Resp B/P (MAP) Pulse Ox O2 Delivery O2 Flow Rate FiO2 07/03/18 16:00 85 07/03/18 16:00 96.8 20 131/56 (81) 100 07/03/18 09:00 Venturi Mask 12.0 07/03/18 08:49 50 Laboratory Tests Test 07/03/18 08:20 White Blood Count 12.8 K/UL (4.8-10.8) H Red Blood Count 2.83 M/UL (4.20-5.40) L Hemoglobin 8.4 G/DL (12.0-16.0) L Hematocrit 26.4 % (37.0-47.0) L Mean Corpuscular Volume 94 FL (80-99) Mean Corpuscular Hemoglobin 29.7 PG (27.0-31.0) Mean Corpuscular Hemoglobin Concent 31.7 G/DL (32.0-36.0) L Red Cell Distribution Width 15.6 % (11.6-14.8) H Platelet Count 49 K/UL (150-450) L Mean Platelet Volume 9.4 FL (6.5-10.1) Neutrophils (%) (Auto) % (45.0-75.0) Lymphocytes (%) (Auto) % (20.0-45.0) Monocytes (%) (Auto) % (1.0-10.0) Eosinophils (%) (Auto) % (0.0-3.0) Basophils (%) (Auto) % (0.0-2.0) Differential Total Cells Counted 100 Neutrophils % (Manual) 94 % (45-75) H Lymphocytes % (Manual) 4 % (20-45) L Monocytes % (Manual) 2 % (1-10) Eosinophils % (Manual) 0 % (0-3) Basophils % (Manual) 0 % (0-2) Band Neutrophils 0 % (0-8) Platelet Estimate Decreased L Platelet Morphology Normal Hypochromasia 1+ Anisocytosis 1+ Erythrocyte Sedimentation Rate 40 MM/HR (0-30) H Sodium Level 141 MMOL/L (136-145) Potassium Level 3.4 MMOL/L (3.5-5.1) L Chloride Level 113 MMOL/L (98-107) H Carbon Dioxide Level 16 MMOL/L (21-32) L Anion Gap 12 mmol/L (5-15) Blood Urea Nitrogen 30 mg/dL (7-18) H Creatinine 0.9 MG/DL (0.55-1.30) Estimat Glomerular Filtration Rate mL/min (>60) Glucose Level 203 MG/DL (74-106) H Calcium Level 8.1 MG/DL (8.5-10.1) L Phosphorus Level 3.4 MG/DL (2.5-4.9) Magnesium Level 2.1 MG/DL (1.8-2.4) Total Bilirubin 1.5 MG/DL (0.2-1.0) H Direct Bilirubin 0.8 MG/DL (0.0-0.3) H Aspartate Amino Transf (AST/SGOT) 24 U/L (15-37) Alanine Aminotransferase (ALT/SGPT) 31 U/L (12-78) Alkaline Phosphatase 106 U/L (46-116) C-Reactive Protein, Quantitative 16.0 mg/dL (0.00-0.90) H Total Protein 5.0 G/DL (6.4-8.2) L Albumin 1.4 G/DL (3.4-5.0) L Globulin 3.6 g/dL Albumin/Globulin Ratio 0.4 (1.0-2.7) L Microbiology Date/Time Source Procedure Growth Status 07/01/18 07:45 Blood Blood Culture - Preliminary Staphylococcus Aureus Resulted 07/01/18 07:35 Blood Blood Culture - Preliminary Staphylococcus Aureus Resulted Intake and Output 07/02/18 07/03/18 19:00 07:00 Intake Total 710 ml Output Total 100 ml Balance 610 ml Intake Free Water 30 ml IV Total 600 ml Tube Feeding 80 ml Output Urine Total 100 ml # Voids 2 3 # Bowel Movements 2 Objective Objective General: No acute distress, awake and less responsive, Sleepy, cachectic. HEENT: NCAT, sclera anicteric, PERRL, NG tube. Neck: Supple, no significant jugular venous distention, Lungs: Non-rebreather mask; Poor inspiratory effort, decreased air in the bases , Bilateral Wheeze and Rales. Heart: Regular rate and rhythm, normal S1/S2, no murmur. Abdomen: soft, nontender, nondistended. Normoactive bowel sounds. / Rectal: Refused and deferred. Extremities: No Cyanosis , No clubbing, Left UE edema. Lateral lower extremity / feet dressing intact. Neuro: A&O x 1, Able to move all extremities Skin: warm, no rashes or lesions, ecchymosis in bilateral upper extremity noted. Assessment/Plan Assessment/Plan Assessment/Plan Assessment/Plan 1. Sepsis / METHACILLIN RESISTANT STAPHYLOCOCCUS AUREUS bacteremia, lactic acidosis. 2. Failure to thrive with severe protein calorie malnutrition. 3. Coronary artery disease. 4. Diabetes, type 2. 5. Hypertension. 6. Sick sinus syndrome. 7. Hypercholesterolemia. 8. Aortic stenosis. 9. Pulmonary hypertension. 10. Alzheimer dementia. 11. Acute tubular necrosis/acute kidney injury most likely secondary to dehydration and sepsis. 12. Sacral decubitus ulcer, stage III 13. Severe dehydration 14. Hypokalemia. 15. Abnormal liver function test 16. Anemia/thrombocytopenia 17. Bilateral pneumonia ?septic emboli? TREATMENT: 1. Patient on broad spectrum antibiotics with vancomycin and Zosyn IV. Will require transesophageal echocardiogram to R/O endocarditis-see ID note 2. Coronary artery disease. The patient is status post coronary artery bypass graft in 2017. 3. Diabetes, type 2. The patient has been started on NovoLog sliding scale. 4. Hypertension. The patient is to continue on atenolol and losartan as above. 5. Sick sinus syndrome. The patient is status post pacemaker implantation. 6. Hypercholesterolemia. Continue simvastatin as above. 7. Aortic stenosis. 8. Pulmonary hypertension. 9. Alzheimer dementia. 10. Anemia/thrombocytopenia-S/P 1 unit PRBC on 06/28/18. Heme/Onc consult. Hold heparin 11. Septic pulmonary emboli-await NELDA on Thursday07/06/18-see cardiology note. Restart tube feeding at rate of 45 cc/hr. CODE STATUS is full code as per ARLET, DVT prophylaxis: D/C Heparin subcu due to thrombocytopenia Aquilino Matthews MD Jul 03, 2018 18:47
--- NOTE | 2018-07-03 19:41 | NUR ---
HAND-OFF: Report given to Magaly. Addendum: 07/03/18 at 1945 by HERMAN PRIDE RN RN SOILA
[2018-07-03 20:00] VITALS: BP 137/75
--- NOTE | 2018-07-03 20:15 | NUR ---
NURSE NOTES: received pt AAOx1 pt on bed . no acute distress noted at this time. fall measures in place. will continue to monitor.
--- NOTE | 2018-07-03 22:09 | General Progress Note ---
Assessment/Plan Problem List: (1) Acute encephalopathy Assessment & Plan: metabolic ICD Codes: G93.40 - Encephalopathy, unspecified SNOMED: 55304666, [id number] (2) Delirium ICD Codes: R41.0 - Disorientation, unspecified SNOMED: 0020822 (3) Alzheimer's dementia ICD Codes: G30.9 - Alzheimer's disease, unspecified; F02.80 - Dementia in other diseases classified elsewhere without behavioral disturbance SNOMED: 73609151 Assessment/Plan Zyprexa the pt lacks capacity soft restraints if needed Subjective Allergies: Coded Allergies: No Known Allergies (Unverified , 08/10/13) Subjective cont to be agitated Objective Last 24 Hour Vital Signs Date Time Temp Pulse Resp B/P (MAP) Pulse Ox O2 Delivery O2 Flow Rate FiO2 07/03/18 20:00 96.8 79 20 137/75 (95) 100 07/03/18 20:00 71 07/03/18 16:00 85 07/03/18 16:00 96.8 87 20 131/56 (81) 100 07/03/18 12:00 97.7 90 22 107/58 (74) 100 07/03/18 12:00 93 07/03/18 09:00 Venturi Mask 12.0 07/03/18 08:49 85 20 Venturi Mask 12.0 50 07/03/18 08:49 Venturi Mask 12.0 50 07/03/18 08:49 100 Venturi Mask 12.0 50 07/03/18 08:00 97.0 69 20 122/49 (73) 100 07/03/18 08:00 91 07/03/18 04:00 97.7 90 20 109/87 (94) 98 07/03/18 04:00 87 07/03/18 00:00 97.7 78 22 114/58 (76) 100 07/02/18 23:25 81 07/02/18 22:15 100 Venturi Mask 12.0 50 07/02/18 22:15 Venturi Mask 12.0 50 07/02/18 22:15 84 20 Venturi Mask 12.0 50 Intake and Output 07/02/18 07/03/18 19:00 07:00 Intake Total 710 ml Output Total 100 ml Balance 610 ml Intake Free Water 30 ml IV Total 600 ml Tube Feeding 80 ml Output Urine Total 100 ml # Voids 2 3 # Bowel Movements 2 Laboratory Tests 07/03/18 08:20: White Blood Count 12.8H, Red Blood Count 2.83L, Hemoglobin 8.4L, Hematocrit 26.4L, Mean Corpuscular Volume 94, Mean Corpuscular Hemoglobin 29.7, Mean Corpuscular Hemoglobin Concent 31.7L, Red Cell Distribution Width 15.6H, Platelet Count 49L, Mean Platelet Volume 9.4, Neutrophils (%) (Auto) , Lymphocytes (%) (Auto) , Monocytes (%) (Auto) , Eosinophils (%) (Auto) , Basophils (%) (Auto) , Differential Total Cells Counted 100, Neutrophils % ( Manual) 94H, Lymphocytes % (Manual) 4L, Monocytes % (Manual) 2, Eosinophils % ( Manual) 0, Basophils % (Manual) 0, Band Neutrophils 0, Platelet Estimate DecreasedL, Platelet Morphology Normal, Hypochromasia 1+, Anisocytosis 1+, Erythrocyte Sedimentation Rate 40H, Sodium Level 141, Potassium Level 3.4L, Chloride Level 113H, Carbon Dioxide Level 16L, Anion Gap 12, Blood Urea Nitrogen 30H, Creatinine 0.9, Estimat Glomerular Filtration Rate , Glucose Level 203H, Calcium Level 8.1L, Phosphorus Level 3.4, Magnesium Level 2.1, Total Bilirubin 1.5H, Direct Bilirubin 0.8H, Aspartate Amino Transf (AST/SGOT) 24, Alanine Aminotransferase (ALT/SGPT) 31, Alkaline Phosphatase 106, C- Reactive Protein, Quantitative 16.0H, Total Protein 5.0L, Albumin 1.4L, Globulin 3.6, Albumin/Globulin Ratio 0.4L Height (Feet): 5 Height (Inches): 5.00 Weight (Pounds): 144 General Appearance: no apparent distress, confused, agitated Lena Bob MD Jul 03, 2018 22:09
--- NOTE | 2018-07-03 23:30 | Consultation ---
DATE OF CONSULTATION: 07/02/2018 CARDIOLOGY CONSULTATION CONSULTING PHYSICIAN: Karol Oliver M.D. REFERRING PHYSICIAN: Carlos Alberto Berkowitz M.D. REASON FOR EVALUATION: Bacteremia. HISTORY OF PRESENT ILLNESS: This is a very unfortunate 82-year-old female who was brought from residential with failure to thrive for oral intake, confusion, bedridden status, and dehydration. The patient was cultured. Blood cultures revealed positive for Staph aureus in multiple samples. The patient is well known to me in the past. She is the patient with hypertension and pacemaker, which first one was placed remotely 10 years ago and the second one was placed in 2016 in October by myself. Subsequently, the patient also had coronary artery disease and she had coronary intervention with stent placement in the LAD and circumflex with acute coronary syndrome that happened in November 2017, both of these procedures were done at [facility]. I will of this patient. Previously, she also had evidence of GI bleed and DVT and then apparently was placed. REVIEW OF SYSTEMS: Unobtainable because she is totally confused and nonresponsive. PHYSICAL EXAMINATION: GENERAL: Revealed extremely ill, moribund-appearing, cachectic female who is moaning. She is not opening her eyes. She is bedridden. She has very dry mucosa. VITAL SIGNS: Blood pressure 103/70, heart rate is 80, pulse oximetry 96%, and temperature is 97.7. HEENT: She has very dry mucosa. She has NG-tube in her nose which has some crusted blood around it. NECK: Her neck veins are flat and her carotid upstroke is diminished, low amplitude, but normal upstroke. LUNGS: She has crackles bilaterally. HEART: Very distant because of the moaning and has slightly accented A2. CHEST: There is no any rash on her chest, but she is cachectic with a breast bone sticking out and is visualized. ABDOMEN: Soft, scaphoid, tender throughout. It is difficult to say where is the tenderness because the patient is moaning with every touch and she has some decubital ulcers on the sacral area and the heels. LABORATORY AND DIAGNOSTIC DATA: Her EKG showed atrial-paced rhythm intermittent with sinus rhythm. The laboratory numbers from the beginning remarkable for elevated white count to 14.6, hemoglobin 10, and platelets 105,000. At present time, her hemoglobin is 8.7, WBC 8.1, and platelets are 36,000. The patient's chemistry remarkable for sodium 144, potassium 3.6, chloride 113, BUN 35, and creatinine 1. These are all numbers from July 02. Blood sugar was 137, bilirubin 1.5. Her INR is 1.3. Her chest x-ray was done and it revealed on June 28, bilateral infiltrates, comment about nasogastric tube. The patient also underwent a CAT scan of the abdomen and pelvis and it revealed large right pleural effusion and multiple cavitary pulmonary parenchymal lesions, probably infectious and inflammatory in nature, possible septic pulmonary emboli. TB could not be ruled out either. There is some minimum cavitary nodules as well. She has anasarca, ascites, and severe edema. Her echocardiogram which was done on June 27, reveals inferolateral akinesis and flattened interventricular septum, normally moving anterior wall suspicious for old anteroinferior infarct, ejection fraction assessed was approximately 40%. IMPRESSION AND RECOMMENDATION: This patient is septic. She is extremely malnourished, bedridden, and cachectic. 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 She probably has infected pacemaker lead I think. She has 2 pacemakers, one on the left side and one on the right side. Because the left-sided pacemaker was placed previously by unknown head operator and so the ventricular lead was mistakenly placed in coronary sinus, so I put a new set of this one and a half year ago on the right side and then the plan was to remove the previous pacemaker on the left side, but the patient never showed up for followup and so I am pretty confident that she unfortunately has vegetations on her pacemaker leads, however, at present time, she is in critical moribund type of condition with extreme malnutrition, sepsis, and respiratory failure and she should be treated with antibiotics to stabilize her because she is not a candidate for surgery definitely at this time considering her general condition. 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 She is not a candidate for transesophageal echo at this time as well in my opinion and this is very very ill patient with terrible prognosis. That is going to be discussed with primary care physician. IV antibiotics versus palliative care should be considered at present time. Thank you very much for your consult. Karol Oliver M.D. DR: Nena JOB#: [id number] CC:
[2018-07-04] VITALS (8 sets, daily range): BP systolic 107–141; BP diastolic 44–78
[2018-07-04] MEDS: NovoLOG Insulin Flexpen SUBQ SCH ×4 (00:55→18:17)
--- NOTE | 2018-07-04 00:55 | NUR ---
NURSE NOTES: Patient's blood sugar noted to be 67. Increased Glucerna 1.2 tube feeding rate to 40 mls/hr for a goal of 55 mls/hr. No residual noted. Will continue to monitor patient.
[2018-07-04] MEDS: D5 1/2NS 1,000 ML IV SCH (06:17)
--- NOTE | 2018-07-04 07:46 | NUR ---
HAND-OFF: Report given to SOILA Garcia and Onelia RN. Patient is awake lying semi-sky's; resting comfortably. In stable condition.
--- NOTE | 2018-07-04 07:57 | NUR ---
NURSE NOTES: Received report from Magaly/SOILA. Patient AAOx1 pt on bed. Lab is taking blood at this time No acute distress noted, fall measures in place bed is in low position, call light in reach. will continue to monitor.
[2018-07-04 08:23] LABS: HEMATOCRIT 24.3 % (37.0-47.0); HEMOGLOBIN 7.8 G/DL (12.0-16.0); MEAN CORPUSCULAR VOLUME 92 FL (80-99); PLATELET COUNT 55 K/UL (150-450); RED BLOOD COUNT 2.63 M/UL (4.20-5.40); RED CELL DISTRIBUTION WIDTH 16.2 % (11.6-14.8); WHITE BLOOD COUNT 11.7 K/UL (4.8-10.8)
[2018-07-04 08:46] LABS: ANION GAP 11 mmol/L (5-15); BLOOD UREA NITROGEN 23 mg/dL (7-18); CALCIUM 7.8 MG/DL (8.5-10.1); CARBON DIOXIDE 19 MMOL/L (21-32); CHLORIDE 114 MMOL/L (98-107); CREATININE 0.7 MG/DL (0.55-1.30); POTASSIUM 4.4 MMOL/L (3.5-5.1); SODIUM 144 MMOL/L (136-145)
[2018-07-04] MEDS: Ceftaroline 400 MG in NS 55 ML IV SCH ×2 (09:17→20:49)
[2018-07-04] MEDS: OLANZapine 2.5mg tab NG SCH ×2 (09:18→18:04)
--- NOTE | 2018-07-04 11:29 | NUR ---
NURSE NOTES: Called granddaughter Celine Bernal ([phone]) to get a consent for blood transfusion and left a message
--- NOTE | 2018-07-04 12:01 | General Progress Note ---
Assessment/Plan Problem List: (1) Severe anemia ICD Codes: D64.9 - Anemia, unspecified SNOMED: 618546384 (2) Alzheimer's dementia ICD Codes: G30.9 - Alzheimer's disease, unspecified; F02.80 - Dementia in other diseases classified elsewhere without behavioral disturbance SNOMED: 73654992 (3) Pulmonary hypertension ICD Codes: I27.20 - Pulmonary hypertension, unspecified SNOMED: 27749290 (4) Protein-calorie malnutrition, severe ICD Codes: E43 - Unspecified severe protein-calorie malnutrition SNOMED: 901199645 (5) Pacemaker ICD Codes: Z95.0 - Presence of cardiac pacemaker SNOMED: 755089058 (6) HTN (hypertension) ICD Codes: I10 - Essential (primary) hypertension SNOMED: 36508507 (7) CAD (coronary artery disease) ICD Codes: I25.10 - Atherosclerotic heart disease of [place] coronary artery without angina pectoris SNOMED: 03612382 (8) Diabetes mellitus, type II ICD Codes: E11.9 - Type 2 diabetes mellitus without complications SNOMED: 21740655 Assessment/Plan EGD on hold per cardiology recs, pending NELDA on Thursday on ppi stool ob positive>> monitor H&H NGTF repeat labs Subjective ROS Limited/Unobtainable: No Allergies: Coded Allergies: No Known Allergies (Unverified , 08/10/13) Objective Last 24 Hour Vital Signs Date Time Temp Pulse Resp B/P (MAP) Pulse Ox O2 Delivery O2 Flow Rate FiO2 07/04/18 10:12 Venturi Mask 12.0 07/04/18 08:11 88 18 Non-Rebreather 15.0 07/04/18 08:11 Non-Rebreather 15.0 100 07/04/18 08:11 91 Non-Rebreather 15.0 07/04/18 08:00 97.2 83 22 107/68 (81) 90 07/04/18 08:00 67 07/04/18 04:00 84 07/04/18 04:00 99.3 76 18 141/62 (88) 95 07/04/18 02:05 92 22 Non-Rebreather 15.0 07/04/18 02:05 93 Non-Rebreather 15.0 07/04/18 02:05 Non-Rebreather 15.0 07/04/18 00:00 78 07/04/18 00:00 97.0 79 18 110/44 (66) 98 07/03/18 21:00 Venturi Mask 12.0 07/03/18 20:00 96.8 79 20 137/75 (95) 100 07/03/18 20:00 71 07/03/18 16:00 85 07/03/18 16:00 96.8 87 20 131/56 (81) 100 Intake and Output 07/03/18 07/04/18 18:59 06:59 Intake Total 1195 ml Balance 1195 ml Intake Free Water 100 ml IV Total 655 ml Tube Feeding 440 ml # Voids 2 3 # Bowel Movements 1 Laboratory Tests 07/04/18 07:50: White Blood Count 11.7H, Red Blood Count 2.63L, Hemoglobin 7.8L, Hematocrit 24.3L, Mean Corpuscular Volume 92, Mean Corpuscular Hemoglobin 29.8, Mean Corpuscular Hemoglobin Concent 32.3, Red Cell Distribution Width 16.2H, Platelet Count 55L, Mean Platelet Volume 11.0H, Neutrophils (%) (Auto) , Lymphocytes (%) (Auto) , Monocytes (%) (Auto) , Eosinophils (%) (Auto) , Basophils (%) (Auto) , Differential Total Cells Counted 100, Neutrophils % ( Manual) 91H, Lymphocytes % (Manual) 7L, Monocytes % (Manual) 2, Eosinophils % ( Manual) 0, Basophils % (Manual) 0, Band Neutrophils 0, Platelet Estimate DecreasedL, Platelet Morphology Normal, Hypochromasia 1+, Anisocytosis 1+, Sodium Level 144, Potassium Level 4.4, Chloride Level 114H, Carbon Dioxide Level 19L, Anion Gap 11, Blood Urea Nitrogen 23H, Creatinine 0.7, Estimat Glomerular Filtration Rate , Glucose Level 183H, Calcium Level 7.8L, Coccidioides Antibody (Comp Fix) [Pending] Height (Feet): 5 Height (Inches): 5.00 Weight (Pounds): 144 General Appearance: no apparent distress EENT: normal ENT inspection Neck: supple Cardiovascular: tachycardia Respiratory/Chest: decreased breath sounds Abdomen: normal bowel sounds, non tender, soft Extremities: non-tender Oli Wallace MD Jul 04, 2018 12:01
--- NOTE | 2018-07-04 12:27 | NUR ---
NURSE NOTES: Seen by Dr. Wallace, and dc Iv fluid
--- NOTE | 2018-07-04 12:46 | Pulmonology Progress Note ---
Assessment/Plan Problems: (1) Sepsis (2) Thrombocytopenia (3) ATN (acute tubular necrosis) (4) Pulmonary hypertension (5) Sacral decubitus ulcer, stage III (6) Alzheimer's dementia (7) Protein-calorie malnutrition, severe (8) HTN (hypertension) (9) Pacemaker (10) CAD (coronary artery disease) Assessment/Plan on face mask /u PLT, better today up to 55 failed swallow study Morphine prn d/w wound care nurse, mckeon cultures iv fluids check electrolytes sliding scale check electrolytes daily broad spectrum abx dvt prophylaxis insulin coverage. social service consult Subjective ROS Limited/Unobtainable: Yes Allergies: Coded Allergies: No Known Allergies (Unverified , 08/10/13) Objective Last 24 Hour Vital Signs Date Time Temp Pulse Resp B/P (MAP) Pulse Ox O2 Delivery O2 Flow Rate FiO2 07/04/18 12:00 97.3 95 22 120/44 (69) 100 07/04/18 10:12 Venturi Mask 12.0 07/04/18 08:11 88 18 Non-Rebreather 15.0 07/04/18 08:11 Non-Rebreather 15.0 100 07/04/18 08:11 91 Non-Rebreather 15.0 07/04/18 08:00 97.2 83 22 107/68 (81) 90 07/04/18 08:00 67 07/04/18 04:00 84 07/04/18 04:00 99.3 76 18 141/62 (88) 95 07/04/18 02:05 92 22 Non-Rebreather 15.0 07/04/18 02:05 93 Non-Rebreather 15.0 07/04/18 02:05 Non-Rebreather 15.0 07/04/18 00:00 78 07/04/18 00:00 97.0 79 18 110/44 (66) 98 07/03/18 21:00 Venturi Mask 12.0 07/03/18 20:00 96.8 79 20 137/75 (95) 100 07/03/18 20:00 71 07/03/18 16:00 85 07/03/18 16:00 96.8 87 20 131/56 (81) 100 Intake and Output 07/03/18 07/04/18 18:59 06:59 Intake Total 1195 ml Balance 1195 ml Intake Free Water 100 ml IV Total 655 ml Tube Feeding 440 ml # Voids 2 3 # Bowel Movements 1 Objective General Appearance: cachectic HEENT: normocephalic, somnolent Respiratory/Chest: chest wall non-tender,loud rhonchi Cardiovascular: normal peripheral pulses, normal rate Abdomen: normal bowel sounds, soft, non tender Extremities: no cyanosis Skin: no rash Microbiology Date/Time Source Procedure Growth Status 07/03/18 08:45 Blood Blood Culture - Preliminary Resulted 07/03/18 08:20 Blood Blood Culture - Preliminary Resulted Laboratory Tests 07/04/18 07:50: White Blood Count 11.7H, Red Blood Count 2.63L, Hemoglobin 7.8L, Hematocrit 24.3L, Mean Corpuscular Volume 92, Mean Corpuscular Hemoglobin 29.8, Mean Corpuscular Hemoglobin Concent 32.3, Red Cell Distribution Width 16.2H, Platelet Count 55L, Mean Platelet Volume 11.0H, Neutrophils (%) (Auto) , Lymphocytes (%) (Auto) , Monocytes (%) (Auto) , Eosinophils (%) (Auto) , Basophils (%) (Auto) , Differential Total Cells Counted 100, Neutrophils % ( Manual) 91H, Lymphocytes % (Manual) 7L, Monocytes % (Manual) 2, Eosinophils % ( Manual) 0, Basophils % (Manual) 0, Band Neutrophils 0, Platelet Estimate DecreasedL, Platelet Morphology Normal, Hypochromasia 1+, Anisocytosis 1+, Sodium Level 144, Potassium Level 4.4, Chloride Level 114H, Carbon Dioxide Level 19L, Anion Gap 11, Blood Urea Nitrogen 23H, Creatinine 0.7, Estimat Glomerular Filtration Rate , Glucose Level 183H, Calcium Level 7.8L, Coccidioides Antibody (Comp Fix) [Pending] Current Medications Medications (Trade) Dose Ordered Sig/Yi Route PRN Reason Start Time Stop Time Status Last Admin Dose Admin Acetaminophen (Tylenol) 650 mg Q4H PRN NG Mild Pain/Temp > 100.5 07/02/18 14:43 07/29/18 14:42 Ceftaroline Fosamil 400 mg/ Sodium Chloride 55 ml @ 55 mls/hr Q12HR IV 07/03/18 09:00 07/10/18 08:59 07/04/18 09:17 Clonidine HCl (Catapres Tab) 0.1 mg Q8H PRN NG SBP>160mmHg 07/03/18 14:00 07/25/18 13:59 Daptomycin 400 mg/ Sodium Chloride 55 ml @ 100 mls/hr Q24H IV 07/02/18 18:00 07/07/18 17:59 07/03/18 18:14 Dextrose (Dextrose 50%) 25 ml Q30M PRN IV Hypoglycemia 07/02/18 14:45 07/24/18 13:30 Dextrose (Dextrose 50%) 50 ml Q30M PRN IV hypoglycemia 07/02/18 14:45 07/24/18 13:44 Insulin Aspart (NovoLOG) EVERY 6 HOURS SUBQ 07/02/18 18:00 07/24/18 16:29 07/04/18 12:06 Lansoprazole (Prevacid) 30 mg DAILY NG 07/03/18 09:00 08/02/18 08:59 07/04/18 09:18 Olanzapine (ZyPREXA) 2.5 mg BID NG 07/03/18 18:00 07/25/18 10:59 07/04/18 09:18 Ondansetron HCl (Zofran) 4 mg Q6H PRN IVP Nausea & Vomiting 07/02/18 14:44 07/25/18 14:43 Rod Mancera MD Jul 04, 2018 12:46
--- NOTE | 2018-07-04 14:05 | Cardiology Progress Note ---
Assessment/Plan Assessment/Plan staph bacteremia anemai thrombocytopenia cavitarya pulm nodule likey embolic in natuer metabolic encphalopathy multipe pacemaker generator and wires dr mina who is very familiar with this pt feel she is not a candidate for larissa at this time (to which i woudl agree) specilly now with such low plt counts iv abx supportive care watch plt and hgb for need for tx if full care is felt margo necessary i would in light of pulm cavitating lesion likey has micro embolic form eith erthe wires of right sided valve infection as a source of pulm lesion pt in pulm isolation for possible tb as well in light of pulm cavitating lesion however likely related to staph bacteremia Subjective ROS Limited/Unobtainable: Yes Objective Last 24 Hour Vital Signs Date Time Temp Pulse Resp B/P (MAP) Pulse Ox O2 Delivery O2 Flow Rate FiO2 07/04/18 12:00 97.3 95 22 120/44 (69) 100 07/04/18 12:00 86 07/04/18 10:12 Venturi Mask 12.0 07/04/18 08:11 88 18 Non-Rebreather 15.0 07/04/18 08:11 Non-Rebreather 15.0 100 07/04/18 08:11 91 Non-Rebreather 15.0 07/04/18 08:00 97.2 83 22 107/68 (81) 90 07/04/18 08:00 67 07/04/18 04:00 84 07/04/18 04:00 99.3 76 18 141/62 (88) 95 07/04/18 02:05 92 22 Non-Rebreather 15.0 07/04/18 02:05 93 Non-Rebreather 15.0 07/04/18 02:05 Non-Rebreather 15.0 07/04/18 00:00 78 07/04/18 00:00 97.0 79 18 110/44 (66) 98 07/03/18 21:00 Venturi Mask 12.0 07/03/18 20:00 96.8 79 20 137/75 (95) 100 07/03/18 20:00 71 07/03/18 16:00 85 07/03/18 16:00 96.8 87 20 131/56 (81) 100 General Appearance: no apparent distress Intake and Output 07/03/18 07/04/18 18:59 06:59 Intake Total 1195 ml Balance 1195 ml Intake Free Water 100 ml IV Total 655 ml Tube Feeding 440 ml # Voids 2 3 # Bowel Movements 1 Laboratory Tests Test 07/04/18 07:50 White Blood Count 11.7 K/UL (4.8-10.8) H Red Blood Count 2.63 M/UL (4.20-5.40) L Hemoglobin 7.8 G/DL (12.0-16.0) L Hematocrit 24.3 % (37.0-47.0) L Mean Corpuscular Volume 92 FL (80-99) Mean Corpuscular Hemoglobin 29.8 PG (27.0-31.0) Mean Corpuscular Hemoglobin Concent 32.3 G/DL (32.0-36.0) Red Cell Distribution Width 16.2 % (11.6-14.8) H Platelet Count 55 K/UL (150-450) L Mean Platelet Volume 11.0 FL (6.5-10.1) H Neutrophils (%) (Auto) % (45.0-75.0) Lymphocytes (%) (Auto) % (20.0-45.0) Monocytes (%) (Auto) % (1.0-10.0) Eosinophils (%) (Auto) % (0.0-3.0) Basophils (%) (Auto) % (0.0-2.0) Differential Total Cells Counted 100 Neutrophils % (Manual) 91 % (45-75) H Lymphocytes % (Manual) 7 % (20-45) L Monocytes % (Manual) 2 % (1-10) Eosinophils % (Manual) 0 % (0-3) Basophils % (Manual) 0 % (0-2) Band Neutrophils 0 % (0-8) Platelet Estimate Decreased L Platelet Morphology Normal Hypochromasia 1+ Anisocytosis 1+ Sodium Level 144 MMOL/L (136-145) Potassium Level 4.4 MMOL/L (3.5-5.1) Chloride Level 114 MMOL/L (98-107) H Carbon Dioxide Level 19 MMOL/L (21-32) L Anion Gap 11 mmol/L (5-15) Blood Urea Nitrogen 23 mg/dL (7-18) H Creatinine 0.7 MG/DL (0.55-1.30) Estimat Glomerular Filtration Rate mL/min (>60) Glucose Level 183 MG/DL (74-106) H Calcium Level 7.8 MG/DL (8.5-10.1) L Coccidioides Antibody (Comp Fix) Pending Microbiology Date/Time Source Procedure Growth Status 07/03/18 08:45 Blood Blood Culture - Preliminary Resulted 07/03/18 08:20 Blood Blood Culture - Preliminary Resulted Ihsan Fischer MD Jul 04, 2018 14:05
--- NOTE | 2018-07-04 15:44 | Surgery Progress Note ---
Surgery Progress Note Subjective Additional Comments no acute events. stable Objective Last 24 Hour Vital Signs Date Time Temp Pulse Resp B/P (MAP) Pulse Ox O2 Delivery O2 Flow Rate FiO2 07/04/18 12:00 97.3 95 22 120/44 (69) 100 07/04/18 12:00 86 07/04/18 10:12 Venturi Mask 12.0 07/04/18 08:11 88 18 Non-Rebreather 15.0 07/04/18 08:11 Non-Rebreather 15.0 100 07/04/18 08:11 91 Non-Rebreather 15.0 07/04/18 08:00 97.2 83 22 107/68 (81) 90 07/04/18 08:00 67 07/04/18 04:00 84 07/04/18 04:00 99.3 76 18 141/62 (88) 95 07/04/18 02:05 92 22 Non-Rebreather 15.0 07/04/18 02:05 93 Non-Rebreather 15.0 07/04/18 02:05 Non-Rebreather 15.0 07/04/18 00:00 78 07/04/18 00:00 97.0 79 18 110/44 (66) 98 07/03/18 21:00 Venturi Mask 12.0 07/03/18 20:00 96.8 79 20 137/75 (95) 100 07/03/18 20:00 71 07/03/18 16:00 85 07/03/18 16:00 96.8 87 20 131/56 (81) 100 I&O Intake and Output 07/03/18 07/04/18 18:59 06:59 Intake Total 1195 ml Balance 1195 ml Intake Free Water 100 ml IV Total 655 ml Tube Feeding 440 ml # Voids 2 3 # Bowel Movements 1 Dressing: saturated, other Wound: other Drains: other Cardiovascular: RSR Respiratory: clear, decreased breath sounds Abdomen: soft, non-tender, present bowel sounds Extremities: other Laboratory Tests Test 07/04/18 07:50 White Blood Count 11.7 K/UL (4.8-10.8) H Red Blood Count 2.63 M/UL (4.20-5.40) L Hemoglobin 7.8 G/DL (12.0-16.0) L Hematocrit 24.3 % (37.0-47.0) L Mean Corpuscular Volume 92 FL (80-99) Mean Corpuscular Hemoglobin 29.8 PG (27.0-31.0) Mean Corpuscular Hemoglobin Concent 32.3 G/DL (32.0-36.0) Red Cell Distribution Width 16.2 % (11.6-14.8) H Platelet Count 55 K/UL (150-450) L Mean Platelet Volume 11.0 FL (6.5-10.1) H Neutrophils (%) (Auto) % (45.0-75.0) Lymphocytes (%) (Auto) % (20.0-45.0) Monocytes (%) (Auto) % (1.0-10.0) Eosinophils (%) (Auto) % (0.0-3.0) Basophils (%) (Auto) % (0.0-2.0) Differential Total Cells Counted 100 Neutrophils % (Manual) 91 % (45-75) H Lymphocytes % (Manual) 7 % (20-45) L Monocytes % (Manual) 2 % (1-10) Eosinophils % (Manual) 0 % (0-3) Basophils % (Manual) 0 % (0-2) Band Neutrophils 0 % (0-8) Platelet Estimate Decreased L Platelet Morphology Normal Hypochromasia 1+ Anisocytosis 1+ Sodium Level 144 MMOL/L (136-145) Potassium Level 4.4 MMOL/L (3.5-5.1) Chloride Level 114 MMOL/L (98-107) H Carbon Dioxide Level 19 MMOL/L (21-32) L Anion Gap 11 mmol/L (5-15) Blood Urea Nitrogen 23 mg/dL (7-18) H Creatinine 0.7 MG/DL (0.55-1.30) Estimat Glomerular Filtration Rate mL/min (>60) Glucose Level 183 MG/DL (74-106) H Calcium Level 7.8 MG/DL (8.5-10.1) L Coccidioides Antibody (Comp Fix) Pending Plan Problems: (1) Sepsis Assessment & Plan: Leukocytosis resolved LFT's elevated w/ t bili / d bili - improved AM labs ordered hydrate US Impression: Limited exam, as described. Note inability to visualize the spleen Negative for gallstones or dilated bile ducts Questionable bilateral renal parapelvic cysts Small to moderate right pleural effusion no acute surgical intervention planned. NELDA this week for septic emboli tube feeds as tolerated will follow with recs. (2) Sacral decubitus ulcer, stage III Assessment & Plan: DTPI sacrum.Maroon- indurated discoloration with opening at sacral coccygeal area(L)3.8cm x (W)1.4cm with entire wound measuring (L)10cmx(W) 12cm.Small amt malodorous brown exudate. Stable dry eschar R heel with dry peeling skin periwound (L)2cm x (W)3.5cm. Periwound is also red and boggy. Small dry eschar noted to lateral R 5th metatarsal (L)1.4cm x (W)0.3cm. L heel is boggy but colour is dusky . Resolving skin tear lateral R tibia. Wound bed is clean and dry. Tx. Plan: Cleanse Sacral wound with Saline.Apply Therahoney to opening at sacrococcygeal area.Cavilon skin barrier to DTPI. Cover with Optifoam drsg .Change Daily and prn. Apply Betadine to R heel and Lateral R 5th metatarsal.Cover with Abd pad .Wrap with kerlix daily and prn. Apply Cavilon Skin Barrier to L heel.Cover with Optifoam drsg .Change every 7 days and prn. Reposition at least every 2hours or as tolerated. Off-load heels with pillow. (3) Rectal bleed (4) Protein-calorie malnutrition, severe (5) Dehydration Sher Younger Jul 04, 2018 15:44
[2018-07-04] MEDS ORDERED: NS 275ml ONE ×2 (15:57→17:31)
[2018-07-04] MEDS ORDERED: Sterile Water Irrig 1000ml IRRIG ONE (15:57)
[2018-07-04] MEDS ORDERED: Tubing IV Secondary IV ONE ×2 (15:57→17:31)
[2018-07-04] MEDS ORDERED: D5 1/2NS 1000ml IV ONE ×2 (15:57→17:31)
--- NOTE | 2018-07-04 16:07 | NUR ---
NURSE NOTES: Blood product is verified with another RN, and started with 125cc/hr, right upper arm midline. Vital sign are stable and we will continue plan of care.
--- NOTE | 2018-07-04 16:22 | NUR ---
NURSE NOTES: Vital sign is stable, no adverse effect reaction noted. will continue plan of care.
--- NOTE | 2018-07-04 17:23 | Internal Med Progress Note ---
Subjective Date of Service: Jul 04, 2018 Physician Name Aquilino Matthews Attending Physician Carlos Alberto Berkowitz MD Current Medications Medications (Trade) Dose Ordered Sig/Yi Route PRN Reason Start Time Stop Time Status Last Admin Dose Admin Acetaminophen (Tylenol) 650 mg Q4H PRN NG Mild Pain/Temp > 100.5 07/02/18 14:43 07/29/18 14:42 Ceftaroline Fosamil 400 mg/ Sodium Chloride 55 ml @ 55 mls/hr Q12HR IV 07/03/18 09:00 07/10/18 08:59 07/04/18 09:17 Clonidine HCl (Catapres Tab) 0.1 mg Q8H PRN NG SBP>160mmHg 07/03/18 14:00 07/25/18 13:59 Daptomycin 400 mg/ Sodium Chloride 55 ml @ 100 mls/hr Q24H IV 07/02/18 18:00 07/07/18 17:59 07/03/18 18:14 Dextrose (Dextrose 50%) 25 ml Q30M PRN IV Hypoglycemia 07/02/18 14:45 07/24/18 13:30 Dextrose (Dextrose 50%) 50 ml Q30M PRN IV hypoglycemia 07/02/18 14:45 07/24/18 13:44 Insulin Aspart (NovoLOG) EVERY 6 HOURS SUBQ 07/02/18 18:00 07/24/18 16:29 07/04/18 12:06 Lansoprazole (Prevacid) 30 mg DAILY NG 07/03/18 09:00 08/02/18 08:59 07/04/18 09:18 Olanzapine (ZyPREXA) 2.5 mg BID NG 07/03/18 18:00 07/25/18 10:59 07/04/18 09:18 Ondansetron HCl (Zofran) 4 mg Q6H PRN IVP Nausea & Vomiting 07/02/18 14:44 07/25/18 14:43 Allergies: Coded Allergies: No Known Allergies (Unverified , 08/10/13) Subjective 82 YO F admitted with dehydration and hypoxia. Now sepsis. Cover for Int Med- Dr Berkowitz. Continues on venturi mask Objective Last Vital Signs Date Time Temp Pulse Resp B/P (MAP) Pulse Ox O2 Delivery O2 Flow Rate FiO2 07/04/18 16:22 99.0 102 24 125/63 (83) 100 07/04/18 10:12 Venturi Mask 12.0 07/04/18 08:11 100 Laboratory Tests Test 07/04/18 07:50 White Blood Count 11.7 K/UL (4.8-10.8) H Red Blood Count 2.63 M/UL (4.20-5.40) L Hemoglobin 7.8 G/DL (12.0-16.0) L Hematocrit 24.3 % (37.0-47.0) L Mean Corpuscular Volume 92 FL (80-99) Mean Corpuscular Hemoglobin 29.8 PG (27.0-31.0) Mean Corpuscular Hemoglobin Concent 32.3 G/DL (32.0-36.0) Red Cell Distribution Width 16.2 % (11.6-14.8) H Platelet Count 55 K/UL (150-450) L Mean Platelet Volume 11.0 FL (6.5-10.1) H Neutrophils (%) (Auto) % (45.0-75.0) Lymphocytes (%) (Auto) % (20.0-45.0) Monocytes (%) (Auto) % (1.0-10.0) Eosinophils (%) (Auto) % (0.0-3.0) Basophils (%) (Auto) % (0.0-2.0) Differential Total Cells Counted 100 Neutrophils % (Manual) 91 % (45-75) H Lymphocytes % (Manual) 7 % (20-45) L Monocytes % (Manual) 2 % (1-10) Eosinophils % (Manual) 0 % (0-3) Basophils % (Manual) 0 % (0-2) Band Neutrophils 0 % (0-8) Platelet Estimate Decreased L Platelet Morphology Normal Hypochromasia 1+ Anisocytosis 1+ Sodium Level 144 MMOL/L (136-145) Potassium Level 4.4 MMOL/L (3.5-5.1) Chloride Level 114 MMOL/L (98-107) H Carbon Dioxide Level 19 MMOL/L (21-32) L Anion Gap 11 mmol/L (5-15) Blood Urea Nitrogen 23 mg/dL (7-18) H Creatinine 0.7 MG/DL (0.55-1.30) Estimat Glomerular Filtration Rate mL/min (>60) Glucose Level 183 MG/DL (74-106) H Calcium Level 7.8 MG/DL (8.5-10.1) L Coccidioides Antibody (Comp Fix) Pending Microbiology Date/Time Source Procedure Growth Status 07/03/18 08:45 Blood Blood Culture - Preliminary Resulted 07/03/18 08:20 Blood Blood Culture - Preliminary Resulted Intake and Output 07/03/18 07/04/18 18:59 06:59 Intake Total 1195 ml Balance 1195 ml Intake Free Water 100 ml IV Total 655 ml Tube Feeding 440 ml # Voids 2 3 # Bowel Movements 1 Objective Objective General: No acute distress, awake and less responsive, Sleepy, cachectic. HEENT: NCAT, sclera anicteric, PERRL, NG tube. Neck: Supple, no significant jugular venous distention, Lungs: Non-rebreather mask; Poor inspiratory effort, decreased air in the bases , Bilateral Wheeze and Rales. Heart: Regular rate and rhythm, normal S1/S2, no murmur. Abdomen: soft, nontender, nondistended. Normoactive bowel sounds. / Rectal: Refused and deferred. Extremities: No Cyanosis , No clubbing, Left UE edema. Lateral lower extremity / feet dressing intact. Neuro: A&O x 1, Able to move all extremities Skin: warm, no rashes or lesions, ecchymosis in bilateral upper extremity noted. Assessment/Plan Assessment/Plan Assessment/Plan Assessment/Plan 1. Sepsis / METHACILLIN RESISTANT STAPHYLOCOCCUS AUREUS bacteremia, lactic acidosis. 2. Failure to thrive with severe protein calorie malnutrition. 3. Coronary artery disease. 4. Diabetes, type 2. 5. Hypertension. 6. Sick sinus syndrome. 7. Hypercholesterolemia. 8. Aortic stenosis. 9. Pulmonary hypertension. 10. Alzheimer dementia. 11. Acute tubular necrosis/acute kidney injury most likely secondary to dehydration and sepsis. 12. Sacral decubitus ulcer, stage III 13. Severe dehydration 14. Hypokalemia. 15. Abnormal liver function test 16. Anemia/thrombocytopenia 17. Bilateral pneumonia ?septic emboli? TREATMENT: 1. Patient on broad spectrum antibiotics with vancomycin and Zosyn IV. Will require transesophageal echocardiogram to R/O endocarditis-see ID note 2. Coronary artery disease. The patient is status post coronary artery bypass graft in 2017. 3. Diabetes, type 2. The patient has been started on NovoLog sliding scale. 4. Hypertension. The patient is to continue on atenolol and losartan as above. 5. Sick sinus syndrome. The patient is status post pacemaker implantation. 6. Hypercholesterolemia. Continue simvastatin as above. 7. Aortic stenosis. 8. Pulmonary hypertension. 9. Alzheimer dementia. 10. Anemia/thrombocytopenia-S/P 1 unit PRBC on 06/28/18. Heme/Onc consult. Hold heparin 11. Septic pulmonary emboli-await NELDA on Thursday07/06/18-see cardiology note. Restart tube feeding at rate of 45 cc/hr. CODE STATUS is full code as per ARLET, DVT prophylaxis: D/C Heparin subcu due to thrombocytopenia Aquilino Matthews MD Jul 04, 2018 17:23
[2018-07-04] MEDS: DAPTOmycin 400 MG in NS 55 ML IV SCH (18:04)
--- NOTE | 2018-07-04 18:30 | NUR ---
NURSE NOTES: Blood transfusion is completed. No adverse reaction noted. VSS. Will continue plan of care.
--- NOTE | 2018-07-04 19:15 | NUR ---
NURSE NOTES: Received pt. and report from SOILA Garcia. Observed pt. resting in bed with both eyes closed. Pt. is A/O x1; responds to name only. air traffic supervisor is in placed. Pt. has a J CARLOS midline; intact, asymptomatic, patent, and saline locked. Pt. has a NGT currently feeding Glucerna 1.2 @ 55cc/hr. Call light is within reach, bed is in the lowest position and locked. Pt. is currently on airborne precaution. No acute distress noted at this time. Will continue plan of care.
--- NOTE | 2018-07-04 19:18 | General Progress Note ---
Assessment/Plan Assessment/Plan ASSESSMENT/RECS: 1. Pancytopenia with thrombocytopenia that is severe is most likely related to Sepsis, lactic acidosis. In addition has received heparin. US abdomen ordered and shows no spleen and no cirrhosis --> heparin discontinued --> HIT ab test ordered pending --> venous duplex negative --> smear peripheral has been reviewed and negative for abnml cells --> tumor markers as needed/prn --> hold off on transfusion unless plt <20k --> hold off on steriods --> plt trend: 34--> 50k 2. Failure to thrive with severe protein calorie malnutrition. ->> calorie counts daily --> consider mirtazapine as needed per pcp --> getting ngtfs 3. Anemia of chronic disease --> panel has been ordered --> transfuse if hgb <7 4. Leukocytosis --> on abx as per id for infection 5. Hypertension. 6. Sick sinus syndrome. 7. Hypercholesterolemia. 8. Aortic stenosis. 9. Pulmonary hypertension. 10. Alzheimer dementia. 11. Acute tubular necrosis/acute kidney injury most likely secondary to dehydration and sepsis. Greatly appreciate consultation! Subjective Constitutional: Denies: no symptoms, chills, diaphoresis, fever, malaise, weakness, other HEENT: Denies: no symptoms, eye pain, blurred vision, tearing, double vision, ear pain, ear discharge, nose pain, nose congestion, throat pain, throat swelling, mouth pain, mouth swelling, other Cardiovascular: Denies: no symptoms, chest pain, edema, irregular heart rate, lightheadedness, palpitations, syncope, other Gastrointestinal/Abdominal: Denies: no symptoms, abdomen distended, abdominal pain, black stools, tarry stools, blood in stool, constipated, diarrhea, difficulty swallowing, nausea, poor appetite, poor fluid intake, rectal bleeding , vomiting, other Genitourinary: Denies: no symptoms, burning, discharge, frequency, flank pain, hematuria, incontinence, pain, urgency, other Neurologic/Psychiatric: Denies: no symptoms, anxiety, depressed, emotional problems, headache, numbness, paresthesia, pre-existing deficit, seizure, tingling, tremors, weakness, other Hematologic/Lymphatic: Denies: no symptoms, anemia, easy bleeding, easy bruising, other Allergies: Coded Allergies: No Known Allergies (Unverified , 08/10/13) Subjective 07/01:seen by bedside, Possible EGD tomorrow to evaluate upper GI bleed, today's EGD was canceled by anesthesia, plt remains low at 34, hgb trending up . 07/02: Scheduled for EGD today,CT w/ cavitary lung lessions; placed on isolation , remains bacteremic, wbc 12. 07/04: continues to be somewhat sob, imaging reviewed, labs are better this am, plts uptrending, getting ngtfs Objective Last 24 Hour Vital Signs Date Time Temp Pulse Resp B/P (MAP) Pulse Ox O2 Delivery O2 Flow Rate FiO2 07/04/18 18:30 98.2 94 24 114/50 (71) 100 07/04/18 16:22 99.0 102 24 125/63 (83) 100 07/04/18 16:07 98.4 125 27 136/78 (97) 100 07/04/18 16:00 114 07/04/18 12:00 97.3 95 22 120/44 (69) 100 07/04/18 12:00 86 07/04/18 10:12 Venturi Mask 12.0 07/04/18 08:11 88 18 Non-Rebreather 15.0 07/04/18 08:11 Non-Rebreather 15.0 100 07/04/18 08:11 91 Non-Rebreather 15.0 07/04/18 08:00 97.2 83 22 107/68 (81) 90 07/04/18 08:00 67 07/04/18 04:00 84 07/04/18 04:00 99.3 76 18 141/62 (88) 95 07/04/18 02:05 92 22 Non-Rebreather 15.0 07/04/18 02:05 93 Non-Rebreather 15.0 07/04/18 02:05 Non-Rebreather 15.0 07/04/18 00:00 78 07/04/18 00:00 97.0 79 18 110/44 (66) 98 07/03/18 21:00 Venturi Mask 12.0 07/03/18 20:00 96.8 79 20 137/75 (95) 100 07/03/18 20:00 71 Intake and Output 07/03/18 07/04/18 18:59 06:59 Intake Total 1195 ml Balance 1195 ml Intake Free Water 100 ml IV Total 655 ml Tube Feeding 440 ml # Voids 2 3 # Bowel Movements 1 Laboratory Tests 07/04/18 07:50: White Blood Count 11.7H, Red Blood Count 2.63L, Hemoglobin 7.8L, Hematocrit 24.3L, Mean Corpuscular Volume 92, Mean Corpuscular Hemoglobin 29.8, Mean Corpuscular Hemoglobin Concent 32.3, Red Cell Distribution Width 16.2H, Platelet Count 55L, Mean Platelet Volume 11.0H, Neutrophils (%) (Auto) , Lymphocytes (%) (Auto) , Monocytes (%) (Auto) , Eosinophils (%) (Auto) , Basophils (%) (Auto) , Differential Total Cells Counted 100, Neutrophils % ( Manual) 91H, Lymphocytes % (Manual) 7L, Monocytes % (Manual) 2, Eosinophils % ( Manual) 0, Basophils % (Manual) 0, Band Neutrophils 0, Platelet Estimate DecreasedL, Platelet Morphology Normal, Hypochromasia 1+, Anisocytosis 1+, Sodium Level 144, Potassium Level 4.4, Chloride Level 114H, Carbon Dioxide Level 19L, Anion Gap 11, Blood Urea Nitrogen 23H, Creatinine 0.7, Estimat Glomerular Filtration Rate , Glucose Level 183H, Calcium Level 7.8L, Coccidioides Antibody (Comp Fix) [Pending] Height (Feet): 5 Height (Inches): 5.00 Weight (Pounds): 144 Objective GENERAL: Awake responsive to deep stimuli with opening of her eyes, in no apparent distress. HEENT: Eyes, pupils equal responsive to light and accommodation. ++ ngtf CHEST: Poor inspiratory effort, decreased air in the bases no wheezes or rhonchi was appreciated CARDIOVASCULAR: Regular rhythm and rate. S1 and S2 are normal without murmurs or gallops. ABDOMEN: Soft, nontender, and nondistended. Positive bowel sounds. No rebounding or guarding noted. EXTREMITIES: Negative for clubbing, cyanosis, or edema, muscle atrophy in bilateral lower extremity RECTAL/GENITAL: Not performed. NEUROLOGIC:somewhat responsive, better than before Kadeem Bennett MD Jul 04, 2018 19:18
--- NOTE | 2018-07-04 19:26 | NUR ---
HAND-OFF: Report given to SOILA Edmonds. Patient is in stable condition. No acute distress/SOB noted. Endorsed plan of care.
--- NOTE | 2018-07-04 20:22 | General Progress Note ---
Assessment/Plan Problem List: (1) Acute encephalopathy Assessment & Plan: metabolic ICD Codes: G93.40 - Encephalopathy, unspecified SNOMED: 18972709, [id number] (2) Delirium ICD Codes: R41.0 - Disorientation, unspecified SNOMED: 9565874 (3) Alzheimer's dementia ICD Codes: G30.9 - Alzheimer's disease, unspecified; F02.80 - Dementia in other diseases classified elsewhere without behavioral disturbance SNOMED: 28541041 Assessment/Plan Zyprexa the pt lacks capacity soft restraints if needed Subjective Allergies: Coded Allergies: No Known Allergies (Unverified , 08/10/13) Subjective cont to be agitated waxing and waning Objective Last 24 Hour Vital Signs Date Time Temp Pulse Resp B/P (MAP) Pulse Ox O2 Delivery O2 Flow Rate FiO2 07/04/18 18:30 98.2 94 24 114/50 (71) 100 07/04/18 16:22 99.0 102 24 125/63 (83) 100 07/04/18 16:07 98.4 125 27 136/78 (97) 100 07/04/18 16:00 114 07/04/18 12:00 97.3 95 22 120/44 (69) 100 07/04/18 12:00 86 07/04/18 10:12 Venturi Mask 12.0 07/04/18 08:11 88 18 Non-Rebreather 15.0 07/04/18 08:11 Non-Rebreather 15.0 100 07/04/18 08:11 91 Non-Rebreather 15.0 07/04/18 08:00 97.2 83 22 107/68 (81) 90 07/04/18 08:00 67 07/04/18 04:00 84 07/04/18 04:00 99.3 76 18 141/62 (88) 95 07/04/18 02:05 92 22 Non-Rebreather 15.0 07/04/18 02:05 93 Non-Rebreather 15.0 07/04/18 02:05 Non-Rebreather 15.0 07/04/18 00:00 78 07/04/18 00:00 97.0 79 18 110/44 (66) 98 07/03/18 21:00 Venturi Mask 12.0 Intake and Output 07/03/18 07/04/18 19:00 07:00 Intake Total 80 ml 1115 ml Balance 80 ml 1115 ml Intake Free Water 100 ml IV Total 50 ml 605 ml Tube Feeding 30 ml 410 ml # Voids 2 3 # Bowel Movements 1 Laboratory Tests 07/04/18 07:50: White Blood Count 11.7H, Red Blood Count 2.63L, Hemoglobin 7.8L, Hematocrit 24.3L, Mean Corpuscular Volume 92, Mean Corpuscular Hemoglobin 29.8, Mean Corpuscular Hemoglobin Concent 32.3, Red Cell Distribution Width 16.2H, Platelet Count 55L, Mean Platelet Volume 11.0H, Neutrophils (%) (Auto) , Lymphocytes (%) (Auto) , Monocytes (%) (Auto) , Eosinophils (%) (Auto) , Basophils (%) (Auto) , Differential Total Cells Counted 100, Neutrophils % ( Manual) 91H, Lymphocytes % (Manual) 7L, Monocytes % (Manual) 2, Eosinophils % ( Manual) 0, Basophils % (Manual) 0, Band Neutrophils 0, Platelet Estimate DecreasedL, Platelet Morphology Normal, Hypochromasia 1+, Anisocytosis 1+, Sodium Level 144, Potassium Level 4.4, Chloride Level 114H, Carbon Dioxide Level 19L, Anion Gap 11, Blood Urea Nitrogen 23H, Creatinine 0.7, Estimat Glomerular Filtration Rate , Glucose Level 183H, Calcium Level 7.8L, Coccidioides Antibody (Comp Fix) [Pending] Height (Feet): 5 Height (Inches): 5.00 Weight (Pounds): 144 General Appearance: no apparent distress, alert, confused Lena Bob MD Jul 04, 2018 20:22
[2018-07-05] VITALS: BP 123/58
[2018-07-05] MEDS: NovoLOG Insulin Flexpen SUBQ SCH ×5 (00:30→23:34)
[2018-07-05 04:00] VITALS: BP 124/76
--- NOTE | 2018-07-05 07:25 | NUR ---
NURSE NOTES: Received pt. and report from SOILA Edmonds. Observed pt. resting in bed with both eyes closed. Pt. is A/O x1; responds to name only. monitoring tech is in placed. Pt. has a J CARLOS midline; intact, asymptomatic, patent, and saline locked. Pt. has a NGT currently feeding Glucerna 1.2 @ 55cc/hr. Call light is within reach, bed is in the lowest position and locked. Pt. is currently on airborne precaution. No acute distress noted at this time. Will continue plan of care.
--- NOTE | 2018-07-05 07:28 | NUR ---
HAND-OFF: Report given to SOILA Davis.
[2018-07-05 08:00] VITALS: BP 97/52
[2018-07-05 08:15] LABS: HEMATOCRIT 26.8 % (37.0-47.0); HEMOGLOBIN 8.7 G/DL (12.0-16.0); MEAN CORPUSCULAR VOLUME 89 FL (80-99); PLATELET COUNT 58 K/UL (150-450); RED CELL DISTRIBUTION WIDTH 16.7 % (11.6-14.8); WHITE BLOOD COUNT 9.8 K/UL (4.8-10.8)
[2018-07-05 08:29] LABS: ANION GAP 8 mmol/L (5-15); BLOOD UREA NITROGEN 24 mg/dL (7-18); CALCIUM 7.7 MG/DL (8.5-10.1); CARBON DIOXIDE 21 MMOL/L (21-32); CHLORIDE 116 MMOL/L (98-107); CREATININE 0.6 MG/DL (0.55-1.30); POTASSIUM 4.3 MMOL/L (3.5-5.1); SODIUM 144 MMOL/L (136-145)
[2018-07-05] MEDS: OLANZapine 2.5mg tab NG SCH ×2 (08:42→18:30)
[2018-07-05] MEDS: Ceftaroline 400 MG in NS 55 ML IV SCH ×2 (08:42→20:46)
--- NOTE | 2018-07-05 10:04 | Infectious Diseases Prog Note ---
Assessment/Plan Assessment/Plan 82 yo female with PMHx DM, CAD, Alzheimer dementia and Hip fracture who presents with dehydration and weakness. 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 Given normal appearing chest radiograph on 06/24/2018, these are overwhelmingly likely infectious/inflammatory in nature. Most likely represent septic pulmonary emboli. The possibility of mycobacterial infection should also be included, deemed less likely given absence of adenopathy but still possible. Differential considerations also include fungal infections, noninfectious inflammatory processes. Other noncavitary nodules are also demonstrated, with the same differential. Large right and [id number] left pleural effusions. Compressive atelectasis of the majority of the right lower lobe. Infiltrates seen in the right upper lobe. Bilateral pacemaker. Evidence of central venoocclusive disease. Wedge-shaped area of low-attenuation in the upper pole of the spleen, suspicious for infarct. -2d Echo (limited study due to contractures): no vegetations seen -06/27 Bcx 4/4MRSA; 06/28 Bcx / MRSA; 06/29 08/19 MRSA; 07/01 Bcx / MRSA 06/25/18 Blood Cx 08/19 MRSA 06/24/18 Wound Cx MRSA, ESBL E.coli (S ZOsyn), K. pna (S Zosyn) Leukocytosis, recurrent, increasing Low grade fever; improving Positive UA CXR neg Thrombocytopenia- HIT vs medication related Pressure ulcers Not infected Right hip fracture with hemiarthroplasty Feb 2018 DM HTN Sick sinus syndrome sp Pacemaker HLD CAD - SP TX and CABG Aortic stenosis. Pulmonary hypertension. Alzheimer dementia. PLAN - Continue Daptomycin #6 (abx d #11) and Ceftaroline #4 given persistent MRSA Bacteremia - repeat 2 sets of Bcx -/ SP Vancomycin #6 -/ SP Zosyn #4 -06/27 SP Cefepime #3 -Will need NELDA to look for endocarditis and/or PPM infection if consistent with goals of care -placed on airborne isolation -AFB s/cx x3, MTB PCR x1 - f/u repeat cultures - Monitor CBC and temps - wound care - Nutritional support -f/u cocci, crAg, histo, blasto serologies -Discuss goals of care as patient with poor px given persistent MRSA bacteremia , likely endocarditis and PPM infection and advanced age and multiple comorbidities Thank you for this consult. We will continue to follow the patient during this hospitalization. Subjective Allergies: Coded Allergies: No Known Allergies (Unverified , 08/10/13) Subjective ; afebrile still bacteremic afb sputum collection pending Objective Vital Signs Last 24 Hour Vital Signs Date Time Temp Pulse Resp B/P (MAP) Pulse Ox O2 Delivery O2 Flow Rate FiO2 07/05/18 09:28 98.1 07/05/18 09:00 Venturi Mask 12.0 07/05/18 04:00 71 07/05/18 04:00 98.1 77 18 124/76 (92) 100 07/05/18 00:00 97.9 83 18 123/58 (79) 100 07/05/18 00:00 80 07/04/18 21:00 Venturi Mask 12.0 07/04/18 20:00 98.2 87 18 134/59 (84) 100 07/04/18 20:00 82 07/04/18 18:30 98.2 94 24 114/50 (71) 100 07/04/18 16:22 99.0 102 24 125/63 (83) 100 07/04/18 16:07 98.4 125 27 136/78 (97) 100 07/04/18 16:00 114 07/04/18 12:00 97.3 95 22 120/44 (69) 100 07/04/18 12:00 86 07/04/18 10:12 Venturi Mask 12.0 Height (Feet): 5 Height (Inches): 5.00 Weight (Pounds): 144 Objective Gen: Moaning, Awake but no following HEENT: NCAT, MMM, EOMI, PERRL LUNGS: CTAB, No W CARDS: RRR, S1, S2, No M/R/G, ABD: Soft, NT, ND, + BS Ext: Poor circulation to Ext (cool to touch) , Pulses 2+ B/L (DP, Rad): SKIN: Dry, No rashes, Large sacral ulcer. Mild odor no surrounding cellulitis, foot with eschar Microbiology Date/Time Source Procedure Growth Status 07/03/18 08:45 Blood Blood Culture - Preliminary Staphylococcus Aureus Resulted 07/03/18 08:20 Blood Blood Culture - Preliminary Staphylococcus Aureus Resulted Laboratory Tests Test 07/05/18 07:30 White Blood Count 9.8 K/UL (4.8-10.8) Red Blood Count 3.00 M/UL (4.20-5.40) L Hemoglobin 8.7 G/DL (12.0-16.0) L Hematocrit 26.8 % (37.0-47.0) L Mean Corpuscular Volume 89 FL (80-99) Mean Corpuscular Hemoglobin 29.1 PG (27.0-31.0) Mean Corpuscular Hemoglobin Concent 32.5 G/DL (32.0-36.0) Red Cell Distribution Width 16.7 % (11.6-14.8) H Platelet Count 58 K/UL (150-450) L Mean Platelet Volume 9.8 FL (6.5-10.1) Neutrophils (%) (Auto) % (45.0-75.0) Lymphocytes (%) (Auto) % (20.0-45.0) Monocytes (%) (Auto) % (1.0-10.0) Eosinophils (%) (Auto) % (0.0-3.0) Basophils (%) (Auto) % (0.0-2.0) Neutrophils % (Manual) Pending Lymphocytes % (Manual) Pending Platelet Estimate Pending Platelet Morphology Pending Sodium Level 144 MMOL/L (136-145) Potassium Level 4.3 MMOL/L (3.5-5.1) Chloride Level 116 MMOL/L (98-107) H Carbon Dioxide Level 21 MMOL/L (21-32) Anion Gap 8 mmol/L (5-15) Blood Urea Nitrogen 24 mg/dL (7-18) H Creatinine 0.6 MG/DL (0.55-1.30) Estimat Glomerular Filtration Rate mL/min (>60) Glucose Level 138 MG/DL (74-106) H Calcium Level 7.7 MG/DL (8.5-10.1) L Current Medications Medications (Trade) Dose Ordered Sig/Yi Route PRN Reason Start Time Stop Time Status Last Admin Dose Admin Acetaminophen (Tylenol) 650 mg Q4H PRN NG Mild Pain/Temp > 100.5 07/02/18 14:43 07/29/18 14:42 07/05/18 08:58 Ceftaroline Fosamil 400 mg/ Sodium Chloride 55 ml @ 55 mls/hr Q12HR IV 07/03/18 09:00 07/10/18 08:59 07/05/18 08:42 Clonidine HCl (Catapres Tab) 0.1 mg Q8H PRN NG SBP>160mmHg 07/03/18 14:00 07/25/18 13:59 Daptomycin 400 mg/ Sodium Chloride 55 ml @ 100 mls/hr Q24H IV 07/02/18 18:00 07/07/18 17:59 07/04/18 18:04 Dextrose (Dextrose 50%) 25 ml Q30M PRN IV Hypoglycemia 07/02/18 14:45 07/24/18 13:30 Dextrose (Dextrose 50%) 50 ml Q30M PRN IV hypoglycemia 07/02/18 14:45 07/24/18 13:44 Insulin Aspart (NovoLOG) EVERY 6 HOURS SUBQ 07/02/18 18:00 07/24/18 16:29 07/05/18 05:52 Lansoprazole (Prevacid) 30 mg DAILY NG 07/03/18 09:00 08/02/18 08:59 07/05/18 08:42 Olanzapine (ZyPREXA) 2.5 mg BID NG 07/03/18 18:00 07/25/18 10:59 07/05/18 08:42 Ondansetron HCl (Zofran) 4 mg Q6H PRN IVP Nausea & Vomiting 07/02/18 14:44 07/25/18 14:43 Roseann Bardales M.D. Jul 05, 2018 10:04
--- NOTE | 2018-07-05 10:05 | GI Progress Note ---
Assessment/Plan Problems: (1) Severe anemia ICD Codes: D64.9 - Anemia, unspecified SNOMED: 652656045 (2) Protein-calorie malnutrition, severe ICD Codes: E43 - Unspecified severe protein-calorie malnutrition SNOMED: 967014984 (3) Rectal bleed ICD Codes: K62.5 - Hemorrhage of anus and rectum SNOMED: 56019746 (4) Upper GI bleed ICD Codes: K92.2 - Gastrointestinal hemorrhage, unspecified SNOMED: 16764292 (5) Severe malnutrition ICD Codes: E43 - Unspecified severe protein-calorie malnutrition SNOMED: 18453042 (6) Weakness ICD Codes: R53.1 - Weakness SNOMED: 78797153 (7) Dysphasia ICD Codes: R47.02 - Dysphasia SNOMED: 14596702 (8) Dehydration ICD Codes: E86.0 - Dehydration SNOMED: 48251140 (9) Acute encephalopathy ICD Codes: G93.40 - Encephalopathy, unspecified SNOMED: 76608068, 731674841 (10) Sepsis ICD Codes: A41.9 - Sepsis, unspecified organism SNOMED: 76896827 (11) Diabetes mellitus, type II ICD Codes: E11.9 - Type 2 diabetes mellitus without complications SNOMED: 91746082 (12) Colitis ICD Codes: K52.9 - Noninfective gastroenteritis and colitis, unspecified SNOMED: 54663194 Status: unchanged Status Narrative Discussed with Dr. Wallace Assessment/Plan On airborne isolation EGD on hold per cardiology recs, pending NELDA on Thursday to rule out endocarditis on ppi stool ob positive>> monitor H&H and transfuse as needed NGTF repeat labs The patient was seen and examined at bedside and all new and available data was reviewed in the patients chart. I agree with the above findings, impression and plan. (Patient seen earlier today. Signature stamp does not reflect patient encounter time.). - Oli Wallace MD Subjective Subjective Limited Objective Last 24 Hour Vital Signs Date Time Temp Pulse Resp B/P (MAP) Pulse Ox O2 Delivery O2 Flow Rate FiO2 07/05/18 09:28 98.1 07/05/18 09:00 Venturi Mask 12.0 07/05/18 08:00 97.9 87 22 97/52 (67) 95 07/05/18 07:50 75 07/05/18 04:00 71 07/05/18 04:00 98.1 77 18 124/76 (92) 100 07/05/18 00:00 97.9 83 18 123/58 (79) 100 07/05/18 00:00 80 07/04/18 21:00 Venturi Mask 12.0 07/04/18 20:00 98.2 87 18 134/59 (84) 100 07/04/18 20:00 82 07/04/18 18:30 98.2 94 24 114/50 (71) 100 07/04/18 16:22 99.0 102 24 125/63 (83) 100 07/04/18 16:07 98.4 125 27 136/78 (97) 100 07/04/18 16:00 114 07/04/18 12:00 97.3 95 22 120/44 (69) 100 07/04/18 12:00 86 07/04/18 10:12 Venturi Mask 12.0 Intake and Output 07/04/18 07/05/18 19:00 07:00 Intake Total 55 ml 55 ml Balance 55 ml 55 ml IV Total 55 ml 55 ml # Voids 1 1 # Bowel Movements 1 1 Laboratory Tests Test 07/05/18 07:30 White Blood Count 9.8 K/UL (4.8-10.8) Red Blood Count 3.00 M/UL (4.20-5.40) L Hemoglobin 8.7 G/DL (12.0-16.0) L Hematocrit 26.8 % (37.0-47.0) L Mean Corpuscular Volume 89 FL (80-99) Mean Corpuscular Hemoglobin 29.1 PG (27.0-31.0) Mean Corpuscular Hemoglobin Concent 32.5 G/DL (32.0-36.0) Red Cell Distribution Width 16.7 % (11.6-14.8) H Platelet Count 58 K/UL (150-450) L Mean Platelet Volume 9.8 FL (6.5-10.1) Neutrophils (%) (Auto) % (45.0-75.0) Lymphocytes (%) (Auto) % (20.0-45.0) Monocytes (%) (Auto) % (1.0-10.0) Eosinophils (%) (Auto) % (0.0-3.0) Basophils (%) (Auto) % (0.0-2.0) Neutrophils % (Manual) Pending Lymphocytes % (Manual) Pending Platelet Estimate Pending Platelet Morphology Pending Sodium Level 144 MMOL/L (136-145) Potassium Level 4.3 MMOL/L (3.5-5.1) Chloride Level 116 MMOL/L (98-107) H Carbon Dioxide Level 21 MMOL/L (21-32) Anion Gap 8 mmol/L (5-15) Blood Urea Nitrogen 24 mg/dL (7-18) H Creatinine 0.6 MG/DL (0.55-1.30) Estimat Glomerular Filtration Rate mL/min (>60) Glucose Level 138 MG/DL (74-106) H Calcium Level 7.7 MG/DL (8.5-10.1) L Height (Feet): 5 Height (Inches): 5.00 Weight (Pounds): 144 General Appearance: mild distress Cardiovascular: normal rate Respiratory/Chest: other - Venturi mask Abdominal Exam: other - NGT Joe Sagastume NP Jul 05, 2018 10:05
[2018-07-05 12:00] VITALS: BP 100/62
--- NOTE | 2018-07-05 12:02 | Pulmonology Progress Note ---
Assessment/Plan Problems: (1) Sepsis (2) Thrombocytopenia (3) ATN (acute tubular necrosis) (4) Pulmonary hypertension (5) Sacral decubitus ulcer, stage III (6) Alzheimer's dementia (7) Protein-calorie malnutrition, severe (8) HTN (hypertension) (9) Pacemaker (10) CAD (coronary artery disease) Assessment/Plan on NRM /u PLT, better today up to 57 failed swallow study Morphine prn d/w wound care nurse, mckeon cultures, still positive iv fluids check electrolytes sliding scale check electrolytes daily broad spectrum abx dvt prophylaxis insulin coverage. social service consult might need removal of pacemaker leads, d/W dr Bardales Subjective ROS Limited/Unobtainable: No Constitutional: Reports: no symptoms HEENT: Repors: no symptoms Respiratory: Reports: no symptoms Allergies: Coded Allergies: No Known Allergies (Unverified , 08/10/13) Objective Last 24 Hour Vital Signs Date Time Temp Pulse Resp B/P (MAP) Pulse Ox O2 Delivery O2 Flow Rate FiO2 07/05/18 09:28 98.1 07/05/18 09:00 Venturi Mask 12.0 07/05/18 08:00 97.9 87 22 97/52 (67) 95 07/05/18 07:50 75 07/05/18 04:00 71 07/05/18 04:00 98.1 77 18 124/76 (92) 100 07/05/18 00:00 97.9 83 18 123/58 (79) 100 07/05/18 00:00 80 07/04/18 21:00 Venturi Mask 12.0 07/04/18 20:00 98.2 87 18 134/59 (84) 100 07/04/18 20:00 82 07/04/18 18:30 98.2 94 24 114/50 (71) 100 07/04/18 16:22 99.0 102 24 125/63 (83) 100 07/04/18 16:07 98.4 125 27 136/78 (97) 100 07/04/18 16:00 114 07/04/18 12:00 97.3 95 22 120/44 (69) 100 07/04/18 12:00 86 Intake and Output 07/04/18 07/05/18 19:00 07:00 Intake Total 55 ml 55 ml Balance 55 ml 55 ml IV Total 55 ml 55 ml # Voids 1 1 # Bowel Movements 1 1 Objective General Appearance: cachectic HEENT: normocephalic, somnolent Respiratory/Chest: chest wall non-tender,loud rhonchi Cardiovascular: normal peripheral pulses, normal rate Abdomen: normal bowel sounds, soft, non tender Extremities: no cyanosis Skin: no rash Microbiology Date/Time Source Procedure Growth Status 07/03/18 08:45 Blood Blood Culture - Preliminary Staphylococcus Aureus Resulted 07/03/18 08:20 Blood Blood Culture - Preliminary Staphylococcus Aureus Resulted Laboratory Tests 07/05/18 07:30: White Blood Count 9.8, Red Blood Count 3.00L, Hemoglobin 8.7L, Hematocrit 26.8L , Mean Corpuscular Volume 89, Mean Corpuscular Hemoglobin 29.1, Mean Corpuscular Hemoglobin Concent 32.5, Red Cell Distribution Width 16.7H, Platelet Count 58L, Mean Platelet Volume 9.8, Neutrophils (%) (Auto) , Lymphocytes (%) (Auto) , Monocytes (%) (Auto) , Eosinophils (%) (Auto) , Basophils (%) (Auto) , Neutrophils % (Manual) [Pending], Lymphocytes % (Manual) [Pending], Platelet Estimate [Pending], Platelet Morphology [Pending], Sodium Level 144, Potassium Level 4.3, Chloride Level 116H, Carbon Dioxide Level 21, Anion Gap 8, Blood Urea Nitrogen 24H, Creatinine 0.6, Estimat Glomerular Filtration Rate , Glucose Level 138H, Calcium Level 7.7L Current Medications Medications (Trade) Dose Ordered Sig/Yi Route PRN Reason Start Time Stop Time Status Last Admin Dose Admin Acetaminophen (Tylenol) 650 mg Q4H PRN NG Mild Pain/Temp > 100.5 07/02/18 14:43 07/29/18 14:42 07/05/18 08:58 Ceftaroline Fosamil 400 mg/ Sodium Chloride 55 ml @ 55 mls/hr Q12HR IV 07/03/18 09:00 07/10/18 08:59 07/05/18 08:42 Clonidine HCl (Catapres Tab) 0.1 mg Q8H PRN NG SBP>160mmHg 07/03/18 14:00 07/25/18 13:59 Daptomycin 400 mg/ Sodium Chloride 55 ml @ 100 mls/hr Q24H IV 07/02/18 18:00 07/07/18 17:59 07/04/18 18:04 Dextrose (Dextrose 50%) 25 ml Q30M PRN IV Hypoglycemia 07/02/18 14:45 07/24/18 13:30 Dextrose (Dextrose 50%) 50 ml Q30M PRN IV hypoglycemia 07/02/18 14:45 07/24/18 13:44 Insulin Aspart (NovoLOG) EVERY 6 HOURS SUBQ 07/02/18 18:00 07/24/18 16:29 07/05/18 05:52 Lansoprazole (Prevacid) 30 mg DAILY NG 07/03/18 09:00 08/02/18 08:59 07/05/18 08:42 Olanzapine (ZyPREXA) 2.5 mg BID NG 07/03/18 18:00 07/25/18 10:59 07/05/18 08:42 Ondansetron HCl (Zofran) 4 mg Q6H PRN IVP Nausea & Vomiting 07/02/18 14:44 07/25/18 14:43 Rod Mancera MD Jul 05, 2018 12:02
[2018-07-05 16:00] VITALS: BP 102/83
--- NOTE | 2018-07-05 16:00 | NUR ---
NURSE NOTES: 1600- Gave report to SOILA Mcgee. Moved patient per Dr. Mancera's order to [facility]. Patient is alert x1. Patient is on non-rebreather mask at100% pulse ox. V/s 104/64, 79 heart rate, 98.2 F and 22 respiration. Patient is SR at 78. Patient had one BM today at 15:00. Feeding is Glucerna 1.2 at 55 ml/hr. New feeding needed and was endorsed. Patient had purewic with 400ml of dark shayna urine. Ensure belonging of bracelet transferred. Endorsed wound care. Returned heart monitor back to unit.
--- NOTE | 2018-07-05 16:00 | NUR ---
NURSE NOTES: Patient transferred to [facility] per Dr. Mancera. Received report from Mary Ann Inman RN. Patient alert and oriented x 1, Brazilian-speaking. Receiving O2 via non-rebreather mask @ 15 L/min, no s/s of respiratory distress noted. Left NGT in place, feeding held during transfer. Left upper arm midline, left thumb 24g and right hand 22g saline locks patent and asymptomatic. Bed locked in lowest position with side rails up x 3. All needs attended to. Call light within reach. Will continue to monitor.
--- NOTE | 2018-07-05 16:12 | Surgery Progress Note ---
Surgery Progress Note Subjective Additional Comments leukocytosis resolved. appreciate ID input Objective Last 24 Hour Vital Signs Date Time Temp Pulse Resp B/P (MAP) Pulse Ox O2 Delivery O2 Flow Rate FiO2 07/05/18 09:28 98.1 07/05/18 09:00 Venturi Mask 12.0 07/05/18 08:00 97.9 87 22 97/52 (67) 95 07/05/18 07:50 75 07/05/18 04:00 71 07/05/18 04:00 98.1 77 18 124/76 (92) 100 07/05/18 00:00 97.9 83 18 123/58 (79) 100 07/05/18 00:00 80 07/04/18 21:00 Venturi Mask 12.0 07/04/18 20:00 98.2 87 18 134/59 (84) 100 07/04/18 20:00 82 07/04/18 18:30 98.2 94 24 114/50 (71) 100 07/04/18 16:22 99.0 102 24 125/63 (83) 100 I&O Intake and Output 07/04/18 07/05/18 18:59 06:59 Intake Total 55 ml 55 ml Balance 55 ml 55 ml IV Total 55 ml 55 ml # Voids 1 1 # Bowel Movements 1 1 Dressing: other Wound: other Drains: other Cardiovascular: RSR Respiratory: clear Abdomen: soft, present bowel sounds, non-distended Extremities: other Laboratory Tests Test 07/05/18 07:30 White Blood Count 9.8 K/UL (4.8-10.8) Red Blood Count 3.00 M/UL (4.20-5.40) L Hemoglobin 8.7 G/DL (12.0-16.0) L Hematocrit 26.8 % (37.0-47.0) L Mean Corpuscular Volume 89 FL (80-99) Mean Corpuscular Hemoglobin 29.1 PG (27.0-31.0) Mean Corpuscular Hemoglobin Concent 32.5 G/DL (32.0-36.0) Red Cell Distribution Width 16.7 % (11.6-14.8) H Platelet Count 58 K/UL (150-450) L Mean Platelet Volume 9.8 FL (6.5-10.1) Neutrophils (%) (Auto) % (45.0-75.0) Lymphocytes (%) (Auto) % (20.0-45.0) Monocytes (%) (Auto) % (1.0-10.0) Eosinophils (%) (Auto) % (0.0-3.0) Basophils (%) (Auto) % (0.0-2.0) Differential Total Cells Counted 100 Neutrophils % (Manual) 88 % (45-75) H Lymphocytes % (Manual) 4 % (20-45) L Monocytes % (Manual) 2 % (1-10) Eosinophils % (Manual) 0 % (0-3) Basophils % (Manual) 0 % (0-2) Band Neutrophils 6 % (0-8) Platelet Estimate Decreased L Platelet Morphology Normal Anisocytosis 1+ Sodium Level 144 MMOL/L (136-145) Potassium Level 4.3 MMOL/L (3.5-5.1) Chloride Level 116 MMOL/L (98-107) H Carbon Dioxide Level 21 MMOL/L (21-32) Anion Gap 8 mmol/L (5-15) Blood Urea Nitrogen 24 mg/dL (7-18) H Creatinine 0.6 MG/DL (0.55-1.30) Estimat Glomerular Filtration Rate mL/min (>60) Glucose Level 138 MG/DL (74-106) H Calcium Level 7.7 MG/DL (8.5-10.1) L Plan Problems: (1) Sepsis Assessment & Plan: Leukocytosis resolved LFT's elevated w/ t bili / d bili - improved AM labs ordered hydrate US Impression: Limited exam, as described. Note inability to visualize the spleen Negative for gallstones or dilated bile ducts Questionable bilateral renal parapelvic cysts Small to moderate right pleural effusion no acute surgical intervention planned. NELDA for septic emboli consider removing pacemaker as harboring sepsis source tube feeds as tolerated will follow with recs. (2) Sacral decubitus ulcer, stage III Assessment & Plan: DTPI sacrum.Maroon- indurated discoloration with opening at sacral coccygeal area(L)3.8cm x (W)1.4cm with entire wound measuring (L)10cmx(W) 12cm.Small amt malodorous brown exudate. Stable dry eschar R heel with dry peeling skin periwound (L)2cm x (W)3.5cm. Periwound is also red and boggy. Small dry eschar noted to lateral R 5th metatarsal (L)1.4cm x (W)0.3cm. L heel is boggy but colour is dusky . Resolving skin tear lateral R tibia. Wound bed is clean and dry. Tx. Plan: Cleanse Sacral wound with Saline.Apply Therahoney to opening at sacrococcygeal area.Cavilon skin barrier to DTPI. Cover with Optifoam drsg .Change Daily and prn. Apply Betadine to R heel and Lateral R 5th metatarsal.Cover with Abd pad .Wrap with kerlix daily and prn. Apply Cavilon Skin Barrier to L heel.Cover with Optifoam drsg .Change every 7 days and prn. Reposition at least every 2hours or as tolerated. Off-load heels with pillow. (3) Rectal bleed (4) Protein-calorie malnutrition, severe (5) Dehydration Sher Younger Jul 05, 2018 16:12
--- NOTE | 2018-07-05 16:15 | General Progress Note ---
Assessment/Plan Assessment/Plan ASSESSMENT/RECS: 1. Pancytopenia with thrombocytopenia that is severe is most likely related to Sepsis, lactic acidosis. In addition has received heparin. US abdomen ordered and shows no spleen and no cirrhosis --> heparin discontinued --> HIT ab test ordered pending --> venous duplex negative --> smear peripheral has been reviewed and negative for abnml cells --> tumor markers as needed/prn --> hold off on transfusion unless plt <20k --> hold off on steriods --> plt trend: 34--> 50k 2. Failure to thrive with severe protein calorie malnutrition. ->> calorie counts daily --> consider mirtazapine as needed per pcp --> getting ngtfs 3. Anemia of chronic disease --> panel has been ordered --> transfuse if hgb <7 4. Leukocytosis --> on abx as per id for infection 5. Hypertension. 6. Sick sinus syndrome. 7. Hypercholesterolemia. 8. Aortic stenosis. 9. Pulmonary hypertension. 10. Alzheimer dementia. 11. Acute tubular necrosis/acute kidney injury most likely secondary to dehydration and sepsis. Greatly appreciate consultation! Subjective Constitutional: Denies: no symptoms, chills, diaphoresis, fever, malaise, weakness, other HEENT: Denies: no symptoms, eye pain, blurred vision, tearing, double vision, ear pain, ear discharge, nose pain, nose congestion, throat pain, throat swelling, mouth pain, mouth swelling, other Cardiovascular: Denies: no symptoms, chest pain, edema, irregular heart rate, lightheadedness, palpitations, syncope, other Respiratory: Denies: no symptoms, cough, orthopnea, shortness of breath, SOB with excertion, SOB at rest, sputum, stridor, wheezing, other Gastrointestinal/Abdominal: Denies: no symptoms, abdomen distended, abdominal pain, black stools, tarry stools, blood in stool, constipated, diarrhea, difficulty swallowing, nausea, poor appetite, poor fluid intake, rectal bleeding , vomiting, other Genitourinary: Denies: no symptoms, burning, discharge, frequency, flank pain, hematuria, incontinence, pain, urgency, other Neurologic/Psychiatric: Denies: no symptoms, anxiety, depressed, emotional problems, headache, numbness, paresthesia, pre-existing deficit, seizure, tingling, tremors, weakness, other Endocrine: Denies: no symptoms, excessive sweating, flushing, intolerance to cold, intolerance to heat, increased hunger, increased thirst, increased urine, unexplained weight gain, unexplained weight loss, other Allergies: Coded Allergies: No Known Allergies (Unverified , 08/10/13) Subjective 07/01:seen by bedside, Possible EGD tomorrow to evaluate upper GI bleed, today's EGD was canceled by anesthesia, plt remains low at 34, hgb trending up . 07/02: Scheduled for EGD today,CT w/ cavitary lung lessions; placed on isolation , remains bacteremic, wbc 12. 07/04: continues to be somewhat sob, imaging reviewed, labs are better this am, plts uptrending, getting ngtfs 07/05: awake, comfortable, no events Objective Last 24 Hour Vital Signs Date Time Temp Pulse Resp B/P (MAP) Pulse Ox O2 Delivery O2 Flow Rate FiO2 07/05/18 09:28 98.1 07/05/18 09:00 Venturi Mask 12.0 07/05/18 08:00 97.9 87 22 97/52 (67) 95 07/05/18 07:50 75 07/05/18 04:00 71 07/05/18 04:00 98.1 77 18 124/76 (92) 100 07/05/18 00:00 97.9 83 18 123/58 (79) 100 07/05/18 00:00 80 07/04/18 21:00 Venturi Mask 12.0 07/04/18 20:00 98.2 87 18 134/59 (84) 100 07/04/18 20:00 82 07/04/18 18:30 98.2 94 24 114/50 (71) 100 07/04/18 16:22 99.0 102 24 125/63 (83) 100 Intake and Output 07/04/18 07/05/18 19:00 07:00 Intake Total 55 ml 55 ml Balance 55 ml 55 ml IV Total 55 ml 55 ml # Voids 1 1 # Bowel Movements 1 1 Laboratory Tests 07/05/18 07:30: White Blood Count 9.8, Red Blood Count 3.00L, Hemoglobin 8.7L, Hematocrit 26.8L , Mean Corpuscular Volume 89, Mean Corpuscular Hemoglobin 29.1, Mean Corpuscular Hemoglobin Concent 32.5, Red Cell Distribution Width 16.7H, Platelet Count 58L, Mean Platelet Volume 9.8, Neutrophils (%) (Auto) , Lymphocytes (%) (Auto) , Monocytes (%) (Auto) , Eosinophils (%) (Auto) , Basophils (%) (Auto) , Differential Total Cells Counted 100, Neutrophils % ( Manual) 88H, Lymphocytes % (Manual) 4L, Monocytes % (Manual) 2, Eosinophils % ( Manual) 0, Basophils % (Manual) 0, Band Neutrophils 6, Platelet Estimate DecreasedL, Platelet Morphology Normal, Anisocytosis 1+, Sodium Level 144, Potassium Level 4.3, Chloride Level 116H, Carbon Dioxide Level 21, Anion Gap 8, Blood Urea Nitrogen 24H, Creatinine 0.6, Estimat Glomerular Filtration Rate , Glucose Level 138H, Calcium Level 7.7L Height (Feet): 5 Height (Inches): 5.00 Weight (Pounds): 144 Objective GENERAL: Awake responsive to deep stimuli with opening of her eyes, in no apparent distress. HEENT: Eyes, pupils equal responsive to light and accommodation. ++ ngtf CHEST: Poor inspiratory effort, decreased air in the bases no wheezes or rhonchi was appreciated CARDIOVASCULAR: Regular rhythm and rate. S1 and S2 are normal without murmurs or gallops. ABDOMEN: Soft, nontender, and nondistended. Positive bowel sounds. No rebounding or guarding noted. EXTREMITIES: Negative for clubbing, cyanosis, or edema, muscle atrophy in bilateral lower extremity RECTAL/GENITAL: Not performed. NEUROLOGIC:somewhat responsive, better than before Kadeem Bennett MD Jul 05, 2018 16:15
--- NOTE | 2018-07-05 16:50 | Internal Med Progress Note ---
Subjective Date of Service: Jul 05, 2018 Physician Name Aquilino Matthews Attending Physician Carlos Alberto Berkowitz MD Current Medications Medications (Trade) Dose Ordered Sig/Yi Route PRN Reason Start Time Stop Time Status Last Admin Dose Admin Acetaminophen (Tylenol) 650 mg Q4H PRN NG Mild Pain/Temp > 100.5 07/05/18 16:30 07/29/18 16:29 Ceftaroline Fosamil 400 mg/ Sodium Chloride 55 ml @ 55 mls/hr Q12HR IV 07/05/18 21:00 07/10/18 08:59 Clonidine HCl (Catapres Tab) 0.1 mg Q8H PRN NG SBP>160mmHg 07/05/18 16:30 07/25/18 16:29 Daptomycin 400 mg/ Sodium Chloride 55 ml @ 100 mls/hr Q24H IV 07/05/18 18:00 07/07/18 17:59 Dextrose (Dextrose 50%) 25 ml Q30M PRN IV Hypoglycemia 07/05/18 16:45 07/24/18 13:30 Dextrose (Dextrose 50%) 50 ml Q30M PRN IV hypoglycemia 07/05/18 16:45 07/24/18 13:44 Insulin Aspart (NovoLOG) EVERY 6 HOURS SUBQ 07/05/18 18:00 07/24/18 16:29 Lansoprazole (Prevacid) 30 mg DAILY NG 07/06/18 09:00 08/02/18 08:59 Olanzapine (ZyPREXA) 2.5 mg BID NG 07/05/18 18:00 07/25/18 10:59 Ondansetron HCl (Zofran) 4 mg Q6H PRN IVP Nausea & Vomiting 07/05/18 16:30 07/25/18 16:29 Allergies: Coded Allergies: No Known Allergies (Unverified , 08/10/13) ROS Limited/Unobtainable: Yes Subjective 82 YO F admitted with dehydration and hypoxia. Now sepsis. Cover for Int Med- Dr Berkowitz. Continues on venturi mask. Transfered to [facility] for hypotension Objective Last Vital Signs Date Time Temp Pulse Resp B/P (MAP) Pulse Ox O2 Delivery O2 Flow Rate FiO2 07/05/18 12:00 79 07/05/18 09:28 98.1 07/05/18 09:00 Venturi Mask 12.0 07/05/18 08:00 22 97/52 (67) 95 07/04/18 08:11 100 Laboratory Tests Test 07/05/18 07:30 White Blood Count 9.8 K/UL (4.8-10.8) Red Blood Count 3.00 M/UL (4.20-5.40) L Hemoglobin 8.7 G/DL (12.0-16.0) L Hematocrit 26.8 % (37.0-47.0) L Mean Corpuscular Volume 89 FL (80-99) Mean Corpuscular Hemoglobin 29.1 PG (27.0-31.0) Mean Corpuscular Hemoglobin Concent 32.5 G/DL (32.0-36.0) Red Cell Distribution Width 16.7 % (11.6-14.8) H Platelet Count 58 K/UL (150-450) L Mean Platelet Volume 9.8 FL (6.5-10.1) Neutrophils (%) (Auto) % (45.0-75.0) Lymphocytes (%) (Auto) % (20.0-45.0) Monocytes (%) (Auto) % (1.0-10.0) Eosinophils (%) (Auto) % (0.0-3.0) Basophils (%) (Auto) % (0.0-2.0) Differential Total Cells Counted 100 Neutrophils % (Manual) 88 % (45-75) H Lymphocytes % (Manual) 4 % (20-45) L Monocytes % (Manual) 2 % (1-10) Eosinophils % (Manual) 0 % (0-3) Basophils % (Manual) 0 % (0-2) Band Neutrophils 6 % (0-8) Platelet Estimate Decreased L Platelet Morphology Normal Anisocytosis 1+ Sodium Level 144 MMOL/L (136-145) Potassium Level 4.3 MMOL/L (3.5-5.1) Chloride Level 116 MMOL/L (98-107) H Carbon Dioxide Level 21 MMOL/L (21-32) Anion Gap 8 mmol/L (5-15) Blood Urea Nitrogen 24 mg/dL (7-18) H Creatinine 0.6 MG/DL (0.55-1.30) Estimat Glomerular Filtration Rate mL/min (>60) Glucose Level 138 MG/DL (74-106) H Calcium Level 7.7 MG/DL (8.5-10.1) L Microbiology Date/Time Source Procedure Growth Status 07/03/18 08:45 Blood Blood Culture - Preliminary Staphylococcus Aureus Resulted 07/03/18 08:20 Blood Blood Culture - Preliminary Staphylococcus Aureus Resulted 07/05/18 03:25 Sputum Expectorated Gram Stain - Final Resulted 07/05/18 03:25 Sputum Expectorated Sputum Culture Pending Resulted Intake and Output 07/04/18 07/05/18 18:59 06:59 Intake Total 55 ml 55 ml Balance 55 ml 55 ml IV Total 55 ml 55 ml # Voids 1 1 # Bowel Movements 1 1 Objective Objective General: No acute distress, awake and less responsive, Sleepy, cachectic. HEENT: NCAT, sclera anicteric, PERRL, NG tube. Neck: Supple, no significant jugular venous distention, Lungs: Non-rebreather mask; Poor inspiratory effort, decreased air in the bases , Bilateral Wheeze and Rales. Heart: Regular rate and rhythm, normal S1/S2, no murmur. Abdomen: soft, nontender, nondistended. Normoactive bowel sounds. / Rectal: Refused and deferred. Extremities: No Cyanosis , No clubbing, Left UE edema. Lateral lower extremity / feet dressing intact. Neuro: A&O x 1, Able to move all extremities Skin: warm, no rashes or lesions, ecchymosis in bilateral upper extremity noted. Assessment/Plan Assessment/Plan Assessment/Plan Assessment/Plan 1. Sepsis / METHACILLIN RESISTANT STAPHYLOCOCCUS AUREUS bacteremia, lactic acidosis. 2. Failure to thrive with severe protein calorie malnutrition. 3. Coronary artery disease. 4. Diabetes, type 2. 5. Hypertension. 6. Sick sinus syndrome. 7. Hypercholesterolemia. 8. Aortic stenosis. 9. Pulmonary hypertension. 10. Alzheimer dementia. 11. Acute tubular necrosis/acute kidney injury most likely secondary to dehydration and sepsis. 12. Sacral decubitus ulcer, stage III 13. Severe dehydration 14. Hypokalemia. 15. Abnormal liver function test 16. Anemia/thrombocytopenia 17. Bilateral pneumonia ?septic emboli? TREATMENT: 1. Patient on broad spectrum antibiotics with vancomycin and Zosyn IV. Will require transesophageal echocardiogram to R/O endocarditis-see ID note 2. Coronary artery disease. The patient is status post coronary artery bypass graft in 2017. 3. Diabetes, type 2. The patient has been started on NovoLog sliding scale. 4. Hypertension. The patient is to continue on atenolol and losartan as above. 5. Sick sinus syndrome. The patient is status post pacemaker implantation. 6. Hypercholesterolemia. Continue simvastatin as above. 7. Aortic stenosis. 8. Pulmonary hypertension. 9. Alzheimer dementia. 10. Anemia/thrombocytopenia-S/P 1 unit PRBC on 06/28/18. Heme/Onc consult. Hold heparin 11. Septic pulmonary emboli-await NELDA on Thursday07/06/18-see cardiology note. Restart tube feeding at rate of 45 cc/hr. CODE STATUS is full code as per [facility], DVT prophylaxis: D/C Heparin subcu due to thrombocytopenia Aquilino Matthews MD Jul 05, 2018 16:50
[2018-07-05] MEDS ORDERED: DAPTOmycin 400 MG in NS 55 ML IV SCH (18:00)
--- NOTE | 2018-07-05 18:12 | Cardiology Progress Note ---
Assessment/Plan Assessment/Plan staph sepsis, probably endocarditis severe malnutrition multiple decubiti advanced dementia the patient looks better today, if she improves, consider NELDA to assess endocarditis on her leads and consider leads removal Subjective Subjective The patient looks a little better, she is not screaming so much and is slightly more alert has severe generalzied pain all over Objective Last 24 Hour Vital Signs Date Time Temp Pulse Resp B/P (MAP) Pulse Ox O2 Delivery O2 Flow Rate FiO2 07/05/18 16:00 98.6 89 26 102/83 (89) 100 07/05/18 16:00 Non-Rebreather 15.0 07/05/18 12:00 98.0 74 22 100/62 (75) 100 07/05/18 12:00 79 07/05/18 09:28 98.1 07/05/18 09:00 Venturi Mask 12.0 07/05/18 08:00 97.9 87 22 97/52 (67) 95 07/05/18 07:50 75 07/05/18 04:00 71 07/05/18 04:00 98.1 77 18 124/76 (92) 100 07/05/18 00:00 97.9 83 18 123/58 (79) 100 07/05/18 00:00 80 07/04/18 21:00 Venturi Mask 12.0 07/04/18 20:00 98.2 87 18 134/59 (84) 100 07/04/18 20:00 82 07/04/18 18:30 98.2 94 24 114/50 (71) 100 General Appearance: severe distress EENT: PERRL/EOMI Neck: supple Rhythm: NSR Cardiovascular: tachycardia Respiratory/Chest: decreased breath sounds, accessory muscle use, crackles/ rales Abdomen: distended Extremities: other - anasarca, dependent edema heel ulcers bialterally Intake and Output 07/04/18 07/05/18 19:00 07:00 Intake Total 55 ml 55 ml Balance 55 ml 55 ml IV Total 55 ml 55 ml # Voids 1 1 # Bowel Movements 1 1 Laboratory Tests Test 07/05/18 07:30 White Blood Count 9.8 K/UL (4.8-10.8) Red Blood Count 3.00 M/UL (4.20-5.40) L Hemoglobin 8.7 G/DL (12.0-16.0) L Hematocrit 26.8 % (37.0-47.0) L Mean Corpuscular Volume 89 FL (80-99) Mean Corpuscular Hemoglobin 29.1 PG (27.0-31.0) Mean Corpuscular Hemoglobin Concent 32.5 G/DL (32.0-36.0) Red Cell Distribution Width 16.7 % (11.6-14.8) H Platelet Count 58 K/UL (150-450) L Mean Platelet Volume 9.8 FL (6.5-10.1) Neutrophils (%) (Auto) % (45.0-75.0) Lymphocytes (%) (Auto) % (20.0-45.0) Monocytes (%) (Auto) % (1.0-10.0) Eosinophils (%) (Auto) % (0.0-3.0) Basophils (%) (Auto) % (0.0-2.0) Differential Total Cells Counted 100 Neutrophils % (Manual) 88 % (45-75) H Lymphocytes % (Manual) 4 % (20-45) L Monocytes % (Manual) 2 % (1-10) Eosinophils % (Manual) 0 % (0-3) Basophils % (Manual) 0 % (0-2) Band Neutrophils 6 % (0-8) Platelet Estimate Decreased L Platelet Morphology Normal Anisocytosis 1+ Sodium Level 144 MMOL/L (136-145) Potassium Level 4.3 MMOL/L (3.5-5.1) Chloride Level 116 MMOL/L (98-107) H Carbon Dioxide Level 21 MMOL/L (21-32) Anion Gap 8 mmol/L (5-15) Blood Urea Nitrogen 24 mg/dL (7-18) H Creatinine 0.6 MG/DL (0.55-1.30) Estimat Glomerular Filtration Rate mL/min (>60) Glucose Level 138 MG/DL (74-106) H Calcium Level 7.7 MG/DL (8.5-10.1) L Microbiology Date/Time Source Procedure Growth Status 07/03/18 08:45 Blood Blood Culture - Preliminary Staphylococcus Aureus Resulted 07/03/18 08:20 Blood Blood Culture - Preliminary Staphylococcus Aureus Resulted 07/05/18 03:25 Sputum Expectorated Gram Stain - Final Resulted 07/05/18 03:25 Sputum Expectorated Sputum Culture Pending Resulted Karol Oliver MD Jul 05, 2018 18:12
--- NOTE | 2018-07-05 19:20 | NUR ---
NURSE NOTES: Received patient from SOILA Mcgee. Patient is awake and resting comfortably in bed. Patient is non-verbal, eyes opened and making contact. On 15L non-rebreather mask and showing no signs and symptoms of pain and/or distress. Will continue plan of care.
[2018-07-05] MEDS ORDERED: Tubing Blood Filter IV ONE ×2 (19:55→20:14)
[2018-07-05] MEDS ORDERED: NS 275ml ONE ×2 (19:55→20:14)
[2018-07-05 20:00] VITALS: BP 115/57
--- NOTE | 2018-07-05 20:11 | NUR ---
HAND-OFF: Report given to Mikey Alcaraz RN. Patient noted with BS of 59, PRN medication of D50 50 ml given via right midline catheter, BS now 107. Dr. Mancera made aware
[2018-07-05] MEDS ORDERED: D5 1/2NS 1000ml IV ONE (20:14)
[2018-07-05] MEDS ORDERED: Tubing IV Secondary IV ONE (20:14)
--- NOTE | 2018-07-05 21:44 | General Progress Note ---
Assessment/Plan Problem List: (1) Acute encephalopathy Assessment & Plan: metabolic ICD Codes: G93.40 - Encephalopathy, unspecified SNOMED: 07209266, 010207315 (2) Delirium ICD Codes: R41.0 - Disorientation, unspecified SNOMED: 0925444 (3) Alzheimer's dementia ICD Codes: G30.9 - Alzheimer's disease, unspecified; F02.80 - Dementia in other diseases classified elsewhere without behavioral disturbance SNOMED: 88594596 Assessment/Plan Zyprexa the pt lacks capacity soft restraints if needed Subjective Allergies: Coded Allergies: No Known Allergies (Unverified , 08/10/13) Subjective cont to be agitated waxing and waning Objective Last 24 Hour Vital Signs Date Time Temp Pulse Resp B/P (MAP) Pulse Ox O2 Delivery O2 Flow Rate FiO2 07/05/18 20:00 Non-Rebreather 15.0 07/05/18 20:00 98.2 73 18 115/57 (76) 100 07/05/18 16:00 98.6 89 26 102/83 (89) 100 07/05/18 16:00 Non-Rebreather 15.0 07/05/18 16:00 74 07/05/18 12:00 98.0 74 22 100/62 (75) 100 07/05/18 12:00 79 07/05/18 09:28 98.1 07/05/18 09:00 Venturi Mask 12.0 07/05/18 08:00 97.9 87 22 97/52 (67) 95 07/05/18 07:50 75 07/05/18 04:00 71 07/05/18 04:00 98.1 77 18 124/76 (92) 100 07/05/18 00:00 97.9 83 18 123/58 (79) 100 07/05/18 00:00 80 Intake and Output 07/04/18 07/05/18 18:59 06:59 Intake Total 55 ml 55 ml Balance 55 ml 55 ml IV Total 55 ml 55 ml # Voids 1 1 # Bowel Movements 1 1 Laboratory Tests 07/05/18 07:30: White Blood Count 9.8, Red Blood Count 3.00L, Hemoglobin 8.7L, Hematocrit 26.8L , Mean Corpuscular Volume 89, Mean Corpuscular Hemoglobin 29.1, Mean Corpuscular Hemoglobin Concent 32.5, Red Cell Distribution Width 16.7H, Platelet Count 58L, Mean Platelet Volume 9.8, Neutrophils (%) (Auto) , Lymphocytes (%) (Auto) , Monocytes (%) (Auto) , Eosinophils (%) (Auto) , Basophils (%) (Auto) , Differential Total Cells Counted 100, Neutrophils % ( Manual) 88H, Lymphocytes % (Manual) 4L, Monocytes % (Manual) 2, Eosinophils % ( Manual) 0, Basophils % (Manual) 0, Band Neutrophils 6, Platelet Estimate DecreasedL, Platelet Morphology Normal, Anisocytosis 1+, Sodium Level 144, Potassium Level 4.3, Chloride Level 116H, Carbon Dioxide Level 21, Anion Gap 8, Blood Urea Nitrogen 24H, Creatinine 0.6, Estimat Glomerular Filtration Rate , Glucose Level 138H, Calcium Level 7.7L Height (Feet): 5 Height (Inches): 5.00 Weight (Pounds): 144 Lena Bob MD Jul 05, 2018 21:44
--- NOTE | 2018-07-05 21:48 | Diagnostic Imaging Report ---
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 Remainder of the deep venous system within normal limits. No evidence of thrombus within the superficial femoral, popliteal or tibial segments. Greater saphenous vein also within normal limits. Doppler indicates normal spontaneous flow within these segments. LEFT LEG: Venous imaging reveals a patent deep venous system. There is no evidence of thrombus within the femoral, popliteal or tibial segments. The greater saphenous vein is also within normal limits. Doppler indicates normal spontaneous flow within these segments. There is no evidence of acute deep vein thrombosis.
[2018-07-06] VITALS: BP 129/63
[2018-07-06 04:00] VITALS: BP 147/66
[2018-07-06 05:42] LABS: HEMATOCRIT 30.8 % (37.0-47.0); HEMOGLOBIN 9.6 G/DL (12.0-16.0); MEAN CORPUSCULAR VOLUME 91 FL (80-99); PLATELET COUNT 87 K/UL (150-450); RED BLOOD COUNT 3.36 M/UL (4.20-5.40); RED CELL DISTRIBUTION WIDTH 19.9 % (11.6-14.8); WHITE BLOOD COUNT 7.4 K/UL (4.8-10.8)
[2018-07-06] MEDS: NovoLOG Insulin Flexpen SUBQ SCH ×4 (05:51→23:57)
[2018-07-06 06:16] LABS: ANION GAP 9 mmol/L (5-15); BLOOD UREA NITROGEN 24 mg/dL (7-18); CALCIUM 7.8 MG/DL (8.5-10.1); CARBON DIOXIDE 19 MMOL/L (21-32); CHLORIDE 116 MMOL/L (98-107); CREATININE 0.7 MG/DL (0.55-1.30); POTASSIUM 4.8 MMOL/L (3.5-5.1); SODIUM 144 MMOL/L (136-145)
--- NOTE | 2018-07-06 07:20 | NUR ---
HAND-OFF: Report given to SOILA Gonzalez.
--- NOTE | 2018-07-06 07:20 | NUR ---
NURSE NOTES: Received patient from SOILA Dias. Patient VS stable at this time. patient confused at this time. Patient alert to name but confused about everything else. Patient does not respond to questions at this time. Patients eyes open. Patient yells out but does not form sentences at this time. Patient on nonrebreather mask at 15L at this time. Patient tolerating mask with oxygen saturation of 99% at this time. Patient has a left nares nasogastric tube that is patent, asymptomatic, and running Glucerna 1.2 at 55mL/hr at this time. Patient has a purewick that is patent and draining at this time. Patient has a sacral stage 3 pressure ulcer. Will monitor. Patient is on a pressure release mattress at this time. Patient has bilateral heal DTI. Patient will be turned every 2 hours and as needed. Patient has a left upper arm midline that is patent, asymptomatic, and saline locked at this time. Patient has a right hand 22G PIV and a left thumb 24G PIV that are both patent and asymptomatic at this time. Patient bed in low position with bed alarm on and call light in reach at this time. Patient's blood sugar dropped yesterday around 6pm. Dr Mancera is aware. Patient's blood sugar was stable throughout the night. Patient has an order for EGF and NELDA, but the patient has not been stable enough for these tests to be performed. Will follow up and continue to monitor at this time. Patient bed in low position with bed alarm on and call light in reach at this time. Addendum: 07/06/18 at 1104 by Lisa Pack RN Patient's left upper arm is red and swollen at this time. This was not endorsed to me. Will follow up with MD to ensure that they are aware.
[2018-07-06] MEDS ORDERED: Midazolam 2mg/2ml Inj IVP PRN (07:45)
[2018-07-06] MEDS ORDERED: fentaNYL 100 mcg/2 mL IV PRN (07:45)
[2018-07-06] MEDS ORDERED: Atropine Inj 1mg/10ml Syr IV PRN (07:45)
[2018-07-06] MEDS ORDERED: DiphenhydrAMINE 50mg/ml Inj IVP PRN (07:45)
--- NOTE | 2018-07-06 07:52 | Anethesia Preoperative Eval ---
Anesthesia Pre-op PMH/ROS General Date of Evaluation: Jul 06, 2018 Time of Evaluation: 07:46 Anesthesiologist: nalini Mallampati Score Class I : Soft palate, uvula, fauces, pillars visible Class II: Soft palate, uvula, fauces visible Class III: Soft palate, base of uvula visible Class IV: Only hard plate visible Surgeon: rachael butts Diagnosis: possible endocarditis Surgical Procedure: larissa Allergies: Coded Allergies: No Known Allergies (Unverified , 08/10/13) NPO Date: Jul 01, 2018 NPO Time: 00:00 Anesthesia Pre-op Phys. Exam Physician Exam Last Vital Signs Date Time Temp Pulse Resp B/P (MAP) Pulse Ox O2 Delivery O2 Flow Rate FiO2 07/06/18 04:00 Non-Rebreather 15.0 07/06/18 04:00 98.4 86 19 147/66 (93) 100 07/04/18 08:11 100 Airway Exam Mallampati Score: Class II Anesthesia Pre-op A/P Labs Hematology Test 07/06/18 04:15 White Blood Count 7.4 K/UL (4.8-10.8) Red Blood Count 3.36 M/UL (4.20-5.40) L Hemoglobin 9.6 G/DL (12.0-16.0) L Hematocrit 30.8 % (37.0-47.0) L Mean Corpuscular Volume 91 FL (80-99) Mean Corpuscular Hemoglobin 28.6 PG (27.0-31.0) Mean Corpuscular Hemoglobin Concent 31.3 G/DL (32.0-36.0) L Red Cell Distribution Width 19.9 % (11.6-14.8) H Platelet Count 87 K/UL (150-450) L Mean Platelet Volume 10.1 FL (6.5-10.1) Neutrophils (%) (Auto) % (45.0-75.0) Lymphocytes (%) (Auto) % (20.0-45.0) Monocytes (%) (Auto) % (1.0-10.0) Eosinophils (%) (Auto) % (0.0-3.0) Basophils (%) (Auto) % (0.0-2.0) Chemistry Test 07/06/18 04:15 Sodium Level 144 MMOL/L (136-145) Potassium Level 4.8 MMOL/L (3.5-5.1) Chloride Level 116 MMOL/L (98-107) H Carbon Dioxide Level 19 MMOL/L (21-32) L Anion Gap 9 mmol/L (5-15) Blood Urea Nitrogen 24 mg/dL (7-18) H Creatinine 0.7 MG/DL (0.55-1.30) Estimat Glomerular Filtration Rate mL/min (>60) Glucose Level 205 MG/DL (74-106) H Calcium Level 7.8 MG/DL (8.5-10.1) L Regine Dominique MD Jul 06, 2018 07:52
[2018-07-06 08:00] VITALS: BP 158/81
--- NOTE | 2018-07-06 08:07 | NUR ---
NURSE NOTES: Cardiology and GI lab called to confirm NELDA scheduled for today. Patient is not NPO at this time. It was endorsed to me that the patient is not stable enough for NELDA this morning. Will follow up with Dr Fischer.
--- NOTE | 2018-07-06 08:27 | NUR ---
NURSE NOTES: Notified by Dr Fischer that Dr Oliver is the hospital cna on the case.
[2018-07-06] MEDS: Ceftaroline 400 MG in NS 55 ML IV SCH ×2 (08:43→21:33)
[2018-07-06] MEDS: OLANZapine 2.5mg tab NG SCH ×2 (08:43→18:45)
--- NOTE | 2018-07-06 09:30 | NUR ---
NURSE NOTES: A nurse that was assisting this patient's nurse yesterday reported that this patient's arm was swollen yesterday as well.
--- NOTE | 2018-07-06 09:49 | NUR ---
NURSE NOTES: Left message for Dr Oliver regarding NELDA scheduled for this morning. Patient was unable to have NELDA done this morning. Patient is on 100% non-rebreather mask at this time. Also notified cardiology that Dr Oliver has been notified. Cardiology reported that when Dr Fischer was notified by them, he reported that he would also prefer not to do the NELDA this morning due to the patient's respiratory instability.
--- NOTE | 2018-07-06 10:08 | NUR ---
Dr Oliver called back. I told her that we were not able to do the NELDA this morning due to the patient being unstable, and she reported "If the patient needs NELDA, I will do the NELDA."
--- NOTE | 2018-07-06 10:13 | NUR ---
Social Service Note SW has left multiple messages for patient's dgt Celine [phone], with no return call. Will monitor and discussed with primary nurse if dgt calls to inform LINN.
[2018-07-06] MEDS: Acetaminophen 650mg/20.3ml NG PRN ×2 (10:54→18:46)
--- NOTE | 2018-07-06 11:02 | NUR ---
NURSE NOTES: Arterial and venous duplex of the left upper arm ordered STAT this morning. Called vascular lab to verify that they are on their way. Will follow up and assist in holding the patient's arm for the test if needed.
--- NOTE | 2018-07-06 11:10 | Pulmonology Progress Note ---
Assessment/Plan Problems: (1) Sepsis (2) Thrombocytopenia (3) ATN (acute tubular necrosis) (4) Pulmonary hypertension (5) Sacral decubitus ulcer, stage III (6) Alzheimer's dementia (7) Protein-calorie malnutrition, severe (8) HTN (hypertension) (9) Pacemaker (10) CAD (coronary artery disease) Assessment/Plan on NRM /u PLT, better today up to 80 failed swallow study Morphine prn d/w wound care nurse, mckeon cultures, still positive iv fluids check electrolytes sliding scale check electrolytes daily broad spectrum abx dvt prophylaxis insulin coverage. social service consult might need removal of pacemaker leads, d/W dr Bardales, Cardiology wants to wait until pt hemodynamically better to do an NELDA to find out if the they are infected. Subjective ROS Limited/Unobtainable: No Constitutional: Reports: no symptoms HEENT: Repors: no symptoms Respiratory: Reports: no symptoms Allergies: Coded Allergies: No Known Allergies (Unverified , 08/10/13) Objective Last 24 Hour Vital Signs Date Time Temp Pulse Resp B/P (MAP) Pulse Ox O2 Delivery O2 Flow Rate FiO2 07/06/18 09:19 81 20 Non-Rebreather 15.0 07/06/18 09:19 Non-Rebreather 15.0 100 07/06/18 09:19 93 Non-Rebreather 15.0 07/06/18 08:00 97.9 90 22 158/81 (106) 100 07/06/18 07:57 Non-Rebreather 15.0 07/06/18 07:44 75 07/06/18 04:00 Non-Rebreather 15.0 07/06/18 04:00 98.4 86 19 147/66 (93) 100 07/06/18 03:20 79 07/06/18 00:04 78 07/06/18 00:00 Non-Rebreather 15.0 07/06/18 00:00 97.7 80 20 129/63 (85) 99 07/05/18 20:00 Non-Rebreather 15.0 07/05/18 20:00 98.2 73 18 115/57 (76) 100 07/05/18 20:00 81 07/05/18 16:00 98.6 89 26 102/83 (89) 100 07/05/18 16:00 Non-Rebreather 15.0 07/05/18 16:00 74 07/05/18 12:00 98.0 74 22 100/62 (75) 100 07/05/18 12:00 79 Intake and Output 07/05/18 07/06/18 19:00 07:00 Intake Total 270 ml 715 ml Output Total 600 ml Balance -330 ml 715 ml IV Total 55 ml 55 ml Tube Feeding 165 ml 660 ml Other 50 ml Output Urine Total 600 ml # Voids 3 # Bowel Movements 2 2 Objective General Appearance: cachectic HEENT: normocephalic, somnolent Respiratory/Chest: chest wall non-tender,loud rhonchi Cardiovascular: normal peripheral pulses, normal rate Abdomen: normal bowel sounds, soft, non tender Extremities: no cyanosis Skin: no rash Microbiology Date/Time Source Procedure Growth Status 07/05/18 07:30 Blood Blood Culture - Preliminary Resulted 07/05/18 07:20 Blood Blood Culture - Preliminary Resulted 07/05/18 03:25 Sputum Expectorated Gram Stain - Final Resulted 07/05/18 03:25 Sputum Culture - Preliminary Gram Negative Bacillus 1 Gram Negative Bacillus 2 Resulted Laboratory Tests 07/06/18 04:15: White Blood Count 7.4, Red Blood Count 3.36L, Hemoglobin 9.6L, Hematocrit 30.8L , Mean Corpuscular Volume 91, Mean Corpuscular Hemoglobin 28.6, Mean Corpuscular Hemoglobin Concent 31.3L, Red Cell Distribution Width 19.9H, Platelet Count 87L, Mean Platelet Volume 10.1, Neutrophils (%) (Auto) , Lymphocytes (%) (Auto) , Monocytes (%) (Auto) , Eosinophils (%) (Auto) , Basophils (%) (Auto) , Sodium Level 144, Potassium Level 4.8, Chloride Level 116H, Carbon Dioxide Level 19L, Anion Gap 9, Blood Urea Nitrogen 24H, Creatinine 0.7, Estimat Glomerular Filtration Rate , Glucose Level 205H, Calcium Level 7.8L Current Medications Medications (Trade) Dose Ordered Sig/Yi Route PRN Reason Start Time Stop Time Status Last Admin Dose Admin Acetaminophen (Tylenol) 650 mg Q4H PRN NG Mild Pain/Temp > 100.5 07/05/18 16:30 07/29/18 16:29 07/06/18 10:54 Al Hydroxide/Mg Hydroxide (Mylanta) 15 ml Q1H PRN ORAL gi upset 07/06/18 07:45 07/06/18 18:00 Atropine Sulfate (Atropine) 0.5 mg Q5M PRN IV bpm less than 45 07/06/18 07:45 07/06/18 18:00 Ceftaroline Fosamil 400 mg/ Sodium Chloride 55 ml @ 55 mls/hr Q12HR IV 07/05/18 21:00 07/10/18 08:59 07/06/18 08:43 Clonidine HCl (Catapres Tab) 0.1 mg Q8H PRN NG SBP>160mmHg 07/05/18 16:30 07/25/18 16:29 Daptomycin 400 mg/ Sodium Chloride 55 ml @ 100 mls/hr Q24H IV 07/05/18 18:00 07/07/18 17:59 07/05/18 18:30 Dextrose (Dextrose 50%) 25 ml Q30M PRN IV Hypoglycemia 07/05/18 16:45 07/24/18 13:30 Dextrose (Dextrose 50%) 50 ml Q30M PRN IV hypoglycemia 07/05/18 16:45 07/24/18 13:44 07/05/18 19:28 Diphenhydramine HCl (Benadryl) 25 mg Q15M PRN IVP Itching 07/06/18 07:45 07/06/18 18:00 Fentanyl Citrate (Sublimaze 100 mcg/2 mL) 25 mcg Q10M PRN IV Moderate Pain (Pain Scale 4-6) 07/06/18 07:45 07/06/18 18:00 Hydralazine HCl (Apresoline) 5 mg Q30M PRN IV SBP>160 OR___/DBP>90 OR___ 07/06/18 07:45 07/06/18 18:00 Insulin Aspart (NovoLOG) EVERY 6 HOURS SUBQ 07/05/18 18:00 07/24/18 16:29 07/06/18 05:51 Lansoprazole (Prevacid) 30 mg DAILY NG 07/06/18 09:00 08/02/18 08:59 07/06/18 08:43 Midazolam HCl (Versed 2mg/2ml vial) 1 mg Q15M PRN IVP For Anxiety 07/06/18 07:45 07/06/18 18:00 Olanzapine (ZyPREXA) 2.5 mg BID NG 07/05/18 18:00 07/25/18 10:59 07/06/18 08:43 Ondansetron HCl (Zofran) 4 mg Q1H PRN IVP Nausea & Vomiting 07/06/18 07:45 07/06/18 18:00 Ondansetron HCl (Zofran) 4 mg Q6H PRN IVP Nausea & Vomiting 07/05/18 16:30 07/25/18 16:29 Rod Mancera MD Jul 06, 2018 11:10
--- NOTE | 2018-07-06 11:18 | Infectious Diseases Prog Note ---
Assessment/Plan Assessment/Plan 82 yo female with PMHx DM, CAD, Alzheimer dementia and Hip fracture who presents with dehydration and weakness. 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 Given normal appearing chest radiograph on 06/24/2018, these are overwhelmingly likely infectious/inflammatory in nature. Most likely represent septic pulmonary emboli. The possibility of mycobacterial infection should also be included, deemed less likely given absence of adenopathy but still possible. Differential considerations also include fungal infections, noninfectious inflammatory processes. Other noncavitary nodules are also demonstrated, with the same differential. Large right and [id number] left pleural effusions. Compressive atelectasis of the majority of the right lower lobe. Infiltrates seen in the right upper lobe. Bilateral pacemaker. Evidence of central venoocclusive disease. Wedge-shaped area of low-attenuation in the upper pole of the spleen, suspicious for infarct. -2d Echo (limited study due to contractures): no vegetations seen -06/27 Bcx /MRSA; 06/28 Bcx 06/21 MRSA; 06/29 08/19 MRSA; 07/01 Bcx / MRSA 06/25/18 Blood Cx 08/19 MRSA 06/24/18 Wound Cx MRSA, ESBL E.coli (S ZOsyn), K. pna (S Zosyn) Leukocytosis, recurrent, increasing Low grade fever; improving Positive UA CXR neg Thrombocytopenia- HIT vs medication related Pressure ulcers Not infected Right hip fracture with hemiarthroplasty Feb 2018 DM HTN Sick sinus syndrome sp Pacemaker HLD CAD - SP DE and CABG Aortic stenosis. Pulmonary hypertension. Alzheimer dementia. PLAN - Continue Daptomycin #7 (abx d #12) and Ceftaroline #5 given persistent MRSA Bacteremia - repeat 2 sets of Bcx daily until clearance of bacteremia -06/30 SP Vancomycin #6 -06/30 SP Zosyn #4 -06/27 SP Cefepime #3 -Will need NELDA and removal of PPM for bacteremia clearance/source control if consistent with goals of care -plan for NELDA when more stable -placed on airborne isolation -f/u AFB s/cx x3, MTB PCR x1 - f/u repeat cultures - Monitor CBC and temps - wound care - Nutritional support -f/u cocci, crAg, histo, blasto serologies -CXR Thank you for this consult. We will continue to follow the patient during this hospitalization. Subjective Allergies: Coded Allergies: No Known Allergies (Unverified , 08/10/13) Subjective ; afebrile still bacteremic afb sputum collection pending on NRB Objective Vital Signs Last 24 Hour Vital Signs Date Time Temp Pulse Resp B/P (MAP) Pulse Ox O2 Delivery O2 Flow Rate FiO2 07/06/18 09:19 81 20 Non-Rebreather 15.0 07/06/18 09:19 Non-Rebreather 15.0 100 07/06/18 09:19 93 Non-Rebreather 15.0 07/06/18 08:00 97.9 90 22 158/81 (106) 100 07/06/18 07:57 Non-Rebreather 15.0 07/06/18 07:44 75 07/06/18 04:00 Non-Rebreather 15.0 07/06/18 04:00 98.4 86 19 147/66 (93) 100 07/06/18 03:20 79 07/06/18 00:04 78 07/06/18 00:00 Non-Rebreather 15.0 07/06/18 00:00 97.7 80 20 129/63 (85) 99 07/05/18 20:00 Non-Rebreather 15.0 07/05/18 20:00 98.2 73 18 115/57 (76) 100 07/05/18 20:00 81 07/05/18 16:00 98.6 89 26 102/83 (89) 100 07/05/18 16:00 Non-Rebreather 15.0 07/05/18 16:00 74 07/05/18 12:00 98.0 74 22 100/62 (75) 100 07/05/18 12:00 79 Height (Feet): 5 Height (Inches): 5.00 Weight (Pounds): 144 Objective Gen: Moaning, Awake but no following HEENT: NCAT, MMM, EOMI, PERRL LUNGS: CTAB, No W CARDS: RRR, S1, S2, No M/R/G, ABD: Soft, NT, ND, + BS Ext: Poor circulation to Ext (cool to touch) , Pulses 2+ B/L (DP, Rad): SKIN: Dry, No rashes, Large sacral ulcer. Mild odor no surrounding cellulitis, foot with eschar Microbiology Date/Time Source Procedure Growth Status 07/05/18 07:30 Blood Blood Culture - Preliminary Resulted 07/05/18 07:20 Blood Blood Culture - Preliminary Resulted 07/05/18 03:25 Sputum Expectorated Gram Stain - Final Resulted 07/05/18 03:25 Sputum Culture - Preliminary Gram Negative Bacillus 1 Gram Negative Bacillus 2 Resulted Laboratory Tests Test 07/06/18 04:15 White Blood Count 7.4 K/UL (4.8-10.8) Red Blood Count 3.36 M/UL (4.20-5.40) L Hemoglobin 9.6 G/DL (12.0-16.0) L Hematocrit 30.8 % (37.0-47.0) L Mean Corpuscular Volume 91 FL (80-99) Mean Corpuscular Hemoglobin 28.6 PG (27.0-31.0) Mean Corpuscular Hemoglobin Concent 31.3 G/DL (32.0-36.0) L Red Cell Distribution Width 19.9 % (11.6-14.8) H Platelet Count 87 K/UL (150-450) L Mean Platelet Volume 10.1 FL (6.5-10.1) Neutrophils (%) (Auto) % (45.0-75.0) Lymphocytes (%) (Auto) % (20.0-45.0) Monocytes (%) (Auto) % (1.0-10.0) Eosinophils (%) (Auto) % (0.0-3.0) Basophils (%) (Auto) % (0.0-2.0) Sodium Level 144 MMOL/L (136-145) Potassium Level 4.8 MMOL/L (3.5-5.1) Chloride Level 116 MMOL/L (98-107) H Carbon Dioxide Level 19 MMOL/L (21-32) L Anion Gap 9 mmol/L (5-15) Blood Urea Nitrogen 24 mg/dL (7-18) H Creatinine 0.7 MG/DL (0.55-1.30) Estimat Glomerular Filtration Rate mL/min (>60) Glucose Level 205 MG/DL (74-106) H Calcium Level 7.8 MG/DL (8.5-10.1) L Current Medications Medications (Trade) Dose Ordered Sig/Yi Route PRN Reason Start Time Stop Time Status Last Admin Dose Admin Acetaminophen (Tylenol) 650 mg Q4H PRN NG Mild Pain/Temp > 100.5 07/05/18 16:30 07/29/18 16:29 07/06/18 10:54 Al Hydroxide/Mg Hydroxide (Mylanta) 15 ml Q1H PRN ORAL gi upset 07/06/18 07:45 07/06/18 18:00 Atropine Sulfate (Atropine) 0.5 mg Q5M PRN IV bpm less than 45 07/06/18 07:45 07/06/18 18:00 Ceftaroline Fosamil 400 mg/ Sodium Chloride 55 ml @ 55 mls/hr Q12HR IV 07/05/18 21:00 07/10/18 08:59 07/06/18 08:43 Clonidine HCl (Catapres Tab) 0.1 mg Q8H PRN NG SBP>160mmHg 07/05/18 16:30 07/25/18 16:29 Daptomycin 400 mg/ Sodium Chloride 55 ml @ 100 mls/hr Q24H IV 07/05/18 18:00 07/07/18 17:59 07/05/18 18:30 Dextrose (Dextrose 50%) 25 ml Q30M PRN IV Hypoglycemia 07/05/18 16:45 07/24/18 13:30 Dextrose (Dextrose 50%) 50 ml Q30M PRN IV hypoglycemia 07/05/18 16:45 07/24/18 13:44 07/05/18 19:28 Diphenhydramine HCl (Benadryl) 25 mg Q15M PRN IVP Itching 07/06/18 07:45 07/06/18 18:00 Fentanyl Citrate (Sublimaze 100 mcg/2 mL) 25 mcg Q10M PRN IV Moderate Pain (Pain Scale 4-6) 07/06/18 07:45 07/06/18 18:00 Hydralazine HCl (Apresoline) 5 mg Q30M PRN IV SBP>160 OR___/DBP>90 OR___ 07/06/18 07:45 07/06/18 18:00 Insulin Aspart (NovoLOG) EVERY 6 HOURS SUBQ 07/05/18 18:00 07/24/18 16:29 07/06/18 05:51 Lansoprazole (Prevacid) 30 mg DAILY NG 07/06/18 09:00 08/02/18 08:59 07/06/18 08:43 Midazolam HCl (Versed 2mg/2ml vial) 1 mg Q15M PRN IVP For Anxiety 07/06/18 07:45 07/06/18 18:00 Olanzapine (ZyPREXA) 2.5 mg BID NG 07/05/18 18:00 07/25/18 10:59 07/06/18 08:43 Ondansetron HCl (Zofran) 4 mg Q1H PRN IVP Nausea & Vomiting 07/06/18 07:45 07/06/18 18:00 Ondansetron HCl (Zofran) 4 mg Q6H PRN IVP Nausea & Vomiting 07/05/18 16:30 07/25/18 16:29 Roseann Bardales M.D. Jul 06, 2018 11:18
[2018-07-06 12:00] VITALS: BP 153/71
--- NOTE | 2018-07-06 12:39 | GI Progress Note ---
Assessment/Plan Problems: (1) Severe anemia ICD Codes: D64.9 - Anemia, unspecified SNOMED: 154320967 (2) Protein-calorie malnutrition, severe ICD Codes: E43 - Unspecified severe protein-calorie malnutrition SNOMED: 442234580 (3) Rectal bleed ICD Codes: K62.5 - Hemorrhage of anus and rectum SNOMED: 42776543 (4) Upper GI bleed ICD Codes: K92.2 - Gastrointestinal hemorrhage, unspecified SNOMED: 27472798 (5) Severe malnutrition ICD Codes: E43 - Unspecified severe protein-calorie malnutrition SNOMED: 11007479 (6) Weakness ICD Codes: R53.1 - Weakness SNOMED: 54099848 (7) Dysphasia ICD Codes: R47.02 - Dysphasia SNOMED: 72214513 (8) Dehydration ICD Codes: E86.0 - Dehydration SNOMED: 52367656 (9) Acute encephalopathy ICD Codes: G93.40 - Encephalopathy, unspecified SNOMED: 52507509, 591122559 (10) Sepsis ICD Codes: A41.9 - Sepsis, unspecified organism SNOMED: 13602547 (11) Diabetes mellitus, type II ICD Codes: E11.9 - Type 2 diabetes mellitus without complications SNOMED: 92086490 (12) Colitis ICD Codes: K52.9 - Noninfective gastroenteritis and colitis, unspecified SNOMED: 70869622 Status: unchanged Status Narrative Discussed with Dr. Wallace Assessment/Plan On airborne isolation EGD on hold per cardiology recs, pending NELDA to rule out endocarditis on ppi stool ob positive>> monitor H&H and transfuse as needed NGTF repeat labs The patient was seen and examined at bedside and all new and available data was reviewed in the patients chart. I agree with the above findings, impression and plan. (Patient seen earlier today. Signature stamp does not reflect patient encounter time.). - Oli Wallace MD Subjective Subjective Limited Objective Last 24 Hour Vital Signs Date Time Temp Pulse Resp B/P (MAP) Pulse Ox O2 Delivery O2 Flow Rate FiO2 07/06/18 09:19 81 20 Non-Rebreather 15.0 07/06/18 09:19 Non-Rebreather 15.0 100 07/06/18 09:19 93 Non-Rebreather 15.0 07/06/18 08:00 97.9 90 22 158/81 (106) 100 07/06/18 07:57 Non-Rebreather 15.0 07/06/18 07:44 75 07/06/18 04:00 Non-Rebreather 15.0 07/06/18 04:00 98.4 86 19 147/66 (93) 100 07/06/18 03:20 79 07/06/18 00:04 78 07/06/18 00:00 Non-Rebreather 15.0 07/06/18 00:00 97.7 80 20 129/63 (85) 99 07/05/18 20:00 Non-Rebreather 15.0 07/05/18 20:00 98.2 73 18 115/57 (76) 100 07/05/18 20:00 81 07/05/18 16:00 98.6 89 26 102/83 (89) 100 07/05/18 16:00 Non-Rebreather 15.0 07/05/18 16:00 74 Intake and Output 07/05/18 07/06/18 19:00 07:00 Intake Total 270 ml 715 ml Output Total 600 ml Balance -330 ml 715 ml IV Total 55 ml 55 ml Tube Feeding 165 ml 660 ml Other 50 ml Output Urine Total 600 ml # Voids 3 # Bowel Movements 2 2 Laboratory Tests Test 07/06/18 04:15 White Blood Count 7.4 K/UL (4.8-10.8) Red Blood Count 3.36 M/UL (4.20-5.40) L Hemoglobin 9.6 G/DL (12.0-16.0) L Hematocrit 30.8 % (37.0-47.0) L Mean Corpuscular Volume 91 FL (80-99) Mean Corpuscular Hemoglobin 28.6 PG (27.0-31.0) Mean Corpuscular Hemoglobin Concent 31.3 G/DL (32.0-36.0) L Red Cell Distribution Width 19.9 % (11.6-14.8) H Platelet Count 87 K/UL (150-450) L Mean Platelet Volume 10.1 FL (6.5-10.1) Neutrophils (%) (Auto) % (45.0-75.0) Lymphocytes (%) (Auto) % (20.0-45.0) Monocytes (%) (Auto) % (1.0-10.0) Eosinophils (%) (Auto) % (0.0-3.0) Basophils (%) (Auto) % (0.0-2.0) Sodium Level 144 MMOL/L (136-145) Potassium Level 4.8 MMOL/L (3.5-5.1) Chloride Level 116 MMOL/L (98-107) H Carbon Dioxide Level 19 MMOL/L (21-32) L Anion Gap 9 mmol/L (5-15) Blood Urea Nitrogen 24 mg/dL (7-18) H Creatinine 0.7 MG/DL (0.55-1.30) Estimat Glomerular Filtration Rate mL/min (>60) Glucose Level 205 MG/DL (74-106) H Calcium Level 7.8 MG/DL (8.5-10.1) L Height (Feet): 5 Height (Inches): 5.00 Weight (Pounds): 144 General Appearance: WD/WN, no apparent distress, alert Cardiovascular: normal rate Respiratory/Chest: normal breath sounds, no respiratory distress, other - Nonrebreather Abdominal Exam: normal bowel sounds, non tender, soft, GT site - Clean dry and intact Extremities: non-tender Joe Sagastume NP Jul 06, 2018 12:39
--- NOTE | 2018-07-06 12:56 | General Progress Note ---
Assessment/Plan Problem List: (1) Acute encephalopathy Assessment & Plan: metabolic ICD Codes: G93.40 - Encephalopathy, unspecified SNOMED: 13854237, 802212264 (2) Delirium ICD Codes: R41.0 - Disorientation, unspecified SNOMED: 8936646 (3) Alzheimer's dementia ICD Codes: G30.9 - Alzheimer's disease, unspecified; F02.80 - Dementia in other diseases classified elsewhere without behavioral disturbance SNOMED: 71166308 Assessment/Plan Zyprexa the pt lacks capacity soft restraints if needed Subjective Allergies: Coded Allergies: No Known Allergies (Unverified , 08/10/13) Subjective cont to be agitated waxing and waning stable Objective Last 24 Hour Vital Signs Date Time Temp Pulse Resp B/P (MAP) Pulse Ox O2 Delivery O2 Flow Rate FiO2 07/06/18 09:19 81 20 Non-Rebreather 15.0 07/06/18 09:19 Non-Rebreather 15.0 100 07/06/18 09:19 93 Non-Rebreather 15.0 07/06/18 08:00 97.9 90 22 158/81 (106) 100 07/06/18 07:57 Non-Rebreather 15.0 07/06/18 07:44 75 07/06/18 04:00 Non-Rebreather 15.0 07/06/18 04:00 98.4 86 19 147/66 (93) 100 07/06/18 03:20 79 07/06/18 00:04 78 07/06/18 00:00 Non-Rebreather 15.0 07/06/18 00:00 97.7 80 20 129/63 (85) 99 07/05/18 20:00 Non-Rebreather 15.0 07/05/18 20:00 98.2 73 18 115/57 (76) 100 07/05/18 20:00 81 07/05/18 16:00 98.6 89 26 102/83 (89) 100 07/05/18 16:00 Non-Rebreather 15.0 07/05/18 16:00 74 Intake and Output 07/05/18 07/06/18 19:00 07:00 Intake Total 270 ml 715 ml Output Total 600 ml Balance -330 ml 715 ml IV Total 55 ml 55 ml Tube Feeding 165 ml 660 ml Other 50 ml Output Urine Total 600 ml # Voids 3 # Bowel Movements 2 2 Laboratory Tests 07/06/18 04:15: White Blood Count 7.4, Red Blood Count 3.36L, Hemoglobin 9.6L, Hematocrit 30.8L , Mean Corpuscular Volume 91, Mean Corpuscular Hemoglobin 28.6, Mean Corpuscular Hemoglobin Concent 31.3L, Red Cell Distribution Width 19.9H, Platelet Count 87L, Mean Platelet Volume 10.1, Neutrophils (%) (Auto) , Lymphocytes (%) (Auto) , Monocytes (%) (Auto) , Eosinophils (%) (Auto) , Basophils (%) (Auto) , Sodium Level 144, Potassium Level 4.8, Chloride Level 116H, Carbon Dioxide Level 19L, Anion Gap 9, Blood Urea Nitrogen 24H, Creatinine 0.7, Estimat Glomerular Filtration Rate , Glucose Level 205H, Calcium Level 7.8L Height (Feet): 5 Height (Inches): 5.00 Weight (Pounds): 144 General Appearance: no apparent distress, lethargic, confused, agitated Lena Bob MD Jul 06, 2018 12:56
--- NOTE | 2018-07-06 13:00 | NUR ---
NURSE NOTES: Kimmy and Arterial duplex of the left arm negative for acute thrombus.
--- NOTE | 2018-07-06 13:27 | NUR ---
RADIOLOGY DEPT CHEST X-RAY DONE.-P.DYE
--- NOTE | 2018-07-06 14:10 | NUR ---
RD ASSESSMENT & RECOMMENDATIONS SEE CARE ACTIVITY FOR COMPLETE ASSESSMENT DAILY ESTIMATED NEEDS: Needs based on Wound, DM, wasting, sepsis / 55kg 30-35 kcals/kg 0611-8010 total kcals 1.25-2 g protein/kg 69-110 g total protein 25-30 mL/kg 8438-7491 total fluid mLs NUTRITION DIAGNOSIS: * Increased kcal/prot needs R/T wound healing as evidenced by pt w/ stage 3 sacral wound per MD * Swallowing difficulty R/T dysphagia, respiratory status as evidenced by per [employer] ETIOLOG[facility], pt at high risk for silent aspiration, rec for nonoral feedings, on NGT feeding. CURRENT TF:Glucerna 1.2 @ 55ml/hr x 24 hrs ENTERAL NUTRITION RECOMMENDATIONS: Glucerna 1.2 @ 60ml/hr x 24 hrs to provide 1440ml, 1728kcal, 86g prot, 1159ml free water - INCREASE GOAL TO 60ml/hr to better meet est needs - Flush per MD/ HOB over 30 degrees ADDITIONAL RECOMMENDATIONS: * RE-calibrate bedscale for accurate CBW (w/ added WC mattress) * Wound healing: Vit C 500mg BID, Tano 1pkt BID + ZnSO4 220mg dailyx 10 days * Lytes daily, replete as needed . . .
--- NOTE | 2018-07-06 14:42 | Diagnostic Imaging Report ---
Indication: Shortness of breath Technique: One view of the chest Comparison: 06/27/2018 Findings: Bilateral pacemakers are again demonstrated. There is increased, now large, pleural effusion on the right. Hazy right-sided parenchymal disease persists. There is a small amount of pleural fluid on the left. The left lung is otherwise clear. Nasogastric tube again demonstrated. The heart remains enlarged. Impression: Increased and now large right-sided pleural effusion, compared to prior study of 06/27/2018. Note that a large pleural effusion is evident on recent CT scan of 5 days earlier Otherwise stable findings as described
--- NOTE | 2018-07-06 15:00 | NUR ---
NURSE NOTES: Called family for consent for contrast for CT of the left arm. Left message. Awaiting call back.
--- NOTE | 2018-07-06 15:10 | Internal Med Progress Note ---
Subjective Date of Service: Jul 06, 2018 Physician Name MatthewsAquilino Attending Physician Carlos Alberto Berkowitz MD Current Medications Medications (Trade) Dose Ordered Sig/Yi Route PRN Reason Start Time Stop Time Status Last Admin Dose Admin Acetaminophen (Tylenol) 650 mg Q4H PRN NG Mild Pain/Temp > 100.5 07/05/18 16:30 07/29/18 16:29 07/06/18 10:54 Al Hydroxide/Mg Hydroxide (Mylanta) 15 ml Q1H PRN ORAL gi upset 07/06/18 07:45 07/06/18 18:00 Atropine Sulfate (Atropine) 0.5 mg Q5M PRN IV bpm less than 45 07/06/18 07:45 07/06/18 18:00 Ceftaroline Fosamil 400 mg/ Sodium Chloride 55 ml @ 55 mls/hr Q12HR IV 07/05/18 21:00 07/10/18 08:59 07/06/18 08:43 Clonidine HCl (Catapres Tab) 0.1 mg Q8H PRN NG SBP>160mmHg 07/05/18 16:30 07/25/18 16:29 Daptomycin 600 mg/ Sodium Chloride 55 ml @ 100 mls/hr Q24H IV 07/06/18 18:00 07/13/18 17:59 Dextrose (Dextrose 50%) 25 ml Q30M PRN IV Hypoglycemia 07/05/18 16:45 07/24/18 13:30 Dextrose (Dextrose 50%) 50 ml Q30M PRN IV hypoglycemia 07/05/18 16:45 07/24/18 13:44 07/05/18 19:28 Diphenhydramine HCl (Benadryl) 25 mg Q15M PRN IVP Itching 07/06/18 07:45 07/06/18 18:00 Fentanyl Citrate (Sublimaze 100 mcg/2 mL) 25 mcg Q10M PRN IV Moderate Pain (Pain Scale 4-6) 07/06/18 07:45 07/06/18 18:00 Hydralazine HCl (Apresoline) 5 mg Q30M PRN IV SBP>160 OR___/DBP>90 OR___ 07/06/18 07:45 07/06/18 18:00 Insulin Aspart (NovoLOG) EVERY 6 HOURS SUBQ 07/05/18 18:00 07/24/18 16:29 07/06/18 12:50 Lansoprazole (Prevacid) 30 mg DAILY NG 07/06/18 09:00 08/02/18 08:59 07/06/18 08:43 Midazolam HCl (Versed 2mg/2ml vial) 1 mg Q15M PRN IVP For Anxiety 07/06/18 07:45 07/06/18 18:00 Olanzapine (ZyPREXA) 2.5 mg BID NG 07/05/18 18:00 07/25/18 10:59 07/06/18 08:43 Ondansetron HCl (Zofran) 4 mg Q1H PRN IVP Nausea & Vomiting 07/06/18 07:45 07/06/18 18:00 Ondansetron HCl (Zofran) 4 mg Q6H PRN IVP Nausea & Vomiting 07/05/18 16:30 07/25/18 16:29 Allergies: Coded Allergies: No Known Allergies (Unverified , 08/10/13) ROS Limited/Unobtainable: Yes Subjective 82 YO F admitted with dehydration and hypoxia. Now sepsis. Cover for Int Med- Dr Berkowitz. Continues on non rebreather mask. MATTI Objective Last Vital Signs Date Time Temp Pulse Resp B/P (MAP) Pulse Ox O2 Delivery O2 Flow Rate FiO2 07/06/18 11:58 102 07/06/18 09:19 20 Non-Rebreather 15.0 07/06/18 09:19 100 07/06/18 09:19 93 07/06/18 08:00 97.9 158/81 (106) Laboratory Tests Test 07/06/18 04:15 White Blood Count 7.4 K/UL (4.8-10.8) Red Blood Count 3.36 M/UL (4.20-5.40) L Hemoglobin 9.6 G/DL (12.0-16.0) L Hematocrit 30.8 % (37.0-47.0) L Mean Corpuscular Volume 91 FL (80-99) Mean Corpuscular Hemoglobin 28.6 PG (27.0-31.0) Mean Corpuscular Hemoglobin Concent 31.3 G/DL (32.0-36.0) L Red Cell Distribution Width 19.9 % (11.6-14.8) H Platelet Count 87 K/UL (150-450) L Mean Platelet Volume 10.1 FL (6.5-10.1) Neutrophils (%) (Auto) % (45.0-75.0) Lymphocytes (%) (Auto) % (20.0-45.0) Monocytes (%) (Auto) % (1.0-10.0) Eosinophils (%) (Auto) % (0.0-3.0) Basophils (%) (Auto) % (0.0-2.0) Sodium Level 144 MMOL/L (136-145) Potassium Level 4.8 MMOL/L (3.5-5.1) Chloride Level 116 MMOL/L (98-107) H Carbon Dioxide Level 19 MMOL/L (21-32) L Anion Gap 9 mmol/L (5-15) Blood Urea Nitrogen 24 mg/dL (7-18) H Creatinine 0.7 MG/DL (0.55-1.30) Estimat Glomerular Filtration Rate mL/min (>60) Glucose Level 205 MG/DL (74-106) H Calcium Level 7.8 MG/DL (8.5-10.1) L Microbiology Date/Time Source Procedure Growth Status 07/05/18 07:30 Blood Blood Culture - Preliminary Resulted 07/05/18 07:20 Blood Blood Culture - Preliminary Resulted 07/05/18 03:25 Sputum AFB Specimen Processing Tissue - Final Resulted 07/05/18 03:25 Sputum Acid Fast Bacilli Smear - Final Resulted 07/05/18 03:25 Sputum Acid Fast Bacilli Culture Pending Resulted 07/05/18 03:25 Sputum Expectorated Gram Stain - Final Resulted 07/05/18 03:25 Sputum Culture - Preliminary Gram Negative Bacillus 1 Gram Negative Bacillus 2 Resulted 07/04/18 06:52 Sputum AFB Specimen Processing Tissue - Final Resulted 07/04/18 06:52 Sputum Acid Fast Bacilli Smear - Final Resulted 07/04/18 06:52 Sputum Acid Fast Bacilli Culture Pending Resulted Intake and Output 07/05/18 07/06/18 19:00 07:00 Intake Total 270 ml 715 ml Output Total 600 ml Balance -330 ml 715 ml IV Total 55 ml 55 ml Tube Feeding 165 ml 660 ml Other 50 ml Output Urine Total 600 ml # Voids 3 # Bowel Movements 2 2 Objective Objective General: No acute distress, awake and less responsive, Sleepy, cachectic. HEENT: NCAT, sclera anicteric, PERRL, NG tube. Neck: Supple, no significant jugular venous distention, Lungs: Non-rebreather mask; Poor inspiratory effort, decreased air in the bases , Bilateral Wheeze and Rales. Heart: Regular rate and rhythm, normal S1/S2, no murmur. Abdomen: soft, nontender, nondistended. Normoactive bowel sounds. / Rectal: Refused and deferred. Extremities: No Cyanosis , No clubbing, Left UE edema. Lateral lower extremity / feet dressing intact. Neuro: A&O x 1, Able to move all extremities Skin: warm, no rashes or lesions, ecchymosis in bilateral upper extremity noted. Assessment/Plan Assessment/Plan Assessment/Plan Assessment/Plan 1. Sepsis / METHACILLIN RESISTANT STAPHYLOCOCCUS AUREUS bacteremia, lactic acidosis. 2. Failure to thrive with severe protein calorie malnutrition. 3. Coronary artery disease. 4. Diabetes, type 2. 5. Hypertension. 6. Sick sinus syndrome. 7. Hypercholesterolemia. 8. Aortic stenosis. 9. Pulmonary hypertension. 10. Alzheimer dementia. 11. Acute tubular necrosis/acute kidney injury most likely secondary to dehydration and sepsis. 12. Sacral decubitus ulcer, stage III 13. Severe dehydration 14. Hypokalemia. 15. Abnormal liver function test 16. Anemia/thrombocytopenia 17. Bilateral pneumonia ?septic emboli? TREATMENT: 1. Patient on broad spectrum antibiotics with vancomycin and Zosyn IV. Will require transesophageal echocardiogram to R/O endocarditis-see ID note 2. Coronary artery disease. The patient is status post coronary artery bypass graft in 2017. 3. Diabetes, type 2. The patient has been started on NovoLog sliding scale. 4. Hypertension. The patient is to continue on atenolol and losartan as above. 5. Sick sinus syndrome. The patient is status post pacemaker implantation. 6. Hypercholesterolemia. Continue simvastatin as above. 7. Aortic stenosis. 8. Pulmonary hypertension. 9. Alzheimer dementia. 10. Anemia/thrombocytopenia-S/P 1 unit PRBC on 06/28/18. Heme/Onc consult. Hold heparin 11. Septic pulmonary emboli-await NELDA on Thursday07/06/18-see cardiology note- needs NG removed for NELDA-Discussed with Dr Oliver Restart tube feeding at rate of 45 cc/hr. CODE STATUS is full code as per ARLET, DVT prophylaxis: D/C Heparin subcu due to thrombocytopenia Aquilino Matthews MD Jul 06, 2018 15:10
[2018-07-06 16:00] VITALS: BP 113/55
[2018-07-06] MEDS ORDERED: DAPTOmycin 500 MG in NS 55 ML IV SCH (18:00)
--- NOTE | 2018-07-06 18:21 | Surgery Progress Note ---
Surgery Progress Note Subjective Additional Comments Left upper extremity ecchymosis. small IV site ulceration at left hand dorsal aspect. edema. no abscess. Objective Last 24 Hour Vital Signs Date Time Temp Pulse Resp B/P (MAP) Pulse Ox O2 Delivery O2 Flow Rate FiO2 07/06/18 16:00 98.1 68 22 113/55 (74) 99 07/06/18 16:00 Non-Rebreather 15.0 07/06/18 16:00 83 07/06/18 12:00 97.9 107 24 153/71 (98) 99 07/06/18 12:00 Non-Rebreather 15.0 07/06/18 11:58 102 07/06/18 09:19 81 20 Non-Rebreather 15.0 07/06/18 09:19 Non-Rebreather 15.0 100 07/06/18 09:19 93 Non-Rebreather 15.0 07/06/18 08:00 97.9 90 22 158/81 (106) 100 07/06/18 07:57 Non-Rebreather 15.0 07/06/18 07:44 75 07/06/18 04:00 Non-Rebreather 15.0 07/06/18 04:00 98.4 86 19 147/66 (93) 100 07/06/18 03:20 79 07/06/18 00:04 78 07/06/18 00:00 Non-Rebreather 15.0 07/06/18 00:00 97.7 80 20 129/63 (85) 99 07/05/18 20:00 Non-Rebreather 15.0 07/05/18 20:00 98.2 73 18 115/57 (76) 100 07/05/18 20:00 81 I&O Intake and Output 07/05/18 07/06/18 19:00 07:00 Intake Total 270 ml 715 ml Output Total 600 ml Balance -330 ml 715 ml IV Total 55 ml 55 ml Tube Feeding 165 ml 660 ml Other 50 ml Output Urine Total 600 ml # Voids 3 # Bowel Movements 2 2 Dressing: other Wound: other Drains: other Cardiovascular: RSR Respiratory: clear Abdomen: soft, non-tender, present bowel sounds Extremities: other Laboratory Tests Test 07/06/18 04:15 White Blood Count 7.4 K/UL (4.8-10.8) Red Blood Count 3.36 M/UL (4.20-5.40) L Hemoglobin 9.6 G/DL (12.0-16.0) L Hematocrit 30.8 % (37.0-47.0) L Mean Corpuscular Volume 91 FL (80-99) Mean Corpuscular Hemoglobin 28.6 PG (27.0-31.0) Mean Corpuscular Hemoglobin Concent 31.3 G/DL (32.0-36.0) L Red Cell Distribution Width 19.9 % (11.6-14.8) H Platelet Count 87 K/UL (150-450) L Mean Platelet Volume 10.1 FL (6.5-10.1) Neutrophils (%) (Auto) % (45.0-75.0) Lymphocytes (%) (Auto) % (20.0-45.0) Monocytes (%) (Auto) % (1.0-10.0) Eosinophils (%) (Auto) % (0.0-3.0) Basophils (%) (Auto) % (0.0-2.0) Sodium Level 144 MMOL/L (136-145) Potassium Level 4.8 MMOL/L (3.5-5.1) Chloride Level 116 MMOL/L (98-107) H Carbon Dioxide Level 19 MMOL/L (21-32) L Anion Gap 9 mmol/L (5-15) Blood Urea Nitrogen 24 mg/dL (7-18) H Creatinine 0.7 MG/DL (0.55-1.30) Estimat Glomerular Filtration Rate mL/min (>60) Glucose Level 205 MG/DL (74-106) H Calcium Level 7.8 MG/DL (8.5-10.1) L Plan Problems: (1) Sepsis Assessment & Plan: Leukocytosis resolved LFT's elevated w/ t bili / d bili - improved AM labs ordered hydrate US Impression: Limited exam, as described. Note inability to visualize the spleen Negative for gallstones or dilated bile ducts Questionable bilateral renal parapelvic cysts Small to moderate right pleural effusion no acute surgical intervention planned. NELDA for septic emboli consider removing pacemaker as harboring sepsis source tube feeds as tolerated will follow with recs. (2) Sacral decubitus ulcer, stage III Assessment & Plan: DTPI sacrum.Maroon- indurated discoloration with opening at sacral coccygeal area(L)3.8cm x (W)1.4cm with entire wound measuring (L)10cmx(W) 12cm.Small amt malodorous brown exudate. Stable dry eschar R heel with dry peeling skin periwound (L)2cm x (W)3.5cm. Periwound is also red and boggy. Small dry eschar noted to lateral R 5th metatarsal (L)1.4cm x (W)0.3cm. L heel is boggy but colour is dusky . Resolving skin tear lateral R tibia. Wound bed is clean and dry. Tx. Plan: Cleanse Sacral wound with Saline.Apply Therahoney to opening at sacrococcygeal area.Cavilon skin barrier to DTPI. Cover with Optifoam drsg .Change Daily and prn. Apply Betadine to R heel and Lateral R 5th metatarsal.Cover with Abd pad .Wrap with kerlix daily and prn. Apply Cavilon Skin Barrier to L heel.Cover with Optifoam drsg .Change every 7 days and prn. Reposition at least every 2hours or as tolerated. Off-load heels with pillow. (3) Rectal bleed (4) Protein-calorie malnutrition, severe (5) Dehydration (6) IV infiltration Assessment & Plan: left hand IV infiltration prior and now with edema/ irritation noted + ecchymosis on hand and arm keep hand and arm elevated medication reaction and will need to be monitored for worsening poor tissue / protoplasm Sher Younger Jul 06, 2018 18:21
--- NOTE | 2018-07-06 18:38 | Cardiology Progress Note ---
Assessment/Plan Assessment/Plan remains very ill, confused and agitated her left arm erythema of concern, possible cellulitis, rule out DVT, ordered arterial and venous duplex stat, D/W Dr Matthews Subjective Subjective The patient is confused and screaming, but occasionally is responding to questions Objective Last 24 Hour Vital Signs Date Time Temp Pulse Resp B/P (MAP) Pulse Ox O2 Delivery O2 Flow Rate FiO2 07/06/18 16:00 98.1 68 22 113/55 (74) 99 07/06/18 16:00 Non-Rebreather 15.0 07/06/18 16:00 83 07/06/18 12:00 97.9 107 24 153/71 (98) 99 07/06/18 12:00 Non-Rebreather 15.0 07/06/18 11:58 102 07/06/18 09:19 81 20 Non-Rebreather 15.0 07/06/18 09:19 Non-Rebreather 15.0 100 07/06/18 09:19 93 Non-Rebreather 15.0 07/06/18 08:00 97.9 90 22 158/81 (106) 100 07/06/18 07:57 Non-Rebreather 15.0 07/06/18 07:44 75 07/06/18 04:00 Non-Rebreather 15.0 07/06/18 04:00 98.4 86 19 147/66 (93) 100 07/06/18 03:20 79 07/06/18 00:04 78 07/06/18 00:00 Non-Rebreather 15.0 07/06/18 00:00 97.7 80 20 129/63 (85) 99 07/05/18 20:00 Non-Rebreather 15.0 07/05/18 20:00 98.2 73 18 115/57 (76) 100 07/05/18 20:00 81 General Appearance: moderate distress EENT: PERRL/EOMI, other - NG tube Neck: no JVD Rhythm: ST Cardiovascular: regular rhythm, systolic murmur Respiratory/Chest: accessory muscle use, crackles/rales Abdomen: non tender Extremities: other - left arm is dark red, which is new development from yesterday Pulses: decreased: radial (L) Neurologic: disoriented Intake and Output 07/05/18 07/06/18 19:00 07:00 Intake Total 270 ml 715 ml Output Total 600 ml Balance -330 ml 715 ml IV Total 55 ml 55 ml Tube Feeding 165 ml 660 ml Other 50 ml Output Urine Total 600 ml # Voids 3 # Bowel Movements 2 2 Laboratory Tests Test 07/06/18 04:15 White Blood Count 7.4 K/UL (4.8-10.8) Red Blood Count 3.36 M/UL (4.20-5.40) L Hemoglobin 9.6 G/DL (12.0-16.0) L Hematocrit 30.8 % (37.0-47.0) L Mean Corpuscular Volume 91 FL (80-99) Mean Corpuscular Hemoglobin 28.6 PG (27.0-31.0) Mean Corpuscular Hemoglobin Concent 31.3 G/DL (32.0-36.0) L Red Cell Distribution Width 19.9 % (11.6-14.8) H Platelet Count 87 K/UL (150-450) L Mean Platelet Volume 10.1 FL (6.5-10.1) Neutrophils (%) (Auto) % (45.0-75.0) Lymphocytes (%) (Auto) % (20.0-45.0) Monocytes (%) (Auto) % (1.0-10.0) Eosinophils (%) (Auto) % (0.0-3.0) Basophils (%) (Auto) % (0.0-2.0) Sodium Level 144 MMOL/L (136-145) Potassium Level 4.8 MMOL/L (3.5-5.1) Chloride Level 116 MMOL/L (98-107) H Carbon Dioxide Level 19 MMOL/L (21-32) L Anion Gap 9 mmol/L (5-15) Blood Urea Nitrogen 24 mg/dL (7-18) H Creatinine 0.7 MG/DL (0.55-1.30) Estimat Glomerular Filtration Rate mL/min (>60) Glucose Level 205 MG/DL (74-106) H Calcium Level 7.8 MG/DL (8.5-10.1) L Microbiology Date/Time Source Procedure Growth Status 07/05/18 07:30 Blood Blood Culture - Preliminary Resulted 07/05/18 07:20 Blood Blood Culture - Preliminary Resulted 07/05/18 03:25 Sputum AFB Specimen Processing Tissue - Final Resulted 07/05/18 03:25 Sputum Acid Fast Bacilli Smear - Final Resulted 07/05/18 03:25 Sputum Acid Fast Bacilli Culture Pending Resulted 07/05/18 03:25 Sputum Expectorated Gram Stain - Final Resulted 07/05/18 03:25 Sputum Culture - Preliminary Gram Negative Bacillus 1 Gram Negative Bacillus 2 Resulted 07/04/18 06:52 Sputum AFB Specimen Processing Tissue - Final Resulted 07/04/18 06:52 Sputum Acid Fast Bacilli Smear - Final Resulted 07/04/18 06:52 Sputum Acid Fast Bacilli Culture Pending Resulted Karol Oliver MD Jul 06, 2018 18:38
[2018-07-06] MEDS: DAPTOmycin 600 MG in NS 55 ML IV SCH (18:46)
--- NOTE | 2018-07-06 19:30 | NUR ---
HAND-OFF: Report given to SOILA Lanza. Patient VS stable at this time with no sign of acute distress. patient has an order for CT of the left arm. Awaiting call back from daughter with consent for contrast at this time.
--- NOTE | 2018-07-06 19:30 | NUR ---
NURSE NOTES: Report received from SOILA Gonzalez. Pt A/Ox1. [place] speaking. pets salesperson shows SR. Pt on a non-rebreather mask 15 litera @100%. Tolerating settings well. Pt has an NGT in place located in the left nare with glucerna 1.2 running at 55 ml/hr. Purewick present and working well. Accuchecks to be done q6h. Multiple wounds present. Pt has swelling and redness located on CHRISTIAN, painful to touch. Pt has a J CARLOS midline present asymptomatic and patent. Pt scheduled to have CT w/contrast on arm but no consent has been signed yet. NELDA and EGD also scheduled but pt unable to tolerate as pt on non-rebreather mask. Will continue to monitor and with patients plan of care.
[2018-07-06 20:00] VITALS: BP 134/60
--- NOTE | 2018-07-06 21:25 | NUR ---
Called daughter and LMOM regarding consent for CT w/contrast of LUE. Awaiting return call.
--- NOTE | 2018-07-06 21:33 | General Progress Note ---
Assessment/Plan Assessment/Plan ASSESSMENT/RECS: 1. Pancytopenia with thrombocytopenia that is severe is most likely related to Sepsis, lactic acidosis. In addition has received heparin. US abdomen ordered and shows no spleen and no cirrhosis --> heparin discontinued --> HIT ab test reviewed --> venous duplex negative --> smear peripheral has been reviewed and negative for abnml cells --> tumor markers as needed/prn --> hold off on transfusion unless plt <20k --> hold off on steriods --> plt trend: 34--> 50k 2. Failure to thrive with severe protein calorie malnutrition. ->> calorie counts daily --> consider mirtazapine as needed per pcp --> getting ngtfs 3. Anemia of chronic disease --> panel has been reviewed --> transfuse if hgb <7 4. Leukocytosis --> on abx as per id for infection 5. Hypertension. 6. Sick sinus syndrome. 7. Hypercholesterolemia. 8. Aortic stenosis. 9. Pulmonary hypertension. 10. Alzheimer dementia. 11. Acute tubular necrosis/acute kidney injury most likely secondary to dehydration and sepsis. Greatly appreciate consultation! Subjective Constitutional: Denies: no symptoms, chills, diaphoresis, fever, malaise, weakness, other HEENT: Denies: no symptoms, eye pain, blurred vision, tearing, double vision, ear pain, ear discharge, nose pain, nose congestion, throat pain, throat swelling, mouth pain, mouth swelling, other Cardiovascular: Denies: no symptoms, chest pain, edema, irregular heart rate, lightheadedness, palpitations, syncope, other Respiratory: Denies: no symptoms, cough, orthopnea, shortness of breath, SOB with excertion, SOB at rest, sputum, stridor, wheezing, other Gastrointestinal/Abdominal: Denies: no symptoms, abdomen distended, abdominal pain, black stools, tarry stools, blood in stool, constipated, diarrhea, difficulty swallowing, nausea, poor appetite, poor fluid intake, rectal bleeding , vomiting, other Genitourinary: Denies: no symptoms, burning, discharge, frequency, flank pain, hematuria, incontinence, pain, urgency, other Neurologic/Psychiatric: Denies: no symptoms, anxiety, depressed, emotional problems, headache, numbness, paresthesia, pre-existing deficit, seizure, tingling, tremors, weakness, other Endocrine: Denies: no symptoms, excessive sweating, flushing, intolerance to cold, intolerance to heat, increased hunger, increased thirst, increased urine, unexplained weight gain, unexplained weight loss, other Hematologic/Lymphatic: Denies: no symptoms, anemia, easy bleeding, easy bruising, other Allergies: Coded Allergies: No Known Allergies (Unverified , 08/10/13) Subjective 07/01:seen by bedside, Possible EGD tomorrow to evaluate upper GI bleed, today's EGD was canceled by anesthesia, plt remains low at 34, hgb trending up . 07/02: Scheduled for EGD today,CT w/ cavitary lung lessions; placed on isolation , remains bacteremic, wbc 12. 07/04: continues to be somewhat sob, imaging reviewed, labs are better this am, plts uptrending, getting ngtfs 07/05: awake, comfortable, no events 07/06: Pt is confused, screaming, Left upper extremity ecchymosis, edema. no abscess,ID following, plt trending up. Objective Last 24 Hour Vital Signs Date Time Temp Pulse Resp B/P (MAP) Pulse Ox O2 Delivery O2 Flow Rate FiO2 07/06/18 20:00 70 07/06/18 20:00 Non-Rebreather 15.0 07/06/18 16:00 98.1 68 22 113/55 (74) 99 07/06/18 16:00 Non-Rebreather 15.0 07/06/18 16:00 83 07/06/18 12:00 97.9 107 24 153/71 (98) 99 07/06/18 12:00 Non-Rebreather 15.0 07/06/18 11:58 102 07/06/18 09:19 81 20 Non-Rebreather 15.0 07/06/18 09:19 Non-Rebreather 15.0 100 07/06/18 09:19 93 Non-Rebreather 15.0 07/06/18 08:00 97.9 90 22 158/81 (106) 100 07/06/18 07:57 Non-Rebreather 15.0 07/06/18 07:44 75 07/06/18 04:00 Non-Rebreather 15.0 07/06/18 04:00 98.4 86 19 147/66 (93) 100 07/06/18 03:20 79 07/06/18 00:04 78 07/06/18 00:00 Non-Rebreather 15.0 07/06/18 00:00 97.7 80 20 129/63 (85) 99 Intake and Output 07/05/18 07/06/18 18:59 06:59 Intake Total 160 ml 770 ml Output Total 600 ml Balance -440 ml 770 ml IV Total 110 ml Tube Feeding 110 ml 660 ml Other 50 ml Output Urine Total 600 ml # Voids 3 # Bowel Movements 2 2 Laboratory Tests 07/06/18 04:15: White Blood Count 7.4, Red Blood Count 3.36L, Hemoglobin 9.6L, Hematocrit 30.8L , Mean Corpuscular Volume 91, Mean Corpuscular Hemoglobin 28.6, Mean Corpuscular Hemoglobin Concent 31.3L, Red Cell Distribution Width 19.9H, Platelet Count 87L, Mean Platelet Volume 10.1, Neutrophils (%) (Auto) , Lymphocytes (%) (Auto) , Monocytes (%) (Auto) , Eosinophils (%) (Auto) , Basophils (%) (Auto) , Sodium Level 144, Potassium Level 4.8, Chloride Level 116H, Carbon Dioxide Level 19L, Anion Gap 9, Blood Urea Nitrogen 24H, Creatinine 0.7, Estimat Glomerular Filtration Rate , Glucose Level 205H, Calcium Level 7.8L Height (Feet): 5 Height (Inches): 5.00 Weight (Pounds): 144 Objective GENERAL: Awake responsive to deep stimuli with opening of her eyes, in no apparent distress. HEENT: Eyes, pupils equal responsive to light and accommodation. ++ ngtf CHEST: Poor inspiratory effort, decreased air in the bases no wheezes or rhonchi was appreciated CARDIOVASCULAR: Regular rhythm and rate. S1 and S2 are normal without murmurs or gallops. ABDOMEN: Soft, nontender, and nondistended. Positive bowel sounds. No rebounding or guarding noted. EXTREMITIES: Negative for clubbing, cyanosis, or edema, muscle atrophy in bilateral lower extremity RECTAL/GENITAL: Not performed. NEUROLOGIC:somewhat responsive, better than before Kadeem Bennett MD Jul 06, 2018 21:33
[2018-07-07] VITALS: BP 147/62
[2018-07-07 04:00] VITALS: BP 152/55
[2018-07-07] MEDS: NovoLOG Insulin Flexpen SUBQ SCH ×3 (05:48→18:26)
[2018-07-07 06:20] LABS: HEMATOCRIT 27.1 % (37.0-47.0); HEMOGLOBIN 8.6 G/DL (12.0-16.0); MEAN CORPUSCULAR VOLUME 91 FL (80-99); PLATELET COUNT 78 K/UL (150-450); RED BLOOD COUNT 2.98 M/UL (4.20-5.40); RED CELL DISTRIBUTION WIDTH 19.9 % (11.6-14.8); WHITE BLOOD COUNT 6.9 K/UL (4.8-10.8)
[2018-07-07 07:01] LABS: ALANINE AMINOTRANSFERASE 23 U/L (12-78); ALBUMIN 1.1 G/DL (3.4-5.0); ALBUMIN/GLOBULIN RATIO 0.3 (1.0-2.7); ALKALINE PHOSPHATASE 116 U/L (46-116); ANION GAP 8 mmol/L (5-15); ASPARTATE AMINO TRANSFERASE 26 U/L (15-37); BILIRUBIN,TOTAL 0.7 MG/DL (0.2-1.0); BLOOD UREA NITROGEN 27 mg/dL (7-18); CARBON DIOXIDE 22 MMOL/L (21-32); CHLORIDE 117 MMOL/L (98-107); CREATININE 0.7 MG/DL (0.55-1.30); PHOSPHORUS 2.6 MG/DL (2.5-4.9); POTASSIUM 4.9 MMOL/L (3.5-5.1); SODIUM 147 MMOL/L (136-145)
--- NOTE | 2018-07-07 07:10 | NUR ---
NURSE NOTES: Received patient from SOILA Lanza. Patient VS stable at this time with no sign of acute distress. Patient has been sinus rhythm on the artificial limb fitter throughout the night. Patient is sleeping at this time. Patient is not yelling as she was yesterday. Patient is on 100% nonrebreather mask at this time. Patient saturation stable at 100% at this time. Will follow up with RT and MD to see if we can ween her off of nonrebreather today. Patient has an NGT in the left nares at this time that is patent, in place, and asymptomatic. Patient is running G tube feeding Glucerna 1.2 at 55mL/hr at this time. Patient has a purewick at this time. Patient is on pressure release mattress. Patient has sacral stage 3 pressure ulcer at this time. Patient has swollen and red left arm. Venous and arterial duplex were negative. Dr Younger noted that the reaction may be a result of IV infiltration. Dr Bardales ordered a CT with contrast. The daughter of the patient has been called twice with no call back at this time. Consent still needs to be obtained before the CT can be performed. Patient has a right upper arm midline at this time that is patent and saline locked at this time. Patient has an order for NELDA and EGD. Neither can be performed today due to the patient remaining on 100% nonrebreather. Patient bed in low position with bed alarm on can call light in reach at this time.
--- NOTE | 2018-07-07 07:43 | NUR ---
NURSE NOTES: Left message for Dr Mancera regarding Magnesium of 1.7 this morning. Awaiting call back at this time.
--- NOTE | 2018-07-07 07:49 | NUR ---
NURSE NOTES: Patient is now positive for ESBL of the sputum. Will notify Dr Bardales when she comes in to see the patient. Patient has already been positive for ESBL during this admission.
[2018-07-07 08:00] VITALS: BP 139/68
--- NOTE | 2018-07-07 08:03 | NUR ---
NURSE NOTES: Obtained consent from daughter for contrast for CT scan of the left arm.
[2018-07-07] MEDS: OLANZapine 2.5mg tab NG SCH ×2 (09:07→18:22)
--- NOTE | 2018-07-07 10:06 | NUR ---
CT LEFT UPPER EXT WITH CONTRAST COMPLETED. TJB/EP/AC
[2018-07-07] MEDS: Ceftaroline 400 MG in NS 55 ML IV SCH ×2 (10:10→22:36)
--- NOTE | 2018-07-07 11:07 | Pulmonology Progress Note ---
Assessment/Plan Problems: (1) Sepsis (2) Thrombocytopenia (3) ATN (acute tubular necrosis) (4) Pulmonary hypertension (5) Sacral decubitus ulcer, stage III (6) Alzheimer's dementia (7) Protein-calorie malnutrition, severe (8) HTN (hypertension) (9) Pacemaker (10) CAD (coronary artery disease) Assessment/Plan on NRM /u PLT, better today up to78 failed swallow study Morphine prn d/w wound care nurse, mckeon cultures, still positive BC are still positive from 07/05 and 06/05 check electrolytes sliding scale check electrolytes daily broad spectrum abx dvt prophylaxis insulin coverage. social service consult might need removal of pacemaker leads, d/W dr Bardales, Cardiology wants to wait until pt hemodynamically better to do an NELDA to find out if the they are infected. Subjective ROS Limited/Unobtainable: Yes Interval Events: on 100% NRM Constitutional: Reports: no symptoms Allergies: Coded Allergies: No Known Allergies (Unverified , 08/10/13) Objective Last 24 Hour Vital Signs Date Time Temp Pulse Resp B/P (MAP) Pulse Ox O2 Delivery O2 Flow Rate FiO2 07/07/18 08:00 98.1 75 14 139/68 (91) 100 07/07/18 07:47 64 07/07/18 04:00 98.0 66 16 152/55 (87) 100 07/07/18 04:00 Non-Rebreather 15.0 07/07/18 04:00 72 07/07/18 00:00 74 07/07/18 00:00 Non-Rebreather 15.0 07/07/18 00:00 98.4 67 13 147/62 (90) 100 07/06/18 20:00 70 07/06/18 20:00 Non-Rebreather 15.0 07/06/18 20:00 97.7 85 22 134/60 (84) 100 07/06/18 16:00 98.1 68 22 113/55 (74) 99 07/06/18 16:00 Non-Rebreather 15.0 07/06/18 16:00 83 07/06/18 12:00 97.9 107 24 153/71 (98) 99 07/06/18 12:00 Non-Rebreather 15.0 07/06/18 11:58 102 Intake and Output 07/06/18 07/07/18 19:00 07:00 Intake Total 710 ml 790 ml Output Total 80 ml Balance 710 ml 710 ml Intake Free Water 75 ml IV Total 110 ml Tube Feeding 660 ml 605 ml Other 50 ml Output Urine Total 80 ml # Voids 2 2 # Bowel Movements 2 2 Objective General Appearance: cachectic HEENT: normocephalic, somnolent Respiratory/Chest: chest wall non-tender,loud rhonchi Cardiovascular: normal peripheral pulses, normal rate Abdomen: normal bowel sounds, soft, non tender Extremities: no cyanosis Skin: no rash Microbiology Date/Time Source Procedure Growth Status 07/06/18 04:20 Blood Blood Culture - Preliminary Resulted 07/06/18 04:00 Blood Blood Culture - Preliminary Resulted 07/05/18 07:30 Blood Blood Culture - Preliminary Staphylococcus Aureus Resulted 07/05/18 07:20 Blood Blood Culture - Preliminary Staphylococcus Aureus Resulted 07/05/18 03:25 Sputum AFB Specimen Processing Tissue - Final Resulted 07/05/18 03:25 Sputum Acid Fast Bacilli Smear - Final Resulted 07/05/18 03:25 Sputum Acid Fast Bacilli Culture Pending Resulted 07/05/18 03:25 Sputum Expectorated Gram Stain - Final Resulted 07/05/18 03:25 Sputum Culture - Preliminary Klebsiella Pneumoniae Esbl Escherichia Coli Resulted Laboratory Tests 07/07/18 03:45: White Blood Count 6.9, Red Blood Count 2.98L, Hemoglobin 8.6L, Hematocrit 27.1L , Mean Corpuscular Volume 91, Mean Corpuscular Hemoglobin 28.9, Mean Corpuscular Hemoglobin Concent 31.8L, Red Cell Distribution Width 19.9H, Platelet Count 78L, Mean Platelet Volume 9.2, Neutrophils (%) (Auto) , Lymphocytes (%) (Auto) , Monocytes (%) (Auto) , Eosinophils (%) (Auto) , Basophils (%) (Auto) , Neutrophils % (Manual) [Pending], Lymphocytes % (Manual) [Pending], Platelet Estimate [Pending], Platelet Morphology [Pending], Erythrocyte Sedimentation Rate 79H, Sodium Level 147H, Potassium Level 4.9, Chloride Level 117H, Carbon Dioxide Level 22, Anion Gap 8, Blood Urea Nitrogen 27H, Creatinine 0.7, Estimat Glomerular Filtration Rate , Glucose Level 135H, Calcium Level 8.0L, Phosphorus Level 2.6, Magnesium Level 1.7L, Total Bilirubin 0.7, Aspartate Amino Transf (AST/SGOT) 26, Alanine Aminotransferase (ALT/SGPT) 23, Alkaline Phosphatase 116, C-Reactive Protein, Quantitative 22.3H, Total Protein 5.2L, Albumin 1.1L, Globulin 4.1, Albumin/Globulin Ratio 0.3L Current Medications Medications (Trade) Dose Ordered Sig/Yi Route PRN Reason Start Time Stop Time Status Last Admin Dose Admin Acetaminophen (Tylenol) 650 mg Q4H PRN NG Mild Pain/Temp > 100.5 07/05/18 16:30 07/29/18 16:29 07/06/18 18:46 Ceftaroline Fosamil 400 mg/ Sodium Chloride 55 ml @ 55 mls/hr Q12HR IV 07/05/18 21:00 07/10/18 08:59 07/07/18 10:10 Clonidine HCl (Catapres Tab) 0.1 mg Q8H PRN NG SBP>160mmHg 07/05/18 16:30 07/25/18 16:29 Daptomycin 600 mg/ Sodium Chloride 55 ml @ 100 mls/hr Q24H IV 07/06/18 18:00 07/13/18 17:59 07/06/18 18:46 Dextrose (Dextrose 50%) 25 ml Q30M PRN IV Hypoglycemia 07/05/18 16:45 07/24/18 13:30 Dextrose (Dextrose 50%) 50 ml Q30M PRN IV hypoglycemia 07/05/18 16:45 07/24/18 13:44 07/05/18 19:28 Insulin Aspart (NovoLOG) EVERY 6 HOURS SUBQ 07/05/18 18:00 07/24/18 16:29 07/07/18 05:48 Lansoprazole (Prevacid) 30 mg DAILY NG 07/06/18 09:00 08/02/18 08:59 07/07/18 09:07 Olanzapine (ZyPREXA) 2.5 mg BID NG 07/05/18 18:00 07/25/18 10:59 07/07/18 09:07 Ondansetron HCl (Zofran) 4 mg Q6H PRN IVP Nausea & Vomiting 07/05/18 16:30 07/25/18 16:29 Rod Mancera MD Jul 07, 2018 11:07
--- NOTE | 2018-07-07 11:33 | Diagnostic Imaging Report ---
Indication: Left arm diffuse redness and swelling Technique: IV administration nonionic contrast. Spiral acquisitions obtained through the left upper arm and forearm Multiplanar reconstructions were generated. Total dose length product 356 mGycm. CTDIvol(s) 6 mGy. Radiation dose was minimized using automated exposure control Comparison: none Findings: The subcutaneous fat and deep fat are diffusely edematous. No discrete rim-enhancing collection is demonstrated. The upper arm an forearm musculature is slightly heterogeneous, likely edematous. The large arteries are normal in appearance. Veins are unopacified, presumably due to early scanning prior to venous phase. The bones are unremarkable. No definite osteolytic lesions or unusual periosteal reaction. A left chest pacemaker is incidentally noted. Impression: Diffuse edema of the subcutaneous and deep fat and likely upper arm and forearm musculature. Given stated clinical history, possibly secondary to cellulitis and myositis, but could also be hemodynamic in origin. No discrete rim-enhancing collection to suggest abscess No CT evidence of acute osteomyelitis. Note, however, somewhat limited sensitivity of CT for such. Consider bone scan for further evaluation if there is high clinical suspicion The CT scanner at [facility] is accredited by the [employer] and the scans are performed using protocols designed to limit radiation exposure to as low as reasonably achievable to attain images of sufficient resolution adequate for diagnostic evaluation.
[2018-07-07 12:00] VITALS: BP 139/58
--- NOTE | 2018-07-07 12:30 | NUR ---
NURSE NOTES: Patient blood sugar is 60 at this time. Patient feeding discovered to be off from 0930 to 1130 this morning because it did not get turned back on after the patient went to CT. Patient given 25mL D50 and doctor will be notified.
--- NOTE | 2018-07-07 12:36 | GI Progress Note ---
Assessment/Plan Problems: (1) Severe anemia ICD Codes: D64.9 - Anemia, unspecified SNOMED: 253034777 (2) Protein-calorie malnutrition, severe ICD Codes: E43 - Unspecified severe protein-calorie malnutrition SNOMED: 145091860 (3) Rectal bleed ICD Codes: K62.5 - Hemorrhage of anus and rectum SNOMED: 01251480 (4) Upper GI bleed ICD Codes: K92.2 - Gastrointestinal hemorrhage, unspecified SNOMED: 29313469 (5) Severe malnutrition ICD Codes: E43 - Unspecified severe protein-calorie malnutrition SNOMED: 54602377 (6) Weakness ICD Codes: R53.1 - Weakness SNOMED: 17084801 (7) Dysphasia ICD Codes: R47.02 - Dysphasia SNOMED: 40803313 (8) Dehydration ICD Codes: E86.0 - Dehydration SNOMED: 97052473 (9) Acute encephalopathy ICD Codes: G93.40 - Encephalopathy, unspecified SNOMED: 20035794, 148548809 (10) Sepsis ICD Codes: A41.9 - Sepsis, unspecified organism SNOMED: 20044757 (11) Diabetes mellitus, type II ICD Codes: E11.9 - Type 2 diabetes mellitus without complications SNOMED: 72992549 (12) Colitis ICD Codes: K52.9 - Noninfective gastroenteritis and colitis, unspecified SNOMED: 98160533 Status: unchanged Status Narrative Discussed with Dr. Wallace. Assessment/Plan On airborne isolation EGD on hold per cardiology recs, pending NELDA to rule out endocarditis on ppi stool ob positive>> monitor H&H and transfuse as needed NGTF repeat labs The patient was seen and examined at bedside and all new and available data was reviewed in the patients chart. I agree with the above findings, impression and plan. (Patient seen earlier today. Signature stamp does not reflect patient encounter time.). - Oli Wallace MD Subjective Subjective Limited Objective Last 24 Hour Vital Signs Date Time Temp Pulse Resp B/P (MAP) Pulse Ox O2 Delivery O2 Flow Rate FiO2 07/07/18 12:00 Non-Rebreather 15.0 07/07/18 08:00 Non-Rebreather 15.0 07/07/18 08:00 98.1 75 14 139/68 (91) 100 07/07/18 07:47 64 07/07/18 04:00 98.0 66 16 152/55 (87) 100 07/07/18 04:00 Non-Rebreather 15.0 07/07/18 04:00 72 07/07/18 00:00 74 07/07/18 00:00 Non-Rebreather 15.0 07/07/18 00:00 98.4 67 13 147/62 (90) 100 07/06/18 20:00 70 07/06/18 20:00 Non-Rebreather 15.0 07/06/18 20:00 97.7 85 22 134/60 (84) 100 07/06/18 16:00 98.1 68 22 113/55 (74) 99 07/06/18 16:00 Non-Rebreather 15.0 07/06/18 16:00 83 Intake and Output 07/06/18 07/07/18 19:00 07:00 Intake Total 710 ml 790 ml Output Total 80 ml Balance 710 ml 710 ml Intake Free Water 75 ml IV Total 110 ml Tube Feeding 660 ml 605 ml Other 50 ml Output Urine Total 80 ml # Voids 2 2 # Bowel Movements 2 2 Laboratory Tests Test 07/07/18 03:45 White Blood Count 6.9 K/UL (4.8-10.8) Red Blood Count 2.98 M/UL (4.20-5.40) L Hemoglobin 8.6 G/DL (12.0-16.0) L Hematocrit 27.1 % (37.0-47.0) L Mean Corpuscular Volume 91 FL (80-99) Mean Corpuscular Hemoglobin 28.9 PG (27.0-31.0) Mean Corpuscular Hemoglobin Concent 31.8 G/DL (32.0-36.0) L Red Cell Distribution Width 19.9 % (11.6-14.8) H Platelet Count 78 K/UL (150-450) L Mean Platelet Volume 9.2 FL (6.5-10.1) Neutrophils (%) (Auto) % (45.0-75.0) Lymphocytes (%) (Auto) % (20.0-45.0) Monocytes (%) (Auto) % (1.0-10.0) Eosinophils (%) (Auto) % (0.0-3.0) Basophils (%) (Auto) % (0.0-2.0) Differential Total Cells Counted 100 Neutrophils % (Manual) 75 % (45-75) Lymphocytes % (Manual) 9 % (20-45) L Monocytes % (Manual) 4 % (1-10) Eosinophils % (Manual) 0 % (0-3) Basophils % (Manual) 0 % (0-2) Band Neutrophils 12 % (0-8) H Platelet Estimate Decreased L Platelet Morphology Normal Anisocytosis 2+ Erythrocyte Sedimentation Rate 79 MM/HR (0-30) H Sodium Level 147 MMOL/L (136-145) H Potassium Level 4.9 MMOL/L (3.5-5.1) Chloride Level 117 MMOL/L (98-107) H Carbon Dioxide Level 22 MMOL/L (21-32) Anion Gap 8 mmol/L (5-15) Blood Urea Nitrogen 27 mg/dL (7-18) H Creatinine 0.7 MG/DL (0.55-1.30) Estimat Glomerular Filtration Rate mL/min (>60) Glucose Level 135 MG/DL (74-106) H Calcium Level 8.0 MG/DL (8.5-10.1) L Phosphorus Level 2.6 MG/DL (2.5-4.9) Magnesium Level 1.7 MG/DL (1.8-2.4) L Total Bilirubin 0.7 MG/DL (0.2-1.0) Aspartate Amino Transf (AST/SGOT) 26 U/L (15-37) Alanine Aminotransferase (ALT/SGPT) 23 U/L (12-78) Alkaline Phosphatase 116 U/L (46-116) C-Reactive Protein, Quantitative 22.3 mg/dL (0.00-0.90) H Total Protein 5.2 G/DL (6.4-8.2) L Albumin 1.1 G/DL (3.4-5.0) L Globulin 4.1 g/dL Albumin/Globulin Ratio 0.3 (1.0-2.7) L Height (Feet): 5 Height (Inches): 5.00 Weight (Pounds): 147 General Appearance: no apparent distress Cardiovascular: normal rate Respiratory/Chest: other - non rebreather Abdominal Exam: soft Joe Sagastume NP Jul 07, 2018 12:36
--- NOTE | 2018-07-07 12:50 | NUR ---
NURSE NOTES: 15 min after D50 given, blood sugar is now 58. Patient will be given orange juice and reassess in 15 min.
--- NOTE | 2018-07-07 13:20 | NUR ---
NURSE NOTES: Patient blood sugar is now 65. Patient will be given another 25mL of D50 at this time.
--- NOTE | 2018-07-07 13:38 | NUR ---
PHLEBOTOMIST ASSOCIATEDOG TRAINER SI: RESP FAILURE T. 97.5 HR 75 RR 21 B/P 134/58 NA 147 BUN [address]=NEGATIVE FOR OSTEOMYELITIS IS: CEFTAROLINE IV DAPTOMYCIN IV MAG IV ZYPREXA PO STEP DOWN STATUS
--- NOTE | 2018-07-07 14:20 | NUR ---
NURSE NOTES: Patient blood sugar is 195 at this time. No coverage will be given.
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
--- NOTE | 2018-07-07 15:35 | Surgery Progress Note ---
Surgery Progress Note Subjective Additional Comments no acute events. still with tender swelling of left arm. CT noted. Objective Last 24 Hour Vital Signs Date Time Temp Pulse Resp B/P (MAP) Pulse Ox O2 Delivery O2 Flow Rate FiO2 07/07/18 12:00 Non-Rebreather 15.0 07/07/18 12:00 76 07/07/18 12:00 97.5 75 21 139/58 (85) 100 07/07/18 08:00 Non-Rebreather 15.0 07/07/18 08:00 98.1 75 14 139/68 (91) 100 07/07/18 07:47 64 07/07/18 04:00 98.0 66 16 152/55 (87) 100 07/07/18 04:00 Non-Rebreather 15.0 07/07/18 04:00 72 07/07/18 00:00 74 07/07/18 00:00 Non-Rebreather 15.0 07/07/18 00:00 98.4 67 13 147/62 (90) 100 07/06/18 20:00 70 07/06/18 20:00 Non-Rebreather 15.0 07/06/18 20:00 97.7 85 22 134/60 (84) 100 07/06/18 16:00 98.1 68 22 113/55 (74) 99 07/06/18 16:00 Non-Rebreather 15.0 07/06/18 16:00 83 I&O Intake and Output 07/06/18 07/07/18 19:00 07:00 Intake Total 710 ml 845 ml Output Total 80 ml Balance 710 ml 765 ml Intake Free Water 75 ml IV Total 110 ml Tube Feeding 660 ml 660 ml Other 50 ml Output Urine Total 80 ml # Voids 2 2 # Bowel Movements 2 2 Dressing: other Wound: other Drains: other Cardiovascular: RSR Respiratory: clear, decreased breath sounds Abdomen: soft, present bowel sounds Extremities: edema, tenderness, no cyanosis Laboratory Tests Test 07/07/18 03:45 White Blood Count 6.9 K/UL (4.8-10.8) Red Blood Count 2.98 M/UL (4.20-5.40) L Hemoglobin 8.6 G/DL (12.0-16.0) L Hematocrit 27.1 % (37.0-47.0) L Mean Corpuscular Volume 91 FL (80-99) Mean Corpuscular Hemoglobin 28.9 PG (27.0-31.0) Mean Corpuscular Hemoglobin Concent 31.8 G/DL (32.0-36.0) L Red Cell Distribution Width 19.9 % (11.6-14.8) H Platelet Count 78 K/UL (150-450) L Mean Platelet Volume 9.2 FL (6.5-10.1) Neutrophils (%) (Auto) % (45.0-75.0) Lymphocytes (%) (Auto) % (20.0-45.0) Monocytes (%) (Auto) % (1.0-10.0) Eosinophils (%) (Auto) % (0.0-3.0) Basophils (%) (Auto) % (0.0-2.0) Differential Total Cells Counted 100 Neutrophils % (Manual) 75 % (45-75) Lymphocytes % (Manual) 9 % (20-45) L Monocytes % (Manual) 4 % (1-10) Eosinophils % (Manual) 0 % (0-3) Basophils % (Manual) 0 % (0-2) Band Neutrophils 12 % (0-8) H Platelet Estimate Decreased L Platelet Morphology Normal Anisocytosis 2+ Erythrocyte Sedimentation Rate 79 MM/HR (0-30) H Sodium Level 147 MMOL/L (136-145) H Potassium Level 4.9 MMOL/L (3.5-5.1) Chloride Level 117 MMOL/L (98-107) H Carbon Dioxide Level 22 MMOL/L (21-32) Anion Gap 8 mmol/L (5-15) Blood Urea Nitrogen 27 mg/dL (7-18) H Creatinine 0.7 MG/DL (0.55-1.30) Estimat Glomerular Filtration Rate mL/min (>60) Glucose Level 135 MG/DL (74-106) H Calcium Level 8.0 MG/DL (8.5-10.1) L Phosphorus Level 2.6 MG/DL (2.5-4.9) Magnesium Level 1.7 MG/DL (1.8-2.4) L Total Bilirubin 0.7 MG/DL (0.2-1.0) Aspartate Amino Transf (AST/SGOT) 26 U/L (15-37) Alanine Aminotransferase (ALT/SGPT) 23 U/L (12-78) Alkaline Phosphatase 116 U/L (46-116) C-Reactive Protein, Quantitative 22.3 mg/dL (0.00-0.90) H Total Protein 5.2 G/DL (6.4-8.2) L Albumin 1.1 G/DL (3.4-5.0) L Globulin 4.1 g/dL Albumin/Globulin Ratio 0.3 (1.0-2.7) L Plan Problems: (1) Sepsis Assessment & Plan: Leukocytosis resolved LFT's elevated w/ t bili / d bili - improved AM labs ordered hydrate US Impression: Limited exam, as described. Note inability to visualize the spleen Negative for gallstones or dilated bile ducts Questionable bilateral renal parapelvic cysts Small to moderate right pleural effusion no acute surgical intervention planned. NELDA for septic emboli consider removing pacemaker as harboring sepsis source tube feeds as tolerated will follow with recs. (2) Sacral decubitus ulcer, stage III Assessment & Plan: DTPI sacrum.Maroon- indurated discoloration with opening at sacral coccygeal area(L)3.8cm x (W)1.4cm with entire wound measuring (L)10cmx(W) 12cm.Small amt malodorous brown exudate. Stable dry eschar R heel with dry peeling skin periwound (L)2cm x (W)3.5cm. Periwound is also red and boggy. Small dry eschar noted to lateral R 5th metatarsal (L)1.4cm x (W)0.3cm. L heel is boggy but colour is dusky . Resolving skin tear lateral R tibia. Wound bed is clean and dry. Tx. Plan: Cleanse Sacral wound with Saline.Apply Therahoney to opening at sacrococcygeal area.Cavilon skin barrier to DTPI. Cover with Optifoam drsg .Change Daily and prn. Apply Betadine to R heel and Lateral R 5th metatarsal.Cover with Abd pad .Wrap with kerlix daily and prn. Apply Cavilon Skin Barrier to L heel.Cover with Optifoam drsg .Change every 7 days and prn. Reposition at least every 2hours or as tolerated. Off-load heels with pillow. (3) Rectal bleed (4) Protein-calorie malnutrition, severe (5) Dehydration (6) IV infiltration Assessment & Plan: left hand IV infiltration prior and now with edema/ irritation noted + ecchymosis on hand and arm keep hand and arm elevated medication reaction and will need to be monitored for worsening poor tissue / protoplasm CT - Diffuse edema of the subcutaneous and deep fat and likely upper arm and forearm musculature. Given stated clinical history, possibly secondary to cellulitis and myositis, but could also be hemodynamic in origin. No discrete rim-enhancing collection to suggest abscess No CT evidence of acute osteomyelitis. Note, however, somewhat limited sensitivity of CT for such. Consider bone scan for further evaluation if there is high clinical suspicion Sher Younger Jul 07, 2018 15:35
[2018-07-07 16:00] VITALS: BP 133/64
--- NOTE | 2018-07-07 16:15 | Infectious Diseases Prog Note ---
Assessment/Plan Assessment/Plan 82 yo female with PMHx DM, CAD, Alzheimer dementia and Hip fracture who presents with dehydration and weakness. 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 Given normal appearing chest radiograph on 06/24/2018, these are overwhelmingly likely infectious/inflammatory in nature. Most likely represent septic pulmonary emboli. The possibility of mycobacterial infection should also be included, deemed less likely given absence of adenopathy but still possible. Differential considerations also include fungal infections, noninfectious inflammatory processes. Other noncavitary nodules are also demonstrated, with the same differential. Large right and [id number] left pleural effusions. Compressive atelectasis of the majority of the right lower lobe. Infiltrates seen in the right upper lobe. Bilateral pacemaker. Evidence of central venoocclusive disease. Wedge-shaped area of low-attenuation in the upper pole of the spleen, suspicious for infarct. -2d Echo (limited study due to contractures): no vegetations seen -06/27 Bcx 08/19MRSA; 06/28 Bcx 06/21 MRSA; 06/29 08/19 MRSA; 07/01 Bcx 08/19 MRSA 06/25/18 Blood Cx 08/19 MRSA 06/24/18 Wound Cx MRSA, ESBL E.coli (S ZOsyn), K. pna (S Zosyn) Gram neg bacteremia- ?source- UTI vs Mid mary infection vs from lungs -07/06 BCx 08/19 GNR r/o Probable PNA -07/06 CXR: Increased and now large right-sided pleural effusion, compared to prior study of 06/27/2018. Note that a large pleural effusion is evident on recent CT scan of 5 days earlier -sp cx ESBL K.pna and ESBL E>coli (both S Meropenem, Zosyn) L arm cellulitis from IV infiltration -CT L arm: Diffuse edema of the subcutaneous and deep fat and likely upper arm and forearm musculature. Given stated clinical history, possibly secondary to cellulitis and myositis, but could also be hemodynamic in origin. No discrete rim-enhancing collection to suggest abscess. No CT evidence of acute osteomyelitis. Leukocytosis, SP Low grade fever; SP Positive UA CXR neg Thrombocytopenia- HIT vs medication related Pressure ulcers Not infected Right hip fracture with hemiarthroplasty Feb 2018 DM HTN Sick sinus syndrome sp Pacemaker HLD CAD - SP OR and CABG Aortic stenosis. Pulmonary hypertension. Alzheimer dementia. PLAN - Continue Daptomycin #8 (abx d #13) and Ceftaroline #6 given persistent MRSA Bacteremia -Add Meropenem for GNR bacteremia and ESBL in sputum - repeat 2 sets of Bcx daily until clearance of bacteremia -/ SP Vancomycin #6 -2/ SP Zosyn #4 -06/27 SP Cefepime #3 -Will need NELDA and removal of PPM for bacteremia clearance/source control if consistent with goals of care -plan for NELDA when more stable -consider thoracentesis -D/c airborne isolation -f/u final AFB cx x3 - f/u repeat cultures - Monitor CBC and temps - wound care - Nutritional support -f/u cocci, crAg, histo, blasto serologies -Sx/ fu -L arm elevation Thank you for this consult. We will continue to follow the patient during this hospitalization. Subjective Allergies: Coded Allergies: No Known Allergies (Unverified , 08/10/13) Subjective ; afebrile still bacteremic but now GNR ?? afb sputum smear neg x3 and neg MTB PCR L arm swellign and erythema on NRB Objective Vital Signs Last 24 Hour Vital Signs Date Time Temp Pulse Resp B/P (MAP) Pulse Ox O2 Delivery O2 Flow Rate FiO2 07/07/18 12:00 Non-Rebreather 15.0 07/07/18 12:00 76 07/07/18 12:00 97.5 75 21 139/58 (85) 100 07/07/18 08:00 Non-Rebreather 15.0 07/07/18 08:00 98.1 75 14 139/68 (91) 100 07/07/18 07:47 64 07/07/18 04:00 98.0 66 16 152/55 (87) 100 07/07/18 04:00 Non-Rebreather 15.0 07/07/18 04:00 72 07/07/18 00:00 74 07/07/18 00:00 Non-Rebreather 15.0 07/07/18 00:00 98.4 67 13 147/62 (90) 100 07/06/18 20:00 70 07/06/18 20:00 Non-Rebreather 15.0 07/06/18 20:00 97.7 85 22 134/60 (84) 100 Height (Feet): 5 Height (Inches): 5.00 Weight (Pounds): 147 Objective Gen: Moaning, Awake but no following HEENT: NCAT, MMM, EOMI, PERRL LUNGS: CTAB, No W CARDS: RRR, S1, S2, No M/R/G, ABD: Soft, NT, ND, + BS Ext: Poor circulation to Ext (cool to touch) , Pulses 2+ B/L (DP, Rad): SKIN: Dry, No rashes, Large sacral ulcer. Mild odor no surrounding cellulitis, foot with eschar Microbiology Date/Time Source Procedure Growth Status 07/06/18 04:20 Blood Blood Culture - Preliminary Resulted 07/06/18 04:00 Blood Blood Culture - Preliminary Resulted 07/05/18 07:30 Blood Blood Culture - Preliminary Staphylococcus Aureus Resulted 07/05/18 07:20 Blood Blood Culture - Preliminary Staphylococcus Aureus Resulted 07/05/18 23:50 Sputum AFB Specimen Processing Tissue - Final Resulted 07/05/18 23:50 Sputum Acid Fast Bacilli Smear - Final Resulted 07/05/18 23:50 Sputum Acid Fast Bacilli Culture Pending Resulted 07/05/18 03:25 Sputum AFB Specimen Processing Tissue - Final Resulted 07/05/18 03:25 Sputum Acid Fast Bacilli Smear - Final Resulted 07/05/18 03:25 Sputum Acid Fast Bacilli Culture Pending Resulted 07/05/18 03:25 Sputum Expectorated Gram Stain - Final Resulted 07/05/18 03:25 Sputum Culture - Preliminary Klebsiella Pneumoniae Esbl Escherichia Coli Resulted Laboratory Tests Test 07/07/18 03:45 White Blood Count 6.9 K/UL (4.8-10.8) Red Blood Count 2.98 M/UL (4.20-5.40) L Hemoglobin 8.6 G/DL (12.0-16.0) L Hematocrit 27.1 % (37.0-47.0) L Mean Corpuscular Volume 91 FL (80-99) Mean Corpuscular Hemoglobin 28.9 PG (27.0-31.0) Mean Corpuscular Hemoglobin Concent 31.8 G/DL (32.0-36.0) L Red Cell Distribution Width 19.9 % (11.6-14.8) H Platelet Count 78 K/UL (150-450) L Mean Platelet Volume 9.2 FL (6.5-10.1) Neutrophils (%) (Auto) % (45.0-75.0) Lymphocytes (%) (Auto) % (20.0-45.0) Monocytes (%) (Auto) % (1.0-10.0) Eosinophils (%) (Auto) % (0.0-3.0) Basophils (%) (Auto) % (0.0-2.0) Differential Total Cells Counted 100 Neutrophils % (Manual) 75 % (45-75) Lymphocytes % (Manual) 9 % (20-45) L Monocytes % (Manual) 4 % (1-10) Eosinophils % (Manual) 0 % (0-3) Basophils % (Manual) 0 % (0-2) Band Neutrophils 12 % (0-8) H Platelet Estimate Decreased L Platelet Morphology Normal Anisocytosis 2+ Erythrocyte Sedimentation Rate 79 MM/HR (0-30) H Sodium Level 147 MMOL/L (136-145) H Potassium Level 4.9 MMOL/L (3.5-5.1) Chloride Level 117 MMOL/L (98-107) H Carbon Dioxide Level 22 MMOL/L (21-32) Anion Gap 8 mmol/L (5-15) Blood Urea Nitrogen 27 mg/dL (7-18) H Creatinine 0.7 MG/DL (0.55-1.30) Estimat Glomerular Filtration Rate mL/min (>60) Glucose Level 135 MG/DL (74-106) H Calcium Level 8.0 MG/DL (8.5-10.1) L Phosphorus Level 2.6 MG/DL (2.5-4.9) Magnesium Level 1.7 MG/DL (1.8-2.4) L Total Bilirubin 0.7 MG/DL (0.2-1.0) Aspartate Amino Transf (AST/SGOT) 26 U/L (15-37) Alanine Aminotransferase (ALT/SGPT) 23 U/L (12-78) Alkaline Phosphatase 116 U/L (46-116) C-Reactive Protein, Quantitative 22.3 mg/dL (0.00-0.90) H Total Protein 5.2 G/DL (6.4-8.2) L Albumin 1.1 G/DL (3.4-5.0) L Globulin 4.1 g/dL Albumin/Globulin Ratio 0.3 (1.0-2.7) L Current Medications Medications (Trade) Dose Ordered Sig/Yi Route PRN Reason Start Time Stop Time Status Last Admin Dose Admin Acetaminophen (Tylenol) 650 mg Q4H PRN NG Mild Pain/Temp > 100.5 07/05/18 16:30 07/29/18 16:29 07/06/18 18:46 Ceftaroline Fosamil 400 mg/ Sodium Chloride 55 ml @ 55 mls/hr Q12HR IV 07/05/18 21:00 07/10/18 08:59 07/07/18 10:10 Clonidine HCl (Catapres Tab) 0.1 mg Q8H PRN NG SBP>160mmHg 07/05/18 16:30 07/25/18 16:29 Daptomycin 600 mg/ Sodium Chloride 55 ml @ 100 mls/hr Q24H IV 07/06/18 18:00 07/13/18 17:59 07/06/18 18:46 Dextrose (Dextrose 50%) 25 ml Q30M PRN IV Hypoglycemia 07/05/18 16:45 07/24/18 13:30 07/07/18 13:21 Dextrose (Dextrose 50%) 50 ml Q30M PRN IV hypoglycemia 07/05/18 16:45 07/24/18 13:44 07/05/18 19:28 Insulin Aspart (NovoLOG) EVERY 6 HOURS SUBQ 07/05/18 18:00 07/24/18 16:29 07/07/18 05:48 Lansoprazole (Prevacid) 30 mg DAILY NG 07/06/18 09:00 08/02/18 08:59 07/07/18 09:07 Olanzapine (ZyPREXA) 2.5 mg BID NG 07/05/18 18:00 07/25/18 10:59 07/07/18 09:07 Ondansetron HCl (Zofran) 4 mg Q6H PRN IVP Nausea & Vomiting 07/05/18 16:30 07/25/18 16:29 Roseann Bardales M.D. Jul 07, 2018 16:15
--- NOTE | 2018-07-07 16:35 | NUR ---
NURSE NOTES: Left message for Dr Matthews regarding low blood sugar of 58 for which 50mL of D50 was given.
[2018-07-07] MEDS ORDERED: Ertapenem 1 GM in NS 55 ML IVPB SCH (18:00)
[2018-07-07] MEDS: Meropenem 1 GM in NS 55 ML IVPB SCH (18:21)
[2018-07-07] MEDS: DAPTOmycin 600 MG in NS 55 ML IV SCH (18:21)
--- NOTE | 2018-07-07 18:55 | NUR ---
NURSE NOTES: Spoke with Dr Matthews in person regarding blood sugar drop.
--- NOTE | 2018-07-07 19:15 | NUR ---
NURSE NOTES: Report received from SOILA Gonzalez. Pt A/Ox1. Yemeni speaking. front desk monitor shows SR. Pt on a non-rebreather mask 15 liters @100%. Tolerating settings well. Pt has an NGT in place located in the left nare with glucerna 1.2 running at 55 ml/hr. Purewick present and working well. Multiple wounds present. Pt has swelling and redness located on CHRISTIAN, painful to touch. Pt has a J CARLOS midline present asymptomatic and patent. Will continue to monitor and with patients plan of care.
--- NOTE | 2018-07-07 19:24 | NUR ---
HAND-OFF: Report given to SOILA Lanza. Patient VS stable with no sign of acute distress.
--- NOTE | 2018-07-07 19:32 | Internal Med Progress Note ---
Subjective Date of Service: Jul 07, 2018 Physician Name Aquilino Matthews Attending Physician Carlos Alberto Berkowitz MD Current Medications Medications (Trade) Dose Ordered Sig/Yi Route PRN Reason Start Time Stop Time Status Last Admin Dose Admin Acetaminophen (Tylenol) 650 mg Q4H PRN NG Mild Pain/Temp > 100.5 07/05/18 16:30 07/29/18 16:29 07/06/18 18:46 Ceftaroline Fosamil 400 mg/ Sodium Chloride 55 ml @ 55 mls/hr Q12HR IV 07/05/18 21:00 07/10/18 08:59 07/07/18 10:10 Clonidine HCl (Catapres Tab) 0.1 mg Q8H PRN NG SBP>160mmHg 07/05/18 16:30 07/25/18 16:29 Daptomycin 600 mg/ Sodium Chloride 55 ml @ 100 mls/hr Q24H IV 07/06/18 18:00 07/13/18 17:59 07/07/18 18:21 Dextrose (Dextrose 50%) 25 ml Q30M PRN IV Hypoglycemia 07/05/18 16:45 07/24/18 13:30 07/07/18 13:21 Dextrose (Dextrose 50%) 50 ml Q30M PRN IV hypoglycemia 07/05/18 16:45 07/24/18 13:44 07/05/18 19:28 Insulin Aspart (NovoLOG) EVERY 6 HOURS SUBQ 07/05/18 18:00 07/24/18 16:29 07/07/18 18:26 Lansoprazole (Prevacid) 30 mg DAILY NG 07/06/18 09:00 08/02/18 08:59 07/07/18 09:07 Meropenem 1 gm/ Sodium Chloride 55 ml @ 110 mls/hr Q12H IVPB 07/07/18 18:00 07/12/18 17:59 07/07/18 18:21 Olanzapine (ZyPREXA) 2.5 mg BID NG 07/05/18 18:00 07/25/18 10:59 07/07/18 18:22 Ondansetron HCl (Zofran) 4 mg Q6H PRN IVP Nausea & Vomiting 07/05/18 16:30 07/25/18 16:29 Allergies: Coded Allergies: No Known Allergies (Unverified , 08/10/13) ROS Limited/Unobtainable: Yes Subjective 82 YO F admitted with dehydration and hypoxia. Now sepsis. Cover for Int Med- Dr Berkowitz. Continues on non rebreather mask. MATTI Objective Last Vital Signs Date Time Temp Pulse Resp B/P (MAP) Pulse Ox O2 Delivery O2 Flow Rate FiO2 07/07/18 16:00 97.3 91 15 133/64 (87) 100 07/07/18 16:00 Non-Rebreather 15.0 07/06/18 09:19 100 Laboratory Tests Test 07/07/18 03:45 White Blood Count 6.9 K/UL (4.8-10.8) Red Blood Count 2.98 M/UL (4.20-5.40) L Hemoglobin 8.6 G/DL (12.0-16.0) L Hematocrit 27.1 % (37.0-47.0) L Mean Corpuscular Volume 91 FL (80-99) Mean Corpuscular Hemoglobin 28.9 PG (27.0-31.0) Mean Corpuscular Hemoglobin Concent 31.8 G/DL (32.0-36.0) L Red Cell Distribution Width 19.9 % (11.6-14.8) H Platelet Count 78 K/UL (150-450) L Mean Platelet Volume 9.2 FL (6.5-10.1) Neutrophils (%) (Auto) % (45.0-75.0) Lymphocytes (%) (Auto) % (20.0-45.0) Monocytes (%) (Auto) % (1.0-10.0) Eosinophils (%) (Auto) % (0.0-3.0) Basophils (%) (Auto) % (0.0-2.0) Differential Total Cells Counted 100 Neutrophils % (Manual) 75 % (45-75) Lymphocytes % (Manual) 9 % (20-45) L Monocytes % (Manual) 4 % (1-10) Eosinophils % (Manual) 0 % (0-3) Basophils % (Manual) 0 % (0-2) Band Neutrophils 12 % (0-8) H Platelet Estimate Decreased L Platelet Morphology Normal Anisocytosis 2+ Erythrocyte Sedimentation Rate 79 MM/HR (0-30) H Sodium Level 147 MMOL/L (136-145) H Potassium Level 4.9 MMOL/L (3.5-5.1) Chloride Level 117 MMOL/L (98-107) H Carbon Dioxide Level 22 MMOL/L (21-32) Anion Gap 8 mmol/L (5-15) Blood Urea Nitrogen 27 mg/dL (7-18) H Creatinine 0.7 MG/DL (0.55-1.30) Estimat Glomerular Filtration Rate mL/min (>60) Glucose Level 135 MG/DL (74-106) H Calcium Level 8.0 MG/DL (8.5-10.1) L Phosphorus Level 2.6 MG/DL (2.5-4.9) Magnesium Level 1.7 MG/DL (1.8-2.4) L Total Bilirubin 0.7 MG/DL (0.2-1.0) Aspartate Amino Transf (AST/SGOT) 26 U/L (15-37) Alanine Aminotransferase (ALT/SGPT) 23 U/L (12-78) Alkaline Phosphatase 116 U/L (46-116) C-Reactive Protein, Quantitative 22.3 mg/dL (0.00-0.90) H Total Protein 5.2 G/DL (6.4-8.2) L Albumin 1.1 G/DL (3.4-5.0) L Globulin 4.1 g/dL Albumin/Globulin Ratio 0.3 (1.0-2.7) L Microbiology Date/Time Source Procedure Growth Status 07/06/18 04:20 Blood Blood Culture - Preliminary Resulted 07/06/18 04:00 Blood Blood Culture - Preliminary Resulted 07/05/18 07:30 Blood Blood Culture - Preliminary Staphylococcus Aureus Resulted 07/05/18 07:20 Blood Blood Culture - Preliminary Staphylococcus Aureus Resulted 07/05/18 23:50 Sputum AFB Specimen Processing Tissue - Final Resulted 07/05/18 23:50 Sputum Acid Fast Bacilli Smear - Final Resulted 07/05/18 23:50 Sputum Acid Fast Bacilli Culture Pending Resulted 07/05/18 03:25 Sputum AFB Specimen Processing Tissue - Final Resulted 07/05/18 03:25 Sputum Acid Fast Bacilli Smear - Final Resulted 07/05/18 03:25 Sputum Acid Fast Bacilli Culture Pending Resulted 07/05/18 03:25 Sputum Expectorated Gram Stain - Final Resulted 07/05/18 03:25 Sputum Culture - Preliminary Klebsiella Pneumoniae Esbl Escherichia Coli Resulted Intake and Output 07/06/18 07/07/18 19:00 07:00 Intake Total 710 ml 845 ml Output Total 80 ml Balance 710 ml 765 ml Intake Free Water 75 ml IV Total 110 ml Tube Feeding 660 ml 660 ml Other 50 ml Output Urine Total 80 ml # Voids 2 2 # Bowel Movements 2 2 Objective Objective General: No acute distress, awake and less responsive, Sleepy, cachectic. HEENT: NCAT, sclera anicteric, PERRL, NG tube. Neck: Supple, no significant jugular venous distention, Lungs: Non-rebreather mask; Poor inspiratory effort, decreased air in the bases , Bilateral Wheeze and Rales. Heart: Regular rate and rhythm, normal S1/S2, no murmur. Abdomen: soft, nontender, nondistended. Normoactive bowel sounds. / Rectal: Refused and deferred. Extremities: No Cyanosis , No clubbing, Left UE edema. Lateral lower extremity / feet dressing intact. Neuro: A&O x 1, Able to move all extremities Skin: warm, no rashes or lesions, ecchymosis in bilateral upper extremity noted. Assessment/Plan Assessment/Plan Assessment/Plan Assessment/Plan 1. Sepsis / METHACILLIN RESISTANT STAPHYLOCOCCUS AUREUS bacteremia, lactic acidosis. 2. Failure to thrive with severe protein calorie malnutrition. 3. Coronary artery disease. 4. Diabetes, type 2. 5. Hypertension. 6. Sick sinus syndrome. 7. Hypercholesterolemia. 8. Aortic stenosis. 9. Pulmonary hypertension. 10. Alzheimer dementia. 11. Acute tubular necrosis/acute kidney injury most likely secondary to dehydration and sepsis. 12. Sacral decubitus ulcer, stage III 13. Severe dehydration 14. Hypokalemia. 15. Abnormal liver function test 16. Anemia/thrombocytopenia 17. Bilateral pneumonia ?septic emboli? TREATMENT: 1. Patient on broad spectrum antibiotics with meropenem and ceftaroline. Will require transesophageal echocardiogram to R/O endocarditis-see ID note 2. Coronary artery disease. The patient is status post coronary artery bypass graft in 2017. 3. Diabetes, type 2. The patient has been started on NovoLog sliding scale. 4. Hypertension. The patient is to continue on atenolol and losartan as above. 5. Sick sinus syndrome. The patient is status post pacemaker implantation. 6. Hypercholesterolemia. Continue simvastatin as above. 7. Aortic stenosis. 8. Pulmonary hypertension. 9. Alzheimer dementia. 10. Anemia/thrombocytopenia-S/P 1 unit PRBC on 06/28/18. Heme/Onc consult. Hold heparin 11. Septic pulmonary emboli-await NELDA on Thursday07/06/18-see cardiology note- needs NG removed for NELDA-Discussed with Dr Oliver Restart tube feeding at rate of 45 cc/hr. CODE STATUS is full code as per ARLET, DVT prophylaxis: D/C Heparin subcu due to thrombocytopenia Aquilino Matthews MD Jul 07, 2018 19:32
[2018-07-07 20:00] VITALS: BP 135/64
--- NOTE | 2018-07-07 21:00 | NUR ---
NURSE NOTES: Received bedside report from SOILA Lanza.Patient stable,SR on position clerk,no s/s of pain,no respiratory distress noted,tolerated well nonrebreather mask @15 L,Sat O2 100%,NGT on L nares running with Glucerna 1.2 @55 ml/hr,BS active in all quadrants,pt on P 200 mattress d/t pressure ulcers,IV on a J CARLOS midline,last time dressing changed on 06/30/18,bed secured call light within a reach,will continue to monitor and follow POC.
--- NOTE | 2018-07-07 21:06 | General Progress Note ---
Assessment/Plan Assessment/Plan ASSESSMENT/RECS: 1. Pancytopenia with thrombocytopenia that is severe is most likely related to Sepsis, lactic acidosis. In addition has received heparin. US abdomen ordered and shows no spleen and no cirrhosis --> heparin discontinued --> HIT ab test reviewed --> venous duplex negative --> smear peripheral has been reviewed and negative for abnml cells --> tumor markers as needed/prn --> hold off on transfusion unless plt <20k --> hold off on steriods --> plt trend: 34--> 50k 2. Failure to thrive with severe protein calorie malnutrition. ->> calorie counts daily --> consider mirtazapine as needed per pcp --> getting ngtfs 3. Anemia of chronic disease --> panel has been reviewed --> transfuse if hgb <7 4. Leukocytosis --> on abx as per id for infection 5. Hypertension. 6. Sick sinus syndrome. 7. Hypercholesterolemia. 8. Aortic stenosis. 9. Pulmonary hypertension. 10. Alzheimer dementia. 11. Acute tubular necrosis/acute kidney injury most likely secondary to dehydration and sepsis. Greatly appreciate consultation! Subjective Allergies: Coded Allergies: No Known Allergies (Unverified , 08/10/13) Subjective 07/01:seen by bedside, Possible EGD tomorrow to evaluate upper GI bleed, today's EGD was canceled by anesthesia, plt remains low at 34, hgb trending up . 07/02: Scheduled for EGD today,CT w/ cavitary lung lessions; placed on isolation , remains bacteremic, wbc 12. 07/04: continues to be somewhat sob, imaging reviewed, labs are better this am, plts uptrending, getting ngtfs 07/05: awake, comfortable, no events 07/06: Pt is confused, screaming, Left upper extremity ecchymosis, edema. no abscess,ID following, plt trending up. 07/07: awake, comfortable, no acute distress. Objective Last 24 Hour Vital Signs Date Time Temp Pulse Resp B/P (MAP) Pulse Ox O2 Delivery O2 Flow Rate FiO2 07/07/18 20:00 Non-Rebreather 15.0 07/07/18 20:00 97.9 89 20 135/64 (87) 100 07/07/18 16:00 97.3 91 15 133/64 (87) 100 2/20/19 16:00 82 07/07/18 16:00 Non-Rebreather 15.0 07/07/18 12:00 Non-Rebreather 15.0 07/07/18 12:00 76 07/07/18 12:00 97.5 75 21 139/58 (85) 100 07/07/18 08:00 Non-Rebreather 15.0 07/07/18 08:00 98.1 75 14 139/68 (91) 100 07/07/18 07:47 64 07/07/18 04:00 98.0 66 16 152/55 (87) 100 07/07/18 04:00 Non-Rebreather 15.0 07/07/18 04:00 72 07/07/18 00:00 74 07/07/18 00:00 Non-Rebreather 15.0 07/07/18 00:00 98.4 67 13 147/62 (90) 100 Intake and Output 07/06/18 07/07/18 19:00 07:00 Intake Total 710 ml 845 ml Output Total 80 ml Balance 710 ml 765 ml Intake Free Water 75 ml IV Total 110 ml Tube Feeding 660 ml 660 ml Other 50 ml Output Urine Total 80 ml # Voids 2 2 # Bowel Movements 2 2 Laboratory Tests 07/07/18 03:45: White Blood Count 6.9, Red Blood Count 2.98L, Hemoglobin 8.6L, Hematocrit 27.1L , Mean Corpuscular Volume 91, Mean Corpuscular Hemoglobin 28.9, Mean Corpuscular Hemoglobin Concent 31.8L, Red Cell Distribution Width 19.9H, Platelet Count 78L, Mean Platelet Volume 9.2, Neutrophils (%) (Auto) , Lymphocytes (%) (Auto) , Monocytes (%) (Auto) , Eosinophils (%) (Auto) , Basophils (%) (Auto) , Differential Total Cells Counted 100, Neutrophils % ( Manual) 75, Lymphocytes % (Manual) 9L, Monocytes % (Manual) 4, Eosinophils % ( Manual) 0, Basophils % (Manual) 0, Band Neutrophils 12H, Platelet Estimate DecreasedL, Platelet Morphology Normal, Anisocytosis 2+, Erythrocyte Sedimentation Rate 79H, Sodium Level 147H, Potassium Level 4.9, Chloride Level 117H, Carbon Dioxide Level 22, Anion Gap 8, Blood Urea Nitrogen 27H, Creatinine 0.7, Estimat Glomerular Filtration Rate , Glucose Level 135H, Calcium Level 8.0L , Phosphorus Level 2.6, Magnesium Level 1.7L, Total Bilirubin 0.7, Aspartate Amino Transf (AST/SGOT) 26, Alanine Aminotransferase (ALT/SGPT) 23, Alkaline Phosphatase 116, C-Reactive Protein, Quantitative 22.3H, Total Protein 5.2L, Albumin 1.1L, Globulin 4.1, Albumin/Globulin Ratio 0.3L Height (Feet): 5 Height (Inches): 5.00 Weight (Pounds): 147 Objective GENERAL: Awake responsive to deep stimuli with opening of her eyes, in no apparent distress. HEENT: Eyes, pupils equal responsive to light and accommodation. ++ ngtf CHEST: Poor inspiratory effort, decreased air in the bases no wheezes or rhonchi was appreciated CARDIOVASCULAR: Regular rhythm and rate. S1 and S2 are normal without murmurs or gallops. ABDOMEN: Soft, nontender, and nondistended. Positive bowel sounds. No rebounding or guarding noted. EXTREMITIES: Negative for clubbing, cyanosis, or edema, muscle atrophy in bilateral lower extremity RECTAL/GENITAL: Not performed. NEUROLOGIC:somewhat responsive, better than before Kadeem Bennett MD Jul 07, 2018 21:06
--- NOTE | 2018-07-07 21:34 | Cardiology Progress Note ---
Assessment/Plan Assessment/Plan continue to monitor, NELDA early next week, will need NG tube out for NELDA Subjective Subjective The patient is confused and screaming, but occasionally is responding to questions, she looks slightly better Objective Last 24 Hour Vital Signs Date Time Temp Pulse Resp B/P (MAP) Pulse Ox O2 Delivery O2 Flow Rate FiO2 07/07/18 20:00 Non-Rebreather 15.0 07/07/18 20:00 97.9 89 20 135/64 (87) 100 07/07/18 16:00 97.3 91 15 133/64 (87) 100 07/07/18 16:00 82 07/07/18 16:00 Non-Rebreather 15.0 07/07/18 12:00 Non-Rebreather 15.0 07/07/18 12:00 76 07/07/18 12:00 97.5 75 21 139/58 (85) 100 07/07/18 08:00 Non-Rebreather 15.0 07/07/18 08:00 98.1 75 14 139/68 (91) 100 07/07/18 07:47 64 07/07/18 04:00 98.0 66 16 152/55 (87) 100 07/07/18 04:00 Non-Rebreather 15.0 07/07/18 04:00 72 07/07/18 00:00 74 07/07/18 00:00 Non-Rebreather 15.0 07/07/18 00:00 98.4 67 13 147/62 (90) 100 General Appearance: thin, agitated EENT: PERRL/EOMI Neck: supple, no JVD Rhythm: NSR Cardiovascular: normal rate, systolic murmur Respiratory/Chest: accessory muscle use Abdomen: distended Extremities: other - left arm severe erhythema Neurologic: other - confused Intake and Output 07/06/18 07/07/18 19:00 07:00 Intake Total 710 ml 845 ml Output Total 80 ml Balance 710 ml 765 ml Intake Free Water 75 ml IV Total 110 ml Tube Feeding 660 ml 660 ml Other 50 ml Output Urine Total 80 ml # Voids 2 2 # Bowel Movements 2 2 Laboratory Tests Test 07/07/18 03:45 White Blood Count 6.9 K/UL (4.8-10.8) Red Blood Count 2.98 M/UL (4.20-5.40) L Hemoglobin 8.6 G/DL (12.0-16.0) L Hematocrit 27.1 % (37.0-47.0) L Mean Corpuscular Volume 91 FL (80-99) Mean Corpuscular Hemoglobin 28.9 PG (27.0-31.0) Mean Corpuscular Hemoglobin Concent 31.8 G/DL (32.0-36.0) L Red Cell Distribution Width 19.9 % (11.6-14.8) H Platelet Count 78 K/UL (150-450) L Mean Platelet Volume 9.2 FL (6.5-10.1) Neutrophils (%) (Auto) % (45.0-75.0) Lymphocytes (%) (Auto) % (20.0-45.0) Monocytes (%) (Auto) % (1.0-10.0) Eosinophils (%) (Auto) % (0.0-3.0) Basophils (%) (Auto) % (0.0-2.0) Differential Total Cells Counted 100 Neutrophils % (Manual) 75 % (45-75) Lymphocytes % (Manual) 9 % (20-45) L Monocytes % (Manual) 4 % (1-10) Eosinophils % (Manual) 0 % (0-3) Basophils % (Manual) 0 % (0-2) Band Neutrophils 12 % (0-8) H Platelet Estimate Decreased L Platelet Morphology Normal Anisocytosis 2+ Erythrocyte Sedimentation Rate 79 MM/HR (0-30) H Sodium Level 147 MMOL/L (136-145) H Potassium Level 4.9 MMOL/L (3.5-5.1) Chloride Level 117 MMOL/L (98-107) H Carbon Dioxide Level 22 MMOL/L (21-32) Anion Gap 8 mmol/L (5-15) Blood Urea Nitrogen 27 mg/dL (7-18) H Creatinine 0.7 MG/DL (0.55-1.30) Estimat Glomerular Filtration Rate mL/min (>60) Glucose Level 135 MG/DL (74-106) H Calcium Level 8.0 MG/DL (8.5-10.1) L Phosphorus Level 2.6 MG/DL (2.5-4.9) Magnesium Level 1.7 MG/DL (1.8-2.4) L Total Bilirubin 0.7 MG/DL (0.2-1.0) Aspartate Amino Transf (AST/SGOT) 26 U/L (15-37) Alanine Aminotransferase (ALT/SGPT) 23 U/L (12-78) Alkaline Phosphatase 116 U/L (46-116) C-Reactive Protein, Quantitative 22.3 mg/dL (0.00-0.90) H Total Protein 5.2 G/DL (6.4-8.2) L Albumin 1.1 G/DL (3.4-5.0) L Globulin 4.1 g/dL Albumin/Globulin Ratio 0.3 (1.0-2.7) L Microbiology Date/Time Source Procedure Growth Status 07/06/18 04:20 Blood Blood Culture - Preliminary Resulted 07/06/18 04:00 Blood Blood Culture - Preliminary Resulted 07/05/18 07:30 Blood Blood Culture - Preliminary Staphylococcus Aureus Resulted 07/05/18 07:20 Blood Blood Culture - Preliminary Staphylococcus Aureus Resulted 07/05/18 23:50 Sputum AFB Specimen Processing Tissue - Final Resulted 07/05/18 23:50 Sputum Acid Fast Bacilli Smear - Final Resulted 07/05/18 23:50 Sputum Acid Fast Bacilli Culture Pending Resulted 07/05/18 03:25 Sputum AFB Specimen Processing Tissue - Final Resulted 07/05/18 03:25 Sputum Acid Fast Bacilli Smear - Final Resulted 07/05/18 03:25 Sputum Acid Fast Bacilli Culture Pending Resulted 07/05/18 03:25 Sputum Expectorated Gram Stain - Final Resulted 07/05/18 03:25 Sputum Culture - Preliminary Klebsiella Pneumoniae Esbl Escherichia Coli Resulted Karol Oliver MD Jul 07, 2018 21:34
[2018-07-08] VITALS (7 sets, daily range): BP systolic 113–150; BP diastolic 50–76
[2018-07-08] MEDS: NovoLOG Insulin Flexpen SUBQ SCH ×4 (00:28→18:23)
[2018-07-08 05:43] LABS: HEMOGLOBIN 8.3 G/DL (12.0-16.0); MEAN CORPUSCULAR VOLUME 91 FL (80-99); PLATELET COUNT 93 K/UL (150-450); RED BLOOD COUNT 2.86 M/UL (4.20-5.40); RED CELL DISTRIBUTION WIDTH 18.9 % (11.6-14.8); WHITE BLOOD COUNT 6.6 K/UL (4.8-10.8)
[2018-07-08] MEDS: Meropenem 1 GM in NS 55 ML IVPB SCH ×2 (05:57→18:25)
[2018-07-08 06:35] LABS: ANION GAP 7 mmol/L (5-15); BLOOD UREA NITROGEN 28 mg/dL (7-18); CALCIUM 7.9 MG/DL (8.5-10.1); CARBON DIOXIDE 23 MMOL/L (21-32); CHLORIDE 118 MMOL/L (98-107); CREATININE 0.7 MG/DL (0.55-1.30); POTASSIUM 5.1 MMOL/L (3.5-5.1); SODIUM 148 MMOL/L (136-145)
[2018-07-08 06:40] LABS: CREATINE KINASE 137 U/L (26-308)
--- NOTE | 2018-07-08 07:11 | NUR ---
HAND-OFF: Report given to SOILA Mcgee.Patient stable.
--- NOTE | 2018-07-08 07:15 | NUR ---
NURSE NOTES: Received report from Mike Kang RN. Patient asleep in bed, responsive to tactile stimuli. Receiving O2 via non-rebreather mask @ 15 L/min, no s/s of respiratory distress noted. Left NGT in place with feeding of Glucerna 1.2 running @ 55 cc/hr, no residuals noted. HoB elevated. Female external catheter in place and attached to low, continuous suction. Right upper arm midline patent and asymptomatic. Bed locked in lowest position with side rails up x 3. All needs attended to. Call light within reach. Will continue to monitor.
[2018-07-08] MEDS: OLANZapine 2.5mg tab NG SCH ×2 (08:48→18:23)
[2018-07-08] MEDS: Ceftaroline 400 MG in NS 55 ML IV SCH ×2 (09:46→21:06)
--- NOTE | 2018-07-08 11:36 | GI Progress Note ---
Assessment/Plan Problems: (1) Severe anemia ICD Codes: D64.9 - Anemia, unspecified SNOMED: 566996181 (2) Protein-calorie malnutrition, severe ICD Codes: E43 - Unspecified severe protein-calorie malnutrition SNOMED: 031368028 (3) Rectal bleed ICD Codes: K62.5 - Hemorrhage of anus and rectum SNOMED: 23702246 (4) Upper GI bleed ICD Codes: K92.2 - Gastrointestinal hemorrhage, unspecified SNOMED: 18477766 (5) Severe malnutrition ICD Codes: E43 - Unspecified severe protein-calorie malnutrition SNOMED: 96167034 (6) Weakness ICD Codes: R53.1 - Weakness SNOMED: 71282209 (7) Dysphasia ICD Codes: R47.02 - Dysphasia SNOMED: 03054999 (8) Dehydration ICD Codes: E86.0 - Dehydration SNOMED: 58285380 (9) Acute encephalopathy ICD Codes: G93.40 - Encephalopathy, unspecified SNOMED: 41556281, 428561566 (10) Sepsis ICD Codes: A41.9 - Sepsis, unspecified organism SNOMED: 91552066 (11) Diabetes mellitus, type II ICD Codes: E11.9 - Type 2 diabetes mellitus without complications SNOMED: 85989615 (12) Colitis ICD Codes: K52.9 - Noninfective gastroenteritis and colitis, unspecified SNOMED: 19552795 Status: unchanged Status Narrative Discussed with Dr. Wallace. Assessment/Plan off airborne isolation Hgb downtrend NELDA next week OB stool positive EGD on hold until respiratory status stabilizes. on ppi stool ob positive>> monitor H&H and transfuse as needed NGTF cardiology recs repeat labs The patient was seen and examined at bedside and all new and available data was reviewed in the patients chart. I agree with the above findings, impression and plan. (Patient seen earlier today. Signature stamp does not reflect patient encounter time.). - Oli Wallace MD Subjective Subjective Limited Objective Last 24 Hour Vital Signs Date Time Temp Pulse Resp B/P (MAP) Pulse Ox O2 Delivery O2 Flow Rate FiO2 07/08/18 08:00 97.8 82 16 137/57 (83) 95 07/08/18 08:00 75 07/08/18 08:00 Non-Rebreather 15.0 07/08/18 04:00 97.9 62 20 127/70 (89) 96 07/08/18 03:29 Non-Rebreather 15.0 07/08/18 03:29 68 07/08/18 00:00 97.7 52 20 144/69 (94) 100 07/07/18 23:25 70 07/07/18 20:00 Non-Rebreather 15.0 07/07/18 20:00 97.9 89 20 135/64 (87) 100 07/07/18 19:01 75 07/07/18 16:00 97.3 91 15 133/64 (87) 100 07/07/18 16:00 82 07/07/18 16:00 Non-Rebreather 15.0 07/07/18 12:00 Non-Rebreather 15.0 07/07/18 12:00 76 07/07/18 12:00 97.5 75 21 139/58 (85) 100 Intake and Output 07/07/18 07/08/18 19:00 07:00 Intake Total 695 ml 760 ml Output Total 50 ml 450 ml Balance 645 ml 310 ml Intake Free Water 100 ml IV Total 255 ml 110 ml Tube Feeding 440 ml 550 ml Output Urine Total 50 ml 450 ml # Voids 2 # Bowel Movements 1 2 Laboratory Tests Test 07/08/18 04:05 White Blood Count 6.6 K/UL (4.8-10.8) Red Blood Count 2.86 M/UL (4.20-5.40) L Hemoglobin 8.3 G/DL (12.0-16.0) L Hematocrit 26.0 % (37.0-47.0) L Mean Corpuscular Volume 91 FL (80-99) Mean Corpuscular Hemoglobin 28.9 PG (27.0-31.0) Mean Corpuscular Hemoglobin Concent 31.8 G/DL (32.0-36.0) L Red Cell Distribution Width 18.9 % (11.6-14.8) H Platelet Count 93 K/UL (150-450) L Mean Platelet Volume 10.6 FL (6.5-10.1) H Neutrophils (%) (Auto) % (45.0-75.0) Lymphocytes (%) (Auto) % (20.0-45.0) Monocytes (%) (Auto) % (1.0-10.0) Eosinophils (%) (Auto) % (0.0-3.0) Basophils (%) (Auto) % (0.0-2.0) Differential Total Cells Counted 100 Neutrophils % (Manual) 92 % (45-75) H Lymphocytes % (Manual) 5 % (20-45) L Monocytes % (Manual) 2 % (1-10) Eosinophils % (Manual) 0 % (0-3) Basophils % (Manual) 0 % (0-2) Band Neutrophils 1 % (0-8) Platelet Estimate Decreased L Platelet Morphology Normal Hypochromasia 1+ Anisocytosis 2+ Sodium Level 148 MMOL/L (136-145) H Potassium Level 5.1 MMOL/L (3.5-5.1) Chloride Level 118 MMOL/L (98-107) H Carbon Dioxide Level 23 MMOL/L (21-32) Anion Gap 7 mmol/L (5-15) Blood Urea Nitrogen 28 mg/dL (7-18) H Creatinine 0.7 MG/DL (0.55-1.30) Estimat Glomerular Filtration Rate mL/min (>60) Glucose Level 166 MG/DL (74-106) H Calcium Level 7.9 MG/DL (8.5-10.1) L Total Creatine Kinase 137 U/L (26-308) Height (Feet): 5 Height (Inches): 5.00 Weight (Pounds): 147 General Appearance: no apparent distress Cardiovascular: normal rate Respiratory/Chest: normal breath sounds, no respiratory distress Abdominal Exam: normal bowel sounds, non tender, soft, GT site - c/d/i Extremities: non-tender Joe Sagastume NP Jul 08, 2018 11:36
--- NOTE | 2018-07-08 11:43 | NUR ---
P.T Note: P.T evaluation completed and treatment initiated. Please refer to P.T evaluation for current functional status. Pt is alert, O x 4 and cooperative. Pt appeared fatigued and exhausted even with conversation. Pt denied c/o pain and was agreeable to participate in P.T evaluation. Pt currently require MIN A X 1 for bed mobility and transfer activities using the FWW. Pt was only able to ambulate with FWW, MIN A not more than 4 steps, due to dizziness , fatigue and feeling exhausted. Pt is limited by generalized weakness, poor activity tolerance, SOB and symptomatic orthostatics resulting to dizziness : BP was 99/66 in sitting then dropped to 66/33 mmhg after standing and gait/ambulation assessment. BP recovered to 110/68 mmhg after pt was positioned to Trendelenberg position. RN notified/aware. Skilled P.T service is warranted to improve strength, endurance /activity tolerance to improve her ADL/functional mobility independence and safety. Recommend SNF for further rehab VS home with P.T depending on progress. DME to include FWW. Garcia for this referral. Addendum: 07/08/18 at 1215 by HÉTCOR RODRIGUEZ PT CORRECTION : THE ABOVE P.T NOTES WAS A WRONG ENTRY!! PLEASE DISREGARD THE ABOVE P.T NOTES. THANK YOU.
--- NOTE | 2018-07-08 12:02 | Pulmonology Progress Note ---
Assessment/Plan Problems: (1) Sepsis (2) Thrombocytopenia (3) ATN (acute tubular necrosis) (4) Pulmonary hypertension (5) Sacral decubitus ulcer, stage III (6) Alzheimer's dementia (7) Protein-calorie malnutrition, severe (8) HTN (hypertension) (9) Pacemaker (10) CAD (coronary artery disease) Assessment/Plan on NRM /u PLT, better today up to 93 failed swallow study Morphine prn d/w wound care nurse, mckeon cultures, still positive BC are still positive from 07/05 and 06/05, now for GN check electrolytes sliding scale check electrolytes daily broad spectrum abx dvt prophylaxis insulin coverage. social service consult might need removal of pacemaker leads, d/W dr Bardales, Cardiology wants to wait until pt hemodynamically better to do an NELDA to find out if the they are infected. Subjective ROS Limited/Unobtainable: No Interval Events: on face mask Allergies: Coded Allergies: No Known Allergies (Unverified , 08/10/13) Objective Last 24 Hour Vital Signs Date Time Temp Pulse Resp B/P (MAP) Pulse Ox O2 Delivery O2 Flow Rate FiO2 07/08/18 08:00 97.8 82 16 137/57 (83) 95 07/08/18 08:00 75 07/08/18 08:00 Non-Rebreather 15.0 07/08/18 04:00 97.9 62 20 127/70 (89) 96 07/08/18 03:29 Non-Rebreather 15.0 07/08/18 03:29 68 07/08/18 00:00 97.7 52 20 144/69 (94) 100 07/07/18 23:25 70 07/07/18 20:00 Non-Rebreather 15.0 07/07/18 20:00 97.9 89 20 135/64 (87) 100 07/07/18 19:01 75 07/07/18 16:00 97.3 91 15 133/64 (87) 100 07/07/18 16:00 82 07/07/18 16:00 Non-Rebreather 15.0 Intake and Output 07/07/18 07/08/18 19:00 07:00 Intake Total 695 ml 760 ml Output Total 50 ml 450 ml Balance 645 ml 310 ml Intake Free Water 100 ml IV Total 255 ml 110 ml Tube Feeding 440 ml 550 ml Output Urine Total 50 ml 450 ml # Voids 2 # Bowel Movements 1 2 Objective General Appearance: cachectic HEENT: normocephalic, somnolent Respiratory/Chest: chest wall non-tender,loud rhonchi Cardiovascular: normal peripheral pulses, normal rate Abdomen: normal bowel sounds, soft, non tender Extremities: no cyanosis Skin: no rash Microbiology Date/Time Source Procedure Growth Status 07/06/18 04:20 Blood Blood Culture - Preliminary Gram Negative Bacillus 1 Resulted 07/06/18 04:00 Blood Blood Culture - Preliminary Gram Negative Bacillus 1 Staphylococcus Aureus Resulted 07/05/18 23:50 Sputum AFB Specimen Processing Tissue - Final Resulted 07/05/18 23:50 Sputum Acid Fast Bacilli Smear - Final Resulted 07/05/18 23:50 Sputum Acid Fast Bacilli Culture Pending Resulted Laboratory Tests 07/08/18 04:05: White Blood Count 6.6, Red Blood Count 2.86L, Hemoglobin 8.3L, Hematocrit 26.0L , Mean Corpuscular Volume 91, Mean Corpuscular Hemoglobin 28.9, Mean Corpuscular Hemoglobin Concent 31.8L, Red Cell Distribution Width 18.9H, Platelet Count 93L, Mean Platelet Volume 10.6H, Neutrophils (%) (Auto) , Lymphocytes (%) (Auto) , Monocytes (%) (Auto) , Eosinophils (%) (Auto) , Basophils (%) (Auto) , Differential Total Cells Counted 100, Neutrophils % ( Manual) 92H, Lymphocytes % (Manual) 5L, Monocytes % (Manual) 2, Eosinophils % ( Manual) 0, Basophils % (Manual) 0, Band Neutrophils 1, Platelet Estimate DecreasedL, Platelet Morphology Normal, Hypochromasia 1+, Anisocytosis 2+, Sodium Level 148H, Potassium Level 5.1, Chloride Level 118H, Carbon Dioxide Level 23, Anion Gap 7, Blood Urea Nitrogen 28H, Creatinine 0.7, Estimat Glomerular Filtration Rate , Glucose Level 166H, Calcium Level 7.9L, Total Creatine Kinase 137 Current Medications Medications (Trade) Dose Ordered Sig/Yi Route PRN Reason Start Time Stop Time Status Last Admin Dose Admin Acetaminophen (Tylenol) 650 mg Q4H PRN NG Mild Pain/Temp > 100.5 07/05/18 16:30 07/29/18 16:29 07/06/18 18:46 Ceftaroline Fosamil 400 mg/ Sodium Chloride 55 ml @ 55 mls/hr Q12HR IV 07/05/18 21:00 07/10/18 08:59 07/08/18 09:46 Clonidine HCl (Catapres Tab) 0.1 mg Q8H PRN NG SBP>160mmHg 07/05/18 16:30 07/25/18 16:29 Daptomycin 600 mg/ Sodium Chloride 55 ml @ 100 mls/hr Q24H IV 07/06/18 18:00 07/13/18 17:59 07/07/18 18:21 Dextrose (Dextrose 50%) 25 ml Q30M PRN IV Hypoglycemia 07/05/18 16:45 07/24/18 13:30 07/07/18 13:21 Dextrose (Dextrose 50%) 50 ml Q30M PRN IV hypoglycemia 07/05/18 16:45 07/24/18 13:44 07/05/18 19:28 Insulin Aspart (NovoLOG) EVERY 6 HOURS SUBQ 07/05/18 18:00 07/24/18 16:29 07/08/18 00:28 Lansoprazole (Prevacid) 30 mg DAILY NG 07/06/18 09:00 08/02/18 08:59 07/08/18 08:48 Meropenem 1 gm/ Sodium Chloride 55 ml @ 110 mls/hr Q12H IVPB 07/07/18 18:00 07/12/18 17:59 07/08/18 05:57 Olanzapine (ZyPREXA) 2.5 mg BID NG 07/05/18 18:00 07/25/18 10:59 07/08/18 08:48 Ondansetron HCl (Zofran) 4 mg Q6H PRN IVP Nausea & Vomiting 07/05/18 16:30 07/25/18 16:29 Rod Mancera MD Jul 08, 2018 12:02
--- NOTE | 2018-07-08 12:55 | Surgery Progress Note ---
Surgery Progress Note Subjective Additional Comments EGD planned for tomorrow. labs noted. exam unchanged. Objective Last 24 Hour Vital Signs Date Time Temp Pulse Resp B/P (MAP) Pulse Ox O2 Delivery O2 Flow Rate FiO2 07/08/18 08:00 97.8 82 16 137/57 (83) 95 07/08/18 08:00 75 07/08/18 08:00 Non-Rebreather 15.0 07/08/18 04:00 97.9 62 20 127/70 (89) 96 07/08/18 03:29 Non-Rebreather 15.0 07/08/18 03:29 68 07/08/18 00:00 97.7 52 20 144/69 (94) 100 07/07/18 23:25 70 07/07/18 20:00 Non-Rebreather 15.0 07/07/18 20:00 97.9 89 20 135/64 (87) 100 07/07/18 19:01 75 07/07/18 16:00 97.3 91 15 133/64 (87) 100 07/07/18 16:00 82 07/07/18 16:00 Non-Rebreather 15.0 I&O Intake and Output 07/07/18 07/08/18 19:00 07:00 Intake Total 695 ml 760 ml Output Total 50 ml 450 ml Balance 645 ml 310 ml Intake Free Water 100 ml IV Total 255 ml 110 ml Tube Feeding 440 ml 550 ml Output Urine Total 50 ml 450 ml # Voids 2 # Bowel Movements 1 2 Dressing: other Wound: other Drains: other Cardiovascular: RSR Respiratory: decreased breath sounds Abdomen: soft, present bowel sounds, non-distended Extremities: edema, tenderness, other Laboratory Tests Test 07/08/18 04:05 White Blood Count 6.6 K/UL (4.8-10.8) Red Blood Count 2.86 M/UL (4.20-5.40) L Hemoglobin 8.3 G/DL (12.0-16.0) L Hematocrit 26.0 % (37.0-47.0) L Mean Corpuscular Volume 91 FL (80-99) Mean Corpuscular Hemoglobin 28.9 PG (27.0-31.0) Mean Corpuscular Hemoglobin Concent 31.8 G/DL (32.0-36.0) L Red Cell Distribution Width 18.9 % (11.6-14.8) H Platelet Count 93 K/UL (150-450) L Mean Platelet Volume 10.6 FL (6.5-10.1) H Neutrophils (%) (Auto) % (45.0-75.0) Lymphocytes (%) (Auto) % (20.0-45.0) Monocytes (%) (Auto) % (1.0-10.0) Eosinophils (%) (Auto) % (0.0-3.0) Basophils (%) (Auto) % (0.0-2.0) Differential Total Cells Counted 100 Neutrophils % (Manual) 92 % (45-75) H Lymphocytes % (Manual) 5 % (20-45) L Monocytes % (Manual) 2 % (1-10) Eosinophils % (Manual) 0 % (0-3) Basophils % (Manual) 0 % (0-2) Band Neutrophils 1 % (0-8) Platelet Estimate Decreased L Platelet Morphology Normal Hypochromasia 1+ Anisocytosis 2+ Sodium Level 148 MMOL/L (136-145) H Potassium Level 5.1 MMOL/L (3.5-5.1) Chloride Level 118 MMOL/L (98-107) H Carbon Dioxide Level 23 MMOL/L (21-32) Anion Gap 7 mmol/L (5-15) Blood Urea Nitrogen 28 mg/dL (7-18) H Creatinine 0.7 MG/DL (0.55-1.30) Estimat Glomerular Filtration Rate mL/min (>60) Glucose Level 166 MG/DL (74-106) H Calcium Level 7.9 MG/DL (8.5-10.1) L Total Creatine Kinase 137 U/L (26-308) Plan Problems: (1) Sepsis Assessment & Plan: Leukocytosis resolved LFT's elevated w/ t bili / d bili - improved AM labs ordered hydrate US Impression: Limited exam, as described. Note inability to visualize the spleen Negative for gallstones or dilated bile ducts Questionable bilateral renal parapelvic cysts Small to moderate right pleural effusion no acute surgical intervention planned. NELDA for septic emboli consider removing pacemaker as harboring sepsis source if NELDA demonstrates lesions tube feeds as tolerated will follow with recs. (2) Sacral decubitus ulcer, stage III Assessment & Plan: DTPI sacrum.Maroon- indurated discoloration with opening at sacral coccygeal area(L)3.8cm x (W)1.4cm with entire wound measuring (L)10cmx(W) 12cm.Small amt malodorous brown exudate. Stable dry eschar R heel with dry peeling skin periwound (L)2cm x (W)3.5cm. Periwound is also red and boggy. Small dry eschar noted to lateral R 5th metatarsal (L)1.4cm x (W)0.3cm. L heel is boggy but colour is dusky . Resolving skin tear lateral R tibia. Wound bed is clean and dry. Tx. Plan: Cleanse Sacral wound with Saline.Apply Therahoney to opening at sacrococcygeal area.Cavilon skin barrier to DTPI. Cover with Optifoam drsg .Change Daily and prn. Apply Betadine to R heel and Lateral R 5th metatarsal.Cover with Abd pad .Wrap with kerlix daily and prn. Apply Cavilon Skin Barrier to L heel.Cover with Optifoam drsg .Change every 7 days and prn. Reposition at least every 2hours or as tolerated. Off-load heels with pillow. (3) Rectal bleed (4) Protein-calorie malnutrition, severe (5) Dehydration (6) IV infiltration Assessment & Plan: left hand IV infiltration prior and now with edema/ irritation noted + ecchymosis on hand and arm keep hand and arm elevated medication reaction and will need to be monitored for worsening poor tissue / protoplasm CT - Diffuse edema of the subcutaneous and deep fat and likely upper arm and forearm musculature. Given stated clinical history, possibly secondary to cellulitis and myositis, but could also be hemodynamic in origin. No discrete rim-enhancing collection to suggest abscess No CT evidence of acute osteomyelitis. Note, however, somewhat limited sensitivity of CT for such. Consider bone scan for further evaluation if there is high clinical suspicion Sher Younger Jul 08, 2018 12:55
--- NOTE | 2018-07-08 14:39 | Infectious Diseases Prog Note ---
Assessment/Plan Assessment/Plan 82 yo female with PMHx DM, CAD, Alzheimer dementia and Hip fracture who presents with dehydration and weakness. 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 Given normal appearing chest radiograph on 06/24/2018, these are overwhelmingly likely infectious/inflammatory in nature. Most likely represent septic pulmonary emboli. The possibility of mycobacterial infection should also be included, deemed less likely given absence of adenopathy but still possible. Differential considerations also include fungal infections, noninfectious inflammatory processes. Other noncavitary nodules are also demonstrated, with the same differential. Large right and [id number] left pleural effusions. Compressive atelectasis of the majority of the right lower lobe. Infiltrates seen in the right upper lobe. Bilateral pacemaker. Evidence of central venoocclusive disease. Wedge-shaped area of low-attenuation in the upper pole of the spleen, suspicious for infarct. -2d Echo (limited study due to contractures): no vegetations seen -06/27 Bcx 08/19MRSA; 06/28 Bcx 06/21 MRSA; 06/29 08/19 MRSA; 07/01 Bcx 08/19 MRSA; Bcx 08/19 GPC clusters 06/25/18 Blood Cx 08/19 MRSA 06/24/18 Wound Cx MRSA, ESBL E.coli (S ZOsyn), K. pna (S Zosyn) Neg: Histo, Blasto ab Gram neg bacteremia- ?source- UTI vs Mid mary infection vs from lungs -07/06 BCx 08/19 GNR, 06/21 S.aureus r/o Probable PNA -07/06 CXR: Increased and now large right-sided pleural effusion, compared to prior study of 06/27/2018. Note that a large pleural effusion is evident on recent CT scan of 5 days earlier -sp cx ESBL K.pna and ESBL E>coli (both S Meropenem, Zosyn) L arm cellulitis from IV infiltration -CT L arm: Diffuse edema of the subcutaneous and deep fat and likely upper arm and forearm musculature. Given stated clinical history, possibly secondary to cellulitis and myositis, but could also be hemodynamic in origin. No discrete rim-enhancing collection to suggest abscess. No CT evidence of acute osteomyelitis. Leukocytosis, SP Low grade fever; SP Positive UA CXR neg Thrombocytopenia- HIT vs medication related Pressure ulcers Not infected Right hip fracture with hemiarthroplasty Feb 2018 DM HTN Sick sinus syndrome sp Pacemaker HLD CAD - SP MA and CABG Aortic stenosis. Pulmonary hypertension. Alzheimer dementia. PLAN - Continue Daptomycin #9 (abx d #14) and Ceftaroline #7 given persistent MRSA Bacteremia -Cont Meropenem #2 for GNR bacteremia and ESBL in sputum - repeat 2 sets of Bcx daily-q48hrs until clearance of bacteremia -06/30 SP Vancomycin #6 -06/30 SP Zosyn #4 -06/27 SP Cefepime #3 -Will need NELDA and removal of PPM for bacteremia clearance/source control if consistent with goals of care -plan for NELDA when more stable, probably next week -consider thoracentesis for Large R pleural effusion- have to consider also pleural effusion as source of continued bacteremia -f/u final AFB cx x3 - f/u repeat cultures - Monitor CBC and temps - wound care - Nutritional support -f/u cocci -Sx/ fu -L arm elevation Thank you for this consult. We will continue to follow the patient during this hospitalization. Subjective Allergies: Coded Allergies: No Known Allergies (Unverified , 08/10/13) Subjective ; afebrile still bacteremic on NRB plan for NELDA next week Objective Vital Signs Last 24 Hour Vital Signs Date Time Temp Pulse Resp B/P (MAP) Pulse Ox O2 Delivery O2 Flow Rate FiO2 07/08/18 12:00 92 07/08/18 12:00 98.7 94 16 137/72 (93) 98 07/08/18 12:00 Non-Rebreather 15.0 07/08/18 08:00 97.8 82 16 137/57 (83) 95 07/08/18 08:00 75 07/08/18 08:00 Non-Rebreather 15.0 07/08/18 04:00 97.9 62 20 127/70 (89) 96 07/08/18 03:29 Non-Rebreather 15.0 07/08/18 03:29 68 07/08/18 00:00 97.7 52 20 144/69 (94) 100 07/07/18 23:25 70 07/07/18 20:00 Non-Rebreather 15.0 07/07/18 20:00 97.9 89 20 135/64 (87) 100 07/07/18 19:01 75 07/07/18 16:00 97.3 91 15 133/64 (87) 100 07/07/18 16:00 82 07/07/18 16:00 Non-Rebreather 15.0 Height (Feet): 5 Height (Inches): 5.00 Weight (Pounds): 147 Objective Gen: Moaning, Awake but no following HEENT: NCAT, MMM, EOMI, PERRL LUNGS: CTAB, No W CARDS: RRR, S1, S2, No M/R/G, ABD: Soft, NT, ND, + BS Ext: Poor circulation to Ext (cool to touch) , Pulses 2+ B/L (DP, Rad): SKIN: Dry, No rashes, Large sacral ulcer. Mild odor no surrounding cellulitis, foot with eschar Microbiology Date/Time Source Procedure Growth Status 07/07/18 03:50 Blood Blood Culture - Preliminary Resulted 07/07/18 03:45 Blood Blood Culture - Preliminary Resulted 07/06/18 04:20 Blood Blood Culture - Preliminary Gram Negative Bacillus 1 Resulted 07/06/18 04:00 Blood Blood Culture - Preliminary Gram Negative Bacillus 1 Staphylococcus Aureus Resulted 07/05/18 23:50 Sputum AFB Specimen Processing Tissue - Final Resulted 07/05/18 23:50 Sputum Acid Fast Bacilli Smear - Final Resulted 07/05/18 23:50 Sputum Acid Fast Bacilli Culture Pending Resulted Laboratory Tests Test 07/08/18 04:05 White Blood Count 6.6 K/UL (4.8-10.8) Red Blood Count 2.86 M/UL (4.20-5.40) L Hemoglobin 8.3 G/DL (12.0-16.0) L Hematocrit 26.0 % (37.0-47.0) L Mean Corpuscular Volume 91 FL (80-99) Mean Corpuscular Hemoglobin 28.9 PG (27.0-31.0) Mean Corpuscular Hemoglobin Concent 31.8 G/DL (32.0-36.0) L Red Cell Distribution Width 18.9 % (11.6-14.8) H Platelet Count 93 K/UL (150-450) L Mean Platelet Volume 10.6 FL (6.5-10.1) H Neutrophils (%) (Auto) % (45.0-75.0) Lymphocytes (%) (Auto) % (20.0-45.0) Monocytes (%) (Auto) % (1.0-10.0) Eosinophils (%) (Auto) % (0.0-3.0) Basophils (%) (Auto) % (0.0-2.0) Differential Total Cells Counted 100 Neutrophils % (Manual) 92 % (45-75) H Lymphocytes % (Manual) 5 % (20-45) L Monocytes % (Manual) 2 % (1-10) Eosinophils % (Manual) 0 % (0-3) Basophils % (Manual) 0 % (0-2) Band Neutrophils 1 % (0-8) Platelet Estimate Decreased L Platelet Morphology Normal Hypochromasia 1+ Anisocytosis 2+ Sodium Level 148 MMOL/L (136-145) H Potassium Level 5.1 MMOL/L (3.5-5.1) Chloride Level 118 MMOL/L (98-107) H Carbon Dioxide Level 23 MMOL/L (21-32) Anion Gap 7 mmol/L (5-15) Blood Urea Nitrogen 28 mg/dL (7-18) H Creatinine 0.7 MG/DL (0.55-1.30) Estimat Glomerular Filtration Rate mL/min (>60) Glucose Level 166 MG/DL (74-106) H Calcium Level 7.9 MG/DL (8.5-10.1) L Total Creatine Kinase 137 U/L (26-308) Current Medications Medications (Trade) Dose Ordered Sig/Yi Route PRN Reason Start Time Stop Time Status Last Admin Dose Admin Acetaminophen (Tylenol) 650 mg Q4H PRN NG Mild Pain/Temp > 100.5 07/05/18 16:30 07/29/18 16:29 07/06/18 18:46 Ceftaroline Fosamil 400 mg/ Sodium Chloride 55 ml @ 55 mls/hr Q12HR IV 07/05/18 21:00 07/10/18 08:59 07/08/18 09:46 Clonidine HCl (Catapres Tab) 0.1 mg Q8H PRN NG SBP>160mmHg 07/05/18 16:30 07/25/18 16:29 Daptomycin 600 mg/ Sodium Chloride 55 ml @ 100 mls/hr Q24H IV 07/06/18 18:00 07/13/18 17:59 07/07/18 18:21 Dextrose (Dextrose 50%) 25 ml Q30M PRN IV Hypoglycemia 07/05/18 16:45 07/24/18 13:30 07/07/18 13:21 Dextrose (Dextrose 50%) 50 ml Q30M PRN IV hypoglycemia 07/05/18 16:45 07/24/18 13:44 07/05/18 19:28 Insulin Aspart (NovoLOG) EVERY 6 HOURS SUBQ 07/05/18 18:00 07/24/18 16:29 07/08/18 00:28 Lansoprazole (Prevacid) 30 mg DAILY NG 07/06/18 09:00 08/02/18 08:59 07/08/18 08:48 Meropenem 1 gm/ Sodium Chloride 55 ml @ 110 mls/hr Q12H IVPB 07/07/18 18:00 07/12/18 17:59 07/08/18 05:57 Olanzapine (ZyPREXA) 2.5 mg BID NG 07/05/18 18:00 07/25/18 10:59 07/08/18 08:48 Ondansetron HCl (Zofran) 4 mg Q6H PRN IVP Nausea & Vomiting 07/05/18 16:30 07/25/18 16:29 Roseann Bardales M.D. Jul 08, 2018 14:39
[2018-07-08] MEDS: DAPTOmycin 600 MG in NS 55 ML IV SCH (18:23)
--- NOTE | 2018-07-08 19:09 | NUR ---
HAND-OFF: Report given to Mike Kang RN.
--- NOTE | 2018-07-08 19:10 | NUR ---
NURSE NOTES: Received bedside report from SOILA Mcgee.Patient stable,SR on surveillance system monitor,no s/s of pain,no respiratory distress noted,tolerated well 2 L/min via N/A Sat O2 96-100%,NGT on L nares running with Glucerna 1.2 @55 ml/hr,BS active in all quadrants,pt on P 200 mattress d/t pressure ulcers,IV on a J CARLOS midline,last time dressing changed on 07/08/18,bed secured call light within a reach,will continue to monitor and follow POC.
--- NOTE | 2018-07-08 19:34 | Internal Med Progress Note ---
Subjective Date of Service: Jul 08, 2018 Physician Name Aquilino Matthews Attending Physician Carlos Alberto Berkowitz MD Current Medications Medications (Trade) Dose Ordered Sig/Yi Route PRN Reason Start Time Stop Time Status Last Admin Dose Admin Acetaminophen (Tylenol) 650 mg Q4H PRN NG Mild Pain/Temp > 100.5 07/05/18 16:30 07/29/18 16:29 07/06/18 18:46 Ceftaroline Fosamil 400 mg/ Sodium Chloride 55 ml @ 55 mls/hr Q12HR IV 07/05/18 21:00 07/10/18 08:59 07/08/18 09:46 Clonidine HCl (Catapres Tab) 0.1 mg Q8H PRN NG SBP>160mmHg 07/05/18 16:30 07/25/18 16:29 Daptomycin 600 mg/ Sodium Chloride 55 ml @ 100 mls/hr Q24H IV 07/06/18 18:00 07/13/18 17:59 07/08/18 18:23 Dextrose (Dextrose 50%) 25 ml Q30M PRN IV Hypoglycemia 07/05/18 16:45 07/24/18 13:30 07/07/18 13:21 Dextrose (Dextrose 50%) 50 ml Q30M PRN IV hypoglycemia 07/05/18 16:45 07/24/18 13:44 07/05/18 19:28 Insulin Aspart (NovoLOG) EVERY 6 HOURS SUBQ 07/05/18 18:00 07/24/18 16:29 07/08/18 18:23 Lansoprazole (Prevacid) 30 mg DAILY NG 07/06/18 09:00 08/02/18 08:59 07/08/18 08:48 Meropenem 1 gm/ Sodium Chloride 55 ml @ 110 mls/hr Q12H IVPB 07/07/18 18:00 07/12/18 17:59 07/08/18 18:25 Olanzapine (ZyPREXA) 2.5 mg BID NG 07/05/18 18:00 07/25/18 10:59 07/08/18 18:23 Ondansetron HCl (Zofran) 4 mg Q6H PRN IVP Nausea & Vomiting 07/05/18 16:30 07/25/18 16:29 Allergies: Coded Allergies: No Known Allergies (Unverified , 08/10/13) ROS Limited/Unobtainable: Yes Subjective 82 YO F admitted with dehydration and hypoxia. Now sepsis. Cover for Int Med- Dr Berkowitz. Continues on non rebreather mask. MATTI Objective Last Vital Signs Date Time Temp Pulse Resp B/P (MAP) Pulse Ox O2 Delivery O2 Flow Rate FiO2 07/08/18 16:00 Non-Rebreather 15.0 07/08/18 16:00 98.9 91 19 113/70 (84) 100 07/06/18 09:19 100 Laboratory Tests Test 07/08/18 04:05 07/08/18 15:58 White Blood Count 6.6 K/UL (4.8-10.8) Red Blood Count 2.86 M/UL (4.20-5.40) L Hemoglobin 8.3 G/DL (12.0-16.0) L Hematocrit 26.0 % (37.0-47.0) L Mean Corpuscular Volume 91 FL (80-99) Mean Corpuscular Hemoglobin 28.9 PG (27.0-31.0) Mean Corpuscular Hemoglobin Concent 31.8 G/DL (32.0-36.0) L Red Cell Distribution Width 18.9 % (11.6-14.8) H Platelet Count 93 K/UL (150-450) L Mean Platelet Volume 10.6 FL (6.5-10.1) H Neutrophils (%) (Auto) % (45.0-75.0) Lymphocytes (%) (Auto) % (20.0-45.0) Monocytes (%) (Auto) % (1.0-10.0) Eosinophils (%) (Auto) % (0.0-3.0) Basophils (%) (Auto) % (0.0-2.0) Differential Total Cells Counted 100 Neutrophils % (Manual) 92 % (45-75) H Lymphocytes % (Manual) 5 % (20-45) L Monocytes % (Manual) 2 % (1-10) Eosinophils % (Manual) 0 % (0-3) Basophils % (Manual) 0 % (0-2) Band Neutrophils 1 % (0-8) Platelet Estimate Decreased L Platelet Morphology Normal Hypochromasia 1+ Anisocytosis 2+ Sodium Level 148 MMOL/L (136-145) H Potassium Level 5.1 MMOL/L (3.5-5.1) Chloride Level 118 MMOL/L (98-107) H Carbon Dioxide Level 23 MMOL/L (21-32) Anion Gap 7 mmol/L (5-15) Blood Urea Nitrogen 28 mg/dL (7-18) H Creatinine 0.7 MG/DL (0.55-1.30) Estimat Glomerular Filtration Rate mL/min (>60) Glucose Level 166 MG/DL (74-106) H Calcium Level 7.9 MG/DL (8.5-10.1) L Total Creatine Kinase 137 U/L (26-308) Arterial Blood pH 7.467 (7.350-7.450) Arterial Blood Partial Pressure CO2 32.5 mmHg (35.0-45.0) L Arterial Blood Partial Pressure O2 413.6 mmHg (75.0-100.0) H Arterial Blood HCO3 23.0 mmol/L (22.0-26.0) Arterial Blood Oxygen Saturation 99.0 % (95-100) Arterial Blood Base Excess -0.4 (-2-2) Feroz Test Positive Microbiology Date/Time Source Procedure Growth Status 07/07/18 03:50 Blood Blood Culture - Preliminary Resulted 07/07/18 03:45 Blood Blood Culture - Preliminary Resulted 07/06/18 04:20 Blood Blood Culture - Preliminary Gram Negative Bacillus 1 Resulted 07/06/18 04:00 Blood Blood Culture - Preliminary Gram Negative Bacillus 1 Staphylococcus Aureus Resulted 07/05/18 23:50 Sputum AFB Specimen Processing Tissue - Final Resulted 07/05/18 23:50 Sputum Acid Fast Bacilli Smear - Final Resulted 07/05/18 23:50 Sputum Acid Fast Bacilli Culture Pending Resulted Intake and Output 07/07/18 07/08/18 19:00 07:00 Intake Total 695 ml 815 ml Output Total 50 ml 450 ml Balance 645 ml 365 ml Intake Free Water 100 ml IV Total 255 ml 110 ml Tube Feeding 440 ml 605 ml Output Urine Total 50 ml 450 ml # Voids 2 # Bowel Movements 1 2 Objective Objective General: No acute distress, awake and less responsive, Sleepy, cachectic. HEENT: NCAT, sclera anicteric, PERRL, NG tube. Neck: Supple, no significant jugular venous distention, Lungs: Non-rebreather mask; Poor inspiratory effort, decreased air in the bases , Bilateral Wheeze and Rales. Heart: Regular rate and rhythm, normal S1/S2, no murmur. Abdomen: soft, nontender, nondistended. Normoactive bowel sounds. / Rectal: Refused and deferred. Extremities: No Cyanosis , No clubbing, Left UE edema. Lateral lower extremity / feet dressing intact. Neuro: A&O x 1, Able to move all extremities Skin: warm, no rashes or lesions, ecchymosis in bilateral upper extremity noted. Assessment/Plan Assessment/Plan Assessment/Plan Assessment/Plan 1. Sepsis / METHACILLIN RESISTANT STAPHYLOCOCCUS AUREUS bacteremia, lactic acidosis. 2. Failure to thrive with severe protein calorie malnutrition. 3. Coronary artery disease. 4. Diabetes, type 2. 5. Hypertension. 6. Sick sinus syndrome. 7. Hypercholesterolemia. 8. Aortic stenosis. 9. Pulmonary hypertension. 10. Alzheimer dementia. 11. Acute tubular necrosis/acute kidney injury most likely secondary to dehydration and sepsis. 12. Sacral decubitus ulcer, stage III 13. Severe dehydration 14. Hypokalemia. 15. Abnormal liver function test 16. Anemia/thrombocytopenia 17. Bilateral pneumonia ?septic emboli? TREATMENT: 1. Patient on broad spectrum antibiotics with meropenem and ceftaroline. Will require transesophageal echocardiogram to R/O endocarditis-see ID note 2. Coronary artery disease. The patient is status post coronary artery bypass graft in 2017. 3. Diabetes, type 2. The patient has been started on NovoLog sliding scale. 4. Hypertension. The patient is to continue on atenolol and losartan as above. 5. Sick sinus syndrome. The patient is status post pacemaker implantation. 6. Hypercholesterolemia. Continue simvastatin as above. 7. Aortic stenosis. 8. Pulmonary hypertension. 9. Alzheimer dementia. 10. Anemia/thrombocytopenia-S/P 1 unit PRBC on 06/28/18. Heme/Onc consult. Hold heparin 11. Septic pulmonary emboli-await NELDA on Thursday07/06/18-see cardiology note- needs NG removed for NELDA-Discussed with Dr Oliver Restart tube feeding at rate of 45 cc/hr. CODE STATUS is full code as per [facility] DVT prophylaxis: D/C Heparin subcu due to thrombocytopenia Aquilino Matthews MD Jul 08, 2018 19:33
--- NOTE | 2018-07-08 21:24 | Cardiology Progress Note ---
Assessment/Plan Assessment/Plan continue to monitor, NELDA early next week, will need NG tube out for NELDA will d/ w GI Subjective Subjective The patient is confused and screaming, but occasionally is responding to questions, she looks slightly better Objective Last 24 Hour Vital Signs Date Time Temp Pulse Resp B/P (MAP) Pulse Ox O2 Delivery O2 Flow Rate FiO2 07/08/18 20:00 Nasal Cannula 2.0 07/08/18 20:00 98.4 99 24 115/64 (81) 98 07/08/18 16:00 Non-Rebreather 15.0 07/08/18 16:00 98.9 91 19 113/70 (84) 100 07/08/18 16:00 106 07/08/18 12:00 92 07/08/18 12:00 98.7 94 16 137/72 (93) 98 07/08/18 12:00 Non-Rebreather 15.0 07/08/18 08:00 97.8 82 16 137/57 (83) 95 07/08/18 08:00 75 07/08/18 08:00 Non-Rebreather 15.0 07/08/18 04:00 97.9 62 20 127/70 (89) 96 07/08/18 03:29 Non-Rebreather 15.0 07/08/18 03:29 68 07/08/18 00:00 97.7 52 20 144/69 (94) 100 07/07/18 23:25 70 General Appearance: other - severely ill appearing EENT: PERRL/EOMI, other - mucosae dry Neck: no JVD Rhythm: NSR Cardiovascular: normal rate Respiratory/Chest: rhonchi - bilaterally Abdomen: distended Extremities: other - both arms erythema, but darker Neurologic: marketing and communications officer II-XII grossly normal Intake and Output 07/07/18 07/08/18 19:00 07:00 Intake Total 695 ml 815 ml Output Total 50 ml 450 ml Balance 645 ml 365 ml Intake Free Water 100 ml IV Total 255 ml 110 ml Tube Feeding 440 ml 605 ml Output Urine Total 50 ml 450 ml # Voids 2 # Bowel Movements 1 2 Laboratory Tests Test 07/08/18 04:05 07/08/18 15:58 White Blood Count 6.6 K/UL (4.8-10.8) Red Blood Count 2.86 M/UL (4.20-5.40) L Hemoglobin 8.3 G/DL (12.0-16.0) L Hematocrit 26.0 % (37.0-47.0) L Mean Corpuscular Volume 91 FL (80-99) Mean Corpuscular Hemoglobin 28.9 PG (27.0-31.0) Mean Corpuscular Hemoglobin Concent 31.8 G/DL (32.0-36.0) L Red Cell Distribution Width 18.9 % (11.6-14.8) H Platelet Count 93 K/UL (150-450) L Mean Platelet Volume 10.6 FL (6.5-10.1) H Neutrophils (%) (Auto) % (45.0-75.0) Lymphocytes (%) (Auto) % (20.0-45.0) Monocytes (%) (Auto) % (1.0-10.0) Eosinophils (%) (Auto) % (0.0-3.0) Basophils (%) (Auto) % (0.0-2.0) Differential Total Cells Counted 100 Neutrophils % (Manual) 92 % (45-75) H Lymphocytes % (Manual) 5 % (20-45) L Monocytes % (Manual) 2 % (1-10) Eosinophils % (Manual) 0 % (0-3) Basophils % (Manual) 0 % (0-2) Band Neutrophils 1 % (0-8) Platelet Estimate Decreased L Platelet Morphology Normal Hypochromasia 1+ Anisocytosis 2+ Sodium Level 148 MMOL/L (136-145) H Potassium Level 5.1 MMOL/L (3.5-5.1) Chloride Level 118 MMOL/L (98-107) H Carbon Dioxide Level 23 MMOL/L (21-32) Anion Gap 7 mmol/L (5-15) Blood Urea Nitrogen 28 mg/dL (7-18) H Creatinine 0.7 MG/DL (0.55-1.30) Estimat Glomerular Filtration Rate mL/min (>60) Glucose Level 166 MG/DL (74-106) H Calcium Level 7.9 MG/DL (8.5-10.1) L Total Creatine Kinase 137 U/L (26-308) Arterial Blood pH 7.467 (7.350-7.450) Arterial Blood Partial Pressure CO2 32.5 mmHg (35.0-45.0) L Arterial Blood Partial Pressure O2 413.6 mmHg (75.0-100.0) H Arterial Blood HCO3 23.0 mmol/L (22.0-26.0) Arterial Blood Oxygen Saturation 99.0 % (95-100) Arterial Blood Base Excess -0.4 (-2-2) Feroz Test Positive Microbiology Date/Time Source Procedure Growth Status 07/07/18 03:50 Blood Blood Culture - Preliminary Resulted 07/07/18 03:45 Blood Blood Culture - Preliminary Resulted 07/06/18 04:20 Blood Blood Culture - Preliminary Gram Negative Bacillus 1 Resulted 07/06/18 04:00 Blood Blood Culture - Preliminary Gram Negative Bacillus 1 Staphylococcus Aureus Resulted 07/05/18 23:50 Sputum AFB Specimen Processing Tissue - Final Resulted 07/05/18 23:50 Sputum Acid Fast Bacilli Smear - Final Resulted 07/05/18 23:50 Sputum Acid Fast Bacilli Culture Pending Resulted Karol Oliver MD Jul 08, 2018 21:24
--- NOTE | 2018-07-08 22:10 | NUR ---
NURSE NOTES: Transferred patient to Tele 208-2,no s/s of respiratory distress or pain noted,tolerated portable oxygen well with 2 L/min,belongings list signed,report given to SOILA Stapleton.
--- NOTE | 2018-07-08 22:15 | NUR ---
NURSE NOTES: Received pt from SDU via hospital bed. In no acute distress. NG tube intact and patent. CHRISTIAN midline intact and patent. Bed in lowest position, HOB elevated, call light within reach. Will continue plan of care.
[2018-07-09] VITALS: BP 147/64
[2018-07-09 04:00] VITALS: BP 155/60
[2018-07-09] MEDS: Meropenem 1 GM in NS 55 ML IVPB SCH ×2 (06:27→17:31)
[2018-07-09] MEDS: NovoLOG Insulin Flexpen SUBQ SCH ×4 (07:17→17:35)
--- NOTE | 2018-07-09 07:30 | NUR ---
NURSE NOTES: Received report from Pieter CM. Pt is asleep in bed, awakens to name/voice, does not respond verbally when communicating with pt, however has no signs/symptoms of pain or discomfort at this time. Pt is on 2L of oxygen via nasal cannula. On NG feeding Glucerna 1.2 infusing at 55mL/hour, tolerating well with no episodes of vomiting or residual. IV access right midline double-lumen, patent/intact, dressing changed 07/08/18. Skin has dressings on sacral, bilateral heels, and left lower arm, currently dry/intact, will reassess and change during my shift as needed/ordered. Pt is on P200 mattress. External catheter in place, draining clear/dark yellow urine. Bed is placed in 30degree/position, three side rails up, brakes engaged, alarm on, call light within easy reach. Will continue to monitor pt and follow plan of care per MD orders and protocol.
[2018-07-09 07:45] LABS: HEMATOCRIT 27.1 % (37.0-47.0); HEMOGLOBIN 8.6 G/DL (12.0-16.0); MEAN CORPUSCULAR VOLUME 92 FL (80-99); PLATELET COUNT 123 K/UL (150-450); RED BLOOD COUNT 2.95 M/UL (4.20-5.40); RED CELL DISTRIBUTION WIDTH 18.8 % (11.6-14.8); WHITE BLOOD COUNT 6.2 K/UL (4.8-10.8)
--- NOTE | 2018-07-09 07:47 | NUR ---
HAND-OFF: Report given to SOILA Mccarty.
[2018-07-09 08:00] VITALS: BP 134/73
[2018-07-09 08:17] LABS: ANION GAP 8 mmol/L (5-15); BLOOD UREA NITROGEN 29 mg/dL (7-18); CALCIUM 8.5 MG/DL (8.5-10.1); CARBON DIOXIDE 24 MMOL/L (21-32); CHLORIDE 117 MMOL/L (98-107); CREATININE 0.8 MG/DL (0.55-1.30); POTASSIUM 4.8 MMOL/L (3.5-5.1); SODIUM 149 MMOL/L (136-145)
[2018-07-09] MEDS: Ceftaroline 400 MG in NS 55 ML IV SCH ×2 (09:00→21:39)
--- NOTE | 2018-07-09 09:37 | NUR ---
RADIOLOGY DEPT CHEST X-RAY DONE.-P.DYE
--- NOTE | 2018-07-09 09:55 | GI Progress Note ---
Assessment/Plan Problems: (1) Severe anemia ICD Codes: D64.9 - Anemia, unspecified SNOMED: 880756639 (2) Protein-calorie malnutrition, severe ICD Codes: E43 - Unspecified severe protein-calorie malnutrition SNOMED: 868111433 (3) Rectal bleed ICD Codes: K62.5 - Hemorrhage of anus and rectum SNOMED: 99292123 (4) Upper GI bleed ICD Codes: K92.2 - Gastrointestinal hemorrhage, unspecified SNOMED: 64297104 (5) Severe malnutrition ICD Codes: E43 - Unspecified severe protein-calorie malnutrition SNOMED: 84660251 (6) Weakness ICD Codes: R53.1 - Weakness SNOMED: 43487677 (7) Dysphasia ICD Codes: R47.02 - Dysphasia SNOMED: 55007503 (8) Dehydration ICD Codes: E86.0 - Dehydration SNOMED: 29617093 (9) Acute encephalopathy ICD Codes: G93.40 - Encephalopathy, unspecified SNOMED: 80755125, 223602363 (10) Sepsis ICD Codes: A41.9 - Sepsis, unspecified organism SNOMED: 09456167 (11) Diabetes mellitus, type II ICD Codes: E11.9 - Type 2 diabetes mellitus without complications SNOMED: 02263401 (12) Colitis ICD Codes: K52.9 - Noninfective gastroenteritis and colitis, unspecified SNOMED: 36209842 Status: progressing, unchanged Status Narrative Discussed with Dr. Wallace Assessment/Plan off airborne isolation NELDA next week OB stool positive EGD on hold until respiratory status stabilizes. on ppi stool ob positive>> monitor H&H and transfuse as needed >> will add another OB stool today [facility] cardiology recs repeat labs The patient was seen and examined at bedside and all new and available data was reviewed in the patients chart. I agree with the above findings, impression and plan. (Patient seen earlier today. Signature stamp does not reflect patient encounter time.). - Oli Wallace MD Subjective Subjective Limited Objective Last 24 Hour Vital Signs Date Time Temp Pulse Resp B/P (MAP) Pulse Ox O2 Delivery O2 Flow Rate FiO2 07/09/18 04:00 99.2 83 20 155/60 (91) 96 07/09/18 04:00 83 07/09/18 00:00 86 07/09/18 00:00 98.8 86 20 147/64 (91) 97 07/08/18 22:15 98.6 94 20 150/76 (100) 96 07/08/18 20:00 101 07/08/18 20:00 Nasal Cannula 2.0 07/08/18 20:00 98.4 99 24 115/64 (81) 98 07/08/18 16:00 Non-Rebreather 15.0 07/08/18 16:00 98.9 91 19 113/70 (84) 100 07/08/18 16:00 106 07/08/18 12:00 92 07/08/18 12:00 98.7 94 16 137/72 (93) 98 07/08/18 12:00 Non-Rebreather 15.0 Intake and Output 07/08/18 07/09/18 18:59 06:59 Intake Total 925 ml 865 ml Output Total 200 ml 600 ml Balance 725 ml 265 ml Intake Free Water 150 ml IV Total 165 ml 55 ml Tube Feeding 660 ml 660 ml Other 100 ml Output Urine Total 200 ml 600 ml # Bowel Movements 1 1 Laboratory Tests Test 07/08/18 15:58 07/09/18 06:45 Arterial Blood pH 7.467 (7.350-7.450) Arterial Blood Partial Pressure CO2 32.5 mmHg (35.0-45.0) L Arterial Blood Partial Pressure O2 413.6 mmHg (75.0-100.0) H Arterial Blood HCO3 23.0 mmol/L (22.0-26.0) Arterial Blood Oxygen Saturation 99.0 % (95-100) Arterial Blood Base Excess -0.4 (-2-2) Feroz Test Positive White Blood Count 6.2 K/UL (4.8-10.8) Red Blood Count 2.95 M/UL (4.20-5.40) L Hemoglobin 8.6 G/DL (12.0-16.0) L Hematocrit 27.1 % (37.0-47.0) L Mean Corpuscular Volume 92 FL (80-99) Mean Corpuscular Hemoglobin 29.2 PG (27.0-31.0) Mean Corpuscular Hemoglobin Concent 31.8 G/DL (32.0-36.0) L Red Cell Distribution Width 18.8 % (11.6-14.8) H Platelet Count 123 K/UL (150-450) L Mean Platelet Volume 8.6 FL (6.5-10.1) Neutrophils (%) (Auto) % (45.0-75.0) Lymphocytes (%) (Auto) % (20.0-45.0) Monocytes (%) (Auto) % (1.0-10.0) Eosinophils (%) (Auto) % (0.0-3.0) Basophils (%) (Auto) % (0.0-2.0) Neutrophils % (Manual) Pending Lymphocytes % (Manual) Pending Platelet Estimate Pending Platelet Morphology Pending Sodium Level 149 MMOL/L (136-145) H Potassium Level 4.8 MMOL/L (3.5-5.1) Chloride Level 117 MMOL/L (98-107) H Carbon Dioxide Level 24 MMOL/L (21-32) Anion Gap 8 mmol/L (5-15) Blood Urea Nitrogen 29 mg/dL (7-18) H Creatinine 0.8 MG/DL (0.55-1.30) Estimat Glomerular Filtration Rate mL/min (>60) Glucose Level 163 MG/DL (74-106) H Calcium Level 8.5 MG/DL (8.5-10.1) Height (Feet): 5 Height (Inches): 5.00 Weight (Pounds): 147 General Appearance: WD/WN, no apparent distress, alert, thin Cardiovascular: normal rate Respiratory/Chest: normal breath sounds, no respiratory distress Abdominal Exam: normal bowel sounds, non tender, soft Extremities: non-tender Joe Sagastume NP Jul 09, 2018 09:55
[2018-07-09] MEDS: OLANZapine 2.5mg tab NG SCH ×2 (10:17→17:31)
--- NOTE | 2018-07-09 11:27 | NUR ---
NURSE NOTES: Dr Bardales informed regarding repeat blood culture result Gram Positive cocci in clusters, from blood taken on 07/07/18. Addendum: 07/09/18 at 1622 by AUDI STANTON RN No further orders regarding previous note.
--- NOTE | 2018-07-09 11:56 | Diagnostic Imaging Report ---
Indication: Dyspnea Comparison: None A single view chest radiograph was obtained. Findings: Cardiomegaly demonstrated. Some vascular prominence demonstrated within the lungs. Bilateral pacemakers are present. NG tube is in good position. Hazy opacity in the right lower lung field may be a pleural effusion. IMPRESSION: Suspected right pleural effusion. Suspected mild pulmonary vascular congestion No interval change appreciated
[2018-07-09 12:00] VITALS: BP_SYST 150; BP_SYST 161; BP_DIAS 77; BP_DIAS 91
--- NOTE | 2018-07-09 12:33 | Pulmonology Progress Note ---
Assessment/Plan Problems: (1) Sepsis (2) Thrombocytopenia (3) ATN (acute tubular necrosis) (4) Pulmonary hypertension (5) Sacral decubitus ulcer, stage III (6) Alzheimer's dementia (7) Protein-calorie malnutrition, severe (8) HTN (hypertension) (9) Pacemaker (10) CAD (coronary artery disease) Assessment/Plan on NC /u PLT, better today up to 123 failed swallow study Morphine prn d/w wound care nurse, mckeon cultures, still positive BC are still positive from 07/05 and 06/05, now for GN check electrolytes sliding scale check electrolytes daily broad spectrum abx dvt prophylaxis insulin coverage. social service consult might need removal of pacemaker leads, d/W dr Bardales, Cardiology wants to wait until pt hemodynamically better to do an NELDA to find out if the they are infected. Subjective Constitutional: Reports: no symptoms HEENT: Repors: no symptoms Respiratory: Reports: no symptoms Allergies: Coded Allergies: No Known Allergies (Unverified , 08/10/13) Objective Last 24 Hour Vital Signs Date Time Temp Pulse Resp B/P (MAP) Pulse Ox O2 Delivery O2 Flow Rate FiO2 07/09/18 09:00 Nasal Cannula 2.0 07/09/18 08:00 98.8 103 20 134/73 (93) 100 07/09/18 04:00 99.2 83 20 155/60 (91) 96 07/09/18 04:00 83 07/09/18 00:00 86 07/09/18 00:00 98.8 86 20 147/64 (91) 97 07/08/18 22:15 98.6 94 20 150/76 (100) 96 07/08/18 20:00 101 07/08/18 20:00 Nasal Cannula 2.0 07/08/18 20:00 98.4 99 24 115/64 (81) 98 07/08/18 16:00 Non-Rebreather 15.0 07/08/18 16:00 98.9 91 19 113/70 (84) 100 07/08/18 16:00 106 Intake and Output 07/08/18 07/09/18 19:00 07:00 Intake Total 925 ml 810 ml Output Total 200 ml 600 ml Balance 725 ml 210 ml Intake Free Water 150 ml IV Total 165 ml 55 ml Tube Feeding 660 ml 605 ml Other 100 ml Output Urine Total 200 ml 600 ml # Bowel Movements 1 1 Objective General Appearance: cachectic HEENT: normocephalic, somnolent Respiratory/Chest: chest wall non-tender,loud rhonchi Cardiovascular: normal peripheral pulses, normal rate Abdomen: normal bowel sounds, soft, non tender Extremities: no cyanosis Skin: no rash Microbiology Date/Time Source Procedure Growth Status 07/07/18 23:15 Blood Blood Culture - Preliminary Resulted 07/07/18 03:50 Blood Blood Culture - Preliminary Staphylococcus Aureus Resulted 07/07/18 03:45 Blood Blood Culture - Preliminary Staphylococcus Aureus Resulted Laboratory Tests 07/08/18 15:58: Arterial Blood pH 7.467H, Arterial Blood Partial Pressure CO2 32.5L, Arterial Blood Partial Pressure O2 413.6H, Arterial Blood HCO3 23.0, Arterial Blood Oxygen Saturation 99.0, Arterial Blood Base Excess -0.4, Feroz Test Positive 07/09/18 06:45: White Blood Count 6.2, Red Blood Count 2.95L, Hemoglobin 8.6L, Hematocrit 27.1L , Mean Corpuscular Volume 92, Mean Corpuscular Hemoglobin 29.2, Mean Corpuscular Hemoglobin Concent 31.8L, Red Cell Distribution Width 18.8H, Platelet Count 123L, Mean Platelet Volume 8.6, Neutrophils (%) (Auto) , Lymphocytes (%) (Auto) , Monocytes (%) (Auto) , Eosinophils (%) (Auto) , Basophils (%) (Auto) , Differential Total Cells Counted 100, Neutrophils % ( Manual) 87H, Lymphocytes % (Manual) 7L, Monocytes % (Manual) 3, Eosinophils % ( Manual) 0, Basophils % (Manual) 0, Band Neutrophils 3, Platelet Estimate DecreasedL, Platelet Morphology Normal, Hypochromasia 1+, Anisocytosis 1+, Sodium Level 149H, Potassium Level 4.8, Chloride Level 117H, Carbon Dioxide Level 24, Anion Gap 8, Blood Urea Nitrogen 29H, Creatinine 0.8, Estimat Glomerular Filtration Rate , Glucose Level 163H, Calcium Level 8.5 Current Medications Medications (Trade) Dose Ordered Sig/Yi Route PRN Reason Start Time Stop Time Status Last Admin Dose Admin Acetaminophen (Tylenol) 650 mg Q4H PRN NG Mild Pain/Temp > 100.5 07/09/18 00:30 07/29/18 16:29 Ceftaroline Fosamil 400 mg/ Sodium Chloride 55 ml @ 55 mls/hr Q12HR IV 07/09/18 09:00 07/10/18 08:59 07/09/18 09:00 Clonidine HCl (Catapres Tab) 0.1 mg Q8H PRN NG SBP>160mmHg 07/09/18 00:30 07/25/18 16:29 Daptomycin 600 mg/ Sodium Chloride 55 ml @ 100 mls/hr Q24H IV 07/09/18 18:00 07/13/18 17:59 Dextrose (Dextrose 50%) 25 ml Q30M PRN IV Hypoglycemia 07/08/18 22:45 07/24/18 13:30 Dextrose (Dextrose 50%) 50 ml Q30M PRN IV hypoglycemia 07/08/18 22:45 07/24/18 13:44 Insulin Aspart (NovoLOG) EVERY 6 HOURS SUBQ 07/09/18 00:00 07/24/18 16:29 07/09/18 07:17 Lansoprazole (Prevacid) 30 mg DAILY NG 07/09/18 09:00 08/02/18 08:59 07/09/18 10:17 Meropenem 1 gm/ Sodium Chloride 55 ml @ 110 mls/hr Q12H IVPB 07/09/18 06:00 07/12/18 17:59 07/09/18 06:27 Olanzapine (ZyPREXA) 2.5 mg BID NG 07/09/18 09:00 07/25/18 10:59 07/09/18 10:17 Ondansetron HCl (Zofran) 4 mg Q6H PRN IVP Nausea & Vomiting 07/08/18 22:30 07/25/18 16:29 Rod Mancera MD Jul 09, 2018 12:33
[2018-07-09] MEDS: Acetaminophen 650mg/20.3ml NG PRN (13:01)
--- NOTE | 2018-07-09 14:14 | NUR ---
RD ASSESSMENT & RECOMMENDATIONS SEE CARE ACTIVITY FOR COMPLETE ASSESSMENT DAILY ESTIMATED NEEDS: Needs based on Wound, DM, wasting, sepsis / 55kg 30-35 kcals/kg 8526-4534 total kcals 1.25-2 g protein/kg 69-110 g total protein 25-30 mL/kg 3572-6304 total fluid mLs NUTRITION DIAGNOSIS: * Increased kcal/prot needs R/T wound healing as evidenced by pt w/ stage 3 sacral wound per MD * Swallowing difficulty R/T dysphagia, respiratory status as evidenced by per ICU SPECIALIST, pt at high risk for silent aspiration, rec for nonoral feedings, on NGT feeding. CURRENT TF:Glucerna 1.2 @ 55ml/hr x 24 hrs ENTERAL NUTRITION RECOMMENDATIONS: Glucerna 1.2 @ 60ml/hr x 24 hrs to provide 1440ml, 1728kcal, 86g prot, 1159ml free water - INCREASE GOAL TO 60ml/hr to better meet est needs - Flush per MD/ HOB over 30 degrees ADDITIONAL RECOMMENDATIONS: * RE-calibrate bedscale for accurate CBW (w/ added WC mattress) * Wound healing: Vit C 500mg BID, Tano 1pkt BID + ZnSO4 220mg dailyx 10 days * Lytes daily, replete as needed . . .
--- NOTE | 2018-07-09 14:53 | Surgery Progress Note ---
Surgery Progress Note Subjective Additional Comments no acute events. NELDA planned for next week. Objective Last 24 Hour Vital Signs Date Time Temp Pulse Resp B/P (MAP) Pulse Ox O2 Delivery O2 Flow Rate FiO2 07/09/18 13:31 98.8 07/09/18 12:00 106 07/09/18 09:00 Nasal Cannula 2.0 07/09/18 08:15 94 Nasal Cannula 2.0 28 07/09/18 08:15 Nasal Cannula 2.0 28 07/09/18 08:00 83 07/09/18 08:00 98.8 103 20 134/73 (93) 100 07/09/18 04:00 99.2 83 20 155/60 (91) 96 07/09/18 04:00 83 07/09/18 00:00 86 07/09/18 00:00 98.8 86 20 147/64 (91) 97 07/08/18 22:15 98.6 94 20 150/76 (100) 96 07/08/18 20:00 101 07/08/18 20:00 Nasal Cannula 2.0 07/08/18 20:00 98.4 99 24 115/64 (81) 98 07/08/18 16:00 Non-Rebreather 15.0 07/08/18 16:00 98.9 91 19 113/70 (84) 100 07/08/18 16:00 106 I&O Intake and Output 07/08/18 07/09/18 19:00 07:00 Intake Total 925 ml 810 ml Output Total 200 ml 600 ml Balance 725 ml 210 ml Intake Free Water 150 ml IV Total 165 ml 55 ml Tube Feeding 660 ml 605 ml Other 100 ml Output Urine Total 200 ml 600 ml # Bowel Movements 1 1 Dressing: other Wound: other Drains: other Cardiovascular: RSR Respiratory: clear Abdomen: soft, non-tender, present bowel sounds, non-distended Extremities: no cyanosis Laboratory Tests Test 07/08/18 15:58 07/09/18 06:45 Arterial Blood pH 7.467 (7.350-7.450) Arterial Blood Partial Pressure CO2 32.5 mmHg (35.0-45.0) L Arterial Blood Partial Pressure O2 413.6 mmHg (75.0-100.0) H Arterial Blood HCO3 23.0 mmol/L (22.0-26.0) Arterial Blood Oxygen Saturation 99.0 % (95-100) Arterial Blood Base Excess -0.4 (-2-2) Feroz Test Positive White Blood Count 6.2 K/UL (4.8-10.8) Red Blood Count 2.95 M/UL (4.20-5.40) L Hemoglobin 8.6 G/DL (12.0-16.0) L Hematocrit 27.1 % (37.0-47.0) L Mean Corpuscular Volume 92 FL (80-99) Mean Corpuscular Hemoglobin 29.2 PG (27.0-31.0) Mean Corpuscular Hemoglobin Concent 31.8 G/DL (32.0-36.0) L Red Cell Distribution Width 18.8 % (11.6-14.8) H Platelet Count 123 K/UL (150-450) L Mean Platelet Volume 8.6 FL (6.5-10.1) Neutrophils (%) (Auto) % (45.0-75.0) Lymphocytes (%) (Auto) % (20.0-45.0) Monocytes (%) (Auto) % (1.0-10.0) Eosinophils (%) (Auto) % (0.0-3.0) Basophils (%) (Auto) % (0.0-2.0) Differential Total Cells Counted 100 Neutrophils % (Manual) 87 % (45-75) H Lymphocytes % (Manual) 7 % (20-45) L Monocytes % (Manual) 3 % (1-10) Eosinophils % (Manual) 0 % (0-3) Basophils % (Manual) 0 % (0-2) Band Neutrophils 3 % (0-8) Platelet Estimate Decreased L Platelet Morphology Normal Hypochromasia 1+ Anisocytosis 1+ Sodium Level 149 MMOL/L (136-145) H Potassium Level 4.8 MMOL/L (3.5-5.1) Chloride Level 117 MMOL/L (98-107) H Carbon Dioxide Level 24 MMOL/L (21-32) Anion Gap 8 mmol/L (5-15) Blood Urea Nitrogen 29 mg/dL (7-18) H Creatinine 0.8 MG/DL (0.55-1.30) Estimat Glomerular Filtration Rate mL/min (>60) Glucose Level 163 MG/DL (74-106) H Calcium Level 8.5 MG/DL (8.5-10.1) Plan Problems: (1) Sepsis Assessment & Plan: Leukocytosis resolved LFT's elevated w/ t bili / d bili - improved AM labs ordered hydrate US Impression: Limited exam, as described. Note inability to visualize the spleen Negative for gallstones or dilated bile ducts Questionable bilateral renal parapelvic cysts Small to moderate right pleural effusion no acute surgical intervention planned. NELDA for septic emboli consider removing pacemaker as harboring sepsis source if NELDA demonstrates lesions tube feeds as tolerated will follow with recs. (2) Sacral decubitus ulcer, stage III Assessment & Plan: DTPI sacrum.Maroon- indurated discoloration with opening at sacral coccygeal area(L)3.8cm x (W)1.4cm with entire wound measuring (L)10cmx(W) 12cm.Small amt malodorous brown exudate. Stable dry eschar R heel with dry peeling skin periwound (L)2cm x (W)3.5cm. Periwound is also red and boggy. Small dry eschar noted to lateral R 5th metatarsal (L)1.4cm x (W)0.3cm. L heel is boggy but colour is dusky . Resolving skin tear lateral R tibia. Wound bed is clean and dry. Tx. Plan: Cleanse Sacral wound with Saline.Apply Therahoney to opening at sacrococcygeal area.Cavilon skin barrier to DTPI. Cover with Optifoam drsg .Change Daily and prn. Apply Betadine to R heel and Lateral R 5th metatarsal.Cover with Abd pad .Wrap with kerlix daily and prn. Apply Cavilon Skin Barrier to L heel.Cover with Optifoam drsg .Change every 7 days and prn. Reposition at least every 2hours or as tolerated. Off-load heels with pillow. (3) Rectal bleed (4) Protein-calorie malnutrition, severe (5) Dehydration (6) IV infiltration Assessment & Plan: left hand IV infiltration prior and now with edema/ irritation noted + ecchymosis on hand and arm keep hand and arm elevated medication reaction and will need to be monitored for worsening poor tissue / protoplasm CT - Diffuse edema of the subcutaneous and deep fat and likely upper arm and forearm musculature. Given stated clinical history, possibly secondary to cellulitis and myositis, but could also be hemodynamic in origin. No discrete rim-enhancing collection to suggest abscess No CT evidence of acute osteomyelitis. Note, however, somewhat limited sensitivity of CT for such. Consider bone scan for further evaluation if there is high clinical suspicion Sher Younger Jul 09, 2018 14:53
--- NOTE | 2018-07-09 15:13 | Internal Med Progress Note ---
Subjective Physician Name Carlos Alberto Berkowitz Attending Physician Carlos Alberto Berkowitz MD Current Medications Medications (Trade) Dose Ordered Sig/Yi Route PRN Reason Start Time Stop Time Status Last Admin Dose Admin Acetaminophen (Tylenol) 650 mg Q4H PRN NG Mild Pain/Temp > 100.5 07/09/18 00:30 07/29/18 16:29 07/09/18 13:01 Ceftaroline Fosamil 400 mg/ Sodium Chloride 55 ml @ 55 mls/hr Q12HR IV 07/09/18 09:00 07/14/18 08:59 07/09/18 09:00 Clonidine HCl (Catapres Tab) 0.1 mg Q8H PRN NG SBP>160mmHg 07/09/18 00:30 07/25/18 16:29 Daptomycin 600 mg/ Sodium Chloride 55 ml @ 100 mls/hr Q24H IV 07/09/18 18:00 07/13/18 17:59 Dextrose (Dextrose 50%) 25 ml Q30M PRN IV Hypoglycemia 07/08/18 22:45 07/24/18 13:30 Dextrose (Dextrose 50%) 50 ml Q30M PRN IV hypoglycemia 07/08/18 22:45 07/24/18 13:44 Insulin Aspart (NovoLOG) EVERY 6 HOURS SUBQ 07/09/18 00:00 07/24/18 16:29 07/09/18 07:17 Lansoprazole (Prevacid) 30 mg DAILY NG 07/09/18 09:00 08/02/18 08:59 07/09/18 10:17 Meropenem 1 gm/ Sodium Chloride 55 ml @ 110 mls/hr Q12H IVPB 07/09/18 06:00 07/12/18 17:59 07/09/18 06:27 Olanzapine (ZyPREXA) 2.5 mg BID NG 07/09/18 09:00 07/25/18 10:59 07/09/18 10:17 Ondansetron HCl (Zofran) 4 mg Q6H PRN IVP Nausea & Vomiting 07/08/18 22:30 07/25/18 16:29 Allergies: Coded Allergies: No Known Allergies (Unverified , 08/10/13) Subjective Awake, more responsive, no acute distress open eyes, single word responding Objective Last Vital Signs Date Time Temp Pulse Resp B/P (MAP) Pulse Ox O2 Delivery O2 Flow Rate FiO2 07/09/18 13:31 98.8 07/09/18 12:00 106 07/09/18 09:00 Nasal Cannula 2.0 07/09/18 08:15 94 28 07/09/18 08:00 20 134/73 (93) Laboratory Tests Test 07/08/18 15:58 07/09/18 06:45 Arterial Blood pH 7.467 (7.350-7.450) Arterial Blood Partial Pressure CO2 32.5 mmHg (35.0-45.0) L Arterial Blood Partial Pressure O2 413.6 mmHg (75.0-100.0) H Arterial Blood HCO3 23.0 mmol/L (22.0-26.0) Arterial Blood Oxygen Saturation 99.0 % (95-100) Arterial Blood Base Excess -0.4 (-2-2) Feroz Test Positive White Blood Count 6.2 K/UL (4.8-10.8) Red Blood Count 2.95 M/UL (4.20-5.40) L Hemoglobin 8.6 G/DL (12.0-16.0) L Hematocrit 27.1 % (37.0-47.0) L Mean Corpuscular Volume 92 FL (80-99) Mean Corpuscular Hemoglobin 29.2 PG (27.0-31.0) Mean Corpuscular Hemoglobin Concent 31.8 G/DL (32.0-36.0) L Red Cell Distribution Width 18.8 % (11.6-14.8) H Platelet Count 123 K/UL (150-450) L Mean Platelet Volume 8.6 FL (6.5-10.1) Neutrophils (%) (Auto) % (45.0-75.0) Lymphocytes (%) (Auto) % (20.0-45.0) Monocytes (%) (Auto) % (1.0-10.0) Eosinophils (%) (Auto) % (0.0-3.0) Basophils (%) (Auto) % (0.0-2.0) Differential Total Cells Counted 100 Neutrophils % (Manual) 87 % (45-75) H Lymphocytes % (Manual) 7 % (20-45) L Monocytes % (Manual) 3 % (1-10) Eosinophils % (Manual) 0 % (0-3) Basophils % (Manual) 0 % (0-2) Band Neutrophils 3 % (0-8) Platelet Estimate Decreased L Platelet Morphology Normal Hypochromasia 1+ Anisocytosis 1+ Sodium Level 149 MMOL/L (136-145) H Potassium Level 4.8 MMOL/L (3.5-5.1) Chloride Level 117 MMOL/L (98-107) H Carbon Dioxide Level 24 MMOL/L (21-32) Anion Gap 8 mmol/L (5-15) Blood Urea Nitrogen 29 mg/dL (7-18) H Creatinine 0.8 MG/DL (0.55-1.30) Estimat Glomerular Filtration Rate mL/min (>60) Glucose Level 163 MG/DL (74-106) H Calcium Level 8.5 MG/DL (8.5-10.1) Microbiology Date/Time Source Procedure Growth Status 07/07/18 23:15 Blood Blood Culture - Preliminary Resulted 07/07/18 03:50 Blood Blood Culture - Preliminary Staphylococcus Aureus Resulted 07/07/18 03:45 Blood Blood Culture - Preliminary Staphylococcus Aureus Resulted Intake and Output 07/08/18 07/09/18 19:00 07:00 Intake Total 925 ml 810 ml Output Total 200 ml 600 ml Balance 725 ml 210 ml Intake Free Water 150 ml IV Total 165 ml 55 ml Tube Feeding 660 ml 605 ml Other 100 ml Output Urine Total 200 ml 600 ml # Bowel Movements 1 1 Objective General: Awake and more responsive, no acute distress.. HEENT: NCAT, sclera anicteric, PERRL, EOMI, NG tube. Neck: Supple, no significant jugular venous distention, Lungs: Poor inspiratory effort, decreased air in the bases , no Wheeze or Rales. Heart: Regular rate and rhythm, normal S1/S2, no murmur. Abdomen: soft, nontender, nondistended. Normoactive bowel sounds. / Rectal: Refused and deferred. Extremities: No Cyanosis , No clubbing, Left less UE edema. Lateral lower extremity / feet dressing intact. RUE Piccline. Neuro: A&O x 1, Able to move all extremities slowly. Skin: warm, no rashes or lesions, ecchymosis in bilateral upper extremity noted.Stage 4 Decubi ulceration. Assessment/Plan Assessment/Plan 1. Sepsis / High grade persistent MRSA bacteremia w/ septic emboli- Infective endocarditis until proven otherwise- r/o probable PPM infection 2. Failure to thrive with severe protein calorie malnutrition. 3. Coronary artery disease. 4. Diabetes, type 2. 5. Hypertension. 6. Sick sinus syndrome. 7. Hypercholesterolemia. 8. Aortic stenosis. 9. Pulmonary hypertension. 10. Alzheimer dementia. 11. Acute tubular necrosis/acute kidney injury most likely secondary to dehydration and sepsis. 12. Sacral decubitus ulcer, stage III 13. Severe dehydration 14. Hypokalemia. 15. Abnormal liver function test TREATMENT: 1. Antibiotics with Daptomycin, meropenem, and ceftriaxone, monitor culture 2. Coronary artery disease. The patient is status post coronary artery bypass graft in 2017. 3. Diabetes, type 2. The patient has been started on NovoLog sliding scale. 4. Hypertension. The patient is to continue on atenolol and losartan as above. 5. Sick sinus syndrome. The patient is status post pacemaker implantation. 6. Hypercholesterolemia. Continue simvastatin as above. 7. Aortic stenosis. 8. Pulmonary hypertension. 9. Alzheimer dementia. Monitor laboratory as well as culture. Tube feeding at rate of 55 cc/hr. CODE STATUS is full code as per ARLET, DVT prophylaxis: Heparin subcu. Carlos Alberto Berkowitz MD Jul 09, 2018 15:13
[2018-07-09 16:04] VITALS: BP 150/77
[2018-07-09] MEDS: DAPTOmycin 600 MG in NS 55 ML IV SCH (17:31)
--- NOTE | 2018-07-09 17:54 | Infectious Diseases Prog Note ---
Assessment/Plan Assessment/Plan 82 yo female with PMHx DM, CAD, Alzheimer dementia and Hip fracture who presents with dehydration and weakness. 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 Given normal appearing chest radiograph on 06/24/2018, these are overwhelmingly likely infectious/inflammatory in nature. Most likely represent septic pulmonary emboli. The possibility of mycobacterial infection should also be included, deemed less likely given absence of adenopathy but still possible. Differential considerations also include fungal infections, noninfectious inflammatory processes. Other noncavitary nodules are also demonstrated, with the same differential. Large right and [id number] left pleural effusions. Compressive atelectasis of the majority of the right lower lobe. Infiltrates seen in the right upper lobe. Bilateral pacemaker. Evidence of central venoocclusive disease. Wedge-shaped area of low-attenuation in the upper pole of the spleen, suspicious for infarct. -2d Echo (limited study due to contractures): no vegetations seen -06/27 Bcx 08/19MRSA; 06/28 Bcx 06/21 MRSA; 06/29 08/19 MRSA; 07/01 Bcx 08/19 MRSA; Bcx 08/19 GPC clusters 06/25/18 Blood Cx 08/19 MRSA 06/24/18 Wound Cx MRSA, ESBL E.coli (S ZOsyn), K. pna (S Zosyn) Neg: Histo, Blasto ab Gram neg bacteremia- ?source- UTI vs Mid mary infection vs from lungs -07/06 BCx 08/19 ESBL K.pna, 06/21 S.aureus r/o Probable PNA -07/06 CXR: Increased and now large right-sided pleural effusion, compared to prior study of 06/27/2018. Note that a large pleural effusion is evident on recent CT scan of 5 days earlier -sp cx ESBL K.pna and ESBL E>coli (both S Meropenem, Zosyn) L arm cellulitis from IV infiltration -CT L arm: Diffuse edema of the subcutaneous and deep fat and likely upper arm and forearm musculature. Given stated clinical history, possibly secondary to cellulitis and myositis, but could also be hemodynamic in origin. No discrete rim-enhancing collection to suggest abscess. No CT evidence of acute osteomyelitis. Leukocytosis, SP Low grade fever; SP Positive UA CXR neg Thrombocytopenia- HIT vs medication related Pressure ulcers Not infected Right hip fracture with hemiarthroplasty Feb 2018 DM HTN Sick sinus syndrome sp Pacemaker HLD CAD - SP MN and CABG Aortic stenosis. Pulmonary hypertension. Alzheimer dementia. PLAN - Continue Daptomycin #10 (abx d #15) and Ceftaroline #8 given persistent MRSA Bacteremia -monitor CPK -Cont Meropenem #3 for GNR bacteremia and ESBL in sputum - repeat 2 sets of Bcx daily-q48hrs until clearance of bacteremia -06/30 SP Vancomycin #6 -06/30 SP Zosyn #4 -06/27 SP Cefepime #3 -Will need NELDA and removal of PPM for bacteremia clearance/source control if consistent with goals of care -plan for NELDA when more stable, probably next week -consider thoracentesis for Large R pleural effusion- have to consider also pleural effusion as source of continued bacteremia -f/u final AFB cx x3 - f/u repeat cultures - Monitor CBC and temps - wound care - Nutritional support -f/u cocci -Sx/ fu -L arm elevation Thank you for this consult. We will continue to follow the patient during this hospitalization. Subjective Allergies: Coded Allergies: No Known Allergies (Unverified , 08/10/13) Subjective ; afebrile still bacteremic on 2l NC plan for NELDA next week Objective Vital Signs Last 24 Hour Vital Signs Date Time Temp Pulse Resp B/P (MAP) Pulse Ox O2 Delivery O2 Flow Rate FiO2 07/09/18 16:04 96.6 97 20 150/77 (101) 93 07/09/18 13:31 98.8 07/09/18 12:00 106 07/09/18 12:00 96.3 96 20 161/91 (114) 99 07/09/18 09:00 Nasal Cannula 2.0 07/09/18 08:15 94 Nasal Cannula 2.0 28 07/09/18 08:15 Nasal Cannula 2.0 28 07/09/18 08:00 83 07/09/18 08:00 98.8 103 20 134/73 (93) 100 07/09/18 04:00 99.2 83 20 155/60 (91) 96 07/09/18 04:00 83 07/09/18 00:00 86 07/09/18 00:00 98.8 86 20 147/64 (91) 97 07/08/18 22:15 98.6 94 20 150/76 (100) 96 07/08/18 20:00 101 07/08/18 20:00 Nasal Cannula 2.0 07/08/18 20:00 98.4 99 24 115/64 (81) 98 Height (Feet): 5 Height (Inches): 5.00 Weight (Pounds): 147 Objective Gen: Moaning, Awake but no following HEENT: NCAT, MMM, EOMI, PERRL LUNGS: CTAB, No W CARDS: RRR, S1, S2, No M/R/G, ABD: Soft, NT, ND, + BS Ext: Poor circulation to Ext (cool to touch) , Pulses 2+ B/L (DP, Rad): SKIN: Dry, No rashes, Large sacral ulcer. Mild odor no surrounding cellulitis, foot with eschar Microbiology Date/Time Source Procedure Growth Status 07/07/18 23:15 Blood Blood Culture - Preliminary Resulted 07/07/18 03:50 Blood Blood Culture - Preliminary Staphylococcus Aureus Resulted 07/07/18 03:45 Blood Blood Culture - Preliminary Staphylococcus Aureus Resulted Laboratory Tests Test 07/09/18 06:45 White Blood Count 6.2 K/UL (4.8-10.8) Red Blood Count 2.95 M/UL (4.20-5.40) L Hemoglobin 8.6 G/DL (12.0-16.0) L Hematocrit 27.1 % (37.0-47.0) L Mean Corpuscular Volume 92 FL (80-99) Mean Corpuscular Hemoglobin 29.2 PG (27.0-31.0) Mean Corpuscular Hemoglobin Concent 31.8 G/DL (32.0-36.0) L Red Cell Distribution Width 18.8 % (11.6-14.8) H Platelet Count 123 K/UL (150-450) L Mean Platelet Volume 8.6 FL (6.5-10.1) Neutrophils (%) (Auto) % (45.0-75.0) Lymphocytes (%) (Auto) % (20.0-45.0) Monocytes (%) (Auto) % (1.0-10.0) Eosinophils (%) (Auto) % (0.0-3.0) Basophils (%) (Auto) % (0.0-2.0) Differential Total Cells Counted 100 Neutrophils % (Manual) 87 % (45-75) H Lymphocytes % (Manual) 7 % (20-45) L Monocytes % (Manual) 3 % (1-10) Eosinophils % (Manual) 0 % (0-3) Basophils % (Manual) 0 % (0-2) Band Neutrophils 3 % (0-8) Platelet Estimate Decreased L Platelet Morphology Normal Hypochromasia 1+ Anisocytosis 1+ Sodium Level 149 MMOL/L (136-145) H Potassium Level 4.8 MMOL/L (3.5-5.1) Chloride Level 117 MMOL/L (98-107) H Carbon Dioxide Level 24 MMOL/L (21-32) Anion Gap 8 mmol/L (5-15) Blood Urea Nitrogen 29 mg/dL (7-18) H Creatinine 0.8 MG/DL (0.55-1.30) Estimat Glomerular Filtration Rate mL/min (>60) Glucose Level 163 MG/DL (74-106) H Calcium Level 8.5 MG/DL (8.5-10.1) Current Medications Medications (Trade) Dose Ordered Sig/Yi Route PRN Reason Start Time Stop Time Status Last Admin Dose Admin Acetaminophen (Tylenol) 650 mg Q4H PRN NG Mild Pain/Temp > 100.5 07/09/18 00:30 07/29/18 16:29 07/09/18 13:01 Ceftaroline Fosamil 400 mg/ Sodium Chloride 55 ml @ 55 mls/hr Q12HR IV 07/09/18 09:00 07/14/18 08:59 07/09/18 09:00 Clonidine HCl (Catapres Tab) 0.1 mg Q8H PRN NG SBP>160mmHg 07/09/18 00:30 07/25/18 16:29 Daptomycin 600 mg/ Sodium Chloride 55 ml @ 100 mls/hr Q24H IV 07/09/18 18:00 07/13/18 17:59 07/09/18 17:31 Dextrose (Dextrose 50%) 25 ml Q30M PRN IV Hypoglycemia 07/08/18 22:45 07/24/18 13:30 Dextrose (Dextrose 50%) 50 ml Q30M PRN IV hypoglycemia 07/08/18 22:45 07/24/18 13:44 Insulin Aspart (NovoLOG) EVERY 6 HOURS SUBQ 07/09/18 00:00 07/24/18 16:29 07/09/18 17:35 Lansoprazole (Prevacid) 30 mg DAILY NG 07/09/18 09:00 08/02/18 08:59 07/09/18 10:17 Meropenem 1 gm/ Sodium Chloride 55 ml @ 110 mls/hr Q12H IVPB 07/09/18 06:00 07/12/18 17:59 07/09/18 17:31 Olanzapine (ZyPREXA) 2.5 mg BID NG 07/09/18 09:00 07/25/18 10:59 07/09/18 17:31 Ondansetron HCl (Zofran) 4 mg Q6H PRN IVP Nausea & Vomiting 07/08/18 22:30 07/25/18 16:29 Roseann Bardales M.D. Jul 09, 2018 17:54
--- NOTE | 2018-07-09 18:19 | General Progress Note ---
Assessment/Plan Assessment/Plan ASSESSMENT/RECS: 1. Pancytopenia with thrombocytopenia that is severe is most likely related to Sepsis, lactic acidosis. In addition has received heparin. US abdomen ordered and shows no spleen and no cirrhosis --> heparin discontinued, does not require it --> HIT ab test reviewed --> venous duplex negative --> smear peripheral has been reviewed and negative for abnml cells --> tumor markers as needed/prn --> hold off on transfusion unless plt <20k --> hold off on steriods --> plt trend: 34--> 50k-->78k-->93k-->123k 2. Failure to thrive with severe protein calorie malnutrition. ->> calorie counts daily --> consider mirtazapine as needed per pcp --> getting ngtfs 3. Anemia of chronic disease --> panel has been reviewed --> transfuse if hgb <7 4. Leukocytosis --> on abx as per id for infection --> trend as needed, has multople infections 5. Hypertension. 6. Sick sinus syndrome. 7. Hypercholesterolemia. 8. Aortic stenosis. 9. Pulmonary hypertension. 10. Alzheimer dementia. 11. Acute tubular necrosis/acute kidney injury most likely secondary to dehydration and sepsis. Greatly appreciate consultation! Subjective Constitutional: Denies: no symptoms, chills, diaphoresis, fever, malaise, weakness, other Cardiovascular: Denies: no symptoms, chest pain, edema, irregular heart rate, lightheadedness, palpitations, syncope, other Respiratory: Denies: no symptoms, cough, orthopnea, shortness of breath, SOB with excertion, SOB at rest, sputum, stridor, wheezing, other Genitourinary: Denies: no symptoms, burning, discharge, frequency, flank pain, hematuria, incontinence, pain, urgency, other Neurologic/Psychiatric: Denies: no symptoms, anxiety, depressed, emotional problems, headache, numbness, paresthesia, pre-existing deficit, seizure, tingling, tremors, weakness, other Hematologic/Lymphatic: Denies: no symptoms, anemia, easy bleeding, easy bruising, other Allergies: Coded Allergies: No Known Allergies (Unverified , 08/10/13) Subjective 07/01:seen by bedside, Possible EGD tomorrow to evaluate upper GI bleed, today's EGD was canceled by anesthesia, plt remains low at 34, hgb trending up . 07/02: Scheduled for EGD today,CT w/ cavitary lung lessions; placed on isolation , remains bacteremic, wbc 12. 07/04: continues to be somewhat sob, imaging reviewed, labs are better this am, plts uptrending, getting ngtfs 07/05: awake, comfortable, no events 07/06: Pt is confused, screaming, Left upper extremity ecchymosis, edema. no abscess,ID following, plt trending up. 07/07: awake, comfortable, no acute distress. 07/08: no events, trending plt is trending up slowly, on abx Objective Last 24 Hour Vital Signs Date Time Temp Pulse Resp B/P (MAP) Pulse Ox O2 Delivery O2 Flow Rate FiO2 07/09/18 16:04 96.6 97 20 150/77 (101) 93 07/09/18 13:31 98.8 07/09/18 12:00 106 07/09/18 12:00 96.3 96 20 161/91 (114) 99 07/09/18 09:00 Nasal Cannula 2.0 07/09/18 08:15 94 Nasal Cannula 2.0 28 07/09/18 08:15 Nasal Cannula 2.0 28 07/09/18 08:00 83 07/09/18 08:00 98.8 103 20 134/73 (93) 100 07/09/18 04:00 99.2 83 20 155/60 (91) 96 07/09/18 04:00 83 07/09/18 00:00 86 07/09/18 00:00 98.8 86 20 147/64 (91) 97 07/08/18 22:15 98.6 94 20 150/76 (100) 96 07/08/18 20:00 101 07/08/18 20:00 Nasal Cannula 2.0 07/08/18 20:00 98.4 99 24 115/64 (81) 98 Intake and Output 07/08/18 07/09/18 19:00 07:00 Intake Total 925 ml 810 ml Output Total 200 ml 600 ml Balance 725 ml 210 ml Intake Free Water 150 ml IV Total 165 ml 55 ml Tube Feeding 660 ml 605 ml Other 100 ml Output Urine Total 200 ml 600 ml # Bowel Movements 1 1 Laboratory Tests 07/09/18 06:45: White Blood Count 6.2, Red Blood Count 2.95L, Hemoglobin 8.6L, Hematocrit 27.1L , Mean Corpuscular Volume 92, Mean Corpuscular Hemoglobin 29.2, Mean Corpuscular Hemoglobin Concent 31.8L, Red Cell Distribution Width 18.8H, Platelet Count 123L, Mean Platelet Volume 8.6, Neutrophils (%) (Auto) , Lymphocytes (%) (Auto) , Monocytes (%) (Auto) , Eosinophils (%) (Auto) , Basophils (%) (Auto) , Differential Total Cells Counted 100, Neutrophils % ( Manual) 87H, Lymphocytes % (Manual) 7L, Monocytes % (Manual) 3, Eosinophils % ( Manual) 0, Basophils % (Manual) 0, Band Neutrophils 3, Platelet Estimate DecreasedL, Platelet Morphology Normal, Hypochromasia 1+, Anisocytosis 1+, Sodium Level 149H, Potassium Level 4.8, Chloride Level 117H, Carbon Dioxide Level 24, Anion Gap 8, Blood Urea Nitrogen 29H, Creatinine 0.8, Estimat Glomerular Filtration Rate , Glucose Level 163H, Calcium Level 8.5 Height (Feet): 5 Height (Inches): 5.00 Weight (Pounds): 147 Objective GENERAL: Awake responsive to deep stimuli with opening of her eyes HEENT: Eyes, pupils equal responsive. ++ ngtf CHEST: Poor inspiratory effort, decreased CARDIOVASCULAR: Regular rhythm and rate. S1 and S2 ABDOMEN: Soft, nontender, and nondistended. Positive bowel sounds. EXTREMITIES: Negative for clubbing, cyanosis, or edema, muscle atrophy in b/l extremkity RECTAL/GENITAL: Not performed. NEUROLOGIC:somewhat responsive, improved Kadeem Bennett MD Jul 09, 2018 18:19
--- NOTE | 2018-07-09 19:40 | NUR ---
NURSE NOTES: Received pt. and report from SOILA Mccarty. Observed pt. resting in bed with both eyes closed. Pt. is A/O x1; responds to name only. travel manager is in placed. Pt. has a J CARLOS midline; intact, asymptomatic, patent, and saline locked. Pt. has a NGT currently feeding Glucerna 1.2 @ 55cc/hr. Aspiration precaution noted; HOB is at 30 degrees. Call light is within reach, bed is in the lowest position and locked. No acute distress noted at this time. Will continue plan of care.
--- NOTE | 2018-07-09 19:49 | NUR ---
HAND-OFF: Report given to My RN. Pt is resting in bed in stable condition. Endorsed plan of care.
[2018-07-09 20:00] VITALS: BP 106/69
[2018-07-09] MEDS ORDERED: Tubing IV Secondary IV ONE (20:29)
[2018-07-09] MEDS ORDERED: NS 275ml ONE (20:29)
--- NOTE | 2018-07-09 22:57 | Cardiology Progress Note ---
Assessment/Plan Assessment/Plan the patient does not clear bacteremia, remains very ill, her Oxygen saturation is low, she is not a candidate for surgery (removal of pacemaker leads) or even NELDA, she is very cachectic and malnourished, will continue monitor, hopefully she sill improve. at present time cannot proceed with NELDA due to low O2 saturation Subjective Subjective lethargic and confused, does not interact Objective Last 24 Hour Vital Signs Date Time Temp Pulse Resp B/P (MAP) Pulse Ox O2 Delivery O2 Flow Rate FiO2 07/09/18 16:04 96.6 97 20 150/77 (101) 93 07/09/18 16:00 91 07/09/18 13:31 98.8 07/09/18 12:00 106 07/09/18 12:00 96.3 96 20 161/91 (114) 99 07/09/18 09:00 Nasal Cannula 2.0 07/09/18 08:15 94 Nasal Cannula 2.0 28 07/09/18 08:15 Nasal Cannula 2.0 28 07/09/18 08:00 83 07/09/18 08:00 98.8 103 20 134/73 (93) 100 07/09/18 04:00 99.2 83 20 155/60 (91) 96 07/09/18 04:00 83 07/09/18 00:00 86 07/09/18 00:00 98.8 86 20 147/64 (91) 97 General Appearance: severe distress, lethargic, other - cachectic EENT: PERRL/EOMI Neck: no JVD Rhythm: NSR Cardiovascular: systolic murmur Respiratory/Chest: crackles/rales Abdomen: no mass Extremities: other - anasarca Intake and Output 07/08/18 07/09/18 19:00 07:00 Intake Total 925 ml 810 ml Output Total 200 ml 600 ml Balance 725 ml 210 ml Intake Free Water 150 ml IV Total 165 ml 55 ml Tube Feeding 660 ml 605 ml Other 100 ml Output Urine Total 200 ml 600 ml # Bowel Movements 1 1 Laboratory Tests Test 07/09/18 06:45 White Blood Count 6.2 K/UL (4.8-10.8) Red Blood Count 2.95 M/UL (4.20-5.40) L Hemoglobin 8.6 G/DL (12.0-16.0) L Hematocrit 27.1 % (37.0-47.0) L Mean Corpuscular Volume 92 FL (80-99) Mean Corpuscular Hemoglobin 29.2 PG (27.0-31.0) Mean Corpuscular Hemoglobin Concent 31.8 G/DL (32.0-36.0) L Red Cell Distribution Width 18.8 % (11.6-14.8) H Platelet Count 123 K/UL (150-450) L Mean Platelet Volume 8.6 FL (6.5-10.1) Neutrophils (%) (Auto) % (45.0-75.0) Lymphocytes (%) (Auto) % (20.0-45.0) Monocytes (%) (Auto) % (1.0-10.0) Eosinophils (%) (Auto) % (0.0-3.0) Basophils (%) (Auto) % (0.0-2.0) Differential Total Cells Counted 100 Neutrophils % (Manual) 87 % (45-75) H Lymphocytes % (Manual) 7 % (20-45) L Monocytes % (Manual) 3 % (1-10) Eosinophils % (Manual) 0 % (0-3) Basophils % (Manual) 0 % (0-2) Band Neutrophils 3 % (0-8) Platelet Estimate Decreased L Platelet Morphology Normal Hypochromasia 1+ Anisocytosis 1+ Sodium Level 149 MMOL/L (136-145) H Potassium Level 4.8 MMOL/L (3.5-5.1) Chloride Level 117 MMOL/L (98-107) H Carbon Dioxide Level 24 MMOL/L (21-32) Anion Gap 8 mmol/L (5-15) Blood Urea Nitrogen 29 mg/dL (7-18) H Creatinine 0.8 MG/DL (0.55-1.30) Estimat Glomerular Filtration Rate mL/min (>60) Glucose Level 163 MG/DL (74-106) H Calcium Level 8.5 MG/DL (8.5-10.1) Microbiology Date/Time Source Procedure Growth Status 07/07/18 23:15 Blood Blood Culture - Preliminary Resulted 07/07/18 03:50 Blood Blood Culture - Preliminary Staphylococcus Aureus Resulted 07/07/18 03:45 Blood Blood Culture - Preliminary Staphylococcus Aureus Resulted Karol Oliver MD Jul 09, 2018 22:57
--- NOTE | 2018-07-09 23:15 | NUR ---
NURSE NOTES: No NGT feeding residual.
--- NOTE | 2018-07-09 23:29 | General Progress Note ---
Assessment/Plan Assessment/Plan ASSESSMENT/RECS: 1. Pancytopenia with thrombocytopenia that is severe is most likely related to Sepsis, lactic acidosis. In addition has received heparin. US abdomen ordered and shows no spleen and no cirrhosis --> heparin discontinued, does not require it --> HIT ab test reviewed --> venous duplex negative --> smear peripheral has been reviewed and negative for abnml cells --> tumor markers as needed/prn --> hold off on transfusion unless plt <20k --> hold off on steriods --> plt trend: 34--> 50k-->78k-->93k-->123k 2. Failure to thrive with severe protein calorie malnutrition. ->> calorie counts daily --> consider mirtazapine as needed per pcp --> getting ngtfs 3. Anemia of chronic disease --> panel has been reviewed --> transfuse if hgb <7 4. Leukocytosis --> on abx as per id for infection --> trend as needed, has multople infections 5. Hypertension. 6. Sick sinus syndrome. 7. Hypercholesterolemia. 8. Aortic stenosis. 9. Pulmonary hypertension. 10. Alzheimer dementia. 11. Acute tubular necrosis/acute kidney injury most likely secondary to dehydration and sepsis. Greatly appreciate consultation! Subjective ROS Limited/Unobtainable: Yes Allergies: Coded Allergies: No Known Allergies (Unverified , 08/10/13) Subjective 07/01:seen by bedside, Possible EGD tomorrow to evaluate upper GI bleed, today's EGD was canceled by anesthesia, plt remains low at 34, hgb trending up . 07/02: Scheduled for EGD today,CT w/ cavitary lung lessions; placed on isolation , remains bacteremic, wbc 12. 07/04: continues to be somewhat sob, imaging reviewed, labs are better this am, plts uptrending, getting ngtfs 07/05: awake, comfortable, no events 07/06: Pt is confused, screaming, Left upper extremity ecchymosis, edema. no abscess,ID following, plt trending up. 07/07: awake, comfortable, no acute distress. 07/08: no events, trending plt is trending up slowly, on abx 07/09: seen by bedside, remains lethargic, no events Objective Last 24 Hour Vital Signs Date Time Temp Pulse Resp B/P (MAP) Pulse Ox O2 Delivery O2 Flow Rate FiO2 07/09/18 20:00 98.0 84 20 106/69 (81) 93 07/09/18 16:04 96.6 97 20 150/77 (101) 93 07/09/18 16:00 91 07/09/18 13:31 98.8 07/09/18 12:00 106 07/09/18 12:00 96.3 96 20 161/91 (114) 99 07/09/18 09:00 Nasal Cannula 2.0 07/09/18 08:15 94 Nasal Cannula 2.0 28 07/09/18 08:15 Nasal Cannula 2.0 28 07/09/18 08:00 83 07/09/18 08:00 98.8 103 20 134/73 (93) 100 07/09/18 04:00 99.2 83 20 155/60 (91) 96 07/09/18 04:00 83 07/09/18 00:00 86 07/09/18 00:00 98.8 86 20 147/64 (91) 97 Intake and Output 07/08/18 07/09/18 19:00 07:00 Intake Total 925 ml 810 ml Output Total 200 ml 600 ml Balance 725 ml 210 ml Intake Free Water 150 ml IV Total 165 ml 55 ml Tube Feeding 660 ml 605 ml Other 100 ml Output Urine Total 200 ml 600 ml # Bowel Movements 1 1 Laboratory Tests 07/09/18 06:45: White Blood Count 6.2, Red Blood Count 2.95L, Hemoglobin 8.6L, Hematocrit 27.1L , Mean Corpuscular Volume 92, Mean Corpuscular Hemoglobin 29.2, Mean Corpuscular Hemoglobin Concent 31.8L, Red Cell Distribution Width 18.8H, Platelet Count 123L, Mean Platelet Volume 8.6, Neutrophils (%) (Auto) , Lymphocytes (%) (Auto) , Monocytes (%) (Auto) , Eosinophils (%) (Auto) , Basophils (%) (Auto) , Differential Total Cells Counted 100, Neutrophils % ( Manual) 87H, Lymphocytes % (Manual) 7L, Monocytes % (Manual) 3, Eosinophils % ( Manual) 0, Basophils % (Manual) 0, Band Neutrophils 3, Platelet Estimate DecreasedL, Platelet Morphology Normal, Hypochromasia 1+, Anisocytosis 1+, Sodium Level 149H, Potassium Level 4.8, Chloride Level 117H, Carbon Dioxide Level 24, Anion Gap 8, Blood Urea Nitrogen 29H, Creatinine 0.8, Estimat Glomerular Filtration Rate , Glucose Level 163H, Calcium Level 8.5 Height (Feet): 5 Height (Inches): 5.00 Weight (Pounds): 147 Objective GENERAL: Awake responsive to deep stimuli with opening of her eyes HEENT: Eyes, pupils equal responsive. ++ ngtf CHEST: Poor inspiratory effort, decreased CARDIOVASCULAR: Regular rhythm and rate. S1 and S2 ABDOMEN: Soft, nontender, and nondistended. Positive bowel sounds. EXTREMITIES: Negative for clubbing, cyanosis, or edema, muscle atrophy in b/l extremkity RECTAL/GENITAL: Not performed. NEUROLOGIC:somewhat responsive, improved Kadeem Bennett MD Jul 09, 2018 23:29
[2018-07-10] VITALS (7 sets, daily range): BP systolic 0–169; BP diastolic 0–93
[2018-07-10] MEDS: NovoLOG Insulin Flexpen SUBQ SCH ×4 (00:19→17:43)
--- NOTE | 2018-07-10 03:15 | NUR ---
NURSE NOTES: No NGT feeding residual.
[2018-07-10] MEDS: Acetaminophen 650mg/20.3ml NG PRN ×2 (03:54→08:40)
[2018-07-10] MEDS: Meropenem 1 GM in NS 55 ML IVPB SCH (05:59)
--- NOTE | 2018-07-10 07:15 | NUR ---
NURSE NOTES: No NGT feeding residual.
--- NOTE | 2018-07-10 07:26 | NUR ---
NURSE NOTES: Received pt. and report from SOILA Edmonds. Observed pt. resting in bed with both eyes closed. Pt. is A/O x1; responds to name only. hand candle dipper is in placed. Pt. has a J CARLOS midline; intact, asymptomatic, patent, and saline locked. Pt. has a NGT currently feeding Glucerna 1.2 @ 55cc/hr. Aspiration precaution noted; HOB is at 30 degrees. Call light is within reach, bed is in the lowest position and locked. No acute distress noted at this time. Will continue plan of care.
--- NOTE | 2018-07-10 07:29 | Pulmonology Progress Note ---
Assessment/Plan Assessment/Plan ASSESSMENT Sepsis with high grade persistent MRSA bacteremia w/ septic emboli- Infective endocarditis - until proven otherwise- R/O probable PPM infection Gram negative bacteremia with Klebsiella, likely due to PNA PNA R pleural effusion Cardiomyopathy with EF 20-25% Pulmonary HTN Aortic stenosis. Failure to thrive with severe protein calorie malnutrition. CAD DM type 2 HTN L arm cellulitis MANUELA, likely due to sepsis and dehydration Alzheimer dementia. Acute metabolic encephalopathy Sacral decubitus ulcer, stage III, POA Severe dehydration Hypokalemia Dysphagia GI bleeding Anemia of chronic disease Abnormal LFT -resolved Pancytopenia PLAN OF CARE tele O2 HHN prn abx as per ID recs histoplasma, mycobacterial tuberculosis, TB test, fungal serologies so far all negative sputum culture E. coli ESB, L Klebsiella pneumonia ESBL blood culture persistent MRSA, also showed Klebsiella pneumonia ESBL on due to PNA, cleared, last blood blood culture still with persistent MRSA CT chest noted NELDA on hold, cardio follows CXR with large R pleural effusion , mild pulmonary vascular congestion CT of the left arm no evidence of acute osteomyelitis f/up with CXR 07/12 am, may consider thoracentesis if stable venous duplex BLE negative ECHO with EF 20-25% ,mild left ventricular hypertrophy and global left ventricular hypokinesis, RVSP of 77 c/w severe pulmonary HTN medical management of CHF -as per epidemiologist BP management, elevated when agitated, Clonidine prn for now until further cardio recs BS management wound care strict aspiration precaution NG tube feeding monitor renal parameters, lytes, correct lytes as needed, avoid nephrotoxic increase free H2O via G-tube for hypo NA dietary recs implemented in POC monitor H&H with goal to keep Hgb above 7 hemoglobin hematocrit remained in baseline 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 anemia workup c/w with anemia of chronic disease , ferritin 942 s/p 2 units of PRBC stool OB positive , CEA WNL GI follows hepatitis panel negative , HIV nonreactive LFT down to normal supportive care bowel regimen pain management case discussed and evaluated by supervising physician Subjective Allergies: Coded Allergies: No Known Allergies (Unverified , 08/10/13) Subjective remains confused trying to pull out her NGT no resp distress ST on tele Objective Last 24 Hour Vital Signs Date Time Temp Pulse Resp B/P (MAP) Pulse Ox O2 Delivery O2 Flow Rate FiO2 07/10/18 04:00 110 07/10/18 04:00 97.7 105 20 131/90 (104) 100 07/10/18 00:00 86 07/10/18 00:00 97.8 98 20 144/93 (110) 98 07/09/18 21:00 Nasal Cannula 2.0 07/09/18 20:00 82 07/09/18 20:00 98.0 84 20 106/69 (81) 93 07/09/18 19:35 93 Nasal Cannula 2.0 28 07/09/18 19:35 Nasal Cannula 2.0 28 07/09/18 16:04 96.6 97 20 150/77 (101) 93 07/09/18 16:00 91 07/09/18 13:31 98.8 07/09/18 12:00 106 07/09/18 12:00 96.3 96 20 161/91 (114) 99 07/09/18 09:00 Nasal Cannula 2.0 07/09/18 08:15 94 Nasal Cannula 2.0 28 07/09/18 08:15 Nasal Cannula 2.0 28 07/09/18 08:00 83 07/09/18 08:00 98.8 103 20 134/73 (93) 100 Intake and Output 07/09/18 07/10/18 18:59 06:59 Output Total 500 ml Balance -500 ml Output Urine Total 500 ml # Voids 2 # Bowel Movements 1 2 General Appearance: no acute distress, cachetic, other - awake, confused, bedridden Tristanian speaking female, HEENT: normocephalic, atraumatic, anicteric, other - NGT with TF Respiratory/Chest: no respiratory distress, no accessory muscle use Cardiovascular: normal peripheral pulses, regular rhythm, no JVD, tachycardia - ST on tele Abdomen: normal bowel sounds, soft, non tender, non distended Extremities: no edema, pedal pulses normal, other - LE spastic Neurologic/Psychiatric: no motor/sensory deficits - bedridden , alert - confused Musculoskeletal: atrophy - BLE Microbiology Date/Time Source Procedure Growth Status 07/07/18 23:15 Blood Blood Culture - Preliminary Staphylococcus Aureus Resulted Laboratory Tests 07/10/18 05:10: Stool Occult Blood [Pending] Current Medications Medications (Trade) Dose Ordered Sig/Yi Route PRN Reason Start Time Stop Time Status Last Admin Dose Admin Acetaminophen (Tylenol) 650 mg Q4H PRN NG Mild Pain/Temp > 100.5 07/09/18 00:30 07/29/18 16:29 07/10/18 03:54 Ceftaroline Fosamil 400 mg/ Sodium Chloride 55 ml @ 55 mls/hr Q12HR IV 07/09/18 09:00 07/14/18 08:59 07/09/18 21:39 Clonidine HCl (Catapres Tab) 0.1 mg Q8H PRN NG SBP>160mmHg 07/09/18 00:30 07/25/18 16:29 Daptomycin 600 mg/ Sodium Chloride 55 ml @ 100 mls/hr Q24H IV 07/09/18 18:00 07/13/18 17:59 07/09/18 17:31 Dextrose (Dextrose 50%) 25 ml Q30M PRN IV Hypoglycemia 07/08/18 22:45 07/24/18 13:30 Dextrose (Dextrose 50%) 50 ml Q30M PRN IV hypoglycemia 07/08/18 22:45 07/24/18 13:44 Insulin Aspart (NovoLOG) EVERY 6 HOURS SUBQ 07/09/18 00:00 07/24/18 16:29 07/10/18 05:59 Lansoprazole (Prevacid) 30 mg DAILY NG 07/09/18 09:00 08/02/18 08:59 07/09/18 10:17 Meropenem 1 gm/ Sodium Chloride 55 ml @ 110 mls/hr Q12H IVPB 07/09/18 06:00 07/12/18 17:59 07/10/18 05:59 Olanzapine (ZyPREXA) 2.5 mg BID NG 07/09/18 09:00 07/25/18 10:59 07/09/18 17:31 Ondansetron HCl (Zofran) 4 mg Q6H PRN IVP Nausea & Vomiting 07/08/18 22:30 07/25/18 16:29 Stormy Morel NP Jul 10, 2018 07:29
--- NOTE | 2018-07-10 08:01 | NUR ---
HAND-OFF: Report given to SOILA Davis.
[2018-07-10] MEDS: OLANZapine 2.5mg tab NG SCH ×2 (08:39→17:47)
[2018-07-10] MEDS: Ceftaroline 400 MG in NS 55 ML IV SCH ×2 (08:39→20:30)
[2018-07-10 08:45] LABS: HEMATOCRIT 26.6 % (37.0-47.0); HEMOGLOBIN 8.3 G/DL (12.0-16.0); MEAN CORPUSCULAR VOLUME 93 FL (80-99); PLATELET COUNT 153 K/UL (150-450); RED BLOOD COUNT 2.87 M/UL (4.20-5.40); RED CELL DISTRIBUTION WIDTH 19.9 % (11.6-14.8); WHITE BLOOD COUNT 6.5 K/UL (4.8-10.8)
--- NOTE | 2018-07-10 09:00 | NUR ---
NURSE NOTES: Ms. Adriel NP was at bedside of patient. Patient made attempts to reach ng tube. Order received for restraints.
[2018-07-10 09:15] LABS: ANION GAP 6 mmol/L (5-15); BLOOD UREA NITROGEN 30 mg/dL (7-18); CALCIUM 8.3 MG/DL (8.5-10.1); CARBON DIOXIDE 25 MMOL/L (21-32); CHLORIDE 119 MMOL/L (98-107); CREATININE 0.8 MG/DL (0.55-1.30); POTASSIUM 4.7 MMOL/L (3.5-5.1); SODIUM 150 MMOL/L (136-145)
--- NOTE | 2018-07-10 10:15 | Infectious Diseases Prog Note ---
Assessment/Plan Assessment/Plan 82 yo female with PMHx DM, CAD, Alzheimer dementia and Hip fracture who presents with dehydration and weakness. 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 Given normal appearing chest radiograph on 06/24/2018, these are overwhelmingly likely infectious/inflammatory in nature. Most likely represent septic pulmonary emboli. The possibility of mycobacterial infection should also be included, deemed less likely given absence of adenopathy but still possible. Differential considerations also include fungal infections, noninfectious inflammatory processes. Other noncavitary nodules are also demonstrated, with the same differential. Large right and [id number] left pleural effusions. Compressive atelectasis of the majority of the right lower lobe. Infiltrates seen in the right upper lobe. Bilateral pacemaker. Evidence of central venoocclusive disease. Wedge-shaped area of low-attenuation in the upper pole of the spleen, suspicious for infarct. -2d Echo (limited study due to contractures): no vegetations seen -06/27 Bcx 08/19MRSA; 06/28 Bcx 06/21 MRSA; 06/29 08/19 MRSA; 07/01 Bcx 08/19 MRSA; Bcx 08/19 GPC clusters 06/25/18 Blood Cx 08/19 MRSA 06/24/18 Wound Cx MRSA, ESBL E.coli (S ZOsyn), K. pna (S Zosyn) Neg: Histo, Blasto ab Gram neg bacteremia- ?source- UTI vs Mid mary infection vs from lungs -07/06 BCx 08/19 ESBL K.pna, 06/21 S.aureus r/o Probable PNA -07/06 CXR: Increased and now large right-sided pleural effusion, compared to prior study of 06/27/2018. Note that a large pleural effusion is evident on recent CT scan of 5 days earlier -sp cx ESBL K.pna and ESBL E>coli (both S Meropenem, Zosyn) L arm cellulitis from IV infiltration -CT L arm: Diffuse edema of the subcutaneous and deep fat and likely upper arm and forearm musculature. Given stated clinical history, possibly secondary to cellulitis and myositis, but could also be hemodynamic in origin. No discrete rim-enhancing collection to suggest abscess. No CT evidence of acute osteomyelitis. Leukocytosis, SP Low grade fever; SP Positive UA CXR neg Thrombocytopenia- HIT vs medication related Pressure ulcers Not infected Right hip fracture with hemiarthroplasty Feb 2018 DM HTN Sick sinus syndrome sp Pacemaker HLD CAD - SP WI and CABG Aortic stenosis. Pulmonary hypertension. Alzheimer dementia. PLAN - Continue Daptomycin #11 (abx d #16) and Ceftaroline #9 given persistent MRSA Bacteremia -monitor CPK -Switch Meropenem #/-14 to Ertapenem for ESBLbacteremia and PNA - repeat 2 sets of Bcx daily-q48hrs until clearance of bacteremia -06/30 SP Vancomycin #6 -06/30 SP Zosyn #4 -06/27 SP Cefepime #3 -Will need NELDA and removal of PPM for bacteremia clearance/source control if consistent with goals of care -plan for NELDA when more stable, probably next week -consider thoracentesis for Large R pleural effusion- have to consider also pleural effusion as source of continued bacteremia -f/u final AFB cx x3 - f/u repeat cultures - Monitor CBC and temps - wound care - Nutritional support -f/u cocci -Sx/ fu -L arm elevation Thank you for this consult. We will continue to follow the patient during this hospitalization. Subjective Allergies: Coded Allergies: No Known Allergies (Unverified , 08/10/13) Subjective ; afebrile still bacteremic on 2l NC plan for NELDA next week Objective Vital Signs Last 24 Hour Vital Signs Date Time Temp Pulse Resp B/P (MAP) Pulse Ox O2 Delivery O2 Flow Rate FiO2 07/10/18 08:39 169/86 07/10/18 08:00 98.2 110 22 169/86 (113) 100 07/10/18 04:00 110 07/10/18 04:00 97.7 105 20 131/90 (104) 100 07/10/18 00:00 86 07/10/18 00:00 97.8 98 20 144/93 (110) 98 07/09/18 21:00 Nasal Cannula 2.0 07/09/18 20:00 82 07/09/18 20:00 98.0 84 20 106/69 (81) 93 07/09/18 19:35 93 Nasal Cannula 2.0 28 07/09/18 19:35 Nasal Cannula 2.0 28 07/09/18 16:04 96.6 97 20 150/77 (101) 93 07/09/18 16:00 91 07/09/18 13:31 98.8 07/09/18 12:00 106 07/09/18 12:00 96.3 96 20 161/91 (114) 99 Height (Feet): 5 Height (Inches): 5.00 Weight (Pounds): 147 Objective Gen: Moaning, Awake but no following HEENT: NCAT, MMM, EOMI, PERRL LUNGS: CTAB, No W CARDS: RRR, S1, S2, No M/R/G, ABD: Soft, NT, ND, + BS Ext: Poor circulation to Ext (cool to touch) , Pulses 2+ B/L (DP, Rad): SKIN: Dry, No rashes, Large sacral ulcer. Mild odor no surrounding cellulitis, foot with eschar Microbiology Date/Time Source Procedure Growth Status 07/07/18 23:15 Blood Blood Culture - Preliminary Staphylococcus Aureus Resulted Laboratory Tests Test 07/10/18 05:10 07/10/18 07:40 Stool Occult Blood Pending White Blood Count 6.5 K/UL (4.8-10.8) Red Blood Count 2.87 M/UL (4.20-5.40) L Hemoglobin 8.3 G/DL (12.0-16.0) L Hematocrit 26.6 % (37.0-47.0) L Mean Corpuscular Volume 93 FL (80-99) Mean Corpuscular Hemoglobin 29.0 PG (27.0-31.0) Mean Corpuscular Hemoglobin Concent 31.3 G/DL (32.0-36.0) L Red Cell Distribution Width 19.9 % (11.6-14.8) H Platelet Count 153 K/UL (150-450) Mean Platelet Volume 10.1 FL (6.5-10.1) Neutrophils (%) (Auto) % (45.0-75.0) Lymphocytes (%) (Auto) % (20.0-45.0) Monocytes (%) (Auto) % (1.0-10.0) Eosinophils (%) (Auto) % (0.0-3.0) Basophils (%) (Auto) % (0.0-2.0) Neutrophils % (Manual) Pending Lymphocytes % (Manual) Pending Platelet Estimate Pending Platelet Morphology Pending Sodium Level 150 MMOL/L (136-145) H Potassium Level 4.7 MMOL/L (3.5-5.1) Chloride Level 119 MMOL/L (98-107) H Carbon Dioxide Level 25 MMOL/L (21-32) Anion Gap 6 mmol/L (5-15) Blood Urea Nitrogen 30 mg/dL (7-18) H Creatinine 0.8 MG/DL (0.55-1.30) Estimat Glomerular Filtration Rate mL/min (>60) Glucose Level 139 MG/DL (74-106) H Calcium Level 8.3 MG/DL (8.5-10.1) L Current Medications Medications (Trade) Dose Ordered Sig/Yi Route PRN Reason Start Time Stop Time Status Last Admin Dose Admin Acetaminophen (Tylenol) 650 mg Q4H PRN NG Mild Pain/Temp > 100.5 07/09/18 00:30 07/29/18 16:29 07/10/18 08:40 Ceftaroline Fosamil 400 mg/ Sodium Chloride 55 ml @ 55 mls/hr Q12HR IV 07/09/18 09:00 07/14/18 08:59 07/10/18 08:39 Clonidine HCl (Catapres Tab) 0.1 mg Q8H PRN NG SBP>160mmHg 07/09/18 00:30 07/25/18 16:29 07/10/18 08:39 Daptomycin 600 mg/ Sodium Chloride 55 ml @ 100 mls/hr Q24H IV 07/09/18 18:00 07/13/18 17:59 07/09/18 17:31 Dextrose (Dextrose 50%) 25 ml Q30M PRN IV Hypoglycemia 07/08/18 22:45 07/24/18 13:30 Dextrose (Dextrose 50%) 50 ml Q30M PRN IV hypoglycemia 07/08/18 22:45 07/24/18 13:44 Insulin Aspart (NovoLOG) EVERY 6 HOURS SUBQ 07/09/18 00:00 07/24/18 16:29 07/10/18 05:59 Lansoprazole (Prevacid) 30 mg DAILY NG 07/09/18 09:00 08/02/18 08:59 07/10/18 08:40 Meropenem 1 gm/ Sodium Chloride 55 ml @ 110 mls/hr Q12H IVPB 07/09/18 06:00 07/12/18 17:59 07/10/18 05:59 Olanzapine (ZyPREXA) 2.5 mg BID NG 07/09/18 09:00 07/25/18 10:59 07/10/18 08:39 Ondansetron HCl (Zofran) 4 mg Q6H PRN IVP Nausea & Vomiting 07/08/18 22:30 07/25/18 16:29 Roseann Bardales M.D. Jul 10, 2018 10:14
[2018-07-10] MEDS ORDERED: LORazepam Inj 2mg/ml 1ml IV ONE (10:30)
--- NOTE | 2018-07-10 10:35 | NUR ---
NURSE NOTES: Notified Ms. Adriel NP regarding sodium 150. Orders were entered.
[2018-07-10] MEDS ORDERED: Albuterol/Ipratropium 3ml neb HHN PRN (10:45)
--- NOTE | 2018-07-10 17:37 | Internal Med Progress Note ---
Subjective Date of Service: Jul 10, 2018 Physician Name Aquilino Matthews Attending Physician Carlos Alberto Berkowitz MD Current Medications Medications (Trade) Dose Ordered Sig/Yi Route PRN Reason Start Time Stop Time Status Last Admin Dose Admin Acetaminophen (Tylenol) 650 mg Q4H PRN NG Mild Pain/Temp > 100.5 07/09/18 00:30 07/29/18 16:29 07/10/18 08:40 Albuterol/ Ipratropium (Albuterol/ Ipratropium) 3 ml Q4HRT PRN HHN sob 07/10/18 10:45 07/15/18 10:44 Ceftaroline Fosamil 400 mg/ Sodium Chloride 55 ml @ 55 mls/hr Q12HR IV 07/09/18 09:00 07/14/18 08:59 07/10/18 08:39 Clonidine HCl (Catapres Tab) 0.1 mg Q8H PRN NG SBP>160mmHg 07/09/18 00:30 07/25/18 16:29 07/10/18 08:39 Daptomycin 600 mg/ Sodium Chloride 55 ml @ 100 mls/hr Q24H IV 07/09/18 18:00 07/13/18 17:59 07/09/18 17:31 Dextrose (Dextrose 50%) 25 ml Q30M PRN IV Hypoglycemia 07/08/18 22:45 07/24/18 13:30 Dextrose (Dextrose 50%) 50 ml Q30M PRN IV hypoglycemia 07/08/18 22:45 07/24/18 13:44 Ertapenem 1 gm/ Sodium Chloride 55 ml @ 110 mls/hr Q24H IVPB 07/10/18 18:00 07/15/18 17:59 Insulin Aspart (NovoLOG) EVERY 6 HOURS SUBQ 07/09/18 00:00 07/24/18 16:29 07/10/18 11:30 Lansoprazole (Prevacid) 30 mg DAILY NG 07/09/18 09:00 08/02/18 08:59 07/10/18 08:40 Olanzapine (ZyPREXA) 2.5 mg BID NG 07/09/18 09:00 07/25/18 10:59 07/10/18 08:39 Ondansetron HCl (Zofran) 4 mg Q6H PRN IVP Nausea & Vomiting 07/08/18 22:30 07/25/18 16:29 Allergies: Coded Allergies: No Known Allergies (Unverified , 08/10/13) ROS Limited/Unobtainable: Yes Subjective 82 YO F admitted with dehydration and hypoxia. Now sepsis. Cover for Int Aakash- Dr Berkowitz. Continues on nasal canula Objective Last Vital Signs Date Time Temp Pulse Resp B/P (MAP) Pulse Ox O2 Delivery O2 Flow Rate FiO2 07/10/18 12:00 98.3 105 22 134/45 (74) 100 07/10/18 09:00 Nasal Cannula 2.0 07/09/18 19:35 28 Laboratory Tests Test 07/10/18 05:10 07/10/18 07:40 Stool Occult Blood Negative (NEGATIVE) White Blood Count 6.5 K/UL (4.8-10.8) Red Blood Count 2.87 M/UL (4.20-5.40) L Hemoglobin 8.3 G/DL (12.0-16.0) L Hematocrit 26.6 % (37.0-47.0) L Mean Corpuscular Volume 93 FL (80-99) Mean Corpuscular Hemoglobin 29.0 PG (27.0-31.0) Mean Corpuscular Hemoglobin Concent 31.3 G/DL (32.0-36.0) L Red Cell Distribution Width 19.9 % (11.6-14.8) H Platelet Count 153 K/UL (150-450) Mean Platelet Volume 10.1 FL (6.5-10.1) Neutrophils (%) (Auto) % (45.0-75.0) Lymphocytes (%) (Auto) % (20.0-45.0) Monocytes (%) (Auto) % (1.0-10.0) Eosinophils (%) (Auto) % (0.0-3.0) Basophils (%) (Auto) % (0.0-2.0) Differential Total Cells Counted 100 Neutrophils % (Manual) 84 % (45-75) H Lymphocytes % (Manual) 9 % (20-45) L Monocytes % (Manual) 7 % (1-10) Eosinophils % (Manual) 0 % (0-3) Basophils % (Manual) 0 % (0-2) Band Neutrophils 0 % (0-8) Platelet Estimate Adequate Platelet Morphology Normal Hypochromasia 1+ Anisocytosis 1+ Sodium Level 150 MMOL/L (136-145) H Potassium Level 4.7 MMOL/L (3.5-5.1) Chloride Level 119 MMOL/L (98-107) H Carbon Dioxide Level 25 MMOL/L (21-32) Anion Gap 6 mmol/L (5-15) Blood Urea Nitrogen 30 mg/dL (7-18) H Creatinine 0.8 MG/DL (0.55-1.30) Estimat Glomerular Filtration Rate mL/min (>60) Glucose Level 139 MG/DL (74-106) H Calcium Level 8.3 MG/DL (8.5-10.1) L Microbiology Date/Time Source Procedure Growth Status 07/07/18 23:15 Blood Blood Culture - Preliminary Staphylococcus Aureus Resulted Intake and Output 07/09/18 07/10/18 19:00 07:00 Output Total 500 ml Balance -500 ml Output Urine Total 500 ml # Voids 2 # Bowel Movements 1 2 Objective Objective General: No acute distress, awake and less responsive, Sleepy, cachectic. HEENT: NCAT, sclera anicteric, PERRL, NG tube. Neck: Supple, no significant jugular venous distention, Lungs: Non-rebreather mask; Poor inspiratory effort, decreased air in the bases , Bilateral Wheeze and Rales. Heart: Regular rate and rhythm, normal S1/S2, no murmur. Abdomen: soft, nontender, nondistended. Normoactive bowel sounds. / Rectal: Refused and deferred. Extremities: No Cyanosis , No clubbing, Left UE edema. Lateral lower extremity / feet dressing intact. Neuro: A&O x 1, Able to move all extremities Skin: warm, no rashes or lesions, ecchymosis in bilateral upper extremity noted. Assessment/Plan Assessment/Plan Assessment/Plan Assessment/Plan 1. Sepsis / METHACILLIN RESISTANT STAPHYLOCOCCUS AUREUS bacteremia, lactic acidosis. 2. Failure to thrive with severe protein calorie malnutrition. 3. Coronary artery disease. 4. Diabetes, type 2. 5. Hypertension. 6. Sick sinus syndrome. 7. Hypercholesterolemia. 8. Aortic stenosis. 9. Pulmonary hypertension. 10. Alzheimer dementia. 11. Acute tubular necrosis/acute kidney injury most likely secondary to dehydration and sepsis. 12. Sacral decubitus ulcer, stage III 13. Severe dehydration 14. Hypokalemia. 15. Abnormal liver function test 16. Anemia/thrombocytopenia 17. Bilateral pneumonia ?septic emboli? TREATMENT: 1. Patient on broad spectrum antibiotics with meropenem and ceftaroline. Will require transesophageal echocardiogram to R/O endocarditis-see ID note 2. Coronary artery disease. The patient is status post coronary artery bypass graft in 2017. 3. Diabetes, type 2. The patient has been started on NovoLog sliding scale. 4. Hypertension. The patient is to continue on atenolol and losartan as above. 5. Sick sinus syndrome. The patient is status post pacemaker implantation. 6. Hypercholesterolemia. Continue simvastatin as above. 7. Aortic stenosis. 8. Pulmonary hypertension. 9. Alzheimer dementia. 10. Anemia/thrombocytopenia-S/P 1 unit PRBC on 06/28/18. Heme/Onc consult. Hold heparin 11. Septic pulmonary emboli-await NELDA on Thursday07/06/18-see cardiology note- needs NG removed for NELDA-Discussed with Dr Oliver Restart tube feeding at rate of 45 cc/hr. CODE STATUS is full code as per [facility]LET DVT prophylaxis: D/C Heparin subcu due to thrombocytopenia Aquilino Matthews MD Jul 10, 2018 17:37
[2018-07-10] MEDS ORDERED: Ertapenem 1 GM in NS 55 ML IVPB SCH (18:00)
[2018-07-10] MEDS: DAPTOmycin 600 MG in NS 55 ML IV SCH (18:33)
--- NOTE | 2018-07-10 19:56 | NUR ---
HAND-OFF: Report given to SOILA Orozco.
--- NOTE | 2018-07-10 19:58 | NUR ---
NURSE NOTES: Received report from SOILA Davis. Patient asleep, breathing even and unlabored on 2 L via NC. Per Ryan, pt AO X1, Singaporean speaking only and confused. On NGT connected to Glucerna 1.2 at 55 ml/hr, tolerating fairly, HOB elevated at all times. Midline on R upper arm, 2 lumen, patent and intact. Pt on P200 mattress for multiple wounds, turned and repositioned at least q 2 hours and as tolerated. Sinus rhythm on media monitor. Bed at lowest position, call light within reach. Will continue plan of care.
--- NOTE | 2018-07-10 22:10 | Cardiology Progress Note ---
Assessment/Plan Assessment/Plan remains very ill and not a candidate for any procedures, will follow Subjective Subjective the patient was sedated after she tried to pull her NG tube and is very lethargic Objective Last 24 Hour Vital Signs Date Time Temp Pulse Resp B/P (MAP) Pulse Ox O2 Delivery O2 Flow Rate FiO2 07/10/18 20:36 Nasal Cannula 2.0 28 07/10/18 20:36 92 20 Nasal Cannula 2.0 28 07/10/18 20:36 95 Nasal Cannula 2.0 28 07/10/18 20:00 89 07/10/18 20:00 98.3 89 20 157/76 (103) 96 07/10/18 16:00 98.3 115 22 155/64 (94) 97 07/10/18 15:57 94 07/10/18 12:00 98.3 105 22 134/45 (74) 100 07/10/18 11:48 95 07/10/18 09:10 98.2 07/10/18 09:00 Nasal Cannula 2.0 07/10/18 08:39 169/86 07/10/18 08:00 98.2 110 22 169/86 (113) 100 07/10/18 07:42 86 07/10/18 04:00 110 07/10/18 04:00 97.7 105 20 131/90 (104) 100 07/10/18 00:00 86 07/10/18 00:00 97.8 98 20 144/93 (110) 98 General Appearance: lethargic, other - very ill appearing Neck: supple, no JVD Rhythm: NSR Cardiovascular: tachycardia, systolic murmur Respiratory/Chest: crackles/rales Abdomen: no mass Extremities: other - anasarca due to malnutrition Neurologic: disoriented Intake and Output 07/09/18 07/10/18 19:00 07:00 Output Total 500 ml Balance -500 ml Output Urine Total 500 ml # Voids 2 # Bowel Movements 1 2 Laboratory Tests Test 07/10/18 05:10 07/10/18 07:40 Stool Occult Blood Negative (NEGATIVE) White Blood Count 6.5 K/UL (4.8-10.8) Red Blood Count 2.87 M/UL (4.20-5.40) L Hemoglobin 8.3 G/DL (12.0-16.0) L Hematocrit 26.6 % (37.0-47.0) L Mean Corpuscular Volume 93 FL (80-99) Mean Corpuscular Hemoglobin 29.0 PG (27.0-31.0) Mean Corpuscular Hemoglobin Concent 31.3 G/DL (32.0-36.0) L Red Cell Distribution Width 19.9 % (11.6-14.8) H Platelet Count 153 K/UL (150-450) Mean Platelet Volume 10.1 FL (6.5-10.1) Neutrophils (%) (Auto) % (45.0-75.0) Lymphocytes (%) (Auto) % (20.0-45.0) Monocytes (%) (Auto) % (1.0-10.0) Eosinophils (%) (Auto) % (0.0-3.0) Basophils (%) (Auto) % (0.0-2.0) Differential Total Cells Counted 100 Neutrophils % (Manual) 84 % (45-75) H Lymphocytes % (Manual) 9 % (20-45) L Monocytes % (Manual) 7 % (1-10) Eosinophils % (Manual) 0 % (0-3) Basophils % (Manual) 0 % (0-2) Band Neutrophils 0 % (0-8) Platelet Estimate Adequate Platelet Morphology Normal Hypochromasia 1+ Anisocytosis 1+ Sodium Level 150 MMOL/L (136-145) H Potassium Level 4.7 MMOL/L (3.5-5.1) Chloride Level 119 MMOL/L (98-107) H Carbon Dioxide Level 25 MMOL/L (21-32) Anion Gap 6 mmol/L (5-15) Blood Urea Nitrogen 30 mg/dL (7-18) H Creatinine 0.8 MG/DL (0.55-1.30) Estimat Glomerular Filtration Rate mL/min (>60) Glucose Level 139 MG/DL (74-106) H Calcium Level 8.3 MG/DL (8.5-10.1) L Microbiology Date/Time Source Procedure Growth Status 07/07/18 23:15 Blood Blood Culture - Preliminary Staphylococcus Aureus Resulted Karol Oliver MD Jul 10, 2018 22:10
--- NOTE | 2018-07-10 22:10 | NUR ---
NURSE NOTES: Patient asleep, on 2 L via NC, shows sinus rhythm at 80s in the cardiac cath tech. Pt noted soiled, cleaned with help of other 2 nurses. Pt with BM, cleaned and dressing on sacral area changed d/t soilage. Turned and repositioned, HOB elevated. Made comfortable, call light within reach. Will continue to monitor.
--- NOTE | 2018-07-10 23:20 | NUR ---
NURSE NOTES: Patient in bed, heart rate at 60 in property assessment monitor. Assessed pt, respiration slow and shallow, patient pale and not responsive, called code blue. Patient was intubated and transferred to ICU. Dr. Berkowitz and Dr. Oliver made aware.
--- NOTE | 2018-07-10 23:20 | NUR ---
CODE BLUE: See Code sheet which remains on paper.responded to the code blue,regained pulse and moved to icu at 2338
--- NOTE | 2018-07-10 23:40 | NUR ---
NURSE NOTES: Pt arrived via hospital bed from 208-2 post arrest, intubated, On the process of connecting her to the bedside monitor, pt lost pulses. When connected to the monitor it showed Vfib. Kamari choudhary announced. See Code blue sheet.
--- NOTE | 2018-07-10 23:41 | NUR ---
CODE BLUE: See Code sheet which remains on paper.arrived in icu-b,david choudhary called for vfib
[2018-07-10] MEDS ORDERED: Tubing IV Secondary IV ONE (23:51)
--- NOTE | 2018-07-10 23:52 | NUR ---
NURSE NOTES: Code blue outcome unsuccessful. Pronounced by Dr Sagastume. Primary nurse called the family but there was no answer. she also informed Dr Berkowitz.
--- NOTE | 2018-07-11 00:10 | NUR ---
NURSE NOTES: Called primary number of daughter (Celine Bernal), no answer, called X 2, left message. Spoke with Dr. Berkowitz and informed that pt in ICU, also made him aware that unable to get in hold of family, said ok.
--- NOTE | 2018-07-11 00:35 | NUR ---
NURSE NOTES: Called the family once again and this time was able to talk to Celine Bernal, daughter. According to her she cannot come tonight and will be here first thing in the morning. Procedure explained. No belongings, no jewelry noted on the patient. Post mortem done
--- NOTE | 2018-07-11 01:58 | Emergency Room Report ---
History of Present Illness General Chief Complaint: General Complaint Source: Medical Record Present Illness HPI This is an 82-year-old female who was admitted for dehydration and altered mental status. She was admitted to telemetry. A CODE BLUE was called and responded. According to nursing staff, they just finished cleaning her she went into cardiac arrest and became unresponsive. There was no pulse. CPR was done. On my arrival, she already had one round of epinephrine. I proceeded to intubate her and she had a total of 4 rounds of epinephrine. She did get a pulse back and was transferred to the ICU. In the ICU she coded again. She had an episode of V. tach and was defibrillated once. This put her into a PEA rhythm. CPR was done and she had a total of 3 rounds of epinephrine. She was shocked again. There was no pulse and pronounced her at 11:52 PM. Please see the code sheet for full information. Allergies: Coded Allergies: No Known Allergies (Unverified , 08/10/13) Patient History Past Medical History: see triage record, old chart reviewed Past Surgical History: pacemaker, other Pertinent Family History: none Social History: Denies: smoking Now: No Immunizations: other Reviewed Nursing Documentation: PMH: Agreed; PSxH: Agreed Nursing Documentation-PMH Past Medical History: No History, Except For Hx Cardiac Problems: Yes - HTN, PACEMAKER L SIDE, 3 BYPASS SUGERIES Hx Hypertension: Yes Hx Pacemaker: Yes - left and right PMs Hx Asthma: Yes Hx Diabetes: Yes - TYPE 2 Hx Cancer: No - UNKNOWN Hx Gastrointestinal Problems: No - UNKNOWN, PT IS CONFUSED Hx Neurological Problems: Yes - DEMENTIA, ALHZEIMERS, SCHIZOPHRENIA Hx Cerebrovascular Accident: Yes - CVA Hx Dementia: Yes Hx Memory Loss: Yes Review of Systems All Other Systems: limited - Secondary to medical condition Physical Exam Vital Signs Date Time Temp Pulse Resp B/P (MAP) Pulse Ox O2 Delivery O2 Flow Rate FiO2 07/07/18 07:47 64 07/07/18 08:00 98.1 14 139/68 (91) 100 07/07/18 08:00 Non-Rebreather 15.0 07/09/18 08:15 28 no pulse without CPR, no spontaneous respiration General Appearance: severe distress ENT: other - Oropharynx is dry. There was a large Congealed mucus in her oropharynx When Iintubate her Neck: supple Respiratory: crackles, other - No spontaneous respiration Cardiovascular #1: other - No spontaneous cardiac activities Gastrointestinal: soft, other - Distended Musculoskeletal: other - No edema Neurologic: other - No response Skin: warm/dry Procedures Critical Care Time Critical Care Time Critical care is mandated in this patient who presented with cardiac arrest. Patient require my urgent intervention to attenuate the risks of metabolic collapse which may lead to cardiovascular collapse and . Critical care time is 35 minutes excluding any reportable procedure. Critical care time included evaluation, multiple reevaluation, looking at old charts, interpreting laboratory and diagnostic data, discussing case with patient and family and consultants, and charting. CPR/Code Blue CPR/Code Blue Narrative please see code sheet for full list of medications and time given. During the first code, she received 4 rounds of epinephrine. The second code, she received 3 rounds of epinephrine and 2 rounds of defibrillation. Intubation Intubation : Consent: Emergent Intubation Method: orotracheal Tube Size (cm): 7.5 Breath Sounds after Intubation: equal Intubation Complications: no complications Post Intubation Xray: No Attempts: One Patient Tolerated: Well Complications: None Progress patient coded prior to chest x-ray being done. on exam, b/l BS equal. Good CO2 color change. Medical Decision Making Diagnostic Impression: Primary Impression: Cardiac arrest Additional Impression: Ventricular tachycardia ER Course Patient with cardiac arrest. No spontaneous return of rhythm after her second code. No pulse even with her pacemaker. Patient pronounced at 1152pm. Dr. Berkowitz notified. Last Vital Signs Date Time Temp Pulse Resp B/P (MAP) Pulse Ox O2 Delivery O2 Flow Rate FiO2 07/10/18 23:40 0 0/0 (0) 07/10/18 21:00 Nasal Cannula 2.0 07/10/18 20:36 28 07/10/18 20:36 20 07/10/18 20:36 95 07/10/18 20:00 98.3 Disposition: Condition: Referrals: Aquilino Matthews MD (PCP) Richy Sagastume MD Jul 11, 2018 01:58
--- NOTE | 2018-07-12 13:36 | Discharge Summary ---
Discharge Summary Discharge Summary _ SUMMARY DATE OF ADMISSION: 06/24/2018 DATE OF EXPIRATION: 07/10/2018 REASON FOR ADMISSION: 82 years old female with past medical history of cerebrovascular accident, CAD, s/p TN and CABG, hypertension, pacemaker due to SSS, diabetes mellitus, pulmonary hypertension, aortic stenosis , Alzheimer dementia, was sent from the [facility] for evaluation due to generalized malaise and decreased oral intake. Vital signs were stable. Laboratory workup revealed leukocytosis WBC 14.6, hemoglobin 11.3, hematocrit 36.4. Potassium 5.2. BUN 47, creatinine 1.5. Lactic acid 3.7. Troponin - 0.131. EKG revealed sinus rhythm , no acute ischemic changes. Albumin 2.1. Elevated LFT with AST 204 , ALT 85, lipase 58. Chest x-ray revealed no acute cardiopulmonary pathology. X-ray of the left elbow revealed no dislocation , no soft tissue swelling , no fracture. Urinalysis revealed pyuria, but no evidence of bacteria. Patient was started on IV hydration and was admitted for further management. CONSULTANTS: supervisor matrix Dr. Oliver pulmonary Dr. Mancera ID specialist Dr. Rodrigez GI specialist Dr. Wallace audit partner/oncologist Dr. Bennett psychiatrist Dr Marroquin surgeon Dr Lopez [facility] COURSE: Patient was admitted to telemetry floor. Patient pancultured, started on IV fluids and empiric antibiotic. Initial blood culture revealed MRSA. ID specialist closely followed. Repeated blood culture on 06/27, 06/28, 06/29, 06/1413- and 07/03 continued to demonstrate persistent high-grade MRSA growth. Patient subsequently undergone echocardiogram on 06/27 which revealed global left ventricular hypokinesis with mild left ventricular enlargement. Left ventricular ejection fraction estimated to be 20-25% with mild left ventricular hypertrophy. Aortic stenosis noted. No evidence of vegetation. Right ventricular systolic pressure of 77 consistent with severe pulmonary hypertension. Mechanical Handyman and siding stapler closely followed. Supplemental oxygen provided as needed to keep pulse oximetry above 92%. Pulmonary toilet provided as needed. Venous duplex bilateral lower extremity revealed recanalized chronic thrombus on the right lower extremity, but no evidence of acute DVT. Patient subsequently undergone CT of the chest ,abdomen, and pelvis. CT of the chest 07/01 revealed multiple bilateral mostly upper lobe cavitary pulmonary parenchymal lesions. Given normal appearing chest radiograph on 06/24/2018, these are overwhelmingly likely infectious/inflammatory in nature. Most likely represent septic pulmonary emboli. The possibility of mycobacterial infection should also be included, but deemed less likely , given absence of adenopathy , but still possible. Other noncavitary nodules are also demonstrated, with the same differential Large right and [id number] left pleural effusions Compressive atelectasis of the majority of the right lower lobe. Infiltrates were seen in the right upper lobe Anasarca, with, in addition to the above mentioned pleural fluid, ascites and generalized severe edema of the subcutaneous, mediastinal, abdominal and pelvic fat Ectatic but not frankly dilated bilateral pulmonary arteries, there was possibly pulmonary arterial hypertension Patient was placed on respiratory isolation to rule out Mycobacterial infection . Sputum culture revealed Klebsiella pneumonia ESBL and E. coli ESBL. AFB smear x3 was negative. TB test was negative , M Tb by PCR fwas negative. Fungal serology was negative. Respiratory isolation discontinued. Per ID specialist, high-grade persistent MRSA bacteremia was due to septic emboli and presumed infective endocarditis, until proven otehrwise. Antibiotic regimen optimized as per infectious disease recommendation. Leukocytosis resolved. Mechanical Handyman closely follow. Initially NELDA was planned to rule out vegetation , however patient remained very ill and was not a candidate for any invasive procedure as per supervisor matrix. Patient also undergone CT of the left upper extremity due to clinical evidence of cellulitis. CT results revealed no evidence of acute osteomyelitis. Blood culture 07/06 revealed Klebsiella pneumonia ESBL along with MRSA. Afterwards, blood culture continued to show MRSA only, until the last blood culture on , which preliminary showed no growth. According to ID specialist , gram-negative bacteremia was likely due to pneumonia. Patient was on extensive antibiotic regimen as per infectious disease recommendation. No leukocytosis , no fevers. Patient continued to have a pleural effusion , however was unstable to any invasive procedure and was managed conservatively. GI consult was requested for coffee-ground emesis through the NG tube . Hgb 5.9 and hematocrit 18.9 on 07/01. EGD tentatively was scheduled for the next day. Patient started on the Protonix drip. One dose of vitamin K provided. Tube feeding stopped, and NG tube was connected to low intermittent suction. Anemia workup initiated . Stool for for occult blood was positive. Patient received total of 2 units of packed red blood cells. Hemoglobin and hematocrit were closely monitored with goal to keep hemoglobin above 7. Anemia workup was consistent with anemia of chronic disease. Ferritin 942 . Roll Hand followed. Hemoglobin and hematocrit stabilized, no further episode of GI bleeding. Nutrition restarted via NG tube with strict aspiration reflux precaution. Patient noted to have elevated LFT. LFT trended down to normal. CEA was within normal limits. Patient demonstrated severe thrombocytopenia with lowest platelet count of 20. According to audit partner, thrombocytopenia was likely due to sepsis and lactic acidosis. Heparin discontinued. Heparin-induced antibody screen still pending. Platelet count was closely monitored. Thrombocytopenia resolved, last platelet count - 153. Hepatitis panel was negative. HIV was nonreactive. Supportive care provided. Bowel regimen instituted. Pain management was addressed as needed. EGD was on hold , until respiratory status stabilized. Wound care provided as per surgeon recommendation. Blood sugar was closely monitored. Renal parameters and electrolytes were closely monitored, electrolytes corrected as needed , and nephrotoxins were avoided. Acute kidney injury resolved. BUN 30, creatinine 0.8. Free water was increased via G-tube for elevated sodium. Dietary recommendation regarding protein supplements implemented in plan of care. Patient arrested on and was emergently intubated. Patient with evidence of ventricular tachycardia. ACLS protocol initiated . Unfortunately old cardiopulmonary resuscitative efforts were futile. Patient was pronounced at 11: 52 07/10 . 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 Rule out probable permanent pacemaker infection Gram-negative bacteremia with Klebsiella pneumonia ESBL, likely due to pneumonia Klebsiella pneumonia ESBL pneumonia Right pleural effusion Cardiomyopathy with ejection fraction 20-25% Pulmonary hypertension Aortic stenosis Sick sinus syndrome, history of permanent pacemaker implantation Failure to thrive with severe protein calorie malnutrition Coronary artery disease , status post TN and CABG Diabetes mellitus type 2 Hypertension Hyperlipidemia Left arm cellulitis Acute kidney injury likely due to sepsis and dehydration Acute metabolic encephalopathy Severe dehydration Dysphagia GI bleeding Alzheimer's dementia Sacral decubitus ulcer , stage III , present on admission Anemia of chronic disease Abnormal LFT -resolved Pancytopenia with severe thrombocytopenia- most likely related to sepsis lactic acidosis. Stormy Morel NP Jul 12, 2018 13:36
--- NOTE | 2018-07-13 14:42 | Diagnostic Imaging Report ---
APPROVED REPORT CPT Code: 33732 Present Symptoms Comments: Infection LEFT UPPER EXTREMITY (Deep and superficial venous system): Imaging reveals patency of the internal jugular, subclavian, axillary and brachial veins. The cephalic and basilic veins are also patent. Doppler indicates normal spontaneous flow within these venous segments.
--- NOTE | 2018-07-13 14:42 | Diagnostic Imaging Report ---
APPROVED REPORT CPT Code: 15371 Symptoms Other : Infection Comments Edema LEFT UPPER EXTREMITY: Imaging of the subclavian, axillary, brachial, radial and ulnar arteries is within normal limits. There is no evidence of stenosis or occlusions within these segments. The Doppler waveforms of the left upper extremity are multiphasic, consistent with normal inflow to the left upper extremity.
== END 2018-07-10 23:52 | disposition expired | DRG 871 ==
LOC: EDBD 11:53 → EMR 12:45 → 4E 13:03 → EDBEDREQ 13:27 → 2E 15:55 → EDBEDREQ 15:56 → 2E 20:24 → EDBEDREQ 20:24 → 2E 23:29 → 4E 06-25 12:44 → 2W 06-27 21:15 → 2E 07-02 14:15 → 2W 07-05 15:36 → 2E 07-08 21:55 → ICU 07-10 22:35
PROC: B548ZZA Ultrasonography of Superior Vena Cava, Guidance (ICD-10-PCS; principal; 2018-06-30)
PROC: 02HV33Z Insertion of Infusion Device into Superior Vena Cava, Percutaneous Approach (ICD-10-PCS; principal; 2018-06-30)
PROC: 0BH17EZ Insertion of Endotracheal Airway into Trachea, Via Natural or Artificial Opening (ICD-10-PCS; 2018-07-10)
DX: A41.02 Sepsis due to Methicillin resistant Staphylococcus aureus (principal); L89.153 Pressure ulcer of sacral region, stage 3; N17.0 Acute kidney failure with tubular necrosis; E43 Unspecified severe protein-calorie malnutrition; I21.A1 Myocardial infarction type 2; G93.41 Metabolic encephalopathy; I26.90 Septic pulmonary embolism without acute cor pulmonale; J15.0 Pneumonia due to Klebsiella pneumoniae; E87.2 Acidosis; I50.20 Unspecified systolic (congestive) heart failure; I38 Endocarditis, valve unspecified; N39.0 Urinary tract infection, site not specified; K62.5 Hemorrhage of anus and rectum; D61.818 Other pancytopenia; I76 Septic arterial embolism; L03.114 Cellulitis of left upper limb; T80.29XA Infection following other infusion, transfusion and therapeutic injection, initial encounter; J90 Pleural effusion, not elsewhere classified; K92.0 Hematemesis; I47.2 Ventricular tachycardia; E87.6 Hypokalemia; E86.0 Dehydration; Z95.0 Presence of cardiac pacemaker; Z96.641 Presence of right artificial hip joint; E11.9 Type 2 diabetes mellitus without complications; I11.0 Hypertensive heart disease with heart failure; I49.5 Sick sinus syndrome; I25.10 Atherosclerotic heart disease of native coronary artery without angina pectoris; Z95.1 Presence of aortocoronary bypass graft; I25.2 Old myocardial infarction; I27.20 Pulmonary hypertension, unspecified; G30.9 Alzheimer's disease, unspecified; F02.80 Dementia in other diseases classified elsewhere, unspecified severity, without behavioral disturbance, psychotic disturbance, mood disturbance, and anxiety; R62.7 Adult failure to thrive; Z68.24 Body mass index [BMI] 24.0-24.9, adult; E78.00 Pure hypercholesterolemia, unspecified; I35.0 Nonrheumatic aortic (valve) stenosis; D69.6 Thrombocytopenia, unspecified; D64.9 Anemia, unspecified; Z74.01 Bed confinement status; R13.10 Dysphagia, unspecified; K52.9 Noninfective gastroenteritis and colitis, unspecified
CPT/HCPCS: 36415; 36569; 36600; 71045; 71260; 74018; 74177; 76700; 76937; 80048; 80053; 80076; 80202; 81001; 82248; 82270; 82378; 82550; 82553; 82728; 82746; 82803; 82947; 82962; 83010; 83540; 83550; 83605; 83615; 83690; 83735; 84100; 84133; 84300; 84484; 84550; 85007; 85025; 85384; 85610; 85651; 85730; 86140; 86171; 86580; 86612; 86635; 86705; 86709; 86803; 86850; 86900; 86901; 86920; 87040; 87070; 87081; 87116; 87181; 87205; 87340; 87556; 89050; 92950; 93005; 93306; 93926; 93970; 93971; 94640; 94664; 94760; 96374; 99285; J0712; J1815; J3430; J7620; J8499